=== PATIENT | male | born 1970 | race Caucasian/White ===

== ENCOUNTER 2018-02-06 09:29 | Emergency (ER) | payer OTHER ==
[~2018-02-06] VITALS: Ht 193 cm; Wt 72.5 kg
[~2018-02-06 09:29] MED LIST: NALTREXONE PO; RISP4TAB2 PO; TRAZ50TA35 PO
[2018-02-06 09:45] VITALS: TEMP 36.5; Ht 193 cm; Wt 72.5 kg
[2018-02-06] MEDS ORDERED: LORAZEPAM 2 MG/ML 1 ML VIAL IV STA (09:51)
[2018-02-06] MEDS ORDERED: DIPHTHERIA/TETANUS/PERTUSSIS 0.5 ML SYR/VIAL IM. ONE (10:00)
[2018-02-06] MEDS ORDERED: AMPICILLIN/SULBACTAM SOD INJ 3,000 MG in SODIUM CHLORIDE 0.9% 100ML 100 ML IV ONE (10:00)
--- NOTE | 2018-02-06 10:23 | DIAGNOSTIC IMAGING REPORT ---
CHEST ONE VIEW PORTABLE CLINICAL HISTORY: Agitation. COMPARISON STUDY: Chest radiograph March 15, 2010. FINDINGS: Multiple old right rib fractures are noted. Lung volumes are normal. There is no consolidation or evidence for pulmonary edema. Cardiac size is normal. Mediastinal contours are normal. The appearance of the chest is unchanged. IMPRESSION: No acute cardiopulmonary findings. Electronically signed by: Thony Otto M.D. 02/06/2018 10:22 AM Dictated Date/Time: 02/06/2018 10:21 AM
[2018-02-06 10:26] LABS: ISTAT CREATININE 0.5 mg/dl (0.6-1.3); ISTAT IONIZED CALCIUM 0.98 mmol/l (1.12-1.32); ISTAT POTASSIUM 3.2 mEq/L (3.3-5.0)
--- NOTE | 2018-02-06 10:28 | EMERGENCY ROOM VISIT NOTE ---
History Report prepared by Thais: Celeste Malhotra Under the Supervision of: Dr. Elijah Blum M.D. 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 As per nursing staff, the patient is a known schizophrenic and stopped taking his meds months ago. They report he hears voices nonstop and they keep telling him to kill himself, so he cut himself multiple times on his neck and left arm in attempted Suicide. Nursing states the pt wrote his parents an alarming letter stating to pick him up from his house, however when they got there, all the doors were shut, so they called the police who entered the patient's home through an open window. They found the patient with multiple wounds that he gave himself with an old vj X-Acto knife. The patient denies any HI. His tetanus is not up to date. 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 A total of 10 systems reviewed and were otherwise negative. Past Medical & Surgical Medical Problems: (1) Schizophrenia Family History No pertinent family history Social History Smoking Status: Unknown if Ever Smoked Smokeless Tobacco Use: Yes Alcohol Use: occasionally Marital Status: single Housing Status: lives alone Occupation Status: unemployed Allergies Coded Allergies: No Known Allergies (Verified , 02/06/18) Physical Exam Vital Signs Date Time Temp Pulse Resp B/P (MAP) Pulse Ox O2 Delivery O2 Flow Rate FiO2 02/06/18 10:38 69 18 113/70 100 Room Air 02/06/18 09:45 36.5 64 18 125/78 100 Room Air Physical Exam GENERAL: Patient is in no acute distress. Dirty and disheveled. PSYCH: Currently cooperative. Admits to hearing voices telling him to commit suicide. HEENT: No acute trauma, normocephalic atraumatic, mucous membranes dry, no nasal congestion, no scleral icterus. NECK: No stridor, no adenopathy, no meningismus, trachea is midline. LUNGS: Clear to auscultation bilaterally, no wheeze, no rhonchi, breath sounds equal. HEART: Without murmurs gallops or rubs, regular rate and rhythm. ABDOMEN: Soft, nontender, bowel sounds positive, no hernias, no peritonitis. EXTREMITIES: No cyanosis or edema, full range of motion of all the joints without pain or difficulty. NEUROLOGIC: Oriented x 3, no acute motor or sensory deficits, no focal weakness. SKIN: Left arm has a 10 cm deep laceration to the left mid forearm. Deep structures are exposed. No active bleeding There are some more superficial lacerations to the same arm. One more distal and at least 2 more proximal. Distal lacerations will not require suturing. The more proximal lacerations are somewhat deeper although not as deep as the initial one described. Neck has 2 deep lacerations to the left neck. One around 12-15 cm in length and one approximately 6 cm in length, no active bleeding. There is a superficial laceration to the right neck. Medical Decision & Procedures ER Provider Diagnostic Interpretation: Radiology results as stated below per my review and radiologist interpretation: CHEST ONE VIEW PORTABLE CLINICAL HISTORY: Agitation. COMPARISON STUDY: Chest radiograph March 15, 2010. FINDINGS: Multiple old right rib fractures are noted. Lung volumes are normal. There is no consolidation or evidence for pulmonary edema. Cardiac size is normal. Mediastinal contours are normal. The appearance of the chest is unchanged. IMPRESSION: No acute cardiopulmonary findings. Electronically signed by: Thony Otto M.D. 02/06/2018 10:22 AM Laboratory Results 02/06/18 10:09 02/06/18 10:09 Test 02/06/18 10:09 02/06/18 10:14 Red Blood Count 2.77 M/uL (4.7-6.1) Mean Corpuscular Volume 81.6 fL (80-100) Mean Corpuscular Hemoglobin 31.0 pg (25-34) Mean Corpuscular Hemoglobin Concent 38.1 g/dl (32-36) Est Creatinine Clear Calc Drug Dose 199.2 ml/min Estimated GFR () > 150.0 Estimated GFR (Non- 132.4 BUN/Creatinine Ratio 10.0 (10-20) Calcium Level 7.9 mg/dl (8.5-10.1) Magnesium Level 1.8 mg/dl (1.8-2.4) Total Bilirubin 1.0 mg/dl (0.2-1) Aspartate Amino Transf (AST/SGOT) 26 U/L (15-37) Alanine Aminotransferase (ALT/SGPT) 25 U/L (12-78) Alkaline Phosphatase 58 U/L (45-117) Total Protein 6.2 gm/dl (6.4-8.2) Albumin 2.8 gm/dl (3.4-5.0) Globulin 3.4 gm/dl (2.5-4.0) Albumin/Globulin Ratio 0.8 (0.9-2) Thyroid Stimulating Hormone (TSH) 0.778 uIu/ml (0.300-4.500) Salicylates Level < 1.7 mg/dl (2.8-20) Acetaminophen Level < 2 ug/ml (10-30) Ethyl Alcohol mg/dL < 3.0 mg/dl (0-3) Bedside Hemoglobin 8.5 g/dl (14.0-18.0) Bedside Hematocrit 25 % (42-52) Bedside Sodium 106 mEq/L (135-144) Bedside Potassium 3.2 mEq/L (3.3-5.0) Bedside Chloride 68 mEq/L (101-112) Bedside Total CO2 23 mEq/l (24-31) Anion Gap 19.0 mmol/L (16-25) Bedside Blood Urea Nitrogen 3 mg/dl (7-18) Bedside Creatinine 0.5 mg/dl (0.6-1.3) Bedside Glucose (other) 95 mg/dl (70-99) Bedside Ionized Calcium (Lindsay) 0.98 mmol/l (1.12-1.32) Laboratory results reviewed by me. Medications Administered Medications (Trade) Dose Ordered Sig/Sarah Route Start Time Stop Time Status Last Admin Dose Admin Lorazepam (Ativan Inj) 1 mg NOW STAT IV 02/06/18 09:51 02/06/18 09:53 DC 02/06/18 10:19 1 MG Diphtheria/ Pertussis/Tetanus Vacc (Adacel Inj) 0.5 ml ONCE ONCE IM. 02/06/18 10:00 02/06/18 10:01 DC 02/06/18 10:19 0.5 ML Ampicillin Sodium/ Sulbactam Sodium 3000 mg/Sodium Chloride 108 ml @ 200 mls/hr ONE ONCE IV 02/06/18 10:00 02/06/18 10:32 DC 02/06/18 10:19 200 MLS/HR Sodium Chloride 1,000 ml @ 999 mls/hr Q1H1M STAT IV 02/06/18 10:33 02/06/18 11:33 DC 02/06/18 10:34 999 MLS/HR ED Course 0943: The patient was evaluated in room B7. A complete history and physical exam was performed. 0951: Ordered Ativan Inj 1 mg IV 0955: Discussed the patient's case with Dr. Cyr, Maxillofacial Surgery. He recommends the patient be transferred. 1000: Ordered Ampicillin Sodium/Sulbactam Sodium 3000 mg/Sodium Chloride 108 ml @ 200 mls/hr IV, Adacel Inj 0.5 ml IM 1003: I spoke to the patient's family. They are from [place] and are unaware of any local hospitals, and they agree the patient be transferred where he can receive the best care. 1011: Discussed the patient's case with Dr. Salamanca, [facility] ER. They accepted the patient for transfer and they will go by ground. No major delay in transfer. 1033: Ordered Sodium Chloride 1000 ml @ 999 mls/hr IV Medical Decision Differential diagnosis: Etiologies such as anemia, psychosis, medication noncompliance, dehydration, electrolyte imbalance, deep structure injury to the neck, deep structure injury to the left arm, as well as others were entertained. There is no leukocytosis. The patient is anemic with a hemoglobin of 8.5. Renal panel testing shows a hyponatremia with a sodium of 106. No kidney failure. No hepatitis. The patient appeared to be in a euthyroid state. Chest x-ray did not show pneumonia, mediastinal widening or pneumothorax. Alcohol, Tylenol and aspirin levels were essentially undetectable. The patient received IV Ativan, he received IV saline. He was given IV Unasyn and an Adacel booster IM. The patient has deep lacerations to his left neck that will likely require surgical intervention. The left forearm laceration also is likely to require surgical intervention. I spoke to our specialists here, transfer was recommended. I talked to the physician at the [facility] ED. The patient is being sent to their facility via ground ambulance. The orders and paperwork for transfer were completed. I spoke to the patient and his family about my concerns and findings. The patient is stable for ground transport I believe. His self-inflicted injuries are significant. Medication Reconcilliation Current Medication List: was personally reviewed by me Blood Pressure Screening Patient's blood pressure: Normal blood pressure Blood pressure disposition: Did not require urgent referral Consults Time Called: 0950 Consulting Physician[facility] Returned Call: 0955 Discussed the patient's case with Dr. Cyr, Maxillofacial Surgery. He recommends the patient be transferred. Additional Consults: Time Called: 1000 Consulted Physician: Dr. Salamanca, [facility] Returned Call: 1011 Additional Comments: Discussed the patient's case with Dr. Salamanca, [facility]. They accepted the patient for transfer and they will go by ground. No major delay in transfer. Impression Primary Impression: Suicidal ideation Additional Impressions: Self inflicted wounds to the neck and arm Schizophrenia Dehydration Noncompliance with medication regimen Hyponatremia Critical Care I have personally spent greater than 40 minutes of critical care time in the direct management of this patient. This includes bedside care, interpretation of diagnostic studies, and testing, discussion with consultants, patient, and family members, and other required patient management activities. This 40 minutes is in excess of all separately billable procedures. Scribe Attestation The scribe's documentation has been prepared under my direction and personally reviewed by me in its entirety. I confirm that the note above accurately reflects all work, treatment, procedures, and medical decision making performed by me. Departure Information Dispostion Transfer Acute Care Facility ([facility]) Referrals No Doctor, Assigned (PCP) Problem Qualifiers
[2018-02-06] MEDS ORDERED: SODIUM CHLORIDE 0.9% 1000ML 1,000 ML IV STA (10:33)
[2018-02-06 10:38] VITALS: BP 113/70; PULSE 69; O2SAT 100
[2018-02-06 10:41] LABS: ALBUMIN 2.8 gm/dl (3.4-5.0); ALT/SGPT 25 U/L (12-78); AST/SGOT 26 U/L (15-37); BLOOD UREA NITROGEN 5 mg/dl (7-18); CALCIUM 7.9 mg/dl (8.5-10.1); CARBON DIOXIDE 24 mmol/L (21-32); CREATININE 0.47 mg/dl (0.60-1.40); GLUCOSE 92 mg/dl (70-99); POTASSIUM 3.1 mmol/L (3.5-5.1); SODIUM 108 mmol/L (136-145)
[2018-02-06 10:58] LABS: HEMATOCRIT 22.6 % (42-52); HEMOGLOBIN 8.6 g/dL (14.0-18.0); MEAN CELL VOLUME 81.6 fL (80-100); MEAN CORPUSCULAR HGB CONC 38.1 g/dl (32-36); PLATELET COUNT 133 K/uL (130-400); WHITE BLOOD COUNT 7.14 K/uL (4.8-10.8)
[2018-02-06 10:59] LABS: ALKALINE PHOSPHATASE 58 U/L (45-117); TOTAL PROTEIN 6.2 gm/dl (6.4-8.2)
== END 2018-02-06 11:08 | disposition short-term general hospital (02) ==
LOC: EDBD 09:29 → C.EDB 09:30
DX: R45.851 Suicidal ideations (principal); F20.9 Schizophrenia, unspecified; S51.812A Laceration without foreign body of left forearm, initial encounter; S11.91XA Laceration without foreign body of unspecified part of neck, initial encounter; X78.8XXA Intentional self-harm by other sharp object, initial encounter; E86.0 Dehydration; E87.1 Hypo-osmolality and hyponatremia; Z91.14 Patient's other noncompliance with medication regimen

== ENCOUNTER 2020-07-01 11:07 | Inpatient (IN) ==
--- NOTE | 2020-07-01 11:13 | Emergency Department Note ---
Impression & Plan Auditory hallucinations, Hallucinations, visual, Self-injurious behavior ED Provider Note NAME: CASEY DAMIAN AGE: 50 SEX: M : 1970 ARRIVES VIA: Ambulance INFORMANT: Patient, ED PROVIDER(S): Jesus Alberto Foote MD Chief Complaint: AVH, burning/cutting HPI: Patient did present with concern for auditory and visual visual hallucinations. Patient was also heating up a knife and causing superficial cuts to his upper extremities. Patient denies any SI or HI. The patient does have a prior history of self-harm with intent to kill himself approximately 2 years ago were the patient did cut his throat and his left upper extremity. Patient does not have these thoughts now. The patient denies any HI and has no access to guns or weapons. The patient has had auditory hallucinations but they are not command hallucinations. The patient states that his appetite has been appropriate. Patient sleep is been next as the patient has been waking up several times during the night. The patient states he is compliant with his medications. The patient does use tobacco but denies any drugs or alcohol. The patient is a resident [place]. Patient's tetanus is up-to-date last completed in 2018. Patient has also had some visual hallucinations. ROS: See HPI for pertinent positives and negatives. A total of 10 systems were reviewed and otherwise negative. Past medical history: See below Surgical history: See below Social history: See below Physical Exam: GENERAL: Wearing a mask. NAD, non-toxic. EYE EXAM: Normal conjunctiva. PERRL, no anisocoria and EOM's grossly intact w/o pain. NECK: Supple, no nuchal rigidity, no adenopathy, non-tender. No signs of meningismus. LUNGS: Clear to auscultation. Normal chest wall mechanics. HEART: NSR, no MRG. ABDOMEN: Abdomen soft, non-tender, normo-active bowel sounds, no masses, no rebound or guarding. BACK: No CVA TTP. SKIN: Superficial well-healed cuts to the upper extremities. UPPER EXTREMITIES: Upper extremities are grossly normal with exception of healing superficial cuts as noted above. Compartments are soft neurovascular intact. LOWER EXTREMITIES: Grossly normal, no edema. NEURO EXAM: A&O x3, cranial nerves II-XII grossly intact, normal speech, moves all 4 extremities on command w/o issue. PSYCH: +AVH, no command hallucinations, negative SI/HI Differential diagnoses: Mood disorder, infection, hypoglycemia, electrolyte abnormalities, cardiac sources, intracerebral event, toxicologic, trauma, neurologic, as well as other pathologies. Course: Patient was seen and evaluated the bedside. Full history physical exam was performed. MDM: Patient was seen due to concern for auditory and visual hallucinations. The patient has been practicing burning and cutting superficially. Patient's last tetanus was in 2018. Deemed to be up-to-date. The patient was accepted for inpatient treatment to [facility] [address] after being medically cleared. Covid negative. Patient was ordered nicotine patch. Past Med/Surg History Medical History (Updated 07/01/20 @ 14:42 by Jesus Alberto Foote MD) Schizophrenia Social History Smoking Status: Current every day smoker Feels Safe at Home: Yes Allergies Allergies Allergy/AdvReac Type Severity Reaction Status Date / Time No Known Allergies Allergy Verified 07/01/20 11:28 Home Meds Home Medications Medication Instructions Recorded Confirmed benztropine [Cogentin] 0.5 mg PO BID 07/01/20 07/01/20 chlorpromazine [Thorazine] 50 mg PO TID 07/01/20 07/01/20 haloperidol [Haldol] 20 mg PO BID 07/01/20 07/01/20 trazodone 100 mg PO HS 07/01/20 07/01/20 Results & Data (ED) Vital Signs Vital Signs - 24 hr 07/01/20 11:19 07/01/20 13:15 Temperature 37.2 C Temperature Source Oral Pulse Rate 88 Pulse Rate [Finger] 79 Pulse Rhythm Regular Pulse Rhythm [Finger] Regular Respiratory Rate 18 18 Respiratory Effort / Characteristics Non-Labored Spontaneous Non-Labored Spontaneous Respiratory Depth Normal Normal Respiratory Pattern Regular Regular Blood Pressure 128/73 Blood Pressure [Left Arm] 123/75 Blood Pressure Mean 91 Blood Pressure Mean [Left Arm] 91 Pulse Oximetry 98 97 Oxygen Delivery Method Room Air Room Air Sepsis Recent Fever Within 48 Hours No Sepsis New/Unexplained Change in Mental Status No Sepsis Action Taken by Nursing No Action Required Home Medications Current Medication List: was personally reviewed by me Laboratory Data Attestation: I reviewed the patient's lab results. Result diagrams: 07/01/20 12:47 07/01/20 12:47 Lab Results 07/01/20 07/01/20 07/01/20 Range/Units 12:26 12:26 12:47 WBC 7.85 (4.8-10.8) K/uL RBC 4.94 (4.7-6.1) M/uL Hgb 15.5 (14.0-18.0) g/dL Hct 44.9 (42-52) % MCV 90.9 (80-100) fL MCH 31.4 (25-34) pg MCHC 34.5 (32-36) g/dL RDW Std Deviation 43.2 (36.4-46.3) fL RDW Coeff of [place] 13.1 (11.5-14.5) % Plt Count 261 (130-400) K/uL MPV 9.8 (7.4-10.4) fL Immature Gran % (Auto) 0.3 % Neut % (Auto) 62.8 % Lymph % (Auto) 30.7 % [place]oup % (Auto) 4.3 % Eos % (Auto) 1.5 % Baso % (Auto) 0.4 % Neut # (Auto) 4.93 (1.4-6.5) K/uL Lymph # (Auto) 2.41 (1.2-3.4) K/uL Loup # (Auto) 0.34 (0.11-0.59) K/uL Eos # (Auto) 0.12 (0-0.5) K/uL Baso # (Auto) 0.03 (0-0.2) K/uL Immature Gran # (Auto) 0.02 (0.00-0.02) K/uL Sodium (136-145) mmol/L Potassium (3.5-5.1) mmol/L Chloride (98-107) mmol/L Carbon Dioxide (21-32) mmol/L Anion Gap (3-11) BUN (7-18) mg/dl Creatinine (0.6-1.4) mg/dl Est Cr Clr Drug Dosing ml/min Est GFR ( Amer) Est GFR (Non-Af Amer) BUN/Creatinine Ratio (10-20) Glucose (70-99) mg/dl Calcium (8.5-10.1) mg/dl Total Bilirubin (0.2-1) mg/dl AST (15-37) U/L ALT (12-78) U/L Alkaline Phosphatase (45-117) U/L Total Protein (6.4-8.2) gm/dl Albumin (3.4-5.0) gm/dl Globulin (2.5-4.0) gm/dl Albumin/Globulin Ratio (0.9-2) TSH (0.300-4.500) uIu/ml Urine Color Yellow Urine Appearance Clear (Clear) Urine pH 6.5 (4.5-7.5) Ur Specific [place] 1.010 (1.000-1.030) Urine Protein Negative (Negative) Urine Glucose (UA) Negative (Negative) Urine Ketones Negative (Negative) Urine Blood Negative (Negative) Urine Nitrite Negative (Negative) Urine Bilirubin Negative (Negative) Urine Urobilinogen Negative (Negative) Ur Leukocyte Esterase Negative (Negative) Salicylates (2.8-20) mg/dl Urine Opiates Screen Neg (Neg) Ur Methadone, Qual Neg (Neg) Acetaminophen (10-30) ug/ml Urine Barbiturates Neg (Neg) Ur Phencyclidine (PCP) Neg (Neg) U Amphetamin/Meth Scrn Neg (Neg) MDMA (Ecstasy) Screen Pos H (Neg) U Benzodiazepines Scrn Neg (Neg) Ur Cocaine Metabolite Neg (Neg) U Marijuana (THC) Screen Neg (Neg) Ethyl Alcohol mg/dL (0-3) mg/dl SARS-CoV-2 Ag (Rapid) (Negative) 07/01/20 07/01/20 07/01/20 Range/Units 12:47 12:47 12:47 WBC (4.8-10.8) K/uL RBC (4.7-6.1) M/uL Hgb (14.0-18.0) g/dL Hct (42-52) % MCV (80-100) fL MCH (25-34) pg MCHC (32-36) g/dL RDW Std Deviation (36.4-46.3) fL RDW Coeff of Mars (11.5-14.5) % Plt Count (130-400) K/uL MPV (7.4-10.4) fL Immature Gran % (Auto) % Neut % (Auto) % Lymph % (Auto) % Loup % (Auto) % Eos % (Auto) % Baso % (Auto) % Neut # (Auto) (1.4-6.5) K/uL Lymph # (Auto) (1.2-3.4) K/uL Loup # (Auto) (0.11-0.59) K/uL Eos # (Auto) (0-0.5) K/uL Baso # (Auto) (0-0.2) K/uL Immature Gran # (Auto) (0.00-0.02) K/uL Sodium 138 (136-145) mmol/L Potassium 3.9 (3.5-5.1) mmol/L Chloride 104 (98-107) mmol/L Carbon Dioxide 28 (21-32) mmol/L Anion Gap 7.0 (3-11) BUN 8 (7-18) mg/dl Creatinine 0.90 (0.6-1.4) mg/dl Est Cr Clr Drug Dosing 107.8 ml/min Est GFR ( Amer) 115.0 Est GFR (Non-Af Amer) 99.2 BUN/Creatinine Ratio 8.7 L (10-20) Glucose 114 H (70-99) mg/dl Calcium 9.8 (8.5-10.1) mg/dl Total Bilirubin 0.5 (0.2-1) mg/dl AST 7 L (15-37) U/L ALT 15 (12-78) U/L Alkaline Phosphatase 88 (45-117) U/L Total Protein 7.9 (6.4-8.2) gm/dl Albumin 4.1 (3.4-5.0) gm/dl Globulin 3.8 (2.5-4.0) gm/dl Albumin/Globulin Ratio 1.1 (0.9-2) TSH 1.050 (0.300-4.500) uIu/ml Urine Color Urine Appearance (Clear) Urine pH (4.5-7.5) Ur Specific [place] (1.000-1.030) Urine Protein (Negative) Urine Glucose (UA) (Negative) Urine Ketones (Negative) Urine Blood (Negative) Urine Nitrite (Negative) Urine Bilirubin (Negative) Urine Urobilinogen (Negative) Ur Leukocyte Esterase (Negative) Salicylates 3.7 (2.8-20) mg/dl Urine Opiates Screen (Neg) Ur Methadone, Qual (Neg) Acetaminophen < 2 L (10-30) ug/ml Urine Barbiturates (Neg) Ur Phencyclidine (PCP) (Neg) U Amphetamin/Meth Scrn (Neg) MDMA (Ecstasy) Screen (Neg) U Benzodiazepines Scrn (Neg) Ur Cocaine Metabolite (Neg) U Marijuana (THC) Screen (Neg) Ethyl Alcohol mg/dL < 3.0 (0-3) mg/dl SARS-CoV-2 Ag (Rapid) (Negative) 07/01/20 Range/Units 13:05 WBC (4.8-10.8) K/uL RBC (4.7-6.1) M/uL Hgb (14.0-18.0) g/dL Hct (42-52) % MCV (80-100) fL MCH (25-34) pg MCHC (32-36) g/dL RDW Std Deviation (36.4-46.3) fL RDW Coeff of [place] (11.5-14.5) % Plt Count (130-400) K/uL MPV (7.4-10.4) fL Immature Gran % (Auto) % Neut % (Auto) % Lymph % (Auto) % [place] % (Auto) % Eos % (Auto) % Baso % (Auto) % Neut # (Auto) (1.4-6.5) K/uL Lymph # (Auto) (1.2-3.4) K/uL Loup # (Auto) (0.11-0.59) K/uL Eos # (Auto) (0-0.5) K/uL Baso # (Auto) (0-0.2) K/uL Immature Gran # (Auto) (0.00-0.02) K/uL Sodium (136-145) mmol/L Potassium (3.5-5.1) mmol/L Chloride (98-107) mmol/L Carbon Dioxide (21-32) mmol/L Anion Gap (3-11) BUN (7-18) mg/dl Creatinine (0.6-1.4) mg/dl Est Cr Clr Drug Dosing ml/min Est GFR ( Amer) Est GFR (Non-Af Amer) BUN/Creatinine Ratio (10-20) Glucose (70-99) mg/dl Calcium (8.5-10.1) mg/dl Total Bilirubin (0.2-1) mg/dl AST (15-37) U/L ALT (12-78) U/L Alkaline Phosphatase (45-117) U/L Total Protein (6.4-8.2) gm/dl Albumin (3.4-5.0) gm/dl Globulin (2.5-4.0) gm/dl Albumin/Globulin Ratio (0.9-2) TSH (0.300-4.500) uIu/ml Urine Color Urine Appearance (Clear) Urine pH (4.5-7.5) Ur Specific [place] (1.000-1.030) Urine Protein (Negative) Urine Glucose (UA) (Negative) Urine Ketones (Negative) Urine Blood (Negative) Urine Nitrite (Negative) Urine Bilirubin (Negative) Urine Urobilinogen (Negative) Ur Leukocyte Esterase (Negative) Salicylates (2.8-20) mg/dl Urine Opiates Screen (Neg) Ur Methadone, Qual (Neg) Acetaminophen (10-30) ug/ml Urine Barbiturates (Neg) Ur Phencyclidine (PCP) (Neg) U Amphetamin/Meth Scrn (Neg) MDMA (Ecstasy) Screen (Neg) U Benzodiazepines Scrn (Neg) Ur Cocaine Metabolite (Neg) U Marijuana (THC) Screen (Neg) Ethyl Alcohol mg/dL (0-3) mg/dl SARS-CoV-2 Ag (Rapid) Negative (Negative) Administered Medications Nicotine (Nicotine 21 Mg/24 Hr Tdsy) 21 mg TD QAM JOSEMANUEL Stop: 07/31/20 14:29 Last Admin: 07/01/20 14:37 Dose: 21 mg Documented by: [id number] Discharge Plan Visit Data Chief Complaint: Mental Health Evaluation Stated Complaint: Mental Health Eval ED Provider: Jesus Alberto Foote Discharge Problem: Auditory hallucinations, Hallucinations, visual, Self-injurious behavior Forms Stand Alone Forms: My [facility], Suicide Prevention Resources Prescriptions Prescriptions: No Action haloperidol [Haldol] 10 mg Tablet 20 mg PO BID RF: 0 benztropine [Cogentin] 0.5 mg Tablet 0.5 mg PO BID RF: 0 chlorpromazine [Thorazine] 50 mg Tablet 50 mg PO TID RF: 0 trazodone 100 mg Tablet 100 mg PO HS RF: 0
[2020-07-01 12:38] LABS: Appearance Urine Clear (Clear); Bilirubin Urine Negative (Negative); Blood Urine Negative (Negative); Color Urine Yellow; Glucose Urine UA Negative (Negative); Ketones Urine Negative (Negative); Leukocyte Esterase Urine Negative (Negative); Nitrite Urine Negative (Negative); Protein Urine Negative (Negative); Urobilinogen Urine Negative (Negative); pH Urine 6.5 (4.5-7.5)
[2020-07-01 13:18] LABS: Basophils # (auto) 0.03 K/uL (0-0.2); Basophils % (auto) 0.4 %; Eosinophils # (auto) 0.12 K/uL (0-0.5); Eosinophils % (auto) 1.5 %; Hematocrit (blood only) 44.9 % (42-52); Hemoglobin 15.5 g/dL (14.0-18.0); Immature Granulocytes # (auto) 0.02 K/uL (0.00-0.02); Immature Granulocytes % (auto) 0.3 %; Lymphocytes # (auto) 2.41 K/uL (1.2-3.4); Lymphocytes % (auto) 30.7 %; Mean Corpuscular Hemoglobin 31.4 pg (25-34); Mean Corpuscular Hgb Conc 34.5 g/dL (32-36); Mean Corpuscular Volume 90.9 fL (80-100); Mean Platelet Volume 9.8 fL (7.4-10.4); Monocytes # (auto) 0.34 K/uL (0.11-0.59); Monocytes % (auto) 4.3 %; Neutrophils # (auto) 4.93 K/uL (1.4-6.5); Neutrophils % (auto) 62.8 %; Platelet Count 261 K/uL (130-400); RDW Coefficient of Variation 13.1 % (11.5-14.5); RDW Standard Deviation 43.2 fL (36.4-46.3); Red Blood Count 4.94 M/uL (4.7-6.1); White Blood Count 7.85 K/uL (4.8-10.8)
[2020-07-01 13:23] LABS: Albumin Level 4.1 gm/dl (3.4-5.0); BUN Creatinine Ratio 8.7 (10-20); Calcium 9.8 mg/dl (8.5-10.1); Creatinine Clr Calc Pharmacy 107.8 ml/min; Est GFR (Non-African American) 99.2; Potassium 3.9 mmol/L (3.5-5.1)
[2020-07-01 13:26] LABS: Amphetamines+Metham, Urine Neg (Neg); Barbiturates, Urine Neg (Neg); Benzodiazepine, Urine Neg (Neg); Cocaine, Urine Neg (Neg); MDMA (Ecstacy), Urine Pos (Neg); Methadone, Urine Neg (Neg); Opiate, Urine Neg (Neg); Phencyclidine, Urine Neg (Neg)
[2020-07-01 13:27] LABS: Acetaminophen < 2 ug/ml (10-30); Salicylate 3.7 mg/dl (2.8-20)
[2020-07-01 13:33] LABS: Albumin Globulin Ratio 1.1 (0.9-2); Bilirubin,Total 0.5 mg/dl (0.2-1); Globulin 3.8 gm/dl (2.5-4.0); Thyroid Stimulating Hormone 1.05 uIu/ml (0.300-4.500); Total Protein 7.9 gm/dl (6.4-8.2)
[2020-07-01] MEDS ORDERED: NICOTINE 21 MG/24 HR TDSY TD SCH (14:30)
[2020-07-01] MEDS ORDERED: BISMUTH SUBSALICYLATE LIQD 236 ML PO PRN (15:21)
[2020-07-01] MEDS ORDERED: MAGNESIUM HYDROXIDE SUSP 30 ML UDC PO PRN (15:21)
[2020-07-01] MEDS ORDERED: hydrOXYzine HCl 25 MG TAB PO PRN ×2 (15:21)
[2020-07-01] MEDS ORDERED: ACETAMINOPHEN 325 MG TAB PO PRN (15:21)
[2020-07-01] MEDS ORDERED: ALUMINUM/MAGNESIUM SUSP 30 ML UDC PO PRN (15:21)
[2020-07-01] MEDS ORDERED: SODIUM CHLORIDE 0.65% NA SOLN 45 ML (OCEAN) PRN (15:21)
[2020-07-01] MEDS: BENZTROPINE MESYLATE 0.5 MG TAB PO SCH (20:23)
[2020-07-01] MEDS: haloperidoL 5 MG TAB PO SCH (20:24)
[2020-07-01] MEDS: chlorproMAZINE HCL 25 MG TAB PO SCH (20:24)
[2020-07-01] MEDS: traZODone HCL 100 MG TAB PO SCH (20:24)
--- NOTE | 2020-07-02 08:34 | History & Physical ---
Date of Service July 02, 2020 Impression / Recommendations Impression 50-year-old single male who lives in a [facility], has a history of schizophrenia with a very serious suicide attempt approximately 2 years ago by cutting his neck, who is admitted voluntarily with self injury by cutting/burning in the context of increased auditory and visual hallucinations. Inpatient treatment is medically necessary due to the severity of symptoms and risk for suicide/self-harm if discharged. (1) Schizophrenia: 07/02 -continue voluntary hospitalization, every 15 minute checks for safety. -Encourage group participation, work on healthy coping skills and discharge safety plan. -Coordinate care with NOREEN Smith, at [facility]. Patient currently stating he is not interested in medication changes, but would like to explore options to better control his psychotic symptoms -Coordinate with his case picker and [facility] staff. (2) Self-injurious behavior: 07/02 -patient denies pain or discomfort, no signs of infection. May use bacitracin ointment if needed. Patient able to contract for safety in the hospital. Continue to work on healthy coping skills and discharge safety plan. Risk Factors Assessment Male: Yes : Yes Do You Have Access To A Gun?: No Health Problems: No Mental Health Diagnoses: Yes Substance Use Disorders: No Previous Attempt: Yes Previous Attempt; Highly Lethal: Yes Previous Psychiatric Hospitalization: Yes Hopelessness: Yes Smoker: Yes Protective Factors Assessment : No Responsible for Young Children: No Employed: No Stable Relationships: No Supportive Family: No Good Rapport with Provider: Yes Psychiatric History Identifying Data CASEY DAMIAN is a 50-year-old M who currently lives in [facility], has a history of schizophrenia, and was admitted on 07/01/20 15:21 on a 201 voluntary commitment for self injury by cutting. Chief Complaint "I used a knife to make nugent on my arm". History of Present Illness Patient was sent in by NOREEN Smith, at [facility] after an appointment yesterday during which she disclosed self injury. He reported feeling overwhelmed over the weekend, stating he did not "want a lifetime of pills," wanted to be able to come off medication at some point, had been isolating more, and was still hearing voices daily. He showed her fresh cuts on his arm and said he had burned himself, which he did to protect himself. He said he used a chief librarian branch or department knife from the kitchen, he did it up, and used it to make longer nugent in his skin. He reported having a night terror where he was paralyzed and could not form words. He was disorganized, talking about "trench coats" that he need to protect himself from. He said he was not sure he could keep himself safe, and agreed to come to the hospital for admission. In the ER, he said he had caught/burned himself by heating a knife on the stove and then cutting his forearm with it, and that he did this to protect himself from "the evils of the world." His lacerations were superficial and did not require medical intervention. He said that he still believes he needs to cut or burn himself "for protection," relating this to hearing voices and seeing people daily. Admission labs notable for UDS + MDMA. He is admitted voluntarily. On my assessment, he states that he is "getting settled in." He struggles to answer questions directly, for example when asked about his mood says "that's a tricky question." He said he used a hot knife to make alfred on his forearm, which are "meant to protect me." When asked what he needs protection from, he says "I see things, people, the worst ones wear a white shirt, black jacket and black pants, I've been seeing those for a while, authority figures. The others ones are olive green, ..." He says that these people "talk all day long," and tell him that he needs to "leave [place], move elsewhere." He tries to ignore them, but feels threatened by them. He often sleeps excessively to try to deal with them. AVH occur daily, and have been more intense recently. He thinks that if he were not here in the hospital, he would continue to hurt himself for "protection." He denies that he wants to , but does not think that he could refrain from hurting himself if not in the hospital. He states that he has been on haloperidol and chlorpromazine for years, and that they are helpful, although they do cause some sedation. He says he was on risperidone, but it was stopped over the summer. He denies ever missing doses, and does not want to change his medications. He says that he has no family involvement, but has 2 friends who are supportive, although both are moving out of the area. Past Psychiatric History Previous Psych History: Long history of schizophrenia. Has received psychiatric services off and on since 1994. Initial intake at [facility] 07/04/2018: He had just been released from the [facility], where he had been hospitalized for 4.5 months for auditory hallucinations and a suicide attempt. He was living at the [facility]. He said he had started hearing voices and then cut his neck in a suicide attempt after going off of Seroquel abruptly, as he thought the pharmacist was not giving him the correct medication. Current Psychiatric Diagnosis: Schizophrenia Outpatient Services: Liya Dowell PA-C, at [facility] since 06/2018 Therapy with Freda at [facility] psych [facility] Previous [facility]: [facility] hospitalizations [facility] about 10 years ago 2 hospitalizations in [place] in 1994 Do You Have Access To A Gun?: No History of Previous Suicide Attempt: Yes Describe Attempts in the Past: Cut his throat 01/2018, was transferred by helicopter to [facility] Past Medication Trials: Quetiapine -2018, stopped it prior to decompensating, attempting suicide by cutting his neck, and being admitted to the [facility] Risperidone Ziprasidone Haloperidol Chlorpromazine Allergies Allergy/AdvReac Type Severity Reaction Status Date / Time No Known Allergies Allergy Verified 07/01/20 11:28 Home Medications Medication Instructions Recorded Confirmed Type benztropine [Cogentin] 0.5 mg PO BID 07/01/20 07/01/20 History chlorpromazine [Thorazine] 50 mg PO TID 07/01/20 07/01/20 History haloperidol [Haldol] 20 mg PO BID 07/01/20 07/01/20 History trazodone 100 mg PO HS 07/01/20 07/01/20 History Family History Family History of: Doesn't Know Alcohol History Hx of Alcohol Use Over the Past 12 Months: No AUDIT Total Score: 0 Smoking Use Have You Smoked or Used Tobacco Products in the Last 30 Days: Yes tobacco type: cigarettes Smoking Status: Current every day smoker Smoking packs per day: 1 Substance History Hx of Prescription Med Misuse Over the Past 12 Months: No Hx of Over the Counter Med Misuse Over the Past 12 Months: No Hx of Inhalent Misuse Over the Past 12 Months: No Hx of Organic Substance Use Over the Past 12 Months: No Hx of Illegal Substances/Street Drug Use Over Past 12 Months: No Problems as a Result of Past Substance Use: None Identified Remote use of heroin, LSD, ecstasy, marijuana per outpatient records Personal History Living Arrangements: Supervised Living Living Arrangements Comments: [facility] about [facility] years. He has previously lived in [place] [facility] and several different states, but has been in [place] x 25 years. Childhood: Father was in the [place], so they moved frequently. Born in [place] [place] [facility], then lived in [place], [place], and [place]. The family adopted his sister who is 2 years younger than him when they lived in [place] [facility]. 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, but did not complete it) Employment Status: Disabled Marital Status: Single Beliefs That Will Affect Care: None Current Legal Problems: No Hx Legal Problems: Yes (Arrested once about 10 years ago for disorderly conduct) Hx Traumatic Life Events: No Patient History Medical History (Updated 07/02/20 @ 08:34 by Bibi Isabel MD) Schizophrenia Social History Smoking Status: Current every day smoker Preferred Language: Danish Communication Ability: Effective Automatic Furnace Operator Required: No Beliefs That Will Affect Care: None Feels Safe at Home: Yes Assistive Devices: Glasses Review of Systems Review of Systems: All systems reviewed & are unremarkable except as noted in Subjective Physical Exam Psychiatric: Orientation: alert and cooperative Apperance: appropriately dressed, + disheveled and appeared stated age Tall thin white male, casually dressed in black jeans and a plaid button up shirt. Facial stubble and unwashed graying hair that is mildly unkempt. Wearing slippers, tapping his feet throughout the interview. Seated on the edge of the bed in no acute distress. Calm, cooperative, and pleasant. Eye Contact: + fair eye contact Motor Behavior: steady gait and station Soft-spoken Affect: + blunted affect "That's a tricky question." Slightly disorganized, at times answering with unrelated information vague, paucity of thought content Suicidal Thoughts: denies suicidal thoughts But reports urges to self injure by cutting and burning as a way to "protect" himself from unseen others, and unable to contract for safety outside of the hospital Homicidal Thoughts: denies homicidal thoughts Hallucinations: + auditory hallucinations and + visual hallucinations Cognition: recent memory grossly intact, attention grossly intact and language grossly intact Estimated Intelligence: consistent with education level Insight: + impaired insight Judgement: + impaired judgement Vital Signs (Past 24 Hours): Last Vital Signs Temp 36.6 C 07/02/20 06:40 Pulse 105 H 07/02/20 06:41 Resp 16 07/02/20 06:40 BP 92/60 L 07/02/20 06:41 Pulse Ox 97 07/01/20 13:15 Exam Statement: A physical exam was performed in the ER prior to admission to the unit by Dr. Jesus Alberto Foote. I accept that physical as correct/medical clearance for the inpatient physical exam. Results & Data ([facility]) Laboratory Results Laboratory Results - last 24 hr 07/01/20 07/01/20 07/01/20 12:26 12:26 12:26 WBC RBC Hgb Hct MCV MCH MCHC RDW Std Deviation RDW Coeff of Mars Plt Count MPV Immature Gran % (Auto) Neut % (Auto) Lymph % (Auto) Shannon % (Auto) Eos % (Auto) Baso % (Auto) Neut # (Auto) Lymph # (Auto) Shannon # (Auto) Eos # (Auto) Baso # (Auto) Immature Gran # (Auto) Sodium Potassium Chloride Carbon Dioxide Anion Gap BUN Creatinine Est Cr Clr Drug Dosing Est GFR ( Amer) Est GFR (Non-Af Amer) BUN/Creatinine Ratio Glucose Calcium Total Bilirubin AST ALT Alkaline Phosphatase Total Protein Albumin Globulin Albumin/Globulin Ratio TSH Urine Color Yellow Urine Appearance Clear Urine pH 6.5 Ur Specific Brandon 1.010 Urine Protein Negative Urine Glucose (UA) Negative Urine Ketones Negative Urine Blood Negative Urine Nitrite Negative Urine Bilirubin Negative Urine Urobilinogen Negative Ur Leukocyte Esterase Negative Salicylates Urine Opiates Screen Neg Ur Methadone, Qual Neg Acetaminophen Urine Barbiturates Neg Ur Phencyclidine (PCP) Neg U Amphetamin/Meth Scrn Neg Urine MDEA Pending MDMA (Ecstasy) Screen Pos H MDMA Pending Urine MDMA Pending U Benzodiazepines Scrn Neg Ur Cocaine Metabolite Neg U Marijuana (THC) Screen Neg Ethyl Alcohol mg/dL SARS-CoV-2 Ag (Rapid) 07/01/20 07/01/20 07/01/20 12:47 12:47 12:47 WBC 7.85 RBC 4.94 Hgb 15.5 Hct 44.9 MCV 90.9 MCH 31.4 MCHC 34.5 RDW Std Deviation 43.2 RDW Coeff of Mars 13.1 Plt Count 261 MPV 9.8 Immature Gran % (Auto) 0.3 Neut % (Auto) 62.8 Lymph % (Auto) 30.7 Shannon % (Auto) 4.3 Eos % (Auto) 1.5 Baso % (Auto) 0.4 Neut # (Auto) 4.93 Lymph # (Auto) 2.41 Shannon # (Auto) 0.34 Eos # (Auto) 0.12 Baso # (Auto) 0.03 Immature Gran # (Auto) 0.02 Sodium 138 Potassium 3.9 Chloride 104 Carbon Dioxide 28 Anion Gap 7.0 BUN 8 Creatinine 0.90 Est Cr Clr Drug Dosing 107.8 Est GFR ( Amer) 115.0 Est GFR (Non-Af Amer) 99.2 BUN/Creatinine Ratio 8.7 L Glucose 114 H Calcium 9.8 Total Bilirubin 0.5 AST 7 L ALT 15 Alkaline Phosphatase 88 Total Protein 7.9 Albumin 4.1 Globulin 3.8 Albumin/Globulin Ratio 1.1 TSH 1.050 Urine Color Urine Appearance Urine pH Ur Specific Brandon Urine Protein Urine Glucose (UA) Urine Ketones Urine Blood Urine Nitrite Urine Bilirubin Urine Urobilinogen Ur Leukocyte Esterase Salicylates 3.7 Urine Opiates Screen Ur Methadone, Qual Acetaminophen < 2 L Urine Barbiturates Ur Phencyclidine (PCP) U Amphetamin/Meth Scrn Urine MDEA MDMA (Ecstasy) Screen MDMA Urine MDMA U Benzodiazepines Scrn Ur Cocaine Metabolite U Marijuana (THC) Screen Ethyl Alcohol mg/dL SARS-CoV-2 Ag (Rapid) 07/01/20 07/01/20 12:47 13:05 WBC RBC Hgb Hct MCV MCH MCHC RDW Std Deviation RDW Coeff of Mars Plt Count MPV Immature Gran % (Auto) Neut % (Auto) Lymph % (Auto) Shannon % (Auto) Eos % (Auto) Baso % (Auto) Neut # (Auto) Lymph # (Auto) Shannon # (Auto) Eos # (Auto) Baso # (Auto) Immature Gran # (Auto) Sodium Potassium Chloride Carbon Dioxide Anion Gap BUN Creatinine Est Cr Clr Drug Dosing Est GFR ( Amer) Est GFR (Non-Af Amer) BUN/Creatinine Ratio Glucose Calcium Total Bilirubin AST ALT Alkaline Phosphatase Total Protein Albumin Globulin Albumin/Globulin Ratio TSH Urine Color Urine Appearance Urine pH Ur Specific Brandon Urine Protein Urine Glucose (UA) Urine Ketones Urine Blood Urine Nitrite Urine Bilirubin Urine Urobilinogen Ur Leukocyte Esterase Salicylates Urine Opiates Screen Ur Methadone, Qual Acetaminophen Urine Barbiturates Ur Phencyclidine (PCP) U Amphetamin/Meth Scrn Urine MDEA MDMA (Ecstasy) Screen MDMA Urine MDMA U Benzodiazepines Scrn Ur Cocaine Metabolite U Marijuana (THC) Screen Ethyl Alcohol mg/dL < 3.0 SARS-CoV-2 Ag (Rapid) Negative Current Inpatient Medications Current Inpatient Medications: Current Inpatient Medications Acetaminophen (Acetaminophen 325 Mg Tab) 650 mg PO Q4H PRN PRN Reason: Headache or Minor Fever Stop: 07/31/20 15:20 Al Hydrox/Mg Hydrox/Simethicone (Aluminum/Magnesium Susp 30 Ml Udc) 30 ml PO Q4H PRN PRN Reason: GI Upset Stop: 07/31/20 15:20 Benztropine Mesylate (Benztropine Mesylate 0.5 Mg Tab) 0.5 mg PO BID JOSEMANUEL Stop: 07/31/20 20:59 Last Admin: 07/01/20 20:23 Dose: 0.5 mg Documented by: Bismuth Subsalicylate (Bismuth Subsalicylate Liqd 236 Ml) 15 ml PO PRN PRN PRN Reason: Loose Stool Stop: 07/31/20 15:20 Chlorpromazine HCl (Chlorpromazine Hcl 25 Mg Tab) 50 mg PO TID JOSEMANUEL Stop: 07/31/20 20:59 Last Admin: 07/01/20 20:24 Dose: 50 mg Documented by: Haloperidol (Haloperidol 5 Mg Tab) 20 mg PO BID JOSEMANUEL Stop: 07/31/20 20:59 Last Admin: 07/01/20 20:24 Dose: 20 mg Documented by: Hydroxyzine HCl (Hydroxyzine Hcl 25 Mg Tab) 50 mg PO HSZ PRN PRN Reason: Insomnia Stop: 07/31/20 15:20 Last Admin: 07/02/20 00:18 Dose: 50 mg Documented by: Hydroxyzine HCl (Hydroxyzine Hcl 25 Mg Tab) 25 mg PO Q4H PRN PRN Reason: Anxiety Stop: 07/31/20 15:20 Magnesium Hydroxide (Magnesium Hydroxide Susp 30 Ml Udc) 30 ml PO DAILY PRN PRN Reason: Constipation Stop: 07/31/20 15:20 Miscellaneous (Remove Nicoderm Patch) 1 ea N/A DAILY@[id number] [facility] Stop: 08/01/20 08:58 Nicotine (Nicotine 21 Mg/24 Hr Tdsy) 21 mg TD QAM [facility] Stop: 08/01/20 08:59 Sodium Chloride (Sodium Chloride 0.65% Na Soln 45 Ml ([place])) 1 - 2 sprays NA PRN PRN PRN Reason: Nasal Dryness/Congestion Stop: 07/31/20 15:20 Trazodone HCl (Trazodone Hcl 100 Mg Tab) 100 mg PO HS [facility] Stop: 07/31/20 20:59 Last Admin: 07/01/20 20:24 Dose: 100 mg Documented by:
[2020-07-02] MEDS: NICOTINE 21 MG/24 HR TDSY TD SCH (08:46)
[2020-07-02] MEDS: haloperidoL 5 MG TAB PO SCH ×2 (08:47→20:35)
[2020-07-02] MEDS: BENZTROPINE MESYLATE 0.5 MG TAB PO SCH ×2 (08:47→20:35)
[2020-07-02] MEDS: chlorproMAZINE HCL 25 MG TAB PO SCH ×3 (08:47→20:35)
[2020-07-02] MEDS: traZODone HCL 100 MG TAB PO SCH (20:35)
--- NOTE | 2020-07-03 08:49 | Psychiatric Progress Note ---
Date of Service July 03, 2020 Impression / Recommendations Impression 50-year-old single male who lives in a [email or web address] intermediate, has a history of schizophrenia with a very serious suicide attempt approximately 2 years ago by cutting his neck, who is admitted voluntarily with self injury by cutting/burning in the context of increased auditory, visual hallucinations, and paranoia. He is willing for a trial of paliperidone to target psychotic symptoms. Inpatient treatment is medically necessary due to the severity of symptoms and risk for suicide/self-harm if discharged. (1) Schizophrenia: 07/02 -Continue voluntary hospitalization, every 15 minute checks for safety. -Encourage group participation, work on healthy coping skills and discharge safety plan. -Coordinate care with NOREEN Smith, at [place]. Patient currently stating he is not interested in medication changes, but would like to explore options to better control his psychotic symptoms. -Coordinate with his case liner and intermediate staff. 07/03 -spoke with NOREEN Smith, regarding patient's history and medication options. Although his mood has been fairly stable over the past couple of years, he has had mild depressive symptoms and persistent psychosis, which worsened with disruption of his routine due to the pandemic. He has been on high-dose haloperidol, and initially the addition of chlorpromazine appeared beneficial, but recently psychosis has been worsening. Discussed medication options with the patient, including olanzapine and paliperidone. After discussion of risks, benefits, and side effects, he elected for a trial of paliperidone. Will start 3 mg daily, titrate as tolerated, while decreasing haloperidol and chlorpromazine doses. Discussed risk of metabolic syndrome, movement disorders, and the need to monitor fasting labs. Order FLP and FG for tomorrow. (2) Self-injurious behavior: 07/02 -patient denies pain or discomfort, no signs of infection. May use bacitracin ointment if needed. Patient able to contract for safety in the hospital. Continue to work on healthy coping skills and discharge safety plan. Risk Factors Assessment Male: Yes : Yes Do You Have Access To A Gun?: No Health Problems: No Mental Health Diagnoses: Yes Substance Use Disorders: No Previous Attempt: Yes Previous Attempt; Highly Lethal: Yes Previous Psychiatric Hospitalization: Yes Hopelessness: Yes Smoker: Yes Protective Factors Assessment : No Responsible for Young Children: No Employed: No Stable Relationships: No Supportive Family: No Good Rapport with Provider: Yes Interval History Chief Complaint "I had breakfast, it was very good". Review of Systems Sleep Information Total Hours of Sleep: 7.5 Meal Information Percent Meal Consumed - Breakfast: 100 Percent Meal Consumed - Lunch: 100 Percent Meal Consumed - Dinner: 100 Subjective Subjective Patient was seen & assessed and interval progress reviewed with treatment team. Staff reports he declined all groups except for one yesterday, and spent most of the day in his room. He reported ongoing auditory hallucinations of voices, and talked about needing to "watch the evil things around me." He said he felt safe in the hospital and did not have urges to harm himself. He took medications without difficulty. [facility] ID was contacted and questioned whether the patient would need a BCM or administrative case liner. Today, he reports that the food has been very good, and he has been trying to participate in groups. He struggles to talk about his mood, stating he does not know how he feels, but with ongoing discussion says he is "kind of even keel, trying to go slow and steady, but sometimes my voices get in the way." He says he has been "asking them what they say, and they keep ignoring me." He says in the past, the voices may threats against him, but denies that that is occurring now. He continues to see people wearing "costumes taken from a movie." He is more willing to consider medication adjustments today, and called his outpatient PA-Laith Dowell to discuss options and his med history. She reports he is often paranoid about medications and this has limited his willingness to try different medications. He has not had significant mood symptoms and typically presents as calm and pleasant, with hallucinations and delusions being his primary symptoms. He has reported fears of showering and hygiene is often limited. He also struggles at night and when he has to use public transportation/use the bus. He had been on Seroquel prior to stopping it, cutting his throat, and being hospitalized 2 years ago, and since then has been on high dose haloperidol, and chlorpromazine was added for augmentation. Reviewed his past med trials - Seroquel, Risperdal and Geodon were the only medications he could recall at his [facility] intake. She thinks the pandemic has negatively impacted him due to disruption of his routine (used to go to the library regularly, now more isolated). Reviewed options of a different atypical, such as paliperidone or olanzapine, agreed with choosing an atypical with antidepressant effects. Physical Exam Psychiatric Orientation: alert and cooperative Apperance: appropriately dressed and appeared stated age Tall thin white male, dressed in the same clothes as yesterday, limited hygiene and grooming. Seated in no acute distress on the edge of his bed. Eye Contact: + fair eye contact Motor Behavior: steady gait and station and no abnormal motor movements Soft-spoken Affect: + blunted affect I don't know, kind of even keel." Thought Content: + preoccupation and + persecution Suicidal Thoughts: denies suicidal thoughts Homicidal Thoughts: denies homicidal thoughts Hallucinations: + auditory hallucinations and + visual hallucinations Cognition: attention grossly intact and language grossly intact Insight: + fair insight Judgement: + fair judgement Vital Signs (Past 24 Hours) Last Vital Signs Temp 36.6 C 07/03/20 06:40 Pulse 99 H 07/03/20 06:41 Resp 16 07/03/20 06:40 BP 116/78 07/03/20 06:41 Pulse Ox 97 07/01/20 13:15 Results & Data ([facility]) Current Inpatient Medications Current Inpatient Medications: Current Inpatient Medications Acetaminophen (Acetaminophen 325 Mg Tab) 650 mg PO Q4H PRN PRN Reason: Headache or Minor Fever Stop: 07/31/20 15:20 Al Hydrox/Mg Hydrox/Simethicone (Aluminum/Magnesium Susp 30 Ml Udc) 30 ml PO Q4H PRN PRN Reason: GI Upset Stop: 07/31/20 15:20 Benztropine Mesylate (Benztropine Mesylate 0.5 Mg Tab) 0.5 mg PO BID JOSEMANUEL Stop: 07/31/20 20:59 Last Admin: 07/02/20 20:35 Dose: 0.5 mg Documented by: Bismuth Subsalicylate (Bismuth Subsalicylate Liqd 236 Ml) 15 ml PO PRN PRN PRN Reason: Loose Stool Stop: 07/31/20 15:20 Chlorpromazine HCl (Chlorpromazine Hcl 25 Mg Tab) 50 mg PO TID JOSEMANUEL Stop: 07/31/20 20:59 Last Admin: 07/02/20 20:35 Dose: 50 mg Documented by: Haloperidol (Haloperidol 5 Mg Tab) 20 mg PO BID JOSEMANUEL Stop: 07/31/20 20:59 Last Admin: 07/02/20 20:35 Dose: 20 mg Documented by: Hydroxyzine HCl (Hydroxyzine Hcl 25 Mg Tab) 50 mg PO HSZ PRN PRN Reason: Insomnia Stop: 07/31/20 15:20 Last Admin: 07/02/20 00:18 Dose: 50 mg Documented by: Hydroxyzine HCl (Hydroxyzine Hcl 25 Mg Tab) 25 mg PO Q4H PRN PRN Reason: Anxiety Stop: 07/31/20 15:20 Magnesium Hydroxide (Magnesium Hydroxide Susp 30 Ml Udc) 30 ml PO DAILY PRN PRN Reason: Constipation Stop: 07/31/20 15:20 Miscellaneous (Remove Nicoderm Patch) 1 ea N/A DAILY@[id number] Stop: 08/01/20 08:58 Last Admin: 07/02/20 08:47 Dose: 1 ea Documented by: Nicotine (Nicotine 21 Mg/24 Hr Tdsy) 21 mg TD QAM JOSEMANUEL Stop: 08/01/20 08:59 Last Admin: 07/02/20 08:46 Dose: 21 mg Documented by: Sodium Chloride (Sodium Chloride 0.65% Na Soln 45 Ml ([place])) 1 - 2 sprays NA PRN PRN PRN Reason: Nasal Dryness/Congestion Stop: 07/31/20 15:20 Trazodone HCl (Trazodone Hcl 100 Mg Tab) 100 mg PO HS JOSEMANUEL Stop: 07/31/20 20:59 Last Admin: 07/02/20 20:35 Dose: 100 mg Documented by: Mental Health & Subst Abuse Tx Psychiatrist Name of Psychiatrist: Liya Guy Psychiatrist's Psychiatric Appointment Comment: [id number] [facility] [place] Therapist Name of Therapist: Enmanuel Reeves Therapist's Date of Therapist Appointment: 07/13/20 Therapy Appointment Comment: [id number] [facility] [place] Prepress Specialist Name of Prepress Specialist: Sebastian Madera Phone Number for Prepress Specialist: [phone] Post Discharge Appointments Partial or Psych Rehab Name of Partial or Psych Rehab: [facility] Date of Appointment at Partial or Psych Rehab: 07/09/20
[2020-07-03] MEDS: chlorproMAZINE HCL 25 MG TAB PO SCH ×3 (08:57→20:00)
[2020-07-03] MEDS: haloperidoL 5 MG TAB PO SCH ×2 (08:57→19:59)
[2020-07-03] MEDS: BENZTROPINE MESYLATE 0.5 MG TAB PO SCH ×2 (08:57→19:59)
[2020-07-03] MEDS: NICOTINE 21 MG/24 HR TDSY TD SCH (08:58)
[2020-07-03] MEDS: PALIPERIDONE 3 MG TABCR PO SCH (13:47)
[2020-07-03] MEDS: traZODone HCL 100 MG TAB PO SCH (20:00)
[2020-07-04 08:42] LABS: MDA negative; MDEA negative; MDMA (Ecstasy) Urine, Confirm negative
[2020-07-04 08:45] LABS: Glucose Fasting 95 mg/dl (70-99)
[2020-07-04 08:51] LABS: Chol HDL Ratio 3; Cholesterol 123 mg/dl (0-200); HDL Cholesterol 37 mg/dl; LDL Cholesterol Calculated 68 mg/dl; Triglycerides 90 mg/dl (0-150); VLDL Cholesterol 18 mg/dl
[2020-07-04] MEDS: haloperidoL 5 MG TAB PO SCH (08:51)
[2020-07-04] MEDS: BENZTROPINE MESYLATE 0.5 MG TAB PO SCH ×2 (08:51→21:08)
[2020-07-04] MEDS: PALIPERIDONE 3 MG TABCR PO SCH (08:52)
[2020-07-04] MEDS: chlorproMAZINE HCL 25 MG TAB PO SCH ×3 (08:53→21:08)
[2020-07-04] MEDS: NICOTINE 21 MG/24 HR TDSY TD SCH (08:57)
--- NOTE | 2020-07-04 09:13 | Psychiatric Progress Note ---
Date of Service July 04, 2020 Impression / Recommendations Impression 50-year-old single male who lives in a [employer] prison, has a history of schizophrenia with a very serious suicide attempt approximately 2 years ago by cutting his neck, who is admitted voluntarily with self injury by cutting/burning in the context of increased auditory, visual hallucinations, and paranoia. We are cross tapering from Haldol and Thorazine to paliperidone to target psychotic symptoms. Inpatient treatment is medically necessary due to the severity of symptoms and risk for suicide/self-harm if discharged. (1) Schizophrenia: 07/02 -Continue voluntary hospitalization, every 15 minute checks for safety. -Encourage group participation, work on healthy coping skills and discharge safety plan. -Coordinate care with NOREEN Smith, at [place]. Patient currently stating he is not interested in medication changes, but would like to explore options to better control his psychotic symptoms. -Coordinate with his showcase trimmer and prison staff. 07/03 -spoke with NOREEN Smith, regarding patient's history and medication options. Although his mood has been fairly stable over the past couple of years, he has had mild depressive symptoms and persistent psychosis, which worsened with disruption of his routine due to the pandemic. He has been on high-dose haloperidol, and initially the addition of chlorpromazine appeared beneficial, but recently psychosis has been worsening. Discussed medication options with the patient, including olanzapine and paliperidone. After discussion of risks, benefits, and side effects, he elected for a trial of paliperidone. Will start 3 mg daily, titrate as tolerated, while decreasing haloperidol and chlorpromazine doses. Discussed risk of metabolic syndrome, movement disorders, and the need to monitor fasting labs. Order FLP and FG for tomorrow. 07/04 -continue cross taper; reduce Haldol to 10 mg every morning and 15 mg at bedtime for tomorrow, and increase paliperidone to 6 mg daily for tomorrow. -Reviewed FLP and FG for monitoring on an atypical antipsychotic; all within normal limits. -Continue medically necessary private room for psychosis, and encourage patient to attend and participate in groups as able, although he is easily overstimulated, and may need breaks from the milieu. (2) Self-injurious behavior: 07/02 -patient denies pain or discomfort, no signs of infection. May use bacitracin ointment if needed. Patient able to contract for safety in the hospital. Continue to work on healthy coping skills and discharge safety plan. Risk Factors Assessment Male: Yes : Yes Do You Have Access To A Gun?: No Health Problems: No Mental Health Diagnoses: Yes Substance Use Disorders: No Previous Attempt: Yes Previous Attempt; Highly Lethal: Yes Previous Psychiatric Hospitalization: Yes Hopelessness: Yes Smoker: Yes Protective Factors Assessment : No Responsible for Young Children: No Employed: No Stable Relationships: No Supportive Family: No Good Rapport with Provider: Yes Interval History Chief Complaint "Oh, okay". Review of Systems Sleep Information Total Hours of Sleep: 7 Meal Information Percent Meal Consumed - Breakfast: 100 Percent Meal Consumed - Lunch: 100 Percent Meal Consumed - Dinner: 50 Subjective Subjective Patient was seen & assessed and interval progress reviewed with nursing and social work. Staff report he was able to attend some groups, but declined others, and appeared overwhelmed by some louder patients in the milieu. He spent most of the day isolating in his room, awake, distracted by hallucinatio ns. He was compliant with medications, ate and slept well. On my assessment he was seen in his room, where he is lying in bed awake. He states that he slept poorly overnight, "tossed and turned, woke up a couple of times." He was able to go to 2 groups yesterday, but declined others as he felt overwhelmed by the voices unable to focus on anything else. The auditory hallucinations are "still there," but is unable to hear what they are saying as they are muffled. He is trying to ignore them, and admits he is spending much of his energy on this and is having difficulty focusing on other things. He feels safe in the hospital, and denies any side effects after his first dose of Invega. Physical Exam Psychiatric Orientation: alert and cooperative Apperance: appropriately dressed and appeared stated age Tall, thin, white male appearing his stated age. Dressed in the same clothes since admission, limited hygiene and grooming. Hair appears unwashed. Seated in no acute distress. Calm, cooperative, and pleasant. Eye Contact: good eye contact Motor Behavior: steady gait and station and no abnormal motor movements Soft-spoken, normal rate and tone. Affect: + blunted affect "Okay." Thought Process: goal directed thought process Answers are vague at times Suicidal Thoughts: denies suicidal thoughts But cannot contract for safety outside of the hospital, thinks he may harm himself as "protection" from hallucinations. Homicidal Thoughts: denies homicidal thoughts Hallucinations: + auditory hallucinations and + visual hallucinations Cognition: recent memory grossly intact, attention grossly intact and language grossly intact Estimated Intelligence: consistent with education level Insight: + fair insight Judgement: + fair judgement Vital Signs (Past 24 Hours) Last Vital Signs Temp 36.7 C 07/04/20 06:24 Pulse 103 H 07/04/20 06:24 Resp 18 07/04/20 06:24 BP 126/86 07/04/20 06:24 Pulse Ox 97 07/01/20 13:15 Results & Data ([facility]) Laboratory Results Laboratory Results - last 24 hr 07/01/20 07/04/20 12:26 07:54 Fasting Glucose 95 Triglycerides 90 Cholesterol 123 LDL Cholesterol, Calc 68 VLDL Cholesterol, Calc 18 HDL Cholesterol 37 Cholesterol/HDL Ratio 3 Urine MDEA negative MDMA negative Urine MDMA negative Current Inpatient Medications Current Inpatient Medications: Current Inpatient Medications Acetaminophen (Acetaminophen 325 Mg Tab) 650 mg PO Q4H PRN PRN Reason: Headache or Minor Fever Stop: 07/31/20 15:20 Al Hydrox/Mg Hydrox/Simethicone (Aluminum/Magnesium Susp 30 Ml Udc) 30 ml PO Q4H PRN PRN Reason: GI Upset Stop: 07/31/20 15:20 Benztropine Mesylate (Benztropine Mesylate 0.5 Mg Tab) 0.5 mg PO BID JOSEMANUEL Stop: 07/31/20 20:59 Last Admin: 07/04/20 08:51 Dose: 0.5 mg Documented by: Bismuth Subsalicylate (Bismuth Subsalicylate Liqd 236 Ml) 15 ml PO PRN PRN PRN Reason: Loose Stool Stop: 07/31/20 15:20 Chlorpromazine HCl (Chlorpromazine Hcl 25 Mg Tab) 25 mg PO TID JOSEMANUEL Stop: 08/02/20 13:59 Last Admin: 07/04/20 08:53 Dose: 25 mg Documented by: Haloperidol (Haloperidol 5 Mg Tab) 15 mg PO BID JOSEMANUEL Stop: 08/02/20 20:59 Last Admin: 07/04/20 08:51 Dose: 15 mg Documented by: Hydroxyzine HCl (Hydroxyzine Hcl 25 Mg Tab) 50 mg PO HSZ PRN PRN Reason: Insomnia Stop: 07/31/20 15:20 Last Admin: 07/02/20 00:18 Dose: 50 mg Documented by: Hydroxyzine HCl (Hydroxyzine Hcl 25 Mg Tab) 25 mg PO Q4H PRN PRN Reason: Anxiety Stop: 07/31/20 15:20 Magnesium Hydroxide (Magnesium Hydroxide Susp 30 Ml Udc) 30 ml PO DAILY PRN PRN Reason: Constipation Stop: 07/31/20 15:20 Miscellaneous (Remove Nicoderm Patch) 1 ea N/A DAILY@0859 JOSEMANUEL Stop: 08/01/20 08:58 Last Admin: 07/04/20 08:58 Dose: 1 ea Documented by: Nicotine (Nicotine 21 Mg/24 Hr Tdsy) 21 mg TD QAM JOSEMANUEL Stop: 08/01/20 08:59 Last Admin: 07/04/20 08:57 Dose: Not Given Documented by: Paliperidone (Paliperidone 3 Mg Tabcr) 3 mg PO DAILY JOSEMANUEL Stop: 08/02/20 12:59 Last Admin: 07/04/20 08:52 Dose: 3 mg Documented by: Sodium Chloride (Sodium Chloride 0.65% Na Soln 45 Ml ([place])) 1 - 2 sprays NA PRN PRN PRN Reason: Nasal Dryness/Congestion Stop: 07/31/20 15:20 Trazodone HCl (Trazodone Hcl 100 Mg Tab) 100 mg PO HS JOSEMANUEL Stop: 07/31/20 20:59 Last Admin: 07/03/20 20:00 Dose: 100 mg Documented by: Mental Health & Subst Abuse Tx Psychiatrist Name of Psychiatrist: Lala Dowell Psychiatrist's Date of Appointment with Psychiatrist: 08/02/20 Time of Appointment with Psychiatrist: 10:00 am Psychiatric Appointment Comment: [facility] [place] Therapist Name of Therapist: Lala Taylor Therapist's Date of Therapist Appointment: 07/12/20 Time of Therapist Appointment: 10:00 am Therapy Appointment Comment: [facility] [place], NOREEN Development Technologist Name of Development Technologist: KATHIA Phone Number for Development Technologist: [phone] Post Discharge Appointments Partial or Psych Rehab Name of Partial or Psych [facility]hab: [facility] Phone Number of Partial or Psych Rehab: [phone] Date of Appointment at Partial or Psych Rehab: 07/09/20 Time of Appointment at Partial or Psych Rehab: Continue your schedule Partial or Psych Rehab Appointment Comment: [id number], [place] [address] Contact Information Discharge Discharge Address: [address] [place] [address], [place] [address] Contact Information Comment: Jonnie DAWSON
[2020-07-04] MEDS: traZODone HCL 100 MG TAB PO SCH (21:08)
[2020-07-04] MEDS ORDERED: haloperidoL 5 MG TAB PO SCH (22:00)
[2020-07-05] MEDS: chlorproMAZINE HCL 25 MG TAB PO SCH ×3 (08:34→20:53)
[2020-07-05] MEDS: BENZTROPINE MESYLATE 0.5 MG TAB PO SCH ×2 (08:34→20:53)
[2020-07-05] MEDS: NICOTINE 21 MG/24 HR TDSY TD SCH (08:36)
[2020-07-05] MEDS ORDERED: haloperidoL 5 MG TAB PO SCH (09:00)
[2020-07-05] MEDS ORDERED: PALIPERIDONE 3 MG TABCR PO SCH (09:00)
--- NOTE | 2020-07-05 10:03 | Psychiatric Progress Note ---
Date of Service July 05, 2020 Impression / Recommendations Impression 50-year-old single male who lives in a [employer] [facility], has a history of schizophrenia with a very serious suicide attempt approximately 2 years ago by cutting his neck, who is admitted voluntarily with self injury by cutting/burning in the context of increased auditory, visual hallucinations, and paranoia. We are cross tapering from Haldol and Thorazine to paliperidone to target psychotic symptoms. Inpatient treatment is medically necessary due to the severity of symptoms and risk for suicide/self-harm if discharged. (1) Schizophrenia: 07/02 -Continue voluntary hospitalization, every 15 minute checks for safety. -Encourage group participation, work on healthy coping skills and discharge safety plan. -Coordinate care with NOREEN Smith, at [place]. Patient currently stating he is not interested in medication changes, but would like to explore options to better control his psychotic symptoms. -Coordinate with his sap solution manager consultant and ch[facility] staff. 07/03 -spoke with NOREEN Smith, regarding patient's history and medication options. Although his mood has been fairly stable over the past couple of years, he has had mild depressive symptoms and persistent psychosis, which worsened with disruption of his routine due to the pandemic. He has been on high-dose haloperidol, and initially the addition of chlorpromazine appeared beneficial, but recently psychosis has been worsening. Discussed medication options with the patient, including olanzapine and paliperidone. After discussion of risks, benefits, and side effects, he elected for a trial of paliperidone. Will start 3 mg daily, titrate as tolerated, while decreasing haloperidol and chlorpromazine doses. Discussed risk of metabolic syndrome, movement disorders, and the need to monitor fasting labs. Order FLP and FG for tomorrow. 07/04 -continue cross taper; reduce Haldol to 10 mg every morning and 15 mg at bedtime for tomorrow, and increase paliperidone to 6 mg daily for tomorrow. -Reviewed FLP and FG for monitoring on an atypical antipsychotic; all within normal limits. -Continue medically necessary private room for psychosis, and encourage patient to attend and participate in groups as able, although he is easily overstimulated, and may need breaks from the milieu. 07/05 - Continuing cross-taper. Pt does report an episode of emesis this morning, but states it was prior to taking his AM medications. Pt denies persistent nausea or other significant side effects. Will reduce HS dose of Haldol to 10mg tonight, and decrease AM dose to 5mg tomorrow. Invega being titrated to 9mg tomorrow morning. Pt denies symptoms suggestive of EPS. Continue cross-taper as tolerated. - Pt continues to attend only minimal group programming due to difficulty concentrating in the context of continued auditory hallucinations. When he has been out of his room, he has been polite and interactive with peers. - Continue MNPR at this time. (2) Self-injurious behavior: 07/02 -patient denies pain or discomfort, no signs of infection. May use bacitracin ointment if needed. Patient able to contract for safety in the hospital. Continue to work on healthy coping skills and discharge safety plan. 07/05 - Pt reports thoughts/urges to harm himself using "a cigarette", able to contract for safety here on the unit, but admits he would have difficulty refraining from self-harm if he were discharged Risk Factors Assessment Male: Yes : Yes Do You Have Access To A Gun?: No Health Problems: No Mental Health Diagnoses: Yes Substance Use Disorders: No Previous Attempt: Yes Previous Attempt; Highly Lethal: Yes Previous Psychiatric Hospitalization: Yes Hopelessness: Yes Smoker: Yes Protective Factors Assessment : No Responsible for Young Children: No Employed: No Stable Relationships: No Supportive Family: No Good Rapport with Provider: Yes Interval History Identifying Information CASEY DAMIAN is a 50-year-old M who currently lives in [facility] housing, has a history of schizophrenia, and was admitted on 07/01/20 15:21 on a 201 voluntary commitment for self injury by cutting. Chief Complaint "Um, I'm ok." Review of Systems Notes Constitutional: denied Cardiovascular: denied Respiratory: denied Gastrointestinal: reports an episode of emesis this morning, occasional episodes of nausea Neurological: denied Psychiatric: denies symptoms other than stated above Total of at least 10 systems reviewed, pertinent positives as above and in HPI. Sleep Information Total Hours of Sleep: 7 Meal Information Percent Meal Consumed - Breakfast: 100 Percent Meal Consumed - Lunch: 100 Percent Meal Consumed - Dinner: 100 Subjective Subjective Patient was seen & assessed and interval progress reviewed with treatment team. Staff report the patient has been primarily withdrawn to his room, but has been spending some increased time interacting in the milieu and is gradually adjusting to groups. The patient attended community meeting last evening and rated his mood a 3/10 and "thoughtful but confused." The patient was seen today to assess progress since admission. The patient states he is feeling "ok" today and denied any acute concerns. He initially denied side effects related to his medication adjustments, but a few minutes later reported "I vomited". Unable to pin down a specific time as to when the emesis occurred; however, the patient does believe it was prior to him taking his morning medications. Pt denies continued concerns regarding GI upset, but states he was a bit nauseated before the vomiting occurred. The patient denies muscle stiffness/soreness or feelings of intense restlessness. He admits that the voices are not much improved, but is happy that he is not feeling worse while his medications are adjusted. Pt does report he is hopeful the medication will be effective for him. Pt does endorse ongoing auditory hallucinations, but states they are sounding a bit more muffled. Pt denies that they are particularly distressing. He does admit to hopelessness at times and passive wishes, and reports he has been struggling with thoughts/urges to use "a cigarette" to harm himself (likely burn himself with lit end of cigarette). Pt states he is able to contract for safety on the unit, but does believe he would have difficulty refraining from harming himself if he were not in the hospital. Pt is agreeable with continued inpatient hospitalization while his medications are adjusted. He denied other needs or concerns today. Physical Exam Psychiatric Orientation: alert, oriented x 3 and cooperative (very pleasant, but is guarded and timid) Apperance: appropriately dressed, + disheveled (long bullard hair appears somewhat unkempt) and appeared stated age Eye Contact: good eye contact Motor Behavior: no abnormal motor movements (observed while laying in bed) Speech: normal rate/rhythm/volume of speech (soft-spoken, polite tone) Affect: + blunted affect Thought Process: goal directed thought process (but with vague answers to quest ions) Suicidal Thoughts: denies suicidal thoughts but does state he is having urges to harm himself by using "a cigarette" Homicidal Thoughts: denies homicidal thoughts Hallucinations: + auditory hallucinations and + visual hallucinations Cognition: recent memory grossly intact, attention grossly intact and language grossly intact Estimated Intelligence: consistent with education level Insight: + fair insight Judgement: + fair judgement Vital Signs (Past 24 Hours) Last Vital Signs Temp 36.8 C 07/05/20 06:43 Pulse 100 H 07/05/20 06:43 Resp 17 07/05/20 06:43 BP 121/80 07/05/20 06:43 Pulse Ox 97 07/01/20 13:15 Results & Data ([facility]) Current Inpatient Medications Current Inpatient Medications: Current Inpatient Medications Acetaminophen (Acetaminophen 325 Mg Tab) 650 mg PO Q4H PRN PRN Reason: Headache or Minor Fever Stop: 07/31/20 15:20 Al Hydrox/Mg Hydrox/Simethicone (Aluminum/Magnesium Susp 30 Ml Udc) 30 ml PO Q4H PRN PRN Reason: GI Upset Stop: 07/31/20 15:20 Benztropine Mesylate (Benztropine Mesylate 0.5 Mg Tab) 0.5 mg PO BID JOSEMANUEL Stop: 07/31/20 20:59 Last Admin: 07/05/20 08:34 Dose: 0.5 mg Documented by: Bismuth Subsalicylate (Bismuth Subsalicylate Liqd 236 Ml) 15 ml PO PRN PRN PRN Reason: Loose Stool Stop: 07/31/20 15:20 Chlorpromazine HCl (Chlorpromazine Hcl 25 Mg Tab) 25 mg PO TID JOSEMANUEL Stop: 08/02/20 13:59 Last Admin: 07/05/20 08:34 Dose: 25 mg Documented by: Haloperidol (Haloperidol 5 Mg Tab) 15 mg PO HS JOSEMANUEL Stop: 08/03/20 21:59 Last Admin: 07/04/20 21:09 Dose: 15 mg Documented by: Haloperidol (Haloperidol 5 Mg Tab) 10 mg PO DAILY JOSEMANUEL Stop: 08/04/20 08:59 Last Admin: 07/05/20 08:34 Dose: 10 mg Documented by: Hydroxyzine HCl (Hydroxyzine Hcl 25 Mg Tab) 50 mg PO HSZ PRN PRN Reason: Insomnia Stop: 07/31/20 15:20 Last Admin: 07/02/20 00:18 Dose: 50 mg Documented by: Hydroxyzine HCl (Hydroxyzine Hcl 25 Mg Tab) 25 mg PO Q4H PRN PRN Reason: Anxiety Stop: 07/31/20 15:20 Magnesium Hydroxide (Magnesium Hydroxide Susp 30 Ml Udc) 30 ml PO DAILY PRN PRN Reason: Constipation Stop: 07/31/20 15:20 Miscellaneous (Remove Nicoderm Patch) 1 ea N/A DAILY@0859 [facility] Stop: 08/01/20 08:58 Last Admin: 07/05/20 08:36 Dose: Not Given Documented by: Nicotine (Nicotine 21 Mg/24 Hr Tdsy) 21 mg TD QAM JOSEMANUEL Stop: 08/01/20 08:59 Last Admin: 07/05/20 08:36 Dose: Not Given Documented by: Paliperidone (Paliperidone 3 Mg Tabcr) 6 mg PO DAILY JOSEMANUEL Stop: 08/04/20 08:59 Last Admin: 07/05/20 08:34 Dose: 6 mg Documented by: Sodium Chloride (Sodium Chloride 0.65% Na Soln 45 Ml ([place])) 1 - 2 sprays NA PRN PRN PRN Reason: Nasal Dryness/Congestion Stop: 07/31/20 15:20 Trazodone HCl (Trazodone Hcl 100 Mg Tab) 100 mg PO HS [facility] Stop: 07/31/20 20:59 Last Admin: 07/04/20 21:08 Dose: 100 mg Documented by: Mental Health & Subst Abuse Tx Psychiatrist Name of Psychiatrist: Lala Dowell Psychiatrist's Date of Appointment with Psychiatrist: 08/02/20 Time of Appointment with Psychiatrist: 10:00 am Psychiatric Appointment Comment: [id number] [place] Therapist Name of Therapist: Lala Taylor Therapist's Date of Therapist Appointment: 07/12/20 Time of Therapist Appointment: 10:00 am Therapy Appointment Comment: [id number] [place], [place] Eeg Tech Name of Eeg Tech: KATHIA Phone Number for Eeg Tech: [phone] Post Discharge Appointments Partial or Psych Rehab Name of Partial or Psych Rehab: [facility] Phone Number of Partial or Psych Rehab: [phone] Date of Appointment at Partial or Psych Rehab: 07/09/20 Time of Appointment at Partial or Psych Rehab: Continue your schedule Partial or Psych Rehab Appointment Comment: [id number] [place] [address] Other #1: Name of Aftercare Appointment: Jonnie DAWSON Phone Number of Aftercare Appointment: [phone] Aftercare Appointment Comment: Return at discharge Contact Information Discharge Discharge Address: [address] [place] [address], [place] [address] Contact Information Comment: Jonnie DAWSON
[2020-07-05] MEDS: haloperidoL 5 MG TAB PO SCH (20:54)
[2020-07-05] MEDS: traZODone HCL 100 MG TAB PO SCH (20:54)
[2020-07-06] MEDS: PALIPERIDONE 3 MG TABCR PO SCH (09:18)
[2020-07-06] MEDS: haloperidoL 5 MG TAB PO SCH ×2 (09:19→20:39)
[2020-07-06] MEDS: chlorproMAZINE HCL 25 MG TAB PO SCH ×3 (09:19→20:38)
[2020-07-06] MEDS: BENZTROPINE MESYLATE 0.5 MG TAB PO SCH ×2 (09:19→20:38)
[2020-07-06] MEDS: NICOTINE 21 MG/24 HR TDSY TD SCH (09:23)
--- NOTE | 2020-07-06 13:27 | Psychiatric Progress Note ---
Date of Service July 06, 2020 Impression / Recommendations Impression 50-year-old single male who lives in a [employer] [facility], has a history of schizophrenia with a very serious suicide attempt approximately 2 years ago by cutting his neck, who is admitted voluntarily with self injury by cutting/burning in the context of increased auditory, visual hallucinations, and paranoia. We are cross tapering from Haldol and Thorazine to paliperidone to target psychotic symptoms. Inpatient treatment is medically necessary due to the severity of symptoms and risk for suicide/self-harm if discharged. Reviewed 07/06--improving. (1) Schizophrenia: 07/02 -Continue voluntary hospitalization, every 15 minute checks for safety. -Encourage group participation, work on healthy coping skills and discharge safety plan. -Coordinate care with NOREEN Smith, at [place]. Patient currently stating he is not interested in medication changes, but would like to explore options to better control his psychotic symptoms. -Coordinate with his patient case manager and intermediate staff. 07/03 -spoke with NOREEN Smith, regarding patient's history and medication options. Although his mood has been fairly stable over the past couple of y ears, he has had mild depressive symptoms and persistent psychosis, which worsened with disruption of his routine due to the pandemic. He has been on high-dose haloperidol, and initially the addition of chlorpromazine appeared beneficial, but recently psychosis has been worsening. Discussed medication options with the patient, including olanzapine and paliperidone. After discussion of risks, benefits, and side effects, he elected for a trial of paliperidone. Will start 3 mg daily, titrate as tolerated, while decreasing haloperidol and chlorpromazine doses. Discussed risk of metabolic syndrome, movement disorders, and the need to monitor fasting labs. Order FLP and FG for tomorrow. 07/04 -continue cross taper; reduce Haldol to 10 mg every morning and 15 mg at bedtime for tomorrow, and increase paliperidone to 6 mg daily for tomorrow. -Reviewed FLP and FG for monitoring on an atypical antipsychotic; all within normal limits. -Continue medically necessary private room for psychosis, and encourage patient to attend and participate in groups as able, although he is easily overstimulated, and may need breaks from the milieu. 07/05 - Continuing cross-taper. Pt does report an episode of emesis this morning, but states it was prior to taking his AM medications. Pt denies persistent nausea or other significant side effects. Will reduce HS dose of Haldol to 10mg tonight, and decrease AM dose to 5mg tomorrow. Invega being titrated to 9mg tomorrow morning. Pt denies symptoms suggestive of EPS. Continue cross-taper as tolerated. - Pt continues to attend only minimal group programming due to difficulty concentrating in the context of continued auditory hallucinations. When he has been out of his room, he has been polite and interactive with peers. - Continue MNPR at this time. 07/06--reviewed above. 1 st day of Haldol decrease, Invega increase. Monitor for ability to taper Haldol further. readdress FREDDY. (2) Self-injurious behavior: 07/02 -patient denies pain or discomfort, no signs of infection. May use bacitracin ointment if needed. Patient able to contract for safety in the hospital. Continue to work on healthy coping skills and discharge safety plan. 07/05 - Pt reports thoughts/urges to harm himself using "a cigarette", able to contract for safety here on the unit, but admits he would have difficulty refraining from self-harm if he were discharged 07/06--reviewed. Risk Factors Assessment Male: Yes : Yes Do You Have Access To A Gun?: No Health Problems: No Mental Health Diagnoses: Yes Substance Use Disorders: No Previous Attempt: Yes Previous Attempt; Highly Lethal: Yes Previous Psychiatric Hospitalization: Yes Hopelessness: Yes Smoker: Yes Protective Factors Assessment : No Responsible for Young Children: No Employed: No Stable Relationships: No Supportive Family: No Good Rapport with Provider: Yes Interval History Identifying Information CASEY DAMIAN is a 50-year-old M who currently lives in [employer] housing, has a history of schizophrenia, and was admitted on 07/01/20 15:21 on a 201 voluntary commitment for self injury by cutting. Chief Complaint "I just don't want to have 2 days a week where I'm so off". Review of Systems Sleep Information Total Hours of Sleep: 3.5 Meal Information Percent Meal Consumed - Breakfast: 100 Percent Meal Consumed - Lunch: 50 Percent Meal Consumed - Dinner: 100 Subjective Subjective Patient was seen & assessed and interval progress reviewed with nursing and social work. No acute issues overnight, attending select groups, at least for a portion. Will eat meals in common area. Cooperative with med changes here and voiced good understanding of them but is certainly guarded about HAYES. Physical Exam Psychiatric Orientation: alert and oriented x 3 Apperance: appropriately dressed, + disheveled (long bullard hair appears somewhat unkempt) and appeared stated age Eye Contact: + fair eye contact Motor Behavior: steady gait and station Speech: normal rate/rhythm/volume of speech (soft-spoken, polite tone) Affect: + blunted affect Thought Process: goal directed thought process (but with vague answers to questions) Thought Content: + preoccupation Suicidal Thoughts: denies suicidal thoughts Homicidal Thoughts: denies homicidal thoughts Hallucinations: no auditory hallucinations and no visual hallucinations Cognition: recent memory grossly intact, attention grossly intact and language grossly intact Estimated Intelligence: consistent with education level Insight: + impaired insight Judgement: + impaired judgement Vital Signs (Past 24 Hours) Last Vital Signs Temp 36.6 C 07/06/20 06:42 Pulse 82 07/06/20 06:43 Resp 16 07/06/20 06:42 BP 114/81 07/06/20 06:43 Pulse Ox 97 07/01/20 13:15 Results & Data ([facility]) Current Inpatient Medications Current Inpatient Medications: Current Inpatient Medications Acetaminophen (Acetaminophen 325 Mg Tab) 650 mg PO Q4H PRN PRN Reason: Headache or Minor Fever Stop: 07/31/20 15:20 Al Hydrox/Mg Hydrox/Simethicone (Aluminum/Magnesium Susp 30 Ml Udc) 30 ml PO Q4H PRN PRN Reason: GI Upset Stop: 07/31/20 15:20 Benztropine Mesylate (Benztropine Mesylate 0.5 Mg Tab) 0.5 mg PO BID JOSEMANUEL Stop: 07/31/20 20:59 Last Admin: 07/06/20 09:19 Dose: 0.5 mg Documented by: Bismuth Subsalicylate (Bismuth Subsalicylate Liqd 236 Ml) 15 ml PO PRN PRN PRN Reason: Loose Stool Stop: 07/31/20 15:20 Chlorpromazine HCl (Chlorpromazine Hcl 25 Mg Tab) 25 mg PO TID JOSEMANUEL Stop: 08/02/20 13:59 Last Admin: 07/06/20 09:19 Dose: 25 mg Documented by: Haloperidol (Haloperidol 5 Mg Tab) 10 mg PO HS JOSEMANUEL Stop: 08/04/20 21:59 Last Admin: 07/05/20 20:54 Dose: 10 mg Documented by: Haloperidol (Haloperidol 5 Mg Tab) 5 mg PO DAILY JOSEMANUEL Stop: 08/05/20 08:59 Last Admin: 07/06/20 09:19 Dose: 5 mg Documented by: Hydroxyzine HCl (Hydroxyzine Hcl 25 Mg Tab) 50 mg PO HSZ PRN PRN Reason: Insomnia Stop: 07/31/20 15:20 Last Admin: 07/02/20 00:18 Dose: 50 mg Documented by: Hydroxyzine HCl (Hydroxyzine Hcl 25 Mg Tab) 25 mg PO Q4H PRN PRN Reason: Anxiety Stop: 07/31/20 15:20 Magnesium Hydroxide (Magnesium Hydroxide Susp 30 Ml Udc) 30 ml PO DAILY PRN PRN Reason: Constipation Stop: 07/31/20 15:20 Miscellaneous (Remove Nicoderm Patch) 1 ea N/A DAILY@0859 JOSEMANUEL Stop: 08/01/20 08:58 Last Admin: 07/06/20 09:23 Dose: Not Given Documented by: Nicotine (Nicotine 21 Mg/24 Hr Tdsy) 21 mg TD QAM JOSEMANUEL Stop: 08/01/20 08:59 Last Admin: 07/06/20 09:23 Dose: Not Given Documented by: Paliperidone (Paliperidone 3 Mg Tabcr) 9 mg PO DAILY JOSEMANUEL Stop: 08/05/20 08:59 Last Admin: 07/06/20 09:18 Dose: 9 mg Documented by: Sodium Chloride (Sodium Chloride 0.65% Na Soln 45 Ml ([place])) 1 - 2 sprays NA PRN PRN PRN Reason: Nasal Dryness/Congestion Stop: 07/31/20 15:20 Trazodone HCl (Trazodone Hcl 100 Mg Tab) 100 mg PO HS JOSEMANUEL Stop: 07/31/20 20:59 Last Admin: 07/05/20 20:54 Dose: 100 mg Documented by: Mental Health & Subst Abuse Tx Psychiatrist Name of Psychiatrist: Lala Dowell Psychiatrist's Date of Appointment with Psychiatrist: 08/02/20 Time of Appointment with Psychiatrist: 10:00 am Psychiatric Appointment Comment: [id number] [facility], [place] Therapist Name of Therapist: Lala Taylor Therapist's Date of Therapist Appointment: 07/12/20 Time of Therapist Appointment: 10:00 am Therapy Appointment Comment: [id number], [place], [place] Last Model Maker Name of Last Model Maker: KATHIA Phone Number for Last Model Maker: [phone] Post Discharge Appointments Partial or Psych Rehab Name of Partial or Psych Rehab: [facility] Phone Number of Partial or Psych Rehab: [phone] Date of Appointment at Partial or Psych Rehab: 07/09/20 Time of Appointment at Partial or Psych Rehab: Continue your schedule Partial or Psych Rehab Appointment Comment: [id number] [place] [address] Contact Information Discharge Discharge Address: [address] [place] [address], [place] [address] Contact Information Comment: Jonnie DAWSON
[2020-07-06] MEDS: traZODone HCL 100 MG TAB PO SCH (20:39)
[2020-07-07] MEDS: PALIPERIDONE 3 MG TABCR PO SCH (08:48)
[2020-07-07] MEDS: haloperidoL 5 MG TAB PO SCH ×2 (08:48→20:32)
[2020-07-07] MEDS: BENZTROPINE MESYLATE 0.5 MG TAB PO SCH ×2 (08:48→20:31)
[2020-07-07] MEDS: NICOTINE 21 MG/24 HR TDSY TD SCH (08:53)
[2020-07-07] MEDS: chlorproMAZINE HCL 25 MG TAB PO SCH ×3 (08:55→20:31)
--- NOTE | 2020-07-07 14:38 | Psychiatric Progress Note ---
Date of Service July 07, 2020 Impression / Recommendations Impression 50-year-old single male who lives in a [place] [facility] assisted, has a history of schizophrenia with a very serious suicide attempt approximately 2 years ago by cutting his neck, who is admitted voluntarily with self injury by cutting/burning in the context of increased auditory, visual hallucinations, and paranoia. We are cross tapering from Haldol and Thorazine to paliperidone to target psychotic symptoms. Inpatient treatment is medically necessary due to the severity of symptoms and risk for suicide/self-harm if discharged. Reviewed 07/07--improving. Plan: continue current meds and treatment plan. Risk Factors Assessment Male: Yes : Yes Do You Have Access To A Gun?: No Health Problems: No Mental Health Diagnoses: Yes Substance Use Disorders: No Previous Attempt: Yes Previous Attempt; Highly Lethal: Yes Previous Psychiatric Hospitalization: Yes Hopelessness: Yes Smoker: Yes Protective Factors Assessment : No Responsible for Young Children: No Employed: No Stable Relationships: No Supportive Family: No Good Rapport with Provider: Yes Interval History Identifying Information CASEY DAMIAN is a 50-year-old M who currently lives in [place] [facility] housing, has a history of schizophrenia, and was admitted on 07/01/20 15:21 on a 201 voluntary commitment for self injury by cutting. Chief Complaint "things are going good here". Review of Systems Sleep Information Total Hours of Sleep: 5.75 Meal Information Percent Meal Consumed - Breakfast: 100 Percent Meal Consumed - Lunch: 100 Percent Meal Consumed - Dinner: 100 Subjective Subjective Patient was seen & assessed and interval progress reviewed with nursing and social work. No acute issues overnight. Showered this am but put back on same clothes. He continues to note anxiety around med change and is not yet willing to address HAYES. Physical Exam Psychiatric Orientation: alert Apperance: + disheveled Eye Contact: + fair eye contact Motor Behavior: no abnormal motor movements speech is non spontaneous Affect: + constricted affect Mood: + anxious mood Thought Process: + concrete thought process Thought Content: reality based without delusions Suicidal Thoughts: denies suicidal thoughts Homicidal Thoughts: denies homicidal thoughts Hallucinations: + auditory hallucinations ("but hardly any more"); no visual hallucinations Cognition: recent memory grossly intact Insight: + limited insight Judgement: + limited judgement Vital Signs (Past 24 Hours) Last Vital Signs Temp 36.4 C L 07/07/20 06:48 Pulse 84 07/07/20 06:48 Resp 16 07/07/20 06:48 BP 131/88 07/07/20 06:48 Pulse Ox 97 07/01/20 13:15 Results & Data ([facility]) Current Inpatient Medications Current Inpatient Medications: Current Inpatient Medications Acetaminophen (Acetaminophen 325 Mg Tab) 650 mg PO Q4H PRN PRN Reason: Headache or Minor Fever Stop: 07/31/20 15:20 Al Hydrox/Mg Hydrox/Simethicone (Aluminum/Magnesium Susp 30 Ml Udc) 30 ml PO Q4H PRN PRN Reason: GI Upset Stop: 07/31/20 15:20 Benztropine Mesylate (Benztropine Mesylate 0.5 Mg Tab) 0.5 mg PO BID JOSE[facility]UEL Stop: 07/31/20 20:59 Last Admin: 07/07/20 08:48 Dose: 0.5 mg Documented by: Bismuth Subsalicylate (Bismuth Subsalicylate Liqd 236 Ml) 15 ml PO PRN PRN PRN Reason: Loose Stool Stop: 07/31/20 15:20 Chlorpromazine HCl (Chlorpromazine Hcl 25 Mg Tab) 25 mg PO TID JOSEMANUEL Stop: 08/02/20 13:59 Last Admin: 07/07/20 13:59 Dose: 25 mg Documented by: Haloperidol (Haloperidol 5 Mg Tab) 10 mg PO HS JOSEMANUEL Stop: 08/04/20 21:59 Last Admin: 07/06/20 20:39 Dose: 10 mg Documented by: Haloperidol (Haloperidol 5 Mg Tab) 5 mg PO DAILY JOSEMANUEL Stop: 08/05/20 08:59 Last Admin: 07/07/20 08:48 Dose: 5 mg Documented by: Hydroxyzine HCl (Hydroxyzine Hcl 25 Mg Tab) 50 mg PO HSZ PRN PRN Reason: Insomnia Stop: 07/31/20 15:20 Last Admin: 07/02/20 00:18 Dose: 50 mg Documented by: Hydroxyzine HCl (Hydroxyzine Hcl 25 Mg Tab) 25 mg PO Q4H PRN PRN Reason: Anxiety Stop: 07/31/20 15:20 Magnesium Hydroxide (Magnesium Hydroxide Susp 30 Ml Udc) 30 ml PO DAILY PRN PRN Reason: Constipation Stop: 07/31/20 15:20 Miscellaneous (Remove Nicoderm Patch) 1 ea N/A DAILY@0859 [facility] Stop: 08/01/20 08:58 Last Admin: 07/07/20 08:54 Dose: Not Given Documented by: Nicotine (Nicotine 21 Mg/24 Hr Tdsy) 21 mg TD QAM JOSEMANUEL Stop: 08/01/20 08:59 Last Admin: 07/07/20 08:53 Dose: Not Given Documented by: Paliperidone (Paliperidone 3 Mg Tabcr) 9 mg PO DAILY JOSEMANUEL Stop: 08/05/20 08:59 Last Admin: 07/07/20 08:48 Dose: 9 mg Documented by: Sodium Chloride (Sodium Chloride 0.65% Na Soln 45 Ml ([place])) 1 - 2 sprays NA PRN PRN PRN Reason: Nasal Dryness/Congestion Stop: 07/31/20 15:20 Trazodone HCl (Trazodone Hcl 100 Mg Tab) 100 mg PO HS [facility] Stop: 07/31/20 20:59 Last Admin: 07/06/20 20:39 Dose: 100 mg Documented by: Mental Health & Subst Abuse Tx Psychiatrist Name of Psychiatrist: Lala Dowell Psychiatrist's Date of Appointment with Psychiatrist: 08/02/20 Time of Appointment with Psychiatrist: 10:00 am Psychiatric Appointment Comment: Bernabe Trinidad [place], [place]ORE[place] Therapist Name of Therapist: Lala Taylor Therapist's Date of Therapist Appointment: 07/12/20 Time of Therapist Appointment: 10:00 am Therapy Appointment Comment: Bernabe Trinidad [place] Allergy Physician Name of Allergy Physician: KATHIA Phone Number for Allergy Physician: [phone] Post Discharge Appointments Partial or Psych Rehab Name of Partial or Psych Rehab: [facility] [place] Psych Rehab Phone Number of Partial or Psych Rehab: [phone] Date of Appointment at Partial or Psych Rehab: 07/09/20 Time of Appointment at Partial or Psych Rehab: Continue your schedule Partial or Psych Rehab Appointment Comment: [id number] [place] [address] Contact Information Discharge Discharge Address: [address] [place] [address], [place] [address] Contact Information Comment: Jonnie DAWSON
[2020-07-07] MEDS: traZODone HCL 100 MG TAB PO SCH (20:32)
[2020-07-08] MEDS: PALIPERIDONE 3 MG TABCR PO SCH (08:51)
[2020-07-08] MEDS: BENZTROPINE MESYLATE 0.5 MG TAB PO SCH ×2 (08:51→20:28)
[2020-07-08] MEDS: NICOTINE 21 MG/24 HR TDSY TD SCH (08:52)
[2020-07-08] MEDS: haloperidoL 5 MG TAB PO SCH ×2 (08:52→20:29)
[2020-07-08] MEDS: chlorproMAZINE HCL 25 MG TAB PO SCH ×3 (08:53→20:29)
--- NOTE | 2020-07-08 13:53 | Psychiatric Progress Note ---
Date of Service July 08, 2020 Impression / Recommendations Impression 50-year-old single male who lives in a [place] [facility], has a history of schizophrenia with a very serious suicide attempt approximately 2 years ago by cutting his neck, who is admitted voluntarily with self injury by cutting/burning in the context of increased auditory, visual hallucinations, and paranoia. We are cross tapering from Haldol and Thorazine to paliperidone to target psychotic symptoms. Inpatient treatment is medically necessary due to the severity of symptoms and risk for suicide/self-harm if discharged. Reviewed 07/08--remains improved, staff got updates re: baseline from [facility] and they were comfortable with [facility]. Plan: continue current meds and treatment plan. Risk Factors Assessment Male: Yes : Yes Do You Have Access To A Gun?: No Health Problems: No Mental Health Diagnoses: Yes Substance Use Disorders: No Previous Attempt: Yes Previous Attempt; Highly Lethal: Yes Previous Psychiatric Hospitalization: Yes Hopelessness: Yes Smoker: Yes Protective Factors Assessment : No Responsible for Young Children: No Employed: No Stable Relationships: No Supportive Family: No Good Rapport with Provider: Yes Interval History Identifying Information CASEY DAMIAN is a 50-year-old M who currently lives in [place] [facility], has a history of schizophrenia, and was admitted on 07/01/20 15:21 on a 201 voluntary commitment for self injury by cutting. Chief Complaint "let dr. wu know those voices are scattered". Review of Systems Sleep Information Total Hours of Sleep: 7.25 Meal Information Percent Meal Consumed - Breakfast: 100 Percent Meal Consumed - Lunch: 100 Percent Meal Consumed - Dinner: 100 Subjective Subjective Patient was seen & assessed and interval progress reviewed with treatment team. States his aud fall are decreased from admission, he feels calm and recognizes that he should not self injure. He is not sure he wants any further med changes. Physical Exam Psychiatric Orientation: alert Apperance: + disheveled Eye Contact: + fair eye contact non-spontaneous speech Affect: + constricted affect Thought Process: + concrete thought process Thought Content: no delusions Suicidal Thoughts: denies suicidal thoughts Homicidal Thoughts: denies homicidal thoughts Hallucinations: + auditory hallucinations; no visual hallucinations Vital Signs (Past 24 Hours) Last Vital Signs Temp 36.4 C L 07/08/20 06:52 Pulse 79 07/08/20 06:53 Resp 16 07/08/20 06:52 BP 108/74 07/08/20 06:53 Pulse Ox 97 07/01/20 13:15 Results & Data ([facility]) Current Inpatient Medications Current Inpatient Medications: Current Inpatient Medications Acetaminophen (Acetaminophen 325 Mg Tab) 650 mg PO Q4H PRN PRN Reason: Headache or Minor Fever Stop: 07/31/20 15:20 Al Hydrox/Mg Hydrox/Simethicone (Aluminum/Magnesium Susp 30 Ml Udc) 30 ml PO Q4H PRN PRN Reason: GI Upset Stop: 07/31/20 15:20 Benztropine Mesylate (Benztropine Mesylate 0.5 Mg Tab) 0.5 mg PO BID [facility] Stop: 07/31/20 20:59 Last Admin: 07/08/20 08:51 Dose: 0.5 mg Documented by: Bismuth Subsalicylate (Bismuth Subsalicylate Liqd 236 Ml) 15 ml PO PRN PRN PRN Reason: Loose Stool Stop: 07/31/20 15:20 Chlorpromazine HCl (Chlorpromazine Hcl 25 Mg Tab) 25 mg PO TID [facility] Stop: 08/02/20 13:59 Last Admin: 07/08/20 13:45 Dose: 25 mg Documented by: Haloperidol (Haloperidol 5 Mg Tab) 10 mg PO HS [facility] Stop: 08/04/20 21:59 Last Admin: 07/07/20 20:32 Dose: 10 mg Documented by: Haloperidol (Haloperidol 5 Mg Tab) 5 mg PO DAILY [facility] Stop: 08/05/20 08:59 Last Admin: 07/08/20 08:52 Dose: 5 mg Documented by: Hydroxyzine HCl (Hydroxyzine Hcl 25 Mg Tab) 50 mg PO HSZ PRN PRN Reason: Insomnia Stop: 07/31/20 15:20 Last Admin: 07/02/20 00:18 Dose: 50 mg Documented by: Hydroxyzine HCl (Hydroxyzine Hcl 25 Mg Tab) 25 mg PO Q4H PRN PRN Reason: Anxiety Stop: 07/31/20 15:20 Magnesium Hydroxide (Magnesium Hydroxide Susp 30 Ml Udc) 30 ml PO DAILY PRN PRN Reason: Constipation Stop: 07/31/20 15:20 Miscellaneous (Remove Nicoderm Patch) 1 ea N/A DAILY@0859 [facility] Stop: 08/01/20 08:58 Last Admin: 07/08/20 08:51 Dose: Not Given Documented by: Nicotine (Nicotine 21 Mg/24 Hr Tdsy) 21 mg TD QAM [facility]UEL Stop: 08/01/20 08:59 Last Admin: 07/08/20 08:52 Dose: Not Given Documented by: Paliperidone (Paliperidone 3 Mg Tabcr) 9 mg PO DAILY JOSEMANUEL Stop: 08/05/20 08:59 Last Admin: 07/08/20 08:51 Dose: 9 mg Documented by: Sodium Chloride (Sodium Chloride 0.65% Na Soln 45 Ml ([place])) 1 - 2 sprays NA PRN PRN PRN Reason: Nasal Dryness/Congestion Stop: 07/31/20 15:20 Trazodone HCl (Trazodone Hcl 100 Mg Tab) 100 mg PO HS [facility] Stop: 07/31/20 20:59 Last Admin: 07/07/20 20:32 Dose: 100 mg Documented by: Mental Health & Subst Abuse Tx Psychiatrist Name of Psychiatrist: Lala Dowell Psychiatrist's Date of Appointment with Psychiatrist: 08/02/20 Time of Appointment with Psychiatrist: 10:00 am Psychiatric Appointment Comment: Bernabe Trinidad [place], [place] Therapist Name of Therapist: Lala Taylor Therapist's Date of Therapist Appointment: 07/12/20 Time of Therapist Appointment: 10:00 am Therapy Appointment Comment: Bernabe Trinidad [place] Education Administrative Assistant Name of Education Administrative Assistant: Ronal Phone Number for Education Administrative Assistant: [phone] Post Discharge Appointments Partial or Psych Rehab Name of Partial or Psych Rehab: [facility] [place] [facility] Rehab Phone Number of Partial or Psych Rehab: [phone] Date of Appointment at Partial or Psych Rehab: 07/16/20 Time of Appointment at Partial or Psych Rehab: Continue your schedule Partial or Psych Rehab Appointment Comment: [id number] [place] [address] Contact Information Discharge Discharge Address: [address] [place] [address], [place] [address] Contact Information Comment: Jonnie DAWSON
[2020-07-08] MEDS: traZODone HCL 100 MG TAB PO SCH (20:29)
[2020-07-09] MEDS: BENZTROPINE MESYLATE 0.5 MG TAB PO SCH ×2 (07:20→20:21)
[2020-07-09] MEDS: PALIPERIDONE 3 MG TABCR PO SCH (07:21)
[2020-07-09] MEDS: haloperidoL 5 MG TAB PO SCH ×2 (07:21→20:22)
[2020-07-09] MEDS: chlorproMAZINE HCL 25 MG TAB PO SCH ×3 (07:21→20:21)
[2020-07-09] MEDS: NICOTINE 21 MG/24 HR TDSY TD SCH (07:22)
--- NOTE | 2020-07-09 09:40 | Psychiatric Progress Note ---
Date of Service July 09, 2020 Impression / Recommendations Impression 50-year-old single male who lives in a [facility], has a history of schizophrenia with a very serious suicide attempt approximately 2 years ago by cutting his neck, who is admitted voluntarily with self injury by cutting/burning in the context of increased auditory, visual hallucinations, and paranoia. We are cross tapering from Haldol and Thorazine to paliperidone to target psychotic symptoms. Inpatient treatment is medically necessary due to the severity of symptoms and risk for suicide/self-harm if discharged. (1) Schizophrenia: 07/02 -Continue voluntary hospitalization, every 15 minute checks for safety. -Encourage group participation, work on healthy coping skills and discharge safety plan. -Coordinate care with NOREEN Smith, at [facility]. Patient currently stating he is not interested in medication changes, but would like to explore options to better control his psychotic symptoms. -Coordinate with his shoe parts caser and prison staff. 07/03 -spoke with NOREEN Smith, regarding patient's history and medication options. Although his mood has been fairly stable over the past couple of years, he has had mild depressive symptoms and persistent psychosis, which worsened with disruption of his routine due to the pandemic. He has been on high-dose haloperidol, and initially the addition of chlorpromazine appeared beneficial, but recently psychosis has been worsening. Discussed medication options with the patient, including olanzapine and paliperidone. After discussion of risks, benefits, and side effects, he elected for a trial of paliperidone. Will start 3 mg daily, titrate as tolerated, while decreasing haloperidol and chlorpromazine doses. Discussed risk of metabolic syndrome, movement disorders, and the need to monitor fasting labs. Order FLP and FG for tomorrow. 07/04 -continue cross taper; reduce Haldol to 10 mg every morning and 15 mg at bedtime for tomorrow, and increase paliperidone to 6 mg daily for tomorrow. -Reviewed FLP and FG for monitoring on an atypical antipsychotic; all within normal limits. -Continue medically necessary private room for psychosis, and encourage patient to attend and participate in groups as able, although he is easily overstimulated, and may need breaks from the milieu. 07/05 - Continuing cross-taper. Pt does report an episode of emesis this morning, but states it was prior to taking his AM medications. Pt denies persistent nausea or other significant side effects. Will reduce HS dose of Haldol to 10mg tonight, and decrease AM dose to 5mg tomorrow. Invega being titrated to 9mg tomorrow morning. Pt denies symptoms suggestive of EPS. Continue cross-taper as tolerated. - Pt continues to attend only minimal group programming due to difficulty concentrating in the context of continued auditory hallucinations. When he has been out of his room, he has been polite and interactive with peers. - Continue MNPR at this time. 07/06--reviewed above. 1 st day of Haldol decrease, Invega increase. Monitor for ability to taper Haldol further. readdress HAYES. 07/07--improving. Plan: continue current meds and treatment plan. 07/08--remains improved, staff got updates re: baseline from [facility] and they were comfortable with [facility]. Plan: continue current meds and treatment plan. 07/09--Ongoing reported improvement. Pt admits to continued auditory hallucinations and states they are "different", perceiving this change to be positive. Reviewed recommendation that we work toward consolidating his antipsychotic options back to only two choices - this provider recommended discontinuation of chlorpromazine. Pt is declining to discontinue chlorpromazine as he perceives it to be effective, but he is agreeable with reducing the dose of haloperidol. Will reduce haloperidol to 5mg BID - continue chlorpromazine 25mg TID and paliperidone 9mg qAM. - Pt is to meet with [facility] staff today to set up case management services. - Coordinate discharge planning with [facility] staff. (2) Self-injurious behavior: 07/02 -patient denies pain or discomfort, no signs of infection. May use bacitracin ointment if needed. Patient able to contract for safety in the hospital. Continue to work on healthy coping skills and discharge safety plan. 07/05 - Pt reports thoughts/urges to harm himself using "a cigarette", able to contract for safety here on the unit, but admits he would have difficulty refraining from self-harm if he were discharged 07/06--reviewed. 07/09 - Pt denies active SIB urges or behavior today - states "I'm only thinking about it because you brought it up." Risk Factors Assessment Male: Yes : Yes Do You Have Access To A Gun?: No Health Problems: No Mental Health Diagnoses: Yes Substance Use Disorders: No Previous Attempt: Yes Previous Attempt; Highly Lethal: Yes Previous Psychiatric Hospitalization: Yes Hopelessness: Yes Smoker: Yes Protective Factors Assessment : No Responsible for Young Children: No Employed: No Stable Relationships: No Supportive Family: No Good Rapport with Provider: Yes Interval History Identifying Information CASEY DAMIAN is a 50-year-old M who currently lives in [place] [facility], has a history of schizophrenia, and was admitted on 07/01/20 15:21 on a 201 voluntary commitment for self injury by cutting. Chief Complaint "Um, I'm just tired." Review of Systems Notes Constitutional: reports fatigue Cardiovascular: denied Respiratory: denied Gastrointestinal: denied Neurological: denied Psychiatric: denies symptoms other than stated above Total of at least 10 systems reviewed, pertinent positives as above and in HPI. Sleep Information Total Hours of Sleep: 7 Meal Information Percent Meal Consumed - Breakfast: 100 Percent Meal Consumed - Lunch: 100 Percent Meal Consumed - Dinner: 95 Subjective Subjective Patient was seen & assessed and interval progress reviewed with nursing and social work. Staff report the patient has been participating in group programming as tolerated. He continues to be distracted by auditory hallucinations, which he states increase irritability. Per [facility] staff, patient's behavior is likely baseline, but medication changes are ongoing. Pt rated his mood a 5-6/10 and "unsure" during community meeting, where he reported his goal was to hear what the voices are saying. Pt was seen today to assess progress since admission. The patient reports he is doing well, but is fatigued today. He does admit to ongoing auditory hallucinations, but states he is not able to make out what they are saying. Patient's reports continue to be somewhat vague, but he is able to state that the voices sound "different." He could not specifically comment on frequency or severity of the auditory hallucinations, but was able to state that he perceives the changes to be "positive." Pt is hopeful "that the medication changes will help in the long run." He denies any acute concerns or side effects today. We discussed recommendation that we work toward reducing his antipsychotics back to just two medications. This provider encouraged discontinuation of chlorpromazine; however, patient is unwilling to stop the medication as he perceives it to be more helpful. He was willing to continue to reduce the dosage of haloperidol. Pt denies SI and self-harm urges, but did state "I'm only thinking about it because you brought it up." Pt denied other concerns and was reminded of scheduled meeting with [facility] staff to initiate case management services. Physical Exam Psychiatric Orientation: alert, oriented x 3 and cooperative (timid, but pleasant ) Apperance: appropriately dressed and + disheveled (hygiene appears adequate, but hair is long and unkempt) Eye Contact: good eye contact Motor Behavior: no abnormal motor movements (observed while laying in bed) Speech: normal rate/rhythm/volume of speech (brief responses to questions) Affect: + constricted affect Thought Process: + concrete thought process Thought Content: no delusions and no hopelessness Suicidal Thoughts: denies suicidal thoughts Homicidal Thoughts: denies homicidal thoughts Hallucinations: + auditory hallucinations; no visual hallucinations Insight: + fair insight Judgement: + fair judgement Vital Signs (Past 24 Hours) Last Vital Signs Temp 36.4 C L 07/09/20 06:33 Pulse 101 H 07/09/20 06:34 Resp 16 07/09/20 06:33 BP 115/81 07/09/20 06:34 Pulse Ox 97 07/01/20 13:15 Results & Data ([facility]) Current Inpatient Medications Current Inpatient Medications: Current Inpatient Medications Acetaminophen (Acetaminophen 325 Mg Tab) 650 mg PO Q4H PRN PRN Reason: Headache or Minor Fever Stop: 07/31/20 15:20 Al Hydrox/Mg Hydrox/Simethicone (Aluminum/Magnesium Susp 30 Ml Udc) 30 ml PO Q4H PRN PRN Reason: GI Upset Stop: 07/31/20 15:20 Benztropine Mesylate (Benztropine Mesylate 0.5 Mg Tab) 0.5 mg PO BID [facility] Stop: 07/31/20 20:59 Last Admin: 07/09/20 07:20 Dose: 0.5 mg Documented by: Bismuth Subsalicylate (Bismuth Subsalicylate Liqd 236 Ml) 15 ml PO PRN PRN PRN Reason: Loose Stool Stop: 07/31/20 15:20 Chlorpromazine HCl (Chlorpromazine Hcl 25 Mg Tab) 25 mg PO TID [facility] Stop: 08/02/20 13:59 Last Admin: 07/09/20 07:21 Dose: 25 mg Documented by: Haloperidol (Haloperidol 5 Mg Tab) 10 mg PO HS [facility]EL Stop: 08/04/20 21:59 Last Admin: 07/08/20 20:29 Dose: 10 mg Documented by: Haloperidol (Haloperidol 5 Mg Tab) 5 mg PO DAILY [facility] Stop: 08/05/20 08:59 Last Admin: 07/09/20 07:21 Dose: 5 mg Documented by: Hydroxyzine HCl (Hydroxyzine Hcl 25 Mg Tab) 50 mg PO HSZ PRN PRN Reason: Insomnia Stop: 07/31/20 15:20 Last Admin: 07/02/20 00:18 Dose: 50 mg Documented by: Hydroxyzine HCl (Hydroxyzine Hcl 25 Mg Tab) 25 mg PO Q4H PRN PRN Reason: Anxiety Stop: 07/31/20 15:20 Magnesium Hydroxide (Magnesium Hydroxide Susp 30 Ml Udc) 30 ml PO DAILY PRN PRN Reason: Constipation Stop: 07/31/20 15:20 Miscellaneous (Remove Nicoderm Patch) 1 ea N/A DAILY@0859 [facility] Stop: 08/01/20 08:58 Last Admin: 07/09/20 07:23 Dose: Not Given Documented by: Nicotine (Nicotine 21 Mg/24 Hr Tdsy) 21 mg TD QAM [facility] Stop: 08/01/20 08:59 Last Admin: 07/09/20 07:22 Dose: Not Given Documented by: Paliperidone (Paliperidone 3 Mg Tabcr) 9 mg PO DAILY [facility]UEL Stop: 08/05/20 08:59 Last Admin: 07/09/20 07:21 Dose: 9 mg Documented by: Sodium Chloride (Sodium Chloride 0.65% Na Soln 45 Ml ([place])) 1 - 2 sprays NA PRN PRN PRN Reason: Nasal Dryness/Congestion Stop: 07/31/20 15:20 Trazodone HCl (Trazodone Hcl 100 Mg Tab) 100 mg PO HS [facility] Stop: 07/31/20 20:59 Last Admin: 07/08/20 20:29 Dose: 100 mg Documented by: Mental Health & Subst Abuse Tx Psychiatrist Name of Psychiatrist: Lala Dowell Psychiatrist's Date of Appointment with Psychiatrist: 08/02/20 Time of Appointment with Psychiatrist: 10:00 am Psychiatric Appointment Comment: [id number] [place], [place] Therapist Name of Therapist: Lala Taylor Therapist's Date of Therapist Appointment: 07/12/20 Time of Therapist Appointment: 10:00 am Therapy Appointment Comment: [id number] Steve Trinidad [place], [place] Climatology Professor Name of Climatology Professor: U Phone Number for Climatology Professor: [phone] Post Discharge Appointments Partial or Psych Rehab Name of Partial or Psych Rehab: [facility] [place] Psych Rehab Phone Number of Partial or Psych Rehab: [phone] Date of Appointment at Partial or Psych Rehab: 07/16/20 Time of Appointment at Partial or Psych Rehab: Continue your schedule Partial or Psych Rehab Appointment Comment: [address], [place] [address] Other #1: Name of Aftercare Appointment: Jonnie Teran Go[place] Phone Number of Aftercare Appointment: [phone] Aftercare Appointment Comment: Return at discharge Contact Information Discharge Discharge Address: [address] [place] [address], [place] [address] Contact Information Comment: Jonnie DAWSON
[2020-07-09] MEDS: traZODone HCL 100 MG TAB PO SCH (20:21)
[2020-07-10] MEDS: BENZTROPINE MESYLATE 0.5 MG TAB PO SCH ×2 (07:54→20:14)
[2020-07-10] MEDS: PALIPERIDONE 3 MG TABCR PO SCH (07:54)
[2020-07-10] MEDS: haloperidoL 5 MG TAB PO SCH ×2 (07:54→20:15)
[2020-07-10] MEDS: NICOTINE 21 MG/24 HR TDSY TD SCH (07:55)
[2020-07-10] MEDS: chlorproMAZINE HCL 25 MG TAB PO SCH ×3 (07:55→20:14)
--- NOTE | 2020-07-10 09:48 | Psychiatric Progress Note ---
Date of Service July 10, 2020 Impression / Recommendations Impression 50-year-old single male who lives in a [employer] retirement, has a history of schizophrenia with a very serious suicide attempt approximately 2 years ago by cutting his neck, who is admitted voluntarily with self injury by cutting/burning in the context of increased auditory, visual hallucinations, and paranoia. We are cross tapering from Haldol and Thorazine to paliperidone to target psychotic symptoms. Inpatient treatment is medically necessary due to need to ensure stability after significant medication adjustments, the severity of symptoms, and the risk for suicide/self-harm if discharged. (1) Schizophrenia: 07/02 -Continue voluntary hospitalization, every 15 minute checks for safety. -Encourage group participation, work on healthy coping skills and discharge safety plan. -Coordinate care with NOREEN Smith, at [facility]. Patient currently stating he is not interested in medication changes, but would like to explore options to better control his psychotic symptoms. -Coordinate with his case operator and retirement staff. 07/03 -spoke with NOREEN Smith, regarding patient's history and medication options. Although his mood has been fairly stable over the past couple of years, he has had mild depressive symptoms and persistent psychosis, which worsened with disruption of his routine due to the pandemic. He has been on high-dose haloperidol, and initially the addition of chlorpromazine appeared beneficial, but recently psychosis has been worsening. Discussed medication options with the patient, including olanzapine and paliperidone. After discussion of risks, benefits, and side effects, he elected for a trial of paliperidone. Will start 3 mg daily, titrate as tolerated, while decreasing haloperidol and chlorpromazine doses. Discussed risk of metabolic syndrome, movement disorders, and the need to monitor fasting labs. Order FLP and FG for tomorrow. 07/04 -continue cross taper; reduce Haldol to 10 mg every morning and 15 mg at bedtime for tomorrow, and increase paliperidone to 6 mg daily for tomorrow. -Reviewed FLP and FG for monitoring on an atypical antipsychotic; all within normal limits. -Continue medically necessary private room for psychosis, and encourage patient to attend and participate in groups as able, although he is easily overstimulated, and may need breaks from the milieu. 07/05 - Continuing cross-taper. Pt does report an episode of emesis this morning, but states it was prior to taking his AM medications. Pt denies persistent nausea or other significant side effects. Will reduce HS dose of Haldol to 10mg tonight, and decrease AM dose to 5mg tomorrow. Invega being titrated to 9mg tomorrow morning. Pt denies symptoms suggestive of EPS. Continue cross-taper as tolerated. - Pt continues to attend only minimal group programming due to difficulty concentrating in the context of continued auditory hallucinations. When he has been out of his room, he has been polite and interactive with peers. - Continue MNPR at this time. 07/06--reviewed above. 1 st day of Haldol decrease, Invega increase. Monitor for ability to taper Haldol further. readdress HAYES. 07/07--improving. Plan: continue current meds and treatment plan. 07/08--remains improved, staff got updates re: baseline from [facility] and they were comfortable with [facility]. Plan: continue current meds and treatment plan. 07/09--Ongoing reported improvement. Pt admits to continued auditory hallucinations and states they are "different", perceiving this change to be positive. Reviewed recommendation that we work toward consolidating his antipsychotic options back to only two choices - this provider recommended discontinuation of chlorpromazine. Pt is declining to discontinue chlorpromazine as he perceives it to be effective, but he is agreeable with reducing the dose of haloperidol. Will reduce haloperidol to 5mg BID - continue chlorpromazine 25mg TID and paliperidone 9mg qAM. - Pt is to meet with [facility] staff today to set up case management services. - Coordinate discharge planning with [facility] staff. 07/10 - Pt continues to report improvement. Admits auditory hallucinations are ongoing, but not distressing (have been long-standing). Pt agrees to continue medication adjustments - will increase paliperidone to 12mg tomorrow, while continuing to taper haloperidol. Adjustments to dosing of chlorpromazine can be considered on an outpatient basis if necessary. - Will coordinate discharge planning with [facility] - encouraging a meeting with patient's goal manager truck to discuss safety planning and discharge transition. (2) Self-injurious behavior: 07/02 -patient denies pain or discomfort, no signs of infection. May use bacitracin ointment if needed. Patient able to contract for safety in the hospital. Continue to work on healthy coping skills and discharge safety plan. 07/05 - Pt reports thoughts/urges to harm himself using "a cigarette", able to contract for safety here on the unit, but admits he would have difficulty refraining from self-harm if he were discharged 07/06--reviewed. 07/09 - Pt denies active SIB urges or behavior today - states "I'm only thinking about it because you brought it up." 07/10 - Pt continues to deny thoughts of self-harm Risk Factors Assessment Male: Yes : Yes Do You Have Access To A Gun?: No Health Problems: No Mental Health Diagnoses: Yes Substance Use Disorders: No Previous Attempt: Yes Previous Attempt; Highly Lethal: Yes Previous Psychiatric Hospitalization: Yes Hopelessness: Yes Smoker: Yes Protective Factors Assessment : No Responsible for Young Children: No Employed: No Stable Relationships: No Supportive Family: No Good Rapport with Provider: Yes Interval History Identifying Information CASEY DAMIAN is a 50-year-old M who currently lives in [facility] housing, has a history of schizophrenia, and was admitted on 07/01/20 15:21 on a 201 voluntary commitment for self injury by cutting. Chief Complaint "Um, I'm fine." Review of Systems Notes Constitutional: denied Cardiovascular: denied Respiratory: denied Gastrointestinal: denied Neurological: denied Psychiatric: denies symptoms other than stated above Total of at least 10 systems reviewed, pertinent positives as above and in HPI. Sleep Information Total Hours of Sleep: 5.4 Sleep Comments: pt on q-15 minute checks Meal Information Percent Meal Consumed - Breakfast: 100 Percent Meal Consumed - Lunch: 100 Percent Meal Consumed - Dinner: 90 Subjective Subjective Patient was seen & assessed and interval progress reviewed with treatment team. Staff report the patient participated in a positive meeting with [facility] manager of case management yesterday. He has been attending groups with increased frequency, but does retreat back to his room during free time. He did report to staff that the auditory hallucinations were telling him not to trust another patient on the unit. He also shared that he has started considering moving to [place] to be closer to his family. Pt was seen today to assess progress since admission. Pt reports he is "fine" today. He states he was happy to meet his manager of case management yesterday and states "it was pretty much just to fill out paperwork and get to know them." He does feel this will be a good service to use moving forward. Pt reports his mood continues to be decent. He denies acute concerns. He was able to state that "in general, overall, I guess I do feel that things are getting better." Patient's reports are generally vague and sometimes conflicting. He initially stated "the voices were there yesterday, but I'm fine this morning." He then shared that during our conversation today the voices had been saying "she's not a real medical coding auditor" - referring to this PA. The patient states that the voices are not particularly distressing, though there are times he feels led to believe what they tell him. Pt agreed to continuing medication adjustments with the hope to reduce his antipsychotic regimen back to two agents. Pt agreed to reduction in haloperidol dosing while titrating paliperidone further. Pt denied thoughts of self-harm or suicide. Pt does not yet feel safe/ready for discharge, but he did admit to feeling the treatment team's estimate of 3-5 days sounded appropriate. He denied other needs or concerns today. Physical Exam Psychiatric Orientation: alert, oriented x 3 and cooperative (timid, but pleasant) Apperance: appropriately dressed, + disheveled (long bullard/brown hair, often unkempt) and appeared stated age Eye Contact: good eye contact Motor Behavior: no abnormal motor movements (observed while laying in bed) Speech: + abnormal rate/rhythm/volume of speech Speech: generally non-spontaneous, brief responses to questions, polite tone Affect: + blunted affect and + constricted affect Mood: no depressed mood ("I'm fine") Thought Process: goal directed thought process and + concrete thought process Thought Content: reality based without delusions; no hopelessness and no worthlessness Suicidal Thoughts: denies suicidal thoughts and denies suicidal intent Homicidal Thoughts: denies homicidal thoughts Hallucinations: + auditory hallucinations (states he is occasionally able to make out what the voices say) Cognition: attention grossly intact and language grossly intact Estimated Intelligence: consistent with education level Insight: + fair insight Judgement: + fair judgement Vital Signs (Past 24 Hours) Last Vital Signs Temp 36.6 C 07/10/20 06:25 Pulse 76 07/10/20 06:26 Resp 16 07/10/20 06:25 BP 118/77 07/10/20 06:26 Pulse Ox 97 07/01/20 13:15 Results & Data ([facility]) Current Inpatient Medications Current Inpatient Medications: Current Inpatient Medications Acetaminophen (Acetaminophen 325 Mg Tab) 650 mg PO Q4H PRN PRN Reason: Headache or Minor Fever Stop: 07/31/20 15:20 Al Hydrox/Mg Hydrox/Simethicone (Aluminum/Magnesium Susp 30 Ml Udc) 30 ml PO Q4H PRN PRN Reason: GI Upset Stop: 07/31/20 15:20 Benztropine Mesylate (Benztropine Mesylate 0.5 Mg Tab) 0.5 mg PO BID JOSEMANUEL Stop: 07/31/20 20:59 Last Admin: 07/10/20 07:54 Dose: 0.5 mg Documented by: Bismuth Subsalicylate (Bismuth Subsalicylate Liqd 236 Ml) 15 ml PO PRN PRN PRN Reason: Loose Stool Stop: 07/31/20 15:20 Chlorpromazine HCl (Chlorpromazine Hcl 25 Mg Tab) 25 mg PO TID JOSEMANUEL Stop: 08/02/20 13:59 Last Admin: 07/10/20 07:55 Dose: 25 mg Documented by: Haloperidol (Haloperidol 5 Mg Tab) 5 mg PO DAILY JOSEMANUEL Stop: 08/05/20 08:59 Last Admin: 07/10/20 07:54 Dose: 5 mg Documented by: Haloperidol (Haloperidol 5 Mg Tab) 5 mg PO HS JOSEMANUEL Stop: 08/08/20 21:59 Last Admin: 07/09/20 20:22 Dose: 5 mg Documented by: Hydroxyzine HCl (Hydroxyzine Hcl 25 Mg Tab) 50 mg PO HSZ PRN PRN Reason: Insomnia Stop: 07/31/20 15:20 Last Admin: 07/02/20 00:18 Dose: 50 mg Documented by: Hydroxyzine HCl (Hydroxyzine Hcl 25 Mg Tab) 25 mg PO Q4H PRN PRN Reason: Anxiety Stop: 07/31/20 15:20 Magnesium Hydroxide (Magnesium Hydroxide Susp 30 Ml Udc) 30 ml PO DAILY PRN PRN Reason: Constipation Stop: 07/31/20 15:20 Miscellaneous (Remove Nicoderm Patch) 1 ea N/A DAILY@[id number] [facility] Stop: 08/01/20 08:58 Last Admin: 07/10/20 07:55 Dose: Not Given Documented by: Nicotine (Nicotine 21 Mg/24 Hr Tdsy) 21 mg TD QAM JOSEMANUEL Stop: 08/01/20 08:59 Last Admin: 07/10/20 07:55 Dose: Not Given Documented by: Paliperidone (Paliperidone 3 Mg Tabcr) 9 mg PO DAILY JOSEMANUEL Stop: 08/05/20 08:59 Last Admin: 07/10/20 07:54 Dose: 9 mg Documented by: Sodium Chloride (Sodium Chloride 0.65% Na Soln 45 Ml ([place])) 1 - 2 sprays NA PRN PRN PRN Reason: Nasal Dryness/Congestion Stop: 07/31/20 15:20 Trazodone HCl (Trazodone Hcl 100 Mg Tab) 100 mg PO HS JOSEMANUEL Stop: 07/31/20 20:59 Last Admin: 07/09/20 20:21 Dose: 100 mg Documented by: Mental Health & Subst Abuse Tx Psychiatrist Name of Psychiatrist: Lala Dowell Psychiatrist's Date of Appointment with Psychiatrist: 08/02/20 Time of Appointment with Psychiatrist: 10:00 am Psychiatric Appointment Comment: [id number] [place] Therapist Name of Therapist: Lala Taylor Therapist's Date of Therapist Appointment: 07/12/20 Time of Therapist Appointment: 10:00 am Therapy Appointment Comment: [id number] [place] Veterinary Dentist Name of Veterinary Dentist: GLENU [facility] Phone Number for Veterinary Dentist: [phone] Date of Appointment with Veterinary Dentist: 07/19/20 Time of Appointment with Veterinary Dentist: Will call you to check in Post Discharge Appointments Partial or Psych Rehab Name of Partial or Psych Rehab: [facility] [place] [facility] Phone Number of Partial or Psych Rehab: [phone] Date of Appointment at Partial or Psych Rehab: 07/16/20 Time of Appointment at Partial or Psych Rehab: Continue your schedule Partial or Psych Rehab Appointment Comment: [id number] [place] [address] Other #1: Name of Aftercare Appointment: Jonnie Teran Goal Special Services Agent Phone Number of Aftercare Appointment: [phone] Aftercare Appointment Comment: Return at discharge Contact Information Discharge Discharge Address: [address] [place] [address], [place], [place] [address] Contact Information Comment: Jonnie DAWSON
[2020-07-10] MEDS: traZODone HCL 100 MG TAB PO SCH (20:15)
[2020-07-11] MEDS: chlorproMAZINE HCL 25 MG TAB PO SCH ×3 (08:00→20:25)
[2020-07-11] MEDS: BENZTROPINE MESYLATE 0.5 MG TAB PO SCH ×2 (08:00→20:25)
[2020-07-11] MEDS: NICOTINE 21 MG/24 HR TDSY TD SCH (08:01)
[2020-07-11] MEDS: PALIPERIDONE 3 MG TABCR PO SCH (08:12)
--- NOTE | 2020-07-11 09:43 | Psychiatric Progress Note ---
Date of Service July 11, 2020 Impression / Recommendations Impression 50-year-old single male who lives in a [facility] custodial, has a history of schizophrenia with a very serious suicide attempt approximately 2 years ago by cutting his neck, who is admitted voluntarily with self injury by cutting/burning in the context of increased auditory, visual hallucinations, and paranoia. We are cross tapering from Haldol and Thorazine to paliperidone to target psychotic symptoms. Inpatient treatment is medically necessary due to need to ensure stability after significant medication adjustments, the severity of symptoms, and the risk for suicide/self-harm if discharged. (1) Schizophrenia: 07/02 -Continue voluntary hospitalization, every 15 minute checks for safety. -Encourage group participation, work on healthy coping skills and discharge safety plan. -Coordinate care with NOREEN Smith, at [facility]. Patient currently stating he is not interested in medication changes, but would like to explore options to better control his psychotic symptoms. -Coordinate with his egg caser and custodial staff. 07/03 -spoke with NOREEN Smith, regarding patient's history and medication options. Although his mood has been fairly stable over the past couple of years, he has had mild depressive symptoms and persistent psychosis, which worsened with disruption of his routine due to the pandemic. He has been on high-dose haloperidol, and initially the addition of chlorpromazine appeared beneficial, but recently psychosis has been worsening. Discussed medication options with the patient, including olanzapine and paliperidone. After discussion of risks, benefits, and side effects, he elected for a trial of paliperidone. Will start 3 mg daily, titrate as tolerated, while decreasing haloperidol and chlorpromazine doses. Discussed risk of metabolic syndrome, movement disorders, and the need to monitor fasting labs. Order FLP and FG for tomorrow. 07/04 -continue cross taper; reduce Haldol to 10 mg every morning and 15 mg at bedtime for tomorrow, and increase paliperidone to 6 mg daily for tomorrow. -Reviewed FLP and FG for monitoring on an atypical antipsychotic; all within normal limits. -Continue medically necessary private room for psychosis, and encourage patient to attend and participate in groups as able, although he is easily overstimulated, and may need breaks from the milieu. 07/05 - Continuing cross-taper. Pt does report an episode of emesis this morning, but states it was prior to taking his AM medications. Pt denies persistent nausea or other significant side effects. Will reduce HS dose of Haldol to 10mg tonight, and decrease AM dose to 5mg tomorrow. Invega being titrated to 9mg tomorrow morning. Pt denies symptoms suggestive of EPS. Continue cross-taper as tolerated. - Pt continues to attend only minimal group programming due to difficulty concentrating in the context of continued auditory hallucinations. When he has been out of his room, he has been polite and interactive with peers. - Continue MNPR at this time. 07/06--reviewed above. 1 st day of Haldol decrease, Invega increase. Monitor for ability to taper Haldol further. readdress HAYES. 07/07--improving. Plan: continue current meds and treatment plan. 07/08--remains improved, staff got updates re: baseline from [facility] and they were comfortable with [facility]. Plan: continue current meds and treatment plan. 07/09--Ongoing reported improvement. Pt admits to continued auditory hallucinations and states they are "different", perceiving this change to be positive. Reviewed recommendation that we work toward consolidating his antipsychotic options back to only two choices - this provider recommended discontinuation of chlorpromazine. Pt is declining to discontinue chlorpromazine as he perceives it to be effective, but he is agreeable with reducing the dose of haloperidol. Will reduce haloperidol to 5mg BID - continue chlorpromazine 25mg TID and paliperidone 9mg qAM. - Pt is to meet with [facility] staff today to set up case management services. - Coordinate discharge planning with [facility] staff. 07/10 - Pt continues to report improvement. Admits auditory hallucinations are ongoing, but not distressing (have been long-standing). Pt agrees to continue medication adjustments - will increase paliperidone to 12mg tomorrow, while continuing to taper haloperidol. Adjustments to dosing of chlorpromazine can be considered on an outpatient basis if necessary. - Will coordinate discharge planning with [facility] - encouraging a meeting with patient's goal lawn service manager to discuss safety planning and discharge transition. 07/11 - Ongoing improvement reported - medication adjustments ongoing. Pt titrated to 12mg of paliperidone - will plan for last dose of haloperidol to be given this evening. - Encouraging support meeting with [facility] staff to discuss safety planning and discharge transition, as well as gather thoughts from the staff regarding proximity to baseline and readiness for discharge. (2) Self-injurious behavior: 07/02 -patient denies pain or discomfort, no signs of infection. May use bacitracin ointment if needed. Patient able to contract for safety in the hospital. Continue to work on healthy coping skills and discharge safety plan. 07/05 - Pt reports thoughts/urges to harm himself using "a cigarette", able to contract for safety here on the unit, but admits he would have difficulty refraining from self-harm if he were discharged 07/06--reviewed. 07/09 - Pt denies active SIB urges or behavior today - states "I'm only thinking about it because you brought it up." 07/10 - 07/11 - Pt continues to deny thoughts of self-harm Risk Factors Assessment Male: Yes : Yes Do You Have Access To A Gun?: No Health Problems: No Mental Health Diagnoses: Yes Substance Use Disorders: No Previous Attempt: Yes Previous Attempt; Highly Lethal: Yes Previous Psychiatric Hospitalization: Yes Hopelessness: Yes Smoker: Yes Protective Factors Assessment : No Responsible for Young Children: No Employed: No Stable Relationships: No Supportive Family: No Good Rapport with Provider: Yes Interval History Identifying Information CASEY DAMIAN is a 50-year-old M who currently lives in [place] [facility], has a history of schizophrenia, and was admitted on 07/01/20 15:21 on a 201 voluntary commitment for self injury by cutting. Chief Complaint "I'm fine. Still sleepy." Review of Systems Notes Constitutional: reports mild fatigue this morning Cardiovascular: denied Respiratory: denied Gastrointestinal: denied Neurological: denied Psychiatric: denies symptoms other than stated above Total of at least 10 systems reviewed, pertinent positives as above and in HPI. Sleep Information Total Hours of Sleep: 6 Sleep Comments: pt on q-15 minute checks Meal Information Percent Meal Consumed - Breakfast: 100 Percent Meal Consumed - Lunch: 100 Percent Meal Consumed - Dinner: 100 Subjective Subjective Patient was seen & assessed and interval progress reviewed with nursing and soc ial work. Staff report the patient has been participating in group programming, though often retreats to his room between groups. No reported incidents overnight. It is reported that patient clarified thoughts regarding statements to move to [place] to be with his family, stating this consideration would be within the next year or longer - recognizing the weight of the decision and arrangements that would need to be made. Pt was seen today to assess progress since admission. The patient states he is "fine" but reporting still feeling a bit tired this morning. He denies any acute concerns or perceived medication side effects. The patient denies any suicidal ideation or self-harm urges. He continues to feel that medication adjustments have been beneficial. Pt was asked his thoughts regarding readiness for discharge and did admit to feeling he was not yet ready/safe to return to the [facility]. Pt does feel that a few more day would be beneficial. Physical Exam Psychiatric Orientation: alert, oriented x 3 and cooperative (and pleasant - though remains timid and withdrawn) Apperance: appropriately dressed, + disheveled and appeared stated age; + inappropriately groomed Eye Contact: good eye contact Motor Behavior: no abnormal motor movements (observed while sitting on bed) Speech: nonspontaneous, polite tone, brief responses to questions Affect: + blunted affect and + constricted affect Mood: no depressed mood ("fine") Thought Process: goal directed thought process and + concrete thought process Thought Content: reality based without delusions Suicidal Thoughts: denies suicidal thoughts Homicidal Thoughts: denies homicidal thoughts Hallucinations: no auditory hallucinations and no visual hallucinations though reliability of denial of AH is uncertain, given how chronic this has been for the patient. Cognition: attention grossly intact and language grossly intact Insight: + fair insight Judgement: + fair judgement Vital Signs (Past 24 Hours) Last Vital Signs Temp 36.6 C 07/11/20 06:34 Pulse 98 H 07/11/20 06:34 Resp 16 07/11/20 06:34 BP 127/80 07/11/20 06:34 Pulse Ox 97 07/01/20 13:15 Results & Data ([facility]) Current Inpatient Medications Current Inpatient Medications: Current Inpatient Medications Acetaminophen (Acetaminophen 325 Mg Tab) 650 mg PO Q4H PRN PRN Reason: Headache or Minor Fever Stop: 07/31/20 15:20 Al Hydrox/Mg Hydrox/Simethicone (Aluminum/Magnesium Susp 30 Ml Udc) 30 ml PO Q4H PRN PRN Reason: GI Upset Stop: 07/31/20 15:20 Benztropine Mesylate (Benztropine Mesylate 0.5 Mg Tab) 0.5 mg PO BID JOSEMANUEL Stop: 07/31/20 20:59 Last Admin: 07/11/20 08:00 Dose: 0.5 mg Documented by: Bismuth Subsalicylate (Bismuth Subsalicylate Liqd 236 Ml) 15 ml PO PRN PRN PRN Reason: Loose Stool Stop: 07/31/20 15:20 Chlorpromazine HCl (Chlorpromazine Hcl 25 Mg Tab) 25 mg PO TID [facility] Stop: 08/02/20 13:59 Last Admin: 07/11/20 08:00 Dose: 25 mg Documented by: Haloperidol (Haloperidol 5 Mg Tab) 5 mg PO HS [facility] Stop: 08/08/20 21:59 Last Admin: 07/10/20 20:15 Dose: 5 mg Documented by: Hydroxyzine HCl (Hydroxyzine Hcl 25 Mg Tab) 50 mg PO HSZ PRN PRN Reason: Insomnia Stop: 07/31/20 15:20 Last Admin: 07/02/20 00:18 Dose: 50 mg Documented by: Hydroxyzine HCl (Hydroxyzine Hcl 25 Mg Tab) 25 mg PO Q4H PRN PRN Reason: Anxiety Stop: 07/31/20 15:20 Magnesium Hydroxide (Magnesium Hydroxide Susp 30 Ml Udc) 30 ml PO DAILY PRN PRN Reason: Constipation Stop: 07/31/20 15:20 Miscellaneous (Remove Nicoderm Patch) 1 ea N/A DAILY@[id number] [facility] Stop: 08/01/20 08:58 Last Admin: 07/11/20 08:00 Dose: Not Given Documented by: Nicotine (Nicotine 21 Mg/24 Hr Tdsy) 21 mg TD QAM [facility] Stop: 08/01/20 08:59 Last Admin: 07/11/20 08:01 Dose: Not Given Documented by: Paliperidone (Paliperidone 3 Mg Tabcr) 12 mg PO DAILY [facility] Stop: 08/10/20 08:59 Last Admin: 07/11/20 08:12 Dose: 12 mg Documented by: Sodium Chloride (Sodium Chloride 0.65% Na Soln 45 Ml ([place])) 1 - 2 sprays NA PRN PRN PRN Reason: Nasal Dryness/Congestion Stop: 07/31/20 15:20 Trazodone HCl (Trazodone Hcl 100 Mg Tab) 100 mg PO HS JOSEMANUEL Stop: 07/31/20 20:59 Last Admin: 07/10/20 20:15 Dose: 100 mg Documented by: Mental Health & Subst Abuse Tx Psychiatrist Name of Psychiatrist: Lala Dowell Psychiatrist's Date of Appointment with Psychiatrist: 08/02/20 Time of Appointment with Psychiatrist: 10:00 am Psychiatric Appointment Comment: [id number] Steve Trinidad [place], NOREEN Therapist Name of Therapist: Lala Taylor Therapist's Date of Therapist Appointment: 07/12/20 Time of Therapist Appointment: 10:00 am Therapy Appointment Comment: Bernabe Wilson [place], [place]ORE[place] Creative Lead Name of Creative Lead: KATHIA Walker Phone Number for Creative Lead: [phone] Date of Appointment with Creative Lead: 07/19/20 Time of Appointment with Creative Lead: Will call you to check in Post Discharge Appointments Partial or Psych Rehab Name of Partial or Psych Rehab: [facility] [facility] Phone Number of Partial or Psych Rehab: [phone] Date of Appointment at Partial or Psych Rehab: 07/16/20 Time of Appointment at Partial or Psych Rehab: Continue your schedule Partial or Psych Rehab Appointment Comment: [id number], [place] [address] Other #1: Name of Aftercare Appointment: Jonnie Teran Goal Phone Number of Aftercare Appointment: [phone] Aftercare Appointment Comment: Return at discharge Contact Information Discharge Discharge Address: [address] [place] [address], [place] [address] Contact Information Comment: Jonnie DAWSON
[2020-07-11] MEDS: traZODone HCL 100 MG TAB PO SCH (20:25)
[2020-07-11] MEDS: haloperidoL 5 MG TAB PO SCH (20:26)
[2020-07-12] MEDS: PALIPERIDONE 3 MG TABCR PO SCH (08:12)
[2020-07-12] MEDS: BENZTROPINE MESYLATE 0.5 MG TAB PO SCH ×2 (08:13→20:36)
[2020-07-12] MEDS: chlorproMAZINE HCL 25 MG TAB PO SCH ×3 (08:13→20:36)
[2020-07-12] MEDS: NICOTINE 21 MG/24 HR TDSY TD SCH (08:15)
--- NOTE | 2020-07-12 10:23 | Psychiatric Progress Note ---
Date of Service July 12, 2020 Impression / Recommendations Impression 50-year-old single male who lives in a [facility]ci, has a history of schizophrenia with a very serious suicide attempt approximately 2 years ago by cutting his neck, who is admitted voluntarily with self injury by cutting/burning in the context of increased auditory, visual hallucinations, and paranoia. We are cross tapering from Haldol and Thorazine to paliperidone to target psychotic symptoms. Inpatient treatment is medically necessary due to need to ensure stability after significant medication adjustments, the severity of symptoms, and the risk for suicide/self-harm if discharged. Given that his symptoms of schizophrenia have been resistant to treatment over the 25-year course of his illness, and given his report that he has never had a trial of clozapine, a trial of this medication, given his known efficacy and treatment resistant forms of schizophrenia, would be indicated. However, the patient says that he believes that the combination of Thorazine and paliperidone is effe ctive, and there is some indication that although his auditory hallucinations persist he is at least returning to baseline. However, his improvement seems to vacillate, and that he may express great fear that he is going to be harmed by the unknown entities that he believes are following and threatening him, and then several hours later he may say that he realizes that these threats are empty threats because they have been present for many years and have not actually resulted in any physical harm. One of the patient's observations is that when he is active he is less likely to experience auditory hallucination is less likely to be frightened. Within this context, concern is that the patient spends a significant amount of time in bed, either sleeping or resting during the day, and then often does not sleep more than 4 to 6 hours at night. A more structured routine may be useful for the patient. He is considering switching from Invega oral 12 mg a day to Invega Sustenna, but expresses ambivalence and we are continuing to talk to him about this as an option. (1) Schizophrenia: 07/02 -Continue voluntary hospitalization, every 15 minute checks for safety. -Encourage group participation, work on healthy coping skills and discharge safety plan. -Coordinate care with NOREEN Smith, at [facility]. Patient currently stating he is not interested in medication changes, but would like to explore options to better control his psychotic symptoms. -Coordinate with his disease case manager and fci staff. 07/03 -spoke with NOREEN Smith, regarding patient's history and medication options. Although his mood has been fairly stable over the past couple of years, he has had mild depressive symptoms and persistent psychosis, which worsened with disruption of his routine due to the pandemic. He has been on high-dose haloperidol, and initially the addition of chlorpromazine appeared beneficial, but recently psychosis has been worsening. Discussed medication options with the patient, including olanzapine and paliperidone. After discussion of risks, benefits, and side effects, he elected for a trial of paliperidone. Will start 3 mg daily, titrate as tolerated, while decreasing haloperidol and chlorpromazine doses. Discussed risk of metabolic syndrome, movement disorders, and the need to monitor fasting labs. Order FLP and FG for tomorrow. 07/04 -continue cross taper; reduce Haldol to 10 mg every morning and 15 mg at bedtime for tomorrow, and increase paliperidone to 6 mg daily for tomorrow. -Reviewed FLP and FG for monitoring on an atypical antipsychotic; all within normal limits. -Continue medically necessary private room for psychosis, and encourage patient to attend and participate in groups as able, although he is easily overstimulated, and may need breaks from the milieu. 07/05 - Continuing cross-taper. Pt does report an episode of emesis this morning, but states it was prior to taking his AM medications. Pt denies persistent nausea or other significant side effects. Will reduce HS dose of Haldol to 10mg tonight, and decrease AM dose to 5mg tomorrow. Invega being titrated to 9mg tomorrow morning. Pt denies symptoms suggestive of EPS. Continue cross-taper as tolerated. - Pt continues to attend only minimal group programming due to difficulty concentrating in the context of continued auditory hallucinations. When he has been out of his room, he has been polite and interactive with peers. - Continue MNPR at this time. 07/06--reviewed above. 1 st day of Haldol decrease, Invega increase. Monitor for ability to taper Haldol further. readdress HAYES. 07/07--improving. Plan: continue current meds and treatment plan. 07/08--remains improved, staff got updates re: baseline from [facility] and they were comfortable with [facility]. Plan: continue current meds and treatment plan. 07/09--Ongoing reported improvement. Pt admits to continued auditory hallucinations and states they are "different", perceiving this change to be positive. Reviewed recommendation that we work toward consolidating his antipsychotic options back to only two choices - this provider recommended discontinuation of chlorpromazine. Pt is declining to discontinue chlorpromazine as he perceives it to be effective, but he is agreeable with reducing the dose of haloperidol. Will reduce haloperidol to 5mg BID - continue chlorpromazine 25mg TID and paliperidone 9mg qAM. - Pt is to meet with [facility] staff today to set up case management services. - Coordinate discharge planning with [facility] staff. 07/10 - Pt continues to report improvement. Admits auditory hallucinations are ongoing, but not distressing (have been long-standing). Pt agrees to continue medication adjustments - will increase paliperidone to 12mg tomorrow, while continuing to taper haloperidol. Adjustments to dosing of chlorpromazine can be considered on an outpatient basis if necessary. - Will coordinate discharge planning with [facility] - encouraging a meeting with patient's goal manager field services to discuss safety planning and discharge transition. 07/11 - Ongoing improvement reported - medication adjustments ongoing. Pt titrated to 12mg of paliperidone - will plan for last dose of haloperidol to be given this evening. - Encouraging support meeting with [facility] staff to discuss safety planning and discharge transition, as well as gather thoughts from the staff regarding proximity to baseline and readiness for discharge. 07/12 -Although last evening the patient had an episode during which she told staff he was very fearful that he was about to be harmed because he was hearing a voice telling him that he was in immediate danger, this seems to have resolved fairly quickly and he tells us today that his fear was unfounded because the threats have been present for a long time, yet he has never calmed any physical harm as a result of them. The patient says that he finds that Thorazine helps with his anxiety and his feeling of being "stressed," and paliperidone seems to, in his own words, help him "think better." He also says that the voices may be diminished in terms of volume, frequency and level of intensity -We have been talking the patient about possibly switching to Invega Sustenna for his convenience. The patient says that he is considering it and may be interested because he does feel that Invega is helpful to him. His observation is that Invega and Thorazine together are a helpful combination, and he notes that he feels that Haldol was not particularly helpful and is glad that it has been discontinued. (2) Self-injurious behavior: 07/02 -patient denies pain or discomfort, no signs of infection. May use bacitracin ointment if needed. Patient able to contract for safety in the hospital. Continue to work on healthy coping skills and discharge safety plan. 07/05 - Pt reports thoughts/urges to harm himself using "a cigarette", able to contract for safety here on the unit, but admits he would have difficulty refraining from self-harm if he were discharged 07/06--reviewed. 07/09 - Pt denies active SIB urges or behavior today - states "I'm only thinking about it because you brought it up." 07/10 - 07/11 - Pt continues to deny thoughts of self-harm 07/12 -Today, the patient chuckles when he reflects his observation that cutting and burning himself, while intended to serve as a protection against the threats that are being made against him by the above-referenced "unknown entities," he is continuing to periodically "here" the threats, and he notes that it seems obvious and logical that self-harm does not accomplish the intended goal. Within this context, he commits to not engaging in further instances of self- harm. -The meeting with his care providers at [facility] is scheduled for later today. Risk Factors Assessment Male: Yes : Yes Do You Have Access To A Gun?: No Health Problems: No Mental Health Diagnoses: Yes Substance Use Disorders: No Previous Attempt: Yes Previous Attempt; Highly Lethal: Yes Previous Psychiatric Hospitalization: Yes Hopelessness: Yes Smoker: Yes Protective Factors Assessment : No Responsible for Young Children: No Employed: No Stable Relationships: No Supportive Family: No Good Rapport with Provider: Yes Interval History Identifying Information CASEY DAMIAN is a 50-year-old M who currently lives in [place] housing, has a history of schizophrenia, and was admitted on 07/01/20 15:21 on a 201 voluntary commitment for self injury by cutting. Chief Complaint "I was cutting myself". Review of Systems Sleep Information Total Hours of Sleep: 4.25 Sleep Comments: pt on q-15 minute checks Meal Information Percent Meal Consumed - Breakfast: 90 Percent Meal Consumed - Lunch: 100 Percent Meal Consumed - Dinner: 100 Subjective Subjective Patient was seen & assessed and interval progress reviewed with treatment team. I met with him individually in order to assess his current mental status, evaluate his response to treatment, coordinate any necessary changes in his treatment regimen with the patient, and address issues, questions and concerns that may arise. The patient began by telling me that he was admitted because he had attempted to "protect [himself]" from "the people who are listening [to him]." Patient notes that he has been troubled for many years by unknown entities who he says commented on his activities, make threats, and let it be known that they are watching him and following him. He notes that he does not know who these people are, said that he was seeking a way to protect himself from them. At the same time, he explains that although his auditory hallucinations often include threats of physical harm to himself, he is aware that "in all these years" they have never actually followed through any of the threats, and he realizes that he is actually not in specific danger. Nevertheless, he finds the voices of these unknown entities to be distracting, disturbing, and, at times, frightening. The patient adds that when he keeps busy and is active the "voices" are less likely to bother him. I asked him if cutting (and burning) himself had made any difference in terms of the hallucinations, the patient kathleen said, "no. It did not do any good." He adds that he has no intention of cutting or burning himself in the future because it has proven to be an effective strategy. For most of today's encounter we discussed pharmacologic interventions. He notes that he has never taken clozapine, and we discussed this as an option, particularly given the fact that he has a 25-year history of essentially unrelenting auditory hallucinations. However, the patient tells me that he thinks Invega is helping and that he wants to keep taking it. He also notes that he likes Thorazine because it helps with anxiety and "stressful feelings." I asked him about the option of taking a long-term injectable form of Invega as a way of avoiding having to take this medication every day, the patient said that he is "thinking about it" and might agree to take it if were recommending it. However, he asked for "more time." I mentioned that I would talk to him about it later in the day to see if he has made a decision. He seems to be sleeping between 4 and 6 hours a night, but it is also noted that the patient seems to be taking naps during the day. I advised the patient, within the context of him saying that he is most likely to experience auditory hallucinations when he is busy and active that it might be a goal for him to stay out of bed and active during the day and try to sleep longer at night. The patient indicated understanding, but then immediately returned to bed at the end of the encounter. Physical Exam Psychiatric Orientation: alert, oriented x 3 and cooperative Apperance: appropriately dressed, appropriately groomed and appeared stated age Eye Contact: + fair eye contact Motor Behavior: + psychomotor retardation Speech: normal rate/rhythm/volume of speech The patient offers little spontaneously, but answers questions in full sentences and elaborates upon request. Affect: + constricted affect The patient does smile appropriately during the interview. "Okay." Thought Process: goal directed thought process Thought Content: + delusions The patient continues believe that there are entities who are monitoring, following him and listening to them. He also reports that these entities threatened him with physical harm. Suicidal Thoughts: denies suicidal thoughts Homicidal Thoughts: denies homicidal thoughts Hallucinations: + auditory hallucinations; no visual hallucinations, no tactile hallucinations and no gustatory hallucinations Cognition: recent memory grossly intact, remote memory grossly intact, attention grossly intact (Notes distraction secondary to auditory hallucinations.) and language grossly intact Estimated Intelligence: + above average estimated intelligence Insight: + limited insight Judgement: + limited judgement Vital Signs (Past 24 Hours) Last Vital Signs Temp 36.5 C 07/12/20 06:35 Pulse 96 H 07/12/20 06:36 Resp 16 07/12/20 06:35 BP 92/67 L 07/12/20 06:36 Pulse Ox 97 07/01/20 13:15 Results & Data ([facility]) Current Inpatient Medications Current Inpatient Medications: Current Inpatient Medications Acetaminophen (Acetaminophen 325 Mg Tab) 650 mg PO Q4H PRN PRN Reason: Headache or Minor Fever Stop: 07/31/20 15:20 Al Hydrox/Mg Hydrox/Simethicone (Aluminum/Magnesium Susp 30 Ml Udc) 30 ml PO Q4H PRN PRN Reason: GI Upset Stop: 07/31/20 15:20 Benztropine Mesylate (Benztropine Mesylate 0.5 Mg Tab) 0.5 mg PO BID [facility] Stop: 07/31/20 20:59 Last Admin: 07/12/20 08:13 Dose: 0.5 mg Documented by: Bismuth Subsalicylate (Bismuth Subsalicylate Liqd 236 Ml) 15 ml PO PRN PRN PRN Reason: Loose Stool Stop: 07/31/20 15:20 Chlorpromazine HCl (Chlorpromazine Hcl 25 Mg Tab) 25 mg PO TID [facility] Stop: 08/02/20 13:59 Last Admin: 07/12/20 08:13 Dose: 25 mg Documented by: Hydroxyzine HCl (Hydroxyzine Hcl 25 Mg Tab) 50 mg PO HSZ PRN PRN Reason: Insomnia Stop: 07/31/20 15:20 Last Admin: 07/02/20 00:18 Dose: 50 mg Documented by: Hydroxyzine HCl (Hydroxyzine Hcl 25 Mg Tab) 25 mg PO Q4H PRN PRN Reason: Anxiety Stop: 07/31/20 15:20 Magnesium Hydroxide (Magnesium Hydroxide Susp 30 Ml Udc) 30 ml PO DAILY PRN PRN Reason: Constipation Stop: 07/31/20 15:20 Miscellaneous (Remove Nicoderm Patch) 1 ea N/A [id number] [facility] Stop: 08/01/20 08:58 Last Admin: 07/12/20 08:15 Dose: Not Given Documented by: Nicotine (Nicotine 21 Mg/24 Hr Tdsy) 21 mg TD QAM [facility] Stop: 08/01/20 08:59 Last Admin: 07/12/20 08:15 Dose: Not Given Documented by: Paliperidone (Paliperidone 3 Mg Tabcr) 12 mg PO DAILY [facility] Stop: 08/10/20 08:59 Last Admin: 07/12/20 08:12 Dose: 12 mg Documented by: Sodium Chloride (Sodium Chloride 0.65% Na Soln 45 Ml ([place])) 1 - 2 sprays NA PRN PRN PRN Reason: Nasal Dryness/Congestion Stop: 07/31/20 15:20 Trazodone HCl (Trazodone Hcl 100 Mg Tab) 100 mg PO HS JOSEMANUEL Stop: 07/31/20 20:59 Last Admin: 07/11/20 20:25 Dose: 100 mg Documented by: Mental Health & Subst Abuse Tx Psychiatrist Name of Psychiatrist: Lala Dowell Psychiatrist's Date of Appointment with Psychiatrist: 08/02/20 Time of Appointment with Psychiatrist: 10:00 am Psychiatric Appointment Comment: Bernabe Trinidad [place] Therapist Name of Therapist: Lala Taylor Therapist's Date of Therapist Appointment: 07/12/20 Time of Therapist Appointment: 10:00 am Therapy Appointment Comment: Bernabe Trinidad [place] Cabin Crew Name of Cabin Crew: GLENU Ele Walker Phone Number for Cabin Crew: [phone] Date of Appointment with Cabin Crew: 07/19/20 Time of Appointment with Cabin Crew: Will call you to check in Post Discharge Appointments Partial or Psych Rehab Name of Partial or Psych Rehab: [facility] Psych Rehab Phone Number of Partial or Psych Rehab: [phone] Date of Appointment at Partial or Psych Rehab: 07/16/20 Time of Appointment at Partial or Psych Rehab: Continue your schedule Partial or Psych Rehab Appointment Comment: [id number] [place] [address] Contact Information Discharge Discharge Address: [address] [place] [address], [place] [address] Contact Information Comment: Jonnie DAWSON
[2020-07-12] MEDS: traZODone HCL 100 MG TAB PO SCH (20:36)
[2020-07-13] MEDS: PALIPERIDONE 3 MG TABCR PO SCH (08:03)
[2020-07-13] MEDS: BENZTROPINE MESYLATE 0.5 MG TAB PO SCH ×2 (08:03→20:16)
[2020-07-13] MEDS: NICOTINE 21 MG/24 HR TDSY TD SCH (08:03)
[2020-07-13] MEDS: chlorproMAZINE HCL 25 MG TAB PO SCH ×3 (08:04→20:17)
--- NOTE | 2020-07-13 10:32 | Psychiatric Progress Note ---
Date of Service July 13, 2020 Impression / Recommendations Impression 50-year-old single male who lives in a [facility], has a history of schizophrenia with a very serious suicide attempt approximately 2 years ago by cutting his neck, who is admitted voluntarily with self injury by cutting/burning in the context of increased auditory, visual hallucinations, and paranoia. We are cross tapering from Haldol and Thorazine to paliperidone to target psychotic symptoms. Inpatient treatment is medically necessary due to need to ensure stability after significant medication adjustments, the severity of symptoms, and the risk for suicide/self-harm if discharged. Given that his symptoms of schizophrenia have been resistant to treatment over the 25-year course of his illness, and given his report that he has never had a trial of clozapine, a trial of this medication, given his known efficacy and treatment resistant forms of schizophrenia, would be indicated. However, the patient says that he believes that the combination of Thorazine and paliperidone is effe ctive, and there is some indication that although his auditory hallucinations persist he is at least returning to baseline. However, his improvement seems to vacillate, and that he may express great fear that he is going to be harmed by the unknown entities that he believes are following and threatening him, and then several hours later he may say that he realizes that these threats are empty threats because they have been present for many years and have not actually resulted in any physical harm. One of the patient's observations is that when he is active he is less likely to experience auditory hallucination is less likely to be frightened. Within this context, concern is that the patient spends a significant amount of time in bed, either sleeping or resting during the day, and then often does not sleep more than 4 to 6 hours at night. A more structured routine may be useful for the patient. He is considering switching from Invega oral 12 mg a day to Invega Sustenna, but expresses ambivalence and we are continuing to talk to him about this as an option. (1) Schizophrenia: 07/02 -Continue voluntary hospitalization, every 15 minute checks for safety. -Encourage group participation, work on healthy coping skills and discharge safety plan. -Coordinate care with NOREEN Smith, at [place]. Patient currently stating he is not interested in medication changes, but would like to explore options to better control his psychotic symptoms. -Coordinate with his case loader operator and chcf staff. 07/03 -spoke with NOREEN Smith, regarding patient's history and medication options. Although his mood has been fairly stable over the past couple of years, he has had mild depressive symptoms and persistent psychosis, which worsened with disruption of his routine due to the pandemic. He has been on high-dose haloperidol, and initially the addition of chlorpromazine appeared beneficial, but recently psychosis has been worsening. Discussed medication options with the patient, including olanzapine and paliperidone. After discussion of risks, benefits, and side effects, he elected for a trial of paliperidone. Will start 3 mg daily, titrate as tolerated, while decreasing haloperidol and chlorpromazine doses. Discussed risk of metabolic syndrome, movement disorders, and the need to monitor fasting labs. Order FLP and FG for tomorrow. 07/04 -continue cross taper; reduce Haldol to 10 mg every morning and 15 mg at bedtime for tomorrow, and increase paliperidone to 6 mg daily for tomorrow. -Reviewed FLP and FG for monitoring on an atypical antipsychotic; all within normal limits. -Continue medically necessary private room for psychosis, and encourage patient to attend and participate in groups as able, although he is easily overstimulated, and may need breaks from the milieu. 07/05 - Continuing cross-taper. Pt does report an episode of emesis this morning, but states it was prior to taking his AM medications. Pt denies persistent nausea or other significant side effects. Will reduce HS dose of Haldol to 10mg tonight, and decrease AM dose to 5mg tomorrow. Invega being titrated to 9mg tomorrow morning. Pt denies symptoms suggestive of EPS. Continue cross-taper as tolerated. - Pt continues to attend only minimal group programming due to difficulty concentrating in the context of continued auditory hallucinations. When he has been out of his room, he has been polite and interactive with peers. - Continue MNPR at this time. 07/06--reviewed above. 1 st day of Haldol decrease, Invega increase. Monitor for ability to taper Haldol further. readdress HAYES. 07/07--improving. Plan: continue current meds and treatment plan. 07/08--remains improved, staff got updates re: baseline from [facility] and they were comfortable with EL[facility]. Plan: continue current meds and treatment plan. 07/09--Ongoing reported improvement. Pt admits to continued auditory hallucinations and states they are "different", perceiving this change to be positive. Reviewed recommendation that we work toward consolidating his antipsychotic options back to only two choices - this provider recommended discontinuation of chlorpromazine. Pt is declining to discontinue chlorpromazine as he perceives it to be effective, but he is agreeable with reducing the dose of haloperidol. Will reduce haloperidol to 5mg BID - continue chlorpromazine 25mg TID and paliperidone 9mg qAM. - Pt is to meet with [facility] staff today to set up case management services. - Coordinate discharge planning with [facility] staff. 07/10 - Pt continues to report improvement. Admits auditory hallucinations are ongoing, but not distressing (have been long-standing). Pt agrees to continue medication adjustments - will increase paliperidone to 12mg tomorrow, while continuing to taper haloperidol. Adjustments to dosing of chlorpromazine can be considered on an outpatient basis if necessary. 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 07/11 - Ongoing improvement reported - medication adjustments ongoing. Pt titrated to 12mg of paliperidone - will plan for last dose of haloperidol to be given this evening. - Encouraging support meeting with [facility] staff to discuss safety planning and discharge transition, as well as gather thoughts from the staff regarding proximity to baseline and readiness for discharge. 07/12 -Although last evening the patient had an episode during which she told staff he was very fearful that he was about to be harmed because he was hearing a voice telling him that he was in immediate danger, this seems to have resolved fairly quickly and he tells us today that his fear was unfounded because the threats have been present for a long time, yet he has never calmed any physical harm as a result of them. The patient says that he finds that Thorazine helps with his anxiety and his feeling of being "stressed," and paliperidone seems to, in his own words, help him "think better." He also says that the voices may be diminished in terms of volume, frequency and level of intensity -We have been talking the patient about possibly switching to Invega Sustenna for his convenience. The patient says that he is considering it and may be interested because he does feel that Invega is helpful to him. His observation is that Invega and Thorazine together are a helpful combination, and he notes that he feels that Haldol was not particularly helpful and is glad that it has been discontinued. 07/13 - continue medication and plan as above, he seems to be improving a little more each day (2) Self-injurious behavior: 07/02 -patient denies pain or discomfort, no signs of infection. May use bacitracin ointment if needed. Patient able to contract for safety in the hospital. Continue to work on healthy coping skills and discharge safety plan. 07/05 - Pt reports thoughts/urges to harm himself using "a cigarette", able to contract for safety here on the unit, but admits he would have difficulty refraining from self-harm if he were discharged 07/06--reviewed. 07/09 - Pt denies active SIB urges or behavior today - states "I'm only thinking about it because you brought it up." 07/10 - 07/11 - Pt continues to deny thoughts of self-harm 07/12 -Today, the patient chuckles when he reflects his observation that cutting and burning himself, while intended to serve as a protection against the threats that are being made against him by the above-referenced "unknown entities," he is continuing to periodically "here" the threats, and he notes that it seems obvious and logical that self-harm does not accomplish the intended goal. Within this context, he commits to not engaging in further instances of self- harm. -The meeting with his care providers at [facility] is scheduled for later today. 07/13 - continue to monitor pt denies thoughts of self harm today Risk Factors Assessment Male: Yes : Yes Do You Have Access To A Gun?: No Health Problems: No Mental Health Diagnoses: Yes Substance Use Disorders: No Previous Attempt: Yes Previous Attempt; Highly Lethal: Yes Previous Psychiatric Hospitalization: Yes Hopelessness: Yes Smoker: Yes Protective Factors Assessment : No Responsible for Young Children: No Employed: No Stable Relationships: No Supportive Family: No Good Rapport with Provider: Yes Interval History Identifying Information CASEY DAMIAN is a 50-year-old M who currently lives in [facility] housing, has a history of schizophrenia, and was admitted on 07/01/20 15:21 on a 201 voluntary commitment for self injury by cutting. Chief Complaint "I am better than I was". Review of Systems Sleep Information Total Hours of Sleep: 6 Sleep Comments: pt on q-15 minute checks Meal Information Percent Meal Consumed - Breakfast: 100 Percent Meal Consumed - Lunch: 100 Percent Meal Consumed - Dinner: 100 Nutrition Comment: per meal record Subjective Subjective Patient was seen & assessed and interval progress reviewed with nursing and social work. Patient is pleasant on the unit, he remains to himself easily overwhelmed wtih stimuli, tries to attend some groups. He told nursing today that his auditory hallucinations are more intense but that he felt the paliperidone is working. Met with patient in his room and he sits up and is alert to conversation, taps his toenail on the floor (they are long) with some dry skin on feet, o/w hair is groomed but long and he appears clean. He is pleasant and polite, stating "I am better than I was when I came" stating to this provider the voices are "much less intense" that they are still there. He offers no details, when asked if he is concerned about others harming him he states "no, I've been dealing with these voices for 25years" He states he is not presently paranoid, denies IOR, he is not responding to internal stimuli while we are talking. He states he is looking forward to going home, denies EPS, akathisia, or restlessness SE. He is "a little tired" but feels this is "worth it" as he recognizes the medication helps him. He is sleeping well at night, and eating well. Bowels are regular denies constipation, he denies pain, he denies other physical concerns at this time. Mood is "better" "not as overwhelmed." He states he is "hopeful." Briefly discussed the basic yet limited understanding we have of schizophrenia as a mis-pruning of neurons causing individuals to have troubles with their thoughts and then feeling easily overwhelmed, and at times having intrusions of voices that are "mis-signals" that feel real but are from within. Discussed how this is like tinnitus or phantom limb pain that the signals are happening in the brain. Discussed how the brain tries to make sense of these mis-signals and sometimes fears that others are trying to cause them harm. Patient states this makes sense to him and thanks provider for sharing this with him that he feels it helps him understand. Physical Exam Psychiatric Orientation: alert and oriented x 3 dressed in flannel shirt, hospital pants, no socks as he sat up from laying in bed, toe nails are long and skin on feet is dry but otherwise appears clean and well groomed with longer hair that is down but clean Eye Contact: good eye contact Motor Behavior: no abnormal motor movements and + EPS he remained seated so gait and station not appreciated, taps toe on tile but d enies feeling restless Speech: normal rate/rhythm/volume of speech even tone, only speaks in response to questions but in 1-5 word phrases Affect: euthymic affect interestingly is not flat as some individuals with psychotic disorders are, smiles apporpriately mood is "better" "hopeful" Thought Process: goal directed thought process and linear/logical thought process does admit to AH but states he is able to reality test that others are not trying to hurt him Suicidal Thoughts: denies suicidal thoughts Homicidal Thoughts: denies homicidal thoughts Hallucinations: + auditory hallucinations; no visual hallucinations Cognition: recent memory grossly intact Estimated Intelligence: average estimated intelligence Insight: + fair insight Judgement: + fair judgement Vital Signs (Past 24 Hours) Last Vital Signs Temp 36.6 C 07/13/20 06:35 Pulse 85 07/13/20 06:35 Resp 17 07/13/20 06:35 BP 135/82 07/13/20 06:35 Pulse Ox 97 07/01/20 13:15 Results & Data ([facility]) Current Inpatient Medications Current Inpatient Medications: Current Inpatient Medications Acetaminophen (Acetaminophen 325 Mg Tab) 650 mg PO Q4H PRN PRN Reason: Headache or Minor Fever Stop: 07/31/20 15:20 Al Hydrox/Mg Hydrox/Simethicone (Aluminum/Magnesium Susp 30 Ml Udc) 30 ml PO Q4H PRN PRN Reason: GI Upset Stop: 07/31/20 15:20 Benztropine Mesylate (Benztropine Mesylate 0.5 Mg Tab) 0.5 mg PO BID JOSEMANUEL Stop: 07/31/20 20:59 Last Admin: 07/13/20 08:03 Dose: 0.5 mg Documented by: Bismuth Subsalicylate (Bismuth Subsalicylate Liqd 236 Ml) 15 ml PO PRN PRN PRN Reason: Loose Stool Stop: 07/31/20 15:20 Chlorpromazine HCl (Chlorpromazine Hcl 25 Mg Tab) 25 mg PO TID JOSEMANUEL Stop: 08/02/20 13:59 Last Admin: 07/13/20 08:04 Dose: 25 mg Documented by: Hydroxyzine HCl (Hydroxyzine Hcl 25 Mg Tab) 50 mg PO HSZ PRN PRN Reason: Insomnia Stop: 07/31/20 15:20 Last Admin: 07/02/20 00:18 Dose: 50 mg Documented by: Hydroxyzine HCl (Hydroxyzine Hcl 25 Mg Tab) 25 mg PO Q4H PRN PRN Reason: Anxiety Stop: 07/31/20 15:20 Magnesium Hydroxide (Magnesium Hydroxide Susp 30 Ml Udc) 30 ml PO DAILY PRN PRN Reason: Constipation Stop: 07/31/20 15:20 Miscellaneous (Remove Nicoderm Patch) 1 ea N/A DAILY@[id number] [facility] Stop: 08/01/20 08:58 Last Admin: 07/13/20 08:03 Dose: Not Given Documented by: Nicotine (Nicotine 21 Mg/24 Hr Tdsy) 21 mg TD QAM JOSEMANUEL Stop: 08/01/20 08:59 Last Admin: 07/13/20 08:03 Dose: Not Given Documented by: Paliperidone (Paliperidone 3 Mg Tabcr) 12 mg PO DAILY JOSEMANUEL Stop: 08/10/20 08:59 Last Admin: 07/13/20 08:03 Dose: 12 mg Documented by: Sodium Chloride (Sodium Chloride 0.65% Na Soln 45 Ml ([place])) 1 - 2 sprays NA PRN PRN PRN Reason: Nasal Dryness/Congestion Stop: 07/31/20 15:20 Trazodone HCl (Trazodone Hcl 100 Mg Tab) 100 mg PO HS JOSEMANUEL Stop: 07/31/20 20:59 Last Admin: 07/12/20 20:36 Dose: 100 mg Documented by: Mental Health & Subst Abuse Tx Psychiatrist Name of Psychiatrist: Lala Dowell Psychiatrist's Date of Appointment with Psychiatrist: 08/02/20 Time of Appointment with Psychiatrist: 10:00 am Psychiatric Appointment Comment: [address] [facility] [place] Therapist Name of Therapist: Lala Taylor Therapist's Date of Therapist Appointment: 07/12/20 Time of Therapist Appointment: 10:00 am Therapy Appointment Comment: [facility] [place] Board Finisher Name of Board Finisher: GLENU - Denise Phone Number for Board Finisher: [phone] Date of Appointment with Board Finisher: 07/19/20 Time of Appointment with Board Finisher: Will call you to check in Post Discharge Appointments Partial or Psych Rehab Name of Partial or Psych Rehab: [facility] Psych Rehab Phone Number of Partial or Psych Rehab: [phone] Date of Appointment at Partial or Psych Rehab: 07/16/20 Time of Appointment at Partial or Psych Rehab: Continue your schedule Partial or Psych Rehab Appointment Comment: [id number] [place] [address] Contact Information Discharge Discharge Address: [address] [place] [address], [place] [address] Contact Information Comment: Jonnie DAWSON
[2020-07-13] MEDS: traZODone HCL 100 MG TAB PO SCH (20:17)
[2020-07-14] MEDS: NICOTINE 21 MG/24 HR TDSY TD SCH (08:17)
[2020-07-14] MEDS: PALIPERIDONE 3 MG TABCR PO SCH (08:18)
[2020-07-14] MEDS: BENZTROPINE MESYLATE 0.5 MG TAB PO SCH ×2 (08:18→20:38)
[2020-07-14] MEDS: chlorproMAZINE HCL 25 MG TAB PO SCH ×3 (08:18→20:38)
--- NOTE | 2020-07-14 09:21 | Psychiatric Progress Note ---
Date of Service July 14, 2020 Impression / Recommendations Impression 50-year-old single male who lives in a [facility] intermediate, has a history of schizophrenia with a very serious suicide attempt approximately 2 years ago by cutting his neck, who is admitted voluntarily with self injury by cutting/burning in the context of increased auditory, visual hallucinations, and paranoia. We are cross tapering from Haldol and Thorazine to paliperidone to target psychotic symptoms. Inpatient treatment is medically necessary due to need to ensure stability after significant medication adjustments, the severity of symptoms, and the risk for suicide/self-harm if discharged. Given that his symptoms of schizophrenia have been resistant to treatment over the 25-year course of his illness, and given his report that he has never had a trial of clozapine, a trial of this medication, given his known efficacy and treatment resistant forms of schizophrenia, would be indicated. However, the patient says that he believes that the combination of Thorazine and paliperidone is effe ctive, and there is some indication that although his auditory hallucinations persist he is at least returning to baseline. However, his improvement seems to vacillate, and that he may express great fear that he is going to be harmed by the unknown entities that he believes are following and threatening him, and then several hours later he may say that he realizes that these threats are empty threats because they have been present for many years and have not actually resulted in any physical harm. One of the patient's observations is that when he is active he is less likely to experience auditory hallucination is less likely to be frightened. Within this context, concern is that the patient spends a significant amount of time in bed, either sleeping or resting during the day, and then often does not sleep more than 4 to 6 hours at night. A more structured routine may be useful for the patient. He is considering switching from Invega oral 12 mg a day to Invega Sustenna, but expresses ambivalence and we are continuing to talk to him about this as an option. (1) Schizophrenia: 07/02 -Continue voluntary hospitalization, every 15 minute checks for safety. -Encourage group participation, work on healthy coping skills and discharge safety plan. -Coordinate care with NOREEN Smith, at [facility]. Patient currently stating he is not interested in medication changes, but would like to explore options to better control his psychotic symptoms. -Coordinate with his case management director and intermediate staff. 07/03 -spoke with NOREEN Smith, regarding patient's history and medication options. Although his mood has been fairly stable over the past couple of years, he has had mild depressive symptoms and persistent psychosis, which worsened with disruption of his routine due to the pandemic. He has been on high-dose haloperidol, and initially the addition of chlorpromazine appeared beneficial, but recently psychosis has been worsening. Discussed medication options with the patient, including olanzapine and paliperidone. After discussion of risks, benefits, and side effects, he elected for a trial of paliperidone. Will start 3 mg daily, titrate as tolerated, while decreasing haloperidol and chlorpromazine doses. Discussed risk of metabolic syndrome, movement disorders, and the need to monitor fasting labs. Order FLP and FG for tomorrow. 07/04 -continue cross taper; reduce Haldol to 10 mg every morning and 15 mg at bedtime for tomorrow, and increase paliperidone to 6 mg daily for tomorrow. -Reviewed FLP and FG for monitoring on an atypical antipsychotic; all within normal limits. -Continue medically necessary private room for psychosis, and encourage patient to attend and participate in groups as able, although he is easily overstimulated, and may need breaks from the milieu. 07/05 - Continuing cross-taper. Pt does report an episode of emesis this morning, but states it was prior to taking his AM medications. Pt denies persistent nausea or other significant side effects. Will reduce HS dose of Haldol to 10mg tonight, and decrease AM dose to 5mg tomorrow. Invega being titrated to 9mg tomorrow morning. Pt denies symptoms suggestive of EPS. Continue cross-taper as tolerated. - Pt continues to attend only minimal group programming due to difficulty concentrating in the context of continued auditory hallucinations. When he has been out of his room, he has been polite and interactive with peers. - Continue MNPR at this time. 07/06--reviewed above. 1 st day of Haldol decrease, Invega increase. Monitor for ability to taper Haldol further. readdress HAYES. 07/07--improving. Plan: continue current meds and treatment plan. 07/08--remains improved, staff got updates re: baseline from [facility] and they were comfortable with [facility]. Plan: continue current meds and treatment plan. 07/09--Ongoing reported improvement. Pt admits to continued auditory hallucinations and states they are "different", perceiving this change to be positive. Reviewed recommendation that we work toward consolidating his antipsychotic options back to only two choices - this provider recommended discontinuation of chlorpromazine. Pt is declining to discontinue chlorpromazine as he perceives it to be effective, but he is agreeable with reducing the dose of haloperidol. Will reduce haloperidol to 5mg BID - continue chlorpromazine 25mg TID and paliperidone 9mg qAM. - Pt is to meet with [facility] staff today to set up case management services. - Coordinate discharge planning with [facility] staff. 07/10 - Pt continues to report improvement. Admits auditory hallucinations are ongoing, but not distressing (have been long-standing). Pt agrees to continue medication adjustments - will increase paliperidone to 12mg tomorrow, while continuing to taper haloperidol. Adjustments to dosing of chlorpromazine can be considered on an outpatient basis if necessary. - Will coordinate discharge planning with [facility] - encouraging a meeting with patient's goal internal controls manager to discuss safety planning and discharge transition. 07/11 - Ongoing improvement reported - medication adjustments ongoing. Pt titrated to 12mg of paliperidone - will plan for last dose of haloperidol to be given this evening. - Encouraging support meeting with [facility] staff to discuss safety planning and discharge transition, as well as gather thoughts from the staff regarding proximity to baseline and readiness for discharge. 07/12 -Although last evening the patient had an episode during which she told staff he was very fearful that he was about to be harmed because he was hearing a voice telling him that he was in immediate danger, this seems to have resolved fairly quickly and he tells us today that his fear was unfounded because the threats have been present for a long time, yet he has never calmed any physical harm as a result of them. The patient says that he finds that Thorazine helps with his anxiety and his feeling of being "stressed," and paliperidone seems to, in his own words, help him "think better." He also says that the voices may be diminished in terms of volume, frequency and level of intensity -We have been talking the patient about possibly switching to Invega Sustenna for his convenience. The patient says that he is considering it and may be interested because he does feel that Invega is helpful to him. His observation is that Invega and Thorazine together are a helpful combination, and he notes that he feels that Haldol was not particularly helpful and is glad that it has been discontinued. 07/13 and 07/14 - continue medication and plan as above, he seems to be improving a little more each day, 07/14 will explore if Invega Sustenna will be covered, if so could give first injection of 234mg on Saturday 07/15, and second injection Saturday 07/22 of 156mg, then monthly thereafter of 234mg. on 08/19/20. (2) Self-injurious behavior: 07/02 -patient denies pain or discomfort, no signs of infection. May use bacitracin ointment if needed. Patient able to contract for safety in the hospital. Continue to work on healthy coping skills and discharge safety plan. 07/05 - Pt reports thoughts/urges to harm himself using "a cigarette", able to contract for safety here on the unit, but admits he would have difficulty refraining from self-harm if he were discharged 07/06--reviewed. 07/09 - Pt denies active SIB urges or behavior today - states "I'm only thinking about it because you brought it up." 07/10 - 07/11 - Pt continues to deny thoughts of self-harm 07/12 -Today, the patient chuckles when he reflects his observation that cutting and burning himself, while intended to serve as a protection against the threats that are being made against him by the above-referenced "unknown entities," he is continuing to periodically "here" the threats, and he notes that it seems obvious and logical that self-harm does not accomplish the intended goal. Within this context, he commits to not engaging in further instances of self- harm. -[facility] is scheduled for later today. 07/13 and 07/14 - continue to monitor pt denies thoughts of self harm today Risk Factors Assessment Male: Yes : Yes Do You Have Access To A Gun?: No Health Problems: No Mental Health Diagnoses: Yes Substance Use Disorders: No Previous Attempt: Yes Previous Attempt; Highly Lethal: Yes Previous Psychiatric Hospitalization: Yes Hopelessness: Yes Smoker: Yes Protective Factors Assessment : No Responsible for Young Children: No Employed: No Stable Relationships: No Supportive Family: No Good Rapport with Provider: Yes Interval History Identifying Information CASEY DAMIAN is a 50-year-old M who currently lives in [facility] housing, has a history of schizophrenia, and was admitted on 07/01/20 15:21 on a 201 voluntary commitment for self injury by cutting. Chief Complaint "I am okay". Review of Systems Sleep Information Total Hours of Sleep: 6 Sleep Comments: pt on q-15 minute checks Meal Information Percent Meal Consumed - Breakfast: 100 Percent Meal Consumed - Lunch: 90 Percent Meal Consumed - Dinner: 90 Nutrition Comment: per meal record Subjective Subjective Patient was seen & assessed and interval progress reviewed with nursing and social work. Patient slpt 6hours overnight, he did attend community meeting last night and rated mood as 7/10 and mood word was "drowsy." He is selectively isolative eating in common area for meals but minimal interaction on the mileu, he is not showing overt evidence of positive sx of psychosis to staff but does get easily overwhelmed with stimuli. He did reports to staff he was scared to leave noting "maybe discharge Wed or Wednesday." Met with patient today he states "I am better than when I came....voices are less intense" and with discussion less frequent. He denies SIB urges and is able to reality test that harming himself was due to his psychosis, and he no longer has SIB thoughts, SI thoughts, intentions or plans. He denies physical concerns , he notes he does have tiredness on his medications "but it is something I have to get used to." Discussed option of Invega sustenna today and he is open to having the shot. Explained the first shot here, and then one week later 2nd shot then monthly thereafter. He denies questions or concerns about this. Noted we would explore if this is covered with his insurance. Phsycial ROS denies concerns other than feeling tired. NO evidence of akathisia, EPS, dystonia, or TD. Physical Exam Psychiatric Orientation: alert and oriented x 3 Apperance: appropriately dressed (hair is clean, long style disheveled c/w having risen from laying in bed) wrinkled flannel, and black lounge pants, hospital socks that are not pulled on fully and ill fitted Eye Contact: good eye contact Motor Behavior: no abnormal motor movements Speech: normal rate/rhythm/volume of speech mild socially tentative tone as is mildly anxious but not distressed non-labile, pleasant with evidence of modest anxiety "better" Thought Process: goal directed thought process and linear/logical thought process ongoing AH of persecution but feels able to manage and reality test, reports this is how it has been for 25years, indicating this is his baseline Suicidal Thoughts: denies suicidal thoughts Homicidal Thoughts: denies homicidal thoughts Hallucinations: + auditory hallucinations; no visual hallucinations Cognition: recent memory grossly intact Estimated Intelligence: average estimated intelligence Insight: + fair insight Judgement: + fair judgement Vital Signs (Past 24 Hours) Last Vital Signs Temp 36.9 C 07/13/20 20:36 Pulse 100 H 07/14/20 06:25 Resp 16 07/14/20 06:24 BP 103/63 07/14/20 06:25 Pulse Ox 97 07/01/20 13:15 Results & Data ([facility]) Current Inpatient Medications Current Inpatient Medications: Current Inpatient Medications Acetaminophen (Acetaminophen 325 Mg Tab) 650 mg PO Q4H PRN PRN Reason: Headache or Minor Fever Stop: 07/31/20 15:20 Al Hydrox/Mg Hydrox/Simethicone (Aluminum/Magnesium Susp 30 Ml Udc) 30 ml PO Q4H PRN PRN Reason: GI Upset Stop: 07/31/20 15:20 Benztropine Mesylate (Benztropine Mesylate 0.5 Mg Tab) 0.5 mg PO BID [facility] Stop: 07/31/20 20:59 Last Admin: 07/14/20 08:18 Dose: 0.5 mg Documented by: Bismuth Subsalicylate (Bismuth Subsalicylate Liqd 236 Ml) 15 ml PO PRN PRN PRN Reason: Loose Stool Stop: 07/31/20 15:20 Chlorpromazine HCl (Chlorpromazine Hcl 25 Mg Tab) 25 mg PO TID JOSEMANUEL Stop: 08/02/20 13:59 Last Admin: 07/14/20 08:18 Dose: 25 mg Documented by: Hydroxyzine HCl (Hydroxyzine Hcl 25 Mg Tab) 50 mg PO HSZ PRN PRN Reason: Insomnia Stop: 07/31/20 15:20 Last Admin: 07/02/20 00:18 Dose: 50 mg Documented by: Hydroxyzine HCl (Hydroxyzine Hcl 25 Mg Tab) 25 mg PO Q4H PRN PRN Reason: Anxiety Stop: 07/31/20 15:20 Magnesium Hydroxide (Magnesium Hydroxide Susp 30 Ml Udc) 30 ml PO DAILY PRN PRN Reason: Constipation Stop: 07/31/20 15:20 Miscellaneous (Remove Nicoderm Patch) 1 ea N/A DAILY@[id number] JOSEMANUEL Stop: 08/01/20 08:58 Last Admin: 07/14/20 08:17 Dose: Not Given Documented by: Nicotine (Nicotine 21 Mg/24 Hr Tdsy) 21 mg TD QAM JOSEMANUEL Stop: 08/01/20 08:59 Last Admin: 07/14/20 08:17 Dose: Not Given Documented by: Paliperidone (Paliperidone 3 Mg Tabcr) 12 mg PO DAILY JOSEMANUEL Stop: 08/10/20 08:59 Last Admin: 07/14/20 08:18 Dose: 12 mg Documented by: Sodium Chloride (Sodium Chloride 0.65% Na Soln 45 Ml (Fannin)) 1 - 2 sprays NA PRN PRN PRN Reason: Nasal Dryness/Congestion Stop: 07/31/20 15:20 Trazodone HCl (Trazodone Hcl 100 Mg Tab) 100 mg PO HS JOSEMANUEL Stop: 07/31/20 20:59 Last Admin: 07/13/20 20:17 Dose: 100 mg Documented by: Mental Health & Subst Abuse Tx Psychiatrist Name of Psychiatrist: Lala Dowell Psychiatrist's Date of Appointment with Psychiatrist: 08/02/20 Time of Appointment with Psychiatrist: 10:00 am Psychiatric Appointment Comment: Bernabe Wilson [place], [place] Therapist Name of Therapist: Lala Taylor Therapist's Date of Therapist Appointment: 07/12/20 Time of Therapist Appointment: 10:00 am Therapy Appointment Comment: Bernabe Trinidad [place], [place] Md Senior Research Scientist Name of Md Senior Research Scientist: KATHIA Walker Phone Number for Md Senior Research Scientist: [phone] Date of Appointment with Md Senior Research Scientist: 07/19/20 Time of Appointment with Md Senior Research Scientist: Will call you to check in Post Discharge Appointments Partial or Psych Rehab Name of Partial or Psych Rehab: [facility] Phone Number of Partial or Psych Rehab: [phone] Date of Appointment at Partial or Psych Rehab: 07/16/20 Time of Appointment at Partial or Psych Rehab: Continue your schedule Partial or Psych Rehab Appointment Comment: [id number] [place] [address] Contact Information Discharge Discharge Address: [address] [place] [address], [place] [address] Contact Information Comment: Jonnie DAWSON
[2020-07-14] MEDS: traZODone HCL 100 MG TAB PO SCH (20:38)
[2020-07-15] MEDS: BENZTROPINE MESYLATE 0.5 MG TAB PO SCH (08:48)
[2020-07-15] MEDS: chlorproMAZINE HCL 25 MG TAB PO SCH (08:48)
[2020-07-15] MEDS: NICOTINE 21 MG/24 HR TDSY TD SCH (08:51)
[2020-07-15] MEDS ORDERED: PALIPERIDONE PALMITATE 234 MG/1.5 ML SYR IM ONE (09:00)
--- NOTE | 2020-07-15 09:56 | Discharge Summary ---
Date of Service July 15, 2020 History of Present Illness Patient was sent in by NOREEN Smith, at [place] after an appointment yesterday during which she disclosed self injury. He reported feeling overwhelmed over the weekend, stating he did not "want a lifetime of pills," wanted to be able to come off medication at some point, had been isolating more, and was still hearing voices daily. He showed her fresh cuts on his arm and said he had burned himself, which he did to protect himself. He said he used a clinical lab clerk knife from the kitchen, he did it up, and used it to make longer nugent in his skin. He reported having a night terror where he was paralyzed and could not form words. He was disorganized, talking about "trench coats" that he need to protect himself from. He said he was not sure he could keep himself safe, and agreed to come to the hospital for admission. In the ER, he said he had c aught/burned himself by heating a knife on the stove and then cutting his forearm with it, and that he did this to protect himself from "the evils of the world." His lacerations were superficial and did not require medical intervention. He said that he still believes he needs to cut or burn himself "for protection," relating this to hearing voices and seeing people daily. Admission labs notable for UDS + MDMA. He is admitted voluntarily. On my assessment, he states that he is "getting settled in." He struggles to answer questions directly, for example when asked about his mood says "that's a tricky question." He said he used a hot knife to make alfred on his forearm, which are "meant to protect me." When asked what he needs protection from, he says "I see things, people, the worst ones wear a white shirt, black jacket and black pants, I've been seeing those for a while, authority figures. The others ones are olive green, ..." He says that these people "talk all day long," and tell him that he needs to "leave [place], move elsewhere." He tries to ignore them, but feels threatened by them. He often sleeps excessively to try to deal with them. AVH occur daily, and have been more intense recently. He thinks that if he were not here in the hospital, he would continue to hurt himself for "protection." He denies that he wants to , but does not think that he could refrain from hurting himself if not in the hospital. He states that he has been on haloperidol and chlorpromazine for years, and that they are helpful, although they do cause some sedation. He says he was on risperidone, but it was stopped over the summer. He denies ever missing doses, and does not want to change his medications. He says that he has no family involvement, but has 2 friends who are supportive, although both are moving out of the area. Physical Exam Psychiatric Orientation: alert and cooperative Apperance: appropriately dressed, appropriately groomed and appeared stated age Good hygiene, casually dressed. Seated in no acute distress. Calm, cooperative, and pleasant. Eye Contact: good eye contact Motor Behavior: steady gait and station and no abnormal motor movements Speech: normal rate/rhythm/volume of speech Affect: euthymic affect (Mildly anxious, mood congruent and appropriate.) "A little nervous, but I feel good." Thought Process: goal directed thought process and linear/logical thought process Thought Content: reality based without delusions Suicidal Thoughts: denies suicidal thoughts Homicidal Thoughts: denies homicidal thoughts Hallucinations: + auditory hallucinations AH are reduced from admission, patient describes them as "much better," is less frequent and intense. Denies command hallucinations, states he is sometimes able to make out what they are saying, but typically ignores/distracts. Cognition: recent memory grossly intact, attention grossly intact and language grossly intact Estimated Intelligence: consistent with education level Insight: good insight Judgement: good judgement Vital Signs (Past 24 Hours) Last Vital Signs Temp 36.6 C 07/15/20 06:31 Pulse 106 H 07/15/20 06:32 Resp 16 07/15/20 06:31 BP 121/86 07/15/20 06:32 Pulse Ox 97 07/01/20 13:15 Principal Diagnosis Schizophrenia Psychiatric Data The patient was hospitalized for 14 days. On admission he was continued on his home medications as he did not want to make changes, but the following day, after discussion with his outpatient PA at [place], he agreed to a trial of paliperidone. He was cross tapered from haloperidol to paliperidone, with a maximum dose of 12 mg daily, which he tolerated well. His chlorpromazine dose was decreased from 50 mg 3 times daily to 25 mg 3 times daily, and tapering off of it was discussed, but he preferred to maintain it as he found it beneficial. Transition to [facility] was recommended, which he initially declined, and ultimately agreed to the day prior to discharge. He received the first loading injection of 234 mg IM on 07/15/2020 prior to discharge. The intensity and frequency of auditory hallucinations decreased throughout his hospitalization, and he felt that they were manageable and at baseline. Urges to self-harm resolved, and he did not engage in self injury in the hospital. Although he initially isolated in his room and was preoccupied with the auditory hallucinations, as symptoms lessened, he was able to attend and participate in groups, perform ADLs, and engage with others. His outpatient clinicians were contacted and referrals made to increase his level of care, including a blended case management manager and increasing therapy to weekly sessions. He had a discharge planning meeting with his care providers at [facility] on 07/12/2020. Day of Discharge Assessment Patient states he is looking forward to discharge, "a little nervous, but I feel good." He states he is primarily anxious about having to go to the grocery store later today to buy food, noting he always gets anxious when he has to go food shopping. He feels his anxiety is manageable, and says he is looking forward to going home, going through his books, and choosing something to read. He states auditory hallucinations are "much better," as they are less intense and frequent, and he feels able to manage them with his coping skills. He is tolerating medications well and denies any side effects. He reports good sleep and appetite, and denies suicidal thoughts, thoughts of self injury, and any safety concerns. Transition of Care Transition Of Care Record: was reviewed with the patient Advance Directives Advance Directives Information Provided: Yes Advance Directives: No Mental Health Advance Directive: No Advance Directives on File: No Living Will: No Power of O And M Supervisor: No Advance Directives Reason:: Declines as Mental Health Visit. Risk Factors Assessment Risk factors were mitigated by admission to the inpatient unit, use of medications to target mood and psychotic symptoms, involving him in groups and therapy, working on healthy coping skills and a discharge safety plan, referring him for higher level of outpatient services, and [facility]. Auditory hallucinations and mood improved, thoughts of self-harm resolved, self-care improved, and patient was taking medications and performing ADLs independently. He is requesting discharge, and as he is no longer at acute risk of harm to himself, he can be managed as an outpatient at this time. Male: Yes : Yes Do You Have Access To A Gun?: No Health Problems: No Mental Health Diagnoses: Yes Substance Use Disorders: No Previous Attempt: Yes Previous Attempt; Highly Lethal: Yes Previous Psychiatric Hospitalization: Yes Hopelessness: Yes Smoker: Yes Protective Factors Assessment : No Responsible for Young Children: No Employed: No Stable Relationships: No Supportive Family: No Good Rapport with Provider: Yes Tobacco Cessation at Discharge Tobacco Cessation Medication Prescribed at Discharge: Offered & Pt Refused Practical counseling provided including: recognizing danger situations, developing coping skills and providing basic information about quitting Tobacco Cessation Outpatient Followup: Outpatient referral made to ([facility]) Total Time Total Time Spent: Greater Than 30 Minutes Total Time Includes: Examination of the patient, Discharge Planning and Medication Reconciliation Discharge Data Lab Results 07/01/20 07/01/20 07/01/20 12:26 12:26 12:26 WBC RBC Hgb Hct MCV MCH MCHC RDW Std Deviation RDW Coeff of Mars Plt Count MPV Immature Gran % (Auto) Neut % (Auto) Lymph % (Auto) Fayette % (Auto) Eos % (Auto) Baso % (Auto) Neut # (Auto) Lymph # (Auto) F[place] # (Auto) Eos # (Auto) Baso # (Auto) Immature Gran # (Auto) Sodium Potassium Chloride Carbon Dioxide Anion Gap BUN Creatinine Est Cr Clr Drug Dosing Est GFR ( Amer) Est GFR (Non-Af Amer) BUN/Creatinine Ratio Glucose Fasting Glucose Calcium Total Bilirubin AST ALT Alkaline Phosphatase Total Protein Albumin Globulin Albumin/Globulin Ratio Triglycerides Cholesterol LDL Cholesterol, Calc VLDL Cholesterol, Calc HDL Cholesterol Cholesterol/HDL Ratio TSH Urine Color Yellow Urine Appearance Clear Urine pH 6.5 Ur Specific Wagner 1.010 Urine Protein Negative Urine Glucose (UA) Negative Urine Ketones Negative Urine Blood Negative Urine Nitrite Negative Urine Bilirubin Negative Urine Urobilinogen Negative Ur Leukocyte Esterase Negative Salicylates Urine Opiates Screen Neg Ur Methadone, Qual Neg Acetaminophen Urine Barbiturates Neg Ur Phencyclidine (PCP) Neg U Amphetamin/Meth Scrn Neg Urine MDEA negative MDMA (Ecstasy) Screen Pos H MDMA negative Urine MDMA negative U Benzodiazepines Scrn Neg Ur Cocaine Metabolite Neg U Marijuana (THC) Screen Neg Ethyl Alcohol mg/dL SARS-CoV-2 Ag (Rapid) 07/01/20 07/01/20 07/01/20 12:47 12:47 12:47 WBC 7.85 RBC 4.94 Hgb 15.5 Hct 44.9 MCV 90.9 MCH 31.4 MCHC 34.5 RDW Std Deviation 43.2 RDW Coeff of Mars 13.1 Plt Count 261 MPV 9.8 Immature Gran % (Auto) 0.3 Neut % (Auto) 62.8 Lymph % (Auto) 30.7 Fayette % (Auto) 4.3 Eos % (Auto) 1.5 Baso % (Auto) 0.4 Neut # (Auto) 4.93 Lymph # (Auto) 2.41 Fayette # (Auto) 0.34 Eos # (Auto) 0.12 Baso # (Auto) 0.03 Immature Gran # (Auto) 0.02 Sodium 138 Potassium 3.9 Chloride 104 Carbon Dioxide 28 Anion Gap 7.0 BUN 8 Creatinine 0.90 Est Cr Clr Drug Dosing 107.8 Est GFR ( Amer) 115.0 Est GFR (Non-Af Amer) 99.2 BUN/Creatinine Ratio 8.7 L Glucose 114 H Fasting Glucose Calcium 9.8 Total Bilirubin 0.5 AST 7 L ALT 15 Alkaline Phosphatase 88 Total Protein 7.9 Albumin 4.1 Globulin 3.8 Albumin/Globulin Ratio 1.1 Triglycerides Cholesterol LDL Cholesterol, Calc VLDL Cholesterol, Calc HDL Cholesterol Cholesterol/HDL Ratio TSH 1.050 Urine Color Urine Appearance Urine pH Ur Specific Wagner Urine Protein Urine Glucose (UA) Urine Ketones Urine Blood Urine Nitrite Urine Bilirubin Urine Urobilinogen Ur Leukocyte Esterase Salicylates 3.7 Urine Opiates Screen Ur Methadone, Qual Acetaminophen < 2 L Urine Barbiturates Ur Phencyclidine (PCP) U Amphetamin/Meth Scrn Urine MDEA MDMA (Ecstasy) Screen MDMA Urine MDMA U Benzodiazepines Scrn Ur Cocaine Metabolite U Marijuana (THC) Screen Ethyl Alcohol mg/dL SARS-CoV-2 Ag (Rapid) 07/01/20 07/01/20 07/04/20 12:47 13:05 07:54 WBC RBC Hgb Hct MCV MCH MCHC RDW Std Deviation RDW Coeff of Mars Plt Count MPV Immature Gran % (Auto) Neut % (Auto) Lymph % (Auto) Fayette % (Auto) Eos % (Auto) Baso % (Auto) Neut # (Auto) Lymph # (Auto) Fayette # (Auto) Eos # (Auto) Baso # (Auto) Immature Gran # (Auto) Sodium Potassium Chloride Carbon Dioxide Anion Gap BUN Creatinine Est Cr Clr Drug Dosing Est GFR ( Amer) Est GFR (Non-Af Amer) BUN/Creatinine Ratio Glucose Fasting Glucose 95 Calcium Total Bilirubin AST ALT Alkaline Phosphatase Total Protein Albumin Globulin Albumin/Globulin Ratio Triglycerides 90 Cholesterol 123 LDL Cholesterol, Calc 68 VLDL Cholesterol, Calc 18 HDL Cholesterol 37 Cholesterol/HDL Ratio 3 TSH Urine Color Urine Appearance Urine pH Ur Specific Wagner Urine Protein Urine Glucose (UA) Urine Ketones Urine Blood Urine Nitrite Urine Bilirubin Urine Urobilinogen Ur Leukocyte Esterase Salicylates Urine Opiates Screen Ur Methadone, Qual Acetaminophen Urine Barbiturates Ur Phencyclidine (PCP) U Amphetamin/Meth Scrn Urine MDEA MDMA (Ecstasy) Screen MDMA Urine MDMA U Benzodiazepines Scrn Ur Cocaine Metabolite U Marijuana (THC) Screen Ethyl Alcohol mg/dL < 3.0 SARS-CoV-2 Ag (Rapid) Negative Hospital Course (1) Schizophrenia: 07/02 -Continue voluntary hospitalization, every 15 minute checks for safety. -Encourage group participation, work on healthy coping skills and discharge safety plan. -Coordinate care with NOREEN Smith, at [place]. Patient currently stating he is not interested in medication changes, but would like to explore options to better control his psychotic symptoms. -Coordinate with his case management manager and halfway staff. 07/03 -spoke with NOREEN Smith, regarding patient's history and medication options. Although his mood has been fairly stable over the past couple of years, he has had mild depressive symptoms and persistent psychosis, which worsened with disruption of his routine due to the pandemic. He has been on high-dose haloperidol, and initially the addition of chlorpromazine appeared beneficial, but recently psychosis has been worsening. Discussed medication options with the patient, including olanzapine and paliperidone. After discussion of risks, benefits, and side effects, he elected for a trial of paliperidone. Will start 3 mg daily, titrate as tolerated, while decreasing haloperidol and chlorpromazine doses. Discussed risk of metabolic syndrome, movement disorders, and the need to monitor fasting labs. Order FLP and FG for tomorrow. 07/04 -continue cross taper; reduce Haldol to 10 mg every morning and 15 mg at bedtime for tomorrow, and increase paliperidone to 6 mg daily for tomorrow. -Reviewed FLP and FG for monitoring on an atypical antipsychotic; all within normal limits. -Continue medically necessary private room for psychosis, and encourage patient to attend and participate in groups as able, although he is easily overstimulated, and may need breaks from the milieu. 07/05 - Continuing cross-taper. Pt does report an episode of emesis this morning, but states it was prior to taking his AM medications. Pt denies persistent nausea or other significant side effects. Will reduce HS dose of Haldol to 10mg tonight, and decrease AM dose to 5mg tomorrow. Invega being titrated to 9mg tomorrow morning. Pt denies symptoms suggestive of EPS. Continue cross-taper as tolerated. - Pt continues to attend only minimal group programming due to difficulty concentrating in the context of continued auditory hallucinations. When he has been out of his room, he has been polite and interactive with peers. - Continue MNPR at this time. 07/06--reviewed above. 1 st day of Haldol decrease, Invega increase. Monitor for ability to taper Haldol further. readdress HAYES. 07/07--improving. Plan: continue current meds and treatment plan. 07/08--remains improved, staff got updates re: baseline from [facility] and they were comfortable with [facility]. Plan: continue current meds and treatment plan. 07/09--Ongoing reported improvement. Pt admits to continued auditory hallucinations and states they are "different", perceiving this change to be positive. Reviewed recommendation that we work toward consolidating his antipsychotic options back to only two choices - this provider recommended discontinuation of chlorpromazine. Pt is declining to discontinue chlorpromazine as he perceives it to be effective, but he is agreeable with reducing the dose of haloperidol. Will reduce haloperidol to 5mg BID - continue chlorpromazine 25mg TID and paliperidone 9mg qAM. - Pt is to meet with [facility] staff today to set up case management services. - Coordinate discharge planning with [facility] staff. 07/10 - Pt continues to report improvement. Admits auditory hallucinations are ongoing, but not distressing (have been long-standing). Pt agrees to continue medication adjustments - will increase paliperidone to 12mg tomorrow, while continuing to taper haloperidol. Adjustments to dosing of chlorpromazine can be considered on an outpatient basis if necessary. - Will coordinate discharge planning with [facility] - encouraging a meeting with patient's goal loan operations manager to discuss safety planning and discharge transition. 07/11 - Ongoing improvement reported - medication adjustments ongoing. Pt titrated to 12mg of paliperidone - will plan for last dose of haloperidol to be given this evening. - Encouraging support meeting with [facility] staff to discuss safety planning and discharge transition, as well as gather thoughts from the staff regarding proximity to baseline and readiness for discharge. 07/12 -Although last evening the patient had an episode during which she told staff he was very fearful that he was about to be harmed because he was hearing a voice telling him that he was in immediate danger, this seems to have resolved fairly quickly and he tells us today that his fear was unfounded because the threats have been present for a long time, yet he has never calmed any physical harm as a result of them. The patient says that he finds that Thorazine helps with his anxiety and his feeling of being "stressed," and paliperidone seems to, in his own words, help him "think better." He also says that the voices may be diminished in terms of volume, frequency and level of intensity -We have been talking the patient about possibly switching to Invega Sustenna for his convenience. The patient says that he is considering it and may be interested because he does feel that Invega is helpful to him. His observation is that Invega and Thorazine together are a helpful combination, and he notes that he feels that Haldol was not particularly helpful and is glad that it has been discontinued. 07/13 and 07/14 - continue medication and plan as above, he seems to be improving a little more each day, 07/14 will explore if Invega Sustenna will be covered, if so could give first injection of 234mg on 07/15 -patient received first Invega Sustenna loading injection of 234 mg IM today. His second loading injection of 156 mg IM is scheduled for 07/19/2020 at [place], and the prescription has been sent to [facility]. -Discharged to return to [facility] therapist, and PA at [place]. (2) Self-injurious behavior: 07/02 -patient denies pain or discomfort, no signs of infection. May use bacitracin ointment if needed. Patient able to contract for safety in the hospital. Continue to work on healthy coping skills and discharge safety plan. 07/05 - Pt reports thoughts/urges to harm himself using "a cigarette", able to contract for safety here on the unit, but admits he would have difficulty refraining from self-harm if he were discharged 07/06--reviewed. 07/09 - Pt denies active SIB urges or behavior today - states "I'm only thinking about it because you brought it up." 07/10 - 07/11 - Pt continues to deny thoughts of self-harm 07/12 -Today, the patient chuckles when he reflects his observation that cutting and burning himself, while intended to serve as a protection against the threats that are being made against him by the above-referenced "unknown entities," he is continuing to periodically "here" the threats, and he notes that it seems obvious and logical that self-harm does not accomplish the intended goal. Within this context, he commits to not engaging in further instances of self- harm. -The meeting with his care providers at [facility] is scheduled for later today. 07/13 and 07/14 - continue to monitor pt denies thoughts of self harm today 07/15 -patient has consistently denied thoughts of self-harm, and is able to review healthy coping skills for managing auditory hallucinations and paranoia. Mental Health & Subst Abuse Tx Psychiatrist Name of Psychiatrist: Lala Dowell Psychiatrist's Date of Appointment with Psychiatrist: 08/02/20 Time of Appointment with Psychiatrist: 10:00 am Psychiatric Appointment Comment: [address] [facility], [place], [place] Therapist Name of Therapist: Lala Taylor Therapist's Date of Therapist Appointment: 07/16/20 Time of Therapist Appointment: 9:00 a.m. Therapy Appointment Comment: [id number] [facility] [facility], [place], [place] Heel Packer Name of Heel Packer: [facility] - Denise Phone Number for Heel Packer: [phone] Date of Appointment with Heel Packer: 07/19/20 Time of Appointment with Heel Packer: Will call you to check in Post Discharge Appointments Partial or Psych Rehab Name of Partial or Psych Rehab: [facility] Phone Number of Partial or Psych Rehab: [phone] Date of Appointment at Partial or Psych Rehab: 07/16/20 Time of Appointment at Partial or Psych Rehab: Continue your schedule Partial or Psych Rehab Appointment Comment[facility] [id number] [place] [address] Smoking Cessation Counseling Tobacco Cessation Medication Prescribed at Discharge: Offered & Pt Refused Contact Information Discharge Discharge Address: [address] [place] [id number] Contact Information Comment: Jonnie Benjamin CRYue Discharge Plan Discharge Items Patient Disposition: Personal Skilled Nursing Reason For Visit: SCHIZOPHRENIA Discharge Diagnosis: Schizophrenia Activity: Per Instructions section Non-emergency contact: Psychiatrist, Therapist and Branch Service Representative Call non-emergency contact if: you have any medication questions and your symptoms worsen Follow-up/Referrals: Liya Dowell PA-C [Primary Care Provider] - Diet: Regular Addtl Attending Provider Instructions: SPECIAL CARE INSTRUCTIONS: 1. Follow through with your scheduled aftercare appointments. If unable to keep an appointment, please call to reschedule. 2. Take your medication only as prescribed. Medication should not be changed or stopped without the approval of your doctor. In the event of worsening symptoms or concerns about side effects, contact your doctor immediately. 3. Utilize new healthy coping skills, anger management skills, and stress management skills learned during your hospitalization. Journal feelings and process them with a support person. Identify stressors or situations that may result in relapse, deterioration or inappropriate behaviors and develop a plan to deal with those issues. 4. If your coping skills are ineffective and you are in crisis, contact your outpatient providers for direction. If unable to reach your providers, please call the [facility] CRISIS LINE AT , go to the [facility] walk-in center at [address], [address], [place], or go to the closest Emergency Room. 5. Avoid alcohol and un-prescribed drugs. 6. You have been provided with the Mental Health Advance Directives Pamphlet for your review. AFTERCARE APPOINTMENTS: * Please call your insurance company prior to your scheduled appointment to confirm your aftercare providers are covered. Take your insurance information to your appointments. WHO TO CALL AND WHEN: Medical Emergencies: For questions or emergencies related to your hospital stay, please contact the Inpatient Behavioral Health Unit at [phone]. A psychiatric technician assistant is on-call 11/01 for the Behavioral Health Unit for emergencies At any time you feel your situation is an emergency, you may also call 911 immediately. Pending Studies at Discharge: No Stand-Alone Forms: My Vapotherm, Smoking Cessation Skilled Items Patient informed of condition?: Yes DNR: No Discharge Level of Care: Other Communicable Disease: No Discharge Prognosis: Improving Lines: None Urinary Catheter: No Medications and DC Order Prescriptions: New Invega Sustenna 156 mg/mL syringe 156 mg IM ONCE Qty: 1 RF: 0 Continued benztropine 0.5 mg Tablet 0.5 mg PO BID RF: 0 trazodone 100 mg Tablet 100 mg PO HS RF: 0 Changed chlorpromazine 50 mg Tablet 25 mg PO TID Qty: 0 RF: 0 Discontinued haloperidol [Haldol] 10 mg Tablet 20 mg PO BID RF: 0 Discharge Orders: Discharge Order (Routine); Ordered 07/15/20 Ordered By: Bibi Isabel Admission Data Admit Date/Time: 07/01/20 15:21 Attending Provider: Bibi Isabel Admit Provider: Bibi Isabel Primary Care Provider: Liya Dowell Other Interventions: Discharge Summary Assessment (RN) Last Done: 07/15/20 09:57 PSY Interdisciplinary Discharge Planning Last Done: 07/15/20 09:55 Coding Level of Care Code 24244 D/C day mgmt > 30 min Diagnoses Schizophrenia F20.9 Self-injurious behavior Z72.89
== END 2020-07-15 11:25 | disposition home or self-care (01) | DRG 885 ==
LOC: ED 11:07 → 3S 15:21

== ENCOUNTER 2022-11-05 22:37 | Observation (INO) ==
[2022-11-05 23:42] LABS: Basophils # (auto) 0.02 K/uL (0-0.2); Basophils % (auto) 0.2 %; Eosinophils # (auto) 0.04 K/uL (0-0.50); Eosinophils % (auto) 0.4 %; Hematocrit (blood only) 39.9 % (42.0-52.0); Hemoglobin 14.4 g/dl (14.0-18.0); Immature Granulocytes # (auto) 0.04 K/uL (0.01-0.20); Immature Granulocytes % (auto) 0.4 %; Lymphocytes # (auto) 1.17 K/uL (1.2-3.4); Lymphocytes % (auto) 11.2 %; Mean Corpuscular Hemoglobin 31.2 pg (25.0-34.0); Mean Corpuscular Hgb Conc 36.1 g/dL (32.0-36.0); Mean Corpuscular Volume 86.6 fL (80.0-100.0); Mean Platelet Volume 9.1 fL (9.4-12.4); Monocytes # (auto) 0.63 K/uL (0.11-0.59); Neutrophils # (auto) 8.57 K/uL (1.40-6.50); Neutrophils % (auto) 81.8 %; Platelet Count 302 K/uL (130-400); RDW Coefficient of Variation 12.7 % (11.5-14.5); RDW Standard Deviation 39.8 fL (36.4-46.3); Red Blood Count 4.61 M/uL (4.70-6.10); White Blood Count 10.47 K/ul (4.8-10.8)
[2022-11-05 23:45] LABS: Albumin Globulin Ratio 1.5 (0.9-2); Albumin Level 4.5 gm/dl (3.4-5.0); BUN Creatinine Ratio 4.6 (10-20); Bilirubin,Total 0.5 mg/dl (0.2-1.0); Calcium 9.7 mg/dl (8.6-10.3); Creatinine Clr Calc Pharmacy 150.4 ml/min; Est GFR (African American) 129.6 ml/min; Est GFR (Non-African American) 111.9 ml/min; Potassium 3.5 mmol/L (3.5-5.1); Total Protein 7.5 gm/dl (6.0-8.3)
[2022-11-05 23:46] LABS: Appearance Urine Clear (Clear); Bacteria Urine Automated Negative (Negative); Bilirubin Urine Negative (Negative); Blood Urine 1+ (Negative); Color Urine Yellow; Epithelial Cell Urine Auto 0-5 /lpf (0-5); Glucose Urine UA Negative (Negative); Ketones Urine Negative (Negative); Leukocyte Esterase Urine Negative (Negative); Nitrite Urine Negative (Negative); Protein Urine Negative (Negative); Specific Gravity Urine 1.006 (1.000-1.030); Urobilinogen Urine Negative (Negative); WBC Urine Automated 0 /hpf (0-5)
[2022-11-05 23:52] LABS: Acetaminophen < 3 ug/ml (10-30); Salicylate < 3.0 mg/dl (3.0-30)
[2022-11-06 00:01] LABS: Amphetamines+Metham, Urine Neg (Neg); Barbiturates, Urine Neg (Neg); Benzodiazepine, Urine Neg (Neg); Cocaine, Urine Neg (Neg); MDMA (Ecstacy), Urine Neg (Neg); Methadone, Urine Neg (Neg); Opiate, Urine Neg (Neg); Phencyclidine, Urine Neg (Neg)
[2022-11-06] MEDS ORDERED: SODIUM CHLORIDE 0.9% 1000ML 1,000 ML IV ONE (00:15)
--- NOTE | 2022-11-06 01:11 | Emergency Department Note ---
Impression & Plan Acute hyponatremia, Suicidal ideation Admit to the [facility] ED Provider Note NAME: CASEY DAMIAN AGE: 52 SEX: M ARRIVES VIA: Ambulance INFORMANT: Patient ED PROVIDER(S): Marlyn Rangel DO CHIEF COMPLAINT: Suicidal ideation PLAN: Disposition: Admit to the [facility] Condition: Fair MEDICAL DECISION MAKING: This is a 52-year-old male patient who presents to the emergency department from [facility] home complaining of suicidal ideation and hearing voices. Patient has a longstanding history of schizophrenia with multiple previous inpatient psychiatric stays. Patient has thoughts of wanting to slice his forearm with an X-Acto blade. Other complaints the patient has of constipation so he has been taking decreased oral intake appears somewhat dehydrated on physical exam because of this. Laboratory evaluation here in the ER revealed a glucose of 117. Normal white blood cell count. Stable H&H. However, the patient's sodium was 128 and chloride was 96. An IV lock was initiated and the patient was bolused with IV normal saline solution. [facility] for further inpatient medical care. The patient will be admitted from there to the inpatient psychiatric unit on a voluntary admission. Triage Nursing notes reviewed and agree with them. Prior medical records reviewed Vital Signs: reviewed and unremarkable Differential diagnosis: Mood disorder, thought disorder, suicidal ideation, homicidal ideation, constipation, dehydration ER treatment provided: IV normal saline bolus Diagnostics interpreted by me: Laboratory studies: See below HPI: 52/M arrives for evaluation of suicidal ideation. 52-year-old male patient has a history of schizophrenia and presents to the emergency department because of hearing voices and having thoughts of suicide. He is having thoughts of slicing his forearms with an X-Acto blade. He has had multiple previous inpatient psychiatric stays over the past 20+ years. PAST MEDICAL HISTORY:Schizophrenia with multiple previous inpatient psychiatric stays PAST SURGICAL HISTORY:See Below FAMILY HISTORY:See Below SOCIAL HISTORY:See Below HOME MEDICATIONS:See list ALLERGIES:None VITALS:See Below PHYSICAL EXAMINATION: HEENT: Head - normocephalic and atraumatic. Pupils are equal, round, and reactive to light. Extraocular eye muscles are intact, and sclera are anicteric. Nose - moist nasal mucosa without discharge. Mouth - moist buccal mucosa. Oropharynx is nonerythematous and there is no tonsillar exudate or edema noted. Neck: Supple; no cervical lymphadenopathy Heart: Regular rate and rhythm. There is a normal S1 and S2 with no murmurs, clicks, or gallops appreciated. Lungs: Clear to auscultation bilaterally with no wheezes, rales, or rhonchi. Abdomen: Soft, completely nontender, nondistended, with good bowel sounds. There are no palpable pulsatile masses or hepatosplenomegaly. There is no guarding, rigidity, or rebound noted. Extremities: No evidence of cyanosis, clubbing, or edema. There are easily palpable peripheral pulses. Skin: warm and dry with good turgor and no rashes. Psych: Patient is having thoughts of wanting to kill himself and describes significant auditory hallucinations. He is hearing voices. ED COURSE: Times/Reassessments: 231: Patient was evaluated in room A-6. A complete history and physical was performed. Laboratory studies were drawn as above. Patient was noted to be significantly hyponatremic and was given an IV lock and a bolus of 1 L of normal saline solution. I discussed the case with the [facility] Hospitalist and they will evaluate for further management Marlyn Rangel, DO Past Med/Surg History Medical History Schizophrenia Self-injurious behavior Social History Smoking Status: Current every day smoker Tobacco Type: Cigarettes Preferred Language: Portuguese Communication Ability: Effective Line Construction Supervisor Required: No Beliefs That Will Affect Care: None Feels Safe at Home: No Assistive Devices: Glasses Allergies Allergies Allergy/AdvReac Type Severity Reaction Status Date / Time No Known Allergies Allergy Verified 11/06/22 00:56 Home Meds Home Medications Medication Instructions Recorded Confirmed benztropine 0.5 mg tablet 0.5 mg PO BID 07/01/20 11/06/22 trazodone 100 mg tablet 100 mg PO HS 07/01/20 11/06/22 clonidine HCl 0.1 mg tablet 0.1 mg PO BID 11/06/22 11/06/22 fluoxetine 20 mg capsule 20 mg PO QAM 11/06/22 11/06/22 lorazepam 0.5 mg tablet 0.5 mg PO TID 11/06/22 11/06/22 lumateperone 42 mg capsule 42 mg PO DAILY 11/06/22 11/06/22 (Caplyta) paliperidone palmitate 234 mg/1.5 0 mg IM .Q28 DAYS 11/06/22 11/06/22 mL intramuscular syringe (Invega Sustenna) Previous Rx's Medication Instructions Recorded chlorpromazine 50 mg tablet 25 mg PO TID #0 tabs 07/15/20 Results & Data (ED) Vital Signs Vital Signs - 24 hr 11/05/22 22:58 11/06/22 01:00 Temperature 36.8 C Temperature Source Oral Pulse Rate 92 H Pulse Rate [Right Finger] 77 Pulse Rhythm [Right Finger] Regular Respiratory Rate 18 14 Respiratory Effort / Characteristics Non-Labored Spontaneous Non-Labored Spontaneous Respiratory Depth Normal Normal Respiratory Pattern Regular Regular Blood Pressure 118/83 Blood Pressure [Left Arm] 135/75 Blood Pressure Mean 94 Blood Pressure Mean [Left Arm] 95 Pulse Oximetry 98 98 Oxygen Delivery Method Room Air Room Air Sepsis Recent Fever Within 48 Hours No Sepsis New/Unexplained Change in Mental Status No Sepsis Action Taken by Nursing No Action Required Laboratory Data 11/05/22 23:05 11/05/22 23:05 Lab Results 11/05/22 11/05/22 11/05/22 Range/Units 23:00 23:00 23:05 WBC 10.47 (4.8-10.8) K/ul RBC 4.61 L (4.70-6.10) M/uL Hgb 14.4 (14.0-18.0) g/dl Hct 39.9 L (42.0-52.0) % MCV 86.6 (80.0-100.0) fL MCH 31.2 (25.0-34.0) pg MCHC 36.1 H (32.0-36.0) g/dL RDW Std Deviation 39.8 (36.4-46.3) fL RDW Coeff of Mars 12.7 (11.5-14.5) % Plt Count 302 (130-400) K/uL MPV 9.1 L (9.4-12.4) fL Immature Gran % (Auto) 0.4 % Neut % (Auto) 81.8 % Lymph % (Auto) 11.2 % [place] % (Auto) 6.0 % Eos % (Auto) 0.4 % Baso % (Auto) 0.2 % Neut # (Auto) 8.57 H (1.40-6.50) K/uL Lymph # (Auto) 1.17 L (1.2-3.4) K/uL [place] # (Auto) 0.63 H (0.11-0.59) K/uL Eos # (Auto) 0.04 (0-0.50) K/uL Baso # (Auto) 0.02 (0-0.2) K/uL Immature Gran # (Auto) 0.04 (0.01-0.20) K/uL Sodium (136-145) mmol/L Potassium (3.5-5.1) mmol/L Chloride (98-107) mmol/L Carbon Dioxide (21-32) mmol/L Anion Gap (3-11) BUN (6-23) mg/dl Creatinine (0.6-1.4) mg/dl Est Cr Clr Drug Dosing ml/min Est GFR ( Amer) ml/min Est GFR (Non-Af Amer) ml/min BUN/Creatinine Ratio (10-20) Glucose (70-99(Fasting)) mg/dl Calcium (8.6-10.3) mg/dl Total Bilirubin (0.2-1.0) mg/dl AST (13-39) U/L ALT (7-52) U/L Alkaline Phosphatase (34-104) U/L Total Protein (6.0-8.3) gm/dl Albumin (3.4-5.0) gm/dl Globulin (2.5-4.0) gm/dl Albumin/Globulin Ratio (0.9-2) TSH (0.300-4.500) uIu/ml Urine Color Yellow Urine Appearance Clear (Clear) Urine pH 7.0 (4.5-7.5) Ur Specific [place] 1.006 (1.000-1.030) Urine Protein Negative (Negative) Urine Glucose (UA) Negative (Negative) Urine Ketones Negative (Negative) Urine Blood 1+ H (Negative) Urine Nitrite Negative (Negative) Urine Bilirubin Negative (Negative) Urine Urobilinogen Negative (Negative) Ur Leukocyte Esterase Negative (Negative) Urine WBC (Auto) 0 (0-5) /hpf Urine RBC (Auto) 5-10 H (0-4) /hpf U Hyaline Cast (Auto) 1-5 (0-5) /lpf U Epithel Cells (Auto) 0-5 (0-5) /lpf Urine Bacteria (Auto) Negative (Negative) Salicylates (3.0-30) mg/dl Urine Opiates Screen Neg (Neg) Ur Methadone, Qual Neg (Neg) Acetaminophen (10-30) ug/ml Urine Barbiturates Neg (Neg) Ur Phencyclidine (PCP) Neg (Neg) U Amphetamin/Meth Scrn Neg (Neg) MDMA (Ecstasy) Screen Neg (Neg) U Benzodiazepines Scrn Neg (Neg) Ur Cocaine Metabolite Neg (Neg) U Marijuana (THC) Screen Neg (Neg) Ethyl Alcohol mg/dL (<10.0) mg/dl SARS-CoV-2, RNA, NAAT (NEGATIVE) 11/05/22 11/05/22 11/05/22 Range/Units 23:05 23:05 23:05 WBC (4.8-10.8) K/ul RBC (4.70-6.10) M/uL Hgb (14.0-18.0) g/dl Hct (42.0-52.0) % MCV (80.0-100.0) fL MCH (25.0-34.0) pg MCHC (32.0-36.0) g/dL RDW Std Deviation (36.4-46.3) fL RDW Coeff of Mars (11.5-14.5) % Plt Count (130-400) K/uL MPV (9.4-12.4) fL Immature Gran % (Auto) % Neut % (Auto) % Lymph % (Auto) % [place] % (Auto) % Eos % (Auto) % Baso % (Auto) % Neut # (Auto) (1.40-6.50) K/uL Lymph # (Auto) (1.2-3.4) K/uL [place] # (Auto) (0.11-0.59) K/uL Eos # (Auto) (0-0.50) K/uL Baso # (Auto) (0-0.2) K/uL Immature Gran # (Auto) (0.01-0.20) K/uL Sodium 128 L (136-145) mmol/L Potassium 3.5 (3.5-5.1) mmol/L Chloride 96 L (98-107) mmol/L Carbon Dioxide 23 (21-32) mmol/L Anion Gap 9 (3-11) BUN 3 L (6-23) mg/dl Creatinine 0.65 (0.6-1.4) mg/dl Est Cr Clr Drug Dosing 150.4 ml/min Est GFR ( Amer) 129.6 ml/min Est GFR (Non-Af Amer) 111.9 ml/min BUN/Creatinine Ratio 4.6 L (10-20) Glucose 117 H (70-99(Fasting)) mg/dl Calcium 9.7 (8.6-10.3) mg/dl Total Bilirubin 0.5 (0.2-1.0) mg/dl AST 11 L (13-39) U/L ALT 8 (7-52) U/L Alkaline Phosphatase 74 (34-104) U/L Total Protein 7.5 (6.0-8.3) gm/dl Albumin 4.5 (3.4-5.0) gm/dl Globulin 3.0 (2.5-4.0) gm/dl Albumin/Globulin Ratio 1.5 (0.9-2) TSH 0.777 (0.300-4.500) uIu/ml Urine Color Urine Appearance (Clear) Urine pH (4.5-7.5) Ur Specific [place] (1.000-1.030) Urine Protein (Negative) Urine Glucose (UA) (Negative) Urine Ketones (Negative) Urine Blood (Negative) Urine Nitrite (Negative) Urine Bilirubin (Negative) Urine Urobilinogen (Negative) Ur Leukocyte Esterase (Negative) Urine WBC (Auto) (0-5) /hpf Urine RBC (Auto) (0-4) /hpf U Hyaline Cast (Auto) (0-5) /lpf U Epithel Cells (Auto) (0-5) /lpf Urine Bacteria (Auto) (Negative) Salicylates < 3.0 L (3.0-30) mg/dl Urine Opiates Screen (Neg) Ur Methadone, Qual (Neg) Acetaminophen < 3 L (10-30) ug/ml Urine Barbiturates (Neg) Ur Phencyclidine (PCP) (Neg) U Amphetamin/Meth Scrn (Neg) MDMA (Ecstasy) Screen (Neg) U Benzodiazepines Scrn (Neg) Ur Cocaine Metabolite (Neg) U Marijuana (THC) Screen (Neg) Ethyl Alcohol mg/dL (<10.0) mg/dl SARS-CoV-2, RNA, NAAT (NEGATIVE) 11/05/22 11/05/22 Range/Units 23:05 23:30 WBC (4.8-10.8) K/ul RBC (4.70-6.10) M/uL Hgb (14.0-18.0) g/dl Hct (42.0-52.0) % MCV (80.0-100.0) fL MCH (25.0-34.0) pg MCHC (32.0-36.0) g/dL RDW Std Deviation (36.4-46.3) fL RDW Coeff of Mars (11.5-14.5) % Plt Count (130-400) K/uL MPV (9.4-12.4) fL Immature Gran % (Auto) % Neut % (Auto) % Lymph % (Auto) % Jefferson % (Auto) % Eos % (Auto) % Baso % (Auto) % Neut # (Auto) (1.40-6.50) K/uL Lymph # (Auto) (1.2-3.4) K/uL [place] # (Auto) (0.11-0.59) K/uL Eos # (Auto) (0-0.50) K/uL Baso # (Auto) (0-0.2) K/uL Immature Gran # (Auto) (0.01-0.20) K/uL Sodium (136-145) mmol/L Potassium (3.5-5.1) mmol/L Chloride (98-107) mmol/L Carbon Dioxide (21-32) mmol/L Anion Gap (3-11) BUN (6-23) mg/dl Creatinine (0.6-1.4) mg/dl Est Cr Clr Drug Dosing ml/min Est GFR ( Amer) ml/min Est GFR (Non-Af Amer) ml/min BUN/Creatinine Ratio (10-20) Glucose (70-99(Fasting)) mg/dl Calcium (8.6-10.3) mg/dl Total Bilirubin (0.2-1.0) mg/dl AST (13-39) U/L ALT (7-52) U/L Alkaline Phosphatase (34-104) U/L Total Protein (6.0-8.3) gm/dl Albumin (3.4-5.0) gm/dl Globulin (2.5-4.0) gm/dl Albumin/Globulin Ratio (0.9-2) TSH (0.300-4.500) uIu/ml Urine Color Urine Appearance (Clear) Urine pH (4.5-7.5) Ur Specific [place] (1.000-1.030) Urine Protein (Negative) Urine Glucose (UA) (Negative) Urine Ketones (Negative) Urine Blood (Negative) Urine Nitrite (Negative) Urine Bilirubin (Negative) Urine Urobilinogen (Negative) Ur Leukocyte Esterase (Negative) Urine WBC (Auto) (0-5) /hpf Urine RBC (Auto) (0-4) /hpf U Hyaline Cast (Auto) (0-5) /lpf U Epithel Cells (Auto) (0-5) /lpf Urine Bacteria (Auto) (Negative) Salicylates (3.0-30) mg/dl Urine Opiates Screen (Neg) Ur Methadone, Qual (Neg) Acetaminophen (10-30) ug/ml Urine Barbiturates (Neg) Ur Phencyclidine (PCP) (Neg) U Amphetamin/Meth Scrn (Neg) MDMA (Ecstasy) Screen (Neg) U Benzodiazepines Scrn (Neg) Ur Cocaine Metabolite (Neg) U Marijuana (THC) Screen (Neg) Ethyl Alcohol mg/dL < 10.0 (<10.0) mg/dl SARS-CoV-2, RNA, NAAT NEGATIVE (NEGATIVE) Administered Medications Discontinued Medications Sodium Chloride (Nss 1000ml) 1,000 mls @ 999 mls/hr IV .Q1H1M ONE Stop: 11/06/22 01:15 Last Infusion: 11/06/22 01:19 Dose: 0 mls/hr Documented By: Admin: 11/06/22 00:32 Dose: 999 mls/hr Documented By: JENSEN Discharge Plan Visit Data Chief Complaint: Mental Health Evaluation ED Provider: Marlyn Rangel Discharge Problem: Acute hyponatremia, Suicidal ideation
[2022-11-06] MEDS ORDERED: POLYETHYLENE (MIRALAX) 17 GM PACK PO PRN (04:31)
[2022-11-06] MEDS ORDERED: PALIPERIDONE PALMITATE 234 MG/1.5 ML SYR IM SCH (04:31)
[2022-11-06] MEDS ORDERED: ACETAMINOPHEN 325 MG TAB PO PRN (04:31)
[2022-11-06] MEDS ORDERED: ALUMINUM/MAGNESIUM SUSP 30 ML UDC PO PRN (04:31)
--- NOTE | 2022-11-06 05:34 | History & Physical Report ---
Date of Service November 06, 2022 Assessment & Plan (1) Acute hyponatremia: Plan: Patient presents to ED with complaints of suicidal ideation along with auditory hallucinations with underlying history of schizophrenia. Lab data shows evidence of serum sodium level of 128 Clinical examination reveals evidence of dehydration with dry oral mucosa and decreased p.o. intake Patient was given IV fluid bolus in the ED Differential for hyponatremia includes volume depletion. Also other causes of hyponatremia including SIADH from antipsychotics is a diagnosis of exclusion once volume is corrected obtain urine sodium and osmolality Obtain serial sodium levels and target correction of 6 mEq or less over 24 hours (2) Suicidal ideation: Plan: Patient presents with suicidal ideation with underlying history of schizophrenia Patient replaced on suicide watch with close monitoring (3) Schizophrenia: Plan: Continue antipsychotics pending psychiatry consultation (4) Hypokalemia: Plan: Patient also found to have a low potassium level of 3.5 likely secondary to poor p.o. intake Potassium repleted and recheck levels in a.m. Admission and Anticipated Discharge Date Admission Date: November 06, 2022 History of Present Illness Chief Complaint: Patient presents to ED with suicidal ideation and auditory hallucinations Primary Care Provider: Liya Dowell PA-C This is a 50-year-old male with past medical history significant history of schizophrenia with multiple prior psychiatric admissions who presents to the emergency department sent from [facility] with complaints of suicidal ideation for psychiatric evaluation. Patient had reported that he wanted to slice his forearm with a blade and hence the staff were concerned and had sent the patient to the ED for further evaluation. Patient also had expressed auditory hallucinations as well to staff members. Patient was evaluated the ED and was found to have serum sodium level of 128 and potassium level of 3.5 with concern for dehydration in the ED. Patient was started on IV fluids for hydration and patient is being admitted to medical service for close monitoring along with psychiatric consultation to be obtained. Allergies Allergy/AdvReac Type Severity Reaction Status Date / Time No Known Allergies Allergy Verified 11/06/22 00:56 Home Medications Medication Instructions Recorded Confirmed Type benztropine 0.5 mg tablet 0.5 mg PO BID 07/01/20 11/06/22 History trazodone 100 mg tablet 100 mg PO HS 07/01/20 11/06/22 History chlorpromazine 50 mg tablet 25 mg PO TID #0 tabs 07/15/20 11/06/22 Rx clonidine HCl 0.1 mg tablet 0.1 mg PO BID 11/06/22 11/06/22 History fluoxetine 20 mg capsule 20 mg PO QAM 11/06/22 11/06/22 History lorazepam 0.5 mg tablet 0.5 mg PO TID 11/06/22 11/06/22 History lumateperone 42 mg capsule 42 mg PO DAILY 11/06/22 11/06/22 History (Caplyta) paliperidone palmitate 234 mg/1.5 0 mg IM .Q28 DAYS 11/06/22 11/06/22 History mL intramuscular syringe (Invega Sustenna) Past Med/Surg History Medical History Schizophrenia Self-injurious behavior Social History Smoking Status: Current every day smoker Tobacco Type: Cigarettes Preferred Language: Maori Communication Ability: Effective Computer Operations Specialist Required: No Beliefs That Will Affect Care: None Feels Safe at Home: No Assistive Devices: Glasses Review of Systems Review of Systems: Review of system obtained from nursing staff and based on chart review Constitutional-no fever or chills ENT-no blurred vision Respiratory- no shortness of breath noted with exertion. No wheezing Cardiac-no palpitations, no chest pain, no syncope GI-constipation reported - no hematuria Physical Exam Physical Exam: Head and ENT no thyroid enlargement trachea midline Oral mucosa dry Cardiovascular S1-S2 are normal no S3 Lungs bilateral air entry fair no wheezing Abdomen soft nondistended positive bowel sounds no rebound tenderness Extremity shows trace edema Neurologically no focal deficits Skin shows no rash no cyanosis Results & Data Results & Data Vital Signs (Past 12 Hours) Vital Signs Temp Pulse Pulse Resp BP BP Pulse Ox 11/06/22 03:35 75 16 147/92 H 99 11/06/22 01:00 77 14 135/75 98 11/05/22 22:58 36.8 C 92 H 18 118/83 98 O2 Del Method 11/06/22 03:35 11/06/22 01:00 Room Air 11/05/22 22:58 Room Air Laboratory Results Short CBC 11/05/22 Range/Units 23:05 WBC 10.47 (4.8-10.8) K/ul Hgb 14.4 (14.0-18.0) g/dl Hct 39.9 L (42.0-52.0) % Plt Count 302 (130-400) K/uL BMP 11/05/22 23:05 Sodium 128 L Potassium 3.5 Chloride 96 L Carbon Dioxide 23 BUN 3 L Creatinine 0.65 Glucose 117 H Calcium 9.7 Liver Function 11/05/22 Range/Units 23:05 Total Bilirubin 0.5 (0.2-1.0) mg/dl AST 11 L (13-39) U/L ALT 8 (7-52) U/L Alkaline Phosphatase 74 (34-104) U/L Albumin 4.5 (3.4-5.0) gm/dl Urine 11/05/22 Range/Units 23:00 Urine Color Yellow Urine Appearance Clear (Clear) Urine pH 7.0 (4.5-7.5) Ur Specific [place] 1.006 (1.000-1.030) Urine Protein Negative (Negative) Urine Glucose (UA) Negative (Negative) Code Status & VTE Plan VTE Prophylaxis Plan VTE Prophylaxis will be ordered: Yes PG Care Time/CCT Total # of Minutes Spent Total Time Spent with Patient: Total time spent is greater than 50% in coordination of care (as documented) at patient's floor/unit and/or counseling patient: Coding Level of Care Code 45416 INT INP/OBS CARE 2/55MIN Diagnoses Acute hyponatremia E87.1 Suicidal ideation R45.851 Schizophrenia F20.9 Hypokalemia E87.6
[2022-11-06 07:15] LABS: BUN Creatinine Ratio 6.7 (10-20); Calcium 8.3 mg/dl (8.6-10.3); Est GFR (Non-African American) 115.6 ml/min; Potassium 3.6 mmol/L (3.5-5.1)
[2022-11-06] MEDS ORDERED: LORazepam 0.5 MG TAB PO SCH (09:00)
[2022-11-06] MEDS ORDERED: FLUoxetine HCL 20 MG CAP PO SCH (09:00)
[2022-11-06] MEDS ORDERED: BENZTROPINE MESYLATE 0.5 MG TAB PO SCH (09:00)
[2022-11-06] MEDS ORDERED: HEPARIN SOD 5,000 UNIT/0.5 ML VIAL SQ SCH (09:00)
[2022-11-06] MEDS ORDERED: chlorproMAZINE HCL 25 MG TAB PO SCH (09:00)
[2022-11-06] MEDS ORDERED: cloNIDine HCL 0.1 MG TAB PO SCH (09:00)
[2022-11-06 10:37] LABS: Creatinine Urine Random 52.9 mg/dl
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
[2022-11-06] MEDS ORDERED: QUEtiapine FUMARATE 25 MG TABLET PO PRN (13:05)
--- NOTE | 2022-11-06 15:40 | Electrocardiogram Report ---
Test Reason : Blood Pressure : / mmHG Vent. Rate : 064 BPM Atrial Rate : 064 BPM P-R Int : 192 ms QRS Dur : 070 ms QT Int : 384 ms P-R-T Axes : 068 045 034 degrees QTc Int : 396 ms Normal sinus rhythm Normal ECG No previous ECGs available Confirmed by Arik Clarke ([id number]) on 11/06/2022 3:40:29 PM Referred By: REFERRED SELF Confirmed By:Abilio Clarke
--- NOTE | 2022-11-06 16:13 | Discharge Summary ---
Discharge Summary Date of Service November 06, 2022 Admission HPI Per Admitting Provider This is a 50-year-old male with past medical history significant history of schizophrenia with multiple prior psychiatric admissions who presents to the emergency department sent from [facility] with complaints of suicidal ideation for psychiatric evaluation. Patient had reported that he wanted to slice his forearm with a blade and hence the staff were concerned and had sent the patient to the ED for further evaluation. Patient also had expressed auditory hallucinations as well to staff members. Patient was evaluated the ED and was found to have serum sodium level of 128 and potassium level of 3.5 with concern for dehydration in the ED. Patient was started on IV fluids for hydration and patient is being admitted to medical service for close monitoring along with psychiatric consultation to be obtained. Principal Dx & Hospital Course #1 = Principal Diagnosis (1) Acute hyponatremia: Patient presents to ED with complaints of suicidal ideation along with auditory hallucinations with underlying history of schizophrenia. Lab data shows evidence of serum sodium level of 128 Clinical examination reveals evidence of dehydration with dry oral mucosa and decreased p.o. intake Patient was given IV fluid bolus in the ED Differential for hyponatremia includes volume depletion. Also other causes of hyponatremia including SIADH from antipsychotics, however his Na+ corrected to 135 with receiving 1L NS. He is asymptomatic with this Encourage po fluids, regular diet Check BMP on psych unit in 2 days given ongoing psych medication use and propensity for SIADH Medically cleared for discharge to [facility] (2) Suicidal ideation: Patient presents with suicidal ideation with underlying history of schizophrenia Patient replaced on suicide watch with close monitoring transfer to [facility] (3) Schizophrenia: Continue antipsychotics pending psychiatry consultation ECG here normal with normal QTc (4) Hypokalemia: Patient also found to have a low potassium level of 3.5 likely secondary to poor p.o. intake Potassium repleted due to recent poor po intake check BMP in 2 days at [facility] Plan Dispo-dc to [facility] Discharge Exam Constitutional WD/WN, vitals as above Respiratory normal respiratory effort, lungs clear to auscultation Cardiovascular RRR, no murmur, no edema Updated Medication List Medication Instructions Recorded Confirmed Type benztropine 0.5 mg tablet 0.5 mg PO BID 07/01/20 11/06/22 History trazodone 100 mg tablet 100 mg PO HS 07/01/20 11/06/22 History clonidine HCl 0.1 mg tablet 0.1 mg PO BID 11/06/22 11/06/22 History fluoxetine 20 mg capsule 20 mg PO QAM 11/06/22 11/06/22 History lorazepam 0.5 mg tablet 0.5 mg PO BID 11/06/22 11/06/22 History lumateperone 42 mg capsule 42 mg PO DAILY 11/06/22 11/06/22 History (Caplyta) paliperidone palmitate 234 mg/1.5 234 mg IM MONTHLY 11/06/22 11/06/22 History mL intramuscular syringe (Invega Sustenna) Hospital Stay Data Consultations 11/06/22 00:17 ED Decision to Admit Stat 11/06/22 04:31 Consult Psychiatry Routine Pending Results Patient Have Any Pending Studies at Discharge: No Discharge Instructions Given to Patient (Per Discharging Provider) Transferred to Behavioral Health Unit Please check a BMP in 2 days to ensure sodium remains stable. Total Time Total Time Spent Total Time Spent (In Minutes): 35 min Total Time Includes: Examination of the Patient, Discharge Planning, Medication Reconciliation and Communication With Other Providers (Psychiatry) Coding Level of Care Code INP/OBS EV SAME DAY LV 1,45MIN Diagnoses Acute hyponatremia E87.1 Suicidal ideation R45.851 Schizophrenia F20.9 Hypokalemia E87.6
[2022-11-06] MEDS ORDERED: PALIPERIDONE 3 MG TABCR PO SCH (21:00)
[2022-11-06] MEDS ORDERED: traZODone HCL 100 MG TAB PO SCH (21:00)
== END 2022-11-06 16:10 | DRG 641 ==
LOC: ED 22:37 → SUATTDRO 11-06 02:15 → EDINP 11-06 02:15 → INTOOBSV 11-06 02:15 → EDINP 11-06 04:28

== ENCOUNTER 2022-11-06 16:27 | Inpatient (IN) ==
[2022-11-06] MEDS ORDERED: ACETAMINOPHEN 325 MG TAB PO PRN (16:33)
[2022-11-06] MEDS ORDERED: BISMUTH SUBSALICYLATE LIQD 236 ML PO PRN (16:33)
[2022-11-06] MEDS ORDERED: hydrOXYzine HCl 25 MG TAB PO PRN ×2 (16:33)
[2022-11-06] MEDS ORDERED: ALUMINUM/MAGNESIUM SUSP 30 ML UDC PO PRN (16:33)
[2022-11-06] MEDS ORDERED: SODIUM CHLORIDE 0.65% NA SOLN 45 ML (OCEAN) PRN (16:33)
[2022-11-06] MEDS ORDERED: NICOTINE POLACRILEX 2 MG GUM MT PRN (16:33)
[2022-11-06] MEDS: NICOTINE 21 MG/24 HR TDSY TD SCH (17:09)
[2022-11-06] MEDS ORDERED: QUEtiapine FUMARATE 25 MG TABLET PO PRN (17:24)
[2022-11-06] MEDS: LORazepam 0.5 MG TAB PO SCH (20:41)
[2022-11-06] MEDS: BENZTROPINE MESYLATE 0.5 MG TAB PO SCH (20:41)
[2022-11-06] MEDS: PALIPERIDONE 3 MG TABCR PO SCH (20:41)
[2022-11-06] MEDS: cloNIDine HCL 0.1 MG TAB PO SCH (20:41)
[2022-11-06] MEDS: traZODone HCL 100 MG TAB PO SCH (20:41)
[2022-11-07] MEDS: cloNIDine HCL 0.1 MG TAB PO SCH ×2 (08:40→20:51)
[2022-11-07] MEDS: NICOTINE 21 MG/24 HR TDSY TD SCH (08:40)
[2022-11-07] MEDS: BENZTROPINE MESYLATE 0.5 MG TAB PO SCH ×2 (08:40→20:51)
[2022-11-07] MEDS: LORazepam 0.5 MG TAB PO SCH ×2 (08:43→20:51)
[2022-11-07] MEDS ORDERED: FLUoxetine HCL 20 MG CAP PO SCH (09:00)
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
[2022-11-07] MEDS ORDERED: PALIPERIDONE 1.5 MG TABCR PO PRN (15:52)
[2022-11-07] MEDS: LORazepam 0.5 MG TAB PO PRN (17:02)
[2022-11-07] MEDS: PALIPERIDONE 3 MG TABCR PO SCH (20:52)
[2022-11-07] MEDS: traZODone HCL 100 MG TAB PO SCH (20:52)
[2022-11-08] MEDS: BENZTROPINE MESYLATE 0.5 MG TAB PO SCH ×2 (08:50→20:44)
[2022-11-08] MEDS: NICOTINE 21 MG/24 HR TDSY TD SCH (08:50)
[2022-11-08] MEDS: LORazepam 0.5 MG TAB PO SCH ×2 (08:50→20:44)
[2022-11-08] MEDS: cloNIDine HCL 0.1 MG TAB PO SCH ×2 (08:51→20:44)
[2022-11-08] MEDS: FLUoxetine HCL 20 MG CAP PO SCH (08:51)
[2022-11-08] MEDS ORDERED: DOCUSATE SODIUM/SENNA 50/8.6MG TAB PO PRN (08:57)
[2022-11-08] MEDS ORDERED: ONDANSETRON 4 MG OD TAB PO PRN (14:26)
[2022-11-08] MEDS: MAGNESIUM HYDROXIDE SUSP 30 ML UDC PO PRN (15:03)
--- NOTE | 2022-11-08 16:21 | Psychiatric Progress Note ---
Date of Service November 08, 2022 Impression / Recommendations Impression Umberto is a 52 year old with a history of schizophrenia who was admitted for worsening psychosis, delusions, self-guilt and increased SI with plans of cutting himself with history of serious past attempt via cutting his neck. Diagnostically consistent with unspecified psychosis-differential includes acute exacerbation of psychosis due to schizophrenia with increased auditory hallucinations leading to SI and delusions versus major depression episode with psychotic features leading to self-guilt, SI and worsening psychosis. UDS was negative for cannabis so suspect he has been vaping nicotine products which makes substance-induced component much less likely. He is deemed in need of psychiatric hospitalization for diagnostic clarification, safety and stabilization, medication management and development of further coping skills. MNPR due to acute psychosis and delusions 11/08/2022: Ongoing psychosis, less intense SI as he feels safe in the hospital but continues to feel overwhelmed by auditory hallucinations. Not finding much relief from supplemental po Invega. Plan to contact his outpatient psychiatric provider Liya Dowell tomorrow to review his past medication trials and determine if it makes sense to keep him on HAYES versus clozapine trial in effort to avoid dual antipsychotic therapy. (1) Suicidal ideation: (2) Schizophrenia: (3) Depression: (4) Psychotic disorder: Plan 11/08/2022: Continue current medications and tx plan. Additional prn Invega and ativan added. Hold off on next Invega HAYES until make decision about continuing with Invega versus clozapine trial. 11/07/2022: The patient was admitted to the [facility] ([facility] mental health unit) on q15 min checks (behavioral with suicide precautions) for safety. The patient will participate in group, recreational, and milieu therapies and will be offered additional individual and family sessions as clinically appropriate. -Continue prior to admission clonidine, trazodone -lorazepam 0.5mg BID -hold Capltya as not on hospital formulary and seemingly not providing enough benefit and in effort to reduce polypharmacy of dual antipsychotic use -increase fluoxetine to 40mg daily to target depression and SI -Plan for Invega Sustenna 234mg HAYES on and supplement with oral dose paliperidone 3mg HS po -Repeat labs on 11/09/2022 for CMP to ensure sodium remains stable, fasting glucose and fasting lipid panel Inventory Assets Strengths: willing for treatment, supportive living home, has been stable for extended periods in the past Needs: safety and stabilization, medication adjustment, additional coping skills, increased outpatient services Suicide Risk Level Suicide Risk Level: High-Moderate (q15 min suicide checks) (psychosis with previous command AH (none currently), severe depression with SI with plan prior to admission but feels safe in the hospital, able to safety contract and agrees to let nursing/staff know should they develop plan, intent or feel unable to remain safe) Risk Factors Assessment Male: Yes : Yes Do You Have Access To A Gun?: No Health Problems: No Mental Health Diagnoses: Yes Substance Use Disorders: No Previous Attempt: Yes Family History of Suicide: No Previous Psychiatric Hospitalization: Yes Protective Factors Assessment : No Employed: No Stable Relationships: Yes Good Rapport with Provider: Yes Interval History Identifying Information UMBERTO DAMIAN is a 52-year-old man who currently lives in supportive psychiatric intermediate in [place], has a history of schizophrenia, and was admitted on 11/06/22 16:27 on a 201 voluntary commitment for worsening psychosis and SI with plan to cut himself. Chief Complaint "I'm ok". Review of Systems Sleep Information Total Hours of Sleep: 7.75 Meal Information Percent Meal Consumed - Breakfast: 100 Percent Meal Consumed - Lunch: 100 Percent Meal Consumed - Dinner: 75 Subjective Subjective Patient was seen & assessed and interval progress reviewed with treatment team nursing and social work. Yesterday evening reported increased distress from AH which he stated were accusatory and controlling. Today whispers and asks me to close his door when asked about the auditory hallucinations and feels unable to discuss them in any detail. States he feels his SI is from "being overwhelmed" and not due to depression. Doesn't feel he's been depressed. He was given prn Invega and ativan yesterday for the voices which he felt helped "my body felt ca lm but my mind was still anxious". Reviewed plan to speak with his outpatient provider tomorrow which he appreciates as he trusts her. Physical Exam Psychiatric Orientation: alert and oriented x 3 Apperance: appropriately dressed, appropriately groomed and + disheveled Eye Contact: + fair eye contact Motor Behavior: no abnormal motor movements Speech: + abnormal rate/rhythm/volume of speech (soft, slightly latent) Affect: + depressed affect and + anxious affect Mood: + depressed mood and + anxious mood Thought Process: + perseveration Thought Content: + delusions and + guilt Suicidal Thoughts: + reports suicidal thoughts and + reports suicidal plan (none for hospital, outside hospital to cut himself) Homicidal Thoughts: denies homicidal thoughts Hallucinations: + auditory hallucinations; no visual hallucinations Cognition: language grossly intact; + attention not intact Estimated Intelligence: consistent with education level Insight: + limited insight Judgment: + limited judgement Vital Signs (Past 24 Hours) Last Vital Signs Temp 36.5 C 11/08/22 06:41 Pulse 93 H 11/08/22 06:41 Resp 16 11/08/22 06:41 BP 124/82 11/08/22 06:41 Pulse Ox 99 11/06/22 16:43 O2 Del Method Room Air 11/06/22 16:43 Results & Data ([facility]) Current Inpatient Medications Current Inpatient Medications: Current Inpatient Medications Acetaminophen (Acetaminophen 325 Mg Tab) 650 mg PO Q4H PRN PRN Reason: Headache or Minor Fever Stop: 12/06/22 16:32 Al Hydrox/Mg Hydrox/Simethicone (Aluminum/Magnesium Susp 30 Ml Udc) 30 ml PO Q4H PRN PRN Reason: GI Upset Stop: 12/06/22 16:32 Benztropine Mesylate (Benztropine Mesylate 0.5 Mg Tab) 0.5 mg PO BID [facility] Stop: 12/06/22 20:59 Last Admin: 11/08/22 08:50 Dose: 0.5 mg Bismuth Subsalicylate (Bismuth Subsalicylate Liqd 236 Ml) 15 ml PO PRN PRN PRN Reason: Loose Stool Stop: 12/06/22 16:32 Clonidine HCl (Clonidine Hcl 0.1 Mg Tab) 0.1 mg PO BID [facility] Stop: 12/06/22 20:59 Last Admin: 11/08/22 08:51 Dose: 0.1 mg Fluoxetine HCl (Fluoxetine Hcl 20 Mg Cap) 40 mg PO QAM [facility] Stop: 12/08/22 08:59 Last Admin: 11/08/22 08:51 Dose: 40 mg Hydroxyzine HCl (Hydroxyzine Hcl 25 Mg Tab) 50 mg PO HSZ PRN PRN Reason: Insomnia Stop: 12/06/22 16:32 Hydroxyzine HCl (Hydroxyzine Hcl 25 Mg Tab) 25 mg PO Q4H PRN PRN Reason: Anxiety Stop: 12/06/22 16:32 Lorazepam (Lorazepam 0.5 Mg Tab) 0.5 mg PO BID [facility] Stop: 12/06/22 20:59 Last Admin: 11/08/22 08:50 Dose: 0.5 mg Lorazepam (Lorazepam 0.5 Mg Tab) 0.5 mg PO BID PRN PRN Reason: Anxiety Stop: 12/07/22 15:51 Last Admin: 11/07/22 17:02 Dose: 0.5 mg Magnesium Hydroxide (Magnesium Hydroxide Susp 30 Ml Udc) 30 ml PO DAILY PRN PRN Reason: Constipation Stop: 12/06/22 16:32 Last Admin: 11/08/22 15:03 Dose: 30 ml Miscellaneous (Remove Nicoderm Patch) 1 each N/A DAILY@0859 [facility] Stop: 12/07/22 08:58 Last Admin: 11/08/22 08:50 Dose: 1 each Nicotine (Nicotine 21 Mg/24 Hr Tdsy) 21 mg TD QAM [facility] Stop: 12/06/22 16:44 Last Admin: 11/08/22 08:50 Dose: 21 mg Nicotine Polacrilex (Nicotine Polacrilex 2 Mg Gum) 2 piece MT PRN PRN PRN Reason: Nicotine Withdrawal Stop: 12/06/22 16:32 Ondansetron HCl (Ondansetron 4 Mg Od Tab) 4 mg PO BID PRN PRN Reason: Nausea Stop: 12/08/22 14:25 Last Admin: 11/08/22 14:59 Dose: 4 mg Paliperidone (Paliperidone 3 Mg Tabcr) 3 mg PO HS [facility] Stop: 12/06/22 21:59 Last Admin: 11/07/22 20:52 Dose: 3 mg Paliperidone (Paliperidone 1.5 Mg Tabcr) 1.5 mg PO TID PRN PRN Reason: psychosis/paranoia Stop: 12/07/22 20:59 Last Admin: 11/07/22 17:02 Dose: 1.5 mg Senna/Docusate Sodium (Docusate Sodium/Senna 50/8.6mg Tab) 1 tab PO QAM PRN PRN Reason: Constipation Stop: 12/08/22 08:59 Sodium Chloride (Sodium Chloride 0.65% Na Soln 45 Ml ([place])) 1 - 2 sprays NA PRN PRN PRN Reason: Nasal Dryness/Congestion Stop: 12/06/22 16:32 Trazodone HCl (Trazodone Hcl 100 Mg Tab) 100 mg PO HS [facility] Stop: 12/06/22 21:59 Last Admin: 11/07/22 20:52 Dose: 100 mg
[2022-11-08] MEDS: traZODone HCL 100 MG TAB PO SCH (20:45)
[2022-11-08] MEDS: PALIPERIDONE 3 MG TABCR PO SCH (20:45)
[2022-11-09] MEDS: LORazepam 0.5 MG TAB PO PRN (04:36)
[2022-11-09 08:25] LABS: Bilirubin,Total 0.6 mg/dl (0.2-1.0); Potassium 4.5 mmol/L (3.5-5.1)
[2022-11-09 08:31] LABS: Albumin Globulin Ratio 1.4 (0.9-2); BUN Creatinine Ratio 12.5 (10-20); Creatinine Clr Calc Pharmacy 125.1 ml/min; Est GFR (African American) 124.3 ml/min; Est GFR (Non-African American) 107.3 ml/min; Globulin 2.8 gm/dl (2.5-4.0); Total Protein 6.8 gm/dl (6.0-8.3)
[2022-11-09] MEDS: FLUoxetine HCL 20 MG CAP PO SCH (08:36)
[2022-11-09] MEDS: LORazepam 0.5 MG TAB PO SCH ×2 (08:36→21:00)
[2022-11-09] MEDS: cloNIDine HCL 0.1 MG TAB PO SCH ×2 (08:36→21:00)
[2022-11-09] MEDS: BENZTROPINE MESYLATE 0.5 MG TAB PO SCH ×2 (08:36→21:00)
[2022-11-09] MEDS: NICOTINE 21 MG/24 HR TDSY TD SCH (08:36)
--- NOTE | 2022-11-09 17:28 | Psychiatric Progress Note ---
Date of Service November 09, 2022 Impression / Recommendations Impression Umberto is a 52 year old with a history of schizophrenia who was admitted for worsening psychosis, delusions, self-guilt and increased SI with plans of cutting himself with history of serious past attempt via cutting his neck. Diagnostically consistent with unspecified psychosis-differential includes acute exacerbation of psychosis due to schizophrenia with increased auditory hallucinations leading to SI and delusions versus major depression episode with psychotic features leading to self-guilt, SI and worsening psychosis. UDS was negative for cannabis so suspect he has been vaping nicotine products which makes substance-induced component much less likely. He is deemed in need of psychiatric hospitalization for diagnostic clarification, safety and stabilization, medication management and development of further coping skills. MNPR due to acute psychosis and delusions 11/09/2022: Ongoing psychosis, less intense SI as he feels safe in the hospital but continues to feel overwhelmed by auditory hallucinations. Not finding much relief from supplemental po Invega or ativan and had difficulty sleeping last night. Spoke with his outpatient provider Liya Dowell and she recalls past trials of Geodone and Seroquel. No known history of prior clozapine trial. She is in agreement with clozapine trial given his limited benefit to augmentation with Caplyta and breakthrough symptoms on Invega HAYES. She noted recent stressor could have been upcoming visit of his parents which tends to cause him to have increased anxiety. (1) Suicidal ideation: (2) Schizophrenia: (3) Depression: (4) Psychotic disorder: Plan 11/09/2022: Continue current medication and tx plan. If Umberto agrees will likely not proceed with Invega HAYES tomorrow and instead will begin clozapine trial. 11/08/2022: Continue current medications and tx plan. Additional prn Invega and ativan added. Hold off on next Invega HAYES until make decision about continuing with Invega versus clozapine trial. 11/07/2022: The patient was admitted to the [facility] ([facility] inpatient mental health unit) on q15 min checks (behavioral with suicide precautions) for safety. The patient will participate in group, recreational, and milieu therapies and will be offered additional individual and family sessions as clinically appropriate. -Continue prior to admission clonidine, trazodone -lorazepam 0.5mg BID -hold Capltya as not on hospital formulary and seemingly not providing enough benefit and in effort to reduce polypharmacy of dual antipsychotic use -increase fluoxetine to 40mg daily to target depression and SI -Plan for Invega Sustenna 234mg HAYES on and supplement with oral dose paliperidone 3mg HS po -Repeat labs on 11/09/2022 for CMP to ensure sodium remains stable, fasting gl ucose and fasting lipid panel Inventory Assets Strengths: willing for treatment, supportive living home, has been stable for extended periods in the past Needs: safety and stabilization, medication adjustment, additional coping skills, increased outpatient services Suicide Risk Level Suicide Risk Level: High-Moderate (q15 min suicide checks) (psychosis with previous command AH (none currently), severe depression with SI with plan prior to admission but feels safe in the hospital, able to safety contract and agrees to let nursing/staff know should they develop plan, intent or feel unable to remain safe) Risk Factors Assessment Male: Yes : Yes Do You Have Access To A Gun?: No Health Problems: No Mental Health Diagnoses: Yes Substance Use Disorders: No Previous Attempt: Yes Family History of Suicide: No Previous Psychiatric Hospitalization: Yes Protective Factors Assessment : No Employed: No Stable Relationships: Yes Good Rapport with Provider: Yes Interval History Identifying Information UMBERTO DAMIAN is a 52-year-old man who currently lives in supportive psychiatric [facility] in [place], has a history of schizophrenia, and was admitted on 11/06/22 16:27 on a 201 voluntary commitment for worsening psychosis and SI with plan to cut himself. Chief Complaint "so so". Review of Systems Sleep Information Total Hours of Sleep: 4.5 Sleep Comments: Received Ativan for anxiety Meal Information Percent Meal Consumed - Breakfast: 100 Percent Meal Consumed - Lunch: 75 Percent Meal Consumed - Dinner: 50 Subjective Subjective Patient was seen & assessed and interval progress reviewed with treatment team nursing and social work. Isolative to his room except for meals, continues to report intermittent distress due to the voices. Significant difficulty sleeping last night. Not interested in starting seroquel to help with sleep as recalls gaining weight with this in the past. Last night did talk with his sister and parents on the phone. Had an episode of emesis yesterday evening and found prn zofran effective. Denies any stomach issues today. Physical Exam Psychiatric Orientation: alert and oriented x 3 Apperance: appropriately dressed, appropriately groomed and + disheveled Eye Contact: + fair eye contact Motor Behavior: no abnormal motor movements Speech: + abnormal rate/rhythm/volume of speech (soft, slightly latent) Affect: + depressed affect and + anxious affect Mood: + depressed mood and + anxious mood Thought Process: + perseveration Thought Content: + delusions and + guilt Suicidal Thoughts: + reports suicidal thoughts and + reports suicidal plan (none for hospital, outside hospital to cut himself) Homicidal Thoughts: denies homicidal thoughts Hallucinations: + auditory hallucinations; no visual hallucinations Cognition: language grossly intact; + attention not intact Estimated Intelligence: consistent with education level Insight: + limited insight Judgment: + limited judgement Vital Signs (Past 24 Hours) Last Vital Signs Temp 36.4 C L 11/09/22 06:34 Pulse 81 11/09/22 06:34 Resp 16 11/09/22 06:34 BP 138/80 11/09/22 06:34 Pulse Ox 99 11/06/22 16:43 O2 Del Method Room Air 11/06/22 16:43 Results & Data ([facility]) Laboratory Results Laboratory Results - last 24 hr 11/09/22 07:28 Sodium 131 L Potassium 4.5 Chloride 98 Carbon Dioxide 30 Anion Gap 3 BUN 9 Creatinine 0.72 Est Cr Clr Drug Dosing 125.1 Est GFR ( Amer) 124.3 Est GFR (Non-Af Amer) 107.3 BUN/Creatinine Ratio 12.5 Glucose 91 Calcium 9.0 Total Bilirubin 0.6 AST 10 L ALT 8 Alkaline Phosphatase 62 Total Protein 6.8 Albumin 4.0 Globulin 2.8 Albumin/Globulin Ratio 1.4 Triglycerides 62 Cholesterol 114 LDL Cholesterol, Calc 64 VLDL Cholesterol, Calc 12 HDL Cholesterol 38 Cholesterol/HDL Ratio 3.0 Current Inpatient Medications Current Inpatient Medications: Current Inpatient Medications Acetaminophen (Acetaminophen 325 Mg Tab) 650 mg PO Q4H PRN PRN Reason: Headache or Minor Fever Stop: 12/06/22 16:32 Al Hydrox/Mg Hydrox/Simethicone (Aluminum/Magnesium Susp 30 Ml Udc) 30 ml PO Q4 H PRN PRN Reason: GI Upset Stop: 12/06/22 16:32 Benztropine Mesylate (Benztropine Mesylate 0.5 Mg Tab) 0.5 mg PO BID [facility] Stop: 12/06/22 20:59 Last Admin: 11/09/22 08:36 Dose: 0.5 mg Bismuth Subsalicylate (Bismuth Subsalicylate Liqd 236 Ml) 15 ml PO PRN PRN PRN Reason: Loose Stool Stop: 12/06/22 16:32 Clonidine HCl (Clonidine Hcl 0.1 Mg Tab) 0.1 mg PO BID [facility] Stop: 12/06/22 20:59 Last Admin: 11/09/22 08:36 Dose: 0.1 mg Fluoxetine HCl (Fluoxetine Hcl 20 Mg Cap) 40 mg PO QAM [facility] Stop: 12/08/22 08:59 Last Admin: 11/09/22 08:36 Dose: 40 mg Hydroxyzine HCl (Hydroxyzine Hcl 25 Mg Tab) 50 mg PO HSZ PRN PRN Reason: Insomnia Stop: 12/06/22 16:32 Hydroxyzine HCl (Hydroxyzine Hcl 25 Mg Tab) 25 mg PO Q4H PRN PRN Reason: Anxiety Stop: 12/06/22 16:32 Lorazepam (Lorazepam 0.5 Mg Tab) 0.5 mg PO BID [facility] Stop: 12/06/22 20:59 Last Admin: 11/09/22 08:36 Dose: 0.5 mg Lorazepam (Lorazepam 0.5 Mg Tab) 0.5 mg PO BID PRN PRN Reason: Anxiety Stop: 12/07/22 15:51 Last Admin: 11/09/22 04:36 Dose: 0.5 mg Magnesium Hydroxide (Magnesium Hydroxide Susp 30 Ml Udc) 30 ml PO DAILY PRN PRN Reason: Constipation Stop: 12/06/22 16:32 Last Admin: 11/08/22 15:03 Dose: 30 ml Miscellaneous (Remove Nicoderm Patch) 1 each N/A DAILY@0859 [facility] Stop: 12/07/22 08:58 Last Admin: 11/09/22 08:36 Dose: 1 each Nicotine (Nicotine 21 Mg/24 Hr Tdsy) 21 mg TD QAM [facility] Stop: 12/06/22 16:44 Last Admin: 11/09/22 08:36 Dose: 21 mg Nicotine Polacrilex (Nicotine Polacrilex 2 Mg Gum) 2 piece MT PRN PRN PRN Reason: Nicotine Withdrawal Stop: 12/06/22 16:32 Ondansetron HCl (Ondansetron 4 Mg Od Tab) 4 mg PO BID PRN PRN Reason: Nausea Stop: 12/08/22 14:25 Last Admin: 11/08/22 14:59 Dose: 4 mg Paliperidone (Paliperidone 3 Mg Tabcr) 3 mg PO HS [facility] Stop: 12/06/22 21:59 Last Admin: 11/08/22 20:45 Dose: 3 mg Paliperidone (Paliperidone 1.5 Mg Tabcr) 1.5 mg PO TID PRN PRN Reason: psychosis/paranoia Stop: 12/07/22 20:59 Last Admin: 11/07/22 17:02 Dose: 1.5 mg Senna/Docusate Sodium (Docusate Sodium/Senna 50/8.6mg Tab) 1 tab PO QAM PRN PRN Reason: Constipation Stop: 12/08/22 08:59 Sodium Chloride (Sodium Chloride 0.65% Na Soln 45 Ml ([place])) 1 - 2 sprays NA PRN PRN PRN Reason: Nasal Dryness/Congestion Stop: 12/06/22 16:32 Trazodone HCl (Trazodone Hcl 100 Mg Tab) 100 mg PO HS [facility] Stop: 12/06/22 21:59 Last Admin: 11/08/22 20:45 Dose: 100 mg
[2022-11-09] MEDS: PALIPERIDONE 3 MG TABCR PO SCH (21:00)
[2022-11-09] MEDS: traZODone HCL 100 MG TAB PO SCH (21:00)
[2022-11-10] MEDS: LORazepam 0.5 MG TAB PO SCH ×2 (08:53→21:39)
[2022-11-10] MEDS: BENZTROPINE MESYLATE 0.5 MG TAB PO SCH ×2 (08:53→21:39)
[2022-11-10] MEDS: cloNIDine HCL 0.1 MG TAB PO SCH ×2 (08:53→21:39)
[2022-11-10] MEDS: FLUoxetine HCL 20 MG CAP PO SCH (08:53)
[2022-11-10] MEDS: NICOTINE 21 MG/24 HR TDSY TD SCH (08:54)
[2022-11-10] MEDS: POLYETHYLENE (MIRALAX) 17 GM PACK PO SCH (09:49)
--- NOTE | 2022-11-10 15:42 | Psychiatric Progress Note ---
Date of Service November 10, 2022 Impression / Recommendations Impression Casey is a 52 year old with a history of schizophrenia who was admitted for worsening psychosis, delusions, self-guilt and increased SI with plans of cutting himself with history of serious past attempt via cutting his neck. Diagnostically consistent with unspecified psychosis-differential includes acute exacerbation of psychosis due to schizophrenia with increased auditory hallucinations leading to SI and delusions versus major depression episode with psychotic features leading to self-guilt, SI and worsening psychosis. UDS was negative for cannabis so suspect he has been vaping nicotine products which makes substance-induced component much less likely. He is deemed in need of psychiatric hospitalization for diagnostic clarification, safety and stabilization, medication management and development of further coping skills. MNPR due to acute psychosis and delusions 11/10/2022: Ongoing psychosis, less intense SI as he feels safe in the hospital but continues to feel overwhelmed by auditory hallucinations. Discussed medication options in detail including Invega HAYES versus clozapine trial. He is interested in clozapine trial. Discussed with inpatient pharmacy and provider is responsible for enrolling new patient in clozapine REMS so will start this process and provide Casey with all of the educational material. Reviewed side effects including but not limited to neutropenia, signs of infection, reasons to seek care, constipation, weight gain, orthostatic hypotension, cardiac risks, metabolic risks, movement disorder risks. ANC reviewed and stable for clozapine. (1) Suicidal ideation: (2) Schizophrenia: (3) Depression: (4) Psychotic disorder: Plan 11/10/2022: Scheduled senna s and miralax to help with constipation. Will enroll in clozapine REMS with plan to start clozapine tomorrow. 11/09/2022: Continue current medication and tx plan. If Casey agrees will likely not proceed with Invega HAYES tomorrow and instead will begin clozapine trial. 11/08/2022: Continue current medications and tx plan. Additional prn Invega and ativan added. Hold off on next Invega HAYES until make decision about continuing with Invega versus clozapine trial. 11/07/2022: The patient was admitted to the [facility] ([facility] unit) on q15 min checks (behavioral with suicide precautions) for safety. The patient will participate in group, recreational, and milieu therapies and will be offered additional individual and family sessions as clinically appropriate. -Continue prior to admission clonidine, trazodone -lorazepam 0.5mg BID -hold Capltya as not on hospital formulary and seemingly not providing enough benefit and in effort to reduce polypharmacy of dual antipsychotic use -increase fluoxetine to 40mg daily to target depression and SI -Plan for Invega Sustenna 234mg HAYES on and supplement with oral dose paliperidone 3mg HS po -Repeat labs on 11/09/2022 for CMP to ensure sodium remains stable, fasting gl ucose and fasting lipid panel Inventory Assets Strengths: willing for treatment, supportive living home, has been stable for extended periods in the past Needs: safety and stabilization, medication adjustment, additional coping skills, increased outpatient services Suicide Risk Level Suicide Risk Level: High-Moderate (q15 min suicide checks) (psychosis with previous command AH (none currently), severe depression with SI with plan prior to admission but feels safe in the hospital, able to safety contract and agrees to let nursing/staff know should they develop plan, intent or feel unable to remain safe) Risk Factors Assessment Male: Yes : Yes Do You Have Access To A Gun?: No Health Problems: No Mental Health Diagnoses: Yes Substance Use Disorders: No Previous Attempt: Yes Family History of Suicide: No Previous Psychiatric Hospitalization: Yes Protective Factors Assessment : No Employed: No Stable Relationships: Yes Good Rapport with Provider: Yes Interval History Identifying Information CASEY DAMIAN is a 52-year-old man who currently lives in supportive psychiatric assisted in [place], has a history of schizophrenia, and was admitted on 11/06/22 16:27 on a 201 voluntary commitment for worsening psychosis and SI with plan to cut himself. Chief Complaint "I'm ok". Review of Systems Sleep Information Total Hours of Sleep: 6 Sleep [facility]: [facility] Meal Information Percent Meal Consumed - Breakfast: 100 Percent Meal Consumed - Lunch: 75 Percent Meal Consumed - Dinner: 10 Subjective Subjective Patient was seen & assessed and interval progress reviewed with treatment team nursing and social work. Has not had a bowel movement since 11/05/2022 so discussed scheduling constipation medications to help with this effort. He is also agreeable to trying some prune juice. Reviewed my discussion with his tpatient psychiatric provider Liya Dowell. He would like to try clozapine. Reviewed neutropenia risks and required labwork schedule of weekly, then biweekly then monthly and he stated understanding of all of this. He is in agreement of starting this tomorrow, ideally after he has a bowel movement. Physical Exam Psychiatric Orientation: alert and oriented x 3 Apperance: appropriately dressed, appropriately groomed and + disheveled Eye Contact: + fair eye contact Motor Behavior: no abnormal motor movements Speech: + abnormal rate/rhythm/volume of speech (soft, slightly latent) Affect: + depressed affect and + anxious affect Mood: + depressed mood and + anxious mood Thought Process: + perseveration Thought Content: + delusions and + guilt Suicidal Thoughts: + reports suicidal thoughts and + reports suicidal plan (none for hospital, outside hospital to cut himself) Homicidal Thoughts: denies homicidal thoughts Hallucinations: + auditory hallucinations; no visual hallucinations Cognition: language grossly intact; + attention not intact Estimated Intelligence: consistent with education level Insight: + limited insight Judgment: + limited judgement Vital Signs (Past 24 Hours) Last Vital Signs Temp 36.5 C 11/10/22 06:38 Pulse 72 11/10/22 06:39 Resp 16 11/10/22 06:38 BP 137/85 11/10/22 06:39 Pulse Ox 99 11/06/22 16:43 O2 Del Method Room Air 11/06/22 16:43 Results & Data ([facility]) Current Inpatient Medications Current Inpatient Medications: Current Inpatient Medications Acetaminophen (Acetaminophen 325 Mg Tab) 650 mg PO Q4H PRN PRN Reason: Headache or Minor Fever Stop: 12/06/22 16:32 Al Hydrox/Mg Hydrox/Simethicone (Aluminum/Magnesium Susp 30 Ml Udc) 30 ml PO Q4H PRN PRN Reason: GI Upset Stop: 12/06/22 16:32 Benztropine Mesylate (Benztropine Mesylate 0.5 Mg Tab) 0.5 mg PO BID JOSEMANUEL Stop: 12/06/22 20:59 Last Admin: 11/10/22 08:53 Dose: 0.5 mg Bismuth Subsalicylate (Bismuth Subsalicylate Liqd 236 Ml) 15 ml PO PRN PRN PRN Reason: Loose Stool Stop: 12/06/22 16:32 Clonidine HCl (Clonidine Hcl 0.1 Mg Tab) 0.1 mg PO BID JOSEMANUEL Stop: 12/06/22 20:59 Last Admin: 11/10/22 08:53 Dose: 0.1 mg Fluoxetine HCl (Fluoxetine Hcl 20 Mg Cap) 40 mg PO QAM [facility] Stop: 12/08/22 08:59 Last Admin: 11/10/22 08:53 Dose: 40 mg Hydroxyzine HCl (Hydroxyzine Hcl 25 Mg Tab) 50 mg PO HSZ PRN PRN Reason: Insomnia Stop: 12/06/22 16:32 Hydroxyzine HCl (Hydroxyzine Hcl 25 Mg Tab) 25 mg PO Q4H PRN PRN Reason: Anxiety Stop: 12/06/22 16:32 Lorazepam (Lorazepam 0.5 Mg Tab) 0.5 mg PO BID JOSEMANUEL Stop: 12/06/22 20:59 Last Admin: 11/10/22 08:53 Dose: 0.5 mg Lorazepam (Lorazepam 0.5 Mg Tab) 0.5 mg PO BID PRN PRN Reason: Anxiety Stop: 12/07/22 15:51 Last Admin: 11/09/22 04:36 Dose: 0.5 mg Magnesium Hydroxide (Magnesium Hydroxide Susp 30 Ml Udc) 30 ml PO DAILY PRN PRN Reason: Constipation Stop: 12/06/22 16:32 Last Admin: 11/08/22 15:03 Dose: 30 ml Miscellaneous (Remove Nicoderm Patch) 1 each N/A DAILY@0859 [facility] Stop: 12/07/22 08:58 Last Admin: 11/10/22 08:54 Dose: 1 each Nicotine (Nicotine 21 Mg/24 Hr Tdsy) 21 mg TD QAM [facility] Stop: 12/06/22 16:44 Last Admin: 11/10/22 08:54 Dose: 21 mg Nicotine Polacrilex (Nicotine Polacrilex 2 Mg Gum) 2 piece MT PRN PRN PRN Reason: Nicotine Withdrawal Stop: 12/06/22 16:32 Ondansetron HCl (Ondansetron 4 Mg Od Tab) 4 mg PO BID PRN PRN Reason: Nausea Stop: 12/08/22 14:25 Last Admin: 11/08/22 14:59 Dose: 4 mg Paliperidone (Paliperidone 3 Mg Tabcr) 3 mg PO HS JOSEMANUEL Stop: 12/06/22 21:59 Last Admin: 11/09/22 21:00 Dose: 3 mg Paliperidone (Paliperidone 1.5 Mg Tabcr) 1.5 mg PO TID PRN PRN Reason: psychosis/paranoia Stop: 12/07/22 20:59 Last Admin: 11/07/22 17:02 Dose: 1.5 mg Polyethylene Glycol (Polyethylene (Miralax) 17 Gm Pack) 17 gm PO DAILY JOSEMANUEL Stop: 12/10/22 08:59 Last Admin: 11/10/22 09:49 Dose: 17 gm Senna/Docusate Sodium (Docusate Sodium/Senna 50/8.6mg Tab) 1 tab PO BID JOSEMANUEL Stop: 12/10/22 20:59 Sodium Chloride (Sodium Chloride 0.65% Na Soln 45 Ml ([place])) 1 - 2 sprays NA PRN PRN PRN Reason: Nasal Dryness/Congestion Stop: 12/06/22 16:32 Trazodone HCl (Trazodone Hcl 100 Mg Tab) 100 mg PO HS JOSEMANUEL Stop: 12/06/22 21:59 Last Admin: 11/09/22 21:00 Dose: 100 mg
[2022-11-10] MEDS: PALIPERIDONE 3 MG TABCR PO SCH (21:38)
[2022-11-10] MEDS: traZODone HCL 100 MG TAB PO SCH (21:39)
[2022-11-10] MEDS: DOCUSATE SODIUM/SENNA 50/8.6MG TAB PO SCH (21:39)
[2022-11-11] MEDS: cloNIDine HCL 0.1 MG TAB PO SCH ×2 (08:44→19:47)
[2022-11-11] MEDS: POLYETHYLENE (MIRALAX) 17 GM PACK PO SCH (08:44)
[2022-11-11] MEDS: FLUoxetine HCL 20 MG CAP PO SCH (08:44)
[2022-11-11] MEDS: NICOTINE 21 MG/24 HR TDSY TD SCH (08:44)
[2022-11-11] MEDS: BENZTROPINE MESYLATE 0.5 MG TAB PO SCH (08:44)
[2022-11-11] MEDS: DOCUSATE SODIUM/SENNA 50/8.6MG TAB PO SCH ×2 (08:45→19:47)
[2022-11-11] MEDS: LORazepam 0.5 MG TAB PO SCH ×2 (08:48→19:47)
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
[2022-11-11] MEDS: LORazepam 0.5 MG TAB PO PRN (16:37)
[2022-11-11] MEDS: OLANZapine 5 MG TABLET PO PRN (17:06)
[2022-11-11] MEDS ORDERED: LORazepam 1 MG TAB PO PRN (17:07)
[2022-11-11] MEDS ORDERED: LORazepam 1 MG TAB ONE (17:09)
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
[2022-11-11] MEDS: traZODone HCL 100 MG TAB PO SCH (19:47)
[2022-11-11] MEDS: MAGNESIUM HYDROXIDE SUSP 30 ML UDC PO PRN (19:48)
[2022-11-11] MEDS ORDERED: cloZAPine 25 MG TAB PO SCH (22:00)
[2022-11-12] MEDS: POLYETHYLENE (MIRALAX) 17 GM PACK PO SCH (09:16)
[2022-11-12] MEDS: DOCUSATE SODIUM/SENNA 50/8.6MG TAB PO SCH ×2 (09:16→21:08)
[2022-11-12] MEDS: cloNIDine HCL 0.1 MG TAB PO SCH ×2 (09:16→21:08)
[2022-11-12] MEDS: FLUoxetine HCL 20 MG CAP PO SCH (09:17)
[2022-11-12] MEDS: LORazepam 0.5 MG TAB PO SCH ×2 (09:17→21:10)
[2022-11-12] MEDS: NICOTINE 21 MG/24 HR TDSY TD SCH (09:22)
[2022-11-12 10:01] LABS: Basophils # (auto) 0.05 K/uL (0-0.2); Basophils % (auto) 0.8 %; Eosinophils # (auto) 0.12 K/uL (0-0.50); Hematocrit (blood only) 44.2 % (42.0-52.0); Hemoglobin 15.4 g/dl (14.0-18.0); Immature Granulocytes # (auto) 0.03 K/uL (0.01-0.20); Immature Granulocytes % (auto) 0.5 %; Lymphocytes # (auto) 1.58 K/uL (1.2-3.4); Lymphocytes % (auto) 26.1 %; Mean Corpuscular Hemoglobin 30.9 pg (25.0-34.0); Mean Corpuscular Hgb Conc 34.8 g/dL (32.0-36.0); Mean Corpuscular Volume 88.6 fL (80.0-100.0); Mean Platelet Volume 9.1 fL (9.4-12.4); Monocytes % (auto) 6.6 %; Neutrophils # (auto) 3.87 K/uL (1.40-6.50); Platelet Count 276 K/uL (130-400); RDW Coefficient of Variation 12.5 % (11.5-14.5); RDW Standard Deviation 40.8 fL (36.4-46.3); Red Blood Count 4.99 M/uL (4.70-6.10); White Blood Count 6.05 K/ul (4.8-10.8)
[2022-11-12] MEDS: OLANZapine 5 MG TABLET PO PRN ×2 (12:06→19:00)
[2022-11-12] MEDS: LORazepam 0.5 MG TAB PO PRN (12:07)
[2022-11-12] MEDS ORDERED: OLANZapine 10 MG/2.1 ML SDV IM PRN (12:59)
--- NOTE | 2022-11-12 13:00 | Psychiatric Progress Note ---
Date of Service November 12, 2022 Impression / Recommendations Impression Casey is a 52 year old with a history of schizophrenia who was admitted for worsening psychosis, delusions, self-guilt and increased SI with plans of cutting himself with history of serious past attempt via cutting his neck. Diagnostically consistent with unspecified psychosis-differential includes acute exacerbation of psychosis due to schizophrenia with increased auditory hallucinations leading to SI and delusions versus major depression episode with psychotic features leading to self-guilt, SI and worsening psychosis. UDS was negative for cannabis so suspect he has been vaping nicotine products which makes substance-induced component much less likely. He is deemed in need of psychiatric hospitalization for diagnostic clarification, safety and stabilization, medication management and development of further coping skills. Conversion to 302 commitment following seclusion event on 11/11/2022 which expires on 11/16/2022 at 1819. MNPR due to acute psychosis and delusions 11/12/2022: Ongoing psychosis with increased agitation from suspected ongoing delusions and overwhelmed by auditory hallucinations yesterday evening with aggressive and disorganized behavior requiring seclusion and conversion to 302 commitment. Tolerated initial dose of clozapine, given his level of distress from internal stimuli and delusions and no side effects will continue with more rapid titration. ANC done again today and reviewed and normal. I completed 303 commitment paperwork given that 302 will on holiday so 303 hearing must occur tomorrow. (1) Suicidal ideation: (2) Schizophrenia: (3) Depression: (4) Psychotic disorder: Plan 11/12/2022: Increase clozapine to 75mg HS. ANC reviewed and stable, ANC will be rechecked again on 11/19/2022. 303 hearing scheduled for tomorrow. Olanzapine 5mg BID po and ativan 1mg daily prn added for agitation. Olanzapine 10mg IM prn added in case of acute behavioral event. 11/11/2022: Discontinue Invega. Start clozapine 25mg HS. Weekly ANC. 11/10/2022: Scheduled senna s and miralax to help with constipation. Will enroll in clozapine REMS with plan to start clozapine tomorrow. 11/09/2022: Continue current medication and tx plan. If Casey agrees will likely not proceed with Invega HAYES tomorrow and instead will begin clozapine trial. 11/08/2022: Continue current medications and tx plan. Additional prn Invega and ativan added. Hold off on next Invega HAYES until make decision about continuing with Invega versus clozapine trial. 11/07/2022: The patient was admitted to the [facility] ([facility] inpatient mental health unit) on q15 min checks (behavioral with suicide precautions) for safety. The patient will participate in group, recreational, and milieu therapies and will be offered additional individual and family sessions as clinically appropriate. -Continue prior to admission clonidine, trazodone -lorazepam 0.5mg BID -hold Capltya as not on hospital formulary and seemingly not providing enough benefit and in effort to reduce polypharmacy of dual antipsychotic use -increase fluoxetine to 40mg daily to target depression and SI -Plan for Invega Sustenna 234mg HAYES on and supplement with oral dose paliperidone 3mg HS po -Repeat labs on 11/09/2022 for CMP to ensure sodium remains stable, fasting glucose and fasting lipid panel Inventory Assets Strengths: willing for treatment, supportive living home, has been stable for extended periods in the past Needs: safety and stabilization, medication adjustment, additional coping skills, increased outpatient services Suicide Risk Level Suicide Risk Level: High-Moderate (q15 min suicide checks) (psychosis with previous command AH (none currently), severe depression with SI with plan prior to admission and ongoing delusions but feels safe in the hospital, able to safety contract and agrees to let nursing/staff know should they develop plan, intent or feel unable to remain safe) Risk Factors Assessment Male: Yes : Yes Do You Have Access To A Gun?: No Health Problems: No Mental Health Diagnoses: Yes Substance Use Disorders: No Previous Attempt: Yes Family History of Suicide: No Previous Psychiatric Hospitalization: Yes Protective Factors Assessment : No Employed: No Stable Relationships: Yes Good Rapport with Provider: Yes Interval History Identifying Information CASEY DAMIAN is a 52-year-old man who currently lives in supportive psychiatric intermediate in [place], has a history of schizophrenia, and was admitted on 11/06/22 16:27 on a 201 voluntary commitment for worsening psychosis and SI with plan to cut himself. Chief Complaint "I'm ok". Review of Systems Sleep Information Total Hours of Sleep: 8.5 Sleep Comments: Received Ativan for anxiety Meal Information Percent Meal Consumed - Breakfast: 100 Percent Meal Consumed - Lunch: 0 Percent Meal Consumed - Dinner: 0 Subjective Subjective Patient was seen & assessed and interval progress reviewed with treatment team nursing and social work. Last evening abruptly took his clothes off and became more fixated on delusions, made statements of SI, pounded on the glass of the nursing station and postured aggressively toward RNs and security resulting in seclusion event and conversion to 302 commitment. He required prn olanzapine and ativan. He took clozapine last night and allowed blood work this morning. Today still bothered by internal stimuli and requested prn medication for increased anxiety, seemingly related to delusions and suspected voices. Less intense SI today. No side effects from clozapine initiation. Physical Exam Vital Signs (Past 24 Hours) Last Vital Signs Temp 37.0 C 11/12/22 06:00 Pulse 84 11/12/22 06:54 Resp 16 11/11/22 06:40 BP 131/85 11/11/22 19:48 Pulse Ox 99 11/06/22 16:43 O2 Del Method Room Air 11/06/22 16:43 Results & Data ([facility]) Laboratory Results Laboratory Results - last 24 hr 11/12/22 09:33 WBC 6.05 RBC 4.99 Hgb 15.4 Hct 44.2 MCV 88.6 MCH 30.9 MCHC 34.8 RDW Std Deviation 40.8 RDW Coeff of Mars 12.5 Plt Count 276 MPV 9.1 L Immature Gran % (Auto) 0.5 Neut % (Auto) 64.0 Lymph % (Auto) 26.1 Bates % (Auto) 6.6 Eos % (Auto) 2.0 Baso % (Auto) 0.8 Neut # (Auto) 3.87 Lymph # (Auto) 1.58 Bates # (Auto) 0.40 Eos # (Auto) 0.12 Baso # (Auto) 0.05 Immature Gran # (Auto) 0.03 Current Inpatient Medications Current Inpatient Medications: Current Inpatient Medications Acetaminophen (Acetaminophen 325 Mg Tab) 650 mg PO Q4H PRN PRN Reason: Headache or Minor Fever Stop: 12/06/22 16:32 Al Hydrox/Mg Hydrox/Simethicone (Aluminum/Magnesium Susp 30 Ml Udc) 30 ml PO Q4H PRN PRN Reason: GI Upset Stop: 12/06/22 16:32 Bismuth Subsalicylate (Bismuth Subsalicylate Liqd 236 Ml) 15 ml PO PRN PRN PRN Reason: Loose Stool Stop: 12/06/22 16:32 Clonidine HCl (Clonidine Hcl 0.1 Mg Tab) 0.1 mg PO BID [facility] Stop: 12/06/22 20:59 Last Admin: 11/12/22 09:16 Dose: 0.1 mg Clozapine (Clozapine 25 Mg Tab) 25 mg PO HS JOSEMANUEL; Protocol Stop: 12/11/22 21:59 Last Admin: 11/11/22 19:47 Dose: 25 mg Fluoxetine HCl (Fluoxetine Hcl 20 Mg Cap) 40 mg PO QAM JOSEMANUEL Stop: 12/08/22 08:59 Last Admin: 11/12/22 09:17 Dose: 40 mg Hydroxyzine HCl (Hydroxyzine Hcl 25 Mg Tab) 50 mg PO HSZ PRN PRN Reason: Insomnia Stop: 12/06/22 16:32 Hydroxyzine HCl (Hydroxyzine Hcl 25 Mg Tab) 25 mg PO Q4H PRN PRN Reason: Anxiety Stop: 12/06/22 16:32 Last Admin: 11/11/22 16:37 Dose: 25 mg Lorazepam (Lorazepam 0.5 Mg Tab) 0.5 mg PO BID [facility] Stop: 12/06/22 20:59 Last Admin: 11/12/22 09:17 Dose: 0.5 mg Lorazepam (Lorazepam 0.5 Mg Tab) 0.5 mg PO BID PRN PRN Reason: Anxiety Stop: 12/07/22 15:51 Last Admin: 11/12/22 12:07 Dose: 0.5 mg Lorazepam (Lorazepam 1 Mg Tab) 1 mg PO DAILY PRN PRN Reason: agitation Stop: 12/11/22 17:06 Magnesium Hydroxide (Magnesium Hydroxide Susp 30 Ml Udc) 30 ml PO DAILY PRN PRN Reason: Constipation Stop: 12/06/22 16:32 Last Admin: 11/11/22 19:48 Dose: 30 ml Miscellaneous (Remove Nicoderm Patch) 1 each N/A DAILY@0859 [facility] Stop: 12/07/22 08:58 Last Admin: 11/12/22 09:22 Dose: 1 each Nicotine (Nicotine 21 Mg/24 Hr Tdsy) 21 mg TD QAM [facility] Stop: 12/06/22 16:44 Last Admin: 11/12/22 09:22 Dose: 21 mg Nicotine Polacrilex (Nicotine Polacrilex 2 Mg Gum) 2 piece MT PRN PRN PRN Reason: Nicotine Withdrawal Stop: 12/06/22 16:32 Olanzapine (Olanzapine 5 Mg Tablet) 5 mg PO BID PRN PRN Reason: Agitation Stop: 12/11/22 20:59 Last Admin: 11/12/22 12:06 Dose: 5 mg Ondansetron HCl (Ondansetron 4 Mg Od Tab) 4 mg PO BID PRN PRN Reason: Nausea Stop: 12/08/22 14:25 Last Admin: 11/08/22 14:59 Dose: 4 mg Polyethylene Glycol (Polyethylene (Miralax) 17 Gm Pack) 17 gm PO DAILY JOSEMANUEL Stop: 12/10/22 08:59 Last Admin: 11/12/22 09:16 Dose: 17 gm Senna/Docusate Sodium (Docusate Sodium/Senna 50/8.6mg Tab) 1 tab PO BID JOSEMANUEL Stop: 12/10/22 20:59 Last Admin: 11/12/22 09:16 Dose: 1 tab Sodium Chloride (Sodium Chloride 0.65% Na Soln 45 Ml ([place])) 1 - 2 sprays NA PRN PRN PRN Reason: Nasal Dryness/Congestion Stop: 12/06/22 16:32 Trazodone HCl (Trazodone Hcl 100 Mg Tab) 100 mg PO HS JOSEMANUEL Stop: 12/06/22 21:59 Last Admin: 11/11/22 19:47 Dose: 100 mg
[2022-11-12] MEDS ORDERED: LORazepam 0.5 MG TAB PO PRN (16:02)
[2022-11-12] MEDS: traZODone HCL 100 MG TAB PO SCH (21:06)
[2022-11-12] MEDS ORDERED: cloZAPine 25 MG TAB PO SCH (22:00)
[2022-11-13] MEDS: LORazepam 0.5 MG TAB PO SCH (08:55)
[2022-11-13] MEDS: cloNIDine HCL 0.1 MG TAB PO SCH ×2 (08:55→21:15)
[2022-11-13] MEDS: NICOTINE 21 MG/24 HR TDSY TD SCH (08:55)
[2022-11-13] MEDS: POLYETHYLENE (MIRALAX) 17 GM PACK PO SCH (08:55)
[2022-11-13] MEDS: DOCUSATE SODIUM/SENNA 50/8.6MG TAB PO SCH ×2 (08:55→21:15)
[2022-11-13] MEDS ORDERED: chlorproMAZINE HCL 25 MG TAB PO STA (12:37)
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
[2022-11-13] MEDS ORDERED: LORazepam 1 MG TAB PO PRN ×2 (13:12→14:14)
[2022-11-13] MEDS ORDERED: chlorproMAZINE HCL 10 MG TAB PO PRN (14:12)
[2022-11-13] MEDS: LORazepam 1 MG TAB PO SCH (16:53)
[2022-11-13] MEDS: traZODone HCL 100 MG TAB PO SCH (21:15)
[2022-11-13] MEDS: cloZAPine 100 MG TAB PO SCH (21:15)
[2022-11-14] MEDS: cloZAPine 25 MG TAB PO SCH (07:57)
[2022-11-14] MEDS: NICOTINE 21 MG/24 HR TDSY TD SCH (07:57)
[2022-11-14] MEDS: DOCUSATE SODIUM/SENNA 50/8.6MG TAB PO SCH ×2 (07:57→20:38)
[2022-11-14] MEDS: cloNIDine HCL 0.1 MG TAB PO SCH ×2 (07:57→20:38)
[2022-11-14] MEDS: POLYETHYLENE (MIRALAX) 17 GM PACK PO SCH (07:58)
[2022-11-14] MEDS: LORazepam 1 MG TAB PO SCH ×2 (07:59→17:17)
--- NOTE | 2022-11-14 12:24 | Psychiatric Progress Note ---
Date of Service November 14, 2022 Impression / Recommendations Impression Reviewed care by Dr. Smith in italics. Casey is a 52 year old with a history of schizophrenia who was admitted for worsening psychosis, delusions, self-guilt and increased SI with plans of cutting himself with history of serious past attempt via cutting his neck. Diagnostically consistent with unspecified psychosis-differential includes acute exacerbation of psychosis due to schizophrenia with increased auditory hallucinations leading to SI and delusions versus major depression episode with psychotic features leading to self-guilt, SI and worsening psychosis. UDS was negative for cannabis so suspect he has been vaping nicotine products which makes substance-induced component much less likely. He is deemed in need of psychiatric hospitalization for diagnostic clarification, safety and stabili zation, medication management and development of further coping skills. Conversion to 302 commitment following seclusion event on 11/11/2022 which expires on 11/16/2022 at 1819. MNPR due to acute psychosis and delusions 11/12/2022: Ongoing psychosis with increased agitation from suspected ongoing delusions and overwhelmed by auditory hallucinations yesterday evening with aggressive and disorganized behavior requiring seclusion and conversion to 302 commitment. Tolerated initial dose of clozapine, given his level of distress from internal stimuli and delusions and no side effects will continue with more rapid titration. ANC done again today and reviewed and normal. I completed 303 commitment paperwork given that 302 will on federal holiday so 303 hearing must occur tomorrow. 11/14/2022: slow improvement, tolerating medication changes (1) Schizophrenia: (2) Depression: Plan 11/14/2022: continue clozapine trial. Clozaril was increased this am to 125 mg total daily dose. 11/13/2022: Increase clozapine to 100 mg hs, add am dose 25 mg starting tomorrow to further trial. Will hold Prozac for now to limit polypharmacy and risk of activation. d/c hydroxyzine prns as others likely more effective (lorazepam) and to minimize QTc issues. Patient is aware that thorazine can cause low bp in combo with other antipsychotics but will receive 25 mg now. Participated in 303 hearing which was granted. 11/12/2022: Increase clozapine to 75mg HS. ANC reviewed and stable, ANC will be rechecked again on 11/19/2022. 303 hearing scheduled for tomorrow. Olanzapine 5mg BID po and ativan 1mg daily prn added for agitation. Olanzapine 10mg IM prn added in case of acute behavioral event. 11/11/2022: Discontinue Invega. Start clozapine 25mg HS. Weekly ANC. 11/10/2022: Scheduled senna s and miralax to help with constipation. Will enroll in clozapine REMS with plan to start clozapine tomorrow. 11/09/2022: Continue current medication and tx plan. If Casey agrees will likely not proceed with Invega HAYES tomorrow and instead will begin clozapine trial. 11/08/2022: Continue current medications and tx plan. Additional prn Invega and ativan added. Hold off on next Invega HAYES until make decision about continuing with Invega versus clozapine trial. 11/07/2022: The patient was admitted to the [facility] ([facility] unit) on q15 min checks (behavioral with suicide precautions) for safety. The patient will participate in group, recreational, and milieu therapies and will be offered additional individual and family sessions as clinically appropriate. -Continue prior to admission clonidine, trazodone -lorazepam 0.5mg BID -hold Capltya as not on hospital formulary and seemingly not providing enough benefit and in effort to reduce polypharmacy of dual antipsychotic use -increase fluoxetine to 40mg daily to target depression and SI -Plan for Invega Sustenna 234mg HAYES on and supplement with oral dose paliperidone 3mg HS po -Repeat labs on 11/09/2022 for CMP to ensure sodium remains stable, fasting glucose and fasting lipid panel Inventory Assets Strengths: willing for treatment, supportive living home, has been stable for extended periods in the past Needs: safety and stabilization, medication adjustment, additional coping skills, increased outpatient services Suicide Risk Level Suicide Risk Level: High-Moderate (q15 min suicide checks) (psychosis with previous command AH (none currently), severe depression with SI with plan prior to admission and ongoing delusions but feels safe in the hospital, able to safety contract and agrees to let nursing/staff know should they develop plan, intent or feel unable to remain safe) Risk Factors Assessment Male: Yes : Yes Do You Have Access To A Gun?: No Health Problems: No Mental Health Diagnoses: Yes Substance Use Disorders: No Previous Attempt: Yes Family History of Suicide: No Previous Psychiatric Hospitalization: Yes Protective Factors Assessment : No Employed: No Stable Relationships: Yes Good Rapport with Provider: Yes Interval History Identifying Information CASEY DAMIAN is a 52-year-old man who currently lives in supportive psychiatric fci in [place], has a history of schizophrenia, and was admitted on 11/06/22 16:27 on a 201 voluntary commitment for worsening psychosis and SI with plan to cut himself. Placed on 302 on 11/11/22, on 303 as of 11/13/22. Chief Complaint "I'm sorry for what I did." Review of Systems Sleep Information Total Hours of Sleep: 7 Sleep Comments: [facility] Meal Information Percent Meal Consumed - Breakfast: 0 Percent Meal Consumed - Lunch: 25 Percent Meal Consumed - Dinner: 25 Nutrition Comment: Pt only drank his coffee Subjective Subjective Patient was seen & assessed and interval progress reviewed with nursing and social work. He was calmer but still reclusive on evenings. Today he did request prn thorazine in am. He completed his menu and requested breakfast late but ate in dayroom by self. He reports feeling calmer. Less distressed with direct questioning. Physical Exam Psychiatric Orientation: alert and oriented x 3 Apperance: appropriately dressed and appropriately groomed Eye Contact: + fair eye contact Motor Behavior: no abnormal motor movements Speech: + abnormal rate/rhythm/volume of speech (soft, slightly latent) Affect: + depressed affect Mood: + depressed mood and + anxious mood Thought Process: + perseveration Thought Content: + delusions and + guilt Suicidal Thoughts: denies suicidal thoughts Homicidal Thoughts: denies homicidal thoughts Hallucinations: no auditory hallucinations and no visual hallucinations Cognition: attention grossly intact and language grossly intact Estimated Intelligence: consistent with education level Insight: + limited insight Judgment: + limited judgement Vital Signs (Past 24 Hours) Last Vital Signs Temp 36.3 C L 11/14/22 06:00 Pulse 87 11/14/22 06:00 Resp 18 11/14/22 06:00 BP 146/79 H 11/14/22 06:33 Pulse Ox 100 11/14/22 06:00 O2 Del Method Room Air 11/14/22 06:00 Results & Data ([facility]) Current Inpatient Medications Current Inpatient Medications: Current Inpatient Medications Acetaminophen (Acetaminophen 325 Mg Tab) 650 mg PO Q4H PRN PRN Reason: Headache or Minor Fever Stop: 12/06/22 16:32 Al Hydrox/Mg Hydrox/Simethicone (Aluminum/Magnesium Susp 30 Ml Udc) 30 ml PO Q4H PRN PRN Reason: GI Upset Stop: 12/06/22 16:32 Bismuth Subsalicylate (Bismuth Subsalicylate Liqd 236 Ml) 15 ml PO PRN PRN PRN Reason: Loose Stool Stop: 12/06/22 16:32 Chlorpromazine HCl (Chlorpromazine Hcl 10 Mg Tab) 10 mg PO Q6 PRN PRN Reason: Anxiety/Agitation Stop: 12/13/22 14:11 Last Admin: 11/14/22 08:04 Dose: 10 mg Clonidine HCl (Clonidine Hcl 0.1 Mg Tab) 0.1 mg PO BID [facility] Stop: 12/06/22 20:59 Last Admin: 11/14/22 07:57 Dose: 0.1 mg Clozapine (Clozapine 100 Mg Tab) 100 mg PO HS [facility]; Protocol Stop: 12/13/22 21:59 Last Admin: 11/13/22 21:15 Dose: 100 mg Clozapine (Clozapine 25 Mg Tab) 25 mg PO QAM [facility] Stop: 12/14/22 08:59 Last Admin: 11/14/22 07:57 Dose: 25 mg Lorazepam (Lorazepam 1 Mg Tab) 1 mg PO BID17 [facility] Stop: 12/13/22 16:59 Last Admin: 11/14/22 07:59 Dose: 1 mg Lorazepam (Lorazepam 1 Mg Tab) 1 mg PO Q6 PRN PRN Reason: Anxiety Stop: 12/11/22 17:06 Magnesium Hydroxide (Magnesium Hydroxide Susp 30 Ml Udc) 30 ml PO DAILY PRN PRN Reason: Constipation Stop: 12/06/22 16:32 Last Admin: 11/11/22 19:48 Dose: 30 ml Miscellaneous (Remove Nicoderm Patch) 1 each N/A DAILY@0859 [facility] Stop: 12/07/22 08:58 Last Admin: 11/14/22 09:29 Dose: 1 each Nicotine (Nicotine 21 Mg/24 Hr Tdsy) 21 mg TD QAM [facility] Stop: 12/06/22 16:44 Last Admin: 11/14/22 07:57 Dose: 21 mg Nicotine Polacrilex (Nicotine Polacrilex 2 Mg Gum) 2 piece MT PRN PRN PRN Reason: Nicotine Withdrawal Stop: 12/06/22 16:32 Olanzapine (Olanzapine 10 Mg/2.1 Ml Sdv) 10 mg IM DAILY PRN PRN Reason: Agitation f refuses po medicat Stop: 12/13/22 08:59 Ondansetron HCl (Ondansetron 4 Mg Od Tab) 4 mg PO BID PRN PRN Reason: Nausea Stop: 12/08/22 14:25 Last Admin: 11/08/22 14:59 Dose: 4 mg Polyethylene Glycol (Polyethylene (Miralax) 17 Gm Pack) 17 gm PO DAILY [facility] Stop: 12/10/22 08:59 Last Admin: 11/14/22 07:58 Dose: 17 gm Senna/Docusate Sodium (Docusate Sodium/Senna 50/8.6mg Tab) 1 tab PO BID [facility] Stop: 12/10/22 20:59 Last Admin: 11/14/22 07:57 Dose: 1 tab Sodium Chloride (Sodium Chloride 0.65% Na Soln 45 Ml ([place])) 1 - 2 sprays NA PRN PRN PRN Reason: Nasal Dryness/Congestion Stop: 12/06/22 16:32 Trazodone HCl (Trazodone Hcl 100 Mg Tab) 100 mg PO HS [facility] Stop: 12/06/22 21:59 Last Admin: 11/13/22 21:15 Dose: 100 mg
[2022-11-14] MEDS: cloZAPine 100 MG TAB PO SCH (20:38)
[2022-11-14] MEDS: traZODone HCL 100 MG TAB PO SCH (20:39)
[2022-11-15] MEDS: NICOTINE 21 MG/24 HR TDSY TD SCH (09:21)
[2022-11-15] MEDS: cloNIDine HCL 0.1 MG TAB PO SCH ×2 (09:22→21:05)
[2022-11-15] MEDS: LORazepam 1 MG TAB PO SCH ×2 (09:22→17:14)
[2022-11-15] MEDS: POLYETHYLENE (MIRALAX) 17 GM PACK PO SCH (09:22)
[2022-11-15] MEDS: DOCUSATE SODIUM/SENNA 50/8.6MG TAB PO SCH ×2 (09:22→21:05)
[2022-11-15] MEDS: cloZAPine 25 MG TAB PO SCH (09:22)
--- NOTE | 2022-11-15 12:23 | Psychiatric Progress Note ---
Date of Service November 15, 2022 Impression / Recommendations Impression Reviewed care by Dr. Smith in italics. Casey is a 52 year old with a history of schizophrenia who was admitted for worsening psychosis, delusions, self-guilt and increased SI with plans of cutting himself with history of serious past attempt via cutting his neck. Diagnostically consistent with unspecified psychosis-differential includes acute exacerbation of psychosis due to schizophrenia with increased auditory hallucinations leading to SI and delusions versus major depression episode with psychotic features leading to self-guilt, SI and worsening psychosis. UDS was negative for cannabis so suspect he has been vaping nicotine products which makes substance-induced component much less likely. He is deemed in need of psychiatric hospitalization for diagnostic clarification, safety and stabili zation, medication management and development of further coping skills. Conversion to 302 commitment following seclusion event on 11/11/2022 which expires on 11/16/2022 at 1819. MNPR due to acute psychosis and delusions 11/15/2022: denies sedation, no hypotension, significant decrease in delusions (1) Schizophrenia: (2) Depression: Plan 11/15/2022: Clozaril titration to 50 mg am and 100 mg po qhs. 11/14/2022: continue clozapine trial. Clozaril was increased this am to 125 mg total daily dose. 11/13/2022: Increase clozapine to 100 mg hs, add am dose 25 mg starting tomorrow to further trial. Will hold Prozac for now to limit polypharmacy and risk of activation. d/c hydroxyzine prns as others likely more effective (lorazepam) and to minimize QTc issues. Patient is aware that thorazine can cause low bp in combo with other antipsychotics but will receive 25 mg now. Participated in 303 hearing which was granted. 11/12/2022: Increase clozapine to 75mg HS. ANC reviewed and stable, ANC will be rechecked again on 11/19/2022. 303 hearing scheduled for tomorrow. Olanzapine 5mg BID po and ativan 1mg daily prn added for agitation. Olanzapine 10mg IM prn added in case of acute behavioral event. 11/11/2022: Discontinue Invega. Start clozapine 25mg HS. Weekly ANC. 11/10/2022: Scheduled senna s and miralax to help with constipation. Will enroll in clozapine REMS with plan to start clozapine tomorrow. 11/09/2022: Continue current medication and tx plan. If Casey agrees will likely not proceed with Invega HAYES tomorrow and instead will begin clozapine trial. 11/08/2022: Continue current medications and tx plan. Additional prn Invega and ativan added. Hold off on next Invega HAYES until make decision about continuing with Invega versus clozapine trial. 11/07/2022: The patient was admitted to the [facility] ([facility]) on q15 min checks (behavioral with suicide precautions) for safety. The patient will participate in group, recreational, and milieu therapies and will be offered additional individual and family sessions as clinically appropriate. -Continue prior to admission clonidine, trazodone -lorazepam 0.5mg BID -hold Capltya as not on hospital formulary and seemingly not providing enough benefit and in effort to reduce polypharmacy of dual antipsychotic use -increase fluoxetine to 40mg daily to target depression and SI -Plan for Invega Sustenna 234mg HAYES on and supplement with oral dose paliperidone 3mg HS po -Repeat labs on 11/09/2022 for CMP to ensure sodium remains stable, fasting glucose and fasting lipid panel Inventory Assets Strengths: willing for treatment, supportive living home, has been stable for extended periods in the past Needs: safety and stabilization, medication adjustment, additional coping skills, increased outpatient services Suicide Risk Level Suicide Risk Level: Moderate (q15 min suicide checks) Risk Factors Assessment Male: Yes : Yes Do You Have Access To A Gun?: No Health Problems: No Mental Health Diagnoses: Yes Substance Use Disorders: No Previous Attempt: Yes Family History of Suicide: No Previous Psychiatric Hospitalization: Yes Protective Factors Assessment : No Employed: No Stable Relationships: Yes Good Rapport with Provider: Yes Interval History Identifying Information CASEY DAMIAN is a 52-year-old man who currently lives in supportive psychiatric long term in [place], has a history of schizophrenia, and was admitted on 11/06/22 16:27 on a 201 voluntary commitment for worsening psychosis and SI with plan to cut himself. Placed on 302 on 11/11/22, on 303 as of 11/13/22. Chief Complaint "no I'm good. thanks" Review of Systems Sleep Information Total Hours of Sleep: 8 Sleep Comments: Received Ativan for anxiety Meal Information Percent Meal Consumed - Breakfast: 0 Percent Meal Consumed - Lunch: 75 Percent Meal Consumed - Dinner: 50 Nutrition Comment: Pt only drank his coffee Subjective Subjective Patient was seen & assessed and interval progress reviewed with nursing and social work. Patient has been eating meals in the presence of peers. Staying in room but more pleasant on approach. He denies fall. He still apologizes but more for his behavior here vs. raping anyone. Physical Exam Psychiatric Orientation: alert Apperance: appropriately dressed and appropriately groomed Eye Contact: + fair eye contact Motor Behavior: no abnormal motor movements Speech: + abnormal rate/rhythm/volume of speech (non spontaneous) Affect: + blunted affect Mood: no depressed mood Thought Process: + concrete thought process Thought Content: + preoccupation (no longer outwardly expressing delusions) Suicidal Thoughts: denies suicidal thoughts Homicidal Thoughts: denies homicidal thoughts Hallucinations: no auditory hallucinations and no visual hallucinations Cognition: attention grossly intact and language grossly intact Insight: + limited insight Judgment: + limited judgement Vital Signs (Past 24 Hours) Last Vital Signs Temp 36.9 C 11/15/22 06:00 Pulse 105 H 11/15/22 06:00 Resp 18 11/15/22 06:00 BP 155/96 H 11/15/22 06:42 Pulse Ox 100 11/15/22 06:00 O2 Del Method Room Air 11/15/22 06:00 Results & Data ([facility]) Current Inpatient Medications Current Inpatient Medications: Current Inpatient Medications Acetaminophen (Acetaminophen 325 Mg Tab) 650 mg PO Q4H PRN PRN Reason: Headache or Minor Fever Stop: 12/06/22 16:32 Al Hydrox/Mg Hydrox/Simethicone (Aluminum/Magnesium Susp 30 Ml Udc) 30 ml PO Q4H PRN PRN Reason: GI Upset Stop: 12/06/22 16:32 Bismuth Subsalicylate (Bismuth Subsalicylate Liqd 236 Ml) 15 ml PO PRN PRN PRN Reason: Loose Stool Stop: 12/06/22 16:32 Chlorpromazine HCl (Chlorpromazine Hcl 10 Mg Tab) 10 mg PO Q6 PRN PRN Reason: Anxiety/Agitation Stop: 12/13/22 14:11 Last Admin: 11/14/22 08:04 Dose: 10 mg Clonidine HCl (Clonidine Hcl 0.1 Mg Tab) 0.1 mg PO BID [facility] Stop: 12/06/22 20:59 Last Admin: 11/15/22 09:22 Dose: 0.1 mg Clozapine (Clozapine 100 Mg Tab) 100 mg PO HS [facility]; Protocol Stop: 12/13/22 21:59 Last Admin: 11/14/22 20:38 Dose: 100 mg Clozapine (Clozapine 25 Mg Tab) 25 mg PO QAM [facility] Stop: 12/14/22 08:59 Last Admin: 11/15/22 09:22 Dose: 25 mg Lorazepam (Lorazepam 1 Mg Tab) 1 mg PO BID17 [facility] Stop: 12/13/22 16:59 Last Admin: 11/15/22 09:22 Dose: 1 mg Lorazepam (Lorazepam 1 Mg Tab) 1 mg PO Q6 PRN PRN Reason: Anxiety Stop: 12/11/22 17:06 Magnesium Hydroxide (Magnesium Hydroxide Susp 30 Ml Udc) 30 ml PO DAILY PRN PRN Reason: Constipation Stop: 12/06/22 16:32 Last Admin: 11/11/22 19:48 Dose: 30 ml Miscellaneous (Remove Nicoderm Patch) 1 each N/A DAILY@0859 [facility] Stop: 12/07/22 08:58 Last Admin: 11/15/22 09:21 Dose: 1 each Nicotine (Nicotine 21 Mg/24 Hr Tdsy) 21 mg TD QAM [facility] Stop: 12/06/22 16:44 Last Admin: 11/15/22 09:21 Dose: 21 mg Nicotine Polacrilex (Nicotine Polacrilex 2 Mg Gum) 2 piece MT PRN PRN PRN Reason: Nicotine Withdrawal Stop: 12/06/22 16:32 Olanzapine (Olanzapine 10 Mg/2.1 Ml Sdv) 10 mg IM DAILY PRN PRN Reason: Agitation f refuses po medicat Stop: 12/13/22 08:59 Ondansetron HCl (Ondansetron 4 Mg Od Tab) 4 mg PO BID PRN PRN Reason: Nausea Stop: 12/08/22 14:25 Last Admin: 11/08/22 14:59 Dose: 4 mg Polyethylene Glycol (Polyethylene (Miralax) 17 Gm Pack) 17 gm PO DAILY [facility] Stop: 12/10/22 08:59 Last Admin: 11/15/22 09:22 Dose: 17 gm Senna/Docusate Sodium (Docusate Sodium/Senna 50/8.6mg Tab) 1 tab PO BID [facility] Stop: 12/10/22 20:59 Last Admin: 11/15/22 09:22 Dose: 1 tab Sodium Chloride (Sodium Chloride 0.65% Na Soln 45 Ml ([place])) 1 - 2 sprays NA PRN PRN PRN Reason: Nasal Dryness/Congestion Stop: 12/06/22 16:32 Trazodone HCl (Trazodone Hcl 100 Mg Tab) 100 mg PO [facility] Stop: 12/06/22 21:59 Last Admin: 11/14/22 20:39 Dose: 100 mg
[2022-11-15] MEDS: traZODone HCL 100 MG TAB PO SCH (21:04)
[2022-11-15] MEDS: cloZAPine 100 MG TAB PO SCH (21:05)
[2022-11-16] MEDS ORDERED: cloZAPine 25 MG TAB PO SCH (09:00)
[2022-11-16] MEDS: cloNIDine HCL 0.1 MG TAB PO SCH ×2 (09:02→21:00)
[2022-11-16] MEDS: DOCUSATE SODIUM/SENNA 50/8.6MG TAB PO SCH ×2 (09:03→21:00)
[2022-11-16] MEDS: LORazepam 1 MG TAB PO SCH ×2 (09:03→16:58)
[2022-11-16] MEDS: NICOTINE 21 MG/24 HR TDSY TD SCH (09:03)
[2022-11-16] MEDS: POLYETHYLENE (MIRALAX) 17 GM PACK PO SCH (09:04)
--- NOTE | 2022-11-16 11:08 | Psychiatric Progress Note ---
Date of Service November 16, 2022 Impression / Recommendations Impression Reviewed care by Dr. Smith in italics. Casey is a 52 year old with a history of schizophrenia who was admitted for worsening psychosis, delusions, self-guilt and increased SI with plans of cutting himself with history of serious past attempt via cutting his neck. Diagnostically consistent with unspecified psychosis-differential includes acute exacerbation of psychosis due to schizophrenia with increased auditory hallucinations leading to SI and delusions versus major depression episode with psychotic features leading to self-guilt, SI and worsening psychosis. UDS was negative for cannabis so suspect he has been vaping nicotine products which makes substance-induced component much less likely. He is deemed in need of psychiatric hospitalization for diagnostic clarification, safety and stabili zation, medication management and development of further coping skills. Conversion to 302 commitment following seclusion event on 11/11/2022 which expires on 11/16/2022 at 1819. MNPR due to acute psychosis and delusions 11/16/2022: slow improvement but wax/wanes. Less amenable to 1 on 1 this am. (1) Schizophrenia: (2) Depression: Plan 11/15/2022: Clozaril titration to 50 mg am and 100 mg po qhs. 11/14/2022: continue clozapine trial. Clozaril was increased this am to 125 mg total daily dose. 11/13/2022: Increase clozapine to 100 mg hs, add am dose 25 mg starting tomorrow to further trial. Will hold Prozac for now to limit polypharmacy and risk of activation. d/c hydroxyzine prns as others likely more effective (lorazepam) and to minimize QTc issues. Patient is aware that thorazine can cause low bp in combo with other antipsychotics but will receive 25 mg now. Participated in 303 hearing which was granted. 11/12/2022: Increase clozapine to 75mg HS. ANC reviewed and stable, ANC will be rechecked again on 11/19/2022. 303 hearing scheduled for tomorrow. Olanzapine 5mg BID po and ativan 1mg daily prn added for agitation. Olanzapine 10mg IM prn added in case of acute behavioral event. 11/11/2022: Discontinue Invega. Start clozapine 25mg HS. Weekly ANC. 11/10/2022: Scheduled senna s and miralax to help with constipation. Will enroll in clozapine REMS with plan to start clozapine tomorrow. 11/09/2022: Continue current medication and tx plan. If Casey agrees will likely not proceed with Invega HAYES tomorrow and instead will begin clozapine trial. 11/08/2022: Continue current medications and tx plan. Additional prn Invega and ativan added. Hold off on next Invega HAYES until make decision about continuing with Invega versus clozapine trial. 11/07/2022: The patient was admitted to the [facility] ([facility] unit) on q15 min checks (behavioral with suicide precautions) for safety. The patient will participate in group, recreational, and milieu therapies and will be offered additional individual and family sessions as clinically appropriate. -Continue prior to admission clonidine, trazodone -lorazepam 0.5mg BID -hold Capltya as not on hospital formulary and seemingly not providing enough benefit and in effort to reduce polypharmacy of dual antipsychotic use -increase fluoxetine to 40mg daily to target depression and SI -Plan for Invega Sustenna 234mg HAYES on and supplement with oral dose paliperidone 3mg HS po -Repeat labs on 11/09/2022 for CMP to ensure sodium remains stable, fasting glucose and fasting lipid panel Inventory Assets Strengths: willing for treatment, supportive living home, has been stable for extended periods in the past Needs: safety and stabilization, medication adjustment, additional coping skills, increased outpatient services Suicide Risk Level Suicide Risk Level: Moderate (q15 min suicide checks) Risk Factors Assessment Male: Yes : Yes Do You Have Access To A Gun?: No Health Problems: No Mental Health Diagnoses: Yes Substance Use Disorders: No Previous Attempt: Yes Family History of Suicide: No Previous Psychiatric Hospitalization: Yes Protective Factors Assessment : No Employed: No Stable Relationships: Yes Good Rapport with Provider: Yes Interval History Identifying Information CASEY DAMIAN is a 52-year-old man who currently lives in supportive psychiatric long-term in [place], has a history of schizophrenia, and was admitted on 11/06/22 16:27 on a 201 voluntary commitment for worsening psychosis and SI with plan to cut himself. Placed on 302 on 11/11/22, on 303 as of 11/13/22. Chief Complaint "I'm having a problem" Review of Systems Sleep Information Total Hours of Sleep: 8 Meal Information Percent Meal Consumed - Breakfast: 100 Percent Meal Consumed - Lunch: 100 Percent Meal Consumed - Dinner: 90 Nutrition Comment: Pt only drank his coffee Subjective Subjective Patient was seen & assessed and interval progress reviewed with nursing. Patient was cooperative this am with staff, asked to shower and been eating meals in milieu. Seemed to decompensate when asked to attend group. Refused to meet with me further and wanted to "rest." Decreased reliance on prns. Physical Exam Psychiatric Orientation: alert Apperance: appropriately groomed Eye Contact: + poor eye contact Motor Behavior: no abnormal motor movements Speech: + abnormal rate/rhythm/volume of speech Affect: + blunted affect Mood: + depressed mood Thought Process: + concrete thought process Thought Content: + paranoid Suicidal Thoughts: denies suicidal thoughts Homicidal Thoughts: denies homicidal thoughts Hallucinations: no auditory hallucinations and no visual hallucinations Cognition: language grossly intact; + attention not intact Estimated Intelligence: consistent with education level Insight: + limited insight Judgment: + limited judgement Vital Signs (Past 24 Hours) Last Vital Signs Temp 37.1 C 11/16/22 06:00 Pulse 102 H 11/16/22 06:00 Resp 18 11/16/22 06:00 BP 106/84 11/16/22 06:36 Pulse Ox 97 11/16/22 06:00 O2 Del Method Room Air 11/16/22 06:00 Results & Data ([facility]) Current Inpatient Medications Current Inpatient Medications: Current Inpatient Medications Acetaminophen (Acetaminophen 325 Mg Tab) 650 mg PO Q4H PRN PRN Reason: Headache or Minor Fever Stop: 12/06/22 16:32 Al Hydrox/Mg Hydrox/Simethicone (Aluminum/Magnesium Susp 30 Ml Udc) 30 ml PO Q4H PRN PRN Reason: GI Upset Stop: 12/06/22 16:32 Bismuth Subsalicylate (Bismuth Subsalicylate Liqd 236 Ml) 15 ml PO PRN PRN PRN Reason: Loose Stool Stop: 12/06/22 16:32 Chlorpromazine HCl (Chlorpromazine Hcl 10 Mg Tab) 10 mg PO Q6 PRN PRN Reason: Anxiety/Agitation Stop: 12/13/22 14:11 Last Admin: 11/14/22 08:04 Dose: 10 mg Clonidine HCl (Clonidine Hcl 0.1 Mg Tab) 0.1 mg PO BID [facility] Stop: 12/06/22 20:59 Last Admin: 11/16/22 09:02 Dose: 0.1 mg Clozapine (Clozapine 100 Mg Tab) 100 mg PO HS [facility]; Protocol Stop: 12/13/22 21:59 Last Admin: 11/15/22 21:05 Dose: 100 mg Clozapine (Clozapine 25 Mg Tab) 50 mg PO QAM [facility] Stop: 12/16/22 08:59 Last Admin: 11/16/22 09:02 Dose: 50 mg Lorazepam (Lorazepam 1 Mg Tab) 1 mg PO BID17 [facility] Stop: 12/13/22 16:59 Last Admin: 11/16/22 09:03 Dose: 1 mg Lorazepam (Lorazepam 1 Mg Tab) 1 mg PO Q6 PRN PRN Reason: Anxiety Stop: 12/11/22 17:06 Magnesium Hydroxide (Magnesium Hydroxide Susp 30 Ml Udc) 30 ml PO DAILY PRN PRN Reason: Constipation Stop: 12/06/22 16:32 Last Admin: 11/11/22 19:48 Dose: 30 ml Miscellaneous (Remove Nicoderm Patch) 1 each N/A DAILY@0859 [facility] Stop: 12/07/22 08:58 Last Admin: 11/16/22 09:09 Dose: 1 each Nicotine (Nicotine 21 Mg/24 Hr Tdsy) 21 mg TD QAM [facility] Stop: 12/06/22 16:44 Last Admin: 11/16/22 09:03 Dose: 21 mg Nicotine Polacrilex (Nicotine Polacrilex 2 Mg Gum) 2 piece MT PRN PRN PRN Reason: Nicotine Withdrawal Stop: 12/06/22 16:32 Olanzapine (Olanzapine 10 Mg/2.1 Ml Sdv) 10 mg IM DAILY PRN PRN Reason: Agitation f refuses po medicat Stop: 12/13/22 08:59 Ondansetron HCl (Ondansetron 4 Mg Od Tab) 4 mg PO BID PRN PRN Reason: Nausea Stop: 12/08/22 14:25 Last Admin: 11/08/22 14:59 Dose: 4 mg Polyethylene Glycol (Polyethylene (Miralax) 17 Gm Pack) 17 gm PO DAILY [facility] Stop: 12/10/22 08:59 Last Admin: 11/16/22 09:04 Dose: 17 gm Senna/Docusate Sodium (Docusate Sodium/Senna 50/8.6mg Tab) 1 tab PO BID [facility] Stop: 12/10/22 20:59 Last Admin: 11/16/22 09:03 Dose: 1 tab Sodium Chloride (Sodium Chloride 0.65% Na Soln 45 Ml ([place])) 1 - 2 sprays NA PRN PRN PRN Reason: Nasal Dryness/Congestion Stop: 12/06/22 16:32 Trazodone HCl (Trazodone Hcl 100 Mg Tab) 100 mg PO [facility] Stop: 12/06/22 21:59 Last Admin: 11/15/22 21:04 Dose: 100 mg
[2022-11-16] MEDS: cloZAPine 100 MG TAB PO SCH (21:00)
[2022-11-16] MEDS: traZODone HCL 100 MG TAB PO SCH (21:00)
[2022-11-17] MEDS: cloNIDine HCL 0.1 MG TAB PO SCH ×2 (08:52→22:11)
[2022-11-17] MEDS: NICOTINE 21 MG/24 HR TDSY TD SCH (08:52)
[2022-11-17] MEDS: LORazepam 1 MG TAB PO SCH ×2 (08:52→17:32)
[2022-11-17] MEDS: DOCUSATE SODIUM/SENNA 50/8.6MG TAB PO SCH ×2 (08:52→22:15)
[2022-11-17] MEDS: POLYETHYLENE (MIRALAX) 17 GM PACK PO SCH (08:53)
--- NOTE | 2022-11-17 11:04 | Psychiatric Progress Note ---
Date of Service November 17, 2022 Impression / Recommendations Impression Reviewed care by Dr. Smith in italics. Casey is a 52 year old with a history of schizophrenia who was admitted for worsening psychosis, delusions, self-guilt and increased SI with plans of cutting himself with history of serious past attempt via cutting his neck. Diagnostically consistent with unspecified psychosis-differential includes acute exacerbation of psychosis due to schizophrenia with increased auditory hallucinations leading to SI and delusions versus major depression episode with psychotic features leading to self-guilt, SI and worsening psychosis. UDS was negative for cannabis so suspect he has been vaping nicotine products which makes substance-induced component much less likely. He is deemed in need of psychiatric hospitalization for diagnostic clarification, safety and stabili zation, medication management and development of further coping skills. Conversion to 302 commitment following seclusion event on 11/11/2022 which expires on 11/16/2022 at 1819. MNPR due to acute psychosis and delusions 11/17/2022: concrete, somewhat guarded, need to confirm baseline (1) Schizophrenia: (2) Depression: Plan 11/17/2022: shift Clozaril to hs. 11/16/2022: continue current meds and tx plan 11/15/2022: Clozaril titration to 50 mg am and 100 mg po qhs. 11/14/2022: continue clozapine trial. Clozaril was increased this am to 125 mg total daily dose. 11/13/2022: Increase clozapine to 100 mg hs, add am dose 25 mg starting tomorrow to further trial. Will hold Prozac for now to limit polypharmacy and risk of activation. d/c hydroxyzine prns as others likely more effective (lorazepam) and to minimize QTc issues. Patient is aware that thorazine can cause low bp in combo with other antipsychotics but will receive 25 mg now. Participated in 303 hearing which was granted. 11/12/2022: Increase clozapine to 75mg HS. ANC reviewed and stable, ANC will be rechecked again on 11/19/2022. 303 hearing scheduled for tomorrow. Olanzapine 5mg BID po and ativan 1mg daily prn added for agitation. Olanzapine 10mg IM prn added in case of acute behavioral event. 11/11/2022: Discontinue Invega. Start clozapine 25mg HS. Weekly ANC. 11/10/2022: Scheduled senna s and miralax to help with constipation. Will enroll in clozapine REMS with plan to start clozapine tomorrow. 11/09/2022: Continue current medication and tx plan. If Casey agrees will likely not proceed with Invega HAYES tomorrow and instead will begin clozapine trial. 11/08/2022: Continue current medications and tx plan. Additional prn Invega and ativan added. Hold off on next Invega HAYES until make decision about continuing with Invega versus clozapine trial. 11/07/2022: The patient was admitted to the [facility] ([facility]) on q15 min checks (behavioral with suicide precautions) for safety. The patient will participate in group, recreational, and milieu therapies and will be offered additional individual and family sessions as clinically appropriate. -Continue prior to admission clonidine, trazodone -lorazepam 0.5mg BID -hold Capltya as not on hospital formulary and seemingly not providing enough b enefit and in effort to reduce polypharmacy of dual antipsychotic use -increase fluoxetine to 40mg daily to target depression and SI -Plan for Invega Sustenna 234mg HAYES on and supplement with oral dose paliperidone 3mg HS po -Repeat labs on 11/09/2022 for CMP to ensure sodium remains stable, fasting glucose and fasting lipid panel Inventory Assets Strengths: willing for treatment, supportive living home, has been stable for extended periods in the past Needs: safety and stabilization, medication adjustment, additional coping skills, increased outpatient services Suicide Risk Level Suicide Risk Level: Moderate (q15 min suicide checks) Risk Factors Assessment Male: Yes : Yes Do You Have Access To A Gun?: No Health Problems: No Mental Health Diagnoses: Yes Substance Use Disorders: No Previous Attempt: Yes Family History of Suicide: No Previous Psychiatric Hospitalization: Yes Protective Factors Assessment : No Employed: No Stable Relationships: Yes Good Rapport with Provider: Yes Interval History Identifying Information CASEY DAMIAN is a 52-year-old man who currently lives in supportive psychiatric halfway in [place], has a history of schizophrenia, and was admitted on 11/06/22 16:27 on a 201 voluntary commitment for worsening psychosis and SI with plan to cut himself. Placed on 302 on 11/11/22, on 303 as of 11/13/22. Chief Complaint "I'm better today. I don't need anything." Review of Systems Sleep Information Total Hours of Sleep: 8.5 Sleep Comments: [facility] Meal Information Percent Meal Consumed - Breakfast: 80 Percent Meal Consumed - Lunch: 75 Percent Meal Consumed - Dinner: 90 Nutrition Comment: Pt only drank his coffee Subjective Subjective Patient was seen & assessed and interval progress reviewed with treatment team. Remains guarded and reclusive. Comes out to meals and eats quickly. Not engaging in any groups. He reports a decrease in upsetting thoughts in that no longer "tortured" and doesn't believe that he is going to alf/needs to be punished. He does feel some sedation during day. No subjective orthostasis (see vitals). Physical Exam Psychiatric Orientation: alert and oriented x 3 Apperance: appropriately dressed and + disheveled Eye Contact: + fair eye contact Motor Behavior: no abnormal motor movements Speech: + abnormal rate/rhythm/volume of speech Affect: + depressed affect Mood: no depressed mood Thought Process: + concrete thought process Thought Content: + delusions Suicidal Thoughts: denies suicidal thoughts Homicidal Thoughts: denies homicidal thoughts Hallucinations: no auditory hallucinations and no visual hallucinations Cognition: attention grossly intact and language grossly intact Estimated Intelligence: consistent with education level Insight: + limited insight Judgment: + limited judgement Vital Signs (Past 24 Hours) Last Vital Signs Temp 36.3 C L 11/17/22 06:44 Pulse 102 H 11/17/22 09:27 Resp 16 11/17/22 06:44 BP 145/89 H 11/17/22 09:27 Pulse Ox 97 11/16/22 06:00 O2 Del Method Room Air 11/16/22 06:00 Results & Data ([facility]) Current Inpatient Medications Current Inpatient Medications: Current Inpatient Medications Acetaminophen (Acetaminophen 325 Mg Tab) 650 mg PO Q4H PRN PRN Reason: Headache or Minor Fever Stop: 12/06/22 16:32 Al Hydrox/Mg Hydrox/Simethicone (Aluminum/Magnesium Susp 30 Ml Udc) 30 ml PO Q4H PRN PRN Reason: GI Upset Stop: 12/06/22 16:32 Bismuth Subsalicylate (Bismuth Subsalicylate Liqd 236 Ml) 15 ml PO PRN PRN PRN Reason: Loose Stool Stop: 12/06/22 16:32 Chlorpromazine HCl (Chlorpromazine Hcl 10 Mg Tab) 10 mg PO Q6 PRN PRN Reason: Anxiety/Agitation Stop: 12/13/22 14:11 Last Admin: 11/14/22 08:04 Dose: 10 mg Clonidine HCl (Clonidine Hcl 0.1 Mg Tab) 0.1 mg PO BID [facility] Stop: 12/06/22 20:59 Last Admin: 11/17/22 08:52 Dose: 0.1 mg Clozapine (Clozapine 100 Mg Tab) 100 mg PO HS [facility]; Protocol Stop: 12/17/22 21:59 Clozapine (Clozapine 25 Mg Tab) 25 mg PO HS [facility]; Protocol Stop: 12/17/22 21:59 Lorazepam (Lorazepam 1 Mg Tab) 1 mg PO BID17 [facility] Stop: 12/13/22 16:59 Last Admin: 11/17/22 08:52 Dose: 1 mg Lorazepam (Lorazepam 1 Mg Tab) 1 mg PO Q6 PRN PRN Reason: Anxiety Stop: 12/11/22 17:06 Magnesium Hydroxide (Magnesium Hydroxide Susp 30 Ml Udc) 30 ml PO DAILY PRN PRN Reason: Constipation Stop: 12/06/22 16:32 Last Admin: 11/11/22 19:48 Dose: 30 ml Miscellaneous (Remove Nicoderm Patch) 1 each N/A DAILY@0859 [facility] Stop: 12/07/22 08:58 Last Admin: 11/17/22 08:52 Dose: 1 each Nicotine (Nicotine 21 Mg/24 Hr Tdsy) 21 mg TD QAM [facility] Stop: 12/06/22 16:44 Last Admin: 11/17/22 08:52 Dose: 21 mg Nicotine Polacrilex (Nicotine Polacrilex 2 Mg Gum) 2 piece MT PRN PRN PRN Reason: Nicotine Withdrawal Stop: 12/06/22 16:32 Olanzapine (Olanzapine 10 Mg/2.1 Ml Sdv) 10 mg IM DAILY PRN PRN Reason: Agitation f refuses po medicat Stop: 12/13/22 08:59 Ondansetron HCl (Ondansetron 4 Mg Od Tab) 4 mg PO BID PRN PRN Reason: Nausea Stop: 12/08/22 14:25 Last Admin: 11/08/22 14:59 Dose: 4 mg Polyethylene Glycol (Polyethylene (Miralax) 17 Gm Pack) 17 gm PO DAILY [facility] Stop: 12/10/22 08:59 Last Admin: 11/17/22 08:53 Dose: 17 gm Senna/Docusate Sodium (Docusate Sodium/Senna 50/8.6mg Tab) 1 tab PO BID [facility] Stop: 12/10/22 20:59 Last Admin: 11/17/22 08:52 Dose: 1 tab Sodium Chloride (Sodium Chloride 0.65% Na Soln 45 Ml ([place])) 1 - 2 sprays NA PRN PRN PRN Reason: Nasal Dryness/Congestion Stop: 12/06/22 16:32 Trazodone HCl (Trazodone Hcl 100 Mg Tab) 100 mg PO HS [facility] Stop: 12/06/22 21:59 Last Admin: 11/16/22 21:00 Dose: 100 mg
[2022-11-17] MEDS ORDERED: cloZAPine 25 MG TAB PO SCH (22:00)
[2022-11-17] MEDS: traZODone HCL 100 MG TAB PO SCH (22:10)
[2022-11-17] MEDS: cloZAPine 25 MG TAB PO SCH (22:12)
[2022-11-17] MEDS: cloZAPine 100 MG TAB PO SCH (22:34)
[2022-11-18] MEDS: NICOTINE 21 MG/24 HR TDSY TD SCH (08:35)
[2022-11-18] MEDS: cloNIDine HCL 0.1 MG TAB PO SCH ×2 (08:35→21:43)
[2022-11-18] MEDS: LORazepam 1 MG TAB PO SCH ×2 (08:35→16:25)
[2022-11-18] MEDS: DOCUSATE SODIUM/SENNA 50/8.6MG TAB PO SCH ×2 (08:35→21:43)
[2022-11-18] MEDS: POLYETHYLENE (MIRALAX) 17 GM PACK PO SCH (08:35)
--- NOTE | 2022-11-18 09:45 | Psychiatric Progress Note ---
Date of Service November 18, 2022 Impression / Recommendations Impression Reviewed care by Dr. Smith in italics. Casey is a 52 year old with a history of schizophrenia who was admitted for worsening psychosis, delusions, self-guilt and increased SI with plans of cutting himself with history of serious past attempt via cutting his neck. Diagnostically consistent with unspecified psychosis-differential includes acute exacerbation of psychosis due to schizophrenia with increased auditory hallucinations leading to SI and delusions versus major depression episode with psychotic features leading to self-guilt, SI and worsening psychosis. UDS was negative for cannabis so suspect he has been vaping nicotine products which makes substance-induced component much less likely. He is deemed in need of psychiatric hospitalization for diagnostic clarification, safety and stabili zation, medication management and development of further coping skills. Conversion to 302 commitment following seclusion event on 11/11/2022 which expires on 11/16/2022 at 1819. MNPR due to acute psychosis and delusions 11/18/2022: calmer, more awake (1) Schizophrenia: (2) Depression: Plan 11/18/2022: continue current meds and tx plan, weekly cbc in am, meeting with CM/staff for collateral on baseline and transition plan 11/17/2022: shift Clozaril to hs. 11/16/2022: continue current meds and tx plan 11/15/2022: Clozaril titration to 50 mg am and 100 mg po qhs. 11/14/2022: continue clozapine trial. Clozaril was increased this am to 125 mg total daily dose. 11/13/2022: Increase clozapine to 100 mg hs, add am dose 25 mg starting tomorrow to further trial. Will hold Prozac for now to limit polypharmacy and risk of activation. d/c hydroxyzine prns as others likely more effective (lorazepam) and to minimize QTc issues. Patient is aware that thorazine can cause low bp in combo with other antipsychotics but will receive 25 mg now. Participated in 303 hearing which was granted. 11/12/2022: Increase clozapine to 75mg HS. ANC reviewed and stable, ANC will be rechecked again on 11/19/2022. 303 hearing scheduled for tomorrow. Olanzapine 5mg BID po and ativan 1mg daily prn added for agitation. Olanzapine 10mg IM prn added in case of acute behavioral event. 11/11/2022: Discontinue Invega. Start clozapine 25mg HS. Weekly ANC. 11/10/2022: Scheduled senna s and miralax to help with constipation. Will enroll in clozapine REMS with plan to start clozapine tomorrow. 11/09/2022: Continue current medication and tx plan. If Casey agrees will likely not proceed with Invega HAYES tomorrow and instead will begin clozapine trial. 11/08/2022: Continue current medications and tx plan. Additional prn Invega and ativan added. Hold off on next Invega HAYES until make decision about continuing with Invega versus clozapine trial. 11/07/2022: The patient was admitted to the [facility] ([facility] mental health unit) on q15 min checks (behavioral with suicide precautions) for safety. The patient will participate in group, recreational, and milieu therapies and will be offered additional individual and family sessions as clinically appropriate. -Continue prior to admission clonidine, trazodone -lorazepam 0.5mg BID -hold Capltya as not on hospital formulary and seemingly not providing enough benefit and in effort to reduce polypharmacy of dual antipsychotic use -increase fluoxetine to 40mg daily to target depression and SI -Plan for Invega Sustenna 234mg HAYES on and supplement with oral dose paliperidone 3mg HS po -Repeat labs on 11/09/2022 for CMP to ensure sodium remains stable, fasting glucose and fasting lipid panel Inventory Assets Strengths: willing for treatment, supportive living home, has been stable for extended periods in the past Needs: safety and stabilization, medication adjustment, additional coping skills, increased outpatient services Suicide Risk Level Suicide Risk Level: Moderate (q15 min suicide checks) Risk Factors Assessment Male: Yes : Yes Do You Have Access To A Gun?: No Health Problems: No Mental Health Diagnoses: Yes Substance Use Disorders: No Previous Attempt: Yes Family History of Suicide: No Previous Psychiatric Hospitalization: Yes Protective Factors Assessment : No Employed: No Stable Relationships: Yes Good Rapport with Provider: Yes Interval History Identifying Information CASEY DAMIAN is a 52-year-old man who currently lives in supportive psychiatric assisted in [place], has a history of schizophrenia, and was admitted on 11/06/22 16:27 on a 201 voluntary commitment for worsening psychosis and SI with plan to cut himself. Placed on 302 on 11/11/22, on 303 as of 11/13/22. Chief Complaint "I'm getting there." Review of Systems Sleep Information Total Hours of Sleep: 7 Sleep Comments: Received Ativan for anxiety Meal Information Percent Meal Consumed - Breakfast: 80 Percent Meal Consumed - Lunch: 80 Percent Meal Consumed - Dinner: 75 Subjective Subjective Patient was seen & assessed and interval progress reviewed with treatment team. remains reclusive to room but only male patient on unit and eats quickly. He dose verbalize feeling better and brightened when discussed a meeting with his staff/CM. BP trends high in am before clonidine despite dose shift in clozaril. Physical Exam Psychiatric Orientation: alert and oriented x 3 Apperance: appropriately dressed and appropriately groomed Eye Contact: + fair eye contact Motor Behavior: no abnormal motor movements Speech: + abnormal rate/rhythm/volume of speech non spontaneous Affect: euthymic affect Mood: no depressed mood Thought Process: + concrete thought process Thought Content: reality based without delusions (does not express delusions but I suspect he is still having them.) Suicidal Thoughts: denies suicidal thoughts Homicidal Thoughts: denies homicidal thoughts Hallucinations: no auditory hallucinations and no visual hallucinations Cognition: attention grossly intact and language grossly intact Estimated Intelligence: consistent with education level Insight: + limited insight Judgment: + limited judgement Vital Signs (Past 24 Hours) Last Vital Signs Temp 36.5 C 11/18/22 06:47 Pulse 80 11/18/22 06:47 Resp 20 11/18/22 06:47 BP 163/96 H 11/18/22 06:48 Pulse Ox 99 11/18/22 06:47 O2 Del Method Room Air 11/18/22 06:47 Results & Data ([facility]) Current Inpatient Medications Current Inpatient Medications: Current Inpatient Medications Acetaminophen (Acetaminophen 325 Mg Tab) 650 mg PO Q4H PRN PRN Reason: Headache or Minor Fever Stop: 12/06/22 16:32 Al Hydrox/Mg Hydrox/Simethicone (Aluminum/Magnesium Susp 30 Ml Udc) 30 ml PO Q4H PRN PRN Reason: GI Upset Stop: 12/06/22 16:32 Bismuth Subsalicylate (Bismuth Subsalicylate Liqd 236 Ml) 15 ml PO PRN PRN PRN Reason: Loose Stool Stop: 12/06/22 16:32 Chlorpromazine HCl (Chlorpromazine Hcl 10 Mg Tab) 10 mg PO Q6 PRN PRN Reason: Anxiety/Agitation Stop: 12/13/22 14:11 Last Admin: 11/14/22 08:04 Dose: 10 mg Clonidine HCl (Clonidine Hcl 0.1 Mg Tab) 0.1 mg PO BID [facility] Stop: 12/06/22 20:59 Last Admin: 11/18/22 08:35 Dose: 0.1 mg Clozapine (Clozapine 100 Mg Tab) 100 mg PO HS [facility]; Protocol Stop: 12/17/22 21:59 Last Admin: 11/17/22 22:34 Dose: 100 mg Clozapine (Clozapine 25 Mg Tab) 25 mg PO HS [facility]; Protocol Stop: 12/17/22 21:59 Last Admin: 11/17/22 22:12 Dose: 25 mg Lorazepam (Lorazepam 1 Mg Tab) 1 mg PO BID17 [facility] Stop: 12/13/22 16:59 Last Admin: 11/18/22 08:35 Dose: 1 mg Lorazepam (Lorazepam 1 Mg Tab) 1 mg PO Q6 PRN PRN Reason: Anxiety Stop: 12/11/22 17:06 Magnesium Hydroxide (Magnesium Hydroxide Susp 30 Ml Udc) 30 ml PO DAILY PRN PRN Reason: Constipation Stop: 12/06/22 16:32 Last Admin: 11/11/22 19:48 Dose: 30 ml Miscellaneous (Remove Nicoderm Patch) 1 each N/A DAILY@0859 [facility] Stop: 12/07/22 08:58 Last Admin: 11/17/22 08:52 Dose: 1 each Nicotine (Nicotine 21 Mg/24 Hr Tdsy) 21 mg TD QAM [facility] Stop: 12/06/22 16:44 Last Admin: 11/18/22 08:35 Dose: 21 mg Nicotine Polacrilex (Nicotine Polacrilex 2 Mg Gum) 2 piece MT PRN PRN PRN Reason: Nicotine Withdrawal Stop: 12/06/22 16:32 Olanzapine (Olanzapine 10 Mg/2.1 Ml Sdv) 10 mg IM DAILY PRN PRN Reason: Agitation f refuses po medicat Stop: 12/13/22 08:59 Ondansetron HCl (Ondansetron 4 Mg Od Tab) 4 mg PO BID PRN PRN Reason: Nausea Stop: 12/08/22 14:25 Last Admin: 11/08/22 14:59 Dose: 4 mg Polyethylene Glycol (Polyethylene (Miralax) 17 Gm Pack) 17 gm PO DAILY [facility] Stop: 12/10/22 08:59 Last Admin: 11/18/22 08:35 Dose: 17 gm Senna/Docusate Sodium (Docusate Sodium/Senna 50/8.6mg Tab) 1 tab PO BID [facility] Stop: 12/10/22 20:59 Last Admin: 11/18/22 08:35 Dose: 1 tab Sodium Chloride (Sodium Chloride 0.65% Na Soln 45 Ml ([place])) 1 - 2 sprays NA PRN PRN PRN Reason: Nasal Dryness/Congestion Stop: 12/06/22 16:32 Trazodone HCl (Trazodone Hcl 100 Mg Tab) 100 mg PO HS [facility] Stop: 12/06/22 21:59 Last Admin: 11/17/22 22:10 Dose: 100 mg
[2022-11-18] MEDS: cloZAPine 25 MG TAB PO SCH (21:43)
[2022-11-18] MEDS: traZODone HCL 100 MG TAB PO SCH (21:43)
[2022-11-18] MEDS: cloZAPine 100 MG TAB PO SCH (21:43)
[2022-11-19 08:37] LABS: Basophils # (auto) 0.05 K/uL (0-0.2); Basophils % (auto) 0.8 %; Eosinophils # (auto) 0.11 K/uL (0-0.50); Eosinophils % (auto) 1.7 %; Hematocrit (blood only) 42.3 % (42.0-52.0); Hemoglobin 14.7 g/dl (14.0-18.0); Immature Granulocytes # (auto) 0.02 K/uL (0.01-0.20); Immature Granulocytes % (auto) 0.3 %; Lymphocytes # (auto) 1.33 K/uL (1.2-3.4); Lymphocytes % (auto) 20.4 %; Mean Corpuscular Hemoglobin 30.9 pg (25.0-34.0); Mean Corpuscular Hgb Conc 34.8 g/dL (32.0-36.0); Mean Corpuscular Volume 89.1 fL (80.0-100.0); Mean Platelet Volume 9.3 fL (9.4-12.4); Monocytes # (auto) 0.37 K/uL (0.11-0.59); Monocytes % (auto) 5.7 %; Neutrophils # (auto) 4.64 K/uL (1.40-6.50); Neutrophils % (auto) 71.1 %; Platelet Count 265 K/uL (130-400); RDW Coefficient of Variation 12.3 % (11.5-14.5); RDW Standard Deviation 40.5 fL (36.4-46.3); Red Blood Count 4.75 M/uL (4.70-6.10); White Blood Count 6.52 K/ul (4.8-10.8)
[2022-11-19] MEDS: cloNIDine HCL 0.1 MG TAB PO SCH ×2 (09:15→21:01)
[2022-11-19] MEDS: NICOTINE 21 MG/24 HR TDSY TD SCH (09:15)
[2022-11-19] MEDS: POLYETHYLENE (MIRALAX) 17 GM PACK PO SCH (09:15)
[2022-11-19] MEDS: LORazepam 1 MG TAB PO SCH ×2 (09:15→16:30)
[2022-11-19] MEDS: DOCUSATE SODIUM/SENNA 50/8.6MG TAB PO SCH ×2 (09:15→21:00)
--- NOTE | 2022-11-19 12:50 | Psychiatric Progress Note ---
Date of Service November 19, 2022 Impression / Recommendations Impression Reviewed care by Dr. Smith in italics. Umberto is a 52 year old with a history of schizophrenia who was admitted for worsening psychosis, delusions, self-guilt and increased SI with plans of cutting himself with history of serious past attempt via cutting his neck. Diagnostically consistent with unspecified psychosis-differential includes acute exacerbation of psychosis due to schizophrenia with increased auditory hallucinations leading to SI and delusions versus major depression episode with psychotic features leading to self-guilt, SI and worsening psychosis. UDS was negative for cannabis so suspect he has been vaping nicotine products which makes substance-induced component much less likely. He is deemed in need of psychiatric hospitalization for diagnostic clarification, safety and stabili zation, medication management and development of further coping skills. Conversion to 302 commitment following seclusion event on 11/11/2022 which expires on 11/16/2022 at 1819. MNPR due to acute psychosis and delusions 11/19/2022: ongoing improvement, reviewed bloodwork results with patient and he voiced good understanding of need for weekly blood draws. [facility] staff will transport. (1) Schizophrenia: (2) Depression: Plan 10/19/2022: CBC stable, updated REMS website, rx sent to pharmacy ahead of discharge as sometimes not stocked. 11/18/2022: continue current meds and tx plan, weekly cbc in am, meeting with CM/staff for collateral on baseline and transition plan 11/17/2022: shift Clozaril to hs. 11/16/2022: continue current meds and tx plan 11/15/2022: Clozaril titration to 50 mg am and 100 mg po qhs. 11/14/2022: continue clozapine trial. Clozaril was increased this am to 125 mg total daily dose. 11/13/2022: Increase clozapine to 100 mg hs, add am dose 25 mg starting tomorrow to further trial. Will hold Prozac for now to limit polypharmacy and risk of activation. d/c hydroxyzine prns as others likely more effective (lorazepam) and to minimize QTc issues. Patient is aware that thorazine can cause low bp in combo with other antipsychotics but will receive 25 mg now. Participated in 303 hearing which was granted. 11/12/2022: Increase clozapine to 75mg HS. ANC reviewed and stable, ANC will be rechecked again on 11/19/2022. 303 hearing scheduled for tomorrow. Olanzapine 5mg BID po and ativan 1mg daily prn added for agitation. Olanzapine 10mg IM prn added in case of acute behavioral event. 11/11/2022: Discontinue Invega. Start clozapine 25mg HS. Weekly ANC. 11/10/2022: Scheduled senna s and miralax to help with constipation. Will enroll in clozapine REMS with plan to start clozapine tomorrow. 11/09/2022: Continue current medication and tx plan. If Umberto agrees will likely not proceed with Invega HAYES tomorrow and instead will begin clozapine trial. 11/08/2022: Continue current medications and tx plan. Additional prn Invega and ativan added. Hold off on next Invega HAYES until make decision about continuing with Invega versus clozapine trial. 11/07/2022: The patient was admitted to the [facility] ([facility] mental health unit) on q15 min checks (behavioral with suicide precautions) for safety. The patient will participate in group, recreational, and milieu therapies and will be offered additional individual and family sessions as clinically approp amarilys. -Continue prior to admission clonidine, trazodone -lorazepam 0.5mg BID -hold Capltya as not on hospital formulary and seemingly not providing enough benefit and in effort to reduce polypharmacy of dual antipsychotic use -increase fluoxetine to 40mg daily to target depression and SI -Plan for Invega Sustenna 234mg HAYES on and supplement with oral dose paliperidone 3mg HS po -Repeat labs on 11/09/2022 for CMP to ensure sodium remains stable, fasting glucose and fasting lipid panel Inventory Assets Strengths: willing for treatment, supportive living home, has been stable for extended periods in the past Needs: safety and stabilization, medication adjustment, additional coping skills, increased outpatient services Suicide Risk Level Suicide Risk Level: Moderate (q15 min suicide checks) Risk Factors Assessment Male: Yes : Yes Do You Have Access To A Gun?: No Health Problems: No Mental Health Diagnoses: Yes Substance Use Disorders: No Previous Attempt: Yes Family History of Suicide: No Previous Psychiatric Hospitalization: Yes Protective Factors Assessment : No Employed: No Stable Relationships: Yes Good Rapport with Provider: Yes Interval History Identifying Information UMBERTO DAMIAN is a 52-year-old man who currently lives in supportive psychiatric senior living in [place], has a history of schizophrenia, and was admitted on 11/06/22 16:27 on a 201 voluntary commitment for worsening psychosis and SI with plan to cut himself. Placed on 302 on 11/11/22, on 303 as of 11/13/22. Chief Complaint ANC monitoring for Clozaril Review of Systems Sleep Information Total Hours of Sleep: 6.5 Sleep Comments: Received Ativan for anxiety Meal Information Percent Meal Consumed - Breakfast: 100 Percent Meal Consumed - Lunch: 100 Percent Meal Consumed - Dinner: 100 Nutrition Comment: Pt only drank his coffee Subjective Subjective Patient was seen & assessed and interval progress reviewed with nursing and social work. Physical Exam Psychiatric alert, more spontaneous affect, doesn't seem to remember his more distressing delusions, voices excited to see coordinator and to work on discharge planning. Vital Signs (Past 24 Hours) Last Vital Signs Temp 36.4 C 11/19/22 06:34 Pulse 93 H 11/19/22 06:34 Resp 20 11/19/22 06:34 BP 126/78 11/19/22 06:36 Pulse Ox 99 11/19/22 06:34 O2 Del Method Room Air 11/19/22 06:34 Results & Data ([facility]) Laboratory Results Laboratory Results - last 24 hr 11/19/22 07:48 WBC 6.52 RBC 4.75 Hgb 14.7 Hct 42.3 MCV 89.1 MCH 30.9 MCHC 34.8 RDW Std Deviation 40.5 RDW Coeff of [place] 12.3 Plt Count 265 MPV 9.3 L Immature Gran % (Auto) 0.3 Neut % (Auto) 71.1 Lymph % (Auto) 20.4 Dickey % (Auto) 5.7 Eos % (Auto) 1.7 Baso % (Auto) 0.8 Neut # (Auto) 4.64 Lymph # (Auto) 1.33 Dickey # (Auto) 0.37 Eos # (Auto) 0.11 Baso # (Auto) 0.05 Immature Gran # (Auto) 0.02 Current Inpatient Medications Current Inpatient Medications: Current Inpatient Medications Acetaminophen (Acetaminophen 325 Mg Tab) 650 mg PO Q4H PRN PRN Reason: Headache or Minor Fever Stop: 12/06/22 16:32 Al Hydrox/Mg Hydrox/Simethicone (Aluminum/Magnesium Susp 30 Ml Udc) 30 ml PO Q4H PRN PRN Reason: GI Upset Stop: 12/06/22 16:32 Bismuth Subsalicylate (Bismuth Subsalicylate Liqd 236 Ml) 15 ml PO PRN PRN PRN Reason: Loose Stool Stop: 12/06/22 16:32 Chlorpromazine HCl (Chlorpromazine Hcl 10 Mg Tab) 10 mg PO Q6 PRN PRN Reason: Anxiety/Agitation Stop: 12/13/22 14:11 Last Admin: 11/14/22 08:04 Dose: 10 mg Clonidine HCl (Clonidine Hcl 0.1 Mg Tab) 0.1 mg PO BID [facility] Stop: 12/06/22 20:59 Last Admin: 11/19/22 09:15 Dose: 0.1 mg Clozapine (Clozapine 100 Mg Tab) 100 mg PO HS [facility]; Protocol Stop: 12/17/22 21:59 Last Admin: 11/18/22 21:43 Dose: 100 mg Clozapine (Clozapine 25 Mg Tab) 25 mg PO HS [facility]; Protocol Stop: 12/17/22 21:59 Last Admin: 11/18/22 21:43 Dose: 25 mg Lorazepam (Lorazepam 1 Mg Tab) 1 mg PO BID17 [facility] Stop: 12/13/22 16:59 Last Admin: 11/19/22 09:15 Dose: 1 mg Lorazepam (Lorazepam 1 Mg Tab) 1 mg PO Q6 PRN PRN Reason: Anxiety Stop: 12/11/22 17:06 Magnesium Hydroxide (Magnesium Hydroxide Susp 30 Ml Udc) 30 ml PO DAILY PRN PRN Reason: Constipation Stop: 12/06/22 16:32 Last Admin: 11/11/22 19:48 Dose: 30 ml Miscellaneous (Remove Nicoderm Patch) 1 each N/A DAILY@0859 [facility] Stop: 12/07/22 08:58 Last Admin: 11/19/22 09:15 Dose: 1 each Nicotine (Nicotine 21 Mg/24 Hr Tdsy) 21 mg TD QAM [facility] Stop: 12/06/22 16:44 Last Admin: 11/19/22 09:15 Dose: 21 mg Nicotine Polacrilex (Nicotine Polacrilex 2 Mg Gum) 2 piece MT PRN PRN PRN Reason: Nicotine Withdrawal Stop: 12/06/22 16:32 Olanzapine (Olanzapine 10 Mg/2.1 Ml Sdv) 10 mg IM DAILY PRN PRN Reason: Agitation f refuses po medicat Stop: 12/13/22 08:59 Ondansetron HCl (Ondansetron 4 Mg Od Tab) 4 mg PO BID PRN PRN Reason: Nausea Stop: 12/08/22 14:25 Last Admin: 11/08/22 14:59 Dose: 4 mg Polyethylene Glycol (Polyethylene (Miralax) 17 Gm Pack) 17 gm PO DAILY [facility] Stop: 12/10/22 08:59 Last Admin: 11/19/22 09:15 Dose: 17 gm Senna/Docusate Sodium (Docusate Sodium/Senna 50/8.6mg Tab) 1 tab PO BID [facility] Stop: 12/10/22 20:59 Last Admin: 11/19/22 09:15 Dose: 1 tab Sodium Chloride (Sodium Chloride 0.65% Na Soln 45 Ml ([place])) 1 - 2 sprays NA PRN PRN PRN Reason: Nasal Dryness/Congestion Stop: 12/06/22 16:32 Trazodone HCl (Trazodone Hcl 100 Mg Tab) 100 mg PO HS [facility] Stop: 12/06/22 21:59 Last Admin: 11/18/22 21:43 Dose: 100 mg Mental Health & Subst Abuse Tx Psychiatrist Name of Psychiatrist: Lala Dowell Psychiatrist's Date Of Appointment With Psychiatric Provider: 12/01/22 Time of Appointment with Psychiatrist: 8:40 AM Psychiatric Appointment Comment: [address] [facility] [id number] Therapist Name of Therapist: Lala Barba Therapist's Date of Therapist Appointment: 12/09/22 Time of Therapist Appointment: 10:00 AM Therapy Appointment Comment: [address] [facility] [id number] Online [employer] Specialist Name of Online Banking Specialist: Jonnie Benjamin Phone Number for Online Banking Specialist: [phone] Time of Appointment with Online Banking Specialist: Follow up per your regular outpatient schedule. Post Discharge Appointments Primary Care Physician Name Of Family Doctor/PCP: JOSE MANUEL Sanchez (New Patient appointment) Primary Care Date of Future Appointment with PCP: 12/10/22 Time of Appointment with PCP: 8:30 AM arrival Provider Appointment Comment: [address], [place] [address] Contact Information Discharge Discharge Address: [address] [place] [address], [place] [address]
[2022-11-19] MEDS: traZODone HCL 100 MG TAB PO SCH (21:01)
[2022-11-19] MEDS: cloZAPine 100 MG TAB PO SCH (21:01)
[2022-11-19] MEDS: cloZAPine 25 MG TAB PO SCH (21:01)
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
[2022-11-20] MEDS: NICOTINE 21 MG/24 HR TDSY TD SCH (09:20)
[2022-11-20] MEDS: DOCUSATE SODIUM/SENNA 50/8.6MG TAB PO SCH (09:21)
[2022-11-20] MEDS: LORazepam 1 MG TAB PO SCH (09:21)
[2022-11-20] MEDS: cloNIDine HCL 0.1 MG TAB PO SCH (09:21)
[2022-11-20] MEDS: POLYETHYLENE (MIRALAX) 17 GM PACK PO SCH (09:21)
== END 2022-11-20 11:04 | disposition home or self-care (01) | DRG 885 ==
LOC: 3S 16:27 → SUATTDRO 16:27

== ENCOUNTER 2023-02-15 13:53 | Inpatient (IN) ==
--- NOTE | 2023-02-15 14:00 | Emergency Department Note ---
Impression & Plan Rib fractures, Foot fracture, left, Fall, Rhinovirus infection, Elevated lactic acid level, Acute dehydration ED Provider Note NAME: CASEY DAMIAN AGE: 52 SEX: M : 1970 ARRIVES VIA: Ambulance INFORMANT: Patient, ED PROVIDER(S): Jesus Alberto Foote MD CHIEF COMPLAINT: Brought in by police, found outside MEDICAL DECISION MAKING: Patient was brought in by police as the patient was found outside without shoes stumbling along the road. Patient reportedly was recently discharged from the [facility] earlier today. Patient did have an IV established blood obtained along with CK and the patient did have an alcohol CT of the head cervical spine chest x-ray performed along with left ankle and foot x-rays. Patient was ordered 2 L of IV fluids in addition to IV Ofirmev. Initial CT report does not show any ICH but on CT cervical spine was noted the patient had first and second rib fractures. The patient did have a CT of the chest and abdomen pelvis obtained. I did go back and speak with the patient the patient has no reproducible posterior chest wall/rib pain. Patient's blood work shows a white count of 15 with mild anemia hemoglobin 11 with normal platelet count. Kidney function is unremarkable. The patient does have an elevated lactate of 4.8 with a troponin of 23. Patient does not complain of chest pains or shortness of breath. Procalcitonin is not elevated. Bio fire positive for enterorhinovirus alcohol negative. Patient CT of the chest does show the first through third posterior rib fractures. No hemothorax but extrapleural hemorrhage is noted. Patient's plain films do show a likely old Lisfranc injury and does have a second metatarsal base fracture. The patient heart rate did improve after reassessment after 30 cc/kg bolus. I did speak the on-call hospitalist Shireen Cuellar PA-C and the patient was admitted by Dr. Gabriel. Definitive Fracture Care note: Dx: Second metatarsal fracture Plan: Immobilization, rest, ice, elevation, analgesia, orthopedic follow up in 3-5 days. Prior /Outside records reviewed: I did review a discharge summary from the [facility] which was from earlier prior to the patient's visit. Differential diagnosis: Infection, dehydration, metabolic abnormality, hypo/hyperglycemia, electrolyte imbalance, anemia, UTI, pneumonia, thyroid dysfunction among others were considered. Diagnostics, as interpreted by me: ECG: Sinus tachycardia, rate of 107, normal intervals normal axis no ST elevations. Cardiac monitoring: An order was placed for continuous cardiac monitoring. The monitor shows a rate of 122 with tachycardic and regular rhythm. Patient was placed on pulse oximetry Medical decision rules: None Imaging studies: I informally reviewed the patient's noncontrast CT of the head which does not show obvious ICH. HPI: Patient presents after being found by [facility] police out on [address] Patient reportedly is a resident of [facility] and was recently discharged from the [facility] this morning. Unsure how to the patient got out there but the patient did have some reported abrasions to the face. Patient currently denies any head or neck pain. He is able to state where he is. Pat josent denies any alcohol tobacco or drug use. Patient denies any abdominal pain nausea vomiting. Patient was noted to be febrile 38 8. Patient states that he was running and had fallen striking his face. The patient denies any chest or abdominal pain PAST MEDICAL HISTORY: See Below PAST SURGICAL HISTORY: See Below SOCIAL HISTORY: See Below HOME MEDICATIONS: See Below ALLERGIES: See Below VITALS: See Below PHYSICAL EXAMINATION: GENERAL: NAD, non-toxic. EYE EXAM: Normal conjunctiva. PERRL, no anisocoria and EOM's grossly intact w/o pain. Head/face: Abrasions noted to the face. No TTP. OROPHARYNX: Dry mucus membranes, grossly normal dentition. NECK: Supple, no nuchal rigidity, no adenopathy, non-tender. No signs of meningismus. FROM of the neck with good chin to chest and neck extension. No stridor. LUNGS: Clear to auscultation. Normal chest wall mechanics. HEART: Tachycardic and regular, no MRG. ABDOMEN: Abdomen soft, non-tender, no masses, no rebound or guarding. BACK: No CVA TTP. SKIN: No rashes and no bruising. UPPER EXTREMITIES: Upper extremities are grossly normal. LOWER EXTREMITIES: Grossly normal, left pedal edema without pain. NEURO EXAM: A&O x3, cranial nerves II-XII grossly intact, normal speech, moves all 4 extremities. Past Med/Surg History Medical History Acute hyponatremia Schizophrenia Self-injurious behavior Surgical History (Updated 02/16/23 @ 14:09 by Jesus Alberto Foote MD) No pertinent past surgical history Social History Smoking Status: Current every day smoker Tobacco Type: Cigarettes Hx Alcohol Use: Yes Hx Substance Use: No Preferred Language: Panamanian Communication Ability: Effective Fundraising Consultant Required: No Beliefs That Will Affect Care: None Current Living Situation: Homeless Feels Safe at Home: Yes Gender Identity: Male Assistive Devices: Glasses Allergies Allergies Allergy/AdvReac Type Severity Reaction Status Date / Time No Known Allergies Allergy Verified 11/07/22 11:50 Home Meds Home Medications Medication Instructions Recorded Confirmed benztropine 1 mg tablet 1 mg PO HS 02/15/23 02/15/23 cholecalciferol (vitamin D3) 50 50 mcg PO QAM 02/15/23 02/15/23 mcg (2,000 unit) tablet (Vitamin D3) cyproheptadine 4 mg tablet 4 mg PO TID 02/15/23 02/15/23 docusate sodium 100 mg capsule 200 mg PO BID 02/15/23 02/15/23 haloperidol 10 mg tablet 10 mg PO QAM 02/15/23 02/15/23 haloperidol 20 mg tablet 20 mg PO HS 02/15/23 02/15/23 multivitamin with minerals (Daily 1 tab PO QAM 02/15/23 02/15/23 Multivitamin-Minerals tablet) pantoprazole 40 mg tablet,delayed 40 mg PO QAM 02/15/23 02/15/23 release venlafaxine 75 mg capsule,extended 75 mg PO QAM 02/15/23 02/15/23 release 24 hr Results & Data (ED) Vital Signs Vital Signs - 24 hr 02/15/23 14:16 02/15/23 14:15 02/15/23 16:26 Pulse Rate 140 H Pulse Rate [Apical] 82 Respiratory Rate 18 Respiratory Effort / Characteristics Non-Labored Respiratory Depth Normal Respiratory Pattern Regular Blood Pressure [Right Arm] 117/74 Blood Pressure Mean [Right Arm] 88 Pulse Oximetry 95 97 Oxygen Delivery Method Room Air Room Air Home Medications Current Medication List: was personally reviewed by me Laboratory Data Attestation: I reviewed the patient's lab results. 02/15/23 14:10 02/15/23 14:10 Lab Results 02/15/23 02/15/23 02/15/23 Range/Units 14:10 14:10 14:10 WBC 15.96 H (4.8-10.8) K/ul RBC 3.59 L (4.70-6.10) M/uL Hgb 11.3 L (14.0-18.0) g/dl Hct 32.5 L (42.0-52.0) % MCV 90.5 (80.0-100.0) fL MCH 31.5 (25.0-34.0) pg MCHC 34.8 (32.0-36.0) g/dL RDW Std Deviation 44.5 (36.4-46.3) fL RDW Coeff of Mars 13.4 (11.5-14.5) % Plt Count 287 (130-400) K/uL MPV 10.1 (9.4-12.4) fL Immature Gran % (Auto) 0.6 % Neut % (Auto) 90.0 % Lymph % (Auto) 4.9 % [place] % (Auto) 4.1 % Eos % (Auto) 0.1 % Baso % (Auto) 0.3 % Neut # (Auto) 14.35 H (1.40-6.50) K/uL Lymph # (Auto) 0.79 L (1.20-3.40) K/uL [place] # (Auto) 0.66 H (0.11-0.59) K/uL Eos # (Auto) 0.02 (0.00-0.50) K/uL Baso # (Auto) 0.04 (0.00-0.20) K/uL Immature Gran # (Auto) 0.10 (0.01-0.20) K/uL Sodium 137 (136-145) mmol/L Potassium 4.1 (3.5-5.1) mmol/L Chloride 102 (98-107) mmol/L Carbon Dioxide 24 (21-32) mmol/L Anion Gap 11 (3-11) BUN 22 (6-23) mg/dl Creatinine 0.86 (0.6-1.4) mg/dl Est Cr Clr Drug Dosing Not Reportable Est GFR ( Amer) 115.6 ml/min Est GFR (Non-Af Amer) 99.7 ml/min BUN/Creatinine Ratio 25.6 H (10-20) Glucose 104 H (70-99(Fasting)) mg/dl Lactate 4.8 H* (0.4-2.0) mmol/L Calcium 9.7 (8.6-10.3) mg/dl Magnesium 2.0 (1.7-2.4) mg/dl Total Bilirubin 0.6 (0.2-1.0) mg/dl Direct Bilirubin 0.1 (0-0.2) mg/dl AST 22 (13-39) U/L ALT 18 (7-52) U/L Alkaline Phosphatase 112 H (34-104) U/L Total Creatine Kinase 100 (30-223) U/L Troponin I High Sens 23.0 H (0-20) pg/ml Total Protein 6.9 (6.0-8.3) gm/dl Albumin 4.1 (3.4-5.0) gm/dl Procalcitonin (0-0.5) ng/ml Ethyl Alcohol mg/dL (<10.0) mg/dl Adenovirus (PCR) (NotDetected) B. pertussis DNA (PCR) (NotDetected) B.parapertussis DNA PCR (NotDetected) C. pneumoniae DNA (PCR) (NotDetected) Coronavirus OC43 (PCR) (NotDetected) Coronavirus HKU1 (PCR) (NotDetected) Coronavirus 229E (PCR) (NotDetected) SARS-CoV-2 (PCR) (NotDetected) Coronavirus NL63 (PCR) (NotDetected) Human Metapneumovir PCR (NotDetected) Influenza Type A (PCR) (NotDetected) Influenza Type B (PCR) (NotDetected) M. pneumoniae (PCR) (NotDetected) Parainfluenza 1 (PCR) (NotDetected) Parainfluenza 2 (PCR) (NotDetected) Parainfluenza 3 (PCR) (NotDetected) Parainfluenza 4 (PCR) (NotDetected) RSV (PCR) (NotDetected) Entero/Rhino (PCR) (NotDetected) 02/15/23 02/15/23 02/15/23 Range/Units 14:10 14:10 16:32 WBC (4.8-10.8) K/ul RBC (4.70-6.10) M/uL Hgb (14.0-18.0) g/dl Hct (42.0-52.0) % MCV (80.0-100.0) fL MCH (25.0-34.0) pg MCHC (32.0-36.0) g/dL RDW Std Deviation (36.4-46.3) fL RDW Coeff of Mars (11.5-14.5) % Plt Count (130-400) K/uL MPV (9.4-12.4) fL Immature Gran % (Auto) % Neut % (Auto) % Lymph % (Auto) % [place] % (Auto) % Eos % (Auto) % Baso % (Auto) % Neut # (Auto) (1.40-6.50) K/uL Lymph # (Auto) (1.20-3.40) K/uL [place] # (Auto) (0.11-0.59) K/uL Eos # (Auto) (0.00-0.50) K/uL Baso # (Auto) (0.00-0.20) K/uL Immature Gran # (Auto) (0.01-0.20) K/uL Sodium (136-145) mmol/L Potassium (3.5-5.1) mmol/L Chloride (98-107) mmol/L Carbon Dioxide (21-32) mmol/L Anion Gap (3-11) BUN (6-23) mg/dl Creatinine (0.6-1.4) mg/dl Est Cr Clr Drug Dosing Est GFR ( Amer) ml/min Est GFR (Non-Af Amer) ml/min BUN/Creatinine Ratio (10-20) Glucose (70-99(Fasting)) mg/dl Lactate (0.4-2.0) mmol/L Calcium (8.6-10.3) mg/dl Magnesium (1.7-2.4) mg/dl Total Bilirubin (0.2-1.0) mg/dl Direct Bilirubin (0-0.2) mg/dl AST (13-39) U/L ALT (7-52) U/L Alkaline Phosphatase (34-104) U/L Total Creatine Kinase (30-223) U/L Troponin I High Sens (0-20) pg/ml Total Protein (6.0-8.3) gm/dl Albumin (3.4-5.0) gm/dl Procalcitonin < 0.05 (0-0.5) ng/ml Ethyl Alcohol mg/dL < 10.0 (<10.0) mg/dl Adenovirus (PCR) Not Detected (NotDetected) B. pertussis DNA (PCR) Not Detected (NotDetected) B.parapertussis DNA PCR Not Detected (NotDetected) C. pneumoniae DNA (PCR) Not Detected (NotDetected) Coronavirus OC43 (PCR) Not Detected (NotDetected) Coronavirus HKU1 (PCR) Not Detected (NotDetected) Coronavirus 229E (PCR) Not Detected (NotDetected) SARS-CoV-2 (PCR) Not Detected (NotDetected) Coronavirus NL63 (PCR) Not Detected (NotDetected) Human Metapneumovir PCR Not Detected (NotDetected) Influenza Type A (PCR) Not Detected (NotDetected) Influenza Type B (PCR) Not Detected (NotDetected) M. pneumoniae (PCR) Not Detected (NotDetected) Parainfluenza 1 (PCR) Not Detected (NotDetected) Parainfluenza 2 (PCR) Not Detected (NotDetected) Parainfluenza 3 (PCR) Not Detected (NotDetected) Parainfluenza 4 (PCR) Not Detected (NotDetected) RSV (PCR) Not Detected (NotDetected) Entero/Rhino (PCR) DETECTED A* (NotDetected) 02/15/23 Range/Units 16:34 WBC (4.8-10.8) K/ul RBC (4.70-6.10) M/uL Hgb (14.0-18.0) g/dl Hct (42.0-52.0) % MCV (80.0-100.0) fL MCH (25.0-34.0) pg MCHC (32.0-36.0) g/dL RDW Std Deviation (36.4-46.3) fL RDW Coeff of Mars (11.5-14.5) % Plt Count (130-400) K/uL MPV (9.4-12.4) fL Immature Gran % (Auto) % Neut % (Auto) % Lymph % (Auto) % [place] % (Auto) % Eos % (Auto) % Baso % (Auto) % Neut # (Auto) (1.40-6.50) K/uL Lymph # (Auto) (1.20-3.40) K/uL [place] # (Auto) (0.11-0.59) K/uL Eos # (Auto) (0.00-0.50) K/uL Baso # (Auto) (0.00-0.20) K/uL Immature Gran # (Auto) (0.01-0.20) K/uL Sodium (136-145) mmol/L Potassium (3.5-5.1) mmol/L Chloride (98-107) mmol/L Carbon Dioxide (21-32) mmol/L Anion Gap (3-11) BUN (6-23) mg/dl Creatinine (0.6-1.4) mg/dl Est Cr Clr Drug Dosing Est GFR ( Amer) ml/min Est GFR (Non-Af Amer) ml/min BUN/Creatinine Ratio (10-20) Glucose (70-99(Fasting)) mg/dl Lactate 1.0 (0.4-2.0) mmol/L Calcium (8.6-10.3) mg/dl Magnesium (1.7-2.4) mg/dl Total Bilirubin (0.2-1.0) mg/dl Direct Bilirubin (0-0.2) mg/dl AST (13-39) U/L ALT (7-52) U/L Alkaline Phosphatase (34-104) U/L Total Creatine Kinase (30-223) U/L Troponin I High Sens (0-20) pg/ml Total Protein (6.0-8.3) gm/dl Albumin (3.4-5.0) gm/dl Procalcitonin (0-0.5) ng/ml Ethyl Alcohol mg/dL (<10.0) mg/dl Adenovirus (PCR) (NotDetected) B. pertussis DNA (PCR) (NotDetected) B.parapertussis DNA PCR (NotDetected) C. pneumoniae DNA (PCR) (NotDetected) Coronavirus OC43 (PCR) (NotDetected) Coronavirus HKU1 (PCR) (NotDetected) Coronavirus 229E (PCR) (NotDetected) SARS-CoV-2 (PCR) (NotDetected) Coronavirus NL63 (PCR) (NotDetected) Human Metapneumovir PCR (NotDetected) Influenza Type A (PCR) (NotDetected) Influenza Type B (PCR) (NotDetected) M. pneumoniae (PCR) (NotDetected) Parainfluenza 1 (PCR) (NotDetected) Parainfluenza 2 (PCR) (NotDetected) Parainfluenza 3 (PCR) (NotDetected) Parainfluenza 4 (PCR) (NotDetected) RSV (PCR) (NotDetected) Entero/Rhino (PCR) (NotDetected) Administered Medications Acetaminophen (Acetaminophen 325 Mg Tab) 650 mg PO Q4H PRN PRN Reason: Pain or Fever Stop: 03/17/23 18:40 Last Admin: 02/16/23 02:57 Dose: 650 mg Documented By: THUY Benztropine Mesylate (Benztropine Mesylate 1 Mg Tab) 1 mg PO HS JOSEMANUEL Stop: 03/17/23 20:59 Last Admin: 02/15/23 21:06 Dose: 1 mg Documented By: DENISSE Docusate Sodium (Docusate Sodium 100 Mg Cap) 200 mg PO BID JOSEMANUEL Stop: 03/17/23 20:59 Last Admin: 02/16/23 08:14 Dose: 200 mg Documented By: Admin: 02/15/23 21:05 Dose: 200 mg Documented By: DENISSE Enoxaparin Sodium (Enoxaparin Inj 40 Mg/0.4 Ml Syr) 40 mg SQ Q24H JOSEMANUEL Stop: 03/17/23 19:59 Last Admin: 02/15/23 21:04 Dose: 40 mg Documented By: DENISSE Haloperidol (Haloperidol 5 Mg Tab) 20 mg PO HS JOSEMANUEL Stop: 03/17/23 20:59 Last Admin: 02/15/23 21:07 Dose: 20 mg Documented By: DENISSE Haloperidol (Haloperidol 5 Mg Tab) 10 mg PO QAM JOSEMANUEL Stop: 03/18/23 08:59 Last Admin: 02/16/23 08:09 Dose: 10 mg Documented By: JIMENEZ Lidocaine (Lidocaine 5% 1 Patch) 1 patch TD HS [facility] Stop: 03/17/23 18:40 Last Admin: 02/15/23 21:03 Dose: 1 patch Documented By: DENISSE Chan (Remove Lidoderm Patch) 1 each N/A DAILY@0900 [facility] Stop: 03/18/23 08:59 Last Admin: 02/16/23 08:22 Dose: 1 each Documented By: JIMENEZ Misedisaneous (Remove Nicoderm Patch) 1 each N/A DAILY@0859 [facility] Stop: 03/18/23 08:58 Last Admin: 02/16/23 08:21 Dose: 1 each Documented By: JIMENEZ Nicotine (Nicotine 14 Mg/24 Hr Patch) 14 mg TD [facility] Stop: 03/18/23 08:59 Last Admin: 02/16/23 08:10 Dose: 14 mg Documented By: JIMENEZ Pantoprazole Sodium (Pantoprazole 40 Mg Tab) 40 mg PO [facility] Stop: 03/18/23 08:59 Last Admin: 02/16/23 08:09 Dose: 40 mg Documented By: JIMENEZ Tramadol HCl (Tramadol Hcl 50 Mg Tablet) 50 mg PO Q4H PRN PRN Reason: Pain Stop: 03/17/23 21:24 Last Admin: 02/16/23 08:14 Dose: 50 mg Documented By: JIMENEZ Venlafaxine HCl (Venlafaxine Hcl Xr 75 Mg Capxr) 75 mg PO [facility] Stop: 03/18/23 08:59 Last Admin: 02/16/23 08:09 Dose: 75 mg Documented By: JIMENEZ Vitamin D (Cholecalciferol 5,000 Units 125 Mcg Tab) 5,000 units PO [facility] Stop: 03/18/23 08:59 Last Admin: 02/16/23 08:08 Dose: 5,000 units Documented By: JIMENEZ Discontinued Medications Sodium Chloride (Nss 1000ml) 1,000 mls @ 999 mls/hr IV .Q1H1M [facility] Stop: 02/15/23 16:15 Last Infusion: 02/15/23 16:57 Dose: 0 mls/hr Documented By: Admin: 02/15/23 15:53 Dose: 999 mls/hr Documented By: Infusion: 02/15/23 15:53 Dose: 999 mls/hr Documented By: Admin: 02/15/23 14:59 Dose: 999 mls/hr Documented By: MARY Acetaminophen (Ofirmev) 1,000 mg in 100 mls @ 400 mls/hr IV NOW STA Stop: 02/15/23 14:24 Last Infusion: 02/15/23 15:53 Dose: 0 mls/hr Documented By: Admin: 02/15/23 14:59 Dose: 400 mls/hr Documented By: MARY Sodium Chloride (Nss 1000ml) 1,000 mls @ 999 mls/hr IV .Q1H1M ONE Stop: 02/16/23 08:40 Last Infusion: 02/16/23 10:18 Dose: 0 mls/hr Documented By: Admin: 02/16/23 08:08 Dose: 999 mls/hr Documented By: NRViolette Ioversol (Optiray 320 100ml) 89 ml IV ONCE ONE Stop: 02/15/23 15:38 Last Admin: 02/15/23 15:40 Dose: 89 ml Documented By: PLW Lorazepam (Lorazepam 2 Mg/1 Ml Vial) 1 mg IV NOW STA Stop: 02/15/23 15:18 Last Admin: 02/15/23 15:26 Dose: 1 mg Documented By: MNE Nicotine (Nicotine 14 Mg/24 Hr Patch) 14 mg TD Q24H JOSEMANUEL Stop: 03/17/23 18:59 Last Admin: 02/16/23 07:32 Dose: Not Given Documented By: LUPE Imaging Data Radiologist's Impression: Ankle X-Ray 02/15/23 14:10 XR ankle LT min 3V routine CLINICAL HISTORY: foot swelling TECHNIQUE: 3 views of the left ankle were obtained. Comparison: None available at the time of this dictation. FINDINGS: No acute fractures are present. The joint spaces are well preserved. The ankle mortise is intact. Soft tissue swelling is seen about the ankle. IMPRESSION: Soft tissue swelling is seen without evidence of underlying bony abnormality. ACT 112: Negative or not required by law. Electronically signed by: Delano Torres M.D. 02/15/2023 3:[address] 02/15/23 14:10 CT SCAN OF THE CERVICAL SPINE CLINICAL HISTORY: Trauma. COMPARISON STUDY: No priors. TECHNIQUE: CT scan of the cervical spine is performed from the skull base to the upper thoracic spine. Images are reviewed in the axial, sagittal, and coronal planes. IV contrast was not administered for this examination. A dose lowering technique was utilized adhering to the principles of ALARA. CT DOSE: 1086.09 mGy.cm FINDINGS: Skeletal structures: The skeletal structures are well mineralized. There is no evidence of fracture or subluxation involving the cervical spine. Vertebral body height and alignment are maintained. The odontoid process and lateral masses are intact. The atlantoaxial articulation is preserved. The spinous processes appear intact. There a right posterior 1st and 2nd rib fractures, best seen on sagittal images #19 and coronal image #43. Intervertebral discs: There is mild multilevel degenerative disc space narrowing, greatest at C5-C6. Central canal: Widely patent. Soft tissues: The prevertebral and paraspinous soft tissues are within normal limits. There is mild atherosclerotic calcification of the carotid bulbs. Calvarium: The visualized calvarium at the skull base appears intact. Brain parenchyma: Partially visualized brain parenchyma at the skull base is within normal limits. Sinuses and mastoids: There is mild mucosal thickening within the maxillary antra. The remaining visualized paranasal sinuses are clear. The mastoid air cells are well pneumatized. Dentition: There are numerous dental caries and periapical lucencies. Lung apices: Emphysematous change is noted at the apices. Apical lung parenchyma is otherwise clear as visualized. No apical pneumothorax is identified. IMPRESSION: 1. There is no evidence of fracture or subluxation involving the cervical spine. 2. Right posterior 1st and 2nd rib fractures. 3. Emphysema. 4. There are numerous dental caries and periapical lucencies. Nonemergent follow-up with dentistry is recommended. ACT 112: Negative or not required by law. Electronically signed by: Elijah Arvizu M.D. 02/15/2023 3:04 PM Chest X-Ray 02/15/23 14:10 XR chest 1V portable CLINICAL HISTORY: Sepsis. COMPARISON STUDY: Chest radiograph December 15, 2022. FINDINGS: There is an acute mildly displaced posterior right second rib fracture. Multiple old right-sided rib fractures are present. There is no pneumothorax or pleural effusion. There is no consolidation. Cardiac size is normal. Mediastinal contours are normal. IMPRESSION: Acute mildly displaced posterior right second rib fracture. No pneumothorax. ACT 112: Negative or not required by law. Electronically signed by: Thony Otto M.D. 02/15/2023 3:19 PM Foot X-Ray 02/15/23 14:10 LEFT FOOT 3 VIEWS CLINICAL HISTORY: Left foot swelling. FINDINGS: 3 views of the left foot are obtained. No prior studies are available for comparison at the time of dictation. The skeletal structures are well mineralized. There is a mildly displaced avulsion fracture at the base of the second proximal phalanx. No additional acute fracture is clearly seen. There is offset at the second tarsometatarsal articulation as well as widening between the base of the first and second metatarsals indicative of age-indeterminate Lisfranc injury. There is mild flattening and sclerosis of the third metatarsal head. Soft tissue edema is noted throughout the foot. An os trigonum is incidentally noted. IMPRESSION: 1. Avulsion fracture at the base of the second proximal phalanx. 2. No additional bony fracture is clearly identified. 3. There is evidence of age indeterminant Lisfranc injury. Orthopedic follow-up is advised. 4. Diffuse soft tissue swelling. Electronically signed by: Elijah Arvizu M.D. 02/15/2023 3:[address] 02/15/23 14:10 CT OF THE HEAD WITHOUT CONTRAST CLINICAL HISTORY: abrasion to face COMPARISON STUDY: Head CT December 15, 2022. TECHNIQUE: Helical axial images of the head were obtained without IV contrast. Automated exposure control was utilized for the study. A dose lowering technique was utilized adhering to the principles of ALARA. FINDINGS: No acute intracranial hemorrhage, midline shift or mass effect is present. The ventricular system is unremarkable. The basal cisterns are patent. No extra-axial collections are present. There are no findings to suggest acute dural sinus thrombosis or acute territorial infarct. A small right frontal scalp contusion is present. No calvarial fracture. IMPRESSION: 1. No acute intracranial findings. 2. Small right frontal scalp contusion. No calvarial fracture. ACT 112: Negative or not required by law. Electronically signed by: Thony Otto M.D. 02/15/2023 3:16 PM Abdomen/Pelvis CT 02/15/23 15:17 CT abd pelvis IV con only CLINICAL HISTORY: possible trauma TECHNIQUE: Helical axial images of the abdomen and pelvis were obtained and displayed. Automated dose lowering techniques and/or adjustment according to patient size were utilized for this exam. This exam was performed with intravenous contrast. COMPARISON: Comparison is made to CT abdomen pelvis 12/15/2022 FINDINGS: Lower chest: Bibasilar atelectasis versus scarring is seen. Liver: Unremarkable. No focal lesions are seen. Gallbladder and biliary tree: No calcified gallstones. Normal caliber wall. No intra- or extrahepatic biliary ductal dilation. Pancreas: Unremarkable, no focal lesions. Spleen: Unremarkable. Adrenals: Unremarkable. Kidneys and ureters: Unremarkable. Bladder: Diffuse homogeneous wall thickening is seen. Reproductive organs: Unremarkable. Bowel: Unremarkable. Lymph nodes Retroperitoneal: Subcentimeter lymph nodes are noted. Pelvic: Unremarkable. Mesenteric: Unremarkable. Peritoneum: Normal. Vessels: Atherosclerotic calcifications are seen. Abdominal wall: Unremarkable. Bones: Old healed rib fractures are seen. Degenerative changes are seen in the spine. IMPRESSION: No acute abnormalities in particular no evidence of acute fracture. ACT 112: Negative or not required by law. Electronically signed by: Delano Torres M.D. 02/15/2023 4:[address] 02/15/23 15:23 CT OF THE CHEST WITH IV CONTRAST CLINICAL HISTORY: Rib fractures. COMPARISON STUDY: Chest radiograph December 15, 2022 and February 15, 2023. TECHNIQUE: Following IV administration of 89 mL of Optiray, helical axial images of the chest were obtained. Sagittal and coronal reconstructions were viewed as well as maximal intensity projections on an independent 3-D workstation. Automated exposure control was utilized for the study. A dose lowering technique was utilized adhering to the principles of ALARA. CT DOSE: 1073.30 mGy.cm FINDINGS: There is no evidence for traumatic injury to the thoracic aorta. No mediastinal hematoma is present. The size of the heart is normal. There is no pericardial effusion. No pneumothorax or pleural effusion is present. Moderate upper lobe predominant emphysema is noted. There are no acute thoracic spine fracture. There is an acute nondisplaced fracture the posterior right first rib. There is an acute mildly displaced fracture of the posterior right second rib and a moderately displaced acute fracture of the posterior right third rib. Extrapleural hemorrhage is present. Additional right sided rib fractures are old. No acute left rib fractures are present. IMPRESSION: 1. No evidence for traumatic injury to the thoracic aorta. 2. Acute right first through third rib fractures. No pneumothorax. Small amount of associated extrapleural hemorrhage. 3. Emphysema. ACT 112: Negative or not required by law. Electronically signed by: Thony Otto M.D. 02/15/2023 3:58 PM Discharge Plan Visit Data Chief Complaint: Mental Health Evaluation Stated Complaint: MENTAL HEALTH EVAL ED Provider: Jesus Alberto Foote Discharge Problem: Rib fractures, Foot fracture, left, Fall, Rhinovirus infection, Elevated lactic acid level, Acute dehydration Patient Disposition: Admitted As Inpatient Discharge Instructions Interventions: ED Discharge Assessment Last Done: 02/15/23 18:41
[2023-02-15] MEDS ORDERED: ACETAMINOPHEN 1,000 MG/100 ML VIAL IV STA (14:10)
[2023-02-15] MEDS: SODIUM CHLORIDE 0.9% 1,000 ML IV SCH ×2 (14:59→15:53)
[2023-02-15 15:04] LABS: Basophils # (auto) 0.04 K/uL (0.00-0.20); Basophils % (auto) 0.3 %; Eosinophils # (auto) 0.02 K/uL (0.00-0.50); Eosinophils % (auto) 0.1 %; Hematocrit (blood only) 32.5 % (42.0-52.0); Hemoglobin 11.3 g/dl (14.0-18.0); Immature Granulocytes % (auto) 0.6 %; Lymphocytes # (auto) 0.79 K/uL (1.20-3.40); Lymphocytes % (auto) 4.9 %; Mean Corpuscular Hemoglobin 31.5 pg (25.0-34.0); Mean Corpuscular Hgb Conc 34.8 g/dL (32.0-36.0); Mean Corpuscular Volume 90.5 fL (80.0-100.0); Mean Platelet Volume 10.1 fL (9.4-12.4); Monocytes # (auto) 0.66 K/uL (0.11-0.59); Monocytes % (auto) 4.1 %; Neutrophils # (auto) 14.35 K/uL (1.40-6.50); Platelet Count 287 K/uL (130-400); RDW Coefficient of Variation 13.4 % (11.5-14.5); RDW Standard Deviation 44.5 fL (36.4-46.3); Red Blood Count 3.59 M/uL (4.70-6.10); White Blood Count 15.96 K/ul (4.8-10.8)
--- NOTE | 2023-02-15 15:06 | CT Scan Report ---
CT SCAN OF THE CERVICAL SPINE CLINICAL HISTORY: Trauma. COMPARISON STUDY: No priors. TECHNIQUE: CT scan of the cervical spine is performed from the skull base to the upper thoracic spine . Images are reviewed in the axial, sagittal, and coronal planes. IV contrast was not administered fo r this examination. A dose lowering technique was utilized adhering to the principles of ALARA. CT DOSE: 1086.09 mGy.cm FINDINGS: Skeletal structures: The skeletal structures are well mineralized. There is no evidence of fracture o r subluxation involving the cervical spine. Vertebral body height and alignment are maintained. The odontoid process and lateral masses are intact. The atlantoaxial articulation is preserved. The spino us processes appear intact. There a right posterior 1st and 2nd rib fractures, best seen on sagittal images #19 and coronal image #43. Intervertebral discs: There is mild multilevel degenerative disc space narrowing, greatest at C5-C6. Central canal: Widely patent. Soft tissues: The prevertebral and paraspinous soft tissues are within normal limits. There is mild a therosclerotic calcification of the carotid bulbs. Calvarium: The visualized calvarium at the skull base appears intact. Brain parenchyma: Partially visualized brain parenchyma at the skull base is within normal limits. Sinuses and mastoids: There is mild mucosal thickening within the maxillary antra. The remaining visu alized paranasal sinuses are clear. The mastoid air cells are well pneumatized. Dentition: There are numerous dental caries and periapical lucencies. Lung apices: Emphysematous change is noted at the apices. Apical lung parenchyma is otherwise clear a s visualized. No apical pneumothorax is identified. IMPRESSION: 1. There is no evidence of fracture or subluxation involving the cervical spine. 2. Right posterior 1st and 2nd rib fractures. 3. Emphysema. 4. There are numerous dental caries and periapical lucencies. Nonemergent follow-up with dentistry is recommended. ACT 112: Negative or not required by law. Electronically signed by: Elijah Arvizu M.D. 02/15/2023 3:04 PM
--- NOTE | 2023-02-15 15:09 | XRay Report ---
LEFT FOOT 3 VIEWS CLINICAL HISTORY: Left foot swelling. FINDINGS: 3 views of the left foot are obtained. No prior studies are available for comparison at the time of dictation. The skeletal structures are well mineralized. There is a mildly displaced avulsio n fracture at the base of the second proximal phalanx. No additional acute fracture is clearly seen. There is offset at the second tarsometatarsal articulation as well as widening between the base of th e first and second metatarsals indicative of age-indeterminate Lisfranc injury. There is mild flatten ing and sclerosis of the third metatarsal head. Soft tissue edema is noted throughout the foot. An os trigonum is incidentally noted. IMPRESSION: 1. Avulsion fracture at the base of the second proximal phalanx. 2. No additional bony fracture is clearly identified. 3. There is evidence of age indeterminant Lisfranc injury. Orthopedic follow-up is advised. 4. Diffuse soft tissue swelling. Electronically signed by: Elijah Arvizu M.D. 02/15/2023 3:08 PM
--- NOTE | 2023-02-15 15:09 | XRay Report ---
XR ankle LT min 3V routine CLINICAL HISTORY: foot swelling TECHNIQUE: 3 views of the left ankle were obtained. Comparison: None available at the time of this dictation. FINDINGS: No acute fractures are present. The joint spaces are well preserved. The ankle mortise is intact. Sof t tissue swelling is seen about the ankle. IMPRESSION: Soft tissue swelling is seen without evidence of underlying bony abnormality. ACT 112: Negative or not required by law. Electronically signed by: Delano Torres M.D. 02/15/2023 3:07 PM
[2023-02-15] MEDS ORDERED: LORazepam 2 MG/1 ML VIAL IV STA (15:17)
--- NOTE | 2023-02-15 15:18 | CT Scan Report ---
CT OF THE HEAD WITHOUT CONTRAST CLINICAL HISTORY: abrasion to face COMPARISON STUDY: Head CT December 15, 2022. TECHNIQUE: Helical axial images of the head were obtained without IV contrast. Automated exposure con trol was utilized for the study. A dose lowering technique was utilized adhering to the principles o f ALARA. FINDINGS: No acute intracranial hemorrhage, midline shift or mass effect is present. The ventricular system is unremarkable. The basal cisterns are patent. No extra-axial collections are present. There are no findings to suggest acute dural sinus thrombosis or acute territorial infarct. A small right f rontal scalp contusion is present. No calvarial fracture. IMPRESSION: 1. No acute intracranial findings. 2. Small right frontal scalp contusion. No calvarial fracture. ACT 112: Negative or not required by law. Electronically signed by: Thony Otto M.D. 02/15/2023 3:16 PM
[2023-02-15 15:19] LABS: Alanine Aminotransferase 18 U/L (7-52); Albumin Level 4.1 gm/dl (3.4-5.0); Alkaline Phosphatase 112 U/L (34-104); Anion Gap 11 (3-11); Aspartate Aminotransferase 22 U/L (13-39); BUN Creatinine Ratio 25.6 (10-20); Bilirubin Direct 0.1 mg/dl (0-0.2); Bilirubin,Total 0.6 mg/dl (0.2-1.0); Blood Urea Nitrogen 22 mg/dl (6-23); Calcium 9.7 mg/dl (8.6-10.3); Carbon Dioxide 24 mmol/L (21-32); Chloride 102 mmol/L (98-107); Creatine Kinase 100 U/L (30-223); Est GFR (African American) 115.6 ml/min; Est GFR (Non-African American) 99.7 ml/min; Glucose 104 mg/dl (70-99(Fasting)); Potassium 4.1 mmol/L (3.5-5.1); Sodium 137 mmol/L (136-145); Total Protein 6.9 gm/dl (6.0-8.3)
--- NOTE | 2023-02-15 15:20 | XRay Report ---
XR chest 1V portable CLINICAL HISTORY: Sepsis. COMPARISON STUDY: Chest radiograph December 15, 2022. FINDINGS: There is an acute mildly displaced posterior right second rib fracture. Multiple old right- sided rib fractures are present. There is no pneumothorax or pleural effusion. There is no consolidat ion. Cardiac size is normal. Mediastinal contours are normal. IMPRESSION: Acute mildly displaced posterior right second rib fracture. No pneumothorax. ACT 112: Negative or not required by law. Electronically signed by: Thony Otto M.D. 02/15/2023 3:19 PM
[2023-02-15] MEDS ORDERED: OPTIRAY 320 100ml IV ONE (15:37)
--- NOTE | 2023-02-15 15:59 | CT Scan Report ---
CT OF THE CHEST WITH IV CONTRAST CLINICAL HISTORY: Rib fractures. COMPARISON STUDY: Chest radiograph December 15, 2022 and February 15, 2023. TECHNIQUE: Following IV administration of 89 mL of Optiray, helical axial images of the chest were o btained. Sagittal and coronal reconstructions were viewed as well as maximal intensity projections o n an independent 3-D workstation. Automated exposure control was utilized for the study. A dose low ering technique was utilized adhering to the principles of ALARA. CT DOSE: 1073.30 mGy.cm FINDINGS: There is no evidence for traumatic injury to the thoracic aorta. No mediastinal hematoma i s present. The size of the heart is normal. There is no pericardial effusion. No pneumothorax or pleu ral effusion is present. Moderate upper lobe predominant emphysema is noted. There are no acute thora cic spine fracture. There is an acute nondisplaced fracture the posterior right first rib. There is a n acute mildly displaced fracture of the posterior right second rib and a moderately displaced acute fracture of the posterior right third rib. Extrapleural hemorrhage is present. Additional right sided rib fractures are old. No acute left rib fractures are present. IMPRESSION: 1. No evidence for traumatic injury to the thoracic aorta. 2. Acute right first through third rib fractures. No pneumothorax. Small amount of associated extrapl eural hemorrhage. 3. Emphysema. ACT 112: Negative or not required by law. Electronically signed by: Thony Otto M.D. 02/15/2023 3:58 PM
--- NOTE | 2023-02-15 16:15 | CT Scan Report ---
CT abd pelvis IV con only CLINICAL HISTORY: possible trauma TECHNIQUE: Helical axial images of the abdomen and pelvis were obtained and displayed. Automated dose lowering techniques and/or adjustment according to patient size were utilized for this exam. This e xam was performed with intravenous contrast. COMPARISON: Comparison is made to CT abdomen pelvis 12/15/2022 FINDINGS: Lower chest: Bibasilar atelectasis versus scarring is seen. Liver: Unremarkable. No focal lesions are seen. Gallbladder and biliary tree: No calcified gallstones. Normal caliber wall. No intra- or extrahepatic biliary ductal dilation. Pancreas: Unremarkable, no focal lesions. Spleen: Unremarkable. Adrenals: Unremarkable. Kidneys and ureters: Unremarkable. Bladder: Diffuse homogeneous wall thickening is seen. Reproductive organs: Unremarkable. Bowel: Unremarkable. Lymph nodes Retroperitoneal: Subcentimeter lymph nodes are noted. Pelvic: Unremarkable. Mesenteric: Unremarkable. Peritoneum: Normal. Vessels: Atherosclerotic calcifications are seen. Abdominal wall: Unremarkable. Bones: Old healed rib fractures are seen. Degenerative changes are seen in the spine. IMPRESSION: No acute abnormalities in particular no evidence of acute fracture. ACT 112: Negative or not required by law. Electronically signed by: Delano Torres M.D. 02/15/2023 4:14 PM
--- NOTE | 2023-02-15 17:28 | History & Physical Report ---
Date of Service February 15, 2023 Assessment & Plan (1) Fall: Plan: found by police wandering [place] after discharge from the [facility] back to [facility] [facility] this morning Found to have multiple rib fractures, acute 2nd phalanx fx L foot, as well as fever to 38.8C/leukocytosis to 15.9k and lactic 4.8 (1.0 on repeat) Admit to med tele, monitor for any arrhythmia contributing to fall as well Given 2L NSS on admission, lactic 4.8--> 1.0. HRs without further tachycardia. Procal negative Blood cultures pending from ER Biofire testing revealed POSITIVE for Rhino/Enterovirus, likely culprit for his fever. NOT hypoxia. CXR w/o focal consolidation. Rib fractures 1-3st on the right. Lidocaine patch/incentive spirometer ordered Check UA to eval for any UTI contributing to fall however appears was running without shoes on Orthopedics consulted for acute fracture L foot, ?chronic lis franc fracture Ice, pain control. Tylenol prn pain. Denied need for increased pain control at present Also obtaining xray LEFT elbow for eval fracture PT/OT consults given fall Monitor labs on repeat (2) Rhinovirus infection: Plan: +biofire testing incentive spirometer, O2 if needed (97% on RA) isolation precautions (3) Rib fractures: Plan: Acute right first through third rib fractures. No pneumothorax. Small amount of associated extrapleural hemorrhage Incentive spirometer/cough/deep breathing Pain control O2 prn, 97% on RA currently (4) Fever: Plan: suspected 2nd to virus, +biofire testing as above blood cultures pending check UA, but no symptoms reported. Holding off abx at present (5) Leukocytosis: Plan: suspected 2nd to fall/fractures, also w/ +biofire testing as above (6) Foot fracture, left: Plan: Xray w/ Avulsion fracture at the base of the second proximal phalanx.. No additional bony fracture is clearly identified. There is evidence of age indeterminant Lisfranc injury. Tenderness to palpation/swelling, suspect acute fracture 2nd phalanx, suspect 2nd to acute fall running as above Pain control, ice, elevation Orthopedic follow-up is advised. (felt to be chronic). Diffuse soft tissue swelling (7) Schizophrenia: Plan: recent inpatient stay at [facility], discharged this morning medication changes as listed in HPI, will continue such given mentation stable, no SI/HI reported at present Continue Haldol 10mg QAM, 20mg HS, Effexor 75mg, Protonix 40mg daily, Colace, vitamin D, nicotine patch. cyproheptadine 4mg TID for appetite stimulant held to prevent tachycardia, appetite reported stable. Continue bowel regimen to prevent constipation Monitor for need to resume stimulant Psych consulted while inpatient stay, but potential could switch to liason pending continued stability during inpatient stay (8) Psychotic disorder: Plan: mood stable at present (9) Depression: Plan: mood stable, denied SI/HI at present Plan continued inpatient stay isolation/supportive care for rhinovirus/enterovirus, pain control/pulmonary toilet for rib fractures check LEFT elbow x-ray, ortho already consulted for acute LEFT foot fracture PT/OT consultations Resident of [facility] [facility], CM consult placed as well to help facilitate transfer back if stable/safe/willing to accept History of Present Illness Chief Complaint: fall, rib fractures, found by police wandering [address] Primary Care Provider: NO PCP 52yo male with PMHx significant for schizophrenia, depression, psychotic disorder, was recently discharged from the [facility] this morning where he had been for about 2-3 months for ongoing care and reportedly took a Lyft back to [place] when during doing intake, worker left room for a moment per collateral history and patient was gone when they came back. Police found wandering [address] with abrasion to face/shoulder and reported ankle discomfort. Patient evaluated in room A6. Reports calling for a ride from the [facility] to [place] but then he r eports he wanted to go on a run and fell, causing pain to his foot at present (reports 2nd toe most painful), however noting rib fractures (not painful on exam) as well as noted abrasions to his other foot and his left elbow. He reports he is not suicidal or homicidal, feels mood is stable at present. Denies feeling much fever, improving since tylenol as well as heart rate. Denies shortness of breath or cough, but discuss he has a viral process on biofire (positive Entero/Rhinovirus) and that we will be admitting for pain control, therapy evaluations and orthopedics consultation but will also have psych see him while inpatient. He notes he prefers [facility] [address] if needed, however doesn't appear to need acute inpatient psych treatment at present time and mood currently stable. He would like some ice for his foot if possible and possibly compression he notes. Ate all his meal and reports good appetite, no abdominal pain reported. Will continue bowel regimen given reports of constipation at baseline. Previous meds in system listing clonidine 0.1mg BID, clozapine 25mg HS, lorazepam 0.5mg BID, trazodone 100mg HS. Discharge summary from [place] reviewed, patient discharged on Haldol 10mg QAM, 20mg HS, Effexor 75mg, cyproheptadine 4mg TID for appetite stimulant as well as Protonix 40mg daily, Colace, vitamin D, nicotine patch. Summary of [facility] indicating patient with diagnoses chronic paranoid schizophrenia, major depressive disorder as well as marijuana use disorder. ER Course: WBC elevation to 15.9k, temp 38.8C, tachycardic to the 140s with lactic 4.8--> 1.0 after 2L NSS IVF, IV Tylenol and dose of Ativan. Procalcitonin negative. Blood cultures pending CT head no acute intracranial findings. small R frontal scalp contusion. No fracture. CTAP without acute abnormalities/fracture. Chest CT noting acute RIGHT 1st-3rd rib fractures with small amt extrapleural hemorrhage. No PTX. Emphysema noted. EKG w/ sinus tachycardia 107bpm, nonspecific TW abn lateral leads, QT lengthened (453ms) Biofire pending Order for UDS/UA/cx ordered. Allergies Allergy/AdvReac Type Severity Reaction Status Date / Time No Known Allergies Allergy Verified 11/07/22 11:50 Home Medications Medication Instructions Recorded Confirmed Type benztropine 1 mg tablet 1 mg PO HS 02/15/23 02/15/23 History cholecalciferol (vitamin D3) 50 50 mcg PO QAM 02/15/23 02/15/23 History mcg (2,000 unit) tablet (Vitamin D3) cyproheptadine 4 mg tablet 4 mg PO TID 02/15/23 02/15/23 History docusate sodium 100 mg capsule 200 mg PO BID 02/15/23 02/15/23 History haloperidol 10 mg tablet 10 mg PO QAM 02/15/23 02/15/23 History haloperidol 20 mg tablet 20 mg PO HS 02/15/23 02/15/23 History multivitamin with minerals (Daily 1 tab PO QAM 02/15/23 02/15/23 History Multivitamin-Minerals tablet) pantoprazole 40 mg tablet,delayed 40 mg PO QAM 02/15/23 02/15/23 History release venlafaxine 75 mg capsule,extended 75 mg PO QAM 02/15/23 02/15/23 History release 24 hr Past Med/Surg History Medical History Acute hyponatremia Schizophrenia Self-injurious behavior Social History Smoking Status: Current every day smoker Tobacco Type: Cigarettes Hx Alcohol Use: Yes Hx Substance Use: No Preferred Language: Cymraes Communication Ability: Effective Outboard Motor Mechanic Required: No Beliefs That Will Affect Care: None Current Living Situation: Homeless Feels Safe at Home: Yes Gender Identity: Male Assistive Devices: Glasses Review of Systems Review of Systems: All systems reviewed & are unremarkable except as noted in HPI & below Physical Exam Physical Exam: General: chronically ill appearing male resting in bed, NAD HEENT: contusion R frontal scalp, multiple abrasions to face noted, poor dentition, mmm, trachea midline Chest: nontender to palpation (even in site of rib fractures) Resp: fine crackles bilaterally, no wheezing/rales, on room air CV: regular rate/rhythm, no significant m/r/g, trace pedal edema (worsened edema in left foot), pulses palpable GI: +BS, soft/NT, no guarding/rigidity : no diaz MSK/Neuro/skin: follows commands, no focal deficits/slurred speech, no facial droop/slurred speech LEFT elbow with abrasions, swelling, ROM intact, denies pain on palpation LEFT foot with increased swelling compared to the right, tenderness to palpation mid foot/worse 2nd-3rd toes, lateral aspect RIGHT foot with scattered abrasions/scant bleeding from fall, no active cellulitis/warmth Psych: alert to person/place/time, cooperative with exam, denies any SI/HI, hallucinations or voices at present, no agitation Results & Data Results & Data Vital Signs (Past 12 Hours) Vital Signs Temp Pulse Pulse Resp BP BP Pulse Ox 02/15/23 16:26 82 18 117/74 97 02/15/23 14:15 140 H 02/15/23 14:16 95 02/15/23 14:08 38.8 C H 139 H 20 121/74 02/15/23 14:08 38.8 C H 141 H 20 121/74 96 O2 Del Method 02/15/23 16:26 Room Air 02/15/23 14:15 02/15/23 14:16 Room Air 02/15/23 14:08 02/15/23 14:08 Room Air Laboratory Results 02/15/23 02/15/23 02/15/23 Range/Units 16:34 16:32 14:10 WBC (4.8-10.8) K/ul RBC (4.70-6.10) M/uL Hgb (14.0-18.0) g/dl Hct (42.0-52.0) % MCV (80.0-100.0) fL MCH (25.0-34.0) pg MCHC (32.0-36.0) g/dL RDW Std Deviation (36.4-46.3) fL RDW Coeff of Mars (11.5-14.5) % Plt Count (130-400) K/uL MPV (9.4-12.4) fL Immature Gran % (Auto) % Neut % (Auto) % Lymph % (Auto) % Spalding % (Auto) % Eos % (Auto) % Baso % (Auto) % Neut # (Auto) (1.40-6.50) K/uL Lymph # (Auto) (1.20-3.40) K/uL Spalding # (Auto) (0.11-0.59) K/uL Eos # (Auto) (0.00-0.50) K/uL Baso # (Auto) (0.00-0.20) K/uL Immature Gran # (Auto) (0.01-0.20) K/uL Sodium (136-145) mmol/L Potassium (3.5-5.1) mmol/L Chloride (98-107) mmol/L Carbon Dioxide (21-32) mmol/L Anion Gap (3-11) BUN (6-23) mg/dl Creatinine (0.6-1.4) mg/dl Est Cr Clr Drug Dosing Est GFR ( Amer) ml/min Est GFR (Non-Af Amer) ml/min BUN/Creatinine Ratio (10-20) Glucose (70-99(Fasting)) mg/dl Lactate 1.0 (0.4-2.0) mmol/L Calcium (8.6-10.3) mg/dl Magnesium (1.7-2.4) mg/dl Total Bilirubin (0.2-1.0) mg/dl Direct Bilirubin (0-0.2) mg/dl AST (13-39) U/L ALT (7-52) U/L Alkaline Phosphatase (34-104) U/L Total Creatine Kinase (30-223) U/L Troponin I High Sens (0-20) pg/ml Total Protein (6.0-8.3) gm/dl Albumin (3.4-5.0) gm/dl Procalcitonin (0-0.5) ng/ml Ethyl Alcohol mg/dL < 10.0 (<10.0) mg/dl Adenovirus (PCR) Not Detected (NotDetected) B. pertussis DNA (PCR) Not Detected (NotDetected) B.parapertussis DNA PCR Not Detected (NotDetected) C. pneumoniae DNA (PCR) Not Detected (NotDetected) Coronavirus OC43 (PCR) Not Detected (NotDetected) Coronavirus HKU1 (PCR) Not Detected (NotDetected) Coronavirus 229E (PCR) Not Detected (NotDetected) SARS-CoV-2 (PCR) Not Detected (NotDetected) Coronavirus NL63 (PCR) Not Detected (NotDetected) Human Metapneumovir PCR Not Detected (NotDetected) Influenza Type A (PCR) Not Detected (NotDetected) Influenza Type B (PCR) Not Detected (NotDetected) M. pneumoniae (PCR) Not Detected (NotDetected) Parainfluenza 1 (PCR) Not Detected (NotDetected) Parainfluenza 2 (PCR) Not Detected (NotDetected) Parainfluenza 3 (PCR) Not Detected (NotDetected) Parainfluenza 4 (PCR) Not Detected (NotDetected) RSV (PCR) Not Detected (NotDetected) Entero/Rhino (PCR) DETECTED A* (NotDetected) 02/15/23 02/15/23 02/15/23 Range/Units 14:10 14:10 14:10 WBC (4.8-10.8) K/ul RBC (4.70-6.10) M/uL Hgb (14.0-18.0) g/dl Hct (42.0-52.0) % MCV (80.0-100.0) fL MCH (25.0-34.0) pg MCHC (32.0-36.0) g/dL RDW Std Deviation (36.4-46.3) fL RDW Coeff of Mars (11.5-14.5) % Plt Count (130-400) K/uL MPV (9.4-12.4) fL Immature Gran % (Auto) % Neut % (Auto) % Lymph % (Auto) % Spalding % (Auto) % Eos % (Auto) % Baso % (Auto) % Neut # (Auto) (1.40-6.50) K/uL Lymph # (Auto) (1.20-3.40) K/uL Spalding # (Auto) (0.11-0.59) K/uL Eos # (Auto) (0.00-0.50) K/uL Baso # (Auto) (0.00-0.20) K/uL Immature Gran # (Auto) (0.01-0.20) K/uL Sodium 137 (136-145) mmol/L Potassium 4.1 (3.5-5.1) mmol/L Chloride 102 (98-107) mmol/L Carbon Dioxide 24 (21-32) mmol/L Anion Gap 11 (3-11) BUN 22 (6-23) mg/dl Creatinine 0.86 (0.6-1.4) mg/dl Est Cr Clr Drug Dosing Not Reportable Est GFR ( Amer) 115.6 ml/min Est GFR (Non-Af Amer) 99.7 ml/min BUN/Creatinine Ratio 25.6 H (10-20) Glucose 104 H (70-99(Fasting)) mg/dl Lactate 4.8 H* (0.4-2.0) mmol/L Calcium 9.7 (8.6-10.3) mg/dl Magnesium 2.0 (1.7-2.4) mg/dl Total Bilirubin 0.6 (0.2-1.0) mg/dl Direct Bilirubin 0.1 (0-0.2) mg/dl AST 22 (13-39) U/L ALT 18 (7-52) U/L Alkaline Phosphatase 112 H (34-104) U/L Total Creatine Kinase 100 (30-223) U/L Troponin I High Sens 23.0 H (0-20) pg/ml Total Protein 6.9 (6.0-8.3) gm/dl Albumin 4.1 (3.4-5.0) gm/dl Procalcitonin < 0.05 (0-0.5) ng/ml Ethyl Alcohol mg/dL (<10.0) mg/dl Adenovirus (PCR) (NotDetected) B. pertussis DNA (PCR) (NotDetected) B.parapertussis DNA PCR (NotDetected) C. pneumoniae DNA (PCR) (NotDetected) Coronavirus OC43 (PCR) (NotDetected) Coronavirus HKU1 (PCR) (NotDetected) Coronavirus 229E (PCR) (NotDetected) SARS-CoV-2 (PCR) (NotDetected) Coronavirus NL63 (PCR) (NotDetected) Human Metapneumovir PCR (NotDetected) Influenza Type A (PCR) (NotDetected) Influenza Type B (PCR) (NotDetected) M. pneumoniae (PCR) (NotDetected) Parainfluenza 1 (PCR) (NotDetected) Parainfluenza 2 (PCR) (NotDetected) Parainfluenza 3 (PCR) (NotDetected) Parainfluenza 4 (PCR) (NotDetected) RSV (PCR) (NotDetected) Entero/Rhino (PCR) (NotDetected) 02/15/23 Range/Units 14:10 WBC 15.96 H (4.8-10.8) K/ul RBC 3.59 L (4.70-6.10) M/uL Hgb 11.3 L (14.0-18.0) g/dl Hct 32.5 L (42.0-52.0) % MCV 90.5 (80.0-100.0) fL MCH 31.5 (25.0-34.0) pg MCHC 34.8 (32.0-36.0) g/dL RDW Std Deviation 44.5 (36.4-46.3) fL RDW Coeff of Mras 13.4 (11.5-14.5) % Plt Count 287 (130-400) K/uL MPV 10.1 (9.4-12.4) fL Immature Gran % (Auto) 0.6 % Neut % (Auto) 90.0 % Lymph % (Auto) 4.9 % Spalding % (Auto) 4.1 % Eos % (Auto) 0.1 % Baso % (Auto) 0.3 % Neut # (Auto) 14.35 H (1.40-6.50) K/uL Lymph # (Auto) 0.79 L (1.20-3.40) K/uL Spalding # (Auto) 0.66 H (0.11-0.59) K/uL Eos # (Auto) 0.02 (0.00-0.50) K/uL Baso # (Auto) 0.04 (0.00-0.20) K/uL Immature Gran # (Auto) 0.10 (0.01-0.20) K/uL Sodium (136-145) mmol/L Potassium (3.5-5.1) mmol/L Chloride (98-107) mmol/L Carbon Dioxide (21-32) mmol/L Anion Gap (3-11) BUN (6-23) mg/dl Creatinine (0.6-1.4) mg/dl Est Cr Clr Drug Dosing Est GFR ( Amer) ml/min Est GFR (Non-Af Amer) ml/min BUN/Creatinine Ratio (10-20) Glucose (70-99(Fasting)) mg/dl Lactate (0.4-2.0) mmol/L Calcium (8.6-10.3) mg/dl Magnesium (1.7-2.4) mg/dl Total Bilirubin (0.2-1.0) mg/dl Direct Bilirubin (0-0.2) mg/dl AST (13-39) U/L ALT (7-52) U/L Alkaline Phosphatase (34-104) U/L Total Creatine Kinase (30-223) U/L Troponin I High Sens (0-20) pg/ml Total Protein (6.0-8.3) gm/dl Albumin (3.4-5.0) gm/dl Procalcitonin (0-0.5) ng/ml Ethyl Alcohol mg/dL (<10.0) mg/dl Adenovirus (PCR) (NotDetected) B. pertussis DNA (PCR) (NotDetected) B.parapertussis DNA PCR (NotDetected) C. pneumoniae DNA (PCR) (NotDetected) Coronavirus OC43 (PCR) (NotDetected) Coronavirus HKU1 (PCR) (NotDetected) Coronavirus 229E (PCR) (NotDetected) SARS-CoV-2 (PCR) (NotDetected) Coronavirus NL63 (PCR) (NotDetected) Human Metapneumovir PCR (NotDetected) Influenza Type A (PCR) (NotDetected) Influenza Type B (PCR) (NotDetected) M. pneumoniae (PCR) (NotDetected) Parainfluenza 1 (PCR) (NotDetected) Parainfluenza 2 (PCR) (NotDetected) Parainfluenza 3 (PCR) (NotDetected) Parainfluenza 4 (PCR) (NotDetected) RSV (PCR) (NotDetected) Entero/Rhino (PCR) (NotDetected) Diagnostic Findings Ankle X-Ray 02/15/23 14:10 XR ankle LT min 3V routine CLINICAL HISTORY: foot swelling TECHNIQUE: 3 views of the left ankle were obtained. Comparison: None available at the time of this dictation. FINDINGS: No acute fractures are present. The joint spaces are well preserved. The ankle mortise is intact. Soft tissue swelling is seen about the ankle. IMPRESSION: Soft tissue swelling is seen without evidence of underlying bony abnormality. ACT 112: Negative or not required by law. Electronically signed by: Delaon Torres M.D. 02/15/2023 3:[address] 02/15/23 14:10 CT SCAN OF THE CERVICAL SPINE CLINICAL HISTORY: Trauma. COMPARISON STUDY: No priors. TECHNIQUE: CT scan of the cervical spine is performed from the skull base to the upper thoracic spine. Images are reviewed in the axial, sagittal, and coronal planes. IV contrast was not administered for this examination. A dose lowering technique was utilized adhering to the principles of ALARA. CT DOSE: 1086.09 mGy.cm FINDINGS: Skeletal structures: The skeletal structures are well mineralized. There is no evidence of fracture or subluxation involving the cervical spine. Vertebral body height and alignment are maintained. The odontoid process and lateral masses are intact. The atlantoaxial articulation is preserved. The spinous processes appear intact. There a right posterior 1st and 2nd rib fractures, best seen on sagittal images #19 and coronal image #43. Intervertebral discs: There is mild multilevel degenerative disc space narrowing, greatest at C5-C6. Central canal: Widely patent. Soft tissues: The prevertebral and paraspinous soft tissues are within normal limits. There is mild atherosclerotic calcification of the carotid bulbs. Calvarium: The visualized calvarium at the skull base appears intact. Brain parenchyma: Partially visualized brain parenchyma at the skull base is within normal limits. Sinuses and mastoids: There is mild mucosal thickening within the maxillary antra. The remaining visualized paranasal sinuses are clear. The mastoid air cells are well pneumatized. Dentition: There are numerous dental caries and periapical lucencies. Lung apices: Emphysematous change is noted at the apices. Apical lung parenchyma is otherwise clear as visualized. No apical pneumothorax is identified. IMPRESSION: 1. There is no evidence of fracture or subluxation involving the cervical spine. 2. Right posterior 1st and 2nd rib fractures. 3. Emphysema. 4. There are numerous dental caries and periapical lucencies. Nonemergent follow-up with dentistry is recommended. ACT 112: Negative or not required by law. Electronically signed by: Elijah Arvizu M.D. 02/15/2023 3:04 PM Chest X-Ray 02/15/23 14:10 XR chest 1V portable CLINICAL HISTORY: Sepsis. COMPARISON STUDY: Chest radiograph December 15, 2022. FINDINGS: There is an acute mildly displaced posterior right second rib fracture. Multiple old right-sided rib fractures are present. There is no pneumothorax or pleural effusion. There is no consolidation. Cardiac size is normal. Mediastinal contours are normal. IMPRESSION: Acute mildly displaced posterior right second rib fracture. No pneumothorax. ACT 112: Negative or not required by law. Electronically signed by: Thony Otto M.D. 02/15/2023 3:19 PM Foot X-Ray 02/15/23 14:10 LEFT FOOT 3 VIEWS CLINICAL HISTORY: Left foot swelling. FINDINGS: 3 views of the left foot are obtained. No prior studies are available for comparison at the time of dictation. The skeletal structures are well mineralized. There is a mildly displaced avulsion fracture at the base of the second proximal phalanx. No additional acute fracture is clearly seen. There is offset at the second tarsometatarsal articulation as well as widening between the base of the first and second metatarsals indicative of age-indeterminate Lisfranc injury. There is mild flattening and sclerosis of the third metatarsal head. Soft tissue edema is noted throughout the foot. An os trigonum is incidentally noted. IMPRESSION: 1. Avulsion fracture at the base of the second proximal phalanx. 2. No additional bony fracture is clearly identified. 3. There is evidence of age indeterminant Lisfranc injury. Orthopedic follow-up is advised. 4. Diffuse soft tissue swelling. Electronically signed by: Elijah Arvizu M.D. 02/15/2023 3:[address] 02/15/23 14:10 CT OF THE HEAD WITHOUT CONTRAST CLINICAL HISTORY: abrasion to face COMPARISON STUDY: Head CT December 15, 2022. TECHNIQUE: Helical axial images of the head were obtained without IV contrast. Automated exposure control was utilized for the study. A dose lowering technique was utilized adhering to the principles of ALARA. FINDINGS: No acute intracranial hemorrhage, midline shift or mass effect is present. The ventricular system is unremarkable. The basal cisterns are patent. No extra-axial collections are present. There are no findings to suggest acute dural sinus thrombosis or acute territorial infarct. A small right frontal scalp contusion is present. No calvarial fracture. IMPRESSION: 1. No acute intracranial findings. 2. Small right frontal scalp contusion. No calvarial fracture. ACT 112: Negative or not required by law. Electronically signed by: Thony Otto M.D. 02/15/2023 3:16 PM Abdomen/Pelvis CT 02/15/23 15:17 CT abd pelvis IV con only CLINICAL HISTORY: possible trauma TECHNIQUE: Helical axial images of the abdomen and pelvis were obtained and displayed. Automated dose lowering techniques and/or adjustment according to patient size were utilized for this exam. This exam was performed with intravenous contrast. COMPARISON: Comparison is made to CT abdomen pelvis 12/15/2022 FINDINGS: Lower chest: Bibasilar atelectasis versus scarring is seen. Liver: Unremarkable. No focal lesions are seen. Gallbladder and biliary tree: No calcified gallstones. Normal caliber wall. No intra- or extrahepatic biliary ductal dilation. Pancreas: Unremarkable, no focal lesions. Spleen: Unremarkable. Adrenals: Unremarkable. Kidneys and ureters: Unremarkable. Bladder: Diffuse homogeneous wall thickening is seen. Reproductive organs: Unremarkable. Bowel: Unremarkable. Lymph nodes Retroperitoneal: Subcentimeter lymph nodes are noted. Pelvic: Unremarkable. Mesenteric: Unremarkable. Peritoneum: Normal. Vessels: Atherosclerotic calcifications are seen. Abdominal wall: Unremarkable. Bones: Old healed rib fractures are seen. Degenerative changes are seen in the spine. IMPRESSION: No acute abnormalities in particular no evidence of acute fracture. ACT 112: Negative or not required by law. Electronically signed by: Delano Torres M.D. 02/15/2023 4:[address] 02/15/23 15:23 CT OF THE CHEST WITH IV CONTRAST CLINICAL HISTORY: Rib fractures. COMPARISON STUDY: Chest radiograph December 15, 2022 and February 15, 2023. TECHNIQUE: Following IV administration of 89 mL of Optiray, helical axial images of the chest were obtained. Sagittal and coronal reconstructions were viewed as well as maximal intensity projections on an independent 3-D workstation. Automated exposure control was utilized for the study. A dose lowering technique was utilized adhering to the principles of ALARA. CT DOSE: 1073.30 mGy.cm FINDINGS: There is no evidence for traumatic injury to the thoracic aorta. No mediastinal hematoma is present. The size of the heart is normal. There is no pericardial effusion. No pneumothorax or pleural effusion is present. Moderate upper lobe predominant emphysema is noted. There are no acute thoracic spine fracture. There is an acute nondisplaced fracture the posterior right first rib. There is an acute mildly displaced fracture of the posterior right second rib and a moderately displaced acute fracture of the posterior right third rib. Extrapleural hemorrhage is present. Additional right sided rib fractures are old. No acute left rib fractures are present. IMPRESSION: 1. No evidence for traumatic injury to the thoracic aorta. 2. Acute right first through third rib fractures. No pneumothorax. Small amount of associated extrapleural hemorrhage. 3. Emphysema. ACT 112: Negative or not required by law. Electronically signed by: Thony Otto M.D. 02/15/2023 3:58 PM Supervising Physician Co-Signing Physician Notes I personally saw and examined the patient. I verified all perkins points and agree with Shireen Gastelum PA-C with the following exceptions and/or additions: 52 year old male with schizophrenia found by police walking up [address]. Recent discharge from the [facility]. Apparently ?escaped from [facility] and staff did not know where he went. Unknown fall but multiple rib fractures. Patient reports 8/10 pain but this is mainly on his left foot which is swollen. O/E Alert and orientated x3, no current hallucination, suicidal or homicidal ideation, HS RRR, no murmurs, Chest CTAB, Abdo SNT, abrasion injuries to face, right shoulder, left elbow, right foot, left foot. Left foot with generalized swelling and pain on any movement. Pain on palpation over right upper chest. A/P Rib fractures - lidocaine patch, acetaminophen 1st line, tramadol 2nd line for pain. Incentive spirometry. Lisfranc injury to left foot - consult orthopedics Avulsion fracture base of 2nd proximal phalanx - walking boot Schizophrenia - continue his routine medications, consult psychiatry Leukocytosis - suspect a reaction to the fall, repeat with AM labs Fever - suspect secondary to entero/rhinovirus on biofire, droplet isolation precautions PG Care Time/CCT Total # of Minutes Spent Total Time Spent with Patient: Total time spent is greater than 50% in coordination of care (as documented) at patient's floor/unit and/or counseling patient: Coding Level of Care Code 84903 INT INP/OBS CARE 3/75MIN Diagnoses Fall W19.XXXA Rhinovirus infection B34.8 Rib fractures S22.49XA Fever R50.9 Leukocytosis D72.829 Foot fracture, left S92.902A Schizophrenia F20.9 Psychotic disorder F29 Depression F32.A
[2023-02-15 17:47] LABS: Adenovirus PCR Not Detected (NotDetected); Bordetella parapertussis PCR Not Detected (NotDetected); Bordetella pertussis PCR Not Detected (NotDetected); Chlamydia pneumoniae PCR Not Detected (NotDetected); Coronavirus 229E PCR Not Detected (NotDetected); Coronavirus CoV-2 (COVID19)PCR Not Detected (NotDetected); Coronavirus HKU1 PCR Not Detected (NotDetected); Coronavirus NL63 PCR Not Detected (NotDetected); Coronavirus OC43PCR Not Detected (NotDetected); Human Metapneumovirus PCR Not Detected (NotDetected); Influenza A PCR Not Detected (NotDetected); Influenza B PCR Not Detected (NotDetected); Mycoplasma pneumoniae PCR Not Detected (NotDetected); Parainfluenza Virus 1 PCR Not Detected (NotDetected); Parainfluenza Virus 2 PCR Not Detected (NotDetected); Parainfluenza Virus 3 PCR Not Detected (NotDetected); Parainfluenza Virus 4 PCR Not Detected (NotDetected); Respiratory Syncytial VirusPCR Not Detected (NotDetected)
[2023-02-15 17:49] LABS: Rhinovirus/Enterovirus PCR DETECTED (NotDetected)
[2023-02-15] MEDS ORDERED: ALUMINUM/MAGNESIUM SUSP 30 ML UDC PO PRN (18:41)
[2023-02-15] MEDS ORDERED: NICOTINE 14 MG/24 HR PATCH TD SCH (19:00)
[2023-02-15] MEDS: LIDOCAINE 5% 1 PATCH TD SCH (21:03)
[2023-02-15] MEDS: ENOXAPARIN INJ 40 MG/0.4 ML SYR SQ SCH (21:04)
[2023-02-15] MEDS: DOCUSATE SODIUM 100 MG CAP PO SCH (21:05)
[2023-02-15] MEDS: BENZTROPINE MESYLATE 1 MG TAB PO SCH (21:06)
[2023-02-15] MEDS: haloperidoL 5 MG TAB PO SCH (21:07)
[2023-02-15] MEDS ORDERED: Nursing to Pharmacy Communication SCH (21:30)
[2023-02-15 21:41] LABS: Appearance Urine Clear (Clear); Bilirubin Urine Negative (Negative); Blood Urine Negative (Negative); Color Urine Yellow; Glucose Urine UA Negative (Negative); Ketones Urine 1+ (Negative); Leukocyte Esterase Urine Negative (Negative); Nitrite Urine Negative (Negative); Protein Urine Negative (Negative); Specific Gravity Urine > 1.045 (1.000-1.030); Urobilinogen Urine Negative (Negative); pH Urine 6.5 (4.5-7.5)
[2023-02-15 22:19] LABS: Amphetamines+Metham, Urine Neg (Neg); Barbiturates, Urine Neg (Neg); Benzodiazepine, Urine Neg (Neg); Cocaine, Urine Neg (Neg); MDMA (Ecstacy), Urine Neg (Neg); Methadone, Urine Neg (Neg); Opiate, Urine Neg (Neg); Phencyclidine, Urine Neg (Neg)
[2023-02-16] MEDS: ACETAMINOPHEN 325 MG TAB PO PRN (02:57)
[2023-02-16 04:52] LABS: Hematocrit (blood only) 30.5 % (42.0-52.0); Hemoglobin 10.5 g/dl (14.0-18.0); Mean Corpuscular Hemoglobin 31.4 pg (25.0-34.0); Mean Corpuscular Hgb Conc 34.4 g/dL (32.0-36.0); Mean Corpuscular Volume 91.3 fL (80.0-100.0); Mean Platelet Volume 9.8 fL (9.4-12.4); Platelet Count 237 K/uL (130-400); RDW Coefficient of Variation 13.5 % (11.5-14.5); RDW Standard Deviation 45.5 fL (36.4-46.3); Red Blood Count 3.34 M/uL (4.70-6.10); White Blood Count 7.16 K/ul (4.8-10.8)
[2023-02-16 05:26] LABS: BUN Creatinine Ratio 33.3 (10-20); Calcium 8.6 mg/dl (8.6-10.3); Creatinine Clr Calc Pharmacy 153.1 ml/min; Est GFR (African American) 143.2 ml/min; Est GFR (Non-African American) 123.6 ml/min; Potassium 3.8 mmol/L (3.5-5.1)
[2023-02-16 06:38] LABS: Folate (Folic Acid),Ser orPlas 17.13 ng/ml (>5.38)
--- NOTE | 2023-02-16 06:57 | Orthopedic Consultation ---
Date of Service February 16, 2023 Assessment & Plan (1) Tarsometatarsal (joint) (ligament) sprain: (2) Fracture of proximal phalanx of toe of right foot: Plan 52-year-old male with schizophrenia and self injures behavior presents with a swollen foot after running barefoot. There are changes on x-ray consistent with a chronic tarsometatarsal joint sprain. He has a acute appearing proximal phalanx fracture of the toe. Recommend weightbearing as tolerated with a controlled active motion boot and crutches. Please consult orthotics. Consider repeat x-rays in 6 weeks, if he remains symptomatic. He can wean from the boot as tolerated. Recommend treating this edema with elevation and ice. No apparent injuries to his elbow. Please contact with further questions. History of Present Illness Reason for Consultation: Right foot injury, left elbow injury Requesting Physician: . Attending Physician: Gucci Gabriel MD 52-year-old male with history of schizophrenia, depression, psychotic disorder, admitted after being found wandering reports that he hurt his foot while att empting to run barefoot. This occurred yesterday. He denies any elbow issues today. On admission there was some concern about a left elbow swelling and pain. Patient reports no prior history of significant foot or elbow injuries. He says its painful to walk but he can do it. Allergies Allergy/AdvReac Type Severity Reaction Status Date / Time No Known Allergies Allergy Verified 11/07/22 11:50 Home Medications Medication Instructions Recorded Confirmed Type benztropine 1 mg tablet 1 mg PO HS 02/15/23 02/15/23 History cholecalciferol (vitamin D3) 50 50 mcg PO QAM 02/15/23 02/15/23 History mcg (2,000 unit) tablet (Vitamin D3) cyproheptadine 4 mg tablet 4 mg PO TID 02/15/23 02/15/23 History docusate sodium 100 mg capsule 200 mg PO BID 02/15/23 02/15/23 History haloperidol 10 mg tablet 10 mg PO QAM 02/15/23 02/15/23 History haloperidol 20 mg tablet 20 mg PO HS 02/15/23 02/15/23 History multivitamin with minerals (Daily 1 tab PO QAM 02/15/23 02/15/23 History Multivitamin-Minerals tablet) pantoprazole 40 mg tablet,delayed 40 mg PO QAM 02/15/23 02/15/23 History release venlafaxine 75 mg capsule,extended 75 mg PO QAM 02/15/23 02/15/23 History release 24 hr Past Med/Surg History Medical History Acute hyponatremia Schizophrenia Self-injurious behavior Social History Smoking Status: Current every day smoker Tobacco Type: Cigarettes Hx Alcohol Use: Yes Hx Substance Use: No Preferred Language: Turkmen Communication Ability: Effective Human Resources Psychologist Required: No Beliefs That Will Affect Care: None Current Living Situation: Homeless Feels Safe at Home: Yes Gender Identity: Male Assistive Devices: Glasses Review of Systems All systems reviewed & are unremarkable except as noted in HPI & below. Physical Exam General: He is calm and conversant. Cooperative. Oriented. RLE: His foot has edema from his toes to the midfoot. No evidence of ankle edema or effusion. There is no plantar ecchymosis. There are abrasions at his heel and about his metatarsal pad. The midfoot is tender to palpation diffusely. He does have some tenderness at the base of the first and second metatarsals. There is tenderness at the base of the second toe. Edema spreads to the first and second ray. Intact tibiotalar and subtalar motion. Pain with spring test. Neurovascular intact. Poor nail care. BUE: His upper extremities are without significant evidence of trauma. He has full active range of motion including pronation and supination about both elbows. He is nontender and there are no effusions. Constitutional WD/WN, vitals as above Respiratory normal respiratory effort; no respiratory distress Cardiovascular Extremities: normal capillary refill; no edema Chest (Breasts) Chest: normal inspection of chest Skin no rashes, warm and dry Results & Data Results & Data Laboratory Results H & H 02/15/23 02/16/23 Range/Units 14:10 04:32 Hgb 11.3 L 10.5 L (14.0-18.0) g/dl Hct 32.5 L 30.5 L (42.0-52.0) % Diagnostic Findings Left elbow x-ray: 3 views left elbow are reviewed. Agree with radiology that there is no evidence of trauma or fracture. Right foot: 3 views of the right foot nonweightbearing format were obtained previously. I agree with the radiologist that the AP view has widening the first and second metatarsal interspace. Chronicity is undetermined. There is no avulsion fragments. There is a degree of sclerosis and chronicity there. The oblique and lateral views show anatomic reduction of the tarsometatarsal joints. There is a small avulsion fragment at the base of the second proximal phalanx. PG Care Time/CCT Total # of Minutes Spent Total Time Spent with Patient: Total time spent is greater than 50% in coordination of care (as documented) at patient's floor/unit and/or counseling patient: Coding Level of Care Code 45479 OFFICE CONSULT LVL M Diagnoses Tarsometatarsal (joint) (ligament) sprain S93.629A Fracture of proximal phalanx of toe of right foot S92.911A Additional Codes Fx Foot - Phalanx or phalanges other than great toe: Phalanx or phalanges other than great toe [id number] ([id number])
--- NOTE | 2023-02-16 07:36 | XRay Report ---
XR elbow LT min 3V routine CLINICAL HISTORY: fall, eval fracture TECHNIQUE: 3 views of the left elbow were obtained. Comparison: None available at the time of this dictation. FINDINGS: There is no evidence of an acute fracture. Joint spaces are well-preserved. There is no prominence of the anterior or posterior fat pads to suggest an effusion. No soft tissue abnormality is seen. IMPRESSION: No evidence of acute osseous injury. ACT 112: Negative or not required by law. Electronically signed by: Delano Torres M.D. 02/16/2023 7:34 AM
[2023-02-16] MEDS ORDERED: SODIUM CHLORIDE 0.9% 1,000 ML IV ONE (07:40)
--- NOTE | 2023-02-16 07:47 | Hospitalist Progress Note ---
Date of Service February 16, 2023 Assessment & Plan (1) Fall: Plan: Found by police wandering [place] after discharge from the [facility] back to [facility] 02/15 With multiple RIGHT rib fractures, acute 2nd phalanx fx LEFT foot, elevated lactate (resolved), and elevated WBC count (resolved) Med/Tele for monitoring for arrhythmia, no evidence of such at this time Biofire testing POSITIVE for Rhino/Enterovirus, likely explains fever (no other evidence of localizable infectious source), droplet precautions Orthopedics consulted for acute fracture L foot, ?chronic lis franc fracture Ice, pain control with Tylenol/tramadol/lidocaine patches PT/OT consulted given fall and need for CAM boot/crutches (2) Schizophrenia: Plan: Recent inpatient stay at [facility], discharged 02/15, eloped from [place] during intake and found hurt by police Continue Haldol 10mg QAM/20mg HS, Effexor 75mg, Protonix 40mg daily, Colace, vitamin D, nicotine patch Continue bowel regimen to prevent constipation Psych consulted while inpatient stay given worsening evidence of active SI this afternoon, suicide precautions and 1:1 initiated (3) Rib fractures: Plan: Acute right first through third rib fractures. No pneumothorax. Small amount of associated extrapleural hemorrhage Incentive spirometer/cough/deep breathing, supplemental O2 as needed Pain control as above (4) Foot fracture, left: Plan: X-ray w/ avulsion fracture at the base of the second proximal phalanx, with evidence of age indeterminant Lisfranc injury. Tenderness to palpation/swelling, with acute fracture 2nd phalanx, 2/2 fall Pain control, ice, elevation Orthopedics recommends orthotic walking boot and crutches (5) Fever: Plan: Suspected 2nd to Rhino/enterovirus Blood cultures NGTD UA negative CXR no focal PNA Defer Abx (6) Rhinovirus infection: Plan: +Biofire testing Incentive spirometer, supportive care Droplet precautions (7) Leukocytosis: Plan: Suspected 2nd to fall/fractures, also with +Biofire testing as above Plan Continued inpatient stay Isolation/supportive care for rhinovirus/enterovirus, pain control/pulmonary toilet for rib fractures Ortho consulted for acute LEFT foot fracture PT/OT consultations Psych consulted, may need inpatient psych stay again given active SI and concerns from [facility] regarding patient's behavior Admission and Anticipated Discharge Date Admission Date: February 15, 2023 Subjective Patient without acute events overnight. This morning was feeling fairly well, a bit sore in areas that he fell, but no SOB, crushing chest pain, nausea, abdominal pain, lightheadedness. This afternoon feeling a bit more agitated and endorsing more SI, saying that he wants to jump from the bed to break his legs. Physical Exam Constitutional: WD/WN, vitals as above Respiratory: normal respiratory effort, lungs clear to auscultation Cardiovascular: RRR, no murmur, no edema Gastrointestinal (Abdomen): normal bowel sounds, soft, nontender, no hepatosplenomegaly Skin: no rashes, warm and dry (Left foot with generalized swelling, ecchymosis worst at left 2nd phalanx) Psychiatric: alert and oriented to self and situation, anxious affect Results & Data Results & Data Vital Signs (Past 12 Hours) Vital Signs Pulse Pulse Resp BP BP Pulse Ox Pulse Ox 02/16/23 06:00 77 14 105/65 100 02/16/23 05:23 64 02/16/23 04:00 79 17 107/55 L 98 02/16/23 02:10 76 21 100 02/16/23 02:00 71 19 02/16/23 02:00 118/72 02/16/23 01:50 68 15 02/16/23 01:40 72 24 99 02/16/23 01:30 66 21 95 02/16/23 01:20 80 13 02/16/23 01:18 11 L 02/16/23 00:20 100 02/16/23 00:10 99 02/16/23 00:01 15 100 02/16/23 00:01 121/68 02/15/23 23:50 74 15 02/15/23 23:40 85 23 02/15/23 23:30 77 15 02/15/23 23:20 73 12 02/15/23 23:10 76 12 100 02/15/23 23:00 79 14 97 02/15/23 22:50 78 11 L 90 02/15/23 22:40 76 12 02/15/23 22:30 71 12 02/15/23 22:20 69 16 02/15/23 22:10 72 15 99 02/15/23 22:01 72 10 L 100 02/15/23 22:01 112/61 02/15/23 22:00 70 16 96 02/15/23 21:50 71 11 L 97 02/15/23 21:40 69 11 L 100 02/15/23 21:36 72 11 L 100 02/15/23 21:30 76 12 02/15/23 21:20 79 02/15/23 21:10 82 14 02/15/23 21:00 71 11 L 02/15/23 20:50 67 11 L 02/15/23 20:40 73 17 02/15/23 20:30 72 14 02/15/23 20:20 72 15 02/15/23 20:10 71 12 02/15/23 20:00 75 12 02/15/23 19:50 70 11 L 02/15/23 21:34 73 20 100 02/15/23 20:00 72 18 109/68 98 02/15/23 20:00 96 O2 Del Method O2 Del Method 02/16/23 06:00 Room Air 02/16/23 05:23 02/16/23 04:00 Room Air 02/16/23 02:10 02/16/23 02:00 02/16/23 02:00 02/16/23 01:50 02/16/23 01:40 02/16/23 01:30 02/16/23 01:20 02/16/23 01:18 02/16/23 00:20 02/16/23 00:10 02/16/23 00:01 02/16/23 00:01 02/15/23 23:50 02/15/23 23:40 02/15/23 23:30 02/15/23 23:20 02/15/23 23:10 02/15/23 23:00 02/15/23 22:50 02/15/23 22:40 02/15/23 22:30 02/15/23 22:20 02/15/23 22:10 02/15/23 22:01 02/15/23 22:01 02/15/23 22:00 02/15/23 21:50 02/15/23 21:40 02/15/23 21:36 02/15/23 21:30 02/15/23 21:20 02/15/23 21:10 02/15/23 21:00 02/15/23 20:50 02/15/23 20:40 02/15/23 20:30 02/15/23 20:20 02/15/23 20:10 02/15/23 20:00 02/15/23 19:50 02/15/23 21:34 Room Air 02/15/23 20:00 Room Air 02/15/23 20:00 Room Air PG Care Time/CCT Total # of Minutes Spent Total Time Spent with Patient: Total time spent is greater than 50% in coordination of care (as documented) at patient's floor/unit and/or counseling patient: Coding Level of Care Code 23835 SUB INP/OBS CARE 3/50MIN Diagnoses Fall W19.XXXA Schizophrenia F20.9 Rib fractures S22.49XA Foot fracture, left S92.902A Fever R50.9 Rhinovirus infection B34.8 Leukocytosis D72.829
[2023-02-16] MEDS: CHOLECALCIFEROL 5,000 UNITS 125 MCG TAB PO SCH (08:08)
[2023-02-16] MEDS: PANTOprazole 40 MG TAB PO SCH (08:09)
[2023-02-16] MEDS: VENLAFAXINE HCL XR 75 MG CAPXR PO SCH (08:09)
[2023-02-16] MEDS: haloperidoL 5 MG TAB PO SCH ×2 (08:09→19:40)
[2023-02-16] MEDS: NICOTINE 14 MG/24 HR PATCH TD SCH (08:10)
[2023-02-16] MEDS: DOCUSATE SODIUM 100 MG CAP PO SCH ×2 (08:14→19:41)
[2023-02-16] MEDS: traMADol HCL 50 MG TABLET PO PRN ×2 (08:14→19:39)
--- NOTE | 2023-02-16 16:10 | Psychiatric Consultation ---
Date of Consultation February 16, 2023 Impression / Recommendations Impression 52 y/o man with schizophrenia who's spent about 3 days outside of psychiatric hospitals in the past 4 months. He's had multiple recent medication changes, the most recent for reasons currently unavailable. He is currently on low-dose haloperidol (1/4 of previous dose) and would like to add chlorpromazine. We strive to avoid use of multiple antipsychotics, but his history indicates this has often been necessary. He has tried a broad range of medications. I'm inclined to accede to his wishes and recommend resuming his old (from ca. 2 yr ago) regimen (1) Schizophrenia: Plan Increase haloperidol to 10 mg BID (half of his previous dose from 2020) Add chlorpromazine 25 mg TID (half of his previous dose from 2020) It seems pretty clear that psychiatric hospitalization has not been of much (or any) demonstrable benefit recently, and I can't recommend trying to pursue yet another admission. Psych History Identifying Data UMBERTO DAMIAN is a 52-year-old M with a history of schizophrenia, admitted on for []. Consult is by the hospitalist service for []. Chief Complaint "I just want to make my mind numb". History of Present Illness As part of a thorough review of the available medical records, I have read and confirmed the following note by the ED physician: "Patient was brought in by police as the patient was found outside without shoes stumbling along the road. Patient reportedly was recently discharged from the [facility] earlier today. Patient did have an IV established blood obtained along with CK and the patient did have an alcohol CT of the head cervical spine chest x-ray performed along with left ankle and foot x-rays. Patient was ordered 2 L of IV fluids in addition to IV Ofirmev. Initial CT report does not show any ICH but on CT cervical spine was noted the patient had first and second rib fractures. The patient did have a CT of the chest and abdomen pelvis obtained. I did go back and speak with the patient the patient has no reproducible posterior chest wall/rib pain. Patient's blood work shows a white count of 15 with mild anemia hemoglobin 11 with normal platelet count. Kidney function is unremarkable. The patient does have an elevated lactate of 4.8 with a troponin of 23. Patient does not complain of chest pains or shortness of breath. Procalcitonin is not elevated. Bio fire positive for enterorhinovirus alcohol negative. Patient CT of the chest does show the first through third posterior rib fractures. No hemothorax but extrapleural hemorrhage is noted. Patient's plain films do show a likely old Lisfranc injury and does have a second metatarsal base fracture. The patient heart rate did improve after reassessment after 30 cc/kg bolus the following note by the ED psychiatric nurse outreach case manager: "Umberto arrived with EMS and 2 [facility] police officers, Officer Rafaela completed 302 box A petitioning statement which reads as follows: "I was dispatched to the [facility] for a male to be stumbling and looked to be hurt. I made contact with the male, Umberto Damian. Fco stated he hasn't ate in 2 days and he was running from someone, but doesn't know who. Fco informed me he was hearing voices but couldn't tell me what the voices were saying." Supplemental information obtained from [facility] via staff at [facility] includes Umberto was just discharged from the [facility] this morning after a several month stay. Prior to his admission at the [facility], he was treated and discharged from [address] [place] [id number]. Today, staff at [facility] met with Umberto to update paperwork, they left the room for a period of time and upon returning Umberto was no longer there. Umberto has been homeless in the past, and he believes he is homeless, though it was confirmed he is a resident of [facility]." the following note by the psychiatric liaison nurse: "Spoke with Joann ([phone]) at [facility], she states that they have concerns about patient as he has been inpatient for so long and has not shown much improvement since his original acute presentation in October of 2022, she states the last two years he had lived at [facility] he had been stable and that if this is his new baseline they are unsure if they will be able to manage it, they held a bed the last few months but will just want updated on his prognosis during his admission to the medical floor - whether he goes to physical rehab due to his injuries or further psychiatric treatment is pursued. Thankful for the conversation. Patient seen for initial consult, alert and oriented x 3 - flat but cooperative, endorses SI with plan - when asking plan he points to his arm at some scars and states "I'll do this again" - denies HI, states he has hallucinations of "mauritian men in trench coats standing around the room", patient just discharged from the [facility] after a multi-month stay which began only days after a discharge from [facility] in the Spring, patient is presenting with the same behaviors and feelings that are chronic for him, when asking patient about what improved at the [facility] after all that time he states "well I got restful sleep and was able to try and put on weight", patient was discharged home to [facility] and then eloped yesterday - was found late at night by police with a number of injuries - patient states "I fell" but cannot elaborate further, patient feels his current medication regimen of "haldol and vitamins" is adequate but does state he would maybe like to try Thorazine but doesn't state why, appetite and sleep have been good per patient, he will be admitted to the medical floor for multiple fractures and plan can be discharge to [facility] when stable." and the following note by the hospitalist: "52yo male with PMHx significant for schizophrenia, depression, psychotic disorder, was recently discharged from the [facility] this morning where he had been for about 2-3 months for ongoing care and reportedly took a Lyft back to [facility] when during doing intake, worker left room for a moment per collateral history and patient was gone when they came back. Police found wandering [place] with abrasion to face/shoulder and reported ankle discomfort." Review of the medical record reveals that pt was hospitalized on the psychiatric unit here 11/06/2022 through 11/20/2022 during which he was started on clozapine. He presented to the ED on that same day reporting his usual symptoms and was discharged back to [facility]. The following day, 11/21/2022, he presented back to the ED reporting auditory hallucinations and requesting admission and was admitted to [facility]. Pt. carries diagnosis of S chizophrenia. Review of pertinent labs reveals they are significant for leukocytosis on admission that has normalized, normocytic, normochromic anemia, mild hypokalemia today not present at admission (?due to IV hydration), elevated troponin that has improved since admission, and positive enterovirus/rhinovirus PCR and for urine toxicology screen that was negative for all tested substrates. BAL was <10 mg/dL. Pt endorses above history but is able to add very little to it. He seems uncertain what happened that led to his injuries, and he can't tell me what happened with the clozapine on which he'd been discharged from here. He says the haloperidol he's now taking "seems kind of low" but that it has helped with auditory hallucinations. He says he'd like to take chlorpromazine because he th inks "it would numb my mind". He says he's been on it before but can tell me nothing about side effects, doses or why it was stopped. During a 2020 stay here he was taking haloperidol 20 mg BID and chlorpromazine 50 mg TID concurrently. It was during that stay that he was transitioned from haloperidol to paliperidone but chlorpramazine was still ordered at discharge. At some point during the interval between that admission and the most recent one here the chlorpromazine was stopped and he ended up on lumateperone. Earlier today pt was standing, naked, on his bed in response to auditory command hallucinations directing him to hurl himself to the ground. He was able to resist jumping off the bed (and says "I analilia like being naked"). Presents as very pleasant and polite. Past Psychiatric History Current Psychiatric Diagnosis: Schizophrenia Previous Psych Admissions: Many - multiple here, [facility], at least 2 in [place] Do You Have Access To A Gun?: No History of Previous Suicide Attempt: Yes Describe Attempts in the Past: seriously cut neck, ended up in ICU Past Medication Trials: Quetiapine -2018, stopped it prior to decompensating, attempting suicide by cutting his neck, and being admitted to the [facility] Risperidone Ziprasidone Haloperidol Chlorpromazine Paliperidone palmitate Lumateperone Allergies Allergy/AdvReac Type Severity Reaction Status Date / Time No Known Allergies Allergy Verified 11/07/22 11:50 Home Medications Medication Instructions Recorded Confirmed Type benztropine 1 mg tablet 1 mg PO HS 02/15/23 02/15/23 History cholecalciferol (vitamin D3) 50 50 mcg PO QAM 02/15/23 02/15/23 History mcg (2,000 unit) tablet (Vitamin D3) cyproheptadine 4 mg tablet 4 mg PO TID 02/15/23 02/15/23 History docusate sodium 100 mg capsule 200 mg PO BID 02/15/23 02/15/23 History haloperidol 10 mg tablet 10 mg PO QAM 02/15/23 02/15/23 History haloperidol 20 mg tablet 20 mg PO HS 02/15/23 02/15/23 History multivitamin with minerals (Daily 1 tab PO QAM 02/15/23 02/15/23 History Multivitamin-Minerals tablet) pantoprazole 40 mg tablet,delayed 40 mg PO QAM 02/15/23 02/15/23 History release venlafaxine 75 mg capsule,extended 75 mg PO QAM 02/15/23 02/15/23 History release 24 hr Patient History Medical History Acute hyponatremia Schizophrenia Self-injurious behavior Surgical History (Updated 02/16/23 @ 14:09 by Jesus Alberto Foote MD) No pertinent past surgical history Social History Smoking Status: Current every day smoker Tobacco Type: Cigarettes Hx Alcohol Use: Yes Hx Substance Use: No Preferred Language: Yoruba Communication Ability: Impaired Road Train Driver Required: No Beliefs That Will Affect Care: None Current Living Situation: Homeless Feels Safe at Home: Yes Gender Identity: Male Assistive Devices: None Physical Exam Psychiatric: Orientation: oriented to person, oriented to place and oriented to time; + not alert (drowsy) Apperance: appropriately dressed and appropriately groomed very thin Eye Contact: + fair eye contact Motor Behavior: + psychomotor retardation Speech: + abnormal rate/rhythm/volume of speech (slow, very quiet) Affect: + flat affect Mood: + dysphoric mood Thought Process: + looseness of associations and + concrete thought process Thought Content: + delusions Suicidal Thoughts: denies suicidal thoughts, denies suicidal plan and denies suicidal intent Homicidal Thoughts: denies homicidal thoughts Hallucinations: + auditory hallucinations (commands) and + visual hallucinations (people in black and white clothing) Cognition: recent memory grossly intact and remote memory grossly intact; + attention not intact Estimated Intelligence: average estimated intelligence Insight: + limited insight Judgment: + limited judgement Vital Signs (Past 24 Hours): Last Vital Signs Temp 36.5 C 02/16/23 15:46 Pulse 67 02/16/23 15:46 Resp 18 02/16/23 15:46 BP 117/75 02/16/23 15:46 Pulse Ox 98 02/16/23 15:46 O2 Del Method Room Air 02/16/23 15:46 Review of Systems Psychiatric: as per Subjective / HPI and + auditory hallucinations Results & Data (PSY) Medications Administered Acetaminophen (Acetaminophen 325 Mg Tab) 650 mg PO Q4H PRN PRN Reason: Pain or Fever Stop: 03/17/23 18:40 Last Admin: 02/16/23 02:57 Dose: 650 mg Documented By: THUY Benztropine Mesylate (Benztropine Mesylate 1 Mg Tab) 1 mg PO [facility] Stop: 03/17/23 20:59 Last Admin: 02/15/23 21:06 Dose: 1 mg Documented By: DENISSE Docusate Sodium (Docusate Sodium 100 Mg Cap) 200 mg PO BID [facility] Stop: 03/17/23 20:59 Last Admin: 02/16/23 08:14 Dose: 200 mg Documented By: Admin: 02/15/23 21:05 Dose: 200 mg Documented By: DENISSE Enoxaparin Sodium (Enoxaparin Inj 40 Mg/0.4 Ml Syr) 40 mg SQ Q24H [facility] Stop: 03/17/23 19:59 Last Admin: 02/15/23 21:04 Dose: 40 mg Documented By: DENISSE Haloperidol (Haloperidol 5 Mg Tab) 20 mg PO [facility] Stop: 03/17/23 20:59 Last Admin: 02/15/23 21:07 Dose: 20 mg Documented By: DENISSE Haloperidol (Haloperidol 5 Mg Tab) 10 mg PO QAM [facility] Stop: 03/18/23 08:59 Last Admin: 02/16/23 08:09 Dose: 10 mg Documented By: JIMENEZ Lidocaine (Lidocaine 5% 1 Patch) 1 patch TD [facility] Stop: 03/17/23 18:40 Last Admin: 02/15/23 21:03 Dose: 1 patch Documented By: DENISSE Misdez (Remove Lidoderm Patch) 1 each N/A DAILY@0900 [facility] Stop: 03/18/23 08:59 Last Admin: 02/16/23 08:22 Dose: 1 each Documented By: JIMENEZ Misedisaneous (Remove Nicoderm Patch) 1 each N/A DAILY@0859 [facility] Stop: 09/28/23 08:58 Last Admin: 02/16/23 08:21 Dose: 1 each Documented By: NRB Nicotine (Nicotine 14 Mg/24 Hr Patch) 14 mg TD [facility] Stop: 03/18/23 08:59 Last Admin: 02/16/23 08:10 Dose: 14 mg Documented By: NRViolette Pantoprazole Sodium (Pantoprazole 40 Mg Tab) 40 mg PO [facility] Stop: 03/18/23 08:59 Last Admin: 02/16/23 08:09 Dose: 40 mg Documented By: NRViolette Tramadol HCl (Tramadol Hcl 50 Mg Tablet) 50 mg PO Q4H PRN PRN Reason: Pain Stop: 03/17/23 21:24 Last Admin: 02/16/23 08:14 Dose: 50 mg Documented By: JIMENEZ Venlafaxine HCl (Venlafaxine Hcl Xr 75 Mg Capxr) 75 mg PO [facility] Stop: 03/18/23 08:59 Last Admin: 02/16/23 08:09 Dose: 75 mg Documented By: JIMENEZ Vitamin D (Cholecalciferol 5,000 Units 125 Mcg Tab) 5,000 units PO [facility] Stop: 03/18/23 08:59 Last Admin: 02/16/23 08:08 Dose: 5,000 units Documented By: NRViolette Coding Level of Care Code 23418 IN/OBS CONSULT LVL 4,60M Diagnoses Schizophrenia F20.9 Time Spent (min) 63
[2023-02-16] MEDS: LIDOCAINE 5% 1 PATCH TD SCH (19:39)
[2023-02-16] MEDS: ENOXAPARIN INJ 40 MG/0.4 ML SYR SQ SCH (19:40)
[2023-02-16] MEDS: BENZTROPINE MESYLATE 1 MG TAB PO SCH (19:41)
[2023-02-16] MEDS ORDERED: COUGH DROP (SUGAR FREE) LOZ 24 LOZ/1 BOX BUCCAL PRN (22:48)
[2023-02-17] MEDS: traMADol HCL 50 MG TABLET PO PRN (03:08)
[2023-02-17] MEDS ORDERED: chlorproMAZINE HCL 25 MG TAB PO ONE (03:23)
--- NOTE | 2023-02-17 06:12 | Electrocardiogram Report ---
Test Reason : Blood Pressure : / mmHG Vent. Rate : 107 BPM Atrial Rate : 107 BPM P-R Int : 172 ms QRS Dur : 078 ms QT Int : 340 ms P-R-T Axes : 079 042 077 degrees QTc Int : 453 ms Sinus tachycardia Possible Left atrial enlargement Nonspecific T wave abnormality When compared with ECG of 06-NOV-2022 14:32, Vent. rate has increased BY 43 BPM Nonspecific T wave abnormality now evident in Lateral leads QT has lengthened Confirmed by Fam Feliciano ([id number]) on 02/17/2023 6:12:13 AM Referred By: REFERRED SELF Confirmed By:Fam Feliciano
[2023-02-17] MEDS: VENLAFAXINE HCL XR 75 MG CAPXR PO SCH (08:32)
[2023-02-17] MEDS: haloperidoL 5 MG TAB PO SCH ×2 (08:32→21:43)
[2023-02-17] MEDS: PANTOprazole 40 MG TAB PO SCH (08:32)
[2023-02-17] MEDS: CHOLECALCIFEROL 5,000 UNITS 125 MCG TAB PO SCH (08:32)
[2023-02-17] MEDS: NICOTINE 14 MG/24 HR PATCH TD SCH (08:32)
--- NOTE | 2023-02-17 09:03 | Hospitalist Progress Note ---
Date of Service February 17, 2023 Assessment & Plan (1) Fall: Plan: Found by police wandering [place] after discharge from the [facility] back to [facility] 02/15 With multiple RIGHT rib fractures, acute 2nd phalanx fx LEFT foot, elevated lactate (resolved), and elevated WBC count (resolved) Med/Tele for monitoring for arrhythmia, no evidence of such at this time Biofire testing POSITIVE for Rhino/Enterovirus, likely explains fever (no other evidence of localizable infectious source), droplet precautions Orthopedics consulted for acute fracture L foot, ?chronic lis franc fracture Ice, pain control with Tylenol/tramadol/lidocaine patches PT/OT consulted given fall and need for CAM boot/crutches, not recommending rehab on discharge (2) Schizophrenia: Plan: Recent inpatient stay at [facility], discharged 02/15, eloped from [facility] during intake and found hurt by police Continue Haldol 10mg QAM/10mg HS, Effexor 75mg, Protonix 40mg daily, Colace, vitamin D, nicotine patch Continue bowel regimen to prevent constipation Psych consulted while inpatient stay given worsening evidence of active SI this afternoon, suicide precautions and 1:1 initiated, did restart Thorazine 25mg TID Will need to confer with liaison, Psych, and [facility] regarding disposition, CM aware and assisting with this (3) Rib fractures: Plan: Acute right first through third rib fractures. No pneumothorax. Small amount of associated extrapleural hemorrhage Incentive spirometer/cough/deep breathing, supplemental O2 as needed Pain control as above (4) Foot fracture, left: Plan: X-ray w/ avulsion fracture at the base of the second proximal phalanx, with evidence of age indeterminant Lisfranc injury. Tenderness to palpation/swelling, with acute fracture 2nd phalanx, 2/2 fall Pain control, ice, elevation Orthopedics recommends orthotic walking boot and crutches/walker (5) Fever: Plan: Suspected 2nd to Rhino/enterovirus Blood cultures NGTD UA negative CXR no focal PNA Defer Abx (6) Rhinovirus infection: Plan: +Biofire testing Incentive spirometer, supportive care Droplet precautions (7) Leukocytosis: Plan: Suspected 2nd to fall/fractures, also with +Biofire testing as above (8) Severe malnutrition: Plan: Noted to have 13.3% weight loss in 3 months, goal BMI >18.5, nutrition consult appreciated, CBEs BID and safe tray for diet Plan Continued inpatient stay Isolation/supportive care for rhinovirus/enterovirus, pain control/pulmonary toilet for rib fractures Ortho consulted for acute LEFT foot fracture PT/OT consultations appreciated, no rehab on discharge Dispo pending ongoing evaluations and conversations with Jonnie Benjamin Admission and Anticipated Discharge Date Admission Date: February 15, 2023 Subjective Patient seen while he was walking with therapy. More calm this Am than yesterday afternoon, following directions and denying unsteadiness or pain. Endorses visual hallucinations, denies current active SI but this waxes and wanes. Physical Exam Constitutional: WD/WN, vitals as above Skin: no rashes, warm and dry (left foot boot in place) Psychiatric: A+Ox3, euthymic affect alert and oriented to self and situation, euthymic affect Results & Data Results & Data Vital Signs (Past 12 Hours) Vital Signs Temp Pulse Pulse Resp BP BP Pulse Ox 02/17/23 08:06 36.9 C 99 H 16 92/56 L 99 02/17/23 05:31 36.7 C 99 H 20 101/66 99 02/16/23 22:00 79 02/16/23 22:51 36.8 C 84 20 96/56 L 98 02/16/23 21:38 O2 Del Method 02/17/23 08:06 Room Air 02/17/23 05:31 Room Air 02/16/23 22:00 02/16/23 22:51 Room Air 02/16/23 21:38 Room Air PG Care Time/CCT Total # of Minutes Spent Total Time Spent with Patient: Total time spent is greater than 50% in coordination of care (as documented) at patient's floor/unit and/or counseling patient: Coding Level of Care Code 87944 SUB INP/OBS CARE 2/35MIN Diagnoses Fall W19.XXXA Encounter type: initial encounter Schizophrenia F20.9 Rib fractures S22.41XA Encounter type: initial encounter Fracture type: closed Laterality: right Foot fracture, left S92.902A Encounter type: initial encounter Fracture type: closed Fever R50.9 Rhinovirus infection B34.8 Leukocytosis D72.829 Severe malnutrition E43 (1) Fall Encounter type: initial encounter Qualified Code(s): W19.XXXA - Unspecified fall, initial encounter (3) Rib fractures Encounter type: initial encounter Fracture type: closed Laterality: right Qualified Code(s): S22.41XA - Multiple fractures of ribs, right side, initial encounter for closed fracture (4) Foot fracture, left Encounter type: initial encounter Fracture type: closed Qualified Code(s): S92.902A - Unspecified fracture of left foot, initial encounter for closed fracture
[2023-02-17] MEDS: DOCUSATE SODIUM 100 MG CAP PO SCH ×2 (11:15→21:42)
[2023-02-17] MEDS: chlorproMAZINE HCL 25 MG TAB PO SCH ×3 (11:15→21:48)
--- NOTE | 2023-02-17 15:36 | Discharge Summary ---
Discharge Summary Date of Service February 17, 2023 Admission HPI Per Admitting Provider 52yo male with PMHx significant for schizophrenia, depression, psychotic disorder, was recently discharged from the [facility] this morning where he had been for about 2-3 months for ongoing care and reportedly took a Lyft back to [facility] when during doing intake, worker left room for a moment per collateral history and patient was gone when they came back. Police found wandering [place] with abrasion to face/shoulder and reported ankle discomfort. Patient evaluated in room A6. Reports calling for a ride from the [facility] to [facility] but then he reports he wanted to go on a run and fell, causing pain to his foot at present (reports 2nd toe most painful), however noting rib fractures (not painful on exam) as well as noted abrasions to his other foot and his left elbow. He reports he is not suicidal or homicidal, feels mood is stable at present. Denies feeling much fever, improving since tylenol as well as heart rate. Denies shortness of breath or cough, but discuss he has a viral process on biofire (positive Entero/Rhinovirus) and that we will be admitting for pain control, therapy evaluations and orthopedics consultation but will also have psych see him while inpatient. He notes he prefers [facility] if needed, however doesn't appear to need acute inpatient psych treatment at present time and mood currently stable. He would like some ice for his foot if possible and possibly compression he notes. Ate all his meal and reports good appetite, no abdominal pain reported. Will continue bowel regimen given reports of constipation at baseline. Previous meds in system listing clonidine 0.1mg BID, clozapine 25mg HS, lorazepam 0.5mg BID, trazodone 100mg HS. Discharge summary from [place] reviewed, patient discharged on Haldol 10mg QAM, 20mg HS, Effexor 75mg, cyproheptadine 4mg TID for appetite stimulant as well as Protonix 40mg daily, Colace, vitamin D, nicotine patch. Summary of [facility] indicating patient with diagnoses chronic paranoid schizophrenia, major depressive disorder as well as marijuana use disorder. ER Course: WBC elevation to 15.9k, temp 38.8C, tachycardic to the 140s with lactic 4.8--> 1.0 after 2L NSS IVF, IV Tylenol and dose of Ativan. Procalcitonin negative. Blood cultures pending CT head no acute intracranial findings. small R frontal scalp contusion. No fracture. CTAP without acute abnormalities/fracture. Chest CT noting acute RIGHT 1st-3rd rib fractures with small amt extrapleural hemorrhage. No PTX. Emphysema noted. EKG w/ sinus tachycardia 107bpm, nonspecific TW abn lateral leads, QT lengthened (453ms) Biofire pending Order for UDS/UA/cx ordered. Admission Exam Per Admitting Provider General: chronically ill appearing male resting in bed, NAD HEENT: contusion R frontal scalp, multiple abrasions to face noted, poor dentition, mmm, trachea midline Chest: nontender to palpation (even in site of rib fractures) Resp: fine crackles bilaterally, no wheezing/rales, on room air CV: regular rate/rhythm, no significant m/r/g, trace pedal edema (worsened edema in left foot), pulses palpable GI: +BS, soft/NT, no guarding/rigidity : no diaz MSK/Neuro/skin: follows commands, no focal deficits/slurred speech, no facial droop/slurred speech LEFT elbow with abrasions, swelling, ROM intact, denies pain on palpation LEFT foot with increased swelling compared to the right, tenderness to palpation mid foot/worse 2nd-3rd toes, lateral aspect RIGHT foot with scattered abrasions/scant bleeding from fall, no active cellulitis/warmth Psych: alert to person/place/time, cooperative with exam, denies any SI/HI, hallucinations or voices at present, no agitation Principal Dx & Hospital Course #1 = Principal Diagnosis (1) Fall: Found by police wandering [place] after discharge from the [facility] back to [facility] 02/15 With multiple RIGHT rib fractures, acute 2nd phalanx fx LEFT foot, elevated lactate (resolved), and elevated WBC count (resolved) Med/Tele for monitoring for arrhythmia, no evidence of such at this time Biofire testing POSITIVE for Rhino/Enterovirus, likely explains fever (no other evidence of localizable infectious source), droplet precautions Orthopedics consulted for acute fracture L foot, ?chronic lis franc fracture Ice, pain control with Tylenol/tramadol/lidocaine patches PT/OT consulted given fall and need for CAM boot/crutches, not recommending rehab on discharge (2) Schizophrenia: Recent inpatient stay at [facility], discharged 02/15, eloped from [facility] during intake and found hurt by police Continue Haldol 10mg QAM/10mg HS, Effexor 75mg, Protonix 40mg daily, Colace, vitamin D, nicotine patch Continue bowel regimen to prevent constipation Psych consulted while inpatient stay given worsening evidence of active SI this afternoon, suicide precautions and 1:1 initiated, did restart Thorazine 25mg TID Discharge today to [facility] Psych wing (3) Rib fractures: Acute right first through third rib fractures. No pneumothorax. Small amount of associated extrapleural hemorrhage Incentive spirometer/cough/deep breathing, supplemental O2 as needed Pain control as above (4) Foot fracture, left: X-ray w/ avulsion fracture at the base of the second proximal phalanx, with evidence of age indeterminant Lisfranc injury. Tenderness to palpation/swelling, with acute fracture 2nd phalanx, 2/2 fall Pain control, ice, elevation Orthopedics recommends orthotic walking boot and crutches/walker (5) Fever: Suspected 2nd to Rhino/enterovirus Blood cultures NGTD UA negative CXR no focal PNA Defer Abx (6) Rhinovirus infection: +Biofire testing Incentive spirometer, supportive care Droplet precautions (7) Leukocytosis: Suspected 2nd to fall/fractures, also with +Biofire testing as above (8) Severe malnutrition: Noted to have 13.3% weight loss in 3 months, goal BMI >18.5, nutrition consult appreciated, CBEs BID and safe tray for diet Plan Dispo to [facility] Psych Unit Discharge Exam Constitutional WD/WN, vitals as above Skin abrasions to knees, left foot swollen with boot in place Psychiatric A+Ox3, euthymic affect Updated Medication List Medication Instructions Recorded Confirmed Type benztropine 1 mg tablet 1 mg PO HS 02/15/23 02/15/23 History cholecalciferol (vitamin D3) 50 50 mcg PO QAM 02/15/23 02/15/23 History mcg (2,000 unit) tablet (Vitamin D3) cyproheptadine 4 mg tablet 4 mg PO TID 02/15/23 02/15/23 History docusate sodium 100 mg capsule 200 mg PO BID 02/15/23 02/15/23 History haloperidol 10 mg tablet 10 mg PO QAM 02/15/23 02/15/23 History haloperidol 20 mg tablet 20 mg PO HS 02/15/23 02/15/23 History multivitamin with minerals (Daily 1 tab PO QAM 02/15/23 02/15/23 History Multivitamin-Minerals tablet) pantoprazole 40 mg tablet,delayed 40 mg PO QAM 02/15/23 02/15/23 History release venlafaxine 75 mg capsule,extended 75 mg PO QAM 02/15/23 02/15/23 History release 24 hr Hospital Stay Data Consultations 02/15/23 16:25 ED Decision to Admit Stat 02/15/23 18:41 Consult Orthopedic Surgery Routine Consult Psychiatry Routine 02/15/23 21:51 Consult Behavioral Health Liaison Routine Diagnostic Imagining Performed 02/15/23 14:10 CT cervical spine wo con Stat CT head/brain wo con Stat 02/15/23 15:17 CT abd pelvis IV con only Stat 02/15/23 15:23 CT chest diagnostic w con Stat Total Time Total Time Spent Total Time Spent (In Minutes): 40 mins Coding Level of Care Code 48407 INP/OBS DISCH >30 MIN Diagnoses Fall W19.XXXA Encounter type: initial encounter Schizophrenia F20.9 Rib fractures S22.41XA Encounter type: initial encounter Fracture type: closed Laterality: right Foot fracture, left S92.902A Encounter type: initial encounter Fracture type: closed Fever R50.9 Rhinovirus infection B34.8 Leukocytosis D72.829 Severe malnutrition E43
--- NOTE | 2023-02-17 18:13 | Psychiatric Progress Note ---
Date of Service February 17, 2023 Impression / Recommendations Impression 52 y/o man with schizophrenia who's spent about 3 days outside of psychiatric hospitals in the past 4 months. He's had multiple recent medication changes, the most recent for reasons currently unavailable. He is currently on low-dose haloperidol (1/4 of previous dose) and would like to add chlorpromazine. 02/17/2023: Pt appears clearly to be tolerating recent increase in haloperidol and addition of chlorpromazine, but no noticeable benefit has accrued. 02/16/2023: We strive to avoid use of multiple antipsychotics, but his history indicates this has often been necessary. He has tried a broad range of medica tions. I'm inclined to accede to his wishes and recommend resuming his old (from ca. 2 yr ago) regimen (1) Schizophrenia: Plan 02/17/2023: * Increase haloperidol to 20 mg BID (historical dose) * Increase chlorpromazine to 50 mg TID (historical dose) 02/16/2023: Increase haloperidol to 10 mg BID (half of his previous dose from 2020) Add chlorpromazine 25 mg TID (half of his previous dose from 2020) It seems pretty clear that psychiatric hospitalization has not been of much (or any) demonstrable benefit recently, and I can't recommend trying to pursue yet another admission. Inventory Assets Strengths: voluntary Needs: safety and stabilization, medication adjustment, additional coping skills Suicide Risk Level Suicide Risk Level: Moderate (q15 min suicide checks) Suicide Risk Level Comments: Pt voices no suicidal thoughts or wishes. He does, though, have command auditory hallucinations that instruct him to do various things that are usually dangerous and on which he occasionally acts. Risk Factors Assessment Male: Yes : Yes Do You Have Access To A Gun?: No Health Problems: Yes Mental Health Diagnoses: Yes Substance Use Disorders: No Previous Attempt: Yes Previous Psychiatric Hospitalization: Yes Protective Factors Assessment : No Responsible for Young Children: No Employed: No Stable Relationships: No Supportive Family: No Interval History Identifying Information CASEY DAMIAN is a 52-year-old M with a history of schizophrenia, admitted on02/15/2023 for multiple injuries. Consult is by the hospitalist service for med management, hx schizophrenia. Chief Complaint "I just want to numb my mind". Subjective Subjective Patient was seen & assessed and interval progress reviewed in a multidisciplinary team meeting with psychiatric liaison nursing and social work. For details, see the "Impression" section. Physical Exam Psychiatric Orientation: oriented to person, oriented to place and oriented to time; + not alert (drowsy) Apperance: appropriately dressed and appropriately groomed Eye Contact: + fair eye contact Motor Behavior: + psychomotor retardation Speech: + abnormal rate/rhythm/volume of speech (slow, very quiet) Affect: + flat affect Mood: + dysphoric mood Thought Process: + looseness of associations and + concrete thought process Thought Content: + delusions Suicidal Thoughts: denies suicidal thoughts, denies suicidal plan and denies suicidal intent Homicidal Thoughts: denies homicidal thoughts Hallucinations: + auditory hallucinations (commands) and + visual hallucinations (people in black and white clothing) Cognition: recent memory grossly intact and remote memory grossly intact; + attention not intact Estimated Intelligence: average estimated intelligence Insight: + limited insight Judgment: + limited judgement Vital Signs (Past 24 Hours) Last Vital Signs Temp 36.7 C 02/17/23 11:02 Pulse 79 02/17/23 14:00 Resp 18 02/17/23 11:02 BP 92/55 L 02/17/23 11:02 Pulse Ox 98 02/17/23 11:02 O2 Del Method Room Air 02/17/23 11:02 Results & Data ([facility]) Current Inpatient Medications Current Inpatient Medications: Current Inpatient Medications Acetaminophen (Acetaminophen 325 Mg Tab) 650 mg PO Q4H PRN PRN Reason: Pain or Fever Stop: 03/17/23 18:40 Last Admin: 02/16/23 02:57 Dose: 650 mg Al Hydrox/Mg Hydrox/Simethicone (Aluminum/Magnesium Susp 30 Ml Udc) 15 ml PO Q4H PRN PRN Reason: Dyspepsia Stop: 03/17/23 18:40 Benztropine Mesylate (Benztropine Mesylate 1 Mg Tab) 1 mg PO HS JOSEMANUEL Stop: 03/17/23 20:59 Last Admin: 02/16/23 19:41 Dose: 1 mg Chlorpromazine HCl (Chlorpromazine Hcl 25 Mg Tab) 25 mg PO TID JOSEMANUEL Stop: 03/19/23 08:59 Last Admin: 02/17/23 14:14 Dose: 25 mg Docusate Sodium (Docusate Sodium 100 Mg Cap) 200 mg PO BID JOSEMANUEL Stop: 03/17/23 20:59 Last Admin: 02/17/23 11:15 Dose: 200 mg Enoxaparin Sodium (Enoxaparin Inj 40 Mg/0.4 Ml Syr) 40 mg SQ Q24H [facility] Stop: 03/17/23 19:59 Last Admin: 02/16/23 19:40 Dose: 40 mg Haloperidol (Haloperidol 5 Mg Tab) 10 mg PO QAM [facility] Stop: 03/18/23 08:59 Last Admin: 02/17/23 08:32 Dose: 10 mg Haloperidol (Haloperidol 5 Mg Tab) 10 mg PO HS [facility] Stop: 03/19/23 20:59 Lidocaine (Lidocaine 5% 1 Patch) 1 patch TD HS [facility] Stop: 03/17/23 18:40 Last Admin: 02/16/23 19:39 Dose: 1 patch Menthol (Cough Drop (Sugar Free) Kaden 24 Kaden/1 Box) 1 kaden BUCCAL PRN PRN PRN Reason: Sore Throat Stop: 03/18/23 22:47 Miscellaneous (Remove Lidoderm Patch) 1 each N/A DAILY@0900 [facility] Stop: 03/18/23 08:59 Last Admin: 02/17/23 08:33 Dose: 1 each Miscellaneous (Remove Nicoderm Patch) 1 each N/A DAILY@0859 [facility] Stop: 03/18/23 08:58 Last Admin: 02/17/23 08:32 Dose: 1 each Nicotine (Nicotine 14 Mg/24 Hr Patch) 14 [facility] Stop: 03/18/23 08:59 Last Admin: 02/17/23 08:32 Dose: 14 mg Pantoprazole Sodium (Pantoprazole 40 Mg Tab) 40 mg [facility] [place] Stop: 03/18/23 08:59 Last Admin: 02/17/23 08:32 Dose: 40 mg Tramadol HCl (Tramadol Hcl 50 Mg Tablet) 50 mg PO Q4H PRN PRN Reason: Pain Stop: 03/17/23 21:24 Last Admin: 02/17/23 03:08 Dose: 50 mg Venlafaxine HCl (Venlafaxine Hcl Xr 75 Mg Capxr) 75 mg PO QAM [facility] Stop: 03/18/23 08:59 Last Admin: 02/17/23 08:32 Dose: 75 mg Vitamin D (Cholecalciferol 5,000 Units 125 Mcg Tab) 5,000 units PO [facility] [place] Stop: 03/18/23 08:59 Last Admin: 02/17/23 08:32 Dose: 5,000 units
[2023-02-17] MEDS: ENOXAPARIN INJ 40 MG/0.4 ML SYR SQ SCH (21:39)
[2023-02-17] MEDS: BENZTROPINE MESYLATE 1 MG TAB PO SCH (21:41)
[2023-02-17] MEDS: LIDOCAINE 5% 1 PATCH TD SCH (21:43)
[2023-02-17] MEDS: ACETAMINOPHEN 325 MG TAB PO PRN (22:04)
[2023-02-18] MEDS: ACETAMINOPHEN 325 MG TAB PO PRN (05:11)
[2023-02-18] MEDS: traMADol HCL 50 MG TABLET PO PRN (08:33)
[2023-02-18] MEDS: CHOLECALCIFEROL 5,000 UNITS 125 MCG TAB PO SCH (08:34)
[2023-02-18] MEDS: DOCUSATE SODIUM 100 MG CAP PO SCH ×2 (08:34→22:19)
[2023-02-18] MEDS: VENLAFAXINE HCL XR 75 MG CAPXR PO SCH (08:34)
[2023-02-18] MEDS: chlorproMAZINE HCL 25 MG TAB PO SCH ×3 (08:34→22:09)
[2023-02-18] MEDS: haloperidoL 5 MG TAB PO SCH ×2 (08:34→22:10)
[2023-02-18] MEDS: PANTOprazole 40 MG TAB PO SCH (08:35)
[2023-02-18] MEDS: NICOTINE 14 MG/24 HR PATCH TD SCH (08:35)
--- NOTE | 2023-02-18 12:41 | Hospitalist Progress Note ---
Date of Service February 18, 2023 Assessment & Plan (1) Fall: Plan: Found by police wandering [place] after discharge from the [facility] back to [facility] 02/15 With multiple RIGHT rib fractures, acute 2nd phalanx fx LEFT foot, elevated lactate (resolved), and elevated WBC count (resolved) Med/Tele for monitoring for arrhythmia, no evidence of such at this time Biofire testing POSITIVE for Rhino/Enterovirus, likely explains fever (no other evidence of localizable infectious source), droplet precautions Orthopedics consulted for acute fracture L foot, ?chronic lis franc fracture Ice, pain control with Tylenol/tramadol/lidocaine patches PT/OT consulted given fall and need for CAM boot/crutches, not recommending rehab on discharge (2) Schizophrenia: Plan: Recent inpatient stay at [facility], discharged 02/15, eloped from [facility] during intake and found hurt by police Continue Haldol 10mg QAM/10mg HS, Effexor 75mg, Protonix 40mg daily, Colace, vitamin D, nicotine patch Continue bowel regimen to prevent constipation Psych consulted while inpatient stay given worsening evidence of active SI this afternoon, suicide precautions and 1:1 initiated, continue Thorazine 25mg TID Plan for admission to our Psych unit on discharge, however needs to isolate per Psych/Infection Control (3) Rib fractures: Plan: Acute right first through third rib fractures. No pneumothorax. Small amount of associated extrapleural hemorrhage Incentive spirometer/cough/deep breathing, supplemental O2 as needed Pain control as above (4) Foot fracture, left: Plan: X-ray w/ avulsion fracture at the base of the second proximal phalanx, with evidence of age indeterminant Lisfranc injury. Tenderness to palpation/swelling, with acute fracture 2nd phalanx, 2/2 fall Pain control, ice, elevation Orthopedics recommends orthotic walking boot and crutches/walker (5) Fever: Plan: Suspected 2nd to Rhino/enterovirus Blood cultures NGTD UA negative CXR no focal PNA Defer Abx (6) Rhinovirus infection: Plan: +Biofire testing Incentive spirometer, supportive care Droplet precautions (7) Leukocytosis: Plan: Suspected 2nd to fall/fractures, also with +Biofire testing as above (8) Severe malnutrition: Plan: Noted to have 13.3% weight loss in 3 months, goal BMI >18.5, nutrition consult appreciated, CBEs BID and safe tray for diet Plan Continued inpatient stay Isolation/supportive care for rhinovirus/enterovirus, pain control/pulmonary toilet for rib fractures Ortho consulted for acute LEFT foot fracture PT/OT consultations appreciated, no rehab on discharge Dispo to Psych when isolation complete Admission and Anticipated Discharge Date Admission Date: February 15, 2023 Subjective No acute events overnight. No SOB, chest pain, nasuea, abdominal pain. Endorses right shoulder pain. Physical Exam Constitutional: WD/WN, vitals as above Respiratory: normal respiratory effort, lungs clear to auscultation Cardiovascular: RRR, no murmur, no edema Skin: no rashes, warm and dry Psychiatric: A+Ox3, euthymic affect Results & Data Results & Data Vital Signs (Past 12 Hours) Vital Signs Temp Pulse Pulse Resp BP Pulse Ox O2 Del Method 02/18/23 11:15 37 C 77 18 100/58 L 97 Room Air 02/18/23 08:20 36.9 C 84 16 107/62 96 Room Air 02/18/23 07:50 75 02/18/23 01:17 78 02/18/23 00:41 36.6 C 82 20 100/62 96 Room Air PG Care Time/CCT Total # of Minutes Spent Total Time Spent with Patient: Total time spent is greater than 50% in coordination of care (as documented) at patient's floor/unit and/or counseling patient: Coding Level of Care Code 16336 SUB INP/OBS CARE 1/25MIN Diagnoses Fall W19.XXXA Encounter type: initial encounter Schizophrenia F20.9 Rib fractures S22.41XA Encounter type: initial encounter Fracture type: closed Laterality: right Foot fracture, left S92.902A Encounter type: initial encounter Fracture type: closed Fever R50.9 Rhinovirus infection B34.8 Leukocytosis D72.829 Severe malnutrition E43 (1) Fall Encounter type: initial encounter Qualified Code(s): W19.XXXA - Unspecified fall, initial encounter (3) Rib fractures Encounter type: initial encounter Fracture type: closed Laterality: right Qualified Code(s): S22.41XA - Multiple fractures of ribs, right side, initial encounter for closed fracture (4) Foot fracture, left Encounter type: initial encounter Fracture type: closed Qualified Code(s): S92.902A - Unspecified fracture of left foot, initial encounter for closed fracture
[2023-02-18] MEDS: ENOXAPARIN INJ 40 MG/0.4 ML SYR SQ SCH (22:08)
[2023-02-18] MEDS: BENZTROPINE MESYLATE 1 MG TAB PO SCH (22:09)
[2023-02-18] MEDS: LIDOCAINE 5% 1 PATCH TD SCH (22:11)
--- NOTE | 2023-02-19 06:06 | Electrocardiogram Report ---
Test Reason : Blood Pressure : / mmHG Vent. Rate : 075 BPM Atrial Rate : 075 BPM P-R Int : 176 ms QRS Dur : 072 ms QT Int : 424 ms P-R-T Axes : 075 061 063 degrees QTc Int : 473 ms Normal sinus rhythm Normal ECG When compared with ECG of 15-FEB-2023 15:07, No significant change was found Confirmed by Fam Feliciano ([id number]) on 02/19/2023 6:06:10 AM Referred By: REFERRED SELF Confirmed By:Fam Feliciano
[2023-02-19] MEDS: VENLAFAXINE HCL XR 75 MG CAPXR PO SCH (08:27)
[2023-02-19] MEDS: NICOTINE 14 MG/24 HR PATCH TD SCH (08:27)
[2023-02-19] MEDS: PANTOprazole 40 MG TAB PO SCH (08:27)
[2023-02-19] MEDS: haloperidoL 5 MG TAB PO SCH ×2 (08:27→21:05)
[2023-02-19] MEDS: CHOLECALCIFEROL 5,000 UNITS 125 MCG TAB PO SCH (08:27)
[2023-02-19] MEDS: chlorproMAZINE HCL 25 MG TAB PO SCH ×3 (08:27→21:05)
[2023-02-19] MEDS: DOCUSATE SODIUM 100 MG CAP PO SCH ×2 (08:31→21:09)
--- NOTE | 2023-02-19 13:10 | Hospitalist Progress Note ---
Date of Service February 19, 2023 Assessment & Plan (1) Fall: Plan: Patient was Found by police wandering [place] after discharge from the [facility] back to [facility] 02/15 Found to have multiple RIGHT rib fractures, acute 2nd phalanx fx LEFT foot, elevated lactate (resolved), and elevated WBC count (resolved) Med/Tele for monitoring for arrhythmia, no evidence of such at this time Biofire testing POSITIVE for Rhino/Enterovirus, likely explains fever (no other evidence of localizable infectious source), droplet precautions Orthopedics consulted for acute fracture L foot, ?chronic lis franc fracture They recommend Ice, pain control with Tylenol/tramadol/lidocaine patches PT/OT consulted given fall and need for CAM boot/crutches, not recommending rehab on discharge (2) Schizophrenia: Plan: Recent inpatient stay at [facility], discharged 02/15, eloped from [facility] during intake and found hurt by police Per Psyc, increase his haldol to 20mg BID and Chlorpromazine 50mg TID, which have been his usual dose in the past Continue Effexor 75mg, Protonix 40mg daily, Colace, vitamin D, nicotine patch Continue bowel regimen to prevent constipation Continue 1;1 No plans for inpatient psych Disposition is unclear for now He may end up going back to his [facility], although the staff there expressed a reservation given that he lives in one story and may not be physically able to climb stairs (3) Rib fractures: Plan: Acute right first through third rib fractures. No pneumothorax. Small amount of associated extrapleural hemorrhage Incentive spirometer/cough/deep breathing, supplemental O2 as needed Pain control as above (4) Foot fracture, left: Plan: X-ray w/ avulsion fracture at the base of the second proximal phalanx, with evidence of age indeterminant Lisfranc injury. Tenderness to palpation/swelling, with acute fracture 2nd phalanx, 2/2 fall Pain control, ice, elevation Orthopedics recommends orthotic walking boot and crutches/walker (5) Fever: Plan: Suspected 2nd to Rhino/enterovirus Blood cultures NGTD UA negative CXR no focal PNA Defer Abx (6) Rhinovirus infection: Plan: +Biofire testing Incentive spirometer, supportive care Droplet precautions (7) Leukocytosis: Plan: Suspected 2nd to fall/fractures, also with +Biofire testing as above (8) Severe malnutrition: Plan: Noted to have 13.3% weight loss in 3 months, goal BMI >18.5, nutrition consult appreciated, CBEs BID and safe tray for diet Plan Continued inpatient stay Isolation/supportive care for rhinovirus/enterovirus, pain control/pulmonary toilet for rib fractures Ortho consulted for acute LEFT foot fracture PT/OT consultations appreciated, no rehab on discharge He may end up going back to his [facility], although the staff there expressed a reservation given that he lives in one story and may not be physically able to climb stairs Admission and Anticipated Discharge Date Admission Date: February 15, 2023 Subjective patient seen and examined, denies any new complaints, denies any sucidal thoughts, but endorses hallucination Review of Systems Review of Systems: All systems reviewed are negative, apart from the ones contained in the history. Physical Exam Physical Exam: The patient is awake, alert and oriented 3, thin looking HEENT--PERRL, EOMI, mucous membranes and oropharynx mildly dry Neck--supple. No JVD. No bruits. Thyroid normal, trachea midline, no adenopathy. Heart--normal S1 and S2. No murmurs, rubs or gallops. Lungs--clear bilaterally, no respiratory distress, no accessory muscle use. Abdomen--normal bowel sounds and soft. Mild epigastric and left sided abdominal pain Extremities--no cyanosis or clubbing. No edema. Dermatologic--normal skin turgor, normal color, no abnormal lymph nodes, no rash. Neurologic--cranial nerves II through XII grossly intact. Rheumatologic--normal range of motion. Psychiatric--normal affect. Results & Data Results & Data Vital Signs (Past 12 Hours) Vital Signs Temp Pulse Resp BP Pulse Ox O2 Del Method 02/19/23 07:25 98.1 F 89 17 120/71 97 Room Air PG Care Time/CCT Total # of Minutes Spent Total Time Spent with Patient: Total time spent is greater than 50% in coordination of care (as documented) at patient's floor/unit and/or counseling patient: Coding Level of Care Code 99791 SUB INP/OBS CARE 2/35MIN Diagnoses Fall W19.XXXA Encounter type: initial encounter Schizophrenia F20.9 Rib fractures S22.41XA Encounter type: initial encounter Fracture type: closed Laterality: right Foot fracture, left S92.902A Encounter type: initial encounter Fracture type: closed Fever R50.9 Rhinovirus infection B34.8 Leukocytosis D72.829 Severe malnutrition E43 Time Spent (min) 35 (1) Fall Encounter type: initial encounter Qualified Code(s): W19.XXXA - Unspecified fall, initial encounter (3) Rib fractures Encounter type: initial encounter Fracture type: closed Laterality: right Qualified Code(s): S22.41XA - Multiple fractures of ribs, right side, initial encounter for closed fracture (4) Foot fracture, left Encounter type: initial encounter Fracture type: closed Qualified Code(s): S92.902A - Unspecified fracture of left foot, initial encounter for closed fracture
[2023-02-19] MEDS: ACETAMINOPHEN 325 MG TAB PO PRN (15:03)
[2023-02-19] MEDS: LIDOCAINE 5% 1 PATCH TD SCH (21:04)
[2023-02-19] MEDS: ENOXAPARIN INJ 40 MG/0.4 ML SYR SQ SCH (21:04)
[2023-02-19] MEDS: BENZTROPINE MESYLATE 1 MG TAB PO SCH (21:05)
[2023-02-19] MEDS ORDERED: LORazepam 2 MG/1 ML VIAL IV PRN (22:39)
[2023-02-19] MEDS: MELATONIN 3 MG TAB PO PRN (23:50)
[2023-02-20 09:12] LABS: Hematocrit (blood only) 28.8 % (42.0-52.0); Hemoglobin 9.6 g/dl (14.0-18.0); Mean Corpuscular Hgb Conc 33.3 g/dL (32.0-36.0); Mean Corpuscular Volume 92.9 fL (80.0-100.0); Mean Platelet Volume 9.4 fL (9.4-12.4); Platelet Count 245 K/uL (130-400); RDW Coefficient of Variation 13.3 % (11.5-14.5); RDW Standard Deviation 45.1 fL (36.4-46.3); White Blood Count 5.41 K/ul (4.8-10.8)
[2023-02-20 09:58] LABS: Calcium 8.3 mg/dl (8.6-10.3); Potassium 3.9 mmol/L (3.5-5.1)
[2023-02-20] MEDS: chlorproMAZINE HCL 25 MG TAB PO SCH ×3 (10:00→20:52)
[2023-02-20] MEDS: NICOTINE 14 MG/24 HR PATCH TD SCH (10:00)
[2023-02-20] MEDS: haloperidoL 5 MG TAB PO SCH ×2 (10:00→20:53)
[2023-02-20] MEDS: VENLAFAXINE HCL XR 75 MG CAPXR PO SCH (10:00)
[2023-02-20] MEDS: CHOLECALCIFEROL 5,000 UNITS 125 MCG TAB PO SCH (10:00)
[2023-02-20] MEDS: PANTOprazole 40 MG TAB PO SCH (10:00)
[2023-02-20] MEDS: DOCUSATE SODIUM 100 MG CAP PO SCH ×2 (10:01→20:52)
[2023-02-20 10:03] LABS: Creatinine Clr Calc Pharmacy 132.4 ml/min; Est GFR (African American) 134.9 ml/min; Est GFR (Non-African American) 116.4 ml/min
--- NOTE | 2023-02-20 12:43 | Hospitalist Progress Note ---
Date of Service February 20, 2023 Assessment & Plan (1) Fall: Plan: Patient was Found by police wandering [place] after discharge from the [facility] back to [facility] 02/15 Found to have multiple RIGHT rib fractures, acute 2nd phalanx fx LEFT foot, elevated lactate (resolved), and elevated WBC count (resolved) Med/Tele for monitoring for arrhythmia, no evidence of such at this time Biofire testing POSITIVE for Rhino/Enterovirus, droplet precautions (can be discontinued 02/22) Orthopedics consulted for acute fracture L foot, ?chronic lis franc fracture They recommend Ice, pain control with Tylenol/tramadol/lidocaine patches PT/OT consulted given fall and need for CAM boot/crutches, not recommending rehab on discharge (2) Schizophrenia: Plan: Recent inpatient stay at [facility], discharged 02/15, eloped from [facility] during intake and found hurt by police Per Psyc, increase his haldol to 20mg BID and Chlorpromazine 50mg TID, which have been his usual dose in the past Continue Effexor 75mg, Protonix 40mg daily, Colace, vitamin D, nicotine patch Continue bowel regimen to prevent constipation Continue 1;1 No plans for inpatient psych Disposition is unclear for now He may end up going back to his [facility] place, although the staff there expressed a reservation given that he lives in one story and may not be physically able to climb stairs Will continue to work with PT (3) Rib fractures: Plan: Acute right first through third rib fractures. No pneumothorax. Small amount of associated extrapleural hemorrhage Incentive spirometer/cough/deep breathing, supplemental O2 as needed Pain control as above (4) Foot fracture, left: Plan: X-ray w/ avulsion fracture at the base of the second proximal phalanx, with evidence of age indeterminant Lisfranc injury. Tenderness to palpation/swelling, with acute fracture 2nd phalanx, 2/2 fall Pain control, ice, elevation Orthopedics recommends orthotic walking boot and crutches/walker (5) Fever: Plan: Suspected 2nd to Rhino/enterovirus Blood cultures NGTD UA negative CXR no focal PNA Defer Abx (6) Rhinovirus infection: Plan: +Biofire testing Incentive spirometer, supportive care Droplet precautions (7) Leukocytosis: Plan: Suspected 2nd to fall/fractures, also with +Biofire testing as above (8) Severe malnutrition: Plan: Noted to have 13.3% weight loss in 3 months, goal BMI >18.5, nutrition consult a ppreciated, CBEs BID and safe tray for diet Plan Continued inpatient stay Isolation/supportive care for rhinovirus/enterovirus, pain control/pulmonary toilet for rib fractures Ortho consulted for acute LEFT foot fracture PT/OT consultations appreciated, no rehab on discharge He may end up going back to his [facility] place, although the staff there expressed a reservation given that he lives in one story and may not be physically able to climb stairs Admission and Anticipated Discharge Date Admission Date: February 15, 2023 Subjective patient seen and examined, denies any new complaints, denies any sucidal thoughts, but endorses hallucination Review of Systems Review of Systems: All systems reviewed are negative, apart from the ones contained in the history. Physical Exam Physical Exam: The patient is awake, alert and oriented 3, thin looking HEENT--PERRL, EOMI, mucous membranes and oropharynx mildly dry Neck--supple. No JVD. No bruits. Thyroid normal, trachea midline, no adenopathy. Heart--normal S1 and S2. No murmurs, rubs or gallops. Lungs--clear bilaterally, no respiratory distress, no accessory muscle use. Abdomen--normal bowel sounds and soft. Mild epigastric and left sided abdominal pain Extremities--no cyanosis or clubbing. No edema. Dermatologic--normal skin turgor, normal color, no abnormal lymph nodes, no rash. Neurologic--cranial nerves II through XII grossly intact. Rheumatologic--normal range of motion. Psychiatric--normal affect. Results & Data Results & Data Vital Signs (Past 12 Hours) Vital Signs Temp Pulse Resp BP Pulse Ox O2 Del Method 02/20/23 07:03 98.1 F 70 18 134/77 99 Room Air PG Care Time/CCT Total # of Minutes Spent Total Time Spent with Patient: Total time spent is greater than 50% in coordination of care (as documented) at patient's floor/unit and/or counseling patient: Coding Level of Care Code 09795 SUB INP/OBS CARE 2/35MIN Diagnoses Fall W19.XXXA Encounter type: initial encounter Schizophrenia F20.9 Rib fractures S22.41XA Encounter type: initial encounter Fracture type: closed Laterality: right Foot fracture, left S92.902A Encounter type: initial encounter Fracture type: closed Fever R50.9 Rhinovirus infection B34.8 Leukocytosis D72.829 Severe malnutrition E43 Time Spent (min) 35 (1) Fall Encounter type: initial encounter Qualified Code(s): W19.XXXA - Unspecified fall, initial encounter (3) Rib fractures Encounter type: initial encounter Fracture type: closed Laterality: right Qualified Code(s): S22.41XA - Multiple fractures of ribs, right side, initial encounter for closed fracture (4) Foot fracture, left Encounter type: initial encounter Fracture type: closed Qualified Code(s): S92.902A - Unspecified fracture of left foot, initial encounter for closed fracture
[2023-02-20] MEDS: ACETAMINOPHEN 325 MG TAB PO PRN (20:53)
[2023-02-20] MEDS: ENOXAPARIN INJ 40 MG/0.4 ML SYR SQ SCH (20:54)
[2023-02-20] MEDS: LIDOCAINE 5% 1 PATCH TD SCH (20:55)
[2023-02-20] MEDS: BENZTROPINE MESYLATE 1 MG TAB PO SCH (20:56)
[2023-02-21] MEDS: VENLAFAXINE HCL XR 75 MG CAPXR PO SCH (10:03)
[2023-02-21] MEDS: CHOLECALCIFEROL 5,000 UNITS 125 MCG TAB PO SCH (10:03)
[2023-02-21] MEDS: chlorproMAZINE HCL 25 MG TAB PO SCH ×3 (10:03→20:18)
[2023-02-21] MEDS: haloperidoL 5 MG TAB PO SCH ×2 (10:03→20:18)
[2023-02-21] MEDS: PANTOprazole 40 MG TAB PO SCH (10:03)
[2023-02-21] MEDS: DOCUSATE SODIUM 100 MG CAP PO SCH ×2 (10:07→20:21)
[2023-02-21] MEDS: NICOTINE 14 MG/24 HR PATCH TD SCH (10:57)
--- NOTE | 2023-02-21 11:54 | Hospitalist Progress Note ---
Date of Service February 21, 2023 Assessment & Plan (1) Fall: Plan: Patient was Found by police wandering [place] after discharge from the [facility] back to [facility] 02/15 Found to have multiple RIGHT rib fractures, acute 2nd phalanx fx LEFT foot, elevated lactate (resolved), and elevated WBC count (resolved) Med/Tele for monitoring for arrhythmia, no evidence of such at this time Biofire testing POSITIVE for Rhino/Enterovirus, droplet precautions (can be discontinued 02/22) Orthopedics consulted for acute fracture L foot, ?chronic lis franc fracture They recommend Ice, pain control with Tylenol/tramadol/lidocaine patches PT/OT consulted given fall and need for CAM boot/crutches, not recommending rehab on discharge (2) Schizophrenia: Plan: Recent inpatient stay at [facility], discharged 02/15, eloped from [facility] during intake and found hurt by police Per Psyc, increase his haldol to 20mg BID and Chlorpromazine 50mg TID, which have been his usual dose in the past (please maintain this dose upon discharge) Continue Effexor 75mg, Protonix 40mg daily, Colace, vitamin D, nicotine patch Continue bowel regimen to prevent constipation Continue 1;1 No plans for inpatient psych He may end up going back to his [facility] place, although the staff there expressed a reservation given that he lives in one story and may not be physically able to climb stairs Will continue to work with PT (3) Rib fractures: Plan: Acute right first through third rib fractures. No pneumothorax. Small amount of associated extrapleural hemorrhage Incentive spirometer/cough/deep breathing, supplemental O2 as needed Pain control as above (4) Foot fracture, left: Plan: X-ray w/ avulsion fracture at the base of the second proximal phalanx, with evidence of age indeterminant Lisfranc injury. Tenderness to palpation/swelling, with acute fracture 2nd phalanx, 2/2 fall Pain control, ice, elevation Orthopedics recommends orthotic walking boot and crutches/walker (5) Fever: Plan: Suspected 2nd to Rhino/enterovirus Blood cultures NGTD UA negative CXR no focal PNA Defer Abx (6) Rhinovirus infection: Plan: +Biofire testing Incentive spirometer, supportive care Droplet precautions (7) Leukocytosis: Plan: Suspected 2nd to fall/fractures, also with +Biofire testing as above (8) Severe malnutrition: Plan: Noted to have 13.3% weight loss in 3 months, goal BMI >18.5, nutrition consult appreciated, CBEs BID and safe tray for diet Plan Continued inpatient stay Isolation/supportive care for rhinovirus/enterovirus, pain control/pulmonary toilet for rib fractures Ortho consulted for acute LEFT foot fracture PT/OT consultations appreciated, no rehab on discharge He may end up going back to his [facility] place, although the staff there expressed a reservation given that he lives in one story and may not be physically able to climb stairs Patient still claims he is homeless, but if [employer] can take him back, we can send him back tomorrow, Wednesday Admission and Anticipated Discharge Date Admission Date: February 15, 2023 Subjective patient seen and examined, denies any new complaints, denies any sucidal thoughts, still claims he is homeless Review of Systems Review of Systems: All systems reviewed are negative, apart from the ones contained in the history. Physical Exam Physical Exam: The patient is awake, alert and oriented 3, thin looking HEENT--PERRL, EOMI, mucous membranes and oropharynx mildly dry Neck--supple. No JVD. No bruits. Thyroid normal, trachea midline, no adenopathy. Heart--normal S1 and S2. No murmurs, rubs or gallops. Lungs--clear bilaterally, no respiratory distress, no accessory muscle use. Abdomen--normal bowel sounds and soft. Mild epigastric and left sided abdominal pain Extremities--no cyanosis or clubbing. No edema. Dermatologic--normal skin turgor, normal color, no abnormal lymph nodes, no rash. Neurologic--cranial nerves II through XII grossly intact. Rheumatologic--normal range of motion. Psychiatric--normal affect. Results & Data Results & Data Vital Signs (Past 12 Hours) Vital Signs Temp Pulse Resp BP Pulse Ox O2 Del Method 02/21/23 07:31 97.9 F 72 16 108/71 97 Room Air PG Care Time/CCT Total # of Minutes Spent Total Time Spent with Patient: Total time spent is greater than 50% in coordination of care (as documented) at patient's floor/unit and/or counseling patient: Coding Level of Care Code 20995 SUB INP/OBS CARE MIN Diagnoses Fall W19.XXXA Encounter type: initial encounter Schizophrenia F20.9 Rib fractures S22.41XA Encounter type: initial encounter Fracture type: closed Laterality: right Foot fracture, left S92.902A Encounter type: initial encounter Fracture type: closed Fever R50.9 Rhinovirus infection B34.8 Leukocytosis D72.829 Severe malnutrition E43 Time Spent (min) 35 (1) Fall Encounter type: initial encounter Qualified Code(s): W19.XXXA - Unspecified fall, initial encounter (3) Rib fractures Encounter type: initial encounter Fracture type: closed Laterality: right Qualified Code(s): S22.41XA - Multiple fractures of ribs, right side, initial encounter for closed fracture (4) Foot fracture, left Encounter type: initial encounter Fracture type: closed Qualified Code(s): S92.902A - Unspecified fracture of left foot, initial encounter for closed fracture
--- NOTE | 2023-02-21 15:49 | Psychiatric Progress Note ---
Date of Service February 21, 2023 Impression / Recommendations Impression Agree with assessment per Dr. Moralez: 52 y/o man with schizophrenia who's spent about 3 days outside of psychiatric hospitals in the past 4 months. He's had multiple recent medication changes, the most recent for reasons currently unavailable. He is currently on low-dose haloperidol (1/4 of previous dose) and would like to add chlorpromazine. 02/21/2023: Improving mood and lessening of psychosis with titration of haldol and Thorazine. Remains on droplet precautions due to RSV. No apparent side effects from haldol or thorazine. Agree with 's that dual antipsychotic treatment is reasonable given multiple prior failed antipsychotic monotherapy trials (>6 including clozapine) and previous stability on this combination and his desire to take this combination of medications improving likelihood of adherence and stability. 02/17/2023: Pt appears clearly to be tolerating recent increase in haloperidol and addition of chlorpromazine, but no noticeable benefit has accrued. 02/16/2023: We strive to avoid use of multiple antipsychotics, but his history indicates this has often been necessary. He has tried a broad range of medications. I'm inclined to accede to his wishes and recommend resuming his old (from ca. 2 yr ago) regimen Overall, I spent a total of 45 minutes with this case including review of chart records, review of labwork, direct evaluation of the patient at bedside, counseling the patient, discussion of the patient with the Nurse and with the hospitalist provider, discussion with the psychiatric liason during clinical rounds, and documentation in the electronic health record. (1) Schizophrenia: Plan 02/21/2023: Continue current psychiatric medications. Consider trial off 1:1 given no current command AH with q15 minute checks given his history of wandering, as psychiatric symptoms are improving and he is hoping to be able to return to [facility]. 02/17/2023: * Increase haloperidol to 20 mg BID (historical dose) * Increase chlorpromazine to 50 mg TID (historical dose) 02/16/2023: Increase haloperidol to 10 mg BID (half of his previous dose from 2020) Add chlorpromazine 25 mg TID (half of his previous dose from 2020) It seems pretty clear that psychiatric hospitalization has not been of much (or any) demonstrable benefit recently, and I can't recommend trying to pursue yet another admission. Inventory Assets Strengths: voluntary Needs: safety and stabilization, medication adjustment, additional coping skills Risk Factors Assessment Male: Yes : Yes Do You Have Access To A Gun?: No Health Problems: Yes Mental Health Diagnoses: Yes Substance Use Disorders: No Previous Attempt: Yes Previous Psychiatric Hospitalization: Yes Protective Factors Assessment : No Responsible for Young Children: No Employed: No Stable Relationships: No Supportive Family: No Interval History Identifying Information CASEY DAMIAN is a 52-year-old M with a history of schizophrenia, admitted on02/15/2023 for multiple injuries. Consult is by the hospitalist service for med management, hx schizophrenia. Chief Complaint "I like the other people there". Subjective Subjective Patient was seen & assessed and interval progress reviewed. Has been taking psychiatric and other medications as prescribed. Has been walking a lot in the halls, using boot on his left foot without pain. Today reports his mood is "ok" and feels the haldol and thorazine are helping him. Denies any side effects except sometimes feeling a little tired but likes taking the thorazine three times a day. Still has intermittent, intrusive SI at times but only lasts for a few minutes and without any intent. Wants to return to [facility] stating he feels he would be able to remain safe there and wants to be around the other people who live there as he gets along well with them. States he's been sleeping and eating well. Denies foot pain when his boot is on, thinks he could walk up the stairs to his room. Recalls that he was running away from [facility] when he fell and hurt his foot and ribs because "someone told me it was Federal property" and he felt he needed to leave. Now agrees that [facility] is not federally property and that he is not in trouble. Denies any delusions about being in trouble or needing to go to [facility]. Physical Exam Psychiatric Orientation: alert (drowsy), oriented to person, oriented to place and oriented to time (initially thought it was late January, agreed it was now Feb, knows year) Apperance: appropriately dressed and appropriately groomed Eye Contact: + fair eye contact Motor Behavior: no abnormal motor movements Speech: normal rate/rhythm/volume of speech (some pauses, quiet) Affect: + flat affect Mood: no depressed mood and no anxious mood Thought Process: clear/coherent thought process and + concrete thought process Thought Content: reality based without delusions Suicidal Thoughts: denies suicidal thoughts (reports intermittent SI at times), denies suicidal plan and denies suicidal intent Homicidal Thoughts: denies homicidal thoughts Hallucinations: no auditory hallucinations and no visual hallucinations Cognition: recent memory grossly intact, remote memory grossly intact and attention grossly intact Estimated Intelligence: average estimated intelligence Insight: + limited insight Judgment: + limited judgement Vital Signs (Past 24 Hours) Last Vital Signs Temp 36.6 C 02/21/23 07:31 Pulse 72 02/21/23 07:31 Resp 16 02/21/23 07:31 BP 108/71 02/21/23 07:31 Pulse Ox 97 02/21/23 07:31 O2 Del Method Room Air 02/21/23 07:31 Results & Data ([facility]) Current Inpatient Medications Current Inpatient Medications: Current Inpatient Medications Acetaminophen (Acetaminophen 325 Mg Tab) 650 mg PO Q4H PRN PRN Reason: Pain or Fever Stop: 03/17/23 18:40 Last Admin: 02/20/23 20:53 Dose: 650 mg Al Hydrox/Mg Hydrox/Simethicone (Aluminum/Magnesium Susp 30 Ml Udc) 15 ml PO Q4H PRN PRN Reason: Dyspepsia Stop: 03/17/23 18:40 Benztropine Mesylate (Benztropine Mesylate 1 Mg Tab) 1 mg PO HS [facility] Stop: 03/17/23 20:59 Last Admin: 02/20/23 20:56 Dose: 1 mg Chlorpromazine HCl (Chlorpromazine Hcl 25 Mg Tab) 50 mg PO TID [facility] Stop: 03/21/23 13:59 Last Admin: 02/21/23 14:29 Dose: 50 mg Docusate Sodium (Docusate Sodium 100 Mg Cap) 200 mg PO BID [facility] Stop: 03/17/23 20:59 Last Admin: 02/21/23 10:07 Dose: Not Given Enoxaparin Sodium (Enoxaparin Inj 40 Mg/0.4 Ml Syr) 40 mg SQ Q24H [facility] Stop: 03/17/23 19:59 Last Admin: 02/20/23 20:54 Dose: 40 mg Haloperidol (Haloperidol 5 Mg Tab) 20 mg PO BID [facility] Stop: 03/21/23 20:59 Last Admin: 02/21/23 10:03 Dose: 20 mg Lidocaine (Lidocaine 5% 1 Patch) 1 patch TD HS [facility] Stop: 03/17/23 18:40 Last Admin: 02/20/23 20:55 Dose: 1 patch Melatonin (Melatonin 3 Mg Tab) 3 mg PO HS PRN PRN Reason: Sleep Stop: 03/21/23 22:38 Last Admin: 02/19/23 23:50 Dose: 3 mg Menthol (Cough Drop (Sugar Free) Kaden 24 Kaden/1 Box) 1 kaden BUCCAL PRN PRN PRN Reason: Sore Throat Stop: 03/18/23 22:47 Miscellaneous (Remove Lidoderm Patch) 1 each N/A DAILY@0900 [facility] Stop: 03/18/23 08:59 Last Admin: 02/21/23 10:04 Dose: 1 each Miscellaneous (Remove Nicoderm Patch) 1 each N/A DAILY@0859 [facility] Stop: 03/18/23 08:58 Last Admin: 02/21/23 10:07 Dose: 1 each Nicotine (Nicotine 14 Mg/24 Hr Patch) 14 mg TD QAM [facility] Stop: 03/18/23 08:59 Last Admin: 02/21/23 10:57 Dose: 14 mg Pantoprazole Sodium (Pantoprazole 40 Mg Tab) 40 mg PO QAM [facility] Stop: 03/18/23 08:59 Last Admin: 02/21/23 10:03 Dose: 40 mg Tramadol HCl (Tramadol Hcl 50 Mg Tablet) 50 mg PO Q4H PRN PRN Reason: Pain Stop: 03/17/23 21:24 Last Admin: 02/18/23 08:33 Dose: 50 mg Venlafaxine HCl (Venlafaxine Hcl Xr 75 Mg Capxr) [facility] Stop: 03/18/23 08:59 Last Admin: 02/21/23 10:03 Dose: 75 mg Vitamin D (Cholecalciferol 5,000 Units 125 Mcg Tab) 5,000 units PO QAM [facility] Stop: 03/18/23 08:59 Last Admin: 02/21/23 10:03 Dose: 5,000 units
[2023-02-21] MEDS: traMADol HCL 50 MG TABLET PO PRN (16:04)
[2023-02-21] MEDS: ENOXAPARIN INJ 40 MG/0.4 ML SYR SQ SCH (20:18)
[2023-02-21] MEDS: MELATONIN 3 MG TAB PO PRN (20:21)
[2023-02-21] MEDS: BENZTROPINE MESYLATE 1 MG TAB PO SCH (21:01)
[2023-02-21] MEDS: LIDOCAINE 5% 1 PATCH TD SCH (21:02)
[2023-02-22] MEDS: DOCUSATE SODIUM 100 MG CAP PO SCH ×2 (08:38→21:31)
[2023-02-22] MEDS: NICOTINE 14 MG/24 HR PATCH TD SCH (08:38)
[2023-02-22] MEDS: VENLAFAXINE HCL XR 75 MG CAPXR PO SCH (08:39)
[2023-02-22] MEDS: PANTOprazole 40 MG TAB PO SCH (08:39)
[2023-02-22] MEDS: CHOLECALCIFEROL 5,000 UNITS 125 MCG TAB PO SCH (08:39)
[2023-02-22] MEDS: chlorproMAZINE HCL 25 MG TAB PO SCH ×3 (09:07→21:32)
[2023-02-22] MEDS: ACETAMINOPHEN 325 MG TAB PO PRN (09:08)
[2023-02-22] MEDS: haloperidoL 5 MG TAB PO SCH ×2 (09:08→21:32)
[2023-02-22] MEDS: traMADol HCL 50 MG TABLET PO PRN ×2 (13:53→21:32)
--- NOTE | 2023-02-22 14:26 | Psychiatric Progress Note ---
Date of Service February 22, 2023 Impression / Recommendations Impression Agree with assessment per Dr. Moralez: 52 y/o man with schizophrenia who's spent about 3 days outside of psychiatric hospitals in the past 4 months. He's had multiple recent medication changes, the most recent for reasons currently unavailable. He is currently on low-dose haloperidol (1/4 of previous dose) and would like to add chlorpromazine. 02/22/2023: Tolerating being off 1:1 though tried to leave and required redirection from RN after he became concerned he couldn't pay to remain in the hospital. Did well with reassurance. Ambulating well on his foot and using boot to do so. Having some visual hallucinations today but able to reality-test these. No SI today. Future-oriented about returning to his [facility]. 02/21/2023: Improving mood and lessening of psychosis with titration of haldol and Thorazine. Remains on droplet precautions due to RSV. No apparent side effects from haldol or thorazine. Agree with 's that dual antipsychotic treatment is reasonable given multiple prior failed antipsychotic monotherapy trials (>6 including clozapine) and previous stability on this combination and his desire to take this combination of medications improving likelihood of adherence and stability. 02/17/2023: Pt appears clearly to be tolerating recent increase in haloperidol and addition of chlorpromazine, but no noticeable benefit has accrued. 02/16/2023: We strive to avoid use of multiple antipsychotics, but his history indicates this has often been necessary. He has tried a broad range of medications. I'm inclined to accede to his wishes and recommend resuming his old (from ca. 2 yr ago) regimen Overall, I spent a total of 35 minutes with this case including review of chart records, review of labwork, direct evaluation of the patient at bedside, counseling the patient, discussion of the patient with the Nurse and with the hospitalist provider, discussion with the psychiatric liason during clinical rounds, and documentation in the electronic health record. (1) Schizophrenia: Plan 02/22/2023: Continue with q15 min checks, would put back on 1:1 if he tries to leave again. Continue current psychiatric medications. Will attempt to confirm [place] appointment and schedule return to [facility] tomorrow. 02/21/2023: Continue current psychiatric medications. Consider trial off 1:1 given no current command AH with q15 minute checks given his history of wandering, as psychiatric symptoms are improving and he is hoping to be able to return to [facility]. 02/17/2023: * Increase haloperidol to 20 mg BID (historical dose) * Increase chlorpromazine to 50 mg TID (historical dose) 02/16/2023: Increase haloperidol to 10 mg BID (half of his previous dose from 2020) Add chlorpromazine 25 mg TID (half of his previous dose from 2020) It seems pretty clear that psychiatric hospitalization has not been of much (or any) demonstrable benefit recently, and I can't recommend trying to pursue yet another admission. Inventory Assets Strengths: voluntary Needs: safety and stabilization, medication adjustment, additional coping skills Suicide Risk Level Suicide Risk Level: Low (q15 min observation checks) Suicide Risk Level Comments: Denies SI Risk Factors Assessment Male: Yes : Yes Do You Have Access To A Gun?: No Health Problems: Yes Mental Health Diagnoses: Yes Substance Use Disorders: No Previous Attempt: Yes Previous Psychiatric Hospitalization: Yes Protective Factors Assessment : No Responsible for Young Children: No Employed: No Stable Relationships: No Supportive Family: No Interval History Identifying Information CASEY DAMIAN is a 52-year-old M with a history of schizophrenia, admitted on02/15/2023 for multiple injuries. Consult is by the hospitalist service for med management, hx schizophrenia. Chief Complaint "I don't have any money to pay to stay here". Review of Systems Notes slept overnight, eating well Subjective Subjective Patient was seen & assessed and interval progress reviewed. Did well overnight and this morning off 1:1, reported stable mood and no SI or hallucinations. However then this afternoon became concerned that he couldn't pay to stay in the hospital as "I don't have any money" and so attempted to leave requiring redi rection multiple times by RN. He was seen shortly after this and was reassured to learn that his health insurance is covering his stay here. Remains focused on goal of returning to [facility], discussed challenge in reaching anyone today due to holiday which he is understanding of. He was seeing some people in the corners of his room and the base of his bed "dressed in army green and trench coats" but states he can distinguish them from reality as they are "see through". Pleased with offer to watch TV and found a channel he liked. Continues to find his psychiatric medications helpful and denies any side effects. Physical Exam Psychiatric Orientation: alert and oriented x 3 Apperance: appropriately dressed and appropriately groomed Eye Contact: + fair eye contact Motor Behavior: no abnormal motor movements Speech: normal rate/rhythm/volume of speech (quiet) Affect: + constricted affect Mood: no depressed mood and no anxious mood Thought Process: clear/coherent thought process and + concrete thought process Thought Content: reality based without delusions Suicidal Thoughts: denies suicidal thoughts, denies suicidal plan and denies suicidal intent Homicidal Thoughts: denies homicidal thoughts Hallucinations: + visual hallucinations (people standing in his room but can reality-test ); no auditory hallucinations Cognition: recent memory grossly intact, remote memory grossly intact and attention grossly intact Estimated Intelligence: average estimated intelligence Insight: + limited insight Judgment: + limited judgement Vital Signs (Past 24 Hours) Last Vital Signs Temp 36.8 C 02/22/23 07:12 Pulse 69 02/22/23 07:12 Resp 18 02/22/23 07:12 BP 105/66 02/22/23 07:12 Pulse Ox 97 02/22/23 07:12 O2 Del Method Room Air 02/22/23 07:12 Results & Data ([facility]) Current Inpatient Medications Current Inpatient Medications: Current Inpatient Medications Acetaminophen (Acetaminophen 325 Mg Tab) 650 mg PO Q4H PRN PRN Reason: Pain or Fever Stop: 03/17/23 18:40 Last Admin: 02/22/23 09:08 Dose: 650 mg Al Hydrox/Mg Hydrox/Simethicone (Aluminum/Magnesium Susp 30 Ml Udc) 15 ml PO Q4H PRN PRN Reason: Dyspepsia Stop: 03/17/23 18:40 Benztropine Mesylate (Benztropine Mesylate 1 Mg Tab) 1 mg PO HS [facility] Stop: 03/17/23 20:59 Last Admin: 02/21/23 21:01 Dose: 1 mg Chlorpromazine HCl (Chlorpromazine Hcl 25 Mg Tab) 50 mg PO TID [facility] Stop: 03/21/23 13:59 Last Admin: 02/22/23 09:07 Dose: 50 mg Docusate Sodium (Docusate Sodium 100 Mg Cap) 200 mg PO BID [facility] Stop: 03/17/23 20:59 Last Admin: 02/22/23 08:38 Dose: 200 mg Enoxaparin Sodium (Enoxaparin Inj 40 Mg/0.4 Ml Syr) 40 mg SQ Q24H [facility] Stop: 03/17/23 19:59 Last Admin: 02/21/23 20:18 Dose: 40 mg Haloperidol (Haloperidol 5 Mg Tab) 20 mg PO BID [facility] Stop: 03/21/23 20:59 Last Admin: 02/22/23 09:08 Dose: 20 mg Lidocaine (Lidocaine 5% 1 Patch) 1 patch TD HS [facility] Stop: 03/17/23 18:40 Last Admin: 02/21/23 21:02 Dose: 1 patch Melatonin (Melatonin 3 Mg Tab) 3 mg PO HS PRN PRN Reason: Sleep Stop: 03/21/23 22:38 Last Admin: 02/21/23 20:21 Dose: 3 mg Menthol (Cough Drop (Sugar Free) Kaden 24 Kaden/1 Box) 1 kaden BUCCAL PRN PRN PRN Reason: Sore Throat Stop: 03/18/23 22:47 Miscellaneous (Remove Lidoderm Patch) 1 each N/A DAILY@0900 [facility] Stop: 03/18/23 08:59 Last Admin: 02/22/23 08:45 Dose: 1 each Miscellaneous (Remove Nicoderm Patch) 1 each N/A DAILY@0859 [facility] Stop: 03/18/23 08:58 Last Admin: 02/22/23 08:38 Dose: 1 each Nicotine (Nicotine 14 Mg/24 Hr Patch) 14 mg TD QAM [facility] Stop: 03/18/23 08:59 Last Admin: 02/22/23 08:38 Dose: 14 mg Pantoprazole Sodium (Pantoprazole 40 Mg Tab) 40 mg PO QAM [facility] Stop: 03/18/23 08:59 Last Admin: 02/22/23 08:39 Dose: 40 mg Tramadol HCl (Tramadol Hcl 50 Mg Tablet) 50 mg PO Q4H PRN PRN Reason: Pain Stop: 03/17/23 21:24 Last Admin: 02/22/23 13:53 Dose: 50 mg Venlafaxine HCl (Venlafaxine Hcl Xr 75 Mg Capxr) 75 mg PO QAM [facility] Stop: 03/18/23 08:59 Last Admin: 02/22/23 08:39 Dose: 75 mg Vitamin D (Cholecalciferol 5,000 Units 125 Mcg Tab) 5,000 units PO [facility] Stop: 03/18/23 08:59 Last Admin: 02/22/23 08:39 Dose: 5,000 units
--- NOTE | 2023-02-22 14:40 | Hospitalist Progress Note ---
Date of Service February 22, 2023 Assessment & Plan (1) Fall: Plan: Patient was Found by police wandering [place] after discharge from the [facility] to [facility] 02/15. Found to have multiple RIGHT rib fractures, acute 2nd phalanx fx LEFT foot. (2) Viral illness: Plan: Rhinovirus and enterovirus isolated on bio fire on admission. Currently asymptomatic (3) Schizophrenia: Plan: Appreciate psychiatry consultation and recommendations. Currently on high-dose Haldol and Thorazine. Supportive care. Continue Effexor, Protonix, Colace, vitamin D, nicotine patch. No plans for inpatient psych (4) Rib fractures: Plan: Acute right first through third rib fractures. No pneumothorax. Small amount of associated extrapleural hemorrhage. Supportive care. Pain control measures (5) Foot fracture, left: Plan: X-ray w/ avulsion fracture at the base of the second proximal phalanx, with evidence of age indeterminant Lisfranc injury. Appreciate orthopedic consultation and recommendations. Walking boot in place (6) Leukocytosis: Plan: Present on admission. Due to viral illness. Serial labs. (7) Severe malnutrition: Plan: Noted to have 13.3% weight loss in 3 months, goal BMI >18.5. Dietary supplements ordered Plan Disposition pending. Possible discharge back to [facility] home Admission and Anticipated Discharge Date Admission Date: February 15, 2023 Subjective Alert and oriented. No acute distress. He denies any right-sided rib pain. Le ft foot is in a boot. He remains on Haldol and Thorazine. Psychiatry consultation and recommendations appreciated. Final arrangements for disposition remain pending Review of Systems Review of Systems: Constitutional-no fever or chills ENT-no blurred vision, no double vision, no epistaxis, no sore throat Respiratory-no cough, no wheezing, no shortness of breath Cardiac-no palpitations, no chest pain, no syncope GI-no nausea, vomiting, diarrhea, melena, hematochezia -no urinary retention, no urinary incontinence, no dysuria, no hematuria Musculoskeletal-no joint pain, no muscle tenderness. Mild left foot discomfort with weightbearing Skin-no bruising, no rashes, no pruritus Neuro-no isolated weakness, no paresthesia, no weakness Psych-no depression, no anxiety Physical Exam Physical Exam: General-alert and oriented x3, no fevers, no chills HEENT-head atraumatic and normocephalic, pupils equal and reactive to light, extraocular muscles intact Neck-no lymphadenopathy or thyromegaly, trachea midline Chest-clear to auscultation percussion. No rales wheezing or rhonchi Cardiac-regular rate and rhythm, normal S1 and S2 Abdomen-normal bowel sounds, nontender, no hepatosplenomegaly Extremities-no cyanosis, clubbing, or edema. Left foot is in a walking boot Neuro-cranial nerves II through XII intact, motor and sensory function within normal limits, strength symmetrical , no focal deficits Psych-normal affect, normal mood Results & Data Results & Data Vital Signs (Past 12 Hours) Vital Signs Temp Pulse Resp BP Pulse Ox O2 Del Method 02/22/23 07:12 36.8 C 69 18 105/66 97 Room Air Laboratory Results 02/20/23 08:42 02/20/23 08:42 PG Care Time/CCT Total # of Minutes Spent Total Time Spent with Patient: Total time spent is greater than 50% in coordination of care (as documented) at patient's floor/unit and/or counseling patient: Coding Level of Care Code 80585 SUB INP/OBS CARE 3/50MIN Diagnoses Fall W19.XXXA Encounter type: initial encounter Viral illness B34.9 Schizophrenia F20.9 Rib fractures S22.41XA Encounter type: initial encounter Fracture type: closed Laterality: right Foot fracture, left S92.902A Encounter type: initial encounter Fracture type: closed Leukocytosis D72.829 Severe malnutrition E43 (1) Fall Encounter type: initial encounter Qualified Code(s): W19.XXXA - Unspecified fall, initial encounter (4) Rib fractures Encounter type: initial encounter Fracture type: closed Laterality: right Qualified Code(s): S22.41XA - Multiple fractures of ribs, right side, initial encounter for closed fracture (5) Foot fracture, left Encounter type: initial encounter Fracture type: closed Qualified Code(s): S92.902A - Unspecified fracture of left foot, initial encounter for closed fracture
[2023-02-22] MEDS: ENOXAPARIN INJ 40 MG/0.4 ML SYR SQ SCH (21:31)
[2023-02-22] MEDS: MELATONIN 3 MG TAB PO PRN (21:32)
[2023-02-22] MEDS: BENZTROPINE MESYLATE 1 MG TAB PO SCH (21:32)
[2023-02-22] MEDS: LIDOCAINE 5% 1 PATCH TD SCH (21:34)
[2023-02-23] MEDS: traMADol HCL 50 MG TABLET PO PRN (08:30)
[2023-02-23] MEDS: NICOTINE 14 MG/24 HR PATCH TD SCH (08:31)
[2023-02-23] MEDS: PANTOprazole 40 MG TAB PO SCH (08:32)
[2023-02-23] MEDS: VENLAFAXINE HCL XR 75 MG CAPXR PO SCH (08:32)
[2023-02-23] MEDS: CHOLECALCIFEROL 5,000 UNITS 125 MCG TAB PO SCH (08:32)
[2023-02-23] MEDS: chlorproMAZINE HCL 25 MG TAB PO SCH ×3 (08:33→20:22)
[2023-02-23] MEDS: haloperidoL 5 MG TAB PO SCH ×2 (08:33→20:22)
[2023-02-23] MEDS: DOCUSATE SODIUM 100 MG CAP PO SCH ×2 (08:34→20:19)
--- NOTE | 2023-02-23 11:59 | Psychiatric Progress Note ---
Date of Service February 23, 2023 Impression / Recommendations Impression Agree with assessment per Dr. Moralez: 52 y/o man with schizophrenia who's spent about 3 days outside of psychiatric hospitals in the past 4 months. He's had multiple recent medication changes, the most recent for reasons currently unavailable. He is currently on low-dose haloperidol (1/4 of previous dose) and would like to add chlorpromazine. 02/23/2023: Casey continues to present with stable mood, adamantly denies SI, has not experienced any recent command auditory hallucinations since his medication adjustments and is future-oriented and motivated to return to his retirement. He has tolerated medication adjustments well with significant lessening of his previous psychic distress and improvement in psychosis. He will likely continue to have periods of intermittent chronic visual hallucinations (as this is a long standing symptom) but has been able to reality-test when this occurs and denies any symptoms of psychosis today. He no longer requires or meets criteria for inpatient psychiatric hospitalization and he desires to return to his retirement, feels safe there and doesn't meet 302 involuntary criteria. Acute risk of self-harm is low given improvement in mood and denial of SI, lack of access to lethal means, hopefulness and improvement in psychosis. Chronic risk is moderate to high given multiple non-modifiable risk factors: psychiatric co-morbid diagnoses, periods of impulsivity, prior attempt, emotional reactivity, prior psychiatric hospitalizations, poor social support, schizophrenia but also with protective factors including: sense of responsibility to family and social supports, outpatient care in place, capacity to establish therapeutic alliance, willingness to engage with treatment. Counseled on ways to reduce acute and chronic risk including engaging with outpatient providers, utilizing supports, taking medication, and using coping skills. Modifiable risk factors of psychosis were addressed during hospitalization through medication adjustments. Overall, I spent a total of 45 minutes with this case including review of chart records, review of labwork, direct evaluation of the patient at bedside, counseling the patient, discussion of the patient with the Nurse and with the hospitalist provider, discussion with the psychiatric liason during clinical rounds, and documentation in the electronic health record. (1) Schizophrenia: Plan 02/23/2023: Psychiatrically stable for discharge back to his retirement. Should remain on haldol 20mg BID, Thorazine 50mg TID, Cogentin 1mg HS (could transition to prn in the future if he remains without any EPS side effects from haldol) and Effexor XR 75mg daily. Has outpatient follow-up later this month with [facility], will fax records on medication changes at time of discharge. Current AIMS score is 0. Recommend repeat fasting glucose, HbA1c and fasting lipid profile at least annually. If symptoms arise recommend checking BP, EKG, prolactin level as clinically indicated or relevant. 02/22/2023: Continue with q15 min checks, would put back on 1:1 if he tries to leave again. Continue current psychiatric medications. Will attempt to confirm [facility] appointment and schedule return to [employer] retirement tomorrow. 02/21/2023: Continue current psychiatric medications. Consider trial off 1:1 given no current command AH with q15 minute checks given his history of wandering, as psychiatric symptoms are improving and he is hoping to be able to return to [employer] retirement. 02/17/2023: * Increase haloperidol to 20 mg BID (historical dose) * Increase chlorpromazine to 50 mg TID (historical dose) 02/16/2023: Increase haloperidol to 10 mg BID (half of his previous dose from 2020) Add chlorpromazine 25 mg TID (half of his previous dose from 2020) It seems pretty clear that psychiatric hospitalization has not been of much (or any) demonstrable benefit recently, and I can't recommend trying to pursue yet another admission. Inventory Assets Strengths: voluntary Needs: safety and stabilization, medication adjustment, additional coping skills Suicide Risk Level Suicide Risk Level: Low (q15 min observation checks) Risk Factors Assessment Male: Yes : Yes Do You Have Access To A Gun?: No Health Problems: Yes Mental Health Diagnoses: Yes Substance Use Disorders: No Previous Attempt: Yes Previous Psychiatric Hospitalization: Yes Protective Factors Assessment : No Responsible for Young Children: No Employed: No Stable Relationships: No Supportive Family: No Interval History Identifying Information CASEY DAMIAN is a 52-year-old M with a history of schizophrenia, admitted on02/15/2023 for multiple injuries. Consult is by the hospitalist service for med management, hx schizophrenia. Chief Complaint "I'm ready to go home today". Review of Systems Notes sleeping and eating well Subjective Subjective Patient was seen & assessed and interval progress reviewed. Required redirection once overnight but otherwise doing well with q15 minutes checks. This morning he is dressed in street clothes with his boot on and sitting on the side of his bed. Tells me his mood is "good" and that he wants to go home today. Discussed with him that we need to ensure plans are arranged with [facility] before he can go which he is understanding of. Asked about feeling safe he reports "oh yes" in terms of feeling safe at [facility] and without any SI. Does not appear to be responding to any internal stimuli, no current delusions and denies any current AH or VH. He remains agreeable with following up with [facility] after discharge. Denies any medication side effects and likes his current medications noting "I feel calmer". He reports some mild pain from his foot but has been ambulating with his boot and states "absolutely" he feels he can navigate the stairs at his retirement. Physical Exam Psychiatric Orientation: alert and oriented x 3 Apperance: appropriately dressed and appropriately groomed Eye Contact: + fair eye contact Motor Behavior: no abnormal motor movements Speech: normal rate/rhythm/volume of speech (quiet) Affect: + constricted affect (but with a few smiles) Mood: no depressed mood and no anxious mood Thought Process: clear/coherent thought process and + concrete thought process Thought Content: reality based without delusions Suicidal Thoughts: denies suicidal thoughts, denies suicidal plan and denies suicidal intent Homicidal Thoughts: denies homicidal thoughts Hallucinations: no auditory hallucinations and no visual hallucinations Cognition: recent memory grossly intact, remote memory grossly intact and attention grossly intact Estimated Intelligence: average estimated intelligence Insight: + limited insight Judgment: + limited judgement Vital Signs (Past 24 Hours) Last Vital Signs Temp 36.6 C 02/23/23 07:26 Pulse 82 02/23/23 07:26 Resp 17 02/23/23 07:26 BP 104/69 02/23/23 07:26 Pulse Ox 100 02/23/23 07:26 O2 Del Method Room Air 02/23/23 07:26 Results & Data ([facility]) Current Inpatient Medications Current Inpatient Medications: Current Inpatient Medications Acetaminophen (Acetaminophen 325 Mg Tab) 650 mg PO Q4H PRN PRN Reason: Pain or Fever Stop: 03/17/23 18:40 Last Admin: 02/22/23 09:08 Dose: 650 mg Al Hydrox/Mg Hydrox/Simethicone (Aluminum/Magnesium Susp 30 Ml Udc) 15 ml PO Q4H PRN PRN Reason: Dyspepsia Stop: 03/17/23 18:40 Benztropine Mesylate (Benztropine Mesylate 1 Mg Tab) 1 mg PO HS [facility] Stop: 03/17/23 20:59 Last Admin: 02/22/23 21:32 Dose: 1 mg Chlorpromazine HCl (Chlorpromazine Hcl 25 Mg Tab) 50 mg PO TID [facility] Stop: 03/21/23 13:59 Last Admin: 02/23/23 08:33 Dose: 50 mg Docusate Sodium (Docusate Sodium 100 Mg Cap) 200 mg PO BID [facility] Stop: 03/17/23 20:59 Last Admin: 02/23/23 08:34 Dose: 200 mg Enoxaparin Sodium (Enoxaparin Inj 40 Mg/0.4 Ml Syr) 40 mg SQ Q24H [facility] Stop: 03/17/23 19:59 Last Admin: 02/22/23 21:31 Dose: Not Given Haloperidol (Haloperidol 5 Mg Tab) 20 mg PO BID [facility] Stop: 03/21/23 20:59 Last Admin: 02/23/23 08:33 Dose: 20 mg Lidocaine (Lidocaine 5% 1 Patch) 1 patch TD HS [facility] Stop: 03/17/23 18:40 Last Admin: 02/22/23 21:34 Dose: 1 patch Melatonin (Melatonin 3 Mg Tab) 3 mg PO HS PRN PRN Reason: Sleep Stop: 03/21/23 22:38 Last Admin: 02/22/23 21:32 Dose: 3 mg Menthol (Cough Drop (Sugar Free) Kaden 24 Kaden/1 Box) 1 kaden BUCCAL PRN PRN PRN Reason: Sore Throat Stop: 03/18/23 22:47 Miscellaneous (Remove Lidoderm Patch) 1 each N/A DAILY@0900 [facility] Stop: 03/18/23 08:59 Last Admin: 02/23/23 08:33 Dose: 1 each Miscellaneous (Remove Nicoderm Patch) 1 each N/A DAILY@0859 [facility] Stop: 03/18/23 08:58 Last Admin: 02/23/23 08:33 Dose: 1 each Nicotine (Nicotine 14 Mg/24 Hr Patch) 14 mg TD QAM [facility] Stop: 03/18/23 08:59 Last Admin: 02/23/23 08:31 Dose: 14 mg Pantoprazole Sodium (Pantoprazole 40 Mg Tab) [facility] Stop: 03/18/23 08:59 Last Admin: 02/23/23 08:32 Dose: 40 mg Tramadol HCl (Tramadol Hcl 50 Mg Tablet) 50 mg PO Q4H PRN PRN Reason: Pain Stop: 03/17/23 21:24 Last Admin: 02/23/23 08:30 Dose: 50 mg Venlafaxine HCl (Venlafaxine Hcl Xr 75 Mg Capxr) 75 mg PO [facility] Stop: 03/18/23 08:59 Last Admin: 02/23/23 08:32 Dose: 75 mg Vitamin D (Cholecalciferol 5,000 Units 125 Mcg Tab) 5,000 units PO [facility] Stop: 03/18/23 08:59 Last Admin: 02/23/23 08:32 Dose: 5,000 units
--- NOTE | 2023-02-23 12:19 | Discharge Summary ---
Date of Service February 23, 2023 Principal Diagnosis Exacerbation schizophrenia, left second toe fracture, right first through third rib fractures Discharge Exam General-alert and oriented x3, no fevers, no chills HEENT-head atraumatic and normocephalic, pupils equal and reactive to light, extraocular muscles intact Neck-no lymphadenopathy or thyromegaly, trachea midline Chest-clear to auscultation percussion. No rales wheezing or rhonchi Cardiac-regular rate and rhythm, normal S1 and S2 Abdomen-normal bowel sounds, nontender, no hepatosplenomegaly Extremities-no cyanosis, clubbing, or edema. Left foot is in a walking boot Neuro-cranial nerves II through XII intact, motor and sensory function within normal limits, strength symmetrical , no focal deficits Psych-normal affect, normal mood Discharge Data Allergies Allergy/AdvReac Type Severity Reaction Status Date / Time No Known Allergies Allergy Verified 11/07/22 11:50 Consultations 02/15/23 16:25 ED Decision to Admit Stat 02/15/23 18:41 Consult Orthopedic Surgery Routine Consult Psychiatry Routine 02/15/23 21:51 Consult Behavioral Health Liaison Routine Ordered Studies 02/15/23 14:10 CT cervical spine wo con Stat CT head/brain wo con Stat 02/15/23 15:17 CT abd pelvis IV con only Stat 02/15/23 15:23 CT chest diagnostic w con Stat Hospital Course (1) Fall: Patient was found by police wandering [place] after discharge from the [facility] back to [facility] 02/15. Found to have multiple right rib fractures, acute 2nd phalanx fx left foot. (2) Viral illness: Rhinovirus and enterovirus isolated on [facility] on admission. Currently asymptomatic (3) Schizophrenia: Appreciate psychiatry consultation and recommendations. Currently on high-dose Haldol and Thorazine. Supportive care. Continue Effexor, Protonix, Colace, vitamin D, nicotine patch. No plans for inpatient psych (4) Rib fractures: Acute right first through third rib fractures. No pneumothorax. Small amount of associated extrapleural hemorrhage. Supportive care. Pain control measures. Not hypoxic (5) Foot fracture, left: X-ray w/ avulsion fracture at the base of the second proximal phalanx, with evidence of age indeterminant Lisfranc injury. Appreciate orthopedic consultation and recommendations. Walking boot in place (6) Leukocytosis: Present on admission. Due to viral illness. Serial labs. (7) Severe malnutrition: Noted to have 13.3% weight loss in 3 months, goal BMI >18.5. Dietary supplements ordered Plan Discharge back to [facility] skilled nursing today, February 23 Total Time Total Time Spent Total Time Spent (In Minutes): 40 minutes Discharge Plan Discharge Items Patient Disposition: Personal Correction Reason For Visit: FEVER, FALL, RIB FX, FOUND BY POLICE, SCHIZOPHRENI Discharge Diagnosis: fall, viral URI, schizophrenia Activity: Per Instructions section Non-emergency contact: Primary Care Provider and Psychiatrist Call non-emergency contact if: you have any medication questions and your symptoms worsen Follow-up/Referrals: [facility] [Other] - 03/08/23 1:00 pm PCP,NO [Primary Care Provider] - Diet: Regular Addtl Attending Provider Instructions: Fall: Found by police wandering [place] after discharge from the [facility] back to [facility] 02/15 With multiple RIGHT rib fractures, acute 2nd phalanx fx LEFT foot, elevated lactate (resolved), and elevated WBC count (resolved) Med/Tele for monitoring for arrhythmia, no evidence of such at this time Biofire testing POSITIVE for Rhino/Enterovirus, likely explains fever (no other evidence of localizable infectious source), droplet precautions Orthopedics consulted for acute fracture L foot, ?chronic lis franc fracture Ice, pain control with Tylenol/tramadol/lidocaine patches PT/OT consulted given fall and need for CAM boot/crutches, not recommending rehab on discharge Schizophrenia: Recent inpatient stay at [facility], discharged 02/15, eloped from [facility] during intake and found hurt by police Continue Haldol 10mg QAM/10mg HS, Effexor 75mg, Protonix 40mg daily, Colace, vitamin D, nicotine patch Continue bowel regimen to prevent constipation Psych consulted while inpatient stay given worsening evidence of active SI this afternoon, suicide precautions and 1:1 initiated, did restart Thorazine 25mg TID Will need to confer with liaison, Psych, and [facility] regarding disposition, CM aware and assisting with this Rib fractures: Acute right first through third rib fractures. No pneumothorax. Small amount of associated extrapleural hemorrhage Incentive spirometer/cough/deep breathing, supplemental O2 as needed Pain control as above Foot fracture, left: X-ray w/ avulsion fracture at the base of the second proximal phalanx, with evidence of age indeterminant Lisfranc injury. Tenderness to palpation/swelling, with acute fracture 2nd phalanx, 2/2 fall Pain control, ice, elevation Orthopedics recommends orthotic walking boot and crutches/walker Fever: Suspected 2nd to Rhino/enterovirus Blood cultures NGTD UA negative CXR no focal PNA Defer Abx Rhinovirus infection: +Biofire testing Incentive spirometer, supportive care Droplet precautions Leukocytosis: Suspected 2nd to fall/fractures, also with +Biofire testing as above, resolving Severe malnutrition: Noted to have 13.3% weight loss in 3 months, goal BMI >18.5, nutrition consult appreciated, CBEs BID and safe tray for diet Pending Studies at Discharge: No Stand-Alone Forms: My [employer], Smoking Cessation Skilled Items Patient informed of condition?: Yes DNR: No Discharge Level of Care: Other Communicable Disease: No Discharge Prognosis: Stable Lines: None Urinary Catheter: No Medications and DC Order Prescriptions: New haloperidol 5 mg Tablet 20 mg PO BID Qty: 60 0RF chlorpromazine 25 mg Tablet 50 mg PO TID Qty: 100 0RF Continued benztropine 1 mg tablet 1 mg PO HS venlafaxine 75 mg capsule,extended release 24hr 75 mg PO QAM cyproheptadine 4 mg tablet 4 mg PO TID pantoprazole 40 mg tablet,delayed release (DR/EC) 40 mg PO QAM docusate sodium 100 mg capsule 200 mg PO BID Daily Multivitamin-Minerals Tablet 1 tab PO QAM cholecalciferol (vitamin D3) [Vitamin D3] 50 mcg (2,000 unit) tablet 50 mcg PO QAM Discontinued haloperidol 20 mg tablet 20 mg PO HS haloperidol 10 mg tablet 10 mg PO QAM Discharge Orders: Discharge Order (Routine); Ordered 02/23/23 Ordered By: Jacob Bone Admission Data Admit Date/Time: 02/15/23 17:46 Attending Provider: Jacob Bone Admit Provider: Gucci Gabriel Primary Care Provider: PCP,NO Other Providers: Gucci Gabriel ; Fuad Jackson ; Mary Lou Smith ; Zahida Levin ; Ehsan Moralez Coding Level of Care Code 04353 INP/OBS DISCH >30 MIN Diagnoses Fall W19.XXXA Encounter type: initial encounter Viral illness B34.9 Schizophrenia F20.9 Rib fractures S22.41XA Encounter type: initial encounter Fracture type: closed Laterality: right Foot fracture, left S92.902A Encounter type: initial encounter Fracture type: closed Leukocytosis D72.829 Severe malnutrition E43
[2023-02-23] MEDS: ENOXAPARIN INJ 40 MG/0.4 ML SYR SQ SCH (20:20)
[2023-02-23] MEDS: MELATONIN 3 MG TAB PO PRN (20:20)
[2023-02-23] MEDS: BENZTROPINE MESYLATE 1 MG TAB PO SCH (20:22)
[2023-02-23] MEDS: LIDOCAINE 5% 1 PATCH TD SCH (20:23)
[2023-02-24] MEDS: NICOTINE 14 MG/24 HR PATCH TD SCH (07:54)
[2023-02-24] MEDS: CHOLECALCIFEROL 5,000 UNITS 125 MCG TAB PO SCH (07:55)
[2023-02-24] MEDS: haloperidoL 5 MG TAB PO SCH (07:56)
[2023-02-24] MEDS: VENLAFAXINE HCL XR 75 MG CAPXR PO SCH (07:56)
[2023-02-24] MEDS: PANTOprazole 40 MG TAB PO SCH (07:56)
[2023-02-24] MEDS: chlorproMAZINE HCL 25 MG TAB PO SCH (07:57)
[2023-02-24] MEDS: ACETAMINOPHEN 325 MG TAB PO PRN (07:58)
[2023-02-24] MEDS: DOCUSATE SODIUM 100 MG CAP PO SCH (08:48)
== END 2023-02-24 09:45 | disposition home or self-care (01) | DRG 183 ==
LOC: ED 13:53 → SUATTDRO 17:46 → EDINP 17:46 → 2W 02-16 15:43 → 3W 02-21 18:00

== ENCOUNTER 2023-02-24 21:18 | Inpatient (IN) ==
--- NOTE | 2023-02-24 21:44 | Emergency Department Note ---
Impression & Plan Schizophrenia, Depression, Paranoid, Delusional disorder, RONI (acute kidney injury) ED Provider Note NAME: CASEY DAMIAN AGE: 52 SEX: M : 1970 ARRIVES VIA: [employer] INFORMANT: Patient ED PROVIDER(S): Orlin Cherry DO CHIEF COMPLAINT: mood disorder HPI: Patient is a 52-year-old male who presents to the ER brought in on a 302 by police with a past medical history of schizophrenia. He has been trying to leave [facility] and has not been notifying them. They believe that he is not eating or drinking. He was evaluated here last night and they note that he opened the door on the car was moving but this is unclear when this actually occurred and what his intentions were. Patient denies any headache or change in vision. No chest pain or shortness of breath. No nausea, vomiting, or diarrhea. PAST MEDICAL HISTORY:See Below PAST SURGICAL HISTORY:See Below FAMILY HISTORY:See Below SOCIAL HISTORY:See Below HOME MEDICATIONS:See Below ALLERGIES:See Below VITALS:See Below PHYSICAL EXAMINATION: GENERAL: Sitting up in bed, alert, chronically ill-appearing, disheveled EYE EXAM: normal conjunctiva. PERRL and EOM's grossly intact. OROPHARYNX: mucous membranes are dry LUNGS: Clear to auscultation. Normal chest wall mechanics HEART: no murmurs, S1 normal and S2 normal ABDOMEN: abdomen soft, non-tender, normo-active bowel sounds, no masses, no rebound or guarding. UPPER EXTREMITIES: upper extremities are grossly normal. LOWER EXTREMITIES: No pitting edema. NEURO EXAM: Normal sensorium, cranial nerves II-XII grossly intact, normal speech, no gross weakness of arms, no gross weakness of legs. PSYCH: Flat affect, depressed, delusional and paranoid denies any SI or HI MEDICAL DECISION MAKING: Patient is a 52-year-old male who presents the ER for the above-stated complaint. IV was established. Labs show mild leukocytosis of 14,000. No significant anemia. BMP with mild hyponatremia at 130 down from the second of this month at 138. Creatinine has significantly increased from 1.5-1.54. Do favor this is secondary to the poor p.o. intake. LFTs bilirubin were unremarkable. TSH was unremarkable. UA was clean. Tox was negative. Alcohol negative. COVID-negative. Patient was given 2 L of IV fluids. Did refer him to the hospitalist due to the RONI as he is likely not eating or drinking. Discussed with Dr. Wilson. She recommended 2 L which was already ordered and repeat BMP following this. Patient was signed out to Dr. Kiran at the change shift awaiting 2 L to complete and repeat BMP and evaluation by Dr. Wilson. Patient does have a petitioning statement in place. Is agreeable to coming in on 201. ED observation: The patient was placed in observation status at 2120. Psychiatric evaluation and medical clearance. During the time in observation, the patient was frequently reassessed and received 2 L of IV fluids following blood work and evaluation by her hospital service. On Final reassessment the patient blood work as well as 2 L of IV fluids and the patient will be signed out to Dr. Kiran at 0030 at this time. A total observation time of 3 hours and 30 minutes. Triage Nursing notes reviewed. Limited review of prior medical records performed Vital Signs: reviewed and remarkable for no significant abnormalities Differential diagnosis: Mood disorder, infection, hypoglycemia, electrolyte abnormalities, cardiac sources, intracerebral event, toxicologic, trauma, neurologic, as well as other pathologies. ER treatment provided: See below Diagnostics interpreted by me include EKG and cardiac monitoring as listed below: -ECG: none -Laboratory studies:Interpreted by me as stated above in MDM and shown below. 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 Beliefs That Will Affect Care: None Current Living Situation: Homeless Feels Safe at Home: Yes Gender Identity: Male Assistive Devices: None Allergies Allergies Allergy/AdvReac Type Severity Reaction Status Date / Time No Known Allergies Allergy Verified 11/07/22 11:50 Home Meds Home Medications Medication Instructions Recorded Confirmed benztropine 1 mg tablet 1 mg PO HS 02/15/23 02/15/23 cholecalciferol (vitamin D3) 50 50 mcg PO QAM 02/15/23 02/15/23 mcg (2,000 unit) tablet (Vitamin D3) cyproheptadine 4 mg tablet 4 mg PO TID 02/15/23 02/15/23 docusate sodium 100 mg capsule 200 mg PO BID 02/15/23 02/15/23 multivitamin with minerals (Daily 1 tab PO QAM 02/15/23 02/15/23 Multivitamin-Minerals tablet) pantoprazole 40 mg tablet,delayed 40 mg PO QAM 02/15/23 02/15/23 release venlafaxine 75 mg capsule,extended 75 mg PO QAM 02/15/23 02/15/23 release 24 hr Previous Rx's Medication Instructions Recorded chlorpromazine 25 mg tablet 50 mg PO TID #100 tabs 02/23/23 haloperidol 5 mg tablet 20 mg PO BID #60 tabs 02/23/23 Results & Data (ED) Vital Signs Vital Signs - 24 hr 02/24/23 21:21 02/24/23 21:24 02/24/23 23:53 Temperature 36.6 C 36.7 C Temperature Source Oral Oral Pulse Rate [Right Finger] 86 101 H Pulse Rhythm [Right Finger] Regular Pulse Strength [Right Finger] Normal Respiratory Rate 20 20 Respiratory Effort / Characteristics Non-Labored Respiratory Depth Normal Normal Respiratory Pattern Regular Blood Pressure [Right Arm] 113/70 106/66 Blood Pressure Mean [Right Arm] 84 79 Blood Pressure Position [Right Arm] Lying Semi-fowlers Pulse Oximetry 97 98 Oxygen Delivery Method Room Air Room Air Sepsis Recent Fever Within 48 Hours No Sepsis New/Unexplained Change in Mental Status No Sepsis Action Taken by Nursing No Action Required Laboratory Data 02/24/23 21:33 02/24/23 21:33 Lab Results 02/24/23 02/24/23 02/24/23 Range/Units 21:33 21:33 21:33 WBC 14.08 H (4.8-10.8) K/ul RBC 3.52 L (4.70-6.10) M/uL Hgb 11.1 L (14.0-18.0) g/dl Hct 31.7 L (42.0-52.0) % MCV 90.1 (80.0-100.0) fL MCH 31.5 (25.0-34.0) pg MCHC 35.0 (32.0-36.0) g/dL RDW Std Deviation 44.8 (36.4-46.3) fL RDW Coeff of Mars 13.6 (11.5-14.5) % Plt Count 367 (130-400) K/uL MPV 9.0 L (9.4-12.4) fL Immature Gran % (Auto) 1.1 % Neut % (Auto) 88.4 % Lymph % (Auto) 4.7 % Pettis % (Auto) 5.7 % Eos % (Auto) 0.0 % Baso % (Auto) 0.1 % Neut # (Auto) 12.45 H (1.40-6.50) K/uL Lymph # (Auto) 0.66 L (1.20-3.40) K/uL Pettis # (Auto) 0.80 H (0.11-0.59) K/uL Eos # (Auto) 0.00 (0.00-0.50) K/uL Baso # (Auto) 0.02 (0.00-0.20) K/uL Immature Gran # (Auto) 0.15 (0.01-0.20) K/uL Sodium 130 L (136-145) mmol/L Potassium 4.5 (3.5-5.1) mmol/L Chloride 94 L (98-107) mmol/L Carbon Dioxide 25 (21-32) mmol/L Anion Gap 11 (3-11) BUN 33 H (6-23) mg/dl Creatinine 1.54 H (0.6-1.4) mg/dl Est Cr Clr Drug Dosing Not Reportable Est GFR ( Amer) 59.2 ml/min Est GFR (Non-Af Amer) 51.1 ml/min BUN/Creatinine Ratio 21.4 H (10-20) Glucose 105 H (70-99(Fasting)) mg/dl Calcium 10.1 (8.6-10.3) mg/dl Total Bilirubin 0.5 (0.2-1.0) mg/dl AST 27 (13-39) U/L ALT 23 (7-52) U/L Alkaline Phosphatase 126 H (34-104) U/L Total Protein 7.2 (6.0-8.3) gm/dl Albumin 4.1 (3.4-5.0) gm/dl Globulin 3.1 (2.5-4.0) gm/dl Albumin/Globulin Ratio 1.3 (0.9-2) TSH 1.987 (0.300-4.500) uIu/ml Urine Color Urine Appearance (Clear) Urine pH (4.5-7.5) Ur Specific [place] (1.000-1.030) Urine Protein (Negative) Urine Glucose (UA) (Negative) Urine Ketones (Negative) Urine Blood (Negative) Urine Nitrite (Negative) Urine Bilirubin (Negative) Urine Urobilinogen (Negative) Ur Leukocyte Esterase (Negative) Salicylates (3.0-30) mg/dl Urine Opiates Screen (Neg) Ur Methadone, Qual (Neg) Acetaminophen (10-30) ug/ml Urine Barbiturates (Neg) Ur Phencyclidine (PCP) (Neg) U Amphetamin/Meth Scrn (Neg) MDMA (Ecstasy) Screen (Neg) U Benzodiazepines Scrn (Neg) Ur Cocaine Metabolite (Neg) U Marijuana (THC) Screen (Neg) Ethyl Alcohol mg/dL (<10.0) mg/dl SARS-CoV-2, RNA, NAAT (NEGATIVE) 02/24/23 02/24/23 02/24/23 Range/Units 21:33 21:33 21:33 WBC (4.8-10.8) K/ul RBC (4.70-6.10) M/uL Hgb (14.0-18.0) g/dl Hct (42.0-52.0) % MCV (80.0-100.0) fL MCH (25.0-34.0) pg MCHC (32.0-36.0) g/dL RDW Std Deviation (36.4-46.3) fL RDW Coeff of Mars (11.5-14.5) % Plt Count (130-400) K/uL MPV (9.4-12.4) fL Immature Gran % (Auto) % Neut % (Auto) % Lymph % (Auto) % Pettis % (Auto) % Eos % (Auto) % Baso % (Auto) % Neut # (Auto) (1.40-6.50) K/uL Lymph # (Auto) (1.20-3.40) K/uL Pettis # (Auto) (0.11-0.59) K/uL Eos # (Auto) (0.00-0.50) K/uL Baso # (Auto) (0.00-0.20) K/uL Immature Gran # (Auto) (0.01-0.20) K/uL Sodium (136-145) mmol/L Potassium (3.5-5.1) mmol/L Chloride (98-107) mmol/L Carbon Dioxide (21-32) mmol/L Anion Gap (3-11) BUN (6-23) mg/dl Creatinine (0.6-1.4) mg/dl Est Cr Clr Drug Dosing Est GFR ( Amer) ml/min Est GFR (Non-Af Amer) ml/min BUN/Creatinine Ratio (10-20) Glucose (70-99(Fasting)) mg/dl Calcium (8.6-10.3) mg/dl Total Bilirubin (0.2-1.0) mg/dl AST (13-39) U/L ALT (7-52) U/L Alkaline Phosphatase (34-104) U/L Total Protein (6.0-8.3) gm/dl Albumin (3.4-5.0) gm/dl Globulin (2.5-4.0) gm/dl Albumin/Globulin Ratio (0.9-2) TSH (0.300-4.500) uIu/ml Urine Color Urine Appearance (Clear) Urine pH (4.5-7.5) Ur Specific [place] (1.000-1.030) Urine Protein (Negative) Urine Glucose (UA) (Negative) Urine Ketones (Negative) Urine Blood (Negative) Urine Nitrite (Negative) Urine Bilirubin (Negative) Urine Urobilinogen (Negative) Ur Leukocyte Esterase (Negative) Salicylates < 3.0 L (3.0-30) mg/dl Urine Opiates Screen (Neg) Ur Methadone, Qual (Neg) Acetaminophen < 3 L (10-30) ug/ml Urine Barbiturates (Neg) Ur Phencyclidine (PCP) (Neg) U Amphetamin/Meth Scrn (Neg) MDMA (Ecstasy) Screen (Neg) U Benzodiazepines Scrn (Neg) Ur Cocaine Metabolite (Neg) U Marijuana (THC) Screen (Neg) Ethyl Alcohol mg/dL < 10.0 (<10.0) mg/dl SARS-CoV-2, RNA, NAAT NEGATIVE (NEGATIVE) 02/24/23 02/24/23 Range/Units 22:18 22:18 WBC (4.8-10.8) K/ul RBC (4.70-6.10) M/uL Hgb (14.0-18.0) g/dl Hct (42.0-52.0) % MCV (80.0-100.0) fL MCH (25.0-34.0) pg MCHC (32.0-36.0) g/dL RDW Std Deviation (36.4-46.3) fL RDW Coeff of Mars (11.5-14.5) % Plt Count (130-400) K/uL MPV (9.4-12.4) fL Immature Gran % (Auto) % Neut % (Auto) % Lymph % (Auto) % Pettis % (Auto) % Eos % (Auto) % Baso % (Auto) % Neut # (Auto) (1.40-6.50) K/uL Lymph # (Auto) (1.20-3.40) K/uL Pettis # (Auto) (0.11-0.59) K/uL Eos # (Auto) (0.00-0.50) K/uL Baso # (Auto) (0.00-0.20) K/uL Immature Gran # (Auto) (0.01-0.20) K/uL Sodium (136-145) mmol/L Potassium (3.5-5.1) mmol/L Chloride (98-107) mmol/L Carbon Dioxide (21-32) mmol/L Anion Gap (3-11) BUN (6-23) mg/dl Creatinine (0.6-1.4) mg/dl Est Cr Clr Drug Dosing Est GFR ( Amer) ml/min Est GFR (Non-Af Amer) ml/min BUN/Creatinine Ratio (10-20) Glucose (70-99(Fasting)) mg/dl Calcium (8.6-10.3) mg/dl Total Bilirubin (0.2-1.0) mg/dl AST (13-39) U/L ALT (7-52) U/L Alkaline Phosphatase (34-104) U/L Total Protein (6.0-8.3) gm/dl Albumin (3.4-5.0) gm/dl Globulin (2.5-4.0) gm/dl Albumin/Globulin Ratio (0.9-2) TSH (0.300-4.500) uIu/ml Urine Color Yellow Urine Appearance Clear (Clear) Urine pH 6.5 (4.5-7.5) Ur Specific [place] 1.015 (1.000-1.030) Urine Protein Negative (Negative) Urine Glucose (UA) Negative (Negative) Urine Ketones Negative (Negative) Urine Blood Negative (Negative) Urine Nitrite Negative (Negative) Urine Bilirubin Negative (Negative) Urine Urobilinogen Negative (Negative) Ur Leukocyte Esterase Negative (Negative) Salicylates (3.0-30) mg/dl Urine Opiates Screen Neg (Neg) Ur Methadone, Qual Neg (Neg) Acetaminophen (10-30) ug/ml Urine Barbiturates Neg (Neg) Ur Phencyclidine (PCP) Neg (Neg) U Amphetamin/Meth Scrn Neg (Neg) MDMA (Ecstasy) Screen Neg (Neg) U Benzodiazepines Scrn Neg (Neg) Ur Cocaine Metabolite Neg (Neg) U Marijuana (THC) Screen Neg (Neg) Ethyl Alcohol mg/dL (<10.0) mg/dl SARS-CoV-2, RNA, NAAT (NEGATIVE) Discharge Plan Visit Data Chief Complaint: Mental Health Evaluation ED Provider: Orlin Cherry Discharge Problem: Schizophrenia, Depression, Paranoid, Delusional disorder, RONI (acute kidney injury) Forms Stand Alone Forms: [facility], Suicide Prevention Resources Prescriptions Prescriptions: No Action benztropine 1 mg tablet 1 mg PO HS venlafaxine 75 mg capsule,extended release 24hr 75 mg PO QAM cyproheptadine 4 mg tablet 4 mg PO TID pantoprazole 40 mg tablet,delayed release (DR/EC) 40 mg PO QAM docusate sodium 100 mg capsule 200 mg PO BID Daily Multivitamin-Minerals Tablet 1 tab PO QAM cholecalciferol (vitamin D3) [Vitamin D3] 50 mcg (2,000 unit) tablet 50 mcg PO QAM haloperidol 5 mg Tablet 20 mg PO BID Qty: 60 0RF chlorpromazine 25 mg Tablet 50 mg PO TID Qty: 100 0RF Referrals Referrals: PCP,NO [Primary Care Provider] -
[2023-02-24 22:02] LABS: Basophils # (auto) 0.02 K/uL (0.00-0.20); Basophils % (auto) 0.1 %; Hematocrit (blood only) 31.7 % (42.0-52.0); Hemoglobin 11.1 g/dl (14.0-18.0); Immature Granulocytes # (auto) 0.15 K/uL (0.01-0.20); Immature Granulocytes % (auto) 1.1 %; Lymphocytes # (auto) 0.66 K/uL (1.20-3.40); Lymphocytes % (auto) 4.7 %; Mean Corpuscular Hemoglobin 31.5 pg (25.0-34.0); Mean Corpuscular Volume 90.1 fL (80.0-100.0); Monocytes % (auto) 5.7 %; Neutrophils # (auto) 12.45 K/uL (1.40-6.50); Neutrophils % (auto) 88.4 %; Platelet Count 367 K/uL (130-400); RDW Coefficient of Variation 13.6 % (11.5-14.5); RDW Standard Deviation 44.8 fL (36.4-46.3); Red Blood Count 3.52 M/uL (4.70-6.10); White Blood Count 14.08 K/ul (4.8-10.8)
[2023-02-24 22:09] LABS: Albumin Level 4.1 gm/dl (3.4-5.0); Anion Gap 11 (3-11); Bilirubin,Total 0.5 mg/dl (0.2-1.0); Calcium 10.1 mg/dl (8.6-10.3); Carbon Dioxide 25 mmol/L (21-32); Chloride 94 mmol/L (98-107); Potassium 4.5 mmol/L (3.5-5.1); Sodium 130 mmol/L (136-145)
[2023-02-24 22:15] LABS: Alanine Aminotransferase 23 U/L (7-52); Albumin Globulin Ratio 1.3 (0.9-2); Alkaline Phosphatase 126 U/L (34-104); Aspartate Aminotransferase 27 U/L (13-39); BUN Creatinine Ratio 21.4 (10-20); Blood Urea Nitrogen 33 mg/dl (6-23); Est GFR (African American) 59.2 ml/min; Est GFR (Non-African American) 51.1 ml/min; Globulin 3.1 gm/dl (2.5-4.0); Glucose 105 mg/dl (70-99(Fasting)); Total Protein 7.2 gm/dl (6.0-8.3)
[2023-02-24 22:18] LABS: Acetaminophen < 3 ug/ml (10-30); Salicylate < 3.0 mg/dl (3.0-30)
[2023-02-24 22:31] LABS: Appearance Urine Clear (Clear); Bilirubin Urine Negative (Negative); Blood Urine Negative (Negative); Color Urine Yellow; Glucose Urine UA Negative (Negative); Ketones Urine Negative (Negative); Leukocyte Esterase Urine Negative (Negative); Nitrite Urine Negative (Negative); Protein Urine Negative (Negative); Specific Gravity Urine 1.015 (1.000-1.030); Urobilinogen Urine Negative (Negative); pH Urine 6.5 (4.5-7.5)
[2023-02-24 23:02] LABS: Amphetamines+Metham, Urine Neg (Neg); Barbiturates, Urine Neg (Neg); Benzodiazepine, Urine Neg (Neg); Cocaine, Urine Neg (Neg); MDMA (Ecstacy), Urine Neg (Neg); Marijuana, Urine Neg (Neg); Methadone, Urine Neg (Neg); Opiate, Urine Neg (Neg); Phencyclidine, Urine Neg (Neg)
[2023-02-24] MEDS ORDERED: SODIUM CHLORIDE 0.9% 2,000 ML IV ONE (23:47)
[2023-02-25] MEDS ORDERED: chlorproMAZINE HCL 25 MG TAB PO ONE (00:38)
[2023-02-25] MEDS ORDERED: haloperidoL 5 MG TAB PO SCH (00:45)
[2023-02-25] MEDS ORDERED: haloperidoL 1 MG TAB PO SCH (01:00)
[2023-02-25] MEDS: CYPROHEPTADINE HCL 4 MG TAB PO SCH ×3 (01:05→18:24)
--- NOTE | 2023-02-25 01:30 | Emergency Department Note ---
ED Visit Note The patient was taken in signout from Dr. Cherry at the change of shift. Please see that note for details. The patient was pending bed placement for inpatient psychiatric treatment. Bed search is pending. In brief, the patient is a 52-year-old gentleman with past medical history of schizophrenia who presented emergency department for evaluation of worsening symptoms where he is unable to care for himself. He is interested in voluntary placement. Patient's creatinine came back elevated at 1.5 from his baseline that is within normal limits. Referral was made to the hospital service and plan is to reassess after IV fluid hydration. Creatinine subsequently improved within normal limits and so medicine admission deferred. Bed search to resume. Of note, bed search determined to be indicated under 302 given the patient does not have insight to consent for voluntary admission at this time. Patient signed out to Dr. Foote at change of shift. .
[2023-02-25 03:00] LABS: Anion Gap 6 (3-11); BUN Creatinine Ratio 29.6 (10-20); Blood Urea Nitrogen 29 mg/dl (6-23); Calcium 9.1 mg/dl (8.6-10.3); Carbon Dioxide 27 mmol/L (21-32); Chloride 100 mmol/L (98-107); Est GFR (African American) 102.3 ml/min; Est GFR (Non-African American) 88.3 ml/min; Glucose 99 mg/dl (70-99(Fasting)); Potassium 4.1 mmol/L (3.5-5.1); Sodium 133 mmol/L (136-145)
--- NOTE | 2023-02-25 07:17 | Emergency Department Note ---
ED Visit Note I received signout from Dr. Kiran. Patient has a known history of schizophrenia and is a 302 pending placement Patient initially had a creatinine of 1.5 received 2 L of IV fluids creatinine is now normal. Sodium of 133. Home meds ordered. Patient currently pending placement. Patient signed out to Dr. Gastelum pending re-evaluation and treatment. .
[2023-02-25] MEDS ORDERED: [UNRECOGNIZED DRUG - OTHER] PO SCH (09:00)
[2023-02-25] MEDS ORDERED: MULTIVITAMIN WITH MINERALS PO SCH (09:00)
[2023-02-25] MEDS: haloperidoL 5 MG TAB PO SCH ×2 (09:19→20:15)
[2023-02-25] MEDS: VENLAFAXINE HCL XR 75 MG CAPXR PO SCH (09:19)
[2023-02-25] MEDS: PANTOprazole 40 MG TAB PO SCH (09:19)
[2023-02-25] MEDS: DOCUSATE SODIUM 100 MG CAP PO SCH ×2 (09:19→20:15)
[2023-02-25] MEDS: CHOLECALCIFEROL 1,000 UNITS 25 MCG TAB PO SCH (09:20)
[2023-02-25] MEDS: CEROVITE ADV FORMULA TAB PO SCH (11:46)
--- NOTE | 2023-02-25 15:08 | Emergency Department Note ---
ED Visit Note Patient received at [address] Foote. Patient pending bed search. Patient is a pleasant schizophrenic who is currently a 302 requiring bed search. He has been stable. Evaluated mid shift patient is stable, still pending bed search. No acute changes. Patient care signed out to Dr. Castro.
[2023-02-25] MEDS: BENZTROPINE MESYLATE 0.5 MG TAB PO SCH (20:15)
--- NOTE | 2023-02-25 22:51 | Emergency Department Note ---
ED Visit Note 2251: Signout from Dr. Gastelum. 52-year-old male with history of schizophrenia. Medically cleared. 302. Bed search is ongoing. Awaiting placement. 0036: Patient signed out to Dr. Kiran awaiting placement. .
[2023-02-26] MEDS: CYPROHEPTADINE HCL 4 MG TAB PO SCH ×3 (01:01→16:35)
--- NOTE | 2023-02-26 01:55 | Emergency Department Note ---
ED Visit Note The patient was taken in signout from [facility] at the change of shift. The patient was initially seen by Dr. Cherry on 02/24. Please see that note for details. The patient was pending bed search for inpatient psychiatric treatment. In brief, the patient is a 52-year-old gentleman with past medical history of schizophrenia who presented emergency department for evaluation of worsening symptoms where he is unable to care for himself. He is interested in voluntary placement. Patient's creatinine came back elevated at 1.5 from his baseline that is within normal limits. Referral was made to the hospital service and plan is to reassess after IV fluid hydration. Creatinine subsequently improved within normal limits and so medicine admission deferred and the patient was medically cleared. Bed search was initiated under 302 given the patient does not have insight to consent for voluntary admission at this time. Initially there was a possibility of acceptance to [facility] but was declined. Bed search to continue. Patient signed out to Dr. Foote at change of shift. .
--- NOTE | 2023-02-26 08:13 | Emergency Department Note ---
ED Visit Note I received signout from Dr. Kiran. Patient is currently pending placement for psychosis and is a 302. Psych consult placed. Patient was seen by Dr. Smith who had no additional recommendations at this time. Patient was signed out to Dr. Gooden pending reevaluation and disposition. .
[2023-02-26] MEDS: PANTOprazole 40 MG TAB PO SCH (08:23)
[2023-02-26] MEDS: DOCUSATE SODIUM 100 MG CAP PO SCH ×2 (08:23→20:19)
[2023-02-26] MEDS: haloperidoL 5 MG TAB PO SCH ×2 (08:23→20:19)
[2023-02-26] MEDS: CHOLECALCIFEROL 1,000 UNITS 25 MCG TAB PO SCH (08:24)
[2023-02-26] MEDS: VENLAFAXINE HCL XR 75 MG CAPXR PO SCH (08:24)
[2023-02-26] MEDS: CEROVITE ADV FORMULA TAB PO SCH (09:24)
--- NOTE | 2023-02-26 12:22 | Psychiatric Consultation ---
Date of Consultation February 26, 2023 Impression / Recommendations Impression 52 yo man with schizophrenia with multiple recent psychiatric hospitalizations after each has eloped from his prison. Spent about 3 days outside of a hospital setting within the last 4 months. Unclear if hyponatremia on re- presentation to the ED was due to medication side effects (which could contribute to confusion/eloping from prison) versus due to dehydration from being outside all day in high temperatures on 02/24/2023. For now given significant improvement in psychosis symptoms and his preference will continue with haldol and thorazine combination. As noted previously dual antipsychotics are not preferred but he's failed >6 previous trials of antipsychotic monotherapy. If hyponatremia doesn't improve then may need to consider medication adjustments 9though all antipsychotics carry hyponatremia risk). Unclear why he keeps eloping from his prison as no evidence for acute psychosis during evaluation today. Agree with bed search at this time as unlikely to tolerate prison return given failed trial on 02/24/2023. Overall, I spent a total of 60 minutes with this case including review of chart records, review of labwork, direct evaluation of the patient at bedside, counseling the patient, ordering medication, discussion of the patient with the ED provider, discussion with the psychiatric liason during clinical rounds and documentation in the electronic health record. (1) Schizophrenia: (2) Paranoid: Plan -302 commitment with bed search ongoing -Haldol 20mg BID and Thorazine 50mg TID -Effexor XR 75mg daily and cogentin 1mg HS -Discussed with Dr. Foote Psych History Identifying Data UMBERTO DAMIAN is a 52-year-old man who lives in a [place] psychiatric prison with a history of schizophrenia, who eloped after returning to his prison and was found by police wandering with concern for dehydration due to hot temperatures/humidity. Consult is by the ED for "302". Chief Complaint "Cause I wasn't wanted there". History of Present Illness Umberto is well known to the consult and psychiatry service given recent inpatient admission in October 2022 and just followed on the consult service from 02/16/2023 - 02/24/2023 after eloping from his prison and hurting his foot and found to have RSV. After being discharged from the hospital on the morning of 02/24/2023 he apparently returned to his prison and shortly thereafter eloped with a bag of belongings. He was brought to the ED later that evening by police on a 302 petition due to concern that he hadn't been eating or drinking that day and was out in the heat. Since arriving back to the ED he has been cooperative. Tells me he left his prison "cause I wasn't wanted there" but cannot provide any more specifics or examples of this. He continues to find his medication helpful stating "they're good" and denies any SI nor HI nor hallucinations. In past has experienced command AH but he denies this. No overt delusions. Unclear if any paranoia related to his prison but states he feels safe in the ED. Past Psychiatric History Current Psychiatric Diagnosis: Schizophrenia History of Previous Suicide Attempt: Yes (02/06/2018) Allergies Allergy/AdvReac Type Severity Reaction Status Date / Time No Known Allergies Allergy Verified 11/07/22 11:50 Home Medications Medication Instructions Recorded Confirmed Type benztropine 1 mg tablet 1 mg PO HS 02/15/23 02/25/23 History cholecalciferol (vitamin D3) 50 50 mcg PO QAM 02/15/23 02/25/23 History mcg (2,000 unit) tablet (Vitamin D3) cyproheptadine 4 mg tablet 4 mg PO TID 02/15/23 02/25/23 History docusate sodium 100 mg capsule 200 mg PO BID 02/15/23 02/25/23 History multivitamin with minerals (Daily 1 tab PO QAM 02/15/23 02/25/23 History Multivitamin-Minerals tablet) pantoprazole 40 mg tablet,delayed 40 mg PO QAM 02/15/23 02/25/23 History release venlafaxine 75 mg capsule,extended 75 mg PO QAM 02/15/23 02/25/23 History release 24 hr chlorpromazine 25 mg tablet 50 mg PO TID #100 tabs 02/23/23 02/25/23 Rx haloperidol 5 mg tablet 20 mg PO BID #60 tabs 02/23/23 02/25/23 Rx Patient History Medical History Acute hyponatremia Schizophrenia Self-injurious behavior Surgical History No pertinent past surgical history Social History Smoking Status: Unknown if ever smoked Tobacco Type: Cigarettes Hx Alcohol Use: Yes Hx Substance Use: No Preferred Language: Kuwaiti Communication Ability: Impaired Powerhouse [employer] Helper Required: No Beliefs That Will Affect Care: None Current Living Situation: Homeless Feels Safe at Home: Yes Gender Identity: Male Assistive Devices: None Physical Exam Psychiatric: Orientation: alert and oriented x 3 Apperance: appropriately dressed and appropriately groomed Eye Contact: + fair eye contact Motor Be havior: no abnormal motor movements Speech: normal rate/rhythm/volume of speech (quiet) Affect: + constricted affect Mood: no depressed mood and no anxious mood Thought Process: + concrete thought process Thought Content: + paranoid and reality based without delusions Suicidal Thoughts: denies suicidal thoughts, denies suicidal plan and denies suicidal intent Homicidal Thoughts: denies homicidal thoughts Hallucinations: no auditory hallucinations and no visual hallucinations Cognition: recent memory grossly intact, remote memory grossly intact and attention grossly intact Estimated Intelligence: average estimated intelligence Insight: + limited insight Judgment: + limited judgement Vital Signs (Past 24 Hours): Last Vital Signs Temp 36.3 C L 02/25/23 20:21 Pulse 93 H 02/26/23 10:53 Resp 19 02/26/23 10:53 BP 91/59 L 02/26/23 10:53 Pulse Ox 94 02/26/23 10:53 O2 Del Method Room Air 02/26/23 10:53 Review of Systems All systems reviewed & are unremarkable except as noted in HPI & below Results & Data (PSY) Laboratory Results Hyponatremia, improving Medications Administered Benztropine Mesylate (Benztropine Mesylate 0.5 Mg Tab) 1 mg PO HS JOSEMANUEL Stop: 03/27/23 20:59 Last Admin: 02/25/23 20:15 Dose: 1 mg Documented By: TALIA Cyproheptadine HCl (Cyproheptadine Hcl 4 Mg Tab) 4 mg PO Q8H JOSEMANUEL Stop: 03/27/23 00:44 Last Admin: 02/26/23 08:23 Dose: 4 mg Documented By: Admin: 02/26/23 01:01 Dose: 4 mg Documented By: Admin: 02/25/23 18:24 Dose: 4 mg Documented By: Admin: 02/25/23 11:47 Dose: 4 mg Documented By: Admin: 02/25/23 01:05 Dose: 4 mg Documented By: MADELYN Docusate Sodium (Docusate Sodium 100 Mg Cap) 200 mg PO BID JOSEMANUEL Stop: 03/27/23 08:59 Last Admin: 02/26/23 08:23 Dose: 200 mg Documented By: Admin: 02/25/23 20:15 Dose: 200 mg Documented By: Admin: 02/25/23 09:19 Dose: 200 mg Documented By: ALEXANDRIA Haloperidol (Haloperidol 5 Mg Tab) 20 mg PO BID JOSEMANUEL Stop: 03/27/23 08:59 Last Admin: 02/26/23 08:23 Dose: 20 mg Documented By: Admin: 02/25/23 20:15 Dose: 20 mg Documented By: Admin: 02/25/23 09:19 Dose: 20 mg Documented By: ALEXANDRIA Multivitamins/Minerals (Cerovite Adv Formula Tab) 1 tab PO QAM JOSEMANUEL Stop: 03/27/23 08:59 Last Admin: 02/26/23 09:24 Dose: Not Given Documented By: Admin: 02/25/23 11:46 Dose: 1 tab Documented By: LINDA Pantoprazole Sodium (Pantoprazole 40 Mg Tab) 40 mg PO QAM [facility] Stop: 03/27/23 08:59 Last Admin: 02/26/23 08:23 Dose: 40 mg Documented By: Admin: 02/25/23 09:19 Dose: 40 mg Documented By: ALEXANDRIA Venlafaxine HCl (Venlafaxine Hcl Xr 75 Mg Capxr) 75 mg PO QAM [facility] Stop: 03/27/23 08:59 Last Admin: 02/26/23 08:24 Dose: 75 mg Documented By: Admin: 02/25/23 09:19 Dose: 75 mg Documented By: ALEXANDRIA Vitamin D (Cholecalciferol 1,000 Units 25 Mcg Tab) 2,000 units PO QAM JOSEMANUEL Stop: 03/27/23 08:59 Last Admin: 02/26/23 08:24 Dose: 2,000 units Documented By: Admin: 02/25/23 09:20 Dose: 2,000 units Documented By: ALEXANDRIA Coding Level of Care Code 57111 IN/OBS CONSULT LVL 4,60M Diagnoses Schizophrenia F20.9 Paranoid F22 Time Spent (min) 60
[2023-02-26] MEDS: BENZTROPINE MESYLATE 0.5 MG TAB PO SCH (20:19)
[2023-02-26] MEDS: chlorproMAZINE HCL 25 MG TAB PO SCH (20:19)
--- NOTE | 2023-02-27 00:12 | Emergency Department Note ---
ED Visit Note Patient signed out to me at change of shift from Dr. Foote. Patient here on a 302 with psychosis. Bed search is ongoing. Case signed out to Dr. Rangel overnight. .
[2023-02-27] MEDS: CYPROHEPTADINE HCL 4 MG TAB PO SCH ×3 (01:59→17:22)
--- NOTE | 2023-02-27 02:19 | Emergency Department Note ---
ED Visit Note Date and Time: 02/27/2023 0010 Interval History: Sign out received from Dr. Gooden who reviewed details of the encounter. Patient was pending bed placement. Summary: Patient was sleeping throughout the night and and vital signs reviewed. BP 134/75; pulse 78; respiratory rate 16; Temp 36.8; O2 sat was 90% on room air. The case will be signed out to Dr. Padilla at change of shift. This will continue to be a Delegate bed search. .
--- NOTE | 2023-02-27 07:55 | Emergency Department Note ---
ED Visit Note This patient was signed out to me at shift change by Dr. Rangel. The patient has been previously medically cleared and was under 302 petition they were currently doing bed search his medications have been ordered. He was seen by her inpatient mental health team yesterday. At shift change, I did go and evaluate him and he is resting comfortably without complaints. He is cooperative and interactive. He did receive food as well as his meds. The case management called me and said that the patient had a boot and crutches which were at home a fter having a possible ligamentous injury to the foot and fracture. The patient said he is feeling a lot better and the pain has been significantly better. I did order a CT to evaluate this to see if he still needed the boot as the boot and crutches may impair his placement. The CAT scan shows an acute to subacute fracture involving the head of the first proximal phalanx and the base of the first distal phalanx. There is no evidence of Lisfranc injury on CT. I discussed this with Dr. Thompson the on-call orthopedist and he recommends continuing the boot and felt that the patient could likely do without the crutches. I went back and told this to the patient he agrees and feels he can be safe without crutches. He should just walk slowly and have follow-up with orthopedist when he gets done with his mental health treatment. He should be weightbearing as tolerated with the boot. At this point we are still trying to place the patient and he will be signed out at shift change to Dr. Cifuentes. .
[2023-02-27] MEDS: haloperidoL 5 MG TAB PO SCH ×2 (09:33→20:50)
[2023-02-27] MEDS: CHOLECALCIFEROL 1,000 UNITS 25 MCG TAB PO SCH (09:35)
[2023-02-27] MEDS: CEROVITE ADV FORMULA TAB PO SCH (09:35)
[2023-02-27] MEDS: chlorproMAZINE HCL 25 MG TAB PO SCH ×3 (09:35→20:50)
[2023-02-27] MEDS: VENLAFAXINE HCL XR 75 MG CAPXR PO SCH (09:36)
[2023-02-27] MEDS: DOCUSATE SODIUM 100 MG CAP PO SCH ×2 (09:36→20:50)
[2023-02-27] MEDS: PANTOprazole 40 MG TAB PO SCH (09:36)
--- NOTE | 2023-02-27 10:03 | Psychiatric Progress Note ---
Date of Service February 27, 2023 Impression / Recommendations Impression 52 yo man with schizophrenia with multiple recent psychiatric hospitalizations after each has eloped from his care home. Spent about 3 days outside of a hospital setting within the last 4 months. overall I sepnt 36 minutes on this case reviewing record, interviewing patient, and coordinating care with the ED. (1) Schizophrenia: (2) Paranoid: Plan -302 commitment will after 3 am on 03/02 with bed search ongoing -Haldol 20mg BID and Thorazine 50mg TID -Effexor XR 75mg daily and cogentin 1mg HS - Protective Factors Assessment Employed: No Interval History Identifying Information CSAEY DAMIAN is a 52-year-old man who lives in a [place] psychiatric care home with a history of schizophrenia, who eloped after returning to his care home and was found by police wandering with concern for dehydration due to hot temperatures/humidity. Patient is boarding in the ED on 302. Chief Complaint "I feel OK". Review of Systems Notes no SI/HI/fall, no GI, no MADRIGAL, etc. Subjective Subjective Patient was seen & assessed and interval progress reviewed with nursing and social work. Patient has been cooperative with with medications and no agitation in ED. Bed search ongoing. Patient denies halll at this time. He is tolerating medications. Physical Exam Psychiatric Orientation: alert disheveled, gaunt Eye Contact: + fair eye contact Motor Behavior: no abnormal motor movements Speech: normal rate/rhythm/volume of speech (quiet) Affect: + constricted affect Mood: no depressed mood and no anxious mood Thought Process: + concrete thought process Thought Content: + paranoid and reality based without delusions Suicidal Thoughts: denies suicidal thoughts, denies suicidal plan and denies suicidal intent Homicidal Thoughts: denies homicidal thoughts Hallucinations: no auditory hallucinations and no visual hallucinations Vital Signs (Past 24 Hours) Last Vital Signs Temp 36.8 C 02/26/23 13:17 Pulse 78 02/27/23 05:07 Resp 16 02/27/23 05:07 BP 134/75 02/27/23 05:07 Pulse Ox 98 02/27/23 05:07 O2 Del Method Room Air 02/27/23 05:07 Results & Data (U) Current Inpatient Medications Current Inpatient Medications: Current Inpatient Medications Benztropine Mesylate (Benztropine Mesylate 0.5 Mg Tab) 1 mg PO HS JOSEMANUEL Stop: 03/27/23 20:59 Last Admin: 02/26/23 20:19 Dose: 1 mg Chlorpromazine HCl (Chlorpromazine Hcl 25 Mg Tab) 50 mg PO TID JOSEMANUEL Stop: 03/28/23 20:59 Last Admin: 02/27/23 09:35 Dose: 50 mg Cyproheptadine HCl (Cyproheptadine Hcl 4 Mg Tab) 4 mg PO Q8H JOSEMANUEL Stop: 03/27/23 00:44 Last Admin: 02/27/23 09:34 Dose: 4 mg Docusate Sodium (Docusate Sodium 100 Mg Cap) 200 mg PO BID JOSEMANUEL Stop: 03/27/23 08:59 Last Admin: 02/27/23 09:36 Dose: 200 mg Haloperidol (Haloperidol 5 Mg Tab) 20 mg PO BID JOSEMANUEL Stop: 03/27/23 08:59 Last Admin: 02/27/23 09:33 Dose: 20 mg Multivitamins/Minerals (Cerovite Adv Formula Tab) 1 tab PO QAM JOSEMANUEL Stop: 03/27/23 08:59 Last Admin: 02/27/23 09:35 Dose: 1 tab Pantoprazole Sodium (Pantoprazole 40 Mg Tab) 40 mg PO QAM JOSEMANUEL Stop: 03/27/23 08:59 Last Admin: 02/27/23 09:36 Dose: 40 mg Venlafaxine HCl (Venlafaxine Hcl Xr 75 Mg Capxr) 75 mg PO QAM [facility] Stop: 03/27/23 08:59 Last Admin: 02/27/23 09:36 Dose: 75 mg Vitamin D (Cholecalciferol 1,000 Units 25 Mcg Tab) 2,000 units PO QAM [facility] Stop: 03/27/23 08:59 Last Admin: 02/27/23 09:35 Dose: 2,000 units Mental Health & Subst Abuse Tx Therapist Name of Therapist: Lala
--- NOTE | 2023-02-27 14:37 | CT Scan Report ---
CT SCAN OF THE RIGHT FOOT WITHOUT IV CONTRAST CLINICAL HISTORY: Right foot injury. COMPARISON STUDY: No priors. TECHNIQUE: CT scan of the right foot is performed from the distal tibia and fibula to the base of the foot. Images are reviewed in the axial, sagittal, and coronal planes. IV contrast was not administer ed for this examination. A dose lowering technique was utilized adhering to the principles of ALARA. Note that interpretation is significantly suboptimal without current plain film correlate CT DOSE: 600.51 mGy.cm FINDINGS: The skeletal structures are heterogeneously osteopenic. There is an acute to subacute and m ildly displaced intra-articular fracture through the head of the first proximal phalanx. This is best seen on axial image #251. There is an acute to subacute appearing avulsion fracture at the base of t he first distal phalanx seen on image #272. No additional findings are suspicious for acute fracture. There is no CT evidence of Lisfranc injury. Mild osteoarthritic changes seen throughout the foot, gr eatest at the first metatarsophalangeal joint. The ankle mortise is intact. There is generalized atro phy of the regional musculature. The Achilles tendon is intact as imaged. There is a small fluid kolby ection identified along the medial plantar aspect of the heel. This is best seen on axial image #87 o f 179 and measures 1.4 x 3.5 x 2.1 cm. This is mildly complex. Overlying dermal thickening is observe d. There is a dorsal heel spur. IMPRESSION: 1. Acute to subacute fractures involving the head of the first proximal phalanx and the base of the f irst distal phalanx as above. Correlate clinically. 2. No additional acute fracture is clearly seen. 3. Indeterminate mildly complex 3.5 cm fluid collection within the medial plantar soft tissues of the heel. Correlate clinically. ACT 112: Negative or not required by law. Dictated: 02/27/2023 1:10 PM Transcribed: 02/27/2023 1:29 PM Chana [id number] KENYA_Arian [id number] Electronically signed by: Elijah Arvizu M.D. 02/27/2023 2:35 PM
[2023-02-27] MEDS: BENZTROPINE MESYLATE 0.5 MG TAB PO SCH (20:50)
--- NOTE | 2023-02-28 01:00 | Emergency Department Note ---
ED Visit Note Patient was signed out to me at change of shift by Dr. Padilla, patient has ongoing bed search for inpatient psychiatric care for acute psychosis. Plan is currently to wear boot in regards to the patient's foot fracture, per previous provider and documentation patient does not require crutches at this time. Bed search is ongoing, patient was signed out to the overnight physician, Dr. Rangel, pending ongoing bed search for inpatient psychiatric care. Patient remained stable and without need for acute intervention on my part while under my care. .
--- NOTE | 2023-02-28 01:01 | Emergency Department Note ---
ED Visit Note Date and Time: 02/28/2023 100 Interval History: Sign out received from Dr. Cifuentes who reviewed details of the encounter. Patient was pending bed placement. Summary: Patient slept throughout the night. Disposition: The case was signed out to Dr. Padilla at change of shift in the morning. He is familiar with the patient. .
[2023-02-28] MEDS: CYPROHEPTADINE HCL 4 MG TAB PO SCH ×4 (02:46→17:46)
--- NOTE | 2023-02-28 08:45 | Emergency Department Note ---
ED Visit Note This patient was signed out to me at shift change by Dr. Rangel. Bed search does continue. The delegate is coming in this morning, he will be further evaluated by our inpatient psychiatric team. He has proved difficult placement and has been in the ER at this point for several days. The patient was seen by Dr. Simms and she said they would likely be able to take him as an inpatient today they did order orthostatics and his numbers did drop. He has been laying in the ED for couple days not may be drinking enough. I think this is all prerenal he was asymptomatic besides feel little lightheaded , I had an IV established and gave him 1 liter of IV fluid. we will check orthostatics are significantly improved. We did another EKG that showed normal sinus rhythm at a rate of 70. There is no acute ischemic changes or ectopy there is no change compared to 02/16/23. The patient is stable. 3 S. is planning on taking him pending vital signs at 5:00 they did hold his Thorazine. .
[2023-02-28] MEDS: CEROVITE ADV FORMULA TAB PO SCH (09:44)
[2023-02-28] MEDS: DOCUSATE SODIUM 100 MG CAP PO SCH ×2 (09:44→20:51)
[2023-02-28] MEDS: chlorproMAZINE HCL 25 MG TAB PO SCH ×2 (09:44→13:02)
[2023-02-28] MEDS: VENLAFAXINE HCL XR 75 MG CAPXR PO SCH (09:44)
[2023-02-28] MEDS: PANTOprazole 40 MG TAB PO SCH (09:45)
[2023-02-28] MEDS: haloperidoL 5 MG TAB PO SCH ×2 (09:45→20:51)
[2023-02-28] MEDS: CHOLECALCIFEROL 1,000 UNITS 25 MCG TAB PO SCH (09:45)
[2023-02-28] MEDS ORDERED: SODIUM CHLORIDE 0.9% 1,000 ML IV ONE ×2 (12:11→17:58)
--- NOTE | 2023-02-28 14:02 | Psychiatric Progress Note ---
Date of Service February 28, 2023 Impression / Recommendations Impression 52 yo man with schizophrenia with multiple recent psychiatric hospitalizations after each has eloped from his custodial. Spent about 3 days outside of a hospital setting within the last 4 months. note that main indication for inpatient stay at this point is failure of community resources and although patient not openly having much in the way of positive symptoms he has marked negative symptoms that interfere with his ability to care for self outside of the hospital setting and given the unusual nature under which he was injured and inability to be maintained at supervised living ([facility]), inpatient is currently the least restrictive level of care. overall I sepnt 53 minutes on this case reviewing interim progress, interviewing patient, coordinating care with the ED staff, reviewing orthostatic vitals, reviewing with acute care nursing assistant and county delegate for bed placement. (1) Schizophrenia: (2) Paranoid: Plan -302 commitment will after 3 am on 03/02 -as patient was found to be orthostatic by VS, directed to hold 2 pm dose of thorazine, he did receive fluid bolus under direction of Dr. Padilla and I have reviewed repeat. Requesting EKG to evaluate QTc as last EKG was prior to restart of thorazine. -will need to clarify status of any other outpatient commitments on 03/01 as supercedes 302 and would need converted - Protective Factors Assessment Employed: No Interval History Identifying Information CASEY DAMIAN is a 52-year-old man who lives in a [place] psychiatric custodial with a history of schizophrenia, who eloped after returning to his custodial and was found by police wandering with concern for dehydration due to hot temperatures/humidity. Patient is boarding in the ED on 302. Chief Complaint tachy Review of Systems Notes no SI/HI, no GI, no MADRIGAL, denies dizziness. Subjective Subjective Patient was seen & assessed and interval progress reviewed with nursing, ED SW and Dr. Padilla. Patient has remained cooperative in ED, custodial to bring boot to assist ambulation which has also limited some placement options. He is med compliant and denies physical complaints. Physical Exam Psychiatric Orientation: alert Apperance: appropriately groomed Eye Contact: + fair eye contact Motor Behavior: no abnormal motor movements Speech: normal rate/rhythm/volume of speech (quiet) Affect: + constricted affect Mood: no depressed mood and no anxious mood Thought Process: + concrete thought process Thought Content: + paranoid Suicidal Thoughts: denies suicidal thoughts Homicidal Thoughts: denies homicidal thoughts Hallucinations: no auditory hallucinations and no visual hallucinations Estimated Intelligence: average estimated intelligence Vital Signs (Past 24 Hours) Last Vital Signs Temp 36.9 C 02/27/23 13:37 Pulse 102 H 02/28/23 02:46 Resp 20 02/28/23 02:46 BP 92/60 L 02/28/23 02:46 Pulse Ox 99 02/28/23 02:46 O2 Del Method Room Air 02/28/23 02:46 Results & Data ([facility]) Current Inpatient Medications Current Inpatient Medications: Current Inpatient Medications Benztropine Mesylate (Benztropine Mesylate 0.5 Mg Tab) 1 mg PO HS JOSEMANUEL Stop: 03/27/23 20:59 Last Admin: 02/27/23 20:50 Dose: 1 mg Chlorpromazine HCl (Chlorpromazine Hcl 25 Mg Tab) 50 mg PO TID JOSEMANUEL Stop: 03/28/23 20:59 Last Admin: 02/28/23 13:02 Dose: Not Given Cyproheptadine HCl (Cyproheptadine Hcl 4 Mg Tab) 4 mg PO Q8H JOSEMANUEL Stop: 03/27/23 00:44 Last Admin: 02/28/23 09:45 Dose: 4 mg Docusate Sodium (Docusate Sodium 100 Mg Cap) 200 mg PO BID JOSEMANUEL Stop: 03/27/23 08:59 Last Admin: 02/28/23 09:44 Dose: 200 mg Haloperidol (Haloperidol 5 Mg Tab) 20 mg PO BID JOSEMANUEL Stop: 03/27/23 08:59 Last Admin: 02/28/23 09:45 Dose: 20 mg Multivitamins/Minerals (Cerovite Adv Formula Tab) 1 tab PO QAM JOSEMANUEL Stop: 03/27/23 08:59 Last Admin: 02/28/23 09:44 Dose: 1 tab Pantoprazole Sodium (Pantoprazole 40 Mg Tab) 40 mg PO QAM JOSEMANUEL Stop: 03/27/23 08:59 Last Admin: 02/28/23 09:45 Dose: 40 mg Venlafaxine HCl (Venlafaxine Hcl Xr 75 Mg Capxr) 75 mg PO QAM JOSEMANUEL Stop: 03/27/23 08:59 Last Admin: 02/28/23 09:44 Dose: 75 mg Vitamin D (Cholecalciferol 1,000 Units 25 Mcg Tab) 2,000 units PO QAM [facility] Stop: 03/27/23 08:59 Last Admin: 02/28/23 09:45 Dose: 2,000 units Mental Health & Subst Abuse Tx Therapist Name of Therapist: Lala
--- NOTE | 2023-02-28 17:44 | Communication Note ---
Date of Service: February 28, 2023 contacted by ED as patient remains orthostatic, P=118 and 78/52 when standing on recheck. Patient now c/o dizziness per nursing. Dr. Gooden has directed a 2nd fluid bolus. I discontinued thorazine order as will need to be restarted at lower dose when able to restart. Will hold cyproheptadine as believe indication is poor appetite and was held during a recent medical stay due to concerns about tachy and dizziness can be a side effect. will monitor as believe diastolic improved after first bolus and patient is otherwise afebrile, etc so doubt sepsis or NMS but consider CPK and repeat WBC depending on course.
[2023-02-28 18:23] LABS: Basophils # (auto) 0.07 K/uL (0.00-0.20); Basophils % (auto) 1.1 %; Eosinophils # (auto) 0.15 K/uL (0.00-0.50); Eosinophils % (auto) 2.3 %; Hematocrit (blood only) 31.2 % (42.0-52.0); Hemoglobin 10.6 g/dl (14.0-18.0); Immature Granulocytes # (auto) 0.03 K/uL (0.01-0.20); Immature Granulocytes % (auto) 0.5 %; Lymphocytes # (auto) 2.05 K/uL (1.20-3.40); Lymphocytes % (auto) 31.3 %; Mean Corpuscular Hemoglobin 31.5 pg (25.0-34.0); Mean Corpuscular Volume 92.9 fL (80.0-100.0); Mean Platelet Volume 8.8 fL (9.4-12.4); Monocytes # (auto) 0.33 K/uL (0.11-0.59); Neutrophils # (auto) 3.91 K/uL (1.40-6.50); Neutrophils % (auto) 59.8 %; Platelet Count 328 K/uL (130-400); RDW Coefficient of Variation 13.4 % (11.5-14.5); RDW Standard Deviation 45.4 fL (36.4-46.3); Red Blood Count 3.36 M/uL (4.70-6.10); White Blood Count 6.54 K/ul (4.8-10.8)
[2023-02-28 18:42] LABS: Albumin Globulin Ratio 1.3 (0.9-2); Albumin Level 3.5 gm/dl (3.4-5.0); BUN Creatinine Ratio 31.9 (10-20); Bilirubin,Total 0.3 mg/dl (0.2-1.0); Calcium 8.5 mg/dl (8.6-10.3); Creatinine Clr Calc Pharmacy 118.7 ml/min; Est GFR (African American) 126.5 ml/min; Est GFR (Non-African American) 109.1 ml/min; Globulin 2.6 gm/dl (2.5-4.0); Potassium 3.8 mmol/L (3.5-5.1); Total Protein 6.1 gm/dl (6.0-8.3)
[2023-02-28] MEDS: BENZTROPINE MESYLATE 0.5 MG TAB PO SCH (20:51)
[2023-02-28] MEDS ORDERED: ceFAZolin 2000MG 2,000 MG/15 ML SYR IV STA (20:54)
--- NOTE | 2023-02-28 20:54 | Emergency Department Note ---
ED Visit Note Patient signed on to me at change of shift from Dr. Padilla. Patient awaiting repeat vital signs but was excepted to 3 S. Repeat vital signs at 5 PM performed and patient still with symptomatic orthostatic hypotension. This information was relayed to psychiatry, Dr. Levin, who asked for repeat labs given patient has been here for 4 days as well as an orthopedic consult for the known foot fracture. I did reevaluate the patient's left foot which is edematous with very mild overlying erythema. This was not consistent with evolving cellulitis clinically. Nursing staff has noted the patient has been walking on this foot despite the fracture. Patient signed out to Dr. Rangel overnight. .
--- NOTE | 2023-02-28 21:43 | Hospitalist Consultation ---
Date of Consultation February 28, 2023 Assessment & Plan (1) Foot fracture, left: CT of the foot obtained with results above. Revealed acute to subacute fractures of the head of the first proximal phalanx and the base of the first distal phalanx. He does have an indeterminate mildly complex 3.5 cm fluid co llection within the medial plantar soft tissues of the heel. This correlates with the area of the foot that is fluctuant and tender. Orthopedic surgery has been consultedappreciate input Patient does not seem to be in acute discomfort at this time. Will hold off on pain medications for now. Encourage patient to rest his foot as tolerated and avoid ambulation until he is further evaluated by orthopedics (2) Orthostatic hypotension: patient's hemodynamics have improved after receiving IV fluid in the ER. He is able to eat and drink without difficulty but may need some encouragement. Labs were unremarkable with normal renal function and electrolytes Encourage oral intake (3) Schizophrenia: Chronic. Stable. Continue home medications Psychiatry management appreciated Patient will require an ongoing 1:1 at this time. There is no staff available for this task overnight tonight so patient will remain in the ER. For now, will continue to follow. He is to be seen by Orthopedic Surgery in the morning. Will reassess History of Present Illness Reason for Consultation: elevated heart rate, orthostatic hypotension History of Present Illness Umberto Eagle is a 52-year-old male with history of schizophrenia and multiple hospitalizations presenting to [facility] the ER on 02/24/2023 As a 302after eloping from his [facility]pc. Patient reportedly has not been eating or drinking well at home. Uncertain if he has been taking his medications as prescribed. Patient has been boarding in the emergency room, awaiting placement. Today he was noted to have elevated heart rate and orthostatic hypotension. Also with swelling of his right foot. Patient was given cefazolin as well as normal saline solution x3 L today. During my encounter, he was resting comfortably in bed with no acute complaints. He states that his foot does hurt when he walks on it but feels fairly comfortable at rest. He denies chest pain, shortness of breath, abdominal pain, nausea, vomiting, diarrhea. No additional complaints at this time Allergies Allergy/AdvReac Type Severity Reaction Status Date / Time No Known Allergies Allergy Verified 11/07/22 11:50 Home Medications Medication Instructions Recorded Confirmed Type benztropine 1 mg tablet 1 mg PO HS 02/15/23 02/25/23 History cholecalciferol (vitamin D3) 50 50 mcg PO QAM 02/15/23 02/25/23 History mcg (2,000 unit) tablet (Vitamin D3) cyproheptadine 4 mg tablet 4 mg PO TID 02/15/23 02/25/23 History docusate sodium 100 mg capsule 200 mg PO BID 02/15/23 02/25/23 History multivitamin with minerals (Daily 1 tab PO QAM 02/15/23 02/25/23 History Multivitamin-Minerals tablet) pantoprazole 40 mg tablet,delayed 40 mg PO QAM 02/15/23 02/25/23 History release venlafaxine 75 mg capsule,extended 75 mg PO QAM 02/15/23 02/25/23 History release 24 hr chlorpromazine 25 mg tablet 50 mg PO TID #100 tabs 02/23/23 02/25/23 Rx haloperidol 5 mg tablet 20 mg PO BID #60 tabs 02/23/23 02/25/23 Rx Patient History Medical History Acute hyponatremia Schizophrenia Self-injurious behavior Surgical History No pertinent past surgical history Social History Smoking Status: Unknown if ever smoked Tobacco Type: Cigarettes Hx Alcohol Use: Yes Hx Substance Use: No Preferred Language: Mongolian Communication Ability: Impaired Tax Professional Required: No Beliefs That Will Affect Care: None Current Living Situation: Homeless Feels Safe at Home: Yes Gender Identity: Male Assistive Devices: None Review of Systems Review of Systems: All systems reviewed & are unremarkable except as noted in HPI & below Physical Exam Physical Exam: General: patient resting comfortably, NAD, non-toxic in appearance, AA&O x 4 Skin: warm, dry, intact, no rashes or lesions HEENT: NC/AT, PERRL, EOMI, anicteric sclera, conjunctiva without injection, external ear normal to inspection and nontender, nares patent, moist mucus membranes, dentition intact, no oropharyngeal lesions, neck supple, trachea midline, no LAD, no thyromegaly, no JVD Heart: +S1/S2, regular, no m/r/g Lungs: equal air entry bilaterally, no rales/rhonchi/wheezes Abd: +BS, soft, NT/ND, no masses/organomegaly/ascites Ext: warm, 2+ pulses in UE/LE bilaterally, no clubbing/cyanosis or edema Neuro: nonfocal, patient AA&O x 4, speech intact, no facial droop, moving all extremities on command with equal strength 5/5 Scattered wounds noted on bilateral lower extremities and feet with no active bleeding or evidence of secondary infection. Swelling and tenderness of the right foot with mild fluctuance in the arch Results & Data Results & Data Vital Signs (Past 12 Hours) Vital Signs Pulse Resp BP Pulse Ox 02/28/23 18:24 78 20 117/66 98 Laboratory Results Laboratory Results WBC 6.54 K/ul (4.8-10.8) 02/28/23 18:11 RBC 3.36 M/uL (4.70-6.10) L 02/28/23 18:11 Hgb 10.6 g/dl (14.0-18.0) L 02/28/23 18:11 Hct 31.2 % (42.0-52.0) L 02/28/23 18:11 MCV 92.9 fL (80.0-100.0) 02/28/23 18:11 MCH 31.5 pg (25.0-34.0) 02/28/23 18:11 MCHC 34.0 g/dL (32.0-36.0) 02/28/23 18:11 RDW Std Deviation 45.4 fL (36.4-46.3) 02/28/23 18:11 RDW Coeff of Mars 13.4 % (11.5-14.5) 02/28/23 18:11 Plt Count 328 K/uL (130-400) 02/28/23 18:11 MPV 8.8 fL (9.4-12.4) L 02/28/23 18:11 Immature Gran % (Auto) 0.5 % 02/28/23 18:11 Neut % (Auto) 59.8 % 02/28/23 18:11 Lymph % (Auto) 31.3 % 02/28/23 18:11 [place] % (Auto) 5.0 % 02/28/23 18:11 Eos % (Auto) 2.3 % 02/28/23 18:11 Baso % (Auto) 1.1 % 02/28/23 18:11 Neut # (Auto) 3.91 K/uL (1.40-6.50) 02/28/23 18:11 Lymph # (Auto) 2.05 K/uL (1.20-3.40) 02/28/23 18:11 [place] # (Auto) 0.33 K/uL (0.11-0.59) 02/28/23 18:11 Eos # (Auto) 0.15 K/uL (0.00-0.50) 02/28/23 18:11 Baso # (Auto) 0.07 K/uL (0.00-0.20) 02/28/23 18:11 Immature Gran # (Auto) 0.03 K/uL (0.01-0.20) 02/28/23 18:11 Sodium 138 mmol/L (136-145) 02/28/23 18:11 Potassium 3.8 mmol/L (3.5-5.1) 02/28/23 18:11 Chloride 105 mmol/L (98-107) 02/28/23 18:11 Carbon Dioxide 28 mmol/L (21-32) 02/28/23 18:11 Anion Gap 5 (3-11) 02/28/23 18:11 BUN 22 mg/dl (6-23) 02/28/23 18:11 Creatinine 0.69 mg/dl (0.6-1.4) 02/28/23 18:11 Est Cr Clr Drug Dosing 118.7 ml/min 02/28/23 18:11 Est GFR ( Amer) 126.5 ml/min 02/28/23 18:11 Est GFR (Non-Af Amer) 109.1 ml/min 02/28/23 18:11 BUN/Creatinine Ratio 31.9 (10-20) H 02/28/23 18:11 Glucose 129 mg/dl (70-99(Fasting)) H 02/28/23 18:11 Calcium 8.5 mg/dl (8.6-10.3) L 02/28/23 18:11 Total Bilirubin 0.3 mg/dl (0.2-1.0) 02/28/23 18:11 AST 12 U/L (13-39) L 02/28/23 18:11 ALT 13 U/L (7-52) 02/28/23 18:11 Alkaline Phosphatase 133 U/L (34-104) H 02/28/23 18:11 Total Creatine Kinase 76 U/L (30-223) 02/28/23 18:11 Total Protein 6.1 gm/dl (6.0-8.3) 02/28/23 18:11 Albumin 3.5 gm/dl (3.4-5.0) 02/28/23 18:11 Globulin 2.6 gm/dl (2.5-4.0) 02/28/23 18:11 Albumin/Globulin Ratio 1.3 (0.9-2) 02/28/23 18:11 TSH 1.987 uIu/ml (0.300-4.500) 02/24/23 21:33 Urine Color Yellow 02/24/23 22:18 Urine Appearance Clear (Clear) 02/24/23 22:18 Urine pH 6.5 (4.5-7.5) 02/24/23 22:18 Ur Specific Marshall 1.015 (1.000-1.030) 02/24/23 22:18 Urine Protein Negative (Negative) 02/24/23 22:18 Urine Glucose (UA) Negative (Negative) 02/24/23 22:18 Urine Ketones Negative (Negative) 02/24/23 22:18 Urine Blood Negative (Negative) 02/24/23 22:18 Urine Nitrite Negative (Negative) 02/24/23 22:18 Urine Bilirubin Negative (Negative) 02/24/23 22:18 Urine Urobilinogen Negative (Negative) 02/24/23 22:18 Ur Leukocyte Esterase Negative (Negative) 02/24/23 22:18 Salicylates < 3.0 mg/dl (3.0-30) L 02/24/23 21:33 Urine Opiates Screen Neg (Neg) 02/24/23 22:18 Ur Methadone, Qual Neg (Neg) 02/24/23 22:18 Acetaminophen < 3 ug/ml (10-30) L 02/24/23 21:33 Urine Barbiturates Neg (Neg) 02/24/23 22:18 Ur Phencyclidine (PCP) Neg (Neg) 02/24/23 22:18 U Amphetamin/Meth Scrn Neg (Neg) 02/24/23 22:18 MDMA (Ecstasy) Screen Neg (Neg) 02/24/23 22:18 U Benzodiazepines Scrn Neg (Neg) 02/24/23 22:18 Ur Cocaine Metabolite Neg (Neg) 02/24/23 22:18 U Marijuana (THC) Screen Neg (Neg) 02/24/23 22:18 Ethyl Alcohol mg/dL < 10.0 mg/dl (<10.0) 02/24/23 21:33 HIV (1&2) Ag & Ab Conf Cancelled 02/25/23 01:07 SARS-CoV-2, RNA, NAAT NEGATIVE (NEGATIVE) 02/24/23 21:[address] 02/27/23 11:39 CT SCAN OF THE RIGHT FOOT WITHOUT IV CONTRAST CLINICAL HISTORY: Right foot injury. COMPARISON STUDY: No priors. TECHNIQUE: CT scan of the right foot is performed from the distal tibia and fibula to the base of the foot. Images are reviewed in the axial, sagittal, and coronal planes. IV contrast was not administered for this examination. A dose lowering technique was utilized adhering to the principles of ALARA. Note that interpretation is significantly suboptimal without current plain film correlate CT DOSE: 600.51 mGy.cm FINDINGS: The skeletal structures are heterogeneously osteopenic. There is an acute to subacute and mildly displaced intra-articular fracture through the head of the first proximal phalanx. This is best seen on axial image #251. There is an acute to subacute appearing avulsion fracture at the base of the first distal phalanx seen on image #272. No additional findings are suspicious for acute fracture. There is no CT evidence of Lisfranc injury. Mild osteoarthritic changes seen throughout the foot, greatest at the first metatarsophalangeal joint. The ankle mortise is intact. There is generalized atrophy of the regional musculature. The Achilles tendon is intact as imaged. There is a small fluid collection identified along the medial plantar aspect of the heel. This is best seen on axial image #87 of 179 and measures 1.4 x 3.5 x 2.1 cm. This is mildly complex. Overlying dermal thickening is observed. There is a dorsal heel spur. IMPRESSION: 1. Acute to subacute fractures involving the head of the first proximal phalanx and the base of the first distal phalanx as above. Correlate clinically. 2. No additional acute fracture is clearly seen. 3. Indeterminate mildly complex 3.5 cm fluid collection within the medial plantar soft tissues of the heel. Correlate clinically. ACT 112: Negative or not required by law. Dictated: 02/27/2023 1:10 PM Transcribed: 02/27/2023 1:29 PM Jesseaustin [id number] KENYA_Arian [id number] Electronically signed by: Elijah Arvizu M.D. 02/27/2023 2:35 PM PG Care Time/CCT Total # of Minutes Spent Total Time Spent with Patient: Total time spent is greater than 50% in coordination of care (as documented) at patient's floor/unit and/or counseling patient: Coding Level of Care Code 81858 IN/OBS CONSULT LVL 3,45M Diagnoses Foot fracture, left S92.902A Encounter type: initial encounter Fracture type: closed Orthostatic hypotension I95.1 Schizophrenia F20.9 (1) Foot fracture, left Encounter type: initial encounter Fracture type: closed Qualified Code(s): S92.902A - Unspecified fracture of left foot, initial encounter for closed fracture
--- NOTE | 2023-03-01 02:48 | Emergency Department Note ---
ED Visit Note Date and Time: 03/01/2023 0030 Interval History: Sign out received from Dr. Gooden who reviewed details of the encounter. Patient was has been accepted by 3 S. for admission. Summary: Patient will be evaluated by orthopedics this morning for consult and then 3 S. will take the monitor unit. Patient rested overnight. Total Time: 105 hours .
[2023-03-01] MEDS: CHOLECALCIFEROL 1,000 UNITS 25 MCG TAB PO SCH (09:20)
[2023-03-01] MEDS: DOCUSATE SODIUM 100 MG CAP PO SCH ×2 (09:20→21:38)
[2023-03-01] MEDS: haloperidoL 5 MG TAB PO SCH ×2 (09:20→21:38)
[2023-03-01] MEDS: CEROVITE ADV FORMULA TAB PO SCH (09:20)
[2023-03-01] MEDS: PANTOprazole 40 MG TAB PO SCH (09:20)
[2023-03-01] MEDS: VENLAFAXINE HCL XR 75 MG CAPXR PO SCH (09:20)
--- NOTE | 2023-03-01 11:26 | Electrocardiogram Report ---
Test Reason : Blood Pressure : / mmHG Vent. Rate : 070 BPM Atrial Rate : 070 BPM P-R Int : 184 ms QRS Dur : 072 ms QT Int : 404 ms P-R-T Axes : 070 048 049 degrees QTc Int : 436 ms Normal sinus rhythm Normal ECG When compared with ECG of 16-FEB-2023 07:59, No significant change was found Confirmed by Steven Acuña ([id number]) on 03/01/2023 11:25:35 AM Referred By: REFERRED SELF Confirmed By:Steven Acuña
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
--- NOTE | 2023-03-01 15:34 | Emergency Department Note ---
ED Visit Note Patient was signed out to me this morning with plan for admission to 3 S. after an orthopedic consultation. I called orthopedist on-call, Dr. Abarca, to discuss patient's orthopedic abnormalities. The patient has been walking on his foot fractures since his initial presentation to the emergency department. He has a notable ecchymotic and erythematous region to the left lateral foot but no evidence of open wounds around his fracture site. I discussed the case with Dr. Abarca who recommended the patient be placed in a hard soled shoe and follow- up on an outpatient basis with their clinic for evaluation by podiatry. Patient does not have any evidence of infection of the foot to suggest that he needs IV or oral antibiotics at this time. His white blood cell count is normal and does not suggest any underlying infection. I discussed the orthopedic recommendations with psychiatry, Dr. Simms, who accepted the patient to the inpatient psych unit. .
[2023-03-01] MEDS ORDERED: MAGNESIUM HYDROXIDE SUSP 30 ML UDC PO PRN (17:15)
[2023-03-01] MEDS ORDERED: ALUMINUM/MAGNESIUM SUSP 30 ML UDC PO PRN (17:15)
[2023-03-01] MEDS ORDERED: SODIUM CHLORIDE 0.65% NA SOLN 45 ML (OCEAN) PRN (17:15)
[2023-03-01] MEDS ORDERED: hydrOXYzine HCl 25 MG TAB PO PRN ×2 (17:15)
[2023-03-01] MEDS ORDERED: BISMUTH SUBSALICYLATE LIQD 236 ML PO PRN (17:15)
[2023-03-01] MEDS: BENZTROPINE MESYLATE 1 MG TAB PO SCH (21:37)
[2023-03-02] MEDS: CHOLECALCIFEROL 5,000 UNITS 125 MCG TAB PO SCH (09:35)
[2023-03-02] MEDS: DOCUSATE SODIUM 100 MG CAP PO SCH ×2 (09:35→21:05)
[2023-03-02] MEDS: PANTOprazole 40 MG TAB PO SCH (09:36)
[2023-03-02] MEDS: CEROVITE ADV FORMULA TAB PO SCH (09:36)
[2023-03-02] MEDS: haloperidoL 5 MG TAB PO SCH ×2 (09:36→21:05)
[2023-03-02] MEDS: VENLAFAXINE HCL XR 75 MG CAPXR PO SCH (09:36)
--- NOTE | 2023-03-02 16:15 | History & Physical ---
Date of Service March 02, 2023 Impression / Recommendations Impression 52 yo man with schizophrenia with multiple recent psychiatric hospitalizations after each has eloped from his alf. Spent about 3 days outside of a hospital setting within the last 4 months. note that main indication for inpatient stay at this point is failure of community resources and although patient not openly having much in the way of positive symptoms he has marked negative symptoms that interfere with his ability to care for self outside of the hospital setting and given the unusual nature under which he was injured and inability to be maintained at supervised living (CRR), inpatient is currently the least restrictive level of care. overall I sepnt 33 minutes on this case reviewing interim progress, interviewing patient, treatment team discussion around state hospital referral.. (1) Schizophrenia: (2) Paranoid: Plan The patient was admitted to the [facility] ([facility] mental health unit) on q15 min checks (behavioral with suicide precautions) for safety. The patient will participate in group, recreational, and milieu therapies and will be offered additional individual and family sessions as clinically appropriate. Co ntinue to hold thorazine and monitor BP. Inventory Assets Strengths: taking PO meds, cooperative with tx plan Needs: longer term hospitalization, medical monitoring Suicide Risk Level Suicide Risk Level: Moderate (q15 min suicide checks) Risk Factors Assessment Male: Yes : Yes Do You Have Access To A Gun?: No Mental Health Diagnoses: Yes Previous Attempt: Yes Previous Psychiatric Hospitalization: Yes Protective Factors Assessment Employed: No Psychiatric History Identifying Data UMBERTO DAMIAN is a 52-year-old M who currently lives in [facility], has a history of schizophrenia with multiple hospitalizations, and was admitted on 03/01/23 15:59 on a 303 involuntary] commitment for inability to care for self due to negative symptoms of schizophrenia. note admit order was entered yesterday at 1359, there was delay in arrival to unit and charting, he was seen twice within 24 hrs of admission. Chief Complaint "[]". History of Present Illness as per Dr. Smith on 02/26 while boarding in ED: Umberto is well known to the consult and psychiatry service given recent inpatient admission in October 2022 and just followed on the consult service from 02/16/2023 - 02/24/2023 after eloping from his alf and hurting his foot and found to have RSV. After being discharged from the hospital on the morning of 02/24/2023 he apparently returned to his alf and shortly thereafter eloped with a bag of belongings. He was brought to the ED later that evening by police on a 302 petition due to concern that he hadn't been eating or drinking that day and was out in the heat. Since arriving back to the ED he has been cooperative. Tells me he left his alf "cause I wasn't wanted there" but cannot provide any more specifics or examples of this. He continues to find his medication helpful stating "they're good" and denies any SI nor HI nor hallucinations. In past has experienced command AH but he denies this. No overt delusions. Unclear if any paranoia related to his alf but states he feels safe in the ED. The patient remained cooperative in the ED. Thorazine was ultimately held due to some episodes of orthostatic hypotension which required fluid boluses. He was seen by hospitalist service and cleared by ortho prior to coming to our unit. Today he denies dizziness, is ambulating well to the BR with his hard shoe. Past Psychiatric History Previous Psych History: Current Psychiatric Diagnosis: Schizophrenia Outpatient Services: Liya Dowell at [facility] for psychiatry, Freda at [facility] for therapy, lives at [facility], no current CM Previous Psych Admissions: multiple-last at [facility] [place] 11/10, admit [facility] soon after [facility] multiple times [facility] [place] in 2010 2 hospitalizations in [place] in 1994 Do You Have Access To A Gun?: No History of Previous Suicide Attempt: Yes Describe Attempts in the Past: cut throat in 2018 resulted in ICU admission, hx cutting arm Past Medication Trials: Per chart review from H&P on 06/2020: "Quetiapine -2018, stopped it prior to decompensating, attempting suicide by cutting his neck, and being admitted to the [facility] Risperidone Ziprasidone Haloperidol Chlorpromazine" Current Psychiatric Diagnosis: Schizophrenia Do You Have Access To A Gun?: No History of Previous Suicide Attempt: Yes (02/06/2018) Allergies Allergy/AdvReac Type Severity Reaction Status Date / Time No Known Allergies Allergy Verified 11/07/22 11:50 Home Medications Medication Instructions Recorded Confirmed Type benztropine 1 mg tablet 1 mg PO HS 02/15/23 02/25/23 History cholecalciferol (vitamin D3) 50 50 mcg PO QAM 02/15/23 02/25/23 History mcg (2,000 unit) tablet (Vitamin D3) cyproheptadine 4 mg tablet 4 mg PO TID 02/15/23 02/25/23 History docusate sodium 100 mg capsule 200 mg PO BID 02/15/23 02/25/23 History multivitamin with minerals (Daily 1 tab PO QAM 02/15/23 02/25/23 History Multivitamin-Minerals tablet) pantoprazole 40 mg tablet,delayed 40 mg PO QAM 02/15/23 02/25/23 History release venlafaxine 75 mg capsule,extended 75 mg PO QAM 02/15/23 02/25/23 History release 24 hr chlorpromazine 25 mg tablet 50 mg PO TID #100 tabs 02/23/23 02/25/23 Rx haloperidol 5 mg tablet 20 mg PO BID #60 tabs 02/23/23 02/25/23 Rx Family History Family History of: Doesn't Know Alcohol History Hx of Alcohol Use Over the Past 12 Months: No Smoking Use Have You Smoked or Used Tobacco Products in the Last 30 Days: Yes tobacco type: cigarettes Smoking Status: Current every day smoker Smoking packs per day: 1 Substance History Hx of Prescription Med Misuse Over the Past 12 Months: No Hx of Over the Counter Med Misuse Over the Past 12 Months: No Hx of Inhalent Misuse Over the Past 12 Months: No Hx of Organic Substance Use Over the Past 12 Months: No Hx of Illegal Substances/Street Drug Use Over Past 12 Months: No Problems as a Result of Past Substance Use: None Identified Personal History Living Arrangements: Supervised Living Highest Grade Completed: High School Graduate Marital Status: Single Number Of Children: 0 Beliefs That Will Affect Care: None Hx Legal Problems: Yes (Arrested once about 10 years ago for disorderly conduct) Hx Traumatic Life Events: No Patient History Medical History Acute hyponatremia Schizophrenia Self-injurious behavior Surgical History No pertinent past surgical history Social History Smoking Status: Current every day smoker Tobacco Type: Cigarettes Hx Alcohol Use: Yes Hx Substance Use: No Preferred Language: German Communication Ability: Effective Oxygen System Tester Required: No Beliefs That Will Affect Care: None Current Living Situation: Homeless Feels Safe at Home: Yes Gender Identity: Male Assistive Devices: Glasses, Special Shoe and Other Review of Systems Review of Systems: All systems reviewed & are unremarkable except as noted in HPI & below Physical Exam Psychiatric: Orientation: alert and oriented x 3 Apperance: appropriately dressed and appropriately groomed Eye Contact: + fair eye contact Motor Behavior: no abnormal motor movements Speech: normal rate/rhythm/volume of speech (quiet) Affect: + constricted affect Mood: no depressed mood and no anxious mood Thought Process: + concrete thought process Thought Content: + paranoid; no delusions Suicidal Thoughts: denies suicidal thoughts, denies suicidal plan and denies suicidal intent Homicidal Thoughts: denies homicidal thoughts Hallucinations: no auditory hallucinations and no visual hallucinations Cognition: recent memory grossly intact, remote memory grossly intact and attention grossly intact Estimated Intelligence: average estimated intelligence Insight: + limited insight Judgment: + limited judgement Vital Signs (Past 24 Hours): Last Vital Signs Temp 37 C 03/02/23 06:38 Pulse 103 H 03/02/23 06:39 Resp 16 03/02/23 06:38 BP 100/68 03/02/23 06:39 Pulse Ox 98 03/01/23 16:57 O2 Del Method Room Air 03/01/23 16:57 Exam Statement: A physical exam was performed in the ED by [facility] providers for the purposes of medical clearance. I accept Dr. Wilson's physical as correct and adequate for the purposes of the inpatient physical exam. Results & Data ([facility]) Laboratory Results Labs 02/24/23 02/24/23 02/24/23 21:33 21:33 21:33 WBC 14.08 H RBC 3.52 L Hgb 11.1 L Hct 31.7 L MCV 90.1 MCH 31.5 MCHC 35.0 RDW Std Deviation 44.8 RDW Coeff of Mars 13.6 Plt Count 367 MPV 9.0 L Immature Gran % (Auto) 1.1 Neut % (Auto) 88.4 Lymph % (Auto) 4.7 Knox % (Auto) 5.7 Eos % (Auto) 0.0 Baso % (Auto) 0.1 Neut # (Auto) 12.45 H Lymph # (Auto) 0.66 L Knox # (Auto) 0.80 H Eos # (Auto) 0.00 Baso # (Auto) 0.02 Immature Gran # (Auto) 0.15 Sodium 130 L Potassium 4.5 Chloride 94 L Carbon Dioxide 25 Anion Gap 11 BUN 33 H Creatinine 1.54 H Est Cr Clr Drug Dosing Not Reportable Est GFR ( Amer) 59.2 Est GFR (Non-Af Amer) 51.1 BUN/Creatinine Ratio 21.4 H Glucose 105 H Calcium 10.1 Total Bilirubin 0.5 AST 27 ALT 23 Alkaline Phosphatase 126 H Total Creatine Kinase Total Protein 7.2 Albumin 4.1 Globulin 3.1 Albumin/Globulin Ratio 1.3 TSH 1.987 Urine Color Urine Appearance Urine pH Ur Specific Orange Urine Protein Urine Glucose (UA) Urine Ketones Urine Blood Urine Nitrite Urine Bilirubin Urine Urobilinogen Ur Leukocyte Esterase Salicylates Urine Opiates Screen Ur Methadone, Qual Acetaminophen Urine Barbiturates Ur Phencyclidine (PCP) U Amphetamin/Meth Scrn MDMA (Ecstasy) Screen U Benzodiazepines Scrn Ur Cocaine Metabolite U Marijuana (THC) Screen Ethyl Alcohol mg/dL HIV (1&2) Ag & Ab Conf SARS-CoV-2, RNA, NAAT 02/24/23 02/24/23 02/24/23 21:33 21:33 21:33 WBC RBC Hgb Hct MCV MCH MCHC RDW Std Deviation RDW Coeff of Mars Plt Count MPV Immature Gran % (Auto) Neut % (Auto) Lymph % (Auto) Knox % (Auto) Eos % (Auto) Baso % (Auto) Neut # (Auto) Lymph # (Auto) Knox # (Auto) Eos # (Auto) Baso # (Auto) Immature Gran # (Auto) Sodium Potassium Chloride Carbon Dioxide Anion Gap BUN Creatinine Est Cr Clr Drug Dosing Est GFR ( Amer) Est GFR (Non-Af Amer) BUN/Creatinine Ratio Glucose Calcium Total Bilirubin AST ALT Alkaline Phosphatase Total Creatine Kinase Total Protein Albumin Globulin Albumin/Globulin Ratio TSH Urine Color Urine Appearance Urine pH Ur Specific Orange Urine Protein Urine Glucose (UA) Urine Ketones Urine Blood Urine Nitrite Urine Bilirubin Urine Urobilinogen Ur Leukocyte Esterase Salicylates < 3.0 L Urine Opiates Screen Ur Methadone, Qual Acetaminophen < 3 L Urine Barbiturates Ur Phencyclidine (PCP) U Amphetamin/Meth Scrn MDMA (Ecstasy) Screen U Benzodiazepines Scrn Ur Cocaine Metabolite U Marijuana (THC) Screen Ethyl Alcohol mg/dL < 10.0 HIV (1&2) Ag & Ab Conf SARS-CoV-2, RNA, NAAT NEGATIVE 02/24/23 02/24/23 02/25/23 22:18 22:18 01:07 WBC RBC Hgb Hct MCV MCH MCHC RDW Std Deviation RDW Coeff of Mars Plt Count MPV Immature Gran % (Auto) Neut % (Auto) Lymph % (Auto) Knox % (Auto) Eos % (Auto) Baso % (Auto) Neut # (Auto) Lymph # (Auto) Knox # (Auto) Eos # (Auto) Baso # (Auto) Immature Gran # (Auto) Sodium 133 L Potassium 4.1 Chloride 100 Carbon Dioxide 27 Anion Gap 6 BUN 29 H Creatinine 0.98 D Est Cr Clr Drug Dosing Not Reportable Est GFR ( Amer) 102.3 Est GFR (Non-Af Amer) 88.3 BUN/Creatinine Ratio 29.6 H Glucose 99 Calcium 9.1 Total Bilirubin AST ALT Alkaline Phosphatase Total Creatine Kinase Total Protein Albumin Globulin Albumin/Globulin Ratio TSH Urine Color Yellow Urine Appearance Clear Urine pH 6.5 Ur Specific Orange 1.015 Urine Protein Negative Urine Glucose (UA) Negative Urine Ketones Negative Urine Blood Negative Urine Nitrite Negative Urine Bilirubin Negative Urine Urobilinogen Negative Ur Leukocyte Esterase Negative Salicylates Urine Opiates Screen Neg Ur Methadone, Qual Neg Acetaminophen Urine Barbiturates Neg Ur Phencyclidine (PCP) Neg U Amphetamin/Meth Scrn Neg MDMA (Ecstasy) Screen Neg U Benzodiazepines Scrn Neg Ur Cocaine Metabolite Neg U Marijuana (THC) Screen Neg Ethyl Alcohol mg/dL HIV (1&2) Ag & Ab Conf SARS-CoV-2, RNA, NAAT 02/25/23 02/28/23 02/28/23 01:07 18:11 18:11 WBC 6.54 RBC 3.36 L Hgb 10.6 L Hct 31.2 L MCV 92.9 MCH 31.5 MCHC 34.0 RDW Std Deviation 45.4 RDW Coeff of Mars 13.4 Plt Count 328 MPV 8.8 L Immature Gran % (Auto) 0.5 Neut % (Auto) 59.8 Lymph % (Auto) 31.3 Knox % (Auto) 5.0 Eos % (Auto) 2.3 Baso % (Auto) 1.1 Neut # (Auto) 3.91 Lymph # (Auto) 2.05 Knox # (Auto) 0.33 Eos # (Auto) 0.15 Baso # (Auto) 0.07 Immature Gran # (Auto) 0.03 Sodium 138 Potassium 3.8 Chloride 105 Carbon Dioxide 28 Anion Gap 5 BUN 22 Creatinine 0.69 Est Cr Clr Drug Dosing 118.7 Est GFR ( Amer) 126.5 Est GFR (Non-Af Amer) 109.1 BUN/Creatinine Ratio 31.9 H Glucose 129 H Calcium 8.5 L Total Bilirubin 0.3 AST 12 L ALT 13 Alkaline Phosphatase 133 H Total Creatine Kinase 76 Total Protein 6.1 Albumin 3.5 Globulin 2.6 Albumin/Globulin Ratio 1.3 TSH Urine Color Urine Appearance Urine pH Ur Specific Orange Urine Protein Urine Glucose (UA) Urine Ketones Urine Blood Urine Nitrite Urine Bilirubin Urine Urobilinogen Ur Leukocyte Esterase Salicylates Urine Opiates Screen Ur Methadone, Qual Acetaminophen Urine Barbiturates Ur Phencyclidine (PCP) U Amphetamin/Meth Scrn MDMA (Ecstasy) Screen U Benzodiazepines Scrn Ur Cocaine Metabolite U Marijuana (THC) Screen Ethyl Alcohol mg/dL HIV (1&2) Ag & Ab Conf Cancelled SARS-CoV-2, RNA, NAAT Current Inpatient Medications Current Inpatient Medications: Current Inpatient Medications Acetaminophen (Acetaminophen 325 Mg Tab) 650 mg PO Q4H PRN PRN Reason: Headache or Minor Fever Stop: 03/31/23 17:14 Al Hydrox/Mg Hydrox/Simethicone (Aluminum/Magnesium Susp 30 Ml Udc) 30 ml PO Q4H PRN PRN Reason: GI Upset Stop: 03/31/23 17:14 Benztropine Mesylate (Benztropine Mesylate 1 Mg Tab) 1 mg PO HS JOSEMANUEL Stop: 03/31/23 21:59 Last Admin: 03/01/23 21:37 Dose: 1 mg Bismuth Subsalicylate (Bismuth Subsalicylate Liqd 236 Ml) 15 ml PO PRN PRN PRN Reason: Loose Stool Stop: 03/31/23 17:14 Docusate Sodium (Docusate Sodium 100 Mg Cap) 200 mg PO BID JOSEMANUEL Stop: 03/31/23 20:59 Last Admin: 03/02/23 09:35 Dose: 200 mg Haloperidol (Haloperidol 5 Mg Tab) 20 mg PO BID JOSEMANUEL Stop: 03/31/23 20:59 Last Admin: 03/02/23 09:36 Dose: 20 mg Hydroxyzine HCl (Hydroxyzine Hcl 25 Mg Tab) 50 mg PO HSZ PRN PRN Reason: Insomnia Stop: 03/31/23 17:14 Hydroxyzine HCl (Hydroxyzine Hcl 25 Mg Tab) 25 mg PO Q4H PRN PRN Reason: Anxiety Stop: 03/31/23 17:14 Magnesium Hydroxide (Magnesium Hydroxide Susp 30 Ml Udc) 30 ml PO DAILY PRN PRN Reason: Constipation Stop: 03/31/23 17:14 Multivitamins/Minerals (Cerovite Adv Formula Tab) [facility] Stop: 04/01/23 08:59 Last Admin: 03/02/23 09:36 Dose: 1 tab Pantoprazole Sodium (Pantoprazole 40 Mg Tab) 40 [facility] Stop: 04/01/23 08:59 Last Admin: 03/02/23 09:36 Dose: 40 mg Sodium Chloride (Sodium Chloride 0.65% Na Soln 45 Ml ([place])) 1 - 2 sprays NA PRN PRN PRN Reason: Nasal Dryness/Congestion Stop: 03/31/23 17:14 Venlafaxine HCl (Venlafaxine Hcl Xr 75 Mg Capxr) 75 mg [facility] Stop: 04/01/23 08:59 Last Admin: 03/02/23 09:36 Dose: 75 mg Vitamin D (Cholecalciferol 5,000 Units 125 Mcg Tab) 5,000 units PO QA JOSEMANUEL Stop: 04/01/23 08:59 Last Admin: 03/02/23 09:35 Dose: 5,000 units
[2023-03-02] MEDS: BENZTROPINE MESYLATE 1 MG TAB PO SCH (21:05)
--- NOTE | 2023-03-03 06:48 | Psychiatric Progress Note ---
Date of Service March 03, 2023 Impression / Recommendations Impression 52 yo man with schizophrenia with multiple recent psychiatric hospitalizations after each has el[facility] from his [facility]. Spent about 3 days outside of a hospital setting within the last 4 months. note that main indication for inpatient stay at this point is failure of community resources and although patient not openly having much in the way of positive symptoms he has marked negative symptoms that interfere with his ability to care for self outside of the hospital setting and given the unusual nature under which he was injured and inability to be maintained at supervised living (CRR), inpatient is currently the least restrictive level of care. overall I sepnt 35 minutes on this case reviewing interim progress, interviewing patient, treatment team discussion around [facility] referral.. (1) Schizophrenia: (2) Paranoid: Plan 03/03/2023: unable to resume thorazine, offered to try splitting Haldol to TID to see if any improvement in orthostasis. 03/02/2023: The patient was admitted to the [facility] ([facility] mental health unit) on q15 min checks (behavioral with suicide precautions) for safety. The patient will participate in group, recreational, and milieu therapies and will be offered additional individual and family sessions as clinically appropriate. Continue to hold thorazine and monitor BP. Inventory Assets Strengths: taking PO meds, cooperative with tx plan Needs: longer term hospitalization, medical monitoring Suicide Risk Level Suicide Risk Level: Moderate (q15 min suicide checks) Risk Factors Assessment Male: Yes : Yes Do You Have Access To A Gun?: No Mental Health Diagnoses: Yes Previous Attempt: Yes Previous Psychiatric Hospitalization: Yes Protective Factors Assessment Employed: No Interval History Identifying Information CASEY DAMIAN is a 52-year-old man who lives in a [facility] with a history of schizophrenia, who eloped after returning to his [facility] and was found by police wandering with concern for dehydration due to hot temperatures/humidity. Patient is boarding in the ED on 302. declined to participate in 303 hearing. Chief Complaint "thank you" Review of Systems Sleep Information Total Hours of Sleep: 7.75 Meal Information Percent Meal Consumed - Breakfast: 50 Percent Meal Consumed - Lunch: 100 Percent Meal Consumed - Dinner: 100 Subjective Subjective Patient was seen & assessed and interval progress reviewed with treatment team. Cooperative with nail care. Patient did check doors last night/rang mendoza so was placed on elopement precautions last pm. He is asymptomatic but continues to have drop in bp on standing. 103/66 lying to 64/50 standing. ambulating well with boot. Physical Exam Psychiatric Orientation: alert and oriented x 3 Apperance: appropriately dressed and appropriately groomed Eye Contact: + fair eye contact Motor Behavior: no abnormal motor movements Speech: normal rate/rhythm/volume of speech (quiet) Affect: + constricted affect Mood: no depressed mood and no anxious mood Thought Process: + concrete thought process Thought Content: + paranoid; no delusions (expressed) Suicidal Thoughts: denies suicidal thoughts, denies suicidal plan and denies suicidal intent Homicidal Thoughts: denies homicidal thoughts Hallucinations: no auditory hallucinations and no visual hallucinations Cognition: recent memory grossly intact, remote memory grossly intact and attention grossly intact Estimated Intelligence: average estimated intelligence Insight: + limited insight Judgment: + limited judgement Vital Signs (Past 24 Hours) Last Vital Signs Temp 37 C 03/03/23 06:46 Pulse 82 03/03/23 06:47 Resp 16 03/03/23 06:46 BP 86/57 L 03/03/23 06:47 Pulse Ox 98 03/01/23 16:57 O2 Del Method Room Air 03/01/23 16:57 Results & Data ([facility]) Current Inpatient Medications Current Inpatient Medications: Current Inpatient Medications Acetaminophen (Acetaminophen 325 Mg Tab) 650 mg PO Q4H PRN PRN Reason: Headache or Minor Fever Stop: 03/31/23 17:14 Al Hydrox/Mg Hydrox/Simethicone (Aluminum/Magnesium Susp 30 Ml Udc) 30 ml PO Q4H PRN PRN Reason: GI Upset Stop: 03/31/23 17:14 Benztropine Mesylate (Benztropine Mesylate 1 Mg Tab) 1 mg PO HS JOSEMANUEL Stop: 03/31/23 21:59 Last Admin: 03/02/23 21:05 Dose: 1 mg Bismuth Subsalicylate (Bismuth Subsalicylate Liqd 236 Ml) 15 ml PO PRN PRN PRN Reason: Loose Stool Stop: 03/31/23 17:14 Docusate Sodium (Docusate Sodium 100 Mg Cap) 200 mg PO BID JOSEMANUEL Stop: 03/31/23 20:59 Last Admin: 03/02/23 21:05 Dose: 200 mg Haloperidol (Haloperidol 5 Mg Tab) 20 mg PO BID JOSEMANUEL Stop: 03/31/23 20:59 Last Admin: 03/02/23 21:05 Dose: 20 mg Hydroxyzine HCl (Hydroxyzine Hcl 25 Mg Tab) 50 mg PO HSZ PRN PRN Reason: Insomnia Stop: 03/31/23 17:14 Hydroxyzine HCl (Hydroxyzine Hcl 25 Mg Tab) 25 mg PO Q4H PRN PRN Reason: Anxiety Stop: 03/31/23 17:14 Magnesium Hydroxide (Magnesium Hydroxide Susp 30 Ml Udc) 30 ml PO DAILY PRN PRN Reason: Constipation Stop: 03/31/23 17:14 Multivitamins/Minerals (Cerovite Adv Formula Tab) 1 tab PO QAM JOSEMANUEL Stop: 04/01/23 08:59 Last Admin: 03/02/23 09:36 Dose: 1 tab Pantoprazole Sodium (Pantoprazole 40 Mg Tab) 40 mg PO QAM JOSEMANUEL Stop: 04/01/23 08:59 Last Admin: 03/02/23 09:36 Dose: 40 mg Sodium Chloride (Sodium Chloride 0.65% Na Soln 45 Ml ([place])) 1 - 2 sprays NA PRN PRN PRN Reason: Nasal Dryness/Congestion Stop: 03/31/23 17:14 Venlafaxine HCl (Venlafaxine Hcl Xr 75 Mg Capxr) 75 mg PO QAM JOSEMANUEL Stop: 04/01/23 08:59 Last Admin: 03/02/23 09:36 Dose: 75 mg Vitamin D (Cholecalciferol 5,000 Units 125 Mcg Tab) 5,000 units PO QAM JOSEMANUEL Stop: 04/01/23 08:59 Last Admin: 03/02/23 09:35 Dose: 5,000 units Mental Health & Subst Abuse Tx Therapist Name of Therapist: Lala
[2023-03-03] MEDS: DOCUSATE SODIUM 100 MG CAP PO SCH ×2 (08:46→21:21)
[2023-03-03] MEDS: CHOLECALCIFEROL 5,000 UNITS 125 MCG TAB PO SCH (08:46)
[2023-03-03] MEDS: haloperidoL 5 MG TAB PO SCH ×2 (08:46→21:22)
[2023-03-03] MEDS: VENLAFAXINE HCL XR 75 MG CAPXR PO SCH (08:47)
[2023-03-03] MEDS: PANTOprazole 40 MG TAB PO SCH (08:47)
[2023-03-03] MEDS: CEROVITE ADV FORMULA TAB PO SCH (08:47)
[2023-03-03] MEDS: BENZTROPINE MESYLATE 1 MG TAB PO SCH (21:20)
[2023-03-04] MEDS: DOCUSATE SODIUM 100 MG CAP PO SCH ×2 (08:39→21:09)
[2023-03-04] MEDS: haloperidoL 5 MG TAB PO SCH ×3 (08:39→21:09)
[2023-03-04] MEDS: CHOLECALCIFEROL 5,000 UNITS 125 MCG TAB PO SCH (08:40)
[2023-03-04] MEDS: VENLAFAXINE HCL XR 75 MG CAPXR PO SCH (08:40)
[2023-03-04] MEDS: CEROVITE ADV FORMULA TAB PO SCH (08:40)
[2023-03-04] MEDS: PANTOprazole 40 MG TAB PO SCH (08:41)
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
[2023-03-04] MEDS: BENZTROPINE MESYLATE 1 MG TAB PO SCH (21:09)
[2023-03-05] MEDS: CHOLECALCIFEROL 5,000 UNITS 125 MCG TAB PO SCH (09:02)
[2023-03-05] MEDS: DOCUSATE SODIUM 100 MG CAP PO SCH ×2 (09:02→21:14)
[2023-03-05] MEDS: VENLAFAXINE HCL XR 75 MG CAPXR PO SCH (09:03)
[2023-03-05] MEDS: haloperidoL 5 MG TAB PO SCH ×3 (09:03→21:14)
[2023-03-05] MEDS: PANTOprazole 40 MG TAB PO SCH (09:03)
[2023-03-05] MEDS: CEROVITE ADV FORMULA TAB PO SCH (09:03)
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
[2023-03-05] MEDS: BENZTROPINE MESYLATE 1 MG TAB PO SCH (21:15)
[2023-03-06] MEDS: VENLAFAXINE HCL XR 75 MG CAPXR PO SCH (09:03)
[2023-03-06] MEDS: PANTOprazole 40 MG TAB PO SCH (09:03)
[2023-03-06] MEDS: CHOLECALCIFEROL 5,000 UNITS 125 MCG TAB PO SCH (09:03)
[2023-03-06] MEDS: CEROVITE ADV FORMULA TAB PO SCH (09:03)
[2023-03-06] MEDS: DOCUSATE SODIUM 100 MG CAP PO SCH ×2 (09:03→21:20)
[2023-03-06] MEDS: haloperidoL 5 MG TAB PO SCH ×3 (09:03→21:20)
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
[2023-03-06] MEDS: BENZTROPINE MESYLATE 1 MG TAB PO SCH (21:20)
[2023-03-07] MEDS: CEROVITE ADV FORMULA TAB PO SCH (08:45)
[2023-03-07] MEDS: haloperidoL 5 MG TAB PO SCH ×3 (08:45→21:33)
[2023-03-07] MEDS: CHOLECALCIFEROL 5,000 UNITS 125 MCG TAB PO SCH (08:45)
[2023-03-07] MEDS: VENLAFAXINE HCL XR 75 MG CAPXR PO SCH (08:45)
[2023-03-07] MEDS: DOCUSATE SODIUM 100 MG CAP PO SCH ×2 (08:46→21:34)
[2023-03-07] MEDS: PANTOprazole 40 MG TAB PO SCH (08:46)
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
[2023-03-07] MEDS: BENZTROPINE MESYLATE 1 MG TAB PO SCH (21:33)
[2023-03-07] MEDS: traZODone HCL 100 MG TAB PO SCH (21:34)
[2023-03-08] MEDS: haloperidoL 5 MG TAB PO SCH ×3 (08:36→20:46)
[2023-03-08] MEDS: PANTOprazole 40 MG TAB PO SCH (08:36)
[2023-03-08] MEDS: DOCUSATE SODIUM 100 MG CAP PO SCH ×2 (08:36→20:46)
[2023-03-08] MEDS: CEROVITE ADV FORMULA TAB PO SCH (08:36)
[2023-03-08] MEDS: CHOLECALCIFEROL 5,000 UNITS 125 MCG TAB PO SCH (08:36)
[2023-03-08] MEDS: VENLAFAXINE HCL XR 75 MG CAPXR PO SCH (08:37)
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
[2023-03-08] MEDS: BENZTROPINE MESYLATE 1 MG TAB PO SCH (20:46)
[2023-03-08] MEDS: traZODone HCL 100 MG TAB PO SCH (20:46)
[2023-03-09] MEDS: DOCUSATE SODIUM 100 MG CAP PO SCH ×2 (08:42→20:28)
[2023-03-09] MEDS: VENLAFAXINE HCL XR 75 MG CAPXR PO SCH (08:42)
[2023-03-09] MEDS: haloperidoL 5 MG TAB PO SCH ×3 (08:42→20:29)
[2023-03-09] MEDS: PANTOprazole 40 MG TAB PO SCH (08:43)
[2023-03-09] MEDS: CEROVITE ADV FORMULA TAB PO SCH (08:43)
[2023-03-09] MEDS: CHOLECALCIFEROL 5,000 UNITS 125 MCG TAB PO SCH (08:43)
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
[2023-03-09] MEDS: BENZTROPINE MESYLATE 1 MG TAB PO SCH (20:29)
[2023-03-09] MEDS: traZODone HCL 100 MG TAB PO SCH (20:30)
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
[2023-03-10] MEDS: DOCUSATE SODIUM 100 MG CAP PO SCH ×2 (08:53→21:21)
[2023-03-10] MEDS: CHOLECALCIFEROL 5,000 UNITS 125 MCG TAB PO SCH (08:53)
[2023-03-10] MEDS: CEROVITE ADV FORMULA TAB PO SCH (08:54)
[2023-03-10] MEDS: VENLAFAXINE HCL XR 75 MG CAPXR PO SCH (08:54)
[2023-03-10] MEDS: PANTOprazole 40 MG TAB PO SCH (08:54)
[2023-03-10] MEDS: haloperidoL 5 MG TAB PO SCH ×3 (08:55→21:26)
[2023-03-10] MEDS: ACETAMINOPHEN 325 MG TAB PO PRN ×2 (13:34→21:34)
[2023-03-10] MEDS ORDERED: MAGNESIUM HYDROXIDE SUSP 30 ML UDC PO PRN (16:38)
[2023-03-10] MEDS ORDERED: SODIUM CHLORIDE 0.65% NA SOLN 45 ML (OCEAN) PRN (16:38)
[2023-03-10] MEDS ORDERED: ACETAMINOPHEN 325 MG TAB PO PRN (16:38)
[2023-03-10] MEDS ORDERED: hydrOXYzine HCl 25 MG TAB PO PRN (16:38)
[2023-03-10] MEDS ORDERED: BISMUTH SUBSALICYLATE LIQD 236 ML PO PRN (16:38)
[2023-03-10] MEDS ORDERED: ALUMINUM/MAGNESIUM SUSP 30 ML UDC PO PRN (16:38)
[2023-03-10] MEDS: traZODone HCL 100 MG TAB PO SCH (21:24)
[2023-03-10] MEDS: BENZTROPINE MESYLATE 1 MG TAB PO SCH (21:26)
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
[2023-03-11] MEDS: haloperidoL 5 MG TAB PO SCH ×3 (09:51→21:09)
[2023-03-11] MEDS: CHOLECALCIFEROL 5,000 UNITS 125 MCG TAB PO SCH (09:51)
[2023-03-11] MEDS: DOCUSATE SODIUM 100 MG CAP PO SCH ×2 (09:51→21:09)
[2023-03-11] MEDS: PANTOprazole 40 MG TAB PO SCH (09:52)
[2023-03-11] MEDS: CEROVITE ADV FORMULA TAB PO SCH (09:52)
[2023-03-11] MEDS: VENLAFAXINE HCL XR 75 MG CAPXR PO SCH (09:53)
[2023-03-11] MEDS: traZODone HCL 100 MG TAB PO SCH (21:09)
[2023-03-11] MEDS: BENZTROPINE MESYLATE 1 MG TAB PO SCH (21:10)
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
[2023-03-12] MEDS: CEROVITE ADV FORMULA TAB PO SCH (08:39)
[2023-03-12] MEDS: CHOLECALCIFEROL 5,000 UNITS 125 MCG TAB PO SCH (08:39)
[2023-03-12] MEDS: VENLAFAXINE HCL XR 75 MG CAPXR PO SCH (08:39)
[2023-03-12] MEDS: DOCUSATE SODIUM 100 MG CAP PO SCH ×2 (08:39→21:50)
[2023-03-12] MEDS: PANTOprazole 40 MG TAB PO SCH (08:39)
[2023-03-12] MEDS: haloperidoL 5 MG TAB PO SCH ×3 (08:41→20:59)
[2023-03-12] MEDS: BENZTROPINE MESYLATE 1 MG TAB PO SCH (20:59)
[2023-03-12] MEDS: traZODone HCL 100 MG TAB PO SCH (21:00)
[2023-03-13] MEDS: haloperidoL 5 MG TAB PO SCH ×3 (08:45→21:03)
[2023-03-13] MEDS: CEROVITE ADV FORMULA TAB PO SCH (08:45)
[2023-03-13] MEDS: DOCUSATE SODIUM 100 MG CAP PO SCH ×2 (08:45→21:05)
[2023-03-13] MEDS: PANTOprazole 40 MG TAB PO SCH (08:46)
[2023-03-13] MEDS: VENLAFAXINE HCL XR 75 MG CAPXR PO SCH (08:46)
[2023-03-13] MEDS: CHOLECALCIFEROL 5,000 UNITS 125 MCG TAB PO SCH (08:46)
--- NOTE | 2023-03-13 15:23 | Psychiatric Progress Note ---
Date of Service March 13, 2023 Impression / Recommendations Impression Agree with assessment per Dr. Levin: 52 yo man with schizophrenia with multiple recent psychiatric hospitalizations after each has eloped from his longterm. Spent about 3 days outside of a hospital setting within the last 4 months. He is now on a 303 commitment. note that main indication for inpatient stay at this point is failure of community resources and although patient not openly having much in the way of positive symptoms he has marked negative symptoms that interfere with his ability to care for self outside of the hospital setting and given the unusual nature under which he was injured and inability to be maintained at supervised living (CRR), inpatient is currently the least restrictive level of care. MNPR due to psychosis and limited ability to tolerate peers and hx of aggression with delusions 03/13/2023: Pt recalls me from my having seen him for consultation about a month ago when he was on the medical unit. He shrugs and is uninformative when I asked how he's ended up back in the hospital so soon after that. He reports no further injury but says his foot still hurts enough to make walking uncomfortable. Reports continuing visual hallucinations consistent with his longstanding reports but says they don't bother him much right now. He spends most of his time in his room. BP has improved somewhat but I'm concerned about hypotension risk with depot haloperidol. He's had to stop chlorpromazine due to hypotension and I'm somewhat concerned that antipsychotic monotherapy has proven ineffective over multiple trials (at least 6 identified) including clozapine, so it's unclear to me what an appropriate dose of depot haloperidol might be. Overall I spent a total of 37 minutes for this inpatient follow-up including review of chart records, review of labwork, direct evaluation of the patient [id number], counseling the patient, ordering medication, risk assessment, discussion during interdisciplinary treatment rounds, and documentation in the electronic health record. 03/12/23: Mood remains stable without evidence for any overt delusions nor does he appear to be responding to any internal stimuli. Still with slightly lower BP this morning but denies any dizziness or symptoms of orthostasis. Foot pain is less overall today. Reality-based in his discussions without any evidence for vocalized delusions but remains isolative to his room for much of the day. Per review of previous orthopedic consultation by Dr. Jackson on 02/16/2023 recommendations of: "Consider repeat x-rays in 6 weeks, if he remains symptomatic. He can wean from the boot as tolerated. Recommend treating this edema with elevation and ice." 6 weeks will be on ~03/30/2023. If pain or swelling persists at that point will get repeat x-ray and involve orthopedics as needed. For now will continue with elevation, ice and ongoing use of the boot. Disposition remains largest challenge given multiple recent failed attempts of returning to his longterm due to significant increase in delusions, psychosis, and disorganized behavior as soon as he lives the structure of an inpatient setting. Remains on elopement precautions. (1) Schizophrenia: (2) Paranoid: Plan 03/19/2023: * continue haloperidol 10 mg TID - started this schedule 03/03/2023 * consider depot haloperidol if it appears BP sufficiently stable 03/12/2023: Continue current medications and tx plan. 03/11/2023: Continue current medications and tx plan. 03/10/2023: Continue current medications and tx plan. 03/09/2023: Continue current medications and tx plan. 03/08/2023: Continue current medications and tx plan. Consider haldol decanoate later this week. 03/07/2023: Start trazodone 100mg HS po. Continue haldol 10mg TID po 03/06/2023: Continue haldol 10mg TID po 03/05/2023: currently unclear if Haldol TID (30 mg total daily dose) will be adequate, will defer today as orthostasis is still resolving and patient fall risk with foot fx. 03/04/2023: continue current meds and tx plan. [facility] referral packet completed by DEE[facility]. 03/03/2023: unable to resume thorazine, offered to try splitting Haldol to TID to see if any improvement in orthostasis. 03/02/2023: The patient was [facility] ([facility]) on q15 min checks (behavioral with suicide precautions) for safety. The patient will participate in group, recreational, and milieu therapies and will be offered additional individual and family sessions as clinically a ppropriate. Continue to hold thorazine and monitor BP. Inventory Assets Strengths: taking PO meds, cooperative with tx plan Needs: longer term hospitalization, medical monitoring Suicide Risk Level Suicide Risk Level: Moderate (q15 min suicide checks) (recent SI and bizarre behavior d/t psychosis but denies SI and feels safe in the hospital and agrees to let staff know if he feels unsafe or needs additional support) Risk Factors Assessment Male: Yes : Yes Do You Have Access To A Gun?: No Mental Health Diagnoses: Yes Previous Attempt: Yes Previous Psychiatric Hospitalization: Yes Protective Factors Assessment Employed: No Interval History Identifying Information CASEY DAMIAN is a 52-year-old man who lives in a [place] psychiatric longterm with a history of schizophrenia, who eloped after returning to his longterm and was found by police wandering with concern for dehydration due to hot temperatures/humidity. He is on a 303 commitment. Chief Complaint "I'm OK". Review of Systems Sleep Information Total Hours of Sleep: 7.25 Meal Information Percent Meal Consumed - Breakfast: 100 Percent Meal Consumed - Lunch: 100 Percent Meal Consumed - Dinner: 90 Subjective Subjective Patient was seen & assessed and interval progress reviewed in a multidisciplinary team meeting with psychiatric liaison nursing and social work. For details, see the "Impression" section. Physical Exam Psychiatric Orientation: alert and oriented x 3 Apperance: appropriately dressed and appropriately groomed Eye Contact: + fair eye contact Motor Behavior: no abnormal motor movements Speech: normal rate/rhythm/volume of speech (quiet) Affect: + constricted affect Mood: no depressed mood and no anxious mood Thought Process: + concrete thought process Thought Content: reality based without delusions Suicidal Thoughts: denies suicidal thoughts, denies suicidal plan and denies suicidal intent Homicidal Thoughts: denies homicidal thoughts Hallucinations: + visual hallucinations (intermittent of men in his room); no auditory hallucinations Cognition: recent memory grossly intact, remote memory grossly intact and attention grossly intact Estimated Intelligence: average estimated intelligence Insight: + limited insight Judgment: + limited judgement Vital Signs (Past 24 Hours) Last Vital Signs Temp 36.7 C 03/13/23 06:45 Pulse 86 03/13/23 06:45 Resp 16 03/13/23 06:45 BP 104/63 03/13/23 06:45 Pulse Ox 98 03/12/23 21:53 O2 Del Method Room Air 03/12/23 21:53 Results & Data (U) Current Inpatient Medications Current Inpatient Medications: Current Inpatient Medications Acetaminophen (Acetaminophen 325 Mg Tab) 650 mg PO Q4H PRN PRN Reason: Headache or Minor Fever Stop: 03/31/23 17:14 Last Admin: 03/10/23 21:34 Dose: 650 mg Al Hydrox/Mg Hydrox/Simethicone (Aluminum/Magnesium Susp 30 Ml Udc) 30 ml PO Q4H PRN PRN Reason: GI Upset Stop: 03/31/23 17:14 Benztropine Mesylate (Benztropine Mesylate 1 Mg Tab) 1 mg PO HS JOSEMANUEL Stop: 03/31/23 21:59 Last Admin: 03/12/23 20:59 Dose: 1 mg Bismuth Subsalicylate (Bismuth Subsalicylate Liqd 236 Ml) 15 ml PO PRN PRN PRN Reason: Loose Stool Stop: 03/31/23 17:14 Docusate Sodium (Docusate Sodium 100 Mg Cap) 200 mg PO BID JOSEMANUEL Stop: 03/31/23 20:59 Last Admin: 03/13/23 08:45 Dose: 200 mg Haloperidol (Haloperidol 5 Mg Tab) 10 mg PO TID JOSEMANUEL Stop: 04/02/23 20:59 Last Admin: 03/13/23 14:13 Dose: 10 mg Hydroxyzine HCl (Hydroxyzine Hcl 25 Mg Tab) 50 mg PO HSZ PRN PRN Reason: Insomnia Stop: 04/09/23 16:37 Hydroxyzine HCl (Hydroxyzine Hcl 25 Mg Tab) 25 mg PO Q4H PRN PRN Reason: Anxiety Stop: 04/09/23 16:37 Magnesium Hydroxide (Magnesium Hydroxide Susp 30 Ml Udc) 30 ml PO DAILY PRN PRN Reason: Constipation Stop: 04/09/23 16:37 Multivitamins/Minerals (Cerovite Adv Formula Tab) 1 tab PO QAM JOSEMANUEL Stop: 04/01/23 08:59 Last Admin: 03/13/23 08:45 Dose: 1 tab Pantoprazole Sodium (Pantoprazole 40 Mg Tab) 40 mg PO QAM JOSEMANUEL Stop: 04/01/23 08:59 Last Admin: 03/13/23 08:46 Dose: 40 mg Sodium Chloride (Sodium Chloride 0.65% Na Soln 45 Ml ([place])) 1 - 2 sprays NA P RN PRN PRN Reason: Nasal Dryness/Congestion Stop: 03/31/23 17:14 Trazodone HCl (Trazodone Hcl 100 Mg Tab) 100 mg PO HS [facility] Stop: 04/06/23 21:59 Last Admin: 03/12/23 21:00 Dose: 100 mg Venlafaxine HCl (Venlafaxine Hcl Xr 75 Mg Capxr) 75 mg PO QAM [facility] Stop: 04/01/23 08:59 Last Admin: 03/13/23 08:46 Dose: 75 mg Vitamin D (Cholecalciferol 5,000 Units 125 Mcg Tab) 5,000 units PO QAM [facility] Stop: 04/01/23 08:59 Last Admin: 03/13/23 08:46 Dose: 5,000 units Mental Health & Subst Abuse Tx Therapist Name of Therapist: Lala
[2023-03-13] MEDS: BENZTROPINE MESYLATE 1 MG TAB PO SCH (21:04)
[2023-03-13] MEDS: traZODone HCL 100 MG TAB PO SCH (21:04)
[2023-03-14] MEDS: PANTOprazole 40 MG TAB PO SCH (08:58)
[2023-03-14] MEDS: CHOLECALCIFEROL 5,000 UNITS 125 MCG TAB PO SCH (08:58)
[2023-03-14] MEDS: haloperidoL 5 MG TAB PO SCH ×3 (08:58→20:53)
[2023-03-14] MEDS: CEROVITE ADV FORMULA TAB PO SCH (08:58)
[2023-03-14] MEDS: VENLAFAXINE HCL XR 75 MG CAPXR PO SCH (08:59)
[2023-03-14] MEDS: DOCUSATE SODIUM 100 MG CAP PO SCH ×2 (09:07→20:50)
--- NOTE | 2023-03-14 16:42 | Psychiatric Progress Note ---
Date of Service March 14, 2023 Impression / Recommendations Impression Agree with assessment per Dr. Levin: 52 yo man with schizophrenia with multiple recent psychiatric hospitalizations after each has eloped from his fpc. Spent about 3 days outside of a hospital setting within the last 4 months. He is now on a 303 commitment. note that main indication for inpatient stay at this point is failure of community resources and although patient not openly having much in the way of positive symptoms he has marked negative symptoms that interfere with his ability to care for self outside of the hospital setting and given the unusual nature under which he was injured and inability to be maintained at supervised living ([facility]), inpatient is currently the least restrictive level of care. MNPR due to psychosis and limited ability to tolerate peers and hx of aggression with delusions 03/14/2023: Is doing well in the structured environment of the inpatient unit. Current symptoms do not seem to warrant any change in pharmacotherapy. Spoke at length about recent repeated failure to re-enter outpatient setting and the treatment team's consequent belief that he will require a period of extended inpatient treatment and intensive work on formulating a plan for outpatient re- entry in order to avoid repeated readmission. Pt "can't argue with that". Overall I spent a total of 23 minutes for this inpatient follow-up including review of chart records, review of labwork, direct evaluation of the patient [id number], counseling the patient, high-risk medication review and education, risk assessment, discussion during interdisciplinary treatment rounds, and documentation in the electronic health record. 03/13/2023: Pt recalls me from my having seen him for consultation about a month ago when he was on the medical unit. He shrugs and is uninformative when I asked how he's ended up back in the hospital so soon after that. He reports no further injury but says his foot still hurts enough to make walking uncomfortable. Reports continuing visual hallucinations consistent with his longstanding reports but says they don't bother him much right now. He spends most of his time in his room. BP has improved somewhat but I'm concerned about hypotension risk with depot haloperidol. He's had to stop chlorpromazine due to hypotension and I'm somewhat concerned that antipsychotic monotherapy has proven ineffective over multiple trials (at least 6 identified) including clozapine, so it's unclear to me what an appropriate dose of depot haloperidol might be. Overall I spent a total of 37 minutes for this inpatient follow-up including review of chart records, review of labwork, direct evaluation of the patient [id number], counseling the patient, ordering medication, risk assessment, discussion during interdisciplinary treatment rounds, and documentation in the electronic health record. 03/12/23: Mood remains stable without evidence for any overt delusions nor does he appear to be responding to any internal stimuli. Still with slightly lower BP this morning but denies any dizziness or symptoms of orthostasis. Foot pain is less overall today. Reality-based in his discussions without any evidence for vo calized delusions but remains isolative to his room for much of the day. Per review of previous orthopedic consultation by Dr. Jackson on 02/16/2023 recommendations of: "Consider repeat x-rays in 6 weeks, if he remains symptomatic. He can wean from the boot as tolerated. Recommend treating this edema with elevation and ice." 6 weeks will be on ~03/30/2023. If pain or sw elling persists at that point will get repeat x-ray and involve orthopedics as needed. For now will continue with elevation, ice and ongoing use of the boot. Disposition remains largest challenge given multiple recent failed attempts of returning to his fpc due to significant increase in delusions, psychosis, and disorganized behavior as soon as he lives the structure of an inpatient setting. Remains on elopement precautions. (1) Schizophrenia: (2) Paranoid: Plan 03/14/2023: * continue haloperidol 10 mg TID - started this schedule 03/03/2023 * at this point I'm no longer considering depot haloperidol * if medication change becomes necessary, would likely resume chlorpromazine * probable 303 hearing on 03/13/2023: * continue haloperidol 10 mg TID - started this schedule 03/03/2023 * consider depot haloperidol if it appears BP sufficiently stable 03/12/2023: Continue current medications and tx plan. 03/11/2023: Continue current medications and tx plan. 03/10/2023: Continue current medications and tx plan. 03/09/2023: Continue current medications and tx plan. 03/08/2023: Continue current medications and tx plan. Consider haldol decanoate later this week. 03/07/2023: Start trazodone 100mg HS po. Continue haldol 10mg TID po 03/06/2023: Continue haldol 10mg TID po 03/05/2023: currently unclear if Haldol TID (30 mg total daily dose) will be adequate, will defer today as orthostasis is still resolving and patient fall risk with foot fx. 03/04/2023: continue current meds and tx plan. [facility] referral packet completed by DEEPA. 03/03/2023: unable to resume thorazine, offered to try splitting Haldol to TID to see if any improvement in orthostasis. 03/02/2023: The patient was admitted to the [facility] on q15 min checks (behavioral with suicide precautions) for safety. The patient will participate in group, recreational, and milieu therapies and will be offered additional individual and family sessions as clinically appropriate. Continue to hold thorazine and monitor BP. Inventory Assets Strengths: taking PO meds, cooperative with tx plan Needs: longer term hospitalization, medical monitoring Suicide Risk Level Suicide Risk Level: Moderate (q15 min suicide checks) (recent SI and bizarre behavior d/t psychosis but denies SI and feels safe in the hospital and agrees to let staff know if he feels unsafe or needs additional support) Risk Factors Assessment Male: Yes : Yes Do You Have Access To A Gun?: No Mental Health Diagnoses: Yes Previous Attempt: Yes Previous Psychiatric Hospitalization: Yes Protective Factors Assessment Employed: No Interval History Identifying Information CASEY DAMIAN is a 52-year-old man who lives in a [place] psychiatric fpc with a history of schizophrenia, who eloped after returning to his fpc and was found by police wandering with concern for dehydration due to hot temperatures/humidity. He is on a 303 commitment. Chief Complaint "OK". Review of Systems Sleep Information Total Hours of Sleep: 7.25 Meal Information Percent Meal Consumed - Breakfast: 100 Percent Meal Consumed - Lunch: 100 Percent Meal Consumed - Dinner: 100 Subjective Subjective Patient was seen & assessed and interval progress reviewed in a multidisciplinary team meeting with psychiatric liaison nursing and social work. For details, see the "Impression" section. Physical Exam Psychiatric Orientation: alert and oriented x 3 Apperance: appropriately dressed, appropriately groomed and + disheveled Eye Contact: + fair eye contact Motor Behavior: no abnormal motor movements Speech: normal rate/rhythm/volume of speech (quiet) Affect: + constricted affect Mood: no depressed mood and no anxious mood Thought Process: + concrete thought process Thought Content: + paranoid (less) and reality based without delusions; no delusions (expressed today, but had some last night) Suicidal Thoughts: denies suicidal thoughts, denies suicidal plan and denies suicidal intent Homicidal Thoughts: denies homicidal thoughts Hallucinations: + visual hallucinations (intermittent of men in his room); no auditory hallucinations Cognition: recent memory grossly intact, remote memory grossly intact and attention grossly intact Estimated Intelligence: average estimated intelligence Insight: + limited insight Judgment: + limited judgement Vital Signs (Past 24 Hours) Last Vital Signs Temp 36.6 C 03/14/23 06:44 Pulse 66 03/14/23 06:45 Resp 16 03/14/23 06:44 BP 94/60 L 03/14/23 06:45 Pulse Ox 98 03/13/23 21:13 O2 Del Method Room Air 03/13/23 21:13 Results & Data ([facility]) Current Inpatient Medications Current Inpatient Medications: Current Inpatient Medications Acetaminophen (Acetaminophen 325 Mg Tab) 650 mg PO Q4H PRN PRN Reason: Headache or Minor Fever Stop: 03/31/23 17:14 Last Admin: 03/10/23 21:34 Dose: 650 mg Al Hydrox/Mg Hydrox/Simethicone (Aluminum/Magnesium Susp 30 Ml Udc) 30 ml PO Q4H PRN PRN Reason: GI Upset Stop: 03/31/23 17:14 Benztropine Mesylate (Benztropine Mesylate 1 Mg Tab) 1 mg PO HS JOSEMANUEL Stop: 03/31/23 21:59 Last Admin: 03/13/23 21:04 Dose: 1 mg Bismuth Subsalicylate (Bismuth Subsalicylate Liqd 236 Ml) 15 ml PO PRN PRN PRN Reason: Loose Stool Stop: 03/31/23 17:14 Docusate Sodium (Docusate Sodium 100 Mg Cap) 200 mg PO BID JOSEMANUEL Stop: 03/31/23 20:59 Last Admin: 03/14/23 09:07 Dose: Not Given Haloperidol (Haloperidol 5 Mg Tab) 10 mg PO TID JOSEMANUEL Stop: 04/02/23 20:59 Last Admin: 03/14/23 13:43 Dose: 10 mg Hydroxyzine HCl (Hydroxyzine Hcl 25 Mg Tab) 50 mg PO HSZ PRN PRN Reason: Insomnia Stop: 04/09/23 16:37 Hydroxyzine HCl (Hydroxyzine Hcl 25 Mg Tab) 25 mg PO Q4H PRN PRN Reason: Anxiety Stop: 04/09/23 16:37 Magnesium Hydroxide (Magnesium Hydroxide Susp 30 Ml Udc) 30 ml PO DAILY PRN PRN Reason: Constipation Stop: 04/09/23 16:37 Multivitamins/Minerals (Cerovite Adv Formula Tab) 1 tab PO QAM [facility] Stop: 04/01/23 08:59 Last Admin: 03/14/23 08:58 Dose: 1 tab Pantoprazole Sodium (Pantoprazole 40 Mg Tab) 40 mg PO QAM JOSEMANUEL Stop: 04/01/23 08:59 Last Admin: 03/14/23 08:58 Dose: 40 mg Sodium Chloride (Sodium Chloride 0.65% Na Soln 45 Ml ([place])) 1 - 2 sprays NA PRN PRN PRN Reason: Nasal Dryness/Congestion Stop: 03/31/23 17:14 Trazodone HCl (Trazodone Hcl 100 Mg Tab) 100 mg PO HS JOSEMANUEL Stop: 04/06/23 21:59 Last Admin: 03/13/23 21:04 Dose: 100 mg Venlafaxine HCl (Venlafaxine Hcl Xr 75 Mg Capxr) 75 mg PO QAM JOSEMANUEL Stop: 04/01/23 08:59 Last Admin: 03/14/23 08:59 Dose: 75 mg Vitamin D (Cholecalciferol 5,000 Units 125 Mcg Tab) 5,000 units PO QAM JOSEMANUEL Stop: 04/01/23 08:59 Last Admin: 03/14/23 08:58 Dose: 5,000 units Mental Health & Subst Abuse Tx Therapist Name of Therapist: Lala
[2023-03-14] MEDS: BENZTROPINE MESYLATE 1 MG TAB PO SCH (20:53)
[2023-03-14] MEDS: traZODone HCL 100 MG TAB PO SCH (20:54)
[2023-03-15] MEDS: CHOLECALCIFEROL 5,000 UNITS 125 MCG TAB PO SCH (08:24)
[2023-03-15] MEDS: haloperidoL 5 MG TAB PO SCH ×3 (08:24→20:35)
[2023-03-15] MEDS: DOCUSATE SODIUM 100 MG CAP PO SCH ×2 (08:24→20:38)
[2023-03-15] MEDS: CEROVITE ADV FORMULA TAB PO SCH (08:24)
[2023-03-15] MEDS: VENLAFAXINE HCL XR 75 MG CAPXR PO SCH (08:25)
[2023-03-15] MEDS: PANTOprazole 40 MG TAB PO SCH (08:25)
--- NOTE | 2023-03-15 10:33 | Psychiatric Progress Note ---
Date of Service March 15, 2023 Impression / Recommendations Impression Agree with assessment per Dr. Levin: 52 yo man with schizophrenia with multiple recent psychiatric hospitalizations after each has eloped from his penitentiary. Spent about 3 days outside of a hospital setting within the last 4 months. He is now on a 303 commitment. note that main indication for inpatient stay at this point is failure of community resources and although patient not openly having much in the way of positive symptoms he has marked negative symptoms that interfere with his ability to care for self outside of the hospital setting and given the unusual nature under which he was injured and inability to be maintained at supervised living (CRR), inpatient is currently the least restrictive level of care. MNPR due to psychosis and limited ability to tolerate peers and hx of aggression with delusions 03/15/2023: Pt has been resisting showering; he says he's showered, but all evidence points to the contrary. Has been stable behaviorally and has attended groups (though not participated in them much). He continues to report visual hallucinations as has long experienced but is not finding them distressing. He similarly continues to hear voices, but they are indistinct and he's not experiencing command hallucinations. Despite his doing well on the unit, the treatment team remain very concerned about his marked difficulty adjusting to the outpatient setting following several recent discharges from psychiatric inpatient facilities. 03/14/2023: Is doing well in the structured environment of the inpatient unit. Current symptoms do not seem to warrant any change in pharmacotherapy. Spoke at length about recent repeated failure to re-enter outpatient setting and the treatment team's consequent belief that he will require a period of extended inpatient treatment and intensive work on formulating a plan for outpatient re- entry in order to avoid repeated readmission. Pt "can't argue with that". 03/13/2023: Pt recalls me from my having seen him for consultation about a month ago when he was on the medical unit. He shrugs and is uninformative when I asked how he's ended up back in the hospital so soon after that. He reports no further injury but says his foot still hurts enough to make walking uncomfortable. Reports continuing visual hallucinations consistent with his longstanding reports but says they don't bother him much right now. He spends most of his time in his room. BP has improved somewhat but I'm concerned about hypotension risk with depot haloperidol. He's had to stop chlorpromazine due to hypotension and I'm somewhat concerned that antipsychotic monotherapy has proven ineffective over multiple trials (at least 6 identified) including clozapine, so it's unclear to me what an appropriate dose of depot haloperidol might be. 03/12/23: Mood remains stable without evidence for any overt delusions nor does he appear to be responding to any internal stimuli. Still with slightly lower BP this morning but denies any dizziness or symptoms of orthostasis. Foot pain is less overall today. Reality-based in his discussions without any evidence for vocalized delusions but remains isolative to his room for much of the day. Per review of previous orthopedic consultation by Dr. Jackson on 02/16/2023 recommendations of: "Consider repeat x-rays in 6 weeks, if he remains symptomatic. He can wean from the boot as tolerated. Recommend treating this edema with elevation and ice." 6 weeks will be on ~03/30/2023. If pain or swelling persists at that point will get repeat x-ray and involve orthopedics as needed. For now will continue with elevation, ice and ongoing use of the boot. Disposition remains largest challenge given multiple recent failed attempts of returning to his penitentiary due to significant increase in delusions, psychosis, and disorganized behavior as soon as he lives the structure of an inpatient setting. Remains on elopement precautions. (1) Schizophrenia: (2) Paranoid: Plan 03/14/2023: * continue haloperidol 10 mg TID - started this schedule 03/03/2023 * at this point I'm no longer considering depot haloperidol * if medication change becomes necessary, would likely resume chlorpromazine * probable 303 hearing on 03/14/2023: * continue haloperidol 10 mg TID - started this schedule 03/03/2023 * at this point I'm no longer considering depot haloperidol * if medication change becomes necessary, would likely resume chlorpromazine * probable 303 hearing on 03/13/2023: * continue haloperidol 10 mg TID - started this schedule 03/03/2023 * consider depot haloperidol if it appears BP sufficiently stable 03/12/2023: Continue current medications and tx plan. 03/11/2023: Continue current medications and tx plan. 03/10/2023: Continue current medications and tx plan. 03/09/2023: Continue current medications and tx plan. 03/08/2023: Continue current medications and tx plan. Consider haldol decanoate later this week. 03/07/2023: Start trazodone 100mg HS po. Continue haldol 10mg TID po 03/06/2023: Continue haldol 10mg TID po 03/05/2023: currently unclear if Haldol TID (30 mg total daily dose) will be adequate, will defer today as orthostasis is still resolving and patient fall risk with foot fx. 03/04/2023: continue current meds and tx plan. [facility] referral packet completed by DEE[facility]. 03/03/2023: unable to resume thorazine, offered to try splitting Haldol to TID to see if any improvement in orthostasis. 03/02/2023: The patient was admitted to the [facility] ([facility] unit) on q15 min checks (behavioral with suicide precautions) for safety. The patient will participate in group, recreational, and milieu therapies and will be offered additional individual and family sessions as clinically appropriate. Continue to hold thorazine and monitor BP. Inventory Assets Strengths: taking PO meds, cooperative with tx plan Needs: longer term hospitalization, medical monitoring Suicide Risk Level Suicide Risk Level: Moderate (q15 min suicide checks) (recent SI and bizarre behavior d/t psychosis but denies SI and feels safe in the hospital and agrees to let staff know if he feels unsafe or needs additional support) Risk Factors Assessment Male: Yes : Yes Do You Have Access To A Gun?: No Mental Health Diagnoses: Yes Previous Attempt: Yes Previous Psychiatric Hospitalization: Yes Protective Factors Assessment Employed: No Interval History Identifying Information CASEY DAMIAN is a 52-year-old man who lives in a [place] [facility] with a history of schizophrenia, who eloped after returning to his [facility] home and was found by police wandering with concern for dehydration due to hot temperatures/humidity. He is on a 303 commitment. Chief Complaint "Things seem OK". Review of Systems Sleep Information Total Hours of Sleep: 8.25 Meal Information Percent Meal Consumed - Breakfast: 100 Percent Meal Consumed - Lunch: 100 Percent Meal Consumed - Dinner: 100 Subjective Subjective Patient was seen & assessed and interval progress reviewed in a multidisciplinary team meeting with the treatment team. For details, see the "Impression" section. Overall I spent a total of 20 minutes for this inpatient follow-up including review of chart records, review of labwork, direct evaluation of the patient [id number], counseling the patient, high-risk medication review and education, risk assessment, discussion during interdisciplinary treatment rounds, and documentation in the electronic health record. Physical Exam Psychiatric Orientation: alert Apperance: appropriately dressed, appropriately groomed and + disheveled Eye Contact: + fair eye contact Motor Behavior: no abnormal motor movements Speech: normal rate/rhythm/volume of speech (quiet) Affect: + constricted affect Mood: no depressed mood and no anxious mood Thought Process: + concrete thought process Thought Content: + paranoid (less) Suicidal Thoughts: denies suicidal thoughts, denies suicidal plan and denies suicidal intent Homicidal Thoughts: denies homicidal thoughts Hallucinations: + visual hallucinations (intermittent of men in his room); no auditory hallucinations Cognition: recent memory grossly intact, remote memory grossly intact and attention grossly intact Estimated Intelligence: average estimated intelligence Insight: + limited insight Judgment: + limited judgement Vital Signs (Past 24 Hours) Last Vital Signs Temp 36.7 C 03/15/23 06:39 Pulse 69 03/15/23 06:39 Resp 16 03/15/23 06:39 BP 92/63 L 03/15/23 06:40 Pulse Ox 97 03/14/23 21:05 O2 Del Method Room Air 03/14/23 21:05 Results & Data ([facility]) Current Inpatient Medications Current Inpatient Medications: Current Inpatient Medications Acetaminophen (Acetaminophen 325 Mg Tab) 650 mg PO Q4H PRN PRN Reason: Headache or Minor Fever Stop: 03/31/23 17:14 Last Admin: 03/10/23 21:34 Dose: 650 mg Al Hydrox/Mg Hydrox/Simethicone (Aluminum/Magnesium Susp 30 Ml Udc) 30 ml PO Q4H PRN PRN Reason: GI Upset Stop: 03/31/23 17:14 Benztropine Mesylate (Benztropine Mesylate 1 Mg Tab) 1 mg PO HS JOSEMANUEL Stop: 03/31/23 21:59 Last Admin: 03/14/23 20:53 Dose: 1 mg Bismuth Subsalicylate (Bismuth Subsalicylate Liqd 236 Ml) 15 ml PO PRN PRN PRN Reason: Loose Stool Stop: 03/31/23 17:14 Docusate Sodium (Docusate Sodium 100 Mg Cap) 200 mg PO BID JOSEMANUEL Stop: 03/31/23 20:59 Last Admin: 03/15/23 08:24 Dose: 200 mg Haloperidol (Haloperidol 5 Mg Tab) 10 mg PO TID JOSEMANUEL Stop: 04/02/23 20:59 Last Admin: 03/15/23 08:24 Dose: 10 mg Hydroxyzine HCl (Hydroxyzine Hcl 25 Mg Tab) 50 mg PO HSZ PRN PRN Reason: Insomnia Stop: 04/09/23 16:37 Hydroxyzine HCl (Hydroxyzine Hcl 25 Mg Tab) 25 mg PO Q4H PRN PRN Reason: Anxiety Stop: 04/09/23 16:37 Magnesium Hydroxide (Magnesium Hydroxide Susp 30 Ml Udc) 30 ml PO DAILY PRN PRN Reason: Constipation Stop: 04/09/23 16:37 Multivitamins/Minerals (Cerovite Adv Formula Tab) 1 tab PO QAM JOSEMANUEL Stop: 04/01/23 08:59 Last Admin: 03/15/23 08:24 Dose: 1 tab Pantoprazole Sodium (Pantoprazole 40 Mg Tab) 40 mg PO QAM JOSEMANUEL Stop: 04/01/23 08:59 Last Admin: 03/15/23 08:25 Dose: 40 mg Sodium Chloride (Sodium Chloride 0.65% Na Soln 45 Ml ([place])) 1 - 2 sprays NA PRN PRN PRN Reason: Nasal Dryness/Congestion Stop: 03/31/23 17:14 Trazodone HCl (Trazodone Hcl 100 Mg Tab) 100 mg PO HS JOSEMANUEL Stop: 04/06/23 21:59 Last Admin: 03/14/23 20:54 Dose: 100 mg Venlafaxine HCl (Venlafaxine Hcl Xr 75 Mg Capxr) 75 mg PO QAM JOSEMANUEL Stop: 04/01/23 08:59 Last Admin: 03/15/23 08:25 Dose: 75 mg Vitamin D (Cholecalciferol 5,000 Units 125 Mcg Tab) 5,000 units PO QAM JOSEMANUEL Stop: 04/01/23 08:59 Last Admin: 03/15/23 08:24 Dose: 5,000 units Mental Health & Subst Abuse Tx Therapist Name of Therapist: Lala
[2023-03-15] MEDS: traZODone HCL 100 MG TAB PO SCH (20:33)
[2023-03-15] MEDS: BENZTROPINE MESYLATE 1 MG TAB PO SCH (20:35)
[2023-03-16] MEDS: CHOLECALCIFEROL 5,000 UNITS 125 MCG TAB PO SCH (09:29)
[2023-03-16] MEDS: DOCUSATE SODIUM 100 MG CAP PO SCH ×2 (09:30→20:52)
[2023-03-16] MEDS: haloperidoL 5 MG TAB PO SCH ×3 (09:30→20:55)
[2023-03-16] MEDS: CEROVITE ADV FORMULA TAB PO SCH (09:31)
[2023-03-16] MEDS: VENLAFAXINE HCL XR 75 MG CAPXR PO SCH (09:32)
[2023-03-16] MEDS: PANTOprazole 40 MG TAB PO SCH (09:32)
--- NOTE | 2023-03-16 11:46 | Psychiatric Progress Note ---
Date of Service March 16, 2023 Impression / Recommendations Impression Agree with assessment per Dr. Levin: 52 yo man with schizophrenia with multiple recent psychiatric hospitalizations after each has eloped from his shelter. Spent about 3 days outside of a hospital setting within the last 4 months. He is now on a 303 commitment. note that main indication for inpatient stay at this point is failure of community resources and although patient not openly having much in the way of positive symptoms he has marked negative symptoms that interfere with his ability to care for self outside of the hospital setting and given the unusual nature under which he was injured and inability to be maintained at supervised living ([facility]), inpatient is currently the least restrictive level of care. MNPR due to psychosis and limited ability to tolerate peers and hx of aggression with delusions 03/16/2023: Continues to evidence minimal symptoms while on the unit. When asked, he does still endorse seeing shadowy "men" and hearing indistinct voices, but says he's "used to them". Remains seclusive most of the time with limited interaction with peers or participation in the milieu. 03/15/2023: Pt has been resisting showering; he says he's showered, but all evidence points to the contrary. Has been stable behaviorally and has attended groups (though not participated in them much). He continues to report visual hallucinations as has long experienced but is not finding them distressing. He similarly continues to hear voices, but they are indistinct and he's not experiencing command hallucinations. Despite his doing well on the unit, the treatment team remain very concerned about his marked difficulty adjusting to the outpatient setting following several recent discharges from psychiatric inpatient facilities. 03/14/2023: Is doing well in the structured environment of the inpatient unit. Current symptoms do not seem to warrant any change in pharmacotherapy. Spoke at length about recent repeated failure to re-enter outpatient setting and the treatment team's consequent belief that he will require a period of extended inpatient treatment and intensive work on formulating a plan for outpatient re- entry in order to avoid repeated readmission. Pt "can't argue with that". 03/13/2023: Pt recalls me from my having seen him for consultation about a month ago when he was on the medical unit. He shrugs and is uninformative when I asked how he's ended up back in the hospital so soon after that. He reports no further injury but says his foot still hurts enough to make walking uncomfortable. Reports continuing visual hallucinations consistent with his longstanding reports but says they don't bother him much right now. He spends most of his time in his room. BP has improved somewhat but I'm concerned about hypotension risk with depot haloperidol. He's had to stop chlorpromazine due to hypotension and I'm somewhat concerned that antipsychotic monotherapy has proven ineffective over multiple trials (at least 6 identified) including clozapine, so it's unclear to me what an appropriate dose of depot haloperidol might be. 03/12/23: Mood remains stable without evidence for any overt delusions nor does he appear to be responding to any internal stimuli. Still with slightly lower BP this morning but denies any dizziness or symptoms of orthostasis. Foot pain is less overall today. Reality-based in his discussions without any evidence for vocalized delusions but remains isolative to his room for much of the day. Per review of previous orthopedic consultation by Dr. Jackson on 02/16/2023 recommendations of: "Consider repeat x-rays in 6 weeks, if he remains symptomatic. He can wean from the boot as tolerated. Recommend treating this edema with elevation and ice." 6 weeks will be on ~03/30/2023. If pain or swelling persists at that point will get repeat x-ray and involve orthopedics as needed. For now will continue with elevation, ice and ongoing use of the boot. Disposition remains largest challenge given multiple recent failed attempts of returning to his shelter due to significant increase in delusions, psychosis, and disorganized behavior as soon as he lives the structure of an inpatient setting. Remains on elopement precautions. (1) Schizophrenia: (2) Paranoid: Plan 03/16/2023: * continue haloperidol 10 mg TID - started this schedule 03/03/2023 * if medication change becomes necessary, would likely resume chlorpromazine * probable 304 hearing on February 03/15/2023: * continue haloperidol 10 mg TID - started this schedule 03/03/2023 * at this point I'm no longer considering depot haloperidol * if medication change becomes necessary, would likely resume chlorpromazine * probable 304 hearing on 03/14/2023: * continue haloperidol 10 mg TID - started this schedule 03/03/2023 * at this point I'm no longer considering depot haloperidol * if medication change becomes necessary, would likely resume chlorpromazine * probable 304 hearing on 03/13/2023: * continue haloperidol 10 mg TID - started this schedule 03/03/2023 * consider depot haloperidol if it appears BP sufficiently stable 03/12/2023: Continue current medications and tx plan. 03/11/2023: Continue current medications and tx plan. 03/10/2023: Continue current medications and tx plan. 03/09/2023: Continue current medications and tx plan. 03/08/2023: Continue current medications and tx plan. Consider haldol decanoate later this week. 03/07/2023: Start trazodone 100mg HS po. Continue haldol 10mg TID po 03/06/2023: Continue haldol 10mg TID po 03/05/2023: currently unclear if Haldol TID (30 mg total daily dose) will be adequate, will defer today as orthostasis is still resolving and patient fall risk with foot fx. 03/04/2023: continue current meds and tx plan. [facility] referral packet completed by DEEPA. 03/03/2023: unable to resume thorazine, offered to try splitting Haldol to TID to see if any improvement in orthostasis. 03/02/2023: The patient was admitted to the [facility] ([facility] inpatient mental health unit) on q15 min checks (behavioral with suicide precautions) for safety. The patient will participate in group, recreational, and milieu therapies and will be offered additional individual and family sessions as clinically approp amarilys. Continue to hold thorazine and monitor BP. Inventory Assets Strengths: taking PO meds, cooperative with tx plan Needs: longer term hospitalization, medical monitoring Suicide Risk Level Suicide Risk Level: Moderate (q15 min suicide checks) (recent SI and bizarre behavior d/t psychosis but denies SI and feels safe in the hospital and agrees to let staff know if he feels unsafe or needs additional support) Risk Factors Assessment Male: Yes : Yes Do You Have Access To A Gun?: No Mental Health Diagnoses: Yes Previous Attempt: Yes Previous Psychiatric Hospitalization: Yes Protective Factors Assessment Employed: No Interval History Identifying Information CASEY DAMIAN is a 52-year-old man who lives in a [place] psychiatric shelter with a history of schizophrenia, who eloped after returning to his shelter and was found by police wandering with concern for dehydration due to hot temperatures/humidity. He is on a 303 commitment. Chief Complaint "I'm fine". Review of Systems Sleep Information Total Hours of Sleep: 7.5 Meal Information Percent Meal Consumed - Breakfast: 100 Percent Meal Consumed - Lunch: 100 Percent Meal Consumed - Dinner: 100 Subjective Subjective The patient was seen and assessed and interval progress reviewed in a multidisciplinary team meeting with the treatment team. For details, see the "Impression" section. Overall I spent a total of 16 minutes for this admission including direct evaluation of the patient [id number], counseling the patient, reconciling and ordering medication, risk assessment, discussion during interdisciplinary treatment rounds, and documentation in the electronic health record. Physical Exam Psychiatric Orientation: alert Apperance: appropriately dressed, appropriately groomed and + disheveled Eye Contact: + fair eye contact Motor Behavior: no abnormal motor movements Speech: normal rate/rhythm/volume of speech (quiet) Affect: + constricted affect Mood: no depressed mood and no anxious mood Thought Process: + concrete thought process Thought Content: reality based without delusions Suicidal Thoughts: denies suicidal thoughts, denies suicidal plan and denies suicidal intent Homicidal Thoughts: denies homicidal thoughts Hallucinations: + visual hallucinations (intermittent of men in his room); no auditory hallucinations Cognition: recent memory grossly intact, remote memory grossly intact and attention grossly intact Estimated Intelligence: average estimated intelligence Insight: + limited insight Judgment: + limited judgement Vital Signs (Past 24 Hours) Last Vital Signs Temp 36.6 C 03/16/23 06:39 Pulse 67 03/16/23 06:40 Resp 16 03/16/23 06:39 BP 99/65 L 03/16/23 06:40 Pulse Ox 97 03/14/23 21:05 O2 Del Method Room Air 03/14/23 21:05 Results & Data ([facility]) Current Inpatient Medications Current Inpatient Medications: Current Inpatient Medications Acetaminophen (Acetaminophen 325 Mg Tab) 650 mg PO Q4H PRN PRN Reason: Headache or Minor Fever Stop: 03/31/23 17:14 Last Admin: 03/10/23 21:34 Dose: 650 mg Al Hydrox/Mg Hydrox/Simethicone (Aluminum/Magnesium Susp 30 Ml Udc) 30 ml PO Q4H PRN PRN Reason: GI Upset Stop: 03/31/23 17:14 Benztropine Mesylate (Benztropine Mesylate 1 Mg Tab) 1 mg PO HS JOSEMANUEL Stop: 03/31/23 21:59 Last Admin: 03/15/23 20:35 Dose: 1 mg Bismuth Subsalicylate (Bismuth Subsalicylate Liqd 236 Ml) 15 ml PO PRN PRN PRN Reason: Loose Stool Stop: 03/31/23 17:14 Docusate Sodium (Docusate Sodium 100 Mg Cap) 200 mg PO BID JOSEMANUEL Stop: 03/31/23 20:59 Last Admin: 03/16/23 09:30 Dose: 200 mg Haloperidol (Haloperidol 5 Mg Tab) 10 mg PO TID JOSEMANUEL Stop: 04/02/23 20:59 Last Admin: 03/16/23 09:30 Dose: 10 mg Hydroxyzine HCl (Hydroxyzine Hcl 25 Mg Tab) 50 mg PO HSZ PRN PRN Reason: Insomnia Stop: 04/09/23 16:37 Hydroxyzine HCl (Hydroxyzine Hcl 25 Mg Tab) 25 mg PO Q4H PRN PRN Reason: Anxiety Stop: 04/09/23 16:37 Magnesium Hydroxide (Magnesium Hydroxide Susp 30 Ml Udc) 30 ml PO DAILY PRN PRN Reason: Constipation Stop: 04/09/23 16:37 Multivitamins/Minerals (Cerovite Adv Formula Tab) 1 tab PO QAM JOSEMANUEL Stop: 04/01/23 08:59 Last Admin: 03/16/23 09:31 Dose: 1 tab Pantoprazole Sodium (Pantoprazole 40 Mg Tab) 40 mg PO QAM JOSEMANUEL Stop: 04/01/23 08:59 Last Admin: 03/16/23 09:32 Dose: 40 mg Sodium Chloride (Sodium Chloride 0.65% Na Soln 45 Ml ([place])) 1 - 2 sprays NA PRN PRN PRN Reason: Nasal Dryness/Congestion Stop: 03/31/23 17:14 Trazodone HCl (Trazodone Hcl 100 Mg Tab) 100 mg PO HS JOSEMANUEL Stop: 04/06/23 21:59 Last Admin: 03/15/23 20:33 Dose: 100 mg Venlafaxine HCl (Venlafaxine Hcl Xr 75 Mg Capxr) 75 mg PO QAM [facility] Stop: 04/01/23 08:59 Last Admin: 03/16/23 09:32 Dose: 75 mg Vitamin D (Cholecalciferol 5,000 Units 125 Mcg Tab) 5,000 units PO QAM [facility] Stop: 04/01/23 08:59 Last Admin: 03/16/23 09:29 Dose: 5,000 units Mental Health & Subst Abuse Tx Therapist Name of Therapist: Lala
--- NOTE | 2023-03-16 20:10 | Psychiatric Progress Note ---
Date of Service March 17, 2023 Impression / Recommendations Impression Agree with assessment per Dr. Levin: 52 yo man with schizophrenia with multiple recent psychiatric hospitalizations after each has eloped from his long term. Spent about 3 days outside of a hospital setting within the last 4 months. He is now on a 303 commitment. note that main indication for inpatient stay at this point is failure of community resources and although patient not openly having much in the way of positive symptoms he has marked negative symptoms that interfere with his ability to care for self outside of the hospital setting and given the unusual nature under which he was injured and inability to be maintained at supervised living ([facility]), inpatient is currently the least restrictive level of care. MNPR due to psychosis and limited ability to tolerate peers and hx of aggression with delusions 03/17/2023: Pt has been more avoidant and seclusive. This morning he wanted to inspect the medication blister pack before he would accept medication, which he eventually did take. He endorses "a little" increase in intensity of auditory and visual hallucinosis. Discussed resuming chlorpromazine at a low dose since, historically, he's only seemed to do well with combined haloperidol and chlorpromazine and not with monotherapy with either. He says, and review of available records appears to show varying BP that does not appear temporally correlated with medication use. Will cautiously resume low-dose chlorpromazine. 03/16/2023: Continues to evidence minimal symptoms while on the unit. When asked, he does still endorse seeing shadowy "men" and hearing indistinct voices, but says he's "used to them". Remains seclusive most of the time with limited interaction with peers or participation in the milieu. 03/15/2023: Pt has been resisting showering; he says he's showered, but all evidence points to the contrary. Has been stable behaviorally and has attended groups (though not participated in them much). He continues to report visual hallucinations as has long experienced but is not finding them distressing. He similarly continues to hear voices, but they are indistinct and he's not experiencing command hallucinations. Despite his doing well on the unit, the treatment team remain very concerned about his marked difficulty adjusting to the outpatient setting following several recent discharges from psychiatric inpatient facilities. 03/14/2023: Is doing well in the structured environment of the inpatient unit. Current symptoms do not seem to warrant any change in pharmacotherapy. Spoke at length about recent repeated failure to re-enter outpatient setting and the treatment team's consequent belief that he will require a period of extended inpatient treatment and intensive work on formulating a plan for outpatient re- entry in order to avoid repeated readmission. Pt "can't argue with that". 03/13/2023: Pt recalls me from my having seen him for consultation about a month ago when he was on the medical unit. He shrugs and is uninformative when I asked how he's ended up back in the hospital so soon after that. He reports no further injury but says his foot still hurts enough to make walking uncomfortable. Re ports continuing visual hallucinations consistent with his longstanding reports but says they don't bother him much right now. He spends most of his time in his room. BP has improved somewhat but I'm concerned about hypotension risk with depot haloperidol. He's had to stop chlorpromazine due to hypotension and I'm somewhat concerned that antipsychotic monotherapy has proven ineffective over multiple trials (at least 6 identified) including clozapine, so it's unclear to me what an appropriate dose of depot haloperidol might be. 03/12/23: Mood remains stable without evidence for any overt delusions nor does he appear to be responding to any internal stimuli. Still with slightly lower BP this morning but denies any dizziness or symptoms of orthostasis. Foot pain is less overall today. Reality-based in his discussions without any evidence for vocalized delusions but remains isolative to his room for much of the day. Per review of previous orthopedic consultation by Dr. Jackson on 02/16/2023 recommendations of: "Consider repeat x-rays in 6 weeks, if he remains symptomatic. He can wean from the boot as tolerated. Recommend treating this edema with elevation and ice." 6 weeks will be on ~03/30/2023. If pain or swelling persists at that point will get repeat x-ray and involve orthopedics as needed. For now will continue with elevation, ice and ongoing use of the boot. Disposition remains largest challenge given multiple recent failed attempts of returning to his long term due to significant increase in delusions, psychosis, and disorganized behavior as soon as he lives the structure of an inpatient setting. Remains on elopement precautions. (1) Schizophrenia: (2) Paranoid: Plan 03/16/2023: * continue haloperidol 10 mg TID - started this schedule 03/03/2023 * resume chlorpromazine 10 mg BID * probable 304 hearing on February 03/15/2023: * continue haloperidol 10 mg TID - started this schedule 03/03/2023 * at this point I'm no longer considering depot haloperidol * if medication change becomes necessary, would likely resume chlorpromazine * probable 304 hearing on 03/14/2023: * continue haloperidol 10 mg TID - started this schedule 03/03/2023 * at this point I'm no longer considering depot haloperidol * if medication change becomes necessary, would likely resume chlorpromazine * probable 304 hearing on 03/13/2023: * continue haloperidol 10 mg TID - started this schedule 03/03/2023 * consider depot haloperidol if it appears BP sufficiently stable 03/12/2023: Continue current medications and tx plan. 03/11/2023: Continue current medications and tx plan. 03/10/2023: Continue current medications and tx plan. 03/09/2023: Continue current medications and tx plan. 03/08/2023: Continue current medications and tx plan. Consider haldol decanoate later this week. 03/07/2023: Start trazodone 100mg HS po. Continue haldol 10mg TID po 03/06/2023: Continue haldol 10mg TID po 03/05/2023: currently unclear if Haldol TID (30 mg total daily dose) will be adequate, will defer today as orthostasis is still resolving and patient fall risk with foot fx. 03/04/2023: continue current meds and tx plan. [facility] referral packet completed by [facility]. 03/03/2023: unable to resume thorazine, offered to try splitting Haldol to TID to see if any improvement in orthostasis. 03/02/2023: The patient was admitted to the [facility] ([facility] mental health unit) on q15 min checks (behavioral with suicide precautions) for safety. The patient will participate in group, recreational, and milieu therapies and will be offered additional individual and family sessions as clinically appropriate. Continue to hold thorazine and monitor BP. Inventory Assets Strengths: taking PO meds, cooperative with tx plan Needs: longer term hospitalization, medical monitoring Suicide Risk Level Suicide Risk Level: Moderate (q15 min suicide checks) (recent SI and bizarre behavior d/t psychosis but denies SI and feels safe in the hospital and agrees to let staff know if he feels unsafe or needs additional support) Risk Factors Assessment Male: Yes : Yes Do You Have Access To A Gun?: No Mental Health Diagnoses: Yes Previous Attempt: Yes Previous Psychiatric Hospitalization: Yes Protective Factors Assessment Employed: No Interval History Identifying Information CASEY DAMIAN is a 52-year-old man who lives in a [facility] home with a history of schizophrenia, who eloped after returning to his long term and was found by police wandering with concern for dehydration due to hot temperatures/humidity. He is on a 303 commitment. Chief Complaint "I guess OK". Review of Systems Sleep Information Total Hours of Sleep: 7.5 Meal Information Percent Meal Consumed - Breakfast: 100 Percent Meal Consumed - Lunch: 100 Percent Meal Consumed - Dinner: 100 Subjective Subjective The patient was seen and assessed and interval progress reviewed in a multidisciplinary team meeting with the treatment team. For details, see the "Impression" section. Overall I spent a total of 26 minutes for this inpatient follow-up including rev iew of chart records, review of test results, direct evaluation of the patient [id number], counseling the patient, risk assessment, discussion during interdisciplinary treatment rounds, and documentation in the electronic health record. Physical Exam Psychiatric Orientation: alert Apperance: appropriately dressed and appropriately groomed Eye Contact: + fair eye contact Motor Behavior: no abnormal motor movements Speech: normal rate/rhythm/volume of speech (quiet) Affect: + constricted affect Mood: no depressed mood and no anxious mood Thought Process: + concrete thought process Thought Content: + paranoid (suspicious about medications) Suicidal Thoughts: denies suicidal thoughts, denies suicidal plan and denies suicidal intent Homicidal Thoughts: denies homicidal thoughts Hallucinations: + visual hallucinations (intermittent of men in his room); no auditory hallucinations Cognition: recent memory grossly intact, remote memory grossly intact and attention grossly intact Estimated Intelligence: average estimated intelligence Insight: + limited insight Judgment: + limited judgement Vital Signs (Past 24 Hours) Last Vital Signs Temp 36.6 C 09/26/23 06:39 Pulse 67 03/16/23 06:40 Resp 16 03/16/23 06:39 BP 99/65 L 03/16/23 06:40 Pulse Ox 97 03/14/23 21:05 O2 Del Method Room Air 03/14/23 21:05 Results & Data ([facility]) Current Inpatient Medications Current Inpatient Medications: Current Inpatient Medications Acetaminophen (Acetaminophen 325 Mg Tab) 650 mg PO Q4H PRN PRN Reason: Headache or Minor Fever Stop: 03/31/23 17:14 Last Admin: 03/10/23 21:34 Dose: 650 mg Al Hydrox/Mg Hydrox/Simethicone (Aluminum/Magnesium Susp 30 Ml Udc) 30 ml PO Q4H PRN PRN Reason: GI Upset Stop: 03/31/23 17:14 Benztropine Mesylate (Benztropine Mesylate 1 Mg Tab) 1 mg PO HS JOSEMANUEL Stop: 03/31/23 21:59 Last Admin: 03/15/23 20:35 Dose: 1 mg Bismuth Subsalicylate (Bismuth Subsalicylate Liqd 236 Ml) 15 ml PO PRN PRN PRN Reason: Loose Stool Stop: 03/31/23 17:14 Docusate Sodium (Docusate Sodium 100 Mg Cap) 200 mg PO BID JOSEMANUEL Stop: 03/31/23 20:59 Last Admin: 03/16/23 09:30 Dose: 200 mg Haloperidol (Haloperidol 5 Mg Tab) 10 mg PO TID JOSEMANUEL Stop: 04/02/23 20:59 Last Admin: 03/16/23 13:53 Dose: 10 mg Hydroxyzine HCl (Hydroxyzine Hcl 25 Mg Tab) 50 mg PO HSZ PRN PRN Reason: Insomnia Stop: 04/09/23 16:37 Hydroxyzine HCl (Hydroxyzine Hcl 25 Mg Tab) 25 mg PO Q4H PRN PRN Reason: Anxiety Stop: 04/09/23 16:37 Magnesium Hydroxide (Magnesium Hydroxide Susp 30 Ml Udc) 30 ml PO DAILY PRN PRN Reason: Constipation Stop: 04/09/23 16:37 Multivitamins/Minerals (Cerovite Adv Formula Tab) 1 tab PO QAM JOSEMANUEL Stop: 04/01/23 08:59 Last Admin: 03/16/23 09:31 Dose: 1 tab Pantoprazole Sodium (Pantoprazole 40 Mg Tab) 40 mg PO QAM JOSEMANUEL Stop: 04/01/23 08:59 Last Admin: 03/16/23 09:32 Dose: 40 mg Sodium Chloride (Sodium Chloride 0.65% Na Soln 45 Ml ([place])) 1 - 2 sprays NA PRN PRN PRN Reason: Nasal Dryness/Congestion Stop: 03/31/23 17:14 Trazodone HCl (Trazodone Hcl 100 Mg Tab) 100 mg PO HS JOSEMANUEL Stop: 04/06/23 21:59 Last Admin: 03/15/23 20:33 Dose: 100 mg Venlafaxine HCl (Venlafaxine Hcl Xr 75 Mg Capxr) 75 mg PO QAM JOSEMANUEL Stop: 04/01/23 08:59 Last Admin: 03/16/23 09:32 Dose: 75 mg Vitamin D (Cholecalciferol 5,000 Units 125 Mcg Tab) 5,000 units PO QAM JOSEMANUEL Stop: 04/01/23 08:59 Last Admin: 03/16/23 09:29 Dose: 5,000 units Mental Health & Subst Abuse Tx Therapist Name of Therapist: Lala
[2023-03-16] MEDS: traZODone HCL 100 MG TAB PO SCH (20:53)
[2023-03-16] MEDS: BENZTROPINE MESYLATE 1 MG TAB PO SCH (20:53)
[2023-03-17] MEDS: CHOLECALCIFEROL 5,000 UNITS 125 MCG TAB PO SCH (08:52)
[2023-03-17] MEDS: haloperidoL 5 MG TAB PO SCH ×3 (08:52→20:54)
[2023-03-17] MEDS: PANTOprazole 40 MG TAB PO SCH (08:52)
[2023-03-17] MEDS: VENLAFAXINE HCL XR 75 MG CAPXR PO SCH (08:52)
[2023-03-17] MEDS: CEROVITE ADV FORMULA TAB PO SCH (08:52)
[2023-03-17] MEDS: DOCUSATE SODIUM 100 MG CAP PO SCH ×2 (08:56→20:51)
[2023-03-17] MEDS: chlorproMAZINE HCL 25 MG TAB PO SCH ×2 (14:59→20:52)
[2023-03-17] MEDS: BENZTROPINE MESYLATE 1 MG TAB PO SCH (20:54)
[2023-03-17] MEDS: traZODone HCL 100 MG TAB PO SCH (20:58)
[2023-03-17] MEDS ORDERED: chlorproMAZINE HCL 10 MG TAB PO SCH (21:00)
[2023-03-17] MEDS ORDERED: chlorproMAZINE HCL 25 MG TAB PO SCH (21:00)
[2023-03-18] MEDS: chlorproMAZINE HCL 25 MG TAB PO SCH ×3 (08:39→20:40)
[2023-03-18] MEDS: DOCUSATE SODIUM 100 MG CAP PO SCH ×3 (08:40→20:47)
[2023-03-18] MEDS: CHOLECALCIFEROL 5,000 UNITS 125 MCG TAB PO SCH (08:40)
[2023-03-18] MEDS: haloperidoL 5 MG TAB PO SCH ×3 (08:41→20:41)
[2023-03-18] MEDS: VENLAFAXINE HCL XR 75 MG CAPXR PO SCH (08:42)
[2023-03-18] MEDS: CEROVITE ADV FORMULA TAB PO SCH (08:42)
--- NOTE | 2023-03-18 08:57 | Psychiatric Progress Note ---
Date of Service March 18, 2023 Impression / Recommendations Impression Agree with assessment per Dr. Levin: 52 yo man with schizophrenia with multiple recent psychiatric hospitalizations after each has eloped from his retirement. Spent about 3 days outside of a hospital setting within the last 4 months. He is now on a 303 commitment. note that main indication for inpatient stay at this point is failure of community resources and although patient not openly having much in the way of positive symptoms he has marked negative symptoms that interfere with his ability to care for self outside of the hospital setting and given the unusual nature under which he was injured and inability to be maintained at supervised living ([facility]), inpatient is currently the least restrictive level of care. MNPR due to psychosis and limited ability to tolerate peers and hx of aggression with delusions 03/18/2023: Hearing for extended commitment under part 304 was held today, at which I testified. The petition was upheld. Addition of chlorpromazine (which, admittedly, is at a very low dose) has certainly not resulted in any reduction in blood pressure - it has increased a bit since yesterday. This would be consistent with pt's observation that his "blood pressure is up and down all the time" irrespective of medication and staff's extensive review of BP over several of his hospitalizations that does not show any correlation between BP and antipsychotic use. Pt says he "might want to" increase dose (he's used 50 mg TID most often) but is not reporting substantial symptoms at this time. 03/17/2023: Pt has been more avoidant and seclusive. This morning he wanted to inspect the medication blister pack before he would accept medication, which he eventually did take. He endorses "a little" increase in intensity of auditory and visual hallucinosis. Discussed resuming chlorpromazine at a low dose since, historically, he's only seemed to do well with combined haloperidol and chlorpromazine and not with monotherapy with either. He says, and review of available records appears to show varying BP that does not appear temporally correlated with medication use. Will cautiously resume low-dose chlorpromazine. 03/16/2023: Continues to evidence minimal symptoms while on the unit. When asked, he does still endorse seeing shadowy "men" and hearing indistinct voices, but says he's "used to them". Remains seclusive most of the time with limited interaction with peers or participation in the milieu. 03/15/2023: Pt has been resisting showering; he says he's showered, but all evidence points to the contrary. Has been stable behaviorally and has attended groups (though not participated in them much). He continues to report visual hallucinations as has long experienced but is not finding them distressing. He similarly continues to hear voices, but they are indistinct and he's not experiencing command hallucinations. Despite his doing well on the unit, the treatment team remain very concerned about his marked difficulty adjusting to the outpatient setting following several recent discharges from psychiatric inpatient facilities. 03/14/2023: Is doing well in the structured environment of the inpatient unit. Current symptoms do not seem to warrant any change in pharmacotherapy. Spoke at length about recent repeated failure to re-enter outpatient setting and the treatment team's consequent belief that he will require a period of extended inpatient treatment and intensive work on formulating a plan for outpatient re- entry in order to avoid repeated readmission. Pt "can't argue with that". 03/13/2023: Pt recalls me from my having seen him for consultation about a month ago when he was on the medical unit. He shrugs and is uninformative when I asked how he's ended up back in the hospital so soon after that. He reports no further injury but says his foot still hurts enough to make walking uncomfortable. Reports continuing visual hallucinations consistent with his longstanding reports but says they don't bother him much right now. He spends most of his time in his room. BP has improved somewhat but I'm concerned about hypotension risk with depot haloperidol. He's had to stop chlorpromazine due to hypotension and I'm somewhat concerned that antipsychotic monotherapy has proven ineffective over multiple trials (at least 6 identified) including clozapine, so it's unclear to me what an appropriate dose of depot haloperidol might be. 03/12/23: Mood remains stable without evidence for any overt delusions nor does he appear to be responding to any internal stimuli. Still with slightly lower BP this morning but denies any dizziness or symptoms of orthostasis. Foot pain is less overall today. Reality-based in his discussions without any evidence for vocalized delusions but remains isolative to his room for much of the day. Per review of previous orthopedic consultation by Dr. Jackson on 02/16/2023 recommendations of: "Consider repeat x-rays in 6 weeks, if he remains symptomatic. He can wean from the boot as tolerated. Recommend treating this edema with elevation and ice." 6 weeks will be on ~03/30/2023. If pain or swelling persists at that point will get repeat x-ray and involve orthopedics as needed. For now will continue with elevation, ice and ongoing use of the boot. Disposition remains largest challenge given multiple recent failed attempts of returning to his retirement due to significant increase in delusions, psychosis, and disorganized behavior as soon as he lives the structure of an inpatient setting. Remains on elopement precautions. (1) Schizophrenia: (2) Paranoid: Plan 03/18/2023: * continue haloperidol 10 mg TID - started this schedule 03/03/2023 * continue chlorpromazine 25 mg TID - resumed 03/17/2023 * was committed for extended treatment at 304 hearing today, plan to pursue [facility] hospital transfer 03/17/2023: * continue haloperidol 10 mg TID - started this schedule 03/03/2023 * increase chlorpromazine to 25 mg TID * probable 304 hearing on February 03/16/2023: * continue haloperidol 10 mg TID - started this schedule 03/03/2023 * resume chlorpromazine 10 mg BID * probable 304 hearing on February 03/15/2023: * continue haloperidol 10 mg TID - started this schedule 03/03/2023 * at this point I'm no longer considering depot haloperidol * if medication change becomes necessary, would likely resume chlorpromazine * probable 304 hearing on 03/14/2023: * continue haloperidol 10 mg TID - started this schedule 03/03/2023 * at this point I'm no longer considering depot haloperidol * if medication change becomes necessary, would likely resume chlorpromazine * probable 304 hearing on 03/13/2023: * continue haloperidol 10 mg TID - started this schedule 03/03/2023 * consider depot haloperidol if it appears BP sufficiently stable 03/12/2023: Continue current medications and tx plan. 03/11/2023: Continue current medications and tx plan. 03/10/2023: Continue current medications and tx plan. 03/09/2023: Continue current medications and tx plan. 03/08/2023: Continue current medications and tx plan. Consider haldol decanoate later this week. 03/07/2023: Start trazodone 100mg HS po. Continue haldol 10mg TID po 03/06/2023: Continue haldol 10mg TID po 03/05/2023: currently unclear if Haldol TID (30 mg total daily dose) will be adequate, will defer today as orthostasis is still resolving and patient fall risk with foot fx. 03/04/2023: continue current meds and tx plan. [facility] referral packet completed by DEEPA. 03/03/2023: unable to resume thorazine, offered to try splitting Haldol to TID to see if any improvement in orthostasis. 03/02/2023: The patient was admitted to the [facility] ([facility] mental health unit) on q15 min checks (behavioral with suicide precautions) for safety. The patient will participate in group, recreational, and milieu therapies and will be offered additional individual and family sessions as clinically appropriate. Continue to hold thorazine and monitor BP. Inventory Assets Strengths: taking PO meds, cooperative with tx plan Needs: longer term hospitalization, medical monitoring Suicide Risk Level Suicide Risk Level: Moderate (q15 min suicide checks) (recent SI and bizarre behavior d/t psychosis but denies SI and feels safe in the hospital and agrees to let staff know if he feels unsafe or needs additional support) Risk Factors Assessment Male: Yes : Yes Do You Have Access To A Gun?: No Mental Health Diagnoses: Yes Previous Attempt: Yes Previous Psychiatric Hospitalization: Yes Protective Factors Assessment Employed: No Interval History Identifying Information CASEY DAMIAN is a 52-year-old man who lives in a [place] psychiatric retirement with a history of schizophrenia, who eloped after returning to his retirement and was found by police wandering with concern for dehydration due to hot temperatures/humidity. He is on a 304 commitment as of 03/18/2023. Chief Complaint "I'm OK". Review of Systems Sleep Information Total Hours of Sleep: 7.75 Meal Information Percent Meal Consumed - Breakfast: 100 Percent Meal Consumed - Lunch: 100 Percent Meal Consumed - Dinner: 100 Subjective Subjective The patient was seen and assessed and interval progress reviewed in a multidisciplinary team meeting with the treatment team. For details, see the "Impression" section. Overall I spent a total of 74 minutes for this inpatient follow-up including review of test results, direct evaluation of the patient [id number], counseling the patient, risk assessment, discussion during interdisciplinary treatment rounds, testifying at the patient's commitment hearing, and documentation in the electronic health record. Physical Exam Psychiatric Orientation: alert Apperance: appropriately dressed, appropriately groomed and + disheveled Eye Contact: + fair eye contact Motor Behavior: no abnormal motor movements Speech: normal rate/rhythm/volume of speech (quiet) Affect: + constricted affect Mood: no depressed mood and no anxious mood Thought Process: + concrete thought process Thought Content: + paranoid (suspicious about medications) and reality based without delusions; no delusions (expressed today, but had some last night) Suicidal Thoughts: denies suicidal thoughts, denies suicidal plan and denies suicidal intent Homicidal Thoughts: denies homicidal thoughts Hallucinations: + visual hallucinations (intermittent of men in his room); no auditory hallucinations Cognition: recent memory grossly intact, remote memory grossly intact and attention grossly intact Estimated Intelligence: average estimated intelligence Insight: + limited insight Judgment: + limited judgement Vital Signs (Past 24 Hours) Last Vital Signs Temp 36.8 C 03/18/23 06:38 Pulse 86 03/18/23 06:38 Resp 16 03/18/23 06:38 BP 100/67 03/18/23 06:38 Pulse Ox 97 03/14/23 21:05 O2 Del Method Room Air 03/14/23 21:05 Results & Data ([facility]) Current Inpatient Medications Current Inpatient Medications: Current Inpatient Medications Acetaminophen (Acetaminophen 325 Mg Tab) 650 mg PO Q4H PRN PRN Reason: Headache or Minor Fever Stop: 03/31/23 17:14 Last Admin: 03/10/23 21:34 Dose: 650 mg Al Hydrox/Mg Hydrox/Simethicone (Aluminum/Magnesium Susp 30 Ml Udc) 30 ml PO Q4H PRN PRN Reason: GI Upset Stop: 03/31/23 17:14 Benztropine Mesylate (Benztropine Mesylate 1 Mg Tab) 1 mg PO HS JOSEMANUEL Stop: 03/31/23 21:59 Last Admin: 03/17/23 20:54 Dose: 1 mg Bismuth Subsalicylate (Bismuth Subsalicylate Liqd 236 Ml) 15 ml PO PRN PRN PRN Reason: Loose Stool Stop: 03/31/23 17:14 Chlorpromazine HCl (Chlorpromazine Hcl 25 Mg Tab) 25 mg PO TID JOSEMANUEL Stop: 04/16/23 14:29 Last Admin: 03/18/23 08:39 Dose: 25 mg Docusate Sodium (Docusate Sodium 100 Mg Cap) 200 mg PO BID JOSEMANUEL Stop: 03/31/23 20:59 Last Admin: 03/18/23 08:40 Dose: 200 mg Haloperidol (Haloperidol 5 Mg Tab) 10 mg PO TID JOSEMANUEL Stop: 04/02/23 20:59 Last Admin: 03/18/23 08:41 Dose: 10 mg Hydroxyzine HCl (Hydroxyzine Hcl 25 Mg Tab) 50 mg PO HSZ PRN PRN Reason: Insomnia Stop: 04/09/23 16:37 Hydroxyzine HCl (Hydroxyzine Hcl 25 Mg Tab) 25 mg PO Q4H PRN PRN Reason: Anxiety Stop: 04/09/23 16:37 Magnesium Hydroxide (Magnesium Hydroxide Susp 30 Ml Udc) 30 ml PO DAILY PRN PRN Reason: Constipation Stop: 04/09/23 16:37 Multivitamins/Minerals (Cerovite Adv Formula Tab) 1 tab PO QAM JOSEMANUEL Stop: 04/01/23 08:59 Last Admin: 03/18/23 08:42 Dose: 1 tab Pantoprazole Sodium (Pantoprazole 40 Mg Tab) 40 mg PO QAM JOSEMANUEL Stop: 04/01/23 08:59 Last Admin: 03/17/23 08:52 Dose: 40 mg Sodium Chloride (Sodium Chloride 0.65% Na Soln 45 Ml (Bent)) 1 - 2 sprays NA PRN PRN PRN Reason: Nasal Dryness/Congestion Stop: 03/31/23 17:14 Trazodone HCl (Trazodone Hcl 100 Mg Tab) 100 mg PO HS JOSEMANUEL Stop: 04/06/23 21:59 Last Admin: 03/17/23 20:58 Dose: 100 mg Venlafaxine HCl (Venlafaxine Hcl Xr 75 Mg Capxr) 75 mg PO QAM JOSEMANUEL Stop: 04/01/23 08:59 Last Admin: 03/18/23 08:42 Dose: 75 mg Vitamin D (Cholecalciferol 5,000 Units 125 Mcg Tab) 5,000 units PO QAM [facility] Stop: 04/01/23 08:59 Last Admin: 03/18/23 08:40 Dose: 5,000 units Mental Health & Subst Abuse Tx Therapist Name of Therapist: Lala
[2023-03-18] MEDS: PANTOprazole 40 MG TAB PO SCH ×2 (10:09→20:39)
[2023-03-18] MEDS: traZODone HCL 100 MG TAB PO SCH (20:37)
[2023-03-18] MEDS: BENZTROPINE MESYLATE 1 MG TAB PO SCH (20:45)
--- NOTE | 2023-03-19 06:57 | Psychiatric Progress Note ---
Date of Service March 19, 2023 Impression / Recommendations Impression Agree with assessment per Dr. Levin: 52 yo man with schizophrenia with multiple recent psychiatric hospitalizations after each has eloped from his residential. Spent about 3 days outside of a hospital setting within the last 4 months. He is now on a 303 commitment. note that main indication for inpatient stay at this point is failure of community resources and although patient not openly having much in the way of positive symptoms he has marked negative symptoms that interfere with his ability to care for self outside of the hospital setting and given the unusual nature under which he was injured and inability to be maintained at supervised living ([facility]), inpatient is currently the least restrictive level of care. MNPR due to psychosis and limited ability to tolerate peers and hx of aggression with delusions 03/19/2023: Continues to tolerate addition of chlorpromazine at a low dose of 25 mg TID. BP is lower today, but there's minimal temporal correlation with chlorpromazine use and pt has been less suspicious and guarded since it was resumed. He wants to continue it. 03/18/2023: Hearing for extended commitment under part 304 was held today, at which I testified. The petition was upheld. Addition of chlorpromazine (which, admittedly, is at a very low dose) has certainly not resulted in any reduction in blood pressure - it has increased a bit since yesterday. This would be consistent with pt's observation that his "blood pressure is up and down all the time" irrespective of medication and staff's extensive review of BP over several of his hospitalizations that does not show any correlation between BP and antipsychotic use. Pt says he "might want to" increase dose (he's used 50 mg TID most often) but is not reporting substantial symptoms at this time. 03/17/2023: Pt has been more avoidant and seclusive. This morning he wanted to inspect the medication blister pack before he would accept medication, which he eventually did take. He endorses "a little" increase in intensity of auditory and visual hallucinosis. Discussed resuming chlorpromazine at a low dose since, historically, he's only seemed to do well with combined haloperidol and chlorpromazine and not with monotherapy with either. He says, and review of available records appears to show varying BP that does not appear temporally correlated with medication use. Will cautiously resume low-dose chlorpromazine. 03/16/2023: Continues to evidence minimal symptoms while on the unit. When asked, he does still endorse seeing shadowy "men" and hearing indistinct voices, but says he's "used to them". Remains seclusive most of the time with limited interaction with peers or participation in the milieu. 03/15/2023: Pt has been resisting showering; he says he's showered, but all evidence points to the contrary. Has been stable behaviorally and has attended groups (though not participated in them much). He continues to report visual hallucinations as has long experienced but is not finding them distressing. He similarly continues to hear voices, but they are indistinct and he's not experiencing command hallucinations. Despite his doing well on the unit, the treatment team remain very concerned about his marked difficulty adjusting to the outpatient setting following several recent discharges from psychiatric inpatient facilities. 03/14/2023: Is doing well in the structured environment of the inpatient unit. Current symptoms do not seem to warrant any change in pharmacotherapy. Spoke at length about recent repeated failure to re-enter outpatient setting and the treatment team's consequent belief that he will require a period of extended inpatient treatment and intensive work on formulating a plan for outpatient re- entry in order to avoid repeated readmission. Pt "can't argue with that". 03/13/2023: Pt recalls me from my having seen him for consultation about a month ago when he was on the medical unit. He shrugs and is uninformative when I asked how he's ended up back in the hospital so soon after that. He reports no further injury but says his foot still hurts enough to make walking uncomfortable. Reports continuing visual hallucinations consistent with his longstanding reports but says they don't bother him much right now. He spends most of his time in his room. BP has improved somewhat but I'm concerned about hypotension risk with depot haloperidol. He's had to stop chlorpromazine due to hypotension and I'm somewhat concerned that antipsychotic monotherapy has proven ineffective over multiple trials (at least 6 identified) including clozapine, so it's unclear to me what an appropriate dose of depot haloperidol might be. 03/12/23: Mood remains stable without evidence for any overt delusions nor does he appear to be responding to any internal stimuli. Still with slightly lower BP this morning but denies any dizziness or symptoms of orthostasis. Foot pain is less overall today. Reality-based in his discussions without any evidence for vocalized delusions but remains isolative to his room for much of the day. Per review of previous orthopedic consultation by Dr. Jackson on 02/16/2023 recommendations of: "Consider repeat x-rays in 6 weeks, if he remains symptomatic. He can wean from the boot as tolerated. Recommend treating this edema with elevation and ice." 6 weeks will be on ~03/30/2023. If pain or swelling persists at that point will get repeat x-ray and involve orthopedics as needed. For now will continue with elevation, ice and ongoing use of the boot. Disposition remains largest challenge given multiple recent failed attempts of returning to his residential due to significant increase in delusions, psychosis, and disorganized behavior as soon as he lives the structure of an inpatient setting. Remains on elopement precautions. (1) Schizophrenia: (2) Paranoid: Plan 03/18/2023: * continue haloperidol 10 mg TID - started this schedule 03/03/2023 * continue chlorpromazine 25 mg TID - resumed 03/17/2023 03/18/2023: * continue haloperidol 10 mg TID - started this schedule 03/03/2023 * continue chlorpromazine 25 mg TID - resumed 03/17/2023 * was committed for extended treatment at 304 hearing today, plan to pursue state hospital transfer 03/17/2023: * continue haloperidol 10 mg TID - started this schedule 03/03/2023 * increase chlorpromazine to 25 mg TID * probable 304 hearing on February 03/16/2023: * continue haloperidol 10 mg TID - started this schedule 03/03/2023 * resume chlorpromazine 10 mg BID * probable 304 hearing on February 03/15/2023: * continue haloperidol 10 mg TID - started this schedule 03/03/2023 * at this point I'm no longer considering depot haloperidol * if medication change becomes necessary, would likely resume chlorpromazine * probable 304 hearing on 03/14/2023: * continue haloperidol 10 mg TID - started this schedule 03/03/2023 * at this point I'm no longer considering depot haloperidol * if medication change becomes necessary, would likely resume chlorpromazine * probable 304 hearing on 03/13/2023: * continue haloperidol 10 mg TID - started this schedule 03/03/2023 * consider depot haloperidol if it appears BP sufficiently stable 03/12/2023: Continue current medications and tx plan. 03/11/2023: Continue current medications and tx plan. 03/10/2023: Continue current medications and tx plan. 03/09/2023: Continue current medications and tx plan. 03/08/2023: Continue current medications and tx plan. Consider haldol decanoate later this week. 03/07/2023: Start trazodone 100mg HS po. Continue haldol 10mg TID po 03/06/2023: Continue haldol 10mg TID po 03/05/2023: currently unclear if Haldol TID (30 mg total daily dose) will be adequate, will defer today as orthostasis is still resolving and patient fall risk with foot fx. 03/04/2023: continue current meds and tx plan. [facility] referral packet completed by [facility]. 03/03/2023: unable to resume thorazine, offered to try splitting Haldol to TID to see if any improvement in orthostasis. 03/02/2023: The patient was admitted to the [facility] ([facility] unit) on q15 min checks (behavioral with suicide precautions) for safety. The patient will participate in group, recreational, and milieu therapies and will be offered additional individual and family sessions as clinically appropriate. Continue to hold thorazine and monitor BP. Inventory Assets Strengths: taking PO meds, cooperative with tx plan Needs: longer term hospitalization, medical monitoring Suicide Risk Level Suicide Risk Level: Moderate (q15 min suicide checks) (recent SI and bizarre behavior d/t psychosis but denies SI and feels safe in the hospital and agrees to let staff know if he feels unsafe or needs additional support) Risk Factors Assessment Male: Yes : Yes Do You Have Access To A Gun?: No Mental Health Diagnoses: Yes Previous Attempt: Yes Previous Psychiatric Hospitalization: Yes Protective Factors Assessment Employed: No Interval History Identifying Information CASEY DAMIAN is a 52-year-old man who lives in a [facility] residential with a history of schizophrenia, who eloped after returning to his residential and was found by police wandering with concern for dehydration due to hot temperatures/humidity. He is on a 304 commitment as of 03/18/2023. Chief Complaint "Things are OK". Review of Systems Sleep Information Total Hours of Sleep: 7.75 Meal Information Percent Meal Consumed - Breakfast: 100 Percent Meal Consumed - Lunch: 100 Percent Meal Consumed - Dinner: 100 Subjective Subjective The patient was seen and assessed and interval progress reviewed in a multidisciplinary team meeting with the treatment team. For details, see the "Impression" section. Overall I spent a total of 13 minutes for this inpatient follow-up including review of chart records, direct evaluation of the patient [id number], counseli ng the patient, risk assessment, discussion during interdisciplinary treatment rounds, and documentation in the electronic health record. Physical Exam Psychiatric Orientation: alert Apperance: appropriately dressed and + disheveled Eye Contact: + fair eye contact Motor Behavior: no abnormal motor movements Speech: normal rate/rhythm/volume of speech (quiet) Affect: + constricted affect Mood: no depressed mood and no anxious mood Thought Process: + concrete thought process Thought Content: reality based without delusions Suicidal Thoughts: denies suicidal thoughts, denies suicidal plan and denies suicidal intent Homicidal Thoughts: denies homicidal thoughts Hallucinations: + visual hallucinations (intermittent of men in his room); no auditory hallucinations Cognition: recent memory grossly intact, remote memory grossly intact and attention grossly intact Estimated Intelligence: average estimated intelligence Insight: + limited insight Judgment: + limited judgement Vital Signs (Past 24 Hours) Last Vital Signs Temp 36.8 C 03/19/23 06:39 Pulse 86 03/19/23 06:40 Resp 16 03/19/23 06:39 BP 90/63 L 03/19/23 06:40 Pulse Ox 97 03/14/23 21:05 O2 Del Method Room Air 03/14/23 21:05 Results & Data ([facility]) Current Inpatient Medications Current Inpatient Medications: Current Inpatient Medications Acetaminophen (Acetaminophen 325 Mg Tab) 650 mg PO Q4H PRN PRN Reason: Headache or Minor Fever Stop: 03/31/23 17:14 Last Admin: 03/10/23 21:34 Dose: 650 mg Al Hydrox/Mg Hydrox/Simethicone (Aluminum/Magnesium Susp 30 Ml Udc) 30 ml PO Q4H PRN PRN Reason: GI Upset Stop: 03/31/23 17:14 Benztropine Mesylate (Benztropine Mesylate 1 Mg Tab) 1 mg PO HS JOSEMANUEL Stop: 03/31/23 21:59 Last Admin: 03/18/23 20:45 Dose: 1 mg Bismuth Subsalicylate (Bismuth Subsalicylate Liqd 236 Ml) 15 ml PO PRN PRN PRN Reason: Loose Stool Stop: 03/31/23 17:14 Chlorpromazine HCl (Chlorpromazine Hcl 25 Mg Tab) 25 mg PO TID JOSEMANUEL Stop: 04/16/23 14:29 Last Admin: 03/18/23 20:40 Dose: 25 mg Docusate Sodium (Docusate Sodium 100 Mg Cap) 200 mg PO BID JOSEMANUEL Stop: 03/31/23 20:59 Last Admin: 03/18/23 20:47 Dose: Not Given Haloperidol (Haloperidol 5 Mg Tab) 10 mg PO TID JOSEMANUEL Stop: 04/02/23 20:59 Last Admin: 03/18/23 20:41 Dose: 10 mg Hydroxyzine HCl (Hydroxyzine Hcl 25 Mg Tab) 50 mg PO HSZ PRN PRN Reason: Insomnia Stop: 04/09/23 16:37 Hydroxyzine HCl (Hydroxyzine Hcl 25 Mg Tab) 25 mg PO Q4H PRN PRN Reason: Anxiety Stop: 04/09/23 16:37 Magnesium Hydroxide (Magnesium Hydroxide Susp 30 Ml Udc) 30 ml PO DAILY PRN PRN Reason: Constipation Stop: 04/09/23 16:37 Multivitamins/Minerals (Cerovite Adv Formula Tab) 1 tab PO QAM JOSEMANUEL Stop: 04/01/23 08:59 Last Admin: 03/18/23 08:42 Dose: 1 tab Pantoprazole Sodium (Pantoprazole 40 Mg Tab) 40 mg PO QAM JOSEMANUEL Stop: 04/01/23 08:59 Last Admin: 03/18/23 20:39 Dose: 40 mg Sodium Chloride (Sodium Chloride 0.65% Na Soln 45 Ml ([place])) 1 - 2 sprays NA PRN PRN PRN Reason: Nasal Dryness/Congestion Stop: 03/31/23 17:14 Trazodone HCl (Trazodone Hcl 100 Mg Tab) 100 mg PO HS JOSEMANUEL Stop: 04/06/23 21:59 Last Admin: 03/18/23 20:37 Dose: 100 mg Venlafaxine HCl (Venlafaxine Hcl Xr 75 Mg Capxr) [address] [facility] Stop: 04/01/23 08:59 Last Admin: 03/18/23 08:42 Dose: 75 mg Vitamin D (Cholecalciferol 5,000 Units 125 Mcg Tab) 5,000 units PO QAM JOSEMANUEL Stop: 04/01/23 08:59 Last Admin: 03/18/23 08:40 Dose: 5,000 units Mental Health & Subst Abuse Tx Therapist Name of Therapist: Lala
[2023-03-19] MEDS: VENLAFAXINE HCL XR 75 MG CAPXR PO SCH (09:01)
[2023-03-19] MEDS: CEROVITE ADV FORMULA TAB PO SCH (09:01)
[2023-03-19] MEDS: CHOLECALCIFEROL 5,000 UNITS 125 MCG TAB PO SCH (09:01)
[2023-03-19] MEDS: chlorproMAZINE HCL 25 MG TAB PO SCH ×3 (09:01→20:33)
[2023-03-19] MEDS: haloperidoL 5 MG TAB PO SCH ×3 (09:02→20:34)
[2023-03-19] MEDS: BENZTROPINE MESYLATE 1 MG TAB PO SCH (20:34)
[2023-03-19] MEDS: DOCUSATE SODIUM 100 MG CAP PO SCH (20:34)
[2023-03-19] MEDS: traZODone HCL 100 MG TAB PO SCH (20:34)
[2023-03-20] MEDS: CHOLECALCIFEROL 5,000 UNITS 125 MCG TAB PO SCH (08:41)
[2023-03-20] MEDS: chlorproMAZINE HCL 25 MG TAB PO SCH ×3 (08:41→21:23)
[2023-03-20] MEDS: CEROVITE ADV FORMULA TAB PO SCH (08:42)
[2023-03-20] MEDS: VENLAFAXINE HCL XR 75 MG CAPXR PO SCH (08:42)
[2023-03-20] MEDS: PANTOprazole 40 MG TAB PO SCH (08:42)
[2023-03-20] MEDS: haloperidoL 5 MG TAB PO SCH ×3 (08:43→21:24)
[2023-03-20] MEDS: DOCUSATE SODIUM 100 MG CAP PO SCH ×2 (08:59→21:23)
--- NOTE | 2023-03-20 09:43 | Psychiatric Progress Note ---
Date of Service March 20, 2023 Impression / Recommendations Impression Agree with assessment per Dr. Levin: 52 yo man with schizophrenia with multiple recent psychiatric hospitalizations after each has eloped from his nursing home. Spent about 3 days outside of a hospital setting within the last 4 months. He is now on a 303 commitment. note that main indication for inpatient stay at this point is failure of community resources and although patient not openly having much in the way of positive symptoms he has marked negative symptoms that interfere with his ability to care for self outside of the hospital setting and given the unusual nature under which he was injured and inability to be maintained at supervised living ([facility]), inpatient is currently the least restrictive level of care. Now on 304 commitment. MNPR due to psychosis and limited ability to tolerate peers and hx of aggression with delusions 03/20/2023: Reviewed interim progress per Dr. Moralez. Blood pressure stable and he's finding the thorazine helpful. Stll with visual and auditory hallucinations, struggles to reality-test and challenge these delusions at times. Per review of previous orthopedic consultation by Dr. Jackson on 02/16/2023 recommendations of: "Consider repeat x-rays in 6 weeks, if he remains symptomatic. He can wean from the boot as tolerated. Recommend treating this edema with elevation and ice." 6 weeks will be on ~03/30/2023. If pain or swelling persists at that point will get repeat x-ray and involve orthopedics as needed. For now will continue with elevation, ice and ongoing use of the boot. Disposition remains largest challenge given multiple recent failed attempts of returning to his nursing home due to significant increase in delusions, psychosis, and disorganized behavior as soon as he lives the structure of an inpatient setting. Remains on elopement precautions. Overall, I spent a total of 50 minutes with this case including review of chart records, direct evaluation of the patient at bedside, counseling the patient, discussion during interdisciplinary treatment rounds, risk assessment, and documentation in the electronic health record. (1) Schizophrenia: (2) Paranoid: Plan 03/20/2023: * continue haloperidol 10 mg TID - started this schedule 03/03/2023 * continue chlorpromazine 25 mg TID - resumed 03/17/2023 * change cogentin from HS scheduled to HS prn use for muscle stiffness to reduce polypharmacy 03/19/2023: * continue haloperidol 10 mg TID - started this schedule 03/03/2023 * continue chlorpromazine 25 mg TID - resumed 03/17/2023 03/18/2023: * continue haloperidol 10 mg TID - started this schedule 03/03/2023 * continue chlorpromazine 25 mg TID - resumed 03/17/2023 03/18/2023: * continue haloperidol 10 mg TID - started this schedule 03/03/2023 * continue chlorpromazine 25 mg TID - resumed 03/17/2023 * was committed for extended treatment at 304 hearing today, plan to pursue [facility] transfer 03/17/2023: * continue haloperidol 10 mg TID - started this schedule 03/03/2023 * increase chlorpromazine to 25 mg TID * probable 304 hearing on February 03/16/2023: * continue haloperidol 10 mg TID - started this schedule 03/03/2023 * resume chlorpromazine 10 mg BID * probable 304 hearing on February 03/15/2023: * continue haloperidol 10 mg TID - started this schedule 03/03/2023 * at this point I'm no longer considering depot haloperidol * if medication change becomes necessary, would likely resume chlorpromazine * probable 304 hearing on 03/14/2023: * continue haloperidol 10 mg TID - started this schedule 03/03/2023 * at this point I'm no longer considering depot haloperidol * if medication change becomes necessary, would likely resume chlorpromazine * probable 304 hearing on 03/13/2023: * continue haloperidol 10 mg TID - started this schedule 03/03/2023 * consider depot haloperidol if it appears BP sufficiently stable 03/12/2023: Continue current medications and tx plan. 03/11/2023: Continue current medications and tx plan. 03/10/2023: Continue current medications and tx plan. 03/09/2023: Continue current medications and tx plan. 03/08/2023: Continue current medications and tx plan. Consider haldol decanoate later this week. 03/07/2023: Start trazodone 100mg HS po. Continue haldol 10mg TID po 03/06/2023: Continue haldol 10mg TID po 03/05/2023: currently unclear if Haldol TID (30 mg total daily dose) will be adequate, will defer today as orthostasis is still resolving and patient fall risk with foot fx. 03/04/2023: continue current meds and tx plan. [facility] referral packet completed by [facility]. 03/03/2023: unable to resume thorazine, offered to try splitting Haldol to TID to see if any improvement in orthostasis. 03/02/2023: The patient was admitted to the [facility] ([facility] mental health unit) on q15 min checks (behavioral with suicide precautions) for safety. The patient will participate in group, recreational, and milieu therapies and will be offered additional individual and family sessions as clinically appropriate. Continue to hold thorazine and monitor BP. Inventory Assets Strengths: taking PO meds, cooperative with tx plan Needs: longer term hospitalization, medical monitoring Suicide Risk Level Suicide Risk Level: Moderate (q15 min suicide checks) (recent SI and bizarre behavior d/t psychosis but denies SI and feels safe in the hospital and agrees to let staff know if he feels unsafe or needs additional support) Risk Factors Assessment Male: Yes : Yes Do You Have Access To A Gun?: No Mental Health Diagnoses: Yes Previous Attempt: Yes Previous Psychiatric Hospitalization: Yes Protective Factors Assessment Employed: No Interval History Identifying Information CASEY DAMIAN is a 52-year-old man who lives in a [facility] home with a history of schizophrenia, who eloped after returning to his nursing home and was found by police wandering with concern for dehydration due to hot temperatures/humidity. He is on a 304 commitment as of 03/18/2023. Chief Complaint "They tell me they want me out of here, that they'll kill me or throw me off the roof". Review of Systems Sleep Information Total Hours of Sleep: 5 Sleep Comments: up three times throughout the night to use a pen Meal Information Percent Meal Consumed - Breakfast: 100 Percent Meal Consumed - Lunch: 100 Percent Meal Consumed - Dinner: 100 Subjective Subjective Patient was seen & assessed and interval progress reviewed with treatment team nursing and social work. More suspicious of his medications, wanted to decline all of his medications this morning but then agreed with RN encouragement of medication benefits. Reports he is still being bothered by men in [facility] and that they "linger and are annoying". He denies hears voices but later states "I can only assume the voices come from them" referencing these men and reports they say things like "they want me out of here, that they'll kill me or that they'll throw me off the roof". He finds that the thorazine "helps relax me so I'm not bothered by them as much" but denies that it lessens the voices at all. Denies any medication side effects. Physical Exam Psychiatric Orientation: alert Apperance: appropriately dressed and + disheveled Eye Contact: + fair eye contact Motor Behavior: no abnormal motor movements Speech: normal rate/rhythm/volume of speech (quiet) Affect: + constricted affect Mood: + anxious mood; no depressed mood Thought Process: + concrete thought process Thought Content: + delusions Suicidal Thoughts: denies suicidal thoughts, denies suicidal plan and denies suicidal intent Homicidal Thoughts: denies homicidal thoughts Hallucinations: + auditory hallucinations (men threatening him) and + visual hallucinations (intermittent of men in his room) Cognition: recent memory grossly intact, remote memory grossly intact and attention grossly intact Estimated Intelligence: average estimated intelligence Insight: + limited insight Judgment: + limited judgement Vital Signs (Past 24 Hours) Last Vital Signs Temp 36.6 C 03/20/23 06:31 Pulse 81 03/20/23 06:31 Resp 16 03/20/23 06:31 BP 114/74 03/20/23 06:31 Pulse Ox 100 03/20/23 06:31 O2 Del Method Room Air 03/20/23 06:31 Results & Data ([facility]) Current Inpatient Medications Current Inpatient Medications: Current Inpatient Medications Acetaminophen (Acetaminophen 325 Mg Tab) 650 mg PO Q4H PRN PRN Reason: Headache or Minor Fever Stop: 03/31/23 17:14 Last Admin: 03/10/23 21:34 Dose: 650 mg Al Hydrox/Mg Hydrox/Simethicone (Aluminum/Magnesium Susp 30 Ml Udc) 30 ml PO Q4H PRN PRN Reason: GI Upset Stop: 03/31/23 17:14 Benztropine Mesylate (Benztropine Mesylate 1 Mg Tab) 1 mg PO HS JOSEMANUEL Stop: 03/31/23 21:59 Last Admin: 03/19/23 20:34 Dose: 1 mg Bismuth Subsalicylate (Bismuth Subsalicylate Liqd 236 Ml) 15 ml PO PRN PRN PRN Reason: Loose Stool Stop: 03/31/23 17:14 Chlorpromazine HCl (Chlorpromazine Hcl 25 Mg Tab) 25 mg PO TID JOSEMANUEL Stop: 04/16/23 14:29 Last Admin: 03/20/23 08:41 Dose: 25 mg Docusate Sodium (Docusate Sodium 100 Mg Cap) 200 mg PO BID JOSEMANUEL Stop: 03/31/23 20:59 Last Admin: 03/20/23 08:59 Dose: Not Given Haloperidol (Haloperidol 5 Mg Tab) 10 mg PO TID JOSEMANUEL Stop: 04/02/23 20:59 Last Admin: 03/20/23 08:43 Dose: 10 mg Hydroxyzine HCl (Hydroxyzine Hcl 25 Mg Tab) 50 mg PO HSZ PRN PRN Reason: Insomnia Stop: 04/09/23 16:37 Hydroxyzine HCl (Hydroxyzine Hcl 25 Mg Tab) 25 mg PO Q4H PRN PRN Reason: Anxiety Stop: 04/09/23 16:37 Magnesium Hydroxide (Magnesium Hydroxide Susp 30 Ml Udc) 30 ml PO DAILY PRN PRN Reason: Constipation Stop: 04/09/23 16:37 Multivitamins/Minerals (Cerovite Adv Formula Tab) 1 tab PO QAM JOSEMANUEL Stop: 04/01/23 08:59 Last Admin: 03/20/23 08:42 Dose: 1 tab Pantoprazole Sodium (Pantoprazole 40 Mg Tab) 40 mg PO QAM JOSEMANUEL Stop: 04/01/23 08:59 Last Admin: 03/20/23 08:42 Dose: 40 mg Sodium Chloride (Sodium Chloride 0.65% Na Soln 45 Ml ([place])) 1 - 2 sprays NA PRN PRN PRN Reason: Nasal Dryness/Congestion Stop: 03/31/23 17:14 Trazodone HCl (Trazodone Hcl 100 Mg Tab) 100 mg PO HS JOSEMANUEL Stop: 04/06/23 21:59 Last Admin: 03/19/23 20:34 Dose: 100 mg Venlafaxine HCl (Venlafaxine Hcl Xr 75 Mg Capxr) 75 mg PO QAM JOSEMANUEL Stop: 04/01/23 08:59 Last Admin: 03/20/23 08:42 Dose: 75 mg Vitamin D (Cholecalciferol 5,000 Units 125 Mcg Tab) 5,000 units PO [place] Stop: 04/01/23 08:59 Last Admin: 03/20/23 08:41 Dose: 5,000 units Mental Health & Subst Abuse Tx Therapist Name of Therapist: Lala
[2023-03-20] MEDS: ACETAMINOPHEN 325 MG TAB PO PRN (14:02)
[2023-03-20] MEDS ORDERED: BENZTROPINE MESYLATE 1 MG TAB PO PRN (17:04)
[2023-03-20] MEDS: traZODone HCL 100 MG TAB PO SCH (21:23)
[2023-03-21] MEDS: VENLAFAXINE HCL XR 75 MG CAPXR PO SCH (08:59)
[2023-03-21] MEDS: CHOLECALCIFEROL 5,000 UNITS 125 MCG TAB PO SCH (08:59)
[2023-03-21] MEDS: PANTOprazole 40 MG TAB PO SCH (09:00)
[2023-03-21] MEDS: chlorproMAZINE HCL 25 MG TAB PO SCH ×2 (09:00→21:28)
[2023-03-21] MEDS: haloperidoL 5 MG TAB PO SCH ×3 (09:00→21:28)
[2023-03-21] MEDS: CEROVITE ADV FORMULA TAB PO SCH (09:00)
[2023-03-21] MEDS: DOCUSATE SODIUM 100 MG CAP PO SCH ×2 (09:04→21:28)
--- NOTE | 2023-03-21 10:06 | Psychiatric Progress Note ---
Date of Service March 21, 2023 Impression / Recommendations Impression Agree with assessment per Dr. Levin: 52 yo man with schizophrenia with multiple recent psychiatric hospitalizations after [facility]. Spent about 3 days outside of a hospital setting within the last 4 months. He is now on a 303 commitment. note that main indication for inpatient stay at this point is failure of community resources and although patient not openly having much in the way of positive symptoms he has marked negative symptoms that interfere with his ability to care for self outside of the hospital setting and given the unusual nature under which he was injured and inability to be maintained at supervised living ([facility]), inpatient is currently the least restrictive level of care. Now on 304 commitment. MNPR due to psychosis and limited ability to tolerate peers and hx of aggression with delusions 03/21/2023: Ongoing delusions and paranoia related to acute exacerbation of psychosis from schizophrenia which seems to be causing him to second guess his medications but for now still agreeable with taking them. Will consolidate thorazine at bedtime in effort to help with sleep overnight. Foot pain and swelling is improving. Per review of previous orthopedic consultation by Dr. Jackson on 02/16/2023 recommendations of: "Consider repeat x-rays in 6 weeks, if he remains sympt omatic. He can wean from the boot as tolerated. Recommend treating this edema with elevation and ice." 6 weeks will be on ~03/30/2023. If pain or swelling persists at that point will get repeat x-ray and involve orthopedics as needed. For now will continue with elevation, ice and ongoing use of the boot. Disposition remains largest challenge given multiple recent failed attempts of returning to his [facility]itentiary due to significant increase in delusions, psychosis, and disorganized behavior as soon as he lives the structure of an inpatient setting. Remains on elopement precautions. Overall, I spent a total of 25 minutes with this case including review of chart records, direct evaluation of the patient at bedside, counseling the patient, discussion during interdisciplinary treatment rounds, risk assessment, and documentation in the electronic health record. (1) Schizophrenia: (2) Paranoid: Plan 03/21/2023: * continue haloperidol 10 mg TID - started this schedule 03/03/2023 * consolidate chlorpromazine to 25mg qAM and 50mg HS 03/20/2023: * continue haloperidol 10 mg TID - started this schedule 03/03/2023 * continue chlorpromazine 25 mg TID - resumed 03/17/2023 * change cogentin from HS scheduled to HS prn use for muscle stiffness to reduce polypharmacy 03/19/2023: * continue haloperidol 10 mg TID - started this schedule 03/03/2023 * continue chlorpromazine 25 mg TID - resumed 03/17/2023 03/18/2023: * continue haloperidol 10 mg TID - started this schedule 03/03/2023 * continue chlorpromazine 25 mg TID - resumed 03/17/2023 03/18/2023: * continue haloperidol 10 mg TID - started this schedule 03/03/2023 * continue chlorpromazine 25 mg TID - resumed 03/17/2023 * was committed for extended treatment at 304 hearing today, plan to pursue [facility] transfer 03/17/2023: * continue haloperidol 10 mg TID - started this schedule 03/03/2023 * increase chlorpromazine to 25 mg TID * probable 304 hearing on February 03/16/2023: * continue haloperidol 10 mg TID - started this schedule 03/03/2023 * resume chlorpromazine 10 mg BID * probable 304 hearing on February 03/15/2023: * continue haloperidol 10 mg TID - started this schedule 03/03/2023 * at this point I'm no longer considering depot haloperidol * if medication change becomes necessary, would likely resume chlorpromazine * probable 304 hearing on 03/14/2023: * continue haloperidol 10 mg TID - started this schedule 03/03/2023 * at this point I'm no longer considering depot haloperidol * if medication change becomes necessary, would likely resume chlorpromazine * probable 304 hearing on 03/13/2023: * continue haloperidol 10 mg TID - started this schedule 03/03/2023 * consider depot haloperidol if it appears BP sufficiently stable 03/12/2023: Continue current medications and tx plan. 03/11/2023: Continue current medications and tx plan. 03/10/2023: Continue current medications and tx plan. 03/09/2023: Continue current medications and tx plan. 03/08/2023: Continue current medications and tx plan. Consider haldol decanoate later this week. 03/07/2023: Start trazodone 100mg HS po. Continue haldol 10mg TID po 03/06/2023: Continue haldol 10mg TID po 03/05/2023: currently unclear if Haldol TID (30 mg total daily dose) will be adequate, will defer today as orthostasis is still resolving and patient fall risk with foot fx. 03/04/2023: continue current meds and tx plan. [facility] referral packet completed by [facility]. 03/03/2023: unable to resume thorazine, offered to try splitting Haldol to TID to see if any improvement in orthostasis. 03/02/2023: The patient was admitted to the [facility] ([facility]) on q15 min checks (behavioral with suicide precautions) for safety. The patient will participate in group, recreational, and milieu therapies and will be offered additional individual and family sessions as clinically appropriate. Continue to hold thorazine and monitor BP. Inventory Assets Strengths: taking PO meds, cooperative with tx plan Needs: longer term hospitalization, medical monitoring Suicide Risk Level Suicide Risk Level: Moderate (q15 min suicide checks) (recent SI and bizarre behavior d/t psychosis but denies SI and feels safe in the hospital and agrees to let staff know if he feels unsafe or needs additional support) Risk Factors Assessment Male: Yes : Yes Do You Have Access To A Gun?: No Mental Health Diagnoses: Yes Previous Attempt: Yes Previous Psychiatric Hospitalization: Yes Protective Factors Assessment Employed: No Interval History Identifying Information CASEY DAMIAN is a 52-year-old man who lives in a [facility] with a history of schizophrenia, who eloped after returning to his penitentiary and was found by police wandering with concern for dehydration due to hot temperatures/humidity. He is on a 304 commitment as of 03/18/2023. Chief Complaint "What if I didn't want to take my medications?". Review of Systems Sleep Information Total Hours of Sleep: 4.75 Sleep Comments: Meal Information Percent Meal Consumed - Breakfast: 100 Percent Meal Consumed - Lunch: 100 Percent Meal Consumed - Dinner: 100 Subjective Subjective Patient was seen & assessed and interval progress reviewed with treatment team nursing and social work. Last evening thought he had drawings in his closet with the bath supplies but reassured when RN showed him they were not. He was up in the middle of the night and subhash in the day room but then went back to bed. Did well with accepting his medications this morning only declining colace. When seen mid-day reports his mood is "ok" and pleased that he shaved and had his hair trimmed but then wonders about not taking his medications. States he worries the medications are "making me too relaxed" and that this could cause "false confidence" and interfere with "how they communicate with me". Still hearing and seeing women and men in trenchcoats, thinks he may be a bad person due to his "mind is bad". Denies any foot pain today reports this is "getting good". Physical Exam Psychiatric Orientation: alert, oriented to person and oriented to place Apperance: appropriately dressed and appropriately groomed Eye Contact: + fair eye contact Motor Behavior: no abnormal motor movements Speech: normal rate/rhythm/volume of speech (quiet) Affect: + constricted affect Mood: + depressed mood and + anxious mood Thought Process: + concrete thought process Thought Content: + paranoid, + delusions and + thought broadcasting Suicidal Thoughts: denies suicidal thoughts, denies suicidal plan and denies suicidal intent Homicidal Thoughts: denies homicidal thoughts Hallucinations: + auditory hallucinations (men threatening him) and + visual hallucinations (intermittent of people in trenchcoats in his room) Cognition: recent memory grossly intact, remote memory grossly intact and attention grossly intact Estimated Intelligence: average estimated intelligence Insight: + limited insight Judgment: + limited judgement Vital Signs (Past 24 Hours) Last Vital Signs Temp 36.6 C 03/21/23 06:36 Pulse 78 03/21/23 06:36 Resp 18 03/21/23 06:36 BP 111/71 03/21/23 06:36 Pulse Ox 97 03/21/23 06:36 O2 Del Method Room Air 03/21/23 06:36 Results & Data ([facility]) Current Inpatient Medications Current Inpatient Medications: Current Inpatient Medications Acetaminophen (Acetaminophen 325 Mg Tab) 650 mg PO Q4H PRN PRN Reason: Headache or Minor Fever Stop: 03/31/23 17:14 Last Admin: 03/20/23 14:02 Dose: 650 mg Al Hydrox/Mg Hydrox/Simethicone (Aluminum/Magnesium Susp 30 Ml Udc) 30 ml PO Q4H PRN PRN Reason: GI Upset Stop: 03/31/23 17:14 Benztropine Mesylate (Benztropine Mesylate 1 Mg Tab) 1 mg PO HS PRN PRN Reason: muscle stiffness Stop: 03/31/23 21:59 Bismuth Subsalicylate (Bismuth Subsalicylate Liqd 236 Ml) 15 ml PO PRN PRN PRN Reason: Loose Stool Stop: 03/31/23 17:14 Chlorpromazine HCl (Chlorpromazine Hcl 25 Mg Tab) 25 mg PO TID [facility] Stop: 04/16/23 14:29 Last Admin: 03/21/23 09:00 Dose: 25 mg Docusate Sodium (Docusate Sodium 100 Mg Cap) 200 mg PO BID JOSEMANUEL Stop: 03/31/23 20:59 Last Admin: 03/21/23 09:04 Dose: Not Given Haloperidol (Haloperidol 5 Mg Tab) 10 mg PO TID JOSEMANUEL Stop: 04/02/23 20:59 Last Admin: 03/21/23 09:00 Dose: 10 mg Hydroxyzine HCl (Hydroxyzine Hcl 25 Mg Tab) 50 mg PO HSZ PRN PRN Reason: Insomnia Stop: 04/09/23 16:37 Hydroxyzine HCl (Hydroxyzine Hcl 25 Mg Tab) 25 mg PO Q4H PRN PRN Reason: Anxiety Stop: 04/09/23 16:37 Magnesium Hydroxide (Magnesium Hydroxide Susp 30 Ml Udc) 30 ml PO DAILY PRN PRN Reason: Constipation Stop: 04/09/23 16:37 Multivitamins/Minerals (Cerovite Adv Formula Tab) 1 tab PO QAM JOSEMANUEL Stop: 04/01/23 08:59 Last Admin: 03/21/23 09:00 Dose: 1 tab Pantoprazole Sodium (Pantoprazole 40 Mg Tab) 40 mg PO QAM JOSEMANUEL Stop: 04/01/23 08:59 Last Admin: 03/21/23 09:00 Dose: 40 mg Sodium Chloride (Sodium Chloride 0.65% Na Soln 45 Ml ([place])) 1 - 2 sprays NA PRN PRN PRN Reason: Nasal Dryness/Congestion Stop: 03/31/23 17:14 Trazodone HCl (Trazodone Hcl 100 Mg Tab) 100 mg PO HS JOSEMANUEL Stop: 04/06/23 21:59 Last Admin: 03/20/23 21:23 Dose: 100 mg Venlafaxine HCl (Venlafaxine Hcl Xr 75 Mg Capxr) 75 mg PO QAM JOSEMANUEL Stop: 04/01/23 08:59 Last Admin: 03/21/23 08:59 Dose: 75 mg Vitamin D (Cholecalciferol 5,000 Units 125 Mcg Tab) 5,000 units PO QAM JOSEMANUEL Stop: 04/01/23 08:59 Last Admin: 03/21/23 08:59 Dose: 5,000 units Mental Health & Subst Abuse Tx Therapist Name of Therapist: Lala
[2023-03-21] MEDS: traZODone HCL 100 MG TAB PO SCH (21:28)
[2023-03-22] MEDS: chlorproMAZINE HCL 25 MG TAB PO SCH ×3 (09:21→20:55)
[2023-03-22] MEDS: CEROVITE ADV FORMULA TAB PO SCH (09:22)
[2023-03-22] MEDS: CHOLECALCIFEROL 5,000 UNITS 125 MCG TAB PO SCH (09:22)
[2023-03-22] MEDS: PANTOprazole 40 MG TAB PO SCH (09:22)
[2023-03-22] MEDS: VENLAFAXINE HCL XR 75 MG CAPXR PO SCH (09:22)
[2023-03-22] MEDS: haloperidoL 5 MG TAB PO SCH ×3 (09:24→20:49)
--- NOTE | 2023-03-22 09:28 | Psychiatric Progress Note ---
Date of Service March 22, 2023 Impression / Recommendations Impression Agree with assessment per Dr. Levin: 52 yo man with schizophrenia with multiple recent psychiatric hospitalizations after each has eloped from his detention. Spent about 3 days outside of a hospital setting within the last 4 months. He is now on a 303 commitment. note that main indication for inpatient stay at this point is failure of community resources and although patient not openly having much in the way of positive symptoms he has marked negative symptoms that interfere with his ability to care for self outside of the hospital setting and given the unusual nature under which he was injured and inability to be maintained at supervised living ([facility]), inpatient is currently the least restrictive level of care. Now on 304 commitment. MNPR due to psychosis and limited ability to tolerate peers and hx of aggression with delusions 03/22/2023: Some lessening of delusions and paranoia today, better able to participate in some reality-based discussions. Slept better last night which seems to help with thought organization and less distress from voices. He consents to dose increase of haldol in effort to further target visual and auditory hallucinations. Haldol dose continues to exceed FDA recommendation but he previously showed significant benefit from high doses and is tolerating current high dose without any side effects and desires goal of further lessening VH and AH for improved quality of life and functioning. Per review of previous orthopedic consultation by Dr. Jackson on 02/16/2023 recommendations of: "Consider repeat x-rays in 6 weeks, if he remains symptomatic. He can wean from the boot as tolerated. Recommend treating this edema with elevation and ice." 6 weeks will be on ~03/30/2023. If pain or swelling persists at that point will get repeat x-ray and involve orthopedics as needed. For now will continue with elevation, ice and ongoing use of the boot. Disposition remains largest challenge given multiple recent failed attempts of returning to his detention due to significant increase in delusions, psychosis, and disorganized behavior as soon as he lives the structure of an inpatient setting. Remains on elopement precautions. Overall, I spent a total of 25 minutes with this case including review of chart records, direct evaluation of the patient at bedside, counseling the patient, discussion during interdisciplinary treatment rounds, risk assessment, and documentation in the electronic health record. (1) Schizophrenia: (2) Paranoid: Plan 03/22/2023: * increase haloperidol to 10 mg qAM, 20mg midday and 10mg HS- started this schedule 03/22/2023 * consolidate chlorpromazine to 25mg qAM and 50mg HS 03/21/2023: * continue haloperidol 10 mg TID - started this schedule 03/03/2023 * consolidate chlorpromazine to 25mg qAM and 50mg HS 03/20/2023: * continue haloperidol 10 mg TID - started this schedule 03/03/2023 * continue chlorpromazine 25 mg TID - resumed 03/17/2023 * change cogentin from HS scheduled to HS prn use for muscle stiffness to reduce polypharmacy 03/19/2023: * continue haloperidol 10 mg TID - started this schedule 03/03/2023 * continue chlorpromazine 25 mg TID - resumed 03/17/2023 03/18/2023: * continue haloperidol 10 mg TID - started this schedule 03/03/2023 * continue chlorpromazine 25 mg TID - resumed 03/17/2023 03/18/2023: * continue haloperidol 10 mg TID - started this schedule 03/03/2023 * continue chlorpromazine 25 mg TID - resumed 03/17/2023 * was committed for extended treatment at 304 hearing today, plan to pursue [facility] transfer 03/17/2023: * continue haloperidol 10 mg TID - started this schedule 03/03/2023 * increase chlorpromazine to 25 mg TID * probable 304 hearing on February 03/16/2023: * continue haloperidol 10 mg TID - started this schedule 03/03/2023 * resume chlorpromazine 10 mg BID * probable 304 hearing on February 03/15/2023: * continue haloperidol 10 mg TID - started this schedule 03/03/2023 * at this point I'm no longer considering depot haloperidol * if medication change becomes necessary, would likely resume chlorpromazine * probable 304 hearing on 03/14/2023: * continue haloperidol 10 mg TID - started this schedule 03/03/2023 * at this point I'm no longer considering depot haloperidol * if medication change becomes necessary, would likely resume chlorpromazine * probable 304 hearing on 03/13/2023: * continue haloperidol 10 mg TID - started this schedule 03/03/2023 * consider depot haloperidol if it appears BP sufficiently stable 03/12/2023: Continue current medications and tx plan. 03/11/2023: Continue current medications and tx plan. 03/10/2023: Continue current medications and tx plan. 03/09/2023: Continue current medications and tx plan. 03/08/2023: Continue current medications and tx plan. Consider haldol decanoate later this week. 03/07/2023: Start trazodone 100mg HS po. Continue haldol 10mg TID po 03/06/2023: Continue haldol 10mg TID po 03/05/2023: currently unclear if Haldol TID (30 mg total daily dose) will be a dequate, will defer today as orthostasis is still resolving and patient fall risk with foot fx. 03/04/2023: continue current meds and tx plan. [facility] referral packet completed by DEEPA. 03/03/2023: unable to resume thorazine, offered to try splitting Haldol to TID to see if any improvement in orthostasis. 03/02/2023: The patient was admitted to the [facility] ([facility] mental health unit) on q15 min checks (behavioral with suicide precautions) for safety. The patient will participate in group, recreational, and milieu therapies and will be offered additional individual and family sessions as clinically appropriate. Continue to hold thorazine and monitor BP. Inventory Assets Strengths: taking PO meds, cooperative with tx plan Needs: longer term hospitalization, medical monitoring Suicide Risk Level Suicide Risk Level: Moderate (q15 min suicide checks) (recent SI and bizarre behavior d/t psychosis but denies SI and feels safe in the hospital and agrees to let staff know if he feels unsafe or needs additional support) Risk Factors Assessment Male: Yes : Yes Do You Have Access To A Gun?: No Mental Health Diagnoses: Yes Previous Attempt: Yes Previous Psychiatric Hospitalization: Yes Protective Factors Assessment Employed: No Interval History Identifying Information CASEY DAMIAN is a 52-year-old man who lives in a [facility] psychiatric detention with a history of schizophrenia, who eloped after returning to his detention and was found by police wandering with concern for dehydration due to hot temperatures/humidity. He is on a 304 commitment as of 03/18/2023. Chief Complaint "I'm doing better, trying to get a handle on things". Review of Systems Sleep Information Total Hours of Sleep: 6.75 Meal Information Percent Meal Consumed - Breakfast: 0 Percent Meal Consumed - Lunch: 100 Percent Meal Consumed - Dinner: 100 Subjective Subjective Patient was seen & assessed and interval progress reviewed with treatment team nursing and social work. Went to some groups last night, did express concerns about "sabotaging" himself by not taking medication. Today more insightful in groups regarding the benefits of his medications and supportive of a peer. This afternoon reports improved mood. Feels he slept better with consolidated dose of thorazine. Finding medication helpful for lessening the voices. Still seeing the people in trench coats " a few times today". Physical Exam Psychiatric Orientation: alert, oriented to person and oriented to place Apperance: appropriately dressed and appropriately groomed Eye Contact: + fair eye contact Motor Behavior: no abnormal motor movements Speech: normal rate/rhythm/volume of speech (quiet) Affect: + constricted affect (but with more smiles today) Mood: + anxious mood; no depressed mood Thought Process: clear/coherent thought process and + concrete thought process Thought Content: reality based without delusions Suicidal Thoughts: denies suicidal thoughts, denies suicidal plan and denies suicidal intent Homicidal Thoughts: denies homicidal thoughts Hallucinations: + auditory hallucinations (men threatening him) and + visual hallucinations (intermittent of people in trenchcoats in his room) Cognition: recent memory grossly intact, remote memory grossly intact and attention grossly intact Estimated Intelligence: average estimated intelligence Insight: + limited insight Judgment: + limited judgement Vital Signs (Past 24 Hours) Last Vital Signs Temp 36.7 C 03/22/23 06:45 Pulse 71 03/22/23 06:46 Resp 18 03/22/23 06:45 BP 96/64 L 03/22/23 06:46 Pulse Ox 97 03/21/23 06:36 O2 Del Method Room Air 03/21/23 06:36 Results & Data (U) Current Inpatient Medications Current Inpatient Medications: Current Inpatient Medications Acetaminophen (Acetaminophen 325 Mg Tab) 650 mg PO Q4H PRN PRN Reason: Headache or Minor Fever Stop: 03/31/23 17:14 Last Admin: 03/20/23 14:02 Dose: 650 mg Al Hydrox/Mg Hydrox/Simethicone (Aluminum/Magnesium Susp 30 Ml Udc) 30 ml PO Q4H PRN PRN Reason: GI Upset Stop: 03/31/23 17:14 Benztropine Mesylate (Benztropine Mesylate 1 Mg Tab) 1 mg PO HS PRN PRN Reason: muscle stiffness Stop: 03/31/23 21:59 Bismuth Subsalicylate (Bismuth Subsalicylate Liqd 236 Ml) 15 ml PO PRN PRN PRN Reason: Loose Stool Stop: 03/31/23 17:14 Chlorpromazine HCl (Chlorpromazine Hcl 25 Mg Tab) 25 mg PO QD@08 [facility] Stop: 04/21/23 07:59 Chlorpromazine HCl (Chlorpromazine Hcl 25 Mg Tab) 50 mg PO HS [facility] Stop: 04/20/23 21:59 Last Admin: 03/21/23 21:28 Dose: 50 mg Docusate Sodium (Docusate Sodium 100 Mg Cap) 200 mg PO BID [facility] Stop: 03/31/23 20:59 Last Admin: 03/21/23 21:28 Dose: 200 mg Haloperidol (Haloperidol 5 Mg Tab) 10 mg PO TID [facility] Stop: 04/02/23 20:59 Last Admin: 03/21/23 21:28 Dose: 10 mg Hydroxyzine HCl (Hydroxyzine Hcl 25 Mg Tab) 50 mg PO HSZ PRN PRN Reason: Insomnia Stop: 04/09/23 16:37 Hydroxyzine HCl (Hydroxyzine Hcl 25 Mg Tab) 25 mg PO Q4H PRN PRN Reason: Anxiety Stop: 04/09/23 16:37 Magnesium Hydroxide (Magnesium Hydroxide Susp 30 Ml Udc) 30 ml PO DAILY PRN PRN Reason: Constipation Stop: 04/09/23 16:37 Multivitamins/Minerals (Cerovite Adv Formula Tab) 1 tab PO QAM [facility] Stop: 04/01/23 08:59 Last Admin: 03/21/23 09:00 Dose: 1 tab Pantoprazole Sodium (Pantoprazole 40 Mg Tab) 40 mg PO QAM [facility] Stop: 04/01/23 08:59 Last Admin: 03/21/23 09:00 Dose: 40 mg Sodium Chloride (Sodium Chloride 0.65% Na Soln 45 Ml ([place])) 1 - 2 sprays NA PRN PRN PRN Reason: Nasal Dryness/Congestion Stop: 03/31/23 17:14 Trazodone HCl (Trazodone Hcl 100 Mg Tab) 100 mg PO HS [facility] Stop: 04/06/23 21:59 Last Admin: 03/21/23 21:28 Dose: 100 mg Venlafaxine HCl (Venlafaxine Hcl Xr 75 Mg Capxr) 75 mg PO QAM [facility] Stop: 04/01/23 08:59 Last Admin: 03/21/23 08:59 Dose: 75 mg Vitamin D (Cholecalciferol 5,000 Units 125 Mcg Tab) 5,000 units PO QAM [facility] Stop: 04/01/23 08:59 Last Admin: 03/21/23 08:59 Dose: 5,000 units Mental Health & Subst Abuse Tx Therapist Name of Therapist: Lala
[2023-03-22] MEDS: DOCUSATE SODIUM 100 MG CAP PO SCH ×3 (09:30→21:00)
[2023-03-22] MEDS: traZODone HCL 100 MG TAB PO SCH (20:51)
[2023-03-23] MEDS: CEROVITE ADV FORMULA TAB PO SCH (08:51)
[2023-03-23] MEDS: PANTOprazole 40 MG TAB PO SCH (08:52)
[2023-03-23] MEDS: haloperidoL 5 MG TAB PO SCH ×3 (08:52→20:38)
[2023-03-23] MEDS: CHOLECALCIFEROL 5,000 UNITS 125 MCG TAB PO SCH (08:52)
[2023-03-23] MEDS: VENLAFAXINE HCL XR 75 MG CAPXR PO SCH (08:53)
[2023-03-23] MEDS: DOCUSATE SODIUM 100 MG CAP PO SCH ×2 (08:53→20:38)
--- NOTE | 2023-03-23 09:38 | Psychiatric Progress Note ---
Date of Service March 23, 2023 Impression / Recommendations Impression Agree with assessment per Dr. Levin: 52 yo man with schizophrenia with multiple recent psychiatric hospitalizations after each has eloped from his fdc. Spent about 3 days outside of a hospital setting within the last 4 months. He is now on a 303 commitment. note that main indication for inpatient stay at this point is failure of community resources and although patient not openly having much in the way of positive symptoms he has marked negative symptoms that interfere with his ability to care for self outside of the hospital setting and given the unusual nature under which he was injured and inability to be maintained at supervised living ([facility]), inpatient is currently the least restrictive level of care. Now on 304 commitment. MNPR due to psychosis and limited ability to tolerate peers and hx of aggression with delusions 03/23/2023: Participating more in groups but still bothered by voices threatening him. Met with Alta from [facility] who has known him for the last 2 years to review prior obstacles to discharge, she noted some positive signs of his group attendance, drawing again (the voices typically tell him they don't like his artwork so he won't engage in this when he is feeling worse), and improved self hygiene but also notes he told her he's continued to have a lot of bothersome voices. Transitional home offers very limited support as he has to do his own grocery shopping, cooking and can leave anytime he wants. In past he also told staff where he was going and told them when he was struggling with voices but since worsening in October he has continued to struggle on repeated attempts to have him return to transitional home and seemed each time to quickly elope due to paranoia and delusions about being targeted by people wanting to kill him. Per review of previous orthopedic consultation by Dr. Jackson on 02/16/2023 recommendations of: "Consider repeat x-rays in 6 weeks, if he remains symptomatic. He can wean from the boot as tolerated. Recommend treating this edema with elevation and ice." 6 weeks will be on ~03/30/2023. If pain or swelling persists at that point will get repeat x-ray and involve orthopedics as needed. For now will continue with elevation, ice and ongoing use of the boot. Disposition remains largest challenge given multiple recent failed attempts of returning to his fdc due to significant increase in delusions, psychosis, and disorganized behavior as soon as he lives the structure of an inpatient setting. Remains on elopement precautions. Overall, I spent a total of 65 minutes with this case including review of chart records, direct evaluation of the patient at bedside, counseling the patient, discussion during interdisciplinary treatment rounds, risk assessment, and documentation in the electronic health record and meeting with his [facility] support . (1) Schizophrenia: (2) Paranoid: Plan 03/23/2023: Continue current medications and tx plan. 03/22/2023: * increase haloperidol to 10 mg qAM, 20mg midday and 10mg HS- started this schedule 03/22/2023 * consolidate chlorpromazine to 25mg qAM and 50mg HS 03/21/2023: * continue haloperidol 10 mg TID - started this schedule 03/03/2023 * consolidate chlorpromazine to 25mg qAM and 50mg HS 03/20/2023: * continue haloperidol 10 mg TID - started this schedule 03/03/2023 * continue chlorpromazine 25 mg TID - resumed 03/17/2023 * change cogentin from HS scheduled to HS prn use for muscle stiffness to reduce polypharmacy 03/19/2023: * continue haloperidol 10 mg TID - started this schedule 03/03/2023 * continue chlorpromazine 25 mg TID - resumed 03/17/2023 03/18/2023: * continue haloperidol 10 mg TID - started this schedule 03/03/2023 * continue chlorpromazine 25 mg TID - resumed 03/17/2023 03/18/2023: * continue haloperidol 10 mg TID - started this schedule 03/03/2023 * continue chlorpromazine 25 mg TID - resumed 03/17/2023 * was committed for extended treatment at 304 hearing today[facility] 03/17/2023: * continue haloperidol 10 mg TID - started this schedule 03/03/2023 * increase chlorpromazine to 25 mg TID * probable 304 hearing on February 03/16/2023: * continue haloperidol 10 mg TID - started this schedule 03/03/2023 * resume chlorpromazine 10 mg BID * probable 304 hearing on February 03/15/2023: * continue haloperidol 10 mg TID - started this schedule 03/03/2023 * at this point I'm no longer considering depot haloperidol * if medication change becomes necessary, would likely resume chlorpromazine * probable 304 hearing on 03/14/2023: * continue haloperidol 10 mg TID - started this schedule 03/03/2023 * at this point I'm no longer considering depot haloperidol * if medication change becomes necessary, would likely resume chlorpromazine * probable 304 hearing on 03/13/2023: * continue haloperidol 10 mg TID - started this schedule 03/03/2023 * consider depot haloperidol if it appears BP sufficiently stable 03/12/2023: Continue current medications and tx plan. 03/11/2023: Continue current medications and tx plan. 03/10/2023: Continue current medications and tx plan. 03/09/2023: Continue current medications and tx plan. 03/08/2023: Continue current medications and tx plan. Consider haldol decanoate later this week. 03/07/2023: Start trazodone 100mg HS po. Continue haldol 10mg TID po 03/06/2023: Continue haldol 10mg TID po 03/05/2023: currently unclear if Haldol TID (30 mg total daily dose) will be adequate, will defer today as orthostasis is still resolving and patient fall risk with foot fx. 03/04/2023: continue current meds and tx plan. [facility] referral packet completed by DEEPA. 03/03/2023: unable to resume thorazine, offered to try splitting Haldol to TID to see if any improvement in orthostasis. 03/02/2023: The patient was [facility] inpatient mental health unit) on q15 min checks (behavioral with suicide precautions) for safety. The patient will participate in group, recreational, and milieu therapies and will be offered additional individual and family sessions as clinically appropriate. Continue to hold thorazine and monitor BP. Inventory Assets Strengths: taking PO meds, cooperative with tx plan Needs: longer term hospitalization, medical monitoring Suicide Risk Level Suicide Risk Level: Moderate (q15 min suicide checks) (recent SI and bizarre behavior d/t psychosis but denies SI and feels safe in the hospital and agrees to let staff know if he feels unsafe or needs additional support) Risk Factors Assessment Male: Yes : Yes Do You Have Access To A Gun?: No Mental Health Diagnoses: Yes Previous Attempt: Yes Previous Psychiatric Hospitalization: Yes Protective Factors Assessment Employed: No Interval History Identifying Information CASEY DAMIAN is a 52-year-old man who lives in a [facility] fdc with a history of schizophrenia, who eloped after returning to his fdc and was found by police wandering with concern for dehydration due to hot temperatures/humidity. He is on a 304 commitment as of 03/18/2023. Chief Complaint "They still want to kill me". Review of Systems Sleep Information Total Hours of Sleep: 7 Meal Information Percent Meal Consumed - Breakfast: 0 Percent Meal Consumed - Lunch: 100 Percent Meal Consumed - Dinner: 100 Subjective Subjective Patient was seen & assessed and interval progress reviewed with treatment team nursing and social work.He endorses ongoing voices saying they want to kill him. Increased dose of haldol hasn't lessened the voices yet. He's been "trying to go to groups" and pleased about this and today has been reading the [employer] handbook. Physical Exam Psychiatric Orientation: alert, oriented to person and oriented to place Apperance: appropriately dressed and appropriately groomed Eye Contact: + fair eye contact Motor Behavior: no abnormal motor movements Speech: normal rate/rhythm/volume of speech (quiet) Affect: + constricted affect Mood: + anxious mood; no depressed mood Thought Process: clear/coherent thought process and + concrete thought process Thought Content: + paranoid Suicidal Thoughts: denies suicidal thoughts, denies suicidal plan and denies suicidal intent Homicidal Thoughts: denies homicidal thoughts Hallucinations: + auditory hallucinations (men threatening him) and + visual hallucinations (intermittent of people in trenchcoats in his room) Cognition: recent memory grossly intact, remote memory grossly intact and attention grossly intact Estimated Intelligence: average estimated intelligence Insight: + limited insight Judgment: + limited judgement Vital Signs (Past 24 Hours) Last Vital Signs Temp 36.6 C 03/23/23 06:38 Pulse 78 03/23/23 06:39 Resp 16 03/23/23 06:38 BP 89/56 L 03/23/23 06:39 Pulse Ox 97 03/21/23 06:36 O2 Del Method Room Air 03/21/23 06:36 Results & Data ([facility]) Current Inpatient Medications Current Inpatient Medications: Current Inpatient Medications Acetaminophen (Acetaminophen 325 Mg Tab) 650 mg PO Q4H PRN PRN Reason: Headache or Minor Fever Stop: 03/31/23 17:14 Last Admin: 03/20/23 14:02 Dose: 650 mg Al Hydrox/Mg Hydrox/Simethicone (Aluminum/Magnesium Susp 30 Ml Udc) 30 ml PO Q4H PRN PRN Reason: GI Upset Stop: 03/31/23 17:14 Benztropine Mesylate (Benztropine Mesylate 1 Mg Tab) 1 mg PO HS PRN PRN Reason: muscle stiffness Stop: 03/31/23 21:59 Bismuth Subsalicylate (Bismuth Subsalicylate Liqd 236 Ml) 15 ml PO PRN PRN PRN Reason: Loose Stool Stop: 03/31/23 17:14 Chlorpromazine HCl (Chlorpromazine Hcl 25 Mg Tab) 25 mg PO QD@08 [facility] Stop: 04/21/23 07:59 Last Admin: 03/22/23 20:50 Dose: 25 mg Chlorpromazine HCl (Chlorpromazine Hcl 25 Mg Tab) 50 mg PO HS [facility] Stop: 04/20/23 21:59 Last Admin: 03/22/23 20:55 Dose: 50 mg Docusate Sodium (Docusate Sodium 100 Mg Cap) 200 mg PO BID [facility] Stop: 03/31/23 20:59 Last Admin: 03/23/23 08:53 Dose: Not Given Haloperidol (Haloperidol 5 Mg Tab) 10 mg PO BID [facility] Stop: 04/21/23 20:59 Last Admin: 03/23/23 08:52 Dose: 10 mg Haloperidol (Haloperidol 5 Mg Tab) 20 mg PO DAILYBL [facility] Stop: 04/22/23 11:59 Hydroxyzine HCl (Hydroxyzine Hcl 25 Mg Tab) 50 mg PO HSZ PRN PRN Reason: Insomnia Stop: 04/09/23 16:37 Hydroxyzine HCl (Hydroxyzine Hcl 25 Mg Tab) 25 mg PO Q4H PRN PRN Reason: Anxiety Stop: 04/09/23 16:37 Magnesium Hydroxide (Magnesium Hydroxide Susp 30 Ml Udc) 30 ml PO DAILY PRN PRN Reason: Constipation Stop: 04/09/23 16:37 Multivitamins/Minerals (Cerovite Adv Formula Tab) 1 tab PO QAM [facility] Stop: 04/01/23 08:59 Last Admin: 03/23/23 08:51 Dose: 1 tab Pantoprazole Sodium (Pantoprazole 40 Mg Tab) 40 mg PO QAM [facility] Stop: 04/01/23 08:59 Last Admin: 03/23/23 08:52 Dose: 40 mg Sodium Chloride (Sodium Chloride 0.65% Na Soln 45 Ml ([place])) 1 - 2 sprays NA PRN PRN PRN Reason: Nasal Dryness/Congestion Stop: 03/31/23 17:14 Trazodone HCl (Trazodone Hcl 100 Mg Tab) 100 mg PO [facility] Stop: 04/06/23 21:59 Last Admin: 03/22/23 20:51 Dose: 100 mg Venlafaxine HCl (Venlafaxine Hcl Xr 75 Mg Capxr) [facility] Stop: 04/01/23 08:59 Last Admin: 03/23/23 08:53 Dose: 75 mg Vitamin D (Cholecalciferol 5,000 Units 125 Mcg Tab) 5,000 units PO QAM [facility] Stop: 04/01/23 08:59 Last Admin: 03/23/23 08:52 Dose: 5,000 units Mental Health & Subst Abuse Tx Therapist Name of Therapist: Lala
[2023-03-23] MEDS: chlorproMAZINE HCL 25 MG TAB PO SCH (20:39)
[2023-03-23] MEDS: traZODone HCL 100 MG TAB PO SCH (20:40)
[2023-03-24] MEDS: chlorproMAZINE HCL 25 MG TAB PO SCH ×2 (08:35→21:10)
[2023-03-24] MEDS: haloperidoL 5 MG TAB PO SCH ×3 (08:35→21:10)
[2023-03-24] MEDS: CHOLECALCIFEROL 5,000 UNITS 125 MCG TAB PO SCH (08:35)
[2023-03-24] MEDS: VENLAFAXINE HCL XR 75 MG CAPXR PO SCH (08:36)
[2023-03-24] MEDS: CEROVITE ADV FORMULA TAB PO SCH (08:36)
[2023-03-24] MEDS: PANTOprazole 40 MG TAB PO SCH (08:36)
[2023-03-24] MEDS: DOCUSATE SODIUM 100 MG CAP PO SCH ×2 (08:39→21:16)
--- NOTE | 2023-03-24 20:18 | Psychiatric Progress Note ---
Date of Service March 24, 2023 Impression / Recommendations Impression Agree with assessment per Dr. Levin: 52 yo man with schizophrenia with multiple recent psychiatric hospitalizations after each has eloped from his halfway. Spent about 3 days outside of a hospital setting within the last 4 months. He is now on a 303 commitment. note that main indication for inpatient stay at this point is failure of community resources and although patient not openly having much in the way of positive symptoms he has marked negative symptoms that interfere with his ability to care for self outside of the hospital setting and given the unusual nature under which he was injured and inability to be maintained at supervised living (CRR), inpatient is currently the least restrictive level of care. Now on 304 commitment. MNPR due to psychosis and limited ability to tolerate peers and hx of aggression with delusions 03/24/2023: Command AH today telling him to read the bible but he feels the voices are more manageable overall today. Ongoing psychosis but behavior is largely organized. Per review of previous orthopedic consultation by Dr. Jackson on 02/16/2023 recommendations of: "Consider repeat x-rays in 6 weeks, if he remains symptomatic. He can wean from the boot as tolerated. Recommend treating this edema with elevation and ice." 6 weeks will be on ~03/30/2023. If pain or swelling persists at that point will get repeat x-ray and involve orthopedics as needed. For now will continue with elevation, ice and ongoing use of the boot. Disposition remains largest challenge given multiple recent failed attempts of returning to his halfway due to significant increase in delusions, psychosis, and disorganized behavior as soon as he lives the structure of an inpatient setting. Remains on elopement precautions. Overall, I spent a total of 25 minutes with this case including review of chart records, direct evaluation of the patient at bedside, counseling the patient, discussion during interdisciplinary treatment rounds, risk assessment, and documentation in the electronic health record and meeting with his [facility] transitional home support . (1) Schizophrenia: (2) Paranoid: Plan 03/24/2023: Continue current medications and tx plan. 03/23/2023: Continue current medications and tx plan. 03/22/2023: * increase haloperidol to 10 mg qAM, 20mg midday and 10mg HS- started this schedule 03/22/2023 * consolidate chlorpromazine to 25mg qAM and 50mg HS 03/21/2023: * continue haloperidol 10 mg TID - started this schedule 03/03/2023 * consolidate chlorpromazine to 25mg qAM and 50mg HS 03/20/2023: * continue haloperidol 10 mg TID - started this schedule 03/03/2023 * continue chlorpromazine 25 mg TID - resumed 03/17/2023 * change cogentin from HS scheduled to HS prn use for muscle stiffness to reduce polypharmacy 03/19/2023: * continue haloperidol 10 mg TID - started this schedule 03/03/2023 * continue chlorpromazine 25 mg TID - resumed 03/17/2023 03/18/2023: * continue haloperidol 10 mg TID - started this schedule 03/03/2023 * continue chlorpromazine 25 mg TID - resumed 03/17/2023 03/18/2023: * continue haloperidol 10 mg TID - started this schedule 03/03/2023 * continue chlorpromazine 25 mg TID - resumed 03/17/2023 * was committed for extended treatment at 304 hearing today, plan to pursue [facility] transfer 03/17/2023: * continue haloperidol 10 mg TID - started this schedule 03/03/2023 * increase chlorpromazine to 25 mg TID * probable 304 hearing on February 03/16/2023: * continue haloperidol 10 mg TID - started this schedule 03/03/2023 * resume chlorpromazine 10 mg BID * probable 304 hearing on February 03/15/2023: * continue haloperidol 10 mg TID - started this schedule 03/03/2023 * at this point I'm no longer considering depot haloperidol * if medication change becomes necessary, would likely resume chlorpromazine * probable 304 hearing on 03/14/2023: * continue haloperidol 10 mg TID - started this schedule 03/03/2023 * at this point I'm no longer considering depot haloperidol * if medication change becomes necessary, would likely resume chlorpromazine * probable 304 hearing on 03/13/2023: * continue haloperidol 10 mg TID - started this schedule 03/03/2023 * consider depot haloperidol if it appears BP sufficiently stable 03/12/2023: Continue current medications and tx plan. 03/11/2023: Continue current medications and tx plan. 03/10/2023: Continue current medications and tx plan. 03/09/2023: Continue current medications and tx plan. 03/08/2023: Continue current medications and tx plan. Consider haldol decanoate later this week. 03/07/2023: Start trazodone 100mg HS po. Continue haldol 10mg TID po 03/06/2023: Continue haldol 10mg TID po 03/05/2023: currently unclear if Haldol TID (30 mg total daily dose) will be adequate, will defer today as orthostasis is still resolving and patient fall risk with foot fx. 03/04/2023: continue current meds and tx plan. [facility] referral packet completed by DEEPA. 03/03/2023: unable to resume thorazine, offered to try splitting Haldol to TID to see if any improvement in orthostasis. 03/02/2023: The patient was admitted to the [facility] ([facility] mental health unit) on q15 min checks (behavioral with suicide precautions) for safety. The patient will participate in group, recreational, and milieu therapies and will be offered additional individual and family sessions as clinically appropriate. Continue to hold thorazine and monitor BP. Inventory Assets Strengths: taking PO meds, cooperative with tx plan Needs: longer term hospitalization, medical monitoring Suicide Risk Level Suicide Risk Level: Moderate (q15 min suicide checks) (recent SI and bizarre behavior d/t psychosis but denies SI and feels safe in the hospital and agrees to let staff know if he feels unsafe or needs additional support) Risk Factors Assessment Male: Yes : Yes Do You Have Access To A Gun?: No Mental Health Diagnoses: Yes Previous Attempt: Yes Previous Psychiatric Hospitalization: Yes Protective Factors Assessment Employed: No Interval History Identifying Information CASEY DAMIAN is a 52-year-old man who lives in a [place] psychiatric halfway with a history of schizophrenia, who eloped after returning to his halfway and was found by police wandering with concern for dehydration due to hot temperatures/humidity. He is on a 304 commitment as of 03/18/2023. Chief Complaint "I have to read [place]". Review of Systems Sleep Information Total Hours of Sleep: 6.5 Meal Information Percent Meal Consumed - Breakfast: 100 Percent Meal Consumed - Lunch: 100 Percent Meal Consumed - Dinner: 100 Subjective Subjective Patient was seen & assessed and interval progress reviewed with treatment team nursing and social work. Attending groups at times, polite in social interactions but reserved and largely isolative. This afternoon is reading the bible tells me "I'm supposed to" due to the voices telling him he needs to. Encouraged him to try a group which he did but then had to leave to go back to reading the bible. He does think the voices are "more manageable today". Physical Exam Psychiatric Orientation: alert, oriented to person and oriented to place Apperance: appropriately dressed and appropriately groomed Eye Contact: + fair eye contact Motor Behavior: no abnormal motor movements Speech: normal rate/rhythm/volume of speech (quiet) Affect: + constricted affect Mood: + anxious mood; no depressed mood Thought Process: clear/coherent thought process and + concrete thought process Thought Content: + paranoid and + delusions Suicidal Thoughts: denies suicidal thoughts, denies suicidal plan and denies suicidal intent Homicidal Thoughts: denies homicidal thoughts Hallucinations: + auditory hallucinations (men threatening him) and + visual hallucinations (intermittent of people in trenchcoats in his room) Cognition: recent memory grossly intact, remote memory grossly intact and attention grossly intact Estimated Intelligence: average estimated intelligence Insight: + limited insight Judgment: + limited judgement Vital Signs (Past 24 Hours) Last Vital Signs Temp 36.6 C 03/24/23 06:42 Pulse 61 03/24/23 06:42 Resp 16 03/24/23 06:42 BP 111/70 03/24/23 06:42 Pulse Ox 97 03/21/23 06:36 O2 Del Method Room Air 03/21/23 06:36 Results & Data (U) Current Inpatient Medications Current Inpatient Medications: Current Inpatient Medications Acetaminophen (Acetaminophen 325 Mg Tab) 650 mg PO Q4H PRN PRN Reason: Headache or Minor Fever Stop: 03/31/23 17:14 Last Admin: 03/20/23 14:02 Dose: 650 mg Al Hydrox/Mg Hydrox/Simethicone (Aluminum/Magnesium Susp 30 Ml Udc) 30 ml PO Q4H PRN PRN Reason: GI Upset Stop: 03/31/23 17:14 Benztropine Mesylate (Benztropine Mesylate 1 Mg Tab) 1 mg PO HS PRN PRN Reason: muscle stiffness Stop: 03/31/23 21:59 Bismuth Subsalicylate (Bismuth Subsalicylate Liqd 236 Ml) 15 ml PO PRN PRN PRN Reason: Loose Stool Stop: 03/31/23 17:14 Chlorpromazine HCl (Chlorpromazine Hcl 25 Mg Tab) 25 mg PO QD@08 [facility] Stop: 04/21/23 07:59 Last Admin: 03/24/23 08:35 Dose: 25 mg Chlorpromazine HCl (Chlorpromazine Hcl 25 Mg Tab) 50 mg PO HS [facility] Stop: 04/20/23 21:59 Last Admin: 03/23/23 20:39 Dose: 50 mg Docusate Sodium (Docusate Sodium 100 Mg Cap) 200 mg PO BID [facility] Stop: 03/31/23 20:59 Last Admin: 03/24/23 08:39 Dose: Not Given Haloperidol (Haloperidol 5 Mg Tab) 10 mg PO BID [facility] Stop: 04/21/23 20:59 Last Admin: 03/24/23 08:35 Dose: 10 mg Haloperidol (Haloperidol 5 Mg Tab) 20 mg PO DAILYBL [facility] Stop: 04/22/23 11:59 Last Admin: 03/24/23 12:17 Dose: 20 mg Hydroxyzine HCl (Hydroxyzine Hcl 25 Mg Tab) 50 mg PO HSZ PRN PRN Reason: Insomnia Stop: 04/09/23 16:37 Hydroxyzine HCl (Hydroxyzine Hcl 25 Mg Tab) 25 mg PO Q4H PRN PRN Reason: Anxiety Stop: 04/09/23 16:37 Magnesium Hydroxide (Magnesium Hydroxide Susp 30 Ml Udc) 30 ml PO DAILY PRN PRN Reason: Constipation Stop: 04/09/23 16:37 Multivitamins/Minerals (Cerovite Adv Formula Tab) 1 tab PO QAM [facility] Stop: 04/01/23 08:59 Last Admin: 03/24/23 08:36 Dose: 1 tab Pantoprazole Sodium (Pantoprazole 40 Mg Tab) 40 mg PO QAM [facility] Stop: 04/01/23 08:59 Last Admin: 10/04/23 08:36 Dose: 40 mg Sodium Chloride (Sodium Chloride 0.65% Na Soln 45 Ml ([place])) 1 - 2 sprays NA PRN PRN PRN Reason: Nasal Dryness/Congestion Stop: 03/31/23 17:14 Trazodone HCl (Trazodone Hcl 100 Mg Tab) 100 mg PO HS [facility] Stop: 04/06/23 21:59 Last Admin: 03/23/23 20:40 Dose: 100 mg Venlafaxine HCl (Venlafaxine Hcl Xr 75 Mg Capxr) 75 mg PO QAM [facility] Stop: 04/01/23 08:59 Last Admin: 03/24/23 08:36 Dose: 75 mg Vitamin D (Cholecalciferol 5,000 Units 125 Mcg Tab) 5,000 units PO QAM [facility] Stop: 04/01/23 08:59 Last Admin: 03/24/23 08:35 Dose: 5,000 units Mental Health & Subst Abuse Tx Therapist Name of Therapist: Lala
[2023-03-24] MEDS: traZODone HCL 100 MG TAB PO SCH (21:11)
[2023-03-25] MEDS: haloperidoL 5 MG TAB PO SCH ×3 (08:40→21:21)
[2023-03-25] MEDS: CEROVITE ADV FORMULA TAB PO SCH (08:40)
[2023-03-25] MEDS: chlorproMAZINE HCL 25 MG TAB PO SCH ×2 (08:40→21:21)
[2023-03-25] MEDS: VENLAFAXINE HCL XR 75 MG CAPXR PO SCH (08:40)
[2023-03-25] MEDS: PANTOprazole 40 MG TAB PO SCH (08:40)
[2023-03-25] MEDS: CHOLECALCIFEROL 5,000 UNITS 125 MCG TAB PO SCH (08:40)
[2023-03-25] MEDS: DOCUSATE SODIUM 100 MG CAP PO SCH ×2 (08:43→21:25)
--- NOTE | 2023-03-25 09:23 | Psychiatric Progress Note ---
Date of Service March 25, 2023 Impression / Recommendations Impression Agree with assessment per Dr. Levin: 52 yo man with schizophrenia with multiple recent psychiatric hospitalizations after each has eloped from his retirement. Spent about 3 days outside of a hospital setting within the last 4 months. He is now on a 303 commitment. note that main indication for inpatient stay at this point is failure of community resources and although patient not openly having much in the way of positive symptoms he has marked negative symptoms that interfere with his ability to care for self outside of the hospital setting and given the unusual nature under which he was injured and inability to be maintained at supervised living ([facility]), inpatient is currently the least restrictive level of care. Now on 304 commitment. MNPR due to psychosis and limited ability to tolerate peers and hx of aggression with delusions 03/25/2023: ongoing delusions and AH telling him to read the bible all day. Still questioning his medications intermittently but adherent with them. Will consolidate thorazine at bedtime in effort to reduce daytime fatigue. Per review of previous orthopedic consultation by Dr. Jackson on 02/16/2023 recommendations of: "Consider repeat x-rays in 6 weeks, if he remains symptomatic. He can wean from the boot as tolerated. Recommend treating this edema with elevation and ice." 6 weeks will be on ~03/30/2023. If pain or swelling persists at that point will get repeat x-ray and involve orthopedics as needed. For now will continue with elevation, ice and ongoing use of the boot. Disposition remains largest challenge given multiple recent failed attempts of returning to his retirement due to significant increase in delusions, psychosis, and disorganized behavior as soon as he lives the structure of an inpatient setting. Remains on elopement precautions. Overall, I spent a total of 25 minutes with this case including review of chart records, direct evaluation of the patient at bedside, counseling the patient, discussion during interdisciplinary treatment rounds, risk assessment, and documentation in the electronic health record and meeting with his [facility] transitional [facility] support . (1) Schizophrenia: (2) Paranoid: Plan 03/25/2023: * Consolidate thorazine to 75mg HS * Continue haldol 10mg qAM, 20mg miday and 10mg HS 03/24/2023: Continue current medications and tx plan. 03/23/2023: Continue current medications and tx plan. 03/22/2023: * increase haloperidol to 10 mg qAM, 20mg midday and 10mg HS- started this schedule 03/22/2023 * consolidate chlorpromazine to 25mg qAM and 50mg HS 03/21/2023: * continue haloperidol 10 mg TID - started this schedule 03/03/2023 * consolidate chlorpromazine to 25mg qAM and 50mg HS 03/20/2023: * continue haloperidol 10 mg TID - started this schedule 03/03/2023 * continue chlorpromazine 25 mg TID - resumed 03/17/2023 * change cogentin from HS scheduled to HS prn use for muscle stiffness to reduce polypharmacy 03/19/2023: * continue haloperidol 10 mg TID - started this schedule 03/03/2023 * continue chlorpromazine 25 mg TID - resumed 03/17/2023 03/18/2023: * continue haloperidol 10 mg TID - started this schedule 03/03/2023 * continue chlorpromazine 25 mg TID - resumed 03/17/2023 03/18/2023: * continue haloperidol 10 mg TID - started this schedule 03/03/2023 * continue chlorpromazine 25 mg TID - resumed 03/17/2023 * was committed for extended treatment at 304 hearing today, plan to pursue [facility] transfer 03/17/2023: * continue haloperidol 10 mg TID - started this schedule 03/03/2023 * increase chlorpromazine to 25 mg TID * probable 304 hearing on February 03/16/2023: * continue haloperidol 10 mg TID - started this schedule 03/03/2023 * resume chlorpromazine 10 mg BID * probable 304 hearing on February 03/15/2023: * continue haloperidol 10 mg TID - started this schedule 03/03/2023 * at this point I'm no longer considering depot haloperidol * if medication change becomes necessary, would likely resume chlorpromazine * probable 304 hearing on 03/14/2023: * continue haloperidol 10 mg TID - started this schedule 03/03/2023 * at this point I'm no longer considering depot haloperidol * if medication change becomes necessary, would likely resume chlorpromazine * probable 304 hearing on 03/13/2023: * continue haloperidol 10 mg TID - started this schedule 03/03/2023 * consider depot haloperidol if it appears BP sufficiently stable 03/12/2023: Continue current medications and tx plan. 03/11/2023: Continue current medications and tx plan. 03/10/2023: Continue current medications and tx plan. 03/09/2023: Continue current medications and tx plan. 03/08/2023: Continue current medications and tx plan. Consider haldol decanoate later this week. 03/07/2023: Start trazodone 100mg HS po. Continue haldol 10mg TID po 03/06/2023: Continue haldol 10mg TID po 03/05/2023: currently unclear if Haldol TID (30 mg total daily dose) will be adequate, will defer today as orthostasis is still resolving and patient fall risk with foot fx. 03/04/2023: continue current meds and tx plan. [facility] referral packet completed by DEEPA. 03/03/2023: unable to resume thorazine, offered to try splitting Haldol to TID to see if any improvement in orthostasis. 03/02/2023: The patient was [facility] ([facility] mental health unit) on q15 min checks (behavioral with suicide precautions) for safety. The patient will participate in group, recreational, and milieu therapies and will be offered additional individual and family sessions as clinically appropriate. Continue to hold thorazine and monitor BP. Inventory Assets Strengths: taking PO meds, cooperative with tx plan Needs: longer term hospitalization, medical monitoring Suicide Risk Level Suicide Risk Level: Moderate (q15 min suicide checks) (recent SI and bizarre behavior d/t psychosis but denies SI and feels safe in the hospital and agrees to let staff know if he feels unsafe or needs additional support) Risk Factors Assessment Male: Yes : Yes Do You Have Access To A Gun?: No Mental Health Diagnoses: Yes Previous Attempt: Yes Previous Psychiatric Hospitalization: Yes Protective Factors Assessment Employed: No Interval History Identifying Information CASEY DAMIAN is a 52-year-old man who lives in a [place] psychiatric retirement with a history of schizophrenia, who eloped after returning to his retirement and was found by police wandering with concern for dehydration due to hot temperatures/humidity. He is on a 304 commitment as of 03/18/2023. Chief Complaint "The voices are telling me to keep reading". Review of Systems Sleep Information Total Hours of Sleep: 5.5 Meal Information Percent Meal Consumed - Breakfast: 100 Percent Meal Consumed - Lunch: 100 Percent Meal Consumed - Dinner: 100 Subjective Subjective Patient was seen & assessed and interval progress reviewed with treatment team nursing and social work. Continued to read the bible all evening. Today reports his mood is "good" but that the voices keep telling him to read the bible. Asked why he thinks this is he reports "maybe to help me keep busy?" but also states he feels overwhelmed by all the names and information in the bible. Asks "what should I do with my meds" and clarifies with prompting that he wonders if he should go back on risperidone reporting history of 4mg BID. He cannot describe any concerns initially with his medications but then reports he's been feeling more tired. Discussed option to move thorazine to all at bedtime dosing and he is very pleased with this suggestion and thinks it will be very helpful as he is agreeable to continuing with haldol. Physical Exam Psychiatric Orientation: alert, oriented to person and oriented to place Apperance: appropriately dressed and appropriately groomed Eye Contact: + fair eye contact Motor Behavior: no abnormal motor movements Speech: normal rate/rhythm/volume of speech (quiet) Affect: + constricted affect Mood: + anxious mood; no depressed mood Thought Process: clear/coherent thought process and + concrete thought process Thought Content: + paranoid and + delusions Suicidal Thoughts: denies suicidal thoughts, denies suicidal plan and denies suicidal intent Homicidal Thoughts: denies homicidal thoughts Hallucinations: + auditory hallucinations (command of men telling him things or threatening him) and + visual hallucinations (intermittent of people in trenchcoats in his room) Cognition: recent memory grossly intact, remote memory grossly intact and attention grossly intact Estimated Intelligence: average estimated intelligence Insight: + limited insight Judgment: + limited judgement Vital Signs (Past 24 Hours) Last Vital Signs Temp 36.6 C 03/25/23 06:41 Pulse 88 03/25/23 06:41 Resp 14 03/25/23 06:41 BP 110/72 03/25/23 06:43 Pulse Ox 98 03/25/23 06:41 O2 Del Method Room Air 03/25/23 06:41 [facility] Current Inpatient Medications Current Inpatient Medications: Current Inpatient Medications Acetaminophen (Acetaminophen 325 Mg Tab) 650 mg PO Q4H PRN PRN Reason: Headache or Minor Fever Stop: 03/31/23 17:14 Last Admin: 03/20/23 14:02 Dose: 650 mg Al Hydrox/Mg Hydrox/Simethicone (Aluminum/Magnesium Susp 30 Ml Udc) 30 ml PO Q4H PRN PRN Reason: GI Upset Stop: 03/31/23 17:14 Benztropine Mesylate (Benztropine Mesylate 1 Mg Tab) 1 mg PO HS PRN PRN Reason: muscle stiffness Stop: 03/31/23 21:59 Bismuth Subsalicylate (Bismuth Subsalicylate Liqd 236 Ml) 15 ml PO PRN PRN PRN Reason: Loose Stool Stop: 03/31/23 17:14 Chlorpromazine HCl (Chlorpromazine Hcl 25 Mg Tab) 25 mg PO QD@08 [facility] Stop: 04/21/23 07:59 Last Admin: 03/25/23 08:40 Dose: 25 mg Chlorpromazine HCl (Chlorpromazine Hcl 25 Mg Tab) 50 mg PO HS [facility] Stop: 04/20/23 21:59 Last Admin: 03/24/23 21:10 Dose: 50 mg Docusate Sodium (Docusate Sodium 100 Mg Cap) 200 mg PO BID [facility] Stop: 03/31/23 20:59 Last Admin: 03/25/23 08:43 Dose: Not Given Haloperidol (Haloperidol 5 Mg Tab) 10 mg PO BID [facility] Stop: 04/21/23 20:59 Last Admin: 03/25/23 08:40 Dose: 10 mg Haloperidol (Haloperidol 5 Mg Tab) 20 mg PO DAILYBL [facility] Stop: 04/22/23 11:59 Last Admin: 03/24/23 12:17 Dose: 20 mg Hydroxyzine HCl (Hydroxyzine Hcl 25 Mg Tab) 50 mg PO HSZ PRN PRN Reason: Insomnia Stop: 04/09/23 16:37 Hydroxyzine HCl (Hydroxyzine Hcl 25 Mg Tab) 25 mg PO Q4H PRN PRN Reason: Anxiety Stop: 04/09/23 16:37 Magnesium Hydroxide (Magnesium Hydroxide Susp 30 Ml Udc) 30 ml PO DAILY PRN PRN Reason: Constipation Stop: 04/09/23 16:37 Multivitamins/Minerals (Cerovite Adv Formula Tab) 1 tab PO QAM [facility] Stop: 04/01/23 08:59 Last Admin: 03/25/23 08:40 Dose: 1 tab Pantoprazole Sodium (Pantoprazole 40 Mg Tab) 40 mg PO QAM [facility]UEL Stop: 04/01/23 08:59 Last Admin: 03/25/23 08:40 Dose: 40 mg Sodium Chloride (Sodium Chloride 0.65% Na Soln 45 Ml ([place])) 1 - 2 sprays NA PRN PRN PRN Reason: Nasal Dryness/Congestion Stop: 03/31/23 17:14 Trazodone HCl (Trazodone Hcl 100 Mg Tab) 100 mg PO HS JOSEMANUEL Stop: 04/06/23 21:59 Last Admin: 03/24/23 21:11 Dose: 100 mg Venlafaxine HCl (Venlafaxine Hcl Xr 75 Mg Capxr) 75 mg PO QAM [facility] Stop: 04/01/23 08:59 Last Admin: 03/25/23 08:40 Dose: 75 mg Vitamin D (Cholecalciferol 5,000 Units 125 Mcg Tab) 5,000 units PO QAM [facility] Stop: 04/01/23 08:59 Last Admin: 03/25/23 08:40 Dose: 5,000 units Mental Health & Subst Abuse Tx Therapist Name of Therapist: Lala
[2023-03-25] MEDS: traZODone HCL 100 MG TAB PO SCH (21:22)
[2023-03-26] MEDS: CHOLECALCIFEROL 5,000 UNITS 125 MCG TAB PO SCH (08:38)
[2023-03-26] MEDS: PANTOprazole 40 MG TAB PO SCH (08:38)
[2023-03-26] MEDS: VENLAFAXINE HCL XR 75 MG CAPXR PO SCH (08:38)
[2023-03-26] MEDS: CEROVITE ADV FORMULA TAB PO SCH (08:38)
[2023-03-26] MEDS: haloperidoL 5 MG TAB PO SCH ×3 (08:38→21:35)
[2023-03-26] MEDS: DOCUSATE SODIUM 100 MG CAP PO SCH ×2 (08:44→21:37)
--- NOTE | 2023-03-26 16:25 | Psychiatric Progress Note ---
Date of Service March 26, 2023 Impression / Recommendations Impression Agree with assessment per Dr. Levni: 52 yo man with schizophrenia with multiple recent psychiatric hospitalizations after each has eloped from his senior living. Spent about 3 days outside of a hospital setting within the last 4 months. He is now on a 303 commitment. note that main indication for inpatient stay at this point is failure of community resources and although patient not openly having much in the way of positive symptoms he has marked negative symptoms that interfere with his ability to care for self outside of the hospital setting and given the unusual nature under which he was injured and inability to be maintained at supervised living (CRR), inpatient is currently the least restrictive level of care. Now on 304 commitment. MNPR due to psychosis and limited ability to tolerate peers and hx of aggression with delusions 03/26/2023: ongoing delusions and AH telling him to read or write things from the bible all day. Slept better and reports fewer side effects with consolidation of thorazine. Per review of previous orthopedic consultation by Dr. Jackson on 02/16/2023 recommendations of: "Consider repeat x-rays in 6 weeks, if he remains symptomatic. He can wean from the boot as tolerated. Recommend treating this edema with elevation and ice." 6 weeks will be on ~03/30/2023. If pain or swelling persists at that point will get repeat x-ray and involve orthopedics as needed. For now will continue with elevation, ice and ongoing use of the boot. Disposition remains largest challenge given multiple recent failed attempts of returning to his senior living due to significant increase in delusions, psychosis, and disorganized behavior as soon as he lives the structure of an inpatient setting. Remains on elopement precautions. Overall, I spent a total of 25 minutes with this case including review of chart records, direct evaluation of the patient at bedside, counseling the patient, discussion during interdisciplinary treatment rounds, risk assessment, and documentation in the electronic health record and meeting with his [facility] transitional home support . (1) Schizophrenia: (2) Paranoid: Plan 03/26/2023: * Thorazine 75mg HS * Continue haldol 10mg qAM, 20mg miday and 10mg HS * Consider discontinuation of trazodone 100mg HS in the next few days if thorazine remains helpful for sleep in effort to reduce polypharmacy, for now he wishes to continue with trazodone 03/25/2023: * Consolidate thorazine to 75mg HS * Continue haldol 10mg qAM, 20mg miday and 10mg HS 03/24/2023: Continue current medications and tx plan. 03/23/2023: Continue current medications and tx plan. 03/22/2023: * increase haloperidol to 10 mg qAM, 20mg midday and 10mg HS- started this schedule 03/22/2023 * consolidate chlorpromazine to 25mg qAM and 50mg HS 03/21/2023: * continue haloperidol 10 mg TID - started this schedule 03/03/2023 * consolidate chlorpromazine to 25mg qAM and 50mg HS 03/20/2023: * continue haloperidol 10 mg TID - started this schedule 03/03/2023 * continue chlorpromazine 25 mg TID - resumed 03/17/2023 * change cogentin from HS scheduled to HS prn use for muscle stiffness to reduce polypharmacy 03/19/2023: * continue haloperidol 10 mg TID - started this schedule 03/03/2023 * continue chlorpromazine 25 mg TID - resumed 03/17/2023 03/18/2023: * continue haloperidol 10 mg TID - started this schedule 03/03/2023 * continue chlorpromazine 25 mg TID - resumed 03/17/2023 03/18/2023: * continue haloperidol 10 mg TID - started this schedule 03/03/2023 * continue chlorpromazine 25 mg TID - resumed 03/17/2023 * was committed for extended treatment at 304 hearing today, plan to pursue [facility] hospital transfer 03/17/2023: * continue haloperidol 10 mg TID - started this schedule 03/03/2023 * increase chlorpromazine to 25 mg TID * probable 304 hearing on February 03/16/2023: * continue haloperidol 10 mg TID - started this schedule 03/03/2023 * resume chlorpromazine 10 mg BID * probable 304 hearing on February 03/15/2023: * continue haloperidol 10 mg TID - started this schedule 03/03/2023 * at this point I'm no longer considering depot haloperidol * if medication change becomes necessary, would likely resume chlorpromazine * probable 304 hearing on 03/14/2023: * continue haloperidol 10 mg TID - started this schedule 03/03/2023 * at this point I'm no longer considering depot haloperidol * if medication change becomes necessary, would likely resume chlorpromazine * probable 304 hearing on 03/13/2023: * continue haloperidol 10 mg TID - started this schedule 03/03/2023 * consider depot haloperidol if it appears BP sufficiently stable 03/12/2023: Continue current medications and tx plan. 03/11/2023: Continue current medications and tx plan. 03/10/2023: Continue current medications and tx plan. 03/09/2023: Continue current medications and tx plan. 03/08/2023: Continue current medications and tx plan. Consider haldol decanoate later this week. 03/07/2023: Start trazodone 100mg HS po. Continue haldol 10mg TID po 03/06/2023: Continue haldol 10mg TID po 03/05/2023: currently unclear if Haldol TID (30 mg total daily dose) will be adequate, will defer today as orthostasis is still resolving and patient fall risk with foot fx. 03/04/2023: continue current meds and tx plan. [facility] referral packet completed by DEEPA. 03/03/2023: unable to resume thorazine, offered to try splitting Haldol to TID to see if any improvement in orthostasis. 03/02/2023: The patient was admitted to the [facility] ([facility] mental health unit) on q15 min checks (behavioral with suicide precautions) for safety. The patient will participate in group, recreational, and milieu therapies and will be offered additional individual and family sessions as clinically appropriate. Continue to hold thorazine and monitor BP. Inventory Assets Strengths: taking PO meds, cooperative with tx plan Needs: longer term hospitalization, medical monitoring Suicide Risk Level Suicide Risk Level: Moderate (q15 min suicide checks) (recent SI and bizarre behavior d/t psychosis but denies SI and feels safe in the hospital and agrees to let staff know if he feels unsafe or needs additional support) Risk Factors Assessment Male: Yes : Yes Do You Have Access To A Gun?: No Mental Health Diagnoses: Yes Previous Attempt: Yes Previous Psychiatric Hospitalization: Yes Protective Factors Assessment Employed: No Interval History Identifying Information CASEY DAMIAN is a 52-year-old man who lives in a [place] senior living with a history of schizophrenia, who eloped after returning to his senior living and was found by police wandering with concern for dehydration due to hot temperatures/humidity. He is on a 304 commitment as of 03/18/2023. Chief Complaint "I'm ok". Review of Systems Sleep Information Total Hours of Sleep: 5 Meal Information Percent Meal Consumed - Breakfast: 100 Percent Meal Consumed - Lunch: 100 Percent Meal Consumed - Dinner: 100 Subjective Subjective Patient was seen & assessed and interval progress reviewed with treatment team nursing and social work. Went outside with staff given extended admission of which he was appreciative and expressed gratitude for. Slept better with consolidated thorazine and denies any drowsiness today. Today reports the voices are telling him "to write things from the bible" but also notes that "I've had worse things told to me". Physical Exam Psychiatric Orientation: alert, oriented to person and oriented to place Apperance: appropriately dressed and appropriately groomed Eye Contact: + fair eye contact Motor Behavior: no abnormal motor movements Speech: normal rate/rhythm/volume of speech (quiet) Affect: + constricted affect Mood: + anxious mood; no depressed mood Thought Process: clear/coherent thought process and + concrete thought process Thought Content: + paranoid and + delusions Suicidal Thoughts: denies suicidal thoughts, denies suicidal plan and denies suicidal intent Homicidal Thoughts: denies homicidal thoughts Hallucinations: + auditory hallucinations (command of men telling him things or threatening him) and + visual hallucinations (intermittent of people in trenchcoats in his room) Cognition: recent memory grossly intact, remote memory grossly intact and attention grossly intact Estimated Intelligence: average estimated intelligence Insight: + limited insight Judgment: + limited judgement Vital Signs (Past 24 Hours) Last Vital Signs Temp 36.5 C 03/26/23 06:00 Pulse 88 03/26/23 06:56 Resp 18 03/26/23 06:00 BP 84/60 L 03/26/23 06:56 Pulse Ox 98 03/25/23 06:41 O2 Del Method Room Air 03/25/23 06:41 Results & Data ([facility]) Current Inpatient Medications Current Inpatient Medications: Current Inpatient Medications Acetaminophen (Acetaminophen 325 Mg Tab) 650 mg PO Q4H PRN PRN Reason: Headache or Minor Fever Stop: 03/31/23 17:14 Last Admin: 03/20/23 14:02 Dose: 650 mg Al Hydrox/Mg Hydrox/Simethicone (Aluminum/Magnesium Susp 30 Ml Udc) 30 ml PO Q4H PRN PRN Reason: GI Upset Stop: 03/31/23 17:14 Benztropine Mesylate (Benztropine Mesylate 1 Mg Tab) 1 mg PO HS PRN PRN Reason: muscle stiffness Stop: 03/31/23 21:59 Bismuth Subsalicylate (Bismuth Subsalicylate Liqd 236 Ml) 15 ml PO PRN PRN PRN Reason: Loose Stool Stop: 03/31/23 17:14 Chlorpromazine HCl (Chlorpromazine Hcl 25 Mg Tab) 75 mg PO HS JOSEMANUEL Stop: 04/24/23 21:59 Last Admin: 03/25/23 21:21 Dose: 75 mg Docusate Sodium (Docusate Sodium 100 Mg Cap) 200 mg PO BID JOSEMANUEL Stop: 03/31/23 20:59 Last Admin: 03/26/23 08:44 Dose: Not Given Haloperidol (Haloperidol 5 Mg Tab) 10 mg PO BID JOSEMANUEL Stop: 04/21/23 20:59 Last Admin: 03/26/23 08:38 Dose: 10 mg Haloperidol (Haloperidol 5 Mg Tab) 20 mg PO DAILYBL JOSEMANUEL Stop: 04/22/23 11:59 Last Admin: 03/26/23 12:39 Dose: 20 mg Hydroxyzine HCl (Hydroxyzine Hcl 25 Mg Tab) 50 mg PO HSZ PRN PRN Reason: Insomnia Stop: 04/09/23 16:37 Hydroxyzine HCl (Hydroxyzine Hcl 25 Mg Tab) 25 mg PO Q4H PRN PRN Reason: Anxiety Stop: 04/09/23 16:37 Magnesium Hydroxide (Magnesium Hydroxide Susp 30 Ml Udc) 30 ml PO DAILY PRN PRN Reason: Constipation Stop: 04/09/23 16:37 Multivitamins/Minerals (Cerovite Adv Formula Tab) 1 tab PO QAM JOSEMANUEL Stop: 04/01/23 08:59 Last Admin: 03/26/23 08:38 Dose: 1 tab Pantoprazole Sodium (Pantoprazole 40 Mg Tab) 40 mg PO QAM JOSEMANUEL Stop: 04/01/23 08:59 Last Admin: 03/26/23 08:38 Dose: 40 mg Sodium Chloride (Sodium Chloride 0.65% Na Soln 45 Ml ([place])) 1 - 2 sprays NA PRN PRN PRN Reason: Nasal Dryness/Congestion Stop: 03/31/23 17:14 Trazodone HCl (Trazodone Hcl 100 Mg Tab) 100 mg PO [facility] Stop: 04/06/23 21:59 Last Admin: 03/25/23 21:22 Dose: 100 mg Venlafaxine HCl (Venlafaxine Hcl Xr 75 Mg Capxr) 75 mg PO [place] Stop: 04/01/23 08:59 Last Admin: 03/26/23 08:38 Dose: 75 mg Vitamin D (Cholecalciferol 5,000 Units 125 Mcg Tab) 5,000 units PO QAM JOSEMANUEL Stop: 04/01/23 08:59 Last Admin: 03/26/23 08:38 Dose: 5,000 units Mental Health & Subst Abuse Tx Therapist Name of Therapist: Lala
[2023-03-26] MEDS: chlorproMAZINE HCL 25 MG TAB PO SCH (21:35)
[2023-03-26] MEDS: traZODone HCL 100 MG TAB PO SCH (21:36)
[2023-03-27] MEDS: chlorproMAZINE HCL 25 MG TAB PO SCH (08:50)
[2023-03-27] MEDS: CHOLECALCIFEROL 5,000 UNITS 125 MCG TAB PO SCH (09:18)
[2023-03-27] MEDS: VENLAFAXINE HCL XR 75 MG CAPXR PO SCH (09:18)
[2023-03-27] MEDS: haloperidoL 5 MG TAB PO SCH ×3 (09:18→20:45)
[2023-03-27] MEDS: CEROVITE ADV FORMULA TAB PO SCH (09:18)
[2023-03-27] MEDS: PANTOprazole 40 MG TAB PO SCH (09:18)
[2023-03-27] MEDS: DOCUSATE SODIUM 100 MG CAP PO SCH ×2 (09:25→20:44)
--- NOTE | 2023-03-27 14:35 | Psychiatric Progress Note ---
Date of Service March 27, 2023 Impression / Recommendations Impression 52 yo man with schizophrenia with multiple recent psychiatric hospitalizations after each has eloped from his halfway. Spent about 3 days outside of a hospital setting within the last 4 months. note that main indication for inpatient stay at this point is failure of community resources and although patient not openly having much in the way of positive symptoms he has marked negative symptoms that interfere with his ability to care for self outside of the hospital setting and given the unusual nature under which he was injured and inability to be maintained at supervised living ([facility]), inpatient is currently the least restrictive level of care. Now on 304 commitment. MNPR due to psychosis and limited ability to tolerate peers and hx of aggression with delusions 03/27/2023: improving but unable to care for self outside of the hospital. Per review of previous orthopedic consultation by Dr. Jackson on 02/16/2023 recommendations of: "Consider repeat x-rays in 6 weeks, if he remains symptomatic. He can wean from the boot as tolerated. Recommend treating this edema with elevation and ice." 6 weeks will be on ~03/30/2023. If pain or swelling persists at that point will get repeat x-ray and involve orthopedics as needed. For now will continue with elevation, ice and ongoing use of the boot. Disposition remains largest challenge given multiple recent failed attempts of returning to his halfway due to significant increase in delusions, psychosis, and disorganized behavior as soon as he lives the structure of an inpatient setting. Overall, I spent a total of 25 minutes with this case including review of chart records, direct evaluation of the patient at bedside, counseling the patient, discussion with nursing, and documentation in the electronic health record. (1) Schizophrenia: (2) Paranoid: Plan 03/27/2023: continue current meds and tx plan. 03/26/2023: * Thorazine 75mg HS * Continue haldol 10mg qAM, 20mg miday and 10mg HS * Consider discontinuation of trazodone 100mg HS in the next few days if thorazine remains helpful for sleep in effort to reduce polypharmacy, for now he wishes to continue with trazodone 03/25/2023: * Consolidate thorazine to 75mg HS * Continue haldol 10mg qAM, 20mg miday and 10mg HS 03/24/2023: Continue current medications and tx plan. 03/23/2023: Continue current medications and tx plan. 03/22/2023: * increase haloperidol to 10 mg qAM, 20mg midday and 10mg HS- started this schedule 03/22/2023 * consolidate chlorpromazine to 25mg qAM and 50mg HS 03/21/2023: * continue haloperidol 10 mg TID - started this schedule 03/03/2023 * consolidate chlorpromazine to 25mg qAM and 50mg HS 03/20/2023: * continue haloperidol 10 mg TID - started this schedule 03/03/2023 * continue chlorpromazine 25 mg TID - resumed 03/17/2023 * change cogentin from HS scheduled to HS prn use for muscle stiffness to reduce polypharmacy 03/19/2023: * continue haloperidol 10 mg TID - started this schedule 03/03/2023 * continue chlorpromazine 25 mg TID - resumed 03/17/2023 03/18/2023: * continue haloperidol 10 mg TID - started this schedule 03/03/2023 * continue chlorpromazine 25 mg TID - resumed 03/17/2023 03/18/2023: * continue haloperidol 10 mg TID - started this schedule 03/03/2023 * continue chlorpromazine 25 mg TID - resumed 03/17/2023 * was committed for extended treatment at 304 hearing today, plan to pursue [facility] transfer 03/17/2023: * continue haloperidol 10 mg TID - started this schedule 03/03/2023 * increase chlorpromazine to 25 mg TID * probable 304 hearing on February 03/16/2023: * continue haloperidol 10 mg TID - started this schedule 03/03/2023 * resume chlorpromazine 10 mg BID * probable 304 hearing on February 03/15/2023: * continue haloperidol 10 mg TID - started this schedule 03/03/2023 * at this point I'm no longer considering depot haloperidol * if medication change becomes necessary, would likely resume chlorpromazine * probable 304 hearing on 03/14/2023: * continue haloperidol 10 mg TID - started this schedule 03/03/2023 * at this point I'm no longer considering depot haloperidol * if medication change becomes necessary, would likely resume chlorpromazine * probable 304 hearing on 03/13/2023: * continue haloperidol 10 mg TID - started this schedule 03/03/2023 * consider depot haloperidol if it appears BP sufficiently stable 03/12/2023: Continue current medications and tx plan. 03/11/2023: Continue current medications and tx plan. 03/10/2023: Continue current medications and tx plan. 03/09/2023: Continue current medications and tx plan. 03/08/2023: Continue current medications and tx plan. Consider haldol decanoate later this week. 03/07/2023: Start trazodone 100mg HS po. Continue haldol 10mg TID po 03/06/2023: Continue haldol 10mg TID po 03/05/2023: currently unclear if Haldol TID (30 mg total daily dose) will be adequate, will defer today as orthostasis is still resolving and patient fall risk with foot fx. 03/04/2023: continue current meds and tx plan. [facility] referral packet completed by DEEPA. 03/03/2023: unable to resume thorazine, offered to try splitting Haldol to TID to see if any improvement in orthostasis. 03/02/2023: The patient was admitted to the [facility] ([facility] mental health unit) on q15 min checks (behavioral with suicide precautions) for safety. The patient will participate in group, recreational, and milieu therapies and will be offered additional individual and family sessions as clinically appropriate. Continue to hold thorazine and monitor BP. Inventory Assets Strengths: taking PO meds, cooperative with tx plan Needs: longer term hospitalization, medical monitoring Suicide Risk Level Suicide Risk Level: Moderate (q15 min suicide checks) Risk Factors Assessment Male: Yes : Yes Do You Have Access To A Gun?: No Mental Health Diagnoses: Yes Previous Attempt: Yes Previous Psychiatric Hospitalization: Yes Protective Factors Assessment Employed: No Interval History Identifying Information CASEY DAMIAN is a 52-year-old man who lives in a [place] psychiatric halfway with a history of schizophrenia, who eloped after returning to his halfway and was found by police wandering with concern for dehydration due to hot temperatures/humidity. He is on a 304 commitment as of 03/18/2023. Chief Complaint "I'm feeling better thank you." Review of Systems Sleep Information Total Hours of Sleep: 6.5 Meal Information Percent Meal Consumed - Breakfast: 100 Percent Meal Consumed - Lunch: 90 Percent Meal Consumed - Dinner: 100 Subjective Subjective Patient was seen & assessed and interval progress reviewed with nursing. Mild pain and swelling in broken foot, continues to wear boot. More able to engage in superficial conversation. Physical Exam Psychiatric Orientation: alert, oriented x 3, oriented to person and oriented to place Apperance: appropriately dressed and appropriately groomed Eye Contact: + fair eye contact Motor Behavior: no abnormal motor movements Speech: normal rate/rhythm/volume of speech (quiet) Affect: euthymic affect Mood: no depressed mood and no anxious mood Thought Process: clear/coherent thought process and + concrete thought process Thought Content: + paranoid; no delusions Suicidal Thoughts: denies suicidal thoughts, denies suicidal plan and denies suicidal intent Homicidal Thoughts: denies homicidal thoughts Hallucinations: + visual hallucinations (intermittent of people in trenchcoats in his room); no auditory hallucinations Cognition: recent memory grossly intact, remote memory grossly intact and attention grossly intact Estimated Intelligence: average estimated intelligence Insight: + limited insight Judgment: + limited judgement Vital Signs (Past 24 Hours) Last Vital Signs Temp 36.6 C 03/27/23 06:44 Pulse 77 03/27/23 06:45 Resp 16 03/27/23 06:44 BP 104/70 03/27/23 06:45 Pulse Ox 98 03/25/23 06:41 O2 Del Method Room Air 03/25/23 06:41 Results & Data ([facility]) Current Inpatient Medications Current Inpatient Medications: Current Inpatient Medications Acetaminophen (Acetaminophen 325 Mg Tab) 650 mg PO Q4H PRN PRN Reason: Headache or Minor Fever Stop: 03/31/23 17:14 Last Admin: 03/20/23 14:02 Dose: 650 mg Al Hydrox/Mg Hydrox/Simethicone (Aluminum/Magnesium Susp 30 Ml Udc) 30 ml PO Q4H PRN PRN Reason: GI Upset Stop: 03/31/23 17:14 Benztropine Mesylate (Benztropine Mesylate 1 Mg Tab) 1 mg PO HS PRN PRN Reason: muscle stiffness Stop: 03/31/23 21:59 Bismuth Subsalicylate (Bismuth Subsalicylate Liqd 236 Ml) 15 ml PO PRN PRN PRN Reason: Loose Stool Stop: 03/31/23 17:14 Chlorpromazine HCl (Chlorpromazine Hcl 25 Mg Tab) 75 mg PO HS JOSEMANUEL Stop: 04/24/23 21:59 Last Admin: 03/26/23 21:35 Dose: 75 mg Docusate Sodium (Docusate Sodium 100 Mg Cap) 200 mg PO BID JOSEMANUEL Stop: 03/31/23 20:59 Last Admin: 03/27/23 09:25 Dose: 200 mg Haloperidol (Haloperidol 5 Mg Tab) 10 mg PO BID JOSEMANUEL Stop: 04/21/23 20:59 Last Admin: 03/27/23 09:18 Dose: 10 mg Haloperidol (Haloperidol 5 Mg Tab) 20 mg PO DAILYBL JOSEMANUEL Stop: 04/22/23 11:59 Last Admin: 03/27/23 13:08 Dose: 20 mg Hydroxyzine HCl (Hydroxyzine Hcl 25 Mg Tab) 50 mg PO HSZ PRN PRN Reason: Insomnia Stop: 04/09/23 16:37 Hydroxyzine HCl (Hydroxyzine Hcl 25 Mg Tab) 25 mg PO Q4H PRN PRN Reason: Anxiety Stop: 04/09/23 16:37 Magnesium Hydroxide (Magnesium Hydroxide Susp 30 Ml Udc) 30 ml PO DAILY PRN PRN Reason: Constipation Stop: 04/09/23 16:37 Multivitamins/Minerals (Cerovite Adv Formula Tab) 1 tab PO QAM JOSEMANUEL Stop: 04/01/23 08:59 Last Admin: 03/27/23 09:18 Dose: 1 tab Pantoprazole Sodium (Pantoprazole 40 Mg Tab) 40 mg PO QAM JOSEMANUEL Stop: 04/01/23 08:59 Last Admin: 03/27/23 09:18 Dose: 40 mg Sodium Chloride (Sodium Chloride 0.65% Na Soln 45 Ml ([place])) 1 - 2 sprays NA PRN PRN PRN Reason: Nasal Dryness/Congestion Stop: 03/31/23 17:14 Trazodone HCl (Trazodone Hcl 100 Mg Tab) 100 mg PO HS JOSEMANUEL Stop: 04/06/23 21:59 Last Admin: 03/26/23 21:36 Dose: 100 mg Venlafaxine HCl (Venlafaxine Hcl Xr 75 Mg Capxr) 75 mg PO QAM [facility] Stop: 04/01/23 08:59 Last Admin: 03/27/23 09:18 Dose: 75 mg Vitamin D (Cholecalciferol 5,000 Units 125 Mcg Tab) [facility] Stop: 04/01/23 08:59 Last Admin: 03/27/23 09:18 Dose: 5,000 units Mental Health & Subst Abuse Tx Therapist Name of Therapist: Lala
[2023-03-27] MEDS: traZODone HCL 100 MG TAB PO SCH (20:48)
[2023-03-28] MEDS: haloperidoL 5 MG TAB PO SCH ×3 (09:20→20:38)
[2023-03-28] MEDS: PANTOprazole 40 MG TAB PO SCH (09:20)
[2023-03-28] MEDS: CEROVITE ADV FORMULA TAB PO SCH (09:20)
[2023-03-28] MEDS: CHOLECALCIFEROL 5,000 UNITS 125 MCG TAB PO SCH (09:21)
[2023-03-28] MEDS: VENLAFAXINE HCL XR 75 MG CAPXR PO SCH (09:21)
[2023-03-28] MEDS: DOCUSATE SODIUM 100 MG CAP PO SCH ×2 (09:21→20:37)
--- NOTE | 2023-03-28 13:12 | Psychiatric Progress Note ---
Date of Service March 28, 2023 Impression / Recommendations Impression 52 yo man with schizophrenia with multiple recent psychiatric hospitalizations after each has eloped from his prison. Spent about 3 days outside of a hospital setting within the last 4 months. note that main indication for inpatient stay at this point is failure of community resources and although patient not openly having much in the way of positive symptoms he has marked negative symptoms that interfere with his ability to care for self outside of the hospital setting and given the unusual nature under which he was injured and inability to be maintained at supervised living ([facility]), inpatient is currently the least restrictive level of care. Now on 304 commitment. MNPR due to psychosis and limited ability to tolerate peers and hx of aggression with delusions 03/27/2023: improving but unable to care for self outside of the hospital. Per review of previous orthopedic consultation by Dr. [facility] on 02/16/2023 recommendations of: "Consider repeat x-rays in 6 weeks, if he remains symptomatic. He can wean from the boot as tolerated. Recommend treating this edema with elevation and ice." 6 weeks will be on ~03/30/2023. If pain or swelling persists at that point will get repeat x-ray and involve orthopedics as needed. For now will continue with elevation, ice and ongoing use of the boot. Disposition remains largest challenge given multiple recent failed attempts of returning to his prison due to significant increase in delusions, psychosis, and disorganized behavior as soon as he lives the structure of an inpatient setting. PLAN: continue current meds and tx plan. (1) Schizophrenia: (2) Paranoid: Inventory Assets Strengths: taking PO meds, cooperative with tx plan Needs: longer term hospitalization, medical monitoring Suicide Risk Level Suicide Risk Level: Moderate (q15 min suicide checks) Risk Factors Assessment Male: Yes : Yes Do You Have Access To A Gun?: No Mental Health Diagnoses: Yes Previous Attempt: Yes Previous Psychiatric Hospitalization: Yes Protective Factors Assessment Employed: No Interval History Identifying Information CASEY DAMIAN is a 52-year-old man who lives in a [facility] with a history of schizophrenia, who eloped after returning to his prison and was found by police wandering with concern for dehydration due to hot temperatures/humidity. He is on a 304 commitment as of 03/18/2023. Chief Complaint "no complaints" Review of Systems Sleep Information Total Hours of Sleep: 5.5 Meal Information Percent Meal Consumed - Breakfast: 100 Percent Meal Consumed - Lunch: 90 Percent Meal Consumed - Dinner: 100 Subjective Subjective Patient was seen & assessed and interval progress reviewed with nursing and social work. No issues overnight, typically denies hallucinations to me but has admitted hearing voices to male staff. VS good. Was more interactive yesterday. Physical Exam Psychiatric Orientation: alert Eye Contact: + fair eye contact Motor Behavior: no abnormal motor movements Speech: normal rate/rhythm/volume of speech (quiet) Affect: + constricted affect Mood: no depressed mood Thought Process: + concrete thought process Thought Content: + paranoid; no delusions Suicidal Thoughts: denies suicidal thoughts, denies suicidal plan and denies suicidal intent Homicidal Thoughts: denies homicidal thoughts Hallucinations: no auditory hallucinations and no visual hallucinations (none at time of assessment) Insight: + limited insight Judgment: + limited judgement Vital Signs (Past 24 Hours) Last Vital Signs Temp 36.6 C 03/28/23 06:47 Pulse 74 03/28/23 06:47 Resp 16 03/28/23 06:47 BP 131/84 03/28/23 06:47 Pulse Ox 98 03/25/23 06:41 O2 Del Method Room Air 03/25/23 06:41 Results & Data ([facility]) Current Inpatient Medications Current Inpatient Medications: Current Inpatient Medications Acetaminophen (Acetaminophen 325 Mg Tab) 650 mg PO Q4H PRN PRN Reason: Headache or Minor Fever Stop: 03/31/23 17:14 Last Admin: 03/20/23 14:02 Dose: 650 mg Al Hydrox/Mg Hydrox/Simethicone (Aluminum/Magnesium Susp 30 Ml Udc) 30 ml PO Q4H PRN PRN Reason: GI Upset Stop: 03/31/23 17:14 Benztropine Mesylate (Benztropine Mesylate 1 Mg Tab) 1 mg PO HS PRN PRN Reason: muscle stiffness Stop: 03/31/23 21:59 Bismuth Subsalicylate (Bismuth Subsalicylate Liqd 236 Ml) 15 ml PO PRN PRN PRN Reason: Loose Stool Stop: 03/31/23 17:14 Chlorpromazine HCl (Chlorpromazine Hcl 25 Mg Tab) 75 mg PO HS JOSEMANUEL Stop: 04/24/23 21:59 Last Admin: 03/27/23 08:50 Dose: 75 mg Docusate Sodium (Docusate Sodium 100 Mg Cap) 200 mg PO BID JOSEMANUEL Stop: 03/31/23 20:59 Last Admin: 03/28/23 09:21 Dose: 200 mg Haloperidol (Haloperidol 5 Mg Tab) 10 mg PO BID JOSEMANUEL Stop: 04/21/23 20:59 Last Admin: 03/28/23 09:20 Dose: 10 mg Haloperidol (Haloperidol 5 Mg Tab) 20 mg PO DAILYBL JOSEMANUEL Stop: 04/22/23 11:59 Last Admin: 03/27/23 13:08 Dose: 20 mg Hydroxyzine HCl (Hydroxyzine Hcl 25 Mg Tab) 50 mg PO HSZ PRN PRN Reason: Insomnia Stop: 04/09/23 16:37 Hydroxyzine HCl (Hydroxyzine Hcl 25 Mg Tab) 25 mg PO Q4H PRN PRN Reason: Anxiety Stop: 04/09/23 16:37 Magnesium Hydroxide (Magnesium Hydroxide Susp 30 Ml Udc) 30 ml PO DAILY PRN PRN Reason: Constipation Stop: 04/09/23 16:37 Multivitamins/Minerals (Cerovite Adv Formula Tab) 1 tab PO QAM JOSEMANUEL Stop: 04/01/23 08:59 Last Admin: 03/28/23 09:20 Dose: 1 tab Pantoprazole Sodium (Pantoprazole 40 Mg Tab) 40 mg PO QAM JOSEMANUEL Stop: 04/01/23 08:59 Last Admin: 03/28/23 09:20 Dose: 40 mg Sodium Chloride (Sodium Chloride 0.65% Na Soln 45 Ml ([place])) 1 - 2 sprays NA PRN PRN PRN Reason: Nasal Dryness/Congestion Stop: 03/31/23 17:14 Trazodone HCl (Trazodone Hcl 100 Mg Tab) 100 mg PO HS JOSEMANUEL Stop: 04/06/23 21:59 Last Admin: 03/27/23 20:48 Dose: 100 mg Venlafaxine HCl (Venlafaxine Hcl Xr 75 Mg Capxr) 75 mg PO QAM JOSEMANUEL Stop: 04/01/23 08:59 Last Admin: 03/28/23 09:21 Dose: 75 mg Vitamin D (Cholecalciferol 5,000 Units 125 Mcg Tab) 5,000 units PO QAM JOSEMANUEL Stop: 04/01/23 08:59 Last Admin: 03/28/23 09:21 Dose: 5,000 units Mental Health & Subst Abuse Tx Therapist Name of Therapist: Lala
[2023-03-28] MEDS: traZODone HCL 100 MG TAB PO SCH (20:40)
[2023-03-28] MEDS: chlorproMAZINE HCL 25 MG TAB PO SCH (20:42)
[2023-03-29] MEDS: haloperidoL 5 MG TAB PO SCH ×3 (08:51→21:20)
[2023-03-29] MEDS: VENLAFAXINE HCL XR 75 MG CAPXR PO SCH (08:51)
[2023-03-29] MEDS: PANTOprazole 40 MG TAB PO SCH (08:51)
[2023-03-29] MEDS: CHOLECALCIFEROL 5,000 UNITS 125 MCG TAB PO SCH (08:51)
[2023-03-29] MEDS: CEROVITE ADV FORMULA TAB PO SCH (08:51)
[2023-03-29] MEDS: DOCUSATE SODIUM 100 MG CAP PO SCH ×2 (08:53→21:21)
--- NOTE | 2023-03-29 17:54 | Psychiatric Progress Note ---
Date of Service March 29, 2023 Impression / Recommendations Impression 52 yo man with schizophrenia with multiple recent psychiatric hospitalizations after each has eloped from his halfway. Spent about 3 days outside of a hospital setting within the last 4 months. note that main indication for inpatient stay at this point is failure of community resources and although patient not openly having much in the way of positive symptoms he has marked negative symptoms that interfere with his ability to care for self outside of the hospital setting and given the unusual nature under which he was injured and inability to be maintained at supervised living ([facility]), inpatient is currently the least restrictive level of care. Now on 304 commitment. MNPR due to psychosis and limited ability to tolerate peers and hx of aggression with delusions 03/29/2023: improving but unable to care for self outside of the hospital. Per review of previous orthopedic consultation by Dr. [facility] on 02/16/2023 recommendations of: "Consider repeat x-rays in 6 weeks, if he remains symptomatic. He can wean from the boot as tolerated. Recommend treating this edema with elevation and ice." 6 weeks will be on ~03/30/2023. If pain or swelling persists at that point will get repeat x-ray and involve orthopedics as needed. For now will continue with elevation, ice and ongoing use of the boot. Disposition remains largest challenge given multiple recent failed attempts of returning to his halfway due to significant increase in delusions, psychosis, and disorganized behavior as soon as he lives the structure of an inpatient setting. Overall, I spent a total of 45 minutes with this case, including review of chart/records, direct evaluation of the patient, counseling the patient, ordering medication, coordination with nursing or interdisciplinary team meeting, care review, and documentation. (1) Schizophrenia: (2) Paranoid: Plan 03/28/2023: diversion meeting outcome is all community resources have been exhausted and patient will remain referred to [facility]. repeat foot x ray tomorrow. Patient desires d/c trazodone. completed quality case review with [facility] peer to peer Dr. Jimenez discussing that patient has repeatedly refused clozaril and HAYES and prefers thorazine/haldol component, current doses are best for his BP. Discussed rationale for low dose Effexor XR. Patient has become agitated/disinhibited on higher doses of antidepressants in past so I would not titrate. 03/27/2023: continue current meds and tx plan. 03/26/2023: * Thorazine 75mg HS * Continue haldol 10mg qAM, 20mg miday and 10mg HS * Consider discontinuation of trazodone 100mg HS in the next few days if thorazine remains helpful for sleep in effort to reduce polypharmacy, for now he wishes to continue with trazodone 03/25/2023: * Consolidate thorazine to 75mg HS * Continue haldol 10mg qAM, 20mg miday and 10mg HS 03/24/2023: Continue current medications and tx plan. 03/23/2023: Continue current medications and tx plan. 03/22/2023: * increase haloperidol to 10 mg qAM, 20mg midday and 10mg HS- started this schedule 03/22/2023 * consolidate chlorpromazine to 25mg qAM and 50mg HS 03/21/2023: * continue haloperidol 10 mg TID - started this schedule 03/03/2023 * consolidate chlorpromazine to 25mg qAM and 50mg HS 03/20/2023: * continue haloperidol 10 mg TID - started this schedule 03/03/2023 * continue chlorpromazine 25 mg TID - resumed 03/17/2023 * change cogentin from HS scheduled to HS prn use for muscle stiffness to reduce polypharmacy 03/19/2023: * continue haloperidol 10 mg TID - started this schedule 03/03/2023 * continue chlorpromazine 25 mg TID - resumed 03/17/2023 03/18/2023: * continue haloperidol 10 mg TID - started this schedule 03/03/2023 * continue chlorpromazine 25 mg TID - resumed 03/17/2023 03/18/2023: * continue haloperidol 10 mg TID - started this schedule 03/03/2023 * continue chlorpromazine 25 mg TID - resumed 03/17/2023 * was committed for extended treatment at 304 hearing today, plan to pursue [facility] transfer 03/17/2023: * continue haloperidol 10 mg TID - started this schedule 03/03/2023 * increase chlorpromazine to 25 mg TID * probable 304 hearing on February 03/16/2023: * continue haloperidol 10 mg TID - started this schedule 03/03/2023 * resume chlorpromazine 10 mg BID * probable 304 hearing on February 03/15/2023: * continue haloperidol 10 mg TID - started this schedule 03/03/2023 * at this point I'm no longer considering depot haloperidol * if medication change becomes necessary, would likely resume chlorpromazine * probable 304 hearing on 03/14/2023: * continue haloperidol 10 mg TID - started this schedule 03/03/2023 * at this point I'm no longer considering depot haloperidol * if medication change becomes necessary, would likely resume chlorpromazine * probable 304 hearing on 03/13/2023: * continue haloperidol 10 mg TID - started this schedule 03/03/2023 * consider depot haloperidol if it appears BP sufficiently stable 03/12/2023: Continue current medications and tx plan. 03/11/2023: Continue current medications and tx plan. 03/10/2023: Continue current medications and tx plan. 03/09/2023: Continue current medications and tx plan. 03/08/2023: Continue current medications and tx plan. Consider haldol decanoate later this week. 03/07/2023: Start trazodone 100mg HS po. Continue haldol 10mg TID po 03/06/2023: Continue haldol 10mg TID po 03/05/2023: currently unclear if Haldol TID (30 mg total daily dose) will be adequate, will defer today as orthostasis is still resolving and patient fall risk with foot fx. 03/04/2023: continue current meds and tx plan. [facility] referral packet completed by DEEPA. 03/03/2023: unable to resume thorazine, offered to try splitting Haldol to TID to see if any improvement in orthostasis. 03/02/2023: The patient was admitted to the [facility] ([facility]) on q15 min checks (behavioral with suicide precautions) for safety. The patient will participate in group, recreational, and milieu therapies and will be offered additional individual and family sessions as clinically appropriate. Continue to hold thorazine and monitor BP. Inventory Assets Strengths: taking PO meds, cooperative with tx plan Needs: longer term hospitalization, medical monitoring Suicide Risk Level Suicide Risk Level: Moderate (q15 min suicide checks) Risk Factors Assessment Male: Yes : Yes Do You Have Access To A Gun?: No Mental Health Diagnoses: Yes Previous Attempt: Yes Previous Psychiatric Hospitalization: Yes Protective Factors Assessment Employed: No Interval History Identifying Information CASEY DAMIAN is a 52-year-old man who lives in a [facility] halfway with a history of schizophrenia, who eloped after returning to his halfway and was found by police wandering with concern for dehydration due to hot temperatures/humidity. He is on a 304 commitment as of 03/18/2023. Chief Complaint "I get tired too soon at night." Review of Systems Sleep Information Total Hours of Sleep: 7 Meal Information Percent Meal Consumed - Breakfast: 100 Percent Meal Consumed - Lunch: 100 Percent Meal Consumed - Dinner: 100 Subjective Subjective Patient was seen & assessed and interval progress reviewed with treatment team. Patient's foot reexamined, swelling and deformity decreased but still causing some discomfort on bottom of foot. Patient reports to staff that his voices encourage him to read people so are less distressing and made some off topic comment about his legs being amputated in past. Otherwise pleasant. Physical Exam Psychiatric Orientation: alert Apperance: appropriately dressed and appropriately groomed Eye Contact: good eye contact Motor Behavior: no abnormal motor movements Speech: normal rate/rhythm/volume of speech Affect: euthymic affect Mood: no depressed mood Thought Process: + concrete thought process Thought Content: + delusions and + persecution Suicidal Thoughts: denies suicidal thoughts Homicidal Thoughts: denies homicidal thoughts Hallucinations: no auditory hallucinations and no visual hallucinations Cognition: attention grossly intact and language grossly intact Estimated Intelligence: consistent with education level Insight: + limited insight Judgment: + limited judgement Vital Signs (Past 24 Hours) Last Vital Signs Temp 36.4 C L 03/29/23 06:45 Pulse 66 03/29/23 06:46 Resp 16 03/29/23 06:45 BP 103/68 03/29/23 06:46 Pulse Ox 98 03/25/23 06:41 O2 Del Method Room Air 03/25/23 06:41 Results & Data ([facility]) Current Inpatient Medications Current Inpatient Medications: Current Inpatient Medications Acetaminophen (Acetaminophen 325 Mg Tab) 650 mg PO Q4H PRN PRN Reason: Headache or Minor Fever Stop: 03/31/23 17:14 Last Admin: 03/20/23 14:02 Dose: 650 mg Al Hydrox/Mg Hydrox/Simethicone (Aluminum/Magnesium Susp 30 Ml Udc) 30 ml PO Q4H PRN PRN Reason: GI Upset Stop: 03/31/23 17:14 Benztropine Mesylate (Benztropine Mesylate 1 Mg Tab) 1 mg PO HS PRN PRN Reason: muscle stiffness Stop: 03/31/23 21:59 Bismuth Subsalicylate (Bismuth Subsalicylate Liqd 236 Ml) 15 ml PO PRN PRN PRN Reason: Loose Stool Stop: 03/31/23 17:14 Chlorpromazine HCl (Chlorpromazine Hcl 25 Mg Tab) 75 mg PO HS JOSEMANUEL Stop: 04/24/23 21:59 Last Admin: 03/28/23 20:42 Dose: 75 mg Docusate Sodium (Docusate Sodium 100 Mg Cap) 200 mg PO BID JOSEMANUEL Stop: 03/31/23 20:59 Last Admin: 03/29/23 08:53 Dose: Not Given Haloperidol (Haloperidol 5 Mg Tab) 10 mg PO BID JOSEMANUEL Stop: 04/21/23 20:59 Last Admin: 03/29/23 08:51 Dose: 10 mg Haloperidol (Haloperidol 5 Mg Tab) 20 mg PO DAILYBL [facility] Stop: 04/22/23 11:59 Last Admin: 03/29/23 12:05 Dose: 20 mg Hydroxyzine HCl (Hydroxyzine Hcl 25 Mg Tab) 50 mg PO HSZ PRN PRN Reason: Insomnia Stop: 04/09/23 16:37 Hydroxyzine HCl (Hydroxyzine Hcl 25 Mg Tab) 25 mg PO Q4H PRN PRN Reason: Anxiety Stop: 04/09/23 16:37 Magnesium Hydroxide (Magnesium Hydroxide Susp 30 Ml Udc) 30 ml PO DAILY PRN PRN Reason: Constipation Stop: 04/09/23 16:37 Multivitamins/Minerals (Cerovite Adv Formula Tab) 1 tab PO QAM JOSEMANUEL Stop: 04/01/23 08:59 Last Admin: 03/29/23 08:51 Dose: 1 tab Pantoprazole Sodium (Pantoprazole 40 Mg Tab) 40 mg PO QAM JOSEMANUEL Stop: 04/01/23 08:59 Last Admin: 03/29/23 08:51 Dose: 40 mg Sodium Chloride (Sodium Chloride 0.65% Na Soln 45 Ml ([place])) 1 - 2 sprays NA PRN PRN PRN Reason: Nasal Dryness/Congestion Stop: 03/31/23 17:14 Venlafaxine HCl (Venlafaxine Hcl Xr 75 Mg Capxr) 75 mg PO QAM JOSEMANUEL Stop: 04/01/23 08:59 Last Admin: 03/29/23 08:51 Dose: 75 mg Vitamin D (Cholecalciferol 5,000 Units 125 Mcg Tab) 5,000 units PO QAM JOSEMANUEL Stop: 04/01/23 08:59 Last Admin: 03/29/23 08:51 Dose: 5,000 units Mental Health & Subst Abuse Tx Therapist Name of Therapist: Lala
[2023-03-29] MEDS: chlorproMAZINE HCL 25 MG TAB PO SCH (21:21)
[2023-03-30] MEDS: CHOLECALCIFEROL 5,000 UNITS 125 MCG TAB PO SCH (08:36)
[2023-03-30] MEDS: CEROVITE ADV FORMULA TAB PO SCH (08:37)
[2023-03-30] MEDS: haloperidoL 5 MG TAB PO SCH ×3 (08:37→21:24)
[2023-03-30] MEDS: PANTOprazole 40 MG TAB PO SCH (08:38)
[2023-03-30] MEDS: VENLAFAXINE HCL XR 75 MG CAPXR PO SCH (08:38)
[2023-03-30] MEDS: DOCUSATE SODIUM 100 MG CAP PO SCH ×2 (08:40→21:23)
--- NOTE | 2023-03-30 17:03 | Psychiatric Progress Note ---
Date of Service March 30, 2023 Impression / Recommendations Impression 52 yo man with schizophrenia with multiple recent psychiatric hospitalizations after each has eloped from his senior care. Spent about 3 days outside of a hospital setting within the last 4 months. note that main indication for inpatient stay at this point is failure of community resources and although patient not openly having much in the way of positive symptoms he has marked negative symptoms that interfere with his ability to care for self outside of the hospital setting and given the unusual nature under which he was injured and inability to be maintained at supervised living ([facility]), inpatient is currently the least restrictive level of care. Now on 304 commitment. MNPR due to psychosis and limited ability to tolerate peers and hx of aggression with delusions 03/30/2023: improving but unable to care for self outside of the hospital. Per review of previous orthopedic consultation by Dr. [facility] on 02/16/2023 recommendations of: "Consider repeat x-rays in 6 weeks, if he remains symptomatic. He can wean from the boot as tolerated. Recommend treating this edema with elevation and ice." 6 weeks will be on ~03/30/2023. If pain or swelling persists at that point will get repeat x-ray and involve orthopedics as needed. For now will continue with elevation, ice and ongoing use of the boot. Disposition remains largest challenge given multiple recent failed attempts of returning to his senior care due to significant increase in delusions, psychosis, and disorganized behavior as soon as he lives the structure of an inpatient setting. Plan: continue current meds and tx plan. foot xray. (1) Schizophrenia: (2) Paranoid: Inventory Assets Strengths: taking PO meds, cooperative with tx plan Needs: longer term hospitalization, medical monitoring Suicide Risk Level Suicide Risk Level: Moderate (q15 min suicide checks) Risk Factors Assessment Male: Yes : Yes Do You Have Access To A Gun?: No Mental Health Diagnoses: Yes Previous Attempt: Yes Previous Psychiatric Hospitalization: Yes Protective Factors Assessment Employed: No Interval History Identifying Information CASEY DAMIAN is a 52-year-old man who lives in a [facility] senior care with a history of schizophrenia, who eloped after returning to his senior care and was found by police wandering with concern for dehydration due to hot temperatures/humidity. He is on a 304 commitment as of 03/18/2023. Chief Complaint awaiting placement Review of Systems Sleep Information Total Hours of Sleep: 7.5 Meal Information Percent Meal Consumed - Breakfast: 100 Percent Meal Consumed - Lunch: 100 Percent Meal Consumed - Dinner: 100 Subjective Subjective Patient was seen & assessed and interval progress reviewed with nursing and social work. No acute issues overnight. attending groups today. Physical Exam Psychiatric alert, cooperative, any delusions are readily redirectiable, affect brighter, no SI/HI/fall Vital Signs (Past 24 Hours) Last Vital Signs Temp 36.6 C 03/30/23 06:45 Pulse 73 03/30/23 06:45 Resp 16 03/30/23 06:45 BP 94/64 L 03/30/23 06:45 Pulse Ox 98 03/25/23 06:41 O2 Del Method Room Air 03/25/23 06:41 Results & Data ([facility]) Current Inpatient Medications Current Inpatient Medications: Current Inpatient Medications Acetaminophen (Acetaminophen 325 Mg Tab) 650 mg PO Q4H PRN PRN Reason: Headache or Minor Fever Stop: 03/31/23 17:14 Last Admin: 03/20/23 14:02 Dose: 650 mg Al Hydrox/Mg Hydrox/Simethicone (Aluminum/Magnesium Susp 30 Ml Udc) 30 ml PO Q4H PRN PRN Reason: GI Upset Stop: 03/31/23 17:14 Benztropine Mesylate (Benztropine Mesylate 1 Mg Tab) 1 mg PO HS PRN PRN Reason: muscle stiffness Stop: 03/31/23 21:59 Bismuth Subsalicylate (Bismuth Subsalicylate Liqd 236 Ml) 15 ml PO PRN PRN PRN Reason: Loose Stool Stop: 03/31/23 17:14 Chlorpromazine HCl (Chlorpromazine Hcl 25 Mg Tab) 75 mg PO HS JOSEMANUEL Stop: 04/24/23 21:59 Last Admin: 03/29/23 21:21 Dose: 75 mg Docusate Sodium (Docusate Sodium 100 Mg Cap) 200 mg PO BID JOSEMANUEL Stop: 03/31/23 20:59 Last Admin: 03/30/23 08:40 Dose: Not Given Haloperidol (Haloperidol 5 Mg Tab) 10 mg PO BID JOSEMANUEL Stop: 04/21/23 20:59 Last Admin: 03/30/23 08:37 Dose: 10 mg Haloperidol (Haloperidol 5 Mg Tab) 20 mg PO DAILYBL JOSEMANUEL Stop: 04/22/23 11:59 Last Admin: 03/30/23 11:48 Dose: 20 mg Hydroxyzine HCl (Hydroxyzine Hcl 25 Mg Tab) 50 mg PO HSZ PRN PRN Reason: Insomnia Stop: 04/09/23 16:37 Hydroxyzine HCl (Hydroxyzine Hcl 25 Mg Tab) 25 mg PO Q4H PRN PRN Reason: Anxiety Stop: 04/09/23 16:37 Magnesium Hydroxide (Magnesium Hydroxide Susp 30 Ml Udc) 30 ml PO DAILY PRN PRN Reason: Constipation Stop: 04/09/23 16:37 Multivitamins/Minerals (Cerovite Adv Formula Tab) 1 tab PO QAM JOSEMANUEL Stop: 04/01/23 08:59 Last Admin: 03/30/23 08:37 Dose: 1 tab Pantoprazole Sodium (Pantoprazole 40 Mg Tab) 40 mg PO QAM JOSEMANUEL Stop: 04/01/23 08:59 Last Admin: 03/30/23 08:38 Dose: 40 mg Sodium Chloride (Sodium Chloride 0.65% Na Soln 45 Ml ([place])) 1 - 2 sprays NA PRN PRN PRN Reason: Nasal Dryness/Congestion Stop: 03/31/23 17:14 Venlafaxine HCl (Venlafaxine Hcl Xr 75 Mg Capxr) 75 mg PO QAM JOSEMANUEL Stop: 04/01/23 08:59 Last Admin: 03/30/23 08:38 Dose: 75 mg Vitamin D (Cholecalciferol 5,000 Units 125 Mcg Tab) 5,000 units PO QAM JOSEMANUEL Stop: 04/01/23 08:59 Last Admin: 03/30/23 08:36 Dose: 5,000 units Mental Health & Subst Abuse Tx Therapist Name of Therapist: Lala
[2023-03-30] MEDS: chlorproMAZINE HCL 25 MG TAB PO SCH (21:25)
--- NOTE | 2023-03-31 08:03 | XRay Report ---
XR foot LT 2V CLINICAL HISTORY: 6 week f/u from fracture COMPARISON: Left foot radiographs February 15, 2023. FINDINGS: Lateral displacement of the second metatarsal with respect to the intermediate cuneiform h as increased since radiographs of February 15, 2023. Displacement now measures 6 mm. There is suspected slight lateral displacement of the third metatarsal with respect to the lateral cuneiform. Callus fo rmation centered on the first tarsometatarsal joint is noted. Possible healing fracture of the medial cuneiform and base of the first metatarsal. Multiple small bone fragments are present. No additional fractures are identified. IMPRESSION: Findings consistent with Lisfranc fracture/dislocation with progressive dislocation of th e second tarsometatarsal joint. Multiple healing midfoot fractures, most evident at the first tarsome tatarsal joint. The findings may reflect developing osteoarthritis. A neuropathic arthropathy could a ppear similar although a post traumatic etiology is favored. Orthopedic consultation is recommended. ACT 112: Negative or not required by law. Electronically signed by: Thony Otto M.D. 03/31/2023 8:02 AM
[2023-03-31] MEDS: VENLAFAXINE HCL XR 75 MG CAPXR PO SCH (08:41)
[2023-03-31] MEDS: haloperidoL 5 MG TAB PO SCH ×3 (08:41→21:07)
[2023-03-31] MEDS: PANTOprazole 40 MG TAB PO SCH (08:46)
[2023-03-31] MEDS: CEROVITE ADV FORMULA TAB PO SCH (08:46)
[2023-03-31] MEDS: DOCUSATE SODIUM 100 MG CAP PO SCH ×2 (08:46→21:09)
[2023-03-31] MEDS: CHOLECALCIFEROL 5,000 UNITS 125 MCG TAB PO SCH (08:46)
--- NOTE | 2023-03-31 17:15 | Psychiatric Progress Note ---
Date of Service March 31, 2023 Impression / Recommendations Impression 52 yo man with schizophrenia with multiple recent psychiatric hospitalizations after each has eloped from his jail. Spent about 3 days outside of a hospital setting within the last 4 months. note that main indication for inpatient stay at this point is failure of community resources and although patient not openly having much in the way of positive symptoms he has marked negative symptoms that interfere with his ability to care for self outside of the hospital setting and given the unusual nature under which he was injured and inability to be maintained at supervised living ([facility]), inpatient is currently the least restrictive level of care. Now on 304 commitment. MNPR due to psychosis and limited ability to tolerate peers and hx of aggression with delusions Disposition remains largest challenge given multiple recent failed attempts of returning to his jail due to significant increase in delusions, psychosis, and disorganized behavior as soon as he lives the structure of an inpatient setting. 03/31/2023: increase in symptoms today Plan: continue current meds and tx plan. Overall, I spent a total of 54 minutes with this case, including review of chart/records, direct evaluation of the patient, counseling the patient, re- ordering medication, coordination with interdisciplinary team meeting around 30 day treatment review, review of Xray, coordination with ortho medical social consultant, and documentation. (1) Schizophrenia: (2) Paranoid: Inventory Assets Strengths: taking PO meds, cooperative with tx plan Needs: longer term hospitalization, medical monitoring Suicide Risk Level Suicide Risk Level: Moderate (q15 min suicide checks) Risk Factors Assessment Male: Yes : Yes Do You Have Access To A Gun?: No Mental Health Diagnoses: Yes Previous Attempt: Yes Previous Psychiatric Hospitalization: Yes Protective Factors Assessment Employed: No Interval History Identifying Information CASEY DAMIAN is a 52-year-old man who lives in a [place] [facility] jail with a history of schizophrenia, who eloped after returning to his jail and was found by police wandering with concern for dehydration due to hot temperatures/humidity. He is on a 304 commitment as of 03/18/2023. Chief Complaint "I've been writing" Review of Systems Sleep Information Total Hours of Sleep: 4.5 Meal Information Percent Meal Consumed - Breakfast: 100 Percent Meal Consumed - Lunch: 100 Percent Meal Consumed - Dinner: 100 Subjective Subjective Patient was seen & assessed and interval progress reviewed with treatment team. Remains pleasant but rates mood as lower today and is more confused in writings about his hallucinations. Seemingly overstimulated by manic peer. Physical Exam Psychiatric Orientation: alert Apperance: appropriately groomed Eye Contact: good eye contact and + fair eye contact Motor Behavior: no abnormal motor movements Speech: normal rate/rhythm/volume of speech Affect: + constricted affect Mood: + anxious mood; no depressed mood Thought Process: + looseness of associations Thought Content: + paranoid and + delusions Suicidal Thoughts: denies suicidal thoughts, denies suicidal plan and denies suicidal intent Homicidal Thoughts: denies homicidal thoughts Hallucinations: + auditory hallucinations; no visual hallucinations Estimated Intelligence: average estimated intelligence and consistent with education level Insight: + limited insight Judgment: + limited judgement Vital Signs (Past 24 Hours) Last Vital Signs Temp 36.5 C 03/31/23 06:44 Pulse 70 03/31/23 06:44 Resp 18 03/31/23 06:44 BP 106/72 03/31/23 06:44 Pulse Ox 98 03/25/23 06:41 O2 Del Method Room Air 03/25/23 06:41 Results & Data ([facility]) Current Inpatient Medications Current Inpatient Medications: Current Inpatient Medications Benztropine Mesylate (Benztropine Mesylate 1 Mg Tab) 1 mg PO HS PRN PRN Reason: muscle stiffness Stop: 03/31/23 21:59 Chlorpromazine HCl (Chlorpromazine Hcl 25 Mg Tab) 75 mg PO HS [facility] Stop: 04/24/23 21:59 Last Admin: 03/30/23 21:25 Dose: 75 mg Docusate Sodium (Docusate Sodium 100 Mg Cap) 200 mg PO BID [facility] Stop: 03/31/23 20:59 Last Admin: 03/31/23 08:46 Dose: Not Given Haloperidol (Haloperidol 5 Mg Tab) 10 mg PO BID [facility] Stop: 04/21/23 20:59 Last Admin: 03/31/23 08:41 Dose: 10 mg Haloperidol (Haloperidol 5 Mg Tab) 20 mg PO DAILYBL [facility] Stop: 04/22/23 11:59 Last Admin: 03/31/23 12:42 Dose: 20 mg Hydroxyzine HCl (Hydroxyzine Hcl 25 Mg Tab) 50 mg PO HSZ PRN PRN Reason: Insomnia Stop: 04/09/23 16:37 Hydroxyzine HCl (Hydroxyzine Hcl 25 Mg Tab) 25 mg PO Q4H PRN PRN Reason: Anxiety Stop: 04/09/23 16:37 Magnesium Hydroxide (Magnesium Hydroxide Susp 30 Ml Udc) 30 ml PO DAILY PRN PRN Reason: Constipation Stop: 04/09/23 16:37 Multivitamins/Minerals (Cerovite Adv Formula Tab) [facility]: 04/01/23 08:59 Last Admin: 03/31/23 08:46 Dose: Not Given Pantoprazole Sodium (Pantoprazole 40 Mg Tab) [facility] [place] Stop: 04/01/23 08:59 Last Admin: 03/31/23 08:46 Dose: Not Given Venlafaxine HCl (Venlafaxine Hcl Xr 75 Mg Capxr) [facility] Stop: 04/01/23 08:59 Last Admin: 03/31/23 08:41 Dose: 75 mg Vitamin D (Cholecalciferol 5,000 Units 125 Mcg Tab) 5,000 units PO QAM [facility] Stop: 04/01/23 08:59 Last Admin: 03/31/23 08:46 Dose: Not Given Mental Health & Subst Abuse Tx Therapist Name of Therapist: Lala
[2023-03-31] MEDS: chlorproMAZINE HCL 25 MG TAB PO SCH (21:07)
[2023-04-01] MEDS: haloperidoL 5 MG TAB PO SCH ×3 (08:35→21:11)
[2023-04-01] MEDS: PANTOprazole 40 MG TAB PO SCH (08:36)
[2023-04-01] MEDS: VENLAFAXINE HCL XR 75 MG CAPXR PO SCH (08:36)
[2023-04-01] MEDS: CEROVITE ADV FORMULA TAB PO SCH (08:36)
[2023-04-01] MEDS: DOCUSATE SODIUM 100 MG CAP PO SCH ×2 (08:39→21:14)
--- NOTE | 2023-04-01 10:57 | Psychiatric Progress Note ---
Date of Service April 01, 2023 Impression / Recommendations Impression 52 yo man with schizophrenia with multiple recent psychiatric hospitalizations after each has eloped from his senior care. Spent about 3 days outside of a hospital setting within the last 4 months. note that main indication for inpatient stay at this point is failure of community resources and although patient not openly having much in the way of positive symptoms he has marked negative symptoms that interfere with his ability to care for self outside of the hospital setting and given the unusual nature under which he was injured and inability to be maintained at supervised living ([facility]), inpatient is currently the least restrictive level of care. Now on 304 commitment. MNPR due to psychosis and limited ability to tolerate peers and hx of aggression with delusions Disposition remains largest challenge given multiple recent failed attempts of returning to his senior care due to significant increase in delusions, psychosis, and disorganized behavior as soon as he lives the structure of an inpatient setting. 04/01/2023: improving Overall, I spent a total of 22 minutes with this case, including review of chart/records, direct evaluation of the patient, counseling the patient, re- ordering medication, coordination with interdisciplinary team meeting around 30 day treatment review, review of Xray, coordination with ortho apprenticeship consultant, and documentation. (1) Schizophrenia: (2) Paranoid: Plan 04/01/2023: ortho cleared patient, he can discontinue boot at his own comfort, his residual foot deformity does not require surgery 03/28/2023: diversion meeting outcome is all community resources have been exhausted and patient will remain referred to [facility]. repeat foot x ray tomorrow. Patient desires d/c trazodone. [facility] to peer Dr. Jimenez discussing that patient has repeatedly refused clozaril and HAYES and prefers thorazine/haldol component, current doses are best for his BP. Discussed rationale for low dose Effexor XR. Patient has become agitated/disinhibited on higher doses of antidepressants in past so I would not titrate. 03/25/2023: * Consolidate thorazine to 75mg HS * Continue haldol 10mg qAM, 20mg miday and 10mg HS 03/22/2023: * increase haloperidol to 10 mg qAM, 20mg midday and 10mg HS- started this schedule 03/22/2023 * consolidate chlorpromazine to 25mg qAM and 50mg HS 03/21/2023: * continue haloperidol 10 mg TID - started this schedule 03/03/2023 * consolidate chlorpromazine to 25mg qAM and 50mg HS 03/20/2023: * continue haloperidol 10 mg TID - started this schedule 03/03/2023 * continue chlorpromazine 25 mg TID - resumed 03/17/2023 * change cogentin from HS scheduled to HS prn use for muscle stiffness to reduce polypharmacy 03/18/2023: * continue haloperidol 10 mg TID - started this schedule 03/03/2023 * continue chlorpromazine 25 mg TID - resumed 03/17/2023 * was committed for extended treatment at 304 hearing today, plan to pursue [facility] transfer 03/17/2023: * continue haloperidol 10 mg TID - started this schedule 03/03/2023 * increase chlorpromazine to 25 mg TID * probable 304 hearing on February 03/07/2023: Start trazodone 100mg HS po. Continue haldol 10mg TID po 03/03/2023: unable to resume thorazine, offered to try splitting Haldol to TID to see if any improvement in orthostasis. 03/02/2023: The patient was admitted to the [facility] ([facility]) on q15 min checks (behavioral with suicide precautions) for safety. The patient will participate in group, recreational, and milieu therapies and will be offered additional individual and family sessions as clinically appropriate. Continue to hold thorazine and monitor BP. Inventory Assets Strengths: taking PO meds, cooperative with tx plan Needs: longer term hospitalization, medical monitoring Suicide Risk Level Suicide Risk Level: Moderate (q15 min suicide checks) Risk Factors Assessment Male: Yes : Yes Do You Have Access To A Gun?: No Mental Health Diagnoses: Yes Previous Attempt: Yes Previous Psychiatric Hospitalization: Yes Protective Factors Assessment Employed: No Interval History Identifying Information CASEY DAMIAN is a 52-year-old man who lives in a [facility] senior care with a history of schizophrenia, who eloped after returning to his senior care and was found by police wandering with concern for dehydration due to hot temperatures/humidity. He is on a 304 commitment as of 03/18/2023. Chief Complaint calmer today Review of Systems Sleep Information Total Hours of Sleep: 6 Sleep Comments: pt on q-15 minute checks Meal Information Percent Meal Consumed - Breakfast: 100 Percent Meal Consumed - Lunch: 100 Percent Meal Consumed - Dinner: 100 Subjective Subjective Patient was seen & assessed and interval progress reviewed with nursing and social work. cooperative with ortho assessment. Physical Exam Psychiatric alert, cooperative, more smiling today, baseline fall continue, minimal paranoia, doesn't verbalize delusions at time of exam. Vital Signs (Past 24 Hours) Last Vital Signs Temp 36.7 C 04/01/23 06:35 Pulse 80 04/01/23 06:36 Resp 16 04/01/23 06:35 BP 120/79 04/01/23 06:36 Pulse Ox 98 03/25/23 06:41 O2 Del Method Room Air 03/25/23 06:41 Results & Data ([facility]) Current Inpatient Medications Current Inpatient Medications: Current Inpatient Medications Benztropine Mesylate (Benztropine Mesylate 1 Mg Tab) 1 mg PO HS PRN PRN Reason: muscle stiffness Stop: 05/01/23 21:59 Chlorpromazine HCl (Chlorpromazine Hcl 25 Mg Tab) 75 mg PO HS [facility] Stop: 04/24/23 21:59 Last Admin: 03/31/23 21:07 Dose: 75 mg Docusate Sodium (Docusate Sodium 100 Mg Cap) 200 mg PO HS [facility] Stop: 05/01/23 21:59 Haloperidol (Haloperidol 5 Mg Tab) 10 mg PO BID [facility] Stop: 04/21/23 20:59 Last Admin: 04/01/23 08:35 Dose: 10 mg Haloperidol (Haloperidol 5 Mg Tab) 20 mg PO DAILYBL [facility] Stop: 04/22/23 11:59 Last Admin: 03/31/23 12:42 Dose: 20 mg Hydroxyzine HCl (Hydroxyzine Hcl 25 Mg Tab) 50 mg PO HSZ PRN PRN Reason: Insomnia Stop: 04/09/23 16:37 Hydroxyzine HCl (Hydroxyzine Hcl 25 Mg Tab) 25 mg PO Q4H PRN PRN Reason: Anxiety Stop: 04/09/23 16:37 Magnesium Hydroxide (Magnesium Hydroxide Susp 30 Ml Udc) 30 ml PO DAILY PRN PRN Reason: Constipation Stop: 04/09/23 16:37 Venlafaxine HCl (Venlafaxine Hcl Xr 75 Mg Capxr) 75 mg PO QAM [facility] Stop: 05/01/23 08:59 Last Admin: 04/01/23 08:36 Dose: 75 mg Mental Health & Subst Abuse Tx Therapist Name of Therapist: Lala
[2023-04-01] MEDS: CHOLECALCIFEROL 5,000 UNITS 125 MCG TAB PO SCH (11:19)
--- NOTE | 2023-04-01 15:35 | Orthopedic Consultation ---
Date of Service April 01, 2023 Assessment & Plan (1) Tarsometatarsal (joint) (ligament) sprain: Umberto was evaluated today for his persistent left foot pain in light of an injury that he sustained on 02/15/2023 while running barefoot outside. His repeat xrays were taken as he is 6 weeks from the injury. He states that he is still symptomatic with the foot with extended activities. Would recommend the following: - Weightbearing and ROM as tolerated in the left lower extremity - activity as tolerated - he can wean from the post op shoe and transition into a shoe with good arch support. Can consider custom orthotics if pain persists. - No plans for surgical intervention. - Please reach out to podiatry or ortho foot and ankle specialist in the future. History of Present Illness Reason for Consultation: Left foot pain, Chronic left foot Lisfranc injury Requesting Physician: . Attending Physician: Zahida Levin MD Umberto is a 52-year-old male who is being consulted for his left foot. He has a history of schizophrenia, depression, psychotic disorder who was originally seen by Dr. Jackson on 02/16/2023 for his left foot injury that occurred after he was running barefoot on 02/15/2023. He was admitted for psychiatric reasons and currently is inpatient for the same. Originally at that time he had xray findings consistent with a chronic tarsometatarsal joint sprain and an acute appearing proximal phalanx fracture of the toe. He was recommended to be weightbearing as tolerated with a controlled active motion boot and crutches with repeat x-rays in 6 weeks, if he remained symptomatic. Updated xrays were taken on 03/30/2023 as the patient still had some foot swelling and pain with ambulation and orthopedics was re-consulted. At today's visit, he stated that he can walk 30 yards then would need to take a break due to the left foot pain. He states the pain is on the dorsum of the foot as well as the swelling. He is wearing his post op shoe. Denies any fever, chills or constitutional symptoms. Allergies Allergy/AdvReac Type Severity Reaction Status Date / Time No Known Allergies Allergy Verified 11/07/22 11:50 Home Medications Medication Instructions Recorded Confirmed Type benztropine 1 mg tablet 1 mg PO HS 02/15/23 02/25/23 History cholecalciferol (vitamin D3) 50 50 mcg PO QAM 02/15/23 02/25/23 History mcg (2,000 unit) tablet (Vitamin D3) cyproheptadine 4 mg tablet 4 mg PO TID 02/15/23 02/25/23 History docusate sodium 100 mg capsule 200 mg PO BID 02/15/23 02/25/23 History multivitamin with minerals (Daily 1 tab PO QAM 02/15/23 02/25/23 History Multivitamin-Minerals tablet) pantoprazole 40 mg tablet,delayed 40 mg PO QAM 02/15/23 02/25/23 History release venlafaxine 75 mg capsule,extended 75 mg PO QAM 02/15/23 02/25/23 History release 24 hr chlorpromazine 25 mg tablet 50 mg PO TID #100 tabs 02/23/23 02/25/23 Rx haloperidol 5 mg tablet 20 mg PO BID #60 tabs 02/23/23 02/25/23 Rx Past Med/Surg History Medical History Acute hyponatremia Rhinovirus infection Schizophrenia Self-injurious behavior Surgical History No pertinent past surgical history Social History Smoking Status: Current every day smoker Tobacco Type: Cigarettes Hx Alcohol Use: Yes Hx Substance Use: No Preferred Language: Mohawk Communication Ability: Effective 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 Physical Exam . Constitutional WD/WN, vitals as above Respiratory Normal respiratory effort, no respiratory distress. Cardiovascular Extremities: normal capillary refill Musculoskeletal Inspection of the foot and ankle reveals no open wounds, erythema. Mild edema and tenderness in the dorsum of the foot near the 2nd tarsometatarsal joint. Full ROM of the ankle joint in sitting position. Has full ROM of the toes. Can perform double heal lift but not single heal lift on affected foot. NV intact. Skin no rashes, warm and dry Psychiatric Orientation: alert and cooperative Eye Contact: good eye contact Results & Data Results & Data Laboratory Results . Diagnostic Findings Xray images of the left ankle on 03/30/2023 personally reviewed. Agree that there is a chronic Lisfranc injury findings at the 2nd tarsometatarsal joint that has progressed from images on 02/15/2023 however is stable. PG Care Time/CCT Total # of Minutes Spent Total Time Spent with Patient: Total time spent is greater than 50% in coordination of care (as documented) at patient's floor/unit and/or counseling patient: Coding Level of Care Code 97508 IN/OBS CONSULT LVL 3,45M Diagnoses Tarsometatarsal (joint) (ligament) sprain S93.629A
[2023-04-01] MEDS: chlorproMAZINE HCL 25 MG TAB PO PRN (18:52)
[2023-04-01] MEDS: chlorproMAZINE HCL 25 MG TAB PO SCH (21:11)
[2023-04-02] MEDS: hydrOXYzine HCl 25 MG TAB PO PRN (02:24)
[2023-04-02] MEDS: haloperidoL 5 MG TAB PO SCH ×3 (09:12→21:34)
[2023-04-02] MEDS: VENLAFAXINE HCL XR 75 MG CAPXR PO SCH (09:12)
[2023-04-02] MEDS: chlorproMAZINE HCL 25 MG TAB PO PRN (10:23)
[2023-04-02] MEDS ORDERED: HALOPERIDOL DECANOATE INJ 50 MG/ML VIAL IM ONE (11:48)
--- NOTE | 2023-04-02 15:04 | Psychiatric Progress Note ---
Date of Service April 02, 2023 Impression / Recommendations Impression 52 yo man with schizophrenia with multiple recent psychiatric hospitalizations after each has eloped from his half-way. Spent about 3 days outside of a hospital setting within the last 4 months. note that main indication for inpatient stay at this point is failure of community resources and although patient not openly having much in the way of positive symptoms he has marked negative symptoms that interfere with his ability to care for self outside of the hospital setting and given the unusual nature under which he was injured and inability to be maintained at supervised living ([facility]), inpatient is currently the least restrictive level of care. Now on 304 commitment. MNPR due to psychosis and limited ability to tolerate peers and hx of aggression with delusions Disposition remains largest challenge given multiple recent failed attempts of returning to his half-way due to significant increase in delusions, psychosis, and disorganized behavior as soon as he lives the structure of an inpatient setting. 04/02/2023: increased hallucinations between med doses Overall, I spent a total of 37 minutes with this case, including review of chart, direct evaluation of the patient, counseling the patient, ordering medication, coordination with nursing, interdisciplinary team meeting,and documentation. (1) Schizophrenia: (2) Paranoid: Plan 04/02/2023: thorazine 25 mg am and pm meal, 50 mg hs with additional 25 mg prn. Patient now agreeable to Haldol dec. Will decrease to 10 mg TID as interval increase of midday dose to 20 mg has not helped with pm breakthrough. Will load 200 mg dose today with additional 100-200 mg loading and PO Haldol taper per Dr. Smith. 04/01/2023: ortho cleared patient, he can discontinue boot at his own comfort, his residual foot deformity does not require surgery 03/28/2023: diversion meeting outcome is all community resources have been exhausted and patient will remain referred to [facility]. repeat foot x ray tomorrow. Patient desires d/c trazodone. completed quality case review with [facility] peer to peer Dr. Jimenez discussing that patient has repeatedly refused clozaril and HAYES and prefers thorazine/haldol component, current doses are best for his BP. Discussed rationale for low dose Effexor XR. Patient has become agitated/disinhibited on higher doses of antidepressants in past so I would not titrate. 03/25/2023: * Consolidate thorazine to 75mg HS * Continue haldol 10mg qAM, 20mg miday and 10mg HS 03/22/2023: * increase haloperidol to 10 mg qAM, 20mg midday and 10mg HS- started this schedule 03/22/2023 * consolidate chlorpromazine to 25mg qAM and 50mg HS 03/21/2023: * continue haloperidol 10 mg TID - started this schedule 03/03/2023 * consolidate chlorpromazine to 25mg qAM and 50mg HS 03/20/2023: * continue haloperidol 10 mg TID - started this schedule 03/03/2023 * continue chlorpromazine 25 mg TID - resumed 03/17/2023 * change cogentin from HS scheduled to HS prn use for muscle stiffness to reduce polypharmacy 03/18/2023: * continue haloperidol 10 mg TID - started this schedule 03/03/2023 * continue chlorpromazine 25 mg TID - resumed 03/17/2023 * was committed for extended treatment at 304 hearing today, plan to pursue [facility] transfer 03/17/2023: * continue haloperidol 10 mg TID - started this schedule 03/03/2023 * increase chlorpromazine to 25 mg TID * probable 304 hearing on February 03/07/2023: Start trazodone 100mg HS po. Continue haldol 10mg TID po 03/03/2023: unable to resume thorazine, offered to try splitting Haldol to TID to see if any improvement in orthostasis. 03/02/2023: The patient was admitted to the [facility] ([facility] inpatient mental health unit) on q15 min checks (behavioral with suicide precautions) for safety. The patient will participate in group, recreational, and milieu therapies and will be offered additional individual and family sessions as clinically appropriate. Continue to hold thorazine and monitor BP. Inventory Assets Strengths: taking PO meds, cooperative with tx plan Needs: longer term hospitalization, medical monitoring Suicide Risk Level Suicide Risk Level: Moderate (q15 min suicide checks) Risk Factors Assessment Male: Yes : Yes Do You Have Access To A Gun?: No Mental Health Diagnoses: Yes Previous Attempt: Yes Previous Psychiatric Hospitalization: Yes Protective Factors Assessment Employed: No Interval History Identifying Information CASEY DAMIAN is a 52-year-old man who lives in a [place] psychiatric half-way with a history of schizophrenia, who eloped after returning to his half-way and was found by police wandering with concern for dehydration due to hot temperatures/humidity. He is on a 304 commitment as of 03/18/2023. Chief Complaint "The voices are bad." Review of Systems Sleep Information Total Hours of Sleep: 7.5 Sleep Comments: pt on q-15 minute checks Meal Information Percent Meal Consumed - Breakfast: 100 Percent Meal Consumed - Lunch: 100 Percent Meal Consumed - Dinner: 100 Subjective Subjective Patient was seen & assessed and interval progress reviewed with nursing and social work. Patient appears superficially pleasant but was more restless at the door last pm. He was ringing the mendoza and placed back on elopement precautions. He stated the voices are telling him he's bad, to run, etc. He would like to con tinue to work on decreasing the number of pills he takes. Continues to find prn thorazine helpful and desires to return to daytime thorazine dosing. Physical Exam Psychiatric Orientation: alert and oriented x 3 Apperance: appropriately dressed and appropriately groomed Eye Contact: + fair eye contact Motor Behavior: no abnormal motor movements Speech: normal rate/rhythm/volume of speech Affect: euthymic affect Mood: + anxious mood; no depressed mood Thought Process: + concrete thought process Thought Content: + paranoid and + delusions Suicidal Thoughts: denies suicidal thoughts Homicidal Thoughts: denies homicidal thoughts Hallucinations: + auditory hallucinations; no visual hallucinations Cognition: language grossly intact; + attention not intact Estimated Intelligence: consistent with education level Insight: + limited insight Judgment: + limited judgement Vital Signs (Past 24 Hours) Last Vital Signs Temp 36.6 C 04/02/23 06:50 Pulse 87 04/02/23 06:51 Resp 16 04/02/23 06:50 BP 123/82 04/02/23 06:51 Pulse Ox 98 03/25/23 06:41 O2 Del Method Room Air 03/25/23 06:41 Results & Data ([facility]) Current Inpatient Medications Current Inpatient Medications: Current Inpatient Medications Benztropine Mesylate (Benztropine Mesylate 1 Mg Tab) 1 mg PO HS PRN PRN Reason: muscle stiffness Stop: 05/01/23 21:59 Chlorpromazine HCl (Chlorpromazine Hcl 25 Mg Tab) 25 mg PO Q6 PRN PRN Reason: psychosis Stop: 05/01/23 18:21 Last Admin: 04/02/23 10:23 Dose: 25 mg Chlorpromazine HCl (Chlorpromazine Hcl 25 Mg Tab) 50 mg PO HS JOSEMANUEL Stop: 05/02/23 21:59 Chlorpromazine HCl (Chlorpromazine Hcl 25 Mg Tab) 25 mg PO BIDM JOSEMANUEL Stop: 05/02/23 17:44 Docusate Sodium (Docusate Sodium 100 Mg Cap) 200 mg PO HS JOSEMANUEL Stop: 05/01/23 21:59 Last Admin: 04/01/23 21:14 Dose: Not Given Haloperidol (Haloperidol 5 Mg Tab) 10 mg PO TID JOSEMANUEL Stop: 05/02/23 13:59 Last Admin: 04/02/23 14:27 Dose: 10 mg Hydroxyzine HCl (Hydroxyzine Hcl 25 Mg Tab) 50 mg PO HSZ PRN PRN Reason: Insomnia Stop: 04/09/23 16:37 Last Admin: 04/02/23 02:24 Dose: 50 mg Hydroxyzine HCl (Hydroxyzine Hcl 25 Mg Tab) 25 mg PO Q4H PRN PRN Reason: Anxiety Stop: 04/09/23 16:37 Magnesium Hydroxide (Magnesium Hydroxide Susp 30 Ml Udc) 30 ml PO DAILY PRN PRN Reason: Constipation Stop: 04/09/23 16:37 Venlafaxine HCl (Venlafaxine Hcl Xr 75 Mg Capxr) 75 mg PO QAM JOSEMANUEL Stop: 05/01/23 08:59 Last Admin: 04/02/23 09:12 Dose: 75 mg Mental Health & Subst Abuse Tx Therapist Name of Therapist: Lala
[2023-04-02] MEDS: chlorproMAZINE HCL 25 MG TAB PO SCH ×2 (17:27→21:34)
[2023-04-02] MEDS: DOCUSATE SODIUM 100 MG CAP PO SCH (21:35)
[2023-04-03] MEDS: chlorproMAZINE HCL 25 MG TAB PO SCH ×3 (09:05→21:39)
[2023-04-03] MEDS: VENLAFAXINE HCL XR 75 MG CAPXR PO SCH (09:05)
[2023-04-03] MEDS: haloperidoL 5 MG TAB PO SCH ×3 (09:05→21:39)
--- NOTE | 2023-04-03 10:19 | Psychiatric Progress Note ---
Date of Service April 03, 2023 Impression / Recommendations Impression 52 yo man with schizophrenia with multiple recent psychiatric hospitalizations after each has eloped from his fpc. Spent about 3 days outside of a hospital setting within the last 4 months. note that main indication for inpatient stay at this point is failure of community resources and although patient not openly having much in the way of positive symptoms he has marked negative symptoms that interfere with his ability to care for self outside of the hospital setting and given the unusual nature under which he was injured and inability to be maintained at supervised living ([facility]), inpatient is currently the least restrictive level of care. Now on 304 commitment. MNPR due to psychosis and limited ability to tolerate peers and hx of aggression with delusions Disposition remains largest challenge given multiple recent failed attempts of returning to his fpc due to significant increase in delusions, psychosis, and disorganized behavior as soon as he lives the structure of an inpatient setting. 04/03/2023: ongoing auditory hallucinations, tolerated haldol decanoate dose yesterday, will continue with po haldol for now given his ongoing symptoms of psychosis which cause him significant psychic distress. Overall, I spent a total of 35 minutes with this case including review of chart records, direct evaluation of the patient at bedside, counseling the patient, discussion during interdisciplinary treatment rounds, risk assessment, and documentation in the electronic health record. (1) Schizophrenia: (2) Paranoid: Plan 04/03/2023: * thorazine 25mg qAM, 25mg qdinner, 50mg HS * haldol decanoate 200mg HAYES-- received on 04/03/2023 * haldol po 10mg TID * Effexor ER 75mg daily 04/02/2023: thorazine 25 mg am and pm meal, 50 mg hs with additional 25 mg prn. Patient now agreeable to Haldol dec. Will decrease to 10 mg TID as interval increase of midday dose to 20 mg has not helped with pm breakthrough. Will load 200 mg dose today with additional 100-200 mg loading and PO Haldol taper per Dr. Smith. 04/01/2023: ortho cleared patient, he can discontinue boot at his own comfort, his residual foot deformity does not require surgery 03/28/2023: diversion meeting outcome is all community resources have been exhausted and patient will remain referred to [facility]. repeat foot x ray tomorrow. Patient desires d/c trazodone. completed quality case review with [facility] peer to peer Dr. Jimenez discussing that patient has repeatedly refused clozaril and HAYES and prefers thorazine/haldol component, current doses are best for his BP. Discussed rationale for low dose Effexor XR. Patient has become agitated/disinhibited on higher doses of antidepressants in past so I would not titrate. 03/25/2023: * Consolidate thorazine to 75mg HS * Continue haldol 10mg qAM, 20mg miday and 10mg HS 03/22/2023: * increase haloperidol to 10 mg qAM, 20mg midday and 10mg HS- started this schedule 03/22/2023 * consolidate chlorpromazine to 25mg qAM and 50mg HS 03/21/2023: * continue haloperidol 10 mg TID - started this schedule 03/03/2023 * consolidate chlorpromazine to 25mg qAM and 50mg HS 03/20/2023: * continue haloperidol 10 mg TID - started this schedule 03/03/2023 * continue chlorpromazine 25 mg TID - resumed 03/17/2023 * change cogentin from HS scheduled to HS prn use for muscle stiffness to reduce polypharmacy 03/18/2023: * continue haloperidol 10 mg TID - started this schedule 03/03/2023 * continue chlorpromazine 25 mg TID - resumed 03/17/2023 * was committed for extended treatment at 304 hearing today, plan to pursue [facility] transfer 03/17/2023: * continue haloperidol 10 mg TID - started this schedule 03/03/2023 * increase chlorpromazine to 25 mg TID * probable 304 hearing on February 03/07/2023: Start trazodone 100mg HS po. Continue haldol 10mg TID po 03/03/2023: unable to resume thorazine, offered to try splitting Haldol to TID to see if any improvement in orthostasis. 03/02/2023: The patient was admitted to the [facility]) on q15 min checks (behavioral with suicide precautions) for safety. The patient will participate in group, recreational, and milieu therapies and will be offered additional individual and family sessions as clinically appropriate. Continue to hold thorazine and monitor BP. Inventory Assets Strengths: taking PO meds, cooperative with tx plan Needs: longer term hospitalization, medical monitoring Suicide Risk Level Suicide Risk Level: Moderate (q15 min suicide checks) (ongoing psychosis but has been consistently denying SI, agrees to let staff know if he feels unsafe or feels in need of additional support) Risk Factors Assessment Male: Yes : Yes Do You Have Access To A Gun?: No Mental Health Diagnoses: Yes Previous Attempt: Yes Previous Psychiatric Hospitalization: Yes Protective Factors Assessment Employed: No Interval History Identifying Information CASEY DAMIAN is a 52-year-old man who lives in a [place] [facility] fpc with a history of schizophrenia, who eloped after returning to his fpc and was found by police wandering with concern for dehydration due to hot temperatures/humidity. He is on a 304 commitment as of 03/18/2023. Chief Complaint "I'm ok, I have nasty words in my head". Review of Systems Sleep Information Total Hours of Sleep: 6 Sleep Comments: pt on q-15 minute checks Meal Information Percent Meal Consumed - Breakfast: 100 Percent Meal Consumed - Lunch: 100 Percent Meal Consumed - Dinner: 100 Subjective Subjective Patient was seen & assessed and interval progress reviewed with treatment team nursing and social work. Doing exercises this morning. Received haldol decanoate yesterday. Told staff that he broke his glasses because the voices were telling him means things about wearing them. Attending groups, played the switch and watched a movie with peers. Today reports ongoing voices which have been saying "swearing and racist thin gs". Denies any side effects from haldol decanoate yesterday. Physical Exam Psychiatric Orientation: alert and oriented x 3 Apperance: appropriately dressed and appropriately groomed Eye Contact: + fair eye contact Motor Behavior: no abnormal motor movements Speech: normal rate/rhythm/volume of speech Affect: + anxious affect Mood: + anxious mood; no depressed mood Thought Process: + concrete thought process Thought Content: + paranoid and + delusions Suicidal Thoughts: denies suicidal thoughts Homicidal Thoughts: denies homicidal thoughts Hallucinations: + auditory hallucinations; no visual hallucinations Cognition: language grossly intact; + attention not intact Estimated Intelligence: consistent with education level Insight: + limited insight Judgment: + limited judgement Vital Signs (Past 24 Hours) Last Vital Signs Temp 36.9 C 04/03/23 06:58 Pulse 80 04/03/23 06:58 Resp 16 04/03/23 06:58 BP 119/79 04/03/23 06:58 Pulse Ox 98 04/03/23 06:58 O2 Del Method Room Air 04/03/23 06:58 Results & Data ([facility]) Current Inpatient Medications Current Inpatient Medications: Current Inpatient Medications Benztropine Mesylate (Benztropine Mesylate 1 Mg Tab) 1 mg PO HS PRN PRN Reason: muscle stiffness Stop: 05/01/23 21:59 Chlorpromazine HCl (Chlorpromazine Hcl 25 Mg Tab) 25 mg PO Q6 PRN PRN Reason: psychosis Stop: 05/01/23 18:21 Last Admin: 04/02/23 10:23 Dose: 25 mg Chlorpromazine HCl (Chlorpromazine Hcl 25 Mg Tab) 50 mg PO HS JOSEMANUEL Stop: 05/02/23 21:59 Last Admin: 04/02/23 21:34 Dose: 50 mg Chlorpromazine HCl (Chlorpromazine Hcl 25 Mg Tab) 25 mg PO BIDM JOSEMANUEL Stop: 05/02/23 17:44 Last Admin: 04/03/23 09:05 Dose: 25 mg Docusate Sodium (Docusate Sodium 100 Mg Cap) 200 mg PO HS JOSEMANUEL Stop: 05/01/23 21:59 Last Admin: 04/02/23 21:35 Dose: Not Given Haloperidol (Haloperidol 5 Mg Tab) 10 mg PO TID JOSEMANUEL Stop: 05/02/23 13:59 Last Admin: 04/03/23 09:05 Dose: 10 mg Hydroxyzine HCl (Hydroxyzine Hcl 25 Mg Tab) 50 mg PO HSZ PRN PRN Reason: Insomnia Stop: 04/09/23 16:37 Last Admin: 04/02/23 02:24 Dose: 50 mg Hydroxyzine HCl (Hydroxyzine Hcl 25 Mg Tab) 25 mg PO Q4H PRN PRN Reason: Anxiety Stop: 04/09/23 16:37 Magnesium Hydroxide (Magnesium Hydroxide Susp 30 Ml Udc) 30 ml PO DAILY PRN PRN Reason: Constipation Stop: 04/09/23 16:37 Venlafaxine HCl (Venlafaxine Hcl Xr 75 Mg Capxr) 75 mg PO QAM JOSEMANUEL Stop: 05/01/23 08:59 Last Admin: 04/03/23 09:05 Dose: 75 mg Mental Health & Subst Abuse Tx Therapist Name of Therapist: Lala
[2023-04-03] MEDS: DOCUSATE SODIUM 100 MG CAP PO SCH (21:38)
[2023-04-04] MEDS: haloperidoL 5 MG TAB PO SCH ×3 (09:22→21:01)
[2023-04-04] MEDS: chlorproMAZINE HCL 25 MG TAB PO SCH ×3 (09:22→21:01)
[2023-04-04] MEDS: VENLAFAXINE HCL XR 75 MG CAPXR PO SCH (09:23)
--- NOTE | 2023-04-04 09:55 | Psychiatric Progress Note ---
Date of Service April 04, 2023 Impression / Recommendations Impression 52 yo man with schizophrenia with multiple recent psychiatric hospitalizations after each has eloped from his detention. Spent about 3 days outside of a hospital setting within the last 4 months. note that main indication for inpatient stay at this point is failure of community resources and although patient not openly having much in the way of positive symptoms he has marked negative symptoms that interfere with his ability to care for self outside of the hospital setting and given the unusual nature under which he was injured and inability to be maintained at supervised living ([facility]), inpatient is currently the least restrictive level of care. Now on 304 commitment. MNPR due to psychosis and limited ability to tolerate peers and hx of aggression with delusions Disposition remains largest challenge given multiple recent failed attempts of returning to his detention due to significant increase in delusions, psychosis, and disorganized behavior as soon as he lives the structure of an inpatient setting. 04/04/2023: more social overall but still with periods of intensifying auditory hallucinations and subsequent mood changes even with high dose dual antipsychotic therapy. Given his level of distress and impairment from the voices discussed option to consider further dose of haldol decanoate (10x his oral dose would be 400mg HAYES per month, consider additional 100mg HAYES this month and could titrate further if needed next month). For now will continue with po haldol overlap given ongoing symptoms of psychosis which cause him significant psychic distress. Overall, I spent a total of 35 minutes with this case including review of chart records, direct evaluation of the patient at bedside, counseling the patient, discussion during interdisciplinary treatment rounds, risk assessment, and documentation in the electronic health record. (1) Schizophrenia: (2) Paranoid: Plan 04/04/2023: Continue current medications and tx plan. Consider additional dose of haldol decanoate 100-200mg HAYES tomorrow. 04/03/2023: * thorazine 25mg qAM, 25mg qdinner, 50mg HS * haldol decanoate 200mg HAYES-- received on 04/03/2023 * haldol po 10mg TID * Effexor ER 75mg daily 04/02/2023: thorazine 25 mg am and pm meal, 50 mg hs with additional 25 mg prn. Patient now agreeable to Haldol dec. Will decrease to 10 mg TID as interval increase of midday dose to 20 mg has not helped with pm breakthrough. Will load 200 mg dose today with additional 100-200 mg loading and PO Haldol taper per Dr. Smith. 04/01/2023: ortho cleared patient, he can discontinue boot at his own comfort, his residual foot deformity does not require surgery 03/28/2023: diversion meeting outcome is all community resources have been exhausted and patient will remain referred to [facility] hospital. repeat foot x ray tomorrow. Patient desires d/c trazodone. completed quality case review with [facility] peer to peer Dr. Jimenez discussing that patient has repeatedly refused clozaril and HAYES and prefers thorazine/haldol component, current doses are best for his BP. Discussed rationale for low dose Effexor XR. Patient has become agitated/disinhibited on higher doses of antidepressants in past so I would not titrate. 03/25/2023: * Consolidate thorazine to 75mg HS * Continue haldol 10mg qAM, 20mg miday and 10mg HS 03/22/2023: * increase haloperidol to 10 mg qAM, 20mg midday and 10mg HS- started this schedule 03/22/2023 * consolidate chlorpromazine to 25mg qAM and 50mg HS 03/21/2023: * continue haloperidol 10 mg TID - started this schedule 03/03/2023 * consolidate chlorpromazine to 25mg qAM and 50mg HS 03/20/2023: * continue haloperidol 10 mg TID - started this schedule 03/03/2023 * continue chlorpromazine 25 mg TID - resumed 03/17/2023 * change cogentin from HS scheduled to HS prn use for muscle stiffness to reduce polypharmacy 03/18/2023: * continue haloperidol 10 mg TID - started this schedule 03/03/2023 * continue chlorpromazine 25 mg TID - resumed 03/17/2023 * was committed for extended treatment at 304 hearing today, plan to pursue [facility] hospital transfer 03/17/2023: * continue haloperidol 10 mg TID - started this schedule 03/03/2023 * increase chlorpromazine to 25 mg TID * probable 304 hearing on February 03/07/2023: Start trazodone 100mg HS po. Continue haldol 10mg TID po 03/03/2023: unable to resume thorazine, offered to try splitting Haldol to TID to see if any improvement in orthostasis. 03/02/2023: The patient was admitted to the [facility] ([facility] mental health unit) on q15 min checks (behavioral with suicide precautions) for safety. The patient will participate in group, recreational, and milieu therapies and will be offered additional individual and family sessions as clinically appropriate. Continue to hold thorazine and monitor BP. Inventory Assets Strengths: taking PO meds, cooperative with tx plan Needs: longer term hospitalization, medical monitoring Suicide Risk Level Suicide Risk Level: Moderate (q15 min suicide checks) (ongoing psychosis but has been consistently denying SI, agrees to let staff know if he feels unsafe or feels in need of additional support) Risk Factors Assessment Male: Yes : Yes Do You Have Access To A Gun?: No Mental Health Diagnoses: Yes Previous Attempt: Yes Previous Psychiatric Hospitalization: Yes Protective Factors Assessment Employed: No Interval History Identifying Information CASEY DAMIAN is a 52-year-old man who lives in a [facility] detention with a history of schizophrenia, who eloped after returning to his detention and was found by police wandering with concern for dehydration due to hot temperatures/humidity. He is on a 304 commitment as of 03/18/2023. Chief Complaint "I was doing ok, something shifted". Review of Systems Sleep Information Total Hours of Sleep: 5.5 Sleep Comments: pt on q-15 minute checks Meal Information Percent Meal Consumed - Breakfast: 100 Percent Meal Consumed - Lunch: 100 Percent Meal Consumed - Dinner: 100 Subjective Subjective Patient was seen & assessed and interval progress reviewed with treatment team nursing and social work. Has been sitting with peers at lunch. Attended some groups yesterday. This morning played Miller with peers for almost 2 hours and then ate lunch but shortly after stated his mood shifted noting "everything caved in". When asked about more specifics he describes worsening of the voices which have been swearing and saying mean things about other people to him. He wonders about getting a mid-day dose of thorazine as he finds this can help. Denies any side effects from recent haldol decanoate injection, no evidence for EPS side effects. Physical Exam Psychiatric Orientation: alert and oriented x 3 Apperance: appropriately dressed and appropriately groomed Eye Contact: + fair eye contact Motor Behavior: no abnormal motor movements Speech: normal rate/rhythm/volume of speech Affect: + anxious affect Mood: + depressed mood and + anxious mood Thought Process: + concrete thought process Thought Content: + paranoid and + delusions Suicidal Thoughts: denies suicidal thoughts Homicidal Thoughts: denies homicidal thoughts Hallucinations: + auditory hallucinations; no visual hallucinations Cognition: language grossly intact; + attention not intact Estimated Intelligence: consistent with education level Insight: + limited insight Judgment: + limited judgement Vital Signs (Past 24 Hours) Last Vital Signs Temp 36.9 C 04/04/23 06:54 Pulse 65 04/04/23 06:54 Resp 16 04/04/23 06:54 BP 104/73 04/04/23 06:54 Pulse Ox 97 04/04/23 06:54 O2 Del Method Room Air 04/04/23 06:54 Results & Data ([facility]) Current Inpatient Medications Current Inpatient Medications: Current Inpatient Medications Benztropine Mesylate (Benztropine Mesylate 1 Mg Tab) 1 mg PO HS PRN PRN Reason: muscle stiffness Stop: 05/01/23 21:59 Chlorpromazine HCl (Chlorpromazine Hcl 25 Mg Tab) 25 mg PO Q6 PRN PRN Reason: psychosis Stop: 05/01/23 18:21 Last Admin: 04/02/23 10:23 Dose: 25 mg Chlorpromazine HCl (Chlorpromazine Hcl 25 Mg Tab) 50 mg PO HS JOSEMANUEL Stop: 05/02/23 21:59 Last Admin: 04/03/23 21:39 Dose: 50 mg Chlorpromazine HCl (Chlorpromazine Hcl 25 Mg Tab) 25 mg PO BIDM JOSEMANUEL Stop: 05/02/23 17:44 Last Admin: 04/04/23 09:22 Dose: 25 mg Docusate Sodium (Docusate Sodium 100 Mg Cap) 200 mg PO HS JOSEMANUEL Stop: 05/01/23 21:59 Last Admin: 04/03/23 21:38 Dose: 200 mg Haloperidol (Haloperidol 5 Mg Tab) 10 mg PO TID JOSEMANUEL Stop: 05/02/23 13:59 Last Admin: 04/04/23 09:22 Dose: 10 mg Hydroxyzine HCl (Hydroxyzine Hcl 25 Mg Tab) 50 mg PO HSZ PRN PRN Reason: Insomnia Stop: 04/09/23 16:37 Last Admin: 04/02/23 02:24 Dose: 50 mg Hydroxyzine HCl (Hydroxyzine Hcl 25 Mg Tab) 25 mg PO Q4H PRN PRN Reason: Anxiety Stop: 04/09/23 16:37 Magnesium Hydroxide (Magnesium Hydroxide Susp 30 Ml Udc) 30 ml PO DAILY PRN PRN Reason: Constipation Stop: 04/09/23 16:37 Venlafaxine HCl (Venlafaxine Hcl Xr 75 Mg Capxr) 75 mg PO QAM JOSEMANUEL Stop: 05/01/23 08:59 Last Admin: 04/04/23 09:23 Dose: 75 mg Mental Health & Subst Abuse Tx Therapist Name of Therapist: Lala
[2023-04-04] MEDS: chlorproMAZINE HCL 25 MG TAB PO PRN ×2 (13:48→19:36)
[2023-04-04] MEDS: DOCUSATE SODIUM 100 MG CAP PO SCH (21:02)
[2023-04-04] MEDS: hydrOXYzine HCl 25 MG TAB PO PRN (23:30)
[2023-04-05] MEDS: chlorproMAZINE HCL 25 MG TAB PO SCH ×3 (08:44→20:33)
[2023-04-05] MEDS: haloperidoL 5 MG TAB PO SCH ×3 (08:44→20:32)
[2023-04-05] MEDS: VENLAFAXINE HCL XR 75 MG CAPXR PO SCH (08:46)
--- NOTE | 2023-04-05 09:20 | Psychiatric Progress Note ---
Date of Service April 05, 2023 Impression / Recommendations Impression 52 yo man with schizophrenia with multiple recent psychiatric hospitalizations after each has eloped from his long-term. Spent about 3 days outside of a hospital setting within the last 4 months. note that main indication for inpatient stay at this point is failure of community resources and although patient not openly having much in the way of positive symptoms he has marked negative symptoms that interfere with his ability to care for self outside of the hospital setting and given the unusual nature under which he was injured and inability to be maintained at supervised living ([facility]), inpatient is currently the least restrictive level of care. Now on 304 commitment. MNPR due to psychosis and limited ability to tolerate peers and hx of aggression with delusions Disposition remains largest challenge given multiple recent failed attempts of returning to his long-term due to significant increase in delusions, psychosis, and disorganized behavior as soon as he lives the structure of an inpatient setting. 04/05/2023: difficult evening and overnight due to increased auditory hallucinations which remain very problematic and bothersome to him and negatively impact his mood. He finds some relief from the prn thorazine. He consents to getting an additional haldol decanoate injection for total of 400mg (another 200mg HAYES) as this scales with 10x his po dose of 40mg daily. Reviewed side effects including but not limited to: EPS (acute dystonia, tardive dyskinesia), metabolic risk factors, cardiac risks, AIMS repeat done with score of 0. He states understanding of these side effects and understands and agrees to let staff know immediately if he develops any muscle stiffness or difficulty swallowing/tongue swelling/difficulty moving his eyes or other motor symptoms. For now will also continue with po haldol overlap given ongoing symptoms of psychosis which cause him significant psychic distress. Overall, I spent a total of 45 minutes with this case including review of chart records, direct evaluation of the patient at bedside, counseling the patient, discussion during interdisciplinary treatment rounds, risk assessment, and documentation in the electronic health record. (1) Schizophrenia: (2) Paranoid: Plan 04/05/2023: Additional Haldol decanoate 200mg HAYES, continue po thorazine and po haldol 04/04/2023: Continue current medications and tx plan. Consider additional dose of haldol decanoate 100-200mg HAYES tomorrow. 04/03/2023: * thorazine 25mg qAM, 25mg qdinner, 50mg HS * haldol decanoate 200mg HAYES-- received on 04/03/2023 * haldol po 10mg TID * Effexor ER 75mg daily 04/02/2023: thorazine 25 mg am and pm meal, 50 mg hs with additional 25 mg prn. Patient now agreeable to Haldol dec. Will decrease to 10 mg TID as interval increase of midday dose to 20 mg has not helped with pm breakthrough. Will load 200 mg dose today with additional 100-200 mg loading and PO Haldol taper per Dr. Smith. 04/01/2023: ortho cleared patient, he can discontinue boot at his own comfort, his residual foot deformity does not require surgery 03/28/2023: diversion meeting outcome is all community resources have been exhausted and patient will [facility]. repeat foot x ray tomorrow. Patient desires d/c trazodone. completed quality case review with [facility] peer to peer Dr. Jimenez discussing that patient has repeatedly refused clozaril and HAYES and prefers thorazine/haldol component, current doses are best for his BP. Discussed rationale for low dose Effexor XR. Patient has become agitated/disinhibited on higher doses of antidepressants in past so I would not titrate. 03/25/2023: * Consolidate thorazine to 75mg HS * Continue haldol 10mg qAM, 20mg miday and 10mg HS 03/22/2023: * increase haloperidol to 10 mg qAM, 20mg midday and 10mg HS- started this schedule 03/22/2023 * consolidate chlorpromazine to 25mg qAM and 50mg HS 03/21/2023: * continue haloperidol 10 mg TID - started this schedule 03/03/2023 * consolidate chlorpromazine to 25mg qAM and 50mg HS 03/20/2023: * continue haloperidol 10 mg TID - started this schedule 03/03/2023 * continue chlorpromazine 25 mg TID - resumed 03/17/2023 * change cogentin from HS scheduled to HS prn use for muscle stiffness to reduce polypharmacy 03/18/2023: * continue haloperidol 10 mg TID - started this schedule 03/03/2023 * continue chlorpromazine 25 mg TID - resumed 03/17/2023 * was committed for extended treatment at 304 hearing today, plan to pursue [facility] hospital transfer 03/17/2023: * continue haloperidol 10 mg TID - started this schedule 03/03/2023 * increase chlorpromazine to 25 mg TID * probable 304 hearing on February 03/07/2023: Start trazodone 100mg HS po. Continue haldol 10mg TID po 03/03/2023: unable to resume thorazine, offered to try splitting Haldol to TID to see if any improvement in orthostasis. 03/02/2023: The patient was admitted to the [facility] ([facility] inpatient mental health unit) on q15 min checks (behavioral with suicide precautions) for safety. The patient will participate in group, recreational, and milieu therapies and will be offered additional individual and family sessions as clinically appropriate. Continue to hold thorazine and monitor BP. Inventory Assets Strengths: taking PO meds, cooperative with tx plan Needs: longer term hospitalization, medical monitoring Suicide Risk Level Suicide Risk Level: Moderate (q15 min suicide checks) (ongoing psychosis but has been consistently denying SI, agrees to let staff know if he feels unsafe or feels in need of additional support) Risk Factors Assessment Male: Yes : Yes Do You Have Access To A Gun?: No Mental Health Diagnoses: Yes Previous Attempt: Yes Previous Psychiatric Hospitalization: Yes Protective Factors Assessment Employed: No Interval History Identifying Information CASEY DAMIAN is a 52-year-old man who lives in a [place] psychiatric long-term with a history of schizophrenia, who eloped after returning to his long-term and was found by police wandering with concern for dehydration due to hot temperatures/humidity. He is on a 304 commitment as of 03/18/2023. Chief Complaint "I really struggled last night". Review of Systems Sleep Information Total Hours of Sleep: 5.5 Sleep Comments: pt on q-15 minute checks Meal Information Percent Meal Consumed - Breakfast: 100 Percent Meal Consumed - Lunch: 100 Percent Meal Consumed - Dinner: 100 Subjective Subjective Patient was seen & assessed and interval progress reviewed with treatment team nursing and social work. Got prn thorazine twice yesterday and couldn't sleep due to significant distress from the voices. Today tells me the voices were saying so much to him that it was hard to keep track so he wrote some of it down and shares this with me. Voices used some racial slurs and swears. 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 He is interested in getting another loading dose of haldol decanoate and continues to deny any side effects from the injection on Wednesday. He's hopeful this alongside the thorazine will continue to help quiet the voices. Physical Exam Psychiatric Orientation: alert and oriented x 3 Apperance: appropriately dressed and appropriately groomed Eye Contact: + fair eye contact Motor Behavior: no abnormal motor movements Speech: normal rate/rhythm/volume of speech Affect: + depressed affect and + anxious affect Mood: + depressed mood and + anxious mood Thought Process: + concrete thought process Thought Content: reality based without delusions (during our conversation but varies based on intensity of the voices he hear) Suicidal Thoughts: denies suicidal thoughts Homicidal Thoughts: denies homicidal thoughts Hallucinations: + auditory hallucinations; no visual hallucinations Cognition: language grossly intact; + attention not intact Estimated Intelligence: consistent with education level Insight: + limited insight Judgment: + limited judgement Vital Signs (Past 24 Hours) Last Vital Signs Temp 36.9 C 04/05/23 06:52 Pulse 94 H 04/05/23 06:53 Resp 16 04/05/23 06:52 BP 113/76 04/05/23 06:53 Pulse Ox 97 04/04/23 06:54 O2 Del Method Room Air 04/04/23 06:54 Results & Data ([facility]) Current Inpatient Medications Current Inpatient Medications: Current Inpatient Medications Benztropine Mesylate (Benztropine Mesylate 1 Mg Tab) 1 mg PO HS PRN PRN Reason: muscle stiffness Stop: 05/01/23 21:59 Chlorpromazine HCl (Chlorpromazine Hcl 25 Mg Tab) 25 mg PO Q6 PRN PRN Reason: psychosis Stop: 05/01/23 18:21 Last Admin: 04/04/23 19:36 Dose: 25 mg Chlorpromazine HCl (Chlorpromazine Hcl 25 Mg Tab) 50 mg PO HS JOSEMANUEL Stop: 05/02/23 21:59 Last Admin: 04/04/23 21:01 Dose: 50 mg Chlorpromazine HCl (Chlorpromazine Hcl 25 Mg Tab) 25 mg PO BIDM JOSEMANUEL Stop: 05/02/23 17:44 Last Admin: 04/05/23 08:44 Dose: 25 mg Docusate Sodium (Docusate Sodium 100 Mg Cap) 200 mg PO HS JOSEMANUEL Stop: 05/01/23 21:59 Last Admin: 04/04/23 21:02 Dose: Not Given Haloperidol (Haloperidol 5 Mg Tab) 10 mg PO TID JOSEMANUEL Stop: 05/02/23 13:59 Last Admin: 04/05/23 08:44 Dose: 10 mg Hydroxyzine HCl (Hydroxyzine Hcl 25 Mg Tab) 50 mg PO HSZ PRN PRN Reason: Insomnia Stop: 04/09/23 16:37 Last Admin: 04/04/23 23:30 Dose: 50 mg Hydroxyzine HCl (Hydroxyzine Hcl 25 Mg Tab) 25 mg PO Q4H PRN PRN Reason: Anxiety Stop: 04/09/23 16:37 Magnesium Hydroxide (Magnesium Hydroxide Susp 30 Ml Udc) 30 ml PO DAILY PRN PRN Reason: Constipation Stop: 04/09/23 16:37 Venlafaxine HCl (Venlafaxine Hcl Xr 75 Mg Capxr) 75 mg PO QAM JOSEMANUEL Stop: 05/01/23 08:59 Last Admin: 04/05/23 08:46 Dose: 75 mg Mental Health & Subst Abuse Tx Therapist Name of Therapist: Lala
[2023-04-05] MEDS ORDERED: BENZTROPINE MESYLATE 1 MG TAB PO PRN (10:49)
[2023-04-05] MEDS ORDERED: HALOPERIDOL DECANOATE INJ 50 MG/ML VIAL IM ONE (13:00)
[2023-04-05] MEDS: chlorproMAZINE HCL 25 MG TAB PO PRN (13:26)
[2023-04-05] MEDS: DOCUSATE SODIUM 100 MG CAP PO SCH (20:35)
[2023-04-06] MEDS: chlorproMAZINE HCL 25 MG TAB PO SCH ×3 (09:32→21:35)
[2023-04-06] MEDS: haloperidoL 5 MG TAB PO SCH ×3 (09:32→21:35)
[2023-04-06] MEDS: VENLAFAXINE HCL XR 75 MG CAPXR PO SCH (09:32)
--- NOTE | 2023-04-06 09:33 | Psychiatric Progress Note ---
Date of Service April 06, 2023 Impression / Recommendations Impression 52 yo man with schizophrenia with multiple recent psychiatric hospitalizations after each has eloped from his long term. Spent about 3 days outside of a hospital setting within the last 4 months. note that main indication for inpatient stay at this point is failure of community resources and although patient not openly having much in the way of positive symptoms he has marked negative symptoms that interfere with his ability to care for self outside of the hospital setting and given the unusual nature under which he was injured and inability to be maintained at supervised living ([facility]), inpatient is currently the least restrictive level of care. Now on 304 commitment. MNPR due to psychosis and limited ability to tolerate peers and hx of aggression with delusions Disposition remains largest challenge given multiple recent failed attempts of returning to his long term due to significant increase in delusions, psychosis, and disorganized behavior as soon as he lives the structure of an inpatient setting. 04/06/2023: some worsening of his mood today due to ongoing auditory hallucinations, able to speak a bit more about his paranoia especially of "authority figures" due to hallucinations and sense that people around him are "acting". Tolerating HAYES from yesterday without any signs of side effects. For now will also continue with po haldol overlap given ongoing symptoms of psychosis which cause him significant psychic distress. Overall, I spent a total of 45 minutes with this case including review of chart records, direct evaluation of the patient at bedside, counseling the patient, discussion during interdisciplinary treatment rounds, risk assessment, helping him clip his fingernails, and documentation in the electronic health record. (1) Schizophrenia: (2) Paranoid: Plan 04/06/2023: Continue current medications and tx plan. 04/05/2023: Additional Haldol decanoate 200mg HAYES, continue po thorazine and po haldol 04/04/2023: Continue current medications and tx plan. Consider additional dose of haldol decanoate 100-200mg HAYES tomorrow. 04/03/2023: * thorazine 25mg qAM, 25mg qdinner, 50mg HS * haldol decanoate 200mg HAYES-- received on 04/03/2023 * haldol po 10mg TID * Effexor ER 75mg daily 04/02/2023: thorazine 25 mg am and pm meal, 50 mg hs with additional 25 mg prn. Patient now agreeable to Haldol dec. Will decrease to 10 mg TID as interval increase of midday dose to 20 mg has not helped with pm breakthrough. Will load 200 mg dose today with additional 100-200 mg loading and PO Haldol taper per Dr. Smith. 04/01/2023: ortho cleared patient, he can discontinue boot at his own comfort, his residual foot deformity does not require surgery 03/28/2023: diversion meeting outcome is all community resources have been exhausted and patient will remain referred to [facility]. repeat foot x ray tomorrow. Patient desires d/c trazodone. completed quality case review with [facility] peer to peer Dr. Jimenez discussing that patient has repeatedly refused clozaril and HAYES and prefers thorazine/haldol component, current doses are best for his BP. Discussed rationale for low dose Effexor XR. Patient has become agitated/disinhibited on higher doses of antidepressants in past so I would not titrate. 03/25/2023: * Consolidate thorazine to 75mg HS * Continue haldol 10mg qAM, 20mg miday and 10mg HS 03/22/2023: * increase haloperidol to 10 mg qAM, 20mg midday and 10mg HS- started this schedule 03/22/2023 * consolidate chlorpromazine to 25mg qAM and 50mg HS 03/21/2023: * continue haloperidol 10 mg TID - started this schedule 03/03/2023 * consolidate chlorpromazine to 25mg qAM and 50mg HS 03/20/2023: * continue haloperidol 10 mg TID - started this schedule 03/03/2023 * continue chlorpromazine 25 mg TID - resumed 03/17/2023 * change cogentin from HS scheduled to HS prn use for muscle stiffness to reduce polypharmacy 03/18/2023: * continue haloperidol 10 mg TID - started this schedule 03/03/2023 * continue chlorpromazine 25 mg TID - resumed 03/17/2023 * was committed for extended treatment at 304 hearing today, plan to pursue [facility] hospital transfer 03/17/2023: * continue haloperidol 10 mg TID - started this schedule 03/03/2023 * increase chlorpromazine to 25 mg TID * probable 304 hearing on February 03/07/2023: Start trazodone 100mg HS po. Continue haldol 10mg TID po 03/03/2023: unable to resume thorazine, offered to try splitting Haldol to TID to see if any improvement in orthostasis. 03/02/2023: The patient was admitted to the [facility] ([facility]) on q15 min checks (behavioral with suicide precautions) for safety. The patient will participate in group, recreational, and milieu therapies and will be offered additional individual and family sessions as clinically appropriate. Continue to hold thorazine and monitor BP. Inventory Assets Strengths: taking PO meds, cooperative with tx plan Needs: longer term hospitalization, medical monitoring Suicide Risk Level Suicide Risk Level: Moderate (q15 min suicide checks) (ongoing psychosis but has been consistently denying SI, agrees to let staff know if he feels unsafe or feels in need of additional support) Risk Factors Assessment Male: Yes : Yes Do You Have Access To A Gun?: No Mental Health Diagnoses: Yes Previous Attempt: Yes Previous Psychiatric Hospitalization: Yes Protective Factors Assessment Employed: No Interval History Identifying Information CASEY DAMIAN is a 52-year-old man who lives in a [place] [facility] long term with a history of schizophrenia, who eloped after returning to his long term and was found by police wandering with concern for dehydration due to hot temperatures/humidity. He is on a 304 commitment as of 03/18/2023. Chief Complaint "I'm having a horrible morning". Review of Systems Sleep Information Total Hours of Sleep: 6 Sleep Comments: pt on q-15 minute checks Meal Information Percent Meal Consumed - Breakfast: 100 Percent Meal Consumed - Lunch: 100 Percent Meal Consumed - Dinner: 100 Subjective Subjective Patient was seen & assessed and interval progress reviewed with treatment team nursing and social work. Attending groups. Reported some mood improvement last night. This morning reports his mood as very poor due to "constant voices". States they have been "repeating sentences". Able to attend some groups and feels that being social helps with distracting from the voices. Denies any side effects from medications or from HAYES yesterday. Physical Exam Psychiatric Orientation: alert and oriented x 3 Apperance: appropriately dressed and appropriately groomed Eye Contact: + fair eye contact Motor Behavior: no abnormal motor movements Speech: normal rate/rhythm/volume of speech Affect: + depressed affect and + anxious affect Mood: + depressed mood and + anxious mood Thought Process: + concrete thought process Thought Content: + paranoid (reports voices make him feel that others are "acting" around him) and reality based without delusions Suicidal Thoughts: denies suicidal thoughts Homicidal Thoughts: denies homicidal thoughts Hallucinations: + auditory hallucinations; no visual hallucinations Cognition: language grossly intact; + attention not intact Estimated Intelligence: consistent with education level Insight: + limited insight Judgment: + limited judgement Vital Signs (Past 24 Hours) Last Vital Signs Temp 36.9 C 04/06/23 06:47 Pulse 78 04/06/23 06:48 Resp 16 04/06/23 06:47 BP 102/69 04/06/23 06:48 Pulse Ox 97 04/04/23 06:54 O2 Del Method Room Air 04/04/23 06:54 Results & Data ([facility]) Current Inpatient Medications Current Inpatient Medications: Current Inpatient Medications Benztropine Mesylate (Benztropine Mesylate 1 Mg Tab) 1 mg PO BID PRN PRN Reason: muscle stiffness Stop: 04/19/23 17:03 Chlorpromazine HCl (Chlorpromazine Hcl 25 Mg Tab) 25 mg PO Q6 PRN PRN Reason: psychosis Stop: 05/01/23 18:21 Last Admin: 04/05/23 13:26 Dose: 25 mg Chlorpromazine HCl (Chlorpromazine Hcl 25 Mg Tab) 50 mg PO HS JOSEMANUEL Stop: 05/02/23 21:59 Last Admin: 04/05/23 20:33 Dose: 50 mg Chlorpromazine HCl (Chlorpromazine Hcl 25 Mg Tab) 25 mg PO BIDM JOSEMANUEL Stop: 05/02/23 17:44 Last Admin: 04/06/23 09:32 Dose: 25 mg Docusate Sodium (Docusate Sodium 100 Mg Cap) 200 mg PO HS JOSEMANUEL Stop: 05/01/23 21:59 Last Admin: 04/05/23 20:35 Dose: Not Given Haloperidol (Haloperidol 5 Mg Tab) 10 mg PO TID JOSEMANUEL Stop: 05/02/23 13:59 Last Admin: 04/06/23 09:32 Dose: 10 mg Hydroxyzine HCl (Hydroxyzine Hcl 25 Mg Tab) 50 mg PO HSZ PRN PRN Reason: Insomnia Stop: 04/09/23 16:37 Last Admin: 04/04/23 23:30 Dose: 50 mg Hydroxyzine HCl (Hydroxyzine Hcl 25 Mg Tab) 25 mg PO Q4H PRN PRN Reason: Anxiety Stop: 04/09/23 16:37 Last Admin: 04/06/23 04:31 Dose: 25 mg Magnesium Hydroxide (Magnesium Hydroxide Susp 30 Ml Udc) 30 ml PO DAILY PRN PRN Reason: Constipation Stop: 04/09/23 16:37 Venlafaxine HCl (Venlafaxine Hcl Xr 75 Mg Capxr) 75 mg PO QAM JOSEMANUEL Stop: 05/01/23 08:59 Last Admin: 04/06/23 09:32 Dose: 75 mg Mental Health & Subst Abuse Tx Therapist Name of Therapist: Lala
[2023-04-06] MEDS: chlorproMAZINE HCL 25 MG TAB PO PRN (14:10)
[2023-04-06] MEDS: DOCUSATE SODIUM 100 MG CAP PO SCH (21:35)
[2023-04-07] MEDS: haloperidoL 5 MG TAB PO SCH ×3 (08:43→20:22)
[2023-04-07] MEDS: chlorproMAZINE HCL 25 MG TAB PO SCH ×3 (08:43→20:23)
[2023-04-07] MEDS: VENLAFAXINE HCL XR 75 MG CAPXR PO SCH (08:43)
--- NOTE | 2023-04-07 09:24 | Psychiatric Progress Note ---
Date of Service April 07, 2023 Impression / Recommendations Impression 52 yo man with schizophrenia with multiple recent psychiatric hospitalizations after each has eloped from his half-way. Spent about 3 days outside of a hospital setting within the last 4 months. note that main indication for inpatient stay at this point is failure of community resources and although patient not openly having much in the way of positive symptoms he has marked negative symptoms that interfere with his ability to care for self outside of the hospital setting and given the unusual nature under which he was injured and inability to be maintained at supervised living ([facility]), inpatient is currently the least restrictive level of care. Now on 304 commitment. MNPR due to psychosis and limited ability to tolerate peers and hx of aggression with delusions Disposition remains largest challenge given multiple recent failed attempts of returning to his half-way due to significant increase in delusions, psychosis, and disorganized behavior as soon as he lives the structure of an inpatient setting. 04/07/2023: Mood a little better today, still with periods of paranoia, ongoing auditory hallucinations. For now will also continue with po haldol overlap given ongoing symptoms of psychosis which cause him significant psychic distress. Overall, I spent a total of 25 minutes with this case including review of chart records, direct evaluation of the patient at bedside, counseling the patient, discussion during interdisciplinary treatment rounds, risk assessment, and documentation in the electronic health record. (1) Schizophrenia: (2) Paranoid: Plan 04/07/2023: Continue current medications and tx plan. 04/06/2023: Continue current medications and tx plan. 04/05/2023: Additional Haldol decanoate 200mg HAYES, continue po thorazine and po haldol 04/04/2023: Continue current medications and tx plan. Consider additional dose of haldol decanoate 100-200mg HAYES tomorrow. 04/03/2023: * thorazine 25mg qAM, 25mg qdinner, 50mg HS * haldol decanoate 200mg HAYES-- received on 04/03/2023 * haldol po 10mg TID * Effexor ER 75mg daily 04/02/2023: thorazine 25 mg am and pm meal, 50 mg hs with additional 25 mg prn. Patient now agreeable to Haldol dec. Will decrease to 10 mg TID as interval increase of midday dose to 20 mg has not helped with pm breakthrough. Will load 200 mg dose today with additional 100-200 mg loading and PO Haldol taper per Dr. Smith. 04/01/2023: ortho cleared patient, he can discontinue boot at his own comfort, his residual foot deformity does not require surgery 03/28/2023: diversion meeting outcome is all community resources have been exhausted and patient will remain referred to [facility]. repeat foot x ray tomorrow. Patient desires d/c trazodone. completed quality case review with [facility] peer to peer Dr. Jimenez discussing that patient has repeatedly refused clozaril and HAYES and prefers thorazine/haldol component, current doses are best for his BP. Discussed rationale for low dose Effexor XR. Patient has become agitated/disinhibited on higher doses of antidepressants in past so I would not titrate. 03/25/2023: * Consolidate thorazine to 75mg HS * Continue haldol 10mg qAM, 20mg miday and 10mg HS 03/22/2023: * increase haloperidol to 10 mg qAM, 20mg midday and 10mg HS- started this schedule 03/22/2023 * consolidate chlorpromazine to 25mg qAM and 50mg HS 03/21/2023: * continue haloperidol 10 mg TID - started this schedule 03/03/2023 * consolidate chlorpromazine to 25mg qAM and 50mg HS 03/20/2023: * continue haloperidol 10 mg TID - started this schedule 03/03/2023 * continue chlorpromazine 25 mg TID - resumed 03/17/2023 * change cogentin from HS scheduled to HS prn use for muscle stiffness to reduce polypharmacy 03/18/2023: * continue haloperidol 10 mg TID - started this schedule 03/03/2023 * continue chlorpromazine 25 mg TID - resumed 03/17/2023 * was committed for extended treatment at 304 hearing today, plan to pursue [facility] transfer 03/17/2023: * continue haloperidol 10 mg TID - started this schedule 03/03/2023 * increase chlorpromazine to 25 mg TID * probable 304 hearing on February 03/07/2023: Start trazodone 100mg HS po. Continue haldol 10mg TID po 03/03/2023: unable to resume thorazine, offered to try splitting Haldol to TID to see if any improvement in orthostasis. 03/02/2023: The patient was admitted to the [facility] ([facility] inpatient mental health unit) on q15 min checks (behavioral with suicide precautions) for safety. The patient will participate in group, recreational, and milieu therapies and w ill be offered additional individual and family sessions as clinically appropriate. Continue to hold thorazine and monitor BP. Inventory Assets Strengths: taking PO meds, cooperative with tx plan Needs: longer term hospitalization, medical monitoring Suicide Risk Level Suicide Risk Level: Moderate (q15 min suicide checks) (ongoing psychosis but has been consistently denying SI, agrees to let staff know if he feels unsafe or feels in need of additional support) Risk Factors Assessment Male: Yes : Yes Do You Have Access To A Gun?: No Mental Health Diagnoses: Yes Previous Attempt: Yes Previous Psychiatric Hospitalization: Yes Protective Factors Assessment Employed: No Interval History Identifying Information CASEY DAMIAN is a 52-year-old man who lives in a [place] [facility] half-way with a history of schizophrenia, who eloped after returning to his half-way and was found by police wandering with concern for dehydration due to hot temperatures/humidity. He is on a 304 commitment as of 03/18/2023. Chief Complaint "I'm good, I finally hit my weight". Review of Systems Sleep Information Total Hours of Sleep: 5 Sleep Comments: pt on q-15 minute checks Meal Information Percent Meal Consumed - Breakfast: 100 Percent Meal Consumed - Lunch: 100 Percent Meal Consumed - Dinner: 100 Subjective Subjective Patient was seen & assessed and interval progress reviewed with treatment team nursing and social work. Very isolative and more paranoid yesterday. Did attend one evening group. Today attending more groups and reports improved mood due to feeling his weight is normalizing. Denies any medication side effects, less bothered by voices today. Physical Exam Psychiatric Orientation: alert and oriented x 3 Apperance: appropriately dressed and appropriately groomed Eye Contact: + fair eye contact Motor Behavior: no abnormal motor movements Speech: normal rate/rhythm/volume of speech Affect: euthymic affect Mood: + anxious mood; no depressed mood Thought Process: + concrete thought process Thought Content: + paranoid (reports voices make him feel that others are "acting" around him) and reality based without delusions Suicidal Thoughts: denies suicidal thoughts Homicidal Thoughts: denies homicidal thoughts Hallucinations: + auditory hallucinations; no visual hallucinations Cognition: language grossly intact; + attention not intact Estimated Intelligence: consistent with education level Insight: + limited insight Judgment: + limited judgement Vital Signs (Past 24 Hours) Last Vital Signs Temp 36.6 C 04/07/23 06:39 Pulse 80 04/07/23 06:41 Resp 18 04/07/23 06:39 BP 119/77 04/07/23 06:41 Pulse Ox 97 04/04/23 06:54 O2 Del Method Room Air 04/04/23 06:54 Results & Data ([facility]) Current Inpatient Medications Current Inpatient Medications: Current Inpatient Medications Benztropine Mesylate (Benztropine Mesylate 1 Mg Tab) 1 mg PO BID PRN PRN Reason: muscle stiffness Stop: 04/19/23 17:03 Chlorpromazine HCl (Chlorpromazine Hcl 25 Mg Tab) 25 mg PO Q6 PRN PRN Reason: psychosis Stop: 05/01/23 18:21 Last Admin: 04/06/23 14:10 Dose: 25 mg Chlorpromazine HCl (Chlorpromazine Hcl 25 Mg Tab) 50 mg PO HS JOSEMANUEL Stop: 05/02/23 21:59 Last Admin: 04/06/23 21:35 Dose: 50 mg Chlorpromazine HCl (Chlorpromazine Hcl 25 Mg Tab) 25 mg PO BIDM JOSEMANUEL Stop: 05/02/23 17:44 Last Admin: 04/07/23 08:43 Dose: 25 mg Docusate Sodium (Docusate Sodium 100 Mg Cap) 200 mg PO HS JOSEMANUEL Stop: 05/01/23 21:59 Last Admin: 04/06/23 21:35 Dose: Not Given Haloperidol (Haloperidol 5 Mg Tab) 10 mg PO TID JOSEMANUEL Stop: 05/02/23 13:59 Last Admin: 04/07/23 08:43 Dose: 10 mg Hydroxyzine HCl (Hydroxyzine Hcl 25 Mg Tab) 50 mg PO HSZ PRN PRN Reason: Insomnia Stop: 04/09/23 16:37 Last Admin: 04/04/23 23:30 Dose: 50 mg Hydroxyzine HCl (Hydroxyzine Hcl 25 Mg Tab) 25 mg PO Q4H PRN PRN Reason: Anxiety Stop: 04/09/23 16:37 Last Admin: 04/06/23 04:31 Dose: 25 mg Magnesium Hydroxide (Magnesium Hydroxide Susp 30 Ml Udc) 30 ml PO DAILY PRN PRN Reason: Constipation Stop: 04/09/23 16:37 Venlafaxine HCl (Venlafaxine Hcl Xr 75 Mg Capxr) 75 mg PO QAM JOSEMANUEL Stop: 05/01/23 08:59 Last Admin: 04/07/23 08:43 Dose: 75 mg Mental Health & Subst Abuse Tx Therapist Name of Therapist: Lala
[2023-04-07] MEDS: chlorproMAZINE HCL 25 MG TAB PO PRN (12:47)
[2023-04-07] MEDS: DOCUSATE SODIUM 100 MG CAP PO SCH (20:22)
[2023-04-08] MEDS: VENLAFAXINE HCL XR 75 MG CAPXR PO SCH (08:17)
[2023-04-08] MEDS: haloperidoL 5 MG TAB PO SCH ×3 (08:17→21:08)
[2023-04-08] MEDS: chlorproMAZINE HCL 25 MG TAB PO SCH ×3 (08:18→21:09)
--- NOTE | 2023-04-08 09:20 | Psychiatric Progress Note ---
Date of Service April 08, 2023 Impression / Recommendations Impression 52 yo man with schizophrenia with multiple recent psychiatric hospitalizations after each has eloped from his [place] [facility]. Spent about 3 days outside of a hospital setting within the last 4 months. note that main indication for inpatient stay at this point is failure of community resources and although patient not openly having much in the way of positive symptoms he has marked negative symptoms that interfere with his ability to care for self outside of the hospital setting and given the unusual nature under which he was injured and inability to be maintained at supervised living ([facility]), inpatient is currently the least restrictive level of care. Now on 304 commitment. MNPR due to psychosis and limited ability to tolerate peers and hx of aggression with delusions Disposition remains largest challenge given multiple recent failed attempts of returning to his [place] [facility] facility due to significant increase in delusions, psychosis, and disorganized behavior as soon as he lives the structure of an inpatient setting. 04/08/2023: Increased voices today which is negatively impacting his mood. No side effects from haldol decanoate HAYES. Will continue with po overlap given his ongoing distress from auditory hallucinations. Given no recent attempt to check the unit doors will take him off elopement precautions. Overall, I spent a total of 25 minutes with this case including review of chart records, direct evaluation of the patient at bedside, counseling the patient, discussion during interdisciplinary treatment rounds, risk assessment, and documentation in the electronic health record. (1) Schizophrenia: (2) Paranoid: Plan 04/08/2023: Continue current medications and tx plan. 04/07/2023: Continue current medications and tx plan. 04/06/2023: Continue current medications and tx plan. 04/05/2023: Additional Haldol decanoate 200mg HAYES, continue po thorazine and po haldol 04/04/2023: Continue current medications and tx plan. Consider additional dose of haldol decanoate 100-200mg HAYES tomorrow. 04/03/2023: * thorazine 25mg qAM, 25mg qdinner, 50mg HS * haldol decanoate 200mg HAYES-- received on 04/03/2023 * haldol po 10mg TID * Effexor ER 75mg daily 04/02/2023: thorazine 25 mg am and pm meal, 50 mg hs with additional 25 mg prn. Patient now agreeable to Haldol dec. Will decrease to 10 mg TID as interval increase of midday dose to 20 mg has not helped with pm breakthrough. Will load 200 mg dose today with additional 100-200 mg loading and PO Haldol taper per Dr. Smith. 04/01/2023: ortho cleared patient, he can discontinue boot at his own comfort, his residual foot deformity does not require surgery 03/28/2023: diversion meeting outcome is all community resources have been exhausted and patient will remain referred to [facility]. repeat foot x ray tomorrow. Patient desires d/c trazodone. completed quality case review with [facility] peer to peer Dr. Jimenez discussing that patient has repeatedly refused clozaril and HAYES and prefers thorazine/haldol component, current doses are best for his BP. Discussed rationale for low dose Effexor XR. Patient has become agitated/disinhibited on higher doses of antidepressants in past so I would not titrate. 03/25/2023: * Consolidate thorazine to 75mg HS * Continue haldol 10mg qAM, 20mg miday and 10mg HS 03/22/2023: * increase haloperidol to 10 mg qAM, 20mg midday and 10mg HS- started this schedule 03/22/2023 * consolidate chlorpromazine to 25mg qAM and 50mg HS 03/21/2023: * continue haloperidol 10 mg TID - started this schedule 03/03/2023 * consolidate chlorpromazine to 25mg qAM and 50mg HS 03/20/2023: * continue haloperidol 10 mg TID - started this schedule 03/03/2023 * continue chlorpromazine 25 mg TID - resumed 03/17/2023 * change cogentin from HS scheduled to HS prn use for muscle stiffness to reduce polypharmacy 03/18/2023: * continue haloperidol 10 mg TID - started this schedule 03/03/2023 * continue chlorpromazine 25 mg TID - resumed 03/17/2023 * was committed for extended treatment at 304 hearing today, plan to pursue [facility] hospital transfer 03/17/2023: * continue haloperidol 10 mg TID - started this schedule 03/03/2023 * increase chlorpromazine to 25 mg TID * probable 304 hearing on February 03/07/2023: Start trazodone 100mg HS po. Continue haldol 10mg TID po 03/03/2023: unable to resume thorazine, offered to try splitting Haldol to TID to see if any improvement in orthostasis. 03/02/2023: The patient was admitted to the [facility] ([facility]) on q15 min checks (behavioral with suicide precautions) for safety. The patient will participate in group, recreational, and milieu therapies and will be offered additional individual and family sessions as clinically appropriate. Continue to hold thorazine and monitor BP. Inventory Assets Strengths: taking PO meds, cooperative with tx plan Needs: longer term hospitalization, medical monitoring Suicide Risk Level Suicide Risk Level: Moderate (q15 min suicide checks) (ongoing psychosis but has been consistently denying SI, agrees to let staff know if he feels unsafe or feels in need of additional support) Risk Factors Assessment Male: Yes : Yes Do You Have Access To A Gun?: No Mental Health Diagnoses: Yes Previous Attempt: Yes Previous Psychiatric Hospitalization: Yes Protective Factors Assessment Employed: No Interval History Identifying Information CASEY DAMIAN is a 52-year-old man who lives in a [facility] [place] [facility] with a history of schizophrenia, who eloped after returning to his [place] [facility] [place] and was found by police wandering with concern for dehydration due to hot temperatures/humidity. He is on a 304 commitment as of 03/18/2023. Chief Complaint "I'm having a hard time, I'm hearing the voices a lot". Review of Systems Sleep Information Total Hours of Sleep: 5.75 Sleep Comments: pt on q-15 minute checks Meal Information Percent Meal Consumed - Breakfast: 100 Percent Meal Consumed - Lunch: 100 Percent Meal Consumed - Dinner: 100 Subjective Subjective Patient was seen & assessed and interval progress reviewed with treatment team nursing and social work. More isolative yesterday. Told staff some of his voices are now coming to him telepathically. Tells me the voices are "swearing a lot, and telling me what I should do" and states they are telling him to crush his glasses, "not supposed to look intelligent" and "not read the bible". He enjoyed meeting with his outpt CM and did attend some groups mid-day. Asked for prn thorazine which helped a bit. Denies any side effects from haldol HAYES nor oral medications. Physical Exam Psychiatric Orientation: alert and oriented x 3 Apperance: appropriately dressed and appropriately groomed Eye Contact: + fair eye contact Motor Behavior: no abnormal motor movements Speech: normal rate/rhythm/volume of speech Affect: euthymic affect Mood: + anxious mood; no depressed mood Thought Process: + concrete thought process Thought Content: + paranoid (reports voices make him feel that others are "acting" around him) and reality based without delusions Suicidal Thoughts: denies suicidal thoughts Homicidal Thoughts: denies homicidal thoughts Hallucinations: + auditory hallucinations (command at times); no visual hallucinations Cognition: language grossly intact; + attention not intact Estimated Intelligence: consistent with education level Insight: + limited insight Judgment: + limited judgement Vital Signs (Past 24 Hours) Last Vital Signs Temp 36.3 C L 04/08/23 06:41 Pulse 87 04/08/23 06:41 Resp 18 04/08/23 06:41 BP 119/79 04/08/23 06:41 Pulse Ox 98 04/08/23 06:41 O2 Del Method Room Air 04/08/23 06:41 Results & Data ([facility]) Current Inpatient Medications Current Inpatient Medications: Current Inpatient Medications Benztropine Mesylate (Benztropine Mesylate 1 Mg Tab) 1 mg PO BID PRN PRN Reason: muscle stiffness Stop: 04/19/23 17:03 Chlorpromazine HCl (Chlorpromazine Hcl 25 Mg Tab) 25 mg PO Q6 PRN PRN Reason: psychosis Stop: 05/01/23 18:21 Last Admin: 04/07/23 12:47 Dose: 25 mg Chlorpromazine HCl (Chlorpromazine Hcl 25 Mg Tab) 50 mg PO HS JOSEMANUEL Stop: 05/02/23 21:59 Last Admin: 04/07/23 20:23 Dose: 50 mg Chlorpromazine HCl (Chlorpromazine Hcl 25 Mg Tab) 25 mg PO BIDM JOSEMANUEL Stop: 05/02/23 17:44 Last Admin: 04/08/23 08:18 Dose: 25 mg Docusate Sodium (Docusate Sodium 100 Mg Cap) 200 mg PO HS JOSEMANUEL Stop: 05/01/23 21:59 Last Admin: 04/07/23 20:22 Dose: 200 mg Haloperidol (Haloperidol 5 Mg Tab) 10 mg PO TID JOSEMANUEL Stop: 05/02/23 13:59 Last Admin: 04/08/23 08:17 Dose: 10 mg Hydroxyzine HCl (Hydroxyzine Hcl 25 Mg Tab) 50 mg PO HSZ PRN PRN Reason: Insomnia Stop: 04/09/23 16:37 Last Admin: 04/04/23 23:30 Dose: 50 mg Hydroxyzine HCl (Hydroxyzine Hcl 25 Mg Tab) 25 mg PO Q4H PRN PRN Reason: Anxiety Stop: 04/09/23 16:37 Last Admin: 04/06/23 04:31 Dose: 25 mg Magnesium Hydroxide (Magnesium Hydroxide Susp 30 Ml Udc) 30 ml PO DAILY PRN PRN Reason: Constipation Stop: 04/09/23 16:37 Venlafaxine HCl (Venlafaxine Hcl Xr 75 Mg Capxr) 75 mg PO QAM JOSEMANUEL Stop: 05/01/23 08:59 Last Admin: 04/08/23 08:17 Dose: 75 mg Mental Health & Subst Abuse Tx Therapist Name of Therapist: Lala
[2023-04-08] MEDS: chlorproMAZINE HCL 25 MG TAB PO PRN (12:25)
[2023-04-08] MEDS: DOCUSATE SODIUM 100 MG CAP PO SCH (21:10)
[2023-04-09] MEDS: hydrOXYzine HCl 25 MG TAB PO PRN (02:26)
[2023-04-09] MEDS: chlorproMAZINE HCL 25 MG TAB PO SCH ×3 (08:18→20:37)
[2023-04-09] MEDS: haloperidoL 5 MG TAB PO SCH ×3 (08:18→20:38)
[2023-04-09] MEDS: VENLAFAXINE HCL XR 75 MG CAPXR PO SCH (08:18)
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
[2023-04-09] MEDS: DOCUSATE SODIUM 100 MG CAP PO SCH (20:36)
[2023-04-10] MEDS ORDERED: MAGNESIUM HYDROXIDE SUSP 30 ML UDC PO PRN (00:59)
[2023-04-10] MEDS ORDERED: ALUMINUM/MAGNESIUM SUSP 30 ML UDC PO PRN (01:02)
[2023-04-10] MEDS: hydrOXYzine HCl 25 MG TAB PO PRN (03:01)
[2023-04-10] MEDS: chlorproMAZINE HCL 25 MG TAB PO SCH ×3 (08:55→20:34)
[2023-04-10] MEDS: VENLAFAXINE HCL XR 75 MG CAPXR PO SCH (08:55)
[2023-04-10] MEDS: haloperidoL 5 MG TAB PO SCH ×3 (08:55→20:33)
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
[2023-04-10] MEDS: DOCUSATE SODIUM 100 MG CAP PO SCH (20:33)
[2023-04-11] MEDS: hydrOXYzine HCl 25 MG TAB PO PRN (02:21)
[2023-04-11] MEDS: VENLAFAXINE HCL XR 75 MG CAPXR PO SCH (08:46)
[2023-04-11] MEDS: haloperidoL 5 MG TAB PO SCH ×3 (08:46→20:34)
[2023-04-11] MEDS: chlorproMAZINE HCL 25 MG TAB PO SCH ×3 (08:46→20:35)
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
[2023-04-11] MEDS: chlorproMAZINE HCL 25 MG TAB PO PRN (13:08)
[2023-04-11] MEDS: DOCUSATE SODIUM 100 MG CAP PO SCH (20:36)
[2023-04-12] MEDS: chlorproMAZINE HCL 25 MG TAB PO SCH ×3 (09:25→20:36)
[2023-04-12] MEDS: VENLAFAXINE HCL XR 75 MG CAPXR PO SCH (09:26)
[2023-04-12] MEDS: haloperidoL 5 MG TAB PO SCH ×3 (09:26→20:37)
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
[2023-04-12] MEDS: chlorproMAZINE HCL 25 MG TAB PO PRN (19:31)
[2023-04-12] MEDS: DOCUSATE SODIUM 100 MG CAP PO SCH (20:36)
[2023-04-12] MEDS: hydrOXYzine HCl 25 MG TAB PO PRN (22:53)
[2023-04-13] MEDS: hydrOXYzine HCl 25 MG TAB PO PRN (00:53)
[2023-04-13] MEDS: chlorproMAZINE HCL 25 MG TAB PO SCH ×2 (08:55→20:27)
[2023-04-13] MEDS: haloperidoL 5 MG TAB PO SCH ×3 (08:55→20:27)
[2023-04-13] MEDS: VENLAFAXINE HCL XR 75 MG CAPXR PO SCH (08:56)
--- NOTE | 2023-04-13 10:25 | Psychiatric Progress Note ---
Date of Service April 13, 2023 Impression / Recommendations Impression 52 yo man with schizophrenia with multiple recent psychiatric hospitalizations after each has eloped from his prison. Spent about 3 days outside of a hospital setting within the last 4 months. note that main indication for inpatient stay at this point is failure of community resources and although patient not openly having much in the way of positive symptoms he has marked negative symptoms that interfere with his ability to care for self outside of the hospital setting and given the unusual nature under which he was injured and inability to be maintained at supervised living ([facility]), inpatient is currently the least restrictive level of care. Now on 304 commitment. MNPR due to psychosis and limited ability to tolerate peers and hx of aggression with delusions Disposition remains largest challenge given multiple recent failed attempts of returning to his prison due to significant increase in delusions, psychosis, and disorganized behavior as soon as he lives the structure of an inpatient setting. 04/13/2023: Reports having "really enjoyed getting out for that walk" yesterday, but found it tiring and that his foot (with a healing fracture) ended up hurting. He went to bed early yesterday evening. Complained of auditory hallucinations that were more intrusive than usual ("maybe because of being tired") and requested PRN chlorpromazine, which he reported helped. 04/12/2023: Continues to do well in this structured environment. He remains eager to get out for the planned walk (security and unit staff member are waiting outside pt's room to begin). Pt reports "some delusional thoughts" (of "punishing angels", a chronic symptom) "but no hallucinations" at all. Is tolerating medication well with no reported adverse effects. 04/11/2023: Continues to appear to do well. He's been out of his room, participating in groups appropriately. He's excited about the plan of going for a walk outside with staff tomorrow. No adverse effect attributable to any of his medications has been noted. He's anxious that at some point "someone might want to change" his medication regimen - he's aware, for example, that the use of mutiple antipsychotics is deprecated - and very much hopes this won't happen. 04/10/2023: Has been started on depot haloperidol along with chlorpromazine. Has a long, clear history of having done best on this combination and of failure of monotherapy with either of these agents or a broad range of others that have been tried. Less distressed, no longer exit-seeking. Greets me cheerfully and appropriately today. Has been attending and participating in groups. 04/09/2023: Mood improving today, seems less distressed by hallucinations. No side effects from haldol decanoate HAYES. Will continue with po overlap given his ongoing distress from auditory hallucinations. (1) Schizophrenia: (2) Paranoid: Plan 04/13/2023: * continue chlropromazine 25 mg QAM, 25 mg QPM, 50mg QHS - adjusted to this schedule on 04/02/2023 * continue haloperidol decanoate 200 mg HAYES - received on 04/03/2023 * continue haloperidol 10 mg TID - reduced to this dose on 04/02/2023 when decanoate was started * continue venlafaxine ER 75 mg daily - started 03/28/2023 04/12/2023: * continue chlropromazine 25 mg QAM, 25 mg QPM, 50mg QHS - adjusted to this schedule on 04/02/2023 * continue haloperidol decanoate 200 mg HAYES - received on 04/03/2023 * continue haloperidol 10 mg TID - reduced to this dose on 04/02/2023 when decanoate was started * continue venlafaxine ER 75 mg daily - started 03/28/2023 04/11/2023: * continue chlropromazine 25 mg QAM, 25 mg QPM, 50mg QHS - adjusted to this schedule on 04/02/2023 * continue haloperidol decanoate 200 mg HAYES - received on 04/03/2023 * continue haloperidol 10 mg TID - reduced to this dose on 04/02/2023 when decanoate was started * continue venlafaxine ER 75 mg daily - started 03/28/2023 04/10/2023: * continue chlropromazine 25 mg QAM, 25 mg QPM, 50mg QHS - adjusted to this schedule on 04/02/2023 * continue haloperidol decanoate 200 mg HAYES - received on 04/03/2023 * continue haloperidol 10 mg TID - reduced to this dose on 04/02/2023 when decanoate was started * continue venlafaxine ER 75 mg daily - started 03/28/2023 04/09/2023: Continue current medications and tx plan. 04/08/2023: Continue current medications and tx plan. 04/07/2023: Continue current medications and tx plan. 04/06/2023: Continue current medications and tx plan. 04/05/2023: Additional Haldol decanoate 200mg HAYES, continue po thorazine and po haldol 04/04/2023: Continue current medications and tx plan. Consider additional dose of haldol decanoate 100-200mg HAYES tomorrow. 04/03/2023: * thorazine 25mg qAM, 25mg qdinner, 50mg HS * haldol decanoate 200mg HAYES-- received on 04/03/2023 * haldol po 10mg TID * Effexor ER 75mg daily 04/02/2023: thorazine 25 mg am and pm meal, 50 mg hs with additional 25 mg prn. Patient now agreeable to Haldol dec. Will decrease to 10 mg TID as interval increase of midday dose to 20 mg has not helped with pm breakthrough. Will load 200 mg dose today with additional 100-200 mg loading and PO Haldol taper per Dr. Smith. 04/01/2023: ortho cleared patient, he can discontinue boot at his own comfort, his residual foot deformity does not require surgery 03/28/2023: diversion meeting outcome is all community resources have been exha usted and patient will remain referred to [facility]. repeat foot x ray tomorrow. Patient desires d/c trazodone. completed quality case review with [facility] peer to peer Dr. Jimenez discussing that patient has repeatedly refused clozaril and HAYES and prefers thorazine/haldol component, current doses are best for his BP. Discussed rationale for low dose Effexor XR. Patient has become agitated/disinhibited on higher doses of antidepressants in past so I would not titrate. 03/25/2023: * Consolidate thorazine to 75mg HS * Continue haldol 10mg qAM, 20mg miday and 10mg HS 03/22/2023: * increase haloperidol to 10 mg qAM, 20mg midday and 10mg HS- started this schedule 03/22/2023 * consolidate chlorpromazine to 25mg qAM and 50mg HS 03/21/2023: * continue haloperidol 10 mg TID - started this schedule 03/03/2023 * consolidate chlorpromazine to 25mg qAM and 50mg HS 03/20/2023: * continue haloperidol 10 mg TID - started this schedule 03/03/2023 * continue chlorpromazine 25 mg TID - resumed 03/17/2023 * change cogentin from HS scheduled to HS prn use for muscle stiffness to reduce polypharmacy 03/18/2023: * continue haloperidol 10 mg TID - started this schedule 03/03/2023 * continue chlorpromazine 25 mg TID - resumed 03/17/2023 * was committed for extended treatment at 304 hearing today, plan to pursue [facility] transfer 03/17/2023: * continue haloperidol 10 mg TID - started this schedule 03/03/2023 * increase chlorpromazine to 25 mg TID * probable 304 hearing on February 03/07/2023: Start trazodone 100mg HS po. Continue haldol 10mg TID po 03/03/2023: unable to resume thorazine, offered to try splitting Haldol to TID to see if any improvement in orthostasis. 03/02/2023: The patient was admitted to the [facility] ([facility] mental health unit) on q15 min checks (behavioral with suicide precautions) for safety. The patient will participate in group, recreational, and milieu therapies and will be offered additional individual and family sessions as clinically ap propriate. Continue to hold thorazine and monitor BP. Inventory Assets Strengths: taking PO meds, cooperative with tx plan Needs: longer term hospitalization, medical monitoring Suicide Risk Level Suicide Risk Level: Moderate (q15 min suicide checks) (ongoing psychosis but has been consistently denying SI, agrees to let staff know if he feels unsafe or feels in need of additional support) Risk Factors Assessment Male: Yes : Yes Do You Have Access To A Gun?: No Mental Health Diagnoses: Yes Previous Attempt: Yes Previous Psychiatric Hospitalization: Yes Protective Factors Assessment Employed: No Interval History Identifying Information CASEY DAMIAN is a 52-year-old man who lives in a [place] psychiatric prison with a history of schizophrenia, who eloped after returning to his prison and was found by police wandering with concern for dehydration due to hot temperatures/humidity. He is on a 304 commitment as of 03/18/2023. Chief Complaint "[]". Review of Systems Sleep Information Total Hours of Sleep: 6 Sleep Comments: Pt requested PRN Vistaril 50mg for sleep with a snack. Meal Information Percent Meal Consumed - Breakfast: 100 Percent Meal Consumed - Lunch: 100 Percent Meal Consumed - Dinner: 100 Subjective Subjective The patient was seen and assessed and interval progress reviewed in a multidisciplinary team meeting with the treatment team. For details, see the "Impression" section. Overall I spent a total of 24 minutes for this inpatient follow-up including review of chart records, direct evaluation of the patient [id number], counseling the patient, medication education with the patient, risk assessment, discussion during interdisciplinary treatment rounds, and documentation in the electronic health record. Physical Exam Psychiatric Orientation: alert, oriented to person, oriented to place, oriented to time and cooperative Apperance: appropriately dressed and appropriately groomed Eye Contact: good eye contact Motor Behavior: no abnormal motor movements Speech: normal rate/rhythm/volume of speech Affect: euthymic affect Mood: + anxious mood; no depressed mood Thought Process: + looseness of associations and + concrete thought process Thought Content: + paranoid (reports voices make him feel that others are "acting" around him) Suicidal Thoughts: denies suicidal thoughts, denies suicidal plan and denies suicidal intent Homicidal Thoughts: denies homicidal thoughts Hallucinations: + auditory hallucinations (command at times); no visual hallucinations Cognition: recent memory grossly intact, remote memory grossly intact and language grossly intact; + attention not intact Estimated Intelligence: average estimated intelligence and consistent with education level Insight: + limited insight Judgment: + limited judgement Vital Signs (Past 24 Hours) Last Vital Signs Temp 36.5 C 04/13/23 06:43 Pulse 80 04/13/23 06:44 Resp 16 04/13/23 06:43 BP 128/80 04/13/23 06:44 Pulse Ox 99 04/09/23 06:40 O2 Del Method Room Air 04/09/23 06:40 Results & Data ([facility]) Current Inpatient Medications Current Inpatient Medications: Current Inpatient Medications Al Hydrox/Mg Hydrox/Simethicone (Aluminum/Magnesium Susp 30 Ml Udc) 30 ml PO Q4H PRN PRN Reason: GI Upset Stop: 05/10/23 01:01 Benztropine Mesylate (Benztropine Mesylate 1 Mg Tab) 1 mg PO BID PRN PRN Reason: muscle stiffness Stop: 04/19/23 17:03 Chlorpromazine HCl (Chlorpromazine Hcl 25 Mg Tab) 25 mg PO Q6 PRN PRN Reason: psychosis Stop: 05/01/23 18:21 Last Admin: 04/12/23 19:31 Dose: 25 mg Chlorpromazine HCl (Chlorpromazine Hcl 25 Mg Tab) 50 mg PO HS JOSEMANUEL Stop: 05/02/23 21:59 Last Admin: 04/12/23 20:36 Dose: 50 mg Chlorpromazine HCl (Chlorpromazine Hcl 25 Mg Tab) 25 mg PO BIDM JOSEMANUEL Stop: 05/02/23 17:44 Last Admin: 04/13/23 08:55 Dose: 25 mg Docusate Sodium (Docusate Sodium 100 Mg Cap) 200 mg PO HS JOSEMANUEL Stop: 05/01/23 21:59 Last Admin: 04/12/23 20:36 Dose: 200 mg Haloperidol (Haloperidol 5 Mg Tab) 10 mg PO TID JOSEMANUEL Stop: 05/02/23 13:59 Last Admin: 04/13/23 08:55 Dose: 10 mg Hydroxyzine HCl (Hydroxyzine Hcl 25 Mg Tab) 25 mg PO Q4H PRN PRN Reason: Anxiety Stop: 05/10/23 00:53 Hydroxyzine HCl (Hydroxyzine Hcl 25 Mg Tab) 50 mg PO HSZ PRN PRN Reason: Insomnia Stop: 05/10/23 00:55 Last Admin: 04/13/23 00:53 Dose: 50 mg Magnesium Hydroxide (Magnesium Hydroxide Susp 30 Ml Udc) 30 ml PO DAILY PRN PRN Reason: Constipation Stop: 05/10/23 00:58 Venlafaxine HCl (Venlafaxine Hcl Xr 75 Mg Capxr) 75 mg PO QAM JOSEMANUEL Stop: 05/01/23 08:59 Last Admin: 04/13/23 08:56 Dose: 75 mg Mental Health & Subst Abuse Tx Therapist Name of Therapist: Lala
[2023-04-13] MEDS: chlorproMAZINE HCL 25 MG TAB PO PRN (12:22)
[2023-04-13] MEDS: DOCUSATE SODIUM 100 MG CAP PO SCH (20:28)
[2023-04-14] MEDS: hydrOXYzine HCl 25 MG TAB PO PRN ×2 (00:13→04:38)
[2023-04-14] MEDS: chlorproMAZINE HCL 25 MG TAB PO SCH ×3 (08:46→21:16)
[2023-04-14] MEDS: VENLAFAXINE HCL XR 75 MG CAPXR PO SCH (08:46)
[2023-04-14] MEDS: haloperidoL 5 MG TAB PO SCH ×3 (08:46→21:16)
--- NOTE | 2023-04-14 09:34 | Psychiatric Progress Note ---
Date of Service April 14, 2023 Impression / Recommendations Impression 52 yo man with schizophrenia with multiple recent psychiatric hospitalizations after each has eloped from his fpc. Spent about 3 days outside of a hospital setting within the last 4 months. note that main indication for inpatient stay at this point is failure of community resources and although patient not openly having much in the way of positive symptoms he has marked negative symptoms that interfere with his ability to care for self outside of the hospital setting and given the unusual nature under which he was injured and inability to be maintained at supervised living ([facility]), inpatient is currently the least restrictive level of care. Now on 304 commitment. MNPR due to psychosis and limited ability to tolerate peers and hx of aggression with delusions Disposition remains largest challenge given multiple recent failed attempts of returning to his fpc due to significant increase in delusions, psychosis, and disorganized behavior as soon as he lives the structure of an inpatient setting. 04/14/2023: Has tolerated the increase in chlorpromazine ordered yesterday due to increased intensity of command auditory hallucinations to jump out a window, and says those hallucinations have diminished in intensity. Pt continue to appear to do fairly well in the context of this highly-structured environment, though clearly still with the same sort of command hallucinations that have led to multiple failed attempts at community re-entry and multiple injuries including fractures. 04/13/2023: Reports having "really enjoyed getting out for that walk" yesterday, but found it tiring and that his foot (with a healing fracture) ended up hurting. He went to bed early yesterday evening. Complained of auditory hallucinations that were more intrusive than usual ("maybe because of being tired") and requested PRN chlorpromazine, which he reported helped. 04/12/2023: Continues to do well in this structured environment. He remains eager to get out for the planned walk (security and unit staff member are waiting outside pt's room to begin). Pt reports "some delusional thoughts" (of "punishing angels", a chronic symptom) "but no hallucinations" at all. Is t olerating medication well with no reported adverse effects. 04/11/2023: Continues to appear to do well. He's been out of his room, participating in groups appropriately. He's excited about the plan of going for a walk outside with staff tomorrow. No adverse effect attributable to any of his medications has been noted. He's anxious that at some point "someone might want to change" his medication regimen - he's aware, for example, that the use of mutiple antipsychotics is deprecated - and very much hopes this won't happen. 04/10/2023: Has been started on depot haloperidol along with chlorpromazine. Has a long, clear history of having done best on this combination and of failure of monotherapy with either of these agents or a broad range of others that have been tried. Less distressed, no longer exit-seeking. Greets me cheerfully and appropriately today. Has been attending and participating in groups. 04/09/2023: Mood improving today, seems less distressed by hallucinations. No side effects from haldol decanoate HAYES. Will continue with po overlap given his ongoing distress from auditory hallucinations. (1) Schizophrenia: (2) Paranoid: Plan 04/14/2023: * continue chlropromazine 50mg TID - increased 04/13/2023 from 25 mg BID & 50 mg QHS * continue haloperidol decanoate 200 mg HAYES - received on 04/03/2023 * continue haloperidol 10 mg TID - reduced to this dose on 04/02/2023 when decanoate was started * continue venlafaxine ER 75 mg daily - started 03/28/2023 04/13/2023: * continue chlropromazine 25 mg QAM, 25 mg QPM, 50mg QHS - adjusted to this schedule on 04/02/2023 * continue haloperidol decanoate 200 mg HAYES - received on 04/03/2023 * continue haloperidol 10 mg TID - reduced to this dose on 04/02/2023 when decanoate was started * continue venlafaxine ER 75 mg daily - started 03/28/2023 04/12/2023: * continue chlropromazine 25 mg QAM, 25 mg QPM, 50mg QHS - adjusted to this schedule on 04/02/2023 * continue haloperidol decanoate 200 mg HAYES - received on 04/03/2023 * continue haloperidol 10 mg TID - reduced to this dose on 04/02/2023 when decanoate was started * continue venlafaxine ER 75 mg daily - started 03/28/2023 04/11/2023: * continue chlropromazine 25 mg QAM, 25 mg QPM, 50mg QHS - adjusted to this schedule on 04/02/2023 * continue haloperidol decanoate 200 mg HAYES - received on 04/03/2023 * continue haloperidol 10 mg TID - reduced to this dose on 04/02/2023 when decanoate was started * continue venlafaxine ER 75 mg daily - started 03/28/2023 04/10/2023: * continue chlropromazine 25 mg QAM, 25 mg QPM, 50mg QHS - adjusted to this schedule on 04/02/2023 * continue haloperidol decanoate 200 mg HAYES - received on 04/03/2023 * continue haloperidol 10 mg TID - reduced to this dose on 04/02/2023 when decanoate was started * continue venlafaxine ER 75 mg daily - started 03/28/2023 04/09/2023: Continue current medications and tx plan. 04/08/2023: Continue current medications and tx plan. 04/07/2023: Continue current medications and tx plan. 04/06/2023: Continue current medications and tx plan. 04/05/2023: Additional Haldol decanoate 200mg HAYES, continue po thorazine and po haldol 04/04/2023: Continue current medications and tx plan. Consider additional dose of haldol decanoate 100-200mg HAYES tomorrow. 04/03/2023: * thorazine 25mg qAM, 25mg qdinner, 50mg HS * haldol decanoate 200mg HAYES-- received on 04/03/2023 * haldol po 10mg TID * Effexor ER 75mg daily 04/02/2023: thorazine 25 mg am and pm meal, 50 mg hs with additional 25 mg prn. Patient now agreeable to Haldol dec. Will decrease to 10 mg TID as interval increase of midday dose to 20 mg has not helped with pm breakthrough. Will load 200 mg dose today with additional 100-200 mg loading and PO Haldol taper per Dr. Smith. 04/01/2023: ortho cleared patient, he can discontinue boot at his own comfort, his residual foot deformity does not require surgery 03/28/2023: diversion meeting outcome is all community resources have been exhausted and patient will remain referred to [facility]. repeat foot x ray tomorrow. Patient desires d/c trazodone. completed quality case review with [facility] peer to peer Dr. Jimenez discussing that patient has repeatedly refused clozaril and HAYES and prefers thorazine/haldol component, current doses are best for his BP. Discussed rationale for low dose Effexor XR. Patient has become agitated/disinhibited on higher doses of antidepressants in past so I would not titrate. 03/25/2023: * Consolidate thorazine to 75mg HS * Continue haldol 10mg qAM, 20mg miday and 10mg HS 03/22/2023: * increase haloperidol to 10 mg qAM, 20mg midday and 10mg HS- started this schedule 03/22/2023 * consolidate chlorpromazine to 25mg qAM and 50mg HS 03/21/2023: * continue haloperidol 10 mg TID - started this schedule 03/03/2023 * consolidate chlorpromazine to 25mg qAM and 50mg HS 03/20/2023: * continue haloperidol 10 mg TID - started this schedule 03/03/2023 * continue chlorpromazine 25 mg TID - resumed 03/17/2023 * change cogentin from HS scheduled to HS prn use for muscle stiffness to reduce polypharmacy 03/18/2023: * continue haloperidol 10 mg TID - started this schedule 03/03/2023 * continue chlorpromazine 25 mg TID - resumed 03/17/2023 * was committed for extended treatment at 304 hearing today, plan to pursue [facility] hospital transfer 03/17/2023: * continue haloperidol 10 mg TID - started this schedule 03/03/2023 * increase chlorpromazine to 25 mg TID * probable 304 hearing on February 03/07/2023: Start trazodone 100mg HS po. Continue haldol 10mg TID po 03/03/2023: unable to resume thorazine, offered to try splitting Haldol to TID to see if any improvement in orthostasis. 03/02/2023: The patient was admitted to [facility] ([facility] inpatient mental health unit) on q15 min checks (behavioral with suicide precautions) for safety. The patient will participate in group, recreational, and milieu therapies and will be offered additional individual and family sessions as clinically appropriate. Continue to hold thorazine and monitor BP. Inventory Assets Strengths: taking PO meds, cooperative with tx plan Needs: longer term hospitalization, medical monitoring Suicide Risk Level Suicide Risk Level: Moderate (q15 min suicide checks) (ongoing psychosis but has been consistently denying SI, agrees to let staff know if he feels unsafe or feels in need of additional support) Risk Factors Assessment Male: Yes : Yes Do You Have Access To A Gun?: No Mental Health Diagnoses: Yes Previous Attempt: Yes Previous Psychiatric Hospitalization: Yes Protective Factors Assessment Employed: No Interval History Identifying Information CASEY DAMIAN is a 52-year-old man who lives in a [facility] with a history of schizophrenia, who eloped after returning to his fpc and was found by police wandering with concern for dehydration due to hot temperatures/humidity. He is on a 304 commitment as of 03/18/2023. Chief Complaint "The hallucinations are a little better". Review of Systems Sleep Information Total Hours of Sleep: 6 Sleep Comments: Pt requested PRN Vistaril 50mg for sleep with a snack. Meal Information Percent Meal Consumed - Breakfast: 100 Percent Meal Consumed - Lunch: 100 Percent Meal Consumed - Dinner: 100 Subjective Subjective The patient was seen and assessed and interval progress reviewed in a multidisciplinary team meeting with the treatment team. For details, see the "Impression" section. Overall I spent a total of 40 minutes for this inpatient follow-up including review of chart records, direct evaluation of the patient [id number], counseling the patient, medication education with the patient, risk assessment, discussion during interdisciplinary treatment rounds, and documentation in the electronic health record. Physical Exam Psychiatric Orientation: alert, oriented to person, oriented to place, oriented to time and cooperative Apperance: appropriately dressed, appropriately groomed and + disheveled Eye Contact: good eye contact and + fair eye contact Motor Behavior: no abnormal motor movements Speech: normal rate/rhythm/volume of speech Affect: euthymic affect, + depressed affect, + anxious affect and + constricted affect Mood: + anxious mood; no depressed mood Thought Process: clear/coherent thought process, + looseness of associations and + concrete thought process Thought Content: + paranoid (reports voices make him feel that others are "acting" around him), reality based without delusions, + delusions, + thought broadcasting and + persecution Suicidal Thoughts: denies suicidal thoughts, denies suicidal plan and denies suicidal intent Homicidal Thoughts: denies homicidal thoughts Hallucinations: + auditory hallucinations (command at times); no visual hallucinations Cognition: recent memory grossly intact, remote memory grossly intact and language grossly intact; + attention not intact Estimated Intelligence: average estimated intelligence and consistent with education level Insight: + limited insight Judgment: + limited judgement Vital Signs (Past 24 Hours) Last Vital Signs Temp 36.4 C L 04/14/23 06:41 Pulse 75 04/14/23 06:42 Resp 16 04/14/23 06:41 BP 107/71 04/14/23 06:42 Pulse Ox 99 04/09/23 06:40 O2 Del Method Room Air 04/09/23 06:40 Results & Data ([facility]) Current Inpatient Medications Current Inpatient Medications: Current Inpatient Medications Al Hydrox/Mg Hydrox/Simethicone (Aluminum/Magnesium Susp 30 Ml Udc) 30 ml PO Q4H PRN PRN Reason: GI Upset Stop: 05/10/23 01:01 Benztropine Mesylate (Benztropine Mesylate 1 Mg Tab) 1 mg PO BID PRN PRN Reason: muscle stiffness Stop: 04/19/23 17:03 Chlorpromazine HCl (Chlorpromazine Hcl 25 Mg Tab) 25 mg PO Q6 PRN PRN Reason: psychosis Stop: 05/01/23 18:21 Last Admin: 04/13/23 12:22 Dose: 25 mg Chlorpromazine HCl (Chlorpromazine Hcl 25 Mg Tab) 50 mg PO TID JOSEMANUEL Stop: 05/13/23 20:59 Last Admin: 04/14/23 08:46 Dose: 50 mg Docusate Sodium (Docusate Sodium 100 Mg Cap) 200 mg PO HS [facility] Stop: 05/01/23 21:59 Last Admin: 04/13/23 20:28 Dose: 200 mg Haloperidol (Haloperidol 5 Mg Tab) 10 mg PO TID JOSEMANUEL Stop: 05/02/23 13:59 Last Admin: 04/14/23 08:46 Dose: 10 mg Hydroxyzine HCl (Hydroxyzine Hcl 25 Mg Tab) 25 mg PO Q4H PRN PRN Reason: Anxiety Stop: 05/10/23 00:53 Last Admin: 04/14/23 04:38 Dose: 25 mg Hydroxyzine HCl (Hydroxyzine Hcl 25 Mg Tab) 50 mg PO HSZ PRN PRN Reason: Insomnia Stop: 05/10/23 00:55 Last Admin: 04/14/23 00:13 Dose: 50 mg Magnesium Hydroxide (Magnesium Hydroxide Susp 30 Ml Udc) 30 ml PO DAILY PRN PRN Reason: Constipation Stop: 05/10/23 00:58 Venlafaxine HCl (Venlafaxine Hcl Xr 75 Mg Capxr) 75 mg PO QAM JOSEMANUEL Stop: 05/01/23 08:59 Last Admin: 04/14/23 08:46 Dose: 75 mg Mental Health & Subst Abuse Tx Therapist Name of Therapist: Lala
[2023-04-14] MEDS: chlorproMAZINE HCL 25 MG TAB PO PRN (12:21)
[2023-04-14] MEDS: DOCUSATE SODIUM 100 MG CAP PO SCH (21:16)
[2023-04-15] MEDS: hydrOXYzine HCl 25 MG TAB PO PRN (05:37)
[2023-04-15] MEDS: haloperidoL 5 MG TAB PO SCH ×3 (09:33→21:16)
[2023-04-15] MEDS: chlorproMAZINE HCL 25 MG TAB PO SCH ×3 (09:33→21:15)
[2023-04-15] MEDS: VENLAFAXINE HCL XR 75 MG CAPXR PO SCH (09:34)
--- NOTE | 2023-04-15 13:35 | Psychiatric Progress Note ---
Date of Service April 15, 2023 Impression / Recommendations Impression 52 yo man with schizophrenia with multiple recent psychiatric hospitalizations after each has eloped from his senior living. Spent about 3 days outside of a hospital setting within the last 4 months. note that main indication for inpatient stay at this point is failure of community resources and although patient not openly having much in the way of positive symptoms he has marked negative symptoms that interfere with his ability to care for self outside of the hospital setting and given the unusual nature under which he was injured and inability to be maintained at supervised living ([facility]), inpatient is currently the least restrictive level of care. Now on 304 commitment. MNPR due to psychosis and limited ability to tolerate peers and hx of aggression with delusions Disposition remains largest challenge given multiple recent failed attempts of returning to his senior living due to significant increase in delusions, psychosis, and disorganized behavior as soon as he lives the structure of an inpatient setting. 04/15/2023: Continues to report his longstanding vaguely threatening visual and auditory hallucinations but says that, at present, he is not experiencing any command hallucinations. Has tolerated the increase in chlorpromazine dose well with no evidence of adverse effects. 04/14/2023: Has tolerated the increase in chlorpromazine ordered yesterday due to increased intensity of command auditory hallucinations to jump out a window, and says those hallucinations have diminished in intensity. Pt continue to appear to do fairly well in the context of this highly-structured environment, though clearly still with the same sort of command hallucinations that have led to multiple failed attempts at community re-entry and multiple injuries including fractures. 04/13/2023: Reports having "really enjoyed getting out for that walk" yesterday, but found it tiring and that his foot (with a healing fracture) ended up hurting. He went to bed early yesterday evening. Complained of auditory hallucinations that were more intrusive than usual ("maybe because of being tired") and requested PRN chlorpromazine, which he reported helped. 04/12/2023: Continues to do well in this structured environment. He remains eager to get out for the planned walk (security and unit staff member are waiting outside pt's room to begin). Pt reports "some delusional thoughts" (of "punishing angels", a chronic symptom) "but no hallucinations" at all. Is tolerating medication well with no reported adverse effects. 04/11/2023: Continues to appear to do well. He's been out of his room, participating in groups appropriately. He's excited about the plan of going for a walk outside with staff tomorrow. No adverse effect attributable to any of his medications has been noted. He's anxious that at some point "someone might want to change" his medication regimen - he's aware, for example, that the use of mutiple antipsychotics is deprecated - and very much hopes this won't happen. 04/10/2023: Has been started on depot haloperidol along with chlorpromazine. Has a long, clear history of having done best on this combination and of failure of monotherapy with either of these agents or a broad range of others that have been tried. Less distressed, no longer exit-seeking. Greets me cheerfully and appropriately today. Has been attending and participating in groups. 04/09/2023: Mood improving today, seems less distressed by hallucinations. No side effects from haldol decanoate HAYES. Will continue with po overlap given his ongoing distress from auditory hallucinations. (1) Schizophrenia: (2) Paranoid: Plan 04/14/2023: * continue chlropromazine 50mg TID - increased 04/13/2023 from 25 mg BID & 50 mg QHS * continue haloperidol decanoate 200 mg HAYES - received on 04/03/2023 * continue haloperidol 10 mg TID - reduced to this dose on 04/02/2023 when decanoate was started * continue venlafaxine ER 75 mg daily - started 03/28/2023 04/14/2023: * continue chlropromazine 50mg TID - increased 04/13/2023 from 25 mg BID & 50 mg QHS * continue haloperidol decanoate 200 mg HAYES - received on 04/03/2023 * continue haloperidol 10 mg TID - reduced to this dose on 04/02/2023 when decanoate was started * continue venlafaxine ER 75 mg daily - started 03/28/2023 04/13/2023: * continue chlropromazine 25 mg QAM, 25 mg QPM, 50mg QHS - adjusted to this schedule on 04/02/2023 * continue haloperidol decanoate 200 mg HAYES - received on 04/03/2023 * continue haloperidol 10 mg TID - reduced to this dose on 04/02/2023 when decanoate was started * continue venlafaxine ER 75 mg daily - started 03/28/2023 04/12/2023: * continue chlropromazine 25 mg QAM, 25 mg QPM, 50mg QHS - adjusted to this schedule on 04/02/2023 * continue haloperidol decanoate 200 mg HAYES - received on 04/03/2023 * continue haloperidol 10 mg TID - reduced to this dose on 04/02/2023 when decanoate was started * continue venlafaxine ER 75 mg daily - started 03/28/2023 04/11/2023: * continue chlropromazine 25 mg QAM, 25 mg QPM, 50mg QHS - adjusted to this schedule on 04/02/2023 * continue haloperidol decanoate 200 mg HAYES - received on 04/03/2023 * continue haloperidol 10 mg TID - reduced to this dose on 04/02/2023 when decanoate was started * continue venlafaxine ER 75 mg daily - started 03/28/2023 04/10/2023: * continue chlropromazine 25 mg QAM, 25 mg QPM, 50mg QHS - adjusted to this schedule on 04/02/2023 * continue haloperidol decanoate 200 mg HAYES - received on 04/03/2023 * continue haloperidol 10 mg TID - reduced to this dose on 04/02/2023 when decanoate was started * continue venlafaxine ER 75 mg daily - started 03/28/2023 04/09/2023: Continue current medications and tx plan. 04/08/2023: Continue current medications and tx plan. 04/07/2023: Continue current medications and tx plan. 04/06/2023: Continue current medications and tx plan. 04/05/2023: Additional Haldol decanoate 200mg HAYES, continue po thorazine and po haldol 04/04/2023: Continue current medications and tx plan. Consider additional dose of haldol decanoate 100-200mg HAYES tomorrow. 04/03/2023: * thorazine 25mg qAM, 25mg qdinner, 50mg HS * haldol decanoate 200mg HAYES-- received on 04/03/2023 * haldol po 10mg TID * Effexor ER 75mg daily 04/02/2023: thorazine 25 mg am and pm meal, 50 mg hs with additional 25 mg prn. Patient now agreeable to Haldol dec. Will decrease to 10 mg TID as interval increase of midday dose to 20 mg has not helped with pm breakthrough. Will load 200 mg dose today with additional 100-200 mg loading and PO Haldol taper per Dr. Smith. 04/01/2023: ortho cleared patient, he can discontinue boot at his own comfort, his residual foot deformity does not require surgery 03/28/2023: diversion meeting outcome is all community resources have been exhausted and patient will remain referred to [facility]. repeat foot x ray tomorrow. Patient desires d/c trazodone. completed quality case review with [facility] peer to peer Dr. Jimenez discussing that patient has repeatedly refused clozaril and HAYES and prefers thorazine/haldol component, current doses are best for his BP. Discussed rationale for low dose Effexor XR. Patient has become agitated/disinhibited on higher doses of antidepressants in past so I would not titrate. 03/25/2023: * Consolidate thorazine to 75mg HS * Continue haldol 10mg qAM, 20mg miday and 10mg HS 03/22/2023: * increase haloperidol to 10 mg qAM, 20mg midday and 10mg HS- started this schedule 03/22/2023 * consolidate chlorpromazine to 25mg qAM and 50mg HS 03/21/2023: * continue haloperidol 10 mg TID - started this schedule 03/03/2023 * consolidate chlorpromazine to 25mg qAM and 50mg HS 03/20/2023: * continue haloperidol 10 mg TID - started this schedule 03/03/2023 * continue chlorpromazine 25 mg TID - resumed 03/17/2023 * change cogentin from HS scheduled to HS prn use for muscle stiffness to reduce polypharmacy 03/18/2023: * continue haloperidol 10 mg TID - started this schedule 03/03/2023 * continue chlorpromazine 25 mg TID - resumed 03/17/2023 * was committed for extended treatment at 304 hearing today, plan to pursue [facility] hospital transfer 03/17/2023: * continue haloperidol 10 mg TID - started this schedule 03/03/2023 * increase chlorpromazine to 25 mg TID * probable 304 hearing on February 03/07/2023: Start trazodone 100mg HS po. Continue haldol 10mg TID po 03/03/2023: unable to resume thorazine, offered to try splitting Haldol to TID to see if any improvement in orthostasis. 03/02/2023: The patient was admitted to the [facility] ([facility] inpatient mental health unit) on q15 min checks (behavioral with suicide precautions) for safety. The patient will participate in group, recreational, and milieu therapies and will be offered additional individual and family sessions as clinically appropriate. Continue to hold thorazine and monitor BP. Inventory Assets Strengths: taking PO meds, cooperative with tx plan Needs: longer term hospitalization, medical monitoring Suicide Risk Level Suicide Risk Level: Moderate (q15 min suicide checks) (ongoing psychosis but has been consistently denying SI, agrees to let staff know if he feels unsafe or feels in need of additional support) Risk Factors Assessment Male: Yes : Yes Do You Have Access To A Gun?: No Mental Health Diagnoses: Yes Previous Attempt: Yes Previous Psychiatric Hospitalization: Yes Protective Factors Assessment Employed: No Interval History Identifying Information CASEY DAMIAN is a 52-year-old man who lives in a [facility] senior living with a history of schizophrenia, who eloped after returning to his senior living and was found by police wandering with concern for dehydration due to hot temperatures/humidity. He is on a 304 commitment as of 03/18/2023. Chief Complaint "The medication change has helped". Review of Systems Sleep Information Total Hours of Sleep: 5.75 Sleep Comments: Pt requested PRN Vistaril 50mg for sleep with a snack. Meal Information Percent Meal Consumed - Breakfast: 100 Percent Meal Consumed - Lunch: 100 Percent Meal Consumed - Dinner: 90 Subjective Subjective The patient was seen and assessed and interval progress reviewed in a multidisciplinary team meeting with the treatment team. For details, see the "Impression" section. Overall I spent a total of 21 minutes for this inpatient follow-up including review of chart records, direct evaluation of the patient [id number], counseling the patient, medication education with the patient, risk assessment, discussion during interdisciplinary treatment rounds, and documentation in the electronic health record. Physical Exam Psychiatric Orientation: alert, oriented x 3, oriented to person, oriented to place, oriented to time and cooperative Apperance: appropriately dressed, appropriately groomed and + disheveled Eye Contact: good eye contact and + fair eye contact Motor Behavior: no abnormal motor movements Speech: normal rate/rhythm/volume of speech Affect: euthymic affect, + depressed affect, + anxious affect and + constricted affect Mood: + anxious mood; no depressed mood Thought Process: clear/coherent thought process, + looseness of associations and + concrete thought process Thought Content: + paranoid (reports voices make him feel that others are "acting" around him), reality based without delusions, + delusions, + thought broadcasting and + persecution Suicidal Thoughts: denies suicidal thoughts, denies suicidal plan and denies suicidal intent Homicidal Thoughts: denies homicidal thoughts Hallucinations: + auditory hallucinations (command at times); no visual hallucinations Cognition: recent memory grossly intact, remote memory grossly intact and language grossly intact; + attention not intact Estimated Intelligence: average estimated intelligence and consistent with education level Insight: + limited insight Judgment: + limited judgement Vital Signs (Past 24 Hours) Last Vital Signs Temp 36.9 C 04/15/23 06:47 Pulse 77 04/15/23 06:47 Resp 16 04/15/23 06:47 BP 102/71 04/15/23 06:47 Pulse Ox 99 04/09/23 06:40 O2 Del Method Room Air 04/09/23 06:40 Results & Data ([facility]) Current Inpatient Medications Current Inpatient Medications: Current Inpatient Medications Al Hydrox/Mg Hydrox/Simethicone (Aluminum/Magnesium Susp 30 Ml Udc) 30 ml PO Q4H PRN PRN Reason: GI Upset Stop: 05/10/23 01:01 Benztropine Mesylate (Benztropine Mesylate 1 Mg Tab) 1 mg PO BID PRN PRN Reason: muscle stiffness Stop: 04/19/23 17:03 Chlorpromazine HCl (Chlorpromazine Hcl 25 Mg Tab) 25 mg PO Q6 PRN PRN Reason: psychosis Stop: 05/01/23 18:21 Last Admin: 04/14/23 12:21 Dose: 25 mg Chlorpromazine HCl (Chlorpromazine Hcl 25 Mg Tab) 50 mg PO TID JOSEMANUEL Stop: 05/13/23 20:59 Last Admin: 04/15/23 09:33 Dose: 50 mg Docusate Sodium (Docusate Sodium 100 Mg Cap) 200 mg PO HS JOSEMANUEL Stop: 05/01/23 21:59 Last Admin: 04/14/23 21:16 Dose: Not Given Haloperidol (Haloperidol 5 Mg Tab) 10 mg PO TID JOSEMANUEL Stop: 05/02/23 13:59 Last Admin: 04/15/23 09:33 Dose: 10 mg Hydroxyzine HCl (Hydroxyzine Hcl 25 Mg Tab) 25 mg PO Q4H PRN PRN Reason: Anxiety Stop: 05/10/23 00:53 Last Admin: 04/15/23 05:37 Dose: 25 mg Hydroxyzine HCl (Hydroxyzine Hcl 25 Mg Tab) 50 mg PO HSZ PRN PRN Reason: Insomnia Stop: 05/10/23 00:55 Last Admin: 04/14/23 00:13 Dose: 50 mg Magnesium Hydroxide (Magnesium Hydroxide Susp 30 Ml Udc) 30 ml PO DAILY PRN PRN Reason: Constipation Stop: 05/10/23 00:58 Venlafaxine HCl (Venlafaxine Hcl Xr 75 Mg Capxr) 75 mg PO QAM JOSEMANUEL Stop: 05/01/23 08:59 Last Admin: 04/15/23 09:34 Dose: 75 mg Mental Health & Subst Abuse Tx Therapist Name of Therapist: Lala
[2023-04-15] MEDS: DOCUSATE SODIUM 100 MG CAP PO SCH ×2 (21:16→21:17)
[2023-04-16] MEDS: hydrOXYzine HCl 25 MG TAB PO PRN ×2 (02:01→04:57)
[2023-04-16] MEDS: VENLAFAXINE HCL XR 75 MG CAPXR PO SCH (08:44)
[2023-04-16] MEDS: haloperidoL 5 MG TAB PO SCH ×3 (08:44→21:22)
[2023-04-16] MEDS: chlorproMAZINE HCL 25 MG TAB PO SCH ×3 (08:44→21:22)
--- NOTE | 2023-04-16 08:58 | Psychiatric Progress Note ---
Date of Service April 16, 2023 Impression / Recommendations Impression 52 yo man with schizophrenia with multiple recent psychiatric hospitalizations after each has eloped from his halfway. Spent about 3 days outside of a hospital setting within the last 4 months. note that main indication for inpatient stay at this point is failure of community resources and although patient not openly having much in the way of positive symptoms he has marked negative symptoms that interfere with his ability to care for self outside of the hospital setting and given the unusual nature under which he was injured and inability to be maintained at supervised living ([facility]), inpatient is currently the least restrictive level of care. Now on 304 commitment. MNPR due to psychosis and limited ability to tolerate peers and hx of aggression with delusions Disposition remains largest challenge given multiple recent failed attempts of returning to his halfway due to significant increase in delusions, psychosis, and disorganized behavior as soon as he lives the structure of an inpatient setting. 04/16/2023: Pt notes that the command auditory hallucinations are "barely noticeable". He says he's continuing to tolerate the increased chlorpromazine with no adverse effect including sedation. 04/15/2023: Continues to report his longstanding vaguely threatening visual and auditory hallucinations but says that, at present, he is not experiencing any command hallucinations. Has tolerated the increase in chlorpromazine dose well with no evidence of adverse effects. 04/14/2023: Has tolerated the increase in chlorpromazine ordered yesterday due to increased intensity of command auditory hallucinations to jump out a window, and says those hallucinations have diminished in intensity. Pt continue to appear to do fairly well in the context of this highly-structured environment, though clearly still with the same sort of command hallucinations that have led to multiple failed attempts at community re-entry and multiple injuries including fractures. 04/13/2023: Reports having "really enjoyed getting out for that walk" yesterday, but found it tiring and that his foot (with a healing fracture) ended up hurting. He went to bed early yesterday evening. Complained of auditory hallucinations that were more intrusive than usual ("maybe because of being tired") and requested PRN chlorpromazine, which he reported helped. 04/12/2023: Continues to do well in this structured environment. He remains eager to get out for the planned walk (security and unit staff member are waiting outside pt's room to begin). Pt reports "some delusional thoughts" (of "punishing angels", a chronic symptom) "but no hallucinations" at all. Is tolerating medication well with no reported adverse effects. 04/11/2023: Continues to appear to do well. He's been out of his room, participating in groups appropriately. He's excited about the plan of going for a walk outside with staff tomorrow. No adverse effect attributable to any of his medications has been noted. He's anxious that at some point "someone might want to change" his medication regimen - he's aware, for example, that the use of mutiple antipsychotics is deprecated - and very much hopes this won't happen. 04/10/2023: Has been started on depot haloperidol along with chlorpromazine. Has a long, clear history of having done best on this combination and of failure of monotherapy with either of these agents or a broad range of others that have been tried. Less distressed, no longer exit-seeking. Greets me cheerfully and appropriately today. Has been attending and participating in groups. 04/09/2023: Mood improving today, seems less distressed by hallucinations. No side effects from haldol decanoate HAYES. Will continue with po overlap given his ongoing distress from auditory hallucinations. (1) Schizophrenia: (2) Paranoid: Plan 04/16/2023: * continue chlropromazine 50mg TID - increased 04/13/2023 from 25 mg BID & 50 mg QHS * continue haloperidol decanoate 200 mg HAYES - received on 04/03/2023 * continue haloperidol 10 mg TID - reduced to this dose on 04/02/2023 when decanoate was started * continue venlafaxine ER 75 mg daily - started 03/28/2023 04/15/2023: * continue chlropromazine 50mg TID - increased 04/13/2023 from 25 mg BID & 50 mg QHS * continue haloperidol decanoate 200 mg HAYES - received on 04/03/2023 * continue haloperidol 10 mg TID - reduced to this dose on 04/02/2023 when decanoate was started * continue venlafaxine ER 75 mg daily - started 03/28/2023 04/14/2023: * continue chlropromazine 50mg TID - increased 04/13/2023 from 25 mg BID & 50 mg QHS * continue haloperidol decanoate 200 mg HAYES - received on 04/03/2023 * continue haloperidol 10 mg TID - reduced to this dose on 04/02/2023 when decanoate was started * continue venlafaxine ER 75 mg daily - started 03/28/2023 04/13/2023: * continue chlropromazine 25 mg QAM, 25 mg QPM, 50mg QHS - adjusted to this schedule on 04/02/2023 * continue haloperidol decanoate 200 mg HAYES - received on 04/03/2023 * continue haloperidol 10 mg TID - reduced to this dose on 04/02/2023 when decanoate was started * continue venlafaxine ER 75 mg daily - started 03/28/2023 04/12/2023: * continue chlropromazine 25 mg QAM, 25 mg QPM, 50mg QHS - adjusted to this schedule on 04/02/2023 * continue haloperidol decanoate 200 mg HAYES - received on 04/03/2023 * continue haloperidol 10 mg TID - reduced to this dose on 04/02/2023 when decanoate was started * continue venlafaxine ER 75 mg daily - started 03/28/2023 04/11/2023: * continue chlropromazine 25 mg QAM, 25 mg QPM, 50mg QHS - adjusted to this schedule on 04/02/2023 * continue haloperidol decanoate 200 mg HAYES - received on 04/03/2023 * continue haloperidol 10 mg TID - reduced to this dose on 04/02/2023 when decanoate was started * continue venlafaxine ER 75 mg daily - started 03/28/2023 04/10/2023: * continue chlropromazine 25 mg QAM, 25 mg QPM, 50mg QHS - adjusted to this schedule on 04/02/2023 * continue haloperidol decanoate 200 mg HAYES - received on 04/03/2023 * continue haloperidol 10 mg TID - reduced to this dose on 04/02/2023 when decanoate was started * continue venlafaxine ER 75 mg daily - started 03/28/2023 04/09/2023: Continue current medications and tx plan. 04/08/2023: Continue current medications and tx plan. 04/07/2023: Continue current medications and tx plan. 04/06/2023: Continue current medications and tx plan. 04/05/2023: Additional Haldol decanoate 200mg HAYES, continue po thorazine and po haldol 04/04/2023: Continue current medications and tx plan. Consider additional dose of haldol decanoate 100-200mg HAYES tomorrow. 04/03/2023: * thorazine 25mg qAM, 25mg qdinner, 50mg HS * haldol decanoate 200mg HAYES-- received on 04/03/2023 * haldol po 10mg TID * Effexor ER 75mg daily 04/02/2023: thorazine 25 mg am and pm meal, 50 mg hs with additional 25 mg prn. Patient now agreeable to Haldol dec. Will decrease to 10 mg TID as interval increase of midday dose to 20 mg has not helped with pm breakthrough. Will load 200 mg dose today with additional 100-200 mg loading and PO Haldol taper per Dr. Smith. 04/01/2023: ortho cleared patient, he can discontinue boot at his own comfort, his residual foot deformity does not require surgery 03/28/2023: diversion meeting outcome is all community resources have been exhausted and patient will remain referred to [facility]. repeat foot x ray tomorrow. Patient desires d/c trazodone. completed quality case review with [facility] peer to peer Dr. Jimenez discussing that patient has repeatedly refused clozaril and HAYES and prefers thorazine/haldol component, current doses are best for his BP. Discussed rationale for low dose Effexor XR. Patient has become agitated/disinhibited on higher doses of antidepressants in past so I would not titrate. 03/25/2023: * Consolidate thorazine to 75mg HS * Continue haldol 10mg qAM, 20mg miday and 10mg HS 03/22/2023: * increase haloperidol to 10 mg qAM, 20mg midday and 10mg HS- started this schedule 03/22/2023 * consolidate chlorpromazine to 25mg qAM and 50mg HS 03/21/2023: * continue haloperidol 10 mg TID - started this schedule 03/03/2023 * consolidate chlorpromazine to 25mg qAM and 50mg HS 03/20/2023: * continue haloperidol 10 mg TID - started this schedule 03/03/2023 * continue chlorpromazine 25 mg TID - resumed 03/17/2023 * change cogentin from HS scheduled to HS prn use for muscle stiffness to reduce polypharmacy 03/18/2023: * continue haloperidol 10 mg TID - started this schedule 03/03/2023 * continue chlorpromazine 25 mg TID - resumed 03/17/2023 * was committed for extended treatment at 304 hearing today, plan to pursue [facility] transfer 03/17/2023: * continue haloperidol 10 mg TID - started this schedule 03/03/2023 * increase chlorpromazine to 25 mg TID * probable 304 hearing on February 03/07/2023: Start trazodone 100mg HS po. Continue haldol 10mg TID po 03/03/2023: unable to resume thorazine, offered to try splitting Haldol to TID to see if any improvement in orthostasis. 03/02/2023: The patient was admitted to the [facility] (major hospital inpatient mental health unit) on q15 min checks (behavioral with suicide precautions) for safety. The patient will participate in group, recreational, and milieu therapies and will be offered additional individual and family sessions as clinically appropriate. Continue to hold thorazine and monitor BP. Inventory Assets Strengths: taking PO meds, cooperative with tx plan Needs: longer term hospitalization, medical monitoring Suicide Risk Level Suicide Risk Level: Moderate (q15 min suicide checks) (ongoing psychosis but has been consistently denying SI, agrees to let staff know if he feels unsafe or feels in need of additional support) Risk Factors Assessment Male: Yes : Yes Do You Have Access To A Gun?: No Mental Health Diagnoses: Yes Previous Attempt: Yes Previous Psychiatric Hospitalization: Yes Protective Factors Assessment Employed: No Interval History Identifying Information CASEY DAMIAN is a 52-year-old man who lives in a [place] psychiatric halfway with a history of schizophrenia, who eloped after returning to his halfway and was found by police wandering with concern for dehydration due to hot temperatures/humidity. He is on a 304 commitment as of 03/18/2023. Chief Complaint "The voices aren't too bad". Review of Systems Sleep Information Total Hours of Sleep: 6 Sleep Comments: Pt requested PRN Vistaril 50mg for sleep with a snack. Meal Information Percent Meal Consumed - Breakfast: 100 Percent Meal Consumed - Lunch: 100 Percent Meal Consumed - Dinner: 100 Subjective Subjective The patient was seen and assessed and interval progress reviewed in a multidisciplinary team meeting with the treatment team. For details, see the "Impression" section. Overall I spent a total of 22 minutes for this inpatient follow-up including review of chart records, direct evaluation of the patient [id number], counseling the patient, medication education with the patient, risk assessment, discussion during interdisciplinary treatment rounds, and documentation in the electronic health record. Physical Exam Psychiatric Orientation: alert, oriented to person, oriented to place, oriented to time and cooperative Apperance: appropriately dressed, appropriately groomed and + disheveled Eye Contact: good eye contact and + fair eye contact Motor Behavior: no abnormal motor movements Speech: normal rate/rhythm/volume of speech Affect: euthymic affect, + depressed affect, + anxious affect and + constricted affect Mood: + anxious mood; no depressed mood Thought Process: clear/coherent thought process, + looseness of associations and + concrete thought process Thought Content: + paranoid (reports voices make him feel that others are "acting" around him), reality based without delusions, + delusions, + thought broadcasting and + persecution Suicidal Thoughts: denies suicidal thoughts, denies suicidal plan and denies suicidal intent Homicidal Thoughts: denies homicidal thoughts Hallucinations: + auditory hallucinations (command at times); no visual hallucinations Cognition: recent memory grossly intact, remote memory grossly intact and language grossly intact; + attention not intact Estimated Intelligence: average estimated intelligence and consistent with education level Insight: + limited insight Judgment: + limited judgement Vital Signs (Past 24 Hours) Last Vital Signs Temp 36.6 C 04/16/23 06:46 Pulse 87 04/16/23 06:46 Resp 16 04/16/23 06:46 BP 106/69 04/16/23 06:46 Pulse Ox 99 04/09/23 06:40 O2 Del Method Room Air 04/09/23 06:40 Results & Data ([facility]) Current Inpatient Medications Current Inpatient Medications: Current Inpatient Medications Al Hydrox/Mg Hydrox/Simethicone (Aluminum/Magnesium Susp 30 Ml Udc) 30 ml PO Q4H PRN PRN Reason: GI Upset Stop: 05/10/23 01:01 Benztropine Mesylate (Benztropine Mesylate 1 Mg Tab) 1 mg PO BID PRN PRN Reason: muscle stiffness Stop: 04/19/23 17:03 Chlorpromazine HCl (Chlorpromazine Hcl 25 Mg Tab) 25 mg PO Q6 PRN PRN Reason: psychosis Stop: 05/01/23 18:21 Last Admin: 04/14/23 12:21 Dose: 25 mg Chlorpromazine HCl (Chlorpromazine Hcl 25 Mg Tab) 50 mg PO TID JOSEMANUEL Stop: 05/13/23 20:59 Last Admin: 04/16/23 08:44 Dose: 50 mg Docusate Sodium (Docusate Sodium 100 Mg Cap) 200 mg PO HS JOSEMANUEL Stop: 05/01/23 21:59 Last Admin: 04/15/23 21:17 Dose: Not Given Haloperidol (Haloperidol 5 Mg Tab) 10 mg PO TID JOSEMANUEL Stop: 05/02/23 13:59 Last Admin: 04/16/23 08:44 Dose: 10 mg Hydroxyzine HCl (Hydroxyzine Hcl 25 Mg Tab) 25 mg PO Q4H PRN PRN Reason: Anxiety Stop: 05/10/23 00:53 Last Admin: 04/16/23 04:57 Dose: 25 mg Hydroxyzine HCl (Hydroxyzine Hcl 25 Mg Tab) 50 mg PO HSZ PRN PRN Reason: Insomnia Stop: 05/10/23 00:55 Last Admin: 04/16/23 02:01 Dose: 50 mg Magnesium Hydroxide (Magnesium Hydroxide Susp 30 Ml Udc) 30 ml PO DAILY PRN PRN Reason: Constipation Stop: 05/10/23 00:58 Venlafaxine HCl (Venlafaxine Hcl Xr 75 Mg Capxr) 75 mg PO QAM [facility] Stop: 05/01/23 08:59 Last Admin: 04/16/23 08:44 Dose: 75 mg Mental Health & Subst Abuse Tx Therapist Name of Therapist: Lala
[2023-04-16] MEDS: DOCUSATE SODIUM 100 MG CAP PO SCH (21:22)
[2023-04-17] MEDS: hydrOXYzine HCl 25 MG TAB PO PRN (00:20)
[2023-04-17] MEDS: chlorproMAZINE HCL 25 MG TAB PO SCH ×3 (09:00→21:06)
[2023-04-17] MEDS: VENLAFAXINE HCL XR 75 MG CAPXR PO SCH (09:01)
[2023-04-17] MEDS: haloperidoL 5 MG TAB PO SCH ×3 (09:01→21:06)
--- NOTE | 2023-04-17 09:31 | Psychiatric Progress Note ---
Date of Service April 17, 2023 Impression / Recommendations Impression 52 yo man with schizophrenia with multiple recent psychiatric hospitalizations after each has eloped from his halfway. Spent about 3 days outside of a hospital setting within the last 4 months. note that main indication for inpatient stay at this point is failure of community resources and although patient not openly having much in the way of positive symptoms he has marked negative symptoms that interfere with his ability to care for self outside of the hospital setting and given the unusual nature under which he was injured and inability to be maintained at supervised living ([facility]), inpatient is currently the least restrictive level of care. Now on 304 commitment. MNPR due to psychosis and limited ability to tolerate peers and hx of aggression with delusions Disposition remains largest challenge given multiple recent failed attempts of returning to his halfway due to significant increase in delusions, psychosis, and disorganized behavior as soon as he lives the structure of an inpatient setting. 04/17/2023: Increased delusions and increased distress from auditory hallucinations last night. Denies any medication side effects, tired today due to poor sleep overnight even with increased dose of thorazine. Overall, I spent a total of 35 minutes with this case including review of chart records, direct evaluation of the patient at bedside, counseling the patient, discussion during interdisciplinary treatment rounds, risk assessment, and documentation in the electronic health record. (1) Schizophrenia: (2) Paranoid: Plan 04/17/2023: * continue chlropromazine 50mg TID - increased 04/13/2023 from 25 mg BID & 50 mg QHS * continue haloperidol decanoate total of 400mg HAYES over two days; 200 mg HAYES - received on 04/03/2023 and additional 200mg HAYES - received on 04/05/2023 * continue haloperidol 10 mg TID - reduced to this dose on 04/02/2023 when decanoate was started * continue venlafaxine ER 75 mg daily - started 03/28/2023 04/16/2023: * continue chlropromazine 50mg TID - increased 04/13/2023 from 25 mg BID & 50 mg QHS * continue haloperidol decanoate 200 mg HAYES - received on 04/03/2023 * continue haloperidol 10 mg TID - reduced to this dose on 04/02/2023 when decanoate was started * continue venlafaxine ER 75 mg daily - started 03/28/2023 04/15/2023: * continue chlropromazine 50mg TID - increased 04/13/2023 from 25 mg BID & 50 mg QHS * continue haloperidol decanoate 200 mg HAYES - received on 04/03/2023 * continue haloperidol 10 mg TID - reduced to this dose on 04/02/2023 when decanoate was started * continue venlafaxine ER 75 mg daily - started 03/28/2023 04/14/2023: * continue chlropromazine 50mg TID - increased 04/13/2023 from 25 mg BID & 50 mg QHS * continue haloperidol decanoate 200 mg HAYES - received on 04/03/2023 * continue haloperidol 10 mg TID - reduced to this dose on 04/02/2023 when decanoate was started * continue venlafaxine ER 75 mg daily - started 03/28/2023 04/13/2023: * continue chlropromazine 25 mg QAM, 25 mg QPM, 50mg QHS - adjusted to this schedule on 04/02/2023 * continue haloperidol decanoate 200 mg HAYES - received on 04/03/2023 * continue haloperidol 10 mg TID - reduced to this dose on 04/02/2023 when decanoate was started * continue venlafaxine ER 75 mg daily - started 03/28/2023 04/12/2023: * continue chlropromazine 25 mg QAM, 25 mg QPM, 50mg QHS - adjusted to this schedule on 04/02/2023 * continue haloperidol decanoate 200 mg HAYES - received on 04/03/2023 * continue haloperidol 10 mg TID - reduced to this dose on 04/02/2023 when decanoate was started * continue venlafaxine ER 75 mg daily - started 03/28/2023 04/11/2023: * continue chlropromazine 25 mg QAM, 25 mg QPM, 50mg QHS - adjusted to this schedule on 04/02/2023 * continue haloperidol decanoate 200 mg HAYES - received on 04/03/2023 * continue haloperidol 10 mg TID - reduced to this dose on 04/02/2023 when decanoate was started * continue venlafaxine ER 75 mg daily - started 03/28/2023 04/10/2023: * continue chlropromazine 25 mg QAM, 25 mg QPM, 50mg QHS - adjusted to this schedule on 04/02/2023 * continue haloperidol decanoate 200 mg HAYES - received on 04/03/2023 * continue haloperidol 10 mg TID - reduced to this dose on 04/02/2023 when decanoate was started * continue venlafaxine ER 75 mg daily - started 03/28/2023 04/09/2023: Continue current medications and tx plan. 04/08/2023: Continue current medications and tx plan. 04/07/2023: Continue current medications and tx plan. 04/06/2023: Continue current medications and tx plan. 04/05/2023: Additional Haldol decanoate 200mg HAYES, continue po thorazine and po haldol 04/04/2023: Continue current medications and tx plan. Consider additional dose of haldol decanoate 100-200mg HAYES tomorrow. 04/03/2023: * thorazine 25mg qAM, 25mg qdinner, 50mg HS * haldol decanoate 200mg HAYES-- received on 04/03/2023 * haldol po 10mg TID * Effexor ER 75mg daily 04/02/2023: thorazine 25 mg am and pm meal, 50 mg hs with additional 25 mg prn. Patient now agreeable to Haldol dec. Will decrease to 10 mg TID as interval increase of midday dose to 20 mg has not helped with pm breakthrough. Will load 200 mg dose today with additional 100-200 mg loading and PO Haldol taper per Dr. Smith. 04/01/2023: ortho cleared patient, he can discontinue boot at his own comfort, his residual foot deformity does not require surgery 03/28/2023: diversion meeting outcome is all community resources have been exhausted and patient will remain referred to [facility]. repeat foot x ray tomorrow. Patient desires d/c trazodone. completed quality [facility] peer to peer Dr. Jimenez discussing that patient has repeatedly refused clozaril and AHYES and prefers thorazine/haldol component, current doses are best for his BP. Discussed rationale for low dose Effexor XR. Patient has become agitated/disinhibited on higher doses of antidepressants in past so I would not titrate. 03/25/2023: * Consolidate thorazine to 75mg HS * Continue haldol 10mg qAM, 20mg miday and 10mg HS 03/22/2023: * increase haloperidol to 10 mg qAM, 20mg midday and 10mg HS- started this schedule 03/22/2023 * consolidate chlorpromazine to 25mg qAM and 50mg HS 03/21/2023: * continue haloperidol 10 mg TID - started this schedule 03/03/2023 * consolidate chlorpromazine to 25mg qAM and 50mg HS 03/20/2023: * continue haloperidol 10 mg TID - started this schedule 03/03/2023 * continue chlorpromazine 25 mg TID - resumed 03/17/2023 * change cogentin from HS scheduled to HS prn use for muscle stiffness to reduce polypharmacy 03/18/2023: * continue haloperidol 10 mg TID - started this schedule 03/03/2023 * continue chlorpromazine 25 mg TID - resumed 03/17/2023 * was committed for extended treatment at 304 hearing today, plan to pursue [facility] transfer 03/17/2023: * continue haloperidol 10 mg TID - started this schedule 03/03/2023 * increase chlorpromazine to 25 mg TID * probable 304 hearing on February 03/07/2023: Start trazodone 100mg HS po. Continue haldol 10mg TID po 03/03/2023: unable to resume thorazine, offered to try splitting Haldol to TID to see if any improvement in orthostasis. 03/02/2023: The patient was admitted to the [facility] ([facility] inpatient mental health unit) on q15 min checks (behavioral with suicide precautions) for safety. The patient will participate in group, recreational, and milieu therapies and will be offered additional individual and family sessions as clinically appropriate. Continue to hold thorazine and monitor BP. Inventory Assets Strengths: taking PO meds, cooperative with tx plan Needs: longer term hospitalization, medical monitoring Suicide Risk Level Suicide Risk Level: Moderate (q15 min suicide checks) (ongoing psychosis but has been consistently denying SI, agrees to let staff know if he feels unsafe or feels in need of additional support) Risk Factors Assessment Male: Yes : Yes Do You Have Access To A Gun?: No Mental Health Diagnoses: Yes Previous Attempt: Yes Previous Psychiatric Hospitalization: Yes Protective Factors Assessment Employed: No Interval History Identifying Information CASEY DAMIAN is a 52-year-old man who lives in a [place] psychiatric halfway with a history of schizophrenia, who eloped after returning to his halfway and was found by police wandering with concern for dehydration due to hot temperatures/humidity. He is on a 304 commitment as of 03/18/2023. Chief Complaint "I didn't sleep because of the voices". Review of Systems Sleep Information Total Hours of Sleep: 3.5 Sleep Comments: Pt requested PRN Vistaril 50mg for sleep with a snack. Meal Information Percent Meal Consumed - Breakfast: 100 Percent Meal Consumed - Lunch: 100 Percent Meal Consumed - Dinner: 100 Subjective Subjective Patient was seen & assessed and interval progress reviewed with treatment team nursing and social work. Attending groups, playing games, felt the voices were better controlled last night. Last night he didn't sleep well noting this was due to the voices "possessing" him. Feels they were doing this to him by "showing me images". Cannot elaborate further. Feels tired today due to poor sleep. Physical Exam Psychiatric Orientation: alert, oriented x 3 and cooperative Apperance: appropriately dressed and + disheveled Eye Contact: + fair eye contact Motor Behavior: no abnormal motor movements Speech: normal rate/rhythm/volume of speech Affect: + constricted affect Mood: + depressed mood and + anxious mood Thought Process: + looseness of associations and + concrete thought process Thought Content: + paranoid (reports voices make him feel that others are "acting" around him) and + delusions Suicidal Thoughts: denies suicidal thoughts, denies suicidal plan and denies suicidal intent Homicidal Thoughts: denies homicidal thoughts Hallucinations: + auditory hallucinations (command at times); no visual hallucinations Cognition: recent memory grossly intact, remote memory grossly intact and language grossly intact; + attention not intact Estimated Intelligence: average estimated intelligence and consistent with education level Insight: + limited insight Judgment: + limited judgement Vital Signs (Past 24 Hours) Last Vital Signs Temp 36.9 C 04/17/23 06:28 Pulse 84 04/17/23 06:29 Resp 18 04/17/23 06:28 BP 134/86 04/17/23 06:29 Pulse Ox 99 04/09/23 06:40 O2 Del Method Room Air 04/09/23 06:40 Results & Data ([facility]) Current Inpatient Medications Current Inpatient Medications: Current Inpatient Medications Al Hydrox/Mg Hydrox/Simethicone (Aluminum/Magnesium Susp 30 Ml Udc) 30 ml PO Q4H PRN PRN Reason: GI Upset Stop: 05/10/23 01:01 Benztropine Mesylate (Benztropine Mesylate 1 Mg Tab) 1 mg PO BID PRN PRN Reason: muscle stiffness Stop: 04/19/23 17:03 Chlorpromazine HCl (Chlorpromazine Hcl 25 Mg Tab) 25 mg PO Q6 PRN PRN Reason: psychosis Stop: 05/01/23 18:21 Last Admin: 04/14/23 12:21 Dose: 25 mg Chlorpromazine HCl (Chlorpromazine Hcl 25 Mg Tab) 50 mg PO TID JOSEMANUEL Stop: 05/13/23 20:59 Last Admin: 04/17/23 09:00 Dose: 50 mg Docusate Sodium (Docusate Sodium 100 Mg Cap) 200 mg PO HS JOSEMANUEL Stop: 05/01/23 21:59 Last Admin: 04/16/23 21:22 Dose: 200 mg Haloperidol (Haloperidol 5 Mg Tab) 10 mg PO TID JOSEMANUEL Stop: 05/02/23 13:59 Last Admin: 04/17/23 09:01 Dose: 10 mg Hydroxyzine HCl (Hydroxyzine Hcl 25 Mg Tab) 25 mg PO Q4H PRN PRN Reason: Anxiety Stop: 05/10/23 00:53 Last Admin: 04/16/23 04:57 Dose: 25 mg Hydroxyzine HCl (Hydroxyzine Hcl 25 Mg Tab) 50 mg PO HSZ PRN PRN Reason: Insomnia Stop: 05/10/23 00:55 Last Admin: 04/17/23 00:20 Dose: 50 mg Magnesium Hydroxide (Magnesium Hydroxide Susp 30 Ml Udc) 30 ml PO DAILY PRN PRN Reason: Constipation Stop: 05/10/23 00:58 Venlafaxine HCl (Venlafaxine Hcl Xr 75 Mg Capxr) 75 mg PO QAM JOSEMANUEL Stop: 05/01/23 08:59 Last Admin: 04/17/23 09:01 Dose: 75 mg Mental Health & Subst Abuse Tx Therapist Name of Therapist: Lala
[2023-04-18] MEDS: hydrOXYzine HCl 25 MG TAB PO PRN ×2 (02:55→23:18)
[2023-04-18] MEDS: VENLAFAXINE HCL XR 75 MG CAPXR PO SCH (08:58)
[2023-04-18] MEDS: haloperidoL 5 MG TAB PO SCH ×3 (08:59→20:46)
[2023-04-18] MEDS: chlorproMAZINE HCL 25 MG TAB PO SCH ×3 (08:59→20:45)
--- NOTE | 2023-04-18 09:16 | Psychiatric Progress Note ---
Date of Service April 18, 2023 Impression / Recommendations Impression 52 yo man with schizophrenia with multiple recent psychiatric hospitalizations after each has eloped from his long term. Spent about 3 days outside of a hospital setting within the last 4 months. note that main indication for inpatient stay at this point is failure of community resources and although patient not openly having much in the way of positive symptoms he has marked negative symptoms that interfere with his ability to care for self outside of the hospital setting and given the unusual nature under which he was injured and inability to be maintained at supervised living ([facility]), inpatient is currently the least restrictive level of care. Now on 304 commitment. MNPR due to psychosis and limited ability to tolerate peers and hx of aggression with delusions Disposition remains largest challenge given multiple recent failed attempts of returning to his long term due to significant increase in delusions, psychosis, and disorganized behavior as soon as he lives the structure of an inpatient setting. 04/18/2023: Slept better last night and mood improved slightly today due to lessening of auditory hallucinations but this fluctuates. Denies any medication side effects. Overall, I spent a total of 25 minutes with this case including review of chart records, direct evaluation of the patient at bedside, counseling the patient, discussion during interdisciplinary treatment rounds, risk assessment, and documentation in the electronic health record. (1) Schizophrenia: (2) Paranoid: Plan 04/18/2023: Continue current medications and tx plan. 04/17/2023: * continue chlropromazine 50mg TID - increased 04/13/2023 from 25 mg BID & 50 mg QHS * continue haloperidol decanoate total of 400mg HAYES over two days; 200 mg HAYES - received on 04/03/2023 and additional 200mg HAYES - received on 04/05/2023 * continue haloperidol 10 mg TID - reduced to this dose on 04/02/2023 when decanoate was started * continue venlafaxine ER 75 mg daily - started 03/28/2023 04/16/2023: * continue chlropromazine 50mg TID - increased 04/13/2023 from 25 mg BID & 50 mg QHS * continue haloperidol decanoate 200 mg HAYES - received on 04/03/2023 * continue haloperidol 10 mg TID - reduced to this dose on 04/02/2023 when decanoate was started * continue venlafaxine ER 75 mg daily - started 03/28/2023 04/15/2023: * continue chlropromazine 50mg TID - increased 04/13/2023 from 25 mg BID & 50 mg QHS * continue haloperidol decanoate 200 mg HAYES - received on 04/03/2023 * continue haloperidol 10 mg TID - reduced to this dose on 04/02/2023 when decanoate was started * continue venlafaxine ER 75 mg daily - started 03/28/2023 04/14/2023: * continue chlropromazine 50mg TID - increased 04/13/2023 from 25 mg BID & 50 mg QHS * continue haloperidol decanoate 200 mg HAYES - received on 04/03/2023 * continue haloperidol 10 mg TID - reduced to this dose on 04/02/2023 when decanoate was started * continue venlafaxine ER 75 mg daily - started 03/28/2023 04/13/2023: * continue chlropromazine 25 mg QAM, 25 mg QPM, 50mg QHS - adjusted to this schedule on 04/02/2023 * continue haloperidol decanoate 200 mg HAYES - received on 04/03/2023 * continue haloperidol 10 mg TID - reduced to this dose on 04/02/2023 when decanoate was started * continue venlafaxine ER 75 mg daily - started 03/28/2023 04/12/2023: * continue chlropromazine 25 mg QAM, 25 mg QPM, 50mg QHS - adjusted to this schedule on 04/02/2023 * continue haloperidol decanoate 200 mg HAYES - received on 04/03/2023 * continue haloperidol 10 mg TID - reduced to this dose on 04/02/2023 when decanoate was started * continue venlafaxine ER 75 mg daily - started 03/28/2023 04/11/2023: * continue chlropromazine 25 mg QAM, 25 mg QPM, 50mg QHS - adjusted to this schedule on 04/02/2023 * continue haloperidol decanoate 200 mg HAYES - received on 04/03/2023 * continue haloperidol 10 mg TID - reduced to this dose on 04/02/2023 when decanoate was started * continue venlafaxine ER 75 mg daily - started 03/28/2023 04/10/2023: * continue chlropromazine 25 mg QAM, 25 mg QPM, 50mg QHS - adjusted to this schedule on 04/02/2023 * continue haloperidol decanoate 200 mg HAYES - received on 04/03/2023 * continue haloperidol 10 mg TID - reduced to this dose on 04/02/2023 when decanoate was started * continue venlafaxine ER 75 mg daily - started 03/28/2023 04/09/2023: Continue current medications and tx plan. 04/08/2023: Continue current medications and tx plan. 04/07/2023: Continue current medications and tx plan. 04/06/2023: Continue current medications and tx plan. 04/05/2023: Additional Haldol decanoate 200mg HAYES, continue po thorazine and po haldol 04/04/2023: Continue current medications and tx plan. Consider additional dose of haldol decanoate 100-200mg HAYES tomorrow. 04/03/2023: * thorazine 25mg qAM, 25mg qdinner, 50mg HS * haldol decanoate 200mg HAYES-- received on 04/03/2023 * haldol po 10mg TID * Effexor ER 75mg daily 04/02/2023: thorazine 25 mg am and pm meal, 50 mg hs with additional 25 mg prn. Patient now agreeable to Haldol dec. Will decrease to 10 mg TID as interval increase of midday dose to 20 mg has not helped with pm breakthrough. Will load 200 mg dose today with additional 100-200 mg loading and PO Haldol taper per Dr. Smith. 04/01/2023: ortho cleared patient, he can discontinue boot at his own comfort, his residual foot deformity does not require surgery 03/28/2023: diversion meeting outcome is all community resources have been exhausted and patient will remain referred to [facility]. repeat foot x ray tomorrow. Patient desires d/c trazodone. completed quality case review with [facility] peer to peer Dr. Jimenez discussing that patient has repeatedly refused clozaril and HAYES and prefers thorazine/haldol component, current doses are best for his BP. Discussed rationale for low dose Effexor XR. Patient has become agitated/disinhibited on higher doses of antidepressants in past so I would not titrate. 03/25/2023: * Consolidate thorazine to 75mg HS * Continue haldol 10mg qAM, 20mg miday and 10mg HS 03/22/2023: * increase haloperidol to 10 mg qAM, 20mg midday and 10mg HS- started this schedule 03/22/2023 * consolidate chlorpromazine to 25mg qAM and 50mg HS 03/21/2023: * continue haloperidol 10 mg TID - started this schedule 03/03/2023 * consolidate chlorpromazine to 25mg qAM and 50mg HS 03/20/2023: * continue haloperidol 10 mg TID - started this schedule 03/03/2023 * continue chlorpromazine 25 mg TID - resumed 03/17/2023 * change cogentin from HS scheduled to HS prn use for muscle stiffness to reduce polypharmacy 03/18/2023: * continue haloperidol 10 mg TID - started this schedule 03/03/2023 * continue chlorpromazine 25 mg TID - resumed 03/17/2023 * was committed for extended treatment at 304 hearing today, plan to pursue [facility] transfer 03/17/2023: * continue haloperidol 10 mg TID - started this schedule 03/03/2023 * increase chlorpromazine to 25 mg TID * probable 304 hearing on February 03/07/2023: Start trazodone 100mg HS po. Continue haldol 10mg TID po 03/03/2023: unable to resume thorazine, offered to try splitting Haldol to TID to see if any improvement in orthostasis. 03/02/2023: The patient was admitted to the [facility] ([facility]) on q15 min checks (behavioral with suicide precautions) for safety. The patient will participate in group, recreational, and milieu therapies and will be offered additional individual and family sessions as clinically appropriate. Continue to hold thorazine and monitor BP. Inventory Assets Strengths: taking PO meds, cooperative with tx plan Needs: longer term hospitalization, medical monitoring Suicide Risk Level Suicide Risk Level: Moderate (q15 min suicide checks) (ongoing psychosis but has been consistently denying SI, agrees to let staff know if he feels unsafe or feels in need of additional support) Risk Factors Assessment Male: Yes : Yes Do You Have Access To A Gun?: No Mental Health Diagnoses: Yes Previous Attempt: Yes Previous Psychiatric Hospitalization: Yes Protective Factors Assessment Employed: No Interval History Identifying Information CASEY DAMIAN is a 52-year-old man who lives in a [facility] long term with a history of schizophrenia, who eloped after returning to his long term and was found by police wandering with concern for dehydration due to hot temperatures/humidity. He is on a 304 commitment as of 03/18/2023. Chief Complaint "Good". Review of Systems Sleep Information Total Hours of Sleep: 6.5 Sleep Comments: Pt requested PRN Vistaril 50mg for sleep with a snack. Meal Information Percent Meal Consumed - Breakfast: 100 Percent Meal Consumed - Lunch: 100 Percent Meal Consumed - Dinner: 100 Subjective Subjective Patient was seen & assessed and interval progress reviewed with treatment team nursing and social work. Mood improved in the evening yesterday and he feels he slept better last night. Wants to call his parents today. Still questions his medications at times which he attributes to still having tough days with the voices being very intrusive. Reports his mood is "good" today as it's been easier so far to distract from the voices. States the voices are always derog atory lately, in the past they weren't always that way but now they are. Physical Exam Psychiatric Orientation: alert, oriented x 3 and cooperative Apperance: appropriately dressed and + disheveled Eye Contact: + fair eye contact Motor Behavior: no abnormal motor movements Speech: normal rate/rhythm/volume of speech Affect: + constricted affect Mood: + anxious mood Thought Process: + looseness of associations and + concrete thought process Thought Content: + paranoid (reports voices make him feel that others are " acting" around him) and + delusions Suicidal Thoughts: denies suicidal thoughts, denies suicidal plan and denies suicidal intent Homicidal Thoughts: denies homicidal thoughts Hallucinations: + auditory hallucinations (command at times); no visual hallucinations Cognition: recent memory grossly intact, remote memory grossly intact and language grossly intact; + attention not intact Estimated Intelligence: average estimated intelligence and consistent with education level Insight: + limited insight Judgment: + limited judgement Vital Signs (Past 24 Hours) Last Vital Signs Temp 36.9 C 04/18/23 07:03 Pulse 65 04/18/23 07:03 Resp 16 04/18/23 07:03 BP 112/76 04/18/23 07:04 Pulse Ox 96 04/18/23 07:03 O2 Del Method Room Air 04/18/23 07:03 Results & Data ([facility]) Current Inpatient Medications Current Inpatient Medications: Current Inpatient Medications Al Hydrox/Mg Hydrox/Simethicone (Aluminum/Magnesium Susp 30 Ml Udc) 30 ml PO Q4H PRN PRN Reason: GI Upset Stop: 05/10/23 01:01 Benztropine Mesylate (Benztropine Mesylate 1 Mg Tab) 1 mg PO BID PRN PRN Reason: muscle stiffness Stop: 04/19/23 17:03 Chlorpromazine HCl (Chlorpromazine Hcl 25 Mg Tab) 25 mg PO Q6 PRN PRN Reason: psychosis Stop: 05/01/23 18:21 Last Admin: 04/14/23 12:21 Dose: 25 mg Chlorpromazine HCl (Chlorpromazine Hcl 25 Mg Tab) 50 mg PO TID JOSEMANUEL Stop: 05/13/23 20:59 Last Admin: 04/18/23 08:59 Dose: 50 mg Docusate Sodium (Docusate Sodium 100 Mg Cap) 200 mg PO HS JOSEMANUEL Stop: 05/01/23 21:59 Last Admin: 04/16/23 21:22 Dose: 200 mg Haloperidol (Haloperidol 5 Mg Tab) 10 mg PO TID JOSEMANUEL Stop: 05/02/23 13:59 Last Admin: 04/18/23 08:59 Dose: 10 mg Hydroxyzine HCl (Hydroxyzine Hcl 25 Mg Tab) 25 mg PO Q4H PRN PRN Reason: Anxiety Stop: 05/10/23 00:53 Last Admin: 04/16/23 04:57 Dose: 25 mg Hydroxyzine HCl (Hydroxyzine Hcl 25 Mg Tab) 50 mg PO HSZ PRN PRN Reason: Insomnia Stop: 05/10/23 00:55 Last Admin: 04/18/23 02:55 Dose: 50 mg Magnesium Hydroxide (Magnesium Hydroxide Susp 30 Ml Udc) 30 ml PO DAILY PRN PRN Reason: Constipation Stop: 05/10/23 00:58 Venlafaxine HCl (Venlafaxine Hcl Xr 75 Mg Capxr) 75 mg PO QAM JOSEMANUEL Stop: 05/01/23 08:59 Last Admin: 04/18/23 08:58 Dose: 75 mg Mental Health & Subst Abuse Tx Therapist Name of Therapist: Lala
[2023-04-18] MEDS: DOCUSATE SODIUM 100 MG CAP PO SCH (20:46)
[2023-04-19] MEDS: hydrOXYzine HCl 25 MG TAB PO PRN (02:53)
[2023-04-19] MEDS: VENLAFAXINE HCL XR 75 MG CAPXR PO SCH (08:45)
[2023-04-19] MEDS: haloperidoL 5 MG TAB PO SCH ×3 (08:45→20:46)
[2023-04-19] MEDS: chlorproMAZINE HCL 25 MG TAB PO SCH ×3 (08:46→20:45)
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
[2023-04-19] MEDS: DOCUSATE SODIUM 100 MG CAP PO SCH (20:46)
[2023-04-20] MEDS: hydrOXYzine HCl 25 MG TAB PO PRN (03:47)
[2023-04-20] MEDS: chlorproMAZINE HCL 25 MG TAB PO SCH ×3 (08:50→21:54)
[2023-04-20] MEDS: haloperidoL 5 MG TAB PO SCH ×3 (08:51→21:54)
[2023-04-20] MEDS: VENLAFAXINE HCL XR 75 MG CAPXR PO SCH (08:51)
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
[2023-04-20] MEDS: DOCUSATE SODIUM 100 MG CAP PO SCH (21:54)
[2023-04-21] MEDS: hydrOXYzine HCl 25 MG TAB PO PRN ×2 (01:09→04:46)
[2023-04-21] MEDS: chlorproMAZINE HCL 25 MG TAB PO SCH ×2 (08:43→14:31)
[2023-04-21] MEDS: haloperidoL 5 MG TAB PO SCH ×3 (08:43→22:00)
[2023-04-21] MEDS: VENLAFAXINE HCL XR 75 MG CAPXR PO SCH (08:44)
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
[2023-04-21] MEDS: DOCUSATE SODIUM 100 MG CAP PO SCH (22:02)
[2023-04-22] MEDS: chlorproMAZINE HCL 25 MG TAB PO SCH ×2 (06:09→13:36)
[2023-04-22] MEDS: haloperidoL 5 MG TAB PO SCH ×3 (08:45→20:11)
[2023-04-22] MEDS: VENLAFAXINE HCL XR 75 MG CAPXR PO SCH (08:45)
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
[2023-04-22] MEDS: chlorproMAZINE HCL 25 MG TAB PO PRN (18:24)
[2023-04-22] MEDS: DOCUSATE SODIUM 100 MG CAP PO SCH (20:12)
[2023-04-23] MEDS: hydrOXYzine HCl 25 MG TAB PO PRN (02:55)
[2023-04-23] MEDS: chlorproMAZINE HCL 25 MG TAB PO SCH ×2 (06:16→14:14)
[2023-04-23] MEDS: VENLAFAXINE HCL XR 75 MG CAPXR PO SCH (09:01)
[2023-04-23] MEDS: haloperidoL 5 MG TAB PO SCH ×3 (09:01→21:05)
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
[2023-04-23] MEDS ORDERED: INFLUENZA VIRUS QUADRIVALENT VACCINE (IIV4) 0.5 ML SYR IM ONE (16:55)
[2023-04-23] MEDS: DOCUSATE SODIUM 100 MG CAP PO SCH (21:05)
[2023-04-24] MEDS: hydrOXYzine HCl 25 MG TAB PO PRN (03:52)
[2023-04-24] MEDS: chlorproMAZINE HCL 25 MG TAB PO SCH ×2 (06:51→14:00)
[2023-04-24] MEDS: VENLAFAXINE HCL XR 75 MG CAPXR PO SCH (08:55)
[2023-04-24] MEDS: haloperidoL 5 MG TAB PO SCH ×3 (08:55→20:18)
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
[2023-04-24] MEDS: DOCUSATE SODIUM 100 MG CAP PO SCH (20:16)
[2023-04-25] MEDS: chlorproMAZINE HCL 25 MG TAB PO PRN ×2 (01:47→17:52)
[2023-04-25] MEDS: hydrOXYzine HCl 25 MG TAB PO PRN (03:57)
[2023-04-25] MEDS: chlorproMAZINE HCL 25 MG TAB PO SCH ×2 (06:50→14:47)
[2023-04-25] MEDS: haloperidoL 5 MG TAB PO SCH ×2 (09:03→17:53)
[2023-04-25] MEDS: VENLAFAXINE HCL XR 75 MG CAPXR PO SCH (09:03)
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
[2023-04-25] MEDS: DOCUSATE SODIUM 100 MG CAP PO SCH (19:48)
[2023-04-26] MEDS: hydrOXYzine HCl 25 MG TAB PO PRN ×2 (03:47→18:57)
[2023-04-26] MEDS: chlorproMAZINE HCL 25 MG TAB PO SCH ×2 (06:47→12:58)
[2023-04-26] MEDS: VENLAFAXINE HCL XR 75 MG CAPXR PO SCH (08:51)
[2023-04-26] MEDS: haloperidoL 5 MG TAB PO SCH ×2 (08:51→17:24)
--- NOTE | 2023-04-26 14:47 | Psychiatric Progress Note ---
Date of Service April 26, 2023 Impression / Recommendations Impression 52 yo man with schizophrenia with multiple recent psychiatric hospitalizations after each has eloped from his half-way. On 304 commitment and accepted to [facility]. No current bed date. MNPR due to psychosis and limited ability to tolerate peers and hx of aggression with delusions 04/26/2023: reports interval improvement Overall, I spent a total of 38 minutes with this case including review of chart records, direct evaluation of the patient at bedside, discussion with treatment team, and documentation in the electronic health record. (1) Schizophrenia: (2) Paranoid: Plan 04/26/2023: titrate hs thorazine, continue Haldol taper (oral, patient received dec) due on or before 05/05/23. 04/25/2023: d/c hs Haldol in favor of increase in thorazine to 200 mg hs. monitor for orthostasis 04/23/2023: * Chlorpromazine 50mg qAM and 50mg qafternoon and 100mg HS - increased 04/21/2023 from 50mg HS to 100mg HS * continue haloperidol decanoate total of 400mg HAYES over two days; 200 mg HAYES - received on 04/03/2023 and additional 200mg HAYES - received on 04/05/2023 * increase haloperidol po back to 10mg TID - reduced to 5 TID on 04/21/2023 with worsening hallucinations, previously reduced to 10mg TID dose on 04/02/2023 when decanoate was started * continue venlafaxine ER 75 mg daily - started 03/28/2023 04/21/2023: * Chlorpromazine 50mg qAM and 50mg qafternoon and 100mg HS - increased 04/21/2023 from 50mg HS to 100mg HS * continue haloperidol decanoate total of 400mg HAYES over two days; 200 mg HAYES - received on 04/03/2023 and additional 200mg HAYES - received on 04/05/2023 * decrease haloperidol po to 5 mg TID - reduced from 10 mg TID, previously reduced to 10mg TID dose on 04/02/2023 when decanoate was started * continue venlafaxine ER 75 mg daily - started 03/28/2023 04/17/2023: * continue chlropromazine 50mg TID - increased 04/13/2023 from 25 mg BID & 50 mg QHS * continue haloperidol decanoate total of 400mg HAYES over two days; 200 mg HAYES - received on 04/03/2023 and additional 200mg HAYES - received on 04/05/2023 * continue haloperidol 10 mg TID - reduced to this dose on 04/02/2023 when decanoate was started * continue venlafaxine ER 75 mg daily - started 03/28/2023 04/16/2023: * continue chlropromazine 50mg TID - increased 04/13/2023 from 25 mg BID & 50 mg QHS * continue haloperidol decanoate 200 mg HAYES - received on 04/03/2023 * continue haloperidol 10 mg TID - reduced to this dose on 04/02/2023 when decanoate was started * continue venlafaxine ER 75 mg daily - started 03/28/2023 04/15/2023: * continue chlropromazine 50mg TID - increased 04/13/2023 from 25 mg BID & 50 mg QHS * continue haloperidol decanoate 200 mg HAYES - received on 04/03/2023 * continue haloperidol 10 mg TID - reduced to this dose on 04/02/2023 when decanoate was started * continue venlafaxine ER 75 mg daily - started 03/28/2023 04/14/2023: * continue chlropromazine 50mg TID - increased 04/13/2023 from 25 mg BID & 50 mg QHS * continue haloperidol decanoate 200 mg HAYES - received on 04/03/2023 * continue haloperidol 10 mg TID - reduced to this dose on 04/02/2023 when decanoate was started * continue venlafaxine ER 75 mg daily - started 03/28/2023 04/13/2023: * continue chlropromazine 25 mg QAM, 25 mg QPM, 50mg QHS - adjusted to this schedule on 04/02/2023 * continue haloperidol decanoate 200 mg HAYES - received on 04/03/2023 * continue haloperidol 10 mg TID - reduced to this dose on 04/02/2023 when decanoate was started * continue venlafaxine ER 75 mg daily - started 03/28/2023 04/12/2023: * continue chlropromazine 25 mg QAM, 25 mg QPM, 50mg QHS - adjusted to this schedule on 04/02/2023 * continue haloperidol decanoate 200 mg HAYES - received on 04/03/2023 * continue haloperidol 10 mg TID - reduced to this dose on 04/02/2023 when decanoate was started * continue venlafaxine ER 75 mg daily - started 03/28/2023 04/11/2023: * continue chlropromazine 25 mg QAM, 25 mg QPM, 50mg QHS - adjusted to this schedule on 04/02/2023 * continue haloperidol decanoate 200 mg HAYES - received on 04/03/2023 * continue haloperidol 10 mg TID - reduced to this dose on 04/02/2023 when decanoate was started * continue venlafaxine ER 75 mg daily - started 03/28/2023 04/10/2023: * continue chlropromazine 25 mg QAM, 25 mg QPM, 50mg QHS - adjusted to this schedule on 04/02/2023 * continue haloperidol decanoate 200 mg HAYES - received on 04/03/2023 * continue haloperidol 10 mg TID - reduced to this dose on 04/02/2023 when decanoate was started * continue venlafaxine ER 75 mg daily - started 03/28/2023 04/05/2023: Additional Haldol decanoate 200mg HAYES, continue po thorazine and po haldol 04/04/2023: Continue current medications and tx plan. Consider additional dose of haldol decanoate 100-200mg HAYES tomorrow. 04/03/2023: * thorazine 25mg qAM, 25mg qdinner, 50mg HS * haldol decanoate 200mg HAYES-- received on 04/03/2023 * haldol po 10mg TID * Effexor ER 75mg daily 04/02/2023: thorazine 25 mg am and pm meal, 50 mg hs with additional 25 mg prn. Patient now agreeable to Haldol dec. Will decrease to 10 mg TID as interval increase of midday dose to 20 mg has not helped with pm breakthrough. Will load 200 mg dose today with additional 100-200 mg loading and PO Haldol taper per Dr. Smith. 04/01/2023: ortho cleared patient, he can discontinue boot at his own comfort, his residual foot deformity does not require surgery 03/28/2023: diversion meeting outcome is all community resources have been exhausted and patient will remain referred to [facility]. repeat foot x ray tomorrow. Patient desires d/c trazodone. completed quality case review with [facility] peer to peer Dr. Jimenez discussing that patient has repeatedly refused clozaril and HAYES and prefers thorazine/haldol component, current doses are best for his BP. Discussed rationale for low dose Effexor XR. Patient has become agitated/disinhibited on higher doses of antidepressants in past so I would not titrate. 03/25/2023: * Consolidate thorazine to 75mg HS * Continue haldol 10mg qAM, 20mg miday and 10mg HS 03/22/2023: * increase haloperidol to 10 mg qAM, 20mg midday and 10mg HS- started this schedule 03/22/2023 * consolidate chlorpromazine to 25mg qAM and 50mg HS 03/21/2023: * continue haloperidol 10 mg TID - started this schedule 03/03/2023 * consolidate chlorpromazine to 25mg qAM and 50mg HS 03/20/2023: * continue haloperidol 10 mg TID - started this schedule 03/03/2023 * continue chlorpromazine 25 mg TID - resumed 03/17/2023 * change cogentin from HS scheduled to HS prn use for muscle stiffness to reduce polypharmacy 03/18/2023: * continue haloperidol 10 mg TID - started this schedule 03/03/2023 * continue chlorpromazine 25 mg TID - resumed 03/17/2023 * was committed for extended treatment at 304 hearing today, plan to pursue [facility] hospital transfer 03/17/2023: * continue haloperidol 10 mg TID - started this schedule 03/03/2023 * increase chlorpromazine to 25 mg TID * probable 304 hearing on February 03/07/2023: Start trazodone 100mg HS po. Continue haldol 10mg TID po 03/03/2023: unable to resume thorazine, offered to try splitting Haldol to TID to see if any improvement in orthostasis. 03/02/2023: The patient was admitted to the [facility] ([facility] inpatient mental health unit) on q15 min checks (behavioral with suicide precautions) for safety. The patient will participate in group, recreational, and milieu therapies and will be offered additional individual and family sessions as clinically appropriate. Continue to hold thorazine and monitor BP. Inventory Assets Strengths: taking PO meds, cooperative with tx plan Needs: longer term hospitalization, medical monitoring Suicide Risk Level Suicide Risk Level: Moderate (q15 min suicide checks) (ongoing psychosis but has been consistently denying SI, agrees to let staff know if he feels unsafe or feels in need of additional support) Risk Factors Assessment Male: Yes : Yes Do You Have Access To A Gun?: No Mental Health Diagnoses: Yes Previous Attempt: Yes Previous Psychiatric Hospitalization: Yes Protective Factors Assessment Employed: No Interval History Identifying Information CASEY DAMIAN is a 52-year-old man who lives in a [place] [facility] half-way with a history of schizophrenia, who eloped after returning to his half-way and was found by police wandering with concern for dehydration due to hot temperatures/humidity. He is on a 304 commitment as of 03/18/2023. Chief Complaint "I slept better." Review of Systems Sleep Information Total Hours of Sleep: 8 Sleep Comments: PRN Vistaril given per request Meal Information Percent Meal Consumed - Breakfast: 100 Percent Meal Consumed - Lunch: 100 Percent Meal Consumed - Dinner: 100 Subjective Subjective Patient was seen & assessed and interval progress reviewed with treatment team. Less breakthrough in hallucinations yesterday, did wake up but not until until after 3 am and able to get back to sleep, less restless. denies dizziness. Physical Exam Psychiatric Orientation: alert and cooperative Apperance: appropriately dressed and appropriately groomed Eye Contact: + fair eye contact Motor Behavior: no abnormal motor movements Speech: normal rate/rhythm/volume of speech Affect: euthymic affect Mood: no anxious mood Thought Process: + concrete thought process Thought Content: + paranoid (intermittent) Suicidal Thoughts: denies suicidal thoughts Homicidal Thoughts: denies homicidal thoughts Hallucinations: + auditory hallucinations; no visual hallucinations Cognition: recent memory grossly intact, remote memory grossly intact, attention grossly intact and language grossly intact Estimated Intelligence: average estimated intelligence and consistent with education level Insight: + limited insight Judgment: + limited judgement Vital Signs (Past 24 Hours) Last Vital Signs Temp 36.5 C 04/26/23 06:44 Pulse 88 04/26/23 06:44 Resp 16 04/26/23 06:44 BP 125/82 04/26/23 06:44 Pulse Ox 100 04/23/23 06:00 O2 Del Method Room Air 04/23/23 06:00 Results & Data ([facility]) Current Inpatient Medications Current Inpatient Medications: Current Inpatient Medications Al Hydrox/Mg Hydrox/Simethicone (Aluminum/Magnesium Susp 30 Ml Udc) 30 ml PO Q4H PRN PRN Reason: GI Upset Stop: 05/10/23 01:01 Chlorpromazine HCl (Chlorpromazine Hcl 25 Mg Tab) 50 mg PO [id number] JOSEMANUEL Stop: 05/22/23 06:59 Last Admin: 04/26/23 12:58 Dose: 50 mg Chlorpromazine HCl (Chlorpromazine Hcl 25 Mg Tab) 50 mg PO Q6 PRN PRN Reason: psychosis Stop: 05/01/23 18:21 Last Admin: 04/25/23 17:52 Dose: 50 mg Chlorpromazine HCl (Chlorpromazine Hcl 100 Mg Tab) 300 mg PO DAILY@2030 JOSEMANUEL Stop: 05/26/23 20:29 Docusate Sodium (Docusate Sodium 100 Mg Cap) 200 mg PO HS JOSEMANUEL Stop: 05/01/23 21:59 Last Admin: 04/25/23 19:48 Dose: 200 mg Haloperidol (Haloperidol 5 Mg Tab) 10 mg PO BIDM JOSEMANUEL Stop: 05/25/23 17:44 Last Admin: 04/26/23 08:51 Dose: 10 mg Hydroxyzine HCl (Hydroxyzine Hcl 25 Mg Tab) 25 mg PO Q4H PRN PRN Reason: Anxiety Stop: 05/10/23 00:53 Last Admin: 04/26/23 03:47 Dose: 25 mg Hydroxyzine HCl (Hydroxyzine Hcl 25 Mg Tab) 50 mg PO HSZ PRN PRN Reason: Insomnia Stop: 05/10/23 00:55 Last Admin: 04/23/23 02:55 Dose: 50 mg Magnesium Hydroxide (Magnesium Hydroxide Susp 30 Ml Udc) 30 ml PO DAILY PRN PRN Reason: Constipation Stop: 05/10/23 00:58 Venlafaxine HCl (Venlafaxine Hcl Xr 75 Mg Capxr) 75 mg PO QAM JOSEMANUEL Stop: 05/01/23 08:59 Last Admin: 04/26/23 08:51 Dose: 75 mg Mental Health & Subst Abuse Tx Therapist Name of Therapist: Lala
[2023-04-26] MEDS: chlorproMAZINE HCL 25 MG TAB PO PRN ×2 (16:08→22:07)
[2023-04-26] MEDS: DOCUSATE SODIUM 100 MG CAP PO SCH (19:59)
[2023-04-27] MEDS: hydrOXYzine HCl 25 MG TAB PO PRN (02:49)
[2023-04-27] MEDS: chlorproMAZINE HCL 25 MG TAB PO SCH ×2 (07:02→13:15)
[2023-04-27] MEDS: VENLAFAXINE HCL XR 75 MG CAPXR PO SCH (09:04)
[2023-04-27] MEDS: haloperidoL 5 MG TAB PO SCH ×2 (09:04→16:28)
--- NOTE | 2023-04-27 14:35 | Psychiatric Progress Note ---
Date of Service April 27, 2023 Impression / Recommendations Impression 52 yo man with schizophrenia with multiple recent psychiatric hospitalizations after each has eloped from his longterm. On 304 commitment and accepted to [facility]. No current bed date. [facility] due to psychosis and limited ability to tolerate peers and hx of aggression with delusions 04/27/2023: regression past 16+ hours Overall, I spent a total of 35 minutes with this case including review of chart records, direct evaluation of the patient, discussion with nursing, and documentation in the electronic health record. (1) Schizophrenia: (2) Paranoid: Plan 04/27/2023: slow rate of Haldol taper--resume 10 mg BID meals and monitor BP on higher dose of thorazine. If symptoms persist, he may be agreeable to trial of clozaril in place of thorazine and/or depakote. Still a week out from Haldol dec. 04/26/2023: titrate hs thorazine, continue Haldol taper (oral, patient received dec) due on or before 05/05/23. 04/25/2023: d/c hs Haldol in favor of increase in thorazine to 200 mg hs. monitor for orthostasis 04/23/2023: * Chlorpromazine 50mg qAM and 50mg qafternoon and 100mg HS - increased 04/21/2023 from 50mg HS to 100mg HS * continue haloperidol decanoate total of 400mg HAYES over two days; 200 mg HAYES - received on 04/03/2023 and additional 200mg HAYES - received on 04/05/2023 * increase haloperidol po back to 10mg TID - reduced to 5 TID on 04/21/2023 with worsening hallucinations, previously reduced to 10mg TID dose on 04/02/2023 when decanoate was started * continue venlafaxine ER 75 mg daily - started 03/28/2023 04/21/2023: * Chlorpromazine 50mg qAM and 50mg qafternoon and 100mg HS - increased 04/21/2023 from 50mg HS to 100mg HS * continue haloperidol decanoate total of 400mg HAYES over two days; 200 mg HAYES - received on 04/03/2023 and additional 200mg HAYES - received on 04/05/2023 * decrease haloperidol po to 5 mg TID - reduced from 10 mg TID, previously reduced to 10mg TID dose on 04/02/2023 when decanoate was started * continue venlafaxine ER 75 mg daily - started 03/28/2023 04/17/2023: * continue chlropromazine 50mg TID - increased 04/13/2023 from 25 mg BID & 50 mg QHS * continue haloperidol decanoate total of 400mg HAYES over two days; 200 mg HAYES - received on 04/03/2023 and additional 200mg HAYES - received on 04/05/2023 * continue haloperidol 10 mg TID - reduced to this dose on 04/02/2023 when decanoate was started * continue venlafaxine ER 75 mg daily - started 03/28/2023 04/16/2023: * continue chlropromazine 50mg TID - increased 04/13/2023 from 25 mg BID & 50 mg QHS * continue haloperidol decanoate 200 mg HAYES - received on 04/03/2023 * continue haloperidol 10 mg TID - reduced to this dose on 04/02/2023 when decanoate was started * continue venlafaxine ER 75 mg daily - started 03/28/2023 04/15/2023: * continue chlropromazine 50mg TID - increased 04/13/2023 from 25 mg BID & 50 mg QHS * continue haloperidol decanoate 200 mg HAYES - received on 04/03/2023 * continue haloperidol 10 mg TID - reduced to this dose on 04/02/2023 when decanoate was started * continue venlafaxine ER 75 mg daily - started 03/28/2023 04/14/2023: * continue chlropromazine 50mg TID - increased 04/13/2023 from 25 mg BID & 50 mg QHS * continue haloperidol decanoate 200 mg HAYES - received on 04/03/2023 * continue haloperidol 10 mg TID - reduced to this dose on 04/02/2023 when decanoate was started * continue venlafaxine ER 75 mg daily - started 03/28/2023 04/13/2023: * continue chlropromazine 25 mg QAM, 25 mg QPM, 50mg QHS - adjusted to this schedule on 04/02/2023 * continue haloperidol decanoate 200 mg HAYES - received on 04/03/2023 * continue haloperidol 10 mg TID - reduced to this dose on 04/02/2023 when decanoate was started * continue venlafaxine ER 75 mg daily - started 03/28/2023 04/12/2023: * continue chlropromazine 25 mg QAM, 25 mg QPM, 50mg QHS - adjusted to this schedule on 04/02/2023 * continue haloperidol decanoate 200 mg HAYES - received on 04/03/2023 * continue haloperidol 10 mg TID - reduced to this dose on 04/02/2023 when d ecanoate was started * continue venlafaxine ER 75 mg daily - started 03/28/2023 04/11/2023: * continue chlropromazine 25 mg QAM, 25 mg QPM, 50mg QHS - adjusted to this schedule on 04/02/2023 * continue haloperidol decanoate 200 mg HAYES - received on 04/03/2023 * continue haloperidol 10 mg TID - reduced to this dose on 04/02/2023 when decanoate was started * continue venlafaxine ER 75 mg daily - started 03/28/2023 04/10/2023: * continue chlropromazine 25 mg QAM, 25 mg QPM, 50mg QHS - adjusted to this schedule on 04/02/2023 * continue haloperidol decanoate 200 mg HAYES - received on 04/03/2023 * continue haloperidol 10 mg TID - reduced to this dose on 04/02/2023 when decanoate was started * continue venlafaxine ER 75 mg daily - started 03/28/2023 04/05/2023: Additional Haldol decanoate 200mg HAYES, continue po thorazine and po haldol 04/04/2023: Continue current medications and tx plan. Consider additional dose of haldol decanoate 100-200mg HAYES tomorrow. 04/03/2023: * thorazine 25mg qAM, 25mg qdinner, 50mg HS * haldol decanoate 200mg HAYES-- received on 04/03/2023 * haldol po 10mg TID * Effexor ER 75mg daily 04/02/2023: thorazine 25 mg am and pm meal, 50 mg hs with additional 25 mg prn. Patient now agreeable to Haldol dec. Will decrease to 10 mg TID as interval increase of midday dose to 20 mg has not helped with pm breakthrough. Will load 200 mg dose today with additional 100-200 mg loading and PO Haldol taper per Dr. Smith. 04/01/2023: ortho cleared patient, he can discontinue boot at his own comfort, his residual foot deformity does not require surgery 03/28/2023: diversion meeting outcome is all community resources have been exhausted and patient will remain referred to [facility]. repeat foot x ray tomorrow. Patient desires d/c trazodone. completed quality case review with [facility] peer to peer Dr. Jimenez discussing that patient has repeatedly refused clozaril and HAYES and prefers thorazine/haldol component, current doses are best for his BP. Discussed rationale for low dose Effexor XR. Patient has become agitated/disinhibited on higher doses of antidepressants in past so I would not titrate. 03/25/2023: * Consolidate thorazine to 75mg HS * Continue haldol 10mg qAM, 20mg miday and 10mg HS 03/22/2023: * increase haloperidol to 10 mg qAM, 20mg midday and 10mg HS- started this schedule 03/22/2023 * consolidate chlorpromazine to 25mg qAM and 50mg HS 03/21/2023: * continue haloperidol 10 mg TID - started this schedule 03/03/2023 * consolidate chlorpromazine to 25mg qAM and 50mg HS 03/20/2023: * continue haloperidol 10 mg TID - started this schedule 03/03/2023 * continue chlorpromazine 25 mg TID - resumed 03/17/2023 * change cogentin from HS scheduled to HS prn use for muscle stiffness to reduce polypharmacy 03/18/2023: * continue haloperidol 10 mg TID - started this schedule 03/03/2023 * continue chlorpromazine 25 mg TID - resumed 03/17/2023 * was committed for extended treatment at 304 hearing today, plan to pursue [facility] hospital transfer 03/17/2023: * continue haloperidol 10 mg TID - started this schedule 03/03/2023 * increase chlorpromazine to 25 mg TID * probable 304 hearing on February 03/07/2023: Start trazodone 100mg HS po. Continue haldol 10mg TID po 03/03/2023: unable to resume thorazine, offered to try splitting Haldol to TID to see if any improvement in orthostasis. 03/02/2023: The patient was admitted to the [facility]) on q15 min checks (behavioral with suicide precautions) for safety. The patient will participate in group, recreational, and milieu therapies and will be offered additional individual and family sessions as clinically appropriate. Continue to hold thorazine and monitor BP. Inventory Assets Strengths: taking PO meds, cooperative with tx plan Needs: longer term hospitalization, medical monitoring Suicide Risk Level Suicide Risk Level: Moderate (q15 min suicide checks) (ongoing psychosis but has been consistently denying SI, agrees to let staff know if he feels unsafe or feels in need of additional support) Risk Factors Assessment Male: Yes : Yes Do You Have Access To A Gun?: No Mental Health Diagnoses: Yes Previous Attempt: Yes Previous Psychiatric Hospitalization: Yes Protective Factors Assessment Employed: No Interval History Identifying Information CASEY DAMIAN is a 52-year-old man who lives in a [facility] longterm with a history of schizophrenia, who eloped after returning to his longterm and was found by police wandering with concern for dehydration due to hot temperatures/humidity. He is on a 304 commitment as of 03/18/2023. Chief Complaint "not as good today." Review of Systems Sleep Information Total Hours of Sleep: 7.25 Sleep Comments: PRN Vistaril given per request Meal Information Percent Meal Consumed - Breakfast: 100 Percent Meal Consumed - Lunch: 100 Percent Meal Consumed - Dinner: 0 Subjective Subjective Patient was seen & assessed and interval progress reviewed with nursing and social work. Patient started to have an increase in fall last pm after successful therapeutic time outside. He declined dinner. Still wakes up over night but "likes" thorazine overall." Did not attend groups today. 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 but more sense that "the remy that be are working against me." Physical Exam Psychiatric Orientation: alert Apperance: appropriately groomed Eye Contact: + fair eye contact Motor Behavior: no abnormal motor movements Speech: + abnormal rate/rhythm/volume of speech (less spontaneous) Affect: + depressed affect Mood: + depressed mood Thought Process: + concrete thought process Thought Content: + delusions and + persecution Suicidal Thoughts: denies suicidal thoughts Homicidal Thoughts: denies homicidal thoughts Hallucinations: + auditory hallucinations Cognition: language grossly intact Estimated Intelligence: consistent with education level Insight: + limited insight Judgment: + limited judgement Vital Signs (Past 24 Hours) Last Vital Signs Temp 36.9 C 04/27/23 06:42 Pulse 114 H 04/27/23 06:42 Resp 16 04/27/23 06:42 BP 108/73 04/27/23 06:42 Pulse Ox 100 04/23/23 06:00 O2 Del Method Room Air 04/23/23 06:00 Results & Data ([facility]) Current Inpatient Medications Current Inpatient Medications: Current Inpatient Medications Al Hydrox/Mg Hydrox/Simethicone (Aluminum/Magnesium Susp 30 Ml Udc) 30 ml PO Q4H PRN PRN Reason: GI Upset Stop: 05/10/23 01:01 Chlorpromazine HCl (Chlorpromazine Hcl 25 Mg Tab) 50 mg PO [id number] [facility] Stop: 05/22/23 06:59 Last Admin: 04/27/23 13:15 Dose: 50 mg Chlorpromazine HCl (Chlorpromazine Hcl 25 Mg Tab) 50 mg PO Q6 PRN PRN Reason: psychosis Stop: 05/01/23 18:21 Last Admin: 04/26/23 22:07 Dose: 50 mg Chlorpromazine HCl (Chlorpromazine Hcl 100 Mg Tab) 300 mg PO DAILY@2030 JOSEMANUEL Stop: 05/26/23 20:29 Last Admin: 04/26/23 19:57 Dose: 300 mg Docusate Sodium (Docusate Sodium 100 Mg Cap) 200 mg PO HS [facility] Stop: 05/01/23 21:59 Last Admin: 04/26/23 19:59 Dose: Not Given Haloperidol (Haloperidol 5 Mg Tab) 10 mg PO BIDM [facility] Stop: 05/27/23 17:44 Hydroxyzine HCl (Hydroxyzine Hcl 25 Mg Tab) 25 mg PO Q4H PRN PRN Reason: Anxiety Stop: 05/10/23 00:53 Last Admin: 04/26/23 18:57 Dose: 25 mg Hydroxyzine HCl (Hydroxyzine Hcl 25 Mg Tab) 50 mg PO HSZ PRN PRN Reason: Insomnia Stop: 05/10/23 00:55 Last Admin: 04/27/23 02:49 Dose: 50 mg Magnesium Hydroxide (Magnesium Hydroxide Susp 30 Ml Udc) 30 ml PO DAILY PRN PRN Reason: Constipation Stop: 05/10/23 00:58 Venlafaxine HCl (Venlafaxine Hcl Xr 75 Mg Capxr) 75 mg PO QAM JOSEMANUEL Stop: 05/01/23 08:59 Last Admin: 04/27/23 09:04 Dose: 75 mg Mental Health & Subst Abuse Tx Therapist Name of Therapist: Lala
[2023-04-27] MEDS: DOCUSATE SODIUM 100 MG CAP PO SCH (20:40)
[2023-04-28] MEDS: hydrOXYzine HCl 25 MG TAB PO PRN (03:39)
[2023-04-28] MEDS: VENLAFAXINE HCL XR 75 MG CAPXR PO SCH (09:06)
[2023-04-28] MEDS: chlorproMAZINE HCL 25 MG TAB PO SCH ×2 (09:06→14:07)
[2023-04-28] MEDS: haloperidoL 5 MG TAB PO SCH ×2 (09:08→19:31)
--- NOTE | 2023-04-28 14:10 | Psychiatric Progress Note ---
Date of Service April 28, 2023 Impression / Recommendations Impression 52 yo man with schizophrenia with multiple recent psychiatric hospitalizations after each has eloped from his long-term. On 304 commitment and accepted to [facility]. No current bed date. MNPR due to psychosis and limited ability to tolerate peers and hx of aggression with delusions 04/28/2023: stabilizing Overall, I spent a total of 37 minutes with this case including review of chart records, direct evaluation of the patient, discussion with nursing, and documentation in the electronic health record. (1) Schizophrenia: (2) Paranoid: Plan 04/28/2023: continue current meds and tx plan, discussed Depakote augmentation if fails to make steady improvement. 04/27/2023: slow rate of Haldol taper--resume 10 mg BID meals and monitor BP on higher dose of thorazine. If symptoms persist, he may be agreeable to trial of clozaril in place of thorazine and/or depakote. Still a week out from Haldol dec. 04/26/2023: titrate hs thorazine, continue Haldol taper (oral, patient received dec) due on or before 05/05/23. 04/25/2023: d/c hs Haldol in favor of increase in thorazine to 200 mg hs. monitor for orthostasis 04/23/2023: * Chlorpromazine 50mg qAM and 50mg qafternoon and 100mg HS - increased 04/21/2023 from 50mg HS to 100mg HS * continue haloperidol decanoate total of 400mg HAYES over two days; 200 mg HAYES - received on 04/03/2023 and additional 200mg HAYES - received on 04/05/2023 * increase haloperidol po back to 10mg TID - reduced to 5 TID on 04/21/2023 with worsening hallucinations, previously reduced to 10mg TID dose on 04/02/2023 when decanoate was started * continue venlafaxine ER 75 mg daily - started 03/28/2023 04/21/2023: * Chlorpromazine 50mg qAM and 50mg qafternoon and 100mg HS - increased 04/21/2023 from 50mg HS to 100mg HS * continue haloperidol decanoate total of 400mg HAYES over two days; 200 mg HAYES - received on 04/03/2023 and additional 200mg HAYES - received on 04/05/2023 * decrease haloperidol po to 5 mg TID - reduced from 10 mg TID, previously reduced to 10mg TID dose on 04/02/2023 when decanoate was started * continue venlafaxine ER 75 mg daily - started 03/28/2023 04/17/2023: * continue chlropromazine 50mg TID - increased 04/13/2023 from 25 mg BID & 50 mg QHS * continue haloperidol decanoate total of 400mg HAYES over two days; 200 mg HAYES - received on 04/03/2023 and additional 200mg HAYES - received on 04/05/2023 * continue haloperidol 10 mg TID - reduced to this dose on 04/02/2023 when decanoate was started * continue venlafaxine ER 75 mg daily - started 03/28/2023 04/16/2023: * continue chlropromazine 50mg TID - increased 04/13/2023 from 25 mg BID & 50 mg QHS * continue haloperidol decanoate 200 mg HAYES - received on 04/03/2023 * continue haloperidol 10 mg TID - reduced to this dose on 04/02/2023 when decanoate was started * continue venlafaxine ER 75 mg daily - started 03/28/2023 04/15/2023: * continue chlropromazine 50mg TID - increased 04/13/2023 from 25 mg BID & 50 mg QHS * continue haloperidol decanoate 200 mg HAYES - received on 04/03/2023 * continue haloperidol 10 mg TID - reduced to this dose on 04/02/2023 when decanoate was started * continue venlafaxine ER 75 mg daily - started 03/28/2023 04/14/2023: * continue chlropromazine 50mg TID - increased 04/13/2023 from 25 mg BID & 50 mg QHS * continue haloperidol decanoate 200 mg HAYES - received on 04/03/2023 * continue haloperidol 10 mg TID - reduced to this dose on 04/02/2023 when decanoate was started * continue venlafaxine ER 75 mg daily - started 03/28/2023 04/13/2023: * continue chlropromazine 25 mg QAM, 25 mg QPM, 50mg QHS - adjusted to this schedule on 04/02/2023 * continue haloperidol decanoate 200 mg HAYES - received on 04/03/2023 * continue haloperidol 10 mg TID - reduced to this dose on 04/02/2023 when decanoate was started * continue venlafaxine ER 75 mg daily - started 03/28/2023 04/12/2023: * continue chlropromazine 25 mg QAM, 25 mg QPM, 50mg QHS - adjusted to this schedule on 04/02/2023 * continue haloperidol decanoate 200 mg HAYES - received on 04/03/2023 * continue haloperidol 10 mg TID - reduced to this dose on 04/02/2023 when decanoate was started * continue venlafaxine ER 75 mg daily - started 03/28/2023 04/11/2023: * continue chlropromazine 25 mg QAM, 25 mg QPM, 50mg QHS - adjusted to this schedule on 04/02/2023 * continue haloperidol decanoate 200 mg HAYES - received on 04/03/2023 * continue haloperidol 10 mg TID - reduced to this dose on 04/02/2023 when decanoate was started * continue venlafaxine ER 75 mg daily - started 03/28/2023 04/10/2023: * continue chlropromazine 25 mg QAM, 25 mg QPM, 50mg QHS - adjusted to this schedule on 04/02/2023 * continue haloperidol decanoate 200 mg HAYES - received on 04/03/2023 * continue haloperidol 10 mg TID - reduced to this dose on 04/02/2023 when decanoate was started * continue venlafaxine ER 75 mg daily - started 03/28/2023 04/05/2023: Additional Haldol decanoate 200mg HAYES, continue po thorazine and po haldol 04/04/2023: Continue current medications and tx plan. Consider additional dose of haldol decanoate 100-200mg HAYES tomorrow. 04/03/2023: * thorazine 25mg qAM, 25mg qdinner, 50mg HS * haldol decanoate 200mg HAYES-- received on 04/03/2023 * haldol po 10mg TID * Effexor ER 75mg daily 04/02/2023: thorazine 25 mg am and pm meal, 50 mg hs with additional 25 mg prn. Patient now agreeable to Haldol dec. Will decrease to 10 mg TID as interval increase of midday dose to 20 mg has not helped with pm breakthrough. Will load 200 mg dose today with additional 100-200 mg loading and PO Haldol taper per Dr. Smith. 04/01/2023: ortho cleared patient, he can discontinue boot at his own comfort, his residual foot deformity does not require surgery 03/28/2023: diversion meeting outcome is all community resources have been exhausted and patient will remain referred to [facility]. repeat foot x ray tomorrow. Patient desires d/c trazodone. completed quality case [facility] peer to peer Dr. Jimenez discussing that patient has repeatedly refused clozaril and HAYES and prefers thorazine/haldol component, current doses are best for his BP. Discussed rationale for low dose Effexor XR. Patient has become agitated/disinhibited on higher doses of antidepressants in past so I would not titrate. 03/25/2023: * Consolidate thorazine to 75mg HS * Continue haldol 10mg qAM, 20mg miday and 10mg HS 03/22/2023: * increase haloperidol to 10 mg qAM, 20mg midday and 10mg HS- started this schedule 03/22/2023 * consolidate chlorpromazine to 25mg qAM and 50mg HS 03/21/2023: * continue haloperidol 10 mg TID - started this schedule 03/03/2023 * consolidate chlorpromazine to 25mg qAM and 50mg HS 03/20/2023: * continue haloperidol 10 mg TID - started this schedule 03/03/2023 * continue chlorpromazine 25 mg TID - resumed 03/17/2023 * change cogentin from HS scheduled to HS prn use for muscle stiffness to reduce polypharmacy 03/18/2023: * continue haloperidol 10 mg TID - started this schedule 03/03/2023 * continue chlorpromazine 25 mg TID - resumed 03/17/2023 * was committed for extended treatment at 304 hearing today, plan to pursue [facility] hospital transfer 03/17/2023: * continue haloperidol 10 mg TID - started this schedule 03/03/2023 * increase chlorpromazine to 25 mg TID * probable 304 hearing on February 03/07/2023: Start trazodone 100mg HS po. Continue haldol 10mg TID po 03/03/2023: unable to resume thorazine, offered to try splitting Haldol to TID to see if any improvement in orthostasis. 03/02/2023: The patient was admitted to the [facility] ([facility]) on q15 min checks (behavioral with suicide precautions) for safety. The patient will participate in group, recreational, and milieu therapies and will be offered additional individual and family sessions as clinically appropriate. Continue to hold thorazine and monitor BP. Inventory Assets Strengths: taking PO meds, cooperative with tx plan Needs: longer term hospitalization, medical monitoring Suicide Risk Level Suicide Risk Level: Moderate (q15 min suicide checks) (ongoing psychosis but has been consistently denying SI, agrees to let staff know if he feels unsafe or feels in need of additional support) Risk Factors Assessment Male: Yes : Yes Do You Have Access To A Gun?: No Mental Health Diagnoses: Yes Previous Attempt: Yes Previous Psychiatric Hospitalization: Yes Protective Factors Assessment Employed: No Interval History Identifying Information CASEY DAMIAN is a 52-year-old man who lives in a [place] psychiatric long-term with a history of schizophrenia, who eloped after returning to his long-term and was found by police wandering with concern for dehydration due to hot temperatures/humidity. He is on a 304 commitment as of 03/18/2023. Chief Complaint "I felt a little better yesterday afternoon". Review of Systems Sleep Information Total Hours of Sleep: 8 Sleep Comments: PRN Vistaril given per request Meal Information Percent Meal Consumed - Breakfast: 100 Percent Meal Consumed - Lunch: 100 Percent Meal Consumed - Dinner: 100 Subjective Subjective Patient was seen & assessed and interval progress reviewed with treatment team. Patient has been hearing voices. Went to unlocked seclusion room briefly last pm for quiet as the carpets were being cleaned, no agitation. Remains med compliant and although not fully reintegrated into groups, seems to be sleeping better and less paranoid. Physical Exam Psychiatric Orientation: alert Apperance: appropriately dressed and appropriately groomed Eye Contact: good eye contact Motor Behavior: no abnormal motor movements Speech: normal rate/rhythm/volume of speech Affect: no depressed affect Mood: no depressed mood Thought Process: + concrete thought process Thought Content: + delusions Suicidal Thoughts: denies suicidal thoughts Homicidal Thoughts: denies homicidal thoughts Hallucinations: no auditory hallucinations (though reports intermittent) and no visual hallucinations Cognition: attention grossly intact and language grossly intact Estimated Intelligence: consistent with education level Insight: + limited insight Judgment: + limited judgement Vital Signs (Past 24 Hours) Last Vital Signs Temp 36.5 C 04/28/23 06:36 Pulse 90 04/28/23 06:36 Resp 16 04/28/23 06:36 BP 95/65 L 04/28/23 06:36 Pulse Ox 100 04/23/23 06:00 O2 Del Method Room Air 04/23/23 06:00 Results & Data ([facility]) Current Inpatient Medications Current Inpatient Medications: Current Inpatient Medications Al Hydrox/Mg Hydrox/Simethicone (Aluminum/Magnesium Susp 30 Ml Udc) 30 ml PO Q4H PRN PRN Reason: GI Upset Stop: 05/10/23 01:01 Chlorpromazine HCl (Chlorpromazine Hcl 25 Mg Tab) 50 mg PO [id number] [facility] Stop: 05/22/23 06:59 Last Admin: 04/28/23 09:06 Dose: 50 mg Chlorpromazine HCl (Chlorpromazine Hcl 25 Mg Tab) 50 mg PO Q6 PRN PRN Reason: psychosis Stop: 05/01/23 18:21 Last Admin: 04/26/23 22:07 Dose: 50 mg Chlorpromazine HCl (Chlorpromazine Hcl 100 Mg Tab) 300 mg PO DAILY@2030 [facility] Stop: 05/26/23 20:29 Last Admin: 04/27/23 20:39 Dose: 300 mg Docusate Sodium (Docusate Sodium 100 Mg Cap) 200 mg PO HS [facility] Stop: 05/01/23 21:59 Last Admin: 04/27/23 20:40 Dose: 200 mg Haloperidol (Haloperidol 5 Mg Tab) 10 mg PO BIDM [facility] Stop: 05/27/23 17:44 Last Admin: 04/28/23 09:08 Dose: 10 mg Hydroxyzine HCl (Hydroxyzine Hcl 25 Mg Tab) 25 mg PO Q4H PRN PRN Reason: Anxiety Stop: 05/10/23 00:53 Last Admin: 04/28/23 03:39 Dose: 25 mg Hydroxyzine HCl (Hydroxyzine Hcl 25 Mg Tab) 50 mg PO HSZ PRN PRN Reason: Insomnia Stop: 05/10/23 00:55 Last Admin: 04/27/23 02:49 Dose: 50 mg Magnesium Hydroxide (Magnesium Hydroxide Susp 30 Ml Udc) 30 ml PO DAILY PRN PRN Reason: Constipation Stop: 05/10/23 00:58 Venlafaxine HCl (Venlafaxine Hcl Xr 75 Mg Capxr) 75 mg PO QAM [facility] Stop: 05/01/23 08:59 Last Admin: 04/28/23 09:06 Dose: 75 mg Mental Health & Subst Abuse Tx Therapist Name of Therapist: Lala
[2023-04-28] MEDS: DOCUSATE SODIUM 100 MG CAP PO SCH (20:49)
[2023-04-29] MEDS: hydrOXYzine HCl 25 MG TAB PO PRN (05:27)
[2023-04-29] MEDS: chlorproMAZINE HCL 25 MG TAB PO SCH ×2 (06:47→14:31)
[2023-04-29] MEDS: haloperidoL 5 MG TAB PO SCH ×2 (09:02→17:50)
[2023-04-29] MEDS: VENLAFAXINE HCL XR 75 MG CAPXR PO SCH (09:03)
--- NOTE | 2023-04-29 17:14 | Psychiatric Progress Note ---
Date of Service April 29, 2023 Impression / Recommendations Impression 52 yo man with schizophrenia with multiple recent psychiatric hospitalizations after each has eloped from his alf. On 304 commitment and accepted to [facility]. No current bed date. MNPR due to psychosis and limited ability to tolerate peers and hx of aggression with delusions 04/29/2023: unchanged Overall, I spent a total of 22 minutes with this case including review of chart records, direct evaluation of the patient, discussion with nursing, and documentation in the electronic health record. Plan: continue current meds and tx plan. (1) Schizophrenia: (2) Paranoid: Inventory Assets Strengths: taking PO meds, cooperative with tx plan Needs: longer term hospitalization, medical monitoring Suicide Risk Level Suicide Risk Level: Moderate (q15 min suicide checks) Risk Factors Assessment Male: Yes : Yes Do You Have Access To A Gun?: No Mental Health Diagnoses: Yes Previous Attempt: Yes Previous Psychiatric Hospitalization: Yes Protective Factors Assessment Employed: No Interval History Identifying Information CASEY DAMIAN is a 52-year-old man who lives in a [place] psychiatric alf with a history of schizophrenia, who eloped after returning to his alf and was found by police wandering with concern for dehydration due to hot temperatures/humidity. He is on a 304 commitment as of 03/18/2023. Chief Complaint awaiting placement Review of Systems Sleep Information Total Hours of Sleep: 6.5 Sleep Comments: PRN Vistaril given per request Meal Information Percent Meal Consumed - Breakfast: 100 Percent Meal Consumed - Lunch: 100 Percent Meal Consumed - Dinner: 100 Subjective Subjective Patient was seen & assessed and interval progress reviewed with nursing and social work. Patient out of room more again yesterday. Reports fewer fall and better sleep. Physical Exam Psychiatric alert, cooperative, no abnormal motor movements, thoughts concrete but otherwise organized, did not appear to be responding to internal stimuli Vital Signs (Past 24 Hours) Last Vital Signs Temp 36.5 C 04/29/23 06:42 Pulse 89 04/29/23 06:42 Resp 16 04/29/23 06:42 BP 101/67 04/29/23 06:42 Pulse Ox 100 04/23/23 06:00 O2 Del Method Room Air 04/23/23 06:00 Results & Data (U) Current Inpatient Medications Current Inpatient Medications: Current Inpatient Medications Al Hydrox/Mg Hydrox/Simethicone (Aluminum/Magnesium Susp 30 Ml Udc) 30 ml PO Q4H PRN PRN Reason: GI Upset Stop: 05/10/23 01:01 Chlorpromazine HCl (Chlorpromazine Hcl 25 Mg Tab) 50 mg PO [id number] [facility] Stop: 05/22/23 06:59 Last Admin: 04/29/23 14:31 Dose: 50 mg Chlorpromazine HCl (Chlorpromazine Hcl 25 Mg Tab) 50 mg PO Q6 PRN PRN Reason: psychosis Stop: 05/01/23 18:21 Last Admin: 04/26/23 22:07 Dose: 50 mg Chlorpromazine HCl (Chlorpromazine Hcl 100 Mg Tab) 300 mg PO DAILY@2030 [facility] Stop: 05/26/23 20:29 Last Admin: 04/28/23 20:50 Dose: 300 mg Docusate Sodium (Docusate Sodium 100 Mg Cap) 200 mg PO HS [facility] Stop: 05/01/23 21:59 Last Admin: 04/28/23 20:49 Dose: 200 mg Haloperidol (Haloperidol 5 Mg Tab) 10 mg PO BIDM [facility] Stop: 05/27/23 17:44 Last Admin: 04/29/23 09:02 Dose: 10 mg Hydroxyzine HCl (Hydroxyzine Hcl 25 Mg Tab) 25 mg PO Q4H PRN PRN Reason: Anxiety Stop: 05/10/23 00:53 Last Admin: 04/29/23 05:27 Dose: 25 mg Hydroxyzine HCl (Hydroxyzine Hcl 25 Mg Tab) 50 mg PO HSZ PRN PRN Reason: Insomnia Stop: 05/10/23 00:55 Last Admin: 04/27/23 02:49 Dose: 50 mg Magnesium Hydroxide (Magnesium Hydroxide Susp 30 Ml Udc) 30 ml PO DAILY PRN PRN Reason: Constipation Stop: 05/10/23 00:58 Venlafaxine HCl (Venlafaxine Hcl Xr 75 Mg Capxr) 75 mg PO QAM [facility] Stop: 05/01/23 08:59 Last Admin: 04/29/23 09:03 Dose: 75 mg Mental Health & Subst Abuse Tx Therapist Name of Therapist: Lala
[2023-04-29] MEDS: DOCUSATE SODIUM 100 MG CAP PO SCH (20:31)
[2023-04-30] MEDS: hydrOXYzine HCl 25 MG TAB PO PRN (03:04)
[2023-04-30] MEDS: chlorproMAZINE HCL 25 MG TAB PO SCH ×2 (06:45→14:37)
[2023-04-30] MEDS: haloperidoL 5 MG TAB PO SCH ×2 (09:35→17:51)
[2023-04-30] MEDS: VENLAFAXINE HCL XR 75 MG CAPXR PO SCH (09:35)
--- NOTE | 2023-04-30 15:29 | Psychiatric Progress Note ---
Date of Service April 30, 2023 Impression / Recommendations Impression 52 yo man with schizophrenia with multiple recent psychiatric hospitalizations after each has eloped from his half-way. On [facility] commitment [facility]. No current bed date. MNPR due to psychosis and limited ability to tolerate peers and hx of aggression with delusions 04/30/2023: [facility] Plan: continue current meds and tx plan. (1) Schizophrenia: (2) Paranoid: Inventory Assets Strengths: taking PO meds, cooperative with tx plan Needs: longer term hospitalization, medical monitoring Suicide Risk Level Suicide Risk Level: Moderate (q15 min suicide checks) Risk Factors Assessment Male: Yes : Yes Do You Have Access To A Gun?: No Mental Health Diagnoses: Yes Previous Attempt: Yes Previous Psychiatric Hospitalization: Yes Protective Factors Assessment Employed: No Interval History Identifying Information CASEY DAMIAN is a 52-year-old man who lives in a [place] psychiatric half-way with a history of schizophrenia, who eloped after returning to his half-way and was found by police wandering with concern for dehydration due to hot temperatures/humidity. He is on a 304 commitment as of 03/18/2023. Chief Complaint "I'm pretty good." Review of Systems Sleep Information Total Hours of Sleep: 7 Sleep Comments: PRN Vistaril given per request Meal Information Percent Meal Consumed - Breakfast: 100 Percent Meal Consumed - Lunch: 100 Percent Meal Consumed - Dinner: 100 Subjective Subjective Patient was seen & assessed and interval progress reviewed with treatment team. continues to wake up once a night, attending more social activities/group again. Physical Exam Psychiatric alert, cooperative, speech normal, no abnormal motor movement, thoughts concrete. intermittent fall doesn't respond at this time. Vital Signs (Past 24 Hours) Last Vital Signs Temp 36.5 C 04/30/23 06:47 Pulse 80 04/30/23 06:47 Resp 16 04/30/23 06:47 BP 120/77 04/30/23 06:47 Pulse Ox 100 04/23/23 06:00 O2 Del Method Room Air 04/23/23 06:00 Results & Data ([facility]) Current Inpatient Medications Current Inpatient Medications: Current Inpatient Medications Al Hydrox/Mg Hydrox/Simethicone (Aluminum/Magnesium Susp 30 Ml Udc) 30 ml PO Q4H PRN PRN Reason: GI Upset Stop: 05/10/23 01:01 Chlorpromazine HCl (Chlorpromazine Hcl 25 Mg Tab) 50 mg PO [id number] [facility] Stop: 05/22/23 06:59 Last Admin: 04/30/23 14:37 Dose: 50 mg Chlorpromazine HCl (Chlorpromazine Hcl 25 Mg Tab) 50 mg PO Q6 PRN PRN Reason: psychosis Stop: 05/31/23 18:21 Last Admin: 04/26/23 22:07 Dose: 50 mg Chlorpromazine HCl (Chlorpromazine Hcl 100 Mg Tab) 300 mg PO DAILY@2030 [facility] Stop: 05/26/23 20:29 Last Admin: 04/29/23 20:29 Dose: 300 mg Docusate Sodium (Docusate Sodium 100 Mg Cap) 200 mg PO HS [facility] Stop: 05/31/23 21:59 Last Admin: 04/29/23 20:31 Dose: Not Given Haloperidol (Haloperidol 5 Mg Tab) 10 mg PO BIDM [facility] Stop: 05/27/23 17:44 Last Admin: 04/30/23 09:35 Dose: 10 mg Hydroxyzine HCl (Hydroxyzine Hcl 25 Mg Tab) 25 mg PO Q4H PRN PRN Reason: Anxiety Stop: 05/10/23 00:53 Last Admin: 04/29/23 05:27 Dose: 25 mg Hydroxyzine HCl (Hydroxyzine Hcl 25 Mg Tab) 50 mg PO HSZ PRN PRN Reason: Insomnia Stop: 05/10/23 00:55 Last Admin: 04/30/23 03:04 Dose: 50 mg Magnesium Hydroxide (Magnesium Hydroxide Susp 30 Ml Udc) 30 ml PO DAILY PRN PRN Reason: Constipation Stop: 05/10/23 00:58 Venlafaxine HCl (Venlafaxine Hcl Xr 75 Mg Capxr) 75 mg PO QAM [facility] Stop: 05/01/23 08:59 Last Admin: 04/30/23 09:35 Dose: 75 mg Mental Health & Subst Abuse Tx Therapist Name of Therapist: Lala
[2023-04-30] MEDS: DOCUSATE SODIUM 100 MG CAP PO SCH (20:32)
[2023-05-01] MEDS: hydrOXYzine HCl 25 MG TAB PO PRN (02:47)
[2023-05-01] MEDS: chlorproMAZINE HCL 25 MG TAB PO SCH ×2 (06:41→14:19)
[2023-05-01] MEDS: haloperidoL 5 MG TAB PO SCH ×2 (08:46→17:26)
--- NOTE | 2023-05-01 09:55 | Psychiatric Progress Note ---
Date of Service May 01, 2023 Impression / Recommendations Impression 52 yo man with schizophrenia with multiple recent psychiatric hospitalizations after each has eloped from his retirement. On [facility] commitment [facility] No current bed date. [facility] due to psychosis and limited ability to tolerate peers and hx of aggression with delusions 05/01/2023: fairly stable with high doses of antipsychotics but degree of distress from hallucinations and intensity of hallucinations varies from day to day; awaiting state [facility] placement Plan: continue current meds and tx plan. (1) Schizophrenia: (2) Paranoid: Plan 04/28/2023: continue current meds and tx plan, discussed Depakote augmentation if fails to make steady improvement. 04/27/2023: slow rate of Haldol taper--resume 10 mg BID meals and monitor BP on higher dose of thorazine. If symptoms persist, he may be agreeable to trial of clozaril in place of thorazine and/or depakote. Still a week out from Haldol dec. 04/26/2023: titrate hs thorazine, continue Haldol taper (oral, patient received dec) due on or before 05/05/23. 04/25/2023: d/c hs Haldol in favor of increase in thorazine to 200 mg hs. monitor for orthostasis 04/23/2023: * Chlorpromazine 50mg qAM and 50mg qafternoon and 100mg HS - increased 04/21/2023 from 50mg HS to 100mg HS * continue haloperidol decanoate total of 400mg HAYES over two days; 200 mg HAYES - received on 04/03/2023 and additional 200mg HAYES - received on 04/05/2023 * increase haloperidol po back to 10mg TID - reduced to 5 TID on 04/21/2023 with worsening hallucinations, previously reduced to 10mg TID dose on 04/02/2023 when decanoate was started * continue venlafaxine ER 75 mg daily - started 03/28/2023 04/21/2023: * Chlorpromazine 50mg qAM and 50mg qafternoon and 100mg HS - increased 04/21/2023 from 50mg HS to 100mg HS * continue haloperidol decanoate total of 400mg HAYES over two days; 200 mg HAYES - received on 04/03/2023 and additional 200mg HAYES - received on 04/05/2023 * decrease haloperidol po to 5 mg TID - reduced from 10 mg TID, previously reduced to 10mg TID dose on 04/02/2023 when decanoate was started * continue venlafaxine ER 75 mg daily - started 03/28/2023 04/17/2023: * continue chlropromazine 50mg TID - increased 04/13/2023 from 25 mg BID & 50 mg QHS * continue haloperidol decanoate total of 400mg HAYES over two days; 200 mg HAYES - received on 04/03/2023 and additional 200mg HAYES - received on 04/05/2023 * continue haloperidol 10 mg TID - reduced to this dose on 04/02/2023 when decanoate was started * continue venlafaxine ER 75 mg daily - started 03/28/2023 04/16/2023: * continue chlropromazine 50mg TID - increased 04/13/2023 from 25 mg BID & 50 mg QHS * continue haloperidol decanoate 200 mg HAYES - received on 04/03/2023 * continue haloperidol 10 mg TID - reduced to this dose on 04/02/2023 when decanoate was started * continue venlafaxine ER 75 mg daily - started 03/28/2023 04/15/2023: * continue chlropromazine 50mg TID - increased 04/13/2023 from 25 mg BID & 50 mg QHS * continue haloperidol decanoate 200 mg HAYES - received on 04/03/2023 * continue haloperidol 10 mg TID - reduced to this dose on 04/02/2023 when decanoate was started * continue venlafaxine ER 75 mg daily - started 03/28/2023 04/14/2023: * continue chlropromazine 50mg TID - increased 04/13/2023 from 25 mg BID & 50 mg QHS * continue haloperidol decanoate 200 mg HAYES - received on 04/03/2023 * continue haloperidol 10 mg TID - reduced to this dose on 04/02/2023 when decanoate was started * continue venlafaxine ER 75 mg daily - started 03/28/2023 04/13/2023: * continue chlropromazine 25 mg QAM, 25 mg QPM, 50mg QHS - adjusted to this schedule on 04/02/2023 * continue haloperidol decanoate 200 mg HAYES - received on 04/03/2023 * continue haloperidol 10 mg TID - reduced to this dose on 04/02/2023 when decanoate was started * continue venlafaxine ER 75 mg daily - started 03/28/2023 04/12/2023: * continue chlropromazine 25 mg QAM, 25 mg QPM, 50mg QHS - adjusted to this schedule on 04/02/2023 * continue haloperidol decanoate 200 mg HAYES - received on 04/03/2023 * continue haloperidol 10 mg TID - reduced to this dose on 04/02/2023 when decanoate was started * continue venlafaxine ER 75 mg daily - started 03/28/2023 04/11/2023: * continue chlropromazine 25 mg QAM, 25 mg QPM, 50mg QHS - adjusted to this schedule on 04/02/2023 * continue haloperidol decanoate 200 mg HAYES - received on 04/03/2023 * continue haloperidol 10 mg TID - reduced to this dose on 04/02/2023 when decanoate was started * continue venlafaxine ER 75 mg daily - started 03/28/2023 04/10/2023: * continue chlropromazine 25 mg QAM, 25 mg QPM, 50mg QHS - adjusted to this schedule on 04/02/2023 * continue haloperidol decanoate 200 mg HAYES - received on 04/03/2023 * continue haloperidol 10 mg TID - reduced to this dose on 04/02/2023 when decanoate was started * continue venlafaxine ER 75 mg daily - started 03/28/2023 04/05/2023: Additional Haldol decanoate 200mg HAYES, continue po thorazine and po haldol 04/04/2023: Continue current medications and tx plan. Consider additional dose of haldol decanoate 100-200mg HAYES tomorrow. 04/03/2023: * thorazine 25mg qAM, 25mg qdinner, 50mg HS * haldol decanoate 200mg HAYES-- received on 04/03/2023 * haldol po 10mg TID * Effexor ER 75mg daily 04/02/2023: thorazine 25 mg am and pm meal, 50 mg hs with additional 25 mg prn. Patient now agreeable to Haldol dec. Will decrease to 10 mg TID as interval incr ease of midday dose to 20 mg has not helped with pm breakthrough. Will load 200 mg dose today with additional 100-200 mg loading and PO Haldol taper per Dr. Smith. 04/01/2023: ortho cleared patient, he can discontinue boot at his own comfort, his residual foot deformity does not require surgery 03/28/2023: diversion meeting outcome is all community resources have been exhausted and patient will remain referred to [facility]. repeat foot x ray tomorrow. Patient desires d/c trazodone. completed quality case review with [facility] peer to peer Dr. Jimenez discussing that patient has repeatedly refused clozaril and HAYES and prefers thorazine/haldol component, current doses are best for his BP. Discussed rationale for low dose Effexor XR. Patient has become agitated/disinhibited on higher doses of antidepressants in past so I would not titrate. 03/25/2023: * Consolidate thorazine to 75mg HS * Continue haldol 10mg qAM, 20mg miday and 10mg HS 03/22/2023: * increase haloperidol to 10 mg qAM, 20mg midday and 10mg HS- started this schedule 03/22/2023 * consolidate chlorpromazine to 25mg qAM and 50mg HS 03/21/2023: * continue haloperidol 10 mg TID - started this schedule 03/03/2023 * consolidate chlorpromazine to 25mg qAM and 50mg HS 03/20/2023: * continue haloperidol 10 mg TID - started this schedule 03/03/2023 * continue chlorpromazine 25 mg TID - resumed 03/17/2023 * change cogentin from HS scheduled to HS prn use for muscle stiffness to reduce polypharmacy 03/18/2023: * continue haloperidol 10 mg TID - started this schedule 03/03/2023 * continue chlorpromazine 25 mg TID - resumed 03/17/2023 * was committed for extended treatment at 304 hearing today, plan to pursue [facility] hospital transfer 03/17/2023: * continue haloperidol 10 mg TID - started this schedule 03/03/2023 * increase chlorpromazine to 25 mg TID * probable 304 hearing on February 03/07/2023: Start trazodone 100mg HS po. Continue haldol 10mg TID po 03/03/2023: unable to resume thorazine, offered to try splitting Haldol to TID to see if any improvement in orthostasis. 03/02/2023: The patient was admitted to the [facility] ([facility] mental health unit) on q15 min checks (behavioral with suicide precautions) for safety. The patient will participate in group, recreational, and milieu therapies and will be offered additional individual and family sessions as clinically appropriate. Continue to hold thorazine and monitor BP. Inventory Assets Strengths: taking PO meds, cooperative with tx plan Needs: longer term hospitalization, medical monitoring Suicide Risk Level Suicide Risk Level: Moderate (q15 min suicide checks) Risk Factors Assessment Male: Yes : Yes Do You Have Access To A Gun?: No Mental Health Diagnoses: Yes Previous Attempt: Yes Previous Psychiatric Hospitalization: Yes Protective Factors Assessment Employed: No Interval History Identifying Information CASEY DAMIAN is a 52-year-old man who lives in a [place] [facility] retirement with a history of schizophrenia, who eloped after returning to his retirement and was found by police wandering with concern for dehydration due to hot temperatures/humidity. He is on a 304 commitment as of 03/18/2023. Chief Complaint "I'm ok". Review of Systems Sleep Information Total Hours of Sleep: 6.5 Sleep Comments: PRN Vistaril given per request Meal Information Percent Meal Consumed - Breakfast: 100 Percent Meal Consumed - Lunch: 100 Percent Meal Consumed - Dinner: 100 Subjective Subjective Patient was seen & assessed and interval progress reviewed with treatment team nursing and social work. Attending some groups. Reports his mood is stable but also wonders about his Effexor stating "I've never dealt with depression since age 13" which is at odd's with past history and past reports of low mood. Denies any side effects from his medications. Feels recent trial to reduce haldol "put me near the cusp" and he is glad to be back on higher dose. Physical Exam Psychiatric Orientation: alert and oriented x 3 Apperance: appropriately dressed and appropriately groomed Eye Contact: good eye contact Motor Behavior: no abnormal motor movements Speech: normal rate/rhythm/volume of speech Affect: + constricted affect Mood: + anxious mood; no depressed mood Thought Process: + concrete thought process Thought Content: + delusions Suicidal Thoughts: denies suicidal thoughts Homicidal Thoughts: denies homicidal thoughts Hallucinations: no auditory hallucinations (though reports intermittent) and no visual hallucinations (at times will see people in trenchcoats) Cognition: attention grossly intact and language grossly intact Estimated Intelligence: consistent with education level Insight: + limited insight Judgment: + limited judgement Vital Signs (Past 24 Hours) Last Vital Signs Temp 36.8 C 05/01/23 07:06 Pulse 104 H 05/01/23 07:06 Resp 14 05/01/23 07:06 BP 107/67 05/01/23 07:06 Pulse Ox 100 04/23/23 06:00 O2 Del Method Room Air 04/23/23 06:00 Results & Data ([facility]) Current Inpatient Medications Current Inpatient Medications: Current Inpatient Medications Al Hydrox/Mg Hydrox/Simethicone (Aluminum/Magnesium Susp 30 Ml Udc) 30 ml PO Q4H PRN PRN Reason: GI Upset Stop: 05/10/23 01:01 Chlorpromazine HCl (Chlorpromazine Hcl 25 Mg Tab) 50 mg PO [id number] [facility] Stop: 05/22/23 06:59 Last Admin: 05/01/23 06:41 Dose: 50 mg Chlorpromazine HCl (Chlorpromazine Hcl 25 Mg Tab) 50 mg PO Q6 PRN PRN Reason: psychosis Stop: 05/31/23 18:21 Last Admin: 04/26/23 22:07 Dose: 50 mg Chlorpromazine HCl (Chlorpromazine Hcl 100 Mg Tab) 300 mg PO DAILY@2030 [facility] Stop: 05/26/23 20:29 Last Admin: 04/30/23 20:33 Dose: 300 mg Docusate Sodium (Docusate Sodium 100 Mg Cap) 200 mg PO HS [facility] Stop: 05/31/23 21:59 Last Admin: 04/30/23 20:32 Dose: 200 mg Haloperidol (Haloperidol 5 Mg Tab) 10 mg PO BIDM [facility] Stop: 05/27/23 17:44 Last Admin: 05/01/23 08:46 Dose: 10 mg Hydroxyzine HCl (Hydroxyzine Hcl 25 Mg Tab) 25 mg PO Q4H PRN PRN Reason: Anxiety Stop: 05/10/23 00:53 Last Admin: 04/29/23 05:27 Dose: 25 mg Hydroxyzine HCl (Hydroxyzine Hcl 25 Mg Tab) 50 mg PO HSZ PRN PRN Reason: Insomnia Stop: 05/10/23 00:55 Last Admin: 05/01/23 02:47 Dose: 50 mg Magnesium Hydroxide (Magnesium Hydroxide Susp 30 Ml Udc) 30 ml PO DAILY PRN PRN Reason: Constipation Stop: 05/10/23 00:58 Mental Health & Subst Abuse Tx Therapist Name of Therapist: Lala
[2023-05-01] MEDS: VENLAFAXINE HCL XR 75 MG CAPXR PO SCH (11:17)
[2023-05-01] MEDS: chlorproMAZINE HCL 25 MG TAB PO PRN (18:32)
[2023-05-01] MEDS: DOCUSATE SODIUM 100 MG CAP PO SCH (21:02)
[2023-05-02] MEDS: hydrOXYzine HCl 25 MG TAB PO PRN ×2 (03:19→23:19)
[2023-05-02] MEDS: chlorproMAZINE HCL 25 MG TAB PO SCH ×2 (06:53→13:14)
[2023-05-02] MEDS: VENLAFAXINE HCL XR 75 MG CAPXR PO SCH (08:37)
[2023-05-02] MEDS: haloperidoL 5 MG TAB PO SCH (08:38)
--- NOTE | 2023-05-02 10:15 | Psychiatric Progress Note ---
Date of Service May 02, 2023 Impression / Recommendations Impression 52 yo man with schizophrenia with multiple recent psychiatric hospitalizations after each has eloped from his intermediate. On 304 commitment and accepted to [facility]. No current bed date. MNPR due to psychosis and limited ability to tolerate peers and hx of aggression with delusions 05/02/2023: increased hallucinations last night and into today. Medication trials so far offering some benefit but not full resolution of symptoms and hallucinations continue to vary from day to day often not associated with particular medication adjustments or thus far identifiable stressors/precipitants. Given that he will be due for next haldol injection in two days now is a reasonable time to consider an alternative medication trial and given his history of stability on Invega and his request for risperidone tr ial this seems reasonable at this time. Will discontinue haldol and start risperidone. Patient would like to start and consented to risperidone for schizophrenia. Reviewed side effects including but not limited to: movement (TD, NMS), cardiac (QTc prolongation), and metabolic (stroke, insulin resistance) and necessity for fasting lipid and glucose labwork (done during this admission) and AIMS done with score of 0. Awaiting [facility] placement Overall, I spent a total of 25 minutes with this case including review of chart records, direct evaluation of the patient at bedside, counseling the patient, discussion during interdisciplinary treatment rounds, ordering medication, risk assessment, and documentation in the electronic health record. (1) Schizophrenia: (2) Paranoid: Plan 05/02/2023: * Discontinue haldol po * Start risperidone 1mg BID with 0.5mg BID prn for hallucinations * Continue thorazine 50mg qAM, 50mg qafternoon and 300mg HS --increased on 04/26/2023 * continue venlafaxine ER 75 mg daily - started 03/28/2023 * continue haloperidol decanoate total of 400mg HAYES over two days; 200 mg HAYES - received on 04/03/2023 and additional 200mg HAYES - received on 04/05/2023; likely will hold off on next dose pending risperidone trial 04/28/2023: continue current meds and tx plan, discussed Depakote augmentation if fails to make steady improvement. 04/27/2023: slow rate of Haldol taper--resume 10 mg BID meals and monitor BP on higher dose of thorazine. If symptoms persist, he may be agreeable to trial of clozaril in place of thorazine and/or depakote. Still a week out from Haldol dec. 04/26/2023: titrate hs thorazine, continue Haldol taper (oral, patient received dec) due on or before 05/05/23. 04/25/2023: d/c hs Haldol in favor of increase in thorazine to 200 mg hs. monitor for orthostasis 04/23/2023: * Chlorpromazine 50mg qAM and 50mg qafternoon and 100mg HS - increased 04/21/2023 from 50mg HS to 100mg HS * continue haloperidol decanoate total of 400mg HAYES over two days; 200 mg HAYES - received on 04/03/2023 and additional 200mg HAYES - received on 04/05/2023 * increase haloperidol po back to 10mg TID - reduced to 5 TID on 04/21/2023 with worsening hallucinations, previously reduced to 10mg TID dose on 04/02/2023 when decanoate was started * continue venlafaxine ER 75 mg daily - started 03/28/2023 04/21/2023: * Chlorpromazine 50mg qAM and 50mg qafternoon and 100mg HS - increased 04/21/2023 from 50mg HS to 100mg HS * continue haloperidol decanoate total of 400mg HAYES over two days; 200 mg HAYES - received on 04/03/2023 and additional 200mg HAYES - received on 04/05/2023 * decrease haloperidol po to 5 mg TID - reduced from 10 mg TID, previously reduced to 10mg TID dose on 04/02/2023 when decanoate was started * continue venlafaxine ER 75 mg daily - started 03/28/2023 04/17/2023: * continue chlropromazine 50mg TID - increased 04/13/2023 from 25 mg BID & 50 mg QHS * continue haloperidol decanoate total of 400mg HAYES over two days; 200 mg HAYES - received on 04/03/2023 and additional 200mg HAYES - received on 04/05/2023 * continue haloperidol 10 mg TID - reduced to this dose on 04/02/2023 when decanoate was started * continue venlafaxine ER 75 mg daily - started 03/28/2023 04/16/2023: * continue chlropromazine 50mg TID - increased 04/13/2023 from 25 mg BID & 50 mg QHS * continue haloperidol decanoate 200 mg HAYES - received on 04/03/2023 * continue haloperidol 10 mg TID - reduced to this dose on 04/02/2023 when decanoate was started * continue venlafaxine ER 75 mg daily - started 03/28/2023 04/15/2023: * continue chlropromazine 50mg TID - increased 04/13/2023 from 25 mg BID & 50 mg QHS * continue haloperidol decanoate 200 mg HAYES - received on 04/03/2023 * continue haloperidol 10 mg TID - reduced to this dose on 04/02/2023 when decanoate was started * continue venlafaxine ER 75 mg daily - started 03/28/2023 04/14/2023: * continue chlropromazine 50mg TID - increased 04/13/2023 from 25 mg BID & 50 mg QHS * continue haloperidol decanoate 200 mg HAYES - received on 04/03/2023 * continue haloperidol 10 mg TID - reduced to this dose on 04/02/2023 when decanoate was started * continue venlafaxine ER 75 mg daily - started 03/28/2023 04/13/2023: * continue chlropromazine 25 mg QAM, 25 mg QPM, 50mg QHS - adjusted to this schedule on 04/02/2023 * continue haloperidol decanoate 200 mg HAYES - received on 04/03/2023 * continue haloperidol 10 mg TID - reduced to this dose on 04/02/2023 when decanoate was started * continue venlafaxine ER 75 mg daily - started 03/28/2023 04/12/2023: * continue chlropromazine 25 mg QAM, 25 mg QPM, 50mg QHS - adjusted to this schedule on 04/02/2023 * continue haloperidol decanoate 200 mg HAYES - received on 04/03/2023 * continue haloperidol 10 mg TID - reduced to this dose on 04/02/2023 when decanoate was started * continue venlafaxine ER 75 mg daily - started 03/28/2023 04/11/2023: * continue chlropromazine 25 mg QAM, 25 mg QPM, 50mg QHS - adjusted to this schedule on 04/02/2023 * continue haloperidol decanoate 200 mg HAYES - received on 04/03/2023 * continue haloperidol 10 mg TID - reduced to this dose on 04/02/2023 when decanoate was started * continue venlafaxine ER 75 mg daily - started 03/28/2023 04/10/2023: * continue chlropromazine 25 mg QAM, 25 mg QPM, 50mg QHS - adjusted to this schedule on 04/02/2023 * continue haloperidol decanoate 200 mg HAYES - received on 04/03/2023 * continue haloperidol 10 mg TID - reduced to this dose on 04/02/2023 when decanoate was started * continue venlafaxine ER 75 mg daily - started 03/28/2023 04/05/2023: Additional Haldol decanoate 200mg HAYES, continue po thorazine and po haldol 04/04/2023: Continue current medications and tx plan. Consider additional dose of haldol decanoate 100-200mg HAYES tomorrow. 04/03/2023: * thorazine 25mg qAM, 25mg qdinner, 50mg HS * haldol decanoate 200mg HAYES-- received on 04/03/2023 * haldol po 10mg TID * Effexor ER 75mg daily 04/02/2023: thorazine 25 mg am and pm meal, 50 mg hs with additional 25 mg prn. Patient now agreeable to Haldol dec. Will decrease to 10 mg TID as interval increase of midday dose to 20 mg has not helped with pm breakthrough. Will load 200 mg dose today with additional 100-200 mg loading and PO Haldol taper per Dr. Smith. 04/01/2023: ortho cleared patient, he can discontinue boot at his own comfort, his residual foot deformity does not require surgery 03/28/2023: diversion meeting outcome is all community resources have been exhausted and patient will remain referred to [facility]. repeat foot x ray tomorrow. Patient desires d/c trazodone. completed quality case review with [facility] peer to peer Dr. Jimenez discussing that patient has repeatedly refused clozaril and HAYES and prefers thorazine/haldol component, current doses are best for his BP. Discussed rationale for low dose Effexor XR. Patient has become agitated/disinhibited on higher doses of antidepressants in past so I would not titrate. 03/25/2023: * Consolidate thorazine to 75mg HS * Continue haldol 10mg qAM, 20mg miday and 10mg HS 03/22/2023: * increase haloperidol to 10 mg qAM, 20mg midday and 10mg HS- started this schedule 03/22/2023 * consolidate chlorpromazine to 25mg qAM and 50mg HS 03/21/2023: * continue haloperidol 10 mg TID - started this schedule 03/03/2023 * consolidate chlorpromazine to 25mg qAM and 50mg HS 03/20/2023: * continue haloperidol 10 mg TID - started this schedule 03/03/2023 * continue chlorpromazine 25 mg TID - resumed 03/17/2023 * change cogentin from HS scheduled to HS prn use for muscle stiffness to reduce polypharmacy 03/18/2023: * continue haloperidol 10 mg TID - started this schedule 03/03/2023 * continue chlorpromazine 25 mg TID - resumed 03/17/2023 * was committed for extended treatment at 304 hearing today, plan to pursue [facility] transfer 03/17/2023: * continue haloperidol 10 mg TID - started this schedule 03/03/2023 * increase chlorpromazine to 25 mg TID * probable 304 hearing on February 03/07/2023: Start trazodone 100mg HS po. Continue haldol 10mg TID po 03/03/2023: unable to resume thorazine, offered to try splitting Haldol to TID to see if any improvement in orthostasis. 03/02/2023: The patient was [facility]) on q15 min checks (behavioral with suicide precautions) for safety. The patient will participate in group, recreational, and milieu therapies and will be offered additional individual and family sessions as clinically appropriate. Continue to hold thorazine and monitor BP. Inventory Assets Strengths: taking PO meds, cooperative with tx plan Needs: longer term hospitalization, medical monitoring Suicide Risk Level Suicide Risk Level: Moderate (q15 min suicide checks) (history of previous SI especially when distressed from auditory hallucinations prior to admission, for last few weeks has denied any SI consistently but mood worsens when hallucinations increase) Risk Factors Assessment Male: Yes : Yes Do You Have Access To A Gun?: No Mental Health Diagnoses: Yes Previous Attempt: Yes Previous Psychiatric Hospitalization: Yes Protective Factors Assessment Employed: No Interval History Identifying Information CASEY DAMIAN is a 52-year-old man who lives in a [facility] with a history of schizophrenia, who eloped after returning to his intermediate and was found by police wandering with concern for dehydration due to hot temperatures/humidity. He is on a 304 commitment as of 03/18/2023. Chief Complaint "It's mostly the hallucinations that get to me". Review of Systems Sleep Information Total Hours of Sleep: 6 Sleep Comments: PRN Vistaril given per request Meal Information Percent Meal Consumed - Breakfast: 100 Percent Meal Consumed - Lunch: 100 Percent Meal Consumed - Dinner: 100 Subjective Subjective Patient was seen & assessed and interval progress reviewed with treatment team nursing and social work. Bothered by a lot of hallucinations, both auditory and visual, last night. Struggled to go to sleep even with prn thorazine. This morning has continued to have auditory hallucinations, the voices are yelling and derogatory. This morning reports he's having a difficult day due to seeing the men in trenchcoats in his room who are talking and seeing himself fall into a garden. He wonders about trying risperidone stating this really helped him in the past, recalls being at a dose of 4mg BID. Recalls it "really cut down on the volume" of his hallucinations. Physical Exam Psychiatric Orientation: alert and oriented x 3 Apperance: appropriately dressed and appropriately groomed Eye Contact: good eye contact Motor Behavior: no abnormal motor movements Speech: normal rate/rhythm/volume of speech Affect: + constricted affect Mood: + anxious mood; no depressed mood Thought Process: + concrete thought process Thought Content: + delusions Suicidal Thoughts: denies suicidal thoughts Homicidal Thoughts: denies homicidal thoughts Hallucinations: + auditory hallucinations (intermittent) and + visual hallucinations (intermittently seeing people in trenchcoats, falling into a garden) Cognition: attention grossly intact and language grossly intact Estimated Intelligence: consistent with education level Insight: + limited insight Judgment: + limited judgement Vital Signs (Past 24 Hours) Last Vital Signs Temp 36.2 C L 05/02/23 06:00 Pulse 103 H 05/02/23 07:10 Resp 18 05/02/23 06:00 BP 91/70 L 05/02/23 07:10 Pulse Ox 100 04/23/23 06:00 O2 Del Method Room Air 04/23/23 06:00 Results & Data ([facility]) Current Inpatient Medications Current Inpatient Medications: Current Inpatient Medications Al Hydrox/Mg Hydrox/Simethicone (Aluminum/Magnesium Susp 30 Ml Udc) 30 ml PO Q4H PRN PRN Reason: GI Upset Stop: 05/10/23 01:01 Chlorpromazine HCl (Chlorpromazine Hcl 25 Mg Tab) 50 mg PO [id number] COUNT INCLUDES THE [facility] Stop: 05/22/23 06:59 Last Admin: 05/02/23 06:53 Dose: 50 mg Chlorpromazine HCl (Chlorpromazine Hcl 25 Mg Tab) 50 mg PO Q6 PRN PRN Reason: psychosis Stop: 05/31/23 18:21 Last Admin: 05/01/23 18:32 Dose: 50 mg Chlorpromazine HCl (Chlorpromazine Hcl 100 Mg Tab) 300 mg PO DAILY@2030 COUNT INCLUDES THE [facility] Stop: 05/26/23 20:29 Last Admin: 05/01/23 21:03 Dose: 300 mg Docusate Sodium (Docusate Sodium 100 Mg Cap) 200 mg PO HS JOSEMANUEL Stop: 05/31/23 21:59 Last Admin: 05/01/23 21:02 Dose: 200 mg Haloperidol (Haloperidol 5 Mg Tab) 10 mg PO BIDM COUNT INCLUDES THE [facility] Stop: 05/27/23 17:44 Last Admin: 05/02/23 08:38 Dose: 10 mg Hydroxyzine HCl (Hydroxyzine Hcl 25 Mg Tab) 25 mg PO Q4H PRN PRN Reason: Anxiety Stop: 05/10/23 00:53 Last Admin: 05/02/23 03:19 Dose: 25 mg Hydroxyzine HCl (Hydroxyzine Hcl 25 Mg Tab) 50 mg PO HSZ PRN PRN Reason: Insomnia Stop: 05/10/23 00:55 Last Admin: 05/01/23 02:47 Dose: 50 mg Magnesium Hydroxide (Magnesium Hydroxide Susp 30 Ml Udc) 30 ml PO DAILY PRN PRN Reason: Constipation Stop: 05/10/23 00:58 Venlafaxine HCl (Venlafaxine Hcl Xr 75 Mg Capxr) 75 mg PO QAM JOSEMANUEL Stop: 05/31/23 09:59 Last Admin: 05/02/23 08:37 Dose: 75 mg Mental Health & Subst Abuse Tx Therapist Name of Therapist: Lala
[2023-05-02] MEDS ORDERED: risperiDONE 0.5 MG TABLET PO PRN (11:14)
[2023-05-02] MEDS: risperiDONE 1 MG TABLET PO SCH ×2 (11:36→20:01)
[2023-05-02] MEDS: chlorproMAZINE HCL 25 MG TAB PO PRN (16:23)
[2023-05-02] MEDS: DOCUSATE SODIUM 100 MG CAP PO SCH (20:03)
[2023-05-03] MEDS: chlorproMAZINE HCL 25 MG TAB PO PRN ×2 (02:29→08:39)
[2023-05-03] MEDS: hydrOXYzine HCl 25 MG TAB PO PRN (04:50)
[2023-05-03] MEDS: chlorproMAZINE HCL 25 MG TAB PO SCH ×2 (07:06→14:15)
[2023-05-03] MEDS: VENLAFAXINE HCL XR 75 MG CAPXR PO SCH (08:39)
[2023-05-03] MEDS: risperiDONE 1 MG TABLET PO SCH (08:40)
[2023-05-03] MEDS ORDERED: haloperidoL 5 MG TAB PO ONE (10:28)
[2023-05-03] MEDS: haloperidoL 5 MG TAB PO SCH ×3 (10:29→18:18)
--- NOTE | 2023-05-03 11:05 | Psychiatric Progress Note ---
Date of Service May 03, 2023 Impression / Recommendations Impression 52 yo man with schizophrenia with multiple recent psychiatric hospitalizations after each has eloped from his alf. On 304 commitment and accepted to [facility]. No current bed date. MNPR due to psychosis and limited ability to tolerate peers and hx of aggression with delusions 05/02/2023: increased hallucinations last night and into today. Medication trials so far offering some benefit but not full resolution of symptoms and hallucinations continue to vary from day to day often not associated with particular medication adjustments or thus far identifiable stressors/precipitants. Given that he will be due for next haldol injection in two days now is a reasonable time to consider an alternative medication trial and given his history of stability on Invega and his request for risperidone tr ial this seems reasonable at this time. Will discontinue haldol and start risperidone. Patient would like to start and consented to risperidone for schizophrenia. Reviewed side effects including but not limited to: movement (TD, NMS), cardiac (QTc prolongation), and metabolic (stroke, insulin resistance) and necessity for fasting lipid and glucose labwork (done during this admission) and AIMS done with score of 0. Awaiting [facility] placement Overall, I spent a total of 25 minutes with this case including review of chart records, direct evaluation of the patient at bedside, counseling the patient, discussion during interdisciplinary treatment rounds, ordering medication, risk assessment, and documentation in the electronic health record. 05/03/2023: Per the patient's report, patient's auditory hallucinations continue to vary from day-to-day. Within the context of the fact that the patient will be due for his next haloperidol decanoate injection tomorrow, he was tried last night on a dose of risperidone. Although a particularly clear link between medication and the degree of hallucinosis has been difficult to establish, the patient's assertion today is that "risperidone through [him] for a loop" last night, and because of this he was not able to sleep. He also reported that the hallucinations worsened. There is no evidence of EPS on examination today, no cogwheeling. In retrospect, Mr. Damian tells me that he feels that while haloperidol is not perfect in terms of managing his hallucinations, it does seem to work better for him than any other medication that he has tried. As noted, the patient's assertion today is that he failed to respond to clonazepam, and, again, he said the clonazepam made him "loopy." At the same time, today the patient's thought content seem to be largely reality based. As noted, he does indicate that he suspects that the source of some of his auditory hallucinations may be emanating from his peers on the unit, but he does express some ambivalence about this and acknowledges that it may not actually be the case. It was possible to have a conversation specific to issues that were not directly related to his presenting symptoms of schizophrenia. For example, he tells me how much she likes living at [email or web address]. (1) Schizophrenia: 05/03/23: Because of persistent intermittent hallucinosis, we had offered the patient a trial of risperidone and lieu of oral haloperidol. However, both subjectively and objectively the patient did not do well on this medication. Specifically, the patient experienced what appeared to be increased hallucinosis, complained of increased hallucinations, and also complained that he was unable to sleep --which is consistent with a nurses reports. Today, we started him back on standing dose of oral haloperidol, and expect that tomorrow he will receive his next dose of the decanoate, without dose change. (2) Paranoid: 05/03/23: The patient acknowledges that he sometimes feels that other persons on the unit, particularly peers among the patient population, are the source of the derogatory, persecutory auditory hallucinations that the patient continues to experience. However, he also gives voice to his recognition that he could be mistaken about this, and, chronic, prefers to have limited contact. Nevertheless, the patient did participate in group activities today, and indicated that he is experiencing fewer hallucinations and feeling "better" after restarting oral haloperidol. Plan Given the patient's apparently poor response to risperidone, this medication will not continued. Based upon the patient's history, based upon my observations today, and based upon the patient's subjective report, it does appear that although haloperidol is not fully effective in controlling the patient's persecutory believes and auditory hallucinations, it continues to appear to be the medication that is working the best for this rather unfortunate gentleman. He does appear to have some insight into his need for treatment, and, as above, does seem willing to question whether his belief that some of his auditory hallucinations are emanating from other patients, although he acknowledges that he has suspected that this is the case. Nevertheless, given the intensity of the patient's persistent auditory hallucinations, given their current lack of predictability, and based upon the fact that the patient's physical health is at substantial risk because of his inability to sleep, despite multiple pharmacologic and nonpharmacologic interventions, Mr. Damian remains in need of the full spectrum of psychiatric services available only on an inpatient psychiatric unit. Inventory Assets Strengths: taking PO meds, cooperative with tx plan Needs: longer term hospitalization, medical monitoring Suicide Risk Level Suicide Risk Level: Moderate (q15 min suicide checks) Suicide Risk Level Comments: The patient remains at moderate risk, primarily because of his persistent intermittent persecutory auditory hallucinations. However, he clearly states that he is not experiencing suicidal thoughts, does not have any suicidal intent, and has no plan for suicide. He also convincingly assures us that he will notify staff if thoughts of self-harm emerge. Risk Factors Assessment Significant risk factors include persistent auditory hallucinations, emotional distress, psychotic illness, and history of unintentional self-injurious behaviors. Protective is the fact that the patient is fully cooperative with, and aware of his need for, intensive psychiatric treatment at the inpatient level of care. Male: Yes : Yes Do You Have Access To A Gun?: No Mental Health Diagnoses: Yes Previous Attempt: Yes Previous Psychiatric Hospitalization: Yes Protective Factors Assessment Employed: No Interval History Identifying Information CASEY DAMIAN is a 52-year-old man who lives in a [place] psychiatric alf with a history of schizophrenia, who eloped after returning to his alf and was found by police wandering with concern for dehydration due to hot temperatures/humidity. He is on a 304 commitment as of 03/18/2023. Chief Complaint " That risperidone threw me for a loop last night." Review of Systems Sleep Information Total Hours of Sleep: 2.5 Sleep Comments: PRN Vistaril given per request Meal Information Percent Meal Consumed - Breakfast: 85 Percent Meal Consumed - Lunch: 0 Percent Meal Consumed - Dinner: 50 Nutrition Comment: pt. declined Subjective Subjective Patient was seen & assessed and interval progress reviewed with treatment team. On the patient's request, I saw him in his bedroom, where he had found him with the door shut and the lights off. The patient began today's encounter by explaining that he had been admitted to the hospital because he had "decided to go for a run" in his bare feet, even though he is not accustomed to running or jogging. Within that context, the patient said that he stumbled and fell, and slightly injured his left foot. Mr. Damian notes that he had recently been hospitalized at [facility] in [place], [place],, but his condition worsened early upon his return to his supportive [facility] department at [facility], and he acknowledges that it was for that reason that he had started running in his bare feet. Mr. Damian then explained that his psychiatric hospitalization pursued following his fall. He explains that his main problem remains periodic auditory hallucinations, consistently of the persecutory type. Specifically, he notes that he is continuing to hear multiple voices, both men and women. He also says that he feels that sometimes he can actually see these people out of the corner of his eye, but cannot positively identify them as anyone who he may know. Also, Mr. Damian specifies that typically the voices say very derogatory things about him, personally, and, understandably, he finds this to be very distressing. When I commented on my observation that during our conversation he seemed to be doing quite well, in terms of responding fully and remembering details of his history, he notes that this tends to be his pattern; i.e., if distracted, such as during a psychiatric interview, he tends to do much better in terms of symptom management. I suggested that under that circumstance perhaps he would do better if he were to spend time in the day room with other people. He explained that he was tired from not having slept well last night and, also, he notes that he feels that some of the voices that he has been hearing are coming from other patients, and he would prefer not to encounter them out of the fear of possibly making false accusations. Reviewed his medication history. He notes that he has tried a number of different psychiatric medications over the years, including but not limited to, quetiapine, clozapine, fluphenazine, and haloperidol. Of these medications, he acknowledges that haloperidol does seem to work the best for him in terms of managing his auditory hallucinations and feelings of being persecuted and unsafe. He had received a dose of haloperidol about a half an hour before I saw him today, and he did acknowledge that he was feeling somewhat better, and was hoping to be able to have some sleep. Physical Exam Psychiatric Orientation: alert, oriented x 3, oriented to person, oriented to place, oriented to time and cooperative Apperance: appropriately groomed and + disheveled Eye Contact: good eye contact and + fair eye contact Motor Behavior: no abnormal motor movements Speech: normal rate/rhythm/volume of speech Affect: + anxious affect, + blunted affect and + constricted affect (The patient does smile and chuckle appropriately several times) Mood: + anxious mood; no depressed mood Thought Process: clear/coherent thought process, + looseness of associations and + concrete thought process Thought Content: + paranoid (intermittent), reality based without delusions, + delusions, + thought broadcasting and + persecution Suicidal Thoughts: denies suicidal thoughts, denies suicidal plan and denies suicidal intent Homicidal Thoughts: denies homicidal thoughts Hallucinations: + auditory hallucinations (intermittent) and + visual hallucinations (intermittently seeing people in trenchcoats, falling into a garden) Cognition: recent memory grossly intact, remote memory grossly intact, attention grossly intact and language grossly intact Estimated Intelligence: average estimated intelligence and consistent with education level Insight: + limited insight Judgment: + limited judgement Vital Signs (Past 24 Hours) Last Vital Signs Temp 36.4 C L 05/03/23 06:45 Pulse 88 05/03/23 06:46 Resp 18 05/03/23 06:45 BP 120/83 05/03/23 06:46 Pulse Ox 100 04/23/23 06:00 O2 Del Method Room Air 04/23/23 06:00 Results & Data ([facility]) Current Inpatient Medications Current Inpatient Medications: Current Inpatient Medications Al Hydrox/Mg Hydrox/Simethicone (Aluminum/Magnesium Susp 30 Ml Udc) 30 ml PO Q4H PRN PRN Reason: GI Upset Stop: 05/10/23 01:01 Chlorpromazine HCl (Chlorpromazine Hcl 25 Mg Tab) 50 mg PO [id number] JOSEMANUEL Stop: 05/22/23 06:59 Last Admin: 05/03/23 07:06 Dose: 50 mg Chlorpromazine HCl (Chlorpromazine Hcl 25 Mg Tab) 50 mg PO Q6 PRN PRN Reason: psychosis Stop: 05/31/23 18:21 Last Admin: 05/03/23 08:39 Dose: 50 mg Chlorpromazine HCl (Chlorpromazine Hcl 100 Mg Tab) 300 mg PO DAILY@2030 JOSEMANUEL Stop: 05/26/23 20:29 Last Admin: 05/02/23 20:00 Dose: 300 mg Docusate Sodium (Docusate Sodium 100 Mg Cap) 200 mg PO HS JOSEMANUEL Stop: 05/31/23 21:59 Last Admin: 05/02/23 20:03 Dose: Not Given Haloperidol (Haloperidol 5 Mg Tab) 10 mg PO TID JOSEMANUEL Stop: 06/02/23 13:59 Last Admin: 05/03/23 10:29 Dose: 10 mg Hydroxyzine HCl (Hydroxyzine Hcl 25 Mg Tab) 25 mg PO Q4H PRN PRN Reason: Anxiety Stop: 05/10/23 00:53 Last Admin: 05/03/23 04:50 Dose: 25 mg Hydroxyzine HCl (Hydroxyzine Hcl 25 Mg Tab) 50 mg PO HSZ PRN PRN Reason: Insomnia Stop: 05/10/23 00:55 Last Admin: 05/02/23 23:19 Dose: 50 mg Magnesium Hydroxide (Magnesium Hydroxide Susp 30 Ml Udc) 30 ml PO DAILY PRN PRN Reason: Constipation Stop: 05/10/23 00:58 Venlafaxine HCl (Venlafaxine Hcl Xr 75 Mg Capxr) 75 mg PO QAM JOSEMANUEL Stop: 05/31/23 09:59 Last Admin: 05/03/23 08:39 Dose: 75 mg Mental Health & Subst Abuse Tx Therapist Name of Therapist: Lala
[2023-05-03] MEDS: DOCUSATE SODIUM 100 MG CAP PO SCH (18:18)
[2023-05-04] MEDS: chlorproMAZINE HCL 25 MG TAB PO PRN (01:31)
[2023-05-04] MEDS: chlorproMAZINE HCL 25 MG TAB PO SCH ×2 (07:25→13:52)
[2023-05-04] MEDS: VENLAFAXINE HCL XR 75 MG CAPXR PO SCH (08:24)
[2023-05-04] MEDS: haloperidoL 5 MG TAB PO SCH (08:24)
--- NOTE | 2023-05-04 11:50 | Psychiatric Progress Note ---
Date of Service May 04, 2023 Impression / Recommendations Impression 52 yo man with schizophrenia with multiple recent psychiatric hospitalizations after each has eloped from his half-way. On 304 commitment and accepted to [facility]. No current bed date. [facility] due to psychosis and limited ability to tolerate peers and hx of aggression with delusions 05/04/23. Although Mr. Damian reports today that, in retrospect, he believes that the addition of risperidone several days ago was partially helpful and that it seemed to have improved his "clarity of thought" (his words) he also said that it greatly intensified the auditory hallucinations, or apparently so. This, in turn, had resulted in him sleeping very poorly Wednesday night, and risperidone was discontinued on Wednesday in favor of restarting (1) Schizophrenia: 05/03/23: Because of persistent intermittent hallucinosis, we had offered the patient a trial of risperidone and lieu of oral haloperidol. However, both subjectively and objectively the patient did not do well on this medication. Specifically, the patient experienced what appeared to be increased hallucinosis, complained of increased hallucinations, and also complained that he was unable to sleep --which is consistent with a nurses reports. Yesterday, we started him back on standing dose of oral haloperidol, and expect that tomorrow he will receive his next dose of the decanoate, without dose change. Mr. Damian slept over 8 hours last night, and reports that he is feeling "much better" today. All particular note today is the distinction the patient makes between "hearing voices" and "hallucinating." He describes "hearing voices" is being experienced by him as sort of a low level conversation or "stream of consciousness," that he does not find particularly distressing. However, "hallucinations" for him means that he is being shouted at, called derogatory names, and being falsely accused of verbal acts. We talked about treatment options going forward today, and the patient said that he would be willing to try other psychiatric medications, even though some of the more recent trials of new medications have not appear to be successful. We first discussed Loxitane as a treatment option, which would be given in combination with Haldol decanoate. Both the patient and the treatment team agree that haloperidol, while certainly not the perfect medication in his case, seems to be more beneficial than other antipsychotic medications that have been tried. Accordingly, we plan to keep him on Haldol Decanoate, but, after discussing various options, the patient and I agreed to a trial of perphenazine as a "stat" oral dose today, with the understanding that I would meet with him again later today and determine whether to continue perphenazine (had a higher dose standing medication) or discontinue perphenazine and resume oral haloperidol to supplement the Haldol Decanoate. It is not recommended that we go much higher than 400 mg a day with the Haldol decanoate, and, [place], supplementation with oral haloperidol, or, possibly a different antipsychotic medication, is required to achieve improved control of the psychotic features. (2) Paranoid: 05/04/2023: Mr. Damian clarifies today that he did not mean that he thought the auditory hallucinations that he experiences are coming from the other patients. Instead, explained that sometimes the hallucinations have reference to the other patients, and he says that he wants to be careful not to share some of what his voices are saying with the other patients because he realizes that this could be distressing to them. This clarification speaks to one of the patient's great strengths, and that is that he tends to be a caring, compassionate and kind person who tends to be other oriented. Today, the patient is actively participating in groups, and is spending time with his peers in the day room. He also shared lunch with a peer. Plan today is to administer Haldol Decanoate 400 mg IM (200 mg in each buttock) or, if not available in the full amount, 200 mg IM today and 200 mg IM tomorrow. Also, as above, we are planning a trial of perphenazine today to determine tolerability and to make certain that it does not result in increased hallucinosis. Material risk and anticipated benefits of perphenazine were reviewed with the patient and he indicated understanding and agreement. Plan Given the patient's apparently poor response to risperidone, this medication will not continued. Based upon the patient's history, based upon my observations today, and based upon the patient's subjective report, it does appear that although haloperidol is not fully effective in controlling the patient's persecutory believes and auditory hallucinations, it continues to appear to be the medication that is working the best for this rather unfortunate gentleman. He does appear to have some insight into his need for treatment, and, as above, does seem willing to question whether his belief that some of his auditory hallucinations are emanating from other patients, although he acknowledges that he has suspected that this is the case. Nevertheless, given the intensity of the patient's persistent auditory hallucinations, given their current lack of predictability, and based upon the fact that the patient's physical health is at substantial risk because of his inability to sleep, despite multiple pharmacologic and nonpharmacologic interventions, Mr. Damian remains in need of the full spectrum of psychiatric services available only on an inpatient psychiatric unit. Inventory Assets Strengths: taking PO meds, cooperative with tx plan Needs: longer term hospitalization, medical monitoring Suicide Risk Level Suicide Risk Level: Moderate (q15 min suicide checks) Suicide Risk Level Comments: The patient remains at moderate risk, primarily because of his persistent intermittent persecutory auditory hallucinations. He again reiterates that he is not experiencing suicidal thoughts, does not have any suicidal intent, and has no plan for suicide. He also convincingly assures us that he will notify staff if thoughts of self-harm emerge. Risk Factors Assessment Male: Yes : Yes Do You Have Access To A Gun?: No Mental Health Diagnoses: Yes Previous Attempt: Yes Previous Psychiatric Hospitalization: Yes Protective Factors Assessment Employed: No Interval History Identifying Information CASEY DAMIAN is a 52-year-old man who lives in a [facility] half-way with a history of schizophrenia, who eloped after returning to his half-way and was found by police wandering with concern for dehydration due to hot temperatures/humidity. He is on a 304 commitment as of 03/18/2023. Chief Complaint "I feel better today." Review of Systems Sleep Information Total Hours of Sleep: 8.25 Sleep Comments: PRN Vistaril given per request Meal Information Percent Meal Consumed - Breakfast: 100 Percent Meal Consumed - Lunch: 100 Percent Meal Consumed - Dinner: 100 Nutrition Comment: pt. declined Subjective Subjective Patient was seen & assessed and interval progress reviewed with the treatment team. I also saw the patient in person, [id number], and the psychiatrist office on [address]. Mr. Damian began today's encounter by telling me that, as he had mentioned earlier, he was feeling much better today. Specifically, he had reference to the fact that he had slept well last night, and the voices, while somewhat present, were of low volume and were not particularly distressing to him. Much of today's encounter involved us getting to know each other. He was curious about how the electronic medical records work, and so I showed him the note that I had written yesterday after we had spoken, and he read it and told me that he was in agreement with what I had said. I asked the patient if he had any understanding or explanation for why he was much better able to sleep last night while the voices were more quiet. He notes that he does think that of all of his medicines Haldol has worked the best, but he also acknowledges that, as previously documented, the hallucinosis waxes and wanes considerably and largely unpredictably. Of note is the fact that he tells me that the dose of risperidone that he took Wednesday night "worked in a way," because he said that he had "better clarity of thought" (his words) but that the "hallucinations" became overwhelming and prevented him from being able to sleep. At one point Mr. Damian made statements such as, "I do not mind the voices so much. Still hallucinations I hate!" I asked the patient to clarify," and he said that, for him, "the voices" were more of a conversational phenomenon, often presenting as a stream of consciousness. On the other hand, what he refers to as "hallucinations" are loud, shouting voices that make derogatory and insulting statements about him, or accused him of doing something horrendous. He notes that there are times when he actually believes that he is committed the horrendous act that the hallucinations are accusing him of, even though he some level realizes that he could possibly have done something such as what he has been accused of because it is entirely ego-dystonic for him. Mr. 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 He said that he was sitting in a bar when he suddenly began hearing accusatory voices. The voices then persisted, and became progressively more of a problem. He explained that he began to believe that the voices were coming from people who were "psychic" and were also content on causing him distress and both emotional and physical harm. 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 Damian said that after the hallucinations intensified while he was studying in [place], he and his girlfriend (later his fiance) moved to [place], near [place], where his family lives. However, the voices only intensified in [place], and, also, he realized that there was nothing much to do. He was able to work in [employer] while in [place], but eventually he and his fiance moved to [place], which was his fiance's home town. Unfortunately, but the patient, himself refers to as his "psychosis" worsened, and eventually his relationship with his girlfriend ended and he told me that it was around this time that he was formally diagnosed with paranoid schizophrenia. Today, we were able to talk more about the patient's past medication history. He told me that he would be willing to try other medications, even though the trial of risperidone had not gone well, and even though a previous trial of clozapine also had not gone well. I mention Loxitane as a possible option, but explained that this medication was not on her formulary would have to be special ordered. I then talked with the patient about perphenazine, and he tells me with authority that he has never tried perphenazine. We discussed material risk as well as anticipated benefits of perphenazine. He indicated understanding and said that he would be quite willing to have a trial of this medication. Mr. Damian and I decided decided that the best thing to do would be to give him a trial dose of perphenazine now, while I am on the unit, and then we can make a decision as to whether to continue it, or restart oral haloperidol 10 mg 3 times daily. Also, he and I discussed the option of continuing Haldol Decanoate at a dose of 400 mg every 4 weeks. He reiterates that he feels that haloperidol, while not perfect, does help considerably and he would like to continue Haldol Decanoate while, at the same time, seeing if perphenazine will assist with the episodic disabling hallucinations. Physical Exam Psychiatric Orientation: alert, oriented x 3, oriented to person, oriented to place, oriented to time and cooperative Apperance: appropriately dressed, appropriately groomed and + disheveled Eye Contact: good eye contact and + fair eye contact Motor Behavior: no abnormal motor movements Speech: normal rate/rhythm/volume of speech Affect: euthymic affect, + anxious affect, + blunted affect and + constricted affect (The patient does smile and chuckle appropriately several times); no depressed affect Mood: + anxious mood; no depressed mood Thought Process: clear/coherent thought process, + looseness of associations and + concrete thought process Thought Content: + paranoid (intermittent), reality based without delusions, + delusions, + thought broadcasting and + persecution Suicidal Thoughts: denies suicidal thoughts, denies suicidal plan and denies suicidal intent Homicidal Thoughts: denies homicidal thoughts Hallucinations: + auditory hallucinations (intermittent) and + visual hallucinations (intermittently seeing people in trenchcoats, falling into a garden) Cognition: recent memory grossly intact, remote memory grossly intact, attention grossly intact and language grossly intact Estimated Intelligence: average estimated intelligence and consistent with education level Insight: + limited insight Judgment: + limited judgement Vital Signs (Past 24 Hours) Last Vital Signs Temp 36.7 C 05/04/23 06:55 Pulse 91 H 05/04/23 06:56 Resp 16 05/04/23 06:55 BP 115/72 05/04/23 06:56 Pulse Ox 100 04/23/23 06:00 O2 Del Method Room Air 04/23/23 06:00 Results & Data ([facility]) Current Inpatient Medications Current Inpatient Medications: Current Inpatient Medications Al Hydrox/Mg Hydrox/Simethicone (Aluminum/Magnesium Susp 30 Ml Udc) 30 ml PO Q 4H PRN PRN Reason: GI Upset Stop: 05/10/23 01:01 Chlorpromazine HCl (Chlorpromazine Hcl 25 Mg Tab) 50 mg PO [id number] [facility] Stop: 05/22/23 06:59 Last Admin: 05/04/23 07:25 Dose: 50 mg Chlorpromazine HCl (Chlorpromazine Hcl 25 Mg Tab) 50 mg PO Q6 PRN PRN Reason: psychosis Stop: 05/31/23 18:21 Last Admin: 05/04/23 01:31 Dose: 50 mg Chlorpromazine HCl (Chlorpromazine Hcl 100 Mg Tab) 300 mg PO DAILY@2030 [facility] Stop: 05/26/23 20:29 Last Admin: 05/03/23 18:18 Dose: 300 mg Docusate Sodium (Docusate Sodium 100 Mg Cap) 200 mg PO HS JOSEMANUEL Stop: 05/31/23 21:59 Last Admin: 05/03/23 18:18 Dose: 200 mg Haloperidol (Haloperidol 5 Mg Tab) 10 mg PO TID JOSEMANUEL Stop: 06/02/23 13:59 Last Admin: 05/04/23 08:24 Dose: 10 mg Hydroxyzine HCl (Hydroxyzine Hcl 25 Mg Tab) 25 mg PO Q4H PRN PRN Reason: Anxiety Stop: 05/10/23 00:53 Last Admin: 05/03/23 04:50 Dose: 25 mg Hydroxyzine HCl (Hydroxyzine Hcl 25 Mg Tab) 50 mg PO HSZ PRN PRN Reason: Insomnia Stop: 05/10/23 00:55 Last Admin: 05/02/23 23:19 Dose: 50 mg Magnesium Hydroxide (Magnesium Hydroxide Susp 30 Ml Udc) 30 ml PO DAILY PRN PRN Reason: Constipation Stop: 05/10/23 00:58 Venlafaxine HCl (Venlafaxine Hcl Xr 75 Mg Capxr) 75 mg PO QAM JOSEMANUEL Stop: 05/31/23 09:59 Last Admin: 05/04/23 08:24 Dose: 75 mg Mental Health & Subst Abuse Tx Therapist Name of Therapist: Lala
[2023-05-04] MEDS ORDERED: PERPHENAZINE 2 MG TAB PO STA (13:40)
[2023-05-04] MEDS ORDERED: HALOPERIDOL DECANOATE INJ 50 MG/ML VIAL IM ONE ×2 (14:00)
[2023-05-04] MEDS: DOCUSATE SODIUM 100 MG CAP PO SCH (20:33)
--- NOTE | 2023-05-04 20:52 | Communication Note ---
Date of Service: May 04, 2023 I met with the patient about 90 minutes after his dose of perphenazine 2 mg. The patient told me that he felt that perphenazine worked "great." He reports no adverse effects, and that it had helped limit the voices. He also said that it added "clarity of thought." The plan is now to increase the dose to perphenazine 8 mg BID
[2023-05-04] MEDS ORDERED: PERPHENAZINE 2 MG TAB PO SCH (21:00)
[2023-05-04] MEDS: PERPHENAZINE 2 MG TAB PO SCH (21:34)
[2023-05-05] MEDS: chlorproMAZINE HCL 25 MG TAB PO SCH ×3 (07:08→20:46)
[2023-05-05] MEDS: VENLAFAXINE HCL XR 75 MG CAPXR PO SCH (08:46)
[2023-05-05] MEDS: PERPHENAZINE 2 MG TAB PO SCH ×2 (08:46→20:48)
[2023-05-05] MEDS ORDERED: HALOPERIDOL DECANOATE INJ 50 MG/ML VIAL IM ONE ×2 (09:00→11:00)
--- NOTE | 2023-05-05 09:22 | Psychiatric Progress Note ---
Date of Service May 05, 2023 Impression / Recommendations Impression 52 yo man with schizophrenia with multiple recent psychiatric hospitalizations after each has eloped from his prison. On [facility] commitment and [facility]. No current bed date. [facility] due to psychosis and limited ability to tolerate peers and hx of aggression with delusions 05/05/23: Significantly improved sleep last night after change in antipsychotic with initiation of Trilafon. He is now currently on three different antipsychotics (haldol decanoate HAYES, Trilafon and Thorazine) due to ongoing symptoms of distressing hallucinations and sleep disturbances that monotherapy and dual antipsychotic therapy could not control. Eventual goal remains to taper to dual or monotherapy but given prolonged trial of high dose haldol via HAYES and ongoing need for po haldol (with increased symptoms during multiple attempts to taper po dose) and ongoing thorazine requirement it was felt that trial of Trilafon was reasonable and Casey agreed with this. He feels the Trilafon is already helping in terms of improved sleep and lessening of hallucinations. He is tolerating haldol decanoate HAYES and based on response to Trilafon over the coming days/weeks then a decision can be made about tapering Thorazine vs discontinuing haldol decanoate in future. [facility] Overall, I spent a total of 25 minutes with this case including review of chart records, direct evaluation of the patient at bedside, counseling the patient, discussion during interdisciplinary treatment rounds, risk assessment, and documentation in the electronic health record. (1) Schizophrenia: (2) Paranoid: Plan 05/05/2023: * Trilafon 8mg BID po --started on 05/04/2023 * Continue thorazine 50mg qAM, 50mg qafternoon and 300mg HS --increased on 2022 * continue venlafaxine ER 75 mg daily - started 03/28/2023 * continue haloperidol decanoate total of 400mg HAYES over two days; 200 mg HAYES - received on 05/04/2023 and 05/05/2023 05/02/2023: * Discontinue haldol po * Start risperidone 1mg BID with 0.5mg BID prn for hallucinations * Continue thorazine 50mg qAM, 50mg qafternoon and 300mg HS --increased on 04/26/2023 * continue venlafaxine ER 75 mg daily - started 03/28/2023 * continue haloperidol decanoate total of 400mg HAYES over two days; 200 mg HAYES - received on 04/03/2023 and additional 200mg HAYES - received on 04/05/2023; likely will hold off on next dose pending risperidone trial 04/28/2023: continue current meds and tx plan, discussed Depakote augmentation if fails to make steady improvement. 04/27/2023: slow rate of Haldol taper--resume 10 mg BID meals and monitor BP on higher dose of thorazine. If symptoms persist, he may be agreeable to trial of clozaril in place of thorazine and/or depakote. Still a week out from Haldol dec . 04/26/2023: titrate hs thorazine, continue Haldol taper (oral, patient received dec) due on or before 05/05/23. 04/25/2023: d/c hs Haldol in favor of increase in thorazine to 200 mg hs. monitor for orthostasis 04/23/2023: * Chlorpromazine 50mg qAM and 50mg qafternoon and 100mg HS - increased 04/21/2023 from 50mg HS to 100mg HS * continue haloperidol decanoate total of 400mg HAYES over two days; 200 mg HAYES - received on 04/03/2023 and additional 200mg HAYES - received on 04/05/2023 * increase haloperidol po back to 10mg TID - reduced to 5 TID on 04/21/2023 with worsening hallucinations, previously reduced to 10mg TID dose on 04/02/2023 when decanoate was started * continue venlafaxine ER 75 mg daily - started 03/28/2023 04/21/2023: * Chlorpromazine 50mg qAM and 50mg qafternoon and 100mg HS - increased 04/21/2023 from 50mg HS to 100mg HS * continue haloperidol decanoate total of 400mg HAYES over two days; 200 mg HAYES - received on 04/03/2023 and additional 200mg HAYES - received on 04/05/2023 * decrease haloperidol po to 5 mg TID - reduced from 10 mg TID, previously reduced to 10mg TID dose on 04/02/2023 when decanoate was started * continue venlafaxine ER 75 mg daily - started 03/28/2023 04/17/2023: * continue chlropromazine 50mg TID - increased 04/13/2023 from 25 mg BID & 50 mg QHS * continue haloperidol decanoate total of 400mg HAYES over two days; 200 mg HAYES - received on 04/03/2023 and additional 200mg HAYES - received on 04/05/2023 * continue haloperidol 10 mg TID - reduced to this dose on 04/02/2023 when decanoate was started * continue venlafaxine ER 75 mg daily - started 03/28/2023 04/16/2023: * continue chlropromazine 50mg TID - increased 04/13/2023 from 25 mg BID & 50 mg QHS * continue haloperidol decanoate 200 mg HAYES - received on 04/03/2023 * continue haloperidol 10 mg TID - reduced to this dose on 04/02/2023 when decanoate was started * continue venlafaxine ER 75 mg daily - started 03/28/2023 04/15/2023: * continue chlropromazine 50mg TID - increased 04/13/2023 from 25 mg BID & 50 mg QHS * continue haloperidol decanoate 200 mg HAYES - received on 04/03/2023 * continue haloperidol 10 mg TID - reduced to this dose on 04/02/2023 when decanoate was started * continue venlafaxine ER 75 mg daily - started 03/28/2023 04/14/2023: * continue chlropromazine 50mg TID - increased 04/13/2023 from 25 mg BID & 50 mg QHS * continue haloperidol decanoate 200 mg HAYES - received on 04/03/2023 * continue haloperidol 10 mg TID - reduced to this dose on 04/02/2023 when decanoate was started * continue venlafaxine ER 75 mg daily - started 03/28/2023 04/13/2023: * continue chlropromazine 25 mg QAM, 25 mg QPM, 50mg QHS - adjusted to this schedule on 04/02/2023 * continue haloperidol decanoate 200 mg HAYES - received on 04/03/2023 * continue haloperidol 10 mg TID - reduced to this dose on 04/02/2023 when decanoate was started * continue venlafaxine ER 75 mg daily - started 03/28/2023 04/12/2023: * continue chlropromazine 25 mg QAM, 25 mg QPM, 50mg QHS - adjusted to this schedule on 04/02/2023 * continue haloperidol decanoate 200 mg HAYES - received on 04/03/2023 * continue haloperidol 10 mg TID - reduced to this dose on 04/02/2023 when decanoate was started * continue venlafaxine ER 75 mg daily - started 03/28/2023 04/11/2023: * continue chlropromazine 25 mg QAM, 25 mg QPM, 50mg QHS - adjusted to this schedule on 04/02/2023 * continue haloperidol decanoate 200 mg HAYES - received on 04/03/2023 * continue haloperidol 10 mg TID - reduced to this dose on 04/02/2023 when decanoate was started * continue venlafaxine ER 75 mg daily - started 03/28/2023 04/10/2023: * continue chlropromazine 25 mg QAM, 25 mg QPM, 50mg QHS - adjusted to this schedule on 04/02/2023 * continue haloperidol decanoate 200 mg HAYES - received on 04/03/2023 * continue haloperidol 10 mg TID - reduced to this dose on 04/02/2023 when decanoate was started * continue venlafaxine ER 75 mg daily - started 03/28/2023 04/05/2023: Additional Haldol decanoate 200mg HAYES, continue po thorazine and po haldol 04/04/2023: Continue current medications and tx plan. Consider additional dose of haldol decanoate 100-200mg HAYES tomorrow. 04/03/2023: * thorazine 25mg qAM, 25mg qdinner, 50mg HS * haldol decanoate 200mg HAYES-- received on 04/03/2023 * haldol po 10mg TID * Effexor ER 75mg daily 04/02/2023: thorazine 25 mg am and pm meal, 50 mg hs with additional 25 mg prn. Patient now agreeable to Haldol dec. Will decrease to 10 mg TID as interval increase of midday dose to 20 mg has not helped with pm breakthrough. Will load 200 mg dose today with additional 100-200 mg loading and PO Haldol taper per Dr. Simth. 04/01/2023: ortho cleared patient, he can discontinue boot at his own comfort, his residual foot deformity does not require surgery 03/28/2023: diversion meeting outcome is all community resources have been exhausted and patient will remain referred to [facility]. repeat foot x ray tomorrow. Patient desires d/c trazodone. completed quality case review with [facility] peer to peer Dr. Jimenez discussing that patient has repeatedly refused clozaril and HAYES and prefers thorazine/haldol component, current doses are best for his BP. Discussed rationale for low dose Effexor XR. Patient has become a gitated/disinhibited on higher doses of antidepressants in past so I would not titrate. 03/25/2023: * Consolidate thorazine to 75mg HS * Continue haldol 10mg qAM, 20mg miday and 10mg HS 03/22/2023: * increase haloperidol to 10 mg qAM, 20mg midday and 10mg HS- started this schedule 03/22/2023 * consolidate chlorpromazine to 25mg qAM and 50mg HS 03/21/2023: * continue haloperidol 10 mg TID - started this schedule 03/03/2023 * consolidate chlorpromazine to 25mg qAM and 50mg HS 03/20/2023: * continue haloperidol 10 mg TID - started this schedule 03/03/2023 * continue chlorpromazine 25 mg TID - resumed 03/17/2023 * change cogentin from HS scheduled to HS prn use for muscle stiffness to reduce polypharmacy 03/18/2023: * continue haloperidol 10 mg TID - started this schedule 03/03/2023 * continue chlorpromazine 25 mg TID - resumed 03/17/2023 * was committed for extended treatment at 304 hearing today, plan to pursue [facility] transfer 03/17/2023: * continue haloperidol 10 mg TID - started this schedule 03/03/2023 * increase chlorpromazine to 25 mg TID * probable 304 hearing on February 03/07/2023: Start trazodone 100mg HS po. Continue haldol 10mg TID po 03/03/2023: unable to resume thorazine, offered to try splitting Haldol to TID to see if any improvement in orthostasis. 03/02/2023: The patient was admitted to the [facility] ([facility] unit) on q15 min checks (behavioral with suicide precautions) for safety. The patient will participate in group, recreational, and milieu therapies and will be offered additional individual and family sessions as clinically appropriate. Continue to hold thorazine and monitor BP. Inventory Assets Strengths: taking PO meds, cooperative with tx plan Needs: longer term hospitalization, medical monitoring Suicide Risk Level Suicide Risk Level: Moderate (q15 min suicide checks) Suicide Risk Level Comments: The patient remains at moderate risk, primarily because of his persistent intermittent persecutory auditory hallucinations. He again reiterates that he is not experiencing suicidal thoughts, does not have any suicidal intent, and has no plan for suicide. He denies any command AH. He also convincingly assures us that he will notify staff if thoughts of self-harm emerge and has been consistently seeking out staff support when he feels overwhelmed by hallucinations. Risk Factors Assessment Male: Yes : Yes Do You Have Access To A Gun?: No Mental Health Diagnoses: Yes Previous Attempt: Yes Previous Psychiatric Hospitalization: Yes Protective Factors Assessment Employed: No Interval History Identifying Information CASEY DAMIAN is a 52-year-old man who lives in a [place] psychiatric prison with a history of schizophrenia, who eloped after returning to his prison and was found by police wandering with concern for dehydration due to hot temperatures/humidity. He is on a 304 commitment as of 03/18/2023. Chief Complaint "I slept straight through the night". Review of Systems Sleep Information Total Hours of Sleep: 7.25 Sleep Comments: was not observed awake at all throughout the night Meal Information Percent Meal Consumed - Breakfast: 100 Percent Meal Consumed - Lunch: 100 Percent Meal Consumed - Dinner: 100 Nutrition Comment: pt. declined Subjective Subjective Patient was seen & assessed and interval progress reviewed with treatment team nursing and social work. Slept really well last night. Today reports his mood is "good" and credits the new medication change as being very helpful. hearing only "muffled" voices today and feels the visual hallucinations are "much less". He denies any side effects from the haldol decanoate injections nor from any of his other medications. Physical Exam Psychiatric Orientation: alert, oriented x 3 and cooperative Apperance: appropriately dressed and appropriately groomed Eye Contact: + fair eye contact Motor Behavior: no abnormal motor movements Speech: normal rate/rhythm/volume of speech Affect: + constricted affect Mood: + anxious mood; no depressed mood Thought Process: clear/coherent thought process and + concrete thought process Thought Content: + paranoid (intermittent) and reality based without delusions Suicidal Thoughts: denies suicidal thoughts, denies suicidal plan and denies suicidal intent Homicidal Thoughts: denies homicidal thoughts Hallucinations: + auditory hallucinations (intermittent) and + visual hallucinations (intermittently seeing people in trenchcoats, falling into a garden) Cognition: recent memory grossly intact, remote memory grossly intact, attention grossly intact and language grossly intact Estimated Intelligence: average estimated intelligence and consistent with education level Insight: + limited insight Judgment: + limited judgement Vital Signs (Past 24 Hours) Last Vital Signs Temp 36.9 C 05/05/23 06:43 Pulse 95 H 05/05/23 06:44 Resp 16 05/05/23 06:43 BP 104/70 05/05/23 06:44 Pulse Ox 100 04/23/23 06:00 O2 Del Method Room Air 04/23/23 06:00 Results & Data ([facility]) Current Inpatient Medications Current Inpatient Medications: Current Inpatient Medications Al Hydrox/Mg Hydrox/Simethicone (Aluminum/Magnesium Susp 30 Ml Udc) 30 ml PO Q4H PRN PRN Reason: GI Upset Stop: 05/10/23 01:01 Chlorpromazine HCl (Chlorpromazine Hcl 25 Mg Tab) 50 mg PO [id number] [facility] Stop: 05/22/23 06:59 Last Admin: 05/05/23 07:08 Dose: 50 mg Chlorpromazine HCl (Chlorpromazine Hcl 25 Mg Tab) 50 mg PO Q6 PRN PRN Reason: psychosis Stop: 05/31/23 18:21 Last Admin: 05/04/23 01:31 Dose: 50 mg Chlorpromazine HCl (Chlorpromazine Hcl 100 Mg Tab) 300 mg PO DAILY@2030 [facility] Stop: 05/26/23 20:29 Last Admin: 05/04/23 20:30 Dose: 300 mg Docusate Sodium (Docusate Sodium 100 Mg Cap) 200 mg PO HS JOSEMANUEL Stop: 05/31/23 21:59 Last Admin: 05/04/23 20:33 Dose: Not Given Haloperidol Decanoate (Haloperidol Decanoate Inj 50 Mg/Ml Vial) 200 mg IM ONE ONE Stop: 05/05/23 11:01 Hydroxyzine HCl (Hydroxyzine Hcl 25 Mg Tab) 25 mg PO Q4H PRN PRN Reason: Anxiety Stop: 05/10/23 00:53 Last Admin: 05/03/23 04:50 Dose: 25 mg Hydroxyzine HCl (Hydroxyzine Hcl 25 Mg Tab) 50 mg PO HSZ PRN PRN Reason: Insomnia Stop: 05/10/23 00:55 Last Admin: 05/02/23 23:19 Dose: 50 mg Magnesium Hydroxide (Magnesium Hydroxide Susp 30 Ml Udc) 30 ml PO DAILY PRN PRN Reason: Constipation Stop: 05/10/23 00:58 Perphenazine (Perphenazine 2 Mg Tablet) 8 mg PO BID JOSEMANUEL Stop: 06/03/23 20:59 Last Admin: 05/05/23 08:46 Dose: 8 mg Venlafaxine HCl (Venlafaxine Hcl Xr 75 Mg Capxr) 75 mg PO QAM JOSEMANUEL Stop: 05/31/23 09:59 Last Admin: 05/05/23 08:46 Dose: 75 mg Mental Health & Subst Abuse Tx Therapist Name of Therapist: Lala
[2023-05-05] MEDS: DOCUSATE SODIUM 100 MG CAP PO SCH (20:49)
[2023-05-06] MEDS: hydrOXYzine HCl 25 MG TAB PO PRN (02:42)
--- NOTE | 2023-05-06 08:28 | Psychiatric Progress Note ---
Date of Service May 06, 2023 Impression / Recommendations Impression 52 yo man with schizophrenia with multiple recent psychiatric hospitalizations after each has eloped from his intermediate. On 304 commitment and accepted to [facility]. No current bed date. [facility] due to psychosis and limited ability to tolerate peers and hx of aggression with delusions 05/06/23: Fairly stable mood today, still with some hallucinations but less intense overall today. Tolerating Trilafon and other psychiatric medications without any side effects. [facility] Overall, I spent a total of 25 minutes with this case including review of chart records, direct evaluation of the patient at bedside, counseling the patient, discussion during interdisciplinary treatment rounds, risk assessment, and documentation in the electronic health record. (1) Schizophrenia: (2) Paranoid: Plan 05/06/2023: * Trilafon 8mg BID po --started on 05/04/2023 * Continue thorazine 50mg qAM, 50mg qafternoon and 300mg HS --increased on 04/26/2023 * continue venlafaxine ER 75 mg daily - started 03/28/2023 * continue haloperidol decanoate total of 400mg HAYES over two days; 200 mg HAYES - received on 05/04/2023 and 05/05/2023 05/05/2023: * Trilafon 8mg BID po --started on 05/04/2023 * Continue thorazine 50mg qAM, 50mg qafternoon and 300mg HS --increased on 04/26/2023 * continue venlafaxine ER 75 mg daily - started 03/28/2023 * continue haloperidol decanoate total of 400mg HAYES over two days; 200 mg HAYES - received on 05/04/2023 and 05/05/2023 05/02/2023: * Discontinue haldol po * Start risperidone 1mg BID with 0.5mg BID prn for hallucinations * Continue thorazine 50mg qAM, 50mg qafternoon and 300mg HS --increased on 04/26/2023 * continue venlafaxine ER 75 mg daily - started 03/28/2023 * continue haloperidol decanoate total of 400mg HAYES over two days; 200 mg HAYES - received on 04/03/2023 and additional 200mg HAYES - received on 04/05/2023; likely will hold off on next dose pending risperidone trial 04/28/2023: continue current meds and tx plan, discussed Depakote augmentation if fails to make steady improvement. 04/27/2023: slow rate of Haldol taper--resume 10 mg BID meals and monitor BP on higher dose of thorazine. If symptoms persist, he may be agreeable to trial of clozaril in place of thorazine and/or depakote. Still a week out from Haldol dec. 04/26/2023: titrate hs thorazine, continue Haldol taper (oral, patient received dec) due on or before 05/05/23. 04/25/2023: d/c hs Haldol in favor of increase in thorazine to 200 mg hs. monitor for orthostasis 04/23/2023: * Chlorpromazine 50mg qAM and 50mg qafternoon and 100mg HS - increased 04/21/2023 from 50mg HS to 100mg HS * continue haloperidol decanoate total of 400mg HAYES over two days; 200 mg HAYES - received on 04/03/2023 and additional 200mg HAYES - received on 04/05/2023 * increase haloperidol po back to 10mg TID - reduced to 5 TID on 04/21/2023 with worsening hallucinations, previously reduced to 10mg TID dose on 04/02/2023 when decanoate was started * continue venlafaxine ER 75 mg daily - started 03/28/2023 04/21/2023: * Chlorpromazine 50mg qAM and 50mg qafternoon and 100mg HS - increased 04/21/2023 from 50mg HS to 100mg HS * continue haloperidol decanoate total of 400mg HAYES over two days; 200 mg HAYES - received on 04/03/2023 and additional 200mg HAYES - received on 04/05/2023 * decrease haloperidol po to 5 mg TID - reduced from 10 mg TID, previously r educed to 10mg TID dose on 04/02/2023 when decanoate was started * continue venlafaxine ER 75 mg daily - started 03/28/2023 04/17/2023: * continue chlropromazine 50mg TID - increased 04/13/2023 from 25 mg BID & 50 mg QHS * continue haloperidol decanoate total of 400mg HAYES over two days; 200 mg HAYES - received on 04/03/2023 and additional 200mg HAYES - received on 04/05/2023 * continue haloperidol 10 mg TID - reduced to this dose on 04/02/2023 when decanoate was started * continue venlafaxine ER 75 mg daily - started 03/28/2023 04/16/2023: * continue chlropromazine 50mg TID - increased 04/13/2023 from 25 mg BID & 50 mg QHS * continue haloperidol decanoate 200 mg HAYES - received on 04/03/2023 * continue haloperidol 10 mg TID - reduced to this dose on 04/02/2023 when decanoate was started * continue venlafaxine ER 75 mg daily - started 03/28/2023 04/15/2023: * continue chlropromazine 50mg TID - increased 04/13/2023 from 25 mg BID & 50 mg QHS * continue haloperidol decanoate 200 mg HAYES - received on 04/03/2023 * continue haloperidol 10 mg TID - reduced to this dose on 04/02/2023 when decanoate was started * continue venlafaxine ER 75 mg daily - started 03/28/2023 04/14/2023: * continue chlropromazine 50mg TID - increased 04/13/2023 from 25 mg BID & 50 mg QHS * continue haloperidol decanoate 200 mg HAYES - received on 04/03/2023 * continue haloperidol 10 mg TID - reduced to this dose on 04/02/2023 when decanoate was started * continue venlafaxine ER 75 mg daily - started 03/28/2023 04/13/2023: * continue chlropromazine 25 mg QAM, 25 mg QPM, 50mg QHS - adjusted to this schedule on 04/02/2023 * continue haloperidol decanoate 200 mg HAYES - received on 04/03/2023 * continue haloperidol 10 mg TID - reduced to this dose on 04/02/2023 when decanoate was started * continue venlafaxine ER 75 mg daily - started 03/28/2023 04/12/2023: * continue chlropromazine 25 mg QAM, 25 mg QPM, 50mg QHS - adjusted to this schedule on 04/02/2023 * continue haloperidol decanoate 200 mg HAYES - received on 04/03/2023 * continue haloperidol 10 mg TID - reduced to this dose on 04/02/2023 when decanoate was started * continue venlafaxine ER 75 mg daily - started 03/28/2023 04/11/2023: * continue chlropromazine 25 mg QAM, 25 mg QPM, 50mg QHS - adjusted to this schedule on 04/02/2023 * continue haloperidol decanoate 200 mg HAYES - received on 04/03/2023 * continue haloperidol 10 mg TID - reduced to this dose on 04/02/2023 when decanoate was started * continue venlafaxine ER 75 mg daily - started 03/28/2023 04/10/2023: * continue chlropromazine 25 mg QAM, 25 mg QPM, 50mg QHS - adjusted to this schedule on 04/02/2023 * continue haloperidol decanoate 200 mg HAYES - received on 04/03/2023 * continue haloperidol 10 mg TID - reduced to this dose on 04/02/2023 when decanoate was started * continue venlafaxine ER 75 mg daily - started 03/28/2023 04/05/2023: Additional Haldol decanoate 200mg HAYES, continue po thorazine and po haldol 04/04/2023: Continue current medications and tx plan. Consider additional dose o f haldol decanoate 100-200mg HAYES tomorrow. 04/03/2023: * thorazine 25mg qAM, 25mg qdinner, 50mg HS * haldol decanoate 200mg HAYES-- received on 04/03/2023 * haldol po 10mg TID * Effexor ER 75mg daily 04/02/2023: thorazine 25 mg am and pm meal, 50 mg hs with additional 25 mg prn. Patient now agreeable to Haldol dec. Will decrease to 10 mg TID as interval increase of midday dose to 20 mg has not helped with pm breakthrough. Will load 200 mg dose today with additional 100-200 mg loading and PO Haldol taper per Dr. Smith. 04/01/2023: ortho cleared patient, he can discontinue boot at his own comfort, his residual foot deformity does not require surgery 03/28/2023: diversion meeting outcome is all community resources have been exhausted and patient will remain referred to [facility]. repeat foot x ray tomorrow. Patient desires d/c trazodone. completed quality case review with [facility] peer to peer Dr. Jimenez discussing that patient has repeatedly refused clozaril and HAYES and prefers thorazine/haldol component, current doses are best for his BP. Discussed rationale for low dose Effexor XR. Patient has become agitated/disinhibited on higher doses of antidepressants in past so I would not titrate. 03/25/2023: * Consolidate thorazine to 75mg HS * Continue haldol 10mg qAM, 20mg miday and 10mg HS 03/22/2023: * increase haloperidol to 10 mg qAM, 20mg midday and 10mg HS- started this schedule 03/22/2023 * consolidate chlorpromazine to 25mg qAM and 50mg HS 03/21/2023: * continue haloperidol 10 mg TID - started this schedule 03/03/2023 * consolidate chlorpromazine to 25mg qAM and 50mg HS 03/20/2023: * continue haloperidol 10 mg TID - started this schedule 03/03/2023 * continue chlorpromazine 25 mg TID - resumed 03/17/2023 * change cogentin from HS scheduled to HS prn use for muscle stiffness to reduce polypharmacy 03/18/2023: * continue haloperidol 10 mg TID - started this schedule 03/03/2023 * continue chlorpromazine 25 mg TID - resumed 03/17/2023 * was committed for extended treatment at 304 hearing today, plan to pursue [facility] transfer 03/17/2023: * continue haloperidol 10 mg TID - started this schedule 03/03/2023 * increase chlorpromazine to 25 mg TID * probable 304 hearing on February 03/07/2023: Start trazodone 100mg HS po. Continue haldol 10mg TID po 03/03/2023: unable to resume thorazine, offered to try splitting Haldol to TID to see if any improvement in orthostasis. 03/02/2023: The patient was admitted to the [facility] ([facility] unit) on q15 min checks (behavioral with suicide precautions) for safety. The patient will participate in group, recreational, and milieu therapies and will be offered additional individual and family sessions as clinically appropriate. Continue to hold thorazine and monitor BP. Inventory Assets Strengths: taking PO meds, cooperative with tx plan Needs: longer term hospitalization, medical monitoring Suicide Risk Level Suicide Risk Level: Moderate (q15 min suicide checks) Suicide Risk Level Comments: The patient remains at moderate risk, primarily because of his persistent intermittent persecutory auditory hallucinations. He again reiterates that he is not experiencing suicidal thoughts, does not have any suicidal intent, and has no plan for suicide. He denies any command AH. He also convincingly assures us that he will notify staff if thoughts of self-harm emerge and has been consistently seeking out staff support when he feels overwhelmed by hallucinations. Risk Factors Assessment Male: Yes : Yes Do You Have Access To A Gun?: No Mental Health Diagnoses: Yes Previous Attempt: Yes Previous Psychiatric Hospitalization: Yes Protective Factors Assessment Employed: No Interval History Identifying Information CASEY DAMIAN is a 52-year-old man who lives in a [place] [facility] intermediate with a history of schizophrenia, who eloped after returning to his intermediate and was found by police wandering with concern for dehydration due to hot temperatures/humidity. He is on a 304 commitment as of 03/18/2023. Chief Complaint "I'm ok". Review of Systems Sleep Information Total Hours of Sleep: 5.5 Sleep Comments: Meal Information Percent Meal Consumed - Breakfast: 100 Percent Meal Consumed - Lunch: 100 Percent Meal Consumed - Dinner: 100 Nutrition Comment: pt. declined Subjective Subjective Patient was seen & assessed and interval progress reviewed with treatment team nursing and social work. Awake in the middle of the night used prn Vistaril. Today reports his mood is stable. Has been having episodes of brief visual hallucination but he states this goes away very quickly compared with previously when it was hard to make the images stop. He's pleased with the Trilafon additi on so far, noting he is cautiously optimistic it will continue to work well. Physical Exam Psychiatric Orientation: alert, oriented x 3 and cooperative Apperance: appropriately dressed and appropriately groomed Eye Contact: + fair eye contact Motor Behavior: no abnormal motor movements Speech: normal rate/rhythm/volume of speech Affect: + constricted affect Mood: + anxious mood; no depressed mood Thought Process: clear/coherent thought process and + concrete thought process Thought Content: + paranoid (intermittent) and reality based without delusions Suicidal Thoughts: denies suicidal thoughts, denies suicidal plan and denies suicidal intent Homicidal Thoughts: denies homicidal thoughts Hallucinations: + auditory hallucinations (intermittent) and + visual hallucinations (intermittently seeing people in trenchcoats, falling into a tremaine en) Cognition: recent memory grossly intact, remote memory grossly intact, attention grossly intact and language grossly intact Estimated Intelligence: average estimated intelligence and consistent with education level Insight: + limited insight Judgment: + limited judgement Vital Signs (Past 24 Hours) Last Vital Signs Temp 36.1 C L 05/06/23 06:38 Pulse 78 05/06/23 06:40 Resp 20 05/06/23 06:38 BP 107/72 05/06/23 06:40 Pulse Ox 96 05/06/23 06:38 O2 Del Method Room Air 05/06/23 06:38 Results & Data ([facility]) Current Inpatient Medications Current Inpatient Medications: Current Inpatient Medications Al Hydrox/Mg Hydrox/Simethicone (Aluminum/Magnesium Susp 30 Ml Udc) 30 ml PO Q4H PRN PRN Reason: GI Upset Stop: 05/10/23 01:01 Chlorpromazine HCl (Chlorpromazine Hcl 25 Mg Tab) 50 mg PO [id number] [facility] Stop: 05/22/23 06:59 Last Admin: 05/05/23 20:46 Dose: 50 mg Chlorpromazine HCl (Chlorpromazine Hcl 25 Mg Tab) 50 mg PO Q6 PRN PRN Reason: psychosis Stop: 05/31/23 18:21 Last Admin: 05/04/23 01:31 Dose: 50 mg Chlorpromazine HCl (Chlorpromazine Hcl 100 Mg Tab) 300 mg PO DAILY@2030 JOSEMANUEL Stop: 05/26/23 20:29 Last Admin: 05/05/23 20:51 Dose: 300 mg Docusate Sodium (Docusate Sodium 100 Mg Cap) 200 mg PO HS JOSEMANUEL Stop: 05/31/23 21:59 Last Admin: 05/05/23 20:49 Dose: 200 mg Hydroxyzine HCl (Hydroxyzine Hcl 25 Mg Tab) 25 mg PO Q4H PRN PRN Reason: Anxiety Stop: 05/10/23 00:53 Last Admin: 05/03/23 04:50 Dose: 25 mg Hydroxyzine HCl (Hydroxyzine Hcl 25 Mg Tab) 50 mg PO HSZ PRN PRN Reason: Insomnia Stop: 05/10/23 00:55 Last Admin: 05/06/23 02:42 Dose: 50 mg Magnesium Hydroxide (Magnesium Hydroxide Susp 30 Ml Udc) 30 ml PO DAILY PRN PRN Reason: Constipation Stop: 05/10/23 00:58 Miscellaneous (Pending Order) 1 each N/A Q30D@0900 JOSEMANUEL Stop: 11/29/23 08:59 Perphenazine (Perphenazine 2 Mg Tablet) 8 mg PO BID JOSEMANUEL Stop: 06/03/23 20:59 Last Admin: 05/05/23 20:48 Dose: 8 mg Venlafaxine HCl (Venlafaxine Hcl Xr 75 Mg Capxr) 75 mg PO QAM JOSEMANUEL Stop: 05/31/23 09:59 Last Admin: 05/05/23 08:46 Dose: 75 mg Mental Health & Subst Abuse Tx Therapist Name of Therapist: Lala
[2023-05-06] MEDS: PERPHENAZINE 2 MG TAB PO SCH ×2 (08:42→20:10)
[2023-05-06] MEDS: VENLAFAXINE HCL XR 75 MG CAPXR PO SCH (08:42)
[2023-05-06] MEDS: chlorproMAZINE HCL 25 MG TAB PO SCH (13:50)
[2023-05-06] MEDS: DOCUSATE SODIUM 100 MG CAP PO SCH (20:12)
[2023-05-07] MEDS: chlorproMAZINE HCL 25 MG TAB PO SCH ×2 (06:37→14:27)
[2023-05-07] MEDS: PERPHENAZINE 2 MG TAB PO SCH ×2 (08:47→20:52)
[2023-05-07] MEDS: VENLAFAXINE HCL XR 75 MG CAPXR PO SCH (08:47)
--- NOTE | 2023-05-07 09:18 | Psychiatric Progress Note ---
Date of Service May 07, 2023 Impression / Recommendations Impression 52 yo man with schizophrenia with multiple recent psychiatric hospitalizations after each has eloped from his shelter. On [facility] commitment [facility]. No current bed date. [facility] due to psychosis and limited ability to tolerate peers and hx of aggression with delusions 05/07/23: Mood remains stable today, ongoing lessening of hallucination intensity since introduction of Trilafon. Tolerating Trilafon and other psychiatric medications without any side effects. [facility] Overall, I spent a total of 25 minutes with this case including review of chart records, direct evaluation of the patient at bedside, counseling the patient, discussion during interdisciplinary treatment rounds, risk assessment, and documentation in the electronic health record. (1) Schizophrenia: (2) Paranoid: Plan 05/07/2023: * Trilafon 8mg BID po --started on 05/04/2023 * Continue thorazine 50mg qAM, 50mg qafternoon and 300mg HS --increased on 04/26/2023 * continue venlafaxine ER 75 mg daily - started 03/28/2023 * continue haloperidol decanoate total of 400mg HAYES over two days; 200 mg HAYES - received on 05/04/2023 and 05/05/2023 05/06/2023: * Trilafon 8mg BID po --started on 05/04/2023 * Continue thorazine 50mg qAM, 50mg qafternoon and 300mg HS --increased on 04/26/2023 * continue venlafaxine ER 75 mg daily - started 03/28/2023 * continue haloperidol decanoate total of 400mg HAYES over two days; 200 mg HAYES - received on 05/04/2023 and 05/05/2023 05/05/2023: * Trilafon 8mg BID po --started on 05/04/2023 * Continue thorazine 50mg qAM, 50mg qafternoon and 300mg HS --increased on 04/26/2023 * continue venlafaxine ER 75 mg daily - started 03/28/2023 * continue haloperidol decanoate total of 400mg HAYES over two days; 200 mg HAYES - received on 05/04/2023 and 05/05/2023 05/02/2023: * Discontinue haldol po * Start risperidone 1mg BID with 0.5mg BID prn for hallucinations * Continue thorazine 50mg qAM, 50mg qafternoon and 300mg HS --increased on 04/26/2023 * continue venlafaxine ER 75 mg daily - started 03/28/2023 * continue haloperidol decanoate total of 400mg HAYES over two days; 200 mg HAYES - received on 04/03/2023 and additional 200mg HAYES - received on 04/05/2023; likely will hold off on next dose pending risperidone trial 04/28/2023: continue current meds and tx plan, discussed Depakote augmentation if fails to make steady improvement. 04/27/2023: slow rate of Haldol taper--resume 10 mg BID meals and monitor BP on higher dose of thorazine. If symptoms persist, he may be agreeable to trial of clozaril in place of thorazine and/or depakote. Still a week out from Haldol dec. 04/26/2023: titrate hs thorazine, continue Haldol taper (oral, patient received dec) due on or before 05/05/23. 04/25/2023: d/c hs Haldol in favor of increase in thorazine to 200 mg hs. monitor for orthostasis 04/23/2023: * Chlorpromazine 50mg qAM and 50mg qafternoon and 100mg HS - increased 04/21/2023 from 50mg HS to 100mg HS * continue haloperidol decanoate total of 400mg HAYES over two days; 200 mg HAYES - received on 04/03/2023 and additional 200mg HAYES - received on 04/05/2023 * increase haloperidol po back to 10mg TID - reduced to 5 TID on 04/21/2023 with worsening hallucinations, previously reduced to 10mg TID dose on 04/02/2023 when decanoate was started * continue venlafaxine ER 75 mg daily - started 03/28/2023 04/21/2023: * Chlorpromazine 50mg qAM and 50mg qafternoon and 100mg HS - increased 04/21/2023 from 50mg HS to 100mg HS * continue haloperidol decanoate total of 400mg HAYES over two days; 200 mg HAEYS - received on 04/03/2023 and additional 200mg HAYES - received on 04/05/2023 * decrease haloperidol po to 5 mg TID - reduced from 10 mg TID, previously reduced to 10mg TID dose on 04/02/2023 when decanoate was started * continue venlafaxine ER 75 mg daily - started 03/28/2023 04/17/2023: * continue chlropromazine 50mg TID - increased 04/13/2023 from 25 mg BID & 50 mg QHS * continue haloperidol decanoate total of 400mg HAYES over two days; 200 mg HAYES - received on 04/03/2023 and additional 200mg HAYES - received on 04/05/2023 * continue haloperidol 10 mg TID - reduced to this dose on 04/02/2023 when decanoate was started * continue venlafaxine ER 75 mg daily - started 03/28/2023 04/16/2023: * continue chlropromazine 50mg TID - increased 04/13/2023 from 25 mg BID & 50 mg QHS * continue haloperidol decanoate 200 mg HAYES - received on 04/03/2023 * continue haloperidol 10 mg TID - reduced to this dose on 04/02/2023 when decanoate was started * continue venlafaxine ER 75 mg daily - started 03/28/2023 04/15/2023: * continue chlropromazine 50mg TID - increased 04/13/2023 from 25 mg BID & 50 mg QHS * continue haloperidol decanoate 200 mg HAYES - received on 04/03/2023 * continue haloperidol 10 mg TID - reduced to this dose on 04/02/2023 when decanoate was started * continue venlafaxine ER 75 mg daily - started 03/28/2023 04/14/2023: * continue chlropromazine 50mg TID - increased 04/13/2023 from 25 mg BID & 50 mg QHS * continue haloperidol decanoate 200 mg HAYES - received on 04/03/2023 * continue haloperidol 10 mg TID - reduced to this dose on 04/02/2023 when decanoate was started * continue venlafaxine ER 75 mg daily - started 03/28/2023 04/13/2023: * continue chlropromazine 25 mg QAM, 25 mg QPM, 50mg QHS - adjusted to this schedule on 04/02/2023 * continue haloperidol decanoate 200 mg HAYES - received on 04/03/2023 * continue haloperidol 10 mg TID - reduced to this dose on 04/02/2023 when decanoate was started * continue venlafaxine ER 75 mg daily - started 03/28/2023 04/12/2023: * continue chlropromazine 25 mg QAM, 25 mg QPM, 50mg QHS - adjusted to this schedule on 04/02/2023 * continue haloperidol decanoate 200 mg HAYES - received on 04/03/2023 * continue haloperidol 10 mg TID - reduced to this dose on 04/02/2023 when decanoate was started * continue venlafaxine ER 75 mg daily - started 03/28/2023 04/11/2023: * continue chlropromazine 25 mg QAM, 25 mg QPM, 50mg QHS - adjusted to this schedule on 04/02/2023 * continue haloperidol decanoate 200 mg HAYES - received on 04/03/2023 * continue haloperidol 10 mg TID - reduced to this dose on 04/02/2023 when decanoate was started * continue venlafaxine ER 75 mg daily - started 03/28/2023 04/10/2023: * continue chlropromazine 25 mg QAM, 25 mg QPM, 50mg QHS - adjusted to this schedule on 04/02/2023 * continue haloperidol decanoate 200 mg HAYES - received on 04/03/2023 * continue haloperidol 10 mg TID - reduced to this dose on 04/02/2023 when decanoate was started * continue venlafaxine ER 75 mg daily - started 03/28/2023 04/05/2023: Additional Haldol decanoate 200mg HAYES, continue po thorazine and po haldol 04/04/2023: Continue current medications and tx plan. Consider additional dose of haldol decanoate 100-200mg HAYES tomorrow. 04/03/2023: * thorazine 25mg qAM, 25mg qdinner, 50mg HS * haldol decanoate 200mg HAYES-- received on 04/03/2023 * haldol po 10mg TID * Effexor ER 75mg daily 04/02/2023: thorazine 25 mg am and pm meal, 50 mg hs with additional 25 mg prn. Patient now agreeable to Haldol dec. Will decrease to 10 mg TID as interval increase of midday dose to 20 mg has not helped with pm breakthrough. Will load 200 mg dose today with additional 100-200 mg loading and PO Haldol taper per Dr. Smith. 04/01/2023: ortho cleared patient, he can discontinue boot at his own comfort, his residual foot deformity does not require surgery 03/28/2023: diversion meeting outcome is all community resources have been exhausted and patient will remain referred to [facility]. repeat foot x ray tomorrow. Patient desires d/c trazodone. completed quality case review with [facility] peer to peer Dr. Jimenez discussing that patient has repeatedly refused clozaril and HAYES and prefers thorazine/haldol component, current doses are best for his BP. Discussed rationale for low dose Effexor XR. Patient has become agitated/disinhibited on higher doses of antidepressants in past so I would not titrate. 03/25/2023: * Consolidate thorazine to 75mg HS * Continue haldol 10mg qAM, 20mg miday and 10mg HS 03/22/2023: * increase haloperidol to 10 mg qAM, 20mg midday and 10mg HS- started this schedule 03/22/2023 * consolidate chlorpromazine to 25mg qAM and 50mg HS 03/21/2023: * continue haloperidol 10 mg TID - started this schedule 03/03/2023 * consolidate chlorpromazine to 25mg qAM and 50mg HS 03/20/2023: * continue haloperidol 10 mg TID - started this schedule 03/03/2023 * continue chlorpromazine 25 mg TID - resumed 03/17/2023 * change cogentin from HS scheduled to HS prn use for muscle stiffness to reduce polypharmacy 03/18/2023: * continue haloperidol 10 mg TID - started this schedule 03/03/2023 * continue chlorpromazine 25 mg TID - resumed 03/17/2023 * was committed for extended treatment at 304 hearing today, plan to pursue [facility] transfer 03/17/2023: * continue haloperidol 10 mg TID - started this schedule 03/03/2023 * increase chlorpromazine to 25 mg TID * probable 304 hearing on February 03/07/2023: Start trazodone 100mg HS po. Continue haldol 10mg TID po 03/03/2023: unable to resume thorazine, offered to try splitting Haldol to TID to see if any improvement in orthostasis. 03/02/2023: The patient was admitted to the [facility] ([facility] mental health unit) on q15 min checks (behavioral with suicide precautions) for safety. The patient will participate in group, recreational, and milieu therapies and will be offered additional individual and family sessions as clinically appropriate. Continue to hold thorazine and monitor BP. Inventory Assets Strengths: taking PO meds, cooperative with tx plan Needs: longer term hospitalization, medical monitoring Suicide Risk Level Suicide Risk Level: Moderate (q15 min suicide checks) Suicide Risk Level Comments: The patient remains at moderate risk, primarily because of his persistent intermittent persecutory auditory hallucinations. He again reiterates that he is not experiencing suicidal thoughts, does not have any suicidal intent, and has no plan for suicide. He denies any command AH. He also convincingly assures us that he will notify staff if thoughts of self-harm emerge and has been consistently seeking out staff support when he feels overwhelmed by hallucinations. Risk Factors Assessment Male: Yes : Yes Do You Have Access To A Gun?: No Mental Health Diagnoses: Yes Previous Attempt: Yes Previous Psychiatric Hospitalization: Yes Protective Factors Assessment Employed: No Interval History Identifying Information UMBERTO DAMIAN is a 52-year-old man who lives in a [place] psychiatric shelter with a history of schizophrenia, who eloped after returning to his shelter and was found by police wandering with concern for dehydration due to hot temperatures/humidity. He is on a 304 commitment as of 03/18/2023. Chief Complaint "I'm good". Review of Systems Sleep Information Total Hours of Sleep: 6 Meal Information Percent Meal Consumed - Breakfast: 100 Percent Meal Consumed - Lunch: 100 Percent Meal Consumed - Dinner: 100 Nutrition Comment: pt. declined Subjective Subjective Patient was seen & assessed and interval progress reviewed with treatment team nursing and social work. Attending groups. Voices have been less. Today reports good mood after walking outside and states "the hallucinations are much shorter duration now" and that "I can get them out of my head quickly". He's liking the Trilafon addition. Denies any medication side effects. Did not require any prns overnight last night. Physical Exam Psychiatric Orientation: alert, oriented x 3 and cooperative Apperance: appropriately dressed and appropriately groomed Eye Contact: + fair eye contact Motor Behavior: no abnormal motor movements Speech: normal rate/rhythm/volume of speech Affect: + constricted affect (but with a smile) Mood: + anxious mood; no depressed mood Thought Process: clear/coherent thought process and + concrete thought process Thought Content: + paranoid (intermittent) and reality based without delusions Suicidal Thoughts: denies suicidal thoughts, denies suicidal plan and denies suicidal intent Homicidal Thoughts: denies homicidal thoughts Hallucinations: + auditory hallucinations (intermittent) and + visual hallucinations (intermittently seeing people in trenchcoats, falling into a garden) Cognition: recent memory grossly intact, remote memory grossly intact, attention grossly intact and language grossly intact Estimated Intelligence: average estimated intelligence and consistent with education level Insight: + limited insight Judgment: + limited judgement Vital Signs (Past 24 Hours) Last Vital Signs Temp 36.6 C 05/07/23 06:00 Pulse 84 05/07/23 06:36 Resp 18 05/07/23 06:00 BP 102/68 05/07/23 06:36 Pulse Ox 99 05/07/23 06:00 O2 Del Method Room Air 05/07/23 06:00 Results & Data ([facility]) Current Inpatient Medications Current Inpatient Medications: Current Inpatient Medications Al Hydrox/Mg Hydrox/Simethicone (Aluminum/Magnesium Susp 30 Ml Udc) 30 ml PO Q4H PRN PRN Reason: GI Upset Stop: 05/10/23 01:01 Chlorpromazine HCl (Chlorpromazine Hcl 25 Mg Tab) 50 mg PO [id number] JOSEMANUEL Stop: 05/22/23 06:59 Last Admin: 05/07/23 06:37 Dose: 50 mg Chlorpromazine HCl (Chlorpromazine Hcl 25 Mg Tab) 50 mg PO Q6 PRN PRN Reason: psychosis Stop: 05/31/23 18:21 Last Admin: 05/04/23 01:31 Dose: 50 mg Chlorpromazine HCl (Chlorpromazine Hcl 100 Mg Tab) 300 mg PO DAILY@2030 JOSEMANUEL Stop: 05/26/23 20:29 Last Admin: 05/06/23 20:09 Dose: 300 mg Docusate Sodium (Docusate Sodium 100 Mg Cap) 200 mg PO HS JOSEMANUEL Stop: 05/31/23 21:59 Last Admin: 05/06/23 20:12 Dose: 200 mg Hydroxyzine HCl (Hydroxyzine Hcl 25 Mg Tab) 25 mg PO Q4H PRN PRN Reason: Anxiety Stop: 05/10/23 00:53 Last Admin: 05/03/23 04:50 Dose: 25 mg Hydroxyzine HCl (Hydroxyzine Hcl 25 Mg Tab) 50 mg PO HSZ PRN PRN Reason: Insomnia Stop: 05/10/23 00:55 Last Admin: 05/06/23 02:42 Dose: 50 mg Magnesium Hydroxide (Magnesium Hydroxide Susp 30 Ml Udc) 30 ml PO DAILY PRN PRN Reason: Constipation Stop: 05/10/23 00:58 Miscellaneous (Pending Order) 1 each N/A Q30D@0900 JOSEMANUEL Stop: 11/29/23 08:59 Perphenazine (Perphenazine 2 Mg Tablet) 8 mg PO BID JOSEMANUEL Stop: 06/03/23 20:59 Last Admin: 05/07/23 08:47 Dose: 8 mg Venlafaxine HCl (Venlafaxine Hcl Xr 75 Mg Capxr) 75 mg PO QAM JOSEMANUEL Stop: 05/31/23 09:59 Last Admin: 05/07/23 08:47 Dose: 75 mg Mental Health & Subst Abuse Tx Psychiatrist Name of Psychiatrist: Dr. Umberto Aviles Psychiatrist's Psychiatric Appointment Comment: Telehealth Therapist Name of Therapist: Chary Velasquez Therapist's Therapy Appointment Comment: [address] [place] [address] [id number], [place] [address] Post Discharge Appointments Primary Care Physician Name Of Family Doctor/PCP: You Brooks
[2023-05-07] MEDS: DOCUSATE SODIUM 100 MG CAP PO SCH (20:53)
[2023-05-08] MEDS: chlorproMAZINE HCL 25 MG TAB PO SCH ×2 (06:31→13:58)
[2023-05-08] MEDS: PERPHENAZINE 2 MG TAB PO SCH ×2 (08:42→20:01)
[2023-05-08] MEDS: VENLAFAXINE HCL XR 75 MG CAPXR PO SCH (08:43)
--- NOTE | 2023-05-08 11:51 | Psychiatric Progress Note ---
Date of Service May 08, 2023 Impression / Recommendations Impression 52 yo man with schizophrenia with multiple recent psychiatric hospitalizations after each has eloped from his detention. On [facility] commitment [facility]. No current bed date. [facility] due to psychosis and limited ability to tolerate peers and hx of aggression with delusions 05/08/2023: Reports "feeling OK" today, with "just little hallucinations now and then". However, there have been multiple medication changes since I last saw him 3 weeks ago and he's not on perphenazine in addition to chlorpromazine and depot haloperidol. Oral haloperidol has finally been eliminated. He says he's benoit ating this regimen well. He tells me he doesn't think he's taken perphenazine ("Trilafon") before. His current chlorpromazine dose totalling 400 mg/day remains low compared to typical monotherapy doses in the 600 to 800 mg/day range but there's been a sense that it might have caused hypotension (not currently seen) in the past. Since perphenazine is, like chlorpromazine, a phenothiazine (albeit of medium rather than low potency), selecting one would appear prudent. By history as related by pt and reflected in the record, pt has done best when on both haloperidol and chlorpromazine in the past and has failed numerous trial of alternate agents. However, there's also a strong correlation between medication changes and symptoms exacerbation so I'm loath to change the phenothiazines just out of preference to minimize antipsychotics since he's currently doing well. I'll attempt to determine whether he's been documented as having taken perphenazine before. 05/07/23: Mood remains stable today, ongoing lessening of hallucination intensity since introduction of Trilafon. Tolerating Trilafon and other psychiatric medications without any side effects. Awaiting state hospital placement (1) Schizophrenia: (2) Paranoid: Plan 05/08/2023: * continue perphenazine 8 mg BID, though I'm fairly concerned about the use of 2 phenothiazines and 3 total antipsychotics - started on 05/04/2023 * continue chlorpromazine 50 mg QAM, 50 mg midday, and 300 mg QHS - increased 04/26/2023 from 50 mg BID & 100 mg QHS * continue venlafaxine ER 75 mg daily - started 03/28/2023 * continue haloperidol decanoate total of 400mg HAYES over two days; 200 mg HAYES - received on 05/04/2023 and 05/05/2023 05/07/2023: * Trilafon 8mg BID po --started on 05/04/2023 * Continue thorazine 50mg qAM, 50mg qafternoon and 300mg HS --increased on 04/26/2023 * continue venlafaxine ER 75 mg daily - started 03/28/2023 * continue haloperidol decanoate total of 400mg HAYES over two days; 200 mg HAYES - received on 05/04/2023 and 05/05/2023 05/06/2023: * Trilafon 8mg BID po --started on 05/04/2023 * Continue thorazine 50mg qAM, 50mg qafternoon and 300mg HS --increased on 04/26/2023 * continue venlafaxine ER 75 mg daily - started 03/28/2023 * continue haloperidol decanoate total of 400mg HAYES over two days; 200 mg HAYES - received on 05/04/2023 and 05/05/2023 05/05/2023: * Trilafon 8mg BID po --started on 05/04/2023 * Continue thorazine 50mg qAM, 50mg qafternoon and 300mg HS --increased on 04/26/2023 * continue venlafaxine ER 75 mg daily - started 03/28/2023 * continue haloperidol decanoate total of 400mg HAYES over two days; 200 mg HAYES - received on 05/04/2023 and 05/05/2023 05/02/2023: * Discontinue haldol po * Start risperidone 1mg BID with 0.5mg BID prn for hallucinations * Continue thorazine 50mg qAM, 50mg qafternoon and 300mg HS --increased on 04/26/2023 * continue venlafaxine ER 75 mg daily - started 03/28/2023 * continue haloperidol decanoate total of 400mg HAYES over two days; 200 mg HAYES - received on 04/03/2023 and additional 200mg HAYES - received on 04/05/2023; likely will hold off on next dose pending risperidone trial 04/28/2023: continue current meds and tx plan, discussed Depakote augmentation if fails to make steady improvement. 04/27/2023: slow rate of Haldol taper--resume 10 mg BID meals and monitor BP on higher dose of thorazine. If symptoms persist, he may be agreeable to trial of clozaril in place of thorazine and/or depakote. Still a week out from Haldol dec. 04/26/2023: titrate hs thorazine, continue Haldol taper (oral, patient received dec) due on or before 05/05/23. 04/25/2023: d/c hs Haldol in favor of increase in thorazine to 200 mg hs. monitor for orthostasis 04/23/2023: * Chlorpromazine 50mg qAM and 50mg qafternoon and 100mg HS - increased 04/21/2023 from 50mg HS to 100mg HS * continue haloperidol decanoate total of 400mg HAYES over two days; 200 mg HAYES - received on 04/03/2023 and additional 200mg HAYES - received on 04/05/2023 * increase haloperidol po back to 10mg TID - reduced to 5 TID on 04/21/2023 with worsening hallucinations, previously reduced to 10mg TID dose on 04/02/2023 when decanoate was started * continue venlafaxine ER 75 mg daily - started 03/28/2023 04/21/2023: * Chlorpromazine 50mg qAM and 50mg qafternoon and 100mg HS - increased 04/21/2023 from 50mg HS to 100mg HS * continue haloperidol decanoate total of 400mg HAYES over two days; 200 mg HAYES - received on 04/03/2023 and additional 200mg HAYES - received on 04/05/2023 * decrease haloperidol po to 5 mg TID - reduced from 10 mg TID, previously reduced to 10mg TID dose on 04/02/2023 when decanoate was started * continue venlafaxine ER 75 mg daily - started 03/28/2023 04/17/2023: * continue chlropromazine 50mg TID - increased 04/13/2023 from 25 mg BID & 50 mg QHS * continue haloperidol decanoate total of 400mg HAYES over two days; 200 mg HAYES - received on 04/03/2023 and additional 200mg HAYES - received on 04/05/2023 * continue haloperidol 10 mg TID - reduced to this dose on 04/02/2023 when decanoate was started * continue venlafaxine ER 75 mg daily - started 03/28/2023 04/16/2023: * continue chlropromazine 50mg TID - increased 04/13/2023 from 25 mg BID & 50 mg QHS * continue haloperidol decanoate 200 mg HAYES - received on 04/03/2023 * continue haloperidol 10 mg TID - reduced to this dose on 04/02/2023 when decanoate was started * continue venlafaxine ER 75 mg daily - started 03/28/2023 04/15/2023: * continue chlropromazine 50mg TID - increased 04/13/2023 from 25 mg BID & 50 mg QHS * continue haloperidol decanoate 200 mg HAYES - received on 04/03/2023 * continue haloperidol 10 mg TID - reduced to this dose on 04/02/2023 when decanoate was started * continue venlafaxine ER 75 mg daily - started 03/28/2023 04/14/2023: * continue chlropromazine 50mg TID - increased 04/13/2023 from 25 mg BID & 50 mg QHS * continue haloperidol decanoate 200 mg HAYES - received on 04/03/2023 * continue haloperidol 10 mg TID - reduced to this dose on 04/02/2023 when decanoate was started * continue venlafaxine ER 75 mg daily - started 03/28/2023 04/13/2023: * continue chlropromazine 25 mg QAM, 25 mg QPM, 50mg QHS - adjusted to this schedule on 04/02/2023 * continue haloperidol decanoate 200 mg HAYES - received on 04/03/2023 * continue haloperidol 10 mg TID - reduced to this dose on 04/02/2023 when decanoate was started * continue venlafaxine ER 75 mg daily - started 03/28/2023 04/12/2023: * continue chlropromazine 25 mg QAM, 25 mg QPM, 50mg QHS - adjusted to this schedule on 04/02/2023 * continue haloperidol decanoate 200 mg HAYES - received on 04/03/2023 * continue haloperidol 10 mg TID - reduced to this dose on 04/02/2023 when decanoate was started * continue venlafaxine ER 75 mg daily - started 03/28/2023 04/11/2023: * continue chlropromazine 25 mg QAM, 25 mg QPM, 50mg QHS - adjusted to this schedule on 04/02/2023 * continue haloperidol decanoate 200 mg HAYES - received on 04/03/2023 * continue haloperidol 10 mg TID - reduced to this dose on 04/02/2023 when decanoate was started * continue venlafaxine ER 75 mg daily - started 03/28/2023 04/10/2023: * continue chlropromazine 25 mg QAM, 25 mg QPM, 50mg QHS - adjusted to this schedule on 04/02/2023 * continue haloperidol decanoate 200 mg HAYES - received on 04/03/2023 * continue haloperidol 10 mg TID - reduced to this dose on 04/02/2023 when decanoate was started * continue venlafaxine ER 75 mg daily - started 03/28/2023 04/05/2023: Additional Haldol decanoate 200mg HAYES, continue po thorazine and po haldol 04/04/2023: Continue current medications and tx plan. Consider additional dose of haldol decanoate 100-200mg HAYES tomorrow. 04/03/2023: * thorazine 25mg qAM, 25mg qdinner, 50mg HS * haldol decanoate 200mg HAYES-- received on 04/03/2023 * haldol po 10mg TID * Effexor ER 75mg daily 04/02/2023: thorazine 25 mg am and pm meal, 50 mg hs with additional 25 mg prn. Patient now agreeable to Haldol dec. Will decrease to 10 mg TID as interval increase of midday dose to 20 mg has not helped with pm breakthrough. Will load 200 mg dose today with additional 100-200 mg loading and PO Haldol taper per Dr. Smith. 04/01/2023: ortho cleared patient, he can discontinue boot at his own comfort, his residual foot deformity does not require surgery 03/28/2023: diversion meeting outcome is all community resources have been exhausted and patient will remain referred to [facility]. repeat foot x ray tomorrow. Patient desires d/c trazodone. completed quality case review with [facility] peer to peer Dr. Jimenez discussing that patient has repeatedly refused clozaril and HAYES and prefers thorazine/haldol component, current doses are best for his BP. Discussed rationale for low dose Effexor XR. Patient has become agitated/disinhibited on higher doses of antidepressants in past so I would not titrate. 03/25/2023: * Consolidate thorazine to 75mg HS * Continue haldol 10mg qAM, 20mg miday and 10mg HS 03/22/2023: * increase haloperidol to 10 mg qAM, 20mg midday and 10mg HS- started this schedule 03/22/2023 * consolidate chlorpromazine to 25mg qAM and 50mg HS 03/21/2023: * continue haloperidol 10 mg TID - started this schedule 03/03/2023 * consolidate chlorpromazine to 25mg qAM and 50mg HS 03/20/2023: * continue haloperidol 10 mg TID - started this schedule 03/03/2023 * continue chlorpromazine 25 mg TID - resumed 03/17/2023 * change cogentin from HS scheduled to HS prn use for muscle stiffness to reduce polypharmacy 03/18/2023: * continue haloperidol 10 mg TID - started this schedule 03/03/2023 * continue chlorpromazine 25 mg TID - resumed 03/17/2023 * was committed for extended treatment at 304 hearing today, plan to pursue critical access hospital hospital transfer 03/17/2023: * continue haloperidol 10 mg TID - started this schedule 03/03/2023 * increase chlorpromazine to 25 mg TID * probable 304 hearing on February 03/07/2023: Start trazodone 100mg HS po. Continue haldol 10mg TID po 03/03/2023: unable to resume thorazine, offered to try splitting Haldol to TID to see if any improvement in orthostasis. 03/02/2023: The patient was admitted to the [facility] (locked inpatient mental health unit) on q15 min checks (behavioral with suicide precautions) for safety. The patient will participate in group, recreational, and milieu therapies and will be offered additional individual and family sessions as clinically appropriate. Continue to hold thorazine and monitor BP. Inventory Assets Strengths: taking PO meds, cooperative with tx plan Needs: longer term hospitalization, medical monitoring Suicide Risk Level Suicide Risk Level: Moderate (q15 min suicide checks) Suicide Risk Level Comments: The patient remains at moderate risk, primarily because of his persistent intermittent persecutory auditory hallucinations. He again reiterates that he is not experiencing suicidal thoughts, does not have any suicidal intent, and has no plan for suicide. He denies any command AH. He also convincingly assures us that he will notify staff if thoughts of self-harm emerge and has been consistently seeking out staff support when he feels overwhelmed by hallucinations. Risk Factors Assessment Male: Yes : Yes Do You Have Access To A Gun?: No Mental Health Diagnoses: Yes Previous Attempt: Yes Previous Psychiatric Hospitalization: Yes Protective Factors Assessment Employed: No Interval History Identifying Information UMBERTO DAMIAN is a 52-year-old man who lives in a [place] psychiatric detention with a history of schizophrenia, who eloped after returning to his detention and was found by police wandering with concern for dehydration due to hot temperatures/humidity. He is on a 304 commitment as of 03/18/2023. Chief Complaint "[]". Review of Systems Sleep Information Total Hours of Sleep: 7 Meal Information Percent Meal Consumed - Breakfast: 100 Percent Meal Consumed - Lunch: 100 Percent Meal Consumed - Dinner: 75 Nutrition Comment: pt. declined Subjective Subjective The patient was seen and assessed and interval progress reviewed in a multidisciplinary team meeting with the treatment team. For details, see the "Impression" section. Overall I spent a total of 26 minutes for this inpatient follow-up including rev iew of chart records, review of test results, direct evaluation of the patient [id number], reconciling and ordering medication, medication education with the patient, risk assessment, discussion during interdisciplinary treatment rounds, and documentation in the electronic health record. Physical Exam Psychiatric Orientation: alert, oriented x 3, oriented to person, oriented to place, oriented to time and cooperative Apperance: appropriately dressed, appropriately groomed and + disheveled Eye Contact: good eye contact and + fair eye contact Motor Behavior: no abnormal motor movements Speech: normal rate/rhythm/volume of speech Affect: euthymic affect, + anxious affect, + blunted affect and + constricted affect (but with a smile); no depressed affect Mood: + anxious mood; no depressed mood Thought Process: clear/coherent thought process, + looseness of associations and + concrete thought process Thought Content: + paranoid (intermittent), reality based without delusions, + delusions, + thought broadcasting and + persecution Suicidal Thoughts: denies suicidal thoughts, denies suicidal plan and denies suicidal intent Homicidal Thoughts: denies homicidal thoughts Hallucinations: + auditory hallucinations (intermittent) and + visual hallucinations (intermittently seeing people in trenchcoats, falling into a garden) Cognition: recent memory grossly intact, remote memory grossly intact, attention grossly intact and language grossly intact Estimated Intelligence: average estimated intelligence and consistent with education level Insight: + limited insight Judgment: + limited judgement Vital Signs (Past 24 Hours) Last Vital Signs Temp 36.5 C 05/08/23 06:45 Pulse 93 H 05/08/23 06:46 Resp 16 05/08/23 06:45 BP 107/74 05/08/23 06:46 Pulse Ox 99 05/07/23 06:00 O2 Del Method Room Air 05/07/23 06:00 Results & Data ([facility]) Current Inpatient Medications Current Inpatient Medications: Current Inpatient Medications Al Hydrox/Mg Hydrox/Simethicone (Aluminum/Magnesium Susp 30 Ml Udc) 30 ml PO Q4H PRN PRN Reason: GI Upset Stop: 05/10/23 01:01 Chlorpromazine HCl (Chlorpromazine Hcl 25 Mg Tab) 50 mg PO [id number] [facility] Stop: 05/22/23 06:59 Last Admin: 05/08/23 06:31 Dose: 50 mg Chlorpromazine HCl (Chlorpromazine Hcl 25 Mg Tab) 50 mg PO Q6 PRN PRN Reason: psychosis Stop: 05/31/23 18:21 Last Admin: 05/04/23 01:31 Dose: 50 mg Chlorpromazine HCl (Chlorpromazine Hcl 100 Mg Tab) 300 mg PO DAILY@2030 [facility] Stop: 05/26/23 20:29 Last Admin: 05/07/23 20:51 Dose: 300 mg Docusate Sodium (Docusate Sodium 100 Mg Cap) 200 mg PO HS JOSEMANUEL Stop: 05/31/23 21:59 Last Admin: 05/07/23 20:53 Dose: 200 mg Hydroxyzine HCl (Hydroxyzine Hcl 25 Mg Tab) 25 mg PO Q4H PRN PRN Reason: Anxiety Stop: 05/10/23 00:53 Last Admin: 05/03/23 04:50 Dose: 25 mg Hydroxyzine HCl (Hydroxyzine Hcl 25 Mg Tab) 50 mg PO HSZ PRN PRN Reason: Insomnia Stop: 05/10/23 00:55 Last Admin: 05/06/23 02:42 Dose: 50 mg Magnesium Hydroxide (Magnesium Hydroxide Susp 30 Ml Udc) 30 ml PO DAILY PRN PRN Reason: Constipation Stop: 05/10/23 00:58 Miscellaneous (Pending Order) 1 each N/A Q30D@0900 JOSEMANUEL Stop: 11/29/23 08:59 Perphenazine (Perphenazine 2 Mg Tablet) 8 mg PO BID JOSEMANUEL Stop: 06/03/23 20:59 Last Admin: 05/08/23 08:42 Dose: 8 mg Venlafaxine HCl (Venlafaxine Hcl Xr 75 Mg Capxr) 75 mg PO QAM JOSEMANUEL Stop: 05/31/23 09:59 Last Admin: 05/08/23 08:43 Dose: 75 mg Mental Health & Subst Abuse Tx Psychiatrist Name of Psychiatrist: Dr. Umberto Aviles Psychiatrist's Psychiatric Appointment Comment: Telehealth Therapist Name of Therapist: Chary Velasquez Therapist's Therapy Appointment Comment: [address] [place] [address] [id number], [place] [address] Post Discharge Appointments Primary Care Physician Name Of Family Doctor/PCP: You Brooks
[2023-05-08] MEDS: chlorproMAZINE HCL 25 MG TAB PO PRN (17:19)
[2023-05-08] MEDS: DOCUSATE SODIUM 100 MG CAP PO SCH (20:02)
[2023-05-09] MEDS: hydrOXYzine HCl 25 MG TAB PO PRN ×3 (03:20→21:43)
[2023-05-09] MEDS: chlorproMAZINE HCL 25 MG TAB PO SCH ×3 (06:20→14:30)
[2023-05-09] MEDS: VENLAFAXINE HCL XR 75 MG CAPXR PO SCH (09:06)
[2023-05-09] MEDS: PERPHENAZINE 2 MG TAB PO SCH ×2 (09:06→19:47)
[2023-05-09] MEDS: chlorproMAZINE HCL 25 MG TAB PO PRN ×2 (11:38→18:44)
--- NOTE | 2023-05-09 15:36 | Psychiatric Progress Note ---
Date of Service May 09, 2023 Impression / Recommendations Impression 52 yo man with schizophrenia with multiple recent psychiatric hospitalizations after each has eloped from his jail. On 304 commitment and accepted to [facility]. No current bed date. [facility] due to psychosis and limited ability to tolerate peers and hx of aggression with delusions 05/09/2023: Reports "having a bad day" with more prominent, distressing visual hallucinations of "dark" figures experienced as nefarious and threatening. I'm very loath to change antipsychotic regimen right now given history of worsened psychosis with most medication changes. A record review undertaken by RN reveals a fairly strong pattern of 2-3 day periods of worsened psychosis every 2-3 weeks seemingly unrelated to whether antipsychotic regimen is changed or not. I note that venlafaxine dose is unusually low and suspect that anxiety would respond to dose more in the usual therapeutic range of ~225 mg/day. 05/08/2023: Reports "feeling OK" today, with "just little hallucinations now and then". However, there have been multiple medication changes since I last saw him 3 weeks ago and he's not on perphenazine in addition to chlorpromazine and depot haloperidol. Oral haloperidol has finally been eliminated. He says he's tolerating this regimen well. He tells me he doesn't think he's taken perphenazine ("Trilafon") before. His current chlorpromazine dose totalling 400 mg/day remains low compared to typical monotherapy doses in the 600 to 800 mg/day range but there's been a sense that it might have caused hypotension (not currently seen) in the past. Since perphenazine is, like chlorpromazine, a phenothiazine (albeit of medium rather than low potency), selecting one would appear prudent. By history as related by pt and reflected in the record, pt has done best when on both haloperidol and chlorpromazine in the past and has failed numerous trial of alternate agents. However, there's also a strong correlation between medication changes and symptoms exacerbation so I'm loath to change the phenothiazines just out of preference to minimize antipsychotics since he's currently doing well. I'll attempt to determine whether he's been documented as having taken perphenazine before. 05/07/23: Mood remains stable today, ongoing lessening of hallucination intensity since introduction of Trilafon. Tolerating Trilafon and other psychiatric medications without any side effects. Awaiting [facility] placement (1) Schizophrenia: (2) Paranoid: Plan 05/09/2023: * continue perphenazine 8 mg BID for now despite concern about use of 2 phenothiazines and 3 total antipsychotics - started on 05/04/2023 * continue chlorpromazine 50 mg QAM, 50 mg midday, and 300 mg QHS - increased 04/26/2023 from 50 mg BID & 100 mg QHS * increase venlafaxine ER 75 mg daily - started 03/28/2023 * continue haloperidol decanoate total of 400 mg HAYES over two days - received on 05/04/2023 and 05/05/2023 05/08/2023: * continue perphenazine 8 mg BID, though I'm fairly concerned about the use of 2 phenothiazines and 3 total antipsychotics - started on 05/04/2023 * continue chlorpromazine 50 mg QAM, 50 mg midday, and 300 mg QHS - increased 04/26/2023 from 50 mg BID & 100 mg QHS * continue venlafaxine ER 75 mg daily - started 03/28/2023 * continue haloperidol decanoate total of 400mg HAYES over two days; 200 mg HAYES - received on 05/04/2023 and 05/05/2023 05/07/2023: * Trilafon 8mg BID po --started on 05/04/2023 * Continue thorazine 50mg qAM, 50mg qafternoon and 300mg HS --increased on 04/26/2023 * continue venlafaxine ER 75 mg daily - started 03/28/2023 * continue haloperidol decanoate total of 400mg HAYES over two days; 200 mg HAYES - received on 05/04/2023 and 05/05/2023 05/06/2023: * Trilafon 8mg BID po --started on 05/04/2023 * Continue thorazine 50mg qAM, 50mg qafternoon and 300mg HS --increased on 04/26/2023 * continue venlafaxine ER 75 mg daily - started 03/28/2023 * continue haloperidol decanoate total of 400mg HAYES over two days; 200 mg HAYES - received on 05/04/2023 and 05/05/2023 05/05/2023: * Trilafon 8mg BID po --started on 05/04/2023 * Continue thorazine 50mg qAM, 50mg qafternoon and 300mg HS --increased on 04/26/2023 * continue venlafaxine ER 75 mg daily - started 03/28/2023 * continue haloperidol decanoate total of 400mg HAYES over two days; 200 mg HAYES - received on 05/04/2023 and 05/05/2023 05/02/2023: * Discontinue haldol po * Start risperidone 1mg BID with 0.5mg BID prn for hallucinations * Continue thorazine 50mg qAM, 50mg qafternoon and 300mg HS --increased on 04/26/2023 * continue venlafaxine ER 75 mg daily - started 03/28/2023 * continue haloperidol decanoate total of 400mg HAYES over two days; 200 mg HAYES - received on 04/03/2023 and additional 200mg HAYES - received on 04/05/2023; likely will hold off on next dose pending risperidone trial 04/28/2023: continue current meds and tx plan, discussed Depakote augmentation if fails to make steady improvement. 04/27/2023: slow rate of Haldol taper--resume 10 mg BID meals and monitor BP on higher dose of thorazine. If symptoms persist, he may be agreeable to trial of clozaril in place of thorazine and/or depakote. Still a week out from Haldol dec. 04/26/2023: titrate hs thorazine, continue Haldol taper (oral, patient received dec) due on or before 05/05/23. 04/25/2023: d/c hs Haldol in favor of increase in thorazine to 200 mg hs. monitor for orthostasis 04/23/2023: * Chlorpromazine 50mg qAM and 50mg qafternoon and 100mg HS - increased 04/21/2023 from 50mg HS to 100mg HS * continue haloperidol decanoate total of 400mg HAYES over two days; 200 mg HAYES - received on 04/03/2023 and additional 200mg HAYES - received on 04/05/2023 * increase haloperidol po back to 10mg TID - reduced to 5 TID on 04/21/2023 with worsening hallucinations, previously reduced to 10mg TID dose on 04/02/2023 when decanoate was started * continue venlafaxine ER 75 mg daily - started 03/28/2023 04/21/2023: * Chlorpromazine 50mg qAM and 50mg qafternoon and 100mg HS - increased 04/21/2023 from 50mg HS to 100mg HS * continue haloperidol decanoate total of 400mg HAYES over two days; 200 mg HAYES - received on 04/03/2023 and additional 200mg HAYES - received on 04/05/2023 * decrease haloperidol po to 5 mg TID - reduced from 10 mg TID, previously reduced to 10mg TID dose on 04/02/2023 when decanoate was started * continue venlafaxine ER 75 mg daily - started 03/28/2023 04/17/2023: * continue chlropromazine 50mg TID - increased 04/13/2023 from 25 mg BID & 50 mg QHS * continue haloperidol decanoate total of 400mg HAYES over two days; 200 mg HAYES - received on 04/03/2023 and additional 200mg HAYES - received on 04/05/2023 * continue haloperidol 10 mg TID - reduced to this dose on 04/02/2023 when decanoate was started * continue venlafaxine ER 75 mg daily - started 03/28/2023 04/16/2023: * continue chlropromazine 50mg TID - increased 04/13/2023 from 25 mg BID & 50 mg QHS * continue haloperidol decanoate 200 mg HAYES - received on 04/03/2023 * continue haloperidol 10 mg TID - reduced to this dose on 04/02/2023 when decanoate was started * continue venlafaxine ER 75 mg daily - started 03/28/2023 04/15/2023: * continue chlropromazine 50mg TID - increased 04/13/2023 from 25 mg BID & 50 mg QHS * continue haloperidol decanoate 200 mg HAYES - received on 04/03/2023 * continue haloperidol 10 mg TID - reduced to this dose on 04/02/2023 when decanoate was started * continue venlafaxine ER 75 mg daily - started 03/28/2023 04/14/2023: * continue chlropromazine 50mg TID - increased 04/13/2023 from 25 mg BID & 50 mg QHS * continue haloperidol decanoate 200 mg HAYES - received on 04/03/2023 * continue haloperidol 10 mg TID - reduced to this dose on 04/02/2023 when decanoate was started * continue venlafaxine ER 75 mg daily - started 03/28/2023 04/13/2023: * continue chlropromazine 25 mg QAM, 25 mg QPM, 50mg QHS - adjusted to this schedule on 04/02/2023 * continue haloperidol decanoate 200 mg HAYES - received on 04/03/2023 * continue haloperidol 10 mg TID - reduced to this dose on 04/02/2023 when decanoate was started * continue venlafaxine ER 75 mg daily - started 03/28/2023 04/12/2023: * continue chlropromazine 25 mg QAM, 25 mg QPM, 50mg QHS - adjusted to this schedule on 04/02/2023 * continue haloperidol decanoate 200 mg HAYES - received on 04/03/2023 * continue haloperidol 10 mg TID - reduced to this dose on 04/02/2023 when decanoate was started * continue venlafaxine ER 75 mg daily - started 03/28/2023 04/11/2023: * continue chlropromazine 25 mg QAM, 25 mg QPM, 50mg QHS - adjusted to this schedule on 04/02/2023 * continue haloperidol decanoate 200 mg HAYES - received on 04/03/2023 * continue haloperidol 10 mg TID - reduced to this dose on 04/02/2023 when decanoate was started * continue venlafaxine ER 75 mg daily - started 03/28/2023 04/10/2023: * continue chlropromazine 25 mg QAM, 25 mg QPM, 50mg QHS - adjusted to this schedule on 04/02/2023 * continue haloperidol decanoate 200 mg HAYES - received on 04/03/2023 * continue haloperidol 10 mg TID - reduced to this dose on 04/02/2023 when decanoate was started * continue venlafaxine ER 75 mg daily - started 03/28/2023 04/05/2023: Additional Haldol decanoate 200mg HAYES, continue po thorazine and po haldol 04/04/2023: Continue current medications and tx plan. Consider additional dose of haldol decanoate 100-200mg HAYES tomorrow. 04/03/2023: * thorazine 25mg qAM, 25mg qdinner, 50mg HS * haldol decanoate 200mg HAYES-- received on 04/03/2023 * haldol po 10mg TID * Effexor ER 75mg daily 04/02/2023: thorazine 25 mg am and pm meal, 50 mg hs with additional 25 mg prn. Patient now agreeable to Haldol dec. Will decrease to 10 mg TID as interval increase of midday dose to 20 mg has not helped with pm breakthrough. Will load 200 mg dose today with additional 100-200 mg loading and PO Haldol taper per Dr. Smith. 04/01/2023: ortho cleared patient, he can discontinue boot at his own comfort, his residual foot deformity does not require surgery 03/28/2023: diversion meeting outcome is all community resources have been exhausted and patient will remain referred to [facility]. repeat foot x ray tomorrow. Patient desires d/c trazodone. completed quality case review with [facility] peer to peer Dr. Jimenez discussing that patient has repeatedly refused clozaril and HAYES and prefers thorazine/haldol component, current doses are best for his BP. Discussed rationale for low dose Effexor XR. Patient has become agitated/disinhibited on higher doses of antidepressants in past so I would not titrate. 03/25/2023: * Consolidate thorazine to 75mg HS * Continue haldol 10mg qAM, 20mg miday and 10mg HS 03/22/2023: * increase haloperidol to 10 mg qAM, 20mg midday and 10mg HS- started this schedule 03/22/2023 * consolidate chlorpromazine to 25mg qAM and 50mg HS 03/21/2023: * continue haloperidol 10 mg TID - started this schedule 03/03/2023 * consolidate chlorpromazine to 25mg qAM and 50mg HS 03/20/2023: * continue haloperidol 10 mg TID - started this schedule 03/03/2023 * continue chlorpromazine 25 mg TID - resumed 03/17/2023 * change cogentin from HS scheduled to HS prn use for muscle stiffness to reduce polypharmacy 03/18/2023: * continue haloperidol 10 mg TID - started this schedule 03/03/2023 * continue chlorpromazine 25 mg TID - resumed 03/17/2023 * was committed for extended treatment at 304 hearing today, plan to pursue [facility] transfer 03/17/2023: * continue haloperidol 10 mg TID - started this schedule 03/03/2023 * increase chlorpromazine to 25 mg TID * probable 304 hearing on February 03/07/2023: Start trazodone 100mg HS po. Continue haldol 10mg TID po 03/03/2023: unable to resume thorazine, offered to try splitting Haldol to TID to see if any improvement in orthostasis. 03/02/2023: The patient was admitted to the [facility] ([facility] mental health unit) on q15 min checks (behavioral with suicide precautions) for safety. The patient will participate in group, recreational, and milieu therapies and will be offered additional individual and family sessions as clinically appropriate. Continue to hold thorazine and monitor BP. Inventory Assets Strengths: taking PO meds, cooperative with tx plan Needs: longer term hospitalization, medical monitoring Suicide Risk Level Suicide Risk Level: Moderate (q15 min suicide checks) Suicide Risk Level Comments: The patient remains at moderate risk, primarily because of his persistent intermittent persecutory auditory hallucinations. He again reiterates that he is not experiencing suicidal thoughts, does not have any suicidal intent, and has no plan for suicide. He denies any command AH. He also convincingly assures us that he will notify staff if thoughts of self-harm emerge and has been consistently seeking out staff support when he feels overwhelmed by hallucinations. Risk Factors Assessment Male: Yes : Yes Do You Have Access To A Gun?: No Mental Health Diagnoses: Yes Previous Attempt: Yes Previous Psychiatric Hospitalization: Yes Protective Factors Assessment Employed: No Interval History Identifying Information CASEY DAMIAN is a 52-year-old man who lives in a [place] [facility] jail with a history of schizophrenia, who eloped after returning to his jail and was found by police wandering with concern for dehydration due to hot temperatures/humidity. He is on a 304 commitment as of 03/18/2023. Chief Complaint "Having a bad day". Review of Systems Sleep Information Total Hours of Sleep: 7 Meal Information Percent Meal Consumed - Breakfast: 100 Percent Meal Consumed - Lunch: 100 Percent Meal Consumed - Dinner: 100 Nutrition Comment: pt. declined Subjective Subjective The patient was seen and assessed and interval progress reviewed in a multidisciplinary team meeting with the treatment team. For details, see the "Impression" section. Overall I spent a total of 41 minutes for this inpatient follow-up including review of chart records, direct evaluation of the patient [id number], counseling the patient, reconciling and ordering medication, medication education with the patient, risk assessment, discussion during interdisciplinary treatment rounds, and documentation in the electronic health record. Physical Exam Psychiatric Orientation: alert, oriented to person, oriented to place, oriented to time and cooperative Apperance: appropriately dressed, appropriately groomed and + disheveled Eye Contact: + fair eye contact Motor Behavior: no abnormal motor movements Speech: normal rate/rhythm/volume of speech Affect: + anxious affect and + blunted affect; no depressed affect and + mood not congruent with affect Mood: + anxious mood; no depressed mood Thought Process: clear/coherent thought process, + looseness of associations and + concrete thought process Thought Content: + paranoid (intermittent), reality based without delusions, + delusions, + thought broadcasting and + persecution Suicidal Thoughts: denies suicidal thoughts, denies suicidal plan and denies suicidal intent Homicidal Thoughts: denies homicidal thoughts Hallucinations: + auditory hallucinations (intermittent) and + visual hallucinations (intermittently seeing people in trenchcoats, falling into a garden) Cognition: recent memory grossly intact, remote memory grossly intact, attention grossly intact and language grossly intact Estimated Intelligence: average estimated intelligence and consistent with education level Insight: + limited insight Judgment: + limited judgement Vital Signs (Past 24 Hours) Last Vital Signs Temp 36.9 C 05/09/23 06:52 Pulse 72 05/09/23 06:52 Resp 16 05/09/23 06:52 BP 91/58 L 05/09/23 06:52 Pulse Ox 99 05/07/23 06:00 O2 Del Method Room Air 05/07/23 06:00 Results & Data ([facility]) Current Inpatient Medications Current Inpatient Medications: Current Inpatient Medications Al Hydrox/Mg Hydrox/Simethicone (Aluminum/Magnesium Susp 30 Ml Udc) 30 ml PO Q4H PRN PRN Reason: GI Upset Stop: 05/10/23 01:01 Chlorpromazine HCl (Chlorpromazine Hcl 25 Mg Tab) 50 mg PO [id number] [facility] Stop: 05/22/23 06:59 Last Admin: 05/09/23 14:30 Dose: 50 mg Chlorpromazine HCl (Chlorpromazine Hcl 25 Mg Tab) 50 mg PO Q6 PRN PRN Reason: psychosis Stop: 05/31/23 18:21 Last Admin: 05/09/23 11:38 Dose: 50 mg Chlorpromazine HCl (Chlorpromazine Hcl 100 Mg Tab) 300 mg PO DAILY@2030 [facility] Stop: 05/26/23 20:29 Last Admin: 05/08/23 20:01 Dose: 300 mg Docusate Sodium (Docusate Sodium 100 Mg Cap) 200 mg PO HS [facility] Stop: 05/31/23 21:59 Last Admin: 05/08/23 20:02 Dose: 200 mg Hydroxyzine HCl (Hydroxyzine Hcl 25 Mg Tab) 25 mg PO Q4H PRN PRN Reason: Anxiety Stop: 05/10/23 00:53 Last Admin: 05/03/23 04:50 Dose: 25 mg Hydroxyzine HCl (Hydroxyzine Hcl 25 Mg Tab) 50 mg PO HSZ PRN PRN Reason: Insomnia Stop: 05/10/23 00:55 Last Admin: 05/09/23 03:20 Dose: 50 mg Magnesium Hydroxide (Magnesium Hydroxide Susp 30 Ml Udc) 30 ml PO DAILY PRN PRN Reason: Constipation Stop: 05/10/23 00:58 Miscellaneous (Pending Order) 1 each N/A Q30D@0900 [facility] Stop: 11/29/23 08:59 Perphenazine (Perphenazine 2 Mg Tablet) 8 mg PO BID [facility] Stop: 06/03/23 20:59 Last Admin: 05/09/23 09:06 Dose: 8 mg Venlafaxine HCl (Venlafaxine Hcl Xr 75 Mg Capxr) 75 mg PO QAM [facility] Stop: 05/31/23 09:59 Last Admin: 05/09/23 09:06 Dose: 75 mg Mental Health & Subst Abuse Tx Psychiatrist Name of Psychiatrist: Dr. Casey Aviles Psychiatrist's Psychiatric Appointment Comment: Telehealth Therapist Name of Therapist: Chary Velasquez Therapist's Therapy Appointment Comment: [address] [place] [id number], [place] [address] Post Discharge Appointments Primary Care Physician Name Of Family Doctor/PCP: You Brooks
[2023-05-09] MEDS: DOCUSATE SODIUM 100 MG CAP PO SCH (19:49)
[2023-05-10] MEDS ORDERED: ALUMINUM/MAGNESIUM SUSP 30 ML UDC PO PRN (05:15)
[2023-05-10] MEDS ORDERED: MAGNESIUM HYDROXIDE SUSP 30 ML UDC PO PRN (05:16)
[2023-05-10] MEDS: chlorproMAZINE HCL 25 MG TAB PO SCH ×2 (08:01→13:38)
[2023-05-10] MEDS: PERPHENAZINE 2 MG TAB PO SCH ×2 (08:02→20:32)
[2023-05-10] MEDS: VENLAFAXINE HCL XR 150 MG CAPXR PO SCH (08:03)
--- NOTE | 2023-05-10 11:29 | Psychiatric Progress Note ---
Date of Service May 10, 2023 Impression / Recommendations Impression 52 yo man with schizophrenia with multiple recent psychiatric hospitalizations after each has eloped from his residential. On [facility]. No current bed date. [facility] due to psychosis and limited ability to tolerate peers and hx of aggression with delusions 05/10/2023: Reports "feeling a lot better today" and reports "the hallucinations are back under control". Discussed that this improved with no change in medication, repeating my opinion that medication changes are best avoided unless necessary but that use of 4 antipsychotics is deprecated. Pt emphasizes that he's very happy with how he's doing right now and really doesn't want to change the regimen. 05/09/2023: Reports "having a bad day" with more prominent, distressing visual hallucinations of "dark" figures experienced as nefarious and threatening. I'm very loath to change antipsychotic regimen right now given history of worsened psychosis with most medication changes. A record review undertaken by RN reveals a fairly strong pattern of 2-3 day periods of worsened psychosis every 2-3 weeks seemingly unrelated to whether antipsychotic regimen is changed or not. I note that venlafaxine dose is unusually low and suspect that anxiety would respond to dose more in the usual therapeutic range of ~225 mg/day. 05/08/2023: Reports "feeling OK" today, with "just little hallucinations now and then". However, there have been multiple medication changes since I last saw him 3 weeks ago and he's not on perphenazine in addition to chlorpromazine and depot haloperidol. Oral haloperidol has finally been eliminated. He says he's tolerating this regimen well. He tells me he doesn't think he's taken perphenazine ("Trilafon") before. His current chlorpromazine dose totalling 400 mg/day remains low compared to typical monotherapy doses in the 600 to 800 mg/day range but there's been a sense that it might have caused hypotension (not currently seen) in the past. Since perphenazine is, like chlorpromazine, a ph enothiazine (albeit of medium rather than low potency), selecting one would appear prudent. By history as related by pt and reflected in the record, pt has done best when on both haloperidol and chlorpromazine in the past and has failed numerous trial of alternate agents. However, there's also a strong correlation between medication changes and symptoms exacerbation so I'm loath to change the phenothiazines just out of preference to minimize antipsychotics since he's currently doing well. I'll attempt to determine whether he's been documented as having taken perphenazine before. 05/07/23: Mood remains stable today, ongoing lessening of hallucination intensity since introduction of Trilafon. Tolerating Trilafon and other psychiatric medications without any side effects. Awaiting on license of [facility] hospital placement (1) Schizophrenia: (2) Paranoid: Plan 05/10/2023: * continue perphenazine 8 mg BID for now despite concern about use of 2 phenothiazines and 3 total antipsychotics - started on 05/04/2023 * continue chlorpromazine 50 mg QAM, 50 mg midday, and 300 mg QHS - increased 04/26/2023 from 50 mg BID & 100 mg QHS * continue venlafaxine ER 150 mg daily - increased 05/09/2023 to 150 mg, started 03/28/2023 at 75 mg * continue haloperidol decanoate total of 400 mg HAYES over two days - received on 05/04/2023 and 05/05/2023 05/09/2023: * continue perphenazine 8 mg BID for now despite concern about use of 2 phenothiazines and 3 total antipsychotics - started on 05/04/2023 * continue chlorpromazine 50 mg QAM, 50 mg midday, and 300 mg QHS - increased 04/26/2023 from 50 mg BID & 100 mg QHS * increase venlafaxine ER 75 mg daily - started 03/28/2023 * continue haloperidol decanoate total of 400 mg HAYES over two days - received on 05/04/2023 and 05/05/2023 05/08/2023: * continue perphenazine 8 mg BID, though I'm fairly concerned about the use of 2 phenothiazines and 3 total antipsychotics - started on 05/04/2023 * continue chlorpromazine 50 mg QAM, 50 mg midday, and 300 mg QHS - increased 04/26/2023 from 50 mg BID & 100 mg QHS * continue venlafaxine ER 75 mg daily - started 03/28/2023 * continue haloperidol decanoate total of 400mg HAYES over two days; 200 mg HAYES - received on 05/04/2023 and 05/05/2023 05/07/2023: * Trilafon 8mg BID po --started on 05/04/2023 * Continue thorazine 50mg qAM, 50mg qafternoon and 300mg HS --increased on 04/26/2023 * continue venlafaxine ER 75 mg daily - started 03/28/2023 * continue haloperidol decanoate total of 400mg HAYES over two days; 200 mg HAYES - received on 05/04/2023 and 05/05/2023 05/06/2023: * Trilafon 8mg BID po --started on 05/04/2023 * Continue thorazine 50mg qAM, 50mg qafternoon and 300mg HS --increased on 04/26/2023 * continue venlafaxine ER 75 mg daily - started 03/28/2023 * continue haloperidol decanoate total of 400mg HAYES over two days; 200 mg HAYES - received on 05/04/2023 and 05/05/2023 05/05/2023: * Trilafon 8mg BID po --started on 05/04/2023 * Continue thorazine 50mg qAM, 50mg qafternoon and 300mg HS --increased on 04/26/2023 * continue venlafaxine ER 75 mg daily - started 03/28/2023 * continue haloperidol decanoate total of 400mg HAYES over two days; 200 mg HAYES - received on 05/04/2023 and 05/05/2023 05/02/2023: * Discontinue haldol po * Start risperidone 1mg BID with 0.5mg BID prn for hallucinations * Continue thorazine 50mg qAM, 50mg qafternoon and 300mg HS --increased on 04/26/2023 * continue venlafaxine ER 75 mg daily - started 03/28/2023 * continue haloperidol decanoate total of 400mg HAYES over two days; 200 mg HAYES - received on 04/03/2023 and additional 200mg HAYES - received on 04/05/2023; likely will hold off on next dose pending risperidone trial 04/28/2023: continue current meds and tx plan, discussed Depakote augmentation if fails to make steady improvement. 04/27/2023: slow rate of Haldol taper--resume 10 mg BID meals and monitor BP on higher dose of thorazine. If symptoms persist, he may be agreeable to trial of clozaril in place of thorazine and/or depakote. Still a week out from Haldol dec. 04/26/2023: titrate hs thorazine, continue Haldol taper (oral, patient received dec) due on or before 05/05/23. 04/25/2023: d/c hs Haldol in favor of increase in thorazine to 200 mg hs. monitor for orthostasis 04/23/2023: * Chlorpromazine 50mg qAM and 50mg qafternoon and 100mg HS - increased 04/21/2023 from 50mg HS to 100mg HS * continue haloperidol decanoate total of 400mg HAYES over two days; 200 mg HAYES - received on 04/03/2023 and additional 200mg HAYES - received on 04/05/2023 * increase haloperidol po back to 10mg TID - reduced to 5 TID on 04/21/2023 with worsening hallucinations, previously reduced to 10mg TID dose on 04/02/2023 when decanoate was started * continue venlafaxine ER 75 mg daily - started 03/28/2023 04/21/2023: * Chlorpromazine 50mg qAM and 50mg qafternoon and 100mg HS - increased 04/21/2023 from 50mg HS to 100mg HS * continue haloperidol decanoate total of 400mg HAYES over two days; 200 mg HAYES - received on 04/03/2023 and additional 200mg HAYES - received on 04/05/2023 * decrease haloperidol po to 5 mg TID - reduced from 10 mg TID, previously reduced to 10mg TID dose on 04/02/2023 when decanoate was started * continue venlafaxine ER 75 mg daily - started 03/28/2023 04/17/2023: * continue chlropromazine 50mg TID - increased 04/13/2023 from 25 mg BID & 50 mg QHS * continue haloperidol decanoate total of 400mg HAYES over two days; 200 mg HAYES - received on 04/03/2023 and additional 200mg HAYES - received on 04/05/2023 * continue haloperidol 10 mg TID - reduced to this dose on 04/02/2023 when decanoate was started * continue venlafaxine ER 75 mg daily - started 03/28/2023 04/16/2023: * continue chlropromazine 50mg TID - increased 04/13/2023 from 25 mg BID & 50 mg QHS * continue haloperidol decanoate 200 mg HAYES - received on 04/03/2023 * continue haloperidol 10 mg TID - reduced to this dose on 04/02/2023 when decanoate was started * continue venlafaxine ER 75 mg daily - started 03/28/2023 04/15/2023: * continue chlropromazine 50mg TID - increased 04/13/2023 from 25 mg BID & 50 mg QHS * continue haloperidol decanoate 200 mg HAYES - received on 04/03/2023 * continue haloperidol 10 mg TID - reduced to this dose on 04/02/2023 when decanoate was started * continue venlafaxine ER 75 mg daily - started 03/28/2023 04/14/2023: * continue chlropromazine 50mg TID - increased 04/13/2023 from 25 mg BID & 50 mg QHS * continue haloperidol decanoate 200 mg HAYES - received on 04/03/2023 * continue haloperidol 10 mg TID - reduced to this dose on 04/02/2023 when decanoate was started * continue venlafaxine ER 75 mg daily - started 03/28/2023 04/13/2023: * continue chlropromazine 25 mg QAM, 25 mg QPM, 50mg QHS - adjusted to this schedule on 04/02/2023 * continue haloperidol decanoate 200 mg HAYES - received on 04/03/2023 * continue haloperidol 10 mg TID - reduced to this dose on 04/02/2023 when decanoate was started * continue venlafaxine ER 75 mg daily - started 03/28/2023 04/12/2023: * continue chlropromazine 25 mg QAM, 25 mg QPM, 50mg QHS - adjusted to this schedule on 04/02/2023 * continue haloperidol decanoate 200 mg HAYES - received on 04/03/2023 * continue haloperidol 10 mg TID - reduced to this dose on 04/02/2023 when decanoate was started * continue venlafaxine ER 75 mg daily - started 03/28/2023 04/11/2023: * continue chlropromazine 25 mg QAM, 25 mg QPM, 50mg QHS - adjusted to this schedule on 04/02/2023 * continue haloperidol decanoate 200 mg HAYES - received on 04/03/2023 * continue haloperidol 10 mg TID - reduced to this dose on 04/02/2023 when decanoate was started * continue venlafaxine ER 75 mg daily - started 03/28/2023 04/10/2023: * continue chlropromazine 25 mg QAM, 25 mg QPM, 50mg QHS - adjusted to this schedule on 04/02/2023 * continue haloperidol decanoate 200 mg HAYES - received on 04/03/2023 * continue haloperidol 10 mg TID - reduced to this dose on 04/02/2023 when decanoate was started * continue venlafaxine ER 75 mg daily - started 03/28/2023 04/05/2023: Additional Haldol decanoate 200mg HAYES, continue po thorazine and po haldol 04/04/2023: Continue current medications and tx plan. Consider additional dose of haldol decanoate 100-200mg HAYES tomorrow. 04/03/2023: * thorazine 25mg qAM, 25mg qdinner, 50mg HS * haldol decanoate 200mg HAYES-- received on 04/03/2023 * haldol po 10mg TID * Effexor ER 75mg daily 04/02/2023: thorazine 25 mg am and pm meal, 50 mg hs with additional 25 mg prn. Patient now agreeable to Haldol dec. Will decrease to 10 mg TID as interval increase of midday dose to 20 mg has not helped with pm breakthrough. Will load 200 mg dose today with additional 100-200 mg loading and PO Haldol taper per Dr. Smith. 04/01/2023: ortho cleared patient, he can discontinue boot at his own comfort, his residual foot deformity does not require surgery 03/28/2023: diversion meeting outcome is all community resources have been exhausted and patient will remain referred to [facility]. repeat foot x ray tomorrow. Patient desires d/c trazodone. completed quality case review with [facility] peer to peer Dr. Jimenez discussing that patient has repeatedly refused clozaril and HAYES and prefers thorazine/haldol component, current doses are best for his BP. Discussed rationale for low dose Effexor XR. Patient has become agitated/disinhibited on higher doses of antidepressants in past so I would not titrate. 03/25/2023: * Consolidate thorazine to 75mg HS * Continue haldol 10mg qAM, 20mg miday and 10mg HS 03/22/2023: * increase haloperidol to 10 mg qAM, 20mg midday and 10mg HS- started this schedule 03/22/2023 * consolidate chlorpromazine to 25mg qAM and 50mg HS 03/21/2023: * continue haloperidol 10 mg TID - started this schedule 03/03/2023 * consolidate chlorpromazine to 25mg qAM and 50mg HS 03/20/2023: * continue haloperidol 10 mg TID - started this schedule 03/03/2023 * continue chlorpromazine 25 mg TID - resumed 03/17/2023 * change cogentin from HS scheduled to HS prn use for muscle stiffness to reduce polypharmacy 03/18/2023: * continue haloperidol 10 mg TID - started this schedule 03/03/2023 * continue chlorpromazine 25 mg TID - resumed 03/17/2023 * was committed for extended treatment at 304 hearing today, plan to pursue on license of [facility] hospital transfer 03/17/2023: * continue haloperidol 10 mg TID - started this schedule 03/03/2023 * increase chlorpromazine to 25 mg TID * probable 304 hearing on February 03/07/2023: Start trazodone 100mg HS po. Continue haldol 10mg TID po 03/03/2023: unable to resume thorazine, offered to try splitting Haldol to TID to see if any improvement in orthostasis. 03/02/2023: The patient was admitted to the [facility] ([facility] mental [facility] unit) on q15 min checks (behavioral with suicide precautions) for safety. The patient will participate in group, recreational, and milieu therapies and will be offered additional individual and family sessions as clinically appropriate. Continue to hold thorazine and monitor BP. Inventory Assets Strengths: taking PO meds, cooperative with tx plan Needs: longer term hospitalization, medical monitoring Suicide Risk Level Suicide Risk Level: Moderate (q15 min suicide checks) Suicide Risk Level Comments: The patient remains at moderate risk, primarily because of his persistent intermittent persecutory auditory hallucinations. He again reiterates that he is not experiencing suicidal thoughts, does not have any suicidal intent, and has no plan for suicide. He denies any command AH. He also convincingly assures us that he will notify staff if thoughts of self-harm emerge and has been consistently seeking out staff support when he feels overwhelmed by hallucinations. Risk Factors Assessment Male: Yes : Yes Do You Have Access To A Gun?: No Mental Health Diagnoses: Yes Previous Attempt: Yes Previous Psychiatric Hospitalization: Yes Protective Factors Assessment Employed: No Interval History Identifying Information UMBERTO DAMIAN is a 52-year-old man who lives in a [place] [facility] residential with a history of schizophrenia, who eloped after returning to his residential and was found by police wandering with concern for dehydration due to hot temperatures/humidity. He is on a 304 commitment as of 03/18/2023. Chief Complaint "lots better today". Review of Systems Sleep Information Total Hours of Sleep: 4.5 Sleep Comments: Up for a snack Meal Information Percent Meal Consumed - Breakfast: 100 Percent Meal Consumed - Lunch: 100 Percent Meal Consumed - Dinner: 100 Nutrition Comment: Initially refused but later ate supper Subjective Subjective The patient was seen and assessed and interval progress reviewed in a multidisciplinary team meeting with the treatment team. For details, see the "Impression" section. Overall I spent a total of 26 minutes for this inpatient follow-up including review of chart records, direct evaluation of the patient [id number], counseling the patient, medication education with the patient, risk assessment, discussion during interdisciplinary treatment rounds, and documentation in the electronic health record. Physical Exam Psychiatric Orientation: alert, oriented to person, oriented to place, oriented to time and cooperative Apperance: appropriately dressed, appropriately groomed and + disheveled Eye Contact: good eye contact Motor Behavior: no abnormal motor movements Speech: normal rate/rhythm/volume of speech Affect: euthymic affect and mood congruent with affect; no depressed affect Mood: + anxious mood; no depressed mood Thought Process: clear/coherent thought process and + concrete thought process Thought Content: + paranoid (intermittent), reality based without delusions, + delusions and + persecution Suicidal Thoughts: denies suicidal thoughts, denies suicidal plan and denies suicidal intent Homicidal Thoughts: denies homicidal thoughts Hallucinations: + auditory hallucinations (intermittent) and + visual hallucinations (intermittently seeing people in trenchcoats, falling into a garden) Cognition: recent memory grossly intact, remote memory grossly intact, attention grossly intact and language grossly intact Estimated Intelligence: average estimated intelligence and consistent with education level Insight: + limited insight Judgment: + limited judgement Vital Signs (Past 24 Hours) Last Vital Signs Temp 36.5 C 05/10/23 06:44 Pulse 94 H 05/10/23 06:44 Resp 16 05/10/23 06:44 BP 89/60 L 05/10/23 06:44 Pulse Ox 99 05/07/23 06:00 O2 Del Method Room Air 05/07/23 06:00 Results & Data ([facility]) Current Inpatient Medications Current Inpatient Medications: Current Inpatient Medications Al Hydrox/Mg Hydrox/Simethicone (Aluminum/Magnesium Susp 30 Ml Udc) 30 ml PO Q4H PRN PRN Reason: GI Upset Stop: 06/09/23 05:14 Chlorpromazine HCl (Chlorpromazine Hcl 25 Mg Tab) 50 mg PO [id number] [facility] Stop: 05/22/23 06:59 Last Admin: 05/10/23 08:01 Dose: 50 mg Chlorpromazine HCl (Chlorpromazine Hcl 25 Mg Tab) 50 mg PO Q6 PRN PRN Reason: psychosis Stop: 05/31/23 18:21 Last Admin: 05/09/23 18:44 Dose: 50 mg Chlorpromazine HCl (Chlorpromazine Hcl 100 Mg Tab) 300 mg PO DAILY@2030 JOSEMANUEL Stop: 05/26/23 20:29 Last Admin: 05/09/23 19:48 Dose: 300 mg Docusate Sodium (Docusate Sodium 100 Mg Cap) 200 mg PO HS JOSEMANUEL Stop: 05/31/23 21:59 Last Admin: 05/09/23 19:49 Dose: 200 mg Hydroxyzine HCl (Hydroxyzine Hcl 25 Mg Tab) 25 mg PO Q4H PRN PRN Reason: Anxiety Stop: 06/09/23 05:09 Hydroxyzine HCl (Hydroxyzine Hcl 25 Mg Tab) 50 mg PO HSZ PRN PRN Reason: Insomnia Stop: 06/09/23 05:11 Magnesium Hydroxide (Magnesium Hydroxide Susp 30 Ml Udc) 30 ml PO DAILY PRN PRN Reason: Constipation Stop: 06/09/23 05:15 Miscellaneous (Pending Order) 1 each N/A Q30D@0900 JOSEMANUEL Stop: 11/29/23 08:59 Perphenazine (Perphenazine 2 Mg Tablet) 8 mg PO BID JOSEMANUEL Stop: 06/03/23 20:59 Last Admin: 05/10/23 08:02 Dose: 8 mg Venlafaxine HCl (Venlafaxine Hcl Xr 150 Mg Capxr) 150 mg PO QAM JOSEMANUEL Stop: 06/09/23 08:59 Last Admin: 05/10/23 08:03 Dose: 150 mg Mental Health & Subst Abuse Tx Psychiatrist Name of Psychiatrist: Dr. Umberto Aviles Psychiatrist's Psychiatric Appointment Comment: Telehealth Therapist Name of Therapist: Chary Velasquez Therapist's Therapy Appointment Comment: [address] [place] [address] [id number], [place] [address] Post Discharge Appointments Primary Care Physician Name Of Family Doctor/PCP: You Brooks
[2023-05-10] MEDS: DOCUSATE SODIUM 100 MG CAP PO SCH (20:32)
[2023-05-11] MEDS: chlorproMAZINE HCL 25 MG TAB PO SCH ×2 (07:10→14:14)
[2023-05-11] MEDS: PERPHENAZINE 2 MG TAB PO SCH ×2 (08:35→20:42)
[2023-05-11] MEDS: VENLAFAXINE HCL XR 150 MG CAPXR PO SCH (08:35)
--- NOTE | 2023-05-11 11:57 | Psychiatric Progress Note ---
Date of Service May 11, 2023 Impression / Recommendations Impression 52 yo man with schizophrenia with multiple recent psychiatric hospitalizations after each has eloped from his fci. On 304 commitment and accepted to [facility]. No current bed date. [facility] due to psychosis and limited ability to tolerate peers and hx of aggression with delusions 05/11/2023: Pt reports he's "having another good day" with minimal hallucinations. Accurately anticipates that I'll want to discuss his being on 3 antipsychotics, 2 of them phenothiazines, with a goal of formulating a plan to transition to either chlorpromazine alone or perphenazine alone, but not both. He says he fee ls as if he's doing very well and is fearful of relapse. He and I have already concluded that available evidence strongly supports that, for some reason, he has never done well on monotherapy with anything and has done best when on both haloperidol and chlorpromazine (the only phenothiazine he appears to have taken in the past). 05/10/2023: Reports "feeling a lot better today" and reports "the hallucinations are back under control". Discussed that this improved with no change in medication, repeating my opinion that medication changes are best avoided unless necessary but that use of 4 antipsychotics is deprecated. Pt emphasizes that he's very happy with how he's doing right now and really doesn't want to change the regimen. 05/09/2023: Reports "having a bad day" with more prominent, distressing visual hallucinations of "dark" figures experienced as nefarious and threatening. I'm very loath to change antipsychotic regimen right now given history of worsened psychosis with most medication changes. A record review undertaken by RN reveals a fairly strong pattern of 2-3 day periods of worsened psychosis every 2-3 weeks seemingly unrelated to whether antipsychotic regimen is changed or not. I note that venlafaxine dose is unusually low and suspect that anxiety would respond to dose more in the usual therapeutic range of ~225 mg/day. 05/08/2023: Reports "feeling OK" today, with "just little hallucinations now and then". However, there have been multiple medication changes since I last saw him 3 weeks ago and he's not on perphenazine in addition to chlorpromazine and depot haloperidol. Oral haloperidol has finally been eliminated. He says he's tolerating this regimen well. He tells me he doesn't think he's taken perphenazine ("Trilafon") before. His current chlorpromazine dose totalling 400 mg/day remains low compared to typical monotherapy doses in the 600 to 800 mg/day range but there's been a sense that it might have caused hypotension (not currently seen) in the past. Since perphenazine is, like chlorpromazine, a phenothiazine (albeit of medium rather than low potency), selecting one would appear prudent. By history as related by pt and reflected in the record, pt has done best when on both haloperidol and chlorpromazine in the past and has failed numerous trial of alternate agents. However, there's also a strong correlation between medication changes and symptoms exacerbation so I'm loath to change the phenothiazines just out of preference to minimize antipsychotics since he's currently doing well. I'll attempt to determine whether he's been documented as having taken perphenazine before. 05/07/23: Mood remains stable today, ongoing lessening of hallucination intensity since introduction of Trilafon. Tolerating Trilafon and other psychiatric medications without any side effects. Awaiting [facility] placement (1) Schizophrenia: (2) Paranoid: Plan 05/11/2023: * continue perphenazine 8 mg BID (see notes in Impression re: use of 3 antipsychotics) - started on 05/04/2023 * continue chlorpromazine 50 mg QAM, 50 mg midday, and 300 mg QHS - increased 04/26/2023 from 50 mg BID & 100 mg QHS * continue venlafaxine ER 150 mg daily - increased 05/09/2023 to 150 mg, started 03/28/2023 at 75 mg * continue haloperidol decanoate total of 400 mg HAYES over two days - received on 05/04/2023 and 05/05/2023 05/10/2023: * continue perphenazine 8 mg BID for now despite concern about use of 2 phenothiazines and 3 total antipsychotics - started on 05/04/2023 * continue chlorpromazine 50 mg QAM, 50 mg midday, and 300 mg QHS - increased 04/26/2023 from 50 mg BID & 100 mg QHS * continue venlafaxine ER 150 mg daily - increased 05/09/2023 to 150 mg, started 03/28/2023 at 75 mg * continue haloperidol decanoate total of 400 mg HAYES over two days - received on 05/04/2023 and 05/05/2023 05/09/2023: * continue perphenazine 8 mg BID for now despite concern about use of 2 phenothiazines and 3 total antipsychotics - started on 05/04/2023 * continue chlorpromazine 50 mg QAM, 50 mg midday, and 300 mg QHS - increased 04/26/2023 from 50 mg BID & 100 mg QHS * increase venlafaxine ER 75 mg daily - started 03/28/2023 * continue haloperidol decanoate total of 400 mg HAYES over two days - received on 05/04/2023 and 05/05/2023 05/08/2023: * continue perphenazine 8 mg BID, though I'm fairly concerned about the use of 2 phenothiazines and 3 total antipsychotics - started on 05/04/2023 * continue chlorpromazine 50 mg QAM, 50 mg midday, and 300 mg QHS - increased 04/26/2023 from 50 mg BID & 100 mg QHS * continue venlafaxine ER 75 mg daily - started 03/28/2023 * continue haloperidol decanoate total of 400mg HAYES over two days; 200 mg HAYES - received on 05/04/2023 and 05/05/2023 05/07/2023: * Trilafon 8mg BID po --started on 05/04/2023 * Continue thorazine 50mg qAM, 50mg qafternoon and 300mg HS --increased on 04/26/2023 * continue venlafaxine ER 75 mg daily - started 03/28/2023 * continue haloperidol decanoate total of 400mg HAYES over two days; 200 mg HAYES - received on 05/04/2023 and 05/05/2023 05/06/2023: * Trilafon 8mg BID po --started on 05/04/2023 * Continue thorazine 50mg qAM, 50mg qafternoon and 300mg HS --increased on 04/26/2023 * continue venlafaxine ER 75 mg daily - started 03/28/2023 * continue haloperidol decanoate total of 400mg HAYES over two days; 200 mg HAYES - received on 05/04/2023 and 05/05/2023 05/05/2023: * Trilafon 8mg BID po --started on 05/04/2023 * Continue thorazine 50mg qAM, 50mg qafternoon and 300mg HS --increased on 04/26/2023 * continue venlafaxine ER 75 mg daily - started 03/28/2023 * continue haloperidol decanoate total of 400mg HAYES over two days; 200 mg HAYES - received on 05/04/2023 and 05/05/2023 05/02/2023: * Discontinue haldol po * Start risperidone 1mg BID with 0.5mg BID prn for hallucinations * Continue thorazine 50mg qAM, 50mg qafternoon and 300mg HS --increased on 04/26/2023 * continue venlafaxine ER 75 mg daily - started 03/28/2023 * continue haloperidol decanoate total of 400mg HAYES over two days; 200 mg HAYES - received on 04/03/2023 and additional 200mg HAYES - received on 04/05/2023; likely will hold off on next dose pending risperidone trial 04/28/2023: continue current meds and tx plan, discussed Depakote augmentation if fails to make steady improvement. 04/27/2023: slow rate of Haldol taper--resume 10 mg BID meals and monitor BP on higher dose of thorazine. If symptoms persist, he may be agreeable to trial of clozaril in place of thorazine and/or depakote. Still a week out from Haldol dec. 04/26/2023: titrate hs thorazine, continue Haldol taper (oral, patient received dec) due on or before 05/05/23. 04/25/2023: d/c hs Haldol in favor of increase in thorazine to 200 mg hs. monitor for orthostasis 04/23/2023: * Chlorpromazine 50mg qAM and 50mg qafternoon and 100mg HS - increased 04/21/2023 from 50mg HS to 100mg HS * continue haloperidol decanoate total of 400mg HAYES over two days; 200 mg HAYES - received on 04/03/2023 and additional 200mg HAYES - received on 04/05/2023 * increase haloperidol po back to 10mg TID - reduced to 5 TID on 04/21/2023 with worsening hallucinations, previously reduced to 10mg TID dose on 04/02/2023 when decanoate was started * continue venlafaxine ER 75 mg daily - started 03/28/2023 04/21/2023: * Chlorpromazine 50mg qAM and 50mg qafternoon and 100mg HS - increased 04/21/2023 from 50mg HS to 100mg HS * continue haloperidol decanoate total of 400mg HAYES over two days; 200 mg HAYES - received on 04/03/2023 and additional 200mg HAYES - received on 04/05/2023 * decrease haloperidol po to 5 mg TID - reduced from 10 mg TID, previously reduced to 10mg TID dose on 04/02/2023 when decanoate was started * continue venlafaxine ER 75 mg daily - started 03/28/2023 04/17/2023: * continue chlropromazine 50mg TID - increased 04/13/2023 from 25 mg BID & 50 mg QHS * continue haloperidol decanoate total of 400mg HAYES over two days; 200 mg HAYES - received on 04/03/2023 and additional 200mg HAYES - received on 04/05/2023 * continue haloperidol 10 mg TID - reduced to this dose on 04/02/2023 when decanoate was started * continue venlafaxine ER 75 mg daily - started 03/28/2023 04/16/2023: * continue chlropromazine 50mg TID - increased 04/13/2023 from 25 mg BID & 50 mg QHS * continue haloperidol decanoate 200 mg HAYES - received on 04/03/2023 * continue haloperidol 10 mg TID - reduced to this dose on 04/02/2023 when decanoate was started * continue venlafaxine ER 75 mg daily - started 03/28/2023 04/15/2023: * continue chlropromazine 50mg TID - increased 04/13/2023 from 25 mg BID & 50 mg QHS * continue haloperidol decanoate 200 mg HAYES - received on 04/03/2023 * continue haloperidol 10 mg TID - reduced to this dose on 04/02/2023 when decanoate was started * continue venlafaxine ER 75 mg daily - started 03/28/2023 04/14/2023: * continue chlropromazine 50mg TID - increased 04/13/2023 from 25 mg BID & 50 mg QHS * continue haloperidol decanoate 200 mg HAYES - received on 04/03/2023 * continue haloperidol 10 mg TID - reduced to this dose on 04/02/2023 when decanoate was started * continue venlafaxine ER 75 mg daily - started 03/28/2023 04/13/2023: * continue chlropromazine 25 mg QAM, 25 mg QPM, 50mg QHS - adjusted to this s chedule on 04/02/2023 * continue haloperidol decanoate 200 mg HAYES - received on 04/03/2023 * continue haloperidol 10 mg TID - reduced to this dose on 04/02/2023 when decanoate was started * continue venlafaxine ER 75 mg daily - started 03/28/2023 04/12/2023: * continue chlropromazine 25 mg QAM, 25 mg QPM, 50mg QHS - adjusted to this schedule on 04/02/2023 * continue haloperidol decanoate 200 mg HAYES - received on 04/03/2023 * continue haloperidol 10 mg TID - reduced to this dose on 04/02/2023 when decanoate was started * continue venlafaxine ER 75 mg daily - started 03/28/2023 04/11/2023: * continue chlropromazine 25 mg QAM, 25 mg QPM, 50mg QHS - adjusted to this schedule on 04/02/2023 * continue haloperidol decanoate 200 mg HAYES - received on 04/03/2023 * continue haloperidol 10 mg TID - reduced to this dose on 04/02/2023 when decanoate was started * continue venlafaxine ER 75 mg daily - started 03/28/2023 04/10/2023: * continue chlropromazine 25 mg QAM, 25 mg QPM, 50mg QHS - adjusted to this schedule on 04/02/2023 * continue haloperidol decanoate 200 mg HAYES - received on 04/03/2023 * continue haloperidol 10 mg TID - reduced to this dose on 04/02/2023 when decanoate was started * continue venlafaxine ER 75 mg daily - started 03/28/2023 04/05/2023: Additional Haldol decanoate 200mg HAYES, continue po thorazine and po haldol 04/04/2023: Continue current medications and tx plan. Consider additional dose of haldol decanoate 100-200mg HAYES tomorrow. 04/03/2023: * thorazine 25mg qAM, 25mg qdinner, 50mg HS * haldol decanoate 200mg HAYES-- received on 04/03/2023 * haldol po 10mg TID * Effexor ER 75mg daily 04/02/2023: thorazine 25 mg am and pm meal, 50 mg hs with additional 25 mg prn. Patient now agreeable to Haldol dec. Will decrease to 10 mg TID as interval increase of midday dose to 20 mg has not helped with pm breakthrough. Will load 200 mg dose today with additional 100-200 mg loading and PO Haldol taper per Dr. Smith. 04/01/2023: ortho cleared patient, he can discontinue boot at his own comfort, his residual foot deformity does not require surgery 03/28/2023: diversion meeting outcome is all community resources have been exhausted and patient will remain referred to [facility]. repeat foot x ray tomorrow. Patient desires d/c trazodone. completed quality case review with [facility] peer to peer Dr. Jimenez discussing that patient has repeatedly refused clozaril and HAYES and prefers thorazine/haldol component, current doses are best for his BP. Discussed rationale for low dose Effexor XR. Patient has become agitated/disinhibited on higher doses of antidepressants in past so I would not titrate. 03/25/2023: * Consolidate thorazine to 75mg HS * Continue haldol 10mg qAM, 20mg miday and 10mg HS 03/22/2023: * increase haloperidol to 10 mg qAM, 20mg midday and 10mg HS- started this schedule 03/22/2023 * consolidate chlorpromazine to 25mg qAM and 50mg HS 03/21/2023: * continue haloperidol 10 mg TID - started this schedule 03/03/2023 * consolidate chlorpromazine to 25mg qAM and 50mg HS 03/20/2023: * continue haloperidol 10 mg TID - started this schedule 03/03/2023 * continue chlorpromazine 25 mg TID - resumed 03/17/2023 * change cogentin from HS scheduled to HS prn use for muscle stiffness to reduce polypharmacy 03/18/2023: * continue haloperidol 10 mg TID - started this schedule 03/03/2023 * continue chlorpromazine 25 mg TID - resumed 03/17/2023 * was committed for extended treatment at 304 hearing today, plan to pursue [facility] transfer 03/17/2023: * continue haloperidol 10 mg TID - started this schedule 03/03/2023 * increase chlorpromazine to 25 mg TID * probable 304 hearing on February 03/07/2023: Start trazodone 100mg HS po. Continue haldol 10mg TID po 03/03/2023: unable to resume thorazine, offered to try splitting Haldol to TID to see if any improvement in orthostasis. 03/02/2023: The patient was admitted to the [facility] (community hospital inpatient mental health unit) on q15 min checks (behavioral with suicide precautions) for safety. The patient will participate in group, recreational, and milieu therapies and will be offered additional individual and family sessions as clinically appropriate. Continue to hold thorazine and monitor BP. Inventory Assets Strengths: taking PO meds, cooperative with tx plan Needs: longer term hospitalization, medical monitoring Suicide Risk Level Suicide Risk Level: Moderate (q15 min suicide checks) Suicide Risk Level Comments: The patient remains at moderate risk, primarily because of his persistent intermittent persecutory auditory hallucinations. He again reiterates that he is not experiencing suicidal thoughts, does not have any suicidal intent, and has no plan for suicide. He denies any command AH. He also convincingly assures us that he will notify staff if thoughts of self-harm emerge and has been consistently seeking out staff support when he feels overwhelmed by hallucinations. Risk Factors Assessment Male: Yes : Yes Do You Have Access To A Gun?: No Mental Health Diagnoses: Yes Previous Attempt: Yes Previous Psychiatric Hospitalization: Yes Protective Factors Assessment Employed: No Interval History Identifying Information UMBERTO DAMIAN is a 52-year-old man who lives in a [place] [facility] with a history of schizophrenia, who eloped after returning to his f[facility] and was found by police wandering with concern for dehydration due to hot temperatures/humidity. He is on a 304 commitment as of 03/18/2023. Chief Complaint "Having another good day". Review of Systems Sleep Information Total Hours of Sleep: 7 Sleep Comments: Up for a snack Meal Information Percent Meal Consumed - Breakfast: 100 Percent Meal Consumed - Lunch: 100 Percent Meal Consumed - Dinner: 100 Nutrition Comment: Initially refused but later ate supper Subjective Subjective The patient was seen and assessed and interval progress reviewed in a multidisciplinary team meeting with the treatment team. For details, see the "Impression" section. Overall I spent a total of 23 minutes for this inpatient follow-up including review of chart records, direct evaluation of the patient [id number], counseling the patient, risk assessment, discussion during interdisciplinary treatment rounds, [testifying at the patient's commitment hearing, ]and documentation in the electronic health record. Physical Exam Psychiatric Orientation: alert, oriented to person, oriented to place, oriented to time and cooperative Apperance: appropriately dressed and appropriately groomed Eye Contact: good eye contact Motor Behavior: no abnormal motor movements Speech: normal rate/rhythm/volume of speech Affect: euthymic affect and mood congruent with affect; no depressed affect Mood: no depressed mood Thought Process: clear/coherent thought process and + concrete thought process Thought Content: reality based without delusions Suicidal Thoughts: denies suicidal thoughts, denies suicidal plan and denies suicidal intent Homicidal Thoughts: denies homicidal thoughts Hallucinations: + auditory hallucinations (intermittent) and + visual hallucinations (intermittently seeing people in trenchcoats, falling into a garden) Cognition: recent memory grossly intact, remote memory grossly intact, attention grossly intact and language grossly intact Estimated Intelligence: average estimated intelligence and consistent with education level Insight: + limited insight Judgment: + limited judgement Vital Signs (Past 24 Hours) Last Vital Signs Temp 36.3 C L 05/11/23 06:48 Pulse 86 05/11/23 06:49 Resp 16 05/11/23 06:48 BP 110/74 05/11/23 06:49 Pulse Ox 99 05/07/23 06:00 O2 Del Method Room Air 05/07/23 06:00 Results & Data ([facility]) Current Inpatient Medications Current Inpatient Medications: Current Inpatient Medications Al Hydrox/Mg Hydrox/Simethicone (Aluminum/Magnesium Susp 30 Ml Udc) 30 ml PO Q4H PRN PRN Reason: GI Upset Stop: 06/09/23 05:14 Chlorpromazine HCl (Chlorpromazine Hcl 25 Mg Tab) 50 mg PO [id number] [facility] Stop: 05/22/23 06:59 Last Admin: 05/11/23 07:10 Dose: 50 mg Chlorpromazine HCl (Chlorpromazine Hcl 25 Mg Tab) 50 mg PO Q6 PRN PRN Reason: psychosis Stop: 05/31/23 18:21 Last Admin: 05/09/23 18:44 Dose: 50 mg Chlorpromazine HCl (Chlorpromazine Hcl 100 Mg Tab) 300 mg PO DAILY@2030 [facility] Stop: 05/26/23 20:29 Last Admin: 05/10/23 20:32 Dose: 300 mg Docusate Sodium (Docusate Sodium 100 Mg Cap) 200 mg PO HS JOSEMANUEL Stop: 05/31/23 21:59 Last Admin: 05/10/23 20:32 Dose: 200 mg Hydroxyzine HCl (Hydroxyzine Hcl 25 Mg Tab) 25 mg PO Q4H PRN PRN Reason: Anxiety Stop: 06/09/23 05:09 Hydroxyzine HCl (Hydroxyzine Hcl 25 Mg Tab) 50 mg PO HSZ PRN PRN Reason: Insomnia Stop: 06/09/23 05:11 Magnesium Hydroxide (Magnesium Hydroxide Susp 30 Ml Udc) 30 ml PO DAILY PRN PRN Reason: Constipation Stop: 06/09/23 05:15 Miscellaneous (Pending Order) 1 each N/A Q30D@0900 [facility] Stop: 11/29/23 08:59 Perphenazine (Perphenazine 2 Mg Tablet) 8 mg PO BID [facility] Stop: 06/03/23 20:59 Last Admin: 05/11/23 08:35 Dose: 8 mg Venlafaxine HCl (Venlafaxine Hcl Xr 150 Mg Capxr) 150 mg PO QAM [facility] Stop: 06/09/23 08:59 Last Admin: 05/11/23 08:35 Dose: 150 mg Mental Health & Subst Abuse Tx Psychiatrist Name of Psychiatrist: Dr. Umberto Aviles Psychiatrist's Psychiatric Appointment Comment: Telehealth Therapist Name of Therapist: Chary Velasquez Therapist's Therapy Appointment Comment: [id number], [place] [address] Post Discharge Appointments Primary Care Physician Name Of Family Doctor/PCP: You Brooks
[2023-05-11] MEDS: DOCUSATE SODIUM 100 MG CAP PO SCH (20:41)
[2023-05-12] MEDS: chlorproMAZINE HCL 25 MG TAB PO SCH ×2 (06:40→14:02)
[2023-05-12] MEDS: PERPHENAZINE 2 MG TAB PO SCH ×2 (08:43→21:06)
[2023-05-12] MEDS: VENLAFAXINE HCL XR 150 MG CAPXR PO SCH (08:44)
--- NOTE | 2023-05-12 10:44 | Psychiatric Progress Note ---
Date of Service May 12, 2023 Impression / Recommendations Impression 52 yo man with schizophrenia with multiple recent psychiatric hospitalizations after each has eloped from his [facility]. [facility]. No current bed date. [facility] due to psychosis and limited ability to tolerate peers and hx of aggression with delusions 05/12/2023: Says that he's "having another really good day" thus far today. He reports minimal hallucinations, saying "I don't really notice them that much if I don't think about them". Asks "you're not going to change the medication, are you?", expresing awareness of our several previous discussions about the strong recommendation in general to avoid multiple antipsychotic medications. 05/11/2023: Pt reports he's "having another good day" with minimal hallucinations. Accurately anticipates that I'll want to discuss his being on 3 antipsychotics, 2 of them phenothiazines, with a goal of formulating a plan to transition to either chlorpromazine alone or perphenazine alone, but not both. He says he feels as if he's doing very well and is fearful of relapse. He and I have already concluded that available evidence strongly supports that, for some reason, he has never done well on monotherapy with anything and has done best when on both haloperidol and chlorpromazine (the only phenothiazine he appears to have taken in the past). 05/10/2023: Reports "feeling a lot better today" and reports "the hallucinations are back under control". Discussed that this improved with no change in medication, repeating my opinion that medication changes are best avoided unless necessary but that use of 4 antipsychotics is deprecated. Pt emphasizes that he's very happy with how he's doing right now and really doesn't want to change the regimen. 05/09/2023: Reports "having a bad day" with more prominent, distressing visual hallucinations of "dark" figures experienced as nefarious and threatening. I'm very loath to change antipsychotic regimen right now given history of worsened psychosis with most medication changes. A record review undertaken by RN reveals a fairly strong pattern of 2-3 day periods of worsened psychosis every 2-3 weeks seemingly unrelated to whether antipsychotic regimen is changed or not. I note that venlafaxine dose is unusually low and suspect that anxiety would respond to dose more in the usual therapeutic range of ~225 mg/day. 05/08/2023: Reports "feeling OK" today, with "just little hallucinations now and then". However, there have been multiple medication changes since I last saw him 3 weeks ago and he's not on perphenazine in addition to chlorpromazine and depot haloperidol. Oral haloperidol has finally been eliminated. He says he's tolerating this regimen well. He tells me he doesn't think he's taken perphenazine ("Trilafon") before. His current chlorpromazine dose totalling 400 mg/day remains low compared to typical monotherapy doses in the 600 to 800 mg/day range but there's been a sense that it might have caused hypotension (not currently seen) in the past. Since perphenazine is, like chlorpromazine, a phenothiazine (albeit of medium rather than low potency), selecting one would appear prudent. By history as related by pt and reflected in the record, pt has done best when on both haloperidol and chlorpromazine in the past and has failed numerous trial of alternate agents. However, there's also a strong correlation between medication changes and symptoms exacerbation so I'm loath to change the phenothiazines just out of preference to minimize antipsychotics since he's currently doing well. I'll attempt to determine whether he's been documented as having taken perphenazine before. 05/07/23: Mood remains stable today, ongoing lessening of hallucination intensity since introduction of Trilafon. Tolerating Trilafon and other psychiatric medications without any side effects. Awaiting [facility] placement (1) Schizophrenia: (2) Paranoid: Plan 05/11/2023: * continue perphenazine 8 mg BID (see notes in Impression re: use of 3 antipsychotics) - started on 05/04/2023 * continue chlorpromazine 50 mg QAM, 50 mg midday, and 300 mg QHS - increased 04/26/2023 from 50 mg BID & 100 mg QHS * continue venlafaxine ER 150 mg daily - increased 05/09/2023 to 150 mg, started 03/28/2023 at 75 mg * continue haloperidol decanoate total of 400 mg HAYES over two days - received on 05/04/2023 and 05/05/2023 * [facility] (he's on the wait list) 05/11/2023: * continue perphenazine 8 mg BID (see notes in Impression re: use of 3 antipsychotics) - started on 05/04/2023 * continue chlorpromazine 50 mg QAM, 50 mg midday, and 300 mg QHS - increased 04/26/2023 from 50 mg BID & 100 mg QHS * continue venlafaxine ER 150 mg daily - increased 05/09/2023 to 150 mg, started 03/28/2023 at 75 mg * continue haloperidol decanoate total of 400 mg HAYES over two days - received on 05/04/2023 and 05/05/2023 05/10/2023: * continue perphenazine 8 mg BID for now despite concern about use of 2 phenothiazines and 3 total antipsychotics - started on 05/04/2023 * continue chlorpromazine 50 mg QAM, 50 mg midday, and 300 mg QHS - increased 04/26/2023 from 50 mg BID & 100 mg QHS * continue venlafaxine ER 150 mg daily - increased 05/09/2023 to 150 mg, started 03/28/2023 at 75 mg * continue haloperidol decanoate total of 400 mg HAYES over two days - received on 05/04/2023 and 05/05/2023 05/09/2023: * continue perphenazine 8 mg BID for now despite concern about use of 2 phenothiazines and 3 total antipsychotics - started on 05/04/2023 * continue chlorpromazine 50 mg QAM, 50 mg midday, and 300 mg QHS - increased 1 06/26/2022 from 50 mg BID & 100 mg QHS * increase venlafaxine ER 75 mg daily - started 03/28/2023 * continue haloperidol decanoate total of 400 mg HAYES over two days - received on 05/04/2023 and 05/05/2023 05/08/2023: * continue perphenazine 8 mg BID, though I'm fairly concerned about the use of 2 phenothiazines and 3 total antipsychotics - started on 05/04/2023 * continue chlorpromazine 50 mg QAM, 50 mg midday, and 300 mg QHS - increased 04/26/2023 from 50 mg BID & 100 mg QHS * continue venlafaxine ER 75 mg daily - started 03/28/2023 * continue haloperidol decanoate total of 400mg HAYES over two days; 200 mg HAYES - received on 05/04/2023 and 05/05/2023 05/07/2023: * Trilafon 8mg BID po --started on 05/04/2023 * Continue thorazine 50mg qAM, 50mg qafternoon and 300mg HS --increased on 04/26/2023 * continue venlafaxine ER 75 mg daily - started 03/28/2023 * continue haloperidol decanoate total of 400mg HAYES over two days; 200 mg HAYES - received on 05/04/2023 and 05/05/2023 05/06/2023: * Trilafon 8mg BID po --started on 05/04/2023 * Continue thorazine 50mg qAM, 50mg qafternoon and 300mg HS --increased on 04/26/2023 * continue venlafaxine ER 75 mg daily - started 03/28/2023 * continue haloperidol decanoate total of 400mg HAYES over two days; 200 mg HAYES - received on 05/04/2023 and 05/05/2023 05/05/2023: * Trilafon 8mg BID po --started on 05/04/2023 * Continue thorazine 50mg qAM, 50mg qafternoon and 300mg HS --increased on 04/26/2023 * continue venlafaxine ER 75 mg daily - started 03/28/2023 * continue haloperidol decanoate total of 400mg HAYES over two days; 200 mg HAYES - received on 05/04/2023 and 05/05/2023 05/02/2023: * Discontinue haldol po * Start risperidone 1mg BID with 0.5mg BID prn for hallucinations * Continue thorazine 50mg qAM, 50mg qafternoon and 300mg HS --increased on * continue venlafaxine ER 75 mg daily - started 03/28/2023 * continue haloperidol decanoate total of 400mg HAYES over two days; 200 mg HAYES - received on 04/03/2023 and additional 200mg HAYES - received on 04/05/2023; likely will hold off on next dose pending risperidone trial 04/28/2023: continue current meds and tx plan, discussed Depakote augmentation if fails to make steady improvement. 04/27/2023: slow rate of Haldol taper--resume 10 mg BID meals and monitor BP on higher dose of thorazine. If symptoms persist, he may be agreeable to trial of clozaril in place of thorazine and/or depakote. Still a week out from Haldol dec. 04/26/2023: titrate hs thorazine, continue Haldol taper (oral, patient received dec) due on or before 05/05/23. 04/25/2023: d/c hs Haldol in favor of increase in thorazine to 200 mg hs. monitor for orthostasis 04/23/2023: * Chlorpromazine 50mg qAM and 50mg qafternoon and 100mg HS - increased 04/21/2023 from 50mg HS to 100mg HS * continue haloperidol decanoate total of 400mg HAYES over two days; 200 mg HAYES - received on 04/03/2023 and additional 200mg HAYES - received on 04/05/2023 * increase haloperidol po back to 10mg TID - reduced to 5 TID on 04/21/2023 with worsening hallucinations, previously reduced to 10mg TID dose on 04/02/2023 when decanoate was started * continue venlafaxine ER 75 mg daily - started 03/28/2023 04/21/2023: * Chlorpromazine 50mg qAM and 50mg qafternoon and 100mg HS - increased 04/21/2023 from 50mg HS to 100mg HS * continue haloperidol decanoate total of 400mg HAYES over two days; 200 mg HAYES - received on 04/03/2023 and additional 200mg HAYES - received on 04/05/2023 * decrease haloperidol po to 5 mg TID - reduced from 10 mg TID, previously reduced to 10mg TID dose on 04/02/2023 when decanoate was started * continue venlafaxine ER 75 mg daily - started 03/28/2023 04/17/2023: * continue chlropromazine 50mg TID - increased 04/13/2023 from 25 mg BID & 50 mg QHS * continue haloperidol decanoate total of 400mg HYAES over two days; 200 mg HAYES - received on 04/03/2023 and additional 200mg HAYES - received on 04/05/2023 * continue haloperidol 10 mg TID - reduced to this dose on 04/02/2023 when decanoate was started * continue venlafaxine ER 75 mg daily - started 03/28/2023 04/16/2023: * continue chlropromazine 50mg TID - increased 04/13/2023 from 25 mg BID & 50 mg QHS * continue haloperidol decanoate 200 mg HAYES - received on 04/03/2023 * continue haloperidol 10 mg TID - reduced to this dose on 04/02/2023 when decanoate was started * continue venlafaxine ER 75 mg daily - started 03/28/2023 04/15/2023: * continue chlropromazine 50mg TID - increased 04/13/2023 from 25 mg BID & 50 mg QHS * continue haloperidol decanoate 200 mg HAYES - received on 04/03/2023 * continue haloperidol 10 mg TID - reduced to this dose on 04/02/2023 when decanoate was started * continue venlafaxine ER 75 mg daily - started 03/28/2023 04/14/2023: * continue chlropromazine 50mg TID - increased 04/13/2023 from 25 mg BID & 50 mg QHS * continue haloperidol decanoate 200 mg HAYES - received on 04/03/2023 * continue haloperidol 10 mg TID - reduced to this dose on 04/02/2023 when decanoate was started * continue venlafaxine ER 75 mg daily - started 03/28/2023 04/13/2023: * continue chlropromazine 25 mg QAM, 25 mg QPM, 50mg QHS - adjusted to this schedule on 04/02/2023 * continue haloperidol decanoate 200 mg HAYES - received on 04/03/2023 * continue haloperidol 10 mg TID - reduced to this dose on 04/02/2023 when decanoate was started * continue venlafaxine ER 75 mg daily - started 03/28/2023 04/12/2023: * continue chlropromazine 25 mg QAM, 25 mg QPM, 50mg QHS - adjusted to this schedule on 04/02/2023 * continue haloperidol decanoate 200 mg HAYES - received on 04/03/2023 * continue haloperidol 10 mg TID - reduced to this dose on 04/02/2023 when decanoate was started * continue venlafaxine ER 75 mg daily - started 03/28/2023 04/11/2023: * continue chlropromazine 25 mg QAM, 25 mg QPM, 50mg QHS - adjusted to this schedule on 04/02/2023 * continue haloperidol decanoate 200 mg HAYES - received on 04/03/2023 * continue haloperidol 10 mg TID - reduced to this dose on 04/02/2023 when decanoate was started * continue venlafaxine ER 75 mg daily - started 03/28/2023 04/10/2023: * continue chlropromazine 25 mg QAM, 25 mg QPM, 50mg QHS - adjusted to this schedule on 04/02/2023 * continue haloperidol decanoate 200 mg HAYES - received on 04/03/2023 * continue haloperidol 10 mg TID - reduced to this dose on 04/02/2023 when decanoate was started * continue venlafaxine ER 75 mg daily - started 03/28/2023 04/05/2023: Additional Haldol decanoate 200mg HAYES, continue po thorazine and po haldol 04/04/2023: Continue current medications and tx plan. Consider additional dose of haldol decanoate 100-200mg HAYES tomorrow. 04/03/2023: * thorazine 25mg qAM, 25mg qdinner, 50mg HS * haldol decanoate 200mg HAYES-- received on 04/03/2023 * haldol po 10mg TID * Effexor ER 75mg daily 04/02/2023: thorazine 25 mg am and pm meal, 50 mg hs with additional 25 mg prn. Patient now agreeable to Haldol dec. Will decrease to 10 mg TID as interval increase of midday dose to 20 mg has not helped with pm breakthrough. Will load 200 mg dose today with additional 100-200 mg loading and PO Haldol taper per Dr. Smith. 04/01/2023: ortho cleared patient, he can discontinue boot at his own comfort, his residual foot deformity does not require surgery 03/28/2023: diversion meeting outcome is all community resources have been exhausted and patient will remain referred to [facility]. repeat foot x ray tomorrow. Patient desires d/c trazodone. completed quality case review with [facility] peer to peer Dr. Jimenez discussing that patient has repeatedly refused clozaril and HAYES and prefers thorazine/haldol component, current doses are best for his BP. Discussed rationale for low dose Effexor XR. Patient has become agitated/disinhibited on higher doses of antidepressants in past so I would not titrate. 03/25/2023: * Consolidate thorazine to 75mg HS * Continue haldol 10mg qAM, 20mg miday and 10mg HS 03/22/2023: * increase haloperidol to 10 mg qAM, 20mg midday and 10mg HS- started this schedule 03/22/2023 * consolidate chlorpromazine to 25mg qAM and 50mg HS 03/21/2023: * continue haloperidol 10 mg TID - started this schedule 03/03/2023 * consolidate chlorpromazine to 25mg qAM and 50mg HS 03/20/2023: * continue haloperidol 10 mg TID - started this schedule 03/03/2023 * continue chlorpromazine 25 mg TID - resumed 03/17/2023 * change cogentin from HS scheduled to HS prn use for muscle stiffness to reduce polypharmacy 03/18/2023: * continue haloperidol 10 mg TID - started this schedule 03/03/2023 * continue chlorpromazine 25 mg TID - resumed 03/17/2023 * was committed for extended treatment at 304 hearing today, plan to pursue [facility] transfer 03/17/2023: * continue haloperidol 10 mg TID - started this schedule 03/03/2023 * increase chlorpromazine to 25 mg TID * probable 304 hearing on February 03/07/2023: Start trazodone 100mg HS po. Continue haldol 10mg TID po 03/03/2023: unable to resume thorazine, offered to try splitting Haldol to TID to see if any improvement in orthostasis. 03/02/2023: The patient was admitted to the [facility] (locked inpatient mental health unit) on q15 min checks (behavioral with suicide precautions) for safety. The patient will participate in group, recreational, and milieu therapies and will be offered additional individual and family sessions as clinically appropriate. Continue to hold thorazine and monitor BP. Inventory Assets Strengths: taking PO meds, cooperative with tx plan Needs: longer term hospitalization, medical monitoring Suicide Risk Level Suicide Risk Level: Moderate (q15 min suicide checks) Suicide Risk Level Comments: The patient remains at moderate risk, primarily because of his persistent intermittent persecutory auditory hallucinations. He again reiterates that he is not experiencing suicidal thoughts, does not have any suicidal intent, and has no plan for suicide. He denies any command AH. He also convincingly assures us that he will notify staff if thoughts of self-harm emerge and has been consistently seeking out staff support when he feels overwhelmed by hallucinations. Risk Factors Assessment Male: Yes : Yes Do You Have Access To A Gun?: No Mental Health Diagnoses: Yes Previous Attempt: Yes Previous Psychiatric Hospitalization: Yes Protective Factors Assessment Employed: No Interval History Identifying Information UMBERTO DAMIAN is a 52-year-old man who lives in a [place] [facility] with a history of schizophrenia, who eloped after returning to his fpc and was found by police wandering with concern for dehydration due to hot temperatures/humidity. He is on a 304 commitment as of 03/18/2023. Chief Complaint "Having a really good day so far!". Review of Systems Sleep Information Total Hours of Sleep: 7.5 Sleep Comments: Up for a snack Meal Information Percent Meal Consumed - Breakfast: 100 Percent Meal Consumed - Lunch: 100 Percent Meal Consumed - Dinner: 100 Nutrition Comment: Initially refused but later ate supper Subjective Subjective The patient was seen and assessed and interval progress reviewed in a multidisciplinary team meeting with the treatment team. For details, see the "Impression" section. Overall I spent a total of 22 minutes for this inpatient follow-up including review of chart records, direct evaluation of the patient [id number], counseling the patient, medication education with the patient, risk assessment, discussion during interdisciplinary treatment rounds, and documentation in the electronic health record. Physical Exam Psychiatric Orientation: alert, oriented to person, oriented to place, oriented to time and cooperative Apperance: appropriately dressed and appropriately groomed Eye Contact: good eye contact Motor Behavior: no abnormal motor movements Speech: normal rate/rhythm/volume of speech Affect: euthymic affect and mood congruent with affect; no depressed affect Mood: no depressed mood Thought Process: clear/coherent thought process and + concrete thought process Thought Content: reality based without delusions Suicidal Thoughts: denies suicidal thoughts, denies suicidal plan and denies suicidal intent Homicidal Thoughts: denies homicidal thoughts Hallucinations: + auditory hallucinations (intermittent) and + visual hallucinations (intermittently seeing people in trenchcoats, falling into a garden) Cognition: recent memory grossly intact, remote memory grossly intact, attention grossly intact and language grossly intact Estimated Intelligence: average estimated intelligence and consistent with education level Insight: + limited insight Judgment: + limited judgement Vital Signs (Past 24 Hours) Last Vital Signs Temp 36.6 C 05/12/23 06:44 Pulse 89 05/12/23 06:44 Resp 16 05/12/23 06:44 BP 105/72 05/12/23 06:44 Pulse Ox 99 05/07/23 06:00 O2 Del Method Room Air 05/07/23 06:00 Results & Data ([facility]) Current Inpatient Medications Current Inpatient Medications: Current Inpatient Medications Al Hydrox/Mg Hydrox/Simethicone (Aluminum/Magnesium Susp 30 Ml Udc) 30 ml PO Q4H PRN PRN Reason: GI Upset Stop: 06/09/23 05:14 Chlorpromazine HCl (Chlorpromazine Hcl 25 Mg Tab) 50 mg PO [id number] [facility] Stop: 05/22/23 06:59 Last Admin: 05/12/23 06:40 Dose: 50 mg Chlorpromazine HCl (Chlorpromazine Hcl 25 Mg Tab) 50 mg PO Q6 PRN PRN Reason: psychosis Stop: 05/31/23 18:21 Last Admin: 05/09/23 18:44 Dose: 50 mg Chlorpromazine HCl (Chlorpromazine Hcl 100 Mg Tab) 300 mg PO DAILY@2030 JOSEMANUEL Stop: 05/26/23 20:29 Last Admin: 05/11/23 20:41 Dose: 300 mg Docusate Sodium (Docusate Sodium 100 Mg Cap) 200 mg PO HS JOSEMANUEL Stop: 05/31/23 21:59 Last Admin: 05/11/23 20:41 Dose: 200 mg Hydroxyzine HCl (Hydroxyzine Hcl 25 Mg Tab) 25 mg PO Q4H PRN PRN Reason: Anxiety Stop: 06/09/23 05:09 Hydroxyzine HCl (Hydroxyzine Hcl 25 Mg Tab) 50 mg PO HSZ PRN PRN Reason: Insomnia Stop: 06/09/23 05:11 Magnesium Hydroxide (Magnesium Hydroxide Susp 30 Ml Udc) 30 ml PO DAILY PRN PRN Reason: Constipation Stop: 06/09/23 05:15 Miscellaneous (Pending Order) 1 each N/A Q30D@0900 JOSEMANUEL Stop: 11/29/23 08:59 Perphenazine (Perphenazine 2 Mg Tablet) 8 mg PO BID JOSEMANUEL Stop: 06/03/23 20:59 Last Admin: 05/12/23 08:43 Dose: 8 mg Venlafaxine HCl (Venlafaxine Hcl Xr 150 Mg Capxr) 150 mg PO QAM JOSEMANUEL Stop: 06/09/23 08:59 Last Admin: 05/12/23 08:44 Dose: 150 mg Mental Health & Subst Abuse Tx Psychiatrist Name of Psychiatrist: Dr. Umberto Aviles Psychiatrist's Psychiatric Appointment Comment: Telehealth Therapist Name of Therapist: Chary Velasquez Therapist's Therapy Appointment Comment: [address] [place] [address] [id number], [place] [address] Post Discharge Appointments Primary Care Physician Name Of Family Doctor/PCP: You Brooks
[2023-05-12] MEDS: DOCUSATE SODIUM 100 MG CAP PO SCH (21:07)
[2023-05-13] MEDS: hydrOXYzine HCl 25 MG TAB PO PRN (04:08)
[2023-05-13] MEDS: chlorproMAZINE HCL 25 MG TAB PO SCH ×2 (06:30→13:19)
[2023-05-13] MEDS: PERPHENAZINE 2 MG TAB PO SCH ×2 (09:13→20:47)
[2023-05-13] MEDS: VENLAFAXINE HCL XR 150 MG CAPXR PO SCH (09:13)
--- NOTE | 2023-05-13 10:14 | Psychiatric Progress Note ---
Date of Service May 13, 2023 Impression / Recommendations Impression 52 yo man with schizophrenia with multiple recent psychiatric hospitalizations after each has eloped from his fpc. On 304 commitment and accepted to [facility]. No current bed date. [facility] due to psychosis and limited ability to tolerate peers and hx of aggression with delusions 05/13/2023: Reports that he's "doing good" with "not much of hallucinations". Again voices apprehension about whether I will change his regimen of 3 antipsychotics. Denies any side effects. 05/12/2023: Says that he's "having another really good day" thus far today. He reports minimal hallucinations, saying "I don't really notice them that much if I don't think about them". Asks "you're not going to change the medication, are you?", expressing awareness of our several previous discussions about the strong recommendation in general to avoid multiple antipsychotic medications. 05/11/2023: Pt reports he's "having another good day" with minimal hallucinations. Accurately anticipates that I'll want to discuss his being on 3 antipsychotics, 2 of them phenothiazines, with a goal of formulating a plan to transition to either chlorpromazine alone or perphenazine alone, but not both. He says he feels as if he's doing very well and is fearful of relapse. He and I have already concluded that available evidence strongly supports that, for some reason, he has never done well on monotherapy with anything and has done best when on both haloperidol and chlorpromazine (the only phenothiazine he appears to have taken in the past). 05/10/2023: Reports "feeling a lot better today" and reports "the hallucinations are back under control". Discussed that this improved with no change in medication, repeating my opinion that medication changes are best avoided unless necessary but that use of 4 antipsychotics is deprecated. Pt emphasizes that he's very happy with how he's doing right now and really doesn't want to change the regimen. 05/09/2023: Reports "having a bad day" with more prominent, distressing visual hallucinations of "dark" figures experienced as nefarious and threatening. I'm very loath to change antipsychotic regimen right now given history of worsened psychosis with most medication changes. A record review undertaken by RN reveals a fairly strong pattern of 2-3 day periods of worsened psychosis every 2-3 weeks seemingly unrelated to whether antipsychotic regimen is changed or not. I note t hat venlafaxine dose is unusually low and suspect that anxiety would respond to dose more in the usual therapeutic range of ~225 mg/day. 05/08/2023: Reports "feeling OK" today, with "just little hallucinations now and then". However, there have been multiple medication changes since I last saw him 3 weeks ago and he's not on perphenazine in addition to chlorpromazine and depot haloperidol. Oral haloperidol has finally been eliminated. He says he's tolerating this regimen well. He tells me he doesn't think he's taken perphenazine ("Trilafon") before. His current chlorpromazine dose totalling 400 mg/day remains low compared to typical monotherapy doses in the 600 to 800 mg/day range but there's been a sense that it might have caused hypotension (not currently seen) in the past. Since perphenazine is, like chlorpromazine, a phenothiazine (albeit of medium rather than low potency), selecting one would appear prudent. By history as related by pt and reflected in the record, pt has done best when on both haloperidol and chlorpromazine in the past and has failed numerous trial of alternate agents. However, there's also a strong correlation between medication changes and symptoms exacerbation so I'm loath to change the phenothiazines just out of preference to minimize antipsychotics since he's currently doing well. I'll attempt to determine whether he's been documented as having taken perphenazine before. 05/07/23: Mood remains stable today, ongoing lessening of hallucination intensity since introduction of Trilafon. Tolerating Trilafon and other psychiatric medications without any side effects. [facility] (1) Schizophrenia: (2) Paranoid: Plan 05/13/2023: * continue perphenazine 8 mg BID (see notes in Impression re: use of 3 antipsychotics) - started on 05/04/2023 * continue chlorpromazine 50 mg QAM, 50 mg midday, and 300 mg QHS - increased 04/26/2023 from 50 mg BID & 100 mg QHS * continue venlafaxine ER 150 mg daily - increased 05/09/2023 to 150 mg, started 03/28/2023 at 75 mg * continue haloperidol decanoate total of 400 mg HAYES over two days - received on 05/04/2023 and 05/05/2023 * [facility] ([facility]'s on the wait list) 05/12/2023: * continue perphenazine 8 mg BID (see notes in Impression re: use of 3 antipsychotics) - started on 05/04/2023 * continue chlorpromazine 50 mg QAM, 50 mg midday, and 300 mg QHS - increased 04/26/2023 from 50 mg BID & 100 mg QHS * continue venlafaxine ER 150 mg daily - increased 05/09/2023 to 150 mg, started 03/28/2023 at 75 mg * continue haloperidol decanoate total of 400 mg HAYES over two days - received on 05/04/2023 and 05/05/2023 * [facility] ([facility]'s on [facility] wait list) 05/11/2023: * continue perphenazine 8 mg BID (see notes in Impression re: use of 3 antipsychotics) - started on 05/04/2023 * continue chlorpromazine 50 mg QAM, 50 mg midday, and 300 mg QHS - increased 04/26/2023 from 50 mg BID & 100 mg QHS * continue venlafaxine ER 150 mg daily - increased 05/09/2023 to 150 mg, started 03/28/2023 at 75 mg * continue haloperidol decanoate total of 400 mg HAYES over two days - received on 05/04/2023 and 05/05/2023 05/10/2023: * continue perphenazine 8 mg BID for now despite concern about use of 2 phenothiazines and 3 total antipsychotics - started on 05/04/2023 * continue chlorpromazine 50 mg QAM, 50 mg midday, and 300 mg QHS - increased 04/26/2023 from 50 mg BID & 100 mg QHS * continue venlafaxine ER 150 mg daily - increased 05/09/2023 to 150 mg, started 03/28/2023 at 75 mg * continue haloperidol decanoate total of 400 mg HAYES over two days - received on 05/04/2023 and 05/05/2023 05/09/2023: * continue perphenazine 8 mg BID for now despite concern about use of 2 phenothiazines and 3 total antipsychotics - started on 05/04/2023 * continue chlorpromazine 50 mg QAM, 50 mg midday, and 300 mg QHS - increased 04/26/2023 from 50 mg BID & 100 mg QHS * increase venlafaxine ER 75 mg daily - started 03/28/2023 * continue haloperidol decanoate total of 400 mg HAYES over two days - received on 05/04/2023 and 05/05/2023 05/08/2023: * continue perphenazine 8 mg BID, though I'm fairly concerned about the use of 2 phenothiazines and 3 total antipsychotics - started on 05/04/2023 * continue chlorpromazine 50 mg QAM, 50 mg midday, and 300 mg QHS - increased 04/26/2023 from 50 mg BID & 100 mg QHS * continue venlafaxine ER 75 mg daily - started 03/28/2023 * continue haloperidol decanoate total of 400mg HAYES over two days; 200 mg HAYES - received on 05/04/2023 and 05/05/2023 05/07/2023: * Trilafon 8mg BID po --started on 05/04/2023 * Continue thorazine 50mg qAM, 50mg qafternoon and 300mg HS --increased on 04/26/2023 * continue venlafaxine ER 75 mg daily - started 03/28/2023 * continue haloperidol decanoate total of 400mg HAYES over two days; 200 mg HAYES - received on 05/04/2023 and 05/05/2023 05/06/2023: * Trilafon 8mg BID po --started on 05/04/2023 * Continue thorazine 50mg qAM, 50mg qafternoon and 300mg HS --increased on 04/26/2023 * continue venlafaxine ER 75 mg daily - started 03/28/2023 * continue haloperidol decanoate total of 400mg HAYES over two days; 200 mg HAYES - received on 05/04/2023 and 05/05/2023 05/05/2023: * Trilafon 8mg BID po --started on 05/04/2023 * Continue thorazine 50mg qAM, 50mg qafternoon and 300mg HS --increased on 04/26/2023 * continue venlafaxine ER 75 mg daily - started 03/28/2023 * continue haloperidol decanoate total of 400mg HAYES over two days; 200 mg HAYES - received on 05/04/2023 and 05/05/2023 05/02/2023: * Discontinue haldol po * Start risperidone 1mg BID with 0.5mg BID prn for hallucinations * Continue thorazine 50mg qAM, 50mg qafternoon and 300mg HS --increased on 04/26/2023 * continue venlafaxine ER 75 mg daily - started 03/28/2023 * continue haloperidol decanoate total of 400mg HAYES over two days; 200 mg HAYES - received on 04/03/2023 and additional 200mg HAYES - received on 04/05/2023; likely will hold off on next dose pending risperidone trial 04/28/2023: continue current meds and tx plan, discussed Depakote augmentation if fails to make steady improvement. 04/27/2023: slow rate of Haldol taper--resume 10 mg BID meals and monitor BP on higher dose of thorazine. If symptoms persist, he may be agreeable to trial of clozaril in place of thorazine and/or depakote. Still a week out from Haldol dec. 04/26/2023: titrate hs thorazine, continue Haldol taper (oral, patient received dec) due on or before 05/05/23. 04/25/2023: d/c hs Haldol in favor of increase in thorazine to 200 mg hs. monitor for orthostasis 04/23/2023: * Chlorpromazine 50mg qAM and 50mg qafternoon and 100mg HS - increased 04/21/2023 from 50mg HS to 100mg HS * continue haloperidol decanoate total of 400mg HAYES over two days; 200 mg HAYES - received on 04/03/2023 and additional 200mg HAYES - received on 04/05/2023 * increase haloperidol po back to 10mg TID - reduced to 5 TID on 04/21/2023 with worsening hallucinations, previously reduced to 10mg TID dose on 04/02/2023 when decanoate was started * continue venlafaxine ER 75 mg daily - started 03/28/2023 04/21/2023: * Chlorpromazine 50mg qAM and 50mg qafternoon and 100mg HS - increased 04/21/2023 from 50mg HS to 100mg HS * continue haloperidol decanoate total of 400mg HAYES over two days; 200 mg HAYES - received on 04/03/2023 and additional 200mg HAYES - received on 04/05/2023 * decrease haloperidol po to 5 mg TID - reduced from 10 mg TID, previously reduced to 10mg TID dose on 04/02/2023 when decanoate was started * continue venlafaxine ER 75 mg daily - started 03/28/2023 04/17/2023: * continue chlropromazine 50mg TID - increased 04/13/2023 from 25 mg BID & 50 mg QHS * continue haloperidol decanoate total of 400mg HAYES over two days; 200 mg HAYES - received on 04/03/2023 and additional 200mg HAYES - received on 04/05/2023 * continue haloperidol 10 mg TID - reduced to this dose on 04/02/2023 when decanoate was started * continue venlafaxine ER 75 mg daily - started 03/28/2023 04/16/2023: * continue chlropromazine 50mg TID - increased 04/13/2023 from 25 mg BID & 50 mg QHS * continue haloperidol decanoate 200 mg HAYES - received on 04/03/2023 * continue haloperidol 10 mg TID - reduced to this dose on 04/02/2023 when decanoate was started * continue venlafaxine ER 75 mg daily - started 03/28/2023 04/15/2023: * continue chlropromazine 50mg TID - increased 04/13/2023 from 25 mg BID & 50 mg QHS * continue haloperidol decanoate 200 mg HAYES - received on 04/03/2023 * continue haloperidol 10 mg TID - reduced to this dose on 04/02/2023 when decanoate was started * continue venlafaxine ER 75 mg daily - started 03/28/2023 04/14/2023: * continue chlropromazine 50mg TID - increased 04/13/2023 from 25 mg BID & 50 mg QHS * continue haloperidol decanoate 200 mg HAYES - received on 04/03/2023 * continue haloperidol 10 mg TID - reduced to this dose on 04/02/2023 when decanoate was started * continue venlafaxine ER 75 mg daily - started 03/28/2023 04/13/2023: * continue chlropromazine 25 mg QAM, 25 mg QPM, 50mg QHS - adjusted to this schedule on 04/02/2023 * continue haloperidol decanoate 200 mg HAYES - received on 04/03/2023 * continue haloperidol 10 mg TID - reduced to this dose on 04/02/2023 when decanoate was started * continue venlafaxine ER 75 mg daily - started 03/28/2023 04/12/2023: * continue chlropromazine 25 mg QAM, 25 mg QPM, 50mg QHS - adjusted to this schedule on 04/02/2023 * continue haloperidol decanoate 200 mg HAYES - received on 04/03/2023 * continue haloperidol 10 mg TID - reduced to this dose on 04/02/2023 when decanoate was started * continue venlafaxine ER 75 mg daily - started 03/28/2023 04/11/2023: * continue chlropromazine 25 mg QAM, 25 mg QPM, 50mg QHS - adjusted to this schedule on 04/02/2023 * continue haloperidol decanoate 200 mg HAYES - received on 04/03/2023 * continue haloperidol 10 mg TID - reduced to this dose on 04/02/2023 when decanoate was started * continue venlafaxine ER 75 mg daily - started 03/28/2023 04/10/2023: * continue chlropromazine 25 mg QAM, 25 mg QPM, 50mg QHS - adjusted to this schedule on 04/02/2023 * continue haloperidol decanoate 200 mg HAYES - received on 04/03/2023 * continue haloperidol 10 mg TID - reduced to this dose on 04/02/2023 when decanoate was started * continue venlafaxine ER 75 mg daily - started 03/28/2023 04/05/2023: Additional Haldol decanoate 200mg HAYES, continue po thorazine and po haldol 04/04/2023: Continue current medications and tx plan. Consider additional dose of haldol decanoate 100-200mg HAYES tomorrow. 04/03/2023: * thorazine 25mg qAM, 25mg qdinner, 50mg HS * haldol decanoate 200mg HAYES-- received on 04/03/2023 * haldol po 10mg TID * Effexor ER 75mg daily 04/02/2023: thorazine 25 mg am and pm meal, 50 mg hs with additional 25 mg prn. Patient now agreeable to Haldol dec. Will decrease to 10 mg TID as interval increase of midday dose to 20 mg has not helped with pm breakthrough. Will load 200 mg dose today with additional 100-200 mg loading and PO Haldol taper per Dr. Smith. 04/01/2023: ortho cleared patient, he can discontinue boot at his own comfort, his residual foot deformity does not require surgery 03/28/2023: diversion meeting outcome is all community resources have been exhausted and patient will remain referred to [facility]. repeat foot x ray tomorrow. Patient desires d/c trazodone. completed quality case review with [facility] peer to peer Dr. Jimenez discussing that patient has repeatedly refused clozaril and HAYES and prefers thorazine/haldol component, current doses are best for his BP. Discussed rationale for low dose Effexor XR. Patient has become agitated/disinhibited on higher doses of antidepressants in past so I would not titrate. 03/25/2023: * Consolidate thorazine to 75mg HS * Continue haldol 10mg qAM, 20mg miday and 10mg HS 03/22/2023: * increase haloperidol to 10 mg qAM, 20mg midday and 10mg HS- started this schedule 03/22/2023 * consolidate chlorpromazine to 25mg qAM and 50mg HS 03/21/2023: * continue haloperidol 10 mg TID - started this schedule 03/03/2023 * consolidate chlorpromazine to 25mg qAM and 50mg HS 03/20/2023: * continue haloperidol 10 mg TID - started this schedule 03/03/2023 * continue chlorpromazine 25 mg TID - resumed 03/17/2023 * change cogentin from HS scheduled to HS prn use for muscle stiffness to reduce polypharmacy 03/18/2023: * continue haloperidol 10 mg TID - started this schedule 03/03/2023 * continue chlorpromazine 25 mg TID - resumed 03/17/2023 * was committed for extended treatment at 304 hearing today, plan to pursue [facility] transfer 03/17/2023: * continue haloperidol 10 mg TID - started this schedule 03/03/2023 * increase chlorpromazine to 25 mg TID * probable 304 hearing on February 03/07/2023: Start trazodone 100mg HS po. Continue haldol 10mg TID po 03/03/2023: unable to resume thorazine, offered to try splitting Haldol to TID to see if any improvement in orthostasis. 03/02/2023: The patient was admitted to the [facility] ([facility]) on q15 min checks (behavioral with suicide precautions) for safety. The patient will participate in group, recreational, and milieu therapies and will be offered additional individual and family sessions as clinically appropriate. Continue to hold thorazine and monitor BP. Inventory Assets Strengths: taking PO meds, cooperative with tx plan Needs: longer term hospitalization, medical monitoring Suicide Risk Level Suicide Risk Level: Moderate (q15 min suicide checks) Suicide Risk Level Comments: The patient remains at moderate risk, primarily because of his persistent intermittent persecutory auditory hallucinations. He again reiterates that he i s not experiencing suicidal thoughts, does not have any suicidal intent, and has no plan for suicide. He denies any command AH. He also convincingly assures us that he will notify staff if thoughts of self-harm emerge and has been consistently seeking out staff support when he feels overwhelmed by hallucinations. Risk Factors Assessment Male: Yes : Yes Do You Have Access To A Gun?: No Mental Health Diagnoses: Yes Previous Attempt: Yes Previous Psychiatric Hospitalization: Yes Protective Factors Assessment Employed: No Interval History Identifying Information UMBERTO DAMIAN is a 52-year-old man who lives in a [place] [facility] with a history of schizophrenia, who eloped after returning to his fpc and was found by police wandering with concern for dehydration due to hot temperatures/humidity. He is on a 304 commitment as of 03/18/2023. Chief Complaint "Doing good". Review of Systems Sleep Information Total Hours of Sleep: 6 Sleep Comments: Up for a snack Meal Information Percent Meal Consumed - Breakfast: 100 Percent Meal Consumed - Lunch: 100 Percent Meal Consumed - Dinner: 100 Nutrition Comment: Initially refused but later ate supper Subjective Subjective The patient was seen and assessed and interval progress reviewed in a multidisciplinary team meeting with the treatment team. For details, see the "Im pression" section. Overall I spent a total of 20 minutes for this inpatient follow-up including review of chart records, direct evaluation of the patient [id number], medication education with the patient, risk assessment, discussion during interdisciplinary treatment rounds, and documentation in the electronic health record. Physical Exam Psychiatric Orientation: alert, oriented to person, oriented to place, oriented to time and cooperative Apperance: appropriately dressed and appropriately groomed Eye Contact: good eye contact Motor Behavior: no abnormal motor movements Speech: normal rate/rhythm/volume of speech Affect: euthymic affect and mood congruent with affect; no depressed affect Mood: no depressed mood Thought Process: clear/coherent thought process and + concrete thought process Thought Content: reality based without delusions and + thought broadcasting Suicidal Thoughts: denies suicidal thoughts, denies suicidal plan and denies suicidal intent Homicidal Thoughts: denies homicidal thoughts Hallucinations: + auditory hallucinations (intermittent) and + visual hallucinations (intermittently seeing people in trenchcoats, falling into a garden) Cognition: recent memory grossly intact, remote memory grossly intact, attention grossly intact and language grossly intact Estimated Intelligence: average estimated intelligence and consistent with education level Insight: + limited insight Judgment: + limited judgement Vital Signs (Past 24 Hours) Last Vital Signs Temp 36.0 C L 05/13/23 06:43 Pulse 81 05/13/23 06:44 Resp 20 05/13/23 06:43 BP 110/70 05/13/23 06:44 Pulse Ox 97 05/13/23 06:43 O2 Del Method Room Air 05/13/23 06:43 Results & Data (U) Current Inpatient Medications Current Inpatient Medications: Current Inpatient Medications Al Hydrox/Mg Hydrox/Simethicone (Aluminum/Magnesium Susp 30 Ml Udc) 30 ml PO Q4H PRN PRN Reason: GI Upset Stop: 06/09/23 05:14 Chlorpromazine HCl (Chlorpromazine Hcl 25 Mg Tab) 50 mg PO [id number] JOSEMANUEL Stop: 05/22/23 06:59 Last Admin: 05/13/23 06:30 Dose: 50 mg Chlorpromazine HCl (Chlorpromazine Hcl 25 Mg Tab) 50 mg PO Q6 PRN PRN Reason: psychosis Stop: 05/31/23 18:21 Last Admin: 05/09/23 18:44 Dose: 50 mg Chlorpromazine HCl (Chlorpromazine Hcl 100 Mg Tab) 300 mg PO DAILY@2030 JOSEMANUEL Stop: 05/26/23 20:29 Last Admin: 05/12/23 21:05 Dose: 300 mg Docusate Sodium (Docusate Sodium 100 Mg Cap) 200 mg PO HS JOSEMANUEL Stop: 05/31/23 21:59 Last Admin: 05/12/23 21:07 Dose: 200 mg Hydroxyzine HCl (Hydroxyzine Hcl 25 Mg Tab) 25 mg PO Q4H PRN PRN Reason: Anxiety Stop: 06/09/23 05:09 Last Admin: 05/13/23 04:08 Dose: 25 mg Hydroxyzine HCl (Hydroxyzine Hcl 25 Mg Tab) 50 mg PO HSZ PRN PRN Reason: Insomnia Stop: 06/09/23 05:11 Magnesium Hydroxide (Magnesium Hydroxide Susp 30 Ml Udc) 30 ml PO DAILY PRN PRN Reason: Constipation Stop: 06/09/23 05:15 Miscellaneous (Pending Order) 1 each N/A Q30D@0900 [facility] Stop: 11/29/23 08:59 Perphenazine (Perphenazine 2 Mg Tablet) 8 mg PO BID JOSEMANUEL Stop: 06/03/23 20:59 Last Admin: 05/13/23 09:13 Dose: 8 mg Venlafaxine HCl (Venlafaxine Hcl Xr 150 Mg Capxr) 150 mg PO QAM JOSEMANUEL Stop: 06/09/23 08:59 Last Admin: 05/13/23 09:13 Dose: 150 mg Mental Health & Subst Abuse Tx Psychiatrist Name of Psychiatrist: Dr. Umberto Aviles Psychiatrist's Psychiatric Appointment Comment: Telehealth Therapist Name of Therapist: Chary Velasquez Therapist's Therapy Appointment Comment: [address] [place] [address] [address], [place] [address] Post Discharge Appointments Primary Care Physician Name Of Family Doctor/PCP: You Brooks
[2023-05-13] MEDS: chlorproMAZINE HCL 25 MG TAB PO PRN (19:00)
[2023-05-13] MEDS: DOCUSATE SODIUM 100 MG CAP PO SCH (20:46)
[2023-05-14] MEDS: chlorproMAZINE HCL 25 MG TAB PO SCH ×2 (06:36→13:31)
[2023-05-14] MEDS: PERPHENAZINE 2 MG TAB PO SCH ×2 (09:02→20:24)
[2023-05-14] MEDS: VENLAFAXINE HCL XR 150 MG CAPXR PO SCH (09:02)
--- NOTE | 2023-05-14 09:02 | Psychiatric Progress Note ---
Date of Service May 14, 2023 Impression / Recommendations Impression 52 yo man with schizophrenia with multiple recent psychiatric hospitalizations after each has eloped from his longterm. On 304 commitment and accepted to [facility]. No current bed date. [facility] due to psychosis and limited ability to tolerate peers and hx of aggression with delusions 05/14/2023: Says he's "doing pretty good" and reports that chronic hallucinations are below baseline level and not bothering him. Reports no adverse medication effects. Asks about going for a walk with staff (to which he's entitled per policy contingent on staff availability). 05/13/2023: Reports that he's "doing good" with "not much of hallucinations". Again voices apprehension about whether I will change his regimen of 3 antipsychotics. Denies any side effects. 05/12/2023: Says that he's "having another really good day" thus far today. He reports minimal hallucinations, saying "I don't really notice them that much if I don't think about them". Asks "you're not going to change the medication, are you?", expressing awareness of our several previous discussions about the strong recommendation in general to avoid multiple antipsychotic medications. 05/11/2023: Pt reports he's "having another good day" with minimal hallucinations. Accurately anticipates that I'll want to discuss his being on 3 antipsychotics, 2 of them phenothiazines, with a goal of formulating a plan to transition to either chlorpromazine alone or perphenazine alone, but not both. He says he feels as if he's doing very well and is fearful of relapse. He and I have already concluded that available evidence strongly supports that, for some reason, he has never done well on monotherapy with anything and has done best when on both haloperidol and chlorpromazine (the only phenothiazine he appears to have taken in the past). 05/10/2023: Reports "feeling a lot better today" and reports "the hallucinations are back under control". Discussed that this improved with no change in medication, repeating my opinion that medication changes are best avoided unless necessary but that use of 4 antipsychotics is deprecated. Pt emphasizes that he's very happy with how he's doing right now and really doesn't want to change the regimen. 05/09/2023: Reports "having a bad day" with more prominent, distressing visual hallucinations of "dark" figures experienced as nefarious and threatening. I'm very loath to change antipsychotic regimen right now given history of worsened psychosis with most medication changes. A record review undertaken by RN reveals a fairly strong pattern of 2-3 day periods of worsened psychosis every 2-3 weeks seemingly unrelated to whether antipsychotic regimen is changed or not. I note that venlafaxine dose is unusually low and suspect that anxiety would respond to dose more in the usual therapeutic range of ~225 mg/day. 05/08/2023: Reports "feeling OK" today, with "just little hallucinations now and then". However, there have been multiple medication changes since I last saw him 3 weeks ago and he's not on perphenazine in addition to chlorpromazine and depot haloperidol. Oral haloperidol has finally been eliminated. He says he's tolerating this regimen well. He tells me he doesn't think he's taken perphenazine ("Trilafon") before. His current chlorpromazine dose totalling 400 mg/day remains low compared to typical monotherapy doses in the 600 to 800 mg/day range but there's been a sense that it might have caused hypotension (not currently seen) in the past. Since perphenazine is, like chlorpromazine, a phenothiazine (albeit of medium rather than low potency), selecting one would appear prudent. By history as related by pt and reflected in the record, pt has done best when on both haloperidol and chlorpromazine in the past and has failed numerous trial of alternate agents. However, there's also a strong correlation between medication changes and symptoms exacerbation so I'm loath to change the phenothiazines just out of preference to minimize antipsychotics since he's currently doing well. I'll attempt to determine whether he's been documented as having taken perphenazine before. 05/07/23: Mood remains stable today, ongoing lessening of hallucination intensity since introduction of Trilafon. Tolerating Trilafon and other psychiatric medications without any side effects. Awaiting [facility] hospital placement (1) Schizophrenia: (2) Paranoid: Plan 05/14/2023: * continue perphenazine 8 mg BID (see notes in Impression re: use of 3 antipsychotics) - started on 05/04/2023 * continue chlorpromazine 50 mg QAM, 50 mg midday, and 300 mg QHS - increased 04/26/2023 from 50 mg BID & 100 mg QHS * continue venlafaxine ER 150 mg daily - increased 05/09/2023 to 150 mg, started 03/28/2023 at 75 mg * continue haloperidol decanoate total of 400 mg HAYES over two days - received on 05/04/2023 and 05/05/2023 * [facility] bed (he's on the wait list) 05/13/2023: * continue perphenazine 8 mg BID (see notes in Impression re: use of 3 antipsychotics) - started on 05/04/2023 * continue chlorpromazine 50 mg QAM, 50 mg midday, and 300 mg QHS - increased 04/26/2023 from 50 mg BID & 100 mg QHS * continue venlafaxine ER 150 mg daily - increased 05/09/2023 to 150 mg, started 03/28/2023 at 75 mg * continue haloperidol decanoate total of 400 mg HAYES over two days - received on 05/04/2023 and 05/05/2023 * [facility] bed (he's on the wait list) 05/12/2023: * continue perphenazine 8 mg BID (see notes in Impression re: use of 3 antipsychotics) - started on 05/04/2023 * continue chlorpromazine 50 mg QAM, 50 mg midday, and 300 mg QHS - increased 04/26/2023 from 50 mg BID & 100 mg QHS * continue venlafaxine ER 150 mg daily - increased 05/09/2023 to 150 mg, started 03/28/2023 at 75 mg * continue haloperidol decanoate total of 400 mg HAYES over two days - received on 05/04/2023 and 05/05/2023 * [facility] bed (he's on the wait list) 05/11/2023: * continue perphenazine 8 mg BID (see notes in Impression re: use of 3 ant ipsychotics) - started on 05/04/2023 * continue chlorpromazine 50 mg QAM, 50 mg midday, and 300 mg QHS - increased 04/26/2023 from 50 mg BID & 100 mg QHS * continue venlafaxine ER 150 mg daily - increased 05/09/2023 to 150 mg, started 03/28/2023 at 75 mg * continue haloperidol decanoate total of 400 mg HAYES over two days - received on 05/04/2023 and 05/05/2023 05/10/2023: * continue perphenazine 8 mg BID for now despite concern about use of 2 phenothiazines and 3 total antipsychotics - started on 05/04/2023 * continue chlorpromazine 50 mg QAM, 50 mg midday, and 300 mg QHS - increased 04/26/2023 from 50 mg BID & 100 mg QHS * continue venlafaxine ER 150 mg daily - increased 05/09/2023 to 150 mg, started 03/28/2023 at 75 mg * continue haloperidol decanoate total of 400 mg HAYES over two days - received on 05/04/2023 and 05/05/2023 05/09/2023: * continue perphenazine 8 mg BID for now despite concern about use of 2 phenothiazines and 3 total antipsychotics - started on 05/04/2023 * continue chlorpromazine 50 mg QAM, 50 mg midday, and 300 mg QHS - increased 04/26/2023 from 50 mg BID & 100 mg QHS * increase venlafaxine ER 75 mg daily - started 03/28/2023 * continue haloperidol decanoate total of 400 mg HAYES over two days - received on 05/04/2023 and 05/05/2023 05/08/2023: * continue perphenazine 8 mg BID, though I'm fairly concerned about the use of 2 phenothiazines and 3 total antipsychotics - started on 05/04/2023 * continue chlorpromazine 50 mg QAM, 50 mg midday, and 300 mg QHS - increased 04/26/2023 from 50 mg BID & 100 mg QHS * continue venlafaxine ER 75 mg daily - started 03/28/2023 * continue haloperidol decanoate total of 400mg HAYES over two days; 200 mg HAYES - received on 05/04/2023 and 05/05/2023 05/07/2023: * Trilafon 8mg BID po --started on 05/04/2023 * Continue thorazine 50mg qAM, 50mg qafternoon and 300mg HS --increased on 04/26/2023 * continue venlafaxine ER 75 mg daily - started 03/28/2023 * continue haloperidol decanoate total of 400mg HAYES over two days; 200 mg HAYES - received on 05/04/2023 and 05/05/2023 05/06/2023: * Trilafon 8mg BID po --started on 05/04/2023 * Continue thorazine 50mg qAM, 50mg qafternoon and 300mg HS --increased on 04/26/2023 * continue venlafaxine ER 75 mg daily - started 03/28/2023 * continue haloperidol decanoate total of 400mg HAYES over two days; 200 mg HAYES - received on 05/04/2023 and 05/05/2023 05/05/2023: * Trilafon 8mg BID po --started on 05/04/2023 * Continue thorazine 50mg qAM, 50mg qafternoon and 300mg HS --increased on 04/26/2023 * continue venlafaxine ER 75 mg daily - started 03/28/2023 * continue haloperidol decanoate total of 400mg HAYES over two days; 200 mg HAYES - received on 05/04/2023 and 05/05/2023 05/02/2023: * Discontinue haldol po * Start risperidone 1mg BID with 0.5mg BID prn for hallucinations * Continue thorazine 50mg qAM, 50mg qafternoon and 300mg HS --increased on 04/26/2023 * continue venlafaxine ER 75 mg daily - started 03/28/2023 * continue haloperidol decanoate total of 400mg HAYES over two days; 200 mg HAYES - received on 04/03/2023 and additional 200mg HAYES - received on 04/05/2023; likely will hold off on next dose pending risperidone trial 04/28/2023: continue current meds and tx plan, discussed Depakote augmentation if fails to make steady improvement. 04/27/2023: slow rate of Haldol taper--resume 10 mg BID meals and monitor BP on higher dose of thorazine. If symptoms persist, he may be agreeable to trial of clozaril in place of thorazine and/or depakote. Still a week out from Haldol dec. 04/26/2023: titrate hs thorazine, continue Haldol taper (oral, patient received dec) due on or before 05/05/23. 04/25/2023: d/c hs Haldol in favor of increase in thorazine to 200 mg hs. monitor for orthostasis 04/23/2023: * Chlorpromazine 50mg qAM and 50mg qafternoon and 100mg HS - increased 04/21/2023 from 50mg HS to 100mg HS * continue haloperidol decanoate total of 400mg HAYES over two days; 200 mg HAYES - received on 04/03/2023 and additional 200mg HAYES - received on 04/05/2023 * increase haloperidol po back to 10mg TID - reduced to 5 TID on 04/21/2023 with worsening hallucinations, previously reduced to 10mg TID dose on 04/02/2023 when decanoate was started * continue venlafaxine ER 75 mg daily - started 03/28/2023 04/21/2023: * Chlorpromazine 50mg qAM and 50mg qafternoon and 100mg HS - increased 04/21/2023 from 50mg HS to 100mg HS * continue haloperidol decanoate total of 400mg HAYES over two days; 200 mg HAYES - received on 04/03/2023 and additional 200mg HAYES - received on 04/05/2023 * decrease haloperidol po to 5 mg TID - reduced from 10 mg TID, previously reduced to 10mg TID dose on 04/02/2023 when decanoate was started * continue venlafaxine ER 75 mg daily - started 03/28/2023 04/17/2023: * continue chlropromazine 50mg TID - increased 04/13/2023 from 25 mg BID & 50 mg QHS * continue haloperidol decanoate total of 400mg HAYES over two days; 200 mg HAYES - received on 04/03/2023 and additional 200mg HAYES - received on 04/05/2023 * continue haloperidol 10 mg TID - reduced to this dose on 04/02/2023 when decanoate was started * continue venlafaxine ER 75 mg daily - started 03/28/2023 04/16/2023: * continue chlropromazine 50mg TID - increased 04/13/2023 from 25 mg BID & 50 mg QHS * continue haloperidol decanoate 200 mg HAYES - received on 04/03/2023 * continue haloperidol 10 mg TID - reduced to this dose on 04/02/2023 when decanoate was started * continue venlafaxine ER 75 mg daily - started 03/28/2023 04/15/2023: * continue chlropromazine 50mg TID - increased 04/13/2023 from 25 mg BID & 50 mg QHS * continue haloperidol decanoate 200 mg HAYES - received on 04/03/2023 * continue haloperidol 10 mg TID - reduced to this dose on 04/02/2023 when decanoate was started * continue venlafaxine ER 75 mg daily - started 03/28/2023 04/14/2023: * continue chlropromazine 50mg TID - increased 04/13/2023 from 25 mg BID & 50 mg QHS * continue haloperidol decanoate 200 mg HAYES - received on 04/03/2023 * continue haloperidol 10 mg TID - reduced to this dose on 04/02/2023 when decanoate was started * continue venlafaxine ER 75 mg daily - started 03/28/2023 04/13/2023: * continue chlropromazine 25 mg QAM, 25 mg QPM, 50mg QHS - adjusted to this schedule on 04/02/2023 * continue haloperidol decanoate 200 mg HAYES - received on 04/03/2023 * continue haloperidol 10 mg TID - reduced to this dose on 04/02/2023 when decanoate was started * continue venlafaxine ER 75 mg daily - started 03/28/2023 04/12/2023: * continue chlropromazine 25 mg QAM, 25 mg QPM, 50mg QHS - adjusted to this schedule on 04/02/2023 * continue haloperidol decanoate 200 mg HAYES - received on 04/03/2023 * continue haloperidol 10 mg TID - reduced to this dose on 04/02/2023 when decanoate was started * continue venlafaxine ER 75 mg daily - started 03/28/2023 04/11/2023: * continue chlropromazine 25 mg QAM, 25 mg QPM, 50mg QHS - adjusted to this schedule on 04/02/2023 * continue haloperidol decanoate 200 mg HAYES - received on 04/03/2023 * continue haloperidol 10 mg TID - reduced to this dose on 04/02/2023 when decanoate was started * continue venlafaxine ER 75 mg daily - started 03/28/2023 04/10/2023: * continue chlropromazine 25 mg QAM, 25 mg QPM, 50mg QHS - adjusted to this schedule on 04/02/2023 * continue haloperidol decanoate 200 mg HAYES - received on 04/03/2023 * continue haloperidol 10 mg TID - reduced to this dose on 04/02/2023 when decanoate was started * continue venlafaxine ER 75 mg daily - started 03/28/2023 04/05/2023: Additional Haldol decanoate 200mg HAYES, continue po thorazine and po haldol 04/04/2023: Continue current medications and tx plan. Consider additional dose of haldol decanoate 100-200mg HAYES tomorrow. 04/03/2023: * thorazine 25mg qAM, 25mg qdinner, 50mg HS * haldol decanoate 200mg HAYES-- received on 04/03/2023 * haldol po 10mg TID * Effexor ER 75mg daily 04/02/2023: thorazine 25 mg am and pm meal, 50 mg hs with additional 25 mg prn. Patient now agreeable to Haldol dec. Will decrease to 10 mg TID as interval increase of midday dose to 20 mg has not helped with pm breakthrough. Will load 200 mg dose today with additional 100-200 mg loading and PO Haldol taper per Dr. Smith. 04/01/2023: ortho cleared patient, he can discontinue boot at his own comfort, his residual foot deformity does not require surgery 03/28/2023: diversion meeting outcome is all community resources have been exhausted and patient will remain referred to [facility] hospital. repeat foot x ray tomorrow. Patient desires d/c trazodone. completed quality case review with [facility] peer to peer Dr. Jimenez discussing that patient has repeatedly refused clozaril and HAYES and prefers thorazine/haldol component, current doses are best for his BP. Discussed rationale for low dose Effexor XR. Patient has become agitated/disinhibited on higher doses of antidepressants in past so I would not titrate. 03/25/2023: * Consolidate thorazine to 75mg HS * Continue haldol 10mg qAM, 20mg miday and 10mg HS 03/22/2023: * increase haloperidol to 10 mg qAM, 20mg midday and 10mg HS- started this schedule 03/22/2023 * consolidate chlorpromazine to 25mg qAM and 50mg HS 03/21/2023: * continue haloperidol 10 mg TID - started this schedule 03/03/2023 * consolidate chlorpromazine to 25mg qAM and 50mg HS 03/20/2023: * continue haloperidol 10 mg TID - started this schedule 03/03/2023 * continue chlorpromazine 25 mg TID - resumed 03/17/2023 * change cogentin from HS scheduled to HS prn use for muscle stiffness to reduce polypharmacy 03/18/2023: * continue haloperidol 10 mg TID - started this schedule 03/03/2023 * continue chlorpromazine 25 mg TID - resumed 03/17/2023 * was committed for extended treatment at 304 hearing today, plan to pursue [facility] hospital transfer 03/17/2023: * continue haloperidol 10 mg TID - started this schedule 03/03/2023 * increase chlorpromazine to 25 mg TID * probable 304 hearing on February 03/07/2023: Start trazodone 100mg HS po. Continue haldol 10mg TID po 03/03/2023: unable to resume thorazine, offered to try splitting Haldol to TID to see if any improvement in orthostasis. 03/02/2023: The patient was admitted to the [facility] ([facility] inpatient mental health unit) on q15 min checks (behavioral with suicide precautions) for safety. The patient will participate in group, recreational, and milieu therapies and will be offered additional individual and family sessions as clinically appropriate. Continue to hold thorazine and monitor BP. Inventory Assets Strengths: taking PO meds, cooperative with tx plan Needs: longer term hospitalization, medical monitoring Suicide Risk Level Suicide Risk Level: Moderate (q15 min suicide checks) Suicide Risk Level Comments: The patient remains at moderate risk, primarily because of his persistent intermittent persecutory auditory hallucinations. He again reiterates that he is not experiencing suicidal thoughts, does not have any suicidal intent, and has no plan for suicide. He denies any command AH. He also convincingly assures us that he will notify staff if thoughts of self-harm emerge and has been consistently seeking out staff support when he feels overwhelmed by hallucinations. Risk Factors Assessment Male: Yes : Yes Do You Have Access To A Gun?: No Mental Health Diagnoses: Yes Previous Attempt: Yes Previous Psychiatric Hospitalization: Yes Protective Factors Assessment Employed: No Interval History Identifying Information UMBERTO DAMIAN is a 52-year-old man who lives in a [place] psychiatric longterm with a history of schizophrenia, who eloped after returning to his longterm and was found by police wandering with concern for dehydration due to hot temperatures/humidity. He is on a 304 commitment as of 03/18/2023. Chief Complaint "Pretty good". Review of Systems Sleep Information Total Hours of Sleep: 7.5 Sleep Comments: Up for a snack Meal Information Percent Meal Consumed - Breakfast: 100 Percent Meal Consumed - Lunch: 100 Percent Meal Consumed - Dinner: 100 Nutrition Comment: Initially refused but later ate supper Subjective Subjective The patient was seen and assessed and interval progress reviewed in a multidisciplinary team meeting with the treatment team. For details, see the "Impression" section. Overall I spent a total of 20 minutes for this inpatient follow-up including review of chart records, direct evaluation of the patient [id number], counseling the patient, medication education with the patient, risk assessment, discussion during interdisciplinary treatment rounds, and documentation in the electronic health record. Physical Exam Psychiatric Orientation: alert, oriented to person, oriented to place, oriented to time and cooperative Apperance: appropriately dressed and appropriately groomed Eye Contact: good eye contact Motor Behavior: no abnormal motor movements Speech: normal rate/rhythm/volume of speech Affect: euthymic affect and mood congruent with affect; no depressed affect Mood: no depressed mood Thought Process: clear/coherent thought process and + concrete thought process Thought Content: reality based without delusions and + thought broadcasting Suicidal Thoughts: denies suicidal thoughts, denies suicidal plan and denies suicidal intent Homicidal Thoughts: denies homicidal thoughts Hallucinations: + auditory hallucinations (intermittent) and + visual hallucinations (intermittently seeing people in trenchcoats, falling into a garden) Cognition: recent memory grossly intact, remote memory grossly intact, attention grossly intact and language grossly intact Estimated Intelligence: average estimated intelligence and consistent with education level Insight: + limited insight Judgment: + limited judgement Vital Signs (Past 24 Hours) Last Vital Signs Temp 36.4 C L 05/14/23 06:47 Pulse 92 H 05/14/23 06:48 Resp 16 05/14/23 06:47 BP 115/77 05/14/23 06:48 Pulse Ox 97 05/13/23 06:43 O2 Del Method Room Air 05/13/23 06:43 Results & Data ([facility]) Current Inpatient Medications Current Inpatient Medications: Current Inpatient Medications Al Hydrox/Mg Hydrox/Simethicone (Aluminum/Magnesium Susp 30 Ml Udc) 30 ml PO Q4H PRN PRN Reason: GI Upset Stop: 06/09/23 05:14 Chlorpromazine HCl (Chlorpromazine Hcl 25 Mg Tab) 50 mg PO [id number] [facility] Stop: 05/22/23 06:59 Last Admin: 05/14/23 06:36 Dose: 50 mg Chlorpromazine HCl (Chlorpromazine Hcl 25 Mg Tab) 50 mg PO Q6 PRN PRN Reason: psychosis Stop: 05/31/23 18:21 Last Admin: 05/13/23 19:00 Dose: 50 mg Chlorpromazine HCl (Chlorpromazine Hcl 100 Mg Tab) 300 mg PO DAILY@2030 JOSEMANUEL Stop: 05/26/23 20:29 Last Admin: 05/13/23 20:48 Dose: 300 mg Docusate Sodium (Docusate Sodium 100 Mg Cap) 200 mg PO HS JOSEMANUEL Stop: 05/31/23 21:59 Last Admin: 05/13/23 20:46 Dose: 200 mg Hydroxyzine HCl (Hydroxyzine Hcl 25 Mg Tab) 25 mg PO Q4H PRN PRN Reason: Anxiety Stop: 06/09/23 05:09 Last Admin: 05/13/23 04:08 Dose: 25 mg Hydroxyzine HCl (Hydroxyzine Hcl 25 Mg Tab) 50 mg PO HSZ PRN PRN Reason: Insomnia Stop: 06/09/23 05:11 Magnesium Hydroxide (Magnesium Hydroxide Susp 30 Ml Udc) 30 ml PO DAILY PRN PRN Reason: Constipation Stop: 06/09/23 05:15 Miscellaneous (Pending Order) 1 each N/A Q30D@0900 [facility] Stop: 11/29/23 08:59 Perphenazine (Perphenazine 2 Mg Tablet) 8 mg PO BID JOSEMANUEL Stop: 06/03/23 20:59 Last Admin: 05/13/23 20:47 Dose: 8 mg Venlafaxine HCl (Venlafaxine Hcl Xr 150 Mg Capxr) 150 mg PO QAM JOSEMANUEL Stop: 06/09/23 08:59 Last Admin: 05/13/23 09:13 Dose: 150 mg Mental Health & Subst Abuse Tx Psychiatrist Name of Psychiatrist: Dr. Umberto Aviles Psychiatrist's Psychiatric Appointment Comment: Telehealth Therapist Name of Therapist: Chary Velasquez Therapist's Therapy Appointment Comment: [address] [place] [address] [address], [place] [address] Post Discharge Appointments Primary Care Physician Name Of Family Doctor/PCP: You Brooks
[2023-05-14] MEDS: chlorproMAZINE HCL 25 MG TAB PO PRN ×3 (15:44→23:04)
[2023-05-14] MEDS: DOCUSATE SODIUM 100 MG CAP PO SCH (20:24)
[2023-05-14] MEDS: hydrOXYzine HCl 25 MG TAB PO PRN (21:11)
[2023-05-15] MEDS: hydrOXYzine HCl 25 MG TAB PO PRN (02:25)
[2023-05-15] MEDS: chlorproMAZINE HCL 25 MG TAB PO SCH ×2 (06:29→13:18)
[2023-05-15] MEDS: PERPHENAZINE 2 MG TAB PO SCH ×2 (08:29→20:49)
[2023-05-15] MEDS: VENLAFAXINE HCL XR 150 MG CAPXR PO SCH (08:29)
--- NOTE | 2023-05-15 08:42 | Psychiatric Progress Note ---
Date of Service May 15, 2023 Impression / Recommendations Impression 52 yo man with schizophrenia with multiple recent psychiatric hospitalizations after each has eloped from his [place]. On 304 commitment and accepted to [facility]. No current bed date. [facility]PR due to psychosis and limited ability to tolerate peers and hx of aggression with delusions 05/15/2023: Pt became apprehensive yesterday about the increase in venlafaxine XR from 75 mg to 150 mg 3 days previously (ordered 05/09/2023, first increased dose 05/10/2023). He didn't actually report any adverse effect at all, but seemed to take this as an indication that he was doing worse. Reminded him that we'd previously discussed that the 75 mg dose is quite low and that doses of 225 mg and higher are usually required for optimal effect, especially for anxiety. Yesterday evening pt requested "more Trilafon" shortly after getting PRN chlorpromazine. Has frequently requested chlorpromazine today. When I ask reason for this, pt says he feels as if he needs more medication, but denies any new or worse symptoms, including any worsening in psychosis. My sense is that his anxieties about ensuring his treatment is adequate are being exacerbated because every other patient currently admitted is very anxious and all have obsessive- compulsive symptoms centering around medication. 05/14/2023: Says he's "doing pretty good" and reports that chronic hallucinations are below baseline level and not bothering him. Reports no adverse medication effects. Asks about going for a walk with staff (to which he's entitled per policy contingent on staff availability). 05/13/2023: Reports that he's "doing good" with "not much of hallucinations". Again voices apprehension about whether I will change his regimen of 3 antipsychotics. Denies any side effects. 05/12/2023: Says that he's "having another really good day" thus far today. He reports minimal hallucinations, saying "I don't really notice them that much if I don't think about them". Asks "you're not going to change the medication, are you?", expressing awareness of our several previous discussions about the strong recommendation in general to avoid multiple antipsychotic medications. 05/11/2023: Pt reports he's "having another good day" with minimal hallucinations. Accurately anticipates that I'll want to discuss his being on 3 antipsychotics, 2 of them phenothiazines, with a goal of formulating a plan to transition to either chlorpromazine alone or perphenazine alone, but not both. He says he feels as if he's doing very well and is fearful of relapse. He and I have already concluded that available evidence strongly supports that, for some reason, he has never done well on monotherapy with anything and has done best when on both haloperidol and chlorpromazine (the only phenothiazine he appears to have taken in the past). 05/10/2023: Reports "feeling a lot better today" and reports "the hallucinations are back under control". Discussed that this improved with no change in medication, repeating my opinion that medication changes are best avoided unless necessary but that use of 4 antipsychotics is deprecated. Pt emphasizes that he's very happy with how he's doing right now and really doesn't want to change the regimen. 05/09/2023: Reports "having a bad day" with more prominent, distressing visual hallucinations of "dark" figures experienced as nefarious and threatening. I'm very loath to change antipsychotic regimen right now given history of worsened psychosis with most medication changes. A record review undertaken by RN reveals a fairly strong pattern of 2-3 day periods of worsened psychosis every 2-3 weeks seemingly unrelated to whether antipsychotic regimen is changed or not. I note that venlafaxine dose is unusually low and suspect that anxiety would respond to dose more in the usual therapeutic range of ~225 mg/day. 05/08/2023: Reports "feeling OK" today, with "just little hallucinations now and then". However, there have been multiple medication changes since I last saw him 3 weeks ago and he's not on perphenazine in addition to chlorpromazine and depot haloperidol. Oral haloperidol has finally been eliminated. He says he's tolerating this regimen well. He tells me he doesn't think he's taken perph enazine ("Trilafon") before. His current chlorpromazine dose totalling 400 mg/day remains low compared to typical monotherapy doses in the 600 to 800 mg/day range but there's been a sense that it might have caused hypotension (not currently seen) in the past. Since perphenazine is, like chlorpromazine, a phenothiazine (albeit of medium rather than low potency), selecting one would appear prudent. By history as related by pt and reflected in the record, pt has done best when on both haloperidol and chlorpromazine in the past and has failed numerous trial of alternate agents. However, there's also a strong correlation between medication changes and symptoms exacerbation so I'm loath to change the phenothiazines just out of preference to minimize antipsychotics since he's currently doing well. I'll attempt to determine whether he's been documented as having taken perphenazine before. 05/07/23: Mood remains stable today, ongoing lessening of hallucination intensity since introduction of Trilafon. Tolerating Trilafon and other psychiatric medications without any side effects. [facility] (1) Schizophrenia: (2) Paranoid: Plan 05/15/2023: * continue perphenazine 8 mg BID (see notes in Impression re: use of 3 antipsychotics) - started on 05/04/2023 * continue chlorpromazine 50 mg QAM, 50 mg midday, and 300 mg QHS - increased 04/26/2023 from 50 mg BID & 100 mg QHS * continue venlafaxine ER 150 mg daily - increased 05/09/2023 to 150 mg, started 03/28/2023 at 75 mg * continue haloperidol decanoate total of 400 mg HAYES over two days - received on 05/04/2023 and 05/05/2023 * await [facility] bed (he's on the wait list) 05/14/2023: * continue perphenazine 8 mg BID (see notes in Impression re: use of 3 antips ychotics) - started on 05/04/2023 * continue chlorpromazine 50 mg QAM, 50 mg midday, and 300 mg QHS - increased 04/26/2023 from 50 mg BID & 100 mg QHS * continue venlafaxine ER 150 mg daily - increased 05/09/2023 to 150 mg, started 03/28/2023 at 75 mg * continue haloperidol decanoate total of 400 mg HAYES over two days - received on 05/04/2023 and 05/05/2023 * await [facility] hospital bed (he's on the wait list) 05/13/2023: * continue perphenazine 8 mg BID (see notes in Impression re: use of 3 antipsychotics) - started on 05/04/2023 * continue chlorpromazine 50 mg QAM, 50 mg midday, and 300 mg QHS - increased 04/26/2023 from 50 mg BID & 100 mg QHS * continue venlafaxine ER 150 mg daily - increased 05/09/2023 to 150 mg, started 03/28/2023 at 75 mg * continue haloperidol decanoate total of 400 mg HAYES over two days - received on 05/04/2023 and 05/05/2023 * await [facility] bed (he's on the wait list) 05/12/2023: * continue perphenazine 8 mg BID (see notes in Impression re: use of 3 antipsychotics) - started on 05/04/2023 * continue chlorpromazine 50 mg QAM, 50 mg midday, and 300 mg QHS - increased 04/26/2023 from 50 mg BID & 100 mg QHS * continue venlafaxine ER 150 mg daily - increased 05/09/2023 to 150 mg, started 03/28/2023 at 75 mg * continue haloperidol decanoate total of 400 mg HAYES over two days - received on 05/04/2023 and 05/05/2023 * [facility] bed (he's on the wait list) 05/11/2023: * continue perphenazine 8 mg BID (see notes in Impression re: use of 3 antipsychotics) - started on 05/04/2023 * continue chlorpromazine 50 mg QAM, 50 mg midday, and 300 mg QHS - increased 04/26/2023 from 50 mg BID & 100 mg QHS * continue venlafaxine ER 150 mg daily - increased 05/09/2023 to 150 mg, started 03/28/2023 at 75 mg * continue haloperidol decanoate total of 400 mg HAYES over two days - received on 05/04/2023 and 05/05/2023 05/10/2023: * continue perphenazine 8 mg BID for now despite concern about use of 2 phenothiazines and 3 total antipsychotics - started on 05/04/2023 * continue chlorpromazine 50 mg QAM, 50 mg midday, and 300 mg QHS - increased 04/26/2023 from 50 mg BID & 100 mg QHS * continue venlafaxine ER 150 mg daily - increased 05/09/2023 to 150 mg, started 03/28/2023 at 75 mg * continue haloperidol decanoate total of 400 mg HAYES over two days - received on 05/04/2023 and 05/05/2023 05/09/2023: * continue perphenazine 8 mg BID for now despite concern about use of 2 phenothiazines and 3 total antipsychotics - started on 05/04/2023 * continue chlorpromazine 50 mg QAM, 50 mg midday, and 300 mg QHS - increased 04/26/2023 from 50 mg BID & 100 mg QHS * increase venlafaxine ER 75 mg daily - started 03/28/2023 * continue haloperidol decanoate total of 400 mg HAYES over two days - received on 05/04/2023 and 05/05/2023 05/08/2023: * continue perphenazine 8 mg BID, though I'm fairly concerned about the use of 2 phenothiazines and 3 total antipsychotics - started on 05/04/2023 * continue chlorpromazine 50 mg QAM, 50 mg midday, and 300 mg QHS - increased 1 06/26/2022 from 50 mg BID & 100 mg QHS * continue venlafaxine ER 75 mg daily - started 03/28/2023 * continue haloperidol decanoate total of 400mg HAYES over two days; 200 mg HAYES - received on 05/04/2023 and 05/05/2023 05/07/2023: * Trilafon 8mg BID po --started on 05/04/2023 * Continue thorazine 50mg qAM, 50mg qafternoon and 300mg HS --increased on 04/26/2023 * continue venlafaxine ER 75 mg daily - started 03/28/2023 * continue haloperidol decanoate total of 400mg HAYES over two days; 200 mg HAYES - received on 05/04/2023 and 05/05/2023 05/06/2023: * Trilafon 8mg BID po --started on 05/04/2023 * Continue thorazine 50mg qAM, 50mg qafternoon and 300mg HS --increased on 04/26/2023 * continue venlafaxine ER 75 mg daily - started 03/28/2023 * continue haloperidol decanoate total of 400mg HAYES over two days; 200 mg HAYES - received on 05/04/2023 and 05/05/2023 05/05/2023: * Trilafon 8mg BID po --started on 05/04/2023 * Continue thorazine 50mg qAM, 50mg qafternoon and 300mg HS --increased on 04/26/2023 * continue venlafaxine ER 75 mg daily - started 03/28/2023 * continue haloperidol decanoate total of 400mg HAYES over two days; 200 mg HAYES - received on 05/04/2023 and 05/05/2023 05/02/2023: * Discontinue haldol po * Start risperidone 1mg BID with 0.5mg BID prn for hallucinations * Continue thorazine 50mg qAM, 50mg qafternoon and 300mg HS --increased on 04/26/2023 * continue venlafaxine ER 75 mg daily - started 03/28/2023 * continue haloperidol decanoate total of 400mg HAYES over two days; 200 mg HAYES - received on 04/03/2023 and additional 200mg HAYES - received on 04/05/2023; likely will hold off on next dose pending risperidone trial 04/28/2023: continue current meds and tx plan, discussed Depakote augmentation if fails to make steady improvement. 04/27/2023: slow rate of Haldol taper--resume 10 mg BID meals and monitor BP on higher dose of thorazine. If symptoms persist, he may be agreeable to trial of clozaril in place of thorazine and/or depakote. Still a week out from Haldol dec. 04/26/2023: titrate hs thorazine, continue Haldol taper (oral, patient received dec) due on or before 05/05/23. 04/25/2023: d/c hs Haldol in favor of increase in thorazine to 200 mg hs. monitor for orthostasis 04/23/2023: * Chlorpromazine 50mg qAM and 50mg qafternoon and 100mg HS - increased 04/21/2023 from 50mg HS to 100mg HS * continue haloperidol decanoate total of 400mg HAYES over two days; 200 mg HAYES - received on 04/03/2023 and additional 200mg HAYES - received on 04/05/2023 * increase haloperidol po back to 10mg TID - reduced to 5 TID on 04/21/2023 with worsening hallucinations, previously reduced to 10mg TID dose on 04/02/2023 when decanoate was started * continue venlafaxine ER 75 mg daily - started 03/28/2023 04/21/2023: * Chlorpromazine 50mg qAM and 50mg qafternoon and 100mg HS - increased 04/21/2023 from 50mg HS to 100mg HS * continue haloperidol decanoate total of 400mg HAYES over two days; 200 mg HAYES - received on 04/03/2023 and additional 200mg HAYES - received on 04/05/2023 * decrease haloperidol po to 5 mg TID - reduced from 10 mg TID, previously reduced to 10mg TID dose on 04/02/2023 when decanoate was started * continue venlafaxine ER 75 mg daily - started 03/28/2023 04/17/2023: * continue chlropromazine 50mg TID - increased 04/13/2023 from 25 mg BID & 50 mg QHS * continue haloperidol decanoate total of 400mg HAYES over two days; 200 mg HAYES - received on 04/03/2023 and additional 200mg HAYES - received on 04/05/2023 * continue haloperidol 10 mg TID - reduced to this dose on 04/02/2023 when decanoate was started * continue venlafaxine ER 75 mg daily - started 03/28/2023 04/16/2023: * continue chlropromazine 50mg TID - increased 04/13/2023 from 25 mg BID & 50 mg QHS * continue haloperidol decanoate 200 mg HAYES - received on 04/03/2023 * continue haloperidol 10 mg TID - reduced to this dose on 04/02/2023 when decanoate was started * continue venlafaxine ER 75 mg daily - started 03/28/2023 04/15/2023: * continue chlropromazine 50mg TID - increased 04/13/2023 from 25 mg BID & 50 mg QHS * continue haloperidol decanoate 200 mg HAYES - received on 04/03/2023 * continue haloperidol 10 mg TID - reduced to this dose on 04/02/2023 when decanoate was started * continue venlafaxine ER 75 mg daily - started 03/28/2023 04/14/2023: * continue chlropromazine 50mg TID - increased 04/13/2023 from 25 mg BID & 50 mg QHS * continue haloperidol decanoate 200 mg HAYES - received on 04/03/2023 * continue haloperidol 10 mg TID - reduced to this dose on 04/02/2023 when decanoate was started * continue venlafaxine ER 75 mg daily - started 03/28/2023 04/13/2023: * continue chlropromazine 25 mg QAM, 25 mg QPM, 50mg QHS - adjusted to this schedule on 04/02/2023 * continue haloperidol decanoate 200 mg HAYES - received on 04/03/2023 * continue haloperidol 10 mg TID - reduced to this dose on 04/02/2023 when decanoate was started * continue venlafaxine ER 75 mg daily - started 03/28/2023 04/12/2023: * continue chlropromazine 25 mg QAM, 25 mg QPM, 50mg QHS - adjusted to this schedule on 04/02/2023 * continue haloperidol decanoate 200 mg HAYES - received on 04/03/2023 * continue haloperidol 10 mg TID - reduced to this dose on 04/02/2023 when decanoate was started * continue venlafaxine ER 75 mg daily - started 03/28/2023 04/11/2023: * continue chlropromazine 25 mg QAM, 25 mg QPM, 50mg QHS - adjusted to this schedule on 04/02/2023 * continue haloperidol decanoate 200 mg HAYES - received on 04/03/2023 * continue haloperidol 10 mg TID - reduced to this dose on 04/02/2023 when decanoate was started * continue venlafaxine ER 75 mg daily - started 03/28/2023 04/10/2023: * continue chlropromazine 25 mg QAM, 25 mg QPM, 50mg QHS - adjusted to this schedule on 04/02/2023 * continue haloperidol decanoate 200 mg HAYES - received on 04/03/2023 * continue haloperidol 10 mg TID - reduced to this dose on 04/02/2023 when decanoate was started * continue venlafaxine ER 75 mg daily - started 03/28/2023 04/05/2023: Additional Haldol decanoate 200mg HAYES, continue po thorazine and po haldol 04/04/2023: Continue current medications and tx plan. Consider additional dose of haldol decanoate 100-200mg HAYES tomorrow. 04/03/2023: * thorazine 25mg qAM, 25mg qdinner, 50mg HS * haldol decanoate 200mg HAYES-- received on 04/03/2023 * haldol po 10mg TID * Effexor ER 75mg daily 04/02/2023: thorazine 25 mg am and pm meal, 50 mg hs with additional 25 mg prn. Patient now agreeable to Haldol dec. Will decrease to 10 mg TID as interval increase of midday dose to 20 mg has not helped with pm breakthrough. Will load 200 mg dose today with additional 100-200 mg loading and PO Haldol taper per Dr. Smith. 04/01/2023: ortho cleared patient, he can discontinue boot at his own comfort, his residual foot deformity does not require surgery 03/28/2023: diversion meeting outcome is all community resources have been exhausted and patient will remain referred to [facility]. repeat foot x ray tomorrow. Patient desires d/c trazodone. completed [facility] peer to peer Dr. Jimenez discussing that patient has repeatedly refused clozaril and HAYES and prefers thorazine/haldol component, current doses are best for his BP. Discussed rationale for low dose Effexor XR. Patient has become agit ated/disinhibited on higher doses of antidepressants in past so I would not titrate. 03/25/2023: * Consolidate thorazine to 75mg HS * Continue haldol 10mg qAM, 20mg miday and 10mg HS 03/22/2023: * increase haloperidol to 10 mg qAM, 20mg midday and 10mg HS- started this schedule 03/22/2023 * consolidate chlorpromazine to 25mg qAM and 50mg HS 03/21/2023: * continue haloperidol 10 mg TID - started this schedule 03/03/2023 * consolidate chlorpromazine to 25mg qAM and 50mg HS 03/20/2023: * continue haloperidol 10 mg TID - started this schedule 03/03/2023 * continue chlorpromazine 25 mg TID - resumed 03/17/2023 * change cogentin from HS scheduled to HS prn use for muscle stiffness to reduce polypharmacy 03/18/2023: * continue haloperidol 10 mg TID - started this schedule 03/03/2023 * continue chlorpromazine 25 mg TID - resumed 03/17/2023 * was committed for extended treatment at 304 hearing today, plan to pursue [facility] hospital transfer 03/17/2023: * continue haloperidol 10 mg TID - started this schedule 03/03/2023 * increase chlorpromazine to 25 mg TID * probable 304 hearing on February 03/07/2023: Start trazodone 100mg HS po. Continue haldol 10mg TID po 03/03/2023: unable to resume thorazine, offered to try splitting Haldol to TID to see if any improvement in orthostasis. 03/02/2023: The patient was admitted to the [facility] (major hospital inpatient mental health unit) on q15 min checks (behavioral with suicide precautions) for safety. The patient will participate in group, recreational, and milieu therapies and will be offered additional individual and family sessions as clinically appropriate. Continue to hold thorazine and monitor BP. Inventory Assets Strengths: taking PO meds, cooperative with tx plan Needs: longer term hospitalization, medical monitoring Suicide Risk Level Suicide Risk Level: Moderate (q15 min suicide checks) Suicide Risk Level Comments: The patient remains at moderate risk, primarily because of his persistent intermittent persecutory auditory hallucinations. He again reiterates that he is not experiencing suicidal thoughts, does not have any suicidal intent, and has no plan for suicide. He denies any command AH. He also convincingly assures us that he will notify staff if thoughts of self-harm emerge and has been consistently seeking out staff support when he feels overwhelmed by hallucinations. Risk Factors Assessment Male: Yes : Yes Do You Have Access To A Gun?: No Mental Health Diagnoses: Yes Previous Attempt: Yes Previous Psychiatric Hospitalization: Yes Protective Factors Assessment Employed: No Interval History Identifying Information UMBERTO DAMIAN is a 52-year-old man who lives in a [place] [facility] [place] [facility] with a history of schizophrenia, who eloped after returning to his [place] and was found by police wandering with concern for dehydration due to hot temperatures/humidity. He is on a 304 commitment as of 03/18/2023. Chief Complaint "I think I might need more medication". Review of Systems Sleep Information Total Hours of Sleep: 5.5 Sleep Comments: 50mg of PRN Vistaril around 0225 Meal Information Percent Meal Consumed - Breakfast: 100 Percent Meal Consumed - Lunch: 75 Percent Meal Consumed - Dinner: 100 Nutrition Comment: Initially refused but later ate supper Subjective Subjective The patient was seen and assessed and interval progress reviewed in a multidisciplinary team meeting with nursing and social work. For details, see the "Impression" section. Overall I spent a total of 37 minutes for this inpatient follow-up including review of chart records, direct evaluation of the patient [id number], counseling the patient, medication education with the patient, risk assessment, discussion during interdisciplinary treatment rounds, and documentation in the electronic health record. Physical Exam Psychiatric Orientation: alert, oriented to person, oriented to place, oriented to time and cooperative Apperance: appropriately dressed, appropriately groomed and + disheveled Eye Contact: good eye contact Motor Behavior: no abnormal motor movements Speech: normal rate/rhythm/volume of speech Affect: euthymic affect and mood congruent with affect; no depressed affect Mood: no depressed mood Thought Process: clear/coherent thought process and + concrete thought process Thought Content: reality based without delusions and + thought broadcasting Suicidal Thoughts: denies suicidal thoughts, denies suicidal plan and denies suicidal intent Homicidal Thoughts: denies homicidal thoughts Hallucinations: + auditory hallucinations (intermittent) and + visual fall ucinations (intermittently seeing people in trenchcoats, falling into a garden) Cognition: recent memory grossly intact, remote memory grossly intact, attention grossly intact and language grossly intact Estimated Intelligence: average estimated intelligence and consistent with education level Insight: + limited insight Judgment: + limited judgement Vital Signs (Past 24 Hours) Last Vital Signs Temp 36.8 C 05/15/23 06:54 Pulse 87 05/15/23 06:54 Resp 18 05/15/23 06:54 BP 94/63 L 05/15/23 06:54 Pulse Ox 95 05/15/23 06:54 O2 Del Method Room Air 05/15/23 06:54 Results & Data ([facility]) Current Inpatient Medications Current Inpatient Medications: Current Inpatient Medications Al Hydrox/Mg Hydrox/Simethicone (Aluminum/Magnesium Susp 30 Ml Udc) 30 ml PO Q4H PRN PRN Reason: GI Upset Stop: 06/09/23 05:14 Chlorpromazine HCl (Chlorpromazine Hcl 25 Mg Tab) 50 mg PO [id number] [facility] Stop: 05/22/23 06:59 Last Admin: 05/15/23 06:29 Dose: 50 mg Chlorpromazine HCl (Chlorpromazine Hcl 25 Mg Tab) 50 mg PO Q6 PRN PRN Reason: psychosis Stop: 05/31/23 18:21 Last Admin: 05/14/23 23:04 Dose: 50 mg Chlorpromazine HCl (Chlorpromazine Hcl 100 Mg Tab) 300 mg PO DAILY@2030 [facility] Stop: 05/26/23 20:29 Last Admin: 05/14/23 20:24 Dose: 300 mg Docusate Sodium (Docusate Sodium 100 Mg Cap) 200 mg PO HS JOSEMANUEL Stop: 05/31/23 21:59 Last Admin: 05/14/23 20:24 Dose: 200 mg Hydroxyzine HCl (Hydroxyzine Hcl 25 Mg Tab) 25 mg PO Q4H PRN PRN Reason: Anxiety Stop: 06/09/23 05:09 Last Admin: 05/13/23 04:08 Dose: 25 mg Hydroxyzine HCl (Hydroxyzine Hcl 25 Mg Tab) 50 mg PO HSZ PRN PRN Reason: Insomnia Stop: 06/09/23 05:11 Last Admin: 05/15/23 02:25 Dose: 50 mg Magnesium Hydroxide (Magnesium Hydroxide Susp 30 Ml Udc) 30 ml PO DAILY PRN PRN Reason: Constipation Stop: 06/09/23 05:15 Miscellaneous (Pending Order) 1 each N/A Q30D@0900 [facility] Stop: 11/29/23 08:59 Perphenazine (Perphenazine 2 Mg Tablet) 8 mg PO BID JOSEMANUEL Stop: 06/03/23 20:59 Last Admin: 05/15/23 08:29 Dose: 8 mg Venlafaxine HCl (Venlafaxine Hcl Xr 150 Mg Capxr) 150 mg PO QAM JOSEMANUEL Stop: 06/09/23 08:59 Last Admin: 05/15/23 08:29 Dose: 150 mg Mental Health & Subst Abuse Tx Psychiatrist Name of Psychiatrist: Dr. Umberto Aviles Psychiatrist's Psychiatric Appointment Comment: Telehealth Therapist Name of Therapist: Chary Velasquez Therapist's Therapy Appointment Comment: [address] [place] [address] [id number], [place] [address] Post Discharge Appointments Primary Care Physician Name Of Family Doctor/PCP: You Brooks
[2023-05-15] MEDS: DOCUSATE SODIUM 100 MG CAP PO SCH (20:49)
[2023-05-16] MEDS: hydrOXYzine HCl 25 MG TAB PO PRN (04:21)
[2023-05-16] MEDS: chlorproMAZINE HCL 25 MG TAB PO SCH ×2 (07:02→13:20)
[2023-05-16] MEDS: VENLAFAXINE HCL XR 150 MG CAPXR PO SCH (08:50)
[2023-05-16] MEDS: PERPHENAZINE 2 MG TAB PO SCH ×2 (08:50→20:45)
--- NOTE | 2023-05-16 14:39 | Psychiatric Progress Note ---
Date of Service May 16, 2023 Impression / Recommendations Impression 52 yo man with schizophrenia with multiple recent psychiatric hospitalizations after each has eloped from his fpc. On 304 commitment and accepted to [facility]. No current bed date. [facility] due to psychosis and limited ability to tolerate peers and hx of aggression with delusions 05/16/2023: More comfortable today. Has not sought any change in medication nor requested any PRN's and is less anxious about the increase in venlafaxine XR. No adverse effect attributable to any of his medications. Has been participating appropriately in the milieu and groups. 05/15/2023: Pt became apprehensive yesterday about the increase in venlafaxine XR from 75 mg to 150 mg 3 days previously (ordered 05/09/2023, first increased dose 05/10/2023). He didn't actually report any adverse effect at all, but seemed to take this as an indication that he was doing worse. Reminded him that we'd previously discussed that the 75 mg dose is quite low and that doses of 225 mg and higher are usually required for optimal effect, especially for anxiety. Yesterday evening pt requested "more Trilafon" shortly after getting PRN chlorpromazine. Has frequently requested chlorpromazine today. When I ask reason for this, pt says he feels as if he needs more medication, but denies any new or worse symptoms, including any worsening in psychosis. My sense is that his anxieties about ensuring his treatment is adequate are being exacerbated because every other patient currently admitted is very anxious and all have obsessive- compulsive symptoms centering around medication. 05/14/2023: Says he's "doing pretty good" and reports that chronic hallucinations are below baseline level and not bothering him. Reports no adverse medication effects. Asks about going for a walk with staff (to which he's entitled per policy contingent on staff availability). 05/13/2023: Reports that he's "doing good" with "not much of hallucinations". Again voices apprehension about whether I will change his regimen of 3 antipsychotics. Denies any side effects. 05/12/2023: Says that he's "having another really good day" thus far today. He reports minimal hallucinations, saying "I don't really notice them that much if I don't think about them". Asks "you're not going to change the medication, are you?", expressing awareness of our several previous discussions about the strong recommendation in general to avoid multiple antipsychotic medications. 05/11/2023: Pt reports he's "having another good day" with minimal hallucinations. Accurately anticipates that I'll want to discuss his being on 3 antipsychotics, 2 of them phenothiazines, with a goal of formulating a plan to transition to either chlorpromazine alone or perphenazine alone, but not both. He says he feels as if he's doing very well and is fearful of relapse. He and I have already concluded that available evidence strongly supports that, for some reason, he has never done well on monotherapy with anything and has done best when on both haloperidol and chlorpromazine (the only phenothiazine he appears to have taken in the past). 05/10/2023: Reports "feeling a lot better today" and reports "the hallucinations are back under control". Discussed that this improved with no change in medication, repeating my opinion that medication changes are best avoided unless necessary but that use of 4 antipsychotics is deprecated. Pt emphasizes that he's very happy with how he's doing right now and really doesn't want to change the regimen. 05/09/2023: Reports "having a bad day" with more prominent, distressing visual hallucinations of "dark" figures experienced as nefarious and threatening. I'm very loath to change antipsychotic regimen right now given history of worsened psychosis with most medication changes. A record review undertaken by RN reveals a fairly strong pattern of 2-3 day periods of worsened psychosis every 2-3 weeks seemingly unrelated to whether antipsychotic regimen is changed or not. I note that venlafaxine dose is unusually low and suspect that anxiety would respond to dose more in the usual therapeutic range of ~225 mg/day. 05/08/2023: Reports "feeling OK" today, with "just little hallucinations now and then". However, there have been multiple medication changes since I last saw him 3 weeks ago and he's not on perphenazine in addition to chlorpromazine and depot haloperidol. Oral haloperidol has finally been eliminated. He says he's tolerating this regimen well. He tells me he doesn't think he's taken perphenazine ("Trilafon") before. His current chlorpromazine dose totalling 400 mg/day remains low compared to typical monotherapy doses in the 600 to 800 mg/day range but there's been a sense that it might have caused hypotension (not currently seen) in the past. Since perphenazine is, like chlorpromazine, a phenothiazine (albeit of medium rather than low potency), selecting one would appear prudent. By history as related by pt and reflected in the record, pt has done best when on both haloperidol and chlorpromazine in the past and has failed numerous trial of alternate agents. However, there's also a strong correlation between medication changes and symptoms exacerbation so I'm loath to change the phenothiazines just out of preference to minimize antipsychotics since he's currently doing well. I'll attempt to determine whether he's been documented as having taken perphenazine before. 05/07/23: Mood remains stable today, ongoing lessening of hallucination intensity since introduction of Trilafon. Tolerating Trilafon and other psychiatric medications without any side effects. Awaiting [facility] hospital placement (1) Schizophrenia: (2) Paranoid: Plan 05/16/2023: * continue perphenazine 8 mg BID (see notes in Impression re: use of 3 antipsychotics) - started on 05/04/2023 * continue chlorpromazine 50 mg QAM, 50 mg midday, and 300 mg QHS - increased 04/26/2023 from 50 mg BID & 100 mg QHS * continue venlafaxine ER 150 mg daily - increased 05/09/2023 to 150 mg, started 03/28/2023 at 75 mg * continue haloperidol decanoate total of 400 mg HAYES over two days - received on 05/04/2023 and 05/05/2023 * await [facility] bed (he's on the wait list) 05/15/2023: * continue perphenazine 8 mg BID (see notes in Impression re: use of 3 antipsychotics) - started on 05/04/2023 * continue chlorpromazine 50 mg QAM, 50 mg midday, and 300 mg QHS - increased 04/26/2023 from 50 mg BID & 100 mg QHS * continue venlafaxine ER 150 mg daily - increased 05/09/2023 to 150 mg, started 03/28/2023 at 75 mg * continue haloperidol decanoate total of 400 mg HAYES over two days - received on 05/04/2023 and 05/05/2023 * [facility] bed (he's on the wait list) 05/14/2023: * continue perphenazine 8 mg BID (see notes in Impression re: use of 3 antipsychotics) - started on 05/04/2023 * continue chlorpromazine 50 mg QAM, 50 mg midday, and 300 mg QHS - increased 04/26/2023 from 50 mg BID & 100 mg QHS * continue venlafaxine ER 150 mg daily - increased 05/09/2023 to 150 mg, started 03/28/2023 at 75 mg * continue haloperidol decanoate total of 400 mg HAYES over two days - received on 05/04/2023 and 05/05/2023 * [facility] bed (he's on the wait list) 05/13/2023: * continue perphenazine 8 mg BID (see notes in Impression re: use of 3 antipsychotics) - started on 05/04/2023 * continue chlorpromazine 50 mg QAM, 50 mg midday, and 300 mg QHS - increased 04/26/2023 from 50 mg BID & 100 mg QHS * continue venlafaxine ER 150 mg daily - increased 05/09/2023 to 150 mg, started 03/28/2023 at 75 mg * continue haloperidol decanoate total of 400 mg HAYES over two days - received on 05/04/2023 and 05/05/2023 * [facility] bed (he's on the wait list) 05/12/2023: * continue perphenazine 8 mg BID (see notes in Impression re: use of 3 antipsychotics) - started on 05/04/2023 * continue chlorpromazine 50 mg QAM, 50 mg midday, and 300 mg QHS - increased 04/26/2023 from 50 mg BID & 100 mg QHS * continue venlafaxine ER 150 mg daily - increased 05/09/2023 to 150 mg, started 03/28/2023 at 75 mg * continue haloperidol decanoate total of 400 mg HAYES over two days - received on 05/04/2023 and 05/05/2023 * [facility] bed (he's on the wait list) 05/11/2023: * continue perphenazine 8 mg BID (see notes in Impression re: use of 3 antipsychotics) - started on 05/04/2023 * continue chlorpromazine 50 mg QAM, 50 mg midday, and 300 mg QHS - increased 04/26/2023 from 50 mg BID & 100 mg QHS * continue venlafaxine ER 150 mg daily - increased 05/09/2023 to 150 mg, started 03/28/2023 at 75 mg * continue haloperidol decanoate total of 400 mg HAYES over two days - received on 05/04/2023 and 05/05/2023 05/10/2023: * continue perphenazine 8 mg BID for now despite concern about use of 2 phenothiazines and 3 total antipsychotics - started on 05/04/2023 * continue chlorpromazine 50 mg QAM, 50 mg midday, and 300 mg QHS - increased 04/26/2023 from 50 mg BID & 100 mg QHS * continue venlafaxine ER 150 mg daily - increased 05/09/2023 to 150 mg, started 03/28/2023 at 75 mg * continue haloperidol decanoate total of 400 mg HAYES over two days - received on 05/04/2023 and 05/05/2023 05/09/2023: * continue perphenazine 8 mg BID for now despite concern about use of 2 phenothiazines and 3 total antipsychotics - started on 05/04/2023 * continue chlorpromazine 50 mg QAM, 50 mg midday, and 300 mg QHS - increased 04/26/2023 from 50 mg BID & 100 mg QHS * increase venlafaxine ER 75 mg daily - started 03/28/2023 * continue haloperidol decanoate total of 400 mg HAYES over two days - received on 05/04/2023 and 05/05/2023 05/08/2023: * continue perphenazine 8 mg BID, though I'm fairly concerned about the use of 2 phenothiazines and 3 total antipsychotics - started on 05/04/2023 * continue chlorpromazine 50 mg QAM, 50 mg midday, and 300 mg QHS - increased 04/26/2023 from 50 mg BID & 100 mg QHS * continue venlafaxine ER 75 mg daily - started 03/28/2023 * continue haloperidol decanoate total of 400mg HAYES over two days; 200 mg HAYES - received on 05/04/2023 and 05/05/2023 05/07/2023: * Trilafon 8mg BID po --started on 05/04/2023 * Continue thorazine 50mg qAM, 50mg qafternoon and 300mg HS --increased on 04/26/2023 * continue venlafaxine ER 75 mg daily - started 03/28/2023 * continue haloperidol decanoate total of 400mg HAYES over two days; 200 mg HAYES - received on 05/04/2023 and 05/05/2023 05/06/2023: * Trilafon 8mg BID po --started on 05/04/2023 * Continue thorazine 50mg qAM, 50mg qafternoon and 300mg HS --increased on 04/26/2023 * continue venlafaxine ER 75 mg daily - started 03/28/2023 * continue haloperidol decanoate total of 400mg HAYES over two days; 200 mg HAYES - received on 05/04/2023 and 05/05/2023 05/05/2023: * Trilafon 8mg BID po --started on 05/04/2023 * Continue thorazine 50mg qAM, 50mg qafternoon and 300mg HS --increased on 04/26/2023 * continue venlafaxine ER 75 mg daily - started 03/28/2023 * continue haloperidol decanoate total of 400mg HAYES over two days; 200 mg HAYES - received on 05/04/2023 and 05/05/2023 05/02/2023: * Discontinue haldol po * Start risperidone 1mg BID with 0.5mg BID prn for hallucinations * Continue thorazine 50mg qAM, 50mg qafternoon and 300mg HS --increased on 04/26/2023 * continue venlafaxine ER 75 mg daily - started 03/28/2023 * continue haloperidol decanoate total of 400mg HAYES over two days; 200 mg HAYES - received on 04/03/2023 and additional 200mg HAYES - received on 04/05/2023; likely will hold off on next dose pending risperidone trial 04/28/2023: continue current meds and tx plan, discussed Depakote augmentation if fails to make steady improvement. 04/27/2023: slow rate of Haldol taper--resume 10 mg BID meals and monitor BP on higher dose of thorazine. If symptoms persist, he may be agreeable to trial of clozaril in place of thorazine and/or depakote. Still a week out from Haldol dec. 04/26/2023: titrate hs thorazine, continue Haldol taper (oral, patient received dec) due on or before 05/05/23. 04/25/2023: d/c hs Haldol in favor of increase in thorazine to 200 mg hs. monitor for orthostasis 04/23/2023: * Chlorpromazine 50mg qAM and 50mg qafternoon and 100mg HS - increased 04/21/2023 from 50mg HS to 100mg HS * continue haloperidol decanoate total of 400mg HAYES over two days; 200 mg HAYES - received on 04/03/2023 and additional 200mg HAYES - received on 04/05/2023 * increase haloperidol po back to 10mg TID - reduced to 5 TID on 04/21/2023 with worsening hallucinations, previously reduced to 10mg TID dose on 04/02/2023 when decanoate was started * continue venlafaxine ER 75 mg daily - started 03/28/2023 04/21/2023: * Chlorpromazine 50mg qAM and 50mg qafternoon and 100mg HS - increased 04/21/2023 from 50mg HS to 100mg HS * continue haloperidol decanoate total of 400mg HAYES over two days; 200 mg HAYES - received on 04/03/2023 and additional 200mg HAYES - received on 04/05/2023 * decrease haloperidol po to 5 mg TID - reduced from 10 mg TID, previously reduced to 10mg TID dose on 04/02/2023 when decanoate was started * continue venlafaxine ER 75 mg daily - started 03/28/2023 04/17/2023: * continue chlropromazine 50mg TID - increased 04/13/2023 from 25 mg BID & 50 mg QHS * continue haloperidol decanoate total of 400mg HAYES over two days; 200 mg HAYES - received on 04/03/2023 and additional 200mg HAYES - received on 04/05/2023 * continue haloperidol 10 mg TID - reduced to this dose on 04/02/2023 when decanoate was started * continue venlafaxine ER 75 mg daily - started 03/28/2023 04/16/2023: * continue chlropromazine 50mg TID - increased 04/13/2023 from 25 mg BID & 50 mg QHS * continue haloperidol decanoate 200 mg HAYES - received on 04/03/2023 * continue haloperidol 10 mg TID - reduced to this dose on 04/02/2023 when decanoate was started * continue venlafaxine ER 75 mg daily - started 03/28/2023 04/15/2023: * continue chlropromazine 50mg TID - increased 04/13/2023 from 25 mg BID & 50 mg QHS * continue haloperidol decanoate 200 mg HAYES - received on 04/03/2023 * continue haloperidol 10 mg TID - reduced to this dose on 04/02/2023 when decanoate was started * continue venlafaxine ER 75 mg daily - started 03/28/2023 04/14/2023: * continue chlropromazine 50mg TID - increased 04/13/2023 from 25 mg BID & 50 mg QHS * continue haloperidol decanoate 200 mg HAYES - received on 04/03/2023 * continue haloperidol 10 mg TID - reduced to this dose on 04/02/2023 when decanoate was started * continue venlafaxine ER 75 mg daily - started 03/28/2023 04/13/2023: * continue chlropromazine 25 mg QAM, 25 mg QPM, 50mg QHS - adjusted to this schedule on 04/02/2023 * continue haloperidol decanoate 200 mg HAYES - received on 04/03/2023 * continue haloperidol 10 mg TID - reduced to this dose on 04/02/2023 when decanoate was started * continue venlafaxine ER 75 mg daily - started 03/28/2023 04/12/2023: * continue chlropromazine 25 mg QAM, 25 mg QPM, 50mg QHS - adjusted to this schedule on 04/02/2023 * continue haloperidol decanoate 200 mg HAYES - received on 04/03/2023 * continue haloperidol 10 mg TID - reduced to this dose on 04/02/2023 when decanoate was started * continue venlafaxine ER 75 mg daily - started 03/28/2023 04/11/2023: * continue chlropromazine 25 mg QAM, 25 mg QPM, 50mg QHS - adjusted to this schedule on 04/02/2023 * continue haloperidol decanoate 200 mg HAYES - received on 04/03/2023 * continue haloperidol 10 mg TID - reduced to this dose on 04/02/2023 when decanoate was started * continue venlafaxine ER 75 mg daily - started 03/28/2023 04/10/2023: * continue chlropromazine 25 mg QAM, 25 mg QPM, 50mg QHS - adjusted to this schedule on 04/02/2023 * continue haloperidol decanoate 200 mg HAYES - received on 04/03/2023 * continue haloperidol 10 mg TID - reduced to this dose on 04/02/2023 when dec anoate was started * continue venlafaxine ER 75 mg daily - started 03/28/2023 04/05/2023: Additional Haldol decanoate 200mg HAYES, continue po thorazine and po haldol 04/04/2023: Continue current medications and tx plan. Consider additional dose of haldol decanoate 100-200mg HAYES tomorrow. 04/03/2023: * thorazine 25mg qAM, 25mg qdinner, 50mg HS * haldol decanoate 200mg HAYES-- received on 04/03/2023 * haldol po 10mg TID * Effexor ER 75mg daily 04/02/2023: thorazine 25 mg am and pm meal, 50 mg hs with additional 25 mg prn. Patient now agreeable to Haldol dec. Will decrease to 10 mg TID as interval increase of midday dose to 20 mg has not helped with pm breakthrough. Will load 200 mg dose today with additional 100-200 mg loading and PO Haldol taper per Dr. Smith. 04/01/2023: ortho cleared patient, he can discontinue boot at his own comfort, his residual foot deformity does not require surgery 03/28/2023: diversion meeting outcome is all community resources have been exhausted and patient will remain referred to [facility] hospital. repeat foot x ray tomorrow. Patient desires d/c trazodone. completed quality case review with [facility] peer to peer Dr. Jimenez discussing that patient has repeatedly refused clozaril and HAYES and prefers thorazine/haldol component, current doses are best for his BP. Discussed rationale for low dose Effexor XR. Patient has become agitated/disinhibited on higher doses of antidepressants in past so I would not titrate. 03/25/2023: * Consolidate thorazine to 75mg HS * Continue haldol 10mg qAM, 20mg miday and 10mg HS 03/22/2023: * increase haloperidol to 10 mg qAM, 20mg midday and 10mg HS- started this schedule 03/22/2023 * consolidate chlorpromazine to 25mg qAM and 50mg HS 03/21/2023: * continue haloperidol 10 mg TID - started this schedule 03/03/2023 * consolidate chlorpromazine to 25mg qAM and 50mg HS 03/20/2023: * continue haloperidol 10 mg TID - started this schedule 03/03/2023 * continue chlorpromazine 25 mg TID - resumed 03/17/2023 * change cogentin from HS scheduled to HS prn use for muscle stiffness to reduce polypharmacy 03/18/2023: * continue haloperidol 10 mg TID - started this schedule 03/03/2023 * continue chlorpromazine 25 mg TID - resumed 03/17/2023 * was committed for extended treatment at 304 hearing today, plan to pursue [facility] hospital transfer 03/17/2023: * continue haloperidol 10 mg TID - started this schedule 03/03/2023 * increase chlorpromazine to 25 mg TID * probable 304 hearing on February 03/07/2023: Start trazodone 100mg HS po. Continue haldol 10mg TID po 03/03/2023: unable to resume thorazine, offered to try splitting Haldol to TID to see if any improvement in orthostasis. 03/02/2023: The patient was [facility] (locked inpatient mental health unit) on q15 min checks (behavioral with suicide precautions) for safety. The patient will participate in group, recreational, and milieu therapies and will be offered additional individual and family sessions as clinically appropriate. Continue to hold thorazine and monitor BP. Inventory Assets Strengths: taking PO meds, cooperative with tx plan Needs: longer term hospitalization, medical monitoring Suicide Risk Level Suicide Risk Level: Moderate (q15 min suicide checks) Suicide Risk Level Comments: The patient remains at moderate risk, primarily because of his persistent intermittent persecutory auditory hallucinations. He again reiterates that he is not experiencing suicidal thoughts, does not have any suicidal intent, and has no plan for suicide. He denies any command AH. He also convincingly assures us that he will notify staff if thoughts of self-harm emerge and has been consistently seeking out staff support when he feels overwhelmed by hallucinations. Risk Factors Assessment Male: Yes : Yes Do You Have Access To A Gun?: No Mental Health Diagnoses: Yes Previous Attempt: Yes Previous Psychiatric Hospitalization: Yes Protective Factors Assessment Employed: No Interval History Identifying Information UMBERTO DAMIAN is a 52-year-old man who lives in a [place] [facility] f[facility] with a history of schizophrenia, who eloped after returning to his fpc and was found by police wandering with concern for dehydration due to hot temperatures/humidity. He is on a 304 commitment as of 03/18/2023. Chief Complaint "Pretty good". Review of Systems Sleep Information Total Hours of Sleep: 6 Sleep Comments: 50mg of PRN Vistaril around 0225 Meal Information Percent Meal Consumed - Breakfast: 100 Percent Meal Consumed - Lunch: 100 Percent Meal Consumed - Dinner: 100 Nutrition Comment: Initially refused but later ate supper Subjective Subjective The patient was seen and assessed and interval progress reviewed in a multidisciplinary team meeting with nursing and social work. For details, see the "Impression" section. Overall I spent a total of 29 minutes for this inpatient follow-up including review of chart records, direct evaluation of the patient [id number], counseling the patient, medication education with the patient, risk assessment, discussion during interdisciplinary treatment rounds, and documentation in the electronic health record. Physical Exam Psychiatric Orientation: alert, oriented to person, oriented to place, oriented to time and cooperative Apperance: appropriately dressed, appropriately groomed and + disheveled Eye Contact: good eye contact and + fair eye contact Motor Behavior: no abnormal motor movements Speech: normal rate/rhythm/volume of speech Affect: euthymic affect and mood congruent with affect; no depressed affect Mood: no depressed mood Thought Process: clear/coherent thought process and + concrete thought process Thought Content: reality based without delusions Suicidal Thoughts: denies suicidal thoughts and denies suicidal plan Homicidal Thoughts: denies homicidal thoughts Hallucinations: + auditory hallucinations (intermittent) and + visual hallucinations (intermittently seeing people in trenchcoats, falling into a tremaine en) Cognition: recent memory grossly intact, remote memory grossly intact, attention grossly intact and language grossly intact Estimated Intelligence: average estimated intelligence and consistent with education level Insight: + limited insight Judgment: + limited judgement Vital Signs (Past 24 Hours) Last Vital Signs Temp 36.6 C 05/16/23 06:55 Pulse 75 05/16/23 06:55 Resp 18 05/16/23 06:55 BP 110/67 05/16/23 06:58 Pulse Ox 94 05/16/23 06:55 O2 Del Method Room Air 05/16/23 06:55 Results & Data ([facility]) Current Inpatient Medications Current Inpatient Medications: Current Inpatient Medications Al Hydrox/Mg Hydrox/Simethicone (Aluminum/Magnesium Susp 30 Ml Udc) 30 ml PO Q4H PRN PRN Reason: GI Upset Stop: 06/09/23 05:14 Chlorpromazine HCl (Chlorpromazine Hcl 25 Mg Tab) 50 mg PO Q6 PRN PRN Reason: psychosis Stop: 05/31/23 18:21 Last Admin: 05/14/23 23:04 Dose: 50 mg Chlorpromazine HCl (Chlorpromazine Hcl 100 Mg Tab) 300 mg PO DAILY@2030 [facility] Stop: 05/26/23 20:29 Last Admin: 05/15/23 20:49 Dose: 300 mg Chlorpromazine HCl (Chlorpromazine Hcl 25 Mg Tab) 50 mg PO DAILY@0900 [facility] Stop: 06/16/23 08:59 Chlorpromazine HCl (Chlorpromazine Hcl 25 Mg Tab) 50 mg PO DAILY@1400 [facility] Stop: 06/15/23 13:59 Last Admin: 05/16/23 13:20 Dose: 50 mg Docusate Sodium (Docusate Sodium 100 Mg Cap) 200 mg PO HS [facility] Stop: 05/31/23 21:59 Last Admin: 05/15/23 20:49 Dose: 200 mg Hydroxyzine HCl (Hydroxyzine Hcl 25 Mg Tab) 25 mg PO Q4H PRN PRN Reason: Anxiety Stop: 06/09/23 05:09 Last Admin: 05/16/23 04:21 Dose: 25 mg Hydroxyzine HCl (Hydroxyzine Hcl 25 Mg Tab) 50 mg PO HSZ PRN PRN Reason: Insomnia Stop: 06/09/23 05:11 Last Admin: 05/15/23 02:25 Dose: 50 mg Magnesium Hydroxide (Magnesium Hydroxide Susp 30 Ml Udc) 30 ml PO DAILY PRN PRN Reason: Constipation Stop: 06/09/23 05:15 Miscellaneous (Pending Order) 1 each N/A Q30D@0900 [facility] Stop: 11/29/23 08:59 Perphenazine (Perphenazine 2 Mg Tablet) 8 mg PO BID [facility] Stop: 06/03/23 20:59 Last Admin: 05/16/23 08:50 Dose: 8 mg Venlafaxine HCl (Venlafaxine Hcl Xr 150 Mg Capxr) 150 mg PO QAM JOSEMANUEL Stop: 06/09/23 08:59 Last Admin: 05/16/23 08:50 Dose: 150 mg Mental Health & Subst Abuse Tx Psychiatrist Name of Psychiatrist: Dr. Umberto Aviles Psychiatrist's Psychiatric Appointment Comment: Telehealth Therapist Name of Therapist: Chary Velasquez Therapist's Therapy Appointment Comment: [address] [place] [address] [id number], [place] [address] Post Discharge Appointments Primary Care Physician Name Of Family Doctor/PCP: You Brooks
[2023-05-16] MEDS: DOCUSATE SODIUM 100 MG CAP PO SCH (20:44)
[2023-05-17] MEDS: VENLAFAXINE HCL XR 150 MG CAPXR PO SCH (08:50)
[2023-05-17] MEDS: chlorproMAZINE HCL 25 MG TAB PO SCH ×2 (08:50→13:56)
[2023-05-17] MEDS: PERPHENAZINE 2 MG TAB PO SCH ×2 (08:50→20:32)
--- NOTE | 2023-05-17 18:35 | Psychiatric Progress Note ---
Date of Service May 17, 2023 Impression / Recommendations Impression 52 yo man with schizophrenia with multiple recent psychiatric hospitalizations after each has eloped from his skilled nursing. On 304 commitment and accepted to [facility]. No current bed date. MNPR due to psychosis and limited ability to tolerate peers and hx of aggression with delusions 05/17/2023: Pleasant, appropriate. Offers no complaints nor reports of any adverse medication effects. He asks if I have any news of how long it might be before a bed would be available at the [facility], which unfortunately I don't. 05/16/2023: More comfortable today. Has not sought any change in medication nor requested any PRN's and is less anxious about the increase in venlafaxine XR. No adverse effect attributable to any of his medications. Has been participating appropriately in the milieu and groups. 05/15/2023: Pt became apprehensive yesterday about the increase in venlafaxine XR from 75 mg to 150 mg 3 days previously (ordered 05/09/2023, first increased dose 05/10/2023). He didn't actually report any adverse effect at all, but seemed to take this as an indication that he was doing worse. Reminded him that we'd previously discussed that the 75 mg dose is quite low and that doses of 225 mg and higher are usually required for optimal effect, especially for anxiety. Yesterday evening pt requested "more Trilafon" shortly after getting PRN chlorpromazine. Has frequently requested chlorpromazine today. When I ask reason for this, pt says he feels as if he needs more medication, but denies any new or worse symptoms, including any worsening in psychosis. My sense is that his anxieties about ensuring his treatment is adequate are being exacerbated because every other patient currently admitted is very anxious and all have obsessive- compulsive symptoms centering around medication. 05/14/2023: Says he's "doing pretty good" and reports that chronic hallucinations are below baseline level and not bothering him. Reports no adverse medication effects. Asks about going for a walk with staff (to which he's entitled per policy contingent on staff availability). 05/13/2023: Reports that he's "doing good" with "not much of hallucinations". Again voices apprehension about whether I will change his regimen of 3 antipsychotics. Denies any side effects. 05/12/2023: Says that he's "having another really good day" thus far today. He reports minimal hallucinations, saying "I don't really notice them that much if I don't think about them". Asks "you're not going to change the medication, are you?", expressing awareness of our several previous discussions about the strong recommendation in general to avoid multiple antipsychotic medications. 05/11/2023: Pt reports he's "having another good day" with minimal hallucinations. Accurately anticipates that I'll want to discuss his being on 3 antipsychotics, 2 of them phenothiazines, with a goal of formulating a plan to transition to either chlorpromazine alone or perphenazine alone, but not both. He says he feels as if he's doing very well and is fearful of relapse. He and I have already concluded that available evidence strongly supports that, for some reason, he has never done well on monotherapy with anything and has done best w hen on both haloperidol and chlorpromazine (the only phenothiazine he appears to have taken in the past). 05/10/2023: Reports "feeling a lot better today" and reports "the hallucinations are back under control". Discussed that this improved with no change in medication, repeating my opinion that medication changes are best avoided unless necessary but that use of 4 antipsychotics is deprecated. Pt emphasizes that he's very happy with how he's doing right now and really doesn't want to change the regimen. 05/09/2023: Reports "having a bad day" with more prominent, distressing visual hallucinations of "dark" figures experienced as nefarious and threatening. I'm very loath to change antipsychotic regimen right now given history of worsened psychosis with most medication changes. A record review undertaken by RN reveals a fairly strong pattern of 2-3 day periods of worsened psychosis every 2-3 weeks seemingly unrelated to whether antipsychotic regimen is changed or not. I note that venlafaxine dose is unusually low and suspect that anxiety would respond to dose more in the usual therapeutic range of ~225 mg/day. 05/08/2023: Reports "feeling OK" today, with "just little hallucinations now and then". However, there have been multiple medication changes since I last saw him 3 weeks ago and he's not on perphenazine in addition to chlorpromazine and depot haloperidol. Oral haloperidol has finally been eliminated. He says he's tolerating this regimen well. He tells me he doesn't think he's taken perphenazine ("Trilafon") before. His current chlorpromazine dose totalling 400 mg/day remains low compared to typical monotherapy doses in the 600 to 800 mg/day range but there's been a sense that it might have caused hypotension (not currently seen) in the past. Since perphenazine is, like chlorpromazine, a phenothiazine (albeit of medium rather than low potency), selecting one would appear prudent. By history as related by pt and reflected in the record, pt has done best when on both haloperidol and chlorpromazine in the past and has failed numerous trial of alternate agents. However, there's also a strong correlation between medication changes and symptoms exacerbation so I'm loath to change the phenothiazines just out of preference to minimize antipsychotics since he's currently doing well. I'll attempt to determine whether he's been documented as having taken perphenazine before. 05/07/23: Mood remains stable today, ongoing lessening of hallucination intensity since introduction of Trilafon. Tolerating Trilafon and other psychiatric medications without any side effects. Awaiting [facility] hospital placement (1) Schizophrenia: (2) Paranoid: Plan 05/17/2023: * continue perphenazine 8 mg BID (see notes in Impression re: use of 3 antipsychotics) - started on 05/04/2023 * continue chlorpromazine 50 mg QAM, 50 mg midday, and 300 mg QHS - increased 04/26/2023 from 50 mg BID & 100 mg QHS * continue venlafaxine ER 150 mg daily - increased 05/09/2023 to 150 mg, started 03/28/2023 at 75 mg * continue haloperidol decanoate total of 400 mg HAYES over two days - received on 05/04/2023 and 05/05/2023 * await [facility] hospital bed (he's on the wait list) 05/16/2023: * continue perphenazine 8 mg BID (see notes in Impression re: use of 3 antipsychotics) - started on 05/04/2023 * continue chlorpromazine 50 mg QAM, 50 mg midday, and 300 mg QHS - increased 04/26/2023 from 50 mg BID & 100 mg QHS * continue venlafaxine ER 150 mg daily - increased 05/09/2023 to 150 mg, started 03/28/2023 at 75 mg * continue haloperidol decanoate total of 400 mg HAYES over two days - received on 05/04/2023 and 05/05/2023 * [facility] bed (he's on the wait list) 05/15/2023: * continue perphenazine 8 mg BID (see notes in Impression re: use of 3 antipsychotics) - started on 05/04/2023 * continue chlorpromazine 50 mg QAM, 50 mg midday, and 300 mg QHS - increased 04/26/2023 from 50 mg BID & 100 mg QHS * continue venlafaxine ER 150 mg daily - increased 05/09/2023 to 150 mg, started 03/28/2023 at 75 mg * continue haloperidol decanoate total of 400 mg HAYES over two days - received on 05/04/2023 and 05/05/2023 * [facility] bed (he's on the wait list) 05/14/2023: * continue perphenazine 8 mg BID (see notes in Impression re: use of 3 antipsychotics) - started on 05/04/2023 * continue chlorpromazine 50 mg QAM, 50 mg midday, and 300 mg QHS - increased 04/26/2023 from 50 mg BID & 100 mg QHS * continue venlafaxine ER 150 mg daily - increased 05/09/2023 to 150 mg, started 03/28/2023 at 75 mg * continue haloperidol decanoate total of 400 mg HAYES over two days - received on 05/04/2023 and 05/05/2023 * [facility] bed (he's on the wait list) 05/13/2023: * continue perphenazine 8 mg BID (see notes in Impression re: use of 3 antipsychotics) - started on 05/04/2023 * continue chlorpromazine 50 mg QAM, 50 mg midday, and 300 mg QHS - increased 04/26/2023 from 50 mg BID & 100 mg QHS * continue venlafaxine ER 150 mg daily - increased 05/09/2023 to 150 mg, started 03/28/2023 at 75 mg * continue haloperidol decanoate total of 400 mg HAYES over two days - received on 05/04/2023 and 05/05/2023 * [facility] bed (he's on the wait list) 05/12/2023: * continue perphenazine 8 mg BID (see notes in Impression re: use of 3 antipsychotics) - started on 05/04/2023 * continue chlorpromazine 50 mg QAM, 50 mg midday, and 300 mg QHS - increased 04/26/2023 from 50 mg BID & 100 mg QHS * continue venlafaxine ER 150 mg daily - increased 05/09/2023 to 150 mg, started 03/28/2023 at 75 mg * continue haloperidol decanoate total of 400 mg HAYES over two days - received on 05/04/2023 and 05/05/2023 * [facility] bed (he's on the wait list) 05/11/2023: * continue perphenazine 8 mg BID (see notes in Impression re: use of 3 antipsychotics) - started on 05/04/2023 * continue chlorpromazine 50 mg QAM, 50 mg midday, and 300 mg QHS - increased 04/26/2023 from 50 mg BID & 100 mg QHS * continue venlafaxine ER 150 mg daily - increased 05/09/2023 to 150 mg, started 03/28/2023 at 75 mg * continue haloperidol decanoate total of 400 mg HAYES over two days - received on 05/04/2023 and 05/05/2023 05/10/2023: * continue perphenazine 8 mg BID for now despite concern about use of 2 phenothiazines and 3 total antipsychotics - started on 05/04/2023 * continue chlorpromazine 50 mg QAM, 50 mg midday, and 300 mg QHS - increased 04/26/2023 from 50 mg BID & 100 mg QHS * continue venlafaxine ER 150 mg daily - increased 05/09/2023 to 150 mg, started 03/28/2023 at 75 mg * continue haloperidol decanoate total of 400 mg HAYES over two days - received on 05/04/2023 and 05/05/2023 05/09/2023: * continue perphenazine 8 mg BID for now despite concern about use of 2 phenothiazines and 3 total antipsychotics - started on 05/04/2023 * continue chlorpromazine 50 mg QAM, 50 mg midday, and 300 mg QHS - increased 04/26/2023 from 50 mg BID & 100 mg QHS * increase venlafaxine ER 75 mg daily - started 03/28/2023 * continue haloperidol decanoate total of 400 mg HAYES over two days - received on 05/04/2023 and 05/05/2023 05/08/2023: * continue perphenazine 8 mg BID, though I'm fairly concerned about the use of 2 phenothiazines and 3 total antipsychotics - started on 05/04/2023 * continue chlorpromazine 50 mg QAM, 50 mg midday, and 300 mg QHS - increased 04/26/2023 from 50 mg BID & 100 mg QHS * continue venlafaxine ER 75 mg daily - started 03/28/2023 * continue haloperidol decanoate total of 400mg HAYES over two days; 200 mg HAYES - received on 05/04/2023 and 05/05/2023 05/07/2023: * Trilafon 8mg BID po --started on 05/04/2023 * Continue thorazine 50mg qAM, 50mg qafternoon and 300mg HS --increased on 04/26/2023 * continue venlafaxine ER 75 mg daily - started 03/28/2023 * continue haloperidol decanoate total of 400mg HAYES over two days; 200 mg HAYES - received on 05/04/2023 and 05/05/2023 05/06/2023: * Trilafon 8mg BID po --started on 05/04/2023 * Continue thorazine 50mg qAM, 50mg qafternoon and 300mg HS --increased on 04/26/2023 * continue venlafaxine ER 75 mg daily - started 03/28/2023 * continue haloperidol decanoate total of 400mg HAYES over two days; 200 mg HAYES - received on 05/04/2023 and 05/05/2023 05/05/2023: * Trilafon 8mg BID po --started on 05/04/2023 * Continue thorazine 50mg qAM, 50mg qafternoon and 300mg HS --increased on 04/26/2023 * continue venlafaxine ER 75 mg daily - started 03/28/2023 * continue haloperidol decanoate total of 400mg HAYES over two days; 200 mg HAYES - received on 05/04/2023 and 05/05/2023 05/02/2023: * Discontinue haldol po * Start risperidone 1mg BID with 0.5mg BID prn for hallucinations * Continue thorazine 50mg qAM, 50mg qafternoon and 300mg HS --increased on 04/26/2023 * continue venlafaxine ER 75 mg daily - started 03/28/2023 * continue haloperidol decanoate total of 400mg HAYES over two days; 200 mg HAYES - received on 04/03/2023 and additional 200mg HAYES - received on 04/05/2023; likely will hold off on next dose pending risperidone trial 04/28/2023: continue current meds and tx plan, discussed Depakote augmentation if fails to make steady improvement. 04/27/2023: slow rate of Haldol taper--resume 10 mg BID meals and monitor BP on higher dose of thorazine. If symptoms persist, he may be agreeable to trial of clozaril in place of thorazine and/or depakote. Still a week out from Haldol dec. 04/26/2023: titrate hs thorazine, continue Haldol taper (oral, patient received dec) due on or before 05/05/23. 04/25/2023: d/c hs Haldol in favor of increase in thorazine to 200 mg hs. monitor for orthostasis 04/23/2023: * Chlorpromazine 50mg qAM and 50mg qafternoon and 100mg HS - increased 04/21/2023 from 50mg HS to 100mg HS * continue haloperidol decanoate total of 400mg HAYES over two days; 200 mg HAYES - received on 04/03/2023 and additional 200mg HAYES - received on 04/05/2023 * increase haloperidol po back to 10mg TID - reduced to 5 TID on 04/21/2023 with worsening hallucinations, previously reduced to 10mg TID dose on 04/02/2023 when decanoate was started * continue venlafaxine ER 75 mg daily - started 03/28/2023 04/21/2023: * Chlorpromazine 50mg qAM and 50mg qafternoon and 100mg HS - increased 04/21/2023 from 50mg HS to 100mg HS * continue haloperidol decanoate total of 400mg HAYES over two days; 200 mg HAYES - received on 04/03/2023 and additional 200mg HAYES - received on 04/05/2023 * decrease haloperidol po to 5 mg TID - reduced from 10 mg TID, previously reduced to 10mg TID dose on 04/02/2023 when decanoate was started * continue venlafaxine ER 75 mg daily - started 03/28/2023 04/17/2023: * continue chlropromazine 50mg TID - increased 04/13/2023 from 25 mg BID & 50 mg QHS * continue haloperidol decanoate total of 400mg HAYES over two days; 200 mg HAYES - received on 04/03/2023 and additional 200mg HAYES - received on 04/05/2023 * continue haloperidol 10 mg TID - reduced to this dose on 04/02/2023 when decanoate was started * continue venlafaxine ER 75 mg daily - started 03/28/2023 04/16/2023: * continue chlropromazine 50mg TID - increased 04/13/2023 from 25 mg BID & 50 mg QHS * continue haloperidol decanoate 200 mg HAYES - received on 04/03/2023 * continue haloperidol 10 mg TID - reduced to this dose on 04/02/2023 when decanoate was started * continue venlafaxine ER 75 mg daily - started 03/28/2023 04/15/2023: * continue chlropromazine 50mg TID - increased 04/13/2023 from 25 mg BID & 50 mg QHS * continue haloperidol decanoate 200 mg HAYES - received on 04/03/2023 * continue haloperidol 10 mg TID - reduced to this dose on 04/02/2023 when decanoate was started * continue venlafaxine ER 75 mg daily - started 03/28/2023 04/14/2023: * continue chlropromazine 50mg TID - increased 04/13/2023 from 25 mg BID & 50 mg QHS * continue haloperidol decanoate 200 mg HAYES - received on 04/03/2023 * continue haloperidol 10 mg TID - reduced to this dose on 04/02/2023 when decanoate was started * continue venlafaxine ER 75 mg daily - started 03/28/2023 04/13/2023: * continue chlropromazine 25 mg QAM, 25 mg QPM, 50mg QHS - adjusted to this schedule on 04/02/2023 * continue haloperidol decanoate 200 mg HAYES - received on 04/03/2023 * continue haloperidol 10 mg TID - reduced to this dose on 04/02/2023 when decanoate was started * continue venlafaxine ER 75 mg daily - started 03/28/2023 04/12/2023: * continue chlropromazine 25 mg QAM, 25 mg QPM, 50mg QHS - adjusted to this schedule on 04/02/2023 * continue haloperidol decanoate 200 mg HAYES - received on 04/03/2023 * continue haloperidol 10 mg TID - reduced to this dose on 04/02/2023 when decanoate was started * continue venlafaxine ER 75 mg daily - started 03/28/2023 04/11/2023: * continue chlropromazine 25 mg QAM, 25 mg QPM, 50mg QHS - adjusted to this schedule on 04/02/2023 * continue haloperidol decanoate 200 mg HAYES - received on 04/03/2023 * continue haloperidol 10 mg TID - reduced to this dose on 04/02/2023 when d ecanoate was started * continue venlafaxine ER 75 mg daily - started 03/28/2023 04/10/2023: * continue chlropromazine 25 mg QAM, 25 mg QPM, 50mg QHS - adjusted to this schedule on 04/02/2023 * continue haloperidol decanoate 200 mg HAYES - received on 04/03/2023 * continue haloperidol 10 mg TID - reduced to this dose on 04/02/2023 when decanoate was started * continue venlafaxine ER 75 mg daily - started 03/28/2023 04/05/2023: Additional Haldol decanoate 200mg HAYES, continue po thorazine and po haldol 04/04/2023: Continue current medications and tx plan. Consider additional dose of haldol decanoate 100-200mg HAYES tomorrow. 04/03/2023: * thorazine 25mg qAM, 25mg qdinner, 50mg HS * haldol decanoate 200mg HAYES-- received on 04/03/2023 * haldol po 10mg TID * Effexor ER 75mg daily 04/02/2023: thorazine 25 mg am and pm meal, 50 mg hs with additional 25 mg prn. Patient now agreeable to Haldol dec. Will decrease to 10 mg TID as interval increase of midday dose to 20 mg has not helped with pm breakthrough. Will load 200 mg dose today with additional 100-200 mg loading and PO Haldol taper per Dr. Smith. 04/01/2023: ortho cleared patient, he can discontinue boot at his own comfort, his residual foot deformity does not require surgery 03/28/2023: diversion meeting outcome is all community resources have been exhausted and patient will remain referred to [facility]. repeat foot x ray tomorrow. Patient desires d/c trazodone. completed quality case review with [facility] peer to peer Dr. Jimenez discussing that patient has repeatedly refused clozaril and HAYES and prefers thorazine/haldol component, current doses are best for his BP. Discussed rationale for low dose Effexor XR. Patient has become agitated/disinhibited on higher doses of antidepressants in past so I would not titrate. 03/25/2023: * Consolidate thorazine to 75mg HS * Continue haldol 10mg qAM, 20mg miday and 10mg HS 03/22/2023: * increase haloperidol to 10 mg qAM, 20mg midday and 10mg HS- started this schedule 03/22/2023 * consolidate chlorpromazine to 25mg qAM and 50mg HS 03/21/2023: * continue haloperidol 10 mg TID - started this schedule 03/03/2023 * consolidate chlorpromazine to 25mg qAM and 50mg HS 03/20/2023: * continue haloperidol 10 mg TID - started this schedule 03/03/2023 * continue chlorpromazine 25 mg TID - resumed 03/17/2023 * change cogentin from HS scheduled to HS prn use for muscle stiffness to reduce polypharmacy 03/18/2023: * continue haloperidol 10 mg TID - started this schedule 03/03/2023 * continue chlorpromazine 25 mg TID - resumed 03/17/2023 * was committed for extended treatment at 304 hearing today, plan to pursue [facility] hospital transfer 03/17/2023: * continue haloperidol 10 mg TID - started this schedule 03/03/2023 * increase chlorpromazine to 25 mg TID * probable 304 hearing on February 03/07/2023: Start trazodone 100mg HS po. Continue haldol 10mg TID po 03/03/2023: unable to resume thorazine, offered to try splitting Haldol to TID to see if any improvement in orthostasis. 03/02/2023: The patient was admitted to the [facility] ([facility] mental health unit) on q15 min checks (behavioral with suicide precautions) for safety. The patient will participate in group, recreational, and milieu therapies and will be offered additional individual and family sessions as clinically appropriate. Continue to hold thorazine and monitor BP. Inventory Assets Strengths: taking PO meds, cooperative with tx plan Needs: longer term hospitalization, medical monitoring Suicide Risk Level Suicide Risk Level: Moderate (q15 min suicide checks) Suicide Risk Level Comments: The patient remains at moderate risk, primarily because of his persistent intermittent persecutory auditory hallucinations. He again reiterates that he is not experiencing suicidal thoughts, does not have any suicidal intent, and has no plan for suicide. He denies any command AH. He also convincingly assures us that he will notify staff if thoughts of self-harm emerge and has been consistently seeking out staff support when he feels overwhelmed by hallucinations. Risk Factors Assessment Male: Yes : Yes Do You Have Access To A Gun?: No Mental Health Diagnoses: Yes Previous Attempt: Yes Previous Psychiatric Hospitalization: Yes Protective Factors Assessment Employed: No Interval History Identifying Information CASEY DAMIAN is a 52-year-old man who lives in a [facility] skilled nursing with a history of schizophrenia, who eloped after returning to his skilled nursing and was found by police wandering with concern for dehydration due to hot temperatures/humidity. He is on a 304 commitment as of 03/18/2023. Chief Complaint "I'm fine". Review of Systems Sleep Information Total Hours of Sleep: 6.5 Sleep Comments: 50mg of PRN Vistaril around 0225 Meal Information Percent Meal Consumed - Breakfast: 100 Percent Meal Consumed - Lunch: 75 Percent Meal Consumed - Dinner: 100 Nutrition Comment: Ate all of his meal. Subjective Subjective The patient was seen and assessed and interval progress reviewed in a multidisciplinary team meeting with the treatment team. For details, see the "Impression" section. Overall I spent a total of 24 minutes for this inpatient follow-up including review of chart records, direct evaluation of the patient [id number], counseling the patient, risk assessment, discussion during interdisciplinary treatment rounds, and documentation in the electronic health record. Physical Exam Psychiatric Orientation: alert, oriented to person, oriented to place, oriented to time and cooperative Apperance: appropriately dressed and appropriately groomed Eye Contact: good eye contact Motor Behavior: no abnormal motor movements Speech: normal rate/rhythm/volume of speech Affect: euthymic affect and mood congruent with affect; no depressed affect Mood: + anxious mood; no depressed mood Thought Process: clear/coherent thought process and + concrete thought process Thought Content: + paranoid (intermittent) and reality based without delusions (for the most part) Suicidal Thoughts: denies suicidal thoughts, denies suicidal plan and denies suicidal intent Homicidal Thoughts: denies homicidal thoughts Hallucinations: + auditory hallucinations (intermittent) and + visual hallucinations (intermittently seeing people in trenchcoats, falling into a garden) Cognition: recent memory grossly intact, remote memory grossly intact, attention grossly intact and language grossly intact Estimated Intelligence: average estimated intelligence and consistent with education level Insight: + limited insight Judgment: + limited judgement Vital Signs (Past 24 Hours) Last Vital Signs Temp 36.6 C 05/17/23 06:48 Pulse 89 05/17/23 06:49 Resp 16 05/17/23 06:48 BP 101/69 05/17/23 06:49 Pulse Ox 94 05/16/23 06:55 O2 Del Method Room Air 05/16/23 06:55 Results & Data ([facility]) Current Inpatient Medications Current Inpatient Medications: Current Inpatient Medications Al Hydrox/Mg Hydrox/Simethicone (Aluminum/Magnesium Susp 30 Ml Udc) 30 ml PO Q4H PRN PRN Reason: GI Upset Stop: 06/09/23 05:14 Chlorpromazine HCl (Chlorpromazine Hcl 25 Mg Tab) 50 mg PO Q6 PRN PRN Reason: psychosis Stop: 05/31/23 18:21 Last Admin: 05/14/23 23:04 Dose: 50 mg Chlorpromazine HCl (Chlorpromazine Hcl 100 Mg Tab) 300 mg PO DAILY@2030 [facility] Stop: 05/26/23 20:29 Last Admin: 05/16/23 20:44 Dose: 300 mg Chlorpromazine HCl (Chlorpromazine Hcl 25 Mg Tab) 50 mg PO DAILY@0900 [facility] Stop: 06/16/23 08:59 Last Admin: 05/17/23 08:50 Dose: 50 mg Chlorpromazine HCl (Chlorpromazine Hcl 25 Mg Tab) 50 mg PO DAILY@1400 [facility] Stop: 06/15/23 13:59 Last Admin: 05/17/23 13:56 Dose: 50 mg Docusate Sodium (Docusate Sodium 100 Mg Cap) 200 mg PO HS [facility] Stop: 05/31/23 21:59 Last Admin: 05/16/23 20:44 Dose: 200 mg Hydroxyzine HCl (Hydroxyzine Hcl 25 Mg Tab) 25 mg PO Q4H PRN PRN Reason: Anxiety Stop: 06/09/23 05:09 Last Admin: 05/16/23 04:21 Dose: 25 mg Hydroxyzine HCl (Hydroxyzine Hcl 25 Mg Tab) 50 mg PO HSZ PRN PRN Reason: Insomnia Stop: 06/09/23 05:11 Last Admin: 05/15/23 02:25 Dose: 50 mg Magnesium Hydroxide (Magnesium Hydroxide Susp 30 Ml Udc) 30 ml PO DAILY PRN PRN Reason: Constipation Stop: 06/09/23 05:15 Miscellaneous (Pending Order) 1 each N/A Q30D@0900 [facility] Stop: 11/29/23 08:59 Perphenazine (Perphenazine 2 Mg Tablet) 8 mg PO BID [facility] Stop: 06/03/23 20:59 Last Admin: 05/17/23 08:50 Dose: 8 mg Venlafaxine HCl (Venlafaxine Hcl Xr 150 Mg Capxr) 150 mg PO QAM [facility] Stop: 06/09/23 08:59 Last Admin: 05/17/23 08:50 Dose: 150 mg Mental Health & Subst Abuse Tx Psychiatrist Name of Psychiatrist: Dr. Casey Aviles Psychiatrist's Psychiatric Appointment Comment: Telehealth Therapist Name of Therapist: Chary Velasquez Therapist's Therapy Appointment Comment: [id number], [place] [address] Post Discharge Appointments Primary Care Physician Name Of Family Doctor/PCP: You Brooks
[2023-05-17] MEDS: DOCUSATE SODIUM 100 MG CAP PO SCH (20:32)
[2023-05-18] MEDS: hydrOXYzine HCl 25 MG TAB PO PRN (03:55)
[2023-05-18] MEDS: chlorproMAZINE HCL 25 MG TAB PO SCH ×2 (09:04→14:07)
[2023-05-18] MEDS: PERPHENAZINE 2 MG TAB PO SCH ×2 (09:04→20:24)
[2023-05-18] MEDS: VENLAFAXINE HCL XR 150 MG CAPXR PO SCH (09:04)
--- NOTE | 2023-05-18 09:36 | Psychiatric Progress Note ---
Date of Service May 18, 2023 Impression / Recommendations Impression 52 yo man with schizophrenia with multiple recent psychiatric hospitalizations after each has eloped from his penitentiary. On 304 commitment and accepted to [facility]. No current bed date. MNPR due to psychosis and limited ability to tolerate peers and hx of aggression with delusions 05/18/2023: Reports no change from recent baseline, including any new or worse symptoms nor any adverse medication effects. Comments on the construction going on outside, progress of which he's been following outside his window. 05/17/2023: Pleasant, appropriate. Offers no complaints nor reports of any adverse medication effects. He asks if I have any news of how long it might be before a bed would be available at the [facility], which unfortunately I don't. 05/16/2023: More comfortable today. Has not sought any change in medication nor requested any PRN's and is less anxious about the increase in venlafaxine XR. No adverse effect attributable to any of his medications. Has been participating appropriately in the milieu and groups. 05/15/2023: Pt became apprehensive yesterday about the increase in venlafaxine XR from 75 mg to 150 mg 3 days previously (ordered 05/09/2023, first increased dose 05/10/2023). He didn't actually report any adverse effect at all, but seemed to take this as an indication that he was doing worse. Reminded him that we'd previously discussed that the 75 mg dose is quite low and that doses of 225 mg and higher are usually required for optimal effect, especially for anxiety. Yesterday evening pt requested "more Trilafon" shortly after getting PRN chlorpromazine. Has frequently requested chlorpromazine today. When I ask reason for this, pt says he feels as if he needs more medication, but denies any new or worse symptoms, including any worsening in psychosis. My sense is that his anxieties about ensuring his treatment is adequate are being exacerbated because every other patient currently admitted is very anxious and all have obsessive- compulsive symptoms centering around medication. 05/14/2023: Says he's "doing pretty good" and reports that chronic hallucinations are below baseline level and not bothering him. Reports no adverse medication effects. Asks about going for a walk with staff (to which he's entitled per policy contingent on staff availability). 05/13/2023: Reports that he's "doing good" with "not much of hallucinations". Again voices apprehension about whether I will change his regimen of 3 antipsychotics. Denies any side effects. 05/12/2023: Says that he's "having another really good day" thus far today. He reports minimal hallucinations, saying "I don't really notice them that much if I don't think about them". Asks "you're not going to change the medication, are you?", expressing awareness of our several previous discussions about the strong recommendation in general to avoid multiple antipsychotic medications. 05/11/2023: Pt reports he's "having another good day" with minimal hallucinations. Accurately anticipates that I'll want to discuss his being on 3 antipsychotics, 2 of them phenothiazines, with a goal of formulating a plan to transition to either chlorpromazine alone or perphenazine alone, but not both. He says he feels as if he's doing very well and is fearful of relapse. He and I have already concluded that available evidence strongly supports that, for some reason, he has never done well on monotherapy with anything and has done best when on both haloperidol and chlorpromazine (the only phenothiazine he appears to have taken in the past). 05/10/2023: Reports "feeling a lot better today" and reports "the hallucinations are back under control". Discussed that this improved with no change in medication, repeating my opinion that medication changes are best avoided unless necessary but that use of 4 antipsychotics is deprecated. Pt emphasizes that he's very happy with how he's doing right now and really doesn't want to change the regimen. 05/09/2023: Reports "having a bad day" with more prominent, distressing visual hallucinations of "dark" figures experienced as nefarious and threatening. I'm very loath to change antipsychotic regimen right now given history of worsened psychosis with most medication changes. A record review undertaken by RN reveals a fairly strong pattern of 2-3 day periods of worsened psychosis every 2-3 weeks seemingly unrelated to whether antipsychotic regimen is changed or not. I note that venlafaxine dose is unusually low and suspect that anxiety would respond to dose more in the usual therapeutic range of ~225 mg/day. 05/08/2023: Reports "feeling OK" today, with "just little hallucinations now and then". However, there have been multiple medication changes since I last saw him 3 weeks ago and he's not on perphenazine in addition to chlorpromazine and depot haloperidol. Oral haloperidol has finally been eliminated. He says he's tolerating this regimen well. He tells me he doesn't think he's taken perphenazine ("Trilafon") before. His current chlorpromazine dose totalling 400 mg/day remains low compared to typical monotherapy doses in the 600 to 800 mg/day range but there's been a sense that it might have caused hypotension (not currently seen) in the past. Since perphenazine is, like chlorpromazine, a phenothiazine (albeit of medium rather than low potency), selecting one would appear prudent. By history as related by pt and reflected in the record, pt has done best when on both haloperidol and chlorpromazine in the past and has failed numerous trial of alternate agents. However, there's also a strong correlation between medication changes and symptoms exacerbation so I'm loath to change the phenothiazines just out of preference to minimize antipsychotics since he's currently doing well. I'll attempt to determine whether he's been documented as having taken perphenazine before. 05/07/23: Mood remains stable today, ongoing lessening of hallucination intensity since introduction of Trilafon. Tolerating Trilafon and other psychiatric medications without any side effects. Awaiting [facility] placement (1) Schizophrenia: Plan 05/18/2023: * continue perphenazine 8 mg BID (see notes in Impression re: use of 3 antipsychotics) - started on 05/04/2023 * continue chlorpromazine 50 mg QAM, 50 mg midday, and 300 mg QHS - increased 04/26/2023 from 50 mg BID & 100 mg QHS * continue venlafaxine ER 150 mg daily - increased 05/09/2023 to 150 mg, started 03/28/2023 at 75 mg * continue haloperidol decanoate total of 400 mg HAYES over two days - received on 05/04/2023 and 05/05/2023 * await [facility] bed (he's on the wait list) 05/17/2023: * continue perphenazine 8 mg BID (see notes in Impression re: use of 3 antipsychotics) - started on 05/04/2023 * continue chlorpromazine 50 mg QAM, 50 mg midday, and 300 mg QHS - increased 04/26/2023 from 50 mg BID & 100 mg QHS * continue venlafaxine ER 150 mg daily - increased 05/09/2023 to 150 mg, started 03/28/2023 at 75 mg * continue haloperidol decanoate total of 400 mg HAYES over two days - received on 05/04/2023 and 05/05/2023 * [facility] bed (he's on the wait list) 05/16/2023: * continue perphenazine 8 mg BID (see notes in Impression re: use of 3 antipsychotics) - started on 05/04/2023 * continue chlorpromazine 50 mg QAM, 50 mg midday, and 300 mg QHS - increased 04/26/2023 from 50 mg BID & 100 mg QHS * continue venlafaxine ER 150 mg daily - increased 05/09/2023 to 150 mg, started 03/28/2023 at 75 mg * continue haloperidol decanoate total of 400 mg HAYES over two days - received on 05/04/2023 and 05/05/2023 * [facility] bed (he's on the wait list) 05/15/2023: * continue perphenazine 8 mg BID (see notes in Impression re: use of 3 antipsychotics) - started on 05/04/2023 * continue chlorpromazine 50 mg QAM, 50 mg midday, and 300 mg QHS - increased 04/26/2023 from 50 mg BID & 100 mg QHS * continue venlafaxine ER 150 mg daily - increased 05/09/2023 to 150 mg, started 03/28/2023 at 75 mg * continue haloperidol decanoate total of 400 mg HAYES over two days - received on 05/04/2023 and 05/05/2023 * [facility] bed (he's on the wait list) 05/14/2023: * continue perphenazine 8 mg BID (see notes in Impression re: use of 3 antipsychotics) - started on 05/04/2023 * continue chlorpromazine 50 mg QAM, 50 mg midday, and 300 mg QHS - increased 04/26/2023 from 50 mg BID & 100 mg QHS * continue venlafaxine ER 150 mg daily - increased 05/09/2023 to 150 mg, started 03/28/2023 at 75 mg * continue haloperidol decanoate total of 400 mg HAYES over two days - received on 05/04/2023 and 05/05/2023 * [facility] bed (he's on the wait list) 05/13/2023: * continue perphenazine 8 mg BID (see notes in Impression re: use of 3 antipsychotics) - started on 05/04/2023 * continue chlorpromazine 50 mg QAM, 50 mg midday, and 300 mg QHS - increased 04/26/2023 from 50 mg BID & 100 mg QHS * continue venlafaxine ER 150 mg daily - increased 05/09/2023 to 150 mg, started 03/28/2023 at 75 mg * continue haloperidol decanoate total of 400 mg HAYES over two days - received on 05/04/2023 and 05/05/2023 * [facility] bed (he's on the wait list) 05/12/2023: * continue perphenazine 8 mg BID (see notes in Impression re: use of 3 antipsychotics) - started on 05/04/2023 * continue chlorpromazine 50 mg QAM, 50 mg midday, and 300 mg QHS - increased 04/26/2023 from 50 mg BID & 100 mg QHS * continue venlafaxine ER 150 mg daily - increased 05/09/2023 to 150 mg, started 03/28/2023 at 75 mg * continue haloperidol decanoate total of 400 mg HAYES over two days - received on 05/04/2023 and 05/05/2023 * [facility] bed (he's on the wait list) 05/11/2023: * continue perphenazine 8 mg BID (see notes in Impression re: use of 3 antipsychotics) - started on 05/04/2023 * continue chlorpromazine 50 mg QAM, 50 mg midday, and 300 mg QHS - increased 04/26/2023 from 50 mg BID & 100 mg QHS * continue venlafaxine ER 150 mg daily - increased 05/09/2023 to 150 mg, started 03/28/2023 at 75 mg * continue haloperidol decanoate total of 400 mg HAYES over two days - received on 05/04/2023 and 05/05/2023 05/10/2023: * continue perphenazine 8 mg BID for now despite concern about use of 2 phenothiazines and 3 total antipsychotics - started on 05/04/2023 * continue chlorpromazine 50 mg QAM, 50 mg midday, and 300 mg QHS - increased 04/26/2023 from 50 mg BID & 100 mg QHS * continue venlafaxine ER 150 mg daily - increased 05/09/2023 to 150 mg, started 03/28/2023 at 75 mg * continue haloperidol decanoate total of 400 mg HAYES over two days - received on 05/04/2023 and 05/05/2023 05/09/2023: * continue perphenazine 8 mg BID for now despite concern about use of 2 phenothiazines and 3 total antipsychotics - started on 05/04/2023 * continue chlorpromazine 50 mg QAM, 50 mg midday, and 300 mg QHS - increased 04/26/2023 from 50 mg BID & 100 mg QHS * increase venlafaxine ER 75 mg daily - started 03/28/2023 * continue haloperidol decanoate total of 400 mg AHYES over two days - received on 05/04/2023 and 05/05/2023 05/08/2023: * continue perphenazine 8 mg BID, though I'm fairly concerned about the use of 2 phenothiazines and 3 total antipsychotics - started on 05/04/2023 * continue chlorpromazine 50 mg QAM, 50 mg midday, and 300 mg QHS - increased 04/26/2023 from 50 mg BID & 100 mg QHS * continue venlafaxine ER 75 mg daily - started 03/28/2023 * continue haloperidol decanoate total of 400mg HAYES over two days; 200 mg HAYES - received on 05/04/2023 and 05/05/2023 05/07/2023: * Trilafon 8mg BID po --started on 05/04/2023 * Continue thorazine 50mg qAM, 50mg qafternoon and 300mg HS --increased on 04/26/2023 * continue venlafaxine ER 75 mg daily - started 03/28/2023 * continue haloperidol decanoate total of 400mg HAYES over two days; 200 mg HAYES - received on 05/04/2023 and 05/05/2023 05/06/2023: * Trilafon 8mg BID po --started on 05/04/2023 * Continue thorazine 50mg qAM, 50mg qafternoon and 300mg HS --increased on 04/26/2023 * continue venlafaxine ER 75 mg daily - started 03/28/2023 * continue haloperidol decanoate total of 400mg HAYES over two days; 200 mg HAYES - received on 05/04/2023 and 05/05/2023 05/05/2023: * Trilafon 8mg BID po --started on 05/04/2023 * Continue thorazine 50mg qAM, 50mg qafternoon and 300mg HS --increased on 04/26/2023 * continue venlafaxine ER 75 mg daily - started 03/28/2023 * continue haloperidol decanoate total of 400mg HAYES over two days; 200 mg HAYES - received on 05/04/2023 and 05/05/2023 05/02/2023: * Discontinue haldol po * Start risperidone 1mg BID with 0.5mg BID prn for hallucinations * Continue thorazine 50mg qAM, 50mg qafternoon and 300mg HS --increased on 04/26/2023 * continue venlafaxine ER 75 mg daily - started 03/28/2023 * continue haloperidol decanoate total of 400mg HAYES over two days; 200 mg HAYES - received on 04/03/2023 and additional 200mg HAYES - received on 04/05/2023; likely will hold off on next dose pending risperidone trial 04/28/2023: continue current meds and tx plan, discussed Depakote augmentation if fails to make steady improvement. 04/27/2023: slow rate of Haldol taper--resume 10 mg BID meals and monitor BP on higher dose of thorazine. If symptoms persist, he may be agreeable to trial of clozaril in place of thorazine and/or depakote. Still a week out from Haldol dec. 04/26/2023: titrate hs thorazine, continue Haldol taper (oral, patient received dec) due on or before 05/05/23. 04/25/2023: d/c hs Haldol in favor of increase in thorazine to 200 mg hs. monitor for orthostasis 04/23/2023: * Chlorpromazine 50mg qAM and 50mg qafternoon and 100mg HS - increased 04/21/2023 from 50mg HS to 100mg HS * continue haloperidol decanoate total of 400mg HAYES over two days; 200 mg HAYES - received on 04/03/2023 and additional 200mg HAYES - received on 04/05/2023 * increase haloperidol po back to 10mg TID - reduced to 5 TID on 04/21/2023 with worsening hallucinations, previously reduced to 10mg TID dose on 04/02/2023 when decanoate was started * continue venlafaxine ER 75 mg daily - started 03/28/2023 04/21/2023: * Chlorpromazine 50mg qAM and 50mg qafternoon and 100mg HS - increased 04/21/2023 from 50mg HS to 100mg HS * continue haloperidol decanoate total of 400mg HAYES over two days; 200 mg HAYES - received on 04/03/2023 and additional 200mg HAYES - received on 04/05/2023 * decrease haloperidol po to 5 mg TID - reduced from 10 mg TID, previously reduced to 10mg TID dose on 04/02/2023 when decanoate was started * continue venlafaxine ER 75 mg daily - started 03/28/2023 04/17/2023: * continue chlropromazine 50mg TID - increased 04/13/2023 from 25 mg BID & 50 mg QHS * continue haloperidol decanoate total of 400mg HAYES over two days; 200 mg HAYES - received on 04/03/2023 and additional 200mg HAYES - received on 04/05/2023 * continue haloperidol 10 mg TID - reduced to this dose on 04/02/2023 when decanoate was started * continue venlafaxine ER 75 mg daily - started 03/28/2023 04/16/2023: * continue chlropromazine 50mg TID - increased 04/13/2023 from 25 mg BID & 50 mg QHS * continue haloperidol decanoate 200 mg HAYES - received on 04/03/2023 * continue haloperidol 10 mg TID - reduced to this dose on 04/02/2023 when decanoate was started * continue venlafaxine ER 75 mg daily - started 03/28/2023 04/15/2023: * continue chlropromazine 50mg TID - increased 04/13/2023 from 25 mg BID & 50 mg QHS * continue haloperidol decanoate 200 mg HAYES - received on 04/03/2023 * continue haloperidol 10 mg TID - reduced to this dose on 04/02/2023 when decanoate was started * continue venlafaxine ER 75 mg daily - started 03/28/2023 04/14/2023: * continue chlropromazine 50mg TID - increased 04/13/2023 from 25 mg BID & 50 mg QHS * continue haloperidol decanoate 200 mg HAYES - received on 04/03/2023 * continue haloperidol 10 mg TID - reduced to this dose on 04/02/2023 when decanoate was started * continue venlafaxine ER 75 mg daily - started 03/28/2023 04/13/2023: * continue chlropromazine 25 mg QAM, 25 mg QPM, 50mg QHS - adjusted to this schedule on 04/02/2023 * continue haloperidol decanoate 200 mg HAYES - received on 04/03/2023 * continue haloperidol 10 mg TID - reduced to this dose on 04/02/2023 when decanoate was started * continue venlafaxine ER 75 mg daily - started 03/28/2023 04/12/2023: * continue chlropromazine 25 mg QAM, 25 mg QPM, 50mg QHS - adjusted to this schedule on 04/02/2023 * continue haloperidol decanoate 200 mg HAYES - received on 04/03/2023 * continue haloperidol 10 mg TID - reduced to this dose on 04/02/2023 when decanoate was started * continue venlafaxine ER 75 mg daily - started 03/28/2023 04/11/2023: * continue chlropromazine 25 mg QAM, 25 mg QPM, 50mg QHS - adjusted to this schedule on 04/02/2023 * continue haloperidol decanoate 200 mg HAYES - received on 04/03/2023 * continue haloperidol 10 mg TID - reduced to this dose on 04/02/2023 when decanoate was started * continue venlafaxine ER 75 mg daily - started 03/28/2023 04/10/2023: * continue chlropromazine 25 mg QAM, 25 mg QPM, 50mg QHS - adjusted to this schedule on 04/02/2023 * continue haloperidol decanoate 200 mg HAYES - received on 04/03/2023 * continue haloperidol 10 mg TID - reduced to this dose on 04/02/2023 when decanoate was started * continue venlafaxine ER 75 mg daily - started 03/28/2023 04/05/2023: Additional Haldol decanoate 200mg HAYES, continue po thorazine and po haldol 04/04/2023: Continue current medications and tx plan. Consider additional dose of haldol decanoate 100-200mg HAYES tomorrow. 04/03/2023: * thorazine 25mg qAM, 25mg qdinner, 50mg HS * haldol decanoate 200mg HAYES-- received on 04/03/2023 * haldol po 10mg TID * Effexor ER 75mg daily 04/02/2023: thorazine 25 mg am and pm meal, 50 mg hs with additional 25 mg prn. Patient now agreeable to Haldol dec. Will decrease to 10 mg TID as interval increase of midday dose to 20 mg has not helped with pm breakthrough. Will load 200 mg dose today with additional 100-200 mg loading and PO Haldol taper per Dr. Smith. 04/01/2023: ortho cleared patient, he can discontinue boot at his own comfort, his residual foot deformity does not require surgery 03/28/2023: diversion meeting outcome is all community resources have been exhausted and patient will remain referred to [facility]. repeat foot x ray tomorrow. Patient desires d/c trazodone. completed quality case review with [facility] peer to peer Dr. Jimenez discussing that patient has repeatedly refused clozaril and HAYES and prefers thorazine/haldol component, current doses are best for his BP. Discussed rationale for low dose Effexor XR. Patient has become agitated/disinhibited on higher doses of antidepressants in past so I would not titrate. 03/25/2023: * Consolidate thorazine to 75mg HS * Continue haldol 10mg qAM, 20mg miday and 10mg HS 03/22/2023: * increase haloperidol to 10 mg qAM, 20mg midday and 10mg HS- started this schedule 03/22/2023 * consolidate chlorpromazine to 25mg qAM and 50mg HS 03/21/2023: * continue haloperidol 10 mg TID - started this schedule 03/03/2023 * consolidate chlorpromazine to 25mg qAM and 50mg HS 03/20/2023: * continue haloperidol 10 mg TID - started this schedule 03/03/2023 * continue chlorpromazine 25 mg TID - resumed 03/17/2023 * change cogentin from HS scheduled to HS prn use for muscle stiffness to reduce polypharmacy 03/18/2023: * continue haloperidol 10 mg TID - started this schedule 03/03/2023 * continue chlorpromazine 25 mg TID - resumed 03/17/2023 * was committed for extended treatment at 304 hearing today, plan to pursue [facility] transfer 03/17/2023: * continue haloperidol 10 mg TID - started this schedule 03/03/2023 * increase chlorpromazine to 25 mg TID * probable 304 hearing on February 03/07/2023: Start trazodone 100mg HS po. Continue haldol 10mg TID po 03/03/2023: unable to resume thorazine, offered to try splitting Haldol to TID to see if any improvement in orthostasis. 03/02/2023: The patient was admitted to the [facility] on q15 min checks (behavioral with suicide precautions) for safety. The patient will participate in group, recreational, and milieu therapies and will be offered additional individual and family sessions as clinically appropriate. Continue to hold thorazine and monitor BP. Inventory Assets Strengths: taking PO meds, cooperative with tx plan Needs: longer term hospitalization, medical monitoring Suicide Risk Level Suicide Risk Level: Moderate (q15 min suicide checks) Suicide Risk Level Comments: The patient remains at moderate risk, primarily because of his persistent intermittent persecutory auditory hallucinations. He again reiterates that he is not experiencing suicidal thoughts, does not have any suicidal intent, and has no plan for suicide. He denies any command AH. He also convincingly assures us that he will notify staff if thoughts of self-harm emerge and has been consistently seeking out staff support when he feels overwhelmed by fall ucinations. Risk Factors Assessment Male: Yes : Yes Do You Have Access To A Gun?: No Mental Health Diagnoses: Yes Previous Attempt: Yes Previous Psychiatric Hospitalization: Yes Protective Factors Assessment Employed: No Interval History Identifying Information UMBERTO DAMIAN is a 52-year-old man who lives in a [facility] with a history of schizophrenia, who eloped after returning to his penitentiary and was found by police wandering with concern for dehydration due to hot temperatures/humidity. He is on a 304 commitment as of 03/18/2023. Chief Complaint "It's a good day". Review of Systems Sleep Information Total Hours of Sleep: 7.25 Sleep Comments: 50mg of PRN Vistaril around 0225 Meal Information Percent Meal Consumed - Breakfast: 100 Percent Meal Consumed - Lunch: 75 Percent Meal Consumed - Dinner: 100 Nutrition Comment: Ate all of his meal. Subjective Subjective The patient was seen and assessed and interval progress reviewed in a multidisciplinary team meeting with the treatment team. For details, see the "Impression" section. Overall I spent a total of 25 minutes for this inpatient follow-up including review of chart records, direct evaluation of the patient [id number], counseling the patient, [reconciling and ordering medication, ]medication education with the patient, risk assessment, discussion during interdisciplinary treatment rounds, and documentation in the electronic health record. Physical Exam Psychiatric Orientation: alert, oriented to person, oriented to place, oriented to time and cooperative Apperance: appropriately dressed, appropriately groomed and + disheveled Eye Contact: good eye contact Motor Behavior: no abnormal motor movements Speech: normal rate/rhythm/volume of speech Affect: euthymic affect and mood congruent with affect; no depressed affect Mood: + anxious mood; no depressed mood Thought Process: clear/coherent thought process and + concrete thought process Thought Content: + paranoid (intermittent) and reality based without delusions (for the most part) Suicidal Thoughts: denies suicidal thoughts, denies suicidal plan and denies suicidal intent Homicidal Thoughts: denies homicidal thoughts Hallucinations: + auditory hallucinations (intermittent) and + visual hallucinations (intermittently seeing people in trenchcoats, falling into a garden) Cognition: recent memory grossly intact, remote memory grossly intact, attention grossly intact and language grossly intact Estimated Intelligence: average estimated intelligence and consistent with education level Insight: + limited insight Judgment: + limited judgement Vital Signs (Past 24 Hours) Last Vital Signs Temp 36.6 C 05/18/23 06:54 Pulse 75 05/18/23 06:54 Resp 16 05/18/23 06:54 BP 108/71 05/18/23 06:54 Pulse Ox 94 05/16/23 06:55 O2 Del Method Room Air 05/16/23 06:55 Results & Data ([facility]) Current Inpatient Medications Current Inpatient Medications: Current Inpatient Medications Al Hydrox/Mg Hydrox/Simethicone (Aluminum/Magnesium Susp 30 Ml Udc) 30 ml PO Q4H PRN PRN Reason: GI Upset Stop: 06/09/23 05:14 Chlorpromazine HCl (Chlorpromazine Hcl 25 Mg Tab) 50 mg PO Q6 PRN PRN Reason: psychosis Stop: 05/31/23 18:21 Last Admin: 05/14/23 23:04 Dose: 50 mg Chlorpromazine HCl (Chlorpromazine Hcl 100 Mg Tab) 300 mg PO DAILY@2030 [facility] Stop: 05/26/23 20:29 Last Admin: 05/17/23 20:31 Dose: 300 mg Chlorpromazine HCl (Chlorpromazine Hcl 25 Mg Tab) 50 mg PO DAILY@0900 [facility] Stop: 06/16/23 08:59 Last Admin: 05/18/23 09:04 Dose: 50 mg Chlorpromazine HCl (Chlorpromazine Hcl 25 Mg Tab) 50 mg PO DAILY@1400 [facility] Stop: 06/15/23 13:59 Last Admin: 05/17/23 13:56 Dose: 50 mg Docusate Sodium (Docusate Sodium 100 Mg Cap) 200 mg PO HS [facility] Stop: 05/31/23 21:59 Last Admin: 05/17/23 20:32 Dose: 200 mg Hydroxyzine HCl (Hydroxyzine Hcl 25 Mg Tab) 25 mg PO Q4H PRN PRN Reason: Anxiety Stop: 06/09/23 05:09 Last Admin: 05/18/23 03:55 Dose: 25 mg Hydroxyzine HCl (Hydroxyzine Hcl 25 Mg Tab) 50 mg PO HSZ PRN PRN Reason: Insomnia Stop: 06/09/23 05:11 Last Admin: 05/15/23 02:25 Dose: 50 mg Magnesium Hydroxide (Magnesium Hydroxide Susp 30 Ml Udc) 30 ml PO DAILY PRN PRN Reason: Constipation Stop: 06/09/23 05:15 Miscellaneous (Pending Order) 1 each N/A Q30D@0900 [facility] Stop: 11/29/23 08:59 Perphenazine (Perphenazine 2 Mg Tablet) 8 mg PO BID JOSEMANUEL Stop: 06/03/23 20:59 Last Admin: 05/18/23 09:04 Dose: 8 mg Venlafaxine HCl (Venlafaxine Hcl Xr 150 Mg Capxr) 150 mg PO QAM [facility]MANUEL Stop: 06/09/23 08:59 Last Admin: 05/18/23 09:04 Dose: 150 mg Mental Health & Subst Abuse Tx Psychiatrist Name of Psychiatrist: Dr. Umberto Aviles Psychiatrist's Psychiatric Appointment Comment: Telehealth Therapist Name of Therapist: Chary Velasquez Therapist's Therapy Appointment Comment: [address] [place] [address] [id number], [place] [address] Post Discharge Appointments Primary Care Physician Name Of Family Doctor/PCP: You Brooks (1) Schizophrenia Schizophrenia type: unspecified Qualified Code(s): F20.9 - Schizophrenia, unspecified
[2023-05-18] MEDS: DOCUSATE SODIUM 100 MG CAP PO SCH (20:25)
[2023-05-19] MEDS: hydrOXYzine HCl 25 MG TAB PO PRN (02:54)
[2023-05-19] MEDS: chlorproMAZINE HCL 25 MG TAB PO SCH ×2 (06:29→13:35)
[2023-05-19] MEDS: PERPHENAZINE 2 MG TAB PO SCH ×2 (08:46→19:36)
[2023-05-19] MEDS: VENLAFAXINE HCL XR 150 MG CAPXR PO SCH (08:46)
[2023-05-19] MEDS: chlorproMAZINE HCL 25 MG TAB PO PRN ×2 (16:39→22:13)
[2023-05-19] MEDS: DOCUSATE SODIUM 100 MG CAP PO SCH (19:37)
--- NOTE | 2023-05-19 19:44 | Psychiatric Progress Note ---
Date of Service May 19, 2023 Impression / Recommendations Impression 52 yo man with schizophrenia with multiple recent psychiatric hospitalizations after each has eloped from his care home. On 304 commitment and accepted to [facility]. No current bed date. MNPR due to psychosis and limited ability to tolerate peers and hx of aggression with delusions 05/19/2023: Requested to take AM chlorpromazine at 0700 rather than 0900 to minimize sedation that he finds detract from participation in morning groups. This seems eminently reasonable. Otherwise he reports no change and continues to do fairly well while awaiting a [facility] hospital bed. 05/18/2023: Reports no change from recent baseline, including any new or worse symptoms nor any adverse medication effects. Comments on the construction going on outside, progress of which he's been following outside his window. 05/17/2023: Pleasant, appropriate. Offers no complaints nor reports of any adverse medication effects. He asks if I have any news of how long it might be before a bed would be available at the [facility], which unfortunately I don't. 05/16/2023: More comfortable today. Has not sought any change in medication nor requested any PRN's and is less anxious about the increase in venlafaxine XR. No adverse effect attributable to any of his medications. Has been participating appropriately in the milieu and groups. 05/15/2023: Pt became apprehensive yesterday about the increase in venlafaxine XR from 75 mg to 150 mg 3 days previously (ordered 05/09/2023, first increased dose 05/10/2023). He didn't actually report any adverse effect at all, but seemed to take this as an indication that he was doing worse. Reminded him that we'd previously discussed that the 75 mg dose is quite low and that doses of 225 mg and higher are usually required for optimal effect, especially for anxiety. Yesterday evening pt requested "more Trilafon" shortly after getting PRN chlorpromazine. Has frequently requested chlorpromazine today. When I ask reason for this, pt says he feels as if he needs more medication, but denies any new or worse symptoms, including any worsening in psychosis. My sense is that his anxieties about ensuring his treatment is adequate are being exacerbated because every other patient currently admitted is very anxious and all have obsessive- compulsive symptoms centering around medication. 05/14/2023: Says he's "doing pretty good" and reports that chronic hallucinations are below baseline level and not bothering him. Reports no adverse medication effects. Asks about going for a walk with staff (to which he's entitled per policy contingent on staff availability). 05/13/2023: Reports that he's "doing good" with "not much of hallucinations". Again voices apprehension about whether I will change his regimen of 3 antipsychotics. Denies any side effects. 05/12/2023: Says that he's "having another really good day" thus far today. He reports minimal hallucinations, saying "I don't really notice them that much if I don't think about them". Asks "you're not going to change the medication, are you?", expressing awareness of our several previous discussions about the strong recommendation in general to avoid multiple antipsychotic medications. 05/11/2023: Pt reports he's "having another good day" with minimal hallucinations. Accurately anticipates that I'll want to discuss his being on 3 antipsychotics, 2 of them phenothiazines, with a goal of formulating a plan to transition to either chlorpromazine alone or perphenazine alone, but not both. He says he feels as if he's doing very well and is fearful of relapse. He and I have already concluded that available evidence strongly supports that, for some reason, he has never done well on monotherapy with anything and has done best when on both haloperidol and chlorpromazine (the only phenothiazine he appears to have taken in the past). 05/10/2023: Reports "feeling a lot better today" and reports "the hallucinations are back under control". Discussed that this improved with no change in medication, repeating my opinion that medication changes are best avoided unless necessary but that use of 4 antipsychotics is deprecated. Pt emphasizes that he's very happy with how he's doing right now and really doesn't want to change the regimen. 05/09/2023: Reports "having a bad day" with more prominent, distressing visual hallucinations of "dark" figures experienced as nefarious and threatening. I'm very loath to change antipsychotic regimen right now given history of worsened psychosis with most medication changes. A record review undertaken by RN reveals a fairly strong pattern of 2-3 day periods of worsened psychosis every 2-3 weeks seemingly unrelated to whether antipsychotic regimen is changed or not. I note that venlafaxine dose is unusually low and suspect that anxiety would respond to dose more in the usual therapeutic range of ~225 mg/day. 05/08/2023: Reports "feeling OK" today, with "just little hallucinations now and then". However, there have been multiple medication changes since I last saw him 3 weeks ago and he's not on perphenazine in addition to chlorpromazine and depot haloperidol. Oral haloperidol has finally been eliminated. He says he's tolerating this regimen well. He tells me he doesn't think he's taken perphenazine ("Trilafon") before. His current chlorpromazine dose totalling 400 mg/day remains low compared to typical monotherapy doses in the 600 to 800 mg/day range but there's been a sense that it might have caused hypotension (not currently seen) in the past. Since perphenazine is, like chlorpromazine, a phenothiazine (albeit of medium rather than low potency), selecting one would appear prudent. By history as related by pt and reflected in the record, pt has done best when on both haloperidol and chlorpromazine in the past and has failed numerous trial of alternate agents. However, there's also a strong correlation between medication changes and symptoms exacerbation so I'm loath to change the phenothiazines just out of preference to minimize antipsychotics since he's currently doing well. I'll attempt to determine whether he's been documented as having taken perphenazine before. 05/07/23: Mood remains stable today, ongoing lessening of hallucination intensity since introduction of Trilafon. Tolerating Trilafon and other psychiatric medications without any side effects. Awaiting [facility] hospital placement (1) Schizophrenia: Plan 05/19/2023: * continue perphenazine 8 mg BID (see notes in Impression re: use of 3 antipsychotics) - started on 05/04/2023 * continue chlorpromazine 50 mg QAM, 50 mg midday, and 300 mg QHS - increased 04/26/2023 from 50 mg BID & 100 mg QHS * continue venlafaxine ER 150 mg daily - increased 05/09/2023 to 150 mg, started 03/28/2023 at 75 mg * continue haloperidol decanoate total of 400 mg HAYES over two days - received on 05/04/2023 and 05/05/2023 * [facility] bed (he's on the wait list) 05/18/2023: * continue perphenazine 8 mg BID (see notes in Impression re: use of 3 antipsychotics) - started on 05/04/2023 * continue chlorpromazine 50 mg QAM, 50 mg midday, and 300 mg QHS - increased 04/26/2023 from 50 mg BID & 100 mg QHS * continue venlafaxine ER 150 mg daily - increased 05/09/2023 to 150 mg, started 03/28/2023 at 75 mg * continue haloperidol decanoate total of 400 mg HAYES over two days - received on 05/04/2023 and 05/05/2023 * [facility] bed (he's on the wait list) 05/17/2023: * continue perphenazine 8 mg BID (see notes in Impression re: use of 3 antipsychotics) - started on 05/04/2023 * continue chlorpromazine 50 mg QAM, 50 mg midday, and 300 mg QHS - increased 04/26/2023 from 50 mg BID & 100 mg QHS * continue venlafaxine ER 150 mg daily - increased 05/09/2023 to 150 mg, started 03/28/2023 at 75 mg * continue haloperidol decanoate total of 400 mg HAYES over two days - received on 05/04/2023 and 05/05/2023 * [facility] bed (he's on the wait list) 05/16/2023: * continue perphenazine 8 mg BID (see notes in Impression re: use of 3 antipsychotics) - started on 05/04/2023 * continue chlorpromazine 50 mg QAM, 50 mg midday, and 300 mg QHS - increased 04/26/2023 from 50 mg BID & 100 mg QHS * continue venlafaxine ER 150 mg daily - increased 05/09/2023 to 150 mg, started 03/28/2023 at 75 mg * continue haloperidol decanoate total of 400 mg HAYES over two days - received on 05/04/2023 and 05/05/2023 * [facility] bed (he's on the wait list) 05/15/2023: * continue perphenazine 8 mg BID (see notes in Impression re: use of 3 antipsychotics) - started on 05/04/2023 * continue chlorpromazine 50 mg QAM, 50 mg midday, and 300 mg QHS - increased 04/26/2023 from 50 mg BID & 100 mg QHS * continue venlafaxine ER 150 mg daily - increased 05/09/2023 to 150 mg, started 03/28/2023 at 75 mg * continue haloperidol decanoate total of 400 mg HAYES over two days - received on 05/04/2023 and 05/05/2023 * [facility] bed (he's on the wait list) 05/14/2023: * continue perphenazine 8 mg BID (see notes in Impression re: use of 3 antipsychotics) - started on 05/04/2023 * continue chlorpromazine 50 mg QAM, 50 mg midday, and 300 mg QHS - increased 04/26/2023 from 50 mg BID & 100 mg QHS * continue venlafaxine ER 150 mg daily - increased 05/09/2023 to 150 mg, started 03/28/2023 at 75 mg * continue haloperidol decanoate total of 400 mg HAYES over two days - received on 05/04/2023 and 05/05/2023 * [facility] bed (he's on the wait list) 05/13/2023: * continue perphenazine 8 mg BID (see notes in Impression re: use of 3 antipsychotics) - started on 05/04/2023 * continue chlorpromazine 50 mg QAM, 50 mg midday, and 300 mg QHS - increased 04/26/2023 from 50 mg BID & 100 mg QHS * continue venlafaxine ER 150 mg daily - increased 05/09/2023 to 150 mg, started 03/28/2023 at 75 mg * continue haloperidol decanoate total of 400 mg HAYES over two days - received on 05/04/2023 and 05/05/2023 * [facility] bed (he's on the wait list) 05/12/2023: * continue perphenazine 8 mg BID (see notes in Impression re: use of 3 antipsychotics) - started on 05/04/2023 * continue chlorpromazine 50 mg QAM, 50 mg midday, and 300 mg QHS - increased 04/26/2023 from 50 mg BID & 100 mg QHS * continue venlafaxine ER 150 mg daily - increased 05/09/2023 to 150 mg, started 03/28/2023 at 75 mg * continue haloperidol decanoate total of 400 mg HAYES over two days - received on 05/04/2023 and 05/05/2023 * await [facility] bed (he's on the wait list) 05/11/2023: * continue perphenazine 8 mg BID (see notes in Impression re: use of 3 antipsychotics) - started on 05/04/2023 * continue chlorpromazine 50 mg QAM, 50 mg midday, and 300 mg QHS - increased 04/26/2023 from 50 mg BID & 100 mg QHS * continue venlafaxine ER 150 mg daily - increased 05/09/2023 to 150 mg, started 03/28/2023 at 75 mg * continue haloperidol decanoate total of 400 mg HAYES over two days - received on 05/04/2023 and 05/05/2023 05/10/2023: * continue perphenazine 8 mg BID for now despite concern about use of 2 phenothiazines and 3 total antipsychotics - started on 05/04/2023 * continue chlorpromazine 50 mg QAM, 50 mg midday, and 300 mg QHS - increased 04/26/2023 from 50 mg BID & 100 mg QHS * continue venlafaxine ER 150 mg daily - increased 05/09/2023 to 150 mg, started 03/28/2023 at 75 mg * continue haloperidol decanoate total of 400 mg HAYES over two days - received on 05/04/2023 and 05/05/2023 05/09/2023: * continue perphenazine 8 mg BID for now despite concern about use of 2 phenothiazines and 3 total antipsychotics - started on 05/04/2023 * continue chlorpromazine 50 mg QAM, 50 mg midday, and 300 mg QHS - increased 04/26/2023 from 50 mg BID & 100 mg QHS * increase venlafaxine ER 75 mg daily - started 03/28/2023 * continue haloperidol decanoate total of 400 mg HAYES over two days - received on 05/04/2023 and 05/05/2023 05/08/2023: * continue perphenazine 8 mg BID, though I'm fairly concerned about the use of 2 phenothiazines and 3 total antipsychotics - started on 05/04/2023 * continue chlorpromazine 50 mg QAM, 50 mg midday, and 300 mg QHS - increased 04/26/2023 from 50 mg BID & 100 mg QHS * continue venlafaxine ER 75 mg daily - started 03/28/2023 * continue haloperidol decanoate total of 400mg HAYES over two days; 200 mg HAYES - received on 05/04/2023 and 05/05/2023 05/07/2023: * Trilafon 8mg BID po --started on 05/04/2023 * Continue thorazine 50mg qAM, 50mg qafternoon and 300mg HS --increased on 04/26/2023 * continue venlafaxine ER 75 mg daily - started 03/28/2023 * continue haloperidol decanoate total of 400mg HAYES over two days; 200 mg HAYES - received on 05/04/2023 and 05/05/2023 05/06/2023: * Trilafon 8mg BID po --started on 05/04/2023 * Continue thorazine 50mg qAM, 50mg qafternoon and 300mg HS --increased on 04/26/2023 * continue venlafaxine ER 75 mg daily - started 03/28/2023 * continue haloperidol decanoate total of 400mg HAYES over two days; 200 mg HAYES - received on 05/04/2023 and 05/05/2023 05/05/2023: * Trilafon 8mg BID po --started on 05/04/2023 * Continue thorazine 50mg qAM, 50mg qafternoon and 300mg HS --increased on 04/26/2023 * continue venlafaxine ER 75 mg daily - started 03/28/2023 * continue haloperidol decanoate total of 400mg HAYES over two days; 200 mg HAYES - received on 05/04/2023 and 05/05/2023 05/02/2023: * Discontinue haldol po * Start risperidone 1mg BID with 0.5mg BID prn for hallucinations * Continue thorazine 50mg qAM, 50mg qafternoon and 300mg HS --increased on 04/26/2023 * continue venlafaxine ER 75 mg daily - started 03/28/2023 * continue haloperidol decanoate total of 400mg HAYES over two days; 200 mg HAYES - received on 04/03/2023 and additional 200mg HAYES - received on 04/05/2023; likely will hold off on next dose pending risperidone trial 04/28/2023: continue current meds and tx plan, discussed Depakote augmentation if fails to make steady improvement. 04/27/2023: slow rate of Haldol taper--resume 10 mg BID meals and monitor BP on higher dose of thorazine. If symptoms persist, he may be agreeable to trial of clozaril in place of thorazine and/or depakote. Still a week out from Haldol dec. 04/26/2023: titrate hs thorazine, continue Haldol taper (oral, patient received dec) due on or before 05/05/23. 04/25/2023: d/c hs Haldol in favor of increase in thorazine to 200 mg hs. monitor for orthostasis 04/23/2023: * Chlorpromazine 50mg qAM and 50mg qafternoon and 100mg HS - increased 04/21/2023 from 50mg HS to 100mg HS * continue haloperidol decanoate total of 400mg HAYES over two days; 200 mg HAYES - received on 04/03/2023 and additional 200mg HAYES - received on 04/05/2023 * increase haloperidol po back to 10mg TID - reduced to 5 TID on 04/21/2023 with worsening hallucinations, previously reduced to 10mg TID dose on 04/02/2023 when decanoate was started * continue venlafaxine ER 75 mg daily - started 03/28/2023 04/21/2023: * Chlorpromazine 50mg qAM and 50mg qafternoon and 100mg HS - increased 04/21/2023 from 50mg HS to 100mg HS * continue haloperidol decanoate total of 400mg HAYES over two days; 200 mg HAYES - received on 04/03/2023 and additional 200mg HAYES - received on 04/05/2023 * decrease haloperidol po to 5 mg TID - reduced from 10 mg TID, previously reduced to 10mg TID dose on 04/02/2023 when decanoate was started * continue venlafaxine ER 75 mg daily - started 03/28/2023 04/17/2023: * continue chlropromazine 50mg TID - increased 04/13/2023 from 25 mg BID & 50 mg QHS * continue haloperidol decanoate total of 400mg HAYES over two days; 200 mg HAYES - received on 04/03/2023 and additional 200mg HAYES - received on 04/05/2023 * continue haloperidol 10 mg TID - reduced to this dose on 04/02/2023 when decanoate was started * continue venlafaxine ER 75 mg daily - started 03/28/2023 04/16/2023: * continue chlropromazine 50mg TID - increased 04/13/2023 from 25 mg BID & 50 mg QHS * continue haloperidol decanoate 200 mg HAYES - received on 04/03/2023 * continue haloperidol 10 mg TID - reduced to this dose on 04/02/2023 when decanoate was started * continue venlafaxine ER 75 mg daily - started 03/28/2023 04/15/2023: * continue chlropromazine 50mg TID - increased 04/13/2023 from 25 mg BID & 50 mg QHS * continue haloperidol decanoate 200 mg HAYES - received on 04/03/2023 * continue haloperidol 10 mg TID - reduced to this dose on 04/02/2023 when decanoate was started * continue venlafaxine ER 75 mg daily - started 03/28/2023 04/14/2023: * continue chlropromazine 50mg TID - increased 04/13/2023 from 25 mg BID & 50 mg QHS * continue haloperidol decanoate 200 mg HAYES - received on 04/03/2023 * continue haloperidol 10 mg TID - reduced to this dose on 04/02/2023 when decanoate was started * continue venlafaxine ER 75 mg daily - started 03/28/2023 04/13/2023: * continue chlropromazine 25 mg QAM, 25 mg QPM, 50mg QHS - adjusted to this schedule on 04/02/2023 * continue haloperidol decanoate 200 mg HAYES - received on 04/03/2023 * continue haloperidol 10 mg TID - reduced to this dose on 04/02/2023 when decanoate was started * continue venlafaxine ER 75 mg daily - started 03/28/2023 04/12/2023: * continue chlropromazine 25 mg QAM, 25 mg QPM, 50mg QHS - adjusted to this sche dule on 04/02/2023 * continue haloperidol decanoate 200 mg HAYES - received on 04/03/2023 * continue haloperidol 10 mg TID - reduced to this dose on 04/02/2023 when decanoate was started * continue venlafaxine ER 75 mg daily - started 03/28/2023 04/11/2023: * continue chlropromazine 25 mg QAM, 25 mg QPM, 50mg QHS - adjusted to this schedule on 04/02/2023 * continue haloperidol decanoate 200 mg HAYES - received on 04/03/2023 * continue haloperidol 10 mg TID - reduced to this dose on 04/02/2023 when decanoate was started * continue venlafaxine ER 75 mg daily - started 03/28/2023 04/10/2023: * continue chlropromazine 25 mg QAM, 25 mg QPM, 50mg QHS - adjusted to this schedule on 04/02/2023 * continue haloperidol decanoate 200 mg HAYES - received on 04/03/2023 * continue haloperidol 10 mg TID - reduced to this dose on 04/02/2023 when decanoate was started * continue venlafaxine ER 75 mg daily - started 03/28/2023 04/05/2023: Additional Haldol decanoate 200mg HAYES, continue po thorazine and po haldol 04/04/2023: Continue current medications and tx plan. Consider additional dose of haldol decanoate 100-200mg HAYES tomorrow. 04/03/2023: * thorazine 25mg qAM, 25mg qdinner, 50mg HS * haldol decanoate 200mg HAYES-- received on 04/03/2023 * haldol po 10mg TID * Effexor ER 75mg daily 04/02/2023: thorazine 25 mg am and pm meal, 50 mg hs with additional 25 mg prn. Patient now agreeable to Haldol dec. Will decrease to 10 mg TID as interval increase of midday dose to 20 mg has not helped with pm breakthrough. Will load 200 mg dose today with additional 100-200 mg loading and PO Haldol taper per Dr. Smith. 04/01/2023: ortho cleared patient, he can discontinue boot at his own comfort, his residual foot deformity does not require surgery 03/28/2023: diversion meeting outcome is all community resources have been exhausted and patient will remain referred to [facility]. repeat foot x ray tomorrow. Patient desires d/c trazodone. completed quality case review with [facility] peer to peer Dr. Jimenez discussing that patient has repeatedly refused clozaril and HAYES and prefers thorazine/haldol component, current doses are best for his BP. Discussed rationale for low dose Effexor XR. Patient has become agitated/disinhibited on higher doses of antidepressants in past so I would not titrate. 03/25/2023: * Consolidate thorazine to 75mg HS * Continue haldol 10mg qAM, 20mg miday and 10mg HS 03/22/2023: * increase haloperidol to 10 mg qAM, 20mg midday and 10mg HS- started this schedule 03/22/2023 * consolidate chlorpromazine to 25mg qAM and 50mg HS 03/21/2023: * continue haloperidol 10 mg TID - started this schedule 03/03/2023 * consolidate chlorpromazine to 25mg qAM and 50mg HS 03/20/2023: * continue haloperidol 10 mg TID - started this schedule 03/03/2023 * continue chlorpromazine 25 mg TID - resumed 03/17/2023 * change cogentin from HS scheduled to HS prn use for muscle stiffness to reduce polypharmacy 03/18/2023: * continue haloperidol 10 mg TID - started this schedule 03/03/2023 * continue chlorpromazine 25 mg TID - resumed 03/17/2023 * was committed for extended treatment at 304 hearing today, plan to pursue [facility] transfer 03/17/2023: * continue haloperidol 10 mg TID - started this schedule 03/03/2023 * increase chlorpromazine to 25 mg TID * probable 304 hearing on February 03/07/2023: Start trazodone 100mg HS po. Continue haldol 10mg TID po 03/03/2023: unable to resume thorazine, offered to try splitting Haldol to TID to see if any improvement in orthostasis. 03/02/2023: The patient was admitted to the [facility] ([facility] on q15 min checks (behavioral with suicide precautions) for safety. The patient will participate in group, recreational, and milieu therapies and will be offered additional individual and family sessions as clinically appropriate. Continue to hold thorazine and monitor BP. Inventory Assets Strengths: taking PO meds, cooperative with tx plan Needs: longer term hospitalization, medical monitoring Suicide Risk Level Suicide Risk Level: Moderate (q15 min suicide checks) Suicide Risk Level Comments: The patient remains at moderate risk, primarily because of his persistent intermittent persecutory auditory hallucinations. He again reiterates that he is not experiencing suicidal thoughts, does not have any suicidal intent, and has no plan for suicide. He denies any command AH. He also convincingly assures us that he will notify staff if thoughts of self-harm emerge and has been consistently seeking out staff support when he feels overwhelmed by hallucinations. Risk Factors Assessment Male: Yes : Yes Do You Have Access To A Gun?: No Mental Health Diagnoses: Yes Previous Attempt: Yes Previous Psychiatric Hospitalization: Yes Protective Factors Assessment Employed: No Interval History Identifying Information UMBERTO DAMIAN is a 52-year-old man who lives in a [facility] with a history of schizophrenia, who eloped after returning to his care home and was found by police wandering with concern for dehydration due to hot temperatures/humidity. He is on a 304 commitment as of 03/18/2023. Chief Complaint "Having an OK day". Review of Systems Sleep Information Total Hours of Sleep: 7 Sleep Comments: 50mg of PRN Vistaril around 0225 Meal Information Percent Meal Consumed - Breakfast: 100 Percent Meal Consumed - Lunch: 100 Percent Meal Consumed - Dinner: 100 Nutrition Comment: Ate all of his meal. Subjective Subjective The patient was seen and assessed and interval progress reviewed in a multidisciplinary team meeting with the treatment team. For details, see the "Impression" section. Overall I spent a total of 19 minutes for this inpatient follow-up including review of chart records, direct evaluation of the patient [id number], counseling the patient, medication education with the patient, risk assessment, discussion during interdisciplinary treatment rounds, and documentation in the electronic health record. Physical Exam Psychiatric Orientation: alert, oriented to person, oriented to place, oriented to time and cooperative Apperance: appropriately dressed and appropriately groomed Eye Contact: good eye contact Motor Behavior: no abnormal motor movements Speech: normal rate/rhythm/volume of speech Affect: euthymic affect and mood congruent with affect Mood: + anxious mood; no depressed mood Thought Process: clear/coherent thought process and + concrete thought process Thought Content: reality based without delusions (for the most part) Suicidal Thoughts: denies suicidal thoughts, denies suicidal plan and denies suicidal intent Homicidal Thoughts: denies homicidal thoughts Hallucinations: + auditory hallucinations (intermittent) and + visual hallucinations (intermittently seeing people in trenchcoats, falling into a garden) Cognition: recent memory grossly intact, remote memory grossly intact, attention grossly intact and language grossly intact Estimated Intelligence: average estimated intelligence and consistent with education level Insight: + limited insight Judgment: + limited judgement Vital Signs (Past 24 Hours) Last Vital Signs Temp 36.6 C 05/19/23 06:00 Pulse 83 05/19/23 06:36 Resp 18 05/19/23 06:00 BP 91/61 L 05/19/23 06:36 Pulse Ox 94 05/16/23 06:55 O2 Del Method Room Air 05/16/23 06:55 Results & Data ([facility]) Current Inpatient Medications Current Inpatient Medications: Current Inpatient Medications Al Hydrox/Mg Hydrox/Simethicone (Aluminum/Magnesium Susp 30 Ml Udc) 30 ml PO Q4H PRN PRN Reason: GI Upset Stop: 06/09/23 05:14 Chlorpromazine HCl (Chlorpromazine Hcl 25 Mg Tab) 50 mg PO Q6 PRN PRN Reason: psychosis Stop: 05/31/23 18:21 Last Admin: 05/19/23 16:39 Dose: 50 mg Chlorpromazine HCl (Chlorpromazine Hcl 100 Mg Tab) 300 mg PO DAILY@2030 [facility] Stop: 05/26/23 20:29 Last Admin: 05/18/23 20:24 Dose: 300 mg Chlorpromazine HCl (Chlorpromazine Hcl 25 Mg Tab) 50 mg PO DAILY@1400 [facility] Stop: 06/15/23 13:59 Last Admin: 05/19/23 13:35 Dose: 50 mg Chlorpromazine HCl (Chlorpromazine Hcl 25 Mg Tab) 50 mg PO 0700 [facility] Stop: 06/18/23 06:59 Last Admin: 05/19/23 06:29 Dose: 50 mg Docusate Sodium (Docusate Sodium 100 Mg Cap) 200 mg PO HS [facility] Stop: 05/31/23 21:59 Last Admin: 05/18/23 20:25 Dose: 200 mg Hydroxyzine HCl (Hydroxyzine Hcl 25 Mg Tab) 25 mg PO Q4H PRN PRN Reason: Anxiety Stop: 06/09/23 05:09 Last Admin: 05/18/23 03:55 Dose: 25 mg Hydroxyzine HCl (Hydroxyzine Hcl 25 Mg Tab) 50 mg PO HSZ PRN PRN Reason: Insomnia Stop: 06/09/23 05:11 Last Admin: 05/19/23 02:54 Dose: 50 mg Magnesium Hydroxide (Magnesium Hydroxide Susp 30 Ml Udc) 30 ml PO DAILY PRN PRN Reason: Constipation Stop: 06/09/23 05:15 Miscellaneous (Pending Order) 1 each N/A Q30D@0900 [facility] Stop: 11/29/23 08:59 Perphenazine (Perphenazine 2 Mg Tablet) 8 mg PO BID [facility] Stop: 06/03/23 20:59 Last Admin: 05/19/23 08:46 Dose: 8 mg Venlafaxine HCl (Venlafaxine Hcl Xr 150 Mg Capxr) 150 mg PO QAM [facility] Stop: 06/09/23 08:59 Last Admin: 05/19/23 08:46 Dose: 150 mg Mental Health & Subst Abuse Tx Psychiatrist Name of Psychiatrist: Dr. Umberto Aviles Psychiatrist's Psychiatric Appointment Comment: Telehealth Therapist Name of Therapist: Chary Velasquez Therapist's Therapy Appointment Comment: [address] [place] [address] [id number], [place] [address] Post Discharge Appointments Primary Care Physician Name Of Family Doctor/PCP: You Brooks (1) Schizophrenia Schizophrenia type: unspecified Qualified Code(s): F20.9 - Schizophrenia, unspecified
[2023-05-20] MEDS: hydrOXYzine HCl 25 MG TAB PO PRN (04:36)
[2023-05-20] MEDS: chlorproMAZINE HCL 25 MG TAB PO SCH ×2 (06:32→14:03)
[2023-05-20] MEDS: PERPHENAZINE 2 MG TAB PO SCH ×2 (09:00→20:35)
[2023-05-20] MEDS: VENLAFAXINE HCL XR 150 MG CAPXR PO SCH (09:00)
--- NOTE | 2023-05-20 10:41 | Psychiatric Progress Note ---
Date of Service May 20, 2023 Impression / Recommendations Impression 52 yo man with schizophrenia with multiple recent psychiatric hospitalizations after each has eloped from his skilled nursing. On 304 commitment and accepted to [facility]. No current bed date. MNPR due to psychosis and limited ability to tolerate peers and hx of aggression with delusions 05/20/2023: After I met with pt yesterday he began reporting to staff increased hallucinations and distress about them. He told them that I'd ordered a change in his medication (which is not only not the case, but in light of how well he seemed to be doing we'd discussed NOT making any changes). This morning he says he thinks it's helped to have moved AM chlorpromazine to 0700. Some staff pointed out that that's when it had initially been ordered and that some time ago he asked if it could be consolidated with his other morning medications. 05/19/2023: Requested to take AM chlorpromazine at 0700 rather than 0900 to minimize sedation that he finds detract from participation in morning groups. This seems eminently reasonable. Otherwise he reports no change and continues to do fairly well while awaiting a [facility] bed. 05/18/2023: Reports no change from recent baseline, including any new or worse symptoms nor any adverse medication effects. Comments on the construction going on outside, progress of which he's been following outside his window. 05/17/2023: Pleasant, appropriate. Offers no complaints nor reports of any adverse medication effects. He asks if I have any news of how long it might be before a bed would be available at the [facility], which unfortunately I don't. 05/16/2023: More comfortable today. Has not sought any change in medication nor requested any PRN's and is less anxious about the increase in venlafaxine XR. No adverse effect attributable to any of his medications. Has been participating appropriately in the milieu and groups. 05/15/2023: Pt became apprehensive yesterday about the increase in venlafaxine XR from 75 mg to 150 mg 3 days previously (ordered 05/09/2023, first increased dose 05/10/2023). He didn't actually report any adverse effect at all, but seemed to take this as an indication that he was doing worse. Reminded him that we'd previously discussed that the 75 mg dose is quite low and that doses of 225 mg and higher are usually required for optimal effect, especially for anxiety. Yesterday evening pt requested "more Trilafon" shortly after getting PRN chlorpromazine. Has frequently requested chlorpromazine today. When I ask reason for this, pt says he feels as if he needs more medication, but denies any new or worse symptoms, including any worsening in psychosis. My sense is that his anxieties about ensuring his treatment is adequate are being exacerbated because every other patient currently admitted is very anxious and all have obsessive- compulsive symptoms centering around medication. 05/14/2023: Says he's "doing pretty good" and reports that chronic hallucinations are below baseline level and not bothering him. Reports no adverse medication effects. Asks about going for a walk with staff (to which he's entitled per policy contingent on staff availability). 05/13/2023: Reports that he's "doing good" with "not much of hallucinations". Again voices apprehension about whether I will change his regimen of 3 antipsychotics. Denies any side effects. 05/12/2023: Says that he's "having another really good day" thus far today. He reports minimal hallucinations, saying "I don't really notice them that much if I don't think about them". Asks "you're not going to change the medication, are you?", expressing awareness of our several previous discussions about the strong recommendation in general to avoid multiple antipsychotic medications. 05/11/2023: Pt reports he's "having another good day" with minimal hallucinati ons. Accurately anticipates that I'll want to discuss his being on 3 antipsychotics, 2 of them phenothiazines, with a goal of formulating a plan to transition to either chlorpromazine alone or perphenazine alone, but not both. He says he feels as if he's doing very well and is fearful of relapse. He and I have already concluded that available evidence strongly supports that, for some reason, he has never done well on monotherapy with anything and has done best when on both haloperidol and chlorpromazine (the only phenothiazine he appears to have taken in the past). 05/10/2023: Reports "feeling a lot better today" and reports "the hallucinations are back under control". Discussed that this improved with no change in medication, repeating my opinion that medication changes are best avoided unless necessary but that use of 4 antipsychotics is deprecated. Pt emphasizes that he's very happy with how he's doing right now and really doesn't want to change the regimen. 05/09/2023: Reports "having a bad day" with more prominent, distressing visual hallucinations of "dark" figures experienced as nefarious and threatening. I'm very loath to change antipsychotic regimen right now given history of worsened psychosis with most medication changes. A record review undertaken by RN reveals a fairly strong pattern of 2-3 day periods of worsened psychosis every 2-3 weeks seemingly unrelated to whether antipsychotic regimen is changed or not. I note that venlafaxine dose is unusually low and suspect that anxiety would respond to dose more in the usual therapeutic range of ~225 mg/day. 05/08/2023: Reports "feeling OK" today, with "just little hallucinations now and then". However, there have been multiple medication changes since I last saw him 3 weeks ago and he's not on perphenazine in addition to chlorpromazine and depot haloperidol. Oral haloperidol has finally been eliminated. He says he's tolerating this regimen well. He tells me he doesn't think he's taken perphenazine ("Trilafon") before. His current chlorpromazine dose totalling 400 mg/day remains low compared to typical monotherapy doses in the 600 to 800 mg/day range but there's been a sense that it might have caused hypotension (not currently seen) in the past. Since perphenazine is, like chlorpromazine, a phenothiazine (albeit of medium rather than low potency), selecting one would appear prudent. By history as related by pt and reflected in the record, pt has done best when on both haloperidol and chlorpromazine in the past and has failed numerous trial of alternate agents. However, there's also a strong correlation between medication changes and symptoms exacerbation so I'm loath to change the phenothiazines just out of preference to minimize antipsychotics since he's currently doing well. I'll attempt to determine whether he's been documented as having taken perphenazine before. 05/07/23: Mood remains stable today, ongoing lessening of hallucination intensity since introduction of Trilafon. Tolerating Trilafon and other psychiatric medications without any side effects. [facility] Schizophrenia: Plan 05/20/2023: * continue perphenazine 8 mg BID (see notes in Impression re: use of 3 antipsychotics) - started on 05/04/2023 * continue chlorpromazine 50 mg QAM, 50 mg midday, and 300 mg QHS - increased 04/26/2023 from 50 mg BID & 100 mg QHS * continue venlafaxine ER 150 mg daily - increased 05/09/2023 to 150 mg, started 03/28/2023 at 75 mg * continue haloperidol decanoate total of 400 mg HAYES over two days - received on 05/04/2023 and 05/05/2023 * await [facility] bed (he's on the wait list) 05/19/2023: * continue perphenazine 8 mg BID (see notes in Impression re: use of 3 antipsychotics) - started on 05/04/2023 * continue chlorpromazine 50 mg QAM, 50 mg midday, and 300 mg QHS - increased 04/26/2023 from 50 mg BID & 100 mg QHS * continue venlafaxine ER 150 mg daily - increased 05/09/2023 to 150 mg, started 03/28/2023 at 75 mg * continue haloperidol decanoate total of 400 mg HAYES over two days - received on 05/04/2023 and 05/05/2023 * await [facility] bed (he's on the wait list) 05/18/2023: * continue perphenazine 8 mg BID (see notes in Impression re: use of 3 antipsychotics) - started on 05/04/2023 * continue chlorpromazine 50 mg QAM, 50 mg midday, and 300 mg QHS - increased 04/26/2023 from 50 mg BID & 100 mg QHS * continue venlafaxine ER 150 mg daily - increased 05/09/2023 to 150 mg, started 03/28/2023 at 75 mg * continue haloperidol decanoate total of 400 mg HAYES over two days - received on 05/04/2023 and 05/05/2023 * await [facility] bed (he's on the wait list) 05/17/2023: * continue perphenazine 8 mg BID (see notes in Impression re: use of 3 antipsychotics) - started on 05/04/2023 * continue chlorpromazine 50 mg QAM, 50 mg midday, and 300 mg QHS - increased 04/26/2023 from 50 mg BID & 100 mg QHS * continue venlafaxine ER 150 mg daily - increased 05/09/2023 to 150 mg, started 03/28/2023 at 75 mg * continue haloperidol decanoate total of 400 mg HAYES over two days - received on 05/04/2023 and 05/05/2023 * [facility] bed (he's on the wait list) 05/16/2023: * continue perphenazine 8 mg BID (see notes in Impression re: use of 3 antipsychotics) - started on 05/04/2023 * continue chlorpromazine 50 mg QAM, 50 mg midday, and 300 mg QHS - increased 04/26/2023 from 50 mg BID & 100 mg QHS * continue venlafaxine ER 150 mg daily - increased 05/09/2023 to 150 mg, started 03/28/2023 at 75 mg * continue haloperidol decanoate total of 400 mg HAYES over two days - received on 05/04/2023 and 05/05/2023 * [facility] bed (he's on the wait list) 05/15/2023: * continue perphenazine 8 mg BID (see notes in Impression re: use of 3 antipsychotics) - started on 05/04/2023 * continue chlorpromazine 50 mg QAM, 50 mg midday, and 300 mg QHS - increased 04/26/2023 from 50 mg BID & 100 mg QHS * continue venlafaxine ER 150 mg daily - increased 05/09/2023 to 150 mg, started 03/28/2023 at 75 mg * continue haloperidol decanoate total of 400 mg HAYES over two days - received on 05/04/2023 and 05/05/2023 * [facility] bed (he's on the wait list) 05/14/2023: * continue perphenazine 8 mg BID (see notes in Impression re: use of 3 antipsychotics) - started on 05/04/2023 * continue chlorpromazine 50 mg QAM, 50 mg midday, and 300 mg QHS - increased 04/26/2023 from 50 mg BID & 100 mg QHS * continue venlafaxine ER 150 mg daily - increased 05/09/2023 to 150 mg, started 03/28/2023 at 75 mg * continue haloperidol decanoate total of 400 mg HAYES over two days - received on 05/04/2023 and 05/05/2023 * [facility] bed (he's on the wait list) 05/13/2023: * continue perphenazine 8 mg BID (see notes in Impression re: use of 3 antipsychotics) - started on 05/04/2023 * continue chlorpromazine 50 mg QAM, 50 mg midday, and 300 mg QHS - increased 04/26/2023 from 50 mg BID & 100 mg QHS * continue venlafaxine ER 150 mg daily - increased 05/09/2023 to 150 mg, started 03/28/2023 at 75 mg * continue haloperidol decanoate total of 400 mg HAYES over two days - received on 05/04/2023 and 05/05/2023 * [facility] bed (he's on the wait list) 05/12/2023: * continue perphenazine 8 mg BID (see notes in Impression re: use of 3 antipsychotics) - started on 05/04/2023 * continue chlorpromazine 50 mg QAM, 50 mg midday, and 300 mg QHS - increased 04/26/2023 from 50 mg BID & 100 mg QHS * continue venlafaxine ER 150 mg daily - increased 05/09/2023 to 150 mg, started 03/28/2023 at 75 mg * continue haloperidol decanoate total of 400 mg HAYES over two days - received on 05/04/2023 and 05/05/2023 * [facility] bed (he's on the wait list) 05/11/2023: * continue perphenazine 8 mg BID (see notes in Impression re: use of 3 antipsychotics) - started on 05/04/2023 * continue chlorpromazine 50 mg QAM, 50 mg midday, and 300 mg QHS - increased 04/26/2023 from 50 mg BID & 100 mg QHS * continue venlafaxine ER 150 mg daily - increased 05/09/2023 to 150 mg, started 03/28/2023 at 75 mg * continue haloperidol decanoate total of 400 mg HAYES over two days - received on 05/04/2023 and 05/05/2023 05/10/2023: * continue perphenazine 8 mg BID for now despite concern about use of 2 phe nothiazines and 3 total antipsychotics - started on 05/04/2023 * continue chlorpromazine 50 mg QAM, 50 mg midday, and 300 mg QHS - increased 04/26/2023 from 50 mg BID & 100 mg QHS * continue venlafaxine ER 150 mg daily - increased 05/09/2023 to 150 mg, started 03/28/2023 at 75 mg * continue haloperidol decanoate total of 400 mg HAYES over two days - received on 05/04/2023 and 05/05/2023 05/09/2023: * continue perphenazine 8 mg BID for now despite concern about use of 2 phenothiazines and 3 total antipsychotics - started on 05/04/2023 * continue chlorpromazine 50 mg QAM, 50 mg midday, and 300 mg QHS - increased 04/26/2023 from 50 mg BID & 100 mg QHS * increase venlafaxine ER 75 mg daily - started 03/28/2023 * continue haloperidol decanoate total of 400 mg HAYES over two days - received on 05/04/2023 and 05/05/2023 05/08/2023: * continue perphenazine 8 mg BID, though I'm fairly concerned about the use of 2 phenothiazines and 3 total antipsychotics - started on 05/04/2023 * continue chlorpromazine 50 mg QAM, 50 mg midday, and 300 mg QHS - increased 04/26/2023 from 50 mg BID & 100 mg QHS * continue venlafaxine ER 75 mg daily - started 03/28/2023 * continue haloperidol decanoate total of 400mg HAYES over two days; 200 mg HAYES - received on 05/04/2023 and 05/05/2023 05/07/2023: * Trilafon 8mg BID po --started on 05/04/2023 * Continue thorazine 50mg qAM, 50mg qafternoon and 300mg HS --increased on 04/26/2023 * continue venlafaxine ER 75 mg daily - started 03/28/2023 * continue haloperidol decanoate total of 400mg HAYES over two days; 200 mg HAYES - received on 05/04/2023 and 05/05/2023 05/06/2023: * Trilafon 8mg BID po --started on 05/04/2023 * Continue thorazine 50mg qAM, 50mg qafternoon and 300mg HS --increased on 04/26/2023 * continue venlafaxine ER 75 mg daily - started 03/28/2023 * continue haloperidol decanoate total of 400mg HAYES over two days; 200 mg HAYES - received on 05/04/2023 and 05/05/2023 05/05/2023: * Trilafon 8mg BID po --started on 05/04/2023 * Continue thorazine 50mg qAM, 50mg qafternoon and 300mg HS --increased on 04/26/2023 * continue venlafaxine ER 75 mg daily - started 03/28/2023 * continue haloperidol decanoate total of 400mg HAYES over two days; 200 mg HAYES - received on 05/04/2023 and 05/05/2023 05/02/2023: * Discontinue haldol po * Start risperidone 1mg BID with 0.5mg BID prn for hallucinations * Continue thorazine 50mg qAM, 50mg qafternoon and 300mg HS --increased on 04/26/2023 * continue venlafaxine ER 75 mg daily - started 03/28/2023 * continue haloperidol decanoate total of 400mg HAYES over two days; 200 mg HAYES - received on 04/03/2023 and additional 200mg HAYES - received on 04/05/2023; likely will hold off on next dose pending risperidone trial 04/28/2023: continue current meds and tx plan, discussed Depakote augmentation if fails to make steady improvement. 04/27/2023: slow rate of Haldol taper--resume 10 mg BID meals and monitor BP on higher dose of thorazine. If symptoms persist, he may be agreeable to trial of clozaril in place of thorazine and/or depakote. Still a week out from Haldol dec. 04/26/2023: titrate hs thorazine, continue Haldol taper (oral, patient received dec) due on or before 05/05/23. 04/25/2023: d/c hs Haldol in favor of increase in thorazine to 200 mg hs. monitor for orthostasis 04/23/2023: * Chlorpromazine 50mg qAM and 50mg qafternoon and 100mg HS - increased 04/21/2023 from 50mg HS to 100mg HS * continue haloperidol decanoate total of 400mg HAYES over two days; 200 mg HAYES - received on 04/03/2023 and additional 200mg HAYES - received on 04/05/2023 * increase haloperidol po back to 10mg TID - reduced to 5 TID on 04/21/2023 with worsening hallucinations, previously reduced to 10mg TID dose on 04/02/2023 when decanoate was started * continue venlafaxine ER 75 mg daily - started 03/28/2023 04/21/2023: * Chlorpromazine 50mg qAM and 50mg qafternoon and 100mg HS - increased 04/21/2023 from 50mg HS to 100mg HS * continue haloperidol decanoate total of 400mg HAYES over two days; 200 mg HAYES - received on 04/03/2023 and additional 200mg HAYES - received on 04/05/2023 * decrease haloperidol po to 5 mg TID - reduced from 10 mg TID, previously reduced to 10mg TID dose on 04/02/2023 when decanoate was started * continue venlafaxine ER 75 mg daily - started 03/28/2023 04/17/2023: * continue chlropromazine 50mg TID - increased 04/13/2023 from 25 mg BID & 50 mg QHS * continue haloperidol decanoate total of 400mg HAYES over two days; 200 mg HAYES - received on 04/03/2023 and additional 200mg HAYES - received on 04/05/2023 * continue haloperidol 10 mg TID - reduced to this dose on 04/02/2023 when decanoate was started * continue venlafaxine ER 75 mg daily - started 03/28/2023 04/16/2023: * continue chlropromazine 50mg TID - increased 04/13/2023 from 25 mg BID & 50 mg QHS * continue haloperidol decanoate 200 mg HAYES - received on 04/03/2023 * continue haloperidol 10 mg TID - reduced to this dose on 04/02/2023 when decanoate was started * continue venlafaxine ER 75 mg daily - started 03/28/2023 04/15/2023: * continue chlropromazine 50mg TID - increased 04/13/2023 from 25 mg BID & 50 mg QHS * continue haloperidol decanoate 200 mg HAYES - received on 04/03/2023 * continue haloperidol 10 mg TID - reduced to this dose on 04/02/2023 when decanoate was started * continue venlafaxine ER 75 mg daily - started 03/28/2023 04/14/2023: * continue chlropromazine 50mg TID - increased 04/13/2023 from 25 mg BID & 50 mg QHS * continue haloperidol decanoate 200 mg HAYES - received on 04/03/2023 * continue haloperidol 10 mg TID - reduced to this dose on 04/02/2023 when decanoate was started * continue venlafaxine ER 75 mg daily - started 03/28/2023 04/13/2023: * continue chlropromazine 25 mg QAM, 25 mg QPM, 50mg QHS - adjusted to this schedule on 04/02/2023 * continue haloperidol decanoate 200 mg HAYES - received on 04/03/2023 * continue haloperidol 10 mg TID - reduced to this dose on 04/02/2023 when decanoate was started * continue venlafaxine ER 75 mg daily - started 03/28/2023 04/12/2023: * continue chlropromazine 25 mg QAM, 25 mg QPM, 50mg QHS - adjusted to this schedule on 04/02/2023 * continue haloperidol decanoate 200 mg HAYES - received on 04/03/2023 * continue haloperidol 10 mg TID - reduced to this dose on 04/02/2023 when decanoate was started * continue venlafaxine ER 75 mg daily - started 03/28/2023 04/11/2023: * continue chlropromazine 25 mg QAM, 25 mg QPM, 50mg QHS - adjusted to this schedule on 04/02/2023 * continue haloperidol decanoate 200 mg HAYES - received on 04/03/2023 * continue haloperidol 10 mg TID - reduced to this dose on 04/02/2023 when decanoate was started * continue venlafaxine ER 75 mg daily - started 03/28/2023 04/10/2023: * continue chlropromazine 25 mg QAM, 25 mg QPM, 50mg QHS - adjusted to this schedule on 04/02/2023 * continue haloperidol decanoate 200 mg HAYES - received on 04/03/2023 * continue haloperidol 10 mg TID - reduced to this dose on 04/02/2023 when decanoate was started * continue venlafaxine ER 75 mg daily - started 03/28/2023 04/05/2023: Additional Haldol decanoate 200mg HAYES, continue po thorazine and po haldol 04/04/2023: Continue current medications and tx plan. Consider additional dose of haldol decanoate 100-200mg HAYES tomorrow. 04/03/2023: * thorazine 25mg qAM, 25mg qdinner, 50mg HS * haldol decanoate 200mg HAYES-- received on 04/03/2023 * haldol po 10mg TID * Effexor ER 75mg daily 04/02/2023: thorazine 25 mg am and pm meal, 50 mg hs with additional 25 mg prn. Patient now agreeable to Haldol dec. Will decrease to 10 mg TID as interval increase of midday dose to 20 mg has not helped with pm breakthrough. Will load 200 mg dose today with additional 100-200 mg loading and PO Haldol taper per Dr. Smith. 04/01/2023: ortho cleared patient, he can discontinue boot at his own comfort, his residual foot deformity does not require surgery 03/28/2023: diversion meeting outcome is all community resources have been exhausted and patient will remain referred to [facility]. repeat foot x ray tomorrow. Patient desires d/c trazodone. completed quality case review with [facility] peer to peer Dr. Jimenez discussing that patient has repeatedly refused clozaril and HAYES and prefers thorazine/haldol component, current doses are best for his BP. Discussed rationale for low dose Effexor XR. Patient has become agitated/disinhibited on higher doses of antidepressants in past so I would not titrate. 03/25/2023: * Consolidate thorazine to 75mg HS * Continue haldol 10mg qAM, 20mg miday and 10mg HS 03/22/2023: * increase haloperidol to 10 mg qAM, 20mg midday and 10mg HS- started this schedule 03/22/2023 * consolidate chlorpromazine to 25mg qAM and 50mg HS 03/21/2023: * continue haloperidol 10 mg TID - started this schedule 03/03/2023 * consolidate chlorpromazine to 25mg qAM and 50mg HS 03/20/2023: * continue haloperidol 10 mg TID - started this schedule 03/03/2023 * continue chlorpromazine 25 mg TID - resumed 03/17/2023 * change cogentin from HS scheduled to HS prn use for muscle stiffness to reduce polypharmacy 03/18/2023: * continue haloperidol 10 mg TID - started this schedule 03/03/2023 * continue chlorpromazine 25 mg TID - resumed 03/17/2023 * was committed for extended treatment at 304 hearing today, plan to pursue [facility] transfer 03/17/2023: * continue haloperidol 10 mg TID - started this schedule 03/03/2023 * increase chlorpromazine to 25 mg TID * probable 304 hearing on February 03/07/2023: Start trazodone 100mg HS po. Continue haldol 10mg TID po 03/03/2023: unable to resume thorazine, offered to try splitting Haldol to TID to see if any improvement in orthostasis. 03/02/2023: The patient was admitted to the [facility] ([facility] inpatient mental health unit) on q15 min checks (behavioral with suicide precautions) for safety. The patient will participate in group, recreational, and milieu therapies and will be offered additional individual and family sessions as clinically appropriate. Continue to hold thorazine and monitor BP. Inventory Assets Strengths: taking PO meds, cooperative with tx plan Needs: longer term hospitalization, medical monitoring Suicide Risk Level Suicide Risk Level: Moderate (q15 min suicide checks) Suicide Risk Level Comments: The patient remains at moderate risk, primarily because of his persistent intermittent persecutory auditory hallucinations. He again reiterates that he is not experiencing suicidal thoughts, does not have any suicidal intent, and has no plan for suicide. He denies any command AH. He also convincingly assures us that he will notify staff if thoughts of self-harm emerge and has been consistently seeking out staff support when he feels overwhelmed by hallucinations. Risk Factors Assessment Male: Yes : Yes Do You Have Access To A Gun?: No Mental Health Diagnoses: Yes Previous Attempt: Yes Previous Psychiatric Hospitalization: Yes Protective Factors Assessment Employed: No Interval History Identifying Information UMBERTO DAMIAN is a 52-year-old man who lives in a [place] [facility] skilled nursing with a history of schizophrenia, who eloped after returning to his skilled nursing and was found by police wandering with concern for dehydration due to hot temperatures/humidity. He is on a 304 commitment as of 03/18/2023. Chief Complaint "Better today". Review of Systems Sleep Information Total Hours of Sleep: 7 Sleep Comments: 50mg of PRN Vistaril around 0225 Meal Information Percent Meal Consumed - Breakfast: 100 Percent Meal Consumed - Lunch: 100 Percent Meal Consumed - Dinner: 100 Nutrition Comment: Ate all of his meal. Subjective Subjective The patient was seen and assessed and interval progress reviewed in a multidisciplinary team meeting with the treatment team. For details, see the "Impression" section. Overall I spent a total of 24 minutes for this inpatient follow-up including review of chart records, direct evaluation of the patient [id number], counseling the patient, medication education with the patient, risk assessment, discussion during interdisciplinary treatment rounds, and documentation in the electronic health record. Physical Exam Psychiatric Orientation: alert, oriented to person, oriented to place, oriented to time and cooperative Apperance: appropriately dressed and appropriately groomed Eye Contact: + fair eye contact Motor Behavior: no abnormal motor movements Speech: normal rate/rhythm/volume of speech Affect: + anxious affect, + constricted affect (but with a smile) and mood congruent with affect; no depressed affect Mood: + anxious mood; no depressed mood Thought Process: clear/coherent thought process and + concrete thought process Thought Content: reality based without delusions (for the most part) Suicidal Thoughts: denies suicidal thoughts, denies suicidal plan and denies suicidal intent Homicidal Thoughts: denies homicidal thoughts Hallucinations: + auditory hallucinations (intermittent) and + visual hallucinations (intermittently seeing people in trenchcoats, falling into a garden) Cognition: recent memory grossly intact, remote memory grossly intact, attention grossly intact and language grossly intact Estimated Intelligence: average estimated intelligence and consistent with education level Insight: + limited insight Judgment: + limited judgement Vital Signs (Past 24 Hours) Last Vital Signs Temp 36.8 C 05/20/23 06:00 Pulse 98 H 05/20/23 06:38 Resp 16 05/20/23 06:00 BP 93/70 L 05/20/23 06:38 Pulse Ox 94 05/16/23 06:55 O2 Del Method Room Air 05/16/23 06:55 Results & Data ([facility]) Current Inpatient Medications Current Inpatient Medications: Current Inpatient Medications Al Hydrox/Mg Hydrox/Simethicone (Aluminum/Magnesium Susp 30 Ml Udc) 30 ml PO Q4H PRN PRN Reason: GI Upset Stop: 06/09/23 05:14 Chlorpromazine HCl (Chlorpromazine Hcl 25 Mg Tab) 50 mg PO Q6 PRN PRN Reason: psychosis Stop: 05/31/23 18:21 Last Admin: 05/19/23 22:13 Dose: 50 mg Chlorpromazine HCl (Chlorpromazine Hcl 100 Mg Tab) 300 mg PO DAILY@2030 [facility] Stop: 05/26/23 20:29 Last Admin: 05/19/23 19:34 Dose: 300 mg Chlorpromazine HCl (Chlorpromazine Hcl 25 Mg Tab) 50 mg PO DAILY@1400 [facility] Stop: 06/15/23 13:59 Last Admin: 05/19/23 13:35 Dose: 50 mg Chlorpromazine HCl (Chlorpromazine Hcl 25 Mg Tab) 50 mg PO 0700 [facility] Stop: 06/18/23 06:59 Last Admin: 05/20/23 06:32 Dose: 50 mg Docusate Sodium (Docusate Sodium 100 Mg Cap) 200 mg PO HS [facility] Stop: 05/31/23 21:59 Last Admin: 05/19/23 19:37 Dose: 200 mg Hydroxyzine HCl (Hydroxyzine Hcl 25 Mg Tab) 25 mg PO Q4H PRN PRN Reason: Anxiety Stop: 06/09/23 05:09 Last Admin: 05/20/23 04:36 Dose: 25 mg Hydroxyzine HCl (Hydroxyzine Hcl 25 Mg Tab) 50 mg PO HSZ PRN PRN Reason: Insomnia Stop: 06/09/23 05:11 Last Admin: 05/19/23 02:54 Dose: 50 mg Magnesium Hydroxide (Magnesium Hydroxide Susp 30 Ml Udc) 30 ml PO DAILY PRN PRN Reason: Constipation Stop: 06/09/23 05:15 Miscellaneous (Pending Order) 1 each N/A Q30D@0900 [facility] Stop: 11/29/23 08:59 Perphenazine (Perphenazine 2 Mg Tablet) 8 mg PO BID JOSEMANUEL Stop: 06/03/23 20:59 Last Admin: 05/20/23 09:00 Dose: 8 mg Venlafaxine HCl (Venlafaxine Hcl Xr 150 Mg Capxr) 150 mg PO QAM JOSEMANUEL Stop: 06/09/23 08:59 Last Admin: 05/20/23 09:00 Dose: 150 mg Mental Health & Subst Abuse Tx Psychiatrist Name of Psychiatrist: Dr. Umberto Aviles Psychiatrist's Psychiatric Appointment Comment: Telehealth Therapist Name of Therapist: Chary Velasquez Therapist's Therapy Appointment Comment: [address] [place] [address] [id number], [place] [address] Post Discharge Appointments Primary Care Physician Name Of Family Doctor/PCP: You Brooks (1) Schizophrenia Schizophrenia type: unspecified Qualified Code(s): F20.9 - Schizophrenia, unspecified
[2023-05-20] MEDS: chlorproMAZINE HCL 25 MG TAB PO PRN (11:35)
[2023-05-20] MEDS: DOCUSATE SODIUM 100 MG CAP PO SCH (20:36)
[2023-05-21] MEDS: chlorproMAZINE HCL 25 MG TAB PO PRN (00:23)
[2023-05-21] MEDS: chlorproMAZINE HCL 25 MG TAB PO SCH ×2 (06:35→14:04)
[2023-05-21] MEDS: VENLAFAXINE HCL XR 150 MG CAPXR PO SCH (08:41)
[2023-05-21] MEDS: PERPHENAZINE 2 MG TAB PO SCH ×3 (08:41→20:32)
--- NOTE | 2023-05-21 16:57 | Psychiatric Progress Note ---
Date of Service May 21, 2023 Impression / Recommendations Impression 52 yo man with schizophrenia with multiple recent psychiatric hospitalizations after each has eloped from his residential. On 304 commitment and accepted to [facility]. No current bed date. [facility] due to psychosis and limited ability to tolerate peers and hx of aggression with delusions 05/21/2023: Reports an "OK day", but is somewhat preoccupied with a desire to increase perphenazine. He notes that "afternoons can get bad", and he has been requesting PRN chlorpromazine in the afternoons. Discussed adding afternoon perphenazine at 1400 to see if this reduces need for PRN, as well as potentially to start transition to perphenazine as his sole phenothiazine. 05/20/2023: After I met with pt yesterday he began reporting to staff increased hallucinations and distress about them. He told them that I'd ordered a change in his medication (which is not only not the case, but in light of how well he seemed to be doing we'd discussed NOT making any changes). This morning he says he thinks it's helped to have moved AM chlorpromazine to 0700. Some staff pointed out that that's when it had initially been ordered and that some time ago he asked if it could be consolidated with his other morning medications. 05/19/2023: Requested to take AM chlorpromazine at 0700 rather than 0900 to minimize sedation that he finds detract from participation in morning groups. This seems eminently reasonable. Otherwise he reports no change and continues to do fairly well while awaiting a [facility] bed. 05/18/2023: Reports no change from recent baseline, including any new or worse symptoms nor any adverse medication effects. Comments on the construction going on outside, progress of which he's been following outside his window. 05/17/2023: Pleasant, appropriate. Offers no complaints nor reports of any a dverse medication effects. He asks if I have any news of how long it might be before a bed would be available at the [facility], which unfortunately I don't. 05/16/2023: More comfortable today. Has not sought any change in medication nor requested any PRN's and is less anxious about the increase in venlafaxine XR. No adverse effect attributable to any of his medications. Has been participating appropriately in the milieu and groups. 05/15/2023: Pt became apprehensive yesterday about the increase in venlafaxine XR from 75 mg to 150 mg 3 days previously (ordered 05/09/2023, first increased dose 05/10/2023). He didn't actually report any adverse effect at all, but seemed to take this as an indication that he was doing worse. Reminded him that we'd previously discussed that the 75 mg dose is quite low and that doses of 225 mg and higher are usually required for optimal effect, especially for anxiety. Yesterday evening pt requested "more Trilafon" shortly after getting PRN chlorpromazine. Has frequently requested chlorpromazine today. When I ask reason for this, pt says he feels as if he needs more medication, but denies any new or worse symptoms, including any worsening in psychosis. My sense is that his anxieties about ensuring his treatment is adequate are being exacerbated because every other patient currently admitted is very anxious and all have obsessive- compulsive symptoms centering around medication. 05/14/2023: Says he's "doing pretty good" and reports that chronic hallucinations are below baseline level and not bothering him. Reports no adverse medication effects. Asks about going for a walk with staff (to which he's entitled per policy contingent on staff availability). 05/13/2023: Reports that he's "doing good" with "not much of hallucinations". Again voices apprehension about whether I will change his regimen of 3 antipsychotics. Denies any side effects. 05/12/2023: Says that he's "having another really good day" thus far today. He reports minimal hallucinations, saying "I don't really notice them that much if I don't think about them". Asks "you're not going to change the medication, are you?", expressing awareness of our several previous discussions about the strong recommendation in general to avoid multiple antipsychotic medications. 05/11/2023: Pt reports he's "having another good day" with minimal hallucinations. Accurately anticipates that I'll want to discuss his being on 3 antipsychotics, 2 of them phenothiazines, with a goal of formulating a plan to transition to either chlorpromazine alone or perphenazine alone, but not both. He says he feels as if he's doing very well and is fearful of relapse. He and I have already concluded that available evidence strongly supports that, for some reason, he has never done well on monotherapy with anything and has done best when on both haloperidol and chlorpromazine (the only phenothiazine he appears to have taken in the past). 05/10/2023: Reports "feeling a lot better today" and reports "the hallucinations are back under control". Discussed that this improved with no change in medication, repeating my opinion that medication changes are best avoided unless necessary but that use of 4 antipsychotics is deprecated. Pt emphasizes that he's very happy with how he's doing right now and really doesn't want to change the regimen. 05/09/2023: Reports "having a bad day" with more prominent, distressing visual hallucinations of "dark" figures experienced as nefarious and threatening. I'm very loath to change antipsychotic regimen right now given history of worsened psychosis with most medication changes. A record review undertaken by RN reveals a fairly strong pattern of 2-3 day periods of worsened psychosis every 2-3 weeks seemingly unrelated to whether antipsychotic regimen is changed or not. I note that venlafaxine dose is unusually low and suspect that anxiety would respond to dose more in the usual therapeutic range of ~225 mg/day. 05/08/2023: Reports "feeling OK" today, with "just little hallucinations now and then". However, there have been multiple medication changes since I last saw him 3 weeks ago and he's not on perphenazine in addition to chlorpromazine and depot haloperidol. Oral haloperidol has finally been eliminated. He says he's tolerating this regimen well. He tells me he doesn't think he's taken perphenazine ("Trilafon") before. His current chlorpromazine dose totalling 400 mg/day remains low compared to typical monotherapy doses in the 600 to 800 mg/day range but there's been a sense that it might have caused hypotension (not currently seen) in the past. Since perphenazine is, like chlorpromazine, a phenothiazine (albeit of medium rather than low potency), selecting one would appear prudent. By history as related by pt and reflected in the record, pt has done best when on both haloperidol and chlorpromazine in the past and has failed numerous trial of alternate agents. However, there's also a strong correlation between medication changes and symptoms exacerbation so I'm loath to change the phenothiazines just out of preference to minimize antipsychotics since he's currently doing well. I'll attempt to determine whether he's been documented as having taken perphenazine before. 05/07/23: Mood remains stable today, ongoing lessening of hallucination intensity since introduction of Trilafon. Tolerating Trilafon and other psychiatric medications without any side effects. Awaiting [facility] placement (1) Schizophrenia: Plan 05/21/2023: * increase perphenazine 8 mg BID and 2 mg daily at 1400 (see notes in Impression re: use of 3 antipsychotics) - started on 05/04/2023 * continue chlorpromazine 50 mg QAM, 50 mg midday, and 300 mg QHS - increased 04/26/2023 from 50 mg BID & 100 mg QHS * continue venlafaxine ER 150 mg daily - increased 05/09/2023 to 150 mg, started 03/28/2023 at 75 mg * continue haloperidol decanoate total of 400 mg HAYES over two days - received on 05/04/2023 and 05/05/2023 * await [facility] bed (he's on the wait list) 05/20/2023: * continue perphenazine 8 mg BID (see notes in Impression re: use of 3 antipsychotics) - started on 05/04/2023 * continue chlorpromazine 50 mg QAM, 50 mg midday, and 300 mg QHS - increased 04/26/2023 from 50 mg BID & 100 mg QHS * continue venlafaxine ER 150 mg daily - increased 05/09/2023 to 150 mg, started 03/28/2023 at 75 mg * continue haloperidol decanoate total of 400 mg HAYES over two days - received on 05/04/2023 and 05/05/2023 * await [facility] bed (he's on the wait list) 05/19/2023: * continue perphenazine 8 mg BID (see notes in Impression re: use of 3 antipsychotics) - started on 05/04/2023 * continue chlorpromazine 50 mg QAM, 50 mg midday, and 300 mg QHS - increased 04/26/2023 from 50 mg BID & 100 mg QHS * continue venlafaxine ER 150 mg daily - increased 05/09/2023 to 150 mg, started 03/28/2023 at 75 mg * continue haloperidol decanoate total of 400 mg HAYES over two days - received on 05/04/2023 and 05/05/2023 * [facility] bed (he's on the wait list) 05/18/2023: * continue perphenazine 8 mg BID (see notes in Impression re: use of 3 antipsychotics) - started on 05/04/2023 * continue chlorpromazine 50 mg QAM, 50 mg midday, and 300 mg QHS - increased 04/26/2023 from 50 mg BID & 100 mg QHS * continue venlafaxine ER 150 mg daily - increased 05/09/2023 to 150 mg, started 03/28/2023 at 75 mg * continue haloperidol decanoate total of 400 mg HAYES over two days - received on 05/04/2023 and 05/05/2023 * [facility] bed (he's on the wait list) 05/17/2023: * continue perphenazine 8 mg BID (see notes in Impression re: use of 3 antipsychotics) - started on 05/04/2023 * continue chlorpromazine 50 mg QAM, 50 mg midday, and 300 mg QHS - increased 04/26/2023 from 50 mg BID & 100 mg QHS * continue venlafaxine ER 150 mg daily - increased 05/09/2023 to 150 mg, started 03/28/2023 at 75 mg * continue haloperidol decanoate total of 400 mg HAYES over two days - received on 05/04/2023 and 05/05/2023 * [facility] bed (he's on the wait list) 05/16/2023: * continue perphenazine 8 mg BID (see notes in Impression re: use of 3 antipsychotics) - started on 05/04/2023 * continue chlorpromazine 50 mg QAM, 50 mg midday, and 300 mg QHS - increased 04/26/2023 from 50 mg BID & 100 mg QHS * continue venlafaxine ER 150 mg daily - increased 05/09/2023 to 150 mg, started 03/28/2023 at 75 mg * continue haloperidol decanoate total of 400 mg HAYES over two days - received on 05/04/2023 and 05/05/2023 * [facility] bed (he's on the wait list) 05/15/2023: * continue perphenazine 8 mg BID (see notes in Impression re: use of 3 antipsychotics) - started on 05/04/2023 * continue chlorpromazine 50 mg QAM, 50 mg midday, and 300 mg QHS - increased 04/26/2023 from 50 mg BID & 100 mg QHS * continue venlafaxine ER 150 mg daily - increased 05/09/2023 to 150 mg, started 03/28/2023 at 75 mg * continue haloperidol decanoate total of 400 mg HAYES over two days - received on 05/04/2023 and 05/05/2023 * [facility] bed (he's on the wait list) 05/14/2023: * continue perphenazine 8 mg BID (see notes in Impression re: use of 3 antipsychotics) - started on 05/04/2023 * continue chlorpromazine 50 mg QAM, 50 mg midday, and 300 mg QHS - increased 04/26/2023 from 50 mg BID & 100 mg QHS * continue venlafaxine ER 150 mg daily - increased 05/09/2023 to 150 mg, started 03/28/2023 at 75 mg * continue haloperidol decanoate total of 400 mg HAYES over two days - received on 05/04/2023 and 05/05/2023 * [facility] bed (he's on the wait list) 05/13/2023: * continue perphenazine 8 mg BID (see notes in Impression re: use of 3 antipsychotics) - started on 05/04/2023 * continue chlorpromazine 50 mg QAM, 50 mg midday, and 300 mg QHS - increased 04/26/2023 from 50 mg BID & 100 mg QHS * continue venlafaxine ER 150 mg daily - increased 05/09/2023 to 150 mg, started 03/28/2023 at 75 mg * continue haloperidol decanoate total of 400 mg HAYES over two days - received on 05/04/2023 and 05/05/2023 * [facility] bed (he's on the wait list) 05/12/2023: * continue perphenazine 8 mg BID (see notes in Impression re: use of 3 antipsychotics) - started on 05/04/2023 * continue chlorpromazine 50 mg QAM, 50 mg midday, and 300 mg QHS - increased 04/26/2023 from 50 mg BID & 100 mg QHS * continue venlafaxine ER 150 mg daily - increased 05/09/2023 to 150 mg, started 03/28/2023 at 75 mg * continue haloperidol decanoate total of 400 mg HAYES over two days - received on 05/04/2023 and 05/05/2023 * await [facility] bed (he's on the wait list) 05/11/2023: * continue perphenazine 8 mg BID (see notes in Impression re: use of 3 antipsychotics) - started on 05/04/2023 * continue chlorpromazine 50 mg QAM, 50 mg midday, and 300 mg QHS - increased 04/26/2023 from 50 mg BID & 100 mg QHS * continue venlafaxine ER 150 mg daily - increased 05/09/2023 to 150 mg, started 03/28/2023 at 75 mg * continue haloperidol decanoate total of 400 mg HAYES over two days - received on 05/04/2023 and 05/05/2023 05/10/2023: * continue perphenazine 8 mg BID for now despite concern about use of 2 phenothiazines and 3 total antipsychotics - started on 05/04/2023 * continue chlorpromazine 50 mg QAM, 50 mg midday, and 300 mg QHS - increased 04/26/2023 from 50 mg BID & 100 mg QHS * continue venlafaxine ER 150 mg daily - increased 05/09/2023 to 150 mg, started 03/28/2023 at 75 mg * continue haloperidol decanoate total of 400 mg HAYES over two days - received on 05/04/2023 and 05/05/2023 05/09/2023: * continue perphenazine 8 mg BID for now despite concern about use of 2 phenothiazines and 3 total antipsychotics - started on 05/04/2023 * continue chlorpromazine 50 mg QAM, 50 mg midday, and 300 mg QHS - increased 04/26/2023 from 50 mg BID & 100 mg QHS * increase venlafaxine ER 75 mg daily - started 03/28/2023 * continue haloperidol decanoate total of 400 mg HAYES over two days - received on 05/04/2023 and 05/05/2023 05/08/2023: * continue perphenazine 8 mg BID, though I'm fairly concerned about the use of 2 phenothiazines and 3 total antipsychotics - started on 05/04/2023 * continue chlorpromazine 50 mg QAM, 50 mg midday, and 300 mg QHS - increased 04/26/2023 from 50 mg BID & 100 mg QHS * continue venlafaxine ER 75 mg daily - started 03/28/2023 * continue haloperidol decanoate total of 400mg HAYES over two days; 200 mg HAYES - received on 05/04/2023 and 05/05/2023 05/07/2023: * Trilafon 8mg BID po --started on 05/04/2023 * Continue thorazine 50mg qAM, 50mg qafternoon and 300mg HS --increased on 04/26/2023 * continue venlafaxine ER 75 mg daily - started 03/28/2023 * continue haloperidol decanoate total of 400mg HAYES over two days; 200 mg HAYES - received on 05/04/2023 and 05/05/2023 05/06/2023: * Trilafon 8mg BID po --started on 05/04/2023 * Continue thorazine 50mg qAM, 50mg qafternoon and 300mg HS --increased on 04/26/2023 * continue venlafaxine ER 75 mg daily - started 03/28/2023 * continue haloperidol decanoate total of 400mg HAYES over two days; 200 mg HAYES - received on 05/04/2023 and 05/05/2023 05/05/2023: * Trilafon 8mg BID po --started on 05/04/2023 * Continue thorazine 50mg qAM, 50mg qafternoon and 300mg HS --increased on 04/26/2023 * continue venlafaxine ER 75 mg daily - started 03/28/2023 * continue haloperidol decanoate total of 400mg HAYES over two days; 200 mg HAYES - received on 05/04/2023 and 05/05/2023 05/02/2023: * Discontinue haldol po * Start risperidone 1mg BID with 0.5mg BID prn for hallucinations * Continue thorazine 50mg qAM, 50mg qafternoon and 300mg HS --increased on 04/26/2023 * continue venlafaxine ER 75 mg daily - started 03/28/2023 * continue haloperidol decanoate total of 400mg HAYES over two days; 200 mg HAYES - received on 04/03/2023 and additional 200mg HAYES - received on 04/05/2023; likely will hold off on next dose pending risperidone trial 04/28/2023: continue current meds and tx plan, discussed Depakote augmentation if fails to make steady improvement. 04/27/2023: slow rate of Haldol taper--resume 10 mg BID meals and monitor BP on higher dose of thorazine. If symptoms persist, he may be agreeable to trial of clozaril in place of thorazine and/or depakote. Still a week out from Haldol dec. 04/26/2023: titrate hs thorazine, continue Haldol taper (oral, patient received dec) due on or before 05/05/23. 04/25/2023: d/c hs Haldol in favor of increase in thorazine to 200 mg hs. monitor for orthostasis 04/23/2023: * Chlorpromazine 50mg qAM and 50mg qafternoon and 100mg HS - increased 04/21/2023 from 50mg HS to 100mg HS * continue haloperidol decanoate total of 400mg HAYES over two days; 200 mg HAYES - received on 04/03/2023 and additional 200mg HAYES - received on 04/05/2023 * increase haloperidol po back to 10mg TID - reduced to 5 TID on 04/21/2023 with worsening hallucinations, previously reduced to 10mg TID dose on 04/02/2023 when decanoate was started * continue venlafaxine ER 75 mg daily - started 03/28/2023 04/21/2023: * Chlorpromazine 50mg qAM and 50mg qafternoon and 100mg HS - increased 04/21/2023 from 50mg HS to 100mg HS * continue haloperidol decanoate total of 400mg HAYES over two days; 200 mg HAYES - received on 04/03/2023 and additional 200mg HAYES - received on 04/05/2023 * decrease haloperidol po to 5 mg TID - reduced from 10 mg TID, previously reduced to 10mg TID dose on 04/02/2023 when decanoate was started * continue venlafaxine ER 75 mg daily - started 03/28/2023 04/17/2023: * continue chlropromazine 50mg TID - increased 04/13/2023 from 25 mg BID & 50 mg QHS * continue haloperidol decanoate total of 400mg HAYES over two days; 200 mg HAYES - received on 04/03/2023 and additional 200mg HAYES - received on 04/05/2023 * continue haloperidol 10 mg TID - reduced to this dose on 04/02/2023 when decanoate was started * continue venlafaxine ER 75 mg daily - started 03/28/2023 04/16/2023: * continue chlropromazine 50mg TID - increased 04/13/2023 from 25 mg BID & 50 mg QHS * continue haloperidol decanoate 200 mg HAYES - received on 04/03/2023 * continue haloperidol 10 mg TID - reduced to this dose on 04/02/2023 when decanoate was started * continue venlafaxine ER 75 mg daily - started 03/28/2023 04/15/2023: * continue chlropromazine 50mg TID - increased 04/13/2023 from 25 mg BID & 50 mg QHS * continue haloperidol decanoate 200 mg HAYES - received on 04/03/2023 * continue haloperidol 10 mg TID - reduced to this dose on 04/02/2023 when decanoate was started * continue venlafaxine ER 75 mg daily - started 03/28/2023 04/14/2023: * continue chlropromazine 50mg TID - increased 04/13/2023 from 25 mg BID & 50 mg QHS * continue haloperidol decanoate 200 mg HAYES - received on 04/03/2023 * continue haloperidol 10 mg TID - reduced to this dose on 04/02/2023 when decanoate was started * continue venlafaxine ER 75 mg daily - started 03/28/2023 04/13/2023: * continue chlropromazine 25 mg QAM, 25 mg QPM, 50mg QHS - adjusted to this schedule on 04/02/2023 * continue haloperidol decanoate 200 mg HAYES - received on 04/03/2023 * continue haloperidol 10 mg TID - reduced to this dose on 04/02/2023 when decanoate was started * continue venlafaxine ER 75 mg daily - started 03/28/2023 04/12/2023: * continue chlropromazine 25 mg QAM, 25 mg QPM, 50mg QHS - adjusted to this schedule on 04/02/2023 * continue haloperidol decanoate 200 mg HAYES - received on 04/03/2023 * continue haloperidol 10 mg TID - reduced to this dose on 04/02/2023 when decanoate was started * continue venlafaxine ER 75 mg daily - started 03/28/2023 04/11/2023: * continue chlropromazine 25 mg QAM, 25 mg QPM, 50mg QHS - adjusted to this schedule on 04/02/2023 * continue haloperidol decanoate 200 mg HAYES - received on 04/03/2023 * continue haloperidol 10 mg TID - reduced to this dose on 04/02/2023 when decanoate was started * continue venlafaxine ER 75 mg daily - started 03/28/2023 04/10/2023: * continue chlropromazine 25 mg QAM, 25 mg QPM, 50mg QHS - adjusted to this schedule on 04/02/2023 * continue haloperidol decanoate 200 mg HAYES - received on 04/03/2023 * continue haloperidol 10 mg TID - reduced to this dose on 04/02/2023 when decanoate was started * continue venlafaxine ER 75 mg daily - started 03/28/2023 04/05/2023: Additional Haldol decanoate 200mg HAYES, continue po thorazine and po haldol 04/04/2023: Continue current medications and tx plan. Consider additional dose of haldol decanoate 100-200mg HAYES tomorrow. 04/03/2023: * thorazine 25mg qAM, 25mg qdinner, 50mg HS * haldol decanoate 200mg HAYES-- received on 04/03/2023 * haldol po 10mg TID * Effexor ER 75mg daily 04/02/2023: thorazine 25 mg am and pm meal, 50 mg hs with additional 25 mg prn. Patient now agreeable to Haldol dec. Will decrease to 10 mg TID as interval increase of midday dose to 20 mg has not helped with pm breakthrough. Will load 200 mg dose today with additional 100-200 mg loading and PO Haldol taper per Dr. Smith. 04/01/2023: ortho cleared patient, he can discontinue boot at his own comfort, his residual foot deformity does not require surgery 03/28/2023: diversion meeting outcome is all community resources have been exhausted and patient will remain referred to [facility]. repeat foot x ray tomorrow. Patient desires d/c trazodone. completed quality case review with [facility] peer to peer Dr. Jimenez discussing that patient has repeatedly refused jackson zaril and HAYES and prefers thorazine/haldol component, current doses are best for his BP. Discussed rationale for low dose Effexor XR. Patient has become agitated/disinhibited on higher doses of antidepressants in past so I would not titrate. 03/25/2023: * Consolidate thorazine to 75mg HS * Continue haldol 10mg qAM, 20mg miday and 10mg HS 03/22/2023: * increase haloperidol to 10 mg qAM, 20mg midday and 10mg HS- started this schedule 03/22/2023 * consolidate chlorpromazine to 25mg qAM and 50mg HS 03/21/2023: * continue haloperidol 10 mg TID - started this schedule 03/03/2023 * consolidate chlorpromazine to 25mg qAM and 50mg HS 03/20/2023: * continue haloperidol 10 mg TID - started this schedule 03/03/2023 * continue chlorpromazine 25 mg TID - resumed 03/17/2023 * change cogentin from HS scheduled to HS prn use for muscle stiffness to reduce polypharmacy 03/18/2023: * continue haloperidol 10 mg TID - started this schedule 03/03/2023 * continue chlorpromazine 25 mg TID - resumed 03/17/2023 * was committed for extended treatment at [facility] hearing today, plan to pursue [facility] hospital transfer 03/17/2023: * continue haloperidol 10 mg TID - started this schedule 03/03/2023 * increase chlorpromazine to 25 mg TID * probable 304 hearing on February 03/07/2023: Start trazodone 100mg HS po. Continue haldol 10mg TID po 03/03/2023: unable to resume thorazine, offered to try splitting Haldol to TID to see if any improvement in orthostasis. 03/02/2023: The patient was admitted to the [facility] ([facility] inpatient mental health unit) on q15 min checks (behavioral with suicide precautions) for safety. The patient will participate in group, recreational, and milieu therapies and will be offered additional individual and family sessions as clinically appropriate. Continue to hold thorazine and monitor BP. Inventory Assets Strengths: taking PO meds, cooperative with tx plan Needs: longer term hospitalization, medical monitoring Suicide Risk Level Suicide Risk Level: Moderate (q15 min suicide checks) Suicide Risk Level Comments: The patient remains at moderate risk, primarily because of his persistent intermittent persecutory auditory hallucinations. He again reiterates that he is not experiencing suicidal thoughts, does not have any suicidal intent, and has no plan for suicide. He denies any command AH. He also convincingly assures us that he will notify staff if thoughts of self-harm emerge and has been consistently seeking out staff support when he feels overwhelmed by hallucinations. Risk Factors Assessment Male: Yes : Yes Do You Have Access To A Gun?: No Mental Health Diagnoses: Yes Previous Attempt: Yes Previous Psychiatric Hospitalization: Yes Protective Factors Assessment Employed: No Interval History Identifying Information UMBERTO DAMIAN is a 52-year-old man who lives in a [place] [facility] residential with a history of schizophrenia, who eloped after returning to his residential and was found by police wandering with concern for dehydration due to hot temperatures/humidity. He is on a 304 commitment as of 03/18/2023. Chief Complaint "OK". Review of Systems Sleep Information Total Hours of Sleep: 6 Sleep Comments: PRN Thorazine at 0023 for difficulty sleeping due to auditory hallucinations. Meal Information Percent Meal Consumed - Breakfast: 100 Percent Meal Consumed - Lunch: 100 Percent Meal Consumed - Dinner: 100 Nutrition Comment: Ate all of his meal. Subjective Subjective The patient was seen and assessed and interval progress reviewed in a multidisciplinary team meeting with the treatment team. For details, see the "Impression" section. Overall I spent a total of 23 minutes for this inpatient follow-up including review of chart records, direct evaluation of the patient [id number], counseling the patient, reconciling and ordering medication, medication education with the patient, risk assessment, discussion during interdisciplinary treatment rounds, and documentation in the electronic health record. Physical Exam Psychiatric Orientation: alert, oriented x 3, oriented to person, oriented to place, oriented to time and cooperative Apperance: appropriately dressed, appropriately groomed and + disheveled Eye Contact: good eye contact and + fair eye contact Motor Behavior: no abnormal motor movements Speech: normal rate/rhythm/volume of speech Affect: euthymic affect, + anxious affect, + blunted affect, + constricted affect (but with a smile) and mood congruent with affect; no depressed affect Mood: + anxious mood; no depressed mood Thought Process: clear/coherent thought process, + looseness of associations and + concrete thought process Thought Content: + paranoid (intermittent), reality based without delusions (for the most part), + delusions, + thought broadcasting and + persecution Suicidal Thoughts: denies suicidal thoughts, denies suicidal plan and denies suicidal intent Homicidal Thoughts: denies homicidal thoughts Hallucinations: + auditory hallucinations (intermittent) and + visual hallucinations (intermittently seeing people in trenchcoats, falling into a garden) Cognition: recent memory grossly intact, remote memory grossly intact, attention grossly intact and language grossly intact Estimated Intelligence: average estimated intelligence and consistent with education level Insight: + limited insight Judgment: + limited judgement Vital Signs (Past 24 Hours) Last Vital Signs Temp 36.5 C 05/21/23 06:44 Pulse 81 05/21/23 06:45 Resp 16 05/21/23 06:44 BP 100/67 05/21/23 06:45 Pulse Ox 94 05/16/23 06:55 O2 Del Method Room Air 05/16/23 06:55 Results & Data ([facility]) Current Inpatient Medications Current Inpatient Medications: Current Inpatient Medications Al Hydrox/Mg Hydrox/Simethicone (Aluminum/Magnesium Susp 30 Ml Udc) 30 ml PO Q4H PRN PRN Reason: GI Upset Stop: 06/09/23 05:14 Chlorpromazine HCl (Chlorpromazine Hcl 25 Mg Tab) 50 mg PO Q6 PRN PRN Reason: psychosis Stop: 05/31/23 18:21 Last Admin: 05/21/23 00:23 Dose: 50 mg Chlorpromazine HCl (Chlorpromazine Hcl 100 Mg Tab) 300 mg PO DAILY@2030 [facility] Stop: 05/26/23 20:29 Last Admin: 05/20/23 20:35 Dose: 300 mg Chlorpromazine HCl (Chlorpromazine Hcl 25 Mg Tab) 50 mg PO DAILY@1400 [facility] Stop: 06/15/23 13:59 Last Admin: 05/21/23 14:04 Dose: 50 mg Chlorpromazine HCl (Chlorpromazine Hcl 25 Mg Tab) 50 mg PO 0700 [facility] Stop: 06/18/23 06:59 Last Admin: 05/21/23 06:35 Dose: 50 mg Docusate Sodium (Docusate Sodium 100 Mg Cap) 200 mg PO HS [facility] Stop: 05/31/23 21:59 Last Admin: 05/20/23 20:36 Dose: 200 mg Hydroxyzine HCl (Hydroxyzine Hcl 25 Mg Tab) 25 mg PO Q4H PRN PRN Reason: Anxiety Stop: 06/09/23 05:09 Last Admin: 05/20/23 04:36 Dose: 25 mg Hydroxyzine HCl (Hydroxyzine Hcl 25 Mg Tab) 50 mg PO HSZ PRN PRN Reason: Insomnia Stop: 06/09/23 05:11 Last Admin: 05/19/23 02:54 Dose: 50 mg Magnesium Hydroxide (Magnesium Hydroxide Susp 30 Ml Udc) 30 ml PO DAILY PRN PRN Reason: Constipation Stop: 06/09/23 05:15 Miscellaneous (Pending Order) 1 each N/A Q30D@0900 [facility] Stop: 11/29/23 08:59 Perphenazine (Perphenazine 2 Mg Tablet) 8 mg PO BID [facility] Stop: 06/03/23 20:59 Last Admin: 05/21/23 08:41 Dose: 8 mg Perphenazine (Perphenazine 2 Mg Tablet) 2 mg PO DAILY@1400 [facility] Stop: 06/20/23 14:09 Last Admin: 05/21/23 14:46 Dose: 2 mg Venlafaxine HCl (Venlafaxine Hcl Xr 150 Mg Capxr) 150 mg PO QAM JOSEMANUEL Stop: 06/09/23 08:59 Last Admin: 05/21/23 08:41 Dose: 150 mg Mental Health & Subst Abuse Tx Psychiatrist Name of Psychiatrist: Dr. Umberto Aviles Psychiatrist's Psychiatric Appointment Comment: Telehealth Therapist Name of Therapist: Chary Velasquez Therapist's Therapy Appointment Comment: [address] [place] [address] [id number], [place] [address] Post Discharge Appointments Primary Care Physician Name Of Family Doctor/PCP: You Brooks (1) Schizophrenia Schizophrenia type: unspecified Qualified Code(s): F20.9 - Schizophrenia, un specified
[2023-05-21] MEDS: DOCUSATE SODIUM 100 MG CAP PO SCH (20:30)
[2023-05-22] MEDS: chlorproMAZINE HCL 25 MG TAB PO SCH ×2 (06:33→14:11)
[2023-05-22] MEDS ORDERED: PERPHENAZINE 2 MG TAB PO SCH (09:00)
[2023-05-22] MEDS: PERPHENAZINE 2 MG TAB PO SCH ×3 (09:14→21:35)
[2023-05-22] MEDS: VENLAFAXINE HCL XR 150 MG CAPXR PO SCH (09:14)
--- NOTE | 2023-05-22 20:56 | Psychiatric Progress Note ---
Date of Service May 22, 2023 Impression / Recommendations Impression 52 yo man with schizophrenia with multiple recent psychiatric hospitalizations after each has eloped from his retirement. On [facility] commitment and [facility]. No current bed date. [facility] due to psychosis and limited ability to tolerate peers and hx of aggression with delusions 05/21/2023: Reports an "OK day", but is somewhat preoccupied with a desire to increase perphenazine. He notes that "afternoons can get bad", and he has been requesting PRN chlorpromazine in the afternoons. Discussed adding afternoon perphenazine at 1400 to see if this reduces need for PRN, as well as potentially to start transition to perphenazine as his sole phenothiazine. 05/20/2023: After I met with pt yesterday he began reporting to staff increased hallucinations and distress about them. He told them that I'd ordered a change in his medication (which is not only not the case, but in light of how well he seemed to be doing we'd discussed NOT making any changes). This morning he says he thinks it's helped to have moved AM chlorpromazine to 0700. Some staff pointed out that that's when it had initially been ordered and that some time ago he asked if it could be consolidated with his other morning medications. 05/19/2023: Requested to take AM chlorpromazine at 0700 rather than 0900 to minimize sedation that he finds detract from participation in morning groups. This seems eminently reasonable. Otherwise he reports no change and continues to do fairly well while awaiting a [facility] bed. 05/18/2023: Reports no change from recent baseline, including any new or worse symptoms nor any adverse medication effects. Comments on the construction going on outside, progress of which he's been following outside his window. 05/17/2023: Pleasant, appropriate. Offers no complaints nor reports of any a dverse medication effects. He asks if I have any news of how long it might be before a bed would be available at the [facility], which unfortunately I don't. 05/16/2023: More comfortable today. Has not sought any change in medication nor requested any PRN's and is less anxious about the increase in venlafaxine XR. No adverse effect attributable to any of his medications. Has been participating appropriately in the milieu and groups. 05/15/2023: Pt became apprehensive yesterday about the increase in venlafaxine XR from 75 mg to 150 mg 3 days previously (ordered 05/09/2023, first increased dose 05/10/2023). He didn't actually report any adverse effect at all, but seemed to take this as an indication that he was doing worse. Reminded him that we'd previously discussed that the 75 mg dose is quite low and that doses of 225 mg and higher are usually required for optimal effect, especially for anxiety. Yesterday evening pt requested "more Trilafon" shortly after getting PRN chlorpromazine. Has frequently requested chlorpromazine today. When I ask reason for this, pt says he feels as if he needs more medication, but denies any new or worse symptoms, including any worsening in psychosis. My sense is that his anxieties about ensuring his treatment is adequate are being exacerbated because every other patient currently admitted is very anxious and all have obsessive- compulsive symptoms centering around medication. 05/14/2023: Says he's "doing pretty good" and reports that chronic hallucinations are below baseline level and not bothering him. Reports no adverse medication effects. Asks about going for a walk with staff (to which he's entitled per policy contingent on staff availability). 05/13/2023: Reports that he's "doing good" with "not much of hallucinations". Again voices apprehension about whether I will change his regimen of 3 antipsychotics. Denies any side effects. 05/12/2023: Says that he's "having another really good day" thus far today. He reports minimal hallucinations, saying "I don't really notice them that much if I don't think about them". Asks "you're not going to change the medication, are you?", expressing awareness of our several previous discussions about the strong recommendation in general to avoid multiple antipsychotic medications. 05/11/2023: Pt reports he's "having another good day" with minimal hallucinations. Accurately anticipates that I'll want to discuss his being on 3 antipsychotics, 2 of them phenothiazines, with a goal of formulating a plan to transition to either chlorpromazine alone or perphenazine alone, but not both. He says he feels as if he's doing very well and is fearful of relapse. He and I have already concluded that available evidence strongly supports that, for some reason, he has never done well on monotherapy with anything and has done best when on both haloperidol and chlorpromazine (the only phenothiazine he appears to have taken in the past). 05/10/2023: Reports "feeling a lot better today" and reports "the hallucinations are back under control". Discussed that this improved with no change in medication, repeating my opinion that medication changes are best avoided unless necessary but that use of 4 antipsychotics is deprecated. Pt emphasizes that he's very happy with how he's doing right now and really doesn't want to change the regimen. 05/09/2023: Reports "having a bad day" with more prominent, distressing visual hallucinations of "dark" figures experienced as nefarious and threatening. I'm very loath to change antipsychotic regimen right now given history of worsened psychosis with most medication changes. A record review undertaken by RN reveals a fairly strong pattern of 2-3 day periods of worsened psychosis every 2-3 weeks seemingly unrelated to whether antipsychotic regimen is changed or not. I note that venlafaxine dose is unusually low and suspect that anxiety would respond to dose more in the usual therapeutic range of ~225 mg/day. 05/08/2023: Reports "feeling OK" today, with "just little hallucinations now and then". However, there have been multiple medication changes since I last saw him 3 weeks ago and he's not on perphenazine in addition to chlorpromazine and depot haloperidol. Oral haloperidol has finally been eliminated. He says he's tolerating this regimen well. He tells me he doesn't think he's taken perphenazine ("Trilafon") before. His current chlorpromazine dose totalling 400 mg/day remains low compared to typical monotherapy doses in the 600 to 800 mg/day range but there's been a sense that it might have caused hypotension (not currently seen) in the past. Since perphenazine is, like chlorpromazine, a phenothiazine (albeit of medium rather than low potency), selecting one would appear prudent. By history as related by pt and reflected in the record, pt has done best when on both haloperidol and chlorpromazine in the past and has failed numerous trial of alternate agents. However, there's also a strong correlation between medication changes and symptoms exacerbation so I'm loath to change the phenothiazines just out of preference to minimize antipsychotics since he's currently doing well. I'll attempt to determine whether he's been documented as having taken perphenazine before. 05/07/23: Mood remains stable today, ongoing lessening of hallucination intensity since introduction of Trilafon. Tolerating Trilafon and other psychiatric medications without any side effects. [facility] ([facility]) Schizophrenia: Mr. Trivedi acknowledges that his auditory hallucinations wax and wane, but today he tells me that, overall, he feels that he is doing better. He notes that, in particular, he finds that perphenazine helps, and he reports that he noticed improvement when an additional 2 mg of perphenazine was recently added. Mr Eagle also tells me that while chlorpromazine also helps with hallucinations and agitation related to the "voices," he is concerned by excess sedation in the morning and during the day. We discussed the fact that he is taking three different antipsychotic medications, and while this is helping, we're hoping to simplify the regimen. My recommendation was to start reducing the dose of chlorpromazine while titrating the dose of perphenazine. THe patient was in agreement with this plan. Requested that we maintain the availability of PRN chlorpromazine, and he suggested the addition of trazodone for sleep. We agreed to this plan and it was implemented. Thorazine reduced to 200 mg HS. Daytime doses of Thorazine (chlorpromazine) discontinued in favor of perphenazine 16 mg TID. Present on Admission?: Yes Plan 05/21/2023: * increase perphenazine 8 mg BID and 2 mg daily at 1400 (see notes in Impression re: use of 3 antipsychotics) - started on 05/04/2023 * continue chlorpromazine 50 mg QAM, 50 mg midday, and 300 mg QHS - increased 04/26/2023 from 50 mg BID & 100 mg QHS * continue venlafaxine ER 150 mg daily - increased 05/09/2023 to 150 mg, started 03/28/2023 at 75 mg * continue haloperidol decanoate total of 400 mg HAYES over two days - received on 05/04/2023 and 05/05/2023 * [facility] bed (he's on the wait list) 05/20/2023: * continue perphenazine 8 mg BID (see notes in Impression re: use of 3 antipsychotics) - started on 05/04/2023 * continue chlorpromazine 50 mg QAM, 50 mg midday, and 300 mg QHS - increased 04/26/2023 from 50 mg BID & 100 mg QHS * continue venlafaxine ER 150 mg daily - increased 05/09/2023 to 150 mg, started 03/28/2023 at 75 mg * continue haloperidol decanoate total of 400 mg HAYES over two days - received on 05/04/2023 and 05/05/2023 * [facility] bed (he's on the wait list) 05/19/2023: * continue perphenazine 8 mg BID (see notes in Impression re: use of 3 antipsychotics) - started on 05/04/2023 * continue chlorpromazine 50 mg QAM, 50 mg midday, and 300 mg QHS - increased 04/26/2023 from 50 mg BID & 100 mg QHS * continue venlafaxine ER 150 mg daily - increased 05/09/2023 to 150 mg, started 03/28/2023 at 75 mg * continue haloperidol decanoate total of 400 mg HAYES over two days - received on 05/04/2023 and 05/05/2023 * [facility] bed (he's on the wait list) 05/18/2023: * continue perphenazine 8 mg BID (see notes in Impression re: use of 3 antipsychotics) - started on 05/04/2023 * continue chlorpromazine 50 mg QAM, 50 mg midday, and 300 mg QHS - increased 04/26/2023 from 50 mg BID & 100 mg QHS * continue venlafaxine ER 150 mg daily - increased 05/09/2023 to 150 mg, started 03/28/2023 at 75 mg * continue haloperidol decanoate total of 400 mg HAYES over two days - received on 05/04/2023 and 05/05/2023 * [facility] bed (he's on the wait list) 05/17/2023: * continue perphenazine 8 mg BID (see notes in Impression re: use of 3 antipsychotics) - started on 05/04/2023 * continue chlorpromazine 50 mg QAM, 50 mg midday, and 300 mg QHS - increased 04/26/2023 from 50 mg BID & 100 mg QHS * continue venlafaxine ER 150 mg daily - increased 05/09/2023 to 150 mg, started 03/28/2023 at 75 mg * continue haloperidol decanoate total of 400 mg HAYES over two days - received on 05/04/2023 and 05/05/2023 * [facility] bed (he's on the wait list) 05/16/2023: * continue perphenazine 8 mg BID (see notes in Impression re: use of 3 antipsychotics) - started on 05/04/2023 * continue chlorpromazine 50 mg QAM, 50 mg midday, and 300 mg QHS - increased 04/26/2023 from 50 mg BID & 100 mg QHS * continue venlafaxine ER 150 mg daily - increased 05/09/2023 to 150 mg, started 03/28/2023 at 75 mg * continue haloperidol decanoate total of 400 mg HAYES over two days - received on 05/04/2023 and 05/05/2023 * [facility] bed (he's on the wait list) 05/15/2023: * continue perphenazine 8 mg BID (see notes in Impression re: use of 3 antipsychotics) - started on 05/04/2023 * continue chlorpromazine 50 mg QAM, 50 mg midday, and 300 mg QHS - increased 04/26/2023 from 50 mg BID & 100 mg QHS * continue venlafaxine ER 150 mg daily - increased 05/09/2023 to 150 mg, started 03/28/2023 at 75 mg * continue haloperidol decanoate total of 400 mg HAYES over two days - received on 05/04/2023 and 05/05/2023 * [facility] bed (he's on the wait list) 05/14/2023: * continue perphenazine 8 mg BID (see notes in Impression re: use of 3 antipsychotics) - started on 05/04/2023 * continue chlorpromazine 50 mg QAM, 50 mg midday, and 300 mg QHS - increased 04/26/2023 from 50 mg BID & 100 mg QHS * continue venlafaxine ER 150 mg daily - increased 05/09/2023 to 150 mg, started 03/28/2023 at 75 mg * continue haloperidol decanoate total of 400 mg HAYES over two days - received on 05/04/2023 and 05/05/2023 * [facility] bed (he's on the wait list) 05/13/2023: * continue perphenazine 8 mg BID (see notes in Impression re: use of 3 antipsychotics) - started on 05/04/2023 * continue chlorpromazine 50 mg QAM, 50 mg midday, and 300 mg QHS - increased 04/26/2023 from 50 mg BID & 100 mg QHS * continue venlafaxine ER 150 mg daily - increased 05/09/2023 to 150 mg, started 03/28/2023 at 75 mg * continue haloperidol decanoate total of 400 mg HAYES over two days - received on 05/04/2023 and 05/05/2023 * [facility] bed (he's on the wait list) 05/12/2023: * continue perphenazine 8 mg BID (see notes in Impression re: use of 3 antipsychotics) - started on 05/04/2023 * continue chlorpromazine 50 mg QAM, 50 mg midday, and 300 mg QHS - increased 04/26/2023 from 50 mg BID & 100 mg QHS * continue venlafaxine ER 150 mg daily - increased 05/09/2023 to 150 mg, started 03/28/2023 at 75 mg * continue haloperidol decanoate total of 400 mg HAYES over two days - received on 05/04/2023 and 05/05/2023 * [facility] bed (he's on the wait list) 05/11/2023: * continue perphenazine 8 mg BID (see notes in Impression re: use of 3 antipsychotics) - started on 05/04/2023 * continue chlorpromazine 50 mg QAM, 50 mg midday, and 300 mg QHS - increased 04/26/2023 from 50 mg BID & 100 mg QHS * continue venlafaxine ER 150 mg daily - increased 05/09/2023 to 150 mg, started 03/28/2023 at 75 mg * continue haloperidol decanoate total of 400 mg HAYES over two days - received on 05/04/2023 and 05/05/2023 05/10/2023: * continue perphenazine 8 mg BID for now despite concern about use of 2 phenothiazines and 3 total antipsychotics - started on 05/04/2023 * continue chlorpromazine 50 mg QAM, 50 mg midday, and 300 mg QHS - increased 04/26/2023 from 50 mg BID & 100 mg QHS * continue venlafaxine ER 150 mg daily - increased 05/09/2023 to 150 mg, started 03/28/2023 at 75 mg * continue haloperidol decanoate total of 400 mg HAYES over two days - received on 05/04/2023 and 05/05/2023 05/09/2023: * continue perphenazine 8 mg BID for now despite concern about use of 2 phenothiazines and 3 total antipsychotics - started on 05/04/2023 * continue chlorpromazine 50 mg QAM, 50 mg midday, and 300 mg QHS - increased 04/26/2023 from 50 mg BID & 100 mg QHS * increase venlafaxine ER 75 mg daily - started 03/28/2023 * continue haloperidol decanoate total of 400 mg HAYES over two days - received on 05/04/2023 and 05/05/2023 05/08/2023: * continue perphenazine 8 mg BID, though I'm fairly concerned about the use of 2 phenothiazines and 3 total antipsychotics - started on 05/04/2023 * continue chlorpromazine 50 mg QAM, 50 mg midday, and 300 mg QHS - increased 04/26/2023 from 50 mg BID & 100 mg QHS * continue venlafaxine ER 75 mg daily - started 03/28/2023 * continue haloperidol decanoate total of 400mg HAYES over two days; 200 mg HAYES - received on 05/04/2023 and 05/05/2023 05/07/2023: * Trilafon 8mg BID po --started on 05/04/2023 * Continue thorazine 50mg qAM, 50mg qafternoon and 300mg HS --increased on 04/26/2023 * continue venlafaxine ER 75 mg daily - started 03/28/2023 * continue haloperidol decanoate total of 400mg HAYES over two days; 200 mg HAYES - received on 05/04/2023 and 05/05/2023 05/06/2023: * Trilafon 8mg BID po --started on 05/04/2023 * Continue thorazine 50mg qAM, 50mg qafternoon and 300mg HS --increased on 04/26/2023 * continue venlafaxine ER 75 mg daily - started 03/28/2023 * continue haloperidol decanoate total of 400mg HAYES over two days; 200 mg HAYES - received on 05/04/2023 and 05/05/2023 05/05/2023: * Trilafon 8mg BID po --started on 05/04/2023 * Continue thorazine 50mg qAM, 50mg qafternoon and 300mg HS --increased on 04/26/2023 * continue venlafaxine ER 75 mg daily - started 03/28/2023 * continue haloperidol decanoate total of 400mg HAYES over two days; 200 mg HAYES - received on 05/04/2023 and 05/05/2023 05/02/2023: * Discontinue haldol po * Start risperidone 1mg BID with 0.5mg BID prn for hallucinations * Continue thorazine 50mg qAM, 50mg qafternoon and 300mg HS --increased on 04/26/2023 * continue venlafaxine ER 75 mg daily - started 03/28/2023 * continue haloperidol decanoate total of 400mg HAYES over two days; 200 mg HAYES - received on 04/03/2023 and additional 200mg HAYES - received on 04/05/2023; likely will hold off on next dose pending risperidone trial 04/28/2023: continue current meds and tx plan, discussed Depakote augmentation if fails to make steady improvement. 04/27/2023: slow rate of Haldol taper--resume 10 mg BID meals and monitor BP on higher dose of thorazine. If symptoms persist, he may be agreeable to trial of clozaril in place of thorazine and/or depakote. Still a week out from Haldol dec. 04/26/2023: titrate hs thorazine, continue Haldol taper (oral, patient received dec) due on or before 05/05/23. 04/25/2023: d/c hs Haldol in favor of increase in thorazine to 200 mg hs. monitor for orthostasis 04/23/2023: * Chlorpromazine 50mg qAM and 50mg qafternoon and 100mg HS - increased 04/21/2023 from 50mg HS to 100mg HS * continue haloperidol decanoate total of 400mg HAYES over two days; 200 mg HAYES - received on 04/03/2023 and additional 200mg HAYES - received on 04/05/2023 * increase haloperidol po back to 10mg TID - reduced to 5 TID on 04/21/2023 with worsening hallucinations, previously reduced to 10mg TID dose on 04/02/2023 when decanoate was started * continue venlafaxine ER 75 mg daily - started 03/28/2023 04/21/2023: * Chlorpromazine 50mg qAM and 50mg qafternoon and 100mg HS - increased 04/21/2023 from 50mg HS to 100mg HS * continue haloperidol decanoate total of 400mg HAYES over two days; 200 mg HAYES - received on 04/03/2023 and additional 200mg HAYES - received on 04/05/2023 * decrease haloperidol po to 5 mg TID - reduced from 10 mg TID, previously reduced to 10mg TID dose on 04/02/2023 when decanoate was started * continue venlafaxine ER 75 mg daily - started 03/28/2023 04/17/2023: * continue chlropromazine 50mg TID - increased 04/13/2023 from 25 mg BID & 50 mg QHS * continue haloperidol decanoate total of 400mg HAYES over two days; 200 mg HAYES - received on 04/03/2023 and additional 200mg HAYES - received on 04/05/2023 * continue haloperidol 10 mg TID - reduced to this dose on 04/02/2023 when decanoate was started * continue venlafaxine ER 75 mg daily - started 03/28/2023 04/16/2023: * continue chlropromazine 50mg TID - increased 04/13/2023 from 25 mg BID & 50 mg QHS * continue haloperidol decanoate 200 mg HAYES - received on 04/03/2023 * continue haloperidol 10 mg TID - reduced to this dose on 04/02/2023 when decanoate was started * continue venlafaxine ER 75 mg daily - started 03/28/2023 04/15/2023: * continue chlropromazine 50mg TID - increased 04/13/2023 from 25 mg BID & 50 mg QHS * continue haloperidol decanoate 200 mg HAYES - received on 04/03/2023 * continue haloperidol 10 mg TID - reduced to this dose on 04/02/2023 when decanoate was started * continue venlafaxine ER 75 mg daily - started 03/28/2023 04/14/2023: * continue chlropromazine 50mg TID - increased 04/13/2023 from 25 mg BID & 50 mg QHS * continue haloperidol decanoate 200 mg HAYES - received on 04/03/2023 * continue haloperidol 10 mg TID - reduced to this dose on 04/02/2023 when decanoate was started * continue venlafaxine ER 75 mg daily - started 03/28/2023 04/13/2023: * continue chlropromazine 25 mg QAM, 25 mg QPM, 50mg QHS - adjusted to this schedule on 04/02/2023 * continue haloperidol decanoate 200 mg HAYES - received on 04/03/2023 * continue haloperidol 10 mg TID - reduced to this dose on 04/02/2023 when decanoate was started * continue venlafaxine ER 75 mg daily - started 03/28/2023 04/12/2023: * continue chlropromazine 25 mg QAM, 25 mg QPM, 50mg QHS - adjusted to this schedule on 04/02/2023 * continue haloperidol decanoate 200 mg HAYES - received on 04/03/2023 * continue haloperidol 10 mg TID - reduced to this dose on 04/02/2023 when decanoate was started * continue venlafaxine ER 75 mg daily - started 03/28/2023 04/11/2023: * continue chlropromazine 25 mg QAM, 25 mg QPM, 50mg QHS - adjusted to this schedule on 04/02/2023 * continue haloperidol decanoate 200 mg HAYES - received on 04/03/2023 * continue haloperidol 10 mg TID - reduced to this dose on 04/02/2023 when decanoate was started * continue venlafaxine ER 75 mg daily - started 03/28/2023 04/10/2023: * continue chlropromazine 25 mg QAM, 25 mg QPM, 50mg QHS - adjusted to this schedule on 04/02/2023 * continue haloperidol decanoate 200 mg HAYES - received on 04/03/2023 * continue haloperidol 10 mg TID - reduced to this dose on 04/02/2023 when decanoate was started * continue venlafaxine ER 75 mg daily - started 03/28/2023 04/05/2023: Additional Haldol decanoate 200mg HAYES, continue po thorazine and po haldol 04/04/2023: Continue current medications and tx plan. Consider additional dose of haldol decanoate 100-200mg HAYES tomorrow. 04/03/2023: * thorazine 25mg qAM, 25mg qdinner, 50mg HS * haldol decanoate 200mg HAYES-- received on 04/03/2023 * haldol po 10mg TID * Effexor ER 75mg daily 04/02/2023: thorazine 25 mg am and pm meal, 50 mg hs with additional 25 mg prn. Patient now agreeable to Haldol dec. Will decrease to 10 mg TID as interval increase of midday dose to 20 mg has not helped with pm breakthrough. Will load 200 mg dose today with additional 100-200 mg loading and PO Haldol taper per Dr. Smith. 04/01/2023: ortho cleared patient, he can discontinue boot at his own comfort, his residual foot deformity does not require surgery 03/28/2023: diversion meeting outcome is all community resources have been exhausted and patient will remain [facility]. repeat foot x ray tomorrow. Patient desires d/c trazodone. completed quality case review with [facility] peer to peer Dr. Jimenez discussing that patient has repeatedly refused cloz aril and HAYES and prefers thorazine/haldol component, current doses are best for his BP. Discussed rationale for low dose Effexor XR. Patient has become agitated/disinhibited on higher doses of antidepressants in past so I would not titrate. 03/25/2023: * Consolidate thorazine to 75mg HS * Continue haldol 10mg qAM, 20mg miday and 10mg HS 03/22/2023: * increase haloperidol to 10 mg qAM, 20mg midday and 10mg HS- started this schedule 03/22/2023 * consolidate chlorpromazine to 25mg qAM and 50mg HS 03/21/2023: * continue haloperidol 10 mg TID - started this schedule 03/03/2023 * consolidate chlorpromazine to 25mg qAM and 50mg HS 03/20/2023: * continue haloperidol 10 mg TID - started this schedule 03/03/2023 * continue chlorpromazine 25 mg TID - resumed 03/17/2023 * change cogentin from HS scheduled to HS prn use for muscle stiffness to reduce polypharmacy 03/18/2023: * continue haloperidol 10 mg TID - started this schedule 03/03/2023 * continue chlorpromazine 25 mg TID - resumed 03/17/2023 * was committed for extended treatment at [facility] hearing today, plan [facility] 03/17/2023: * continue haloperidol 10 mg TID - started this schedule 03/03/2023 * increase chlorpromazine to 25 mg TID * probable 304 hearing on February 03/07/2023: Start trazodone 100mg HS po. Continue haldol 10mg TID po 03/03/2023: unable to resume thorazine, offered to try splitting Haldol to TID to see if any improvement in orthostasis. 03/02/2023: The patient was admitted to the [facility] [facility] ([facility] inpatient mental health unit) on q15 min checks (behavioral with suicide precautions) for safety. The patient will participate in group, recreational, and milieu therapies and will be offered additional individual and family sessions as clinically appropriate. Continue to hold thorazine and monitor BP. Inventory Assets Strengths: taking PO meds, cooperative with tx plan. Able to collaborate with treatment providers. Able to discuss past medications and his response to same Needs: longer term hospitalization, medical monitoring Suicide Risk Level Suicide Risk Level: Moderate (q15 min suicide checks) Suicide Risk Level Comments: The patient remains at moderate risk, primarily because of his persistent intermittent persecutory auditory hallucinations. He again reiterates that he is not experiencing suicidal thoughts, does not have any suicidal intent, and has no plan for suicide. He denies any command AH. He also convincingly assures us that he will notify staff if thoughts of self-harm emerge and has been consistently seeking out staff support when he feels overwhelmed by hallucinations. Risk Factors Assessment Male: Yes : Yes Do You Have Access To A Gun?: No Mental Health Diagnoses: Yes Previous Attempt: Yes Previous Psychiatric Hospitalization: Yes Protective Factors Assessment Employed: No Interval History Identifying Information UMBERTO EAGLE is a 52-year-old man who lives in a [place] [facility] retirement with a history of schizophrenia, who eloped after returning to his retirement and was found by police wandering with concern for dehydration due to hot temperatures/humidity. He is on a 304 commitment as of 03/18/2023. Chief Complaint "I'm feeling better. This is a good day". Review of Systems Sleep Information Total Hours of Sleep: 6.5 Sleep Comments: PRN Thorazine at 0023 for difficulty sleeping due to auditory hallucinations. Meal Information Percent Meal Consumed - Breakfast: 100 Percent Meal Consumed - Lunch: 100 Percent Meal Consumed - Dinner: 100 Nutrition Comment: Ate all of his meal. Subjective Subjective Patient was seen & assessed and interval progress reviewed with the treatment team Physical Exam Mental Examination Appearance: Unkempt Eye Contact: Maintains Eye Contact Motor Behavior: Unremarkable Speech: Normal and Soft Mood: Calm Affect: Calm, Elated and Suspicious Thought Process: Circumstantial, Poverty of Content and Slowed Thinking Insight: Poor Judgement: Poor Psychiatric Orientation: alert, oriented x 3, oriented to person, oriented to place, oriented to time and cooperative Apperance: appropriately dressed, appropriately groomed and + disheveled Eye Contact: good eye contact and + fair eye contact Motor Behavior: no abnormal motor movements Speech: normal rate/rhythm/volume of speech Affect: euthymic affect, + anxious affect, + blunted affect, + constricted affect (but with a smile) and mood congruent with affect; no depressed affect Mood: + anxious mood; no depressed mood Thought Process: clear/coherent thought process, + looseness of associations and + concrete thought process Thought Content: + paranoid (intermittent), reality based without delusions (for the most part), + delusions, + thought broadcasting and + persecution Suicidal Thoughts: denies suicidal thoughts, denies suicidal plan and denies suicidal intent Homicidal Thoughts: denies homicidal thoughts Hallucinations: + auditory hallucinations (intermittent) and + visual hallucinations (intermittently seeing people in trenchcoats, falling into a garden) Cognition: recent memory grossly intact, remote memory grossly intact, attention grossly intact and language grossly intact Estimated Intelligence: average estimated intelligence and consistent with education level Insight: + limited insight Judgment: + limited judgement Vital Signs (Past 24 Hours) Last Vital Signs Temp 36.6 C 05/22/23 06:44 Pulse 105 H 05/22/23 06:45 Resp 16 05/22/23 06:44 BP 101/63 05/22/23 06:45 Pulse Ox 94 05/16/23 06:55 O2 Del Method Room Air 05/16/23 06:55 Constitutional WD/WN, vitals as above Cardiovascular Extremities: normal capillary refill Skin no rashes, warm and dry Results & Data ([facility]) Current Inpatient Medications Current Inpatient Medications: Current Inpatient Medications Al Hydrox/Mg Hydrox/Simethicone (Aluminum/Magnesium Susp 30 Ml Udc) 30 ml PO Q4H PRN PRN Reason: GI Upset Stop: 06/09/23 05:14 Chlorpromazine HCl (Chlorpromazine Hcl 25 Mg Tab) 50 mg PO Q6 PRN PRN Reason: psychosis Stop: 05/31/23 18:21 Last Admin: 05/21/23 00:23 Dose: 50 mg Chlorpromazine HCl (Chlorpromazine Hcl 100 Mg Tab) 200 mg PO HS JOSEMANUEL Stop: 06/21/23 21:59 Docusate Sodium (Docusate Sodium 100 Mg Cap) 200 mg PO HS JOSEMANUEL Stop: 05/31/23 21:59 Last Admin: 05/21/23 20:30 Dose: 200 mg Hydroxyzine HCl (Hydroxyzine Hcl 25 Mg Tab) 25 mg PO Q4H PRN PRN Reason: Anxiety Stop: 06/09/23 05:09 Last Admin: 05/20/23 04:36 Dose: 25 mg Hydroxyzine HCl (Hydroxyzine Hcl 25 Mg Tab) 50 mg PO HSZ PRN PRN Reason: Insomnia Stop: 06/09/23 05:11 Last Admin: 05/19/23 02:54 Dose: 50 mg Magnesium Hydroxide (Magnesium Hydroxide Susp 30 Ml Udc) 30 ml PO DAILY PRN PRN Reason: Constipation Stop: 06/09/23 05:15 Miscellaneous (Pending Order) 1 each N/A Q30D@0900 [facility] Stop: 11/29/23 08:59 Perphenazine (Perphenazine 2 Mg Tablet) 16 mg PO TID JOSEMANUEL Stop: 06/21/23 20:59 Venlafaxine HCl (Venlafaxine Hcl Xr 150 Mg Capxr) 150 mg PO QAM JOSEMANUEL Stop: 06/09/23 08:59 Last Admin: 05/22/23 09:14 Dose: 150 mg Mental Health & Subst Abuse Tx Psychiatrist Name of Psychiatrist: Dr. Umberto Aviles Psychiatrist's Psychiatric Appointment Comment: Telehealth Therapist Name of Therapist: Chary Velasquez Therapist's Therapy Appointment Comment: [address] [place] [address] [id number], [place] [address] Post Discharge Appointments Primary Care Physician Name Of Family Doctor/PCP: You Brooks (1) Schizophrenia Schizophrenia type: unspecified Qualified Code(s): F20.9 - Schizophrenia, unspecified
[2023-05-22] MEDS: DOCUSATE SODIUM 100 MG CAP PO SCH (21:33)
[2023-05-22] MEDS: traZODone HCL 100 MG TAB PO SCH (21:38)
[2023-05-22] MEDS: hydrOXYzine HCl 25 MG TAB PO PRN (23:26)
[2023-05-23] MEDS: hydrOXYzine HCl 25 MG TAB PO PRN (01:56)
[2023-05-23] MEDS: PERPHENAZINE 2 MG TAB PO SCH ×3 (09:10→20:59)
[2023-05-23] MEDS: VENLAFAXINE HCL XR 150 MG CAPXR PO SCH (09:10)
--- NOTE | 2023-05-23 17:49 | Psychiatric Progress Note ---
Date of Service May 23, 2023 Impression / Recommendations Impression 52 yo man with schizophrenia with multiple recent psychiatric hospitalizations after each has eloped from his fdc. On 304 commitment and accepted to [facility]. No current bed date. [facility] due to psychosis and limited ability to tolerate peers and hx of aggression with delusions 05/21/2023: Reports an "OK day", but is somewhat preoccupied with a desire to increase perphenazine. He notes that "afternoons can get bad", and he has been requesting PRN chlorpromazine in the afternoons. Discussed adding afternoon perphenazine at 1400 to see if this reduces need for PRN, as well as potentially to start transition to perphenazine as his sole phenothiazine. 05/20/2023: After I met with pt yesterday he began reporting to staff increased hallucinations and distress about them. He told them that I'd ordered a change in his medication (which is not only not the case, but in light of how well he seemed to be doing we'd discussed NOT making any changes). This morning he says he thinks it's helped to have moved AM chlorpromazine to 0700. Some staff pointed out that that's when it had initially been ordered and that some time ago he asked if it could be consolidated with his other morning medications. 05/19/2023: Requested to take AM chlorpromazine at 0700 rather than 0900 to minimize sedation that he finds detract from participation in morning groups. This seems eminently reasonable. Otherwise he reports no change and continues to do fairly well while awaiting a [facility] hospital bed. 05/18/2023: Reports no change from recent baseline, including any new or worse symptoms nor any adverse medication effects. Comments on the construction going on outside, progress of which he's been following outside his window. 05/17/2023: Pleasant, appropriate. Offers no complaints nor reports of any a dverse medication effects. He asks if I have any news of how long it might be before a bed would be available at the [facility], which unfortunately I don't. 05/16/2023: More comfortable today. Has not sought any change in medication nor requested any PRN's and is less anxious about the increase in venlafaxine XR. No adverse effect attributable to any of his medications. Has been participating appropriately in the milieu and groups. 05/15/2023: Pt became apprehensive yesterday about the increase in venlafaxine XR from 75 mg to 150 mg 3 days previously (ordered 05/09/2023, first increased dose 05/10/2023). He didn't actually report any adverse effect at all, but seemed to take this as an indication that he was doing worse. Reminded him that we'd previously discussed that the 75 mg dose is quite low and that doses of 225 mg and higher are usually required for optimal effect, especially for anxiety. Yesterday evening pt requested "more Trilafon" shortly after getting PRN chlorpromazine. Has frequently requested chlorpromazine today. When I ask reason for this, pt says he feels as if he needs more medication, but denies any new or worse symptoms, including any worsening in psychosis. My sense is that his anxieties about ensuring his treatment is adequate are being exacerbated because every other patient currently admitted is very anxious and all have obsessive- compulsive symptoms centering around medication. 05/14/2023: Says he's "doing pretty good" and reports that chronic hallucinations are below baseline level and not bothering him. Reports no adverse medication effects. Asks about going for a walk with staff (to which he's entitled per policy contingent on staff availability). 05/13/2023: Reports that he's "doing good" with "not much of hallucinations". Again voices apprehension about whether I will change his regimen of 3 antipsychotics. Denies any side effects. 05/12/2023: Says that he's "having another really good day" thus far today. He reports minimal hallucinations, saying "I don't really notice them that much if I don't think about them". Asks "you're not going to change the medication, are you?", expressing awareness of our several previous discussions about the strong recommendation in general to avoid multiple antipsychotic medications. 05/11/2023: Pt reports he's "having another good day" with minimal hallucinations. Accurately anticipates that I'll want to discuss his being on 3 antipsychotics, 2 of them phenothiazines, with a goal of formulating a plan to transition to either chlorpromazine alone or perphenazine alone, but not both. He says he feels as if he's doing very well and is fearful of relapse. He and I have already concluded that available evidence strongly supports that, for some reason, he has never done well on monotherapy with anything and has done best when on both haloperidol and chlorpromazine (the only phenothiazine he appears to have taken in the past). 05/10/2023: Reports "feeling a lot better today" and reports "the hallucinations are back under control". Discussed that this improved with no change in medication, repeating my opinion that medication changes are best avoided unless necessary but that use of 4 antipsychotics is deprecated. Pt emphasizes that he's very happy with how he's doing right now and really doesn't want to change the regimen. 05/09/2023: Reports "having a bad day" with more prominent, distressing visual hallucinations of "dark" figures experienced as nefarious and threatening. I'm very loath to change antipsychotic regimen right now given history of worsened psychosis with most medication changes. A record review undertaken by RN reveals a fairly strong pattern of 2-3 day periods of worsened psychosis every 2-3 weeks seemingly unrelated to whether antipsychotic regimen is changed or not. I note that venlafaxine dose is unusually low and suspect that anxiety would respond to dose more in the usual therapeutic range of ~225 mg/day. 05/08/2023: Reports "feeling OK" today, with "just little hallucinations now and then". However, there have been multiple medication changes since I last saw him 3 weeks ago and he's not on perphenazine in addition to chlorpromazine and depot haloperidol. Oral haloperidol has finally been eliminated. He says he's tolerating this regimen well. He tells me he doesn't think he's taken perphenazine ("Trilafon") before. His current chlorpromazine dose totalling 400 mg/day remains low compared to typical monotherapy doses in the 600 to 800 mg/day range but there's been a sense that it might have caused hypotension (not currently seen) in the past. Since perphenazine is, like chlorpromazine, a phenothiazine (albeit of medium rather than low potency), selecting one would appear prudent. By history as related by pt and reflected in the record, pt has done best when on both haloperidol and chlorpromazine in the past and has failed numerous trial of alternate agents. However, there's also a strong correlation between medication changes and symptoms exacerbation so I'm loath to change the phenothiazines just out of preference to minimize antipsychotics since he's currently doing well. I'll attempt to determine whether he's been documented as having taken perphenazine before. 05/07/23: Mood remains stable today, ongoing lessening of hallucination intensity since introduction of Trilafon. Tolerating Trilafon and other psychiatric medications without any side effects. Awaiting [facility] hospital placement (1) Schizophrenia: Mr. Trivedi acknowledges that his auditory hallucinations wax and wane, but today he tells me that, overall, he feels that he is doing better. He notes that, in particular, he finds that perphenazine helps, and he reports that he noticed improvement when an additional 2 mg of perphenazine was recently added. Mr Eagle also tells me that while chlorpromazine also helps with hallucinations and agitation related to the "voices," he is concerned by excess sedation in the morning and during the day. We discussed the fact that he is taking three different antipsychotic medications, and while this is helping, we're hoping to simplify the regimen. My recommendation was to start reducing the dose of chlorpromazine while titrating the dose of perphenazine. THe patient was in agreement with this plan. Requested that we maintain the availability of PRN chlorpromazine, and he suggested the addition of trazodone for sleep. We agreed to this plan and it was implemented. Thorazine reduced to 200 mg HS. Daytime doses of Thorazine (chlorpromazine) discontinued in favor of perphenazine 16 mg TID. Plan 05/23/23 *This is the first full day of increase perphenazine: Perphenazine to 16 mg 3 times daily *Continue reduced quetiapine 200 mg at bedtime, with as needed available. *Continue Haldol decanoate HAYES, but consider tapering and possibly even discontinuing this medication depending on the patient's response to quetiapine and the reduced dose of chlorpromazine. *Await [facility] hospital bed. He is currently on the waiting list. 05/22/23 *Increase perphenazine to 16 mg 3 times daily *Discontinue Thorazine 50 mg every morning and 50 mg midday. Reduce quetiapine dose to 200 mg at bedtime, with as needed available. *Continue Haldol decanoate HAYES, but consider tapering and possibly even discontinuing this medication depending on the patient's response to quetiapine and the reduced dose of chlorpromazine. *[facility] bed. He is currently on the waiting list. 05/21/2023: * increase perphenazine 8 mg BID and 2 mg daily at 1400 (see notes in Impression re: use of 3 antipsychotics) - started on 05/04/2023 * continue chlorpromazine 50 mg QAM, 50 mg midday, and 300 mg QHS - increased 04/26/2023 from 50 mg BID & 100 mg QHS * continue venlafaxine ER 150 mg daily - increased 05/09/2023 to 150 mg, started 03/28/2023 at 75 mg * continue haloperidol decanoate total of 400 mg HAYES over two days - received on 05/04/2023 and 05/05/2023 * [facility] bed (he's on the wait list) 05/20/2023: * continue perphenazine 8 mg BID (see notes in Impression re: use of 3 antipsychotics) - started on 05/04/2023 * continue chlorpromazine 50 mg QAM, 50 mg midday, and 300 mg QHS - increased 04/26/2023 from 50 mg BID & 100 mg QHS * continue venlafaxine ER 150 mg daily - increased 05/09/2023 to 150 mg, started 03/28/2023 at 75 mg * continue haloperidol decanoate total of 400 mg HAYES over two days - received on 05/04/2023 and 05/05/2023 * [facility] bed (he's on the wait list) 05/19/2023: * continue perphenazine 8 mg BID (see notes in Impression re: use of 3 antipsychotics) - started on 05/04/2023 * continue chlorpromazine 50 mg QAM, 50 mg midday, and 300 mg QHS - increased 04/26/2023 from 50 mg BID & 100 mg QHS * continue venlafaxine ER 150 mg daily - increased 05/09/2023 to 150 mg, started 03/28/2023 at 75 mg * continue haloperidol decanoate total of 400 mg HAYES over two days - received on 05/04/2023 and 05/05/2023 * [facility] bed (he's on the wait list) 05/18/2023: * continue perphenazine 8 mg BID (see notes in Impression re: use of 3 antipsychotics) - started on 05/04/2023 * continue chlorpromazine 50 mg QAM, 50 mg midday, and 300 mg QHS - increased 04/26/2023 from 50 mg BID & 100 mg QHS * continue venlafaxine ER 150 mg daily - increased 05/09/2023 to 150 mg, started 03/28/2023 at 75 mg * continue haloperidol decanoate total of 400 mg HAYES over two days - received on 05/04/2023 and 05/05/2023 * [facility] bed (he's on the wait list) 05/17/2023: * continue perphenazine 8 mg BID (see notes in Impression re: use of 3 antipsychotics) - started on 05/04/2023 * continue chlorpromazine 50 mg QAM, 50 mg midday, and 300 mg QHS - increased 04/26/2023 from 50 mg BID & 100 mg QHS * continue venlafaxine ER 150 mg daily - increased 05/09/2023 to 150 mg, started 03/28/2023 at 75 mg * continue haloperidol decanoate total of 400 mg HAYES over two days - received on 05/04/2023 and 05/05/2023 * [facility] bed (he's on the wait list) 05/16/2023: * continue perphenazine 8 mg BID (see notes in Impression re: use of 3 antipsychotics) - started on 05/04/2023 * continue chlorpromazine 50 mg QAM, 50 mg midday, and 300 mg QHS - increased 04/26/2023 from 50 mg BID & 100 mg QHS * continue venlafaxine ER 150 mg daily - increased 05/09/2023 to 150 mg, started 03/28/2023 at 75 mg * continue haloperidol decanoate total of 400 mg HAYES over two days - received on 05/04/2023 and 05/05/2023 * [facility] bed (he's on the wait list) 05/15/2023: * continue perphenazine 8 mg BID (see notes in Impression re: use of 3 antipsychotics) - started on 05/04/2023 * continue chlorpromazine 50 mg QAM, 50 mg midday, and 300 mg QHS - increased 04/26/2023 from 50 mg BID & 100 mg QHS * continue venlafaxine ER 150 mg daily - increased 05/09/2023 to 150 mg, started 03/28/2023 at 75 mg * continue haloperidol decanoate total of 400 mg HAYES over two days - received on 05/04/2023 and 05/05/2023 * [facility] bed (he's on the wait list) 05/14/2023: * continue perphenazine 8 mg BID (see notes in Impression re: use of 3 antipsychotics) - started on 05/04/2023 * continue chlorpromazine 50 mg QAM, 50 mg midday, and 300 mg QHS - increased 04/26/2023 from 50 mg BID & 100 mg QHS * continue venlafaxine ER 150 mg daily - increased 05/09/2023 to 150 mg, started 03/28/2023 at 75 mg * continue haloperidol decanoate total of 400 mg HAYES over two days - received on 05/04/2023 and 05/05/2023 * [facility] bed (he's on the wait list) 05/13/2023: * continue perphenazine 8 mg BID (see notes in Impression re: use of 3 antipsychotics) - started on 05/04/2023 * continue chlorpromazine 50 mg QAM, 50 mg midday, and 300 mg QHS - increased 04/26/2023 from 50 mg BID & 100 mg QHS * continue venlafaxine ER 150 mg daily - increased 05/09/2023 to 150 mg, started 03/28/2023 at 75 mg * continue haloperidol decanoate total of 400 mg HAYES over two days - received on 05/04/2023 and 05/05/2023 * [facility] (he's on the wait list) 05/12/2023: * continue perphenazine 8 mg BID (see notes in Impression re: use of 3 antipsychotics) - started on 05/04/2023 * continue chlorpromazine 50 mg QAM, 50 mg midday, and 300 mg QHS - increased 04/26/2023 from 50 mg BID & 100 mg QHS * continue venlafaxine ER 150 mg daily - increased 05/09/2023 to 150 mg, started 03/28/2023 at 75 mg * continue haloperidol decanoate total of 400 mg HAYES over two days - received on 05/04/2023 and 05/05/2023 * await [facility] bed (he's on the wait list) 05/11/2023: * continue perphenazine 8 mg BID (see notes in Impression re: use of 3 antipsychotics) - started on 05/04/2023 * continue chlorpromazine 50 mg QAM, 50 mg midday, and 300 mg QHS - increased 04/26/2023 from 50 mg BID & 100 mg QHS * continue venlafaxine ER 150 mg daily - increased 05/09/2023 to 150 mg, started 03/28/2023 at 75 mg * continue haloperidol decanoate total of 400 mg HAYES over two days - received on 05/04/2023 and 05/05/2023 05/10/2023: * continue perphenazine 8 mg BID for now despite concern about use of 2 phenothiazines and 3 total antipsychotics - started on 05/04/2023 * continue chlorpromazine 50 mg QAM, 50 mg midday, and 300 mg QHS - increased 04/26/2023 from 50 mg BID & 100 mg QHS * continue venlafaxine ER 150 mg daily - increased 05/09/2023 to 150 mg, started 03/28/2023 at 75 mg * continue haloperidol decanoate total of 400 mg HAYES over two days - received on 05/04/2023 and 05/05/2023 05/09/2023: * continue perphenazine 8 mg BID for now despite concern about use of 2 phenothiazines and 3 total antipsychotics - started on 05/04/2023 * continue chlorpromazine 50 mg QAM, 50 mg midday, and 300 mg QHS - increased 04/26/2023 from 50 mg BID & 100 mg QHS * increase venlafaxine ER 75 mg daily - started 03/28/2023 * continue haloperidol decanoate total of 400 mg HAYES over two days - received on 05/04/2023 and 05/05/2023 05/08/2023: * continue perphenazine 8 mg BID, though I'm fairly concerned about the use of 2 phenothiazines and 3 total antipsychotics - started on 05/04/2023 * continue chlorpromazine 50 mg QAM, 50 mg midday, and 300 mg QHS - increased 04/26/2023 from 50 mg BID & 100 mg QHS * continue venlafaxine ER 75 mg daily - started 03/28/2023 * continue haloperidol decanoate total of 400mg HAYES over two days; 200 mg HAYES - received on 05/04/2023 and 05/05/2023 05/07/2023: * Trilafon 8mg BID po --started on 05/04/2023 * Continue thorazine 50mg qAM, 50mg qafternoon and 300mg HS --increased on 04/26/2023 * continue venlafaxine ER 75 mg daily - started 03/28/2023 * continue haloperidol decanoate total of 400mg HAYES over two days; 200 mg HAYES - received on 05/04/2023 and 05/05/2023 05/06/2023: * Trilafon 8mg BID po --started on 05/04/2023 * Continue thorazine 50mg qAM, 50mg qafternoon and 300mg HS --increased on 04/26/2023 * continue venlafaxine ER 75 mg daily - started 03/28/2023 * continue haloperidol decanoate total of 400mg HAYES over two days; 200 mg HAYES - received on 05/04/2023 and 05/05/2023 05/05/2023: * Trilafon 8mg BID po --started on 05/04/2023 * Continue thorazine 50mg qAM, 50mg qafternoon and 300mg HS --increased on 04/26/2023 * continue venlafaxine ER 75 mg daily - started 03/28/2023 * continue haloperidol decanoate total of 400mg HAYES over two days; 200 mg HAYES - received on 05/04/2023 and 05/05/2023 05/02/2023: * Discontinue haldol po * Start risperidone 1mg BID with 0.5mg BID prn for hallucinations * Continue thorazine 50mg qAM, 50mg qafternoon and 300mg HS --increased on 04/26/2023 * continue venlafaxine ER 75 mg daily - started 03/28/2023 * continue haloperidol decanoate total of 400mg HAYES over two days; 200 mg HAYES - received on 04/03/2023 and additional 200mg HAYES - received on 04/05/2023; likely will hold off on next dose pending risperidone trial 04/28/2023: continue current meds and tx plan, discussed Depakote augmentation if fails to make steady improvement. 04/27/2023: slow rate of Haldol taper--resume 10 mg BID meals and monitor BP on higher dose of thorazine. If symptoms persist, he may be agreeable to trial of clozaril in place of thorazine and/or depakote. Still a week out from Haldol dec. 04/26/2023: titrate hs thorazine, continue Haldol taper (oral, patient received dec) due on or before 05/05/23. 04/25/2023: d/c hs Haldol in favor of increase in thorazine to 200 mg hs. monitor for orthostasis 04/23/2023: * Chlorpromazine 50mg qAM and 50mg qafternoon and 100mg HS - increased 04/21/2023 from 50mg HS to 100mg HS * continue haloperidol decanoate total of 400mg HAYES over two days; 200 mg HAYES - received on 04/03/2023 and additional 200mg HAYES - received on 04/05/2023 * increase haloperidol po back to 10mg TID - reduced to 5 TID on 04/21/2023 with worsening hallucinations, previously reduced to 10mg TID dose on 04/02/2023 when decanoate was started * continue venlafaxine ER 75 mg daily - started 03/28/2023 04/21/2023: * Chlorpromazine 50mg qAM and 50mg qafternoon and 100mg HS - increased 04/21/2023 from 50mg HS to 100mg HS * continue haloperidol decanoate total of 400mg HAYES over two days; 200 mg HAYES - received on 04/03/2023 and additional 200mg HAYES - received on 04/05/2023 * decrease haloperidol po to 5 mg TID - reduced from 10 mg TID, previously reduced to 10mg TID dose on 04/02/2023 when decanoate was started * continue venlafaxine ER 75 mg daily - started 03/28/2023 04/17/2023: * continue chlropromazine 50mg TID - increased 04/13/2023 from 25 mg BID & 50 mg QHS * continue haloperidol decanoate total of 400mg HAYES over two days; 200 mg HAYES - received on 04/03/2023 and additional 200mg HAYES - received on 04/05/2023 * continue haloperidol 10 mg TID - reduced to this dose on 04/02/2023 when decanoate was started * continue venlafaxine ER 75 mg daily - started 03/28/2023 04/16/2023: * continue chlropromazine 50mg TID - increased 04/13/2023 from 25 mg BID & 50 mg QHS * continue haloperidol decanoate 200 mg HAYES - received on 04/03/2023 * continue haloperidol 10 mg TID - reduced to this dose on 04/02/2023 when decanoate was started * continue venlafaxine ER 75 mg daily - started 03/28/2023 04/15/2023: * continue chlropromazine 50mg TID - increased 04/13/2023 from 25 mg BID & 50 mg QHS * continue haloperidol decanoate 200 mg HAYES - received on 04/03/2023 * continue haloperidol 10 mg TID - reduced to this dose on 04/02/2023 when decanoate was started * continue venlafaxine ER 75 mg daily - started 03/28/2023 04/14/2023: * continue chlropromazine 50mg TID - increased 04/13/2023 from 25 mg BID & 50 mg QHS * continue haloperidol decanoate 200 mg HAYES - received on 04/03/2023 * continue haloperidol 10 mg TID - reduced to this dose on 04/02/2023 when decanoate was started * continue venlafaxine ER 75 mg daily - started 03/28/2023 04/13/2023: * continue chlropromazine 25 mg QAM, 25 mg QPM, 50mg QHS - adjusted to this schedule on 04/02/2023 * continue haloperidol decanoate 200 mg HAYES - received on 04/03/2023 * continue haloperidol 10 mg TID - reduced to this dose on 04/02/2023 when decanoate was started * continue venlafaxine ER 75 mg daily - started 03/28/2023 04/12/2023: * continue chlropromazine 25 mg QAM, 25 mg QPM, 50mg QHS - adjusted to this schedule on 04/02/2023 * continue haloperidol decanoate 200 mg HAYES - received on 04/03/2023 * continue haloperidol 10 mg TID - reduced to this dose on 04/02/2023 when decanoate was started * continue venlafaxine ER 75 mg daily - started 03/28/2023 04/11/2023: * continue chlropromazine 25 mg QAM, 25 mg QPM, 50mg QHS - adjusted to this schedule on 04/02/2023 * continue haloperidol decanoate 200 mg HAYES - received on 04/03/2023 * continue haloperidol 10 mg TID - reduced to this dose on 04/02/2023 when decanoate was started * continue venlafaxine ER 75 mg daily - started 03/28/2023 04/10/2023: * continue chlropromazine 25 mg QAM, 25 mg QPM, 50mg QHS - adjusted to this schedule on 04/02/2023 * continue haloperidol decanoate 200 mg HAYES - received on 04/03/2023 * continue haloperidol 10 mg TID - reduced to this dose on 04/02/2023 when decanoate was started * continue venlafaxine ER 75 mg daily - started 03/28/2023 04/05/2023: Additional Haldol decanoate 200mg HAYES, continue po thorazine and po haldol 04/04/2023: Continue current medications and tx plan. Consider additional dose of haldol decanoate 100-200mg HAYES tomorrow. 04/03/2023: * thorazine 25mg qAM, 25mg qdinner, 50mg HS * haldol decanoate 200mg HAYES-- received on 04/03/2023 * haldol po 10mg TID * Effexor ER 75mg daily 04/02/2023: thorazine 25 mg am and pm meal, 50 mg hs with additional 25 mg prn. Patient now agreeable to Haldol dec. Will decrease to 10 mg TID as interval increase of midday dose to 20 mg has not helped with pm breakthrough. Will load 200 mg dose today with additional 100-200 mg loading and PO Haldol taper per Dr. Smith. 04/01/2023: ortho cleared patient, he can discontinue boot at his own comfort, his residual foot deformity does not require surgery 03/28/2023: diversion meeting outcome is all community resources have been exhausted and patient will remain referred to [facility]. repeat foot x ray tomorrow. Patient desires d/c trazodone. completed quality case review with [facility] peer to peer Dr. Jimenez discussing that patient has repeatedly refused clozaril and HAYES and prefers thorazine/haldol component, current doses are best for his BP. Discussed rationale for low dose Effexor XR. Patient has become agitated/disinhibited on higher doses of antidepressants in past so I would not titrate. 03/25/2023: * Consolidate thorazine to 75mg HS * Continue haldol 10mg qAM, 20mg miday and 10mg HS 03/22/2023: * increase haloperidol to 10 mg qAM, 20mg midday and 10mg HS- started this schedule 03/22/2023 * consolidate chlorpromazine to 25mg qAM and 50mg HS 03/21/2023: * continue haloperidol 10 mg TID - started this schedule 03/03/2023 * consolidate chlorpromazine to 25mg qAM and 50mg HS 03/20/2023: * continue haloperidol 10 mg TID - started this schedule 03/03/2023 * continue chlorpromazine 25 mg TID - resumed 03/17/2023 * change cogentin from HS scheduled to HS prn use for muscle stiffness to reduce polypharmacy 03/18/2023: * continue haloperidol 10 mg TID - started this schedule 03/03/2023 * continue chlorpromazine 25 mg TID - resumed 03/17/2023 * was committed for extended treatment at 304 hearing today, plan to pursue [facility] hospital transfer 03/17/2023: * continue haloperidol 10 mg TID - started this schedule 03/03/2023 * increase chlorpromazine to 25 mg TID * probable 304 hearing on February 03/07/2023: Start trazodone 100mg HS po. Continue haldol 10mg TID po 03/03/2023: unable to resume thorazine, offered to try splitting Haldol to TID to see if any improvement in orthostasis. 03/02/2023: The patient was admitted to the [facility] ([facility]) on q15 min checks (behavioral with suicide precautions) for safety. The patient will participate in group, recreational, and milieu therapies and will be offered additional individual and family sessions as clinically appropriate. Continue to hold thorazine and monitor BP. Inventory Assets Strengths: taking PO meds, cooperative with tx plan. Able to collaborate with treatment providers. Able to discuss past medications and his response to same Needs: longer term hospitalization, medical monitoring Suicide Risk Level Suicide Risk Level: Moderate (q15 min suicide checks) Suicide Risk Level Comments: The patient remains at moderate risk, primarily because of his persistent intermittent persecutory auditory hallucinations. He again reiterates that he is not experiencing suicidal thoughts, does not have any suicidal intent, and has no plan for suicide. He denies any command AH. He also convincingly assures us that he will notify staff if thoughts of self-harm emerge and has been consistently seeking out staff support when he feels overwhelmed by hallucinations. Risk Factors Assessment Male: Yes : Yes Do You Have Access To A Gun?: No Mental Health Diagnoses: Yes Previous Attempt: Yes Previous Psychiatric Hospitalization: Yes Protective Factors Assessment Employed: No Interval History Identifying Information UMBERTO EAGLE is a 52-year-old man who lives in a [place] [facility] with a history of schizophrenia, who eloped after returning to his fdc and was found by police wandering with concern for dehydration due to hot temperatures/humidity. He is on a 304 commitment as of 03/18/2023. Chief Complaint "This is another good day.". Review of Systems Sleep Information Total Hours of Sleep: 5 Sleep Comments: PRN Thorazine at 0023 for difficulty sleeping due to auditory hallucinations. Meal Information Percent Meal Consumed - Breakfast: 100 Percent Meal Consumed - Lunch: 100 Percent Meal Consumed - Dinner: 100 Nutrition Comment: Ate all of his meal. Subjective Subjective Patient was seen & assessed and interval progress reviewed with the treatment team. I also saw the patient individually [id number] for purposes of assessment and treatment planning. The patient began today's interaction by telling me that this is a good day for him. He tells me that he has not been experiencing other than the occasional, not troubling, hallucinations. He confirms that he did have some difficulty sleeping last night, but was responsive to the as needed hydroxyzine. He also reported experiencing auditory hallucinations and shortly after midnight was given a as needed dose of Thorazine. He was has been able to tolerate a lower dose of chlorpromazine at bedtime, and the omission of chlorpromazine dosages during the day. He notes that he has been feeling more alert, and has been better able to concentrate while reading and engage in other activities that require fairly assiduous attention. The patient also tells me that he likes the higher dose of quetiapine, now 16 mg 3 times daily. Reminded the patient that long-term goal will be to try to get him down to just 1 or 2 antipsychotic medications. The current goal is to taper and eliminate Thorazine, as tolerated, titrate perphenazine as indicated, and consider tapering and discontinuing Haldol Decan oate over the course of several months. The patient said that he would be in agreement with this plan, and indicates that he feels that he can trust the current treatment team. He has been fairly active in the milieu today and has been attending groups. He also enjoyed the fact that one of the social workers gave him a new supply of reading material, and he states that he has truly enjoyed reading these new box. Physical Exam Psychiatric Orientation: alert, oriented x 3, oriented to person, oriented to place, oriented to time and cooperative Apperance: appropriately dressed, appropriately groomed and + disheveled Eye Contact: good eye contact and + fair eye contact Motor Behavior: no abnormal motor movements Speech: normal rate/rhythm/volume of speech Affect: euthymic affect, + anxious affect, + blunted affect, + constricted affect (but with a smile) and mood congruent with affect; no depressed affect Mood: + anxious mood; no depressed mood Thought Process: clear/coherent thought process, + looseness of associations and + concrete thought process Thought Content: + paranoid (intermittent), reality based without delusions (for the most part), + delusions, + thought broadcasting and + persecution Suicidal Thoughts: denies suicidal thoughts, denies suicidal plan and denies osiris cidal intent Homicidal Thoughts: denies homicidal thoughts Hallucinations: + auditory hallucinations (intermittent) and + visual hallucinations (intermittently seeing people in trenchcoats, falling into a garden) Cognition: recent memory grossly intact, remote memory grossly intact, attention grossly intact and language grossly intact Estimated Intelligence: average estimated intelligence and consistent with education level Insight: + limited insight Judgment: + limited judgement Vital Signs (Past 24 Hours) Last Vital Signs Temp 36.9 C 05/23/23 06:36 Pulse 102 H 05/23/23 06:37 Resp 16 05/23/23 06:36 BP 95/65 L 05/23/23 06:37 Pulse Ox 94 05/16/23 06:55 O2 Del Method Room Air 05/16/23 06:55 Results & Data ([facility]) Current Inpatient Medications Current Inpatient Medications: Current Inpatient Medications Al Hydrox/Mg Hydrox/Simethicone (Aluminum/Magnesium Susp 30 Ml Udc) 30 ml PO Q4H PRN PRN Reason: GI Upset Stop: 06/09/23 05:14 Chlorpromazine HCl (Chlorpromazine Hcl 25 Mg Tab) 50 mg PO Q6 PRN PRN Reason: psychosis Stop: 05/31/23 18:21 Last Admin: 05/21/23 00:23 Dose: 50 mg Chlorpromazine HCl (Chlorpromazine Hcl 100 Mg Tab) 200 mg PO [facility] Stop: 06/21/23 21:59 Last Admin: 05/22/23 21:35 Dose: 200 mg Docusate Sodium (Docusate Sodium 100 Mg Cap) 200 mg PO HS JOSEMANUEL Stop: 05/31/23 21:59 Last Admin: 05/22/23 21:33 Dose: 200 mg Hydroxyzine HCl (Hydroxyzine Hcl 25 Mg Tab) 25 mg PO Q4H PRN PRN Reason: Anxiety Stop: 06/09/23 05:09 Last Admin: 05/20/23 04:36 Dose: 25 mg Hydroxyzine HCl (Hydroxyzine Hcl 25 Mg Tab) 50 mg PO HSZ PRN PRN Reason: Insomnia Stop: 06/09/23 05:11 Last Admin: 05/23/23 01:56 Dose: 50 mg Magnesium Hydroxide (Magnesium Hydroxide Susp 30 Ml Udc) 30 ml PO DAILY PRN PRN Reason: Constipation Stop: 06/09/23 05:15 Miscellaneous (Pending Order) 1 each N/A Q30D@0900 [facility] Stop: 11/29/23 08:59 Perphenazine (Perphenazine 2 Mg Tablet) 16 mg PO TID JOSEMANUEL Stop: 06/21/23 20:59 Last Admin: 05/23/23 14:17 Dose: 16 mg Trazodone HCl (Trazodone Hcl 100 Mg Tab) 100 mg PO HS JOSEMANUEL Stop: 06/21/23 21:59 Last Admin: 05/22/23 21:38 Dose: 100 mg Venlafaxine HCl (Venlafaxine Hcl Xr 150 Mg Capxr) 150 mg PO QAM JOSEMANUEL Stop: 06/09/23 08:59 Last Admin: 05/23/23 09:10 Dose: 150 mg Mental Health & Subst Abuse Tx Psychiatrist Name of Psychiatrist: Dr. Umberto Aviles Psychiatrist's Psychiatric Appointment Comment: Telehealth Therapist Name of Therapist: Chary Velasquez Therapist's Therapy Appointment Comment: [address] [place] [address] [id number], [place] [address] Post Discharge Appointments Primary Care Physician Name Of Family Doctor/PCP: You Brooks (1) Schizophrenia Schizophrenia type: unspecified Qualified Code(s): F20.9 - Schizophrenia, unspecified
[2023-05-23] MEDS: DOCUSATE SODIUM 100 MG CAP PO SCH (21:00)
[2023-05-23] MEDS: traZODone HCL 100 MG TAB PO SCH (21:00)
[2023-05-24] MEDS: PERPHENAZINE 2 MG TAB PO SCH ×3 (08:46→21:01)
[2023-05-24] MEDS: VENLAFAXINE HCL XR 150 MG CAPXR PO SCH (08:48)
--- NOTE | 2023-05-24 20:37 | Psychiatric Progress Note ---
Date of Service May 24, 2023 Impression / Recommendations Impression 52 yo man with schizophrenia with multiple recent psychiatric hospitalizations after each has eloped from [place] [facility]. [facility]. No current bed date. [facility] due to psychosis and limited ability to tolerate peers and hx of aggression with delusions 05/24/23: The patient continues to report that he is responding well to perphenazine. The dose of perphenazine has been increased to 16 mg 3 times daily, and this was the second full day of that medication at this dose. Interestingly, the patient reports this evening that he has not experienced any auditory hallucinations at all today. He does acknowledge that he feels somewhat overly sedated, but he is in agreement with the plan to continue perphenazine at the current dose while we go about decreasing his dose of other medications. He continues to await placement. 05/21/2023: Reports an "OK day", but is somewhat preoccupied with a desire to increase perphenazine. He notes that "afternoons can get bad", and he has been requesting PRN chlorpromazine in the afternoons. Discussed adding afternoon perphenazine at 1400 to see if this reduces need for PRN, as well as potentially to start transition to perphenazine as his sole phenothiazine. 05/20/2023: After I met with pt yesterday he began reporting to staff increased hallucinations and distress about them. He told them that I'd ordered a change in his medication (which is not only not the case, but in light of how well he seemed to be doing we'd discussed NOT making any changes). This morning he says he thinks it's helped to have moved AM chlorpromazine to 0700. Some staff pointed out that that's when it had initially been ordered and that some time ago he asked if it could be consolidated with his other morning medications. 05/19/2023: Requested to take AM chlorpromazine at 0700 rather than 0900 to minimize sedation that he finds detract from participation in morning groups. This seems eminently reasonable. Otherwise he reports no change and continues to do fairly well while awaiting a state hospital bed. 05/18/2023: Reports no change from recent baseline, including any new or worse symptoms nor any adverse medication effects. Comments on the construction going on outside, progress of which he's been following outside his window. 05/17/2023: Pleasant, appropriate. Offers no complaints nor reports of any adverse medication effects. He asks if I have any news of how long it might be before a bed would be available at the [facility], which unfortunately I don't. 05/16/2023: More comfortable today. Has not sought any change in medication nor requested any PRN's and is less anxious about the increase in venlafaxine XR. No adverse effect attributable to any of his medications. Has been participating appropriately in the milieu and groups. 05/15/2023: Pt became apprehensive yesterday about the increase in venlafaxine XR from 75 mg to 150 mg 3 days previously (ordered 05/09/2023, first increased dose 05/10/2023). He didn't actually report any adverse effect at all, but seemed to take this as an indication that he was doing worse. Reminded him that we'd previously discussed that the 75 mg dose is quite low and that doses of 225 mg and higher are usually required for optimal effect, especially for anxiety. Yesterday evening pt requested "more Trilafon" shortly after getting PRN chlorpromazine. Has frequently requested chlorpromazine today. When I ask reason for this, pt says he feels as if he needs more medication, but denies any new or worse symptoms, including any worsening in psychosis. My sense is that his anxieties about ensuring his treatment is adequate are being exacerbated because every other patient currently admitted is very anxious and all have obsessive- compulsive symptoms centering around medication. 05/14/2023: Says he's "doing pretty good" and reports that chronic hallucinations are below baseline level and not bothering him. Reports no adverse medication effects. Asks about going for a walk with staff (to which he's entitled per policy contingent on staff availability). 05/13/2023: Reports that he's "doing good" with "not much of hallucinations". Again voices apprehension about whether I will change his regimen of 3 antipsychotics. Denies any side effects. 05/12/2023: Says that he's "having another really good day" thus far today. He reports minimal hallucinations, saying "I don't really notice them that much if I don't think about them". Asks "you're not going to change the medication, are you?", expressing awareness of our several previous discussions about the strong recommendation in general to avoid multiple antipsychotic medications. 05/11/2023: Pt reports he's "having another good day" with minimal hallucinations. Accurately anticipates that I'll want to discuss his being on 3 antipsychotics, 2 of them phenothiazines, with a goal of formulating a plan to transition to either chlorpromazine alone or perphenazine alone, but not both. He says he feels as if he's doing very well and is fearful of relapse. He and I have already concluded that available evidence strongly supports that, for some reason, he has never done well on monotherapy with anything and has done best when on both haloperidol and chlorpromazine (the only phenothiazine he appears to have taken in the past). 05/10/2023: Reports "feeling a lot better today" and reports "the hallucinations are back under control". Discussed that this improved with no change in medication, repeating my opinion that medication changes are best avoided unless necessary but that use of 4 antipsychotics is deprecated. Pt emphasizes that he's very happy with how he's doing right now and really doesn't want to change the regimen. 05/09/2023: Reports "having a bad day" with more prominent, distressing visual hallucinations of "dark" figures experienced as nefarious and threatening. I'm very loath to change antipsychotic regimen right now given history of worsened psychosis with most medication changes. A record review undertaken by RN reveals a fairly strong pattern of 2-3 day periods of worsened psychosis every 2-3 weeks seemingly unrelated to whether antipsychotic regimen is changed or not. I note that venlafaxine dose is unusually low and suspect that anxiety would respond to dose more in the usual therapeutic range of ~225 mg/day. 05/08/2023: Reports "feeling OK" today, with "just little hallucinations now and then". However, there have been multiple medication changes since I last saw him 3 weeks ago and he's not on perphenazine in addition to chlorpromazine and depot haloperidol. Oral haloperidol has finally been eliminated. He says he's tolerating this regimen well. He tells me he doesn't think he's taken perphenazine ("Trilafon") before. His current chlorpromazine dose totalling 400 mg/day remains low compared to typical monotherapy doses in the 600 to 800 mg/day range but there's been a sense that it might have caused hypotension (not currently seen) in the past. Since perphenazine is, like chlorpromazine, a phenothiazine (albeit of medium rather than low potency), selecting one would appear prudent. By history as related by pt and reflected in the record, pt has done best when on both haloperidol and chlorpromazine in the past and has failed numerous trial of alternate agents. However, there's also a strong correlation between medication changes and symptoms exacerbation so I'm loath to change the phenothiazines just out of preference to minimize antipsychotics since he's currently doing well. I'll attempt to determine whether he's been documented as having taken perphenazine before. 05/07/23: Mood remains stable today, ongoing lessening of hallucination intensity since introduction of Trilafon. Tolerating Trilafon and other psychiatric medications without any side effects. Awaiting [facility] placement (1) Schizophrenia: Mr. Eagle tells me today that the voices have completely stopped, and that he has heard no voices at all all day longwhich is something that is reportedly very unusual for him. Of course, this history is that his auditory hallucinations wax and wane. We are pursuing the goal of consolidating his antipsychotic medication treatment to a single agent. It looks like the most likely patient from that we will be perphenazine. Thorazine is still being gradually tapered, and we will consider lowering his dose of Haldol Decanoate with the next dose in anticipation of possibly being able to discontinue haloperidol completely. Plan 05/24/23 *Continue perphenazine at a dose of 16 mg 3 times daily. Monitor for excess sedation *Continued reduced dose of Thorazine (currently 200 mg at bedtime with as needed's available) *Consider reducing the dose of Haldol decanoate with the next injection, it becomes due *Continue to await placement at the [facility]. 05/23/23 *This is the first full day of increase perphenazine: Perphenazine to 16 mg 3 times daily *Continue reduced quetiapine 200 mg at bedtime, with as needed available. *Continue Haldol decanoate HAYES, but consider tapering and possibly even discontinuing this medication depending on the patient's response to quetiapine and the reduced dose of chlorpromazine. *Await [facility] bed. He is currently on the waiting list. 05/22/23 *Increase perphenazine to 16 mg 3 times daily *Discontinue Thorazine 50 mg every morning and 50 mg midday. Reduce quetiapine dose to 200 mg at bedtime, with as needed available. *Continue Haldol decanoate HAYES, but consider tapering and possibly even discontinuing this medication depending on the patient's response to perphenazine and the reduced dose of chlorpromazine. *Await [facility] bed. He is currently on the waiting list. 05/21/2023: * increase perphenazine 8 mg BID and 2 mg daily at 1400 (see notes in Impression re: use of 3 antipsychotics) - started on 05/04/2023 * continue chlorpromazine 50 mg QAM, 50 mg midday, and 300 mg QHS - increased 04/26/2023 from 50 mg BID & 100 mg QHS * continue venlafaxine ER 150 mg daily - increased 05/09/2023 to 150 mg, started 03/28/2023 at 75 mg * continue haloperidol decanoate total of 400 mg HAYES over two days - received on 05/04/2023 and 05/05/2023 * await [facility] bed (he's on the wait list) 05/20/2023: * continue perphenazine 8 mg BID (see notes in Impression re: use of 3 antipsychotics) - started on 05/04/2023 * continue chlorpromazine 50 mg QAM, 50 mg midday, and 300 mg QHS - increased 04/26/2023 from 50 mg BID & 100 mg QHS * continue venlafaxine ER 150 mg daily - increased 05/09/2023 to 150 mg, started 03/28/2023 at 75 mg * continue haloperidol decanoate total of 400 mg HAYES over two days - received on 05/04/2023 and 05/05/2023 * await [facility] bed (he's on the wait list) 05/19/2023: * continue perphenazine 8 mg BID (see notes in Impression re: use of 3 a ntipsychotics) - started on 05/04/2023 * continue chlorpromazine 50 mg QAM, 50 mg midday, and 300 mg QHS - increased 04/26/2023 from 50 mg BID & 100 mg QHS * continue venlafaxine ER 150 mg daily - increased 05/09/2023 to 150 mg, started 03/28/2023 at 75 mg * continue haloperidol decanoate total of 400 mg HAYES over two days - received on 05/04/2023 and 05/05/2023 * [facility] bed (he's on the wait list) 05/18/2023: * continue perphenazine 8 mg BID (see notes in Impression re: use of 3 antipsychotics) - started on 05/04/2023 * continue chlorpromazine 50 mg QAM, 50 mg midday, and 300 mg QHS - increased 04/26/2023 from 50 mg BID & 100 mg QHS * continue venlafaxine ER 150 mg daily - increased 05/09/2023 to 150 mg, started 03/28/2023 at 75 mg * continue haloperidol decanoate total of 400 mg HAYES over two days - received on 05/04/2023 and 05/05/2023 * [facility] bed (he's on the wait list) 05/17/2023: * continue perphenazine 8 mg BID (see notes in Impression re: use of 3 antip sychotics) - started on 05/04/2023 * continue chlorpromazine 50 mg QAM, 50 mg midday, and 300 mg QHS - increased 04/26/2023 from 50 mg BID & 100 mg QHS * continue venlafaxine ER 150 mg daily - increased 05/09/2023 to 150 mg, started 03/28/2023 at 75 mg * continue haloperidol decanoate total of 400 mg HAYES over two days - received on 05/04/2023 and 05/05/2023 * [facility] bed (he's on the wait list) 05/16/2023: * continue perphenazine 8 mg BID (see notes in Impression re: use of 3 antipsychotics) - started on 05/04/2023 * continue chlorpromazine 50 mg QAM, 50 mg midday, and 300 mg QHS - increased 04/26/2023 from 50 mg BID & 100 mg QHS * continue venlafaxine ER 150 mg daily - increased 05/09/2023 to 150 mg, started 03/28/2023 at 75 mg * continue haloperidol decanoate total of 400 mg HAYES over two days - received on 05/04/2023 and 05/05/2023 * [facility] bed (he's on the wait list) 05/15/2023: * continue perphenazine 8 mg BID (see notes in Impression re: use of 3 antipsych otics) - started on 05/04/2023 * continue chlorpromazine 50 mg QAM, 50 mg midday, and 300 mg QHS - increased 04/26/2023 from 50 mg BID & 100 mg QHS * continue venlafaxine ER 150 mg daily - increased 05/09/2023 to 150 mg, started 03/28/2023 at 75 mg * continue haloperidol decanoate total of 400 mg HAYES over two days - received on 05/04/2023 and 05/05/2023 * [facility] bed (he's on the wait list) 05/14/2023: * continue perphenazine 8 mg BID (see notes in Impression re: use of 3 antipsychotics) - started on 05/04/2023 * continue chlorpromazine 50 mg QAM, 50 mg midday, and 300 mg QHS - increased 04/26/2023 from 50 mg BID & 100 mg QHS * continue venlafaxine ER 150 mg daily - increased 05/09/2023 to 150 mg, started 03/28/2023 at 75 mg * continue haloperidol decanoate total of 400 mg HAYES over two days - received on 05/04/2023 and 05/05/2023 * [facility] bed (he's on the wait list) 05/13/2023: * continue perphenazine 8 mg BID (see notes in Impression re: use of 3 antipsychotics) - started on 05/04/2023 * continue chlorpromazine 50 mg QAM, 50 mg midday, and 300 mg QHS - increased 04/26/2023 from 50 mg BID & 100 mg QHS * continue venlafaxine ER 150 mg daily - increased 05/09/2023 to 150 mg, started 03/28/2023 at 75 mg * continue haloperidol decanoate total of 400 mg HAYES over two days - received on 05/04/2023 and 05/05/2023 * [facility] bed (he's on the wait list) 05/12/2023: * continue perphenazine 8 mg BID (see notes in Impression re: use of 3 antipsychotics) - started on 05/04/2023 * continue chlorpromazine 50 mg QAM, 50 mg midday, and 300 mg QHS - increased 04/26/2023 from 50 mg BID & 100 mg QHS * continue venlafaxine ER 150 mg daily - increased 05/09/2023 to 150 mg, started 03/28/2023 at 75 mg * continue haloperidol decanoate total of 400 mg HAYES over two days - received on 05/04/2023 and 05/05/2023 * [facility] bed (he's on the wait list) 05/11/2023: * continue perphenazine 8 mg BID (see notes in Impression re: use of 3 antipsychotics) - started on 05/04/2023 * continue chlorpromazine 50 mg QAM, 50 mg midday, and 300 mg QHS - increased 04/26/2023 from 50 mg BID & 100 mg QHS * continue venlafaxine ER 150 mg daily - increased 05/09/2023 to 150 mg, started 03/28/2023 at 75 mg * continue haloperidol decanoate total of 400 mg HAYES over two days - received on 05/04/2023 and 05/05/2023 05/10/2023: * continue perphenazine 8 mg BID for now despite concern about use of 2 phenothiazines and 3 total antipsychotics - started on 05/04/2023 * continue chlorpromazine 50 mg QAM, 50 mg midday, and 300 mg QHS - increased 04/26/2023 from 50 mg BID & 100 mg QHS * continue venlafaxine ER 150 mg daily - increased 05/09/2023 to 150 mg, started 03/28/2023 at 75 mg * continue haloperidol decanoate total of 400 mg HAYES over two days - received on 05/04/2023 and 05/05/2023 05/09/2023: * continue perphenazine 8 mg BID for now despite concern about use of 2 phenothiazines and 3 total antipsychotics - started on 05/04/2023 * continue chlorpromazine 50 mg QAM, 50 mg midday, and 300 mg QHS - increased 04/26/2023 from 50 mg BID & 100 mg QHS * increase venlafaxine ER 75 mg daily - started 03/28/2023 * continue haloperidol decanoate total of 400 mg HAYES over two days - received on 05/04/2023 and 05/05/2023 05/08/2023: * continue perphenazine 8 mg BID, though I'm fairly concerned about the use of 2 phenothiazines and 3 total antipsychotics - started on 05/04/2023 * continue chlorpromazine 50 mg QAM, 50 mg midday, and 300 mg QHS - increased 04/26/2023 from 50 mg BID & 100 mg QHS * continue venlafaxine ER 75 mg daily - started 03/28/2023 * continue haloperidol decanoate total of 400mg HAYES over two days; 200 mg HAYES - received on 05/04/2023 and 05/05/2023 05/07/2023: * Trilafon 8mg BID po --started on 05/04/2023 * Continue thorazine 50mg qAM, 50mg qafternoon and 300mg HS --increased on 04/26/2023 * continue venlafaxine ER 75 mg daily - started 03/28/2023 * continue haloperidol decanoate total of 400mg HAYES over two days; 200 mg HAYES - received on 05/04/2023 and 05/05/2023 05/06/2023: * Trilafon 8mg BID po --started on 05/04/2023 * Continue thorazine 50mg qAM, 50mg qafternoon and 300mg HS --increased on 04/26/2023 * continue venlafaxine ER 75 mg daily - started 03/28/2023 * continue haloperidol decanoate total of 400mg HAYES over two days; 200 mg HAYES - received on 05/04/2023 and 05/05/2023 05/05/2023: * Trilafon 8mg BID po --started on 05/04/2023 * Continue thorazine 50mg qAM, 50mg qafternoon and 300mg HS --increased on 04/26/2023 * continue venlafaxine ER 75 mg daily - started 03/28/2023 * continue haloperidol decanoate total of 400mg HAYES over two days; 200 mg HAYES - received on 05/04/2023 and 05/05/2023 05/02/2023: * Discontinue haldol po * Start risperidone 1mg BID with 0.5mg BID prn for hallucinations * Continue thorazine 50mg qAM, 50mg qafternoon and 300mg HS --increased on 04/26/2023 * continue venlafaxine ER 75 mg daily - started 03/28/2023 * continue haloperidol decanoate total of 400mg HAYES over two days; 200 mg HAYES - received on 04/03/2023 and additional 200mg HAYES - received on 04/05/2023; likely will hold off on next dose pending risperidone trial 04/28/2023: continue current meds and tx plan, discussed Depakote augmentation if fails to make steady improvement. 04/27/2023: slow rate of Haldol taper--resume 10 mg BID meals and monitor BP on higher dose of thorazine. If symptoms persist, he may be agreeable to trial of clozaril in place of thorazine and/or depakote. Still a week out from Haldol dec. 04/26/2023: titrate hs thorazine, continue Haldol taper (oral, patient received dec) due on or before 05/05/23. 04/25/2023: d/c hs Haldol in favor of increase in thorazine to 200 mg hs. monitor for orthostasis 04/23/2023: * Chlorpromazine 50mg qAM and 50mg qafternoon and 100mg HS - increased 04/21/2023 from 50mg HS to 100mg HS * continue haloperidol decanoate total of 400mg HAYES over two days; 200 mg HAYES - received on 04/03/2023 and additional 200mg HAYES - received on 04/05/2023 * increase haloperidol po back to 10mg TID - reduced to 5 TID on 04/21/2023 with worsening hallucinations, previously reduced to 10mg TID dose on 04/02/2023 when decanoate was started * continue venlafaxine ER 75 mg daily - started 03/28/2023 04/21/2023: * Chlorpromazine 50mg qAM and 50mg qafternoon and 100mg HS - increased 04/21/2023 from 50mg HS to 100mg HS * continue haloperidol decanoate total of 400mg HAYES over two days; 200 mg HAYES - received on 04/03/2023 and additional 200mg HAYES - received on 04/05/2023 * decrease haloperidol po to 5 mg TID - reduced from 10 mg TID, previously reduced to 10mg TID dose on 04/02/2023 when decanoate was started * continue venlafaxine ER 75 mg daily - started 03/28/2023 04/17/2023: * continue chlropromazine 50mg TID - increased 04/13/2023 from 25 mg BID & 50 mg QHS * continue haloperidol decanoate total of 400mg HAYES over two days; 200 mg HAYES - received on 04/03/2023 and additional 200mg HAYES - received on 04/05/2023 * continue haloperidol 10 mg TID - reduced to this dose on 04/02/2023 when decanoate was started * continue venlafaxine ER 75 mg daily - started 03/28/2023 04/16/2023: * continue chlropromazine 50mg TID - increased 04/13/2023 from 25 mg BID & 50 mg QHS * continue haloperidol decanoate 200 mg HAYES - received on 04/03/2023 * continue haloperidol 10 mg TID - reduced to this dose on 04/02/2023 when decanoate was started * continue venlafaxine ER 75 mg daily - started 03/28/2023 04/15/2023: * continue chlropromazine 50mg TID - increased 04/13/2023 from 25 mg BID & 50 mg QHS * continue haloperidol decanoate 200 mg HAYES - received on 04/03/2023 * continue haloperidol 10 mg TID - reduced to this dose on 04/02/2023 when decanoate was started * continue venlafaxine ER 75 mg daily - started 03/28/2023 04/14/2023: * continue chlropromazine 50mg TID - increased 04/13/2023 from 25 mg BID & 50 mg QHS * continue haloperidol decanoate 200 mg HAYES - received on 04/03/2023 * continue haloperidol 10 mg TID - reduced to this dose on 04/02/2023 when decanoate was started * continue venlafaxine ER 75 mg daily - started 03/28/2023 04/13/2023: * continue chlropromazine 25 mg QAM, 25 mg QPM, 50mg QHS - adjusted to this schedule on 04/02/2023 * continue haloperidol decanoate 200 mg HAYES - received on 04/03/2023 * continue haloperidol 10 mg TID - reduced to this dose on 04/02/2023 when decanoate was started * continue venlafaxine ER 75 mg daily - started 03/28/2023 04/12/2023: * continue chlropromazine 25 mg QAM, 25 mg QPM, 50mg QHS - adjusted to this schedule on 04/02/2023 * continue haloperidol decanoate 200 mg HAYES - received on 04/03/2023 * continue haloperidol 10 mg TID - reduced to this dose on 04/02/2023 when decanoate was started * continue venlafaxine ER 75 mg daily - started 03/28/2023 04/11/2023: * continue chlropromazine 25 mg QAM, 25 mg QPM, 50mg QHS - adjusted to this schedule on 04/02/2023 * continue haloperidol decanoate 200 mg HAYES - received on 04/03/2023 * continue haloperidol 10 mg TID - reduced to this dose on 04/02/2023 when decanoate was started * continue venlafaxine ER 75 mg daily - started 03/28/2023 04/10/2023: * continue chlropromazine 25 mg QAM, 25 mg QPM, 50mg QHS - adjusted to this schedule on 04/02/2023 * continue haloperidol decanoate 200 mg HAYES - received on 04/03/2023 * continue haloperidol 10 mg TID - reduced to this dose on 04/02/2023 when decanoate was started * continue venlafaxine ER 75 mg daily - started 03/28/2023 04/05/2023: Additional Haldol decanoate 200mg HAYES, continue po thorazine and po haldol 04/04/2023: Continue current medications and tx plan. Consider additional dose of haldol decanoate 100-200mg HAYES tomorrow. 04/03/2023: * thorazine 25mg qAM, 25mg qdinner, 50mg HS * haldol decanoate 200mg HAYES-- received on 04/03/2023 * haldol po 10mg TID * Effexor ER 75mg daily 04/02/2023: thorazine 25 mg am and pm meal, 50 mg hs with additional 25 mg prn. Patient now agreeable to Haldol dec. Will decrease to 10 mg TID as interval increase of midday dose to 20 mg has not helped with pm breakthrough. Will load 200 mg dose today with additional 100-200 mg loading and PO Haldol taper per Dr. Smith. 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 repeat foot x ray tomorrow. Patient desires d/c trazodone. completed quality case review with [facility] peer to peer Dr. Jimenez discussing that patient has repeatedly refused clozaril and HAYES and prefers thorazine/haldol component, current doses are best for his BP. Discussed rationale for low dose Effexor XR. Patient has become agitated/disinhibited on higher doses of antidepressants in past so I would not titrate. 03/25/2023: * Consolidate thorazine to 75mg HS * Continue haldol 10mg qAM, 20mg miday and 10mg HS 03/22/2023: * increase haloperidol to 10 mg qAM, 20mg midday and 10mg HS- started this schedule 03/22/2023 * consolidate chlorpromazine to 25mg qAM and 50mg HS 03/21/2023: * continue haloperidol 10 mg TID - started this schedule 03/03/2023 * consolidate chlorpromazine to 25mg qAM and 50mg HS 03/20/2023: * continue haloperidol 10 mg TID - started this schedule 03/03/2023 * continue chlorpromazine 25 mg TID - resumed 03/17/2023 * change cogentin from HS scheduled to HS prn use for muscle stiffness to reduce polypharmacy 03/18/2023: * continue haloperidol 10 mg TID - started this schedule 03/03/2023 * continue chlorpromazine 25 mg TID - resumed 03/17/2023 * was committed for extended treatment at 304 hearing today, plan to pursue [facility] transfer 03/17/2023: * continue haloperidol 10 mg TID - started this schedule 03/03/2023 * increase chlorpromazine to 25 mg TID * probable 304 hearing on February 03/07/2023: Start trazodone 100mg HS po. Continue haldol 10mg TID po 03/03/2023: unable to resume thorazine, offered to try splitting Haldol to TID to see if any improvement in orthostasis. 03/02/2023: The patient was admitted to the [facility] ([facility]) on q15 min checks (behavioral with suicide precautions) for safety. The patient will participate in group, recreational, and milieu therapies and will be offered additional individual and family sessions as clinically appropriate. Continue to hold thorazine and monitor BP. Inventory Assets Strengths: taking PO meds, cooperative with tx plan. Able to collaborate with treatment providers. Able to discuss past medications and his response to same Needs: longer term hospitalization, medical monitoring Suicide Risk Level Suicide Risk Level: Moderate (q15 min suicide checks) Suicide Risk Level Comments: The patient remains at moderate risk, primarily because of his persistent intermittent persecutory auditory hallucinations. He again reiterates that he is not experiencing suicidal thoughts, does not have any suicidal intent, and has no plan for suicide. He denies any command AH. He also convincingly assures us that he will notify staff if thoughts of self-harm emerge and has been consistently seeking out staff support when he feels overwhelmed by hallucinations. Risk Factors Assessment Male: Yes : Yes Do You Have Access To A Gun?: No Mental Health Diagnoses: Yes Previous Attempt: Yes Previous Psychiatric Hospitalization: Yes Protective Factors Assessment [employer] Beliefs: No : No Responsible for Young Children: No Employed: No Stable Relationships: No Supportive Family: No Interval History Identifying Information UMBERTO EAGLE is a 52-year-old man who lives in a [place] [facility] [place] [facility] with a history of schizophrenia, who el[place] his [place] [facility] [place] and was found by police wandering with concern for dehydration due to hot temperatures/humidity. He is on a 304 commitment as of 03/18/2023. Chief Complaint "I'm doing good." Review of Systems Sleep Information Total Hours of Sleep: 6.5 Sleep Comments: RODRICK Gallo at 0023 for difficulty sleeping due to auditory hallucinations. Meal Information Percent Meal Consumed - Breakfast: 100 Percent Meal Consumed - Lunch: 100 Percent Meal Consumed - Dinner: 100 Nutrition Comment: Ate all of his meal. Subjective Subjective Patient was seen & assessed and interval progress reviewed with the treatment team. I also met one-on-one with the patient in order to assess his response to treatment, provide supportive encouragement, and also to make any medically necessary change in the patient's treatment plan. As noted previously, we have increased his dose of perphenazine. Currently, he is taking perphenazine 16 mg 3 times daily, as well as trazodone at bedtime, with a reduced dose of chlorpromazine. Chlorpromazine during the day was discontinued, and his bedtime dose is now 200 mg, with as needed chlorpromazine available to him. Today, he tells me that he may feel slightly oversedated by the perphenazine, but tells me with a smile that he has not been hearing any voices at all today and that they seem to have completely stopped. (He reportedly did hear voices last night.) He has been active in the milieu, regularly attending groups, and he has been engaged in certain solitary activities, primarily having to do with reading books that were provided to him by the social science analyst. Plan is to work towards eliminating 2 of the 3 antipsychotic medications the patient is currently taking. Right now, the patient tells me that he firmly believes that perphenazine has worked better than any of the other medications that he is taken, and he tells me that he is on board with the idea of gradually lowering and then discontinuing Haldol Decanoate, and, severally, gradually lowering and possibly discontinuing promazine. No delusional material is reported today. For the second night in a row, the dietetics department neglected to bring his dinner tray, and he responded with a strong, and did not incorporate this into any delusional system, but, instead, smiled and said "I will not starve. I can wait." Physical Exam Psychiatric Oriented to person, place, time and situation. Clean, but slightly disheveled. Fair eye contact No abnormal involuntary movements on examination. Patient's speech is spontaneous and delivered a normal rate and rhythm. Constricted, the patient does smile appropriately and is fairly engaging. "My mood has been good." The patient's associations are tight and goal-directed. No delusional material is identified in the patient's thought content today. Patient reports that he is not experiencing any suicidal thoughts. He has reconfirmed that he will notify staff should any such thoughts arise. The patient has confirmed that he has no thoughts of causing physical harm to the person or property of others. Perceptual disturbances have continued to occur in the form of auditory hallucinations. However, these have become far less frequent, for less distracting, and, today, at the end of the day, he notes that he has experienced absolutely no hallucinations all day long. This is significant for this particular patient. Patient and remote memory are grossly intact. He recalls the details of our daily discussions, and is astonishingly conversant with medication options, dosage eating and adverse effects. Above average intelligence The patient has a surprising amount of insight, and often can give voice to the fact that the auditory hallucinations are exactly that, "auditory hallucinations." At least fair Vital Signs (Past 24 Hours) Last Vital Signs Temp 36.8 C 05/24/23 06:35 Pulse 99 H 05/24/23 06:35 Resp 16 05/24/23 06:35 BP 100/68 05/24/23 06:35 Pulse Ox 94 05/16/23 06:55 O2 Del Method Room Air 05/16/23 06:55 The physical exam completed in the emergency room has been accepted for the purposes of medical clearance to the behavioral health unit. Results & Data ([facility]) Current Inpatient Medications Current Inpatient Medications: Current Inpatient Medications Al Hydrox/Mg Hydrox/Simethicone (Aluminum/Magnesium Susp 30 Ml Udc) 30 ml PO Q4H PRN PRN Reason: GI Upset Stop: 06/09/23 05:14 Chlorpromazine HCl (Chlorpromazine Hcl 25 Mg Tab) 50 mg PO Q6 PRN PRN Reason: psychosis Stop: 05/31/23 18:21 Last Admin: 05/21/23 00:23 Dose: 50 mg Chlorpromazine HCl (Chlorpromazine Hcl 100 Mg Tab) 200 mg PO HS JOSEMANUEL Stop: 06/21/23 21:59 Last Admin: 05/23/23 20:59 Dose: 200 mg Docusate Sodium (Docusate Sodium 100 Mg Cap) 200 mg PO HS JOSEMANUEL Stop: 05/31/23 21:59 Last Admin: 05/23/23 21:00 Dose: 200 mg Hydroxyzine HCl (Hydroxyzine Hcl 25 Mg Tab) 25 mg PO Q4H PRN PRN Reason: Anxiety Stop: 06/09/23 05:09 Last Admin: 05/20/23 04:36 Dose: 25 mg Hydroxyzine HCl (Hydroxyzine Hcl 25 Mg Tab) 50 mg PO HSZ PRN PRN Reason: Insomnia Stop: 06/09/23 05:11 Last Admin: 05/23/23 01:56 Dose: 50 mg Magnesium Hydroxide (Magnesium Hydroxide Susp 30 Ml Udc) 30 ml PO DAILY PRN PRN Reason: Constipation Stop: 06/09/23 05:15 Miscellaneous (Pending Order) 1 each N/A Q30D@0900 JOSEMANUEL Stop: 11/29/23 08:59 Perphenazine (Perphenazine 2 Mg Tablet) 16 mg PO TID JOSEMANUEL Stop: 06/21/23 20:59 Last Admin: 05/24/23 13:19 Dose: 16 mg Trazodone HCl (Trazodone Hcl 100 Mg Tab) 100 mg PO HS JOSEMANUEL Stop: 06/21/23 21:59 Last Admin: 05/23/23 21:00 Dose: 100 mg Venlafaxine HCl (Venlafaxine Hcl Xr 150 Mg Capxr) 150 mg PO QAM [facility]SEMANUEL Stop: 06/09/23 08:59 Last Admin: 05/24/23 08:48 Dose: 150 mg Mental Health & Subst Abuse Tx Psychiatrist Name of Psychiatrist: Dr. Umberto Aviles Psychiatrist's Psychiatric Appointment Comment: Telehealth Therapist Name of Therapist: Chary Velasquez Therapist's Therapy Appointment Comment: [address] [place] [address] [address], [place] [address] Post Discharge Appointments Primary Care Physician Name Of Family Doctor/PCP: You Brooks (1) Schizophrenia Schizophrenia type: unspecified Qualified Code(s): F20.9 - Schizophrenia, unspecified
[2023-05-24] MEDS: DOCUSATE SODIUM 100 MG CAP PO SCH (21:01)
[2023-05-24] MEDS: traZODone HCL 100 MG TAB PO SCH (21:01)
[2023-05-25] MEDS: hydrOXYzine HCl 25 MG TAB PO PRN (03:21)
[2023-05-25] MEDS: PERPHENAZINE 2 MG TAB PO SCH ×3 (09:11→20:49)
[2023-05-25] MEDS: VENLAFAXINE HCL XR 150 MG CAPXR PO SCH (09:11)
--- NOTE | 2023-05-25 14:22 | Psychiatric Progress Note ---
Date of Service May 25, 2023 Impression / Recommendations Impression 52 yo man with schizophrenia with multiple recent psychiatric hospitalizations after each has eloped from his skilled nursing. On 304 commitment and accepted to [facility]. No current bed date. MNPR due to psychosis and limited ability to tolerate peers and hx of aggression with delusions 05/25/23: cooperative with care, significant decrease in visual fall. (1) Schizophrenia: Plan continue current medications and tx plan. Inventory Assets Strengths: taking PO meds, cooperative with tx plan. Able to collaborate with treatment providers. Able to discuss past medications and his response to same Needs: longer term hospitalization, medical monitoring Suicide Risk Level Suicide Risk Level: Moderate (q15 min suicide checks) Risk Factors Assessment Male: Yes : Yes Do You Have Access To A Gun?: No Mental Health Diagnoses: Yes Previous Attempt: Yes Previous Psychiatric Hospitalization: Yes Protective Factors Assessment [employer]ze Beliefs: No : No Responsible for Young Children: No Employed: No Stable Relationships: No Supportive Family: No Interval History Identifying Information CASEY DAMIAN is a 52-year-old man who lives in a [place] psychiatric skilled nursing with a history of schizophrenia, who eloped after returning to his skilled nursing and was found by police wandering with concern for dehydration due to hot temperatures/humidity. He is on a 304 commitment as of 03/18/2023. Chief Complaint "my visual hallucinations are better." Review of Systems Sleep Information Total Hours of Sleep: 6.5 Meal Information Percent Meal Consumed - Breakfast: 100 Percent Meal Consumed - Lunch: 100 Percent Meal Consumed - Dinner: 100 Nutrition Comment: Ate all of his meal. Subjective Subjective Patient was seen & assessed and interval progress reviewed with nursing and social work. No acute issues. Tolerating medication and notes interval improvement. Met with CM. No date for [facility]. Physical Exam Psychiatric alert, cooperative, no abnormal motor movements, thoughts concrete but organized, affect brightens spontaneously. No SI/HI/fall/del. Vital Signs (Past 24 Hours) Last Vital Signs Temp 36.5 C 05/25/23 06:43 Pulse 84 05/25/23 06:43 Resp 16 05/25/23 06:43 BP 108/72 05/25/23 06:43 Pulse Ox 94 05/16/23 06:55 O2 Del Method Room Air 05/16/23 06:55 Results & Data ([facility] [[email or web address] Current Inpatient Medications Current Inpatient Medications: Current Inpatient Medications Al Hydrox/Mg Hydrox/Simethicone (Aluminum/Magnesium Susp 30 Ml Udc) 30 ml PO Q4H PRN PRN Reason: GI Upset Stop: 06/09/23 05:14 Chlorpromazine HCl (Chlorpromazine Hcl 25 Mg Tab) 50 mg PO Q6 PRN PRN Reason: psychosis Stop: 05/31/23 18:21 Last Admin: 05/21/23 00:23 Dose: 50 mg Chlorpromazine HCl (Chlorpromazine Hcl 100 Mg Tab) 200 mg PO HS [facility] Stop: 06/21/23 21:59 Last Admin: 05/24/23 21:02 Dose: 200 mg Docusate Sodium (Docusate Sodium 100 Mg Cap) 200 mg PO HS [facility] Stop: 05/31/23 21:59 Last Admin: 05/24/23 21:01 Dose: 200 mg Hydroxyzine HCl (Hydroxyzine Hcl 25 Mg Tab) 25 mg PO Q4H PRN PRN Reason: Anxiety Stop: 06/09/23 05:09 Last Admin: 05/20/23 04:36 Dose: 25 mg Hydroxyzine HCl (Hydroxyzine Hcl 25 Mg Tab) 50 mg PO HSZ PRN PRN Reason: Insomnia Stop: 06/09/23 05:11 Last Admin: 05/25/23 03:21 Dose: 50 mg Magnesium Hydroxide (Magnesium Hydroxide Susp 30 Ml Udc) 30 ml PO DAILY PRN PRN Reason: Constipation Stop: 06/09/23 05:15 Miscellaneous (Pending Order) 1 each N/A Q30D@0900 [facility] Stop: 11/29/23 08:59 Perphenazine (Perphenazine 2 Mg Tablet) 16 mg PO TID [facility] Stop: 06/21/23 20:59 Last Admin: 05/25/23 14:11 Dose: 16 mg Trazodone HCl (Trazodone Hcl 100 Mg Tab) 100 mg PO HS [facility] Stop: 06/21/23 21:59 Last Admin: 05/24/23 21:01 Dose: 100 mg Venlafaxine HCl (Venlafaxine Hcl Xr 150 Mg Capxr) 150 mg PO QAM [facility] Stop: 06/09/23 08:59 Last Admin: 05/25/23 09:11 Dose: 150 mg Mental Health & Subst Abuse Tx Psychiatrist Name of Psychiatrist: Dr. Casey Aviles Psychiatrist's Psychiatric Appointment Comment: Telehealth Therapist Name of Therapist: Chary Velasquez Therapist's Therapy Appointment Comment: [address] [place] [address] [address], [place] [address] Post Discharge Appointments Primary Care Physician Name Of Family Doctor/PCP: You - Dr. Brooks (1) Schizophrenia Schizophrenia type: unspecified Qualified Code(s): F20.9 - Schizophrenia, unspecified
[2023-05-25] MEDS: traZODone HCL 100 MG TAB PO SCH (20:49)
[2023-05-25] MEDS: DOCUSATE SODIUM 100 MG CAP PO SCH (20:49)
[2023-05-26] MEDS: hydrOXYzine HCl 25 MG TAB PO PRN (02:42)
[2023-05-26] MEDS: VENLAFAXINE HCL XR 150 MG CAPXR PO SCH (08:31)
[2023-05-26] MEDS: PERPHENAZINE 2 MG TAB PO SCH ×3 (08:32→20:32)
--- NOTE | 2023-05-26 18:46 | Psychiatric Progress Note ---
Date of Service May 26, 2023 Impression / Recommendations Impression 52 yo man with schizophrenia with multiple recent psychiatric hospitalizations after each has eloped from his skilled nursing. [facility]. [facility]PR due to psychosis and limited ability to tolerate peers and hx of aggression with delusions 05/26/23: stable in [facility] but would readily decompensate in community. Plan: continue current meds and tx plan, EKG to eval QTc, Lytes in am to monitor for hyponatremia on polypharmacy with antipsychotics. No polydipsia noted by staff. (1) Schizophrenia: Inventory Assets Strengths: taking PO meds, cooperative with tx plan. Able to collaborate with treatment providers. Able to discuss past medications and his response to same Needs: longer term hospitalization, medical monitoring Suicide Risk Level Suicide Risk Level: Moderate (q15 min suicide checks) Risk Factors Assessment Male: Yes : Yes Do You Have Access To A Gun?: No Mental Health Diagnoses: Yes Previous Attempt: Yes Previous Psychiatric Hospitalization: Yes Protective Factors Assessment Restorationism Beliefs: No : No Responsible for Young Children: No Employed: No Stable Relationships: No Supportive Family: No Interval History Identifying Information UMBERTO DAMIAN is a 52-year-old man who lives in a [place] [facility] skilled nursing with a history of schizophrenia, who eloped after returning to his skilled nursing and was found by police wandering with concern for dehydration due to hot temperatures/humidity. He is on a 304 commitment as of 03/18/2023. Chief Complaint awaiting [facility] placement. Review of Systems Sleep Information Total Hours of Sleep: 5.5 Meal Information Percent Meal Consumed - Breakfast: 100 Percent Meal Consumed - Lunch: 100 Percent Meal Consumed - Dinner: 100 Nutrition Comment: Ate all of his meal. Subjective Subjective Patient was seen & assessed and interval progress reviewed with treatment team. No acute issues. Med compliant. minimal visual fall. Physical Exam Psychiatric alert, cooperative, concrete but pleasant, more spontaneous in conversation, did not appear to be responding to internal stimuli. denies EPS. No abnormal motor movements. Vital Signs (Past 24 Hours) Last Vital Signs Temp 36.9 C 05/26/23 06:57 Pulse 79 05/26/23 06:58 Resp 16 05/26/23 06:57 BP 117/80 05/26/23 06:58 Pulse Ox 94 05/16/23 06:55 O2 Del Method Room Air 11/26/23 06:55 The physical exam completed in the emergency room has been accepted for the purposes of medical clearance to the behavioral health unit. Results & Data (U) Current Inpatient Medications Current Inpatient Medications: Current Inpatient Medications Al Hydrox/Mg Hydrox/Simethicone (Aluminum/Magnesium Susp 30 Ml Udc) 30 ml PO Q4H PRN PRN Reason: GI Upset Stop: 06/09/23 05:14 Chlorpromazine HCl (Chlorpromazine Hcl 25 Mg Tab) 50 mg PO Q6 PRN PRN Reason: psychosis Stop: 05/31/23 18:21 Last Admin: 05/21/23 00:23 Dose: 50 mg Chlorpromazine HCl (Chlorpromazine Hcl 100 Mg Tab) 200 mg PO HS [facility] Stop: 06/21/23 21:59 Last Admin: 05/25/23 20:49 Dose: 200 mg Docusate Sodium (Docusate Sodium 100 Mg Cap) 200 mg PO HS [facility] Stop: 05/31/23 21:59 Last Admin: 05/25/23 20:49 Dose: 200 mg Hydroxyzine HCl (Hydroxyzine Hcl 25 Mg Tab) 25 mg PO Q4H PRN PRN Reason: Anxiety Stop: 06/09/23 05:09 Last Admin: 05/20/23 04:36 Dose: 25 mg Hydroxyzine HCl (Hydroxyzine Hcl 25 Mg Tab) 50 mg PO HSZ PRN PRN Reason: Insomnia Stop: 06/09/23 05:11 Last Admin: 05/26/23 02:42 Dose: 50 mg Magnesium Hydroxide (Magnesium Hydroxide Susp 30 Ml Udc) 30 ml PO DAILY PRN PRN Reason: Constipation Stop: 06/09/23 05:15 Miscellaneous (Pending Order) 1 each N/A Q30D@0900 [facility] Stop: 11/29/23 08:59 Perphenazine (Perphenazine 2 Mg Tablet) 16 mg PO TID [facility] Stop: 06/21/23 20:59 Last Admin: 05/26/23 13:24 Dose: 16 mg Trazodone HCl (Trazodone Hcl 100 Mg Tab) 100 mg PO HS [facility] Stop: 06/21/23 21:59 Last Admin: 05/25/23 20:49 Dose: 100 mg Venlafaxine HCl (Venlafaxine Hcl Xr 150 Mg Capxr) 150 mg PO QAM [facility]EL Stop: 06/09/23 08:59 Last Admin: 05/26/23 08:31 Dose: 150 mg Mental Health & Subst Abuse Tx Psychiatrist Name of Psychiatrist: Dr. Umberto Aviles Psychiatrist's Psychiatric Appointment Comment: Telehealth Therapist Name of Therapist: Chary Velasquez Therapist's Therapy Appointment Comment: [address] [place] [address] [address], [place] [address] Post Discharge Appointments Primary Care Physician Name Of Family Doctor/PCP: You Brooks (1) Schizophrenia Schizophrenia type: unspecified Qualified Code(s): F20.9 - Schizophrenia, unspecified
[2023-05-26] MEDS: DOCUSATE SODIUM 100 MG CAP PO SCH (20:34)
[2023-05-26] MEDS: traZODone HCL 100 MG TAB PO SCH (20:35)
[2023-05-27] MEDS: hydrOXYzine HCl 25 MG TAB PO PRN (04:22)
[2023-05-27] MEDS: VENLAFAXINE HCL XR 150 MG CAPXR PO SCH (08:41)
[2023-05-27] MEDS: PERPHENAZINE 2 MG TAB PO SCH ×3 (08:42→20:46)
[2023-05-27 08:46] LABS: Potassium 4.3 mmol/L (3.5-5.1)
--- NOTE | 2023-05-27 14:31 | Electrocardiogram Report ---
Test Reason : Blood Pressure : / mmHG Vent. Rate : 079 BPM Atrial Rate : 079 BPM P-R Int : 174 ms QRS Dur : 074 ms QT Int : 370 ms P-R-T Axes : 047 -29 043 degrees QTc Int : 424 ms Normal sinus rhythm Normal ECG When compared with ECG of 28-FEB-2023 14:07, No significant change was found Confirmed by Steven Acuña ([id number]) on 05/27/2023 2:31:06 PM Referred By: REFERRED SELF Confirmed By:Steven Acuña
--- NOTE | 2023-05-27 15:30 | Psychiatric Progress Note ---
Date of Service May 27, 2023 Impression / Recommendations Impression 52 yo man with schizophrenia with multiple recent psychiatric hospitalizations after each has eloped from his long-term. On 304 commitment and accepted to [facility]. No current bed date. MNPR due to psychosis and limited ability to tolerate peers and hx of aggression with delusions 05/27/23: stable in [facility]structure of hospital but would readily decompensate in community. (1) Schizophrenia: Plan 05/27/23: continue current medication and tx plan. Given the patient's length of stay, a general rather than daily summary of interventions from day 1-86 (03/02/23-05/26/23) will follow. Upon admission, the patient's thorazine had to be held and there were attempts to split Haldol dosing given orthostatic hypotension and fall risk with foot fracture. A 304 hearing was held on 03/18/23. Thorazine was reintroduced on 03/17 but did not result in any decrease in Haldol dosing. A diversion meeting was held on 03/28/2023. He was cleared by ortho re: use of boot for foot on 04/01/23. He had declined trials of Clozaril and adjunctive depakote but was amenable to Haldol dec to decrease number of overall pills (04/03 & ). He was not able to taper H aldol PO without an increase in his psychotic symptoms. He was started on a trial of Trilafon on 05/04/23 with benefit. 2nd dose of Haldol dec (400 mg total) was given on 05/04 & 05/05. Trilafon was increased again to 16 mg TID on 05/23/23. Inventory Assets Strengths: taking PO meds, cooperative with tx plan. Able to collaborate with treatment providers. Able to discuss past medications and his response to same Needs: longer term hospitalization, medical monitoring Suicide Risk Level Suicide Risk Level: Moderate (q15 min suicide checks) Risk Factors Assessment Male: Yes : Yes Do You Have Access To A Gun?: No Mental Health Diagnoses: Yes Previous Attempt: Yes Previous Psychiatric Hospitalization: Yes Protective Factors Assessment Catholic Beliefs: No : No Responsible for Young Children: No Employed: No Stable Relationships: No Supportive Family: No Interval History Identifying Information UMBERTO DAMIAN is a 52-year-old man who lives in a [place] [facility] long-term with a history of schizophrenia, who eloped after returning to his long-term and was found by police wandering with concern for dehydration due to hot temperatures/humidity. He is on a 304 commitment as of 03/18/2023. Chief Complaint awaiting placement Review of Systems Sleep Information Total Hours of Sleep: 6 Meal Information Percent Meal Consumed - Breakfast: 100 Percent Meal Consumed - Lunch: 100 Percent Meal Consumed - Dinner: 100 Nutrition Comment: Ate all of his meal. Subjective Subjective Patient was seen & assessed and interval progress reviewed with nursing and social work. Patient had no issues overnight, denies worsening of his fall but has been more withdrawn to room. Physical Exam Psychiatric alert, cooperative, concrete but pleasant, more spontaneous in conversation, did not appear to be responding to internal stimuli. denies EPS. No abnormal motor movements. Vital Signs (Past 24 Hours) Last Vital Signs Temp 36.8 C 05/27/23 06:32 Pulse 90 05/27/23 06:33 Resp 16 05/27/23 06:32 BP 102/69 05/27/23 06:33 Pulse Ox 94 05/16/23 06:55 O2 Del Method Room Air 05/16/23 06:55 Results & Data ([facility]) Laboratory Results Laboratory Results - last 24 hr 05/27/23 07:58 Sodium 139 Potassium 4.3 Chloride 106 Carbon Dioxide 29 Anion Gap 4 Diagnostic Findings EKG reviewed. QTc 424 Current Inpatient Medications Current Inpatient Medications: Current Inpatient Medications Al Hydrox/Mg Hydrox/Simethicone (Aluminum/Magnesium Susp 30 Ml Udc) 30 ml PO Q4H PRN PRN Reason: GI Upset Stop: 06/09/23 05:14 Chlorpromazine HCl (Chlorpromazine Hcl 25 Mg Tab) 50 mg PO Q6 PRN PRN Reason: psychosis Stop: 05/31/23 18:21 Last Admin: 05/21/23 00:23 Dose: 50 mg Chlorpromazine HCl (Chlorpromazine Hcl 100 Mg Tab) 200 mg PO HS JOSEMANUEL Stop: 06/21/23 21:59 Last Admin: 05/26/23 20:33 Dose: 200 mg Docusate Sodium (Docusate Sodium 100 Mg Cap) 200 mg PO HS JOSEMANUEL Stop: 05/31/23 21:59 Last Admin: 05/26/23 20:34 Dose: 200 mg Hydroxyzine HCl (Hydroxyzine Hcl 25 Mg Tab) 25 mg PO Q4H PRN PRN Reason: Anxiety Stop: 06/09/23 05:09 Last Admin: 05/27/23 04:22 Dose: 25 mg Hydroxyzine HCl (Hydroxyzine Hcl 25 Mg Tab) 50 mg PO HSZ PRN PRN Reason: Insomnia Stop: 06/09/23 05:11 Last Admin: 05/26/23 02:42 Dose: 50 mg Magnesium Hydroxide (Magnesium Hydroxide Susp 30 Ml Udc) 30 ml PO DAILY PRN PRN Reason: Constipation Stop: 06/09/23 05:15 Miscellaneous (Pending Order) 1 each N/A Q30D@0900 JOSEMANUEL Stop: 11/29/23 08:59 Perphenazine (Perphenazine 2 Mg Tablet) 16 mg PO TID JOSEMANUEL Stop: 06/21/23 20:59 Last Admin: 05/27/23 13:42 Dose: 16 mg Trazodone HCl (Trazodone Hcl 100 Mg Tab) 100 mg PO HS JOSEMANUEL Stop: 06/21/23 21:59 Last Admin: 05/26/23 20:35 Dose: 100 mg Venlafaxine HCl (Venlafaxine Hcl Xr 150 Mg Capxr) 150 mg PO QAM JOSEMANUEL Stop: 06/09/23 08:59 Last Admin: 05/27/23 08:41 Dose: 150 mg Mental Health & Subst Abuse Tx Psychiatrist Name of Psychiatrist: Dr. Umberto Aviles Psychiatrist's Psychiatric Appointment Comment: Telehealth Therapist Name of Therapist: Chary Velasquez Therapist's Therapy Appointment Comment: [address] [place] [id number] [address], [place] [address] Post Discharge Appointments Primary Care Physician Name Of Family Doctor/PCP: You Brooks (1) Schizophrenia Schizophrenia type: unspecified Qualified Code(s): F20.9 - Schizophrenia, unspecified
[2023-05-27] MEDS: traZODone HCL 100 MG TAB PO SCH (20:46)
[2023-05-27] MEDS: DOCUSATE SODIUM 100 MG CAP PO SCH (20:46)
[2023-05-28] MEDS: hydrOXYzine HCl 25 MG TAB PO PRN (04:50)
[2023-05-28] MEDS: PERPHENAZINE 2 MG TAB PO SCH ×3 (08:37→20:39)
[2023-05-28] MEDS: VENLAFAXINE HCL XR 150 MG CAPXR PO SCH (08:37)
--- NOTE | 2023-05-28 15:04 | Psychiatric Progress Note ---
Date of Service May 28, 2023 Impression / Recommendations Impression 52 yo man with schizophrenia with multiple recent psychiatric hospitalizations after [facility]. On 304 commitment and accepted to [facility]. No current bed date. MNPR due to psychosis and limited ability to tolerate peers and hx of aggression with delusions 05/28/23: He is cooperative but typically becomes a bit suspicious toward the end of the his 15-20 min grounds privileges even with staff support. Even when not actively hallucinating seems to misinterpret social cues (eye contact). Tends to be more reclusive to room or require more prns with any fluctuation in the ther apeutic milieu. Also in hospital he doesn't have to interact with general public regularly, do his own shopping or meal prep. Team recommendation is that he would continue to decompensate readily outside of the milieu and [facility] hospital placement remains medically necessary. (1) Schizophrenia: Plan 05/28/23: continue current medication and tx plan. Given the patient's length of stay, a general rather than daily summary of interventions from day 1-86 (03/02/23-05/26/23) will follow. Upon admission, the patient's thorazine had to be held and there were attempts to split Haldol dosing given orthostatic hypotension and fall risk with foot fracture. A 304 hearing was held on 03/18/23. Thorazine was reintroduced on 03/17 but did not result in any decrease in Haldol dosing. A diversion meeting was held on 03/28/2023. He was cleared by ortho re: use of boot for foot on 04/01/23. He had declined trials of Clozaril and adjunctive depakote but was amenable to Haldol dec to decrease number of overall pills (04/03 & 16). He was not able to taper Haldol PO without an increase in his psychotic symptoms. He was started on a trial of Trilafon on 05/04/23 with benefit. 2nd dose of Haldol dec (400 mg total) was given on 05/04 & 05/05. Trilafon was increased again to 16 mg TID on 05/23/23. Inventory Assets Strengths: taking PO meds, cooperative with tx plan. Able to collaborate with treatment providers. Able to discuss past medications and his response to same Needs: longer term hospitalization, medical monitoring Suicide Risk Level Suicide Risk Level: Moderate (q15 min suicide checks) Risk Factors Assessment Male: Yes : Yes Do You Have Access To A Gun?: No Mental Health Diagnoses: Yes Previous Attempt: Yes Previous Psychiatric Hospitalization: Yes Protective Factors Assessment Yarsanism Beliefs: No : No Responsible for Young Children: No Employed: No Stable Relationships: No Supportive Family: No Interval History Identifying Information UMBERTO DAMIAN is a 52-year-old man who lives in a [place] [facility] with a history of schizophrenia, who eloped after returning to his penitentiary and was found by police wandering with concern for dehydration due to hot temperatures/humidity. He is on a 304 commitment as of 03/18/2023. Chief Complaint birthday Review of Systems Sleep Information Total Hours of Sleep: 5.5 Meal Information Percent Meal Consumed - Breakfast: 100 Percent Meal Consumed - Lunch: 100 Percent Meal Consumed - Dinner: 100 Nutrition Comment: Ate all of his meal. Subjective Subjective Patient was seen & assessed and interval progress reviewed with treatment team. Patient is scheduled for therapeutic time on grounds today. Physical Exam Psychiatric alert, cooperative, pleasant, reports visual fall intermittent but did not appear to be responding to internal stimuli. Vital Signs (Past 24 Hours) Last Vital Signs Temp 36.5 C 05/28/23 06:43 Pulse 87 05/28/23 06:43 Resp 16 05/28/23 06:43 BP 94/66 L 05/28/23 06:43 Pulse Ox 94 05/16/23 06:55 O2 Del Method Room Air 05/16/23 06:55 Results & Data ([facility]) Current Inpatient Medications Current Inpatient Medications: Current Inpatient Medications Al Hydrox/Mg Hydrox/Simethicone (Aluminum/Magnesium Susp 30 Ml Udc) 30 ml PO Q4H PRN PRN Reason: GI Upset Stop: 06/09/23 05:14 Chlorpromazine HCl (Chlorpromazine Hcl 25 Mg Tab) 50 mg PO Q6 PRN PRN Reason: psychosis Stop: 05/31/23 18:21 Last Admin: 05/21/23 00:23 Dose: 50 mg Chlorpromazine HCl (Chlorpromazine Hcl 100 Mg Tab) 200 mg PO HS JOSEMANUEL Stop: 06/21/23 21:59 Last Admin: 05/27/23 20:46 Dose: 200 mg Docusate Sodium (Docusate Sodium 100 Mg Cap) 200 mg PO HS JOSEMANUEL Stop: 05/31/23 21:59 Last Admin: 05/27/23 20:46 Dose: 200 mg Hydroxyzine HCl (Hydroxyzine Hcl 25 Mg Tab) 25 mg PO Q4H PRN PRN Reason: Anxiety Stop: 06/09/23 05:09 Last Admin: 05/28/23 04:50 Dose: 25 mg Hydroxyzine HCl (Hydroxyzine Hcl 25 Mg Tab) 50 mg PO HSZ PRN PRN Reason: Insomnia Stop: 06/09/23 05:11 Last Admin: 05/26/23 02:42 Dose: 50 mg Magnesium Hydroxide (Magnesium Hydroxide Susp 30 Ml Udc) 30 ml PO DAILY PRN PRN Reason: Constipation Stop: 06/09/23 05:15 Miscellaneous (Pending Order) 1 each N/A Q30D@0900 JOSEMANUEL Stop: 11/29/23 08:59 Perphenazine (Perphenazine 2 Mg Tablet) 16 mg PO TID JOSEMANUEL Stop: 06/21/23 20:59 Last Admin: 05/28/23 14:02 Dose: 16 mg Trazodone HCl (Trazodone Hcl 100 Mg Tab) 100 mg PO HS JOSEMANUEL Stop: 06/21/23 21:59 Last Admin: 05/27/23 20:46 Dose: 100 mg Venlafaxine HCl (Venlafaxine Hcl Xr 150 Mg Capxr) 150 mg PO QAM JOSEMANUEL Stop: 06/09/23 08:59 Last Admin: 05/28/23 08:37 Dose: 150 mg Mental Health & Subst Abuse Tx Psychiatrist Name of Psychiatrist: Dr. Umberto Aviles Psychiatrist's Psychiatric Appointment Comment: Telehealth Therapist Name of Therapist: Chary Velasquez Therapist's Therapy Appointment Comment: [address] [place] [address] [address], [place] [address] Post Discharge Appointments Primary Care Physician Name Of Family Doctor/PCP: You Brooks (1) Schizophrenia Schizophrenia type: unspecified Qualified Code(s): F20.9 - Schizophrenia, unspecified
[2023-05-28] MEDS: traZODone HCL 100 MG TAB PO SCH (20:39)
[2023-05-28] MEDS: DOCUSATE SODIUM 100 MG CAP PO SCH (20:39)
[2023-05-29] MEDS: PERPHENAZINE 2 MG TAB PO SCH ×3 (09:01→20:52)
[2023-05-29] MEDS: VENLAFAXINE HCL XR 150 MG CAPXR PO SCH (09:01)
--- NOTE | 2023-05-29 18:16 | Psychiatric Progress Note ---
Date of Service May 29, 2023 Impression / Recommendations Impression 52 yo man with schizophrenia with multiple recent psychiatric hospitalizations after each has eloped from his [place] [facility]. On 304 commitment and accepted to [facility]. No current bed date. MNPR due to psychosis and limited ability to tolerate peers and hx of aggression with delusions 05/29/2023: Reports very good control of hallucinations on current regimen (actually saying he's not experiencing any at all) but remains guarded about the plan of continuing taper of chlorpromazine until he remains on one phenothiazine (perphenazine) along with depot haloperidol. Reviewed this plan (with which he agrees) and the rationale for it. 05/28/23: He is cooperative but typically becomes a bit suspicious toward the end of the his 15-20 min grounds privileges even with staff support. Even when not actively hallucinating seems to misinterpret social cues (eye contact). Tends to be more reclusive to room or require more prns with any fluctuation in the therapeutic milieu. Also in hospital he doesn't have to interact with general public regularly, do his own shopping or meal prep. Team recommendation is that he would continue to decompensate readily outside of the milieu and [facility] hospital placement remains medically necessary. (1) Schizophrenia: Plan 05/29/2023: * continue perphenazine 16 mg TID * decrease chlorpromazine to 100 mg QHS with goal of continuing taper until it's eliminated * continue venlafaxine XR 150 mg daily * continue haloperidol decanonate total of 400 mg HAYES over two days - received on 05/04/2023 and 05/05/2023 05/28/23: continue current medication and tx plan. Given the patient's length of stay, a general rather than daily summary of interventions from day 1-86 (03/02/23-05/26/23) will follow. Upon admission, the patient's thorazine had to be held and there were attempts to split Haldol dosing given orthostatic hypotension and fall risk with foot fracture. A 304 hearing was held on 03/18/23. Thorazine was reintroduced on 03/17 but did not result in any decrease in Haldol dosing. A diversion meeting was held on 03/28/2023. He was cleared by ortho re: use of boot for foot on 04/01/23. He had declined trials of Clozaril and adjunctive depakote but was amenable to Haldol dec to decrease number of overall pills (04/03 & ). He was not able to taper Haldol PO without an increase in his psychotic symptoms. He was started on a trial of Trilafon on 05/04/23 with benefit. 2nd dose of Haldol dec (400 mg total) was given on 05/04 & 05/05. Trilafon was increased again to 16 mg TID on 05/23/23. Inventory Assets Strengths: taking PO meds, cooperative with tx plan. Able to collaborate with treatment providers. Able to discuss past medications and his response to same Needs: longer term hospitalization, medical monitoring Suicide Risk Level Suicide Risk Level: Moderate (q15 min suicide checks) Suicide Risk Level Comments: The patient remains at moderate risk, primarily because of his persistent intermittent persecutory auditory hallucinations. He again reiterates that he is not experiencing suicidal thoughts, does not have any suicidal intent, and has no plan for suicide. He denies any command AH. He also convincingly assures us that he will notify staff if thoughts of self-harm emerge and has been consistently seeking out staff support when he feels overwhelmed by hallucinations. Risk Factors Assessment Male: Yes : Yes Do You Have Access To A Gun?: No Mental Health Diagnoses: Yes Previous Attempt: Yes Previous Psychiatric Hospitalization: Yes Protective Factors Assessment Latter Day Beliefs: No : No Responsible for Young Children: No Employed: No Stable Relationships: No Supportive Family: No Interval History Identifying Information UMBERTO DAMIAN is a 52-year-old man who lives in a [place] [facility] [place] [facility] with a history of schizophrenia, who eloped after returning to his [place] [facility] and was found by police wandering with concern for dehydration due to hot temperatures/humidity. He is on a 304 commitment as of 03/18/2023. Chief Complaint "I'm not having any hallucinations". Review of Systems Sleep Information Total Hours of Sleep: 6 Meal Information Percent Meal Consumed - Breakfast: 100 Percent Meal Consumed - Lunch: 100 Percent Meal Consumed - Dinner: 100 Nutrition Comment: Ate all of his meal. Subjective Subjective The patient was seen and assessed and interval progress reviewed in a multidis ciplinary team meeting with the treatment team. For details, see the "Impression" section. Overall I spent a total of 28 minutes for this inpatient follow-up including review of chart records, review of test results, direct evaluation of the patient [id number], counseling the patient, reconciling and ordering medication, medication education with the patient, risk assessment, discussion during interdisciplinary treatment rounds, and documentation in the electronic health record. Physical Exam Psychiatric Orientation: alert, oriented to person, oriented to place, oriented to time and cooperative Apperance: appropriately dressed and appropriately groomed Eye Contact: good eye contact Motor Behavior: no abnormal motor movements Speech: normal rate/rhythm/volume of speech Affect: euthymic affect and mood congruent with affect; no depressed affect Mood: + anxious mood; no depressed mood Thought Process: clear/coherent thought process Thought Content: + paranoid (intermittent) and reality based without delusions (for the most part) Suicidal Thoughts: denies suicidal thoughts, denies suicidal plan and denies suicidal intent Homicidal Thoughts: denies homicidal thoughts Hallucinations: + auditory hallucinations (intermittent) and + visual hallucinations (intermittently seeing people in trenchcoats, falling into a garden) Cognition: recent memory grossly intact, remote memory grossly intact, attention grossly intact and language grossly intact Estimated Intelligence: average estimated intelligence and consistent with education level Insight: + limited insight Judgment: + limited judgement Vital Signs (Past 24 Hours) Last Vital Signs Temp 36.6 C 05/29/23 06:53 Pulse 76 05/29/23 06:53 Resp 16 05/29/23 06:53 BP 103/74 05/29/23 06:53 Pulse Ox 95 05/29/23 06:53 O2 Del Method Room Air 05/29/23 06:53 The physical exam completed in the emergency room has been accepted for the purposes of medical clearance to the behavioral health unit. Results & Data ([facility]) Current Inpatient Medications Current Inpatient Medications: Current Inpatient Medications Al Hydrox/Mg Hydrox/Simethicone (Aluminum/Magnesium Susp 30 Ml Udc) 30 ml PO Q4H PRN PRN Reason: GI Upset Stop: 06/09/23 05:14 Chlorpromazine HCl (Chlorpromazine Hcl 25 Mg Tab) 50 mg PO Q6 PRN PRN Reason: psychosis Stop: 05/31/23 18:21 Last Admin: 05/21/23 00:23 Dose: 50 mg Chlorpromazine HCl (Chlorpromazine Hcl 100 Mg Tab) 200 mg PO HS JOSEMANUEL Stop: 06/21/23 21:59 Last Admin: 05/28/23 20:39 Dose: 200 mg Docusate Sodium (Docusate Sodium 100 Mg Cap) 200 mg PO HS JOSEMANUEL Stop: 05/31/23 21:59 Last Admin: 05/28/23 20:39 Dose: 200 mg Hydroxyzine HCl (Hydroxyzine Hcl 25 Mg Tab) 25 mg PO Q4H PRN PRN Reason: Anxiety Stop: 06/09/23 05:09 Last Admin: 05/28/23 04:50 Dose: 25 mg Hydroxyzine HCl (Hydroxyzine Hcl 25 Mg Tab) 50 mg PO HSZ PRN PRN Reason: Insomnia Stop: 06/09/23 05:11 Last Admin: 05/26/23 02:42 Dose: 50 mg Magnesium Hydroxide (Magnesium Hydroxide Susp 30 Ml Udc) 30 ml PO DAILY PRN PRN Reason: Constipation Stop: 06/09/23 05:15 Miscellaneous (Pending Order) 1 each N/A Q30D@0900 [facility] Stop: 11/29/23 08:59 Perphenazine (Perphenazine 2 Mg Tablet) 16 mg PO TID JOSEMANUEL Stop: 06/21/23 20:59 Last Admin: 05/29/23 14:21 Dose: 16 mg Trazodone HCl (Trazodone Hcl 100 Mg Tab) 100 mg PO HS JOSEMANUEL Stop: 06/21/23 21:59 Last Admin: 05/28/23 20:39 Dose: 100 mg Venlafaxine HCl (Venlafaxine Hcl Xr 150 Mg Capxr) 150 mg PO QAM JOSEMANUEL Stop: 06/09/23 08:59 Last Admin: 05/29/23 09:01 Dose: 150 mg Mental Health & Subst Abuse Tx Psychiatrist Name of Psychiatrist: Dr. Umberto Aviles Psychiatrist's Psychiatric Appointment Comment: Telehealth Therapist Name of Therapist: Chary Velasquez Therapist's Therapy Appointment Comment: [address] [place] [address] [address], [place] [address] Post Discharge Appointments Primary Care Physician Name Of Family Doctor/PCP: You Brooks (1) Schizophrenia Schizophrenia type: unspecified Qualified Code(s): F20.9 - Schizophrenia, unspecified
[2023-05-29] MEDS: DOCUSATE SODIUM 100 MG CAP PO SCH (20:51)
[2023-05-29] MEDS: traZODone HCL 100 MG TAB PO SCH (20:51)
[2023-05-30] MEDS: VENLAFAXINE HCL XR 150 MG CAPXR PO SCH (08:51)
[2023-05-30] MEDS: PERPHENAZINE 2 MG TAB PO SCH ×3 (08:51→20:43)
--- NOTE | 2023-05-30 17:00 | Psychiatric Progress Note ---
Date of Service May 30, 2023 Impression / Recommendations Impression 52 yo man with schizophrenia with multiple recent psychiatric hospitalizations after each has eloped from his senior care. On 304 commitment [facility]. No current bed date. [facility] due to psychosis and limited ability to tolerate peers and hx of aggression with delusions 05/30/2023: Continues to report minimal to no hallucinations and has not required PRN antipsychotic medication for several days. He wants to continue to planned taper of chlorpromazine. 05/29/2023: Reports very good control of hallucinations on current regimen (actually saying he's not experiencing any at all) but remains guarded about the plan of continuing taper of chlorpromazine until he remains on one phenothiazine (perphenazine) along with depot haloperidol. Reviewed this plan (with which he agrees) and the rationale for it. 05/28/23: He is cooperative but typically becomes a bit suspicious toward the end of the his 15-20 min grounds privileges even with staff support. Even when not actively hallucinating seems to misinterpret social cues (eye contact). Tends to be more reclusive to room or require more prns with any fluctuation in the therapeutic milieu. Also in hospital he doesn't have to interact with general public regularly, do his own shopping or meal prep. Team recommendation is that he would continue to decompensate readily outside of the milieu and state hospital placement remains medically necessary. (1) Schizophrenia: Plan 05/30/2023: * continue perphenazine 16 mg TID * decrease chlorpromazine to 50 mg QHS with goal of continuing taper until it's eliminated * continue venlafaxine XR 150 mg daily * continue haloperidol decanonate total of 400 mg HAYES over two days - received on 05/04/2023 and 05/05/2023 05/29/2023: * continue perphenazine 16 mg TID * decrease chlorpromazine to 100 mg QHS with goal of continuing taper until it's eliminated * continue venlafaxine XR 150 mg daily * continue haloperidol decanonate total of 400 mg HAYES over two days - received on 05/04/2023 and 05/05/2023 05/28/23: continue current medication and tx plan. Given the patient's length of stay, a general rather than daily summary of interventions from day 1-86 (03/02/23-05/26/23) will follow. Upon admission, the patient's thorazine had to be held and there were attempts to split Haldol dosing given orthostatic hypotension and fall risk with foot fracture. A 304 hearing was held on 03/18/23. Thorazine was reintroduced on 03/17 but did not result in any decrease in Haldol dosing. A diversion meeting was held on 03/28/2023. He was cleared by ortho re: use of boot for foot on 04/01/23. He had declined trials of Clozaril and adjunctive depakote but was amenable to Haldol dec to decrease number of overall pills (04/03 & ). He was not able to taper Haldol PO without an increase in his psychotic symptoms. He was started on a trial of Trilafon on 05/04/23 with benefit. 2nd dose of Haldol dec (400 mg total) was given on 05/04 & 05/05. Trilafon was increased again to 16 mg TID on 05/23/23. Inventory Assets Strengths: taking PO meds, cooperative with tx plan. Able to collaborate with treatment providers. Able to discuss past medications and his response to same Needs: longer term hospitalization, medical monitoring Suicide Risk Level Suicide Risk Level: Moderate (q15 min suicide checks) Suicide Risk Level Comments: The patient remains at moderate risk, primarily because of his persistent intermittent persecutory auditory hallucinations. He again reiterates that he is not experiencing suicidal thoughts, does not have any suicidal intent, and has no plan for suicide. He denies any command AH. He also convincingly assures us that he will notify staff if thoughts of self-harm emerge and has been consistently seeking out staff support when he feels overwhelmed by hallucinations. Risk Factors Assessment Male: Yes : Yes Do You Have Access To A Gun?: No Mental Health Diagnoses: Yes Previous Attempt: Yes Previous Psychiatric Hospitalization: Yes Protective Factors Assessment Yazidi Beliefs: No : No Responsible for Young Children: No Employed: No Stable Relationships: No Supportive Family: No Interval History Identifying Information UMBERTO DAMIAN is a 52-year-old man who lives in a [place] psychiatric senior care with a history of schizophrenia, who eloped after returning to his senior care and was found by police wandering with concern for dehydration due to hot temperatures/humidity. He is on a 304 commitment as of 03/18/2023. Chief Complaint "Pretty good". Review of Systems Sleep Information Total Hours of Sleep: 7 Meal Information Percent Meal Consumed - Breakfast: 100 Percent Meal Consumed - Lunch: 100 Percent Meal Consumed - Dinner: 100 Nutrition Comment: Ate all of his meal. Subjective Subjective The patient was seen and assessed and interval progress reviewed in a multidisciplinary team meeting with the treatment team. For details, see the "Impression" section. Overall I spent a total of 26 minutes for this inpatient follow-up including review of chart records, direct evaluation of the patient [id number], counseling the patient, reconciling and ordering medication, medication education with the patient, risk assessment, discussion during interdisciplinary treatment rounds, and documentation in the electronic health record. Physical Exam Psychiatric Orientation: alert, oriented to person, oriented to place, oriented to time and cooperative Apperance: appropriately dressed and appropriately groomed Eye Contact: good eye contact Motor Behavior: no abnormal motor movements Speech: normal rate/rhythm/volume of speech Affect: euthymic affect and mood congruent with affect Mood: + anxious mood; no depressed mood Thought Process: clear/coherent thought process Thought Content: + paranoid (intermittent) and reality based without delusions (for the most part) Suicidal Thoughts: denies suicidal thoughts, denies suicidal plan and denies suicidal intent Homicidal Thoughts: denies homicidal thoughts Hallucinations: + auditory hallucinations (intermittent) and + visual hallucinations (intermittently seeing people in trenchcoats, falling into a garden) Cognition: recent memory grossly intact, remote memory grossly intact, attention grossly intact and language grossly intact Estimated Intelligence: average estimated intelligence and consistent with education level Insight: + limited insight Judgment: + limited judgement Vital Signs (Past 24 Hours) Last Vital Signs Temp 36.3 C L 05/30/23 06:00 Pulse 100 H 05/30/23 07:00 Resp 16 05/30/23 06:00 BP 99/62 L 05/30/23 07:00 Pulse Ox 95 05/29/23 06:53 O2 Del Method Room Air 05/29/23 06:53 The physical exam completed in the emergency room has been accepted for the purposes of medical clearance to the behavioral health unit. Results & Data (BHU) Current Inpatient Medications Current Inpatient Medications: Current Inpatient Medications Al Hydrox/Mg Hydrox/Simethicone (Aluminum/Magnesium Susp 30 Ml Udc) 30 ml PO Q4H PRN PRN Reason: GI Upset Stop: 06/09/23 05:14 Chlorpromazine HCl (Chlorpromazine Hcl 25 Mg Tab) 50 mg PO Q6 PRN PRN Reason: psychosis Stop: 05/31/23 18:21 Last Admin: 05/21/23 00:23 Dose: 50 mg Chlorpromazine HCl (Chlorpromazine Hcl 100 Mg Tab) 100 mg PO HS JOSEMANUEL Stop: 06/28/23 21:59 Last Admin: 05/29/23 20:52 Dose: 100 mg Docusate Sodium (Docusate Sodium 100 Mg Cap) 200 mg PO HS JOSEMANUEL Stop: 05/31/23 21:59 Last Admin: 05/29/23 20:51 Dose: 200 mg Hydroxyzine HCl (Hydroxyzine Hcl 25 Mg Tab) 25 mg PO Q4H PRN PRN Reason: Anxiety Stop: 06/09/23 05:09 Last Admin: 05/28/23 04:50 Dose: 25 mg Hydroxyzine HCl (Hydroxyzine Hcl 25 Mg Tab) 50 mg PO HSZ PRN PRN Reason: Insomnia Stop: 06/09/23 05:11 Last Admin: 05/26/23 02:42 Dose: 50 mg Magnesium Hydroxide (Magnesium Hydroxide Susp 30 Ml Udc) 30 ml PO DAILY PRN PRN Reason: Constipation Stop: 06/09/23 05:15 Miscellaneous (Pending Order) 1 each N/A Q30D@0900 [facility] Stop: 11/29/23 08:59 Perphenazine (Perphenazine 2 Mg Tablet) 16 mg PO TID JOSEMANUEL Stop: 06/21/23 20:59 Last Admin: 05/30/23 13:04 Dose: 16 mg Trazodone HCl (Trazodone Hcl 100 Mg Tab) 100 mg PO HS JOSEMANUEL Stop: 06/21/23 21:59 Last Admin: 05/29/23 20:51 Dose: 100 mg Venlafaxine HCl (Venlafaxine Hcl Xr 150 Mg Capxr) 150 mg PO QAM JOSEMANUEL Stop: 06/09/23 08:59 Last Admin: 05/30/23 08:51 Dose: 150 mg Mental Health & Subst Abuse Tx Psychiatrist Name of Psychiatrist: Dr. Umberto Aviles Psychiatrist's Psychiatric Appointment Comment: Telehealth Therapist Name of Therapist: Chary Marlow Eva Therapist's Therapy Appointment Comment: [address] [place] [address] [address], [place] [address] Post Discharge Appointments Primary Care Physician Name Of Family Doctor/PCP: You Brooks (1) Schizophrenia Schizophrenia type: unspecified Qualified Code(s): F20.9 - Schizophrenia, unspecified
[2023-05-30] MEDS: traZODone HCL 100 MG TAB PO SCH (20:43)
[2023-05-30] MEDS: DOCUSATE SODIUM 100 MG CAP PO SCH (20:44)
[2023-05-31] MEDS: hydrOXYzine HCl 25 MG TAB PO PRN ×2 (05:01→23:12)
[2023-05-31] MEDS: PERPHENAZINE 2 MG TAB PO SCH ×3 (09:23→20:00)
[2023-05-31] MEDS: VENLAFAXINE HCL XR 150 MG CAPXR PO SCH (09:23)
--- NOTE | 2023-05-31 11:33 | Psychiatric Progress Note ---
Date of Service May 31, 2023 Impression / Recommendations Impression 52 yo man with schizophrenia with multiple recent psychiatric hospitalizations after each has eloped from his usp. On 304 commitment and [facility]. No current bed date. [facility] due to psychosis and limited ability to tolerate peers and hx of aggression with delusions 05/31/2023: Team again reviewed our concerns about the substantial risks to pt if he were discharged to the community. He continues to have on average 2 "bad days" roughly every week during which the command auditory hallucinations direct his actions. Here, he requests to go to open-door seclusion because he's worried he might try to elope and end up seriously injured as has happened many times in the past. He reacts to changes in the milieu, which given the large numbers of admissions and discharges is fairly constant though the structured setting mitigates the effect of those changes (which will not be the case in the community). Pt asks if we can go ahead and stop the quetiapine since he thinks the perphenazine is working well to suppress hallucinations. 05/30/2023: Continues to report minimal to no hallucinations and has not required PRN antipsychotic medication for several days. He wants to continue to planned taper of chlorpromazine. 05/29/2023: Reports very good control of hallucinations on current regimen (actually saying he's not experiencing any at all) but remains guarded about the plan of continuing taper of chlorpromazine until he remains on one phenothiazine (perphenazine) along with depot haloperidol. Reviewed this plan (with which he agrees) and the rationale for it. 05/28/23: He is cooperative but typically becomes a bit suspicious toward the end of the his 15-20 min grounds privileges even with staff support. Even when not actively hallucinating seems to misinterpret social cues (eye contact). Tends to be more reclusive to room or require more prns with any fluctuation in the therapeutic milieu. Also in hospital he doesn't have to interact with general public regularly, do his own shopping or meal prep. Team recommendation is that he would continue to decompensate readily outside of the milieu and state hospital placement remains medically necessary. (1) Schizophrenia: Plan 05/31/2023: * continue perphenazine 16 mg TID * stop chlorpromazine * continue venlafaxine XR 150 mg daily * continue haloperidol decanonate total of 400 mg HAYES over two days - ordered for 06/01/2023 & 06/02/2023, last received on 05/04/2023 & 05/05/2023 05/30/2023: * continue perphenazine 16 mg TID * decrease chlorpromazine to 50 mg QHS with goal of continuing taper until it's eliminated * continue venlafaxine XR 150 mg daily * continue haloperidol decanonate total of 400 mg HAYES over two days - received on 05/04/2023 and 05/05/2023 05/29/2023: * continue perphenazine 16 mg TID * decrease chlorpromazine to 100 mg QHS with goal of continuing taper until it's eliminated * continue venlafaxine XR 150 mg daily * continue haloperidol decanonate total of 400 mg HAYES over two days - received on 05/04/2023 and 05/05/2023 05/28/23: continue current medication and tx plan. Given the patient's length of stay, a general rather than daily summary of interventions from day 1-86 (03/02/23-05/26/23) will follow. Upon admission, the patient's thorazine had to be held and there were attempts to split Haldol dosing given orthostatic hypotension and fall risk with foot fracture. A 304 hearing was held on 03/18/23. Thorazine was reintroduced on 03/17 but did not result in any decrease in Haldol dosing. A diversion meeting was held on 03/28/2023. He was cleared by ortho re: use of boot for foot on 04/01/23. He had declined trials of Clozaril and adjunctive depakote but was amenable to Haldol dec to decrease number of overall pills (04/03 & ). He was not able to taper Haldol PO without an increase in his psychotic symptoms. He was started on a trial of Trilafon on 05/04/23 with benefit. 2nd dose of Haldol dec (400 mg total) was given on 05/04 & 05/05. Trilafon was increased again to 16 mg TID on 05/23/23. Inventory Assets Strengths: taking PO meds, cooperative with tx plan. Able to collaborate with treatment providers. Able to discuss past medications and his response to same Needs: longer term hospitalization, medical monitoring Suicide Risk Level Suicide Risk Level: Moderate (q15 min suicide checks) Suicide Risk Level Comments: The patient remains at moderate risk, primarily because of his persistent intermittent persecutory auditory hallucinations. He again reiterates that he is not experiencing suicidal thoughts, does not have any suicidal intent, and has no plan for suicide. He denies any command AH. He also convincingly assures us that he will notify staff if thoughts of self-harm emerge and has been consistently seeking out staff support when he feels overwhelmed by hallucinations. Risk Factors Assessment Male: Yes : Yes Do You Have Access To A Gun?: No Mental Health Diagnoses: Yes Previous Attempt: Yes Previous Psychiatric Hospitalization: Yes Protective Factors Assessment Latter-Day Beliefs: No : No Responsible for Young Children: No Employed: No Stable Relationships: No Supportive Family: No Interval History Identifying Information UMBERTO DAMIAN is a 52-year-old man who lives in a [place] psychiatric usp with a history of schizophrenia, who eloped after returning to his usp and was found by police wandering with concern for dehydration due to hot temperatures/humidity. He is on a 304 commitment as of 03/18/2023. Chief Complaint "I'm doing great". Review of Systems Sleep Information Total Hours of Sleep: 5.30 Sleep Comments: Pt awake at 0500 and given Vistaril 25mg Meal Information Percent Meal Consumed - Breakfast: 100 Percent Meal Consumed - Lunch: 100 Percent Meal Consumed - Dinner: 0 Nutrition Comment: Ate all of his meal. Subjective Subjective The patient was seen and assessed and interval progress reviewed in a multidisciplinary team meeting with the treatment team. For details, see the "Impression" section. Overall I spent a total of 34 minutes for this inpatient follow-up including review of chart records, direct evaluation of the patient [id number], cou nseling the patient, reconciling and ordering medication, medication education with the patient, risk assessment, discussion during interdisciplinary treatment rounds, and documentation in the electronic health record. Physical Exam Psychiatric Orientation: alert, oriented to person, oriented to place, oriented to time and cooperative Apperance: appropriately dressed and appropriately groomed Eye Contact: good eye contact Motor Behavior: no abnormal motor movements Speech: normal rate/rhythm/volume of speech Affect: euthymic affect and mood congruent with affect Mood: + anxious mood; no depressed mood Thought Process: clear/coherent thought process Thought Content: + paranoid (intermittent) and reality based without delusions (for the most part) Suicidal Thoughts: denies suicidal thoughts, denies suicidal plan and denies suicidal intent Homicidal Thoughts: denies homicidal thoughts Hallucinations: + auditory hallucinations (intermittent) and + visual hallucinations (intermittently seeing people in trenchcoats, falling into a garden) Cognition: recent memory grossly intact, remote memory grossly intact, attention grossly intact and language grossly intact Estimated Intelligence: average estimated intelligence and consistent with education level Insight: + limited insight Judgment: + limited judgement Vital Signs (Past 24 Hours) Last Vital Signs Temp 36.6 C 05/31/23 06:53 Pulse 73 05/31/23 06:53 Resp 16 05/31/23 06:53 BP 92/64 L 05/31/23 06:53 Pulse Ox 95 05/31/23 06:53 O2 Del Method Room Air 05/31/23 06:53 The physical exam completed in the emergency room has been accepted for the purposes of medical clearance to the behavioral health unit. Results & Data (BHU) Current Inpatient Medications Current Inpatient Medications: Current Inpatient Medications Al Hydrox/Mg Hydrox/Simethicone (Aluminum/Magnesium Susp 30 Ml Udc) 30 ml PO Q4H PRN PRN Reason: GI Upset Stop: 06/09/23 05:14 Chlorpromazine HCl (Chlorpromazine Hcl 25 Mg Tab) 50 mg PO Q6 PRN PRN Reason: psychosis Stop: 05/31/23 18:21 Last Admin: 05/21/23 00:23 Dose: 50 mg Chlorpromazine HCl (Chlorpromazine Hcl 25 Mg Tab) 50 mg PO HS JOSEMANUEL Stop: 06/30/23 21:59 Docusate Sodium (Docusate Sodium 100 Mg Cap) 200 mg PO HS JOSEMANUEL Stop: 05/31/23 21:59 Last Admin: 05/30/23 20:44 Dose: 200 mg Hydroxyzine HCl (Hydroxyzine Hcl 25 Mg Tab) 25 mg PO Q4H PRN PRN Reason: Anxiety Stop: 06/09/23 05:09 Last Admin: 05/31/23 05:01 Dose: 25 mg Hydroxyzine HCl (Hydroxyzine Hcl 25 Mg Tab) 50 mg PO HSZ PRN PRN Reason: Insomnia Stop: 06/09/23 05:11 Last Admin: 05/26/23 02:42 Dose: 50 mg Magnesium Hydroxide (Magnesium Hydroxide Susp 30 Ml Udc) 30 ml PO DAILY PRN PRN Reason: Constipation Stop: 06/09/23 05:15 Miscellaneous (Pending Order) 1 each N/A Q30D@0900 JOSEMANUEL Stop: 11/29/23 08:59 Perphenazine (Perphenazine 2 Mg Tablet) 16 mg PO TID JOSEMANUEL Stop: 06/21/23 20:59 Last Admin: 05/31/23 09:23 Dose: 16 mg Trazodone HCl (Trazodone Hcl 100 Mg Tab) 100 mg PO HS JOSEMANUEL Stop: 06/21/23 21:59 Last Admin: 05/30/23 20:43 Dose: 100 mg Venlafaxine HCl (Venlafaxine Hcl Xr 150 Mg Capxr) 150 mg PO QAM JOSEMANUEL Stop: 06/09/23 08:59 Last Admin: 05/31/23 09:23 Dose: 150 mg Mental Health & Subst Abuse Tx Psychiatrist Name of Psychiatrist: Dr. Umberto Aviles Psychiatrist's Psychiatric Appointment Comment: Telehealth Therapist Name of Therapist: Chary Velasquez Therapist's Therapy Appointment Comment: [address] [place] [address] [address], [place] [address] Post Discharge Appointments Primary Care Physician Name Of Family Doctor/PCP: You Brooks (1) Schizophrenia Schizophrenia type: unspecified Qualified Code(s): F20.9 - Schizophrenia, unspecified
[2023-05-31] MEDS: traZODone HCL 100 MG TAB PO SCH (20:29)
[2023-05-31] MEDS ORDERED: chlorproMAZINE HCL 25 MG TAB PO SCH (22:00)
[2023-06-01] MEDS: hydrOXYzine HCl 25 MG TAB PO PRN (05:09)
[2023-06-01] MEDS: PERPHENAZINE 2 MG TAB PO SCH ×3 (08:54→20:14)
[2023-06-01] MEDS: VENLAFAXINE HCL XR 150 MG CAPXR PO SCH (08:57)
[2023-06-01] MEDS ORDERED: HALOPERIDOL DECANOATE INJ 50 MG/ML VIAL IM ONE ×2 (09:00→12:00)
--- NOTE | 2023-06-01 12:13 | Psychiatric Progress Note ---
Date of Service June 01, 2023 Impression / Recommendations Impression 52 yo man with schizophrenia with multiple recent psychiatric hospitalizations after each has eloped from his fdc. On 304 commitment and accepted to [facility]. No current bed date. MNPR due to psychosis and limited ability to tolerate peers and hx of aggression with delusions 06/01/2023: Pt says he's happy with elimination of chlorpromazine and says hallucinations are "under good control". He got first of 2 monthly haloperidol decanoate injections today and expects the second one tomorrow. No new or worse symptoms. No side effects reported. 05/31/2023: Team again reviewed our concerns about the substantial risks to pt if he were discharged to the community. He continues to have on average 2 "bad days" roughly every week during which the command auditory hallucinations direct his actions. Here, he requests to go to open-door seclusion because he's worried he might try to elope and end up seriously injured as has happened many times in the past. He reacts to changes in the milieu, which given the large numbers of admissions and discharges is fairly constant though the structured setting mitigates the effect of those changes (which will not be the case in the community). Pt asks if we can go ahead and stop the quetiapine since he thinks the perphenazine is working well to suppress hallucinations. 05/30/2023: Continues to report minimal to no hallucinations and has not requir ed PRN antipsychotic medication for several days. He wants to continue to planned taper of chlorpromazine. 05/29/2023: Reports very good control of hallucinations on current regimen (actually saying he's not experiencing any at all) but remains guarded about the plan of continuing taper of chlorpromazine until he remains on one phenothiazine (perphenazine) along with depot haloperidol. Reviewed this plan (with which he agrees) and the rationale for it. 05/28/23: He is cooperative but typically becomes a bit suspicious toward the end of the his 15-20 min grounds privileges even with staff support. Even when not actively hallucinating seems to misinterpret social cues (eye contact). Tends to be more reclusive to room or require more prns with any fluctuation in the therapeutic milieu. Also in hospital he doesn't have to interact with general public regularly, do his own shopping or meal prep. Team recommendation is that he would continue to decompensate readily outside of the milieu and state hospital placement remains medically necessary. (1) Schizophrenia: Plan 06/01/2023: * continue perphenazine 16 mg TID * continue venlafaxine XR 150 mg daily * continue haloperidol decanonate total of 400 mg HAYES over two days - ordered for 06/01/2023 & 06/02/2023, last received on 06/01/2023 & 05/05/2023 05/31/2023: * continue perphenazine 16 mg TID * stop chlorpromazine * continue venlafaxine XR 150 mg daily * continue haloperidol decanonate total of 400 mg HAYES over two days - ordered for 06/01/2023 & 06/02/2023, last received on 05/04/2023 & 05/05/2023 05/30/2023: * continue perphenazine 16 mg TID * decrease chlorpromazine to 50 mg QHS with goal of continuing taper until it's eliminated * continue venlafaxine XR 150 mg daily * continue haloperidol decanonate total of 400 mg HAYES over two days - received on 05/04/2023 and 05/05/2023 05/29/2023: * continue perphenazine 16 mg TID * decrease chlorpromazine to 100 mg QHS with goal of continuing taper until it's eliminated * continue venlafaxine XR 150 mg daily * continue haloperidol decanonate total of 400 mg HAYES over two days - received on 05/04/2023 and 05/05/2023 05/28/23: continue current medication and tx plan. Given the patient's length of stay, a general rather than daily summary of interventions from day 1-86 (03/02/23-05/26/23) will follow. Upon admission, the patient's thorazine had to be held and there were attempts to split Haldol dosing given orthostatic hypotension and fall risk with foot fracture. A 304 hearing was held on 03/18/23. Thorazine was reintroduced on 03/17 but did not result in any decrease in Haldol dosing. A diversion meeting was held on 03/28/2023. He was cleared by ortho re: use of boot for foot on 04/01/23. He had declined trials of Clozaril and adjunctive depakote but was amenable to Haldol dec to decrease number of overall pills (04/03 & ). He was not able to taper Haldol PO without an increase in his psychotic symptoms. He was started on a trial of Trilafon on 05/04/23 with benefit. 2nd dose of Haldol dec (400 mg total) was given on 05/04 & 05/05. Trilafon was increased again to 16 mg TID on 05/23/23. Inventory Assets Strengths: taking PO meds, cooperative with tx plan. Able to collaborate with treatment providers. Able to discuss past medications and his response to same Needs: longer term hospitalization, medical monitoring Suicide Risk Level Suicide Risk Level: Moderate (q15 min suicide checks) Suicide Risk Level Comments: The patient remains at moderate risk, primarily because of his persistent intermittent persecutory auditory hallucinations. He again reiterates that he is not experiencing suicidal thoughts, does not have any suicidal intent, and has no plan for suicide. He denies any command AH. He also convincingly assures us that he will notify staff if thoughts of self-harm emerge and has been consistently seeking out staff support when he feels overwhelmed by hallucinations. Risk Factors Assessment Male: Yes : Yes Do You Have Access To A Gun?: No Mental Health Diagnoses: Yes Previous Attempt: Yes Previous Psychiatric Hospitalization: Yes Protective Factors Assessment Hindu Beliefs: No : No Responsible for Young Children: No Employed: No Stable Relationships: No Supportive Family: No Interval History Identifying Information UMBERTO DAMIAN is a 52-year-old man who lives in a [place] [facility] fdc with a history of schizophrenia, who eloped after returning to his fdc and was found by police wandering with concern for dehydration due to hot temperatures/humidity. He is on a 304 commitment as of 03/18/2023. Chief Complaint "I'm happy with the medication". Review of Systems Sleep Information Total Hours of Sleep: 5.75 Sleep Comments: Pt awake at 0500 and given Vistaril 25mg Meal Information Percent Meal Consumed - Breakfast: 100 Percent Meal Consumed - Lunch: 100 Percent Meal Consumed - Dinner: 100 Nutrition Comment: Ate all of his meal. Subjective Subjective The patient was seen and assessed and interval progress reviewed in a multidisciplinary team meeting with the treatment team. For details, see the "Impression" section. Overall I spent a total of 33 minutes for this inpatient follow-up including review of chart records, direct evaluation of the patient [id number], counseling the patient, medication education with the patient, risk assessment, discussion during interdisciplinary treatment rounds, and documentation in the electronic health record. Physical Exam Psychiatric Orientation: alert, oriented to person, oriented to place, oriented to time and cooperative Apperance: appropriately dressed and appropriately groomed Eye Contact: good eye contact Motor Behavior: no abnormal motor movements Speech: normal rate/rhythm/volume of speech Affect: euthymic affect and mood congruent with affect Mood: + anxious mood; no depressed mood Thought Process: clear/coherent thought process Thought Content: + paranoid (intermittent) and reality based without delusions (for the most part) Suicidal Thoughts: denies suicidal thoughts, denies suicidal plan and denies suicidal intent Homicidal Thoughts: denies homicidal thoughts Hallucinations: + auditory hallucinations (intermittent) and + visual ewing llucinations (intermittently seeing people in trenchcoats, falling into a garden) Cognition: recent memory grossly intact, remote memory grossly intact, attention grossly intact and language grossly intact Estimated Intelligence: average estimated intelligence and consistent with education level Insight: + limited insight Judgment: + limited judgement Vital Signs (Past 24 Hours) Last Vital Signs Temp 36.5 C 06/01/23 06:32 Pulse 90 06/01/23 06:33 Resp 16 06/01/23 06:32 BP 127/81 06/01/23 06:33 Pulse Ox 95 05/31/23 06:53 O2 Del Method Room Air 05/31/23 06:53 The physical exam completed in the emergency room has been accepted for the purposes of medical clearance to the behavioral health unit. Results & Data ([facility]) Current Inpatient Medications Current Inpatient Medications: Current Inpatient Medications Al Hydrox/Mg Hydrox/Simethicone (Aluminum/Magnesium Susp 30 Ml Udc) 30 ml PO Q4H PRN PRN Reason: GI Upset Stop: 06/09/23 05:14 Haloperidol Decanoate (Haloperidol Decanoate Inj 50 Mg/Ml Vial) 200 mg IM ONE ONE Stop: 06/02/23 09:01 Hydroxyzine HCl (Hydroxyzine Hcl 25 Mg Tab) 25 mg PO Q4H PRN PRN Reason: Anxiety Stop: 06/09/23 05:09 Last Admin: 06/01/23 05:09 Dose: 25 mg Hydroxyzine HCl (Hydroxyzine Hcl 25 Mg Tab) 50 mg PO HSZ PRN PRN Reason: Insomnia Stop: 06/09/23 05:11 Last Admin: 05/31/23 23:12 Dose: 50 mg Magnesium Hydroxide (Magnesium Hydroxide Susp 30 Ml Udc) 30 ml PO DAILY PRN PRN Reason: Constipation Stop: 06/09/23 05:15 Perphenazine (Perphenazine 2 Mg Tablet) 16 mg PO TID JOSEMANUEL Stop: 06/21/23 20:59 Last Admin: 06/01/23 08:54 Dose: 16 mg Trazodone HCl (Trazodone Hcl 100 Mg Tab) 100 mg PO HS JOSEMANUEL Stop: 06/21/23 21:59 Last Admin: 05/31/23 20:29 Dose: 100 mg Venlafaxine HCl (Venlafaxine Hcl Xr 150 Mg Capxr) 150 mg PO QAM JOSEMANUEL Stop: 06/09/23 08:59 Last Admin: 06/01/23 08:57 Dose: 150 mg Mental Health & Subst Abuse Tx Psychiatrist Name of Psychiatrist: Dr. Umberto Aviles Psychiatrist's Psychiatric Appointment Comment: Telehealth Therapist Name of Therapist: Chary Velasquez Therapist's Therapy Appointment Comment: [address] [place] [address] [id number], [place] [address] Post Discharge Appointments Primary Care Physician Name Of Family Doctor/PCP: You Brooks (1) Schizophrenia Schizophrenia type: unspecified Qualified Code(s): F20.9 - Schizophrenia, unspecified
[2023-06-01] MEDS: traZODone HCL 100 MG TAB PO SCH (20:14)
[2023-06-02] MEDS: hydrOXYzine HCl 25 MG TAB PO PRN ×2 (02:29→23:37)
[2023-06-02] MEDS: VENLAFAXINE HCL XR 150 MG CAPXR PO SCH (08:43)
[2023-06-02] MEDS: PERPHENAZINE 2 MG TAB PO SCH ×3 (08:43→21:20)
[2023-06-02] MEDS ORDERED: HALOPERIDOL DECANOATE INJ 50 MG/ML VIAL IM ONE ×2 (09:00→11:35)
--- NOTE | 2023-06-02 14:07 | Psychiatric Progress Note ---
Date of Service June 02, 2023 Impression / Recommendations Impression 52 yo man with schizophrenia with multiple recent psychiatric hospitalizations after each has eloped from his residential. On 304 commitment and accepted to [facility]. No current bed date. MNPR due to psychosis and limited ability to tolerate peers and hx of aggression with delusions 06/02/2023: We have been notified that pt's previous residential has discharged him and that he can no longer return there, so he no longer has any community placement available. This had already been understood to be the case but a bed had been being held in the unlikely event he were able to return safely. Pt says he's continuing to do well with minimal hallucinosis and no need for PRN antipsychotic. 06/01/2023: Pt says he's happy with elimination of chlorpromazine and says hallucinations are "under good control". He got first of 2 monthly haloperidol decanoate injections today and expects the second one tomorrow. No new or worse symptoms. No side effects reported. 05/31/2023: Team again reviewed our concerns about the substantial risks to pt if he were discharged to the community. He continues to have on average 2 "bad days" roughly every week during which the command auditory hallucinations direct his actions. Here, he requests to go to open-door seclusion because he's worried he might try to elope and end up seriously injured as has happened many times in the past. He reacts to changes in the milieu, which given the large numbers of admissions and discharges is fairly constant though the structured setting mitigates the effect of those changes (which will not be the case in the community). Pt asks if we can go ahead and stop the quetiapine since he thinks the perphenazine is working well to suppress hallucinations. 05/30/2023: Continues to report minimal to no hallucinations and has not required PRN antipsychotic medication for several days. He wants to continue to planned taper of chlorpromazine. 05/29/2023: Reports very good control of hallucinations on current regimen (actually saying he's not experiencing any at all) but remains guarded about the plan of continuing taper of chlorpromazine until he remains on one phenothiazine (perphenazine) along with depot haloperidol. Reviewed this plan (with which he agrees) and the rationale for it. 05/28/23: He is cooperative but typically becomes a bit suspicious toward the end of the his 15-20 min grounds privileges even with staff support. Even when not actively hallucinating seems to misinterpret social cues (eye contact). Tends to be more reclusive to room or require more prns with any fluctuation in the therapeutic milieu. Also in hospital he doesn't have to interact with general public regularly, do his own shopping or meal prep. Team recommendation is that he would continue to decompensate readily outside of the milieu and state hospital placement remains medically necessary. (1) Schizophrenia: Plan 06/02/2023: * continue perphenazine 16 mg TID * continue venlafaxine XR 150 mg daily * continue haloperidol decanoate total of 400 mg HAYES over two days - last received on 06/01/2023 & 06/02/2023 06/01/2023: * continue perphenazine 16 mg TID * continue venlafaxine XR 150 mg daily * continue haloperidol decanoate total of 400 mg HAYES over two days - ordered for 06/01/2023 & 06/02/2023, last received on 06/01/2023 & 05/05/2023 05/31/2023: * continue perphenazine 16 mg TID * stop chlorpromazine * continue venlafaxine XR 150 mg daily * continue haloperidol decanoate total of 400 mg HAYES over two days - ordered for 06/01/2023 & 06/02/2023, last received on 05/04/2023 & 05/05/2023 05/30/2023: * continue perphenazine 16 mg TID * decrease chlorpromazine to 50 mg QHS with goal of continuing taper until it's eliminated * continue venlafaxine XR 150 mg daily * continue haloperidol decanoate total of 400 mg HAYES over two days - received on 05/04/2023 and 05/05/2023 05/29/2023: * continue perphenazine 16 mg TID * decrease chlorpromazine to 100 mg QHS with goal of continuing taper until it's eliminated * continue venlafaxine XR 150 mg daily * continue haloperidol decanoate total of 400 mg HAYES over two days - received on 05/04/2023 and 05/05/2023 12/8/23: continue current medication and tx plan. Given the patient's length of stay, a general rather than daily summary of interventions from day 1-86 (03/02/23-05/26/23) will follow. Upon admission, the patient's thorazine had to be held and there were attempts to split Haldol dosing given orthostatic hypotension and fall risk with foot fracture. A 304 hearing was held on 03/18/23. Thorazine was reintroduced on 03/17 but did not result in any decrease in Haldol dosing. A diversion meeting was held on 03/28/2023. He was cleared by ortho re: use of boot for foot on 04/01/23. He had declined trials of Clozaril and adjunctive depakote but was amenable to Haldol dec to decrease number of overall pills (04/03 & ). He was not able to taper Haldol PO without an increase in his psychotic symptoms. He was started on a trial of Trilafon on 05/04/23 with benefit. 2nd dose of Haldol dec (400 mg total) was given on 05/04 & 05/05. Trilafon was increased again to 16 mg TID on 05/23/23. Inventory Assets Strengths: taking PO meds, cooperative with tx plan. Able to collaborate with treatment providers. Able to discuss past medications and his response to same Needs: longer term hospitalization, medical monitoring Suicide Risk Level Suicide Risk Level: Moderate (q15 min suicide checks) Suicide Risk Level Comments: The patient remains at moderate risk, primarily because of his persistent int ermittent persecutory auditory hallucinations. He again reiterates that he is not experiencing suicidal thoughts, does not have any suicidal intent, and has no plan for suicide. He denies any command AH. He also convincingly assures us that he will notify staff if thoughts of self-harm emerge and has been consistently seeking out staff support when he feels overwhelmed by hallucinations. Risk Factors Assessment Male: Yes : Yes Do You Have Access To A Gun?: No Mental Health Diagnoses: Yes Previous Attempt: Yes Previous Psychiatric Hospitalization: Yes Protective Factors Assessment Quaker Beliefs: No : No Responsible for Young Children: No Employed: No Stable Relationships: No Supportive Family: No Interval History Identifying Information UMBERTO DAMIAN is a 52-year-old man who lives in a [place] psychiatric residential with a history of schizophrenia, who eloped after returning to his residential and was found by police wandering with concern for dehydration due to hot temperatures/humidity. He is on a 304 commitment as of 03/18/2023. Chief Complaint "Still good". Review of Systems Sleep Information Total Hours of Sleep: 6 Sleep Comments: Pt requested PRN Vistaril at 0230 and slept Meal Information Percent Meal Consumed - Breakfast: 100 Percent Meal Consumed - Lunch: 100 Percent Meal Consumed - Dinner: 100 Nutrition Comment: Ate all of his meal. Subjective Subjective The patient was seen and assessed and interval progress reviewed in a multidisciplinary team meeting with the treatment team. For details, see the "Impression" section. Overall I spent a total of 27 minutes for this inpatient follow-up including review of chart records, direct evaluation of the patient [id number], counseling the patient, medication education with the patient, risk assessment, discussion during interdisciplinary treatment rounds, and documentation in the electronic health record. Physical Exam Psychiatric Orientation: alert, oriented to person, oriented to place, oriented to time and cooperative Apperance: appropriately dressed and appropriately groomed Eye Contact: good eye contact Motor Behavior: no abnormal motor movements Speech: normal rate/rhythm/volume of speech Affect: euthymic affect and mood congruent with affect Mood: + anxious mood; no depressed mood Thought Process: clear/coherent thought process Thought Content: + paranoid (intermittent) and reality based without delusions (for the most part) Suicidal Thoughts: denies suicidal thoughts, denies suicidal plan and denies suicidal intent Homicidal Thoughts: denies homicidal thoughts Hallucinations: + auditory hallucinations (intermittent) and + visual hallucinations (intermittently seeing people in trenchcoats, falling into a garden) Cognition: recent memory grossly intact, remote memory grossly intact, attention grossly intact and language grossly intact Estimated Intelligence: average estimated intelligence and consistent with education level Insight: + limited insight Judgment: + limited judgement Vital Signs (Past 24 Hours) Last Vital Signs Temp 36.6 C 06/02/23 06:36 Pulse 80 06/02/23 06:37 Resp 16 06/02/23 06:36 BP 123/82 06/02/23 06:37 Pulse Ox 95 05/31/23 06:53 O2 Del Method Room Air 05/31/23 06:53 Results & Data ([facility]) Current Inpatient Medications Current Inpatient Medications: Current Inpatient Medications Al Hydrox/Mg Hydrox/Simethicone (Aluminum/Magnesium Susp 30 Ml Udc) 30 ml PO Q4H PRN PRN Reason: GI Upset Stop: 06/09/23 05:14 Hydroxyzine HCl (Hydroxyzine Hcl 25 Mg Tab) 25 mg PO Q4H PRN PRN Reason: Anxiety Stop: 06/09/23 05:09 Last Admin: 06/01/23 05:09 Dose: 25 mg Hydroxyzine HCl (Hydroxyzine Hcl 25 Mg Tab) 50 mg PO HSZ PRN PRN Reason: Insomnia Stop: 06/09/23 05:11 Last Admin: 06/02/23 02:29 Dose: 50 mg Magnesium Hydroxide (Magnesium Hydroxide Susp 30 Ml Udc) 30 ml PO DAILY PRN PRN Reason: Constipation Stop: 06/09/23 05:15 Perphenazine (Perphenazine 2 Mg Tablet) 16 mg PO TID JOSEMANUEL Stop: 06/21/23 20:59 Last Admin: 06/02/23 13:05 Dose: 16 mg Trazodone HCl (Trazodone Hcl 100 Mg Tab) 100 mg PO HS JOSEMANUEL Stop: 06/21/23 21:59 Last Admin: 06/01/23 20:14 Dose: 100 mg Venlafaxine HCl (Venlafaxine Hcl Xr 150 Mg Capxr) 150 mg PO QAM JOSEMANUEL Stop: 06/09/23 08:59 Last Admin: 06/02/23 08:43 Dose: 150 mg Mental Health & Subst Abuse Tx Psychiatrist Name of Psychiatrist: Dr. Umberto Aviles Psychiatrist's Psychiatric Appointment Comment: Telehealth Therapist Name of Therapist: Chary Velasquez Therapist's Therapy Appointment Comment: [phone] [facility] [address] [id number], [place] [address] Post Discharge Appointments Primary Care Physician Name Of Family Doctor/PCP: You Brooks (1) Schizophrenia Schizophrenia type: unspecified Qualified Code(s): F20.9 - Schizophrenia, unspecified
[2023-06-02] MEDS: traZODone HCL 100 MG TAB PO SCH (21:19)
[2023-06-03] MEDS: hydrOXYzine HCl 25 MG TAB PO PRN (04:00)
[2023-06-03] MEDS: VENLAFAXINE HCL XR 150 MG CAPXR PO SCH (08:39)
[2023-06-03] MEDS: PERPHENAZINE 2 MG TAB PO SCH ×3 (08:39→21:01)
--- NOTE | 2023-06-03 10:50 | Psychiatric Progress Note ---
Date of Service June 03, 2023 Impression / Recommendations Impression 52 yo man with schizophrenia with multiple recent psychiatric hospitalizations after each has eloped from his custodial. On 304 commitment and accepted to [facility]. No current bed date. MNPR due to psychosis and limited ability to tolerate peers and hx of aggression with delusions 06/03/2023: Is, by most objective measures, doing very well. He's tolerating the current medication regimen with no side effects and has not been requiring PRN antipsychotic. Unsurprisingly, wishes to talk about returning to the custodial where, he reminds me, "all my stuff is still". He notes that he's been able to avoid acting on command hallucinations while here. I reminded him that he'd been at [facility] for about the same duration when he was discharged from there and relapsed very rapidly, and that I'm sure the team there thought he was doing well enough for discharge. He says that he was on different medication then which is certainly true. However, I still believe that the team there was likely pretty confident that discharge was appropriate based on how well he was doing as an inpatient. The multiple failed attempts at community re-entry present compelling evidence that his doing well in the inpatient setting has poor predictive value in terms of how he does in the outpatient setting. 06/02/2023: We have been notified that pt's previous custodial has discharged him and that he can no longer return there, so he no longer has any community placement available. This had already been understood to be the case but a bed had been being held in the unlikely event he were able to return safely. Pt says he's continuing to do well with minimal hallucinosis and no need for PRN antipsychotic. 06/01/2023: Pt says he's happy with elimination of chlorpromazine and says hallucinations are "under good control". He got first of 2 monthly haloperidol decanoate injections today and expects the second one tomorrow. No new or worse symptoms. No side effects reported. 05/31/2023: Team again reviewed our concerns about the substantial risks to pt if he were discharged to the community. He continues to have on average 2 "bad days" roughly every week during which the command auditory hallucinations direct his actions. Here, he requests to go to open-door seclusion because he's worried he might try to elope and end up seriously injured as has happened many times in the past. He reacts to changes in the milieu, which given the large numbers of admissions and discharges is fairly constant though the structured setting mitigates the effect of those changes (which will not be the case in the community). Pt asks if we can go ahead and stop the quetiapine since he thinks the perphenazine is working well to suppress hallucinations. 05/30/2023: Continues to report minimal to no hallucinations and has not required PRN antipsychotic medication for several days. He wants to continue to planned taper of chlorpromazine. 05/29/2023: Reports very good control of hallucinations on current regimen (actually saying he's not experiencing any at all) but remains guarded about the plan of continuing taper of chlorpromazine until he remains on one phenothiazine (perphenazine) along with depot haloperidol. Reviewed this plan (with which he agrees) and the rationale for it. 05/28/23: He is cooperative but typically becomes a bit suspicious toward the end of the his 15-20 min grounds privileges even with staff support. Even when not actively hallucinating seems to misinterpret social cues (eye contact). Tends to be more reclusive to room or require more prns with any fluctuation in the therapeutic milieu. Also in hospital he doesn't have to interact with general public regularly, do his own shopping or meal prep. Team recommendation is that he would continue to decompensate readily outside of the milieu and state hospital placement remains medically necessary. (1) Schizophrenia: Plan 06/03/2023: Continue medication regimen as on 06/02/2023. Pt has been tapered fully from chlorpromazine, remains on perphenazine, and had haloperidol decanoate on 06/01/2023 and 06/02/2023 06/02/2023: * continue perphenazine 16 mg TID * continue venlafaxine XR 150 mg daily * continue haloperidol decanoate total of 400 mg HAYES over two days - last received on 06/01/2023 & 06/02/2023 06/01/2023: * continue perphenazine 16 mg TID * continue venlafaxine XR 150 mg daily * continue haloperidol decanoate total of 400 mg HAYES over two days - ordered for 06/01/2023 & 06/02/2023, last received on 06/01/2023 & 05/05/2023 05/31/2023: * continue perphenazine 16 mg TID * stop chlorpromazine * continue venlafaxine XR 150 mg daily * continue haloperidol decanoate total of 400 mg HAYES over two days - ordered for 06/01/2023 & 06/02/2023, last received on 05/04/2023 & 05/05/2023 05/30/2023: * continue perphenazine 16 mg TID * decrease chlorpromazine to 50 mg QHS with goal of continuing taper until it's eliminated * continue venlafaxine XR 150 mg daily * continue haloperidol decanoate total of 400 mg HAYES over two days - received on 05/04/2023 and 05/05/2023 05/29/2023: * continue perphenazine 16 mg TID * decrease chlorpromazine to 100 mg QHS with goal of continuing taper until it's eliminated * continue venlafaxine XR 150 mg daily * continue haloperidol decanoate total of 400 mg HAYES over two days - received on 05/04/2023 and 05/05/2023 05/28/23: continue current medication and tx plan. Given the patient's length of stay, a general rather than daily summary of interventions from day 1-86 (03/02/23-05/26/23) will follow. Upon admission, the patient's thorazine had to be held and there were attempts to split Haldol dosing given orthostatic hypotension and fall risk with foot fracture. A 304 hearing was held on 03/18/23. Thorazine was reintroduced on 03/17 but did not result in any decrease in Haldol dosing. A diversion meeting was held on 03/28/2023. He was cleared by ortho re: use of boot for foot on 04/01/23. He had declined trials of Clozaril and adjunctive depakote but was amenable to Haldol dec to decrease number of overall pills (04/03 & ). He was not able to taper Haldol PO without an increase in his psychotic symptoms. He was started on a trial of Trilafon on 05/04/23 with benefit. 2nd dose of Haldol dec (400 mg total) was given on 05/04 & 05/05. Trilafon was increased again to 16 mg TID on 05/23/23. Inventory Assets Strengths: taking PO meds, cooperative with tx plan. Able to collaborate with treatment providers. Able to discuss past medications and his response to same Needs: longer term hospitalization, medical monitoring Suicide Risk Level Suicide Risk Level: Moderate (q15 min suicide checks) Suicide Risk Level Comments: The patient remains at moderate risk, primarily because of his persistent intermittent persecutory auditory hallucinations. He again reiterates that he is not experiencing suicidal thoughts, does not have any suicidal intent, and has no plan for suicide. He denies any command AH. He also convincingly assures us that he will notify staff if thoughts of self-harm emerge and has been consistently seeking out staff support when he feels overwhelmed by hallucinations. Risk Factors Assessment Male: Yes : Yes Do You Have Access To A Gun?: No Mental Health Diagnoses: Yes Previous Attempt: Yes Previous Psychiatric Hospitalization: Yes Protective Factors Assessment Anabaptism Beliefs: No : No Responsible for Young Children: No Employed: No Stable Relationships: No Supportive Family: No Interval History Identifying Information UMBERTO DAMIAN is a 52-year-old man who lives in a [place] psychiatric custodial with a history of schizophrenia, who eloped after returning to his custodial and was found by police wandering with concern for dehydration due to hot temperatures/humidity. He is on a 304 commitment as of 03/18/2023. Chief Complaint "Doing great!". Review of Systems Sleep Information Total Hours of Sleep: 6.75 Sleep Comments: PRN 50mg Vistaril 2337. PRN 25mg Vistaril 0400 Meal Information Percent Meal Consumed - Breakfast: 100 Percent Meal Consumed - Lunch: 100 Percent Meal Consumed - Dinner: 100 Nutrition Comment: Ate all of his meal. Subjective Subjective The patient was seen and assessed and interval progress reviewed in a multidisciplinary team meeting with the treatment team. For details, see the "Impression" section. Overall I spent a total of 39 minutes for this inpatient follow-up including review of chart records, direct evaluation of the patient [id number], counseling the patient, medication education with the patient, risk assessment, discussion during interdisciplinary treatment rounds, and documentation in the electronic health record. Physical Exam Psychiatric Orientation: alert, oriented to person, oriented to place, oriented to time and cooperative Apperance: appropriately dressed and appropriately groomed Eye Contact: good eye contact Motor Behavior: no abnormal motor movements Speech: normal rate/rhythm/volume of speech Affect: euthymic affect and mood congruent with affect Mood: + anxious mood; no depressed mood Thought Process: clear/coherent thought process Thought Content: + paranoid (intermittent) and reality based without delusions (for the most part) Suicidal Thoughts: denies suicidal thoughts, denies suicidal plan and denies suicidal intent Homicidal Thoughts: denies homicidal thoughts Hallucinations: + auditory hallucinations (intermittent) and + visual hallucinations (intermittently seeing people in trenchcoats, falling into a garden) Cognition: recent memory grossly intact, remote memory grossly intact, attention grossly intact and language grossly intact Estimated Intelligence: average estimated intelligence and consistent with education level Insight: + limited insight Judgment: + limited judgement Vital Signs (Past 24 Hours) Last Vital Signs Temp 36.9 C 06/03/23 07:04 Pulse 103 H 06/03/23 07:06 Resp 16 06/03/23 07:04 BP 112/73 06/03/23 07:06 Pulse Ox 99 06/03/23 07:04 O2 Del Method Room Air 06/03/23 07:04 The physical exam completed in the emergency room has been accepted for the purposes of medical clearance to the behavioral health unit. Results & Data (BHU) Current Inpatient Medications Current Inpatient Medications: Current Inpatient Medications Al Hydrox/Mg Hydrox/Simethicone (Aluminum/Magnesium Susp 30 Ml Udc) 30 ml PO Q4H PRN PRN Reason: GI Upset Stop: 06/09/23 05:14 Hydroxyzine HCl (Hydroxyzine Hcl 25 Mg Tab) 25 mg PO Q4H PRN PRN Reason: Anxiety Stop: 06/09/23 05:09 Last Admin: 06/03/23 04:00 Dose: 25 mg Hydroxyzine HCl (Hydroxyzine Hcl 25 Mg Tab) 50 mg PO HSZ PRN PRN Reason: Insomnia Stop: 06/09/23 05:11 Last Admin: 06/02/23 23:37 Dose: 50 mg Magnesium Hydroxide (Magnesium Hydroxide Susp 30 Ml Udc) 30 ml PO DAILY PRN PRN Reason: Constipation Stop: 06/09/23 05:15 Perphenazine (Perphenazine 2 Mg Tablet) 16 mg PO TID JOSEMANUEL Stop: 06/21/23 20:59 Last Admin: 06/03/23 08:39 Dose: 16 mg Trazodone HCl (Trazodone Hcl 100 Mg Tab) 100 mg PO HS JOSEMANUEL Stop: 06/21/23 21:59 Last Admin: 06/02/23 21:19 Dose: 100 mg Venlafaxine HCl (Venlafaxine Hcl Xr 150 Mg Capxr) 150 mg PO QAM JOSEMANUEL Stop: 06/09/23 08:59 Last Admin: 06/03/23 08:39 Dose: 150 mg Mental Health & Subst Abuse Tx Psychiatrist Name of Psychiatrist: Dr. Umberto Aviles Psychiatrist's Psychiatric Appointment Comment: Telehealth Therapist Name of Therapist: Chary Velasquez Therapist's Therapy Appointment Comment: [address] [place] [address] [address], [place] [address] Post Discharge Appointments Primary Care Physician Name Of Family Doctor/PCP: You Brooks (1) Schizophrenia Schizophrenia type: unspecified Qualified Code(s): F20.9 - Schizophrenia, unspecified
[2023-06-03] MEDS: traZODone HCL 100 MG TAB PO SCH (21:04)
[2023-06-04] MEDS: hydrOXYzine HCl 25 MG TAB PO PRN (02:57)
[2023-06-04] MEDS: VENLAFAXINE HCL XR 150 MG CAPXR PO SCH (08:41)
[2023-06-04] MEDS: PERPHENAZINE 2 MG TAB PO SCH ×3 (08:42→20:59)
--- NOTE | 2023-06-04 12:57 | Psychiatric Progress Note ---
Date of Service June 04, 2023 Impression / Recommendations Impression 52 yo man with schizophrenia with multiple recent psychiatric hospitalizations after each has eloped from his prison. On [facility] commitment [facility]. No current bed date. MNPR due to psychosis and limited ability to tolerate peers and hx of aggression with delusions 06/04/2023: Is starting to voice more irritation at still being hospitalized, which doesn't really seem inappropriate and which he conveys in calm and cooperative ways. No new or worse symptoms. No evidence of significant side effects. 06/03/2023: Is, by most objective measures, doing very well. He's tolerating the current medication regimen with no side effects and has not been requiring PRN antipsychotic. Unsurprisingly, wishes to talk about returning to the prison where, he reminds me, "all my stuff is still". He notes that he's been able to avoid acting on command hallucinations while here. I reminded him that he'd been at [facility] for about the same duration when he was discharged from there and relapsed very rapidly, and that I'm sure the team there thought he was doing well enough for discharge. He says that he was on different medication then which is certainly true. However, I still believe that the team there was likely pretty confident that discharge was appropriate based on how well he was doing as an inpatient. The multiple failed attempts at community re-entry present compelling evidence that his doing well in the inpatient setting has poor predictive value in terms of how he does in the outpatient setting. 06/02/2023: We have been notified that pt's previous prison has discharged him and that he can no longer return there, so he no longer has any community placement available. This had already been understood to be the case but a bed had been being held in the unlikely event he were able to return safely. Pt says he's continuing to do well with minimal hallucinosis and no need for PRN antipsychotic. 06/01/2023: Pt says he's happy with elimination of chlorpromazine and says hallucinations are "under good control". He got first of 2 monthly haloperidol decanoate injections today and expects the second one tomorrow. No new or worse symptoms. No side effects reported. 05/31/2023: Team again reviewed our concerns about the substantial risks to pt if he were discharged to the community. He continues to have on average 2 "bad days" roughly every week during which the command auditory hallucinations direct his actions. Here, he requests to go to open-door seclusion because he's worried he might try to elope and end up seriously injured as has happened many times in the past. He reacts to changes in the milieu, which given the large numbers of admissions and discharges is fairly constant though the structured setting mitigates the effect of those changes (which will not be the case in the community). Pt asks if we can go ahead and stop the quetiapine since he thinks the perphenazine is working well to suppress hallucinations. 05/30/2023: Continues to report minimal to no hallucinations and has not required PRN antipsychotic medication for several days. He wants to continue to planned taper of chlorpromazine. 05/29/2023: Reports very good control of hallucinations on current regimen (actually saying he's not experiencing any at all) but remains guarded about the plan of continuing taper of chlorpromazine until he remains on one phenothiazine (perphenazine) along with depot haloperidol. Reviewed this plan (with which he agrees) and the rationale for it. 05/28/23: He is cooperative but typically becomes a bit suspicious toward the end of the his 15-20 min grounds privileges even with staff support. Even when not actively hallucinating seems to misinterpret social cues (eye contact). Tends to be more reclusive to room or require more prns with any fluctuation in the therapeutic milieu. Also in hospital he doesn't have to interact with general public regularly, do his own shopping or meal prep. Team recommendation is that he would continue to decompensate readily outside of the milieu and state hospital placement remains medically necessary. (1) Schizophrenia: Plan 06/04/2023: Continue medication regimen as on 06/02/2023 06/03/2023: Continue medication regimen as on 06/02/2023. Pt has been tapered fully from chlorpromazine, remains on perphenazine, and had haloperidol decanoate on 06/01/2023 and 06/02/2023 06/02/2023: * continue perphenazine 16 mg TID * continue venlafaxine XR 150 mg daily * continue haloperidol decanoate total of 400 mg HAYES over two days - last received on 06/01/2023 & 06/02/2023 06/01/2023: * continue perphenazine 16 mg TID * continue venlafaxine XR 150 mg daily * continue haloperidol decanoate total of 400 mg HAYES over two days - ordered for 06/01/2023 & 06/02/2023, last received on 06/01/2023 & 05/05/2023 05/31/2023: * continue perphenazine 16 mg TID * stop chlorpromazine * continue venlafaxine XR 150 mg daily * continue haloperidol decanoate total of 400 mg HAYES over two days - ordered for 06/01/2023 & 06/02/2023, last received on 05/04/2023 & 05/05/2023 05/30/2023: * continue perphenazine 16 mg TID * decrease chlorpromazine to 50 mg QHS with goal of continuing taper until it's eliminated * continue venlafaxine XR 150 mg daily * continue haloperidol decanoate total of 400 mg HAYES over two days - received on 05/04/2023 and 05/05/2023 05/29/2023: * continue perphenazine 16 mg TID * decrease chlorpromazine to 100 mg QHS with goal of continuing taper until it's eliminated * continue venlafaxine XR 150 mg daily * continue haloperidol decanoate total of 400 mg HAYES over two days - received on 05/04/2023 and 05/05/2023 05/28/23: continue current medication and tx plan. Given the patient's length of stay, a general rather than daily summary of interventions from day 1-86 (03/02/23-05/26/23) will follow. Upon admission, the patient's thorazine had to be held and there were attempts to split Haldol dosing given orthostatic hypotension and fall risk with foot fracture. A 304 hearing was held on 03/18/23. Thorazine was reintroduced on 03/17 but did not result in any decrease in Haldol dosing. A diversion meeting was held on 03/28/2023. He was cleared by ortho re: use of boot for foot on 04/01/23. He had declined trials of Clozaril and adjunctive depakote but was amenable to Haldol dec to decrease number of overall pills (04/03 & 16). He was not able to taper Haldol PO without an increase in his psychotic symptoms. He was started on a trial of Trilafon on 05/04/23 with benefit. 2nd dose of Haldol dec (400 mg total) was given on 05/04 & 05/05. Trilafon was increased again to 16 mg TID on 05/23/23. Inventory Assets Strengths: taking PO meds, cooperative with tx plan. Able to collaborate with treatment providers. Able to discuss past medications and his response to same Needs: longer term hospitalization, medical monitoring Suicide Risk Level Suicide Risk Level: Moderate (q15 min suicide checks) Suicide Risk Level Comments: The patient remains at moderate risk, primarily because of his persistent intermittent persecutory auditory hallucinations. He again reiterates that he i s not experiencing suicidal thoughts, does not have any suicidal intent, and has no plan for suicide. He denies any command AH. He also convincingly assures us that he will notify staff if thoughts of self-harm emerge and has been consistently seeking out staff support when he feels overwhelmed by hallucinations. Risk Factors Assessment Male: Yes : Yes Do You Have Access To A Gun?: No Mental Health Diagnoses: Yes Previous Attempt: Yes Previous Psychiatric Hospitalization: Yes Protective Factors Assessment Spiritism Beliefs: No : No Responsible for Young Children: No Employed: No Stable Relationships: No Supportive Family: No Interval History Identifying Information UMBERTO DAMIAN is a 52-year-old man who lives in a [place] psychiatric prison with a history of schizophrenia, who eloped after returning to his prison and was found by police wandering with concern for dehydration due to hot temperatures/humidity. He is on a 304 commitment as of 03/18/2023. Chief Complaint "I'm doing fine". Review of Systems Sleep Information Total Hours of Sleep: 6.5 Sleep Comments: PRN 50mg Vistaril Meal Information Percent Meal Consumed - Breakfast: 100 Percent Meal Consumed - Lunch: 100 Percent Meal Consumed - Dinner: 100 Nutrition Comment: Ate all of his meal. Subjective Subjective The patient was seen and assessed and interval progress reviewed in a multidisciplinary team meeting with the treatment team. For details, see the "Impression" section. Overall I spent a total of 25 minutes for this inpatient follow-up including review of chart records, direct evaluation of the patient [id number], coun seling the patient, medication education with the patient, risk assessment, discussion during interdisciplinary treatment rounds, and documentation in the electronic health record. Physical Exam Psychiatric Orientation: alert, oriented to person, oriented to place, oriented to time and cooperative Apperance: appropriately dressed and appropriately groomed Eye Contact: good eye contact Motor Behavior: no abnormal motor movements Speech: normal rate/rhythm/volume of speech Affect: euthymic affect and mood congruent with affect Mood: + anxious mood; no depressed mood Thought Process: clear/coherent thought process Thought Content: + paranoid (intermittent), reality based without delusions (for the most part) and + persecution Suicidal Thoughts: denies suicidal thoughts, denies suicidal plan and denies suicidal intent Homicidal Thoughts: denies homicidal thoughts Hallucinations: + auditory hallucinations (intermittent) and + visual hallucinations (intermittently seeing people in trenchcoats, falling into a garden) Cognition: recent memory grossly intact, remote memory grossly intact, attention grossly intact and language grossly intact Estimated Intelligence: average estimated intelligence and consistent with education level Insight: + limited insight Judgment: + limited judgement Vital Signs (Past 24 Hours) Last Vital Signs Temp 36.8 C 06/04/23 06:00 Pulse 95 H 06/04/23 06:30 Resp 16 06/04/23 06:00 BP 114/74 06/04/23 06:30 Pulse Ox 99 06/03/23 07:04 O2 Del Method Room Air 06/03/23 07:04 The physical exam completed in the emergency room has been accepted for the purposes of medical clearance to the behavioral health unit. Results & Data (BHU) Current Inpatient Medications Current Inpatient Medications: Current Inpatient Medications Al Hydrox/Mg Hydrox/Simethicone (Aluminum/Magnesium Susp 30 Ml Udc) 30 ml PO Q4H PRN PRN Reason: GI Upset Stop: 06/09/23 05:14 Hydroxyzine HCl (Hydroxyzine Hcl 25 Mg Tab) 25 mg PO Q4H PRN PRN Reason: Anxiety Stop: 06/09/23 05:09 Last Admin: 06/03/23 04:00 Dose: 25 mg Hydroxyzine HCl (Hydroxyzine Hcl 25 Mg Tab) 50 mg PO HSZ PRN PRN Reason: Insomnia Stop: 06/09/23 05:11 Last Admin: 06/04/23 02:57 Dose: 50 mg Magnesium Hydroxide (Magnesium Hydroxide Susp 30 Ml Udc) 30 ml PO DAILY PRN PRN Reason: Constipation Stop: 06/09/23 05:15 Perphenazine (Perphenazine 2 Mg Tablet) 16 mg PO TID JOSEMANUEL Stop: 06/21/23 20:59 Last Admin: 06/04/23 08:42 Dose: 16 mg Trazodone HCl (Trazodone Hcl 100 Mg Tab) 100 mg PO HS JOSEMANUEL Stop: 06/21/23 21:59 Last Admin: 06/03/23 21:04 Dose: 100 mg Venlafaxine HCl (Venlafaxine Hcl Xr 150 Mg Capxr) 150 mg PO QAM JOSEMANUEL Stop: 06/09/23 08:59 Last Admin: 06/04/23 08:41 Dose: 150 mg Mental Health & Subst Abuse Tx Psychiatrist Name of Psychiatrist: Dr. Umberto Aviles Psychiatrist's Psychiatric Appointment Comment: Telehealth Therapist Name of Therapist: Chary Velasquez Therapist's Therapy Appointment Comment: [address] [place] [address] [address], [place] [address] Post Discharge Appointments Primary Care Physician Name Of Family Doctor/PCP: You Brooks (1) Schizophrenia Schizophrenia type: unspecified Qualified Code(s): F20.9 - Schizophrenia, unspecified
[2023-06-04] MEDS: traZODone HCL 100 MG TAB PO SCH (21:01)
[2023-06-05] MEDS: hydrOXYzine HCl 25 MG TAB PO PRN ×2 (00:17→03:07)
[2023-06-05 07:51] LABS: Estimated Average Glucose 108 mg/dl; Hemoglobin A1C 5.4 % (4.5-5.6)
[2023-06-05 07:55] LABS: Chol HDL Ratio 4.2 (0-5)
[2023-06-05] MEDS: VENLAFAXINE HCL XR 150 MG CAPXR PO SCH (08:54)
[2023-06-05] MEDS: PERPHENAZINE 2 MG TAB PO SCH ×3 (08:54→21:43)
--- NOTE | 2023-06-05 15:32 | Psychiatric Progress Note ---
Date of Service June 05, 2023 Impression / Recommendations Impression 52 yo man with schizophrenia with multiple recent psychiatric hospitalizations after each has eloped from his senior living. On 304 commitment and accepted to [facility]. No current bed date. [facility] due to psychosis and limited ability to tolerate peers and hx of aggression with delusions 06/05/2023: Increasingly frustrated by prolonged hospitalization. Psychosis has been under good control. However, team remain very concerned at his extremely rapid and dangerous relapse after discharge following a similarly long admission elsewhere and attempted community re-entry. His current section 304 commitment e xpires week after next, and due to holidays it may be necessary to schedule a hearing this week. 06/04/2023: Is starting to voice more irritation at still being hospitalized, which doesn't really seem inappropriate and which he conveys in calm and cooperative ways. No new or worse symptoms. No evidence of significant side effects. 06/03/2023: Is, by most objective measures, doing very well. He's tolerating the current medication regimen with no side effects and has not been requiring PRN antipsychotic. Unsurprisingly, wishes to talk about returning to the senior living where, he reminds me, "all my stuff is still". He notes that he's been able to avoid acting on command hallucinations while here. I reminded him that he'd been at [facility] for about the same duration when he was discharged from there and relapsed very rapidly, and that I'm sure the team there thought he was doing well enough for discharge. He says that he was on different medication then which is certainly true. However, I still believe that the team there was likely pretty confident that discharge was appropriate based on how well he was doing as an inpatient. The multiple failed attempts at community re-entry present compelling evidence that his doing well in the inpatient setting has poor predictive value in terms of how he does in the outpatient setting. 06/02/2023: We have been notified that pt's previous senior living has discharged him and that he can no longer return there, so he no longer has any community placement available. This had already been understood to be the case but a bed had been being held in the unlikely event he were able to return safely. Pt says he's continuing to do well with minimal hallucinosis and no need for PRN antipsychotic. 06/01/2023: Pt says he's happy with elimination of chlorpromazine and says hallucinations are "under good control". He got first of 2 monthly haloperidol decanoate injections today and expects the second one tomorrow. No new or worse symptoms. No side effects reported. 05/31/2023: Team again reviewed our concerns about the substantial risks to pt if he were discharged to the community. He continues to have on average 2 "bad days" roughly every week during which the command auditory hallucinations direct his actions. Here, he requests to go to [facility]-door seclusion because he's worried he might try to elope and end up seriously injured as has happened many times in the past. He reacts to changes in the milieu, which given the large numbers of admissions and discharges is fairly constant though the structured setting mitigates the effect of those changes (which will not be the case in the community). Pt asks if we can go ahead and stop the quetiapine since he thinks the perphenazine is working well to suppress hallucinations. 05/30/2023: Continues to report minimal to no hallucinations and has not required PRN antipsychotic medication for several days. He wants to continue to planned taper of chlorpromazine. 05/29/2023: Reports very good control of hallucinations on current regimen (actually saying he's not experiencing any at all) but remains guarded about the plan of continuing taper of chlorpromazine until he remains on one phenothiazine (perphenazine) along with depot haloperidol. Reviewed this plan (with which he agrees) and the rationale for it. 05/28/23: He is cooperative but typically becomes a bit suspicious toward the end of the his 15-20 min grounds privileges even with staff support. Even when not actively hallucinating seems to misinterpret social cues (eye contact). Tends to be more reclusive to room or require more prns with any fluctuation in the therapeutic milieu. Also in hospital he doesn't have to interact with general public regularly, do his own shopping or meal prep. Team recommendation is that he would continue to decompensate readily outside of the milieu and state hospital placement remains medically necessary. (1) Schizophrenia: Plan 06/05/2023: Continue medication regimen as on 06/02/2023 06/04/2023: Continue medication regimen as on 06/02/2023 06/03/2023: Continue medication regimen as on 06/02/2023. Pt has been tapered fully from chlorpromazine, remains on perphenazine, and had haloperidol decanoate on 06/01/2023 and 06/02/2023 06/02/2023: * continue perphenazine 16 mg TID * continue venlafaxine XR 150 mg daily * continue haloperidol decanoate total of 400 mg HAYES over two days - last received on 06/01/2023 & 06/02/2023 06/01/2023: * continue perphenazine 16 mg TID * continue venlafaxine XR 150 mg daily * continue haloperidol decanoate total of 400 mg HAYES over two days - ordered for 06/01/2023 & 06/02/2023, last received on 06/01/2023 & 05/05/2023 05/31/2023: * continue perphenazine 16 mg TID * stop chlorpromazine * continue venlafaxine XR 150 mg daily * continue haloperidol decanoate total of 400 mg HAYES over two days - ordered for 06/01/2023 & 06/02/2023, last received on 05/04/2023 & 05/05/2023 05/30/2023: * continue perphenazine 16 mg TID * decrease chlorpromazine to 50 mg QHS with goal of continuing taper until it's eliminated * continue venlafaxine XR 150 mg daily * continue haloperidol decanoate total of 400 mg HAYES over two days - received on 05/04/2023 and 05/05/2023 05/29/2023: * continue perphenazine 16 mg TID * decrease chlorpromazine to 100 mg QHS with goal of continuing taper until it's eliminated * continue venlafaxine XR 150 mg daily * continue haloperidol decanoate total of 400 mg HAYES over two days - received on 05/04/2023 and 05/05/2023 05/28/23: continue current medication and tx plan. Given the patient's length of stay, a general rather than daily summary of interventions from day 1-86 (03/02/23-05/26/23) will follow. Upon admission, the patient's thorazine had to be held and there were attempts to split Haldol dosing given orthostatic hypotension and fall risk with foot fracture. A 304 hearing was held on 03/18/23. Thorazine was reintroduced on 03/17 but did not result in any decrease in Haldol dosing. A diversion meeting was held on 03/28/2023. He was cleared by ortho re: use of boot for foot on 04/01/23. He had declined trials of Clozaril and adjunctive depakote but was amenable to Haldol dec to decrease number of overall pills (04/03 & ). He was not able to taper Haldol PO without an increase in his psychotic symptoms. He was started on a trial of Trilafon on 05/04/23 with benefit. 2nd dose of Haldol dec (400 mg total) was given on 05/04 & 05/05. Trilafon was increased again to 16 mg TID on 05/23/23. Inventory Assets Strengths: taking PO meds, cooperative with tx plan. Able to collaborate with treatment providers. Able to discuss past medications and his response to same Needs: longer term hospitalization, medical monitoring Suicide Risk Level Suicide Risk Level: Moderate (q15 min suicide checks) Suicide Risk Level Comments: The patient remains at moderate risk, primarily because of his persistent inter mittent persecutory auditory hallucinations. He again reiterates that he is not experiencing suicidal thoughts, does not have any suicidal intent, and has no plan for suicide. He denies any command AH. He also convincingly assures us that he will notify staff if thoughts of self-harm emerge and has been consistently seeking out staff support when he feels overwhelmed by hallucinations. Risk Factors Assessment Male: Yes : Yes Do You Have Access To A Gun?: No Mental Health Diagnoses: Yes Previous Attempt: Yes Previous Psychiatric Hospitalization: Yes Protective Factors Assessment Moravian Beliefs: No : No Responsible for Young Children: No Employed: No Stable Relationships: No Supportive Family: No Interval History Identifying Information UMBERTO DAMIAN is a 52-year-old man who lives in a [place] [facility] senior living with a history of schizophrenia, who eloped after returning to his senior living and was found by police wandering with concern for dehydration due to hot temperatures/humidity. He is on a 304 commitment as of 03/18/2023. Chief Complaint "I really feel like I should be able to go home". Review of Systems Sleep Information Total Hours of Sleep: 4 Sleep Comments: PRN 50mg Vistaril Meal Information Percent Meal Consumed - Breakfast: 100 Percent Meal Consumed - Lunch: 100 Percent Meal Consumed - Dinner: 100 Nutrition Comment: Ate all of his meal. Subjective Subjective The patient was seen and assessed and interval progress reviewed in a multidisciplinary team meeting with the treatment team. For details, see the "Impression" section. Overall I spent a total of 29 minutes for this inpatient follow-up including review of chart records, direct evaluation of the patient [id number], counseling the patient, risk assessment, discussion during interdisciplinary treatment rounds, and documentation in the electronic health record. Physical Exam Psychiatric Orientation: alert, oriented to person, oriented to place, oriented to time and cooperative Apperance: appropriately dressed and appropriately groomed Eye Contact: good eye contact Motor Behavior: no abnormal motor movements Speech: normal rate/rhythm/volume of speech Affect: euthymic affect and mood congruent with affect Mood: + anxious mood; no depressed mood Thought Process: clear/coherent thought process Thought Content: + paranoid (intermittent), reality based without delusions (for the most part) and + persecution Suicidal Thoughts: denies suicidal thoughts, denies suicidal plan and denies suicidal intent Homicidal Thoughts: denies homicidal thoughts Hallucinations: + auditory hallucinations (intermittent) and + visual hallucinations (intermittently seeing people in trenchcoats, falling into a garden) Cognition: recent memory grossly intact, remote memory grossly intact, attention grossly intact and language grossly intact Estimated Intelligence: average estimated intelligence and consistent with education level Insight: + limited insight Judgment: + limited judgement Vital Signs (Past 24 Hours) Last Vital Signs Temp 36.5 C 06/05/23 06:46 Pulse 88 06/05/23 06:47 Resp 16 06/05/23 06:46 BP 120/77 06/05/23 06:47 Pulse Ox 99 06/03/23 07:04 O2 Del Method Room Air 06/03/23 07:04 The physical exam completed in the emergency room has been accepted for the purposes of medical clearance to the behavioral health unit. Results & Data ([facility]) Laboratory Results Laboratory Results - last 24 hr 06/05/23 07:01 Estimat Average Glucose 108 Hemoglobin A1c 5.4 Triglycerides 124 Cholesterol 158 LDL Cholesterol, Calc 95 VLDL Cholesterol, Calc 25 HDL Cholesterol 38 Cholesterol/HDL Ratio 4.2 Current Inpatient Medications Current Inpatient Medications: Current Inpatient Medications Al Hydrox/Mg Hydrox/Simethicone (Aluminum/Magnesium Susp 30 Ml Udc) 30 ml PO Q4H PRN PRN Reason: GI Upset Stop: 06/09/23 05:14 Hydroxyzine HCl (Hydroxyzine Hcl 25 Mg Tab) 25 mg PO Q4H PRN PRN Reason: Anxiety Stop: 06/09/23 05:09 Last Admin: 06/05/23 03:07 Dose: 25 mg Hydroxyzine HCl (Hydroxyzine Hcl 25 Mg Tab) 50 mg PO HSZ PRN PRN Reason: Insomnia Stop: 06/09/23 05:11 Last Admin: 06/05/23 00:17 Dose: 50 mg Magnesium Hydroxide (Magnesium Hydroxide Susp 30 Ml Udc) 30 ml PO DAILY PRN PRN Reason: Constipation Stop: 06/09/23 05:15 Perphenazine (Perphenazine 2 Mg Tablet) 16 mg PO TID JOSEMANUEL Stop: 06/21/23 20:59 Last Admin: 06/05/23 14:32 Dose: 16 mg Trazodone HCl (Trazodone Hcl 100 Mg Tab) 100 mg PO HS JOSEMANUEL Stop: 06/21/23 21:59 Last Admin: 06/04/23 21:01 Dose: 100 mg Venlafaxine HCl (Venlafaxine Hcl Xr 150 Mg Capxr) 150 mg PO QAM JOSEMANUEL Stop: 06/09/23 08:59 Last Admin: 06/05/23 08:54 Dose: 150 mg Mental Health & Subst Abuse Tx Psychiatrist Name of Psychiatrist: Dr. Umberto Aviles Psychiatrist's Psychiatric Appointment Comment: Telehealth Therapist Name of Therapist: Chary Velasquez Therapist's Therapy Appointment Comment: [address] [place] [address] [id number], [place] [address] Post Discharge Appointments Primary Care Physician Name Of Family Doctor/PCP: You Brooks (1) Schizophrenia Schizophrenia type: unspecified Qualified Code(s): F20.9 - Schizophrenia, unspecified
[2023-06-05] MEDS: traZODone HCL 100 MG TAB PO SCH (21:45)
[2023-06-06] MEDS: hydrOXYzine HCl 25 MG TAB PO PRN (00:13)
[2023-06-06] MEDS: VENLAFAXINE HCL XR 150 MG CAPXR PO SCH (09:02)
[2023-06-06] MEDS: PERPHENAZINE 2 MG TAB PO SCH ×3 (09:02→20:34)
--- NOTE | 2023-06-06 12:15 | Psychiatric Progress Note ---
Date of Service June 06, 2023 Impression / Recommendations Impression 52 yo man with schizophrenia with multiple recent psychiatric hospitalizations after each has eloped from his half-way. On 304 commitment and accepted to formerly [facility] hospital. No current bed date. [facility] due to psychosis and limited ability to tolerate peers and hx of aggression with delusions 06/06/2023: Pt now no longer remembers the most recent time he needed PRN antipsychotic medication. He's spending more time in his room and participating in groups less - says it feels as if he's done them so many times. I spoke with pt about the approaching expiration of his section 304 commitment and that a hearing will likely need to be scheduled this week rather than next. I encouraged him to participate in this one. 06/05/2023: Increasingly frustrated by prolonged hospitalization. Psychosis has been under good control. However, team remain very concerned at his extremely rapid and dangerous relapse after discharge following a similarly long admission elsewhere and attempted community re-entry. His current section 304 commitment expires week after next, and due to holidays it may be necessary to schedule a hearing this week. 06/04/2023: Is starting to voice more irritation at still being hospitalized, which doesn't really seem inappropriate and which he conveys in calm and cooperative ways. No new or worse symptoms. No evidence of significant side effects. 06/03/2023: Is, by most objective measures, doing very well. He's tolerating the current medication regimen with no side effects and has not been requiring PRN antipsychotic. Unsurprisingly, wishes to talk about returning to the half-way where, he reminds me, "all my stuff is still". He notes that he's been able to avoid acting on command hallucinations while here. I reminded him that he'd been at [facility] for about the same duration when he was discharged from there and relapsed very rapidly, and that I'm sure the team there thought he was doing well enough for discharge. He says that he was on different medication then neel h is certainly true. However, I still believe that the team there was likely pretty confident that discharge was appropriate based on how well he was doing as an inpatient. The multiple failed attempts at community re-entry present compelling evidence that his doing well in the inpatient setting has poor predictive value in terms of how he does in the outpatient setting. 06/02/2023: We have been notified that pt's previous half-way has discharged him and that he can no longer return there, so he no longer has any community placement available. This had already been understood to be the case but a bed had been being held in the unlikely event he were able to return safely. Pt says he's continuing to do well with minimal hallucinosis and no need for PRN antipsychotic. 06/01/2023: Pt says he's happy with elimination of chlorpromazine and says hallucinations are "under good control". He got first of 2 monthly haloperidol decanoate injections today and expects the second one tomorrow. No new or worse symptoms. No side effects reported. 05/31/2023: Team again reviewed our concerns about the substantial risks to pt if he were discharged to the community. He continues to have on average 2 "bad days" roughly every week during which the command auditory hallucinations direct his actions. Here, he requests to go to [facility] because he's worried he might try to elope and end up seriously injured as has happened many times in the past. He reacts to changes in the milieu, which given the large numbers of admissions and discharges is fairly constant though the structured setting mitigates the effect of those changes (which will not be the case in the community). Pt asks if we can go ahead and stop the quetiapine since he thinks the perphenazine is working well to suppress hallucinations. 05/30/2023: Continues to report minimal to no hallucinations and has not required PRN antipsychotic medication for several days. He wants to continue to planned taper of chlorpromazine. 05/29/2023: Reports very good control of hallucinations on current regimen (actually saying he's not experiencing any at all) but remains guarded about the plan of continuing taper of chlorpromazine until he remains on one phenothiazine (perphenazine) along with depot haloperidol. Reviewed this plan (with which he agrees) and the rationale for it. 05/28/23: He is cooperative but typically becomes a bit suspicious toward the end of the his 15-20 min grounds privileges even with staff support. Even when not actively hallucinating seems to misinterpret social cues (eye contact). Tends to be more reclusive to room or require more prns with any fluctuation in the therapeutic milieu. Also in hospital he doesn't have to interact with general public regularly, do his own shopping or meal prep. Team recommendation is that he would continue to decompensate readily outside of the milieu and state hospital placement remains medically necessary. (1) Schizophrenia: Plan 06/05/2023: Continue medication regimen as on 06/02/2023 06/05/2023: Continue medication regimen as on 06/02/2023 06/04/2023: Continue medication regimen as on 06/02/2023 06/03/2023: Continue medication regimen as on 06/02/2023. Pt has been tapered fully from chlorpromazine, remains on perphenazine, and had haloperidol decanoate on 06/01/2023 and 06/02/2023 06/02/2023: * continue perphenazine 16 mg TID * continue venlafaxine XR 150 mg daily * continue haloperidol decanoate total of 400 mg HAYES over two days - last received on 06/01/2023 & 06/02/2023 06/01/2023: * continue perphenazine 16 mg TID * continue venlafaxine XR 150 mg daily * continue haloperidol decanoate total of 400 mg HAYES over two days - ordered for 06/01/2023 & 06/02/2023, last received on 06/01/2023 & 05/05/2023 05/31/2023: * continue perphenazine 16 mg TID * stop chlorpromazine * continue venlafaxine XR 150 mg daily * continue haloperidol decanoate total of 400 mg HAYES over two days - ordered for 06/01/2023 & 06/02/2023, last received on 05/04/2023 & 05/05/2023 05/30/2023: * continue perphenazine 16 mg TID * decrease chlorpromazine to 50 mg QHS with goal of continuing taper until it's eliminated * continue venlafaxine XR 150 mg daily * continue haloperidol decanoate total of 400 mg HAYES over two days - received on 05/04/2023 and 05/05/2023 05/29/2023: * continue perphenazine 16 mg TID * decrease chlorpromazine to 100 mg QHS with goal of continuing taper until it's eliminated * continue venlafaxine XR 150 mg daily * continue haloperidol decanoate total of 400 mg HAYES over two days - received on 05/04/2023 and 05/05/2023 05/28/23: continue current medication and tx plan. Given the patient's length of stay, a general rather than daily summary of interventions from day 1-86 (03/02/23-05/26/23) will follow. Upon admission, the patient's thorazine had to be held and there were attempts to split Haldol dosing given orthostatic hypotension and fall risk with foot fracture. A 304 hearing was held on 03/18/23. Thorazine was reintroduced on 03/17 but did not result in any decrease in Haldol dosing. A diversion meeting was held on 03/28/2023. He was cleared by ortho re: use of boot for foot on 04/01/23. He had declined trials of Clozaril and adjunctive depakote but was amenable to Haldol dec to decrease number of overall pills (04/03 & ). He was not able to taper Haldol PO without an increase in his psychotic symptoms. He was started on a trial of Trilafon on 05/04/23 with benefit. 2nd dose of Haldol dec (400 mg total) was given on 05/04 & 05/05. Trilafon was increased again to 16 mg TID on 05/23/23. Inventory Assets Strengths: taking PO meds, cooperative with tx plan. Able to collaborate with treatment providers. Able to discuss past medications and his response to same Needs: longer term hospitalization, medical monitoring Suicide Risk Level Suicide Risk Level: Moderate (q15 min suicide checks) Suicide Risk Level Comments: The patient remains at moderate risk, primarily because of his persistent intermittent persecutory auditory hallucinations. He again reiterates that he is not experiencing suicidal thoughts, does not have any suicidal intent, and has no plan for suicide. He denies any command AH. He also convincingly assures us that he will notify staff if thoughts of self-harm emerge and has been consistently seeking out staff support when he feels overwhelmed by hallucinations. Risk Factors Assessment Male: Yes : Yes Do You Have Access To A Gun?: No Mental Health Diagnoses: Yes Previous Attempt: Yes Previous Psychiatric Hospitalization: Yes Protective Factors Assessment Confucianism Beliefs: No : No Responsible for Young Children: No Employed: No Stable Relationships: No Supportive Family: No Interval History Identifying Information UMBERTO DAMIAN is a 52-year-old man who lives in a [place] psychiatric half-way with a history of schizophrenia, who eloped after returning to his half-way and was found by police wandering with concern for dehydration due to hot temperatures/humidity. He is on a 304 commitment as of 03/18/2023. Chief Complaint "I'm about the same". Review of Systems Sleep Information Total Hours of Sleep: 6.5 Sleep Comments: PRN 50mg Vistaril Meal Information Percent Meal Consumed - Breakfast: 100 Percent Meal Consumed - Lunch: 100 Percent Meal Consumed - Dinner: 100 Nutrition Comment: Ate all of his meal. Subjective Subjective The patient was seen and assessed and interval progress reviewed in a multidisciplinary team meeting with the treatment team. For details, see the "Impression" section. Overall I spent a total of 26 minutes for this inpatient follow-up including review of chart records, direct evaluation of the patient [id number], counseling the patient, medication education with the patient, risk assessment, discussion during interdisciplinary treatment rounds, and documentation in the electronic health record. Physical Exam Psychiatric Orientation: alert, oriented to person, oriented to place, oriented to time and cooperative Apperance: appropriately dressed and appropriately groomed Eye Contact: good eye contact and + fair eye contact Motor Behavior: no abnormal motor movements Speech: normal rate/rhythm/volume of speech Affect: euthymic affect and mood congruent with affect Mood: + anxious mood; no depressed mood Thought Process: clear/coherent thought process Thought Content: + paranoid (intermittent), reality based without delusions (for the most part) and + persecution Suicidal Thoughts: denies suicidal thoughts, denies suicidal plan and denies suicidal intent Homicidal Thoughts: denies homicidal thoughts Hallucinations: + auditory hallucinations (intermittent) and + visual hallucinations (intermittently seeing people in trenchcoats, falling into a garden) Cognition: recent memory grossly intact, remote memory grossly intact, attention grossly intact and language grossly intact Estimated Intelligence: average estimated intelligence and consistent with education level Insight: + limited insight Judgment: + limited judgement Vital Signs (Past 24 Hours) Last Vital Signs Temp 36.6 C 06/06/23 06:35 Pulse 84 06/06/23 06:36 Resp 16 06/06/23 06:35 BP 121/82 06/06/23 06:36 Pulse Ox 99 06/03/23 07:04 O2 Del Method Room Air 06/03/23 07:04 The physical exam completed in the emergency room has been accepted for the purposes of medical clearance to the behavioral health unit. Results & Data ([facility]) Current Inpatient Medications Current Inpatient Medications: Current Inpatient Medications Al Hydrox/Mg Hydrox/Simethicone (Aluminum/Magnesium Susp 30 Ml Udc) 30 ml PO Q4H PRN PRN Reason: GI Upset Stop: 06/09/23 05:14 Hydroxyzine HCl (Hydroxyzine Hcl 25 Mg Tab) 25 mg PO Q4H PRN PRN Reason: Anxiety Stop: 06/09/23 05:09 Last Admin: 06/05/23 03:07 Dose: 25 mg Hydroxyzine HCl (Hydroxyzine Hcl 25 Mg Tab) 50 mg PO HSZ PRN PRN Reason: Insomnia Stop: 06/09/23 05:11 Last Admin: 06/06/23 00:13 Dose: 50 mg Magnesium Hydroxide (Magnesium Hydroxide Susp 30 Ml Udc) 30 ml PO DAILY PRN PRN Reason: Constipation Stop: 06/09/23 05:15 Perphenazine (Perphenazine 2 Mg Tablet) 16 mg PO TID JOSEMANUEL Stop: 06/21/23 20:59 Last Admin: 06/06/23 09:02 Dose: 16 mg Trazodone HCl (Trazodone Hcl 100 Mg Tab) 100 mg PO HS JOSEMANUEL Stop: 06/21/23 21:59 Last Admin: 06/05/23 21:45 Dose: 100 mg Venlafaxine HCl (Venlafaxine Hcl Xr 150 Mg Capxr) 150 mg PO QAM JOSEMANUEL Stop: 06/09/23 08:59 Last Admin: 06/06/23 09:02 Dose: 150 mg Mental Health & Subst Abuse Tx Psychiatrist Name of Psychiatrist: Dr. Umberto Aviles Psychiatrist's Psychiatric Appointment Comment: Telehealth Therapist Name of Therapist: Chary Velasquez Therapist's Therapy Appointment Comment: [address] [place] [id number], [place] [address] Post Discharge Appointments Primary Care Physician Name Of Family Doctor/PCP: You Brooks (1) Schizophrenia Schizophrenia type: unspecified Qualified Code(s): F20.9 - Schizophrenia, unspecified
[2023-06-06] MEDS: traZODone HCL 100 MG TAB PO SCH (20:34)
[2023-06-07] MEDS: hydrOXYzine HCl 25 MG TAB PO PRN ×2 (00:02→03:52)
[2023-06-07] MEDS: PERPHENAZINE 2 MG TAB PO SCH (08:35)
[2023-06-07] MEDS: VENLAFAXINE HCL XR 150 MG CAPXR PO SCH (08:35)
[2023-06-07] MEDS: PERPHENAZINE 4 MG TAB PO SCH ×2 (14:30→21:09)
--- NOTE | 2023-06-07 15:35 | Psychiatric Progress Note ---
Date of Service June 07, 2023 Impression / Recommendations Impression 52 yo man with schizophrenia with multiple recent psychiatric hospitalizations after each has eloped from his nursing home. On 304 commitment and accepted to [facility]. No current bed date. [facility] due to psychosis and limited ability to tolerate peers and hx of aggression with delusions 06/07/2023: Continues to do very well with no recent need to PRN antipsychotics. Staff have been working to identify ways to address his boredom. He looks forward to visit from Joann tomorrow. 06/06/2023: Pt now no longer remembers the most recent time he needed PRN antipsychotic medication. He's spending more time in his room and participating in groups less - says it feels as if he's done them so many times. I spoke with pt about the approaching expiration of his section 304 commitment and that a hearing will likely need to be scheduled this week rather than next. I encouraged him to participate in this one. 06/05/2023: Increasingly frustrated by prolonged hospitalization. Psychosis has been under good control. However, team remain very concerned at his extremely rapid and dangerous relapse after discharge following a similarly long admission elsewhere and attempted community re-entry. His current section 304 commitment expires week after next, and due to holidays it may be necessary to schedule a hearing this week. 06/04/2023: Is starting to voice more irritation at still being hospitalized, wh ich doesn't really seem inappropriate and which he conveys in calm and cooperative ways. No new or worse symptoms. No evidence of significant side effects. 06/03/2023: Is, by most objective measures, doing very well. He's tolerating the current medication regimen with no side effects and has not been requiring PRN antipsychotic. Unsurprisingly, wishes to talk about returning to the nursing home where, he reminds me, "all my stuff is still". He notes that he's been able to avoid acting on command hallucinations while here. I reminded him that he'd been at [facility] for about the same duration when he was discharged from there and relapsed very rapidly, and that I'm sure the team there thought he was doing well enough for discharge. He says that he was on different medication then which is certainly true. However, I still believe that the team there was likely pretty confident that discharge was appropriate based on how well he was doing as an inpatient. The multiple failed attempts at community re-entry present compelling evidence that his doing well in the inpatient setting has poor predictive value in terms of how he does in the outpatient setting. 06/02/2023: We have been notified that pt's previous nursing home has discharged him and that he can no longer return there, so he no longer has any community placement available. This had already been understood to be the case but a bed had been being held in the unlikely event he were able to return safely. Pt says he's continuing to do well with minimal hallucinosis and no need for PRN antipsychotic. 06/01/2023: Pt says he's happy with elimination of chlorpromazine and says hallucinations are "under good control". He got first of 2 monthly haloperidol decanoate injections today and expects the second one tomorrow. No new or worse symptoms. No side effects reported. 05/31/2023: Team again reviewed our concerns about the substantial risks to pt if he were discharged to the community. He continues to have on average 2 "bad days" roughly every week during which the command auditory hallucinations direct his actions. Here, he requests to go to [facility] because he's worried he might try to elope and end up seriously injured as has happened many times in the past. He reacts to changes in the milieu, which given the large numbers of admissions and discharges is fairly constant though the structured setting mitigates the effect of those changes (which will not be the case in the community). Pt asks if we can go ahead and stop the quetiapine since he thinks the perphenazine is working well to suppress hallucinations. 05/30/2023: Continues to report minimal to no hallucinations and has not required PRN antipsychotic medication for several days. He wants to continue to planned taper of chlorpromazine. 05/29/2023: Reports very good control of hallucinations on current regimen (actually saying he's not experiencing any at all) but remains guarded about the plan of continuing taper of chlorpromazine until he remains on one phenothiazine (perphenazine) along with depot haloperidol. Reviewed this plan (with which he agrees) and the rationale for it. 05/28/23: He is cooperative but typically becomes a bit suspicious toward the end of the his 15-20 min grounds privileges even with staff support. Even when not actively hallucinating seems to misinterpret social cues (eye contact). Tends to be more reclusive to room or require more prns with any fluctuation in the therapeutic milieu. Also in hospital he doesn't have to interact with general public regularly, do his own shopping or meal prep. Team recommendation is that he would continue to decompensate readily outside of the milieu and state hospital placement remains medically necessary. (1) Schizophrenia: Plan 06/07/2023: Continue medication regimen as on 06/02/2023 06/06/2023: Continue medication regimen as on 06/02/2023 06/05/2023: Continue medication regimen as on 06/02/2023 06/04/2023: Continue medication regimen as on 06/02/2023 06/03/2023: Continue medication regimen as on 06/02/2023. Pt has been tapered fully from chlorpromazine, remains on perphenazine, and had haloperidol decanoate on 06/01/2023 and 06/02/2023 06/02/2023: * continue perphenazine 16 mg TID * continue venlafaxine XR 150 mg daily * continue haloperidol decanoate total of 400 mg HAYES over two days - last received on 06/01/2023 & 06/02/2023 06/01/2023: * continue perphenazine 16 mg TID * continue venlafaxine XR 150 mg daily * continue haloperidol decanoate total of 400 mg HAYES over two days - ordered for 06/01/2023 & 06/02/2023, last received on 06/01/2023 & 05/05/2023 05/31/2023: * continue perphenazine 16 mg TID * stop chlorpromazine * continue venlafaxine XR 150 mg daily * continue haloperidol decanoate total of 400 mg HAYES over two days - ordered for 06/01/2023 & 06/02/2023, last received on 05/04/2023 & 05/05/2023 05/30/2023: * continue perphenazine 16 mg TID * decrease chlorpromazine to 50 mg QHS with goal of continuing taper until it's eliminated * continue venlafaxine XR 150 mg daily * continue haloperidol decanoate total of 400 mg HAYES over two days - received on 05/04/2023 and 05/05/2023 05/29/2023: * continue perphenazine 16 mg TID * decrease chlorpromazine to 100 mg QHS with goal of continuing taper until it's eliminated * continue venlafaxine XR 150 mg daily * continue haloperidol decanoate total of 400 mg HAYES over two days - received on 05/04/2023 and 05/05/2023 05/28/23: continue current medication and tx plan. Given the patient's length of stay, a general rather than daily summary of interventions from day 1-86 (03/02/23-05/26/23) will follow. Upon admission, the patient's thorazine had to be held and there were attempts to split Haldol dos ing given orthostatic hypotension and fall risk with foot fracture. A 304 hearing was held on 03/18/23. Thorazine was reintroduced on 03/17 but did not result in any decrease in Haldol dosing. A diversion meeting was held on 03/28/2023. He was cleared by ortho re: use of boot for foot on 04/01/23. He had declined trials of Clozaril and adjunctive depakote but was amenable to Haldol dec to decrease number of overall pills (04/03 & ). He was not able to taper Haldol PO without an increase in his psychotic symptoms. He was started on a trial of Trilafon on 05/04/23 with benefit. 2nd dose of Haldol dec (400 mg total) was given on 05/04 & 05/05. Trilafon was increased again to 16 mg TID on 05/23/23. Inventory Assets Strengths: taking PO meds, cooperative with tx plan. Able to collaborate with treatment providers. Able to discuss past medications and his response to same Needs: longer term hospitalization, medical monitoring Suicide Risk Level Suicide Risk Level: Moderate (q15 min suicide checks) Suicide Risk Level Comments: The patient remains at moderate risk, primarily because of his persistent intermittent persecutory auditory hallucinations. He again reiterates that he is not experiencing suicidal thoughts, does not have any suicidal intent, and has no plan for suicide. He denies any command AH. He also convincingly assures us that he will notify staff if thoughts of self-harm emerge and has been consistently seeking out staff support when he feels overwhelmed by hallucinations. Risk Factors Assessment Male: Yes : Yes Do You Have Access To A Gun?: No Mental Health Diagnoses: Yes Previous Attempt: Yes Previous Psychiatric Hospitalization: Yes Protective Factors Assessment Mormon Beliefs: No : No Responsible for Young Children: No Employed: No Stable Relationships: No Supportive Family: No Interval History Identifying Information UMBERTO DAMIAN is a 52-year-old man who lives in a [place] psychiatric nursing home with a history of schizophrenia, who eloped after returning to his nursing home and was found by police wandering with concern for dehydration due to hot temperatures/humidity. He is on a 304 commitment as of 03/18/2023. Chief Complaint "I'm OK". Review of Systems Sleep Information Total Hours of Sleep: 6.25 Sleep Comments: PRN 50mg Vistaril Meal Information Percent Meal Consumed - Breakfast: 100 Percent Meal Consumed - Lunch: 100 Percent Meal Consumed - Dinner: 100 Nutrition Comment: Ate all of his meal. Subjective Subjective The patient was seen and assessed and interval progress reviewed in a multidisciplinary team meeting with the treatment team. For details, see the "Impression" section. Overall I spent a total of 26 minutes for this inpatient follow-up including review of chart records, direct evaluation of the patient [id number], counseling the patient, medication education with the patient, risk assessment, discussion during interdisciplinary treatment rounds, and documentation in the electronic health record. Physical Exam Psychiatric Orientation: alert, oriented to person, oriented to place, oriented to time and cooperative Apperance: appropriately dressed and appropriately groomed Eye Contact: good eye contact Motor Behavior: no abnormal motor movements Speech: normal rate/rhythm/volume of speech Affect: euthymic affect and mood congruent with affect Mood: + anxious mood; no depressed mood Thought Process: clear/coherent thought process and + concrete thought process Thought Content: reality based without delusions (for the most part) Suicidal Thoughts: denies suicidal thoughts, denies suicidal plan and denies suicidal intent Homicidal Thoughts: denies homicidal thoughts Hallucinations: + auditory hallucinations (intermittent) and + visual hallucinations (intermittently seeing people in trenchcoats, falling into a garden) Cognition: recent memory grossly intact, remote memory grossly intact, attention grossly intact and language grossly intact Estimated Intelligence: consistent with education level Insight: + limited insight Judgment: + limited judgement Vital Signs (Past 24 Hours) Last Vital Signs Temp 36.6 C 06/07/23 06:43 Pulse 88 06/07/23 06:44 Resp 16 06/07/23 06:43 BP 107/73 06/07/23 06:44 Pulse Ox 99 06/03/23 07:04 O2 Del Method Room Air 06/03/23 07:04 The physical exam completed in the emergency room has been accepted for the purposes of medical clearance to the behavioral health unit. Results & Data ([facility]) Current Inpatient Medications Current Inpatient Medications: Current Inpatient Medications Al Hydrox/Mg Hydrox/Simethicone (Aluminum/Magnesium Susp 30 Ml Udc) 30 ml PO Q4H PRN PRN Reason: GI Upset Stop: 06/09/23 05:14 Hydroxyzine HCl (Hydroxyzine Hcl 25 Mg Tab) 25 mg PO Q4H PRN PRN Reason: Anxiety Stop: 06/09/23 05:09 Last Admin: 06/07/23 03:52 Dose: 25 mg Hydroxyzine HCl (Hydroxyzine Hcl 25 Mg Tab) 50 mg PO HSZ PRN PRN Reason: Insomnia Stop: 06/09/23 05:11 Last Admin: 06/07/23 00:02 Dose: 50 mg Magnesium Hydroxide (Magnesium Hydroxide Susp 30 Ml Udc) 30 ml PO DAILY PRN PRN Reason: Constipation Stop: 06/09/23 05:15 Perphenazine (Perphenazine 4 Mg Tab) 16 mg PO TID JOSEMANUEL Stop: 07/07/23 13:59 Last Admin: 06/07/23 14:30 Dose: 16 mg Trazodone HCl (Trazodone Hcl 100 Mg Tab) 100 mg PO HS JOSEMANUEL Stop: 06/21/23 21:59 Last Admin: 06/06/23 20:34 Dose: 100 mg Venlafaxine HCl (Venlafaxine Hcl Xr 150 Mg Capxr) 150 mg PO QAM JOSEMANUEL Stop: 06/09/23 08:59 Last Admin: 06/07/23 08:35 Dose: 150 mg Mental Health & Subst Abuse Tx Psychiatrist Name of Psychiatrist: Dr. Umberto Aviles Psychiatrist's Psychiatric Appointment Comment: Telehealth Therapist Name of Therapist: Chary Velasquez Therapist's Therapy Appointment Comment: [id number], [place] [address] Post Discharge Appointments Primary Care Physician Name Of Family Doctor/PCP: You Brooks (1) Schizophrenia Schizophrenia type: unspecified Qualified Code(s): F20.9 - Schizophrenia, unspecified
[2023-06-07] MEDS: traZODone HCL 100 MG TAB PO SCH (21:09)
[2023-06-08] MEDS: PERPHENAZINE 4 MG TAB PO SCH ×3 (08:51→21:01)
[2023-06-08] MEDS: VENLAFAXINE HCL XR 150 MG CAPXR PO SCH (08:52)
--- NOTE | 2023-06-08 13:34 | Psychiatric Progress Note ---
Date of Service June 08, 2023 Impression / Recommendations Impression 52 yo man with schizophrenia with multiple recent psychiatric hospitalizations after each has eloped from his [place] [facility]. On 304 commitment and accepted to [facility]. No current bed date. MNPR due to psychosis and limited ability to tolerate peers and hx of aggression with delusions 06/08/2023: Pt had a visit from [facility] today during which he learned that they're releasing his room so he wouldn't be able to return there. He says he understands this but is disappointed by it. He reports "the voices have started up again" and he's been hearing critical voices. He denies any visual hallucinations. All of pt's PRN medications , so discussed with him whether he'd prefer to resume the chlorpromazine or use perphenazine for that. He elected the latter. 06/07/2023: Continues to do very well with no recent need to PRN antipsychotics. Staff have been working to identify ways to address his boredom. He looks forward to visit from [facility] tomorrow. 06/06/2023: Pt now no longer remembers the most recent time he needed PRN antipsychotic medication. He's spending more time in his room and participating in groups less - says it feels as if he's done them so many times. I spoke with pt about the approaching expiration of his section 304 commitment and that a hearing will likely need to be scheduled this week rather than next. I encouraged him to participate in this one. 06/05/2023: Increasingly frustrated by prolonged hospitalization. Psychosis has been under good control. However, team remain very concerned at his extremely rapid and dangerous relapse after discharge following a similarly long admission elsewhere and attempted community re-entry. His current section 304 commitment expires week after next, and due to holidays it may be necessary to schedule a hearing this week. 06/04/2023: Is starting to voice more irritation at still being hospitalized, which doesn't really seem inappropriate and which he conveys in calm and cooperative ways. No new or worse symptoms. No evidence of significant side effects. 06/03/2023: Is, by most objective measures, doing very well. He's tolerating the current medication regimen with no side effects and has not been requiring PRN antipsychotic. Unsurprisingly, wishes to talk about returning to the [place] [facility] [place] where, he reminds me, "all my stuff is still". He notes that he's been able to avoid acting on command hallucinations while here. I reminded him that he'd been at [facility] for about the same duration when he was discharged from there and relapsed very rapidly, and that I'm sure the team there thought he was doing well enough for discharge. He says that he was on different medication then which is certainly true. However, I still believe that the team there was likely pretty confident that discharge was appropriate based on how well he was doing as an inpatient. The multiple failed attempts at community re-entry present compelling evidence that his doing well in the inpatient setting has poor predictive value in terms of how he does in the outpatient setting. 06/02/2023: We have been notified that pt's previous [place] [facility] has discharged him and that he can no longer return there, so he no longer has any community placement available. This had already been understood to be the case but a bed had been being held in the unlikely event he were able to return safely. Pt says he's continuing to do well with minimal hallucinosis and no need for PRN antipsychotic. 06/01/2023: Pt says he's happy with elimination of chlorpromazine and says hallucinations are "under good control". He got first of 2 monthly haloperidol decanoate injections today and expects the second one tomorrow. No new or worse symptoms. No side effects reported. 05/31/2023: Team again reviewed our concerns about the substantial risks to pt if he were discharged to the community. He continues to have on average 2 "bad days" roughly every week during which the command auditory hallucinations direct his actions. Here, he requests to go to [facility] because he's worried he might try to elope and end up seriously injured as has happened many times in the past. He reacts to changes in the milieu, which given the large numbers of admissions and discharges is fairly constant though the structured setting mitigates the effect of those changes (which will not be the case in the community). Pt asks if we can go ahead and stop the quetiapine since he thinks the perphenazine is working well to suppress hallucinations. 05/30/2023: Continues to report minimal to no hallucinations and has not requir ed PRN antipsychotic medication for several days. He wants to continue to planned taper of chlorpromazine. 05/29/2023: Reports very good control of hallucinations on current regimen (actually saying he's not experiencing any at all) but remains guarded about the plan of continuing taper of chlorpromazine until he remains on one phenothiazine (perphenazine) along with depot haloperidol. Reviewed this plan (with which he agrees) and the rationale for it. 05/28/23: He is cooperative but typically becomes a bit suspicious toward the end of the his 15-20 min grounds privileges even with staff support. Even when not actively hallucinating seems to misinterpret social cues (eye contact). Tends to be more reclusive to room or require more prns with any fluctuation in the therapeutic milieu. Also in hospital he doesn't have to interact with general public regularly, do his own shopping or meal prep. Team recommendation is that he would continue to decompensate readily outside of the milieu and state hospital placement remains medically necessary. (1) Schizophrenia: Plan 06/08/2023: * continue perphenazine 16 mg TID * start perphenazine 8 mg Q8H PRN psychosis * continue venlafaxine XR 150 mg daily * continue haloperidol decanoate total of 400 mg HAYES over two days - ordered for 06/01/2023 & 06/02/2023, last received on 06/01/2023 & 05/05/2023 06/07/2023: Continue medication regimen as on 06/02/2023 06/06/2023: Continue medication regimen as on 06/02/2023 06/05/2023: Continue medication regimen as on 06/02/2023 06/04/2023: Continue medication regimen as on 06/02/2023 06/03/2023: Continue medication regimen as on 06/02/2023. Pt has been tapered fully from chlorpromazine, remains on perphenazine, and had haloperidol decanoate on 06/01/2023 and 06/02/2023 06/02/2023: * continue perphenazine 16 mg TID * continue venlafaxine XR 150 mg daily * continue haloperidol decanoate total of 400 mg HAYES over two days - last received on 06/01/2023 & 06/02/2023 06/01/2023: * continue perphenazine 16 mg TID * continue venlafaxine XR 150 mg daily * continue haloperidol decanoate total of 400 mg HAYES over two days - ordered for 06/01/2023 & 06/02/2023, last received on 06/01/2023 & 05/05/2023 05/31/2023: * continue perphenazine 16 mg TID * stop chlorpromazine * continue venlafaxine XR 150 mg daily * continue haloperidol decanoate total of 400 mg HAYES over two days - ordered for 06/01/2023 & 06/02/2023, last received on 05/04/2023 & 05/05/2023 05/30/2023: * continue perphenazine 16 mg TID * decrease chlorpromazine to 50 mg QHS with goal of continuing taper until it's eliminated * continue venlafaxine XR 150 mg daily * continue haloperidol decanoate total of 400 mg HAYES over two days - received on 05/04/2023 and 05/05/2023 05/29/2023: * continue perphenazine 16 mg TID * decrease chlorpromazine to 100 mg QHS with goal of continuing taper until it's eliminated * continue venlafaxine XR 150 mg daily * continue haloperidol decanoate total of 400 mg HAYES over two days - received on 05/04/2023 and 05/05/2023 05/28/23: continue current medication and tx plan. Given the patient's length of stay, a general rather than daily summary of inter ventions from day 1-86 (03/02/23-05/26/23) will follow. Upon admission, the patient's thorazine had to be held and there were attempts to split Haldol dosing given orthostatic hypotension and fall risk with foot fracture. A 304 hearing was held on 03/18/23. Thorazine was reintroduced on 03/17 but did not result in any decrease in Haldol dosing. A diversion meeting was held on 03/28/2023. He was cleared by ortho re: use of boot for foot on 04/01/23. He had declined trials of Clozaril and adjunctive depakote but was amenable to Haldol dec to decrease number of overall pills (04/03 & 16). He was not able to taper Haldol PO without an increase in his psychotic symptoms. He was started on a trial of Trilafon on 05/04/23 with benefit. 2nd dose of Haldol dec (400 mg total) was given on 05/04 & 05/05. Trilafon was increased again to 16 mg TID on 05/23/23. Inventory Assets Strengths: taking PO meds, cooperative with tx plan. Able to collaborate with treatment providers. Able to discuss past medications and his response to same Needs: longer term hospitalization, medical monitoring Suicide Risk Level Suicide Risk Level: Moderate (q15 min suicide checks) Suicide Risk Level Comments: The patient remains at moderate risk, primarily because of his persistent intermittent persecutory auditory hallucinations. He again reiterates that he is not experiencing suicidal thoughts, does not have any suicidal intent, and has no plan for suicide. He denies any command AH. He also convincingly assures us that he will notify staff if thoughts of self-harm emerge and has been c onsistently seeking out staff support when he feels overwhelmed by hallucinations. Risk Factors Assessment Male: Yes : Yes Do You Have Access To A Gun?: No Mental Health Diagnoses: Yes Previous Attempt: Yes Previous Psychiatric Hospitalization: Yes Protective Factors Assessment Restorationism Beliefs: No : No Responsible for Young Children: No Employed: No Stable Relationships: No Supportive Family: No Interval History Identifying Information UMBERTO DAMIAN is a 52-year-old man who lives in a [place] [facility] [place] [facility] with a history of schizophrenia, who eloped after returning to his [place] [facility] [place] and was found by police wandering with concern for dehydration due to hot temperatures/humidity. He is on a 304 commitment as of 03/18/2023. Chief Complaint "Had kind of a bad day". Review of Systems Sleep Information Total Hours of Sleep: 8 Sleep Comments: HS Trazadone Meal Information Percent Meal Consumed - Breakfast: 100 Percent Meal Consumed - Lunch: 100 Percent Meal Consumed - Dinner: 100 Nutrition Comment: Ate all of his meal. Subjective Subjective The patient was seen and assessed and interval progress reviewed in a multidisciplinary team meeting with the treatment team. For details, see the "Impression" section. Overall I spent a total of 38 minutes for this inpatient follow-up including review of chart records, direct evaluation of the patient [id number], counseling the patient, risk assessment, discussion during interdisciplinary treatment rounds, and documentation in the electronic health record. Physical Exam Psychiatric Orientation: alert, oriented to person, oriented to place, oriented to time and cooperative Apperance: appropriately dressed and appropriately groomed Eye Contact: good eye contact Motor Behavior: no abnormal motor movements Speech: normal rate/rhythm/volume of speech Affect: euthymic affect and mood congruent with affect Mood: + anxious mood; no depressed mood Thought Process: clear/coherent thought process Thought Content: + paranoid (intermittent) and reality based without delusions (for the most part) Suicidal Thoughts: denies suicidal thoughts, denies suicidal plan and denies suicidal intent Homicidal Thoughts: denies homicidal thoughts Hallucinations: + auditory hallucinations (intermittent) and + visual hallucinations (intermittently seeing people in trenchcoats, falling into a garden) Cognition: recent memory grossly intact, remote memory grossly intact, attention grossly intact and language grossly intact Estimated Intelligence: average estimated intelligence and consistent with education level Insight: + limited insight Judgment: + limited judgement Vital Signs (Past 24 Hours) Last Vital Signs Temp 36.5 C 06/08/23 06:36 Pulse 91 H 06/08/23 06:36 Resp 16 06/08/23 06:36 BP 116/83 06/08/23 06:36 Pulse Ox 99 06/03/23 07:04 O2 Del Method Room Air 06/03/23 07:04 Results & Data ([facility]) Current Inpatient Medications Current Inpatient Medications: Current Inpatient Medications Al Hydrox/Mg Hydrox/Simethicone (Aluminum/Magnesium Susp 30 Ml Udc) 30 ml PO Q4H PRN PRN Reason: GI Upset Stop: 06/09/23 05:14 Hydroxyzine HCl (Hydroxyzine Hcl 25 Mg Tab) 25 mg PO Q4H PRN PRN Reason: Anxiety Stop: 06/09/23 05:09 Last Admin: 06/07/23 03:52 Dose: 25 mg Hydroxyzine HCl (Hydroxyzine Hcl 25 Mg Tab) 50 mg PO HSZ PRN PRN Reason: Insomnia Stop: 06/09/23 05:11 Last Admin: 06/07/23 00:02 Dose: 50 mg Magnesium Hydroxide (Magnesium Hydroxide Susp 30 Ml Udc) 30 ml PO DAILY PRN PRN Reason: Constipation Stop: 06/09/23 05:15 Perphenazine (Perphenazine 4 Mg Tab) 16 mg PO TID JOSEMANUEL Stop: 07/07/23 13:59 Last Admin: 06/08/23 08:51 Dose: 16 mg Trazodone HCl (Trazodone Hcl 100 Mg Tab) 100 mg PO HS JOSEMANUEL Stop: 06/21/23 21:59 Last Admin: 06/07/23 21:09 Dose: 100 mg Venlafaxine HCl (Venlafaxine Hcl Xr 150 Mg Capxr) 150 mg PO QAM JOSEMANUEL Stop: 06/09/23 08:59 Last Admin: 06/08/23 08:52 Dose: 150 mg Mental Health & Subst Abuse Tx Psychiatrist Name of Psychiatrist: Dr. Umberto Aviles Psychiatrist's Psychiatric Appointment Comment: Telehealth Therapist Name of Therapist: Chary Velasquez Therapist's Therapy Appointment Comment: [address] [place] [address] [id number], [place] [address] Post Discharge Appointments Primary Care Physician Name Of Family Doctor/PCP: You Brooks (1) Schizophrenia Schizophrenia type: unspecified Qualified Code(s): F20.9 - Schizophrenia, unspecified
[2023-06-08] MEDS: hydrOXYzine HCl 25 MG TAB PO PRN (17:37)
[2023-06-08] MEDS ORDERED: ACETAMINOPHEN 325 MG TAB PO PRN (18:05)
[2023-06-08] MEDS: PERPHENAZINE 2 MG TAB PO PRN (18:23)
[2023-06-08] MEDS: traZODone HCL 100 MG TAB PO SCH (20:59)
[2023-06-09] MEDS: hydrOXYzine HCl 25 MG TAB PO PRN (04:39)
[2023-06-09] MEDS ORDERED: MAGNESIUM HYDROXIDE SUSP 30 ML UDC PO PRN (05:25)
[2023-06-09] MEDS ORDERED: ALUMINUM/MAGNESIUM SUSP 30 ML UDC PO PRN (05:25)
[2023-06-09] MEDS: PERPHENAZINE 4 MG TAB PO SCH ×3 (08:37→20:34)
[2023-06-09] MEDS: VENLAFAXINE HCL XR 150 MG CAPXR PO SCH (09:40)
--- NOTE | 2023-06-09 13:50 | Psychiatric Progress Note ---
Date of Service June 09, 2023 Impression / Recommendations Impression 52 yo man with schizophrenia with multiple recent psychiatric hospitalizations after each has eloped from his skilled nursing. On 304 commitment and accepted to [facility]. No current bed date. [facility] due to psychosis and limited ability to tolerate peers and hx of aggression with delusions 06/09/2023: Reports he feels "better" (than yesterday afternoon, when the auditory hallucinations worsened. I alluded to command hallucinations and he was quick to clarify "they weren't command hallucinations". He think the PRN perphenazine was "at least" as effective as PRN chlorpromazine had been. Feels sad today after learning he currently no longer has anywhere to go. Discussed the team's continuing concerns about multiple failed attempts at community re- entry prior to this admission, as well as tomorrow's hearing about continuing his commitment. He is considering whether he wants to participate in that. 06/08/2023: Pt had a visit from Joann today during which he learned that they're releasing his room so he wouldn't be able to return there. He says he understands this but is disappointed by it. He reports "the voices have started up again" and he's been hearing critical voices. He denies any visual hallucinations. All of pt's PRN medications , so discussed with him whether he'd prefer to resume the chlorpromazine or use perphenazine for that. He elected the latter. 06/07/2023: Continues to do very well with no recent need to PRN antipsychotics. Staff have been working to identify ways to address his boredom. He looks forward to visit from Joann tomorrow. 06/06/2023: Pt now no longer remembers the most recent time he needed PRN antipsychotic medication. He's spending more time in his room and participating in groups less - says it feels as if he's done them so many times. I spoke with pt about the approaching expiration of his section 304 commitment and that a hearing will likely need to be scheduled this week rather than next. I encouraged him to participate in this one. 06/05/2023: Increasingly frustrated by prolonged hospitalization. Psychosis has been under good control. However, team remain very concerned at his extremely rapid and dangerous relapse after discharge following a similarly long admission elsewhere and attempted community re-entry. His current section 304 commitment expires week after next, and due to holidays it may be necessary to schedule a hearing this week. 06/04/2023: Is starting to voice more irritation at still being hospitalized, which doesn't really seem inappropriate and which he conveys in calm and cooperative ways. No new or worse symptoms. No evidence of significant side effects. 06/03/2023: Is, by most objective measures, doing very well. He's tolerating the current medication regimen with no side effects and has not been requiring PRN antipsychotic. Unsurprisingly, wishes to talk about returning to the skilled nursing where, he reminds me, "all my stuff is still". He notes that he's been able to avoid acting on command hallucinations while here. I reminded him that he'd been at [facility] for about the same duration when he was discharged from there and relapsed very rapidly, and that I'm sure the team there thought he was doing well enough for discharge. He says that he was on different medication then which is certainly true. However, I still believe that the team there was likely pretty confident that discharge was appropriate based on how well he was doing as an inpatient. The multiple failed attempts at community re-entry present compelling evidence that his doing well in the inpatient setting has poor predictive value in terms of how he does in the outpatient setting. 06/02/2023: We have been notified that pt's previous skilled nursing has discharged him and that he can no longer return there, so he no longer has any community placement available. This had already been understood to be the case but a bed had been being held in the unlikely event he were able to return safely. Pt says he's continuing to do well with minimal hallucinosis and no need for PRN antipsychotic. 06/01/2023: Pt says he's happy with elimination of chlorpromazine and says hallucinations are "under good control". He got first of 2 monthly haloperidol decanoate injections today and expects the second one tomorrow. No new or worse symptoms. No side effects reported. 05/31/2023: Team again reviewed our concerns about the substantial risks to pt if he were discharged to the community. He continues to have on average 2 "bad days" roughly every week during which the command auditory hallucinations direct his actions. Here, he requests to go to [facility] because he's worried he might try to elope and end up seriously injured as has happened many times in the past. He reacts to changes in the milieu, which given the large numbers of admissions and discharges is fairly constant though the structured setting mitigates the effect of those changes (which will not be the case in the [facility]). Pt asks if we can go ahead and stop the quetiapine since he thinks the perphenazine is working well to suppress hallucinations. 05/30/2023: Continues to report minimal to no hallucinations and has not required PRN antipsychotic medication for several days. He wants to continue to planned taper of chlorpromazine. 05/29/2023: Reports very good control of hallucinations on current regimen (actually saying he's not experiencing any at all) but remains guarded about the plan of continuing taper of chlorpromazine until he remains on one phenothiazine (perphenazine) along with depot haloperidol. Reviewed this plan (with which he agrees) and the rationale for it. 05/28/23: He is cooperative but typically becomes a bit suspicious toward the end of the his 15-20 min grounds privileges even with staff support. Even when not actively hallucinating seems to misinterpret social cues (eye contact). Tends to be more reclusive to room or require more prns with any fluctuation in the therapeutic milieu. Also in hospital he doesn't have to interact with general public regularly, do his own shopping or meal prep. Team recommendation is that he would continue to decompensate readily outside of the milieu and state hospital placement remains medically necessary. (1) Schizophrenia: Plan 06/09/2023: * continue perphenazine 16 mg TID * continue perphenazine 8 mg Q8H PRN psychosis * continue venlafaxine XR 150 mg daily * continue haloperidol decanoate total of 400 mg HAYES over two days - ordered for 06/01/2023 & 06/02/2023, last received on 06/01/2023 & 05/05/2023 06/08/2023: * continue perphenazine 16 mg TID * start perphenazine 8 mg Q8H PRN psychosis * continue venlafaxine XR 150 mg daily * continue haloperidol decanoate total of 400 mg HAYES over two days - ordered for 06/01/2023 & 06/02/2023, last received on 06/01/2023 & 05/05/2023 06/07/2023: Continue medication regimen as on 06/02/2023 06/06/2023: Continue medication regimen as on 06/02/2023 06/05/2023: Continue medication regimen as on 06/02/2023 06/04/2023: Continue medication regimen as on 06/02/2023 06/03/2023: Continue medication regimen as on 06/02/2023. Pt has been tapered fully from chlorpromazine, remains on perphenazine, and had haloperidol decanoate on 06/01/2023 and 06/02/2023 06/02/2023: * continue perphenazine 16 mg TID * continue venlafaxine XR 150 mg daily * continue haloperidol decanoate total of 400 mg HAYES over two days - last received on 06/01/2023 & 06/02/2023 06/01/2023: * continue perphenazine 16 mg TID * continue venlafaxine XR 150 mg daily * continue haloperidol decanoate total of 400 mg HAYES over two days - ordered for 06/01/2023 & 06/02/2023, last received on 06/01/2023 & 05/05/2023 05/31/2023: * continue perphenazine 16 mg TID * stop chlorpromazine * continue venlafaxine XR 150 mg daily * continue haloperidol decanoate total of 400 mg HAYES over two days - ordered for 06/01/2023 & 06/02/2023, last received on 05/04/2023 & 05/05/2023 05/30/2023: * continue perphenazine 16 mg TID * decrease chlorpromazine to 50 mg QHS with goal of continuing taper until it's eliminated * continue venlafaxine XR 150 mg daily * continue haloperidol decanoate total of 400 mg HAYES over two days - received on 05/04/2023 and 05/05/2023 05/29/2023: * continue perphenazine 16 mg TID * decrease chlorpromazine to 100 mg QHS with goal of continuing taper until it's eliminated * continue venlafaxine XR 150 mg daily * continue haloperidol decanoate total of 400 mg HAYES over two days - received on 05/04/2023 and 05/05/2023 05/28/23: continue current medication and tx plan. Given the patient's length of stay, a general rather than daily summary of interventions from day 1-86 (03/02/23-05/26/23) will follow. Upon admission, the patient's thorazine had to be held and there were attempts to split Haldol dosing given orthostatic hypotension and fall risk with foot fracture. A 304 hearing was held on 03/18/23. Thorazine was reintroduced on 03/17 but did not re sult in any decrease in Haldol dosing. A diversion meeting was held on 03/28/2023. He was cleared by ortho re: use of boot for foot on 04/01/23. He had declined trials of Clozaril and adjunctive depakote but was amenable to Haldol dec to decrease number of overall pills (04/03 & ). He was not able to taper Haldol PO without an increase in his psychotic symptoms. He was started on a trial of Trilafon on 05/04/23 with benefit. 2nd dose of Haldol dec (400 mg total) was given on 05/04 & 05/05. Trilafon was increased again to 16 mg TID on 05/23/23. Inventory Assets Strengths: taking PO meds, cooperative with tx plan. Able to collaborate with treatment providers. Able to discuss past medications and his response to same Needs: longer term hospitalization, medical monitoring Suicide Risk Level Suicide Risk Level: Moderate (q15 min suicide checks) Suicide Risk Level Comments: The patient remains at moderate risk, primarily because of his persistent intermittent persecutory auditory hallucinations. He again reiterates that he is not experiencing suicidal thoughts, does not have any suicidal intent, and has no plan for suicide. He denies any command AH. He also convincingly assures us that he will notify staff if thoughts of self-harm emerge and has been consistently seeking out staff support when he feels overwhelmed by hallucinations. Risk Factors Assessment Male: Yes : Yes Do You Have Access To A Gun?: No Mental Health Diagnoses: Yes Previous Attempt: Yes Previous Psychiatric Hospitalization: Yes Protective Factors Assessment Jewish Beliefs: No : No Responsible for Young Children: No Employed: No Stable Relationships: No Supportive Family: No Interval History Identifying Information UMBERTO DAMIAN is a 52-year-old man who lives in a [place] [facility] skilled nursing with a history of schizophrenia, who eloped after returning to his skilled nursing and was found by police wandering with concern for dehydration due to hot temperatures/humidity. He is on a 304 commitment as of 03/18/2023. Chief Complaint "Better". Review of Systems Sleep Information Total Hours of Sleep: 6.5 Sleep Comments: HS Trazadone Meal Information Percent Meal Consumed - Breakfast: 100 Percent Meal Consumed - Lunch: 100 Percent Meal Consumed - Dinner: 100 Nutrition Comment: Ate all of his meal. Subjective Subjective The patient was seen and assessed and interval progress reviewed in a multi disciplinary team meeting with the treatment team. For details, see the "Impression" section. Overall I spent a total of 39 minutes for this inpatient follow-up including review of chart records, direct evaluation of the patient [id number], counseling the patient, medication education with the patient, risk assessment, discussion during interdisciplinary treatment rounds, and documentation in the electronic health record. Physical Exam Psychiatric Orientation: alert, oriented to person, oriented to place, oriented to time and cooperative Apperance: appropriately dressed and appropriately groomed Eye Contact: good eye contact and + fair eye contact Motor Behavior: no abnormal motor movements Speech: normal rate/rhythm/volume of speech Affect: euthymic affect and mood congruent with affect Mood: + anxious mood; no depressed mood Thought Process: clear/coherent thought process and + concrete thought process Thought Content: + paranoid (intermittent) and reality based without delusions (for the most part) Suicidal Thoughts: denies suicidal thoughts, denies suicidal plan and denies suicidal intent Homicidal Thoughts: denies homicidal thoughts Hallucinations: + auditory hallucinations (intermittent) and + visual hallucinations (intermittently seeing people in trenchcoats, falling into a garden) Cognition: recent memory grossly intact, remote memory grossly intact, attention grossly intact and language grossly intact Estimated Intelligence: average estimated intelligence and consistent with education level Insight: + limited insight Judgment: + limited judgement Vital Signs (Past 24 Hours) Last Vital Signs Temp 36.6 C 06/09/23 06:39 Pulse 88 06/09/23 06:40 Resp 16 06/09/23 06:39 BP 123/91 06/09/23 06:40 Pulse Ox 99 06/03/23 07:04 O2 Del Method Room Air 06/03/23 07:04 The physical exam completed in the emergency room has been accepted for the purposes of medical clearance to the behavioral health unit. Results & Data ([facility]) Current Inpatient Medications Current Inpatient Medications: Current Inpatient Medications Acetaminophen (Acetaminophen 325 Mg Tab) 650 mg PO Q4H PRN PRN Reason: Pain or Fever Stop: 07/08/23 18:04 Al Hydrox/Mg Hydrox/Simethicone (Aluminum/Magnesium Susp 30 Ml Udc) 30 ml PO Q4H PRN PRN Reason: GI Upset Stop: 07/09/23 05:24 Hydroxyzine HCl (Hydroxyzine Hcl 25 Mg Tab) 50 mg PO HSZ PRN PRN Reason: Insomnia Stop: 07/09/23 05:24 Hydroxyzine HCl (Hydroxyzine Hcl 25 Mg Tab) 25 mg PO Q4H PRN PRN Reason: Anxiety Stop: 07/09/23 05:24 Magnesium Hydroxide (Magnesium Hydroxide Susp 30 Ml Udc) 30 ml PO DAILY PRN PRN Reason: Constipation Stop: 07/09/23 05:24 Perphenazine (Perphenazine 4 Mg Tab) 16 mg PO TID JOSEMANUEL Stop: 07/07/23 13:59 Last Admin: 06/09/23 13:30 Dose: 16 mg Perphenazine (Perphenazine 2 Mg Tablet) 8 mg PO Q8 PRN PRN Reason: psychosis Stop: 07/08/23 18:04 Last Admin: 06/08/23 18:23 Dose: 8 mg Trazodone HCl (Trazodone Hcl 100 Mg Tab) 100 mg PO HS JOSEMANUEL Stop: 06/21/23 21:59 Last Admin: 06/08/23 20:59 Dose: 100 mg Venlafaxine HCl (Venlafaxine Hcl Xr 150 Mg Capxr) 150 mg PO QAM JOSEMANUEL Stop: 07/09/23 08:59 Last Admin: 06/09/23 09:40 Dose: 150 mg Mental Health & Subst Abuse Tx Psychiatrist Name of Psychiatrist: Dr. Umberto Aviles Psychiatrist's Psychiatric Appointment Comment: Telehealth Therapist Name of Therapist: Chary Velasquez Therapist's Therapy Appointment Comment: [id number], [place] [id number] Post Discharge Appointments Primary Care Physician Name Of Family Doctor/PCP: You Brooks (1) Schizophrenia Schizophrenia type: unspecified Qualified Code(s): F20.9 - Schizophrenia, unspecified
[2023-06-09] MEDS: traZODone HCL 100 MG TAB PO SCH (20:33)
[2023-06-10] MEDS: hydrOXYzine HCl 25 MG TAB PO PRN (02:45)
[2023-06-10] MEDS: VENLAFAXINE HCL XR 150 MG CAPXR PO SCH (08:37)
[2023-06-10] MEDS: PERPHENAZINE 4 MG TAB PO SCH ×3 (08:37→21:02)
--- NOTE | 2023-06-10 11:17 | Psychiatric Progress Note ---
Date of Service June 10, 2023 Impression / Recommendations Impression 52 yo man with schizophrenia with multiple recent psychiatric hospitalizations after each has eloped from his usp. On 304 commitment and accepted to [facility]. No current bed date. MNPR due to psychosis and limited ability to tolerate peers and hx of aggression with delusions 06/10/2023: Pt remains pleasant and cooperative, though he is unhappy about the hearing to extend his commitment. He believes he can safely be discharged, even though he now has noplace to live following discharge. Other than the PRN perphenazine he got 2 days ago after learning his room had been released, he has not required any PRN medication. Pt's section 305 hearing for extended commitment was held at 1300. He participated in that hearing and was present in the room with me while I testified on speakerphone. His commitment was extended. 06/09/2023: Reports he feels "better" (than yesterday afternoon, when the auditory hallucinations worsened. I alluded to command hallucinations and he was quick to clarify "they weren't command hallucinations". He think the PRN perphenazine was "at least" as effective as PRN chlorpromazine had been. Feels sad today after learning he currently no longer has anywhere to go. Discussed the team's continuing concerns about multiple failed attempts at community re- entry prior to this admission, as well as tomorrow's hearing about continuing his commitment. He is considering whether he wants to participate in that. 06/08/2023: Pt had a visit from Joann today during which he learned that they're releasing his room so he wouldn't be able to return there. He says he u nderstands this but is disappointed by it. He reports "the voices have started up again" and he's been hearing critical voices. He denies any visual hallucinations. All of pt's PRN medications , so discussed with him whether he'd prefer to resume the chlorpromazine or use perphenazine for that. He elected the latter. 06/07/2023: Continues to do very well with no recent need to PRN antipsychotics. Staff have been working to identify ways to address his boredom. He looks forward to visit from Joann tomorrow. 06/06/2023: Pt now no longer remembers the most recent time he needed PRN anti psychotic medication. He's spending more time in his room and participating in groups less - says it feels as if he's done them so many times. I spoke with pt about the approaching expiration of his section 304 commitment and that a hearing will likely need to be scheduled this week rather than next. I encouraged him to participate in this one. 06/05/2023: Increasingly frustrated by prolonged hospitalization. Psychosis has been under good control. However, team remain very concerned at his extremely rapid and dangerous relapse after discharge following a similarly long admission elsewhere and attempted community re-entry. His current section 304 commitment expires week after next, and due to holidays it may be necessary to schedule a hearing this week. 06/04/2023: Is starting to voice more irritation at still being hospitalized, which doesn't really seem inappropriate and which he conveys in calm and cooperative ways. No new or worse symptoms. No evidence of significant side effects. 06/03/2023: Is, by most objective measures, doing very well. He's tolerating the current medication regimen with no side effects and has not been requiring PRN antipsychotic. Unsurprisingly, wishes to talk about returning to the usp where, he reminds me, "all my stuff is still". He notes that he's been able to avoid acting on command hallucinations while here. I reminded him that he'd been at [facility] for about the same duration when he was discharged from there and relapsed very rapidly, and that I'm sure the team there thought he was doing well enough for discharge. He says that he was on different medication then which is certainly true. However, I still believe that the team there was likely pretty confident that discharge was appropriate based on how well he was doing as an inpatient. The multiple failed attempts at community re-entry present compelling evidence that his doing well in the inpatient setting has poor predictive value in terms of how he does in the outpatient setting. 06/02/2023: We have been notified that pt's previous usp has discharged him and that he can no longer return there, so he no longer has any community pl acement available. This had already been understood to be the case but a bed had been being held in the unlikely event he were able to return safely. Pt says he's continuing to do well with minimal hallucinosis and no need for PRN antipsychotic. 06/01/2023: Pt says he's happy with elimination of chlorpromazine and says hallucinations are "under good control". He got first of 2 monthly haloperidol decanoate injections today and expects the second one tomorrow. No new or worse symptoms. No side effects reported. 05/31/2023: Team again reviewed our concerns about the substantial risks to pt if he were discharged to the community. He continues to have on average 2 "bad days" roughly every week during which the command auditory hallucinations direct his actions. Here, he requests to go to [facility] because he's worried he might try to elope and end up seriously injured as has happened many times in the past. He reacts to changes in the milieu, which given the large numbers of admissions and discharges is fairly constant though the structured setting mitigates the effect of those changes (which will not be the case in the community). Pt asks if we can go ahead and stop the quetiapine since he thinks the perphenazine is working well to suppress hallucinations. 05/30/2023: Continues to report minimal to no hallucinations and has not required PRN antipsychotic medication for several days. He wants to continue to planned taper of chlorpromazine. 05/29/2023: Reports very good control of hallucinations on current regimen (actually saying he's not experiencing any at all) but remains guarded about the plan of continuing taper of chlorpromazine until he remains on one phenothiazine (perphenazine) along with depot haloperidol. Reviewed this plan (with which he agrees) and the rationale for it. 05/28/23: He is cooperative but typically becomes a bit suspicious toward the end of the his 15-20 min grounds privileges even with staff support. Even when not actively hallucinating seems to misinterpret social cues (eye contact). Tends to be more reclusive to room or require more prns with any fluctuation in the therapeutic milieu. Also in hospital he doesn't have to interact with general public regularly, do his own shopping or meal prep. Team recommendation is that he would continue to decompensate readily outside of the milieu and state hospital placement remains medically necessary. (1) Schizophrenia: Plan 06/10/2023: continue medication regimen as on 06/08/2023 06/09/2023: * continue perphenazine 16 mg TID * continue perphenazine 8 mg Q8H PRN psychosis * continue venlafaxine XR 150 mg daily * continue haloperidol decanoate total of 400 mg HAYES over two days - ordered for 06/01/2023 & 06/02/2023, last received on 06/01/2023 & 05/05/2023 06/08/2023: * continue perphenazine 16 mg TID * start perphenazine 8 mg Q8H PRN psychosis * continue venlafaxine XR 150 mg daily * continue haloperidol decanoate total of 400 mg HAYES over two days - ordered for 06/01/2023 & 06/02/2023, last received on 06/01/2023 & 05/05/2023 06/07/2023: Continue medication regimen as on 06/02/2023 06/06/2023: Continue medication regimen as on 06/02/2023 06/05/2023: Continue medication regimen as on 06/02/2023 06/04/2023: Continue medication regimen as on 06/02/2023 06/03/2023: Continue medication regimen as on 06/02/2023. Pt has been tapered fully from chlorpromazine, remains on perphenazine, and had haloperidol decanoate on 06/01/2023 and 06/02/2023 06/02/2023: * continue perphenazine 16 mg TID * continue venlafaxine XR 150 mg daily * continue haloperidol decanoate total of 400 mg HAYES over two days - last received on 06/01/2023 & 06/02/2023 06/01/2023: * continue perphenazine 16 mg TID * continue venlafaxine XR 150 mg daily * continue haloperidol decanoate total of 400 mg HAYES over two days - ordered for 06/01/2023 & 06/02/2023, last received on 06/01/2023 & 05/05/2023 05/31/2023: * continue perphenazine 16 mg TID * stop chlorpromazine * continue venlafaxine XR 150 mg daily * continue haloperidol decanoate total of 400 mg HAYES over two days - ordered for 06/01/2023 & 06/02/2023, last received on 05/04/2023 & 05/05/2023 05/30/2023: * continue perphenazine 16 mg TID * decrease chlorpromazine to 50 mg QHS with goal of continuing taper until it's eliminated * continue venlafaxine XR 150 mg daily * continue haloperidol decanoate total of 400 mg HAYES over two days - received on 05/04/2023 and 05/05/2023 05/29/2023: * continue perphenazine 16 mg TID * decrease chlorpromazine to 100 mg QHS with goal of continuing taper until it's eliminated * continue venlafaxine XR 150 mg daily * continue haloperidol decanoate total of 400 mg HAYES over two days - received on 05/04/2023 and 05/05/2023 05/28/23: continue current medication and tx plan. Given the patient's length of stay, a general rather than daily summary of interventions from day 1-86 (03/02/23-05/26/23) will follow. Upon admission, the patient's thorazine had to be held and there were attempts to split Haldol dosing given orthostatic hypotension and fall risk with foot fracture. A 304 hearing was held on 03/18/23. Thorazine was reintroduced on 03/17 but did not result in any decrease in Haldol dosing. A diversion meeting was held on 03/28/2023. He was cleared by ortho re: use of boot for foot on 04/01/23. He had declined trials of Clozaril and adjunctive depakote but was amenable to Haldol dec to decrease number of overall pills (04/03 & ). He was not able to taper Haldol PO without an increase in his psychotic symptoms. He was started on a trial of Trilafon on 05/04/23 with benefit. 2nd dose of Haldol dec (400 mg total) was given on 05/04 & 05/05. Trilafon was increased again to 16 mg TID on 05/23/23. Inventory Assets Strengths: taking PO meds, cooperative with tx plan. Able to collaborate with treatment providers. Able to discuss past medications and his response to same Needs: longer term hospitalization, medical monitoring Suicide Risk Level Suicide Risk Level: Moderate (q15 min suicide checks) Suicide Risk Level Comments: The patient remains at moderate risk, primarily because of his persistent intermittent persecutory auditory hallucinations. He again reiterates that he is not experiencing suicidal thoughts, does not have any suicidal intent, and has no plan for suicide. He denies any command AH. He also convincingly assures us that he will notify staff if thoughts of self-harm emerge and has been consistently seeking out staff support when he feels overwhelmed by hallucinations. Risk Factors Assessment Male: Yes : Yes Do You Have Access To A Gun?: No Mental Health Diagnoses: Yes Previous Attempt: Yes Previous Psychiatric Hospitalization: Yes Protective Factors Assessment Worship Beliefs: No : No Responsible for Young Children: No Employed: No Stable Relationships: No Supportive Family: No Interval History Identifying Information UMBERTO DAMIAN is a 52-year-old man who lives in a [place] [facility] us[facility] with a history of schizophrenia, who eloped after returning to his usp and was found by police wandering with concern for dehydration due to hot temperatures/humidity. He is on a 305 commitment as of 06/10/2023. Chief Complaint "I wish I could go". Review of Systems Sleep Information Total Hours of Sleep: 5.75 Sleep Comments: HS Trazodone Meal Information Percent Meal Consumed - Breakfast: 100 Percent Meal Consumed - Lunch: 100 Percent Meal Consumed - Dinner: 100 Nutrition Comment: Ate all of his meal. Subjective Subjective The patient was seen and assessed and interval progress reviewed in a multidisciplinary team meeting with the treatment team. For details, see the "Impression" section. Overall I spent a total of 64 minutes for this inpatient follow-up including review of chart records, direct evaluation of the patient [id number], counseling the patient, risk assessment, discussion during interdisciplinary treatment rounds, testifying at the patient's commitment hearing, and documentation in the electronic health record. Physical Exam Psychiatric Orientation: alert, oriented to person, oriented to place, oriented to time and cooperative Apperance: appropriately dressed and appropriately groomed Eye Contact: good eye contact Motor Behavior: no abnormal motor movements Speech: normal rate/rhythm/volume of speech Affect: euthymic affect and mood congruent with affect Mood: + anxious mood; no depressed mood Thought Process: clear/coherent thought process Thought Content: + paranoid (intermittent) and reality based without delusions (for the most part) Suicidal Thoughts: denies suicidal thoughts, denies suicidal plan and denies suicidal intent Homicidal Thoughts: denies homicidal thoughts Hallucinations: + auditory hallucinations (intermittent) and + visual hallucinations (intermittently seeing people in trenchcoats, falling into a garden) Cognition: recent memory grossly intact, remote memory grossly intact, attention grossly intact and language grossly intact Estimated Intelligence: average estimated intelligence and consistent with education level Insight: + limited insight Judgment: + limited judgement Vital Signs (Past 24 Hours) Last Vital Signs Temp 36.9 C 06/10/23 06:37 Pulse 83 06/10/23 06:37 Resp 16 06/10/23 06:37 BP 134/80 06/10/23 06:37 Pulse Ox 99 06/03/23 07:04 O2 Del Method Room Air 06/03/23 07:04 Results & Data ([facility]) Current Inpatient Medications Current Inpatient Medications: Current Inpatient Medications Acetaminophen (Acetaminophen 325 Mg Tab) 650 mg PO Q4H PRN PRN Reason: Pain or Fever Stop: 07/08/23 18:04 Al Hydrox/Mg Hydrox/Simethicone (Aluminum/Magnesium Susp 30 Ml Udc) 30 ml PO Q4H PRN PRN Reason: GI Upset Stop: 07/09/23 05:24 Hydroxyzine HCl (Hydroxyzine Hcl 25 Mg Tab) 50 mg PO HSZ PRN PRN Reason: Insomnia Stop: 07/09/23 05:24 Last Admin: 06/10/23 02:45 Dose: 50 mg Hydroxyzine HCl (Hydroxyzine Hcl 25 Mg Tab) 25 mg PO Q4H PRN PRN Reason: Anxiety Stop: 07/09/23 05:24 Magnesium Hydroxide (Magnesium Hydroxide Susp 30 Ml Udc) 30 ml PO DAILY PRN PRN Reason: Constipation Stop: 07/09/23 05:24 Perphenazine (Perphenazine 4 Mg Tab) 16 mg PO TID JOSEMANUEL Stop: 07/07/23 13:59 Last Admin: 06/10/23 08:37 Dose: 16 mg Perphenazine (Perphenazine 2 Mg Tablet) 8 mg PO Q8 PRN PRN Reason: psychosis Stop: 07/08/23 18:04 Last Admin: 06/08/23 18:23 Dose: 8 mg Trazodone HCl (Trazodone Hcl 100 Mg Tab) 100 mg PO HS JOSEMANUEL Stop: 06/21/23 21:59 Last Admin: 06/09/23 20:33 Dose: 100 mg Venlafaxine HCl (Venlafaxine Hcl Xr 150 Mg Capxr) 150 mg PO QAM JOSEMANUEL Stop: 07/09/23 08:59 Last Admin: 06/10/23 08:37 Dose: 150 mg Mental Health & Subst Abuse Tx Psychiatrist Name of Psychiatrist: Dr. Umberto Aviles Psychiatrist's Psychiatric Appointment Comment: Telehealth Therapist Name of Therapist: Chary Velasquez Therapist's Therapy Appointment Comment: [address] [place] [id number], [place] [address] Post Discharge Appointments Primary Care Physician Name Of Family Doctor/PCP: You Brooks (1) Schizophrenia Schizophrenia type: unspecified Qualified Code(s): F20.9 - Schizophrenia, unspecified
[2023-06-10] MEDS ORDERED: clonazePAM 0.5 MG TAB PO SCH (14:00)
[2023-06-10] MEDS: traZODone HCL 100 MG TAB PO SCH (21:01)
[2023-06-11] MEDS: hydrOXYzine HCl 25 MG TAB PO PRN (00:35)
--- NOTE | 2023-06-11 07:04 | Psychiatric Progress Note ---
Date of Service June 11, 2023 Impression / Recommendations Impression 52 yo man with schizophrenia with multiple recent psychiatric hospitalizations after each has eloped from his detention. On 304 commitment and accepted to [facility]. No current bed date. MNPR due to psychosis and limited ability to tolerate peers and hx of aggression with delusions 06/11/2023: Pt philosophical about the commitment hearing yesterday and his extended commitment. He reports no new or worse symptoms and has not required any PRN medication. He looks forward to a planned walk outside today. 06/10/2023: Pt remains pleasant and cooperative, though he is unhappy about the hearing to extend his commitment. He believes he can safely be discharged, even though he now has noplace to live following discharge. Other than the PRN perphenazine he got 2 days ago after learning his room had been released, he has not required any PRN medication. Pt's section 305 hearing for extended commitment was held at 1300. He participated in that hearing and was present in the room with me while I te stified on speakerphone. His commitment was extended. 06/09/2023: Reports he feels "better" (than yesterday afternoon, when the auditory hallucinations worsened. I alluded to command hallucinations and he was quick to clarify "they weren't command hallucinations". He think the PRN perphenazine was "at least" as effective as PRN chlorpromazine had been. Feels sad today after learning he currently no longer has anywhere to go. Discussed the team's continuing concerns about multiple failed attempts at community re- entry prior to this admission, as well as tomorrow's hearing about continuing his commitment. He is considering whether he wants to participate in that. 06/08/2023: Pt had a visit from Joann today during which he learned that they're releasing his room so he wouldn't be able to return there. He says he understands this but is disappointed by it. He reports "the voices have started up again" and he's been hearing critical voices. He denies any visual hallucinations. All of pt's PRN medications , so discussed with him whether he'd prefer to resume the chlorpromazine or use perphenazine for that. He elected the latter. 06/07/2023: Continues to do very well with no recent need to PRN antipsychotics. Staff have been working to identify ways to address his boredom. He looks forward to visit from Joann tomorrow. 06/06/2023: Pt now no longer remembers the most recent time he needed PRN antipsychotic medication. He's spending more time in his room and participating in groups less - says it feels as if he's done them so many times. I spoke with pt about the approaching expiration of his section 304 commitment and that a hearing will likely need to be scheduled this week rather than next. I encouraged him to participate in this one. 06/05/2023: Increasingly frustrated by prolonged hospitalization. Psychosis has been under good control. However, team remain very concerned at his extremely rapid and dangerous relapse after discharge following a similarly long admission elsewhere and attempted community re-entry. His current section 304 commitment expires week after next, and due to holidays it may be necessary to schedule a hearing this week. 06/04/2023: Is starting to voice more irritation at still being hospitalized, which doesn't really seem inappropriate and which he conveys in calm and cooperative ways. No new or worse symptoms. No evidence of significant side effects. 06/03/2023: Is, by most objective measures, doing very well. He's tolerating the current medication regimen with no side effects and has not been requiring PRN antipsychotic. Unsurprisingly, wishes to talk about returning to the detention where, he reminds me, "all my stuff is still". He notes that he's been able to avoid acting on command hallucinations while here. I reminded him that he'd been at [facility] for about the same duration when he was discharged from there and relapsed very rapidly, and that I'm sure the team there thought he was doing well enough for discharge. He says that he was on different medication then which is certainly true. However, I still believe that the team there was likely pretty confident that discharge was appropriate based on how well he was doing as an inpatient. The multiple failed attempts at community re-entry present compelling evidence that his doing well in the inpatient setting has poor pre dictive value in terms of how he does in the outpatient setting. 06/02/2023: We have been notified that pt's previous detention has discharged him and that he can no longer return there, so he no longer has any community placement available. This had already been understood to be the case but a bed had been being held in the unlikely event he were able to return safely. Pt says he's continuing to do well with minimal hallucinosis and no need for PRN antipsychotic. 06/01/2023: Pt says he's happy with elimination of chlorpromazine and says hallucinations are "under good control". He got first of 2 monthly haloperidol decanoate injections today and expects the second one tomorrow. No new or worse symptoms. No side effects reported. 05/31/2023: Team again reviewed our concerns about the substantial risks to pt if he were discharged to the community. He continues to have on average 2 "bad days" roughly every week during which the command auditory hallucinations direct his actions. Here, he requests to go to [facility] se[facility] because he's worried he might try to elope and end up seriously injured as has happened many times in the past. He reacts to changes in the milieu, which given the large numbers of admissions and discharges is fairly constant though the structured setting mitigates the effect of those changes (which will not be the case in the community). Pt asks if we can go ahead and stop the quetiapine since he thinks the perphenazine is working well to suppress hallucinations. 05/30/2023: Continues to report minimal to no hallucinations and has not required PRN antipsychotic medication for several days. He wants to continue to planned taper of chlorpromazine. 05/29/2023: Reports very good control of hallucinations on current regimen (actually saying he's not experiencing any at all) but remains guarded about the plan of continuing taper of chlorpromazine until he remains on one phenothiazine (perphenazine) along with depot haloperidol. Reviewed this plan (with which he agrees) and the rationale for it. 05/28/23: He is cooperative but typically becomes a bit suspicious toward the end of the his 15-20 min grounds privileges even with staff support. Even when not actively hallucinating seems to misinterpret social cues (eye contact). Tends to be more reclusive to room or require more prns with any fluctuation in the therapeutic milieu. Also in hospital he doesn't have to interact with general public regularly, do his own shopping or meal prep. Team recommendation is that he would continue to decompensate readily outside of the milieu and state ho spital placement remains medically necessary. (1) Schizophrenia: Plan 06/11/2023: continue medication regimen as on 06/08/2023 06/10/2023: continue medication regimen as on 06/08/2023 06/09/2023: * continue perphenazine 16 mg TID * continue perphenazine 8 mg Q8H PRN psychosis * continue venlafaxine XR 150 mg daily * continue haloperidol decanoate total of 400 mg HAYES over two days - ordered for 06/01/2023 & 06/02/2023, last received on 06/01/2023 & 05/05/2023 06/08/2023: * continue perphenazine 16 mg TID * start perphenazine 8 mg Q8H PRN psychosis * continue venlafaxine XR 150 mg daily * continue haloperidol decanoate total of 400 mg HAYES over two days - ordered for 06/01/2023 & 06/02/2023, last received on 06/01/2023 & 05/05/2023 06/07/2023: Continue medication regimen as on 06/02/2023 06/06/2023: Continue medication regimen as on 06/02/2023 06/05/2023: Continue medication regimen as on 06/02/2023 06/04/2023: Continue medication regimen as on 06/02/2023 06/03/2023: Continue medication regimen as on 06/02/2023. Pt has been tapered fully from chlorpromazine, remains on perphenazine, and had haloperidol decanoate on 06/01/2023 and 06/02/2023 06/02/2023: * continue perphenazine 16 mg TID * continue venlafaxine XR 150 mg daily * continue haloperidol decanoate total of 400 mg HAYES over two days - last received on 06/01/2023 & 06/02/2023 06/01/2023: * continue perphenazine 16 mg TID * continue venlafaxine XR 150 mg daily * continue haloperidol decanoate total of 400 mg HAYES over two days - ordered for 06/01/2023 & 06/02/2023, last received on 06/01/2023 & 05/05/2023 05/31/2023: * continue perphenazine 16 mg TID * stop chlorpromazine * continue venlafaxine XR 150 mg daily * continue haloperidol decanoate total of 400 mg HAYES over two days - ordered for 06/01/2023 & 06/02/2023, last received on 05/04/2023 & 05/05/2023 05/30/2023: * continue perphenazine 16 mg TID * decrease chlorpromazine to 50 mg QHS with goal of continuing taper until it's eliminated * continue venlafaxine XR 150 mg daily * continue haloperidol decanoate total of 400 mg HAYES over two days - received on 05/04/2023 and 05/05/2023 05/29/2023: * continue perphenazine 16 mg TID * decrease chlorpromazine to 100 mg QHS with goal of continuing taper until it's eliminated * continue venlafaxine XR 150 mg daily * continue haloperidol decanoate total of 400 mg HAYES over two days - received on 05/04/2023 and 05/05/2023 05/28/23: continue current medication and tx plan. Given the patient's length of stay, a general rather than daily summary of interventions from day 1-86 (03/02/23-05/26/23) will follow. Upon admission, the patient's thorazine had to be held and there were attempts to split Haldol dosing given orthostatic hypotension and fall risk with foot fracture. A 304 hearing was held on 03/18/23. Thorazine was reintroduced on 03/17 but did not result in any decrease in Haldol dosing. A diversion meeting was held on 03/28/2023. He was cleared by ortho re: use of boot for foot on 04/01/23. He had declined trials of Clozaril and adjunctive depakote but was amenable to Haldol dec to decrease number of overall pills (04/03 & ). He was not able to taper Haldol PO without an increase in his psychotic symptoms. He was started on a trial of Trilafon on 05/04/23 with benefit. 2nd dose of Haldol dec (400 mg total) was given on 05/04 & 05/05. Trilafon was increased again to 16 mg TID on 05/23/23. Inventory Assets Strengths: taking PO meds, cooperative with tx plan. Able to collaborate with treatment providers. Able to discuss past medications and his response to same Needs: longer term hospitalization, medical monitoring Suicide Risk Level Suicide Risk Level: Moderate (q15 min suicide checks) Suicide Risk Level Comments: The patient remains at moderate risk, primarily because of his persistent intermittent persecutory auditory hallucinations. He again reiterates that he is not experiencing suicidal thoughts, does not have any suicidal intent, and has no plan for suicide. He denies any command AH. He also convincingly assures us that he will notify staff if thoughts of self-harm emerge and has been consistently seeking out staff support when he feels overwhelmed by hallucinations. Risk Factors Assessment Male: Yes : Yes Do You Have Access To A Gun?: No Mental Health Diagnoses: Yes Previous Attempt: Yes Previous Psychiatric Hospitalization: Yes Protective Factors Assessment Evangelical Beliefs: No : No Responsible for Young Children: No Employed: No Stable Relationships: No Supportive Family: No Interval History Identifying Information UMBERTO DAMIAN is a 52-year-old man who lives in a [place] psychiatric detention with a history of schizophrenia, who eloped after returning to his detention and was found by police wandering with concern for dehydration due to hot temperatures/humidity. He is on a 305 commitment as of 06/10/2023. Chief Complaint "It's OK". Review of Systems Sleep Information Total Hours of Sleep: 6.75 Sleep Comments: HS Trazodone Meal Information Percent Meal Consumed - Breakfast: 100 Percent Meal Consumed - Lunch: 100 Percent Meal Consumed - Dinner: 100 Nutrition Comment: Ate all of his meal. Subjective Subjective The patient was seen and assessed and interval progress reviewed in a multidisciplinary team meeting with the treatment team. For details, see the "Impression" section. Overall I spent a total of 27 minutes for this inpatient follow-up including review of chart records, direct evaluation of the patient [id number], counseling the patient, risk assessment, discussion during interdisciplinary treatment rounds, and documentation in the electronic health record. Physical Exam Psychiatric Orientation: alert, oriented to person, oriented to place, oriented to time and cooperative Apperance: appropriately dressed and appropriately groomed Eye Contact: good eye contact Motor Behavior: no abnormal motor movements Speech: normal rate/rhythm/volume of speech Affect: euthymic affect and mood congruent with affect Mood: + anxious mood; no depressed mood Thought Process: clear/coherent thought process Thought Content: reality based without delusions (for the most part) Suicidal Thoughts: denies suicidal thoughts, denies suicidal plan and denies suicidal intent Homicidal Thoughts: denies homicidal thoughts Hallucinations: + auditory hallucinations (intermittent) and + visual hallucinations (intermittently seeing people in trenchcoats, falling into a garden) Cognition: recent memory grossly intact, remote memory grossly intact, attention grossly intact and language grossly intact Estimated Intelligence: average estimated intelligence and consistent with education level Insight: + limited insight Judgment: + limited judgement Vital Signs (Past 24 Hours) Last Vital Signs Temp 36.3 C L 06/11/23 06:41 Pulse 80 06/11/23 06:42 Resp 18 06/11/23 06:41 BP 112/67 06/11/23 06:42 Pulse Ox 95 06/11/23 06:41 O2 Del Method Room Air 06/11/23 06:41 Results & Data ([facility]) Current Inpatient Medications Current Inpatient Medications: Current Inpatient Medications Acetaminophen (Acetaminophen 325 Mg Tab) 650 mg PO Q4H PRN PRN Reason: Pain or Fever Stop: 07/08/23 18:04 Al Hydrox/Mg Hydrox/Simethicone (Aluminum/Magnesium Susp 30 Ml Udc) 30 ml PO Q4H PRN PRN Reason: GI Upset Stop: 07/09/23 05:24 Hydroxyzine HCl (Hydroxyzine Hcl 25 Mg Tab) 50 mg PO HSZ PRN PRN Reason: Insomnia Stop: 07/09/23 05:24 Last Admin: 06/11/23 00:35 Dose: 50 mg Hydroxyzine HCl (Hydroxyzine Hcl 25 Mg Tab) 25 mg PO Q4H PRN PRN Reason: Anxiety Stop: 07/09/23 05:24 Magnesium Hydroxide (Magnesium Hydroxide Susp 30 Ml Udc) 30 ml PO DAILY PRN PRN Reason: Constipation Stop: 07/09/23 05:24 Perphenazine (Perphenazine 4 Mg Tab) 16 mg PO TID JOSEMANUEL Stop: 07/07/23 13:59 Last Admin: 06/10/23 21:02 Dose: 16 mg Perphenazine (Perphenazine 2 Mg Tablet) 8 mg PO Q8 PRN PRN Reason: psychosis Stop: 07/08/23 18:04 Last Admin: 06/08/23 18:23 Dose: 8 mg Trazodone HCl (Trazodone Hcl 100 Mg Tab) 100 mg PO HS JOSEMANUEL Stop: 06/21/23 21:59 Last Admin: 06/10/23 21:01 Dose: 100 mg Venlafaxine HCl (Venlafaxine Hcl Xr 150 Mg Capxr) 150 mg PO QAM JOSEMANUEL Stop: 07/09/23 08:59 Last Admin: 06/10/23 08:37 Dose: 150 mg Mental Health & Subst Abuse Tx Psychiatrist Name of Psychiatrist: Dr. Umberto Aviles Psychiatrist's Psychiatric Appointment Comment: Telehealth Therapist Name of Therapist: Chary Velasquez Therapist's Therapy Appointment Comment: [address] [place] [id number] [id number], [place] [address] Post Discharge Appointments Primary Care Physician Name Of Family Doctor/PCP: You rBooks (1) Schizophrenia Schizophrenia type: unspecified Qualified Code(s): F20.9 - Schizophrenia, unspecified
[2023-06-11] MEDS: VENLAFAXINE HCL XR 150 MG CAPXR PO SCH (08:28)
[2023-06-11] MEDS: PERPHENAZINE 4 MG TAB PO SCH ×3 (08:28→21:02)
[2023-06-11] MEDS: PERPHENAZINE 2 MG TAB PO PRN (14:12)
[2023-06-11] MEDS: traZODone HCL 100 MG TAB PO SCH (21:02)
[2023-06-12] MEDS: hydrOXYzine HCl 25 MG TAB PO PRN (03:05)
[2023-06-12] MEDS: VENLAFAXINE HCL XR 150 MG CAPXR PO SCH (09:03)
[2023-06-12] MEDS: PERPHENAZINE 4 MG TAB PO SCH ×3 (09:05→20:29)
--- NOTE | 2023-06-12 11:52 | Psychiatric Progress Note ---
Date of Service June 12, 2023 Impression / Recommendations Impression 52 yo man with schizophrenia with multiple recent psychiatric hospitalizations after each has eloped from his intermediate. On 305 commitment and accepted to [facility]. No current bed date. MNPR due to psychosis and limited ability to tolerate peers and hx of aggression with delusions Impression: stable in therapeutic milieu, would rapidly decompensate outside of hospital Plan: continue current meds and tx plan. (1) Schizophrenia: Inventory Assets Strengths: taking PO meds, cooperative with tx plan. Able to collaborate with treatment providers. Able to discuss past medications and his response to same Needs: longer term hospitalization, medical monitoring Suicide Risk Level Suicide Risk Level: Moderate (q15 min suicide checks) Risk Factors Assessment Male: Yes : Yes Do You Have Access To A Gun?: No Mental Health Diagnoses: Yes Previous Attempt: Yes Previous Psychiatric Hospitalization: Yes Protective Factors Assessment Episcopalian Beliefs: No : No Responsible for Young Children: No Employed: No Stable Relationships: No Supportive Family: No Interval History Identifying Information UMBERTO DAMIAN is a 52-year-old man who lives in a [place] psychiatric intermediate with a history of schizophrenia, who eloped after returning to his intermediate and was found by police wandering with concern for dehydration due to hot temperatures/humidity. He is on a 305 commitment as of 06/10/2023. Chief Complaint "I couldn't do this by myself." referring to his improved health with stable nutrition and support around ADLs. Review of Systems Sleep Information Total Hours of Sleep: 6.45 Sleep Comments: Requested PRN Vistaril at 0300 for sleep Meal Information Percent Meal Consumed - Breakfast: 100 Percent Meal Consumed - Lunch: 100 Percent Meal Consumed - Dinner: 100 Nutrition Comment: Ate all of his meal. Subjective Subjective Patient was seen & assessed and interval progress reviewed with nursing and social work. Patient tolerating unit activities, still awakens most nights around 3 am, typically to urinate but sometimes requests a prn. Physical Exam Psychiatric alert, calm, denies SI/HI/fall. no abnormal motor movements. Vital Signs (Past 24 Hours) Last Vital Signs Temp 36.6 C 06/12/23 06:27 Pulse 89 06/12/23 06:28 Resp 18 06/12/23 06:27 BP 106/78 06/12/23 06:28 Pulse Ox 98 06/12/23 06:27 O2 Del Method Room Air 06/12/23 06:27 Results & Data ([facility]) Current Inpatient Medications Current Inpatient Medications: Current Inpatient Medications Acetaminophen (Acetaminophen 325 Mg Tab) 650 mg PO Q4H PRN PRN Reason: Pain or Fever Stop: 07/08/23 18:04 Al Hydrox/Mg Hydrox/Simethicone (Aluminum/Magnesium Susp 30 Ml Udc) 30 ml PO Q4H PRN PRN Reason: GI Upset Stop: 07/09/23 05:24 Hydroxyzine HCl (Hydroxyzine Hcl 25 Mg Tab) 50 mg PO HSZ PRN PRN Reason: Insomnia Stop: 07/09/23 05:24 Last Admin: 06/11/23 00:35 Dose: 50 mg Hydroxyzine HCl (Hydroxyzine Hcl 25 Mg Tab) 25 mg PO Q4H PRN PRN Reason: Anxiety Stop: 07/09/23 05:24 Last Admin: 06/12/23 03:05 Dose: 25 mg Magnesium Hydroxide (Magnesium Hydroxide Susp 30 Ml Udc) 30 ml PO DAILY PRN PRN Reason: Constipation Stop: 07/09/23 05:24 Perphenazine (Perphenazine 4 Mg Tab) 16 mg PO TID JOSEMANUEL Stop: 07/07/23 13:59 Last Admin: 06/12/23 09:05 Dose: 16 mg Perphenazine (Perphenazine 2 Mg Tablet) 8 mg PO Q8 PRN PRN Reason: psychosis Stop: 07/08/23 18:04 Last Admin: 06/08/23 18:23 Dose: 8 mg Trazodone HCl (Trazodone Hcl 100 Mg Tab) 100 mg PO HS JOSEMANUEL Stop: 06/21/23 21:59 Last Admin: 06/11/23 21:02 Dose: 100 mg Venlafaxine HCl (Venlafaxine Hcl Xr 150 Mg Capxr) 150 mg PO QAM JOSEMANUEL Stop: 07/09/23 08:59 Last Admin: 06/12/23 09:03 Dose: 150 mg Mental Health & Subst Abuse Tx Psychiatrist Name of Psychiatrist: Dr. Umberto Aviles Psychiatrist's Psychiatric Appointment Comment: Telehealth Therapist Name of Therapist: Chary Velasquez Therapist's Therapy Appointment Comment: [address] [place] [id number] [id number] [address] Post Discharge Appointments Primary Care Physician Name Of Family Doctor/PCP: You Brooks (1) Schizophrenia Schizophrenia type: unspecified Qualified Code(s): F20.9 - Schizophrenia, unspecified
[2023-06-12] MEDS: traZODone HCL 100 MG TAB PO SCH (20:29)
[2023-06-13] MEDS: hydrOXYzine HCl 25 MG TAB PO PRN (02:17)
[2023-06-13] MEDS: PERPHENAZINE 4 MG TAB PO SCH ×3 (08:39→21:09)
[2023-06-13] MEDS: VENLAFAXINE HCL XR 150 MG CAPXR PO SCH (08:39)
--- NOTE | 2023-06-13 09:51 | Psychiatric Progress Note ---
Date of Service June 13, 2023 Impression / Recommendations Impression 53 yo man with schizophrenia with multiple psychiatric hospitalizations after each has eloped from his intermediate. [facility]. [facility]. [facility] due to psychosis and limited ability to tolerate peers and hx of aggression with delusions Impression: stable in therapeutic milieu, would rapidly decompensate outside of hospital Plan: continue current meds and tx plan. (1) Schizophrenia: 06/12/2023: Continue medication regimen as on 06/09/2023 Plan 06/11/2023: continue medication regimen as on 06/08/2023 06/10/2023: continue medication regimen as on 06/08/2023 06/09/2023: * continue perphenazine 16 mg TID * continue perphenazine 8 mg Q8H PRN psychosis * continue venlafaxine XR 150 mg daily * continue haloperidol decanoate total of 400 mg HAYES over two days - ordered for 06/01/2023 & 06/02/2023, last received on 06/01/2023 & 05/05/2023 06/08/2023: * continue perphenazine 16 mg TID * start perphenazine 8 mg Q8H PRN psychosis * continue venlafaxine XR 150 mg daily * continue haloperidol decanoate total of 400 mg HAYES over two days - ordered for 06/01/2023 & 06/02/2023, last received on 06/01/2023 & 05/05/2023 06/07/2023: Continue medication regimen as on 06/02/2023 06/06/2023: Continue medication regimen as on 06/02/2023 06/05/2023: Continue medication regimen as on 06/02/2023 06/04/2023: Continue medication regimen as on 06/02/2023 06/03/2023: Continue medication regimen as on 06/02/2023. Pt has been tapered fully from chlorpromazine, remains on perphenazine, and had haloperidol decanoate on 06/01/2023 and 06/02/2023 06/02/2023: * continue perphenazine 16 mg TID * continue venlafaxine XR 150 mg daily * continue haloperidol decanoate total of 400 mg HAYES over two days - last received on 06/01/2023 & 06/02/2023 06/01/2023: * continue perphenazine 16 mg TID * continue venlafaxine XR 150 mg daily * continue haloperidol decanoate total of 400 mg HAYES over two days - ordered for 06/01/2023 & 06/02/2023, last received on 06/01/2023 & 05/05/2023 05/31/2023: * continue perphenazine 16 mg TID * stop chlorpromazine * continue venlafaxine XR 150 mg daily * continue haloperidol decanoate total of 400 mg HAYES over two days - ordered for 06/01/2023 & 06/02/2023, last received on 05/04/2023 & 05/05/2023 05/30/2023: * continue perphenazine 16 mg TID * decrease chlorpromazine to 50 mg QHS with goal of continuing taper until it's eliminated * continue venlafaxine XR 150 mg daily * continue haloperidol decanoate total of 400 mg HAYES over two days - received on 05/04/2023 and 05/05/2023 05/29/2023: * continue perphenazine 16 mg TID * decrease chlorpromazine to 100 mg QHS with goal of continuing taper until it's eliminated * continue venlafaxine XR 150 mg daily * continue haloperidol decanoate total of 400 mg HAYES over two days - received on 05/04/2023 and 05/05/2023 05/28/23: continue current medication and tx plan. Given the patient's length of stay, a general rather than daily summary of interventions from day 1-86 (03/02/23-05/26/23) will follow. Upon admission, the patient's thorazine had to be held and there were attempts to split Haldol dosing given orthostatic hypotension and fall risk with foot fracture. A 304 hearing was held on 03/18/23. Thorazine was reintroduced on 03/17 but did not result in any decrease in Haldol dosing. A diversion meeting was held on . He was cleared by ortho re: use of boot for foot on 04/01/23. He had declined trials of Clozaril and adjunctive depakote but was amenable to Haldol dec to decrease number of overall pills (04/03 & 16). He was not able to taper Haldol PO without an increase in his psychotic symptoms. He was started on a trial of Trilafon on 05/04/23 with benefit. 2nd dose of Haldol dec (400 mg total) was given on 05/04 & 05/05. Trilafon was increased again to 16 mg TID on 05/23/23. Inventory Assets Strengths: taking PO meds, cooperative with tx plan. Able to collaborate with treatment providers. Able to discuss past medications and his response to same Needs: longer term hospitalization, medical monitoring Suicide Risk Level Suicide Risk Level: Moderate (q15 min suicide checks) Suicide Risk Level Comments: The patient remains at moderate risk, primarily because of his persistent intermittent persecutory auditory hallucinations. He again reiterates that he is not experiencing suicidal thoughts, does not have any suicidal intent, and has no plan for suicide. He denies any command AH. He also convincingly assures us that he will notify staff if thoughts of self-harm emerge and has been consistently seeking out staff support when he feels overwhelmed by hallucinations. Risk Factors Assessment Male: Yes : Yes Do You Have Access To A Gun?: No Mental Health Diagnoses: Yes Previous Attempt: Yes Previous Psychiatric Hospitalization: Yes Protective Factors Assessment Anglican Beliefs: No : No Responsible for Young Children: No Employed: No Stable Relationships: No Supportive Family: No Interval History Identifying Information UMBERTO EAGLE is a 53-year-old man who lives in a [place] psychiatric intermediate with a history of schizophrenia, who eloped after returning to his intermediate and was found by police wandering with concern for dehydration due to hot temperatures/humidity. He is on a 305 commitment as of 06/10/2023. Chief Complaint "Doing good. Maybe a little sleepy". Review of Systems Sleep Information Total Hours of Sleep: 6.45 Sleep Comments: Requested RODRICK Locke at 0300 for sleep Meal Information Percent Meal Consumed - Breakfast: 100 Percent Meal Consumed - Lunch: 90 Percent Meal Consumed - Dinner: 100 Nutrition Comment: Ate all of his meal. Subjective Subjective Patient was seen & assessed and interval progress reviewed with nursing. Met individually with Mr. Eagle tomorrow to assess his current mental status, review his treatment plan, and assess his progress towards treatment goals. Mr. Eagle assures me that he is doing "a lot better," and notes that he is experiencing auditory hallucinations substantially less than he had previously. Today, he reports that he is needed hearing voices nor experiencing hallucinations though these have been intermittent. Mr. Eagle also tells me that he is having no thoughts of intentionally causing self injury, and he also reports that he is not having any thoughts of causing physical harm to the person or property of others. He does talk about the fact that he was disappointed to learn that his dad at the [facility] residential program has been filled, or will be filled, by someone else and, at least at this point, he cannot return there following discharge. However, the patient tells me that he understands the decision of [facility], within the context of his history of eloping from there. He is aware of the referral for [facility] placement, but is hoping that some other community placement might still be possible. Also, we discussed the fact that the patient notes that he seems to be awakening most nights at, or around, 3 AM, in order to urinate, and then has trouble falling back to sleep unless he takes a dose of hydroxyzine. Physical Exam Psychiatric Orientation: alert, oriented x 3, oriented to person, oriented to place, oriented to time and cooperative Apperance: appropriately dressed, appropriately groomed and + disheveled Eye Contact: good eye contact and + fair eye contact Motor Behavior: no abnormal motor movements Speech: normal rate/rhythm/volume of speech Affect: euthymic affect, + constricted affect (but with a smile) and mood c ongruent with affect; no depressed affect Mood: no depressed mood Thought Process: clear/coherent thought process Thought Content: + paranoid (intermittent), reality based without delusions (for the most part) and + thought broadcasting Suicidal Thoughts: denies suicidal thoughts, denies suicidal plan and denies suicidal intent Homicidal Thoughts: denies homicidal thoughts Hallucinations: + auditory hallucinations (intermittent) Cognition: recent memory grossly intact, remote memory grossly intact, attention grossly intact and language grossly intact Estimated Intelligence: consistent with education level Insight: + limited insight Judgment: + limited judgement Vital Signs (Past 24 Hours) Last Vital Signs Temp 36.5 C 06/13/23 06:37 Pulse 72 06/13/23 06:38 Resp 16 06/13/23 06:37 BP 127/83 06/13/23 06:38 Pulse Ox 98 06/12/23 06:27 O2 Del Method Room Air 06/12/23 06:27 The physical exam completed in the emergency room has been accepted for the purposes of medical clearance to the behavioral health unit. Results & Data ([facility]) Current Inpatient Medications Current Inpatient Medications: Current Inpatient Medications Acetaminophen (Acetaminophen 325 Mg Tab) 650 mg PO Q4H PRN PRN Reason: Pain or Fever Stop: 07/08/23 18:04 Al Hydrox/Mg Hydrox/Simethicone (Aluminum/Magnesium Susp 30 Ml Udc) 30 ml PO Q4H PRN PRN Reason: GI Upset Stop: 07/09/23 05:24 Hydroxyzine HCl (Hydroxyzine Hcl 25 Mg Tab) 50 mg PO HSZ PRN PRN Reason: Insomnia Stop: 07/09/23 05:24 Last Admin: 06/13/23 02:17 Dose: 50 mg Hydroxyzine HCl (Hydroxyzine Hcl 25 Mg Tab) 25 mg PO Q4H PRN PRN Reason: Anxiety Stop: 07/09/23 05:24 Last Admin: 06/12/23 03:05 Dose: 25 mg Magnesium Hydroxide (Magnesium Hydroxide Susp 30 Ml Udc) 30 ml PO DAILY PRN PRN Reason: Constipation Stop: 07/09/23 05:24 Perphenazine (Perphenazine 4 Mg Tab) 16 mg PO TID JOSEMANUEL Stop: 07/07/23 13:59 Last Admin: 06/13/23 08:39 Dose: 16 mg Perphenazine (Perphenazine 2 Mg Tablet) 8 mg PO Q8 PRN PRN Reason: psychosis Stop: 07/08/23 18:04 Last Admin: 06/08/23 18:23 Dose: 8 mg Trazodone HCl (Trazodone Hcl 100 Mg Tab) 100 mg PO HS JOSEMANUEL Stop: 06/21/23 21:59 Last Admin: 06/12/23 20:29 Dose: 100 mg Venlafaxine HCl (Venlafaxine Hcl Xr 150 Mg Capxr) 150 mg PO QAM JOSEMANUEL Stop: 07/09/23 08:59 Last Admin: 06/13/23 08:39 Dose: 150 mg Mental Health & Subst Abuse Tx Psychiatrist Name of Psychiatrist: Dr. Umberto Aviles Psychiatrist's Psychiatric Appointment Comment: Telehealth Therapist Name of Therapist: Chary Velasquez Therapist's Therapy Appointment Comment: [address], [place] [address] Post Discharge Appointments Primary Care Physician Name Of Family Doctor/PCP: You Brooks (1) Schizophrenia Schizophrenia type: unspecified Qualified Code(s): F20.9 - Schizophrenia, unspecified
[2023-06-13] MEDS: PERPHENAZINE 2 MG TAB PO PRN ×2 (17:30→18:05)
[2023-06-13] MEDS: traZODone HCL 100 MG TAB PO SCH (21:09)
[2023-06-14] MEDS: PERPHENAZINE 4 MG TAB PO SCH ×3 (08:32→20:52)
[2023-06-14] MEDS: VENLAFAXINE HCL XR 150 MG CAPXR PO SCH (08:33)
--- NOTE | 2023-06-14 17:04 | Psychiatric Progress Note ---
Date of Service June 14, 2023 Impression / Recommendations Impression 53 yo man with schizophrenia with multiple psychiatric hospitalizations after each has eloped from his fci. On 305 commitment and accepted [facility]. No current bed date. [facility] due to psychosis and limited ability to tolerate peers and hx of aggression with delusions Impression: stable in therapeutic milieu, would rapidly decompensate outside of hospital Plan: continue current meds and tx plan. (1) Schizophrenia: 06/14/24: The patient was to be Katrina Clark. He does indicate that he experienced persecutory auditory hallucinations in the middle of the night, but responded quickly to a dose of perphenazine. He notes today that those auditory hallucinations resolved, and that he was able to sleep the rest of the night and ended up having approximately 9 hours of sleep, combined. The plan is to continue his current medication regimen, as documented on 06/09/2023. 06/13/2023: Continue medication regimen as on 06/09/2023 Present on Admission?: Yes Plan 06/14/23: The patient reports breakthrough auditory hallucinations in the middle of the night last night, but these resolved with a as needed dose of perphenazine. The plan is to continue his current medication regimen as on 06/09/2023. 06/13/24: Continue Medication Regimen as on 06/09/23 06/11/2023: continue medication regimen as on 06/08/2023 06/10/2023: continue medication regimen as on 06/08/2023 06/09/2023: * continue perphenazine 16 mg TID * continue perphenazine 8 mg Q8H PRN psychosis * continue venlafaxine XR 150 mg daily * continue haloperidol decanoate total of 400 mg HAYES over two days - ordered for 06/01/2023 & 06/02/2023, last received on 06/01/2023 & 05/05/2023 06/08/2023: * continue perphenazine 16 mg TID * start perphenazine 8 mg Q8H PRN psychosis * continue venlafaxine XR 150 mg daily * continue haloperidol decanoate total of 400 mg HAYES over two days - ordered for 06/01/2023 & 06/02/2023, last received on 06/01/2023 & 05/05/2023 06/07/2023: Continue medication regimen as on 06/02/2023 06/06/2023: Continue medication regimen as on 06/02/2023 06/05/2023: Continue medication regimen as on 06/02/2023 06/04/2023: Continue medication regimen as on 06/02/2023 06/03/2023: Continue medication regimen as on 06/02/2023. Pt has been tapered fully from chlorpromazine, remains on perphenazine, and had haloperidol decanoate on 06/01/2023 and 06/02/2023 06/02/2023: * continue perphenazine 16 mg TID * continue venlafaxine XR 150 mg daily * continue haloperidol decanoate total of 400 mg HAYES over two days - last received on 06/01/2023 & 06/02/2023 06/01/2023: * continue perphenazine 16 mg TID * continue venlafaxine XR 150 mg daily * continue haloperidol decanoate total of 400 mg HAYES over two days - ordered for 06/01/2023 & 06/02/2023, last received on 06/01/2023 & 05/05/2023 05/31/2023: * continue perphenazine 16 mg TID * stop chlorpromazine * continue venlafaxine XR 150 mg daily * continue haloperidol decanoate total of 400 mg HAYES over two days - ordered for 06/01/2023 & 06/02/2023, last received on 05/04/2023 & 05/05/2023 05/30/2023: * continue perphenazine 16 mg TID * decrease chlorpromazine to 50 mg QHS with goal of continuing taper until it's eliminated * continue venlafaxine XR 150 mg daily * continue haloperidol decanoate total of 400 mg HAYES over two days - received on 05/04/2023 and 05/05/2023 05/29/2023: * continue perphenazine 16 mg TID * decrease chlorpromazine to 100 mg QHS with goal of continuing taper until it's eliminated * continue venlafaxine XR 150 mg daily * continue haloperidol decanoate total of 400 mg HAYES over two days - received on 05/04/2023 and 05/05/2023 05/28/23: continue current medication and tx plan. Given the patient's length of stay, a general rather than daily summary of interventions from day 1-86 (03/02/23-05/26/23) will follow. Upon admission, the patient's thorazine had to be held and there were attempts to split Haldol dosing given orthostatic hypotension and fall risk with foot fracture. A 304 hearing was held on 03/18/23. Thorazine was reintroduced on 03/17 but did not result in any decrease in Haldol dosing. A diversion meeting was held on 03/28/2023. He was cleared by ortho re: use of boot for foot on 04/01/23. He had declined trials of Clozaril and adjunctive depakote but was amenable to Haldol dec to decrease number of overall pills (04/03 & ). He was not able to taper Haldol PO without an increase in his psychotic symptoms. He was started on a trial of Trilafon on 05/04/23 with benefit. 2nd dose of Haldol dec (400 mg total) was given on 05/04 & 05/05. Trilafon was increased again to 16 mg TID on 05/23/23. Inventory Assets Strengths: taking PO meds, cooperative with tx plan. Able to collaborate with treatment providers. Able to discuss past medications and his response to same Needs: longer term hospitalization, medical monitoring Suicide Risk Level Suicide Risk Level: Moderate (q15 min suicide checks) Suicide Risk Level Comments: The patient remains at moderate risk, primarily because of his persistent intermittent persecutory auditory hallucinations. He again reiterates that he is not experiencing suicidal thoughts, does not have any suicidal intent, and has no plan for suicide. He denies any command AH. He also convincingly assures us that he will notify staff if thoughts of self-harm emerge and has been consistently seeking out staff support when he feels overwhelmed by hallucinations. Risk Factors Assessment Male: Yes : Yes Do You Have Access To A Gun?: No Mental Health Diagnoses: Yes Previous Attempt: Yes Previous Psychiatric Hospitalization: Yes Protective Factors Assessment Catholic Beliefs: No : No Responsible for Young Children: No Employed: No Stable Relationships: No Supportive Family: No Interval History Identifying Information UMBERTO DAMIAN is a 53-year-old man who lives in a [facility] home with a history of schizophrenia, who eloped after returning to his fci and was found by police wandering with concern for dehydration due to hot temperatures/humidity. He is on a 305 commitment as of 06/10/2023. Chief Complaint "Some voices last night, but I am fine today.". Review of Systems Sleep Information Total Hours of Sleep: 9 Sleep Comments: Pt has scheduled Trazadone Meal Information Percent Meal Consumed - Breakfast: 100 Percent Meal Consumed - Lunch: 100 Percent Meal Consumed - Dinner: 100 Nutrition Comment: Ate all of his meal. Subjective Subjective Patient was seen & assessed and interval progress reviewed with nursing and social work. We also reviewed the patient's medical record, and met with him individually in order to assess his response to treatment, make any necessary changes to his treatment plan, and formally assess his mental status. The patient told me that last time that he had awakened and was starting to hear persecutory auditory hallucinations. He alerted staff, received a as needed dose of perphenazine, responded very quickly, and then slept the rest of the night. He notes that this morning he is feeling "good," and notes no further auditory hallucinations. He remains fairly active in the milieu, but avoids one of his peers because because he finds her to be annoying and intrusive. Physical Exam Mental Examination Appearance: Unkempt Eye Contact: Maintains Eye Contact Motor Behavior: Unremarkable (No abnormal involuntary movements.) Speech: Normal and Soft Mood: Calm Affect: Calm, Elated and Suspicious Thought Process: Circumstantial, Poverty of Content and Slowed Thinking Insight: Poor Judgement: Poor Psychiatric Orientation: alert, oriented x 3, oriented to person, oriented to place, oriented to time and cooperative Apperance: appropriately dressed, appropriately groomed and + disheveled Eye Contact: good eye contact and + fair eye contact Motor Behavior: no abnormal motor movements Speech: normal rate/rhythm/volume of speech Affect: euthymic affect, + anxious affect, + blunted affect, + constricted affect (but with a smile) and mood congruent with affect; no depressed affect Mood: + anxious mood; no depressed mood Thought Process: clear/coherent thought process, + looseness of associations and + concrete thought process Thought Content: + paranoid (intermittent), reality based without delusions (for the most part), + delusions, + thought broadcasting and + persecution Suicidal Thoughts: denies suicidal thoughts, denies suicidal plan and denies suicidal intent Homicidal Thoughts: denies homicidal thoughts Hallucinations: + auditory hallucinations (intermittent) and + visual hallucinations (intermittently seeing people in trenchcoats, falling into a garden) Cognition: recent memory grossly intact, remote memory grossly intact, attention grossly intact and language grossly intact Estimated Intelligence: average estimated intelligence and consistent with education level Insight: + limited insight Judgment: + limited judgement Vital Signs (Past 24 Hours) Last Vital Signs Temp 36.5 C 06/14/23 06:33 Pulse 72 06/14/23 06:34 Resp 16 06/14/23 06:33 BP 123/81 06/14/23 06:34 Pulse Ox 98 06/12/23 06:27 O2 Del Method Room Air 06/12/23 06:27 The physical exam completed in the emergency room has been accepted for the purposes of medical clearance to the behavioral health unit. Constitutional WD/WN, vitals as above Cardiovascular Extremities: normal capillary refill Skin no rashes, warm and dry Results & Data ([facility]) Current Inpatient Medications Current Inpatient Medications: Current Inpatient Medications Acetaminophen (Acetaminophen 325 Mg Tab) 650 mg PO Q4H PRN PRN Reason: Pain or Fever Stop: 07/08/23 18:04 Al Hydrox/Mg Hydrox/Simethicone (Aluminum/Magnesium Susp 30 Ml Udc) 30 ml PO Q4H PRN PRN Reason: GI Upset Stop: 07/09/23 05:24 Hydroxyzine HCl (Hydroxyzine Hcl 25 Mg Tab) 50 mg PO HSZ PRN PRN Reason: Insomnia Stop: 07/09/23 05:24 Last Admin: 06/13/23 02:17 Dose: 50 mg Hydroxyzine HCl (Hydroxyzine Hcl 25 Mg Tab) 25 mg PO Q4H PRN PRN Reason: Anxiety Stop: 07/09/23 05:24 Last Admin: 06/12/23 03:05 Dose: 25 mg Magnesium Hydroxide (Magnesium Hydroxide Susp 30 Ml Udc) 30 ml PO DAILY PRN PRN Reason: Constipation Stop: 07/09/23 05:24 Perphenazine (Perphenazine 4 Mg Tab) 16 mg PO TID JOSEMANUEL Stop: 07/07/23 13:59 Last Admin: 06/14/23 13:36 Dose: 16 mg Perphenazine (Perphenazine 2 Mg Tablet) 8 mg PO Q8 PRN PRN Reason: psychosis Stop: 07/08/23 18:04 Last Admin: 06/13/23 18:05 Dose: 4 mg Trazodone HCl (Trazodone Hcl 100 Mg Tab) 100 mg PO HS JOSEMANUEL Stop: 06/21/23 21:59 Last Admin: 06/13/23 21:09 Dose: 100 mg Venlafaxine HCl (Venlafaxine Hcl Xr 150 Mg Capxr) 150 mg PO QAM JOSEMANUEL Stop: 07/09/23 08:59 Last Admin: 06/14/23 08:33 Dose: 150 mg Mental Health & Subst Abuse Tx Psychiatrist Name of Psychiatrist: Dr. Umberto Aviles Psychiatrist's Psychiatric Appointment Comment: Telehealth Therapist Name of Therapist: Chary Velasquez Therapist's Therapy Appointment Comment: [address] [place] [id number] [address], [place] [address] Post Discharge Appointments Primary Care Physician Name Of Family Doctor/PCP: You Brooks (1) Schizophrenia Schizophrenia type: unspecified Qualified Code(s): F20.9 - Schizophrenia, unspecified
[2023-06-14] MEDS: PERPHENAZINE 2 MG TAB PO PRN (18:26)
[2023-06-14] MEDS: traZODone HCL 100 MG TAB PO SCH (20:52)
[2023-06-15] MEDS: PERPHENAZINE 4 MG TAB PO SCH ×3 (08:45→20:56)
[2023-06-15] MEDS: VENLAFAXINE HCL XR 150 MG CAPXR PO SCH (08:45)
--- NOTE | 2023-06-15 10:16 | Psychiatric Progress Note ---
Date of Service June 15, 2023 Impression / Recommendations Impression 53 yo man with schizophrenia with multiple psychiatric hospitalizations after each has eloped from his correction. On [facility] commitment [facility]. [facility] bed date. [facility] due to psychosis and limited ability to tolerate peers and hx of aggression with delusions 06/15/23: Impression: stable in therapeutic milieu, would rapidly decompensate outside of hospital 06/15/23 Plan: continue current meds and tx plan. (1) Schizophrenia: Inventory Assets Strengths: taking PO meds, cooperative with tx plan. Able to collaborate with treatment providers. Able to discuss past medications and his response to same Needs: longer term hospitalization, medical monitoring Suicide Risk Level Suicide Risk Level: Moderate (q15 min suicide checks) Risk Factors Assessment Male: Yes : Yes Do You Have Access To A Gun?: No Mental Health Diagnoses: Yes Previous Attempt: Yes Previous Psychiatric Hospitalization: Yes Protective Factors Assessment Church Beliefs: No : No Responsible for Young Children: No Employed: No Stable Relationships: No Supportive Family: No Interval History Identifying Information UMBERTO DAMIAN is a 53-year-old man who lives in a [place] psychiatric correction with a history of schizophrenia, who eloped after returning to his correction and was found by police wandering with concern for dehydration due to hot temperatures/humidity. He is on a 305 commitment as of 06/10/2023. Chief Complaint awaiting placement Review of Systems Sleep Information Total Hours of Sleep: 7.25 Sleep Comments: Pt has scheduled Trazadone Meal Information Percent Meal Consumed - Breakfast: 100 Percent Meal Consumed - Lunch: 100 Percent Meal Consumed - Dinner: 100 Nutrition Comment: Ate all of his meal. Subjective Subjective Patient was seen & assessed and interval progress reviewed with treatment team. continues to express gratitude for staff support. same pattern of awakening at night with some breathrough fall and received prn perphenazine, typically with changes in millieu. Physical Exam Psychiatric alert, cooperative, no fall, no del expressed, thoughts organized, no abnormal motor movements. Vital Signs (Past 24 Hours) Last Vital Signs Temp 36.6 C 06/15/23 06:37 Pulse 91 H 06/15/23 06:37 Resp 16 06/15/23 06:37 BP 125/82 06/15/23 06:37 Pulse Ox 98 06/12/23 06:27 O2 Del Method Room Air 06/12/23 06:27 Results & Data ([facility]) Current Inpatient Medications Current Inpatient Medications: Current Inpatient Medications Acetaminophen (Acetaminophen 325 Mg Tab) 650 mg PO Q4H PRN PRN Reason: Pain or Fever Stop: 07/08/23 18:04 Al Hydrox/Mg Hydrox/Simethicone (Aluminum/Magnesium Susp 30 Ml Udc) 30 ml PO Q4H PRN PRN Reason: GI Upset Stop: 07/09/23 05:24 Hydroxyzine HCl (Hydroxyzine Hcl 25 Mg Tab) 50 mg PO HSZ PRN PRN Reason: Insomnia Stop: 07/09/23 05:24 Last Admin: 06/13/23 02:17 Dose: 50 mg Hydroxyzine HCl (Hydroxyzine Hcl 25 Mg Tab) 25 mg PO Q4H PRN PRN Reason: Anxiety Stop: 07/09/23 05:24 Last Admin: 06/12/23 03:05 Dose: 25 mg Magnesium Hydroxide (Magnesium Hydroxide Susp 30 Ml Udc) 30 ml PO DAILY PRN PRN Reason: Constipation Stop: 07/09/23 05:24 Perphenazine (Perphenazine 4 Mg Tab) 16 mg PO TID JOSEMANUEL Stop: 07/07/23 13:59 Last Admin: 06/15/23 08:45 Dose: 16 mg Perphenazine (Perphenazine 2 Mg Tablet) 8 mg PO Q8 PRN PRN Reason: psychosis Stop: 07/08/23 18:04 Last Admin: 06/14/23 18:26 Dose: 8 mg Trazodone HCl (Trazodone Hcl 100 Mg Tab) 100 mg PO HS JOSEMANUEL Stop: 06/21/23 21:59 Last Admin: 06/14/23 20:52 Dose: 100 mg Venlafaxine HCl (Venlafaxine Hcl Xr 150 Mg Capxr) 150 mg PO QAM JOSEMANUEL Stop: 07/09/23 08:59 Last Admin: 06/15/23 08:45 Dose: 150 mg Mental Health & Subst Abuse Tx Psychiatrist Name of Psychiatrist: Dr. Umberto Aviles Psychiatrist's Psychiatric Appointment Comment: Telehealth Therapist Name of Therapist: Chary Velasquez Therapist's Therapy Appointment Comment: [address] [place] [address] [address], [place] [address] Post Discharge Appointments Primary Care Physician Name Of Family Doctor/PCP: You Brooks (1) Schizophrenia Schizophrenia type: unspecified Qualified Code(s): F20.9 - Schizophrenia, unspecified
[2023-06-15] MEDS: traZODone HCL 100 MG TAB PO SCH (20:56)
[2023-06-16] MEDS: hydrOXYzine HCl 25 MG TAB PO PRN (02:14)
[2023-06-16] MEDS: VENLAFAXINE HCL XR 150 MG CAPXR PO SCH (08:49)
[2023-06-16] MEDS: PERPHENAZINE 4 MG TAB PO SCH ×3 (08:49→20:27)
--- NOTE | 2023-06-16 11:18 | Psychiatric Progress Note ---
Date of Service June 16, 2023 Impression / Recommendations Impression 53 yo man with schizophrenia with multiple psychiatric hospitalizations after each has eloped from his [facility]. On 305 commitment [facility]. No current bed date. [facility] due to psychosis and limited ability to tolerate peers and hx of aggression with delusions 06/16/23: Impression: stable in therapeutic milieu, would rapidly decompensate outside of hospital 06/16/23 Plan: continue current meds and tx plan. Last Haldol dec given 05/31/23. (1) Schizophrenia: Inventory Assets Strengths: taking PO meds, cooperative with tx plan. Able to collaborate with treatment providers. Able to discuss past medications and his response to same Needs: longer term hospitalization, medical monitoring Suicide Risk Level Suicide Risk Level: Moderate (q15 min suicide checks) Risk Factors Assessment Male: Yes : Yes Do You Have Access To A Gun?: No Mental Health Diagnoses: Yes Previous Attempt: Yes Previous Psychiatric Hospitalization: Yes Protective Factors Assessment Bahai Beliefs: No : No Responsible for Young Children: No Employed: No Stable Relationships: No Supportive Family: No Interval History Identifying Information UMBERTO DAMIAN is a 53-year-old man who lives in a [place] [facility] with a history of schizophrenia, who eloped after returning to his [facility] and was found by police wandering with concern for dehydration due to hot temperatures/humidity. He is on a 305 commitment as of 06/10/2023. Chief Complaint minimal sleep disturbance Review of Systems Sleep Information Total Hours of Sleep: 5.75 Sleep Comments: Pt has scheduled Trazadone Meal Information Percent Meal Consumed - Breakfast: 100 Percent Meal Consumed - Lunch: 100 Percent Meal Consumed - Dinner: 100 Nutrition Comment: Ate all of his meal. Subjective Subjective Patient was seen & assessed and interval progress reviewed with treatment team. No acute issues overnight. Physical Exam Psychiatric alert, cooperative, speech normal, thoughts organized, no SI/HI/fall at this time Vital Signs (Past 24 Hours) Last Vital Signs Temp 36.6 C 06/16/23 06:31 Pulse 69 06/16/23 06:32 Resp 16 06/16/23 06:31 BP 122/83 06/16/23 06:32 Pulse Ox 98 06/12/23 06:27 O2 Del Method Room Air 06/12/23 06:27 [facility] & Data [facility] Current Inpatient Medications Current Inpatient Medications: Current Inpatient Medications Acetaminophen (Acetaminophen 325 Mg Tab) 650 mg PO Q4H PRN PRN Reason: Pain or Fever Stop: 07/08/23 18:04 Al Hydrox/Mg Hydrox/Simethicone (Aluminum/Magnesium Susp 30 Ml Udc) 30 ml PO Q4H PRN PRN Reason: GI Upset Stop: 07/09/23 05:24 Hydroxyzine HCl (Hydroxyzine Hcl 25 Mg Tab) 50 mg PO HSZ PRN PRN Reason: Insomnia Stop: 07/09/23 05:24 Last Admin: 06/16/23 02:14 Dose: 50 mg Hydroxyzine HCl (Hydroxyzine Hcl 25 Mg Tab) 25 mg PO Q4H PRN PRN Reason: Anxiety Stop: 07/09/23 05:24 Last Admin: 06/12/23 03:05 Dose: 25 mg Magnesium Hydroxide (Magnesium Hydroxide Susp 30 Ml Udc) 30 ml PO DAILY PRN PRN Reason: Constipation Stop: 07/09/23 05:24 Perphenazine (Perphenazine 4 Mg Tab) 16 mg PO TID JOSEMANUEL Stop: 07/07/23 13:59 Last Admin: 06/16/23 08:49 Dose: 16 mg Perphenazine (Perphenazine 2 Mg Tablet) 8 mg PO Q8 PRN PRN Reason: psychosis Stop: 07/08/23 18:04 Last Admin: 06/14/23 18:26 Dose: 8 mg Trazodone HCl (Trazodone Hcl 100 Mg Tab) 100 mg PO HS JOSEMANUEL Stop: 06/21/23 21:59 Last Admin: 06/15/23 20:56 Dose: 100 mg Venlafaxine HCl (Venlafaxine Hcl Xr 150 Mg Capxr) 150 mg PO QAM JOSEMANUEL Stop: 07/09/23 08:59 Last Admin: 06/16/23 08:49 Dose: 150 mg Mental Health & Subst Abuse Tx Psychiatrist Name of Psychiatrist: Dr. Umberto Aviles Psychiatrist's Psychiatric Appointment Comment: Telehealth Therapist Name of Therapist: Chary Velasquez Therapist's Therapy Appointment Comment: [address] [place] [address] [address], [place] [address] Post Discharge Appointments Primary Care Physician Name Of Family Doctor/PCP: You Brooks (1) Schizophrenia Schizophrenia type: unspecified Qualified Code(s): F20.9 - Schizophrenia, unspecified
[2023-06-16] MEDS: traZODone HCL 100 MG TAB PO SCH (20:27)
[2023-06-17] MEDS: hydrOXYzine HCl 25 MG TAB PO PRN (02:48)
[2023-06-17] MEDS: VENLAFAXINE HCL XR 150 MG CAPXR PO SCH (08:37)
[2023-06-17] MEDS: PERPHENAZINE 4 MG TAB PO SCH ×3 (08:37→20:52)
--- NOTE | 2023-06-17 11:10 | Psychiatric Progress Note ---
Date of Service June 17, 2023 Impression / Recommendations Impression 53 yo man with schizophrenia with multiple psychiatric hospitalizations after each has eloped from his shelter. On 305 commitment [facility]. No current bed date. [facility] due to psychosis and limited ability to tolerate peers and hx of aggression with delusions 06/17/23: Impression: stable in therapeutic milieu, would rapidly decompensate outside of hospital; ongoing intermittent aud fall 06/17/23 Plan: continue current meds and tx plan. Last Haldol dec given 05/31/23. (1) Schizophrenia: Inventory Assets Strengths: taking PO meds, cooperative with tx plan. Able to collaborate with treatment providers. Able to discuss past medications and his response to same Needs: longer term hospitalization, medical monitoring Suicide Risk Level Suicide Risk Level: Moderate (q15 min suicide checks) Risk Factors Assessment Male: Yes : Yes Do You Have Access To A Gun?: No Mental Health Diagnoses: Yes Previous Attempt: Yes Previous Psychiatric Hospitalization: Yes Protective Factors Assessment Amish Beliefs: No : No Responsible for Young Children: No Employed: No Stable Relationships: No Supportive Family: No Interval History Identifying Information UMBERTO DAMIAN is a 53-year-old man who lives in a [place] [facility] with a history of schizophrenia, who eloped after returning to his shelter and was found by police wandering with concern for dehydration due to hot temperatures/humidity. He is on a 305 commitment as of 06/10/2023. Chief Complaint intermittent auditory fall Review of Systems Sleep Information Total Hours of Sleep: 7 Sleep Comments: Pt asked for PRN Vistaril Meal Information Percent Meal Consumed - Breakfast: 100 Percent Meal Consumed - Lunch: 100 Percent Meal Consumed - Dinner: 100 Nutrition Comment: Ate all of his meal. Subjective Subjective Patient was seen & assessed and interval progress reviewed with nursing and social work. Some breakthrough fall last pm but did not take a prn other than overnight Vistaril for sleep. Physical Exam Psychiatric alert, cooperative, social with peer, more reactive affect, no SI/HI/fall/del at this time. Vital Signs (Past 24 Hours) Last Vital Signs Temp 36.3 C L 06/17/23 06:00 Pulse 96 H 06/17/23 06:24 Resp 16 06/17/23 06:00 BP 107/75 06/17/23 06:24 Pulse Ox 98 06/12/23 06:27 O2 Del Method Room Air 06/12/23 06:27 Results & Data (U) Current Inpatient Medications Current Inpatient Medications: Current Inpatient Medications Acetaminophen (Acetaminophen 325 Mg Tab) 650 mg PO Q4H PRN PRN Reason: Pain or Fever Stop: 07/08/23 18:04 Al Hydrox/Mg Hydrox/Simethicone (Aluminum/Magnesium Susp 30 Ml Udc) 30 ml PO Q4H PRN PRN Reason: GI Upset Stop: 07/09/23 05:24 Hydroxyzine HCl (Hydroxyzine Hcl 25 Mg Tab) 50 mg PO HSZ PRN PRN Reason: Insomnia Stop: 07/09/23 05:24 Last Admin: 06/17/23 02:48 Dose: 50 mg Hydroxyzine HCl (Hydroxyzine Hcl 25 Mg Tab) 25 mg PO Q4H PRN PRN Reason: Anxiety Stop: 07/09/23 05:24 Last Admin: 06/12/23 03:05 Dose: 25 mg Magnesium Hydroxide (Magnesium Hydroxide Susp 30 Ml Udc) 30 ml PO DAILY PRN PRN Reason: Constipation Stop: 07/09/23 05:24 Perphenazine (Perphenazine 4 Mg Tab) 16 mg PO TID JOSEMANUEL Stop: 07/07/23 13:59 Last Admin: 06/17/23 08:37 Dose: 16 mg Perphenazine (Perphenazine 2 Mg Tablet) 8 mg PO Q8 PRN PRN Reason: psychosis Stop: 07/08/23 18:04 Last Admin: 06/14/23 18:26 Dose: 8 mg Trazodone HCl (Trazodone Hcl 100 Mg Tab) 100 mg PO HS JOSEMANUEL Stop: 06/21/23 21:59 Last Admin: 06/16/23 20:27 Dose: 100 mg Venlafaxine HCl (Venlafaxine Hcl Xr 150 Mg Capxr) 150 mg PO QAM JOSEMANUEL Stop: 07/09/23 08:59 Last Admin: 06/17/23 08:37 Dose: 150 mg Mental Health & Subst Abuse Tx Psychiatrist Name of Psychiatrist: Dr. Umberto Aviles Psychiatrist's Psychiatric Appointment Comment: Telehealth Therapist Name of Therapist: Chary Velasquez Therapist's Therapy Appointment Comment: [address] [place] [address] [address], [place] [address] Post Discharge Appointments Primary Care Physician Name Of Family Doctor/PCP: You Brooks (1) Schizophrenia Schizophrenia type: unspecified Qualified Code(s): F20.9 - Schizophrenia, unspecified
[2023-06-17] MEDS: PERPHENAZINE 2 MG TAB PO PRN (13:53)
[2023-06-17] MEDS: traZODone HCL 100 MG TAB PO SCH (20:53)
[2023-06-18] MEDS: hydrOXYzine HCl 25 MG TAB PO PRN (04:23)
[2023-06-18] MEDS: PERPHENAZINE 4 MG TAB PO SCH ×3 (08:40→21:06)
[2023-06-18] MEDS: VENLAFAXINE HCL XR 150 MG CAPXR PO SCH (08:40)
--- NOTE | 2023-06-18 12:10 | Psychiatric Progress Note ---
Date of Service June 18, 2023 Impression / Recommendations Impression 53 yo man with schizophrenia with multiple psychiatric hospitalizations after each has eloped from his [facility]. On [facility] commitment [facility]. No current bed date. [facility] due to psychosis and limited ability to tolerate peers and hx of aggression with delusions 06/18/23: Impression: stable in therapeutic milieu, would rapidly decompensate outside of hospital; ongoing intermittent aud fall 06/18/23 Plan: continue current meds and tx plan. Last Haldol dec given 05/31/23. Podiatry consult with Dr. Gael choudhary (1) Schizophrenia: Inventory Assets Strengths: taking PO meds, cooperative with tx plan. Able to collaborate with treatment providers. Able to discuss past medications and his response to same Needs: longer term hospitalization, medical monitoring Suicide Risk Level Suicide Risk Level: Moderate (q15 min suicide checks) Suicide Risk Level Comments: The patient remains at moderate risk, primarily because of his persistent intermittent persecutory auditory hallucinations. He again reiterates that he is not experiencing suicidal thoughts, does not have any suicidal intent, and has no plan for suicide. He denies any command AH. He also convincingly assures us that he will notify staff if thoughts of self-harm emerge and has been consistently seeking out staff support when he feels overwhelmed by hallucinations. Risk Factors Assessment Male: Yes : Yes Do You Have Access To A Gun?: No Mental Health Diagnoses: Yes Previous Attempt: Yes Previous Psychiatric Hospitalization: Yes Protective Factors Assessment Shinto Beliefs: No : No Responsible for Young Children: No Employed: No Stable Relationships: No Supportive Family: No Interval History Identifying Information UMBERTO DAMIAN is a 53-year-old man who lives in a [place] [facility] with a history of schizophrenia, who eloped after returning to his [facility] and was found by police wandering with concern for dehydration due to hot temperatures/humidity. He is on a 305 commitment as of 06/10/2023. Chief Complaint awaiting placement Review of Systems Sleep Information Total Hours of Sleep: 7.30 Sleep Comments: Pt requested PRN Vistaril at 0424 Meal Information Percent Meal Consumed - Breakfast: 100 Percent Meal Consumed - Lunch: 100 Percent Meal Consumed - Dinner: 100 Nutrition Comment: Ate all of his meal. Subjective Subjective Patient was seen & assessed and interval progress reviewed with treatment team. no acute issues overnight. remains in need of nail care, spoke with med staff office as currently podiatry on staff/available for consultation. Physical Exam Psychiatric alert, cooperative, calm, anticipating therapeutic time outside. no SI/HI/fall/del. Vital Signs (Past 24 Hours) Last Vital Signs Temp 36.1 C L 06/18/23 06:00 Pulse 80 06/18/23 06:37 Resp 16 06/18/23 06:00 BP 113/88 06/18/23 06:37 Pulse Ox 98 06/12/23 06:27 O2 Del Method Room Air 06/12/23 06:27 Results & Data ([facility]) Current Inpatient Medications Current Inpatient Medications: Current Inpatient Medications Acetaminophen (Acetaminophen 325 Mg Tab) 650 mg PO Q4H PRN PRN Reason: Pain or Fever Stop: 07/08/23 18:04 Al Hydrox/Mg Hydrox/Simethicone (Aluminum/Magnesium Susp 30 Ml Udc) 30 ml PO Q4H PRN PRN Reason: GI Upset Stop: 07/09/23 05:24 Hydroxyzine HCl (Hydroxyzine Hcl 25 Mg Tab) 50 mg PO HSZ PRN PRN Reason: Insomnia Stop: 07/09/23 05:24 Last Admin: 06/17/23 02:48 Dose: 50 mg Hydroxyzine HCl (Hydroxyzine Hcl 25 Mg Tab) 25 mg PO Q4H PRN PRN Reason: Anxiety Stop: 07/09/23 05:24 Last Admin: 06/18/23 04:23 Dose: 25 mg Magnesium Hydroxide (Magnesium Hydroxide Susp 30 Ml Udc) 30 ml PO DAILY PRN PRN Reason: Constipation Stop: 07/09/23 05:24 Perphenazine (Perphenazine 4 Mg Tab) 16 mg PO TID JOSEMANUEL Stop: 07/07/23 13:59 Last Admin: 06/18/23 08:40 Dose: 16 mg Perphenazine (Perphenazine 2 Mg Tablet) 8 mg PO Q8 PRN PRN Reason: psychosis Stop: 07/08/23 18:04 Last Admin: 06/14/23 18:26 Dose: 8 mg Trazodone HCl (Trazodone Hcl 100 Mg Tab) 100 mg PO HS JOSEMANUEL Stop: 06/21/23 21:59 Last Admin: 06/17/23 20:53 Dose: 100 mg Venlafaxine HCl (Venlafaxine Hcl Xr 150 Mg Capxr) 150 mg PO QAM JOSEMANUEL Stop: 07/09/23 08:59 Last Admin: 06/18/23 08:40 Dose: 150 mg Mental Health & Subst Abuse Tx Psychiatrist Name of Psychiatrist: Dr. Umberto Aviles Psychiatrist's Psychiatric Appointment Comment: Telehealth Therapist Name of Therapist: Chary Velasquez Therapist's Therapy Appointment Comment: [address] [place] [address] [address], [place] [address] Post Discharge Appointments Primary Care Physician Name Of Family Doctor/PCP: You Brooks (1) Schizophrenia Schizophrenia type: unspecified Qualified Code(s): F20.9 - Schizophrenia, unspecified
[2023-06-18] MEDS: traZODone HCL 100 MG TAB PO SCH (21:07)
[2023-06-19] MEDS: hydrOXYzine HCl 25 MG TAB PO PRN (02:21)
[2023-06-19] MEDS: VENLAFAXINE HCL XR 150 MG CAPXR PO SCH (08:55)
[2023-06-19] MEDS: PERPHENAZINE 4 MG TAB PO SCH ×3 (08:55→20:41)
--- NOTE | 2023-06-19 10:04 | Psychiatric Progress Note ---
Date of Service June 19, 2023 Impression / Recommendations Impression 53 yo man with schizophrenia with multiple psychiatric hospitalizations after each has eloped from his alf. [facility]. [facility] bed [facility]. [facility] due to psychosis and limited ability to tolerate peers and hx of aggression with delusions 06/19/2023: I had previously told pt of my plan to be near his hometown in [place] over [place], which he asked me about today. He voices concern that he "didn't get a shot over [place]", referring to haloperidol decanoate. I reassured him that he has not missed a dose. He continues to experience auditory and occasionally visual hallucinations. While in the structured setting of the unit, he is able not to follow hallucinated commands. Requires PRN antipsychotic infrequently. 06/18/23: Impression: stable in therapeutic milieu, would rapidly decompensate outside of hospital; ongoing intermittent aud fall 06/18/23 Plan: continue current meds and tx plan. Last Haldol dec given 05/31/23. Podiatry consult with Dr. Gael choudhary (1) Schizophrenia: Plan 06/19/2023: * continue perphenazine 16 mg TID * continue perphenazine 8 mg Q8H PRN psychosis * continue venlafaxine XR 150 mg daily * continue haloperidol decanoate total of 400 mg HAYES over two days - last received 06/01/2023 & 06/02/2023 06/14/23: The patient reports breakthrough auditory hallucinations in the middle of the night last night, but these resolved with a as needed dose of perphenazine. The plan is to continue his current medication regimen as on 06/09/2023. 06/13/24: Continue Medication Regimen as on 06/09/23 06/11/2023: continue medication regimen as on 06/08/2023 06/10/2023: continue medication regimen as on 06/08/2023 06/09/2023: * continue perphenazine 16 mg TID * continue perphenazine 8 mg Q8H PRN psychosis * continue venlafaxine XR 150 mg daily * continue haloperidol decanoate total of 400 mg HAYES over two days - last received 06/01/2023 & 06/02/2023 06/08/2023: * continue perphenazine 16 mg TID * start perphenazine 8 mg Q8H PRN psychosis * continue venlafaxine XR 150 mg daily * continue haloperidol decanoate total of 400 mg HAYES over two days - ordered for 06/01/2023 & 06/02/2023, last received on 06/01/2023 & 05/05/2023 06/07/2023: Continue medication regimen as on 06/02/2023 06/06/2023: Continue medication regimen as on 06/02/2023 06/05/2023: Continue medication regimen as on 06/02/2023 06/04/2023: Continue medication regimen as on 06/02/2023 06/03/2023: Continue medication regimen as on 06/02/2023. Pt has been tapered fully from chlorpromazine, remains on perphenazine, and had haloperidol decanoate on 06/01/2023 and 06/02/2023 06/02/2023: * continue perphenazine 16 mg TID * continue venlafaxine XR 150 mg daily * continue haloperidol decanoate total of 400 mg HAYES over two days - last received on 06/01/2023 & 06/02/2023 06/01/2023: * continue perphenazine 16 mg TID * continue venlafaxine XR 150 mg daily * continue haloperidol decanoate total of 400 mg HAYES over two days - ordered for 06/01/2023 & 06/02/2023, last received on 06/01/2023 & 05/05/2023 05/31/2023: * continue perphenazine 16 mg TID * stop chlorpromazine * continue venlafaxine XR 150 mg daily * continue haloperidol decanoate total of 400 mg HAYES over two days - ordered for 06/01/2023 & 06/02/2023, last received on 05/04/2023 & 05/05/2023 05/30/2023: * continue perphenazine 16 mg TID * decrease chlorpromazine to 50 mg QHS with goal of continuing taper until it's eliminated * continue venlafaxine XR 150 mg daily * continue haloperidol decanoate total of 400 mg HAYES over two days - received on 05/04/2023 and 05/05/2023 05/29/2023: * continue perphenazine 16 mg TID * decrease chlorpromazine to 100 mg QHS with goal of continuing taper until it's eliminated * continue venlafaxine XR 150 mg daily * continue haloperidol decanoate total of 400 mg HAYES over two days - received on 05/04/2023 and 05/05/2023 05/28/23: continue current medication and tx plan. Given the patient's length of stay, a general rather than daily summary of interventions from day 1-86 (03/02/23-05/26/23) will follow. Upon admission, the patient's thorazine had to be held and there were attempts to split Haldol dosin g given orthostatic hypotension and fall risk with foot fracture. A 304 hearing was held on 03/18/23. Thorazine was reintroduced on 03/17 but did not result in any decrease in Haldol dosing. A diversion meeting was held on 03/28/2023. He was cleared by ortho re: use of boot for foot on 04/01/23. He had declined trials of Clozaril and adjunctive depakote but was amenable to Haldol dec to decrease number of overall pills (04/03 & 16). He was not able to taper Haldol PO without an increase in his psychotic symptoms. He was started on a trial of Trilafon on 05/04/23 with benefit. 2nd dose of Haldol dec (400 mg total) was given on 05/04 & 05/05. Trilafon was increased again to 16 mg TID on 05/23/23. Inventory Assets Strengths: taking PO meds, cooperative with tx plan. Able to collaborate with treatment providers. Able to discuss past medications and his response to same Needs: longer term hospitalization, medical monitoring Suicide Risk Level Suicide Risk Level: Moderate (q15 min suicide checks) Suicide Risk Level Comments: The patient remains at moderate risk, primarily because of his persistent intermittent persecutory auditory hallucinations. He again reiterates that he is not experiencing suicidal thoughts, does not have any suicidal intent, and has no plan for suicide. He denies any command AH. He also convincingly assures us that he will notify staff if thoughts of self-harm emerge and has been consistently seeking out staff support when he feels overwhelmed by hallucinations. Risk Factors Assessment Male: Yes : Yes Do You Have Access To A Gun?: No Mental Health Diagnoses: Yes Previous Attempt: Yes Previous Psychiatric Hospitalization: Yes Protective Factors Assessment Anglican Beliefs: No : No Responsible for Young Children: No Employed: No Stable Relationships: No Supportive Family: No Interval History Identifying Information UMBERTO DAMIAN is a 53-year-old man who lived in a [place] psychiatric alf with a history of schizophrenia, who eloped after returning to his alf and was found by police wandering with concern for dehydration due to hot temperatures/humidity and who turned out to have multiple fractures. He is on a 305 commitment as of 06/10/2023. Chief Complaint "How was your [place]? Did you go by [place]?". Review of Systems Sleep Information Total Hours of Sleep: 6.25 Sleep Comments: Pt requested PRN Vistaril at 0424 Meal Information Percent Meal Consumed - Breakfast: 100 Percent Meal Consumed - Lunch: 100 Percent Meal Consumed - Dinner: 100 Nutrition Comment: Ate all of his meal. Subjective Subjective The patient was seen and assessed and interval progress reviewed in a multidisciplinary team meeting with the treatment team. For details, see the "Impression" section. Overall I spent a total of 36 minutes for this inpatient follow-up including review of chart records, direct evaluation of the patient [id number], counseling the patient, risk assessment, discussion during interdisciplinary treatment rounds, and documentation in the electronic health record. Physical Exam Psychiatric Orientation: alert, oriented to person, oriented to place, oriented to time and cooperative Apperance: appropriately dressed and appropriately groomed Eye Contact: good eye contact Motor Behavior: no abnormal motor movements Speech: normal rate/rhythm/volume of speech Affect: euthymic affect and mood congruent with affect Mood: no depressed mood Thought Process: clear/coherent thought process Thought Content: + paranoid (intermittent) and reality based without delusions (for the most part) Suicidal Thoughts: denies suicidal thoughts, denies suicidal plan and denies suicidal intent Homicidal Thoughts: denies homicidal thoughts Hallucinations: + auditory hallucinations (intermittent) and + visual hallucinations (intermittently seeing people in trenchcoats, falling into a garden) Cognition: recent memory grossly intact, remote memory grossly intact, attention grossly intact and language grossly intact Estimated Intelligence: average estimated intelligence and consistent with education level Insight: + limited insight Judgment: + limited judgement Vital Signs (Past 24 Hours) Last Vital Signs Temp 36.9 C 06/19/23 06:32 Pulse 80 06/19/23 06:32 Resp 16 06/19/23 06:32 BP 104/71 06/19/23 06:32 Pulse Ox 98 06/12/23 06:27 O2 Del Method Room Air 06/12/23 06:27 The physical exam completed in the emergency room has been accepted for the purposes of medical clearance to the behavioral health unit. Results & Data ([facility]) Current Inpatient Medications Current Inpatient Medications: Current Inpatient Medications Acetaminophen (Acetaminophen 325 Mg Tab) 650 mg PO Q4H PRN PRN Reason: Pain or Fever Stop: 07/08/23 18:04 Al Hydrox/Mg Hydrox/Simethicone (Aluminum/Magnesium Susp 30 Ml Udc) 30 ml PO Q4H PRN PRN Reason: GI Upset Stop: 07/09/23 05:24 Hydroxyzine HCl (Hydroxyzine Hcl 25 Mg Tab) 50 mg PO HSZ PRN PRN Reason: Insomnia Stop: 07/09/23 05:24 Last Admin: 06/19/23 02:21 Dose: 50 mg Hydroxyzine HCl (Hydroxyzine Hcl 25 Mg Tab) 25 mg PO Q4H PRN PRN Reason: Anxiety Stop: 07/09/23 05:24 Last Admin: 06/18/23 04:23 Dose: 25 mg Magnesium Hydroxide (Magnesium Hydroxide Susp 30 Ml Udc) 30 ml PO DAILY PRN PRN Reason: Constipation Stop: 07/09/23 05:24 Perphenazine (Perphenazine 4 Mg Tab) 16 mg PO TID JOSEMANUEL Stop: 07/07/23 13:59 Last Admin: 06/19/23 08:55 Dose: 16 mg Perphenazine (Perphenazine 2 Mg Tablet) 8 mg PO Q8 PRN PRN Reason: psychosis Stop: 07/08/23 18:04 Last Admin: 06/14/23 18:26 Dose: 8 mg Trazodone HCl (Trazodone Hcl 100 Mg Tab) 100 mg PO HS JOSEMANUEL Stop: 06/21/23 21:59 Last Admin: 06/18/23 21:07 Dose: 100 mg Venlafaxine HCl (Venlafaxine Hcl Xr 150 Mg Capxr) 150 mg PO QAM JOSEMANUEL Stop: 07/09/23 08:59 Last Admin: 06/19/23 08:55 Dose: 150 mg Mental Health & Subst Abuse Tx Psychiatrist Name of Psychiatrist: Dr. Umberto Aviles Psychiatrist's Psychiatric Appointment Comment: Telehealth Therapist Name of Therapist: Chary Velasquez Therapist's Therapy Appointment Comment: [address] [place], [place] [id number], [place] [address] Post Discharge Appointments Primary Care Physician Name Of Family Doctor/PCP: You - Dr. Brooks (1) Schizophrenia Schizophrenia type: unspecified Qualified Code(s): F20.9 - Schizophrenia, unspecified
[2023-06-19] MEDS: traZODone HCL 100 MG TAB PO SCH (20:41)
[2023-06-20] MEDS: hydrOXYzine HCl 25 MG TAB PO PRN (02:26)
[2023-06-20] MEDS: PERPHENAZINE 4 MG TAB PO SCH ×3 (08:47→20:19)
[2023-06-20] MEDS: VENLAFAXINE HCL XR 150 MG CAPXR PO SCH (08:47)
--- NOTE | 2023-06-20 10:49 | Psychiatric Progress Note ---
Date of Service June 20, 2023 Impression / Recommendations Impression 53 yo man with schizophrenia with multiple psychiatric hospitalizations after each has eloped from his usp. On 305 commitment and accepted to [facility]. No current bed date. MNPR due to psychosis and limited ability to tolerate peers and hx of aggression with delusions 06/20/2023: Pt reports continuing to do "pretty well" in terms of hallucinosis, which has been fairly minimal. He asked about reducing haloperidol dose due to "feeling maybe a little tired". I pointed out that this is not very practical given his use of depot form but that the perphenazine dose could be adjusted easily. I also pointed out that his dyskinetic leg movements seem more noticeable today. He is not at all bothered by, nor very aware of, the dykinesia. He does not want to adjust the perphenazine dose at this time "because things get really bad when the voices are louder" and he doesn't want to risk that. 06/19/2023: I had previously told pt of my plan to be near his hometown in [place] over , which he asked me about today. He voices concern that he "didn't get a shot over [place]", referring to haloperidol decanoate. I reassured him that he has not missed a dose. He continues to experience auditory and occasionally visual hallucinations. While in the structured setting of the unit, he is able not to follow hallucinated commands. Requires PRN antipsychotic infrequently. 06/18/23: Impression: stable in therapeutic milieu, would rapidly decompensate outside of hospital; ongoing intermittent aud fall 06/18/23 Plan: continue current meds and tx plan. Last Haldol dec given 05/31/23. Podiatry consult with Dr. Gael choudhary (1) Schizophrenia: Plan 06/20/2023: continue regimen as on 06/19/2023. 06/19/2023: * continue perphenazine 16 mg TID * continue perphenazine 8 mg Q8H PRN psychosis * continue venlafaxine XR 150 mg daily * continue haloperidol decanoate total of 400 mg HAYES over two days - last received 06/01/2023 & 06/02/2023 06/14/23: The patient reports breakthrough auditory hallucinations in the middle of the night last night, but these resolved with a as needed dose of perphenazine. The plan is to continue his current medication regimen as on 06/09/2023. 06/13/24: Continue Medication Regimen as on 06/09/23 06/11/2023: continue medication regimen as on 06/08/2023 06/10/2023: continue medication regimen as on 06/08/2023 06/09/2023: * continue perphenazine 16 mg TID * continue perphenazine 8 mg Q8H PRN psychosis * continue venlafaxine XR 150 mg daily * continue haloperidol decanoate total of 400 mg HAYES over two days - last received 06/01/2023 & 06/02/2023 06/08/2023: * continue perphenazine 16 mg TID * start perphenazine 8 mg Q8H PRN psychosis * continue venlafaxine XR 150 mg daily * continue haloperidol decanoate total of 400 mg HAYES over two days - ordered for 06/01/2023 & 06/02/2023, last received on 06/01/2023 & 05/05/2023 06/07/2023: Continue medication regimen as on 06/02/2023 06/06/2023: Continue medication regimen as on 06/02/2023 06/05/2023: Continue medication regimen as on 06/02/2023 06/04/2023: Continue medication regimen as on 06/02/2023 06/03/2023: Continue medication regimen as on 06/02/2023. Pt has been tapered fully from chlorpromazine, remains on perphenazine, and had haloperidol decanoate on 06/01/2023 and 06/02/2023 06/02/2023: * continue perphenazine 16 mg TID * continue venlafaxine XR 150 mg daily * continue haloperidol decanoate total of 400 mg HAYES over two days - last received on 06/01/2023 & 06/02/2023 06/01/2023: * continue perphenazine 16 mg TID * continue venlafaxine XR 150 mg daily * continue haloperidol decanoate total of 400 mg HAYES over two days - ordered for 06/01/2023 & 06/02/2023, last received on 06/01/2023 & 05/05/2023 05/31/2023: * continue perphenazine 16 mg TID * stop chlorpromazine * continue venlafaxine XR 150 mg daily * continue haloperidol decanoate total of 400 mg HAYES over two days - ordered for 06/01/2023 & 06/02/2023, last received on 05/04/2023 & 05/05/2023 05/30/2023: * continue perphenazine 16 mg TID * decrease chlorpromazine to 50 mg QHS with goal of continuing taper until it's eliminated * continue venlafaxine XR 150 mg daily * continue haloperidol decanoate total of 400 mg HAYES over two days - received on 05/04/2023 and 05/05/2023 05/29/2023: * continue perphenazine 16 mg TID * decrease chlorpromazine to 100 mg QHS with goal of continuing taper until it's eliminated * continue venlafaxine XR 150 mg daily * continue haloperidol decanoate total of 400 mg HAYES over two days - received on 05/04/2023 and 05/05/2023 05/28/23: continue current medication and tx plan. Given the patient's length of stay, a general rather than daily summary of interventions from day 1-86 (03/02/23-05/26/23) will follow. Upon admission, the patient's thorazine had to be held and there were attempts to split Haldol dosing given orthostatic hypotension and fall risk with foot fracture. A 304 hearing was held on 03/18/23. Thorazine was reintroduced on 03/17 but did not result in any decrease in Haldol dosing. A diversion meeting was held on 03/28/2023. He was cleared by ortho re: use of boot for foot on 04/01/23. He had declined trials of Clozaril and adjunctive depakote but was amenable to Haldol dec to decrease number of overall pills (04/03 & ). He was not able to taper Haldol PO without an increase in his psychotic symptoms. He was started on a trial of Trilafon on 05/04/23 with benefit. 2nd dose of Haldol dec (400 mg total) was given on 05/04 & 05/05. Trilafon was increased again to 16 mg TID on 05/23/23. Inventory Assets Strengths: taking PO meds, cooperative with tx plan. Able to collaborate with treatment providers. Able to discuss past medications and his response to same Needs: longer term hospitalization, medical monitoring Suicide Risk Level Suicide Risk Level: Moderate (q15 min suicide checks) Suicide Risk Level Comments: The patient remains at moderate risk, primarily because of his persistent intermittent persecutory auditory hallucinations. He again reiterates that he is not experiencing suicidal thoughts, does not have any suicidal intent, and has no plan for suicide. He denies any command AH. He also convincingly assures us that he will notify staff if thoughts of self-harm emerge and has been consistently seeking out staff support when he feels overwhelmed by hallucinations. Risk Factors Assessment Male: Yes : Yes Do You Have Access To A Gun?: No Mental Health Diagnoses: Yes Previous Attempt: Yes Previous Psychiatric Hospitalization: Yes Protective Factors Assessment Confucianism Beliefs: No : No Responsible for Young Children: No Employed: No Stable Relationships: No Supportive Family: No Interval History Identifying Information UMBERTO DAMIAN is a 53-year-old man who lived in a [place] psychiatric usp with a history of schizophrenia, who eloped after returning to his usp and was found by police wandering with concern for dehydration due to hot temperatures/humidity and who turned out to have multiple fractures. He is on a 305 commitment as of 06/10/2023. Chief Complaint "Doing pretty well". Review of Systems Sleep Information Total Hours of Sleep: 5.75 Sleep Comments: Pt requested PRN Vistaril at 0424 Meal Information Percent Meal Consumed - Breakfast: 100 Percent Meal Consumed - Lunch: 100 Percent Meal Consumed - Dinner: 100 Nutrition Comment: Ate all of his meal. Subjective Subjective The patient was seen and assessed and interval progress reviewed in a multidisciplinary team meeting with the treatment team. For details, see the "Impression" section. Overall I spent a total of 27 minutes for this inpatient follow-up including review of chart records, direct evaluation of the patient [id number], counseling the patient, medication education with the patient, risk assessment, discussion during interdisciplinary treatment rounds, and documentation in the electronic health record. Physical Exam Psychiatric Orientation: alert, oriented to person, oriented to place, oriented to time and cooperative Apperance: appropriately dressed and appropriately groomed Eye Contact: good eye contact Motor Behavior: + EPS (dykinetic leg movements) Speech: normal rate/rhythm/volume of speech Affect: euthymic affect and mood congruent with affect Mood: no depressed mood Thought Process: clear/coherent thought process Thought Content: + paranoid (intermittent) and reality based without delusions (for the most part) Suicidal Thoughts: denies suicidal thoughts, denies suicidal plan and denies suicidal intent Homicidal Thoughts: denies homicidal thoughts Hallucinations: + auditory hallucinations (intermittent) and + visual hallucinations (intermittently seeing people in trenchcoats, falling into a garden) Cognition: recent memory grossly intact, remote memory grossly intact, attention grossly intact and language grossly intact Estimated Intelligence: average estimated intelligence and consistent with education level Insight: + limited insight Judgment: + limited judgement Vital Signs (Past 24 Hours) Last Vital Signs Temp 36.9 C 06/20/23 06:33 Pulse 95 H 06/20/23 06:34 Resp 16 06/20/23 06:33 BP 117/79 06/20/23 06:34 Pulse Ox 98 06/12/23 06:27 O2 Del Method Room Air 06/12/23 06:27 Results & Data ([facility]) Current Inpatient Medications Current Inpatient Medications: Current Inpatient Medications Acetaminophen (Acetaminophen 325 Mg Tab) 650 mg PO Q4H PRN PRN Reason: Pain or Fever Stop: 07/08/23 18:04 Al Hydrox/Mg Hydrox/Simethicone (Aluminum/Magnesium Susp 30 Ml Udc) 30 ml PO Q4H PRN PRN Reason: GI Upset Stop: 07/09/23 05:24 Hydroxyzine HCl (Hydroxyzine Hcl 25 Mg Tab) 50 mg PO HSZ PRN PRN Reason: Insomnia Stop: 07/09/23 05:24 Last Admin: 06/20/23 02:26 Dose: 50 mg Hydroxyzine HCl (Hydroxyzine Hcl 25 Mg Tab) 25 mg PO Q4H PRN PRN Reason: Anxiety Stop: 07/09/23 05:24 Last Admin: 06/18/23 04:23 Dose: 25 mg Magnesium Hydroxide (Magnesium Hydroxide Susp 30 Ml Udc) 30 ml PO DAILY PRN PRN Reason: Constipation Stop: 07/09/23 05:24 Perphenazine (Perphenazine 4 Mg Tab) 16 mg PO TID JOSEMANUEL Stop: 07/07/23 13:59 Last Admin: 06/20/23 08:47 Dose: 16 mg Perphenazine (Perphenazine 2 Mg Tablet) 8 mg PO Q8 PRN PRN Reason: psychosis Stop: 07/08/23 18:04 Last Admin: 06/14/23 18:26 Dose: 8 mg Trazodone HCl (Trazodone Hcl 100 Mg Tab) 100 mg PO HS JOSEMANUEL Stop: 06/21/23 21:59 Last Admin: 06/19/23 20:41 Dose: 100 mg Venlafaxine HCl (Venlafaxine Hcl Xr 150 Mg Capxr) 150 mg PO QAM JOSEMANUEL Stop: 07/09/23 08:59 Last Admin: 06/20/23 08:47 Dose: 150 mg Mental Health & Subst Abuse Tx Psychiatrist Name of Psychiatrist: Dr. Umberto Aviles Psychiatrist's Psychiatric Appointment Comment: Telehealth Therapist Name of Therapist: Chary Velasquez Therapist's Therapy Appointment Comment: [address] [place] [address] [id number], [place] [address] Post Discharge Appointments Primary Care Physician Name Of Family Doctor/PCP: You Brooks (1) Schizophrenia Schizophrenia type: unspecified Qualified Code(s): F20.9 - Schizophrenia, unspecified
[2023-06-20] MEDS: PERPHENAZINE 2 MG TAB PO PRN (15:43)
[2023-06-20] MEDS: traZODone HCL 100 MG TAB PO SCH (20:19)
[2023-06-21] MEDS: hydrOXYzine HCl 25 MG TAB PO PRN (05:23)
[2023-06-21] MEDS: VENLAFAXINE HCL XR 150 MG CAPXR PO SCH (08:27)
[2023-06-21] MEDS: PERPHENAZINE 4 MG TAB PO SCH ×3 (08:27→21:40)
[2023-06-21] MEDS: PERPHENAZINE 2 MG TAB PO PRN ×2 (10:03→18:36)
--- NOTE | 2023-06-21 11:24 | Psychiatric Progress Note ---
Date of Service June 21, 2023 Impression / Recommendations Impression 53 yo man with schizophrenia with multiple psychiatric hospitalizations after each has eloped from his custodial. On [facility]. No current bed date. [facility] due to psychosis and limited ability to tolerate peers and hx of aggression with delusions 06/21/2023: Pt wishes me a happy new year, tells me he's "doing OK but really tired of being here". Discussed that his most recent fasting lipid panel was 11/09/2022 and that he's had significant changes in antipsychotic pharmacotherapy since then. He was amenable to my recommendation of repeating fasting labs. 06/20/2023: Pt reports continuing to do "pretty well" in terms of hallucinosis, which has been fairly minimal. He asked about reducing haloperidol dose due to "feeling maybe a little tired". I pointed out that this is not very practical given his use of depot form but that the perphenazine dose could be adjusted easily. I also pointed out that his dyskinetic leg movements seem more noticeable today. He is not at all bothered by, nor very aware of, the dykinesia. He does not want to adjust the perphenazine dose at this time "because things get really bad when the voices are louder" and he doesn't want to risk that. 06/19/2023: I had previously told pt of my plan to be near his hometown in [place] over [place], which he asked me about today. He voices concern that he "didn't get a shot over Amber", referring to haloperidol decanoate. I reassured him that he has not missed a dose. He continues to experience auditory and occasionally visual hallucinations. While in the structured setting of the unit, he is able not to follow hallucinated commands. Requires PRN antipsychotic infrequently. 06/18/23: Impression: stable in therapeutic milieu, would rapidly decompensate outside of hospital; ongoing intermittent aud fall 06/18/23 Plan: continue current meds and tx plan. Last Haldol dec given 05/31/23. Podiatry consult with Dr. Gael choudhary (1) Schizophrenia: Plan 06/21/2023: * continue medication regimen as on 06/19/2023 * fasting lipid panel and glucose in AM 06/20/2023: continue regimen as on 06/19/2023. 06/19/2023: * continue perphenazine 16 mg TID * continue perphenazine 8 mg Q8H PRN psychosis * continue venlafaxine XR 150 mg daily * continue haloperidol decanoate total of 400 mg HAYES over two days - last received 06/01/2023 & 06/02/2023 06/14/23: The patient reports breakthrough auditory hallucinations in the middle of the night last night, but these resolved with a as needed dose of perphenazine. The plan is to continue his current medication regimen as on 06/09/2023. 06/13/24: Continue Medication Regimen as on 06/09/23 06/11/2023: continue medication regimen as on 06/08/2023 06/10/2023: continue medication regimen as on 06/08/2023 06/09/2023: * continue perphenazine 16 mg TID * continue perphenazine 8 mg Q8H PRN psychosis * continue venlafaxine XR 150 mg daily * continue haloperidol decanoate total of 400 mg HAYES over two days - last received 06/01/2023 & 06/02/2023 06/08/2023: * continue perphenazine 16 mg TID * start perphenazine 8 mg Q8H PRN psychosis * continue venlafaxine XR 150 mg daily * continue haloperidol decanoate total of 400 mg HAYES over two days - ordered for 06/01/2023 & 06/02/2023, last received on 06/01/2023 & 05/05/2023 06/07/2023: Continue medication regimen as on 06/02/2023 06/06/2023: Continue medication regimen as on 06/02/2023 06/05/2023: Continue medication regimen as on 06/02/2023 06/04/2023: Continue medication regimen as on 06/02/2023 06/03/2023: Continue medication regimen as on 06/02/2023. Pt has been tapered fully from chlorpromazine, remains on perphenazine, and had haloperidol decanoate on 06/01/2023 and 06/02/2023 06/02/2023: * continue perphenazine 16 mg TID * continue venlafaxine XR 150 mg daily * continue haloperidol decanoate total of 400 mg HAYES over two days - last received on 06/01/2023 & 06/02/2023 06/01/2023: * continue perphenazine 16 mg TID * continue venlafaxine XR 150 mg daily * continue haloperidol decanoate total of 400 mg HAYES over two days - ordered for 06/01/2023 & 06/02/2023, last received on 06/01/2023 & 05/05/2023 05/31/2023: * continue perphenazine 16 mg TID * stop chlorpromazine * continue venlafaxine XR 150 mg daily * continue haloperidol decanoate total of 400 mg HAYES over two days - ordered for 06/01/2023 & 06/02/2023, last received on 05/04/2023 & 05/05/2023 05/30/2023: * continue perphenazine 16 mg TID * decrease chlorpromazine to 50 mg QHS with goal of continuing taper until it's eliminated * continue venlafaxine XR 150 mg daily * continue haloperidol decanoate total of 400 mg HAYES over two days - received on 05/04/2023 and 05/05/2023 05/29/2023: * continue perphenazine 16 mg TID * decrease chlorpromazine to 100 mg QHS with goal of continuing taper until it's eliminated * continue venlafaxine XR 150 mg daily * continue haloperidol decanoate total of 400 mg HAYES over two days - received on 05/04/2023 and 05/05/2023 05/28/23: continue current medication and tx plan. Given the patient's length of stay, a general rather than daily summary of interventions from day 1-86 (03/02/23-05/26/23) will follow. Upon admission, the patient's thorazine had to be held and there were attempts to split Haldol dosing given orthostatic hypotension and fall risk with foot fracture. A 304 hearing was held on 03/18/23. Thorazine was reintroduced on 03/17 but did not result in any decrease in Haldol dosing. A diversion meeting was held on 03/28/2023. He was cleared by ortho re: use of boot for foot on 04/01/23. He had declined trials of Clozaril and adjunctive depakote but was amenable to Haldol dec to decrease number of overall pills (04/03 & ). He was not able to taper Haldol PO without an increase in his psychotic symptoms. He was started on a trial of Trilafon on 05/04/23 with benefit. 2nd dose of Haldol dec (400 mg total) was given on 05/04 & 05/05. Trilafon was increased again to 16 mg TID on 05/23/23. Inventory Assets Strengths: taking PO meds, cooperative with tx plan. Able to collaborate with treatment providers. Able to discuss past medications and his response to same Needs: longer term hospitalization, medical monitoring Suicide Risk Level Suicide Risk Level: Moderate (q15 min suicide checks) Suicide Risk Level Comments: The patient remains at moderate risk, primarily because of his persistent intermittent persecutory auditory hallucinations. He again reiterates that he is not experiencing suicidal thoughts, does not have any suicidal intent, and has no plan for suicide. He denies any command AH. He also convincingly assures us that he will notify staff if thoughts of self-harm emerge and has been consistently seeking out staff support when he feels overwhelmed by halluc inations. Risk Factors Assessment Male: Yes : Yes Do You Have Access To A Gun?: No Mental Health Diagnoses: Yes Previous Attempt: Yes Previous Psychiatric Hospitalization: Yes Protective Factors Assessment Taoism Beliefs: No : No Responsible for Young Children: No Employed: No Stable Relationships: No Supportive Family: No Interval History Identifying Information UMBERTO DAMIAN is a 53-year-old man who lived in a [place] psychiatric custodial with a history of schizophrenia, who eloped after returning to his custodial and was found by police wandering with concern for dehydration due to hot temperatures/humidity and who turned out to have multiple fractures. He is on a 305 commitment as of 06/10/2023. Chief Complaint "I'm still here". Review of Systems Sleep Information Total Hours of Sleep: 6.5 Sleep Comments: Pt requested PRN Vistaril at 0424 Meal Information Percent Meal Consumed - Breakfast: 100 Percent Meal Consumed - Lunch: 100 Percent Meal Consumed - Dinner: 100 Nutrition Comment: Ate all of his meal. Subjective Subjective The patient was seen and assessed and interval progress reviewed in a multidisciplinary team meeting with the treatment team. For details, see the "Impression" section. Overall I spent a total of 33 minutes for this inpatient follow-up including review of chart records, [review of test results, ]direct evaluation of the patient [id number], counseling the patient, [reconciling and ordering medication, ]risk assessment, discussion during interdisciplinary treatment rounds, and documentation in the electronic health record. Physical Exam Psychiatric Orientation: alert, oriented to person, oriented to place, oriented to time and cooperative Apperance: appropriately dressed and appropriately groomed Eye Contact: good eye contact Motor Behavior: + EPS (dykinetic leg movements) Speech: normal rate/rhythm/volume of speech Affect: euthymic affect and mood congruent with affect Mood: + anxious mood; no depressed mood Thought Process: clear/coherent thought process Thought Content: + paranoid (intermittent) and reality based without delusions (for the most part) Suicidal Thoughts: denies suicidal thoughts, denies suicidal plan and denies suicidal intent Homicidal Thoughts: denies homicidal thoughts Hallucinations: + auditory hallucinations (intermittent) and + visual hallucinations (intermittently seeing people in trenchcoats, falling into a garden) Cognition: recent memory grossly intact, remote memory grossly intact, attention grossly intact and language grossly intact Estimated Intelligence: average estimated intelligence and consistent with educa tion level Insight: + limited insight Judgment: + limited judgement Vital Signs (Past 24 Hours) Last Vital Signs Temp 36.4 C L 06/21/23 06:29 Pulse 81 06/21/23 06:29 Resp 16 06/21/23 06:29 BP 113/77 06/21/23 06:29 Pulse Ox 98 06/12/23 06:27 O2 Del Method Room Air 06/12/23 06:27 Results & Data ([facility]) Current Inpatient Medications Current Inpatient Medications: Current Inpatient Medications Acetaminophen (Acetaminophen 325 Mg Tab) 650 mg PO Q4H PRN PRN Reason: Pain or Fever Stop: 07/08/23 18:04 Al Hydrox/Mg Hydrox/Simethicone (Aluminum/Magnesium Susp 30 Ml Udc) 30 ml PO Q4H PRN PRN Reason: GI Upset Stop: 07/09/23 05:24 Hydroxyzine HCl (Hydroxyzine Hcl 25 Mg Tab) 50 mg PO HSZ PRN PRN Reason: Insomnia Stop: 07/09/23 05:24 Last Admin: 06/20/23 02:26 Dose: 50 mg Hydroxyzine HCl (Hydroxyzine Hcl 25 Mg Tab) 25 mg PO Q4H PRN PRN Reason: Anxiety Stop: 07/09/23 05:24 Last Admin: 06/21/23 05:23 Dose: 25 mg Magnesium Hydroxide (Magnesium Hydroxide Susp 30 Ml Udc) 30 ml PO DAILY PRN PRN Reason: Constipation Stop: 07/09/23 05:24 Perphenazine (Perphenazine 4 Mg Tab) 16 mg PO TID JOSEMANUEL Stop: 07/07/23 13:59 Last Admin: 06/21/23 08:27 Dose: 16 mg Perphenazine (Perphenazine 2 Mg Tablet) 8 mg PO Q8 PRN PRN Reason: psychosis Stop: 07/08/23 18:04 Last Admin: 06/21/23 10:03 Dose: 8 mg Trazodone HCl (Trazodone Hcl 100 Mg Tab) 100 mg PO HS JOSEMANUEL Stop: 06/21/23 21:59 Last Admin: 06/20/23 20:19 Dose: 100 mg Venlafaxine HCl (Venlafaxine Hcl Xr 150 Mg Capxr) 150 mg PO QAM JOSEMANUEL Stop: 07/09/23 08:59 Last Admin: 06/21/23 08:27 Dose: 150 mg Mental Health & Subst Abuse Tx Psychiatrist Name of Psychiatrist: Dr. Umberto Aviles Psychiatrist's Psychiatric Appointment Comment: Telehealth Therapist Name of Therapist: Chary Velasquez Therapist's Therapy Appointment Comment: [address] [place] [address] [id number], [place] [address] Post Discharge Appointments Primary Care Physician Name Of Family Doctor/PCP: You Brooks (1) Schizophrenia Schizophrenia type: unspecified Qualified Code(s): F20.9 - Schizophrenia, unspecified
[2023-06-21] MEDS ORDERED: traZODone HCL 100 MG TAB PO SCH (22:00)
[2023-06-22] MEDS: hydrOXYzine HCl 25 MG TAB PO PRN (03:07)
[2023-06-22] MEDS: PERPHENAZINE 4 MG TAB PO SCH ×2 (08:38→13:21)
[2023-06-22] MEDS: VENLAFAXINE HCL XR 150 MG CAPXR PO SCH (08:38)
--- NOTE | 2023-06-22 09:26 | Psychiatric Progress Note ---
Date of Service June 22, 2023 Impression / Recommendations Impression 53 yo man with schizophrenia with multiple psychiatric hospitalizations after each has eloped from his snf. On 305 commitment and accepted to [facility]. No current bed date. [facility] due to psychosis and limited ability to tolerate peers and hx of aggression with delusions 06/22/2023: Pt required PRN perphenazine twice yesterday for intrusive auditory hallucinations. These were reported as having helped, but he describes it as having been "a pretty bad day" yesterday. Discussed again his very brief intervals at the personal custodial between the 3 hospitalizations he had over the 4 months prior to the current admission. None of these was as long as 2 days, so referral to an intensive outpatient program (entertaining for the purposes of argument the fanciful notion that one even existed) would not have prevented the substantial risks and real injuries he experienced. Pt is not enthusiastic about this, nor would one expect him to be, but says he understands the treatment team's rationale for seeking state hospital admission in order to seek the resources and time necessary to ensure a successful community re-entry. 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 Reviewed fasting labs from 2 weeks ago, which show significant improvement in cholesterol vs panel done in October. 06/21/2023: Pt wishes me a happy new year, tells me he's "doing OK but really tired of being here". Discussed his thick, elongated, sharp toenails that do not appear amenable to a typical nail clipper. He reports he's had minor lacerations of the medial contralateral ankle from these. Podiatry consult has been placed, but holidays may have impeded response.. 06/20/2023: Pt reports continuing to do "pretty well" in terms of hallucinosis, which has been fairly minimal. He asked about reducing haloperidol dose due to "feeling maybe a little tired". I pointed out that this is not very practical given his use of depot form but that the perphenazine dose could be adjusted easily. I also pointed out that his dyskinetic leg movements seem more noticeable today. He is not at all bothered by, nor very aware of, the dykinesia. He does not want to adjust the perphenazine dose at this time "because things get really bad when the voices are louder" and he doesn't want to risk that. 06/19/2023: I had previously told pt of my plan to be near his hometown in [place] over [place], which he asked me about today. He voices concern that he "didn't get a shot over [place]", referring to haloperidol decanoate. I reassured him that he has not missed a dose. He continues to experience auditory and occasionally visual hallucinations. While in the structured setting of the unit, he is able not to follow hallucinated commands. Requires PRN antipsychotic infrequently. 06/18/23: Impression: stable in therapeutic milieu, would rapidly decompensate outside of hospital; ongoing intermittent aud fall 06/18/23 Plan: continue current meds and tx plan. Last Haldol dec given 05/31/23. Podiatry consult with Dr. Gael choudhary (1) Schizophrenia: Plan 06/22/2023: * continue medication regimen as on 06/19/2023 * resubmit podiatry consultation request 06/21/2023: continue medication regimen as on 06/19/2023 06/20/2023: continue regimen as on 06/19/2023. 06/19/2023: * continue perphenazine 16 mg TID * continue perphenazine 8 mg Q8H PRN psychosis * continue venlafaxine XR 150 mg daily * continue haloperidol decanoate total of 400 mg HAYES over two days - last recei belen 06/01/2023 & 06/02/2023 06/14/23: The patient reports breakthrough auditory hallucinations in the middle of the night last night, but these resolved with a as needed dose of perphenazine. The plan is to continue his current medication regimen as on 06/09/2023. 06/13/24: Continue Medication Regimen as on 06/09/23 06/11/2023: continue medication regimen as on 06/08/2023 06/10/2023: continue medication regimen as on 06/08/2023 06/09/2023: * continue perphenazine 16 mg TID * continue perphenazine 8 mg Q8H PRN psychosis * continue venlafaxine XR 150 mg daily * continue haloperidol decanoate total of 400 mg HAYES over two days - last received 06/01/2023 & 06/02/2023 06/08/2023: * continue perphenazine 16 mg TID * start perphenazine 8 mg Q8H PRN psychosis * continue venlafaxine XR 150 mg daily * continue haloperidol decanoate total of 400 mg HAYES over two days - ordered for 06/01/2023 & 06/02/2023, last received on 06/01/2023 & 05/05/2023 06/07/2023: Continue medication regimen as on 06/02/2023 06/06/2023: Continue medication regimen as on 06/02/2023 06/05/2023: Continue medication regimen as on 06/02/2023 06/04/2023: Continue medication regimen as on 06/02/2023 06/03/2023: Continue medication regimen as on 06/02/2023. Pt has been tapered fully from chlorpromazine, remains on perphenazine, and had haloperidol decanoate on 06/01/2023 and 06/02/2023 06/02/2023: * continue perphenazine 16 mg TID * continue venlafaxine XR 150 mg daily * continue haloperidol decanoate total of 400 mg HAYES over two days - last received on 06/01/2023 & 06/02/2023 06/01/2023: * continue perphenazine 16 mg TID * continue venlafaxine XR 150 mg daily * continue haloperidol decanoate total of 400 mg HAYES over two days - ordered for 06/01/2023 & 06/02/2023, last received on 06/01/2023 & 05/05/2023 05/31/2023: * continue perphenazine 16 mg TID * stop chlorpromazine * continue venlafaxine XR 150 mg daily * continue haloperidol decanoate total of 400 mg HAYES over two days - ordered for 06/01/2023 & 06/02/2023, last received on 05/04/2023 & 05/05/2023 05/30/2023: * continue perphenazine 16 mg TID * decrease chlorpromazine to 50 mg QHS with goal of continuing taper until it's eliminated * continue venlafaxine XR 150 mg daily * continue haloperidol decanoate total of 400 mg HAYES over two days - received on 05/04/2023 and 05/05/2023 05/29/2023: * continue perphenazine 16 mg TID * decrease chlorpromazine to 100 mg QHS with goal of continuing taper until it's eliminated * continue venlafaxine XR 150 mg daily * continue haloperidol decanoate total of 400 mg HAYES over two days - received on 05/04/2023 and 05/05/2023 05/28/23: continue current medication and tx plan. Given the patient's length of stay, a general rather than daily summary of interventions from day 1-86 (03/02/23-05/26/23) will follow. Upon admission, the patient's thorazine had to be held and there were attempts to split Haldol dosing given orthostatic hypotension and fall risk with foot fracture. A 304 hearing was held on 03/18/23. Thorazine was reintroduced on 03/17 but did not result in any decrease in Haldol dosing. A diversion meeting was held on 03/28/2023. He was cleared by ortho re: use of boot for foot on 04/01/23. He had declined trials of Clozaril and adjunctive depakote but was amenable to Haldol dec to decrease number of overall pills (04/03 & ). He was not able to taper Haldol PO without an increase in his psychotic symptoms. He was started on a trial of Trilafon on 05/04/23 with benefit. 2nd dose of Haldol dec (400 mg total) was given on 05/04 & 05/05. Trilafon was increased again to 16 mg TID on 05/23/23. Inventory Assets Strengths: taking PO meds, cooperative with tx plan. Able to collaborate with treatment providers. Able to discuss past medications and his response to same Needs: longer term hospitalization, medical monitoring Suicide Risk Level Suicide Risk Level: Moderate (q15 min suicide checks) Suicide Risk Level Comments: The patient remains at moderate risk, primarily because of his persistent intermittent persecutory auditory hallucinations. He again reiterates that he is not experiencing suicidal thoughts, does not have any suicidal intent, and has no plan for suicide. He denies any command AH. He also convincingly assures us that he will notify staff if thoughts of self-harm emerge and has been consistently seeking out staff support when he feels overwhelmed by hallucinations. Risk Factors Assessment Male: Yes : Yes Do You Have Access To A Gun?: No Mental Health Diagnoses: Yes Previous Attempt: Yes Previous Psychiatric Hospitalization: Yes Protective Factors Assessment Moravian Beliefs: No : No Responsible for Young Children: No Employed: No Stable Relationships: No Supportive Family: No Interval History Identifying Information UMBERTO DAMIAN is a 53-year-old man who lived in a [place] psychiatric snf with a history of schizophrenia, who eloped after returning to his snf and was found by police wandering with concern for dehydration due to hot temperatures/humidity and who turned out to have multiple fractures. He is on a 305 commitment as of 06/10/2023. Chief Complaint "Not so good yesterday". Review of Systems Sleep Information Total Hours of Sleep: 7.15 Sleep Comments: Pt requested PRN Vistaril at 0300 Meal Information Percent Meal Consumed - Breakfast: 100 Percent Meal Consumed - Lunch: 100 Percent Meal Consumed - Dinner: 100 Nutrition Comment: Ate all of his meal. Subjective Subjective The patient was seen and assessed and interval progress reviewed in a multidisciplinary team meeting with the treatment team. For details, see the "Impression" section. Overall I spent a total of 27 minutes for this inpatient follow-up including review of chart records, review of test results, direct evaluation of the patient [id number], counseling the patient, medication education with the patient, risk assessment, discussion during interdisciplinary treatment rounds, and documentation in the electronic health record. Physical Exam Psychiatric Orientation: alert, oriented to person, oriented to place, oriented to time and cooperative Apperance: appropriately dressed and appropriately groomed Eye Contact: good eye contact Motor Behavior: + EPS (dykinetic leg movements) Speech: normal rate/rhythm/volume of speech Affect: + constricted affect (but with a smile) and mood congruent with affect Mood: no depressed mood Thought Process: clear/coherent thought process Thought Content: + paranoid (intermittent) and reality based without delusions (for the most part) Suicidal Thoughts: denies suicidal thoughts, denies suicidal plan and denies suicidal intent Homicidal Thoughts: denies homicidal thoughts Hallucinations: + auditory hallucinations (intermittent) and + visual hallucinations (intermittently seeing people in trenchcoats, falling into a garden) Cognition: recent memory grossly intact, remote memory grossly intact, attention grossly intact and language grossly intact Estimated Intelligence: average estimated intelligence and consistent with education level Insight: + limited insight Judgment: + limited judgement Vital Signs (Past 24 Hours) Last Vital Signs Temp 36.4 C 06/22/23 06:17 Pulse 68 06/22/23 06:17 Resp 18 06/22/23 06:17 BP 102/69 06/22/23 06:17 Pulse Ox 96 06/22/23 06:17 O2 Del Method Room Air 06/22/23 06:17 Results & Data ([facility]) Current Inpatient Medications Current Inpatient Medications: Current Inpatient Medications Acetaminophen (Acetaminophen 325 Mg Tab) 650 mg PO Q4H PRN PRN Reason: Pain or Fever Stop: 07/08/23 18:04 Al Hydrox/Mg Hydrox/Simethicone (Aluminum/Magnesium Susp 30 Ml Udc) 30 ml PO Q4H PRN PRN Reason: GI Upset Stop: 07/09/23 05:24 Hydroxyzine HCl (Hydroxyzine Hcl 25 Mg Tab) 50 mg PO HSZ PRN PRN Reason: Insomnia Stop: 07/09/23 05:24 Last Admin: 06/20/23 02:26 Dose: 50 mg Hydroxyzine HCl (Hydroxyzine Hcl 25 Mg Tab) 25 mg PO Q4H PRN PRN Reason: Anxiety Stop: 07/09/23 05:24 Last Admin: 06/22/23 03:07 Dose: 25 mg Magnesium Hydroxide (Magnesium Hydroxide Susp 30 Ml Udc) 30 ml PO DAILY PRN PRN Reason: Constipation Stop: 07/09/23 05:24 Perphenazine (Perphenazine 4 Mg Tab) 16 mg PO TID JOSEMANUEL Stop: 07/07/23 13:59 Last Admin: 06/22/23 08:38 Dose: 16 mg Perphenazine (Perphenazine 2 Mg Tablet) 8 mg PO Q8 PRN PRN Reason: psychosis Stop: 07/08/23 18:04 Last Admin: 06/21/23 18:36 Dose: 8 mg Trazodone HCl (Trazodone Hcl 100 Mg Tab) 100 mg PO HS [facility] Stop: 07/21/23 21:59 Last Admin: 06/21/23 21:39 Dose: 100 mg Venlafaxine HCl (Venlafaxine Hcl Xr 150 Mg Capxr) 150 mg PO QAM [facility] Stop: 07/09/23 08:59 Last Admin: 06/22/23 08:38 Dose: 150 mg Mental Health & Subst Abuse Tx Psychiatrist Name of Psychiatrist: Dr. Umberto Aviles Psychiatrist's Psychiatric Appointment Comment: Telehealth Therapist Name of Therapist: Chary Velasquez Therapist's Therapy Appointment Comment: [address] [place] [address] [id number], [place] [address] Post Discharge Appointments Primary Care Physician Name Of Family Doctor/PCP: You Brooks (1) Schizophrenia Schizophrenia type: unspecified Qualified Code(s): F20.9 - Schizophrenia, unspecified
--- NOTE | 2023-06-22 11:10 | Discharge Summary ---
Date of Service June 22, 2023 History of Present Illness as per Dr. Smith on 02/26 while boarding in ED: Umberto is well known to the consult and psychiatry service given recent inpatient admission in October 2022 and just followed on the consult service from 02/16/2023 - 02/24/2023 after eloping from his correction and hurting his foot and found to have RSV. After being discharged from the hospital on the morning of 02/24/2023 he apparently returned to his correction and shortly thereafter eloped with a bag of belongings. He was brought to the ED later that evening by police on a 302 petition due to concern that he hadn't been eating or drinking that day and was out in the heat. Since arriving back to the ED he has been cooperative. Tells me he left his correction "cause I wasn't wanted there" but cannot provide any more specifics or examples of this. He continues to find his medication helpful stating "they're good" and denies any SI nor HI nor hallucinations. In past has experienced command AH but he denies this. No overt delusions. Unclear if any paranoia related to his correction but states he feels safe in the ED. The patient remained cooperative in the ED. Thorazine was ultimately held due to some episodes of orthostatic hypotension which required fluid boluses. He was seen by hospitalist service and cleared by ortho prior to coming to our unit. Today he denies dizziness, is ambulating well to the BR with his hard shoe. Physical Exam Psychiatric Orientation: alert, oriented to person, oriented to place, oriented to time and cooperative Apperance: appropriately dressed and appropriately groomed Eye Contact: + fair eye contact Motor Behavior: no abnormal motor movements and + EPS (dykinetic leg movements) Speech: normal rate/rhythm/volume of speech Affect: + constricted affect (but with a smile) and mood congruent with affect Mood: + anxious mood; no depressed mood Thought Process: + concrete thought process Thought Content: + paranoid (intermittent) and reality based without delusions (for the most part) Suicidal Thoughts: denies suicidal thoughts, denies suicidal plan and denies suicidal intent Homicidal Thoughts: denies homicidal thoughts Hallucinations: + auditory hallucinations (intermittent) and + visual hallucinations (intermittently seeing people in trenchcoats, falling into a garden) Cognition: recent memory grossly intact, remote memory grossly intact, attention grossly intact and language grossly intact Estimated Intelligence: average estimated intelligence and consistent with education level Insight: + limited insight Judgment: + limited judgement Vital Signs (Past 24 Hours) Last Vital Signs Temp 36.4 C 06/22/23 06:17 Pulse 68 06/22/23 06:17 Resp 18 06/22/23 06:17 BP 102/69 06/22/23 06:17 Pulse Ox 96 06/22/23 06:17 O2 Del Method Room Air 06/22/23 06:17 See admission H&P and DOD assessment. Principal Diagnosis Schizophrenia Psychiatric Data See daily stay summary. In short, safety was maintained and the patient was consistently cooperative with care. Medication changes included starting haloperidol decanoate 400 mg IM (given as 200 mg IM on each of 2 successive days) every 4 weeks, switch from chlorpromazine to perphenazine and titration to 16 mg TID, and increase of venlafaxine to 150 mg daily and they tolerated this well. A short time ago we were notified that pt had appealed his extended commitment unbeknownst to us and that a field cashier had just upheld that appeal. As a result, pt cannot remain here without his consent. He asked if he could "stay for a little while to sort things out" in terms of where he might stay. He was told that we very much hoped he would but that in order for him to remain he'd have to sign consent for voluntary admission. I reminded him that I've testified 3 times during his stay that he has done or said nothing since admission that would provide a basis for involuntary admission and that nothing that occurred prior to the involuntary commitment could be used. I assured him that if he were to sign consent for admission, my strong personal belief is that I'm obligated to discharge him when he asks unless something major changes (which given that that hasn't happened during his 113-day stay seemed almost indescribably unlikely to me). I also reminded him that the team's overriding concern from the outset has been that he hasn't had a safe and appropriate place to go following discharge and that, since his room where he'd previously stayed had been released, he now literally has no place at all to which to go, safe and appropriate or not. He remained unwilling to sign consent for admission. Team members have been scrambling to do as much as possible to reduce his risks after leaving the hospital. He might be able to obtain a place at a personal [facility] later in the week so we're hoping to be able to get him hotel accommodation until then. Staff have phoned pharmacies to find one that currently has perphenazine in stock and were able to find one, so he can fill discharge prescriptions today. He will next require injections of haloperidol decanoate 400 mg in 2 equal divided doses on successive days on 2023 and 30 June 2023. Day of Discharge Assessment Today the patient voices readiness for discharge. They note improvement in mood and psychotic symptoms and have from admission denied thoughts to harm self or others. Thoughts remain organized and they are improved from admission. His chronic psychosis is under good control. He agrees to take mediations as prescribed and keep follow-up appointments. He is stable for discharge though I remain very concerned about realistic availability of any step-down levels of care (such as partial hospitalization or in-person intensive outpatient treatment) in this area. Transition of Care Transition Of Care Record: was reviewed with the patient Advance Directives Advance Directives Information Provided: Yes Advance Directives: No Mental Health Advance Directive: No Advance Directives on File: No Living Will: No Power of Backend Developer: No Advance Directives Reason:: Declines as Mental Health Visit. Suicide Risk Level Suicide Risk Level Comments: Suicide risk at discharge is deemed low as the patient is no longer requiring 24-hr monitoring, has a safety plan, and is free of suicidal ideation at discharge. Risk Factors Assessment Male: Yes : Yes Do You Have Access To A Gun?: No Mental Health Diagnoses: Yes Previous Attempt: Yes Previous Psychiatric Hospitalization: Yes Hopelessness: No Protective Factors Assessment Protestant Beliefs: No : No Responsible for Young Children: No Employed: No Stable Relationships: No Supportive Family: No Good Rapport with Provider: Yes Tobacco Cessation at Discharge Tobacco Cessation Medication Prescribed at Discharge: Not Applicable/Non-Smoker Antipsychotic Medications The patient is continuing 2 antipsychotics due to a history of a minimum of 3 failed trials of monotherapy, including aripiprazole, chlorpromazine, haloperidol, olanzapine, paliperidone, quetiapine, risperidone, ziprasidone Total Time Total Time Spent: Greater Than 30 Minutes (117) Discharge Data Consultations 10/11/23 10:13 Consult Orthopedic Surgery Routine 06/18/23 11:55 Consult Podiatry Routine Lab Results 02/24/23 02/24/23 02/25/23 21:33 22:18 01:07 WBC 14.08 H RBC 3.52 L Hgb 11.1 L Hct 31.7 L MCV 90.1 MCH 31.5 MCHC 35.0 RDW Std Deviation 44.8 RDW Coeff of [place] 13.6 Plt Count 367 MPV 9.0 L Immature Gran % (Auto) 1.1 Neut % (Auto) 88.4 Lymph % (Auto) 4.7 [place] % (Auto) 5.7 Eos % (Auto) 0.0 Baso % (Auto) 0.1 Neut # (Auto) 12.45 H Lymph # (Auto) 0.66 L [place] # (Auto) 0.80 H Eos # (Auto) 0.00 Baso # (Auto) 0.02 Immature Gran # (Auto) 0.15 Sodium 130 L 133 L Potassium 4.5 4.1 Chloride 94 L 100 Carbon Dioxide 25 27 Anion Gap 11 6 BUN 33 H 29 H Creatinine 1.54 H 0.98 D Est Cr Clr Drug Dosing Not Reportable Not Reportable Est GFR ( Amer) 59.2 102.3 Est GFR (Non-Af Amer) 51.1 88.3 BUN/Creatinine Ratio 21.4 H 29.6 H Glucose 105 H 99 Estimat Average Glucose Hemoglobin A1c Calcium 10.1 9.1 Total Bilirubin 0.5 AST 27 ALT 23 Alkaline Phosphatase 126 H Total Creatine Kinase Total Protein 7.2 Albumin 4.1 Globulin 3.1 Albumin/Globulin Ratio 1.3 Triglycerides Cholesterol LDL Cholesterol, Calc VLDL Cholesterol, Calc HDL Cholesterol Cholesterol/HDL Ratio TSH 1.987 Urine Color Yellow Urine Appearance Clear Urine pH 6.5 Ur Specific [place] 1.015 Urine Protein Negative Urine Glucose (UA) Negative Urine Ketones Negative Urine Blood Negative Urine Nitrite Negative Urine Bilirubin Negative Urine Urobilinogen Negative Ur Leukocyte Esterase Negative Salicylates < 3.0 L Urine Opiates Screen Neg Ur Methadone, Qual Neg Acetaminophen < 3 L Urine Barbiturates Neg Ur Phencyclidine (PCP) Neg U Amphetamin/Meth Scrn Neg MDMA (Ecstasy) Screen Neg U Benzodiazepines Scrn Neg Ur Cocaine Metabolite Neg U Marijuana (THC) Screen Neg Ethyl Alcohol mg/dL < 10.0 HIV (1&2) Ag & Ab Conf Cancelled SARS-CoV-2, RNA, NAAT NEGATIVE 02/28/23 05/27/23 06/05/23 18:11 07:58 07:01 WBC 6.54 RBC 3.36 L Hgb 10.6 L Hct 31.2 L MCV 92.9 MCH 31.5 MCHC 34.0 RDW Std Deviation 45.4 RDW Coeff of [place] 13.4 Plt Count 328 MPV 8.8 L Immature Gran % (Auto) 0.5 Neut % (Auto) 59.8 Lymph % (Auto) 31.3 [place] % (Auto) 5.0 Eos % (Auto) 2.3 Baso % (Auto) 1.1 Neut # (Auto) 3.91 Lymph # (Auto) 2.05 [place] # (Auto) 0.33 Eos # (Auto) 0.15 Baso # (Auto) 0.07 Immature Gran # (Auto) 0.03 Sodium 138 139 Potassium 3.8 4.3 Chloride 105 106 Carbon Dioxide 28 29 Anion Gap 5 4 BUN 22 Creatinine 0.69 Est Cr Clr Drug Dosing 118.7 Est GFR ( Amer) 126.5 Est GFR (Non-Af Amer) 109.1 BUN/Creatinine Ratio 31.9 H Glucose 129 H Estimat Average Glucose 108 Hemoglobin A1c 5.4 Calcium 8.5 L Total Bilirubin 0.3 AST 12 L ALT 13 Alkaline Phosphatase 133 H Total Creatine Kinase 76 Total Protein 6.1 Albumin 3.5 Globulin 2.6 Albumin/Globulin Ratio 1.3 Triglycerides 124 Cholesterol 158 LDL Cholesterol, Calc 95 VLDL Cholesterol, Calc 25 HDL Cholesterol 38 Cholesterol/HDL Ratio 4.2 TSH Urine Color Urine Appearance Urine pH Ur Specific [place] Urine Protein Urine Glucose (UA) Urine Ketones Urine Blood Urine Nitrite Urine Bilirubin Urine Urobilinogen Ur Leukocyte Esterase Salicylates Urine Opiates Screen Ur Methadone, Qual Acetaminophen Urine Barbiturates Ur Phencyclidine (PCP) U Amphetamin/Meth Scrn MDMA (Ecstasy) Screen U Benzodiazepines Scrn Ur Cocaine Metabolite U Marijuana (THC) Screen Ethyl Alcohol mg/dL HIV (1&2) Ag & Ab Conf SARS-CoV-2, RNA, NAAT Hospital Course (1) Schizophrenia: Plan 06/22/2023: * continue medication regimen as on 06/19/2023 * resubmit podiatry consultation request 06/21/2023: continue medication regimen as on 06/19/2023 06/20/2023: continue regimen as on 06/19/2023. 06/19/2023: * continue perphenazine 16 mg TID * continue perphenazine 8 mg Q8H PRN psychosis * continue venlafaxine XR 150 mg daily * continue haloperidol decanoate total of 400 mg HAYES over two days - last received 06/01/2023 & 06/02/2023 06/14/23: The patient reports breakthrough auditory hallucinations in the middle of the night last night, but these resolved with a as needed dose of perphenazine. The plan is to continue his current medication regimen as on 06/09/2023. 06/13/24: Continue Medication Regimen as on 06/09/23 06/11/2023: continue medication regimen as on 06/08/2023 06/10/2023: continue medication regimen as on 06/08/2023 06/09/2023: * continue perphenazine 16 mg TID * continue perphenazine 8 mg Q8H PRN psychosis * continue venlafaxine XR 150 mg daily * continue haloperidol decanoate total of 400 mg HAYES over two days - last received 06/01/2023 & 06/02/2023 06/08/2023: * continue perphenazine 16 mg TID * start perphenazine 8 mg Q8H PRN psychosis * continue venlafaxine XR 150 mg daily * continue haloperidol decanoate total of 400 mg HAYES over two days - ordered for 06/01/2023 & 06/02/2023, last received on 06/01/2023 & 05/05/2023 06/07/2023: Continue medication regimen as on 06/02/2023 06/06/2023: Continue medication regimen as on 06/02/2023 06/05/2023: Continue medication regimen as on 06/02/2023 06/04/2023: Continue medication regimen as on 06/02/2023 06/03/2023: Continue medication regimen as on 06/02/2023. Pt has been tapered fully from chlorpromazine, remains on perphenazine, and had haloperidol decanoate on 06/01/2023 and 06/02/2023 06/02/2023: * continue perphenazine 16 mg TID * continue venlafaxine XR 150 mg daily * continue haloperidol decanoate total of 400 mg HAYES over two days - last received on 06/01/2023 & 06/02/2023 06/01/2023: * continue perphenazine 16 mg TID * continue venlafaxine XR 150 mg daily * continue haloperidol decanoate total of 400 mg HAYES over two days - ordered for 06/01/2023 & 06/02/2023, last received on 06/01/2023 & 05/05/2023 05/31/2023: * continue perphenazine 16 mg TID * stop chlorpromazine * continue venlafaxine XR 150 mg daily * continue haloperidol decanoate total of 400 mg HAYES over two days - ordered for 06/01/2023 & 06/02/2023, last received on 05/04/2023 & 05/05/2023 05/30/2023: * continue perphenazine 16 mg TID * decrease chlorpromazine to 50 mg QHS with goal of continuing taper until it's eliminated * continue venlafaxine XR 150 mg daily * continue haloperidol decanoate total of 400 mg HAYES over two days - received on 05/04/2023 and 05/05/2023 05/29/2023: * continue perphenazine 16 mg TID * decrease chlorpromazine to 100 mg QHS with goal of continuing taper until it's eliminated * continue venlafaxine XR 150 mg daily * continue haloperidol decanoate total of 400 mg HAYES over two days - received on 05/04/2023 and 05/05/2023 05/28/23: continue current medication and tx plan. Given the patient's length of stay, a general rather than daily summary of interventions from day 1-86 (03/02/23-05/26/23) will follow. Upon admission, the patient's thorazine had to be held and there were attempts to split Haldol dosing given orthostatic hypotension and fall risk with foot fracture. A 304 hearing was held on 03/18/23. Thorazine was reintroduced on 03/17 but did not result in any decrease in Haldol dosing. A diversion meeting was held on 03/28/2023. He was cleared by ortho re: use of boot for foot on 04/01/23. He had declined trials of Clozaril and adjunctive depakote but was amenable to Haldol dec to decrease number of overall pills (04/03 & ). He was not able to taper Haldol PO without an increase in his psychotic symptoms. He was started on a trial of Trilafon on 05/04/23 with benefit. 2nd dose of Haldol dec (400 mg total) was given on 05/04 & 05/05. Trilafon was increased again to 16 mg TID on 05/23/23. Mental Health & Subst Abuse Tx Psychiatrist Name of Psychiatrist: Lala Rogers - Liya Dowell PA-C Psychiatrist's Date Of Appointment With Psychiatric Provider: 06/22/23 Time of Appointment with Psychiatrist: 2:20 PM Psychiatric Appointment Comment: [address] [facility], [place] [address] Psychiatrist Release of Information: Obtained, Reviewed and Signed Therapist Name of Therapist: Chary Velasquez Therapist's Therapy Appointment Comment: [address] [place] [address] [address], [place] [address] [employer]erry [employer] Agent Name of [place]erry [employer] Agent: [facility] Phone Number for Ferry Terminal Agent: [phone] Case Management Appointment Comment: A case aide has been assigned and will follow-up with you directly. [employer]erry [employer] Agent Release of Information: Obtained, Reviewed and Signed Post Discharge Appointments Primary Care Physician Name Of Family Doctor/PCP: Annika Patel Physician - [facility] Date of Future Appointment with PCP: 06/24/23 Time of Appointment with PCP: 11:00 AM Provider Appointment Comment: [address] [place] [address] Smoking Cessation Counseling Tobacco Cessation Medication Prescribed at Discharge: Not Applicable/Non-Smoker Other #1: Name of Aftercare Appointment: Annika Patel Physician [place] Phone Number of Aftercare Appointment: [phone] Date of Aftercare Appointment: 07/14/23 Time of Aftercare Appointment: arrive at 9:15 AM Aftercare Appointment Comment: [address] [facility], [place] [address] Contact Information Discharge Phone Number: Unknown Discharge Address: [place], [place] Discharge Plan Discharge Items Patient Disposition: Home - Self-Care Reason For Visit: SCHIZOPHRENIA Discharge Diagnosis: Schizophrenia Activity: Resume your previous activity Non-emergency contact: Primary Care Provider and Psychiatrist Call non-emergency contact if: you have any medication questions and your symptoms worsen Follow-up/Referrals: PCP,NO [Primary Care Provider] - Diet: Regular Addtl Attending Provider Instructions: SPECIAL CARE INSTRUCTIONS: 1. Follow through with your scheduled aftercare appointments. If unable to keep an appointment, please call to reschedule. 2. Take your medication only as prescribed. Medication should not be changed or stopped without the approval of your doctor. In the event of worsening symptoms or concerns about side effects, contact your doctor immediately. 3. Utilize new healthy coping skills, anger management skills, and stress management skills learned during your hospitalization. Journal feelings and process them with a support person. Identify stressors or situations that may result in relapse, deterioration or inappropriate behaviors and develop a plan to deal with those issues. 4. If your coping skills are ineffective and you are in crisis, contact your outpatient providers for direction. If unable to reach your providers, please call the [facility] CRISIS LINE AT , go to the [facility] walk-in center at [address] [facility] [facility], [address], [place], or go to the closest Emergency Room. 5. Avoid alcohol and un-prescribed drugs. 6. You have been provided with the Mental Health Advance Directives Pamphlet for your review. 7. Your condition is stable for discharge to outpatient level of care, but recovery is an ongoing process. Ifthoughts to harm yourself or others return, follow the safety plan developed during your stay. Planning for a safe return home includes securing weapons. Our treatment team recommends weaponsbe removed from the home until your outpatient provider reassesses your progress. In rare cases where the items themselvescannot be removed, guns and ammunitionshould be secured separatelyand keys stored by a reliable personoutside of the home. If you were admitted on an involuntary commitment, the police or other legal authorities may be involved in this process. AFTERCARE APPOINTMENTS: * Please call your insurance company prior to your scheduled appointment to confirm your aftercare providers are covered. Take your insurance information to your appointments. WHO TO CALL AND WHEN: Medical Emergencies: For questions or emergencies related to your hospital stay, please contact the Inpatient Behavioral Health Unit at [phone]. A friction welding machine operator is on-call 11/01 for the Behavioral Health Unit for emergencies At any time you feel your situation is an emergency, you may also call 911 immediately. Pending Studies at Discharge: No Stand-Alone Forms: My [facility], Smoking Cessation Medications and DC Order Prescriptions: New perphenazine 8 mg tablet 16 mg PO TID 30 Days Qty: 180 0RF venlafaxine 150 mg Capsule,Extended Release 24hr 150 mg PO QAM 30 Days Qty: 30 0RF trazodone 100 mg Tablet 100 mg PO HS 30 Days Qty: 30 0RF haloperidol decanoate 50 mg/mL Solution 200 mg IM Q4WK Qty: 0 0RF haloperidol decanoate 50 mg/mL Solution 200 mg IM Q4WK Qty: 0 0RF Continued pantoprazole 40 mg tablet,delayed release (DR/EC) 40 mg PO QAM Rx Instructions: Med rec finished per discharge information summary from 24 Feb 2023. Last dose most likely on Feb. docusate sodium 100 mg capsule 200 mg PO BID Rx Instructions: Med rec finished per discharge information summary from 24 Feb 2023. Last dose most likely on Feb. cholecalciferol (vitamin D3) [Vitamin D3] 50 mcg (2,000 unit) tablet 50 mcg PO QAM Rx Instructions: Med rec finished per discharge information summary from 24 Feb 2023. Last dose most likely on Feb. Discontinued benztropine 1 mg tablet 1 mg PO HS Rx Instructions: Med rec finished per discharge information summary from 24 Feb 2023. Last dose most likely on Feb in the evening, prior to DC, as pt was brought to the ER on Feb. venlafaxine 75 mg capsule,extended release 24hr 75 mg PO QAM Rx Instructions: Med rec history taken from discharge summary, dated 24 Feb 2023. Last dose most likely on Feb prior to discharge as pt does not remember if he took his meds on 24 Feb 2023. cyproheptadine 4 mg tablet 4 mg PO TID Rx Instructions: Med rec finished per discharge summary information from 24 Feb 2023. Last dose most likely on Feb. Daily Multivitamin-Minerals Tablet 1 tab PO QAM Rx Instructions: Med rec finished per discharge summary information from 24 Feb 2023. Last dose most likely on Feb. haloperidol 5 mg Tablet 20 mg PO BID Qty: 60 0RF Rx Instructions: Med rec finished per discharge information summary from 24 Feb 2023. Last dose most likely on evening of Feb. chlorpromazine 25 mg Tablet 50 mg PO TID Qty: 100 0RF Rx Instructions: Med rec finished per discharge information summary from 24 Feb 2023. Last dose most likely on Feb. Discharge Orders: Discharge Order (Routine); Ordered 06/22/23 Ordered By: Ehsan Moralez Admission Data Admit Date/Time: 03/01/23 15:59 Attending Provider: Ehsan Moralez Admit Provider: Zahida Levin Primary Care Provider: PCP,NO Other Providers: Zahida Levin; Fuad Jackson; Nestor Mayo Coding Level of Care Code 09167 D/C day mgmt > 30 min Diagnoses Schizophrenia, unspecified type F20.9 Schizophrenia type: unspecified Time Spent (min) 117
[2023-06-22] MEDS: PERPHENAZINE 2 MG TAB PO PRN (12:14)
[2023-06-29] MEDS ORDERED: HALOPERIDOL DECANOATE INJ 50 MG/ML VIAL IM SCH (09:00)
[2023-06-30] MEDS ORDERED: HALOPERIDOL DECANOATE INJ 50 MG/ML VIAL IM SCH (09:00)
== END 2023-06-22 13:27 | disposition home or self-care (01) | DRG 885 ==
LOC: ED 21:18 → SUATTDRO 03-01 15:59 → 3S 03-01 15:59